=== PATIENT | female | born 1960 | race Hispanic/Latino ===

== ENCOUNTER 2019-01-11 11:30 | Emergency (ER) | payer OTHER ==
[2019-01-11] MEDS ORDERED: KEPPRA 1,000 MG/NS 0.75% 100ML 1,000 MG/100 ML BAG IV ONE (11:50)
[2019-01-11] MEDS ORDERED: NACL 0.9% 1000 ML 1,000 ML IV ONE (11:50)
--- NOTE | 2019-01-11 11:54 | Emergency Department Report ---
ED Seizure HPI - General Stated Complaint: AMS/POSS SEIZURES Time Seen by Provider: 01/11/19 11:50 - History of Present Illness Initial Comments: Patient is a 58-year-old female with history of multiple sclerosis. Patient brought to the emergency room for evaluation of a possible new onset seizure. Patient sister stated that patient was shaking hard and contracted then eyes rolled back for approximately one minutes and then patient went to sleep after that. By time EMS arrived patient is awake alert and oriented 3. Patient continued to be alert and oriented 3 in the ER. Patient stated that she does not remember anything from what happened except that she found herself in an ambulance coming to the ER. Patient does not have any history of seizure before. Patient denied any fever, neck pain, chest pain, shortness of breaths. MD Complaint: seizure - Related Data Previous Rx's Medication Instructions Recorded Last Taken Type Ciprofloxacin HCl [Ciprofloxacin 500 mg PO Q12H #14 tab 01/11/19 Unknown Rx TAB] levETIRAcetam [Keppra TAB] 500 mg PO BID #60 tablet 01/11/19 Unknown Rx Allergies Allergy/AdvReac Type Severity Reaction Status Date / Time Penicillins Allergy Mild Rash Verified 01/11/19 12:20 ED Review of Systems ROS: Stated complaint: AMS/POSS SEIZURES Other details as noted in HPI Comment: All other systems reviewed and negative Constitutional: denies: chills, fever Respiratory: denies: cough, orthopnea, shortness of breath, SOB with exertion, SOB at rest, wheezing Cardiovascular: denies: chest pain, palpitations Gastrointestinal: denies: abdominal pain, nausea, vomiting, diarrhea, constipation, hematemesis, melena, hematochezia Musculoskeletal: denies: back pain Neurological: denies: headache ED Past Medical Hx - Medications Home Medications: Home Medications Medication Instructions Recorded Confirmed Last Taken Type Ciprofloxacin HCl [Ciprofloxacin 500 mg PO Q12H #14 tab 01/11/19 Unknown Rx TAB] levETIRAcetam [Keppra TAB] 500 mg PO BID #60 tablet 01/11/19 Unknown Rx ED Physical Exam - General Limitations: Physical Limitation General appearance: alert, in no apparent distress - Head Head exam: Present: atraumatic, normocephalic, normal inspection - Eye Eye exam: Present: normal appearance, PERRL - ENT ENT exam: Present: normal exam, normal orophraynx, mucous membranes moist - Neck Neck exam: Present: normal inspection, full ROM. Absent: tenderness, meningismus, lymphadenopathy, thyromegaly - Respiratory Respiratory exam: Present: normal lung sounds bilaterally. Absent: respiratory distress, wheezes, rales, rhonchi, stridor, chest wall tenderness, accessory muscle use, decreased breath sounds, prolonged expiratory - Cardiovascular Cardiovascular Exam: Present: regular rate, normal rhythm, normal heart sounds - GI/Abdominal GI/Abdominal exam: Present: soft, normal bowel sounds. Absent: distended, tenderness, guarding, rebound, rigid, organomegaly, mass, bruit, pulsatile mass, hernia - Extremities Exam Extremities exam: Present: normal inspection, full ROM, normal capillary refill. Absent: tenderness, pedal edema, calf tenderness - Back Exam Back exam: Present: normal inspection, full ROM. Absent: tenderness, CVA tend erness (R), CVA tenderness (L), muscle spasm, paraspinal tenderness, vertebral tenderness - Neurological Exam Neurological exam: Present: alert, oriented X3, CN II-XII intact - Psychiatric Psychiatric exam: Present: normal mood. Absent: depressed - Skin Skin exam: Present: warm, intact, normal color ED Course Vital Signs 01/11/19 01/11/19 01/11/19 12:05 12:15 13:00 Temperature 99 F Pulse Rate 76 70 Respiratory 18 17 18 Rate Blood Pressure 134/101 Blood Pressure 132/70 [Left] O2 Sat by Pulse 99 100 99 Oximetry 01/11/19 14:51 Temperature Pulse Rate 81 Respiratory 18 Rate Blood Pressure Blood Pressure 130/61 [Left] O2 Sat by Pulse 99 Oximetry ED Medical Decision Making - Lab Data Result diagrams: 01/11/19 11:57 01/11/19 11:57 - Radiology Data Radiology results: report reviewed Referring Physician: CHIRAG DUNLAP Patient Name: GARCÍA SIFUENTES Date of : 1960 Sex: Female Report Date: 2019-01-11 Report Status: Finalized Findings [facility] [address] [place] [address] Cat Scan Report Signed Patient: GARCÍA SIFUENTES MR#: [id number] : 1960 Acct:[id number] Age/Sex: 58 / F ADM Date: 01/11/19 Loc: ED Attending Dr: Ordering Physician: CHIRAG DUNLAP Date of Service: 01/11/19 Procedure(s): CT head/brain wo con Accession Number(s): [id number] cc: CHIRAG DUNLAP PROCEDURE: CT HEAD/BRAIN WO CON TECHNIQUE: CT images of the brain were obtained without the use of IV contrast. HISTORY: Seizure COMPARISONS: None available FINDINGS: There is minimal patchy white matter low attenuation, likely related to chronic microvascular ischemic changes. There is no CT evidence of intracranial mass, hemorrhage, acute territorial in farction, or hydrocephalus. Intracranial arteries are symmetric in density. Ca lvarium is intact. There is opacification of the right sphenoid sinus. Mastoid air cells are aerate d. IMPRESSION: No CT evidence of acute intracranial abnormality Opacification of the right sphenoid sinus. This document is electronically signed by Dinora Wang MD., January 11 2019 02:31:38 PM ET Transcribed By: [facility] Dictated By: DINORA WANG M.D. Electronically Authenticated By: DINORA WANG M.D. Signed Date/Time: 01/11/19 1433 DD/ 1343 TD/TT: 01/11/19 1343 - Medical Decision Making Patient is a 58-year-old female with history of multiple sclerosis. Patient brought to the emergency room for evaluation of a possible new onset seizure. Patient sister stated that patient was shaking hard and contracted then eyes rolled back for approximately one minutes and then patient went to sleep after that. By time EMS arrived patient is awake alert and oriented 3. Patient continued to be alert and oriented 3 in the ER. Patient stated that she does not remember anything from what happened except that she found herself in an ambulance coming to the ER. Patient does not have any history of seizure before. Patient denied any fever, neck pain, chest pain, shortness of breaths. Patient received Keppra 1 g IV. No seizure observed during ER stay. Patient received a prescription for Keppra 500 mg twice a day. I advised patient to follow-up with our neurologist in the next 2-3 days and to return to the ER if symptoms are not improved. Critical care attestation.: If time is entered above; I have spent that time in minutes in the direct care of this critically ill patient, excluding procedure time. ED Disposition Clinical Impression: New onset seizure Disposition: DC-01 TO HOME OR SELFCARE Is pt being admited?: No Condition: Stable Instructions: New-Onset Seizure in Adults (ED) Prescriptions: Ciprofloxacin HCl [Ciprofloxacin TAB] 500 mg PO Q12H #14 tab levETIRAcetam [Keppra TAB] 500 mg PO BID #60 tablet Referrals: PRIMARY CARE, [Primary Care Provider] - 3-5 Days
[2019-01-11 12:19] LABS: Basophils % (Auto) 0.6 % (0.0-1.8); Eosinophils # (Auto) 0.2 K/mm3 (0.0-0.4); Eosinophils % (Auto) 3.5 % (0.0-4.3); Hematocrit 37.1 % (30.3-42.9); Hemoglobin 12.7 gm/dl (10.1-14.3); Lymphocytes # (Auto) 2.2 K/mm3 (1.2-5.4); Lymphocytes % (Auto) 39.4 % (13.4-35.0); Mean Corpuscular HGB Conc 34 % (30-34); Mean Corpuscular Volume 90 fl (79-97); Monocytes # (Auto) 0.4 K/mm3 (0.0-0.8); Monocytes % (Auto) 7.2 % (0.0-7.3); Platelet Count 302 K/mm3 (140-440); Red Blood Count 4.13 M/mm3 (3.65-5.03); Red Cell Distribution Width 15.2 % (13.2-15.2)
[2019-01-11 12:36] LABS: Alanine Aminotransferase 20 units/L (7-56); Albumin 4.4 g/dL (3.9-5); BUN/Creatinine Ratio 15; Blood Urea Nitrogen 9 mg/dL (7-17); Calcium 9.8 mg/dL (8.4-10.2); Hemolysis Index 19
[2019-01-11 12:37] LABS: Bilirubin,Direct < 0.2 mg/dL (0-0.2)
[2019-01-11] MEDS ORDERED: KEPPRA 1,000 MG in NACL 0.9% 100 ML IV ONE (13:00)
[2019-01-11 13:52] LABS: Bacteria,Urine 4+ /HPF (Negative); Bilirubin,Urine NEG (Negative); Blood,Urine SM (Negative); Color,Urine Yellow (Yellow); Mucus,Urine FEW /HPF; Protein,Urine <15 mg/dL mg/dL (Negative); Urobilinogen,Urine < 2.0 mg/dL (<2.0)
[2019-01-11 13:53] LABS: WBC,Urine > 182.0 /HPF (0.0-6.0)
[2019-01-11 14:03] LABS: Amphetamine Screen,Urine PRESUMPTIVE NEGATIVE; Benzodiazepines Screen,Urine PRESUMPTIVE NEGATIVE; Cannabinoid Screen,Urine PRESUMPTIVE NEGATIVE; Cocaine Screen,Urine PRESUMPTIVE NEGATIVE; Methadone Screen,Urine PRESUMPTIVE NEGATIVE; Opiate Screen,Urine PRESUMPTIVE NEGATIVE
--- NOTE | 2019-01-11 14:33 | Cat Scan Report ---
PROCEDURE: CT HEAD/BRAIN WO CON TECHNIQUE: CT images of the brain were obtained without the use of IV contrast. HISTORY: Seizure COMPARISONS: None available FINDINGS: There is minimal patchy white matter low attenuation, likely related to chronic microvascular ischemi c changes. There is no CT evidence of intracranial mass, hemorrhage, acute territorial infarction, or hydrocephalus. Intracranial arteries are symmetric in density. Calvarium is intact. There is opacifi cation of the right sphenoid sinus. Mastoid air cells are aerated. IMPRESSION: No CT evidence of acute intracranial abnormality Opacification of the right sphenoid sinus. This document is electronically signed by Dinora Wang MD., January 11 2019 02:31:38 PM ET
[2019-01-11 17:13] VITALS: BP 139/64
== END 2019-01-11 17:19 | disposition home or self-care (01) ==
LOC: ED 11:30
DX: R56.9 Unspecified convulsions (principal); Z86.69 Personal history of other diseases of the nervous system and sense organs; Z88.0 Allergy status to penicillin
CPT/HCPCS: 36415; 70450; 80048; 80076; 80307; 81001; 85025; 93005; 93010; 96365; 99285; G0480; J1953; J7030; 80320

== ENCOUNTER 2022-03-10 00:53 | Inpatient (IN) | payer MEDICARE ==
[2022-03-10] MEDS ORDERED: CEFEPIME/NS 1 GM/100 ML 1 GM/100 ML BAG IV ONE (01:00)
[2022-03-10] MEDS ORDERED: SODIUM CHLORIDE 0.9% 1000 ML 1,000 ML IV ONE (01:00)
[2022-03-10] MEDS ORDERED: IPRATROPIUM 0.02% NEBU 2.5 ML IH ONE (01:00)
[2022-03-10] MEDS ORDERED: ALBUTEROL 2.5 MG/3 ML NEBU IH ONE (01:00)
[2022-03-10] MEDS ORDERED: levETIRAcetam 1000 MG/NS 0.75% 1,000 MG/100 ML BAG IV ONE (01:02)
[2022-03-10 01:28] LABS: ABG Base Excess -7.8 mmol/L (-2.0-3.0); ABG HCO3 16.7 mmol/L (20.0-26.0); ABG Methemoglobin 0.3 % (0.0-1.5); ABG Oxygen Saturation 92.3 % (95.0-99.0); ABG PCO2 30.8 mm Hg; ABG PH 7.352 pH Units (7.350-7.450); ABG PO2 59.3 mm Hg (80.0-90.0)
--- NOTE | 2022-03-10 01:34 | XRay Report ---
CHEST 1 VIEW 03/10/2022 12:22 AM INDICATION / CLINICAL INFORMATION: Dyspnea. COMPARISON: None available. FINDINGS: SUPPORT DEVICES: None. HEART / MEDIASTINUM: No significant abnormality. LUNGS / PLEURA: Patchy airspace opacities in the bilateral lungs. No pneumothorax. ADDITIONAL FINDINGS: No significant additional findings. IMPRESSION: 1. Findings concerning for multifocal pneumonia Signer Name: Charlie Venegas DO Signed: 03/10/2022 1:30 AM Workstation Name: [id number]
[2022-03-10 01:39] LABS: Basophils % (Auto) 0.3 % (0.0-1.8); Eosinophils % (Auto) 0.2 % (0.0-4.3); Hematocrit 35.1 % (30.3-42.9); Hemoglobin 11.5 gm/dl (10.1-14.3); Lymphocytes # (Auto) 1.1 K/mm3 (1.2-5.4); Lymphocytes % (Auto) 12.4 % (13.4-35.0); Mean Corpuscular HGB Conc 33 % (30-34); Mean Corpuscular Volume 85 fl (79-97); Monocytes # (Auto) 0.1 K/mm3 (0.0-0.8); Monocytes % (Auto) 1.2 % (0.0-7.3); Platelet Count 258 K/mm3 (140-440); Red Blood Count 4.11 M/mm3 (3.65-5.03); Red Cell Distribution Width 15.4 % (13.2-15.2)
[2022-03-10 01:48] LABS: INR 1.03 (0.87-1.13)
[2022-03-10 01:59] LABS: Alanine Aminotransferase 5 units/L (7-56); Albumin 3.6 g/dL (3.9-5); Blood Urea Nitrogen 11 mg/dL (7-17); Calcium 8.2 mg/dL (8.4-10.2); Hemolysis Index 5
[2022-03-10 02:00] LABS: Creatine Kinase MB 4.6 ng/mL (0.0-4.0)
[2022-03-10 02:31] LABS: BUN/Creatinine Ratio 37
[2022-03-10] MEDS ORDERED: AZITHROMYCIN/NS 500 MG/250 ML 500 MG/250 ML BAG IV ONE (02:42)
[2022-03-10] MEDS ORDERED: SODIUM CHLORIDE 0.9% 1000 ML IV SOLN IV ONE (02:42)
--- NOTE | 2022-03-10 02:46 | Emergency Department Report ---
ED General Adult HPI - General Chief complaint: Altered Mental Status Stated complaint: AMS Time Seen by Provider: 03/10/22 00:59 Source: EMS Mode of arrival: Stretcher Limitations: Physical Limitation - History of Present Illness Initial comments: Brought in on C-pap. When EMS arrived O2 sat on RA 50% and BP 86/50. Saline currently infusing. Non verbal and grunting. -: Gradual, days(s) Location: chest Worsens with: none Associated Symptoms: confusion, cough - Related Data Previous Rx's Medication Instructions Recorded Last Taken Type Ciprofloxacin HCl [Ciprofloxacin 500 mg PO Q12H #14 tab 01/11/19 Unknown Rx TAB] levETIRAcetam [Keppra TAB] 500 mg PO BID #60 tablet 01/11/19 Unknown Rx Allergies Allergy/AdvReac Type Severity Reaction Status Date / Time Penicillins Allergy Mild Rash Verified 01/11/19 12:20 ED Review of Systems ROS: Stated complaint: AMS Other details as noted in HPI Comment: Unobtainable due to pts medical conditions Constitutional: denies: chills, fever Eyes: denies: eye pain, eye discharge, vision change ENT: denies: ear pain, throat pain Respiratory: denies: cough, shortness of breath, wheezing Cardiovascular: denies: chest pain, palpitations Endocrine: no symptoms reported Gastrointestinal: denies: abdominal pain, nausea, diarrhea Genitourinary: denies: urgency, dysuria, discharge Musculoskeletal: denies: back pain, joint swelling, arthralgia Skin: denies: rash, lesions Neurological: denies: headache, weakness, paresthesias Psychiatric: denies: anxiety, depression Hematological/Lymphatic: denies: easy bleeding, easy bruising ED Past Medical Hx - Past Medical History Previous Medical History?: Yes Hx Hypertension: No Hx CVA: No Hx Heart Attack/AMI: No Hx Congestive Heart Failure: No Hx Diabetes: No Hx Deep Vein Thrombosis: No Hx Pulmonary Embolism: No Hx GERD: No Hx Liver Disease: No Hx Renal Disease: No Hx Sickle Cell Disease: No Hx Arthritis: No Hx Headaches / Migraines: No Hx Seizures: No Hx Kidney Stones: No Hx Psychiatric Treatment: No Hx Asthma: No Hx COPD: No Hx Tuberculosis: No Hx Dementia: No Hx HIV: No Additional medical history: MS - Surgical History Past Surgical History?: No Hx Coronary Stent: No Hx Open Heart Surgery: No Hx Pacemaker: No Hx Internal Defibrillator: No Hx Cholecystectomy: No Hx Appendectomy: No Hx Breast Surgery: No - Social History Smoking Status: Unknown if ever smoked - Medications Home Medications: Home Medications Medication Instructions Recorded Confirmed Last Taken Type Ciprofloxacin HCl [Ciprofloxacin 500 mg PO Q12H #14 tab 01/11/19 Unknown Rx TAB] levETIRAcetam [Keppra TAB] 500 mg PO BID #60 tablet 01/11/19 Unknown Rx ED Physical Exam - General Limitations: Physical Limitation General appearance: lethargic, cachectic - Head Head exam: Present: atraumatic, normocephalic - Eye Eye exam: Present: normal appearance - ENT ENT exam: Present: mucous membranes moist - Neck Neck exam: Present: normal inspection - Respiratory Respiratory exam: Present: respiratory distress, rales, rhonchi, decreased breath sounds - Cardiovascular Cardiovascular Exam: Present: regular rate, normal rhythm. Absent: systolic mur mur, diastolic murmur, rubs, gallop - GI/Abdominal GI/Abdominal exam: Present: soft, normal bowel sounds - Extremities Exam Extremities exam: Present: normal inspection - Back Exam Back exam: Present: normal inspection - Expanded Neurological Exam Expanded Best Eye Response (Radames): (3) open to voice Best Motor Response (Sheldon): (6) obeys commands Best Verbal Response (Radames): (4) confused conversation Sheldon Total: 13 - Skin Skin exam: Present: warm, dry, intact, normal color. Absent: rash ED Course Vital Signs 03/10/22 03/10/22 00:54 01:15 Temperature 98 F Pulse Rate 94 H 88 Respiratory 29 H 35 H Rate Blood Pressure 99/58 99/58 O2 Sat by Pulse 100 91 Oximetry ED Medical Decision Making - Lab Data Result diagrams: 03/10/22 01:25 03/10/22 01:25 - EKG Data -: EKG Interpreted by [place] EKG shows normal: sinus rhythm, intervals (prolon qt ) - EKG Data Interpretation: no acute changes - Radiology Data Radiology results: report reviewed, image reviewed - Medical Decision Making work up showed : - Respiratory failure on bipap - sepsis : fluids cultures and abx - hyponatremia : - Pneumonia : cultured and abx - possible seizure : keppra Critical Care Time: Yes Critical care time in (mins) excluding proc time.: 45 Critical care attestation.: If time is entered above; I have spent that time in minutes in the direct care of this critically ill patient, excluding procedure time. Critical Care Time: 45 ED Disposition Clinical Impression: Sepsis, Respiratory failure, Hypoxia, Hyponatremia, CHF (congestive heart failure), Pneumonia, Elevated troponin Disposition: 09 ADMITTED INPATIENT Is pt being admited?: Yes Does the pt Need Aspirin: No Condition: Critical Instructions: Bacterial Pneumonia (ED)
[2022-03-10] MEDS ORDERED: MORPHINE 2 MG/1 ML INJ IV PRN (02:56)
[2022-03-10] MEDS ORDERED: MAGNESIUM HYDROXIDE (MOM) ORAL LIQD UDC PO PRN (02:56)
[2022-03-10] MEDS ORDERED: ONDANSETRON 4 MG/2 ML INJ IV PRN (02:56)
[2022-03-10] MEDS ORDERED: ACETAMINOPHEN 650 MG RECT SUPP PR PRN (02:56)
[2022-03-10] MEDS ORDERED: MORPHINE 4 MG/1 ML INJ IV PRN (02:56)
[2022-03-10] MEDS ORDERED: SODIUM CHLORIDE 0.9% 1000 ML 1,000 ML IV SCH (03:00)
[2022-03-10 03:33] LABS: C-Reactive Protein < 0.30 mg/dL (0.00-1.30); Chol/HDL Ratio 4.11 %
--- NOTE | 2022-03-10 03:40 | History and Physical Report ---
History of Present Illness Date of examination: 03/10/22 Date of admission: 03/10/2022 Chief complaint: Shortness of breath History of present illness: 61-year-old -[place] female with known history of multiple sclerosis and seizure disorder presents to the emergency room today via EMS for evaluation of shortness of breath and difficulty breathing. Upon arrival of EMS patient was said to be having oxygen saturation in the 50s and was also hypotensive with blood pressure of 86/50 mmHg. IV fluid was started in route to the hospital. She was subsequently placed on CPAP. Upon arrival in the emergency room patient was placed on BiPAP. Initial information was obtained from the ER staff was family not available. Information later gathered from family indicates that patient did not receive the COVID immunization. There has been no history of fever or chills, no history of recent travel. No history of recent sick contacts. Work-up in the emergency room today, chest x-ray was concerning for multifocal pneumonia. Labs reveals sodium of 119, potassium 3.1 CO2 of 16 lactic acid of 3.7, troponin of 0.164. Patient has been started on IV fluid and empiric IV antibiotics. Past History Past Medical History: other (Multiple skin wounds he) Past Surgical History: No surgical history Social history: no significant social history (IVDA) Family history: no significant family history (IDT) Medications and Allergies Allergies Allergy/AdvReac Type Severity Reaction Status Date / Time Penicillins Allergy Mild Rash Verified 01/11/19 12:20 Home Medications Medication Instructions Recorded Confirmed Last Taken Type Ciprofloxacin HCl [Ciprofloxacin 500 mg PO Q12H #14 tab 01/11/19 Unknown Rx TAB] levETIRAcetam [Keppra TAB] 500 mg PO BID #60 tablet 01/11/19 Unknown Rx Active Meds: Active Medications Acetaminophen (Acetaminophen 650 Mg Rect Supp) 650 mg MD Q6H PRN PRN Reason: Pain MILD(1-3)/Fever >100.5/ARREAGA Heparin Sodium (Porcine) (Heparin 5,000 Unit/1 Ml Vial) 5,000 unit SUB-Q Q8HR SHAHBAZ Azithromycin (Zithromax/Ns) 500 mg in 250 mls @ 250 mls/hr IV ONCE ONE; Protocol Stop: 03/10/22 03:41 Sodium Chloride (Nacl 0.9% 1000 Ml) 1,000 mls @ 125 mls/hr IV DIRECT SHAHBAZ Ceftriaxone Sodium (Rocephin/Ns 2 Gm/100 Ml) 2 gm in 100 mls @ 200 mls/hr IV Q24HR SHAHBAZ; Protocol Azithromycin (Zithromax/Ns) 500 mg in 250 mls @ 250 mls/hr IV Q24HR SHAHBAZ; Protocol Magnesium Hydroxide (Magnesium Hydroxide (Mom) Oral Liqd Udc) 30 ml PO Q4H PRN PRN Reason: Constipation Morphine Sulfate (Morphine 2 Mg/1 Ml Inj) 2 mg IV Q4H PRN PRN Reason: Pain, Moderate (4-6) Morphine Sulfate (Morphine 4 Mg/1 Ml Inj) 4 mg IV Q4H PRN PRN Reason: Pain , Severe (7-10) Ondansetron HCl (Ondansetron 4 Mg/2 Ml Inj) 4 mg IV Q8H PRN PRN Reason: Nausea And Vomiting Sodium Chloride (Sodium Chloride 0.9% 10 Ml Flush Syringe) 10 ml IV BID SHAHBAZ Sodium Chloride (Sodium Chloride 0.9% 10 Ml Flush Syringe) 10 ml IV PRN PRN PRN Reason: LINE FLUSH Review of Systems ROS unobtainable: due to mental status Exam - Constitutional Vitals: Temp Pulse Resp BP Pulse Ox 98 F 88 35 H 99/58 93 03/10/22 00:54 03/10/22 01:15 03/10/22 01:15 03/10/22 01:15 03/10/22 03:04 General appearance: Present: mild distress, well-nourished - EENT Eyes: Present: PERRL, EOM intact. Absent: scleral icterus ENT: hearing intact, clear oral mucosa, dentition normal - Neck Neck: Present: supple, normal ROM - Respiratory Respiratory effort: normal Respiratory: bilateral: diminished - Cardiovascular Rhythm: regular Heart Sounds: Present: S1 & S2. Absent: gallop, systolic murmur, diastolic murmur, rub, click - Extremities Extremities: no ischemia, pulses intact, pulses symmetrical, No edema, normal temperature, normal color, Full ROM Peripheral Pulses: within normal limits - Integumentary Integumentary: Present: clear, warm, dry, normal turgor. Absent: rash - Musculoskeletal Musculoskeletal: generalized weakness - Psychiatric Psychiatric: cooperative - Neurologic Neurologic: other (Unresponsive) HEART Score - HEART Score Troponin: Troponin T 0.164 ng/mL (0.00-0.029) H* 03/10/22 01:25 Results - Labs CBC & Chem 7: 03/10/22 01:25 03/10/22 01:25 Labs: Abnormal lab results 03/10/22 03/10/22 03/10/22 Range/Units 01:19 01: 01:25 RDW 15.4 H (13.2-15.2) % Lymph % (Auto) 12.4 L (13.4-35.0) % Lymph # (Auto) 1.1 L (1.2-5.4) K/mm3 Seg Neutrophils % 85.9 H (40.0-70.0) % ABG pO2 59.3 L (80.0-90.0) mm Hg ABG HCO3 16.7 L (20.0-26.0) mmol/L ABG O2 Saturation 92.3 L (95.0-99.0) % ABG Base Excess -7.8 L (-2.0-3.0) mmol/L ABG Hemoglobin 11.4 L (12.0-16.0) gm/dl Oxyhemoglobin 90.8 L (95.0-99.0) % Sodium 119 L* (137-145) mmol/L Potassium 3.1 L (3.6-5.0) mmol/L Chloride 88.1 L (98-107) mmol/L Carbon Dioxide 16 L (22-30) mmol/L Creatinine 0.3 L (0.6-1.2) mg/dL Glucose 146 H (65-100) mg/dL Lactic Acid (0.7-2.0) mmol/L Calcium 8.2 L (8.4-10.2) mg/dL Magnesium 1.30 L (1.7-2.3) mg/dL ALT 5 L (7-56) units/L CK-MB (CK-2) (0.0-4.0) ng/mL Troponin T (0.00-0.029) ng/mL NT-Pro-B Natriuret Pep (0-900) pg/mL Total Protein 5.4 L (6.3-8.2) g/dL Albumin 3.6 L (3.9-5) g/dL Cholesterol (50-199) mg/dL LDL Cholesterol Direct (50-130) mg/dL HDL Cholesterol (40-59) mg/dL 03/10/22 03/10/22 03/10/22 Range/Units 01:25 01:25 01:25 RDW (13.2-15.2) % Lymph % (Auto) (13.4-35.0) % Lymph # (Auto) (1.2-5.4) K/mm3 Seg Neutrophils % (40.0-70.0) % ABG pO2 (80.0-90.0) mm Hg ABG HCO3 (20.0-26.0) mmol/L ABG O2 Saturation (95.0-99.0) % ABG Base Excess (-2.0-3.0) mmol/L ABG Hemoglobin (12.0-16.0) gm/dl Oxyhemoglobin (95.0-99.0) % Sodium (137-145) mmol/L Potassium (3.6-5.0) mmol/L Chloride (98-107) mmol/L Carbon Dioxide (22-30) mmol/L Creatinine (0.6-1.2) mg/dL Glucose (65-100) mg/dL Lactic Acid 3.60 H* (0.7-2.0) mmol/L Calcium (8.4-10.2) mg/dL Magnesium (1.7-2.3) mg/dL ALT (7-56) units/L CK-MB (CK-2) 4.6 H (0.0-4.0) ng/mL Troponin T 0.164 H* (0.00-0.029) ng/mL NT-Pro-B Natriuret Pep 33159 H (0-900) pg/mL Total Protein (6.3-8.2) g/dL Albumin (3.9-5) g/dL Cholesterol 259 H (50-199) mg/dL LDL Cholesterol Direct 187 H (50-130) mg/dL HDL Cholesterol 63 H (40-59) mg/dL Assessment and Plan Assessment: 1.Pneumonia 2.Sepsis 3.Lactic Acidosis 4.Hyponatremia 5.Elevated Troponin 6. Metabolic acidosis 7. Hyperlipidemia Plan: 1. Patient admitted into the intensive care unit. Started on empiric IV antibiotics. 2. Patient also placed on IV fluid normal saline. Will monitor chemistry. 3. Consult to nephrology requested. Nephrology has Recommended IV normal saline 4. We will continue to monitor labs. We will schedule for COVID test. 5. Consult placed to infectious disease for further evaluation and recommendations. 6. We will place on seizure precautions. DVT Prophylaxis: SQ Heparin Code Status: Full Code.
[2022-03-10] MEDS ORDERED: SODIUM BICARB 8.4% 50 MEQ/50 ML SYRINGE IV ONE (05:15)
[2022-03-10] MEDS ORDERED: HEPARIN 5,000 UNIT/1 ML VIAL SUB-Q SCH (06:00)
--- NOTE | 2022-03-10 07:32 | Consultation ---
History of Present Illness - Reason for Consult Consult date: 03/10/22 hyponatremia - History of Present Illness The patient is a 61 AAF with known history of multiple sclerosis, Seizure disorder, Paraplegia, bedbound status and debility who presented to [facility] ED 03/10/22 via EMS for evaluation of shortness of breath and difficulty breathing. Patient unable to provide any history at the time of eval. Information gathered from family members at the bedside and prior noted. Upon EMS arrival patient was said to be having oxygen saturation in the 50s and was also hypotensive with blood pressure of 86/50 mmHg. IV fluid was started enroute to the hospital. She was subsequently placed on CPAP. Upon arrival in the emergency room patient was placed on BiPAP. There has been no history of fever, chills, history of recent travel and history of recent sick contacts. Work-up in the emergency; chest x-ray was concerning for multifocal pneumonia. Labs reveals Sodium 119, Potassium 3.1, bicarb 16, Lactic acid 3.7 and Troponin of 0.164. Patient started on IV fluids and empiric IV antibiotics. Nephrology consulted for further evaluation and treatment of Hyponatremia. Past History Past Medical History: other (Multiple skin wounds he) Past Surgical History: No surgical history Social history: no significant social history (IVDA) Family history: no significant family history (IDT) Medications and Allergies Allergies Allergy/AdvReac Type Severity Reaction Status Date / Time Penicillins Allergy Mild Rash Verified 01/11/19 12:20 Home Medications Medication Instructions Recorded Confirmed Last Taken Type Ciprofloxacin HCl [Ciprofloxacin 500 mg PO Q12H #14 tab 01/11/19 Unknown Rx TAB] levETIRAcetam [Keppra TAB] 500 mg PO BID #60 tablet 01/11/19 Unknown Rx Active Meds: Active Medications Acetaminophen (Acetaminophen 650 Mg Rect Supp) 650 mg [place] Q6H PRN PRN Reason: Pain MILD(1-3)/Fever >100.5/ARREAGA Heparin Sodium (Porcine) (Heparin 5,000 Unit/1 Ml Vial) 5,000 unit SUB-Q Q8HR [facility] Last Admin: 03/10/22 06:27 Dose: 5,000 unit Sodium Chloride (Nacl 0.9% 1000 Ml) 1,000 mls @ 125 mls/hr IV DIRECT [facility] Ceftriaxone Sodium (Rocephin/Ns 2 Gm/100 Ml) 2 gm in 100 mls @ 200 mls/hr IV Q24HR [facility]; Protocol Azithromycin (Zithromax/Ns) 500 mg in 250 mls @ 250 mls/hr IV Q24HR [facility]; Protocol Magnesium Hydroxide (Magnesium Hydroxide (Mom) Oral Liqd Udc) 30 ml PO Q4H PRN PRN Reason: Constipation Morphine Sulfate (Morphine 2 Mg/1 Ml Inj) 2 mg IV Q4H PRN PRN Reason: Pain, Moderate (4-6) Morphine Sulfate (Morphine 4 Mg/1 Ml Inj) 4 mg IV Q4H PRN PRN Reason: Pain , Severe (7-10) Ondansetron HCl (Ondansetron 4 Mg/2 Ml Inj) 4 mg IV Q8H PRN PRN Reason: Nausea And Vomiting Sodium Chloride (Sodium Chloride 0.9% 10 Ml Flush Syringe) 10 ml IV BID [facility] Sodium Chloride (Sodium Chloride 0.9% 10 Ml Flush Syringe) 10 ml IV PRN PRN PRN Reason: LINE FLUSH Exam - Vital Signs Vital signs: Vital Signs Temp Pulse Resp BP Pulse Ox 98 F 94 H 29 H 99/58 100 03/10/22 00:54 03/10/22 00:54 03/10/22 00:54 03/10/22 00:54 03/10/22 00:54 Results - Lab Results 03/11/22 05:00 03/11/22 05:00 Most recent lab results ABG pH 7.352 pH Units (7.350-7.450) 03/10/22 01:19 ABG pCO2 30.8 mm Hg 03/10/22 01:19 ABG pO2 59.3 mm Hg (80.0-90.0) L 03/10/22 01:19 ABG HCO3 16.7 mmol/L (20.0-26.0) L 03/10/22 01:19 ABG O2 Saturation 92.3 % (95.0-99.0) L 03/10/22 01:19 Calcium 8.2 mg/dL (8.4-10.2) L 03/10/22 01:25 Magnesium 1.30 mg/dL (1.7-2.3) L 03/10/22 01:25 Assessment and Plan 1. Hyponatremia: Hyponatremia 2/2 SIADH vs volume depletion. Urine and Serum Osm. Continue IV fluids. Monitor for gradual increase in Sodium level. 2. FEN: Anion-gap metabolic acdosis, 2/2 lactic acidosis, Sod bicarb drip, monitor. Replete lytes as needed. Monitor lytes and volume status. 3. Acute Hypoxemic Respiratory Failure / Multifocal Pneumonia / CAP: SPO2 was in the 50s on RA, placed on CPAP, Bipap in the ED. Chest x-ray was concerning for multifocal pneumonia. Patient intubated on 03/10 due to tachypnea and worsening MS. 4. Hypotension / NSTEMI: Presented with hypotension now on low dose pressors-Levophed. Cardiology consulted. IVF. Titrate pressor to maintain MAP above 65. 5. Sepsis: Likley 2/2 Multifocal Pneumonia/CAP. Covid negative. Abx. Monitor. 6. Acute Metabolic Encephalopathy: H/o Seizure Disorder. Now intubated and sedated, on fentanyl gtt. Keppra. Seizure precautions. 7. Elevated D-Dimer: On Therapeutic Lovenox. Per primary. 8. MS with paraplegia: Bedbound status. Supportive care. Subjective: Patient was seen and examined at the bedside. Examination: General appearance: well-developed, appears stated age, no distress, intubated, on vent HEENT: ATNC, pupils equal, no icterus Neck: trachea midline Respiratory: Clear to auscultation Cardiology: regular, S1S2, no murmur Gastrointestinal: soft, normoactive bowel sounds, not tender Integumentary: no obvious rash Neurologic: stuporous Ext: no edema noted
[2022-03-10 08:12] LABS: C-Reactive Protein < 0.03 mg/dL (0.00-1.30)
[2022-03-10] MEDS: AZITHROMYCIN/NS 500 MG/250 ML 500 MG/250 ML BAG IV SCH (09:42)
[2022-03-10] MEDS: ENOXAPARIN 80 MG/0.8 ML INJ SUB-Q SCH ×2 (09:42→22:30)
[2022-03-10] MEDS: POTASSIUM CHLORIDE 10 MEQ 10 MEQ/100 ML BAG IV SCH ×4 (09:42→12:40)
[2022-03-10] MEDS: cefTRIAXone/NS 2 GM/100 ML 2 GM/100 ML BAG IV SCH (09:42)
--- NOTE | 2022-03-10 10:22 | Consultation ---
History of Present Illness Consult date: 03/10/22 History of present illness: 61-year-old -[place] female with a history of multiple sclerosis. Multiple ulcers presenting with shortness of breath. Diagnosed with multifocal bilateral pneumonia with hypoxemia. Past History Past Medical History: other (Multiple skin wounds , multiple sclerosis) Past Surgical History: No surgical history Social history: no significant social history (IVDA) Family history: no significant family history (IDT) Medications and Allergies Allergies Allergy/AdvReac Type Severity Reaction Status Date / Time Penicillins Allergy Mild Rash Verified 01/11/19 12:20 Home Medications Medication Instructions Recorded Confirmed Last Taken Type Ciprofloxacin HCl [Ciprofloxacin 500 mg PO Q12H #14 tab 01/11/19 Unknown Rx TAB] levETIRAcetam [Keppra TAB] 500 mg PO BID #60 tablet 01/11/19 Unknown Rx Active Meds: Active Medications Acetaminophen (Acetaminophen 650 Mg Rect Supp) 650 mg [place] Q6H PRN PRN Reason: Pain MILD(1-3)/Fever >100.5/ARREAGA Enoxaparin Sodium (Enoxaparin 80 Mg/0.8 Ml Inj) 80 mg SUB-Q Q12HR [facility]; Protocol Last Admin: 03/10/22 09:42 Dose: 80 mg Sodium Chloride (Nacl 0.9% 1000 Ml) 1,000 mls @ 125 mls/hr IV DIRECT [facility] Last Admin: 03/10/22 09:41 Dose: 125 mls/hr Ceftriaxone Sodium (Rocephin/Ns 2 Gm/100 Ml) 2 gm in 100 mls @ 200 mls/hr IV Q24HR [facility]; Protocol Last Admin: 03/10/22 09:42 Dose: 200 mls/hr Azithromycin (Zithromax/Ns) 500 mg in 250 mls @ 250 mls/hr IV Q24HR [facility]; Protocol Last Admin: 03/10/22 09:42 Dose: 250 mls/hr Potassium Chloride (Kcl 10meq/100ml) 10 meq in 100 mls @ 100 mls/hr IV Q1H [facility] Stop: 03/10/22 12:59 Last Admin: 03/10/22 09:42 Dose: 100 mls/hr Magnesium Sulfate (Magnesium Sulfate 4gm/100ml) 4 gm in 100 mls @ 25 mls/hr IV ONCE ONE Stop: 03/10/22 17:59 Magnesium Hydroxide (Magnesium Hydroxide (Mom) Oral Liqd Udc) 30 ml PO Q4H PRN PRN Reason: Constipation Morphine Sulfate (Morphine 2 Mg/1 Ml Inj) 2 mg IV Q4H PRN PRN Reason: Pain, Moderate (4-6) Morphine Sulfate (Morphine 4 Mg/1 Ml Inj) 4 mg IV Q4H PRN PRN Reason: Pain , Severe (7-10) Ondansetron HCl (Ondansetron 4 Mg/2 Ml Inj) 4 mg IV Q8H PRN PRN Reason: Nausea And Vomiting Sodium Chloride (Sodium Chloride 0.9% 10 Ml Flush Syringe) 10 ml IV BID [facility] Last Admin: 03/10/22 09:42 Dose: 10 ml Sodium Chloride (Sodium Chloride 0.9% 10 Ml Flush Syringe) 10 ml IV PRN PRN PRN Reason: LINE FLUSH Review of Systems ROS unobtainable: due to mental status Physical Examination Vital Signs Temp Pulse Resp BP Pulse Ox 98 F 94 H 29 H 99/58 100 03/10/22 00:54 03/10/22 00:54 03/10/22 00:54 03/10/22 00:54 03/10/22 00:54 General appearance: no acute distress, other (thin) HEENT: Positive: PERRL Neck: Positive: neck supple, trachea midline. Negative: JVD/HJR Cardiac: Positive: Regular Rate, S1/S2. Negative: S3, S4 Lungs: Positive: Rhonchi Neuro: Positive: Other (See neurology note) Extremities: Absent: edema Results 03/12/22 04:20 03/12/22 04:20 Cardiac Enzymes 03/10/22 03/10/22 03/10/22 Range/Units 01:25 01:25 05:45 AST 16 (5-40) units/L Lactate Dehydrogenase 210 H (91-180) units/L CK-MB (CK-2) 4.6 H (0.0-4.0) ng/mL Coagulation 03/10/22 Range/Units 01:25 PT 14.9 (12.2-14.9) Sec. INR 1.03 (0.87-1.13) Lipids 03/10/22 Range/Units 01:25 Triglycerides 47 (2-149) mg/dL Cholesterol 259 H (50-199) mg/dL HDL Cholesterol 63 H (40-59) mg/dL Cholesterol/HDL Ratio 4.11 % CBC 03/10/22 Range/Units 01:25 WBC 8.9 (4.5-11.0) K/mm3 RBC 4.11 (3.65-5.03) M/mm3 Hgb 11.5 (10.1-14.3) gm/dl Hct 35.1 (30.3-42.9) % Plt Count 258 (140-440) K/mm3 Lymph # (Auto) 1.1 L (1.2-5.4) K/mm3 [place] # (Auto) 0.1 (0.0-0.8) K/mm3 Eos # (Auto) 0.0 (0.0-0.4) K/mm3 Baso # (Auto) 0.0 (0.0-0.1) K/mm3 Comprehensive Metabolic Panel 03/10/22 03/10/22 Range/Units 01:25 05:45 Sodium 119 L* (137-145) mmol/L Potassium 3.1 L (3.6-5.0) mmol/L Chloride 88.1 L (98-107) mmol/L Carbon Dioxide 16 L (22-30) mmol/L BUN 11 (7-17) mg/dL Creatinine 0.3 L (0.6-1.2) mg/dL Glucose 146 H 94 (65-100) mg/dL Calcium 8.2 L (8.4-10.2) mg/dL AST 16 (5-40) units/L ALT 5 L (7-56) units/L Alkaline Phosphatase 61 (35-129) units/L Total Protein 5.4 L (6.3-8.2) g/dL Albumin 3.6 L (3.9-5) g/dL EKG interpretations - Telemetry EKG Rhythm: Sinus Rhythm Assessment and Plan 1. Bilateral multifocal pneumonia 2. Hypoxemic respiratory failure 3. Multiple sclerosis. 4. Multiple wounds Plan. Pulmonary consult for management of bilateral pneumonia and respiratory failure echocardiogram will be done to assess global and regional systolic function.
[2022-03-10] MEDS ORDERED: ETOMIDATE 20 MG/10 ML INJ IV ONE (10:40)
[2022-03-10] MEDS ORDERED: ROCURONIUM 50 MG/5 ML INJ IV SCH (10:40)
[2022-03-10] MEDS ORDERED: NORepinephrine/NS 8 MG-250 ML 8 MG/250 ML INFUS..BTL IV ONE (10:44)
[2022-03-10] MEDS: NORepinephrine/NS 8 MG-250 ML 8 MG/250 ML INFUS..BTL IV SCH (10:45)
[2022-03-10] MEDS: fentaNYL DRIP Premix 2,000 MCG/100 ML BAG IV SCH ×2 (10:45→20:00)
[2022-03-10] MEDS ORDERED: fentaNYL DRIP Premix 2,000 MCG/100 ML BAG IV ONE (10:54)
[2022-03-10] MEDS ORDERED: fentaNYL 100 MCG/2 ML INJ IV PRN (10:58)
--- NOTE | 2022-03-10 10:59 | Procedure Note ---
Date of procedure: 03/10/22 Pre-op diagnosis: Acute encephalopathy; acute hypoxic resp failure Post-op diagnosis: same Procedure: Endotracheal intubation, glidescope RSI Etomidate 30mg IV, Rocuronium, 50mg IV Size 7.5 cm ETT placed, 23cm at the lip Good color change, equal breath sounds bilaterally Anesthesia: other (RSI- Etomidate adn Rocuronium) Surgeon: ANGELICA LUNA Estimated blood loss: none Pathology: none Condition: critical Disposition: ICU
--- NOTE | 2022-03-10 11:02 | Consultation ---
History of Present Illness Consult date: 03/10/22 Requesting physician: UMU LU Reason for consult: hypoxemia History of present illness: 61-year-old -[place] African female with known history of multiple sclerosis and seizure disorder presents to the emergency room today via EMS for evaluation of shortness of breath and difficulty breathing. Upon arrival of EMS patient was said to be having oxygen saturation in the 50s and was also hypotensive with blood pressure of 86/50 mmHg. IV fluid was started in route to the hospital. She was subsequently placed on CPAP. Upon arrival in the emergency room patient was placed on BiPAP. Initial information was obtained from the ER staff was family not available. Information later gathered from family indicates that patient did not receive the COVID immunization. There has been no history of fever or chills, no history of recent travel. No history of recent sick contacts. Work-up in the emergency room today, chest x-ray was concerning for multifocal pneumonia. Labs reveals sodium of 119, potassium 3.1 CO2 of 16 lactic acid of 3.7, troponin of 0.164. Patient has been started on IV fluid and empiric IV antibiotics. A critical care consult was placed. On arrival to ICU, she was hypotensive with worsening SpO2 and mental status. Discussed the deterioration in clinical status with her daughter over the phone and a decision was made to orally intubate the patient, place a central line and initiate vasopressor support. Past History Past Medical History: other (Multiple skin wounds , multiple sclerosis) Past Surgical History: No surgical history Social history: no significant social history (IVDA) Family history: no significant family history (IDT) Medications and Allergies Allergies Allergy/AdvReac Type Severity Reaction Status Date / Time Penicillins Allergy Mild Rash Verified 01/11/19 12:20 Home Medications Medication Instructions Recorded Confirmed Last Taken Type Ciprofloxacin HCl [Ciprofloxacin 500 mg PO Q12H #14 tab 01/11/19 Unknown Rx TAB] levETIRAcetam [Keppra TAB] 500 mg PO BID #60 tablet 01/11/19 Unknown Rx Active Meds: Active Medications Acetaminophen (Acetaminophen 650 Mg Rect Supp) 650 mg CO Q6H PRN PRN Reason: Pain MILD(1-3)/Fever >100.5/ARREAGA Enoxaparin Sodium (Enoxaparin 80 Mg/0.8 Ml Inj) 80 mg SUB-Q Q12HR [facility]; Protocol Last Admin: 03/10/22 09:42 Dose: 80 mg Fentanyl (Fentanyl 100 Mcg/2 Ml Inj) 50 mcg IV Q10MIN PRN PRN Reason: ANALGESIA Sodium Chloride (Nacl 0.9% 1000 Ml) 1,000 mls @ 125 mls/hr IV DIRECT [facility] Last Admin: 03/10/22 09:41 Dose: 125 mls/hr Ceftriaxone Sodium (Rocephin/Ns 2 Gm/100 Ml) 2 gm in 100 mls @ 200 mls/hr IV Q24HR [facility]; Protocol Last Admin: 03/10/22 09:42 Dose: 200 mls/hr Azithromycin (Zithromax/Ns) 500 mg in 250 mls @ 250 mls/hr IV Q24HR [facility]; Protocol Last Admin: 03/10/22 09:42 Dose: 250 mls/hr Potassium Chloride (Kcl 10meq/100ml) 10 meq in 100 mls @ 100 mls/hr IV Q1H [facility] Stop: 03/10/22 12:59 Last Admin: 03/10/22 09:42 Dose: 100 mls/hr Magnesium Sulfate (Magnesium Sulfate 4gm/100ml) 4 gm in 100 mls @ 25 mls/hr IV ONCE ONE Stop: 03/10/22 17:59 Fentanyl Citrate (Fentanyl Drip Premix) 2,000 mcg in 100 mls @ 4.16 mls/hr IV TITR [facility]; Protocol NORepinephrine/NS 8 MG-250 ML (Norepinephrine/Ns 8 Mg-250 Ml (Double Conc)) 8 mg in 250 mls @ 3.75 mls/hr IV TITRATE [facility]; Protocol Magnesium Hydroxide (Magnesium Hydroxide (Mom) Oral Liqd Udc) 30 ml PO Q4H PRN PRN Reason: Constipation Morphine Sulfate (Morphine 2 Mg/1 Ml Inj) 2 mg IV Q4H PRN PRN Reason: Pain, Moderate (4-6) Morphine Sulfate (Morphine 4 Mg/1 Ml Inj) 4 mg IV Q4H PRN PRN Reason: Pain , Severe (7-10) Ondansetron HCl (Ondansetron 4 Mg/2 Ml Inj) 4 mg IV Q8H PRN PRN Reason: Nausea And Vomiting Sodium Chloride (Sodium Chloride 0.9% 10 Ml Flush Syringe) 10 ml IV BID [facility] Last Admin: 03/10/22 09:42 Dose: 10 ml Sodium Chloride (Sodium Chloride 0.9% 10 Ml Flush Syringe) 10 ml IV PRN PRN PRN Reason: LINE FLUSH Review of Systems ROS unobtainable: due to endotracheal tube, due to mental status Physical Examination Vital signs: Vital Signs Temp Pulse Resp BP Pulse Ox 98 F 94 H 29 H 99/58 100 03/10/22 00:54 03/10/22 00:54 03/10/22 00:54 03/10/22 00:54 03/10/22 00:54 Vitals reviewed General appearance: Present: cachectic, other (Intubated and Sedated) - EENT Eyes: Present: PERRL. - Respiratory Respiratory effort: normal Respiratory: bilateral: rhonchi - Cardiovascular Rhythm: regular Heart Sounds: Present: S1 & S2 - Extremities Extremities: no ischemia, pulses intact, pulses symmetrical, abnormal (Bilateral feet drop) Peripheral Pulses: within normal limits - Abdominal General gastrointestinal: soft, non-distended, normal bowel sounds - Integumentary Integumentary: Present: warm, dry - Psychiatric Psychiatric: other (Intubated and Sedated) - Neurologic Neurologic: other (Intubated and Sedated) Results - Laboratory Findings CBC and BMP: 03/11/22 05:00 03/11/22 05:00 ABG ABG pH 7.352 pH Units (7.350-7.450) 03/10/22 01:19 ABG pCO2 30.8 mm Hg 03/10/22 01:19 ABG pO2 59.3 mm Hg (80.0-90.0) L 03/10/22 01:19 ABG O2 Saturation 92.3 % (95.0-99.0) L 03/10/22 01:19 PT/INR, D-dimer PT 14.9 Sec. (12.2-14.9) 03/10/22 01:25 INR 1.03 (0.87-1.13) 03/10/22 01:25 D-Dimer 787.78 ng/mlDDU (0-234) H 03/10/22 05:45 Abnormal lab findings: Abnormal Labs 03/10/22 03/10/22 03/10/22 01:19 01:25 01:25 RDW 15.4 H Lymph % (Auto) 12.4 L Lymph # (Auto) 1.1 L Seg Neutrophils % 85.9 H D-Dimer ABG pO2 59.3 L ABG HCO3 16.7 L ABG O2 Saturation 92.3 L ABG Base Excess -7.8 L ABG Hemoglobin 11.4 L Oxyhemoglobin 90.8 L Sodium 119 L* Potassium 3.1 L Chloride 88.1 L Carbon Dioxide 16 L Creatinine 0.3 L Glucose 146 H Lactic Acid Calcium 8.2 L Magnesium 1.30 L Ferritin ALT 5 L Lactate Dehydrogenase CK-MB (CK-2) Troponin T NT-Pro-B Natriuret Pep Total Protein 5.4 L Albumin 3.6 L Cholesterol LDL Cholesterol Direct HDL Cholesterol 03/10/22 03/10/22 03/10/22 01:25 01:25 01:25 RDW Lymph % (Auto) Lymph # (Auto) Seg Neutrophils % D-Dimer ABG pO2 ABG HCO3 ABG O2 Saturation ABG Base Excess ABG Hemoglobin Oxyhemoglobin Sodium Potassium Chloride Carbon Dioxide Creatinine Glucose Lactic Acid 3.60 H* Calcium Magnesium Ferritin ALT Lactate Dehydrogenase CK-MB (CK-2) 4.6 H Troponin T 0.164 H* NT-Pro-B Natriuret Pep 20727 H Total Protein Albumin Cholesterol 259 H LDL Cholesterol Direct 187 H HDL Cholesterol 63 H 03/10/22 03/10/22 03/10/22 02:43 05:45 05:45 RDW Lymph % (Auto) Lymph # (Auto) Seg Neutrophils % D-Dimer 787.78 H ABG pO2 ABG HCO3 ABG O2 Saturation ABG Base Excess ABG Hemoglobin Oxyhemoglobin Sodium Potassium Chloride Carbon Dioxide Creatinine Glucose Lactic Acid 3.70 H* 3.10 H* Calcium Magnesium Ferritin ALT Lactate Dehydrogenase CK-MB (CK-2) Troponin T NT-Pro-B Natriuret Pep Total Protein Albumin Cholesterol LDL Cholesterol Direct HDL Cholesterol 03/10/22 03/10/22 05:45 05:45 RDW Lymph % (Auto) Lymph # (Auto) Seg Neutrophils % D-Dimer ABG pO2 ABG HCO3 ABG O2 Saturation ABG Base Excess ABG Hemoglobin Oxyhemoglobin Sodium Potassium Chloride Carbon Dioxide Creatinine Glucose Lactic Acid Calcium Magnesium Ferritin 219.2 H ALT Lactate Dehydrogenase 210 H CK-MB (CK-2) Troponin T NT-Pro-B Natriuret Pep Total Protein Albumin Cholesterol LDL Cholesterol Direct HDL Cholesterol - Diagnostic Findings Chest x-ray: image reviewed (Bilateral alveolar infiltrates) Assessment and Plan This is a 61-year-old female with known past medical history of Multiple Sclerosis and seizure disorder admitted for sepsis, Hyponatremia, and acute hypoxic respiratory failure requiring ventilatory support Acute Hypoxemic Respiratory Failure, on MVS Multifocal Pneumonia/CAP- possible aspiration Severe Hyponatremia Hypotension/Sepsis/Lactic Acidosis-Septic shock NSTEMI/Elevated Troponin- probable type 2 ischemia Elevated BNP Hypokalemia R/o COVID Acute Metabolic Encephalopathy H/o Seizure Disorder Elevated D-Dimer Moderate Protein Calorie Malnutrition -Titrate vasopressor support to keep MAP>65 -Serial BMPs, do not correct sodium by more than 8-10 in vickie next 24 hours -Antibiotics for CAP- Ceftriaxone and Azithromycin -Trend temperature curve and WCC -CXR, ABG in am - continue to titrate supplemental oxygen to keep SpO2 90-92% - VAP bundle addressed, aspiration precautions HOB >40 - continue lung protective strategies - continue bronchodilators with pulmonary hygiene per RT - continue accuchecks with glycemic control per SSI (While critically ill target blood glucose of 140-180 mg/dL; avoid hypoglycemia) - sedation prn for target RASS 0 to -1, on Fentanyl infusion - avoid nephrotoxins, renally dose all medications - continue to avoid benzodiazepines, reduce the possibility of delirium - prn analgesia per CPOT score - Maintenance of sleep-wake cycle, avoid delirium - Enteral nutritional support - place NGT, confirm the position and initiate enteric nutritional support - VTE prophylaxis- anticoagulation with therapeutic Enoxaparin. -Get lower extremity dopplers r/o DVT -Stress ulcer prophylaxis- Famotidine -Chronic home medications as clinically indicated -Get surface echocardiography to evaluate LVEF and RVSP. On imaging her cardiac size is normal, yet she has bilateral alveoalr infilatraes and an elevated BNP which could be secondary to heart failure - PT/OT/ROM exercises - mobility, off loading and frequent turning per facility protocol to prevent pressure ulcers - Monitor hemodynamics closely - continue other care per attending / other consultants Advance Care Planning - Disease education data, care plan, diagnoses, and prognosis were thoroughly discussed with patient's daughter Lali Mata over the phone. All questions and concerns were addressed at this time. Patient's family acknowledged understanding and agreement with current care plan. Patient is a FULL code. The high probability of a clinically significant, sudden or life threatening deterioration of the [respiratory, cardiovascular, neurology,renal ] system(s) required my full and direct attention, intervention and personal management. The aggregate critical care time was [76 ] minutes. This time is in addition to time spent performing reported procedures but includes the following: [x] Data Review and interpretation [x] Patient assessment and monitoring of vital signs [x] Documentation [x] Medication orders and management
[2022-03-10] MEDS ORDERED: MINERAL OIL/PETROLATUM, WHITE OPHTH OINT 3.5 GM OU PRN (11:03)
[2022-03-10] MEDS ORDERED: LIP THERAPY VASELINE TP PRN (11:03)
--- NOTE | 2022-03-10 11:27 | Progress Note ---
<KITTY MICHELLE - Last Filed: 03/10/22 18:01> Assessment and Plan Assessment and plan: This is a 61-year-old female with known past medical history of Multiple Sclerosis and seizure disorder admitted for sepsis, Hyponatremia, and acute hypoxic respiratory failure requiring ventilatory support Hospital Course to Date: 03/10: S/p intubation this am due to tachypnea and worsen mental status. Current sedated and stable on the vent. Patient is now on low dose Levophed gtt due to hypotension. Presented with a Na level of 119, on continuous NS at 125ml, repeat BMP pending. Continue IVF hydration and serial Na Q6hrs. Nephrology is also following. Continue empiric IV Abx for CAP, COVID PCR pending, ID consult pending. D-Dimer also elevated, BLE doppler ordered, therapeutic Lovenox initiated. D/W [facility] patient is too unstable for transport at this time, possible CTA chest in the am or once patient is more stable. Cardiology was also consulted for elevated troponin X2, EKG noted with no significant ST changes, 2D echo pending. Resume home AEDs, continue seizure precautions. Monitor and repla ce electrolytes as needed Assessment and Plan #Acute Hypoxemic Respiratory Failure #Multifocal Pneumonia/CAP - Brought in from home by EMS due to SOB and difficulty breathing - SPO2 was in the 50s on RA, placed on CPAP. Then Bipap in the ED - Chest x-ray was concerning for multifocal pneumonia. - Patient intubated on 03/10 due to tachypnea and worsen mental - Vent setting: PRVC-100%,6, 24,400 - ABG per protocol - CCM consulted, appreciate recommendations - On Empiric IV Abx - VAP bundle addressed - Aspiration precaution HOB above 30 - Daily SBT and SAT trials as tolerated - Daily ABG and CXR - Continue SPO2 monitoring for SPO2 goal above 92% - D/W [facility] patient is too unstable for transport at this time, possible CTA chest in the am or once patient is more stable #Hypotension #NSTEMI/Elevated Troponin #Elevated BNP - Presented with hypotension now on low dose pressors-Levophed - Positive troponin X2, EKG noted with no significant ST changed - BNP [id number] - 2D Echo pending - Cardiology consulted, appreciated recommendations - Continue IVF hydration for now - Continue blood pressure monitor per protocol - Titrate pressor to maintain MAP above 65 - On Lovenox BID #Severe Hyponatremia #Hypokalemia - Presented with a Na level of 119, K. 3.1 - Probably due to dehydration - Nephrology consulted, appreciate recommendations - On cont. NS and K and mg repleted - Stat BMP pending - Continue continuous IVF hydration - Serial Na level Q6hrs - Strict intake and output - Avoid nephrotoxic medications - Monitor and replace electrolytes as needed #Sepsis #Multifocal Pneumonia/CAP #Lactic Acidosis #R/o COVID - Brought in from home by EMS due to SOB and difficulty breathing, Hypotensive, with elevated lactic acid, WBCs wnr - Chest x-ray was concerning for multifocal pneumonia - COVID PCR pending - UA/urine and blood cultures pending - CRP unremarkable, procal pending - Empiric IV Abx initiated- Azithro and Rocephin - ID consulted - Continue to trend lactic acid and CBC - F/U on cultures #Acute Metabolic Encephalopathy #H/o Seizure Disorder - probably due to hyponatremia vs infectious process - Now intubated and sedated, on fentanyl gtt - Possible CT head/brain once more stable for transport - Continue NS hydration and IV abx - Titrate sedation for RASS goal 0 to -1 - Resume home Keppra - Daily SAT and SBT per [facility] - Avoid benzodiazepine to reduce the possibility of delirium - PRN Analgesia for CPOT greater than 3 - Maintenance of sleep-wake cycle - Seizure precaution #Elevated D-Dimer - COVID PCR pending - BLE Doppler ordered - on Therapeutic Lovenox for now - D/W [facility] patient is too unstable for transport at this time, possible CTA chest in the am or once patient is more stable #Moderate Protein Calorie Malnutrition - DHT inserted - Initiated enteral nutrition - Nutrition consulted #GI/DVT Prophylaxis - PPI- Pepcid - Lovenox SubQ BID - SCDs to bilateral lower extremities while in bed #Advance Care Planning - Disease education data, care plan, diagnoses, and prognosis were thoroughly discussed with patient's son Homar Bailey via phone #[phone], daughter- Lali Mata, and patient's cousin at the bedside, were also included in the discussion. All questions and concerns were addressed at this time. Patient's family acknowledged understanding and agreement with current care plan. Patient is a FULL code. The high probability of a clinically significant, sudden or life threatening deterioration of the [multiple] system(s) required my full and direct attention, intervention and personal management. The aggregate critical care time was [90] minutes. This time is in addition to time spent performing reported procedures but includes the following: [x] Data Review and interpretation [x] Patient assessment and monitoring of vital signs [x] Documentation [x] Medication orders and management Disposition Plan: ICU Total Time Spent with Patient (Minutes): 90 History Interval history: Patient seen and examined at the bedside. S/p Intubation due to tachypnea, and worsen mental status. Patient now intubated and sedated. On Levophed gtt due to hypotension. Hospitalist Physical - Constitutional Vitals: Temp Pulse Resp BP Pulse Ox 99 F 69 35 H 150/110 94 03/10/22 03:45 03/10/22 04:52 03/10/22 11:02 03/10/22 04:52 03/10/22 04:36 General appearance: Present: cachectic, other (Intubated and Sedated) - EENT Eyes: Present: PERRL - Respiratory Respiratory effort: normal Respiratory: bilateral: rhonchi - Cardiovascular Rhythm: regular Heart Sounds: Present: S1 & S2 - Extremities Extremities: no ischemia, pulses intact, pulses symmetrical, abnormal (Bilateral feet drop) Peripheral Pulses: within normal limits - Abdominal General gastrointestinal: soft, non-distended, normal bowel sounds - Integumentary Integumentary: Present: warm, dry - Psychiatric Psychiatric: other (Intubated and Sedated) - Neurologic Neurologic: other (Intubated and Sedated) - Allied Health Allied health notes reviewed: nursing HEART Score - HEART Score Troponin: Troponin T 0.164 ng/mL (0.00-0.029) H* 03/10/22 01:25 Results - Labs CBC & Chem 7: 03/10/22 01:25 03/10/22 12:24 Labs: Laboratory Last Values WBC 8.9 K/mm3 (4.5-11.0) 03/10/22 01:25 RBC 4.11 M/mm3 (3.65-5.03) 03/10/22 01:25 Hgb 11.5 gm/dl (10.1-14.3) 03/10/22 01:25 Hct 35.1 % (30.3-42.9) 03/10/22 01:25 MCV 85 fl (79-97) 03/10/22 01:25 MCH 28 pg (28-32) 03/10/22 01:25 MCHC 33 % (30-34) 03/10/22 01:25 RDW 15.4 % (13.2-15.2) H 03/10/22 01:25 Plt Count 258 K/mm3 (140-440) 03/10/22 01:25 Lymph % (Auto) 12.4 % (13.4-35.0) L 03/10/22 01:25 [place] % (Auto) 1.2 % (0.0-7.3) 03/10/22 01:25 Eos % (Auto) 0.2 % (0.0-4.3) 03/10/22 01:25 Baso % (Auto) 0.3 % (0.0-1.8) 03/10/22 01:25 Lymph # (Auto) 1.1 K/mm3 (1.2-5.4) L 03/10/22 01:25 [place] # (Auto) 0.1 K/mm3 (0.0-0.8) 03/10/22 01:25 Eos # (Auto) 0.0 K/mm3 (0.0-0.4) 03/10/22 01:25 Baso # (Auto) 0.0 K/mm3 (0.0-0.1) 03/10/22 01:25 Seg Neutrophils % 85.9 % (40.0-70.0) H 03/10/22 01:25 Seg Neutrophils # 7.6 K/mm3 (1.8-7.7) 03/10/22 01:25 PT 14.9 Sec. (12.2-14.9) 03/10/22 01:25 INR 1.03 (0.87-1.13) 03/10/22 01:25 D-Dimer 787.78 ng/mlDDU (0-234) H 03/10/22 05:45 ABG pH 7.352 pH Units (7.350-7.450) 03/10/22 01:19 ABG pCO2 30.8 mm Hg 03/10/22 01:19 ABG pO2 59.3 mm Hg (80.0-90.0) L 03/10/22 01:19 ABG HCO3 16.7 mmol/L (20.0-26.0) L 03/10/22 01:19 ABG O2 Saturation 92.3 % (95.0-99.0) L 03/10/22 01:19 ABG O2 Content 14.5 (0.0-44) 03/10/22 01:19 ABG Base Excess -7.8 mmol/L (-2.0-3.0) L 03/10/22 01:19 ABG Hemoglobin 11.4 gm/dl (12.0-16.0) L 03/10/22 01:19 ABG Carboxyhemoglobin 1.4 % (0.0-5.0) 03/10/22 01:19 ABG Methemoglobin 0.3 % (0.0-1.5) 03/10/22 01:19 Oxyhemoglobin 90.8 % (95.0-99.0) L 03/10/22 01:19 FiO2 100 % 03/10/22 01:19 Sodium 119 mmol/L (137-145) L* 03/10/22 01:25 Potassium 3.1 mmol/L (3.6-5.0) L 03/10/22 01:25 Chloride 88.1 mmol/L (98-107) L 03/10/22 01:25 Carbon Dioxide 16 mmol/L (22-30) L 03/10/22 01:25 Anion Gap 18 mmol/L 03/10/22 01:25 BUN 11 mg/dL (7-17) 03/10/22 01:25 Creatinine 0.3 mg/dL (0.6-1.2) L 03/10/22 01:25 Estimated GFR > 60 ml/min 03/10/22 01:25 BUN/Creatinine Ratio 37 % 03/10/22 01:25 Glucose 94 mg/dL (65-100) 03/10/22 05:45 Lactic Acid 3.10 mmol/L (0.7-2.0) H* 03/10/22 05:45 Calcium 8.2 mg/dL (8.4-10.2) L 03/10/22 01:25 Magnesium 1.30 mg/dL (1.7-2.3) L 03/10/22 01:25 Ferritin 219.2 ng/mL (10.0-200.0) H 03/10/22 05:45 Total Bilirubin 0.50 mg/dL (0.1-1.2) 03/10/22 01:25 AST 16 units/L (5-40) 03/10/22 01:25 ALT 5 units/L (7-56) L 03/10/22 01:25 Alkaline Phosphatase 61 units/L (35-129) 03/10/22 01:25 Lactate Dehydrogenase 210 units/L (91-180) H 03/10/22 05:45 Total Creatine Kinase 128 units/L (30-135) 03/10/22 01:25 Total Creatine Kinase 129 units/L (30-135) 03/10/22 01:25 CK-MB (CK-2) 4.6 ng/mL (0.0-4.0) H 03/10/22 01:25 CK-MB (CK-2) Rel Index 3.5 (0-4) 03/10/22 01:25 Troponin T 0.164 ng/mL (0.00-0.029) H* 03/10/22 01:25 C-Reactive Protein < 0.03 mg/dL (0.00-1.30) 03/10/22 05:45 NT-Pro-B Natriuret Pep 37521 pg/mL (0-900) H 03/10/22 01:25 Total Protein 5.4 g/dL (6.3-8.2) L 03/10/22 01:25 Albumin 3.6 g/dL (3.9-5) L 03/10/22 01:25 Albumin/Globulin Ratio 2.0 % 03/10/22 01:25 Triglycerides 47 mg/dL (2-149) 03/10/22 01:25 Cholesterol 259 mg/dL (50-199) H 03/10/22 01:25 LDL Cholesterol Direct 187 mg/dL (50-130) H 03/10/22 01:25 HDL Cholesterol 63 mg/dL (40-59) H 03/10/22 01:25 Cholesterol/HDL Ratio 4.11 % 03/10/22 01:25 Lipase 15 units/L (13-60) 03/10/22 01:25 SARS-CoV-2 (PCR) Negative (Negative) 03/10/22 09:50 Microbiology: Microbiology 03/10/22 01:25 Peripheral/Venous Blood Culture - Preliminary Culture in Progress 03/10/22 01:59 Peripheral/Venous Blood Culture - Preliminary Culture in Progress Active Medications - Current Medications Current Medications: Generic Name Dose Route Start Last Admin Trade Name Freq PRN Reason Stop Dose Admin Acetaminophen 650 mg 03/10/22 02:56 Acetaminophen 650 Mg Rect Supp OH Q6H PRN Pain MILD(1-3)/Fever >100.5/ARREAGA Enoxaparin Sodium 80 mg 03/10/22 10:00 03/10/22 09:42 Enoxaparin 80 Mg/0.8 Ml Inj SUB-Q 80 mg Q12HR SHAHBAZ Administration Protocol Famotidine 20 mg 03/10/22 22:00 Famotidine 20 Mg/2 Ml Inj IV BID SHAHBAZ Fentanyl 50 mcg 03/10/22 10:58 Fentanyl 100 Mcg/2 Ml Inj IV Q10MIN PRN ANALGESIA Hydrophilic Ointment 1 applic 03/10/22 11:03 Lip Therapy Vaseline TP Q2HR PRN Dry Lips Sodium Chloride 1,000 mls @ 125 mls/hr 03/10/22 03:00 03/10/22 09:41 Nacl 0.9% 1000 Ml IV 125 mls/hr DIRECT SHAHBAZ Administration Ceftriaxone Sodium 2 gm in 100 mls @ 200 mls/hr 03/10/22 10:00 03/10/22 09:42 Rocephin/Ns 2 Gm/100 Ml IV 200 mls/hr Q24HR SHAHBAZ Administration Protocol Azithromycin 500 mg in 250 mls @ 250 mls/hr 03/10/22 10:00 03/10/22 09:42 Zithromax/Ns IV 250 mls/hr Q24HR SHAHBAZ Administration Protocol Potassium Chloride 10 meq in 100 mls @ 100 mls/hr 03/10/22 09:00 03/10/22 09:42 Kcl 10meq/100ml IV 03/10/22 12:59 100 mls/hr Q1H SHAHBAZ Administration Magnesium Sulfate 4 gm in 100 mls @ 25 mls/hr 03/10/22 14:00 Magnesium Sulfate 4gm/100ml IV 03/10/22 17:59 ONCE ONE Fentanyl Citrate 2,000 mcg in 100 mls @ 4.16 mls/hr 03/10/22 11:00 Fentanyl Drip Premix IV TITR SHAHBAZ Protocol 1 MCG/KG/HR NORepinephrine/NS 8 MG-250 ML 8 mg in 250 mls @ 3.75 mls/hr 03/10/22 11:00 Norepinephrine/Ns 8 Mg-250 Ml (Double Conc) IV TITRATE SHAHBAZ Protocol 2 MCG/MIN Magnesium Hydroxide 30 ml 03/10/22 02:56 Magnesium Hydroxide (Mom) Oral Liqd Udc PO Q4H PRN Constipation Morphine Sulfate 2 mg 03/10/22 02:56 Morphine 2 Mg/1 Ml Inj IV Q4H PRN Pain, Moderate (4-6) Morphine Sulfate 4 mg 03/10/22 02:56 Morphine 4 Mg/1 Ml Inj IV Q4H PRN Pain , Severe (7-10) Multi-Ingred Cream/Lotion/Oil/Oint 1 applic 03/10/22 11:03 Mineral Oil/Petrolatum, White Ophth Oint 3.5 Gm OU Q4HR PRN Dry Eye(s) Ondansetron HCl 4 mg 03/10/22 02:56 Ondansetron 4 Mg/2 Ml Inj IV Q8H PRN Nausea And Vomiting Senna/Docusate Sodium 1 tab 03/10/22 22:00 Sennosides/Docusate Sodium 8.6/50 Mg Tab FEEDTUBE BID SHAHBAZ Sodium Chloride 10 ml 03/10/22 10:00 03/10/22 09:42 Sodium Chloride 0.9% 10 Ml Flush Syringe IV 10 ml BID SHAHBAZ Administration Sodium Chloride 10 ml 03/10/22 02:56 Sodium Chloride 0.9% 10 Ml Flush Syringe IV PRN PRN LINE FLUSH <JESUS ARECHIGA - Last Filed: 03/10/22 20:06> Assessment and Plan Assessment and plan: I saw and evaluated the patient. I agree with the findings and the plan of care as documented in the Nurse Practitioner's~note, with the following corrections and additions. Hospitalist Physical - Constitutional Vitals: Temp Pulse Resp BP Pulse Ox 99 F 75 24 89/61 96 03/10/22 03:45 03/10/22 17:50 03/10/22 17:50 03/10/22 17:50 03/10/22 17:50 HEART Score - HEART Score Troponin: Troponin T 0.032 ng/mL (0.00-0.029) H D 03/10/22 12:24 Results - Labs CBC & Chem 7: 03/10/22 01:25 03/10/22 18:00 Labs: Laboratory Last Values WBC 8.9 K/mm3 (4.5-11.0) 03/10/22 01:25 RBC 4.11 M/mm3 (3.65-5.03) 03/10/22 01:25 Hgb 11.5 gm/dl (10.1-14.3) 03/10/22 01:25 Hct 35.1 % (30.3-42.9) 03/10/22 01:25 MCV 85 fl (79-97) 03/10/22 01:25 MCH 28 pg (28-32) 03/10/22 01:25 MCHC 33 % (30-34) 03/10/22 01:25 RDW 15.4 % (13.2-15.2) H 03/10/22 01:25 Plt Count 258 K/mm3 (140-440) 03/10/22 01:25 Lymph % (Auto) 12.4 % (13.4-35.0) L 03/10/22 01:25 [place] % (Auto) 1.2 % (0.0-7.3) 03/10/22 01:25 Eos % (Auto) 0.2 % (0.0-4.3) 03/10/22 01:25 Baso % (Auto) 0.3 % (0.0-1.8) 03/10/22 01:25 Lymph # (Auto) 1.1 K/mm3 (1.2-5.4) L 03/10/22 01:25 [place] # (Auto) 0.1 K/mm3 (0.0-0.8) 03/10/22 01:25 Eos # (Auto) 0.0 K/mm3 (0.0-0.4) 03/10/22 01:25 Baso # (Auto) 0.0 K/mm3 (0.0-0.1) 03/10/22 01:25 Seg Neutrophils % 85.9 % (40.0-70.0) H 03/10/22 01:25 Seg Neutrophils # 7.6 K/mm3 (1.8-7.7) 03/10/22 01:25 PT 14.9 Sec. (12.2-14.9) 03/10/22 01:25 INR 1.03 (0.87-1.13) 03/10/22 01:25 D-Dimer 787.78 ng/mlDDU (0-234) H 03/10/22 05:45 ABG pH 7.315 pH Units (7.350-7.450) L 03/10/22 12:45 ABG pCO2 31.3 mm Hg 03/10/22 12:45 ABG pO2 70.1 mm Hg (80.0-90.0) L 03/10/22 12:45 ABG HCO3 15.6 mmol/L (20.0-26.0) L 03/10/22 12:45 ABG O2 Saturation 93.8 % (95.0-99.0) L 03/10/22 12:45 ABG O2 Content 14.4 (0.0-44) 03/10/22 12:45 ABG Base Excess -9.5 mmol/L (-2.0-3.0) L 03/10/22 12:45 ABG Hemoglobin 11.0 gm/dl (12.0-16.0) L 03/10/22 12:45 ABG Carboxyhemoglobin 1.1 % (0.0-5.0) 03/10/22 12:45 ABG Methemoglobin 0.4 % (0.0-1.5) 03/10/22 12:45 Oxyhemoglobin 92.4 % (95.0-99.0) L 03/10/22 12:45 FiO2 100 % 03/10/22 12:45 Sodium 129 mmol/L (137-145) L 03/10/22 18:00 Potassium 4.3 mmol/L (3.6-5.0) D 03/10/22 18:00 Chloride 101.6 mmol/L (98-107) 03/10/22 18:00 Carbon Dioxide 17 mmol/L (22-30) L 03/10/22 18:00 Anion Gap 15 mmol/L 03/10/22 18:00 BUN 8 mg/dL (7-17) 03/10/22 18:00 Creatinine 0.2 mg/dL (0.6-1.2) L 03/10/22 18:00 Estimated GFR > 60 ml/min 03/10/22 18:00 BUN/Creatinine Ratio 40 % 03/10/22 18:00 Glucose 90 mg/dL (65-100) 03/10/22 18:00 Osmolality 285 Mosm/kg 03/10/22 12:24 Lactic Acid 1.90 mmol/L (0.7-2.0) 03/10/22 18:20 Uric Acid 1.6 mg/dL (3.5-7.6) L 03/10/22 13:15 Calcium 7.0 mg/dL (8.4-10.2) L 03/10/22 18:00 Magnesium 1.30 mg/dL (1.7-2.3) L 03/10/22 01:25 Ferritin 219.2 ng/mL (10.0-200.0) H 03/10/22 05:45 Total Bilirubin 0.50 mg/dL (0.1-1.2) 03/10/22 01:25 AST 16 units/L (5-40) 03/10/22 01:25 ALT 5 units/L (7-56) L 03/10/22 01:25 Alkaline Phosphatase 61 units/L (35-129) 03/10/22 01:25 Lactate Dehydrogenase 210 units/L (91-180) H 03/10/22 05:45 Total Creatine Kinase 901 units/L (30-135) H 03/10/22 12:24 CK-MB (CK-2) 15.3 ng/mL (0.0-4.0) H 03/10/22 12:24 CK-MB (CK-2) Rel Index 1.6 (0-4) 03/10/22 12:24 Troponin T 0.032 ng/mL (0.00-0.029) H D 03/10/22 12:24 C-Reactive Protein < 0.03 mg/dL (0.00-1.30) 03/10/22 05:45 NT-Pro-B Natriuret Pep 06311 pg/mL (0-900) H 03/10/22 01:25 Total Protein 5.4 g/dL (6.3-8.2) L 03/10/22 01:25 Albumin 3.6 g/dL (3.9-5) L 03/10/22 01:25 Albumin/Globulin Ratio 2.0 % 03/10/22 01:25 Triglycerides 47 mg/dL (2-149) 03/10/22 01:25 Cholesterol 259 mg/dL (50-199) H 03/10/22 01:25 LDL Cholesterol Direct 187 mg/dL (50-130) H 03/10/22 01:25 HDL Cholesterol 63 mg/dL (40-59) H 03/10/22 01:25 Cholesterol/HDL Ratio 4.11 % 03/10/22 01:25 Lipase 15 units/L (13-60) 03/10/22 01:25 Urine Color Yellow (Yellow) 03/10/22 18:20 Urine Turbidity Clear (Clear) 03/10/22 18:20 Urine pH 6.0 (5.0-7.0) 03/10/22 18:20 Ur Specific [place] 1.010 (1.003-1.030) 03/10/22 18:20 Urine Protein <15 mg/dl mg/dL (Negative) 03/10/22 18:20 Urine Glucose (UA) Neg mg/dL (Negative) 03/10/22 18:20 Urine Ketones Tr mg/dL (Negative) 03/10/22 18:20 Urine Blood Sm (Negative) 03/10/22 18:20 Urine Nitrite Neg (Negative) 03/10/22 18:20 Urine Bilirubin Neg (Negative) 03/10/22 18:20 Urine Urobilinogen < 2.0 mg/dL (<2.0) 03/10/22 18:20 Ur Leukocyte Esterase Lg (Negative) 03/10/22 18:20 Urine WBC (Auto) 105.0 /HPF (0.0-6.0) H 03/10/22 18:20 Urine RBC (Auto) 2.0 /HPF (0.0-6.0) 03/10/22 18:20 U Epithel Cells (Auto) < 1.0 /HPF (0-13.0) 03/10/22 18:20 Urine Bacteria (Auto) 1+ /HPF (Negative) 03/10/22 18:20 Urine Osmolality 368 Mosm/kg 03/10/22 18:20 Urine Sodium 64 mmol/L 03/10/22 18:20 Urine Opiates Screen Presumptive positive 03/10/22 18:20 Urine Methadone Screen Presumptive negative 03/10/22 18:20 Ur Barbiturates Screen Presumptive negative 03/10/22 18:20 Ur Phencyclidine Scrn Presumptive negative 03/10/22 18:20 Ur Amphetamines Screen Presumptive negative 03/10/22 18:20 U Benzodiazepines Scrn Presumptive negative 03/10/22 18:20 Urine Cocaine Screen Presumptive negative 03/10/22 18:20 U Marijuana (THC) Screen Presumptive negative 03/10/22 18:20 Drugs of Abuse Note Disclamer 03/10/22 18:20 SARS-CoV-2 (PCR) Negative (Negative) 03/10/22 09:50 Microbiology: Microbiology 03/10/22 01:25 Peripheral/Venous Blood Culture - Preliminary Culture in Progress 03/10/22 01:59 Peripheral/Venous Blood Culture - Preliminary Culture in Progress Active Medications - Current Medications Current Medications: Generic Name Dose Route Start Last Admin Trade Name Freq PRN Reason Stop Dose Admin Acetaminophen 650 mg 03/10/22 02:56 Acetaminophen 650 Mg Rect Supp OH Q6H PRN Pain MILD(1-3)/Fever >100.5/ARREAGA Enoxaparin Sodium 80 mg 03/10/22 10:00 03/10/22 09:42 Enoxaparin 80 Mg/0.8 Ml Inj SUB-Q 80 mg Q12HR SHAHBAZ Administration Protocol Famotidine 20 mg 03/10/22 22:00 Famotidine 20 Mg/2 Ml Inj IV BID SHAHBAZ Fentanyl 50 mcg 03/10/22 10:58 Fentanyl 100 Mcg/2 Ml Inj IV Q10MIN PRN ANALGESIA Hydrophilic Ointment 1 applic 03/10/22 11:03 Lip Therapy Vaseline TP Q2HR PRN Dry Lips Ceftriaxone Sodium 2 gm in 100 mls @ 200 mls/hr 03/10/22 10:00 03/10/22 09:42 Rocephin/Ns 2 Gm/100 Ml IV 200 mls/hr Q24HR SHAHBAZ Administration Protocol Azithromycin 500 mg in 250 mls @ 250 mls/hr 03/10/22 10:00 03/10/22 09:42 Zithromax/Ns IV 250 mls/hr Q24HR SHAHBAZ Administration Protocol Fentanyl Citrate 2,000 mcg in 100 mls @ 4.16 mls/hr 03/10/22 11:00 03/10/22 17:10 Fentanyl Drip Premix IV 3 mcg/kg/hr TITR SHAHBAZ 12.48 mls/hr Titration Protocol 1 MCG/KG/HR NORepinephrine/NS 8 MG-250 ML 8 mg in 250 mls @ 3.75 mls/hr 03/10/22 11:00 03/10/22 17:10 Norepinephrine/Ns 8 Mg-250 Ml (Double Conc) IV 6 mcg/min TITRATE SHAHBAZ 11.25 mls/hr Titration Protocol 2 MCG/MIN Sodium Bicarbonate 75 meq/ 1,075 mls @ 75 mls/hr 03/10/22 20:00 Sterile Water IV DIRECT SHAHBAZ Levetiracetam 500 mg 03/10/22 22:00 Levetiracetam 500 Mg/5 Ml Oral Liqd PO BID SHAHBAZ Magnesium Hydroxide 30 ml 03/10/22 02:56 Magnesium Hydroxide (Mom) Oral Liqd Udc PO Q4H PRN Constipation Morphine Sulfate 2 mg 03/10/22 02:56 Morphine 2 Mg/1 Ml Inj IV Q4H PRN Pain, Moderate (4-6) Morphine Sulfate 4 mg 03/10/22 02:56 Morphine 4 Mg/1 Ml Inj IV Q4H PRN Pain , Severe (7-10) Multi-Ingred Cream/Lotion/Oil/Oint 1 applic 03/10/22 11:03 Mineral Oil/Petrolatum, White Ophth Oint 3.5 Gm OU Q4HR PRN Dry Eye(s) Ondansetron HCl 4 mg 03/10/22 02:56 Ondansetron 4 Mg/2 Ml Inj IV Q8H PRN Nausea And Vomiting Rocuronium [place] 50 mg 03/10/22 10:40 03/10/22 10:40 Rocuronium 50 Mg/5 Ml Inj IV 03/10/22 23:00 50 mg ONCE SHAHBAZ Administration Senna/Docusate Sodium 1 tab 03/10/22 22:00 Sennosides/Docusate Sodium 8.6/50 Mg Tab FEEDTUBE BID SHAHBAZ Sodium Chloride 10 ml 03/10/22 10:00 03/10/22 09:42 Sodium Chloride 0.9% 10 Ml Flush Syringe IV 10 ml BID SHAHBAZ Administration Sodium Chloride 10 ml 03/10/22 02:56 Sodium Chloride 0.9% 10 Ml Flush Syringe IV PRN PRN LINE FLUSH Nutrition/Malnutrition Assess - Dietary Evaluation Nutrition/Malnutrition Findings: Nutrition Notes Start: 03/10/22 12:22 Freq: Status: Active Protocol: Document 03/10/22 12:22 RS (Rec: 03/10/22 12:45 RS [id number]) Nutrition Notes Need for Assessment generated from: MD Order Initial or Follow up Assessment Current Diagnosis Sepsis,Heart Failure, Respiratory Failure, Hyperlipidemia Other Pertinent Diagnosis Pneu, Lactic Acidosis, hyponatremia,MS Current Diet NPO Labs/Tests Na:119 K+:3.1 Cl:88.1 CO2:16 Cr:0.3 GLU:146 M.3 NT-Pro-B natriuret Pep: [id number] Pertinent Medications NaCl 0.9% at 125mL/hr KCl at 100mL/hr Fentanyl: 4.16mL/hr Norepinephrine: 3.75mL/hr Height 5 ft 6 in Weight 83.2 kg [place] Body Weight (kg) 59.09 BMI 29.6 Weight change and time frame KATHERINE wt hx Weight Status Overweight Subjective/Other Information MD consult for nutritional intake evaluation and TF. RD unable to assess wt/diet hx from pt d/t SOB and unable to provide information. Electrolytes abnormal along with several other labs. RD noted multiple skin wounds on pt. Pt currently NPO and not on vent. Percent of energy/protein needs met: 0%/0% Burn Absent Trauma Absent GI Symptoms None Current % PO Negligible Minimum of two criteria No physical signs of malnutrition #1 Nutrition Diagnosis Inadequate oral intake Etiology pneu & CHF As Evidenced by Signs and Symptoms pt currently NPO Is patient on ventilator? No Is Patient Ambulatory and/or Out of Bed No REE-([facility]-confined to bed) 1713.168 Calculation Used for Recommendations [facility] Additional Notes Pro: 83-100g/day (1.0-1.2g/kg BW/day not on vent)// 100-166g /day (1.2-2g/kg BW/day on vent ) Fluid needs: 1500-1900mL/day or per MD Nutrition Intervention Change Diet Order: Start TF Nutrition Support: Vital AF 1.2 at 60mL/hr Kcal 1,728 Protein (gm) 108 Fluid (mL) 1,168 Goal #1 Pt will meet at least 75% of kcal/PRO needs via TF Anticipated Discharge Needs: KATHERINE at this time Follow-Up By: 03/12/22 Additional Comments F/U for TF inititation/ tolerance
--- NOTE | 2022-03-10 12:06 | XRay Report ---
CHEST 1 VIEW INDICATION / CLINICAL INFORMATION: ETT placement/OG tube STUDY TIME: 1121 COMPARISON: 03/10/2022 0113 FINDINGS: SUPPORT DEVICES: Feeding tube is now been placed into the area of the duodenum. Endotracheal tube is now seen which extends mildly into the right mainstem bronchus. Withdrawal by approximately 2 cm is s uggested. HEART / MEDIASTINUM: No significant abnormality. LUNGS / PLEURA: Prominent bilateral pulmonary infiltrates/edema are again seen with moderate worsenin g noted. No pneumothorax. ADDITIONAL FINDINGS: No significant additional findings. IMPORTANT FINDING: Time of Communication (DESIGNER/WRITER/CDT): 1100 CDT Licensed Practitioner Receiving Report: CCU nurse Gisselle Signer Name: Sridhar Samuel MD Signed: 03/10/2022 12:01 PM Workstation Name: [id number]
[2022-03-10 13:09] LABS: Creatine Kinase MB 15.3 ng/mL (0.0-4.0)
[2022-03-10 13:13] LABS: BUN/Creatinine Ratio TNR; Blood Urea Nitrogen TNR mg/dL (7-17); Calcium TNR mg/dL (8.4-10.2); Hemolysis Index TNR; Uric Acid TNR mg/dL (3.5-7.6)
[2022-03-10 13:18] LABS: Blood Urea Nitrogen 9 mg/dL (7-17); Calcium 6.9 mg/dL (8.4-10.2); Hemolysis Index 87
[2022-03-10 13:21] LABS: BUN/Creatinine Ratio 45
[2022-03-10 13:33] LABS: ABG Base Excess -9.5 mmol/L (-2.0-3.0); ABG HCO3 15.6 mmol/L (20.0-26.0); ABG Methemoglobin 0.4 % (0.0-1.5); ABG Oxygen Saturation 93.8 % (95.0-99.0); ABG PCO2 31.3 mm Hg; ABG PH 7.315 pH Units (7.350-7.450); ABG PO2 70.1 mm Hg (80.0-90.0)
[2022-03-10] MEDS ORDERED: MAGNESIUM SULFATE 4 GM/100 ML BAG IV ONE (14:00)
--- NOTE | 2022-03-10 14:09 | Procedure Note ---
Date of procedure: 03/10/22 Pre-op diagnosis: Septic Shock Post-op diagnosis: same Procedure: Right Internal Jugular Central Line Placement Patient was evaluated and required Central line placement due to pressor requirement Inform consent obtained from patient's son Homar Bailey via phone #[phone] and daughter-Lali Mata at the bedside who signed for procedure. A time-out was completed verifying correct patient, procedure, site, and positioning. Hand hygiene were performed immediately prior to the procedure and sterile technique was used throughout the procedure. The patient's right neck was prepped with chlorhexidine scrub then draped in a sterile fashion. 1% Lidocaine was used to anesthetize the surrounding skin area. Ultrasound was utilized to localize the right internal jugular vein without difficulty. Then the right internal jugular vein was accessed using ultrasound guidance and a triple lumen catheter was introduced using the Seldinger technique. The catheter threaded smoothly over the guidewire, advanced easily into the vein, and brisk blood return was observed from each lumen. Each lumen were flushed and clamped, then the catheter was sutured in place, a Biopatch was placed at the insertion site, and covered with a sterile dressing. Patient tolerated the procedure well, no signs of any adverse reaction noted. CXR shows tip appearing to be in the mid right atrial area. Withdrawal by approximately 3 cm may be optimal. No evidence of pneumothorax. CVC was pulled back by 3cm, re-sutured, a Biopatch was placed at the insertion site, and covered with a sterile dressing. Patient tolerated the procedure well, no signs of any adverse reaction noted CVC is okay to use. Total Time Spent with Patient (Minutes): 60 minutes Anesthesia: local Surgeon: KITTY MICHELLE Estimated blood loss: minimal Condition: critical Disposition: ICU
[2022-03-10] MEDS ORDERED: POTASSIUM CHLORIDE 20 MEQ PACKET FEEDTUBE ONE (15:00)
--- NOTE | 2022-03-10 15:30 | XRay Report ---
CHEST 1 VIEW INDICATION / CLINICAL INFORMATION: CVC Placement STUDY TIME: 1414 COMPARISON: 1121 FINDINGS: SUPPORT DEVICES: Endotracheal tube now has been withdrawn with tip approximately 1 cm above the rosario a. Feeding tube is again seen in the duodenal area. A new right jugular central line has been inserte d with tip appearing to be in the mid right atrial area. Withdrawal by approximately 3 cm may be opti mal. HEART / MEDIASTINUM: Stable LUNGS / PLEURA: Prominent bilateral pulmonary infiltrates are again seen but are moderately improved. No pneumothorax. ADDITIONAL FINDINGS: No significant additional findings. Signer Name: Sridhar Samuel MD Signed: 03/10/2022 3:25 PM Workstation Name: [id number]
[2022-03-10] MEDS ORDERED: SODIUM BICARBONATE 150 MEQ in WATER FOR INJECTION (PF) 1,000 ML IV SCH (16:00)
--- NOTE | 2022-03-10 17:00 | XRay Report ---
Abdomen single view INDICATION: Abdominal pain IMPRESSION: The weighted enteric feeding tube terminates within the distal stomach near the proximal duodenum. Signer Name: Héctor Rivera MD Signed: 03/10/2022 4:56 PM Workstation Name: [id number]
[2022-03-10 19:00] LABS: Amphetamine Screen,Urine PRESUMPTIVE NEGATIVE; Benzodiazepines Screen,Urine PRESUMPTIVE NEGATIVE; Cannabinoid Screen,Urine PRESUMPTIVE NEGATIVE; Cocaine Screen,Urine PRESUMPTIVE NEGATIVE; Methadone Screen,Urine PRESUMPTIVE NEGATIVE; Opiate Screen,Urine PRESUMPTIVE POSITIVE
[2022-03-10 19:03] LABS: Blood Urea Nitrogen 8 mg/dL (7-17); Hemolysis Index 4
[2022-03-10 19:05] LABS: Osmolality,Urine 368 Mosm/kg
[2022-03-10 19:06] LABS: BUN/Creatinine Ratio 40
[2022-03-10 19:06] LABS: Bilirubin,Urine NEG (Negative); Blood,Urine SM (Negative); Color,Urine Yellow (Yellow); Protein,Urine <15 mg/dL mg/dL (Negative); Urobilinogen,Urine < 2.0 mg/dL (<2.0)
[2022-03-10 19:13] LABS: Bacteria,Urine 1+ /HPF (Negative)
[2022-03-10 21:26] LABS: ABG Base Excess -6.4 mmol/L (-2.0-3.0); ABG HCO3 17.2 mmol/L (20.0-26.0); ABG Methemoglobin 0.3 % (0.0-1.5); ABG Oxygen Saturation 98.5 % (95.0-99.0); ABG PCO2 28.3 mm Hg; ABG PH 7.401 pH Units (7.350-7.450); ABG PO2 116.3 mm Hg (80.0-90.0)
[2022-03-10] MEDS: levETIRAcetam 500 MG/5 ML ORAL LIQD PO SCH (22:30)
[2022-03-10] MEDS: FAMOTIDINE 20 MG/2 ML INJ IV SCH (22:30)
[2022-03-10] MEDS: SENNOSIDES/DOCUSATE SODIUM 8.6/50 MG TAB FEEDTUBE SCH (22:30)
[2022-03-11] MEDS ORDERED: DEXTROSE 50% IN WATER (25GM) 50 ML SYRINGE IV ONE (01:00)
[2022-03-11] MEDS: fentaNYL DRIP Premix 2,000 MCG/100 ML BAG IV SCH ×2 (03:40→15:53)
--- NOTE | 2022-03-11 04:23 | XRay Report ---
CHEST 1 VIEW 03/11/2022 3:12 AM INDICATION / CLINICAL INFORMATION: follow up respiratory failure. COMPARISON: 03/10/2022 FINDINGS: SUPPORT DEVICES: Unchanged. HEART / MEDIASTINUM: Stable. LUNGS / PLEURA: Improved aeration with persistent bilateral airspace opacities No pneumothorax. ADDITIONAL FINDINGS: No significant additional findings. IMPRESSION: 1. Improved aeration with persistent bilateral airspace opacities Signer Name: Charlie Venegas DO Signed: 03/11/2022 4:18 AM Workstation Name: [id number]
[2022-03-11 05:20] LABS: Basophils % (Auto) 0.2 % (0.0-1.8); Eosinophils % (Auto) 0.1 % (0.0-4.3); Hemoglobin 9.6 gm/dl (10.1-14.3); Lymphocytes # (Auto) 1.2 K/mm3 (1.2-5.4); Lymphocytes % (Auto) 8.9 % (13.4-35.0); Mean Corpuscular HGB Conc 33 % (30-34); Mean Corpuscular Volume 85 fl (79-97); Monocytes # (Auto) 0.6 K/mm3 (0.0-0.8); Monocytes % (Auto) 4.2 % (0.0-7.3); Platelet Count 236 K/mm3 (140-440); Red Blood Count 3.44 M/mm3 (3.65-5.03)
[2022-03-11 05:43] LABS: BUN/Creatinine Ratio 30; Blood Urea Nitrogen 6 mg/dL (7-17); Calcium 7.5 mg/dL (8.4-10.2); Hemolysis Index 4
[2022-03-11 06:19] LABS: ABG Base Excess -2.9 mmol/L (-2.0-3.0); ABG HCO3 19.8 mmol/L (20.0-26.0); ABG Methemoglobin 0.5 % (0.0-1.5); ABG PCO2 27.8 mm Hg; ABG PH 7.472 pH Units (7.350-7.450)
[2022-03-11] MEDS: SODIUM BICARBONATE 75 MEQ in WATER FOR INJECTION (PF) 1,000 ML IV SCH ×2 (08:15→23:45)
--- NOTE | 2022-03-11 09:59 | Progress Note ---
Assessment and Plan 1. Bilateral multifocal pneumonia 2. Hypoxemic respiratory failure intubated on mechanical ventilator 3. Equivocal elevation of troponin levels rule out to demand ischemia 4. Septic shock 5. Multiple sclerosis. 6. Multiple wounds Plan. Echocardiogram to assess present global and regional systolic function. Continue IV antibiotics wean off pressor agent as tolerated. Subjective Date of service: 03/11/22 Interval history: Patient opens her eyes she is intubated at this time since last visit has been started on IV pressor agents for septic shock Objective Vital Signs Temp Pulse Pulse Resp BP Pulse Ox 03/11/22 07:26 80 99/64 98 03/11/22 06:30 74 24 93/55 97 03/11/22 06:15 76 24 101/67 97 03/11/22 06:00 93 H 24 101/67 99 03/11/22 05:45 98 H 24 89/56 99 03/11/22 05:30 76 24 89/56 97 03/11/22 05:15 75 24 93/63 99 03/11/22 05:04 76 87/54 98 03/11/22 05:00 74 24 87/54 98 03/11/22 04:45 74 24 85/57 98 03/11/22 04:30 74 24 88/56 98 03/11/22 04:15 76 24 87/50 97 03/11/22 04:00 98 F 81 81 24 94/60 96 03/11/22 03:45 81 24 89/59 97 03/11/22 03:30 75 24 96/64 97 03/11/22 03:15 72 24 91/64 100 03/11/22 03:00 71 24 84/55 100 03/11/22 02:45 72 24 85/56 100 03/11/22 02:30 72 24 89/55 99 03/11/22 02:15 72 24 80/53 99 03/11/22 02:00 72 24 83/57 99 03/11/22 01:45 71 24 87/58 98 03/11/22 01:30 71 24 82/54 98 03/11/22 01:15 70 25 H 85/54 99 03/11/22 01:00 69 23 82/51 98 03/11/22 00:45 69 24 85/53 100 03/11/22 00:30 70 24 75/48 98 03/11/22 00:21 73 75/48 99 03/11/22 00:15 69 24 85/56 100 03/11/22 00:00 97.4 F L 69 69 24 86/57 100 03/10/22 23:45 69 24 84/57 100 03/10/22 23:30 70 24 89/50 99 03/10/22 23:15 71 24 89/49 99 03/10/22 23:00 72 24 94/65 98 03/10/22 22:45 70 24 96/67 99 03/10/22 22:30 71 24 97/67 100 03/10/22 22:15 70 24 97/66 99 03/10/22 22:00 71 24 95/65 98 03/10/22 21:45 71 24 93/67 99 03/10/22 21:30 70 24 97/66 99 03/10/22 21:15 70 24 103/70 100 03/10/22 21:01 70 24 101/71 100 03/10/22 20:45 68 24 98/66 100 03/10/22 20:30 69 24 93/65 99 03/10/22 20:15 68 24 92/63 100 03/10/22 20:00 97.6 F 68 68 24 94/65 99 03/10/22 19:45 68 24 94/63 99 03/10/22 19:30 68 24 90/63 99 03/10/22 19:15 69 24 92/62 99 03/10/22 19:00 69 24 91/59 98 03/10/22 18:45 70 24 88/61 97 03/10/22 18:30 71 24 90/60 97 03/10/22 18:15 72 24 92/66 96 03/10/22 18:00 74 24 92/60 96 03/10/22 17:50 75 24 89/61 96 03/10/22 17:40 76 24 92/61 96 03/10/22 17:30 81 24 88/57 88 03/10/22 17:20 84 18 86/64 92 03/10/22 17:10 74 24 81/59 92 03/10/22 17:00 76 24 73/51 97 03/10/22 16:50 73 24 78/53 95 03/10/22 16:40 72 24 94/64 100 03/10/22 16:30 77 24 90/61 100 03/10/22 16:20 78 25 H 81/60 100 03/10/22 16:14 72 22 93 03/10/22 16:10 71 24 100/70 100 03/10/22 16:05 70 03/10/22 16:00 68 15 89/56 100 03/10/22 15:51 73 90/61 100 03/10/22 15:50 69 18 90/61 99 03/10/22 15:40 67 24 101/70 100 03/10/22 15:30 66 24 98/70 100 03/10/22 15:20 69 24 100/70 100 03/10/22 15:10 70 24 106/72 100 03/10/22 15:00 71 24 97/71 100 03/10/22 14:50 70 24 99/69 100 03/10/22 14:40 71 24 107/71 100 03/10/22 14:30 69 24 103/70 100 03/10/22 14:20 68 23 107/76 100 03/10/22 14:10 70 24 108/70 100 03/10/22 14:00 71 24 94/68 97 03/10/22 13:50 79 16 99/75 96 03/10/22 13:40 71 21 94/65 94 03/10/22 13:30 72 24 96/68 96 03/10/22 13:20 70 24 96/64 96 03/10/22 13:10 67 24 91/65 96 03/10/22 13:01 69 24 155/129 97 03/10/22 12:51 68 24 99/66 97 03/10/22 12:40 68 24 113/80 96 03/10/22 12:31 70 24 95/66 99 03/10/22 12:21 66 24 126/89 98 03/10/22 12:14 68 24 92 03/10/22 12:11 65 24 126/89 99 03/10/22 12:05 68 03/10/22 12:00 68 24 121/82 100 03/10/22 11:50 73 24 130/91 100 03/10/22 11:40 73 24 134/92 99 03/10/22 11:30 74 24 136/87 100 03/10/22 11:20 73 24 123/86 100 03/10/22 11:10 73 24 125/89 100 03/10/22 11:02 35 H 03/10/22 11:00 75 24 109/80 99 03/10/22 10:51 88 24 216/190 84 03/10/22 10:50 74 136/87 100 03/10/22 10:41 79 31 H 99 03/10/22 10:31 74 30 H 79/44 98 03/10/22 10:21 74 29 H 60/40 99 03/10/22 10:11 75 26 H 64/42 99 03/10/22 10:01 70 28 H 59/36 - Physical Examination General: Cachectic, Other (intubated on mechanical ventilator) HEENT: Positive: PERRL Neck: Positive: neck supple, trachea midline. Negative: JVD/HJR Cardiac: Positive: Regular Rate, S1/S2, PMI, Laterally Displaced Lungs: Positive: clear to auscultation, No Wheeze, Rales, Rhonchi Neuro: Positive: Other (See neurology note) Skin: Positive: Other (multiple wounds) Extremities: Absent: edema - Labs and Meds Cardiac Enzymes 03/10/22 Range/Units 12:24 CK-MB (CK-2) 15.3 H (0.0-4.0) ng/mL CBC 03/11/22 Range/Units 05:00 WBC 13.7 H (4.5-11.0) K/mm3 RBC 3.44 L (3.65-5.03) M/mm3 Hgb 9.6 L (10.1-14.3) gm/dl Hct 29.0 L D (30.3-42.9) % Plt Count 236 (140-440) K/mm3 Lymph # (Auto) 1.2 (1.2-5.4) K/mm3 [place] # (Auto) 0.6 (0.0-0.8) K/mm3 Eos # (Auto) 0.0 (0.0-0.4) K/mm3 Baso # (Auto) 0.0 (0.0-0.1) K/mm3 Comprehensive Metabolic Panel 03/10/22 03/10/22 03/10/22 Range/Units 12:24 12:24 12:24 Sodium TNR 124 L 128 L Potassium TNR 3.3 L Chloride TNR 99.0 Carbon Dioxide TNR 11 L BUN TNR 9 Creatinine TNR 0.2 L Glucose TNR 73 Calcium TNR 6.9 L D 03/10/22 03/11/22 Range/Units 18:00 05:00 Sodium 129 L 132 L Potassium 4.3 D 3.7 Chloride 101.6 100.4 Carbon Dioxide 17 L 20 L BUN 8 6 L Creatinine 0.2 L 0.2 L Glucose 90 81 Calcium 7.0 L 7.5 L
--- NOTE | 2022-03-11 10:00 | Progress Note ---
Assessment and Plan 1. Hyponatremia: Hyponatremia 2/2 SIADH vs volume depletion. Continue appropriate IV fluids. Sodium level is improving appropriately. 2. FEN: Anion-gap metabolic acdosis, 2/2 lactic acidosis, Sod bicarb drip, monitor. Replete lytes as needed. Monitor lytes and volume status. 3. Acute Hypoxemic Respiratory Failure / Multifocal Pneumonia / CAP: SPO2 was in the 50s on RA, placed on CPAP, Bipap in the ED. Chest X-ray was concerning for multifocal pneumonia. Patient intubated on 03/10 due to tachypnea and worsening MS. 4. Hypotension / NSTEMI: Presented with hypotension. Levophed, wean as tolerated. Followed Cards. IVF. 5. Sepsis: Likley 2/2 Multifocal Pneumonia/CAP. Covid negative. Abx. Monitor. 6. Acute Metabolic Encephalopathy: H/o Seizure Disorder. Now intubated on vent. Keppra. Seizure precautions. 7. Elevated D-Dimer: On Therapeutic Lovenox. Per primary. 8. MS with paraplegia: Bedbound status. Supportive care. Subjective: Patient was seen and examined at the bedside. Family member at the bedside. Examination: General appearance: well-developed, appears stated age, no distress, intubated, on vent HEENT: ATNC, pupils equal, no icterus Neck: trachea midline Respiratory: Clear to auscultation Cardiology: regular, S1S2, no murmur Gastrointestinal: soft, normoactive bowel sounds, not tender Integumentary: no obvious rash Neurologic: able to follow command, able to move UEs Ext: no edema noted Subjective Date of service: 03/11/22 Objective - Vital Signs Vital signs: Vital Signs - 12hr 03/10/22 03/10/22 03/10/22 22:15 22:30 22:45 Temperature Pulse Rate 70 71 70 Pulse Rate [ From Monitor] Respiratory 24 24 24 Rate Blood Pressure 97/66 97/67 96/67 O2 Sat by Pulse 99 100 99 Oximetry 03/10/22 03/10/22 03/10/22 23:00 23:15 23:30 Temperature Pulse Rate 72 71 70 Pulse Rate [ From Monitor] Respiratory 24 24 24 Rate Blood Pressure 94/65 89/49 89/50 O2 Sat by Pulse 98 99 99 Oximetry 03/10/22 03/11/22 03/11/22 23:45 00:00 00:15 Temperature 97.4 F L Pulse Rate 69 69 69 Pulse Rate [ 69 From Monitor] Respiratory 24 24 24 Rate Blood Pressure 84/57 86/57 85/56 O2 Sat by Pulse 100 100 100 Oximetry 03/11/22 03/11/22 03/11/22 00:21 00:30 00:45 Temperature Pulse Rate 73 70 69 Pulse Rate [ From Monitor] Respiratory 24 24 Rate Blood Pressure 75/48 75/48 85/53 O2 Sat by Pulse 99 98 100 Oximetry 03/11/22 03/11/22 03/11/22 01:00 01:15 01:30 Temperature Pulse Rate 69 70 71 Pulse Rate [ From Monitor] Respiratory 23 25 H 24 Rate Blood Pressure 82/51 85/54 82/54 O2 Sat by Pulse 98 99 98 Oximetry 03/11/22 03/11/22 03/11/22 01:45 02:00 02:15 Temperature Pulse Rate 71 72 72 Pulse Rate [ From Monitor] Respiratory 24 24 24 Rate Blood Pressure 87/58 83/57 80/53 O2 Sat by Pulse 98 99 99 Oximetry 03/11/22 03/11/22 03/11/22 02:30 02:45 03:00 Temperature Pulse Rate 72 72 71 Pulse Rate [ From Monitor] Respiratory 24 24 24 Rate Blood Pressure 89/55 85/56 84/55 O2 Sat by Pulse 99 100 100 Oximetry 03/11/22 03/11/22 03/11/22 03:15 03:30 03:45 Temperature Pulse Rate 72 75 81 Pulse Rate [ From Monitor] Respiratory 24 24 24 Rate Blood Pressure 91/64 96/64 89/59 O2 Sat by Pulse 100 97 97 Oximetry 03/11/22 03/11/22 03/11/22 04:00 04:15 04:30 Temperature 98 F Pulse Rate 81 76 74 Pulse Rate [ 81 From Monitor] Respiratory 24 24 24 Rate Blood Pressure 94/60 87/50 88/56 O2 Sat by Pulse 96 97 98 Oximetry 03/11/22 03/11/22 03/11/22 04:45 05:00 05:04 Temperature Pulse Rate 74 74 76 Pulse Rate [ From Monitor] Respiratory 24 24 Rate Blood Pressure 85/57 87/54 87/54 O2 Sat by Pulse 98 98 98 Oximetry 03/11/22 03/11/22 03/11/22 05:15 05:30 05:45 Temperature Pulse Rate 75 76 98 H Pulse Rate [ From Monitor] Respiratory 24 24 24 Rate Blood Pressure 93/63 89/56 89/56 O2 Sat by Pulse 99 97 99 Oximetry 03/11/22 03/11/22 03/11/22 06:00 06:15 06:30 Temperature Pulse Rate 93 H 76 74 Pulse Rate [ From Monitor] Respiratory 24 24 24 Rate Blood Pressure 101/67 101/67 93/55 O2 Sat by Pulse 99 97 97 Oximetry 03/11/22 07:26 Temperature Pulse Rate 80 Pulse Rate [ From Monitor] Respiratory Rate Blood Pressure 99/64 O2 Sat by Pulse 98 Oximetry - Lab 03/11/22 05:00 03/11/22 05:00 Most recent lab results ABG pH 7.472 pH Units (7.350-7.450) H 03/11/22 Unknown ABG pCO2 27.8 mm Hg 03/11/22 Unknown ABG pO2 83.0 mm Hg (80.0-90.0) 03/11/22 Unknown ABG HCO3 19.8 mmol/L (20.0-26.0) L 03/11/22 Unknown ABG O2 Saturation 97.0 % (95.0-99.0) 03/11/22 Unknown Calcium 7.5 mg/dL (8.4-10.2) L 03/11/22 05:00 Magnesium 1.30 mg/dL (1.7-2.3) L 03/10/22 01:25 Urine Sodium 64 mmol/L 03/10/22 18:20 Medications & Allergies - Medications Allergies/Adverse Reactions: Allergies Penicillins Allergy (Mild, Verified 01/11/19 12:20) Rash . Home Medications: Home Medications Medication Instructions Recorded Confirmed Last Taken Type Ciprofloxacin HCl [Ciprofloxacin 500 mg PO Q12H #14 tab 01/11/19 Unknown Rx TAB] levETIRAcetam [Keppra TAB] 500 mg PO BID #60 tablet 01/11/19 Unknown Rx Active Medications: Generic Name Dose Route Start Last Admin Trade Name Freq PRN Reason Stop Dose Admin Acetaminophen 650 mg 03/10/22 02:56 Acetaminophen 650 Mg Rect Supp MS Q6H PRN Pain MILD(1-3)/Fever >100.5/ARREAGA Enoxaparin Sodium 80 mg 03/10/22 10:00 06/25/22 22:30 Enoxaparin 80 Mg/0.8 Ml Inj SUB-Q 80 mg Q12HR [facility] Administration Protocol Famotidine 20 mg 03/10/22 22:00 03/10/22 22:30 Famotidine 20 Mg/2 Ml Inj IV 20 mg BID SHAHBAZ Administration Fentanyl 50 mcg 03/10/22 10:58 Fentanyl 100 Mcg/2 Ml Inj IV Q10MIN PRN ANALGESIA Hydrophilic Ointment 1 applic 03/10/22 11:03 Lip Therapy Vaseline TP Q2HR PRN Dry Lips Ceftriaxone Sodium 2 gm in 100 mls @ 200 mls/hr 03/10/22 10:00 03/10/22 09:42 Rocephin/Ns 2 Gm/100 Ml IV 200 mls/hr Q24HR [facility] Administration Protocol Azithromycin 500 mg in 250 mls @ 250 mls/hr 03/10/22 10:00 03/10/22 09:42 Zithromax/Ns IV 250 mls/hr Q24HR [facility] Administration Protocol Fentanyl Citrate 2,000 mcg in 100 mls @ 4.16 mls/hr 03/10/22 11:00 03/11/22 03:40 Fentanyl Drip Premix IV 3 mcg/kg/hr TITR SHAHBAZ 12.48 mls/hr Administration Protocol 1 MCG/KG/HR NORepinephrine/NS 8 MG-250 ML 8 mg in 250 mls @ 3.75 mls/hr 03/10/22 11:00 03/11/22 01:40 Norepinephrine/Ns 8 Mg-250 Ml (Double Conc) IV 6 mcg/min TITRATE SHAHBAZ 11.25 mls/hr Titration Protocol 2 MCG/MIN Sodium Bicarbonate 75 meq/ 1,075 mls @ 75 mls/hr 03/10/22 20:00 Sterile Water IV DIRECT SHAHBAZ Levetiracetam 500 mg 03/10/22 22:00 03/10/22 22:30 Levetiracetam 500 Mg/5 Ml Oral Liqd PO 500 mg BID SHAHBAZ Administration Magnesium Hydroxide 30 ml 03/10/22 02:56 Magnesium Hydroxide (Mom) Oral Liqd Udc PO Q4H PRN Constipation Multi-Ingred Cream/Lotion/Oil/Oint 1 applic 03/10/22 11:03 Mineral Oil/Petrolatum, White Ophth Oint 3.5 Gm OU Q4HR PRN Dry Eye(s) Ondansetron HCl 4 mg 06/25/22 02:56 Ondansetron 4 Mg/2 Ml Inj IV Q8H PRN Nausea And Vomiting Senna/Docusate Sodium 1 tab 03/10/22 22:00 03/10/22 22:30 Sennosides/Docusate Sodium 8.6/50 Mg Tab FEEDTUBE 1 tab BID SHAHBAZ Administration Sodium Chloride 10 ml 03/10/22 10:00 03/10/22 22:30 Sodium Chloride 0.9% 10 Ml Flush Syringe IV 10 ml BID SHAHBAZ Administration Sodium Chloride 10 ml 03/10/22 02:56 Sodium Chloride 0.9% 10 Ml Flush Syringe IV PRN PRN LINE FLUSH
--- NOTE | 2022-03-11 10:14 | Progress Note ---
<KITTY MICHELLE - Last Filed: 03/11/22 17:03> Assessment and Plan Assessment and plan: This is a 61-year-old female with known past medical history of Multiple Sclerosis and seizure disorder admitted for sepsis, Hyponatremia, and acute hypoxic respiratory failure requiring ventilatory support Hospital Course to Date: 03/10: S/p intubation this am due to tachypnea and worsen mental status. Current sedated and stable on the vent. Patient is now on low dose Levophed gtt due to hypotension. Presented with a Na level of 119, on continuous NS at 125ml, repeat BMP pending. Continue IVF hydration and serial Na Q6hrs. Nephrology is also following. Continue empiric IV Abx for CAP, COVID PCR pending, ID consult pending. D-Dimer also elevated, BLE doppler ordered, therapeutic Lovenox initiated. D/W CCM patient is too unstable for transport at this time, possible CTA chest in the am or once patient is more stable. Cardiology was also consulted for elevated troponin X2, EKG noted with no significant ST changes, 2D echo pending. Resume home AEDs, continue seizure precautions. Monitor and repla ce electrolytes as needed 03/11: Intubated and low dose fentanyl gtt. Open eyes spontaneously but does not track, not following commands. NA level 132 this am, Nabcarb gtt initiated per Nephro. CT head/brain w/o con ordered to r/o intracranial abnormality. Wean off sedation to better assess mental status. Remains on Levophed gtt, afebrile, but with leukocytosis this am. This am CXR and ABG noted, with significant improvement. D/w CCM, PE less likely will hold off on CTA chest for now. Lovenox switched to Qday. Continue empiric IV Abx, ID consult pending. Assessment and Plan #Acute Hypoxemic Respiratory Failure #Multifocal Pneumonia/CAP - Brought in from home by EMS due to SOB and difficulty breathing - SPO2 was in the 50s on RA, placed on CPAP. Then Bipap in the ED - Chest x-ray was concerning for multifocal pneumonia. - Patient intubated on 03/10 due to tachypnea and worsen mental - Vent setting: PRVC-45%,8, 20,400 - This am ABG noted - CCM consulted, appreciate recommendations - Continue empiric IV Abx - VAP bundle addressed - Aspiration precaution HOB above 30 - Daily SBT and SAT trials as tolerated - Daily ABG and CXR - Continue SPO2 monitoring for SPO2 goal above 92% #Hypotension 2/2 #Septic Shock #NSTEMI/Elevated Troponin #Elevated BNP - Presented with hypotension now on low dose pressors-Levophed - Positive troponin X2, EKG noted with no significant ST changed - BNP 45400 - remains on Levophed gtt this am - 2D Echo pending - Cardiology consulted, appreciated recommendations - Continue blood pressure monitor per protocol - Titrate pressor to maintain MAP above 65 - VTE phroph- Lovenox SubQ #Severe Hyponatremia #Hypokalemia-resolved - Presented with a Na level of 119 - Probably due to dehydration - Nephrology consulted, appreciate recommendations - Na level 132 this am, now on NABcarb gtt per Nephro - Continue to trend BMP - Strict intake and output - Avoid nephrotoxic medications - Monitor and replace electrolytes as needed #Septic Shock #Multifocal Pneumonia/CAP #Leukocytosis #Lactic Acidosis-resolved #R/o COVID - Brought in from home by EMS due to SOB and difficulty breathing, Hypotensive, with elevated lactic acid, WBCs wnr - Chest x-ray was concerning for multifocal pneumonia - COVID PCR negative - UA with elevated Wbcs - urine and blood cultures pending - CRP unremarkable, procal pending - Patient is afebrile, with leukocytosis this am. Lactic less than 2 - Continue empiric IV Abx initiated- Azithro and Rocephin - ID consulted - Continue to CBC - F/U on cultures #Acute Metabolic Encephalopathy #H/o Seizure Disorder - probably due to hyponatremia vs infectious process - Now intubated and sedated, on fentanyl gtt - Open eyes spontaneously, does not track, not following commands - NA level 132 this am, on NaBcarb per Nephro - Wean off sedation to better assess mental status - CT head/Brain ordered - Resumed home Keppra - Avoid benzodiazepine to reduce the possibility of delirium - PRN Analgesia for CPOT greater than 3 - Maintenance of sleep-wake cycle - Seizure precaution #Elevated D-Dimer - COVID PCR negative - BLE Doppler ordered - on Lovenox SubQ #Moderate Protein Calorie Malnutrition - DHT inserted - Initiated enteral nutrition - Nutrition consulted #GI/DVT Prophylaxis - PPI- Pepcid - Lovenox SubQ - SCDs to bilateral lower extremities while in bed #Advance Care Planning - Disease education data, care plan, diagnoses, and prognosis discussed with patient's son Homar Bailey #[phone] at the bedside, were also included in the discussion. All questions and concerns were addressed at this time. Patient's son acknowledged understanding and agreement with current care plan. Patient is a FULL code. The high probability of a clinically significant, sudden or life threatening deterioration of the [multiple] system(s) required my full and direct attention, intervention and personal management. The aggregate critical care time was [60] minutes. This time is in addition to time spent performing reported procedures but includes the following: [x] Data Review and interpretation [x] Patient assessment and monitoring of vital signs [x] Documentation [x] Medication orders and management Disposition Plan: ICU Total Time Spent with Patient (Minutes): 60 History Interval history: Patient seen and examined at the bedside. Intubated and sedated. Open eyes spontaneously but does not tract, does not follow any commands. Remains on Levophed gtt for hypertension, now on sodium Bcarb gtt per Nephro. HARINI overnight Hospitalist Physical - Constitutional Vitals: Temp Pulse Resp BP Pulse Ox 98 F 80 24 99/64 98 03/11/22 04:00 03/11/22 07:26 03/11/22 06:30 03/11/22 07:26 03/11/22 07:26 General appearance: Present: no acute distress, cachectic, other (Intubated and Sedated) - EENT Eyes: Present: PERRL - Respiratory Respiratory effort: normal Respiratory: bilateral: rhonchi - Cardiovascular Rhythm: regular Heart Sounds: Present: S1 & S2 - Extremities Extremities: no ischemia, pulses intact, pulses symmetrical, abnormal (Bilateral feet droop) Peripheral Pulses: within normal limits - Abdominal General gastrointestinal: soft, non-distended, normal bowel sounds - Integumentary Integumentary: Present: clear, warm, dry - Psychiatric Psychiatric: other (Intubated and on sedation) - Neurologic Neurologic: other (Intubated and on low dose sedation. Open eyes spontaneously, does not track, does not follow commands) - Allied Health Allied health notes reviewed: nursing, case management HEART Score - HEART Score Troponin: Troponin T 0.032 ng/mL (0.00-0.029) H D 03/10/22 12:24 Results - Labs CBC & Chem 7: 03/11/22 05:00 03/11/22 05:00 Labs: Laboratory Last Values WBC 13.7 K/mm3 (4.5-11.0) H 03/11/22 05:00 RBC 3.44 M/mm3 (3.65-5.03) L 03/11/22 05:00 Hgb 9.6 gm/dl (10.1-14.3) L 03/11/22 05:00 Hct 29.0 % (30.3-42.9) L D 03/11/22 05:00 MCV 85 fl (79-97) 03/11/22 05:00 MCH 28 pg (28-32) 03/11/22 05:00 MCHC 33 % (30-34) 03/11/22 05:00 RDW 15.0 % (13.2-15.2) 03/11/22 05:00 Plt Count 236 K/mm3 (140-440) 03/11/22 05:00 Lymph % (Auto) 8.9 % (13.4-35.0) L 03/11/22 05:00 [place] % (Auto) 4.2 % (0.0-7.3) 03/11/22 05:00 Eos % (Auto) 0.1 % (0.0-4.3) 03/11/22 05:00 Baso % (Auto) 0.2 % (0.0-1.8) 03/11/22 05:00 Lymph # (Auto) 1.2 K/mm3 (1.2-5.4) 03/11/22 05:00 [place] # (Auto) 0.6 K/mm3 (0.0-0.8) 03/11/22 05:00 Eos # (Auto) 0.0 K/mm3 (0.0-0.4) 03/11/22 05:00 Baso # (Auto) 0.0 K/mm3 (0.0-0.1) 03/11/22 05:00 Seg Neutrophils % 86.6 % (40.0-70.0) H 03/11/22 05:00 Seg Neutrophils # 11.8 K/mm3 (1.8-7.7) H 03/11/22 05:00 PT 14.9 Sec. (12.2-14.9) 03/10/22 01:25 INR 1.03 (0.87-1.13) 03/10/22 01:25 D-Dimer 787.78 ng/mlDDU (0-234) H 03/10/22 05:45 ABG pH 7.472 pH Units (7.350-7.450) H 03/11/22 Unknown ABG pCO2 27.8 mm Hg 03/11/22 Unknown ABG pO2 83.0 mm Hg (80.0-90.0) 03/11/22 Unknown ABG HCO3 19.8 mmol/L (20.0-26.0) L 03/11/22 Unknown ABG O2 Saturation 97.0 % (95.0-99.0) 03/11/22 Unknown ABG O2 Content 13.7 (0.0-44) 03/11/22 Unknown ABG Base Excess -2.9 mmol/L (-2.0-3.0) L 03/11/22 Unknown ABG Hemoglobin 10.1 gm/dl (12.0-16.0) L 03/11/22 Unknown ABG Carboxyhemoglobin 0.8 % (0.0-5.0) 03/11/22 Unknown ABG Methemoglobin 0.5 % (0.0-1.5) 03/11/22 Unknown Oxyhemoglobin 95.7 % (95.0-99.0) 03/11/22 Unknown FiO2 45 % 03/11/22 Unknown Sodium 132 mmol/L (137-145) L 03/11/22 05:00 Potassium 3.7 mmol/L (3.6-5.0) 03/11/22 05:00 Chloride 100.4 mmol/L (98-107) 03/11/22 05:00 Carbon Dioxide 20 mmol/L (22-30) L 03/11/22 05:00 Anion Gap 15 mmol/L 03/11/22 05:00 BUN 6 mg/dL (7-17) L 03/11/22 05:00 Creatinine 0.2 mg/dL (0.6-1.2) L 03/11/22 05:00 Estimated GFR > 60 ml/min 03/11/22 05:00 BUN/Creatinine Ratio 30 % 03/11/22 05:00 Glucose 81 mg/dL (65-100) 03/11/22 05:00 Osmolality 285 Mosm/kg 03/10/22 12:24 Lactic Acid 1.70 mmol/L (0.7-2.0) 03/11/22 05:00 Uric Acid 1.6 mg/dL (3.5-7.6) L 03/10/22 13:15 Calcium 7.5 mg/dL (8.4-10.2) L 03/11/22 05:00 Magnesium 1.30 mg/dL (1.7-2.3) L 03/10/22 01:25 Ferritin 219.2 ng/mL (10.0-200.0) H 03/10/22 05:45 Total Bilirubin 0.50 mg/dL (0.1-1.2) 03/10/22 01:25 AST 16 units/L (5-40) 03/10/22 01:25 ALT 5 units/L (7-56) L 03/10/22 01:25 Alkaline Phosphatase 61 units/L (35-129) 03/10/22 01:25 Lactate Dehydrogenase 210 units/L (91-180) H 03/10/22 05:45 Total Creatine Kinase 901 units/L (30-135) H 03/10/22 12:24 CK-MB (CK-2) 15.3 ng/mL (0.0-4.0) H 03/10/22 12:24 CK-MB (CK-2) Rel Index 1.6 (0-4) 03/10/22 12:24 Troponin T 0.032 ng/mL (0.00-0.029) H D 03/10/22 12:24 C-Reactive Protein < 0.03 mg/dL (0.00-1.30) 03/10/22 05:45 NT-Pro-B Natriuret Pep 18794 pg/mL (0-900) H 03/10/22 01:25 Total Protein 5.4 g/dL (6.3-8.2) L 03/10/22 01:25 Albumin 3.6 g/dL (3.9-5) L 03/10/22 01:25 Albumin/Globulin Ratio 2.0 % 03/10/22 01:25 Triglycerides 47 mg/dL (2-149) 03/10/22 01:25 Cholesterol 259 mg/dL (50-199) H 03/10/22 01:25 LDL Cholesterol Direct 187 mg/dL (50-130) H 03/10/22 01:25 HDL Cholesterol 63 mg/dL (40-59) H 03/10/22 01:25 Cholesterol/HDL Ratio 4.11 % 03/10/22 01:25 Lipase 15 units/L (13-60) 03/10/22 01:25 Urine Color Yellow (Yellow) 03/10/22 18:20 Urine Turbidity Clear (Clear) 03/10/22 18:20 Urine pH 6.0 (5.0-7.0) 03/10/22 18:20 Ur Specific [place] 1.010 (1.003-1.030) 03/10/22 18:20 Urine Protein <15 mg/dl mg/dL (Negative) 03/10/22 18:20 Urine Glucose (UA) Neg mg/dL (Negative) 03/10/22 18:20 Urine Ketones Tr mg/dL (Negative) 03/10/22 18:20 Urine Blood Sm (Negative) 03/10/22 18:20 Urine Nitrite Neg (Negative) 03/10/22 18:20 Urine Bilirubin Neg (Negative) 03/10/22 18:20 Urine Urobilinogen < 2.0 mg/dL (<2.0) 03/10/22 18:20 Ur Leukocyte Esterase Lg (Negative) 03/10/22 18:20 Urine WBC (Auto) 105.0 /HPF (0.0-6.0) H 03/10/22 18:20 Urine RBC (Auto) 2.0 /HPF (0.0-6.0) 03/10/22 18:20 U Epithel Cells (Auto) < 1.0 /HPF (0-13.0) 03/10/22 18:20 Urine Bacteria (Auto) 1+ /HPF (Negative) 03/10/22 18:20 Urine Osmolality 368 Mosm/kg 03/10/22 18:20 Urine Sodium 64 mmol/L 03/10/22 18:20 Urine Opiates Screen Presumptive positive 03/10/22 18:20 Urine Methadone Screen Presumptive negative 03/10/22 18:20 Ur Barbiturates Screen Presumptive negative 03/10/22 18:20 Ur Phencyclidine Scrn Presumptive negative 03/10/22 18:20 Ur Amphetamines Screen Presumptive negative 03/10/22 18:20 U Benzodiazepines Scrn Presumptive negative 03/10/22 18:20 Urine Cocaine Screen Presumptive negative 03/10/22 18:20 U Marijuana (THC) Screen Presumptive negative 03/10/22 18:20 Drugs of Abuse Note Disclamer 03/10/22 18:20 SARS-CoV-2 (PCR) Negative (Negative) 03/10/22 09:50 Microbiology: Microbiology 03/10/22 01:25 Peripheral/Venous Blood Culture - Preliminary NO GROWTH AFTER 24 HOURS 03/10/22 01:59 Peripheral/Venous Blood Culture - Preliminary NO GROWTH AFTER 24 HOURS [place]/IV: Voiding Method External Female Catheter Active Medications - Current Medications Current Medications: Generic Name Dose Route Start Last Admin Trade Name Freq PRN Reason Stop Dose Admin Acetaminophen 650 mg 03/10/22 02:56 Acetaminophen 650 Mg Rect Supp CA Q6H PRN Pain MILD(1-3)/Fever >100.5/ARREAGA Enoxaparin Sodium 80 mg 03/10/22 10:00 03/10/22 22:30 Enoxaparin 80 Mg/0.8 Ml Inj SUB-Q 80 mg Q12HR [facility] Administration Protocol Famotidine 20 mg 03/10/22 22:00 03/10/22 22:30 Famotidine 20 Mg/2 Ml Inj IV 20 mg BID SHAHBAZ Administration Fentanyl 50 mcg 03/10/22 10:58 Fentanyl 100 Mcg/2 Ml Inj IV Q10MIN PRN ANALGESIA Hydrophilic Ointment 1 applic 03/10/22 11:03 Lip Therapy Vaseline TP Q2HR PRN Dry Lips Ceftriaxone Sodium 2 gm in 100 mls @ 200 mls/hr 03/10/22 10:00 03/10/22 09:42 Rocephin/Ns 2 Gm/100 Ml IV 200 mls/hr Q24HR SHAHBAZ Administration Protocol Azithromycin 500 mg in 250 mls @ 250 mls/hr 03/10/22 10:00 03/10/22 09:42 Zithromax/Ns IV 250 mls/hr Q24HR [facility] Administration Protocol Fentanyl Citrate 2,000 mcg in 100 mls @ 4.16 mls/hr 03/10/22 11:00 03/11/22 03:40 Fentanyl Drip Premix IV 3 mcg/kg/hr TITR SHAHBAZ 12.48 mls/hr Administration Protocol 1 MCG/KG/HR NORepinephrine/NS 8 MG-250 ML 8 mg in 250 mls @ 3.75 mls/hr 03/10/22 11:00 03/11/22 01:40 Norepinephrine/Ns 8 Mg-250 Ml (Double Conc) IV 6 mcg/min TITRATE SHAHBAZ 11.25 mls/hr Titration Protocol 2 MCG/MIN Sodium Bicarbonate 75 meq/ 1,075 mls @ 75 mls/hr 03/10/22 20:00 Sterile Water IV DIRECT SHAHBAZ Levetiracetam 500 mg 03/10/22 22:00 03/10/22 22:30 Levetiracetam 500 Mg/5 Ml Oral Liqd PO 500 mg BID SHAHBAZ Administration Magnesium Hydroxide 30 ml 03/10/22 02:56 Magnesium Hydroxide (Mom) Oral Liqd Udc PO Q4H PRN Constipation Multi-Ingred Cream/Lotion/Oil/Oint 1 applic 03/10/22 11:03 Mineral Oil/Petrolatum, White Ophth Oint 3.5 Gm OU Q4HR PRN Dry Eye(s) Ondansetron HCl 4 mg 03/10/22 02:56 Ondansetron 4 Mg/2 Ml Inj IV Q8H PRN Nausea And Vomiting Senna/Docusate Sodium 1 tab 03/10/22 22:00 03/10/22 22:30 Sennosides/Docusate Sodium 8.6/50 Mg Tab FEEDTUBE 1 tab BID SHAHBAZ Administration Sodium Chloride 10 ml 03/10/22 10:00 03/10/22 22:30 Sodium Chloride 0.9% 10 Ml Flush Syringe IV 10 ml BID SHAHBAZ Administration Sodium Chloride 10 ml 03/10/22 02:56 Sodium Chloride 0.9% 10 Ml Flush Syringe IV PRN PRN LINE FLUSH Nutrition/Malnutrition Assess - Dietary Evaluation Nutrition/Malnutrition Findings: Nutrition Notes Start: 03/10/22 12:22 Freq: Status: Active Protocol: Document 03/10/22 12:22 RS (Rec: 03/10/22 12:45 RS [id number]) Nutrition Notes Need for Assessment generated from: MD Order Initial or Follow up Assessment Current Diagnosis Sepsis,Heart Failure, Respiratory Failure, Hyperlipidemia Other Pertinent Diagnosis Pneu, Lactic Acidosis, hyponatremia,MS Current Diet NPO Labs/Tests Na:119 K+:3.1 Cl:88.1 CO2:16 Cr:0.3 GLU:146 M.3 NT-Pro-B natriuret Pep: [id number] Pertinent Medications NaCl 0.9% at 125mL/hr KCl at 100mL/hr Fentanyl: 4.16mL/hr Norepinephrine: 3.75mL/hr Height 5 ft 6 in Weight 83.2 kg [place] Body Weight (kg) 59.09 BMI 29.6 Weight change and time frame KATHERINE wt hx Weight Status Overweight Subjective/Other Information MD consult for nutritional intake evaluation and TF. RD unable to assess wt/diet hx from pt d/t SOB and unable to provide information. Electrolytes abnormal along with several other labs. RD noted multiple skin wounds on pt. Pt currently NPO and not on vent. Percent of energy/protein needs met: 0%/0% Burn Absent Trauma Absent GI Symptoms None Current % PO Negligible Minimum of two criteria No physical signs of malnutrition #1 Nutrition Diagnosis Inadequate oral intake Etiology pneu & CHF As Evidenced by Signs and Symptoms pt currently NPO Is patient on ventilator? No Is Patient Ambulatory and/or Out of Bed No REE-([facility]-confined to bed) 1713.168 Calculation Used for Recommendations [facility] Additional Notes Pro: 83-100g/day (1.0-1.2g/kg BW/day not on vent)// 100-166g /day (1.2-2g/kg BW/day on vent ) Fluid needs: 1500-1900mL/day or per MD Nutrition Intervention Change Diet Order: Start TF Nutrition Support: Vital AF 1.2 at 60mL/hr Kcal 1,728 Protein (gm) 108 Fluid (mL) 1,168 Goal #1 Pt will meet at least 75% of kcal/PRO needs via TF Anticipated Discharge Needs: KATHERINE at this time Follow-Up By: 03/12/22 Additional Comments F/U for TF inititation/ tolerance <JESUS ARECHIGA - Last Filed: 03/12/22 07:24> Assessment and Plan Assessment and plan: I saw and evaluated the patient. I agree with the findings and the plan of care as documented in the Nurse Practitioner's~note, with the following corrections and additions. Hospitalist Physical - Constitutional Vitals: Temp Pulse Resp BP Pulse Ox 98 F 95 H 16 96/70 97 03/11/22 04:00 03/12/22 07:00 03/12/22 07:00 03/12/22 07:00 03/12/22 07:00 HEART Score - HEART Score Troponin: Troponin T 0.032 ng/mL (0.00-0.029) H D 03/10/22 12:24 Results - Labs CBC & Chem 7: 03/12/22 04:20 03/12/22 04:20 Labs: Laboratory Last Values WBC 13.6 K/mm3 (4.5-11.0) H 03/12/22 04:20 RBC 3.11 M/mm3 (3.65-5.03) L 03/12/22 04:20 Hgb 8.7 gm/dl (10.1-14.3) L 03/12/22 04:20 Hct 26.1 % (30.3-42.9) L 03/12/22 04:20 MCV 84 fl (79-97) 03/12/22 04:20 MCH 28 pg (28-32) 03/12/22 04:20 MCHC 33 % (30-34) 03/12/22 04:20 RDW 15.2 % (13.2-15.2) 03/12/22 04:20 Plt Count 204 K/mm3 (140-440) 03/12/22 04:20 Lymph % (Auto) 8.9 % (13.4-35.0) L 03/11/22 05:00 [place] % (Auto) 4.2 % (0.0-7.3) 03/11/22 05:00 Eos % (Auto) 0.1 % (0.0-4.3) 03/11/22 05:00 Baso % (Auto) 0.2 % (0.0-1.8) 03/11/22 05:00 Lymph # (Auto) 1.2 K/mm3 (1.2-5.4) 03/11/22 05:00 [place] # (Auto) 0.6 K/mm3 (0.0-0.8) 03/11/22 05:00 Eos # (Auto) 0.0 K/mm3 (0.0-0.4) 03/11/22 05:00 Baso # (Auto) 0.0 K/mm3 (0.0-0.1) 03/11/22 05:00 Seg Neutrophils % 86.6 % (40.0-70.0) H 03/11/22 05:00 Seg Neutrophils # 11.8 K/mm3 (1.8-7.7) H 03/11/22 05:00 PT 14.9 Sec. (12.2-14.9) 03/10/22 01:25 INR 1.03 (0.87-1.13) 03/10/22 01:25 D-Dimer 787.78 ng/mlDDU (0-234) H 03/10/22 05:45 ABG pH 7.482 pH Units (7.350-7.450) H 03/12/22 04:10 ABG pCO2 32.1 mm Hg 03/12/22 04:10 ABG pO2 65.5 mm Hg (80.0-90.0) L 03/12/22 04:10 ABG HCO3 23.4 mmol/L (20.0-26.0) 03/12/22 04:10 ABG O2 Saturation 97.1 % (95.0-99.0) 03/12/22 04:10 ABG O2 Content 11.3 (0.0-44) 03/12/22 04:10 ABG Base Excess 0.2 mmol/L (-2.0-3.0) 03/12/22 04:10 ABG Hemoglobin 8.4 gm/dl (12.0-16.0) L 03/12/22 04:10 ABG Carboxyhemoglobin 1.3 % (0.0-5.0) 03/12/22 04:10 ABG Methemoglobin 0.4 % (0.0-1.5) 03/12/22 04:10 Oxyhemoglobin 95.5 % (95.0-99.0) 03/12/22 04:10 FiO2 35 % 03/12/22 04:10 Sodium 128 mmol/L (137-145) L 03/12/22 04:20 Potassium 3.2 mmol/L (3.6-5.0) L 03/12/22 04:20 Chloride 93.9 mmol/L (98-107) L 03/12/22 04:20 Carbon Dioxide 23 mmol/L (22-30) 03/12/22 04:20 Anion Gap 14 mmol/L 03/12/22 04:20 BUN 4 mg/dL (7-17) L 03/12/22 04:20 Creatinine 0.2 mg/dL (0.6-1.2) L 03/12/22 04:20 Estimated GFR > 60 ml/min 03/12/22 04:20 BUN/Creatinine Ratio 20 % 03/12/22 04:20 Glucose 103 mg/dL (65-100) H 03/12/22 04:20 Osmolality 285 Mosm/kg 03/10/22 12:24 Lactic Acid 1.70 mmol/L (0.7-2.0) 03/11/22 05:00 Uric Acid 1.6 mg/dL (3.5-7.6) L 03/10/22 13:15 Calcium 7.4 mg/dL (8.4-10.2) L 03/12/22 04:20 Phosphorus 1.10 mg/dL (2.5-4.5) L 03/12/22 04:20 Magnesium 2.40 mg/dL (1.7-2.3) H 03/12/22 04:20 Ferritin 219.2 ng/mL (10.0-200.0) H 03/10/22 05:45 Total Bilirubin 0.50 mg/dL (0.1-1.2) 03/10/22 01:25 AST 16 units/L (5-40) 03/10/22 01:25 ALT 5 units/L (7-56) L 03/10/22 01:25 Alkaline Phosphatase 61 units/L (35-129) 03/10/22 01:25 Lactate Dehydrogenase 210 units/L (91-180) H 03/10/22 05:45 Total Creatine Kinase 901 units/L (30-135) H 03/10/22 12:24 CK-MB (CK-2) 15.3 ng/mL (0.0-4.0) H 03/10/22 12:24 CK-MB (CK-2) Rel Index 1.6 (0-4) 03/10/22 12:24 Troponin T 0.032 ng/mL (0.00-0.029) H D 03/10/22 12:24 C-Reactive Protein < 0.03 mg/dL (0.00-1.30) 03/10/22 05:45 NT-Pro-B Natriuret Pep 90305 pg/mL (0-900) H 03/10/22 01:25 Total Protein 5.4 g/dL (6.3-8.2) L 03/10/22 01:25 Albumin 3.6 g/dL (3.9-5) L 03/10/22 01:25 Albumin/Globulin Ratio 2.0 % 03/10/22 01:25 Triglycerides 47 mg/dL (2-149) 03/10/22 01:25 Cholesterol 259 mg/dL (50-199) H 03/10/22 01:25 LDL Cholesterol Direct 187 mg/dL (50-130) H 03/10/22 01:25 HDL Cholesterol 63 mg/dL (40-59) H 03/10/22 01:25 Cholesterol/HDL Ratio 4.11 % 03/10/22 01:25 Lipase 15 units/L (13-60) 03/10/22 01:25 Procalcitonin 3.92 ng/mL (<0.15) 03/10/22 05:45 Urine Color Yellow (Yellow) 03/10/22 18:20 Urine Turbidity Clear (Clear) 03/10/22 18:20 Urine pH 6.0 (5.0-7.0) 03/10/22 18:20 Ur Specific [place] 1.010 (1.003-1.030) 03/10/22 18:20 Urine Protein <15 mg/dl mg/dL (Negative) 03/10/22 18:20 Urine Glucose (UA) Neg mg/dL (Negative) 03/10/22 18:20 Urine Ketones Tr mg/dL (Negative) 03/10/22 18:20 Urine Blood Sm (Negative) 03/10/22 18:20 Urine Nitrite Neg (Negative) 03/10/22 18:20 Urine Bilirubin Neg (Negative) 03/10/22 18:20 Urine Urobilinogen < 2.0 mg/dL (<2.0) 03/10/22 18:20 Ur Leukocyte Esterase Lg (Negative) 03/10/22 18:20 Urine WBC (Auto) 105.0 /HPF (0.0-6.0) H 03/10/22 18:20 Urine RBC (Auto) 2.0 /HPF (0.0-6.0) 03/10/22 18:20 U Epithel Cells (Auto) < 1.0 /HPF (0-13.0) 03/10/22 18:20 Urine Bacteria (Auto) 1+ /HPF (Negative) 03/10/22 18:20 Urine Osmolality 368 Mosm/kg 03/10/22 18:20 Urine Sodium 64 mmol/L 03/10/22 18:20 Urine Opiates Screen Presumptive positive 03/10/22 18:20 Urine Methadone Screen Presumptive negative 03/10/22 18:20 Ur Barbiturates Screen Presumptive negative 03/10/22 18:20 Ur Phencyclidine Scrn Presumptive negative 03/10/22 18:20 Ur Amphetamines Screen Presumptive negative 03/10/22 18:20 U Benzodiazepines Scrn Presumptive negative 03/10/22 18:20 Urine Cocaine Screen Presumptive negative 03/10/22 18:20 U Marijuana (THC) Screen Presumptive negative 03/10/22 18:20 Drugs of Abuse Note Disclamer 03/10/22 18:20 SARS-CoV-2 (PCR) Negative (Negative) 03/10/22 09:50 Microbiology: Microbiology 03/10/22 01:25 Peripheral/Venous Blood Culture - Preliminary NO GROWTH AFTER 48 HOURS 03/10/22 01:59 Peripheral/Venous Blood Culture - Preliminary NO GROWTH AFTER 48 HOURS 03/10/22 12:45 Tracheal Aspirate Sputum Culture - Preliminary [place]/IV: Voiding Method External Female Catheter Active Medications - Current Medications Current Medications: Generic Name Dose Route Start Last Admin Trade Name Freq PRN Reason Stop Dose Admin Acetaminophen 650 mg 03/10/22 02:56 Acetaminophen 650 Mg Rect Supp CA Q6H PRN Pain MILD(1-3)/Fever >100.5/ARREAGA Enoxaparin Sodium 40 mg 03/12/22 10:00 Enoxaparin 40 Mg/0.4 Ml Inj SUB-Q QDAY@1000 [facility] Protocol Famotidine 20 mg 03/10/22 22:00 03/11/22 21:41 Famotidine 20 Mg/2 Ml Inj IV 20 mg BID SHAHBAZ Administration Fentanyl 50 mcg 03/10/22 10:58 Fentanyl 100 Mcg/2 Ml Inj IV Q10MIN PRN ANALGESIA Hydrophilic Ointment 1 applic 03/10/22 11:03 Lip Therapy Vaseline TP Q2HR PRN Dry Lips Ceftriaxone Sodium 2 gm in 100 mls @ 200 mls/hr 03/10/22 10:00 03/11/22 10:53 Rocephin/Ns 2 Gm/100 Ml IV 200 mls/hr Q24HR SHAHBAZ Administration Protocol Azithromycin 500 mg in 250 mls @ 250 mls/hr 03/10/22 10:00 03/11/22 10:53 Zithromax/Ns IV 250 mls/hr Q24HR SHAHBAZ Administration Protocol Fentanyl Citrate 2,000 mcg in 100 mls @ 4.16 mls/hr 03/10/22 11:00 03/12/22 05:54 Fentanyl Drip Premix IV 4 mcg/kg/hr TITR SHAHBAZ 16.64 mls/hr Administration Protocol 1 MCG/KG/HR NORepinephrine/NS 8 MG-250 ML 8 mg in 250 mls @ 3.75 mls/hr 03/10/22 11:00 03/12/22 04:35 Norepinephrine/Ns 8 Mg-250 Ml (Double Conc) IV 2 mcg/min TITRATE SHAHBAZ 3.75 mls/hr Titration Protocol 2 MCG/MIN Sodium Bicarbonate 75 meq/ 1,075 mls @ 75 mls/hr 03/10/22 20:00 03/11/22 23:45 Sterile Water IV 75 mls/hr DIRECT SHAHBAZ Administration Levetiracetam 500 mg 03/10/22 22:00 03/11/22 21:41 Levetiracetam 500 Mg/5 Ml Oral Liqd PO 500 mg BID SHAHBAZ Administration Magnesium Hydroxide 30 ml 03/10/22 02:56 Magnesium Hydroxide (Mom) Oral Liqd Udc PO Q4H PRN Constipation Multi-Ingred Cream/Lotion/Oil/Oint 1 applic 03/10/22 11:03 Mineral Oil/Petrolatum, White Ophth Oint 3.5 Gm OU Q4HR PRN Dry Eye(s) Ondansetron HCl 4 mg 03/10/22 02:56 Ondansetron 4 Mg/2 Ml Inj IV Q8H PRN Nausea And Vomiting Senna/Docusate Sodium 1 tab 03/10/22 22:00 03/11/22 21:41 Sennosides/Docusate Sodium 8.6/50 Mg Tab FEEDTUBE 1 tab BID SHAHBAZ Administration Sodium Chloride 10 ml 03/10/22 10:00 03/11/22 21:41 Sodium Chloride 0.9% 10 Ml Flush Syringe IV 10 ml BID SHAHBAZ Administration Sodium Chloride 10 ml 03/10/22 02:56 Sodium Chloride 0.9% 10 Ml Flush Syringe IV PRN PRN LINE FLUSH Nutrition/Malnutrition Assess - Dietary Evaluation Nutrition/Malnutrition Findings: Nutrition Notes Start: 03/10/22 12:22 Freq: Status: Active Protocol: Document 03/10/22 12:22 RS (Rec: 03/10/22 12:45 RS [id number]) Nutrition Notes Need for Assessment generated from: MD Order Initial or Follow up Assessment Current Diagnosis Sepsis,Heart Failure, Respiratory Failure, Hyperlipidemia Other Pertinent Diagnosis Pneu, Lactic Acidosis, hyponatremia,MS Current Diet NPO Labs/Tests Na:119 K+:3.1 Cl:88.1 CO2:16 Cr:0.3 GLU:146 M.3 NT-Pro-B natriuret Pep: [id number] Pertinent Medications NaCl 0.9% at 125mL/hr KCl at 100mL/hr Fentanyl: 4.16mL/hr Norepinephrine: 3.75mL/hr Height 5 ft 6 in Weight 83.2 kg [place] Body Weight (kg) 59.09 BMI 29.6 Weight change and time frame KATHERINE wt hx Weight Status Overweight Subjective/Other Information MD consult for nutritional intake evaluation and TF. RD unable to assess wt/diet hx from pt d/t SOB and unable to provide information. Electrolytes abnormal along with several other labs. RD noted multiple skin wounds on pt. Pt currently NPO and not on vent. Percent of energy/protein needs met: 0%/0% Burn Absent Trauma Absent GI Symptoms None Current % PO Negligible Minimum of two criteria No physical signs of malnutrition #1 Nutrition Diagnosis Inadequate oral intake Etiology pneu & CHF As Evidenced by Signs and Symptoms pt currently NPO Is patient on ventilator? No Is Patient Ambulatory and/or Out of Bed No REE-([place] Jeor-confined to bed) 1713.168 Calculation Used for Recommendations [place] Je[place] Additional Notes Pro: 83-100g/day (1.0-1.2g/kg BW/day not on vent)// 100-166g /day (1.2-2g/kg BW/day on vent ) Fluid needs: 1500-1900mL/day or per MD Nutrition Intervention Change Diet Order: Start TF Nutrition Support: Vital AF 1.2 at 60mL/hr Kcal 1,728 Protein (gm) 108 Fluid (mL) 1,168 Goal #1 Pt will meet at least 75% of kcal/PRO needs via TF Anticipated Discharge Needs: KATHERINE at this time Follow-Up By: 03/12/22 Additional Comments F/U for TF inititation/ tolerance
[2022-03-11] MEDS: SENNOSIDES/DOCUSATE SODIUM 8.6/50 MG TAB FEEDTUBE SCH ×2 (10:53→21:41)
[2022-03-11] MEDS: FAMOTIDINE 20 MG/2 ML INJ IV SCH ×2 (10:53→21:41)
[2022-03-11] MEDS: levETIRAcetam 500 MG/5 ML ORAL LIQD PO SCH ×2 (10:53→21:41)
[2022-03-11] MEDS: AZITHROMYCIN/NS 500 MG/250 ML 500 MG/250 ML BAG IV SCH (10:53)
[2022-03-11] MEDS: cefTRIAXone/NS 2 GM/100 ML 2 GM/100 ML BAG IV SCH (10:53)
[2022-03-11] MEDS: ENOXAPARIN 80 MG/0.8 ML INJ SUB-Q SCH (10:54)
[2022-03-11] MEDS: NORepinephrine/NS 8 MG-250 ML 8 MG/250 ML INFUS..BTL IV SCH (11:05)
--- NOTE | 2022-03-11 14:14 | Progress Note ---
Assessment and Plan This is a 61-year-old female with known past medical history of Multiple Sclerosis and seizure disorder admitted for sepsis, Hyponatremia, and acute hypoxic respiratory failure requiring ventilatory support Acute Hypoxemic Respiratory Failure, on MVS Multifocal Pneumonia/CAP- possible aspiration Severe Hyponatremia- resolved Hypotension/Sepsis/Lactic Acidosis-Septic shock NSTEMI/Elevated Troponin- probable type 2 ischemia Elevated BNP Hypokalemia R/o COVID Acute Metabolic Encephalopathy H/o Seizure Disorder Elevated D-Dimer Moderate Protein Calorie Malnutrition -Titrate vasopressor support to keep MAP>65 -Continue Antibiotics for CAP- Ceftriaxone and Azithromycin, complete course. Follow up tracheal aspirate -Continue to trend temperature curve and WCC -CXR, ABG in am - continue to titrate supplemental oxygen to keep SpO2 90-92% -Daily assessment for readiness to wean, SAT and SBT - VAP bundle addressed, aspiration precautions HOB >40 - continue lung protective strategies - continue bronchodilators with pulmonary hygiene per RT - continue accuchecks with glycemic control per SSI (While critically ill target blood glucose of 140-180 mg/dL; avoid hypoglycemia) - sedation prn for target RASS 0 to -1, on Fentanyl infusion - avoid nephrotoxins, renally dose all medications - continue to avoid benzodiazepines, reduce the possibility of delirium - prn analgesia per CPOT score - Maintenance of sleep-wake cycle, avoid delirium - Continue with enteric nutritional support - VTE prophylaxis- anticoagulation with therapeutic Enoxaparin. -Get lower extremity dopplers r/o DVT -Stress ulcer prophylaxis- Famotidine -Chronic home medications as clinically indicated -Get surface echocardiography to evaluate LVEF and RVSP. - mobility, off loading and frequent turning per facility protocol to prevent pressure ulcers -Wound consult - Monitor hemodynamics closely - continue other care per attending / other consultants Patient is a FULL code. The high probability of a clinically significant, sudden or life threatening deterioration of the [respiratory, cardiovascular, neurology,renal ] system(s) required my full and direct attention, intervention and personal management. The aggregate critical care time was [36 ] minutes. This time is in addition to time spent performing reported procedures but includes the following: [x] Data Review and interpretation [x] Patient assessment and monitoring of vital signs [x] Documentation [x] Medication orders and management Subjective Date of service: 03/11/22 Interval history: follow up fro: Acute hypoxemic resp failure on MVS; Acute encephalopathy; Septic shock; Bilateral pneumonia-aspiration/CAP Severe hyponatremia Seen and examined. Vitals, labs, medications, chart reviewed. Discussed with nursing and respiratory care staff. No fevers, remains on low dose norepinephrine, on fentanyl infusion and orally intubated. Vent: ACVC-20/400/+8/35% Objective Vital Signs - 12hr 03/11/22 03/11/22 03/11/22 02:15 02:30 02:45 Temperature Pulse Rate 72 72 72 Pulse Rate [ From Monitor] Respiratory 24 24 24 Rate Blood Pressure 80/53 89/55 85/56 O2 Sat by Pulse 99 99 100 Oximetry 03/11/22 03/11/22 03/11/22 03:00 03:15 03:30 Temperature Pulse Rate 71 72 75 Pulse Rate [ From Monitor] Respiratory 24 24 24 Rate Blood Pressure 84/55 91/64 96/64 O2 Sat by Pulse 100 100 97 Oximetry 03/11/22 03/11/22 03/11/22 03:45 04:00 04:15 Temperature 98 F Pulse Rate 81 81 76 Pulse Rate [ 81 From Monitor] Respiratory 24 24 24 Rate Blood Pressure 89/59 94/60 87/50 O2 Sat by Pulse 97 96 97 Oximetry 03/11/22 03/11/22 03/11/22 04:30 04:45 05:00 Temperature Pulse Rate 74 74 74 Pulse Rate [ From Monitor] Respiratory 24 24 24 Rate Blood Pressure 88/56 85/57 87/54 O2 Sat by Pulse 98 98 98 Oximetry 03/11/22 03/11/22 03/11/22 05:04 05:15 05:30 Temperature Pulse Rate 76 75 76 Pulse Rate [ From Monitor] Respiratory 24 24 Rate Blood Pressure 87/54 93/63 89/56 O2 Sat by Pulse 98 99 97 Oximetry 03/11/22 03/11/22 03/11/22 05:45 06:00 06:15 Temperature Pulse Rate 98 H 93 H 76 Pulse Rate [ From Monitor] Respiratory 24 24 24 Rate Blood Pressure 89/56 101/67 101/67 O2 Sat by Pulse 99 99 97 Oximetry 03/11/22 03/11/22 03/11/22 06:30 06:45 07:00 Temperature Pulse Rate 74 72 73 Pulse Rate [ From Monitor] Respiratory 24 20 20 Rate Blood Pressure 93/55 94/61 96/63 O2 Sat by Pulse 97 97 98 Oximetry 03/11/22 03/11/22 03/11/22 07:15 07:26 07:30 Temperature Pulse Rate 73 80 81 Pulse Rate [ From Monitor] Respiratory 20 20 Rate Blood Pressure 91/59 99/64 99/64 O2 Sat by Pulse 97 98 98 Oximetry 03/11/22 03/11/22 03/11/22 07:45 08:00 08:15 Temperature Pulse Rate 81 81 88 Pulse Rate [ From Monitor] Respiratory 20 20 20 Rate Blood Pressure 107/68 104/67 97/58 O2 Sat by Pulse 98 97 97 Oximetry 03/11/22 03/11/22 03/11/22 08:30 08:45 09:00 Temperature Pulse Rate 86 94 H 86 Pulse Rate [ From Monitor] Respiratory 20 20 20 Rate Blood Pressure 98/67 102/71 113/74 O2 Sat by Pulse 98 98 98 Oximetry 03/11/22 03/11/22 03/11/22 09:15 09:30 09:45 Temperature Pulse Rate 83 76 100 H Pulse Rate [ From Monitor] Respiratory 20 20 20 Rate Blood Pressure 111/65 95/59 113/74 O2 Sat by Pulse 97 97 99 Oximetry 03/11/22 03/11/22 03/11/22 10:00 10:16 10:30 Temperature Pulse Rate 74 92 H 91 H Pulse Rate [ From Monitor] Respiratory 20 20 20 Rate Blood Pressure 116/72 121/76 O2 Sat by Pulse 98 99 98 Oximetry 03/11/22 03/11/22 03/11/22 10:45 11:00 11:15 Temperature Pulse Rate 89 86 87 Pulse Rate [ From Monitor] Respiratory 20 20 20 Rate Blood Pressure 125/71 115/70 104/72 O2 Sat by Pulse 99 99 98 Oximetry 03/11/22 03/11/22 03/11/22 11:30 11:45 11:48 Temperature Pulse Rate 92 H 79 85 Pulse Rate [ From Monitor] Respiratory 20 20 Rate Blood Pressure 108/73 95/61 95/61 O2 Sat by Pulse 100 98 99 Oximetry 03/11/22 03/11/22 03/11/22 12:00 12:16 12:30 Temperature Pulse Rate 93 H 94 H Pulse Rate [ From Monitor] Respiratory 21 20 15 Rate Blood Pressure 121/77 87/69 O2 Sat by Pulse 98 98 94 Oximetry Vitals reviewed General appearance: Present: cachectic, other (Intubated and Sedated) - EENT Eyes: Present: PERRL. ETT in place, 23cm at the lip; NGT in nares - Respiratory Respiratory effort: normal Respiratory: bilateral: rhonchi - Cardiovascular Rhythm: regular Heart Sounds: Present: S1 & S2 - Extremities Extremities: no ischemia, pulses intact, pulses symmetrical, abnormal (Bilateral feet drop) Peripheral Pulses: within normal limits - Abdominal General gastrointestinal: soft, non-distended, normal bowel sounds - Integumentary Integumentary: Present: warm, dry - Psychiatric Psychiatric: other (Intubated ) - Neurologic Neurologic: other , awake, alert, tracking voice and trying to mouth words Constitutional: no acute distress, alert CBC and BMP: 03/11/22 05:00 03/11/22 05:00 ABG, PT/INR, D-dimer: ABG ABG pH 7.472 pH Units (7.350-7.450) H 03/11/22 Unknown ABG pCO2 27.8 mm Hg 03/11/22 Unknown ABG pO2 83.0 mm Hg (80.0-90.0) 03/11/22 Unknown ABG O2 Saturation 97.0 % (95.0-99.0) 03/11/22 Unknown PT/INR, D-dimer PT 14.9 Sec. (12.2-14.9) 03/10/22 01:25 INR 1.03 (0.87-1.13) 03/10/22 01:25 D-Dimer 787.78 ng/mlDDU (0-234) H 03/10/22 05:45 Abnormal lab findings: Abnormal Labs 03/10/22 03/10/22 03/10/22 01:19 01:25 01:25 WBC RBC Hgb Hct RDW 15.4 H Lymph % (Auto) 12.4 L Lymph # (Auto) 1.1 L Seg Neutrophils % 85.9 H Seg Neutrophils # D-Dimer ABG pH ABG pO2 59.3 L ABG HCO3 16.7 L ABG O2 Saturation 92.3 L ABG Base Excess -7.8 L ABG Hemoglobin 11.4 L Oxyhemoglobin 90.8 L Sodium 119 L* Potassium 3.1 L Chloride 88.1 L Carbon Dioxide 16 L BUN Creatinine 0.3 L Glucose 146 H Lactic Acid Uric Acid Calcium 8.2 L Magnesium 1.30 L Ferritin ALT 5 L Lactate Dehydrogenase Total Creatine Kinase CK-MB (CK-2) Troponin T NT-Pro-B Natriuret Pep Total Protein 5.4 L Albumin 3.6 L Cholesterol LDL Cholesterol Direct HDL Cholesterol Urine WBC (Auto) 03/10/22 03/10/22 03/10/22 01:25 01:25 01:25 WBC RBC Hgb Hct RDW Lymph % (Auto) Lymph # (Auto) Seg Neutrophils % Seg Neutrophils # D-Dimer ABG pH ABG pO2 ABG HCO3 ABG O2 Saturation ABG Base Excess ABG Hemoglobin Oxyhemoglobin Sodium Potassium Chloride Carbon Dioxide BUN Creatinine Glucose Lactic Acid 3.60 H* Uric Acid Calcium Magnesium Ferritin ALT Lactate Dehydrogenase Total Creatine Kinase CK-MB (CK-2) 4.6 H Troponin T 0.164 H* NT-Pro-B Natriuret Pep 91309 H Total Protein Albumin Cholesterol 259 H LDL Cholesterol Direct 187 H HDL Cholesterol 63 H Urine WBC (Auto) 03/10/22 03/10/22 03/10/22 02:43 05:45 05:45 WBC RBC Hgb Hct RDW Lymph % (Auto) Lymph # (Auto) Seg Neutrophils % Seg Neutrophils # D-Dimer 787.78 H ABG pH ABG pO2 ABG HCO3 ABG O2 Saturation ABG Base Excess ABG Hemoglobin Oxyhemoglobin Sodium Potassium Chloride Carbon Dioxide BUN Creatinine Glucose Lactic Acid 3.70 H* 3.10 H* Uric Acid Calcium Magnesium Ferritin ALT Lactate Dehydrogenase Total Creatine Kinase CK-MB (CK-2) Troponin T NT-Pro-B Natriuret Pep Total Protein Albumin Cholesterol LDL Cholesterol Direct HDL Cholesterol Urine WBC (Auto) 03/10/22 03/10/22 03/10/22 05:45 05:45 12:24 WBC RBC Hgb Hct RDW Lymph % (Auto) Lymph # (Auto) Seg Neutrophils % Seg Neutrophils # D-Dimer ABG pH ABG pO2 ABG HCO3 ABG O2 Saturation ABG Base Excess ABG Hemoglobin Oxyhemoglobin Sodium 124 L Potassium 3.3 L Chloride Carbon Dioxide 11 L BUN Creatinine 0.2 L Glucose Lactic Acid Uric Acid Calcium 6.9 L D Magnesium Ferritin 219.2 H ALT Lactate Dehydrogenase 210 H Total Creatine Kinase CK-MB (CK-2) Troponin T NT-Pro-B Natriuret Pep Total Protein Albumin Cholesterol LDL Cholesterol Direct HDL Cholesterol Urine WBC (Auto) 03/10/22 03/10/22 03/10/22 12:24 12:24 12:24 WBC RBC Hgb Hct RDW Lymph % (Auto) Lymph # (Auto) Seg Neutrophils % Seg Neutrophils # D-Dimer ABG pH ABG pO2 ABG HCO3 ABG O2 Saturation ABG Base Excess ABG Hemoglobin Oxyhemoglobin Sodium 128 L Potassium Chloride Carbon Dioxide BUN Creatinine Glucose Lactic Acid 2.70 H* Uric Acid Calcium Magnesium Ferritin ALT Lactate Dehydrogenase Total Creatine Kinase 901 H CK-MB (CK-2) 15.3 H Troponin T 0.032 H D NT-Pro-B Natriuret Pep Total Protein Albumin Cholesterol LDL Cholesterol Direct HDL Cholesterol Urine WBC (Auto) 03/10/22 03/10/22 03/10/22 12:45 13:15 18:00 WBC RBC Hgb Hct RDW Lymph % (Auto) Lymph # (Auto) Seg Neutrophils % Seg Neutrophils # D-Dimer ABG pH 7.315 L ABG pO2 70.1 L ABG HCO3 15.6 L ABG O2 Saturation 93.8 L ABG Base Excess -9.5 L ABG Hemoglobin 11.0 L Oxyhemoglobin 92.4 L Sodium 129 L Potassium Chloride Carbon Dioxide 17 L BUN Creatinine 0.2 L Glucose Lactic Acid Uric Acid 1.6 L Calcium 7.0 L Magnesium Ferritin ALT Lactate Dehydrogenase Total Creatine Kinase CK-MB (CK-2) Troponin T NT-Pro-B Natriuret Pep Total Protein Albumin Cholesterol LDL Cholesterol Direct HDL Cholesterol Urine WBC (Auto) 03/10/22 03/10/22 03/11/22 18:20 21:05 05:00 WBC 13.7 H RBC 3.44 L Hgb 9.6 L Hct 29.0 L D RDW Lymph % (Auto) 8.9 L Lymph # (Auto) Seg Neutrophils % 86.6 H Seg Neutrophils # 11.8 H D-Dimer ABG pH ABG pO2 116.3 H ABG HCO3 17.2 L ABG O2 Saturation ABG Base Excess -6.4 L ABG Hemoglobin 11.0 L Oxyhemoglobin Sodium Potassium Chloride Carbon Dioxide BUN Creatinine Glucose Lactic Acid Uric Acid Calcium Magnesium Ferritin ALT Lactate Dehydrogenase Total Creatine Kinase CK-MB (CK-2) Troponin T NT-Pro-B Natriuret Pep Total Protein Albumin Cholesterol LDL Cholesterol Direct HDL Cholesterol Urine WBC (Auto) 105.0 H 03/11/22 03/11/22 05:00 Unknown WBC RBC Hgb Hct RDW Lymph % (Auto) Lymph # (Auto) Seg Neutrophils % Seg Neutrophils # D-Dimer ABG pH 7.472 H ABG pO2 ABG HCO3 19.8 L ABG O2 Saturation ABG Base Excess -2.9 L ABG Hemoglobin 10.1 L Oxyhemoglobin Sodium 132 L Potassium Chloride Carbon Dioxide 20 L BUN 6 L Creatinine 0.2 L Glucose Lactic Acid Uric Acid Calcium 7.5 L Magnesium Ferritin ALT Lactate Dehydrogenase Total Creatine Kinase CK-MB (CK-2) Troponin T NT-Pro-B Natriuret Pep Total Protein Albumin Cholesterol LDL Cholesterol Direct HDL Cholesterol Urine WBC (Auto) Chest x-ray: image reviewed (ETT in posiition, RIJ CVL, persistent bilateral alveolar infiltrates) Allied health notes reviewed: RT
--- NOTE | 2022-03-11 17:01 | Cat Scan Report ---
CT head/brain wo con INDICATION / CLINICAL INFORMATION: 61 years Female; Acute Encephalopathy. TECHNIQUE: Routine CT head without contrast. All CT scans at this location are performed using CT dos e reduction for ALARA by means of automated exposure control. COMPARISON: None. FINDINGS: BRAIN / INTRACRANIAL CONTENTS: The motion degrades image quality in this intubated patient. However, there is a decrease attenuation involving the periventricular white matter as well as the right centr um semiovale which are nonspecific though most compatible with microvascular angiopathy. This mild ce rebral atrophy. The ventricular system is correspondingly appropriate in size and configuration. Ther e is no clear CT evidence of acute intracranial hemorrhage or significant mass effect. ORBITS: No significant abnormality of visualized orbits. SINUSES / MASTOIDS: There is prominent opacification the right sphenoid sinus at. Mild mucosal thicke nicko is seen on the left. CRANIOCERVICAL JUNCTION: No significant abnormality. ADDITIONAL FINDINGS: None. IMPRESSION: 1. 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 Signer Name: Colby Mclean MD Signed: 03/11/2022 4:57 PM Workstation Name: [id number]
--- NOTE | 2022-03-12 02:49 | XRay Report ---
CHEST 1 VIEW 03/12/2022 1:38 AM INDICATION / CLINICAL INFORMATION: follow up respiratory failure. COMPARISON: 03/11/2022 FINDINGS: SUPPORT DEVICES: Unchanged. HEART / MEDIASTINUM: Stable. LUNGS / PLEURA: Redemonstrated and increased patchy airspace opacities in the bilateral lungs. No pne umothorax. ADDITIONAL FINDINGS: No significant additional findings. IMPRESSION: 1. Interval worsening. Signer Name: Charlie Venegas DO Signed: 03/12/2022 2:44 AM Workstation Name: [id number]
[2022-03-12 04:48] LABS: ABG Base Excess 0.2 mmol/L (-2.0-3.0); ABG HCO3 23.4 mmol/L (20.0-26.0); ABG Methemoglobin 0.4 % (0.0-1.5); ABG Oxygen Saturation 97.1 % (95.0-99.0); ABG PCO2 32.1 mm Hg; ABG PH 7.482 pH Units (7.350-7.450); ABG PO2 65.5 mm Hg (80.0-90.0)
[2022-03-12 04:53] LABS: Hematocrit 26.1 % (30.3-42.9); Hemoglobin 8.7 gm/dl (10.1-14.3); Mean Corpuscular HGB Conc 33 % (30-34); Mean Corpuscular Volume 84 fl (79-97); Platelet Count 204 K/mm3 (140-440); Red Blood Count 3.11 M/mm3 (3.65-5.03); Red Cell Distribution Width 15.2 % (13.2-15.2)
[2022-03-12 05:16] LABS: Blood Urea Nitrogen 4 mg/dL (7-17); Calcium 7.4 mg/dL (8.4-10.2); Hemolysis Index 3
[2022-03-12 05:28] LABS: BUN/Creatinine Ratio 20
[2022-03-12] MEDS: fentaNYL DRIP Premix 2,000 MCG/100 ML BAG IV SCH ×5 (05:54→22:19)
[2022-03-12] MEDS ORDERED: SODIUM PHOSPHATE 45 MMOL in SODIUM CHLORIDE 0.9% 500 ML 500 ML IV SCH (08:15)
[2022-03-12] MEDS: cefTRIAXone/NS 2 GM/100 ML 2 GM/100 ML BAG IV SCH (10:04)
[2022-03-12] MEDS: AZITHROMYCIN/NS 500 MG/250 ML 500 MG/250 ML BAG IV SCH (10:04)
[2022-03-12] MEDS: ENOXAPARIN 40 MG/0.4 ML INJ SUB-Q SCH (10:04)
[2022-03-12] MEDS: POLYETHYLENE GLYCOL 3350 17 GM POWDER FEEDTUBE SCH (10:04)
[2022-03-12] MEDS: POTASSIUM CHLORIDE 20 MEQ PACKET FEEDTUBE SCH ×2 (10:04→14:40)
[2022-03-12] MEDS: levETIRAcetam 500 MG/5 ML ORAL LIQD FEEDTUBE SCH ×2 (10:05→21:01)
[2022-03-12] MEDS: FAMOTIDINE 20 MG TAB FEEDTUBE SCH ×2 (10:05→21:02)
[2022-03-12] MEDS: SENNOSIDES/DOCUSATE SODIUM 8.6/50 MG TAB FEEDTUBE SCH ×2 (10:05→21:02)
--- NOTE | 2022-03-12 10:35 | Electrocardiograph Report ---
[facility] Test Date: 2022-03-10 Test Time: 01:08:15 Pat Name: GARCÍA SIFUENTES Department: Room: A254 1 Gender: F [employer] Coordinator: RIMMA : [id number] Requested By: DARIO SANTOS Order Number: [id number] Reading MD: Lauren Burdick Measurements Intervals [place] Rate: 84 P: 49 NV: 183 QRS: 22 QRSD: 103 T: 62 QT: 482 QTc: 571 Interpretive Statements Sinus rhythm Nonspecific T wave abnormality Prolonged QT interval No previous ECG available for comparison Electronically Signed On 03-12-2022 10:34:47 EDT by Lauren Burdick
--- NOTE | 2022-03-12 10:41 | Progress Note ---
Assessment and Plan Electrolyte Imbalance - Replenish Na, Phos & K. Resolved Acidosis, f/u labs Hypotension - Optimize pressors for better BP Pneumonia/Resp Failure - Vent Mx per Pulm Multiple Sclerosis - F/u Mx Subjective Date of service: 03/12/22 Interval history: On Vent, sedated Objective - Vital Signs Vital signs: Vital Signs - 12hr 03/11/22 03/11/22 03/11/22 22:45 23:00 23:15 Temperature Pulse Rate 98 H 98 H 98 H Pulse Rate [ From Monitor] Respiratory 20 20 20 Rate Blood Pressure 104/75 121/76 103/70 O2 Sat by Pulse 94 94 96 Oximetry 03/11/22 03/11/22 03/12/22 23:30 23:45 00:00 Temperature Pulse Rate 94 H 91 H 96 H Pulse Rate [ 96 H From Monitor] Respiratory 20 20 20 Rate Blood Pressure 95/64 92/64 99/70 O2 Sat by Pulse 96 98 98 Oximetry 03/12/22 03/12/22 03/12/22 00:04 00:15 00:30 Temperature Pulse Rate 88 96 H 93 H Pulse Rate [ From Monitor] Respiratory 20 20 20 Rate Blood Pressure 99/70 110/69 103/66 O2 Sat by Pulse 97 95 97 Oximetry 03/12/22 03/12/22 03/12/22 00:45 00:53 01:00 Temperature Pulse Rate 90 95 H 95 H Pulse Rate [ From Monitor] Respiratory 20 20 Rate Blood Pressure 91/65 97/68 O2 Sat by Pulse 98 98 96 Oximetry 03/12/22 03/12/22 03/12/22 01:15 01:30 01:45 Temperature Pulse Rate 90 84 87 Pulse Rate [ From Monitor] Respiratory 20 20 20 Rate Blood Pressure 95/68 92/62 100/61 O2 Sat by Pulse 97 97 96 Oximetry 03/12/22 03/12/22 03/12/22 02:00 02:16 02:30 Temperature Pulse Rate 93 H 97 H 85 Pulse Rate [ From Monitor] Respiratory 20 21 20 Rate Blood Pressure 96/64 114/81 100/68 O2 Sat by Pulse 99 97 97 Oximetry 03/12/22 03/12/22 03/12/22 02:45 03:00 03:15 Temperature Pulse Rate 86 96 H 90 Pulse Rate [ From Monitor] Respiratory 20 20 20 Rate Blood Pressure 100/71 110/70 98/66 O2 Sat by Pulse 98 97 95 Oximetry 03/12/22 03/12/22 03/12/22 03:30 03:45 04:00 Temperature Pulse Rate 89 97 H 103 H Pulse Rate [ 103 H From Monitor] Respiratory 20 20 20 Rate Blood Pressure 96/63 98/68 108/73 O2 Sat by Pulse 97 98 95 Oximetry 03/12/22 03/12/22 03/12/22 04:15 04:30 04:45 Temperature Pulse Rate 87 108 H 101 H Pulse Rate [ From Monitor] Respiratory 20 20 20 Rate Blood Pressure 104/74 106/62 94/64 O2 Sat by Pulse 95 91 95 Oximetry 03/12/22 03/12/22 03/12/22 05:00 05:15 05:30 Temperature Pulse Rate 94 H 97 H 90 Pulse Rate [ From Monitor] Respiratory 20 20 20 Rate Blood Pressure 92/63 92/63 104/74 O2 Sat by Pulse 96 97 96 Oximetry 03/12/22 03/12/22 03/12/22 05:45 06:00 06:15 Temperature Pulse Rate 84 92 H 85 Pulse Rate [ From Monitor] Respiratory 16 16 16 Rate Blood Pressure 94/55 98/64 96/67 O2 Sat by Pulse 97 98 96 Oximetry 03/12/22 03/12/22 03/12/22 06:30 06:46 07:00 Temperature Pulse Rate 85 90 95 H Pulse Rate [ From Monitor] Respiratory 16 16 16 Rate Blood Pressure 85/63 99/69 96/70 O2 Sat by Pulse 98 98 97 Oximetry 03/12/22 08:00 Temperature 100.5 F H Pulse Rate 85 Pulse Rate [ From Monitor] Respiratory Rate Blood Pressure 94/66 O2 Sat by Pulse 97 Oximetry - General Appearance General appearance: sedated on ventilator Neck: no JVD Respiratory: Present: Other (Air entry per vent) Cardiology: regular, S1S2 Gastrointestinal: other (Soft) Neurologic: other (Sedated) - Lab 03/12/22 04:20 03/12/22 04:20 Most recent lab results ABG pH 7.482 pH Units (7.350-7.450) H 03/12/22 04:10 ABG pCO2 32.1 mm Hg 03/12/22 04:10 ABG pO2 65.5 mm Hg (80.0-90.0) L 03/12/22 04:10 ABG HCO3 23.4 mmol/L (20.0-26.0) 03/12/22 04:10 ABG O2 Saturation 97.1 % (95.0-99.0) 03/12/22 04:10 Calcium 7.4 mg/dL (8.4-10.2) L 03/12/22 04:20 Phosphorus 1.10 mg/dL (2.5-4.5) L 03/12/22 04:20 Magnesium 2.40 mg/dL (1.7-2.3) H 03/12/22 04:20 Urine Sodium 64 mmol/L 03/10/22 18:20 Medications & Allergies - Medications Allergies/Adverse Reactions: Allergies Penicillins Allergy (Mild, Verified 01/11/19 12:20) Rash . Home Medications: Home Medications Medication Instructions Recorded Confirmed Last Taken Type Ciprofloxacin HCl [Ciprofloxacin 500 mg PO Q12H #14 tab 01/11/19 Unknown Rx TAB] levETIRAcetam [Keppra TAB] 500 mg PO BID #60 tablet 01/11/19 Unknown Rx Active Medications: Generic Name Dose Route Start Last Admin Trade Name Freq PRN Reason Stop Dose Admin Acetaminophen 650 mg 03/10/22 02:56 Acetaminophen 650 Mg Rect Supp KS Q6H PRN Pain MILD(1-3)/Fever >100.5/ARREAGA Enoxaparin Sodium 40 mg 03/12/22 10:00 03/12/22 10:04 Enoxaparin 40 Mg/0.4 Ml Inj SUB-Q 40 mg QDAY@1000 SHAHBAZ Administration Protocol Famotidine 20 mg 03/12/22 10:00 03/12/22 10:05 Famotidine 20 Mg Tab FEEDTUBE 20 mg BID SHAHBAZ Administration Fentanyl 50 mcg 03/10/22 10:58 Fentanyl 100 Mcg/2 Ml Inj IV Q10MIN PRN ANALGESIA Hydrophilic Ointment 1 applic 03/10/22 11:03 Lip Therapy Vaseline TP Q2HR PRN Dry Lips Ceftriaxone Sodium 2 gm in 100 mls @ 200 mls/hr 03/10/22 10:00 03/12/22 10:04 Rocephin/Ns 2 Gm/100 Ml IV 200 mls/hr Q24HR SHAHBAZ Administration Protocol Azithromycin 500 mg in 250 mls @ 250 mls/hr 03/10/22 10:00 03/12/22 10:04 Zithromax/Ns IV 250 mls/hr Q24HR SHAHBAZ Administration Protocol Fentanyl Citrate 2,000 mcg in 100 mls @ 4.16 mls/hr 03/10/22 11:00 03/12/22 05:54 Fentanyl Drip Premix IV 4 mcg/kg/hr TITR SHAHBAZ 16.64 mls/hr Administration Protocol 1 MCG/KG/HR NORepinephrine/NS 8 MG-250 ML 8 mg in 250 mls @ 3.75 mls/hr 03/10/22 11:00 03/12/22 04:35 Norepinephrine/Ns 8 Mg-250 Ml (Double Conc) IV 2 mcg/min TITRATE SHAHBAZ 3.75 mls/hr Titration Protocol 2 MCG/MIN Sodium Phosphate 45 mmol/ 515 mls @ 84 mls/hr 03/12/22 08:15 03/12/22 08:35 Sodium Chloride IV 03/12/22 12:15 84 mls/hr ONCE@0815 SHAHBAZ Administration Levetiracetam 500 mg 03/12/22 10:00 03/12/22 10:05 Levetiracetam 500 Mg/5 Ml Oral Liqd FEEDTUBE 500 mg BID SHAHBAZ Administration Magnesium Hydroxide 30 ml 03/10/22 02:56 Magnesium Hydroxide (Mom) Oral Liqd Udc PO Q4H PRN Constipation Multi-Ingred Cream/Lotion/Oil/Oint 1 applic 03/10/22 11:03 Mineral Oil/Petrolatum, White Ophth Oint 3.5 Gm OU Q4HR PRN Dry Eye(s) Ondansetron HCl 4 mg 03/10/22 02:56 Ondansetron 4 Mg/2 Ml Inj IV Q8H PRN Nausea And Vomiting Polyethylene Glycol 17 gm 03/12/22 10:00 03/12/22 10:04 Polyethylene Glycol 3350 17 Gm Powder FEEDTUBE 17 gm QDAY SHAHBAZ Administration Potassium Chloride 40 meq 03/12/22 10:00 03/12/22 10:04 Potassium Chloride 20 Meq Packet FEEDTUBE 03/12/22 14:01 40 meq Q4HR SHAHBAZ Administration Senna/Docusate Sodium 1 tab 03/10/22 22:00 03/12/22 10:05 Sennosides/Docusate Sodium 8.6/50 Mg Tab FEEDTUBE 1 tab BID SHAHBAZ Administration Sodium Chloride 10 ml 03/10/22 10:00 03/12/22 10:05 Sodium Chloride 0.9% 10 Ml Flush Syringe IV 10 ml BID SHAHBAZ Administration Sodium Chloride 10 ml 03/10/22 02:56 Sodium Chloride 0.9% 10 Ml Flush Syringe IV PRN PRN LINE FLUSH
--- NOTE | 2022-03-12 12:16 | Progress Note ---
<ERWINRaineJOSEPHDileep - Last Filed: 03/12/22 15:01> Assessment and Plan Assessment and plan: This is a 61-year-old female with MS and seizure disorder admitted with sepsis, hyponatremia, hypokalemia, elevated troponins and acute hypoxic respiratory failure Neuro: Acute metabolic encephalopathy, h/o Multiple Sclerosis, Seizure disorder -Neurology consulted, appreciate recommendations -Sedated with Fentanyl gtt -RASS goal 0 to -1 -Keppra -Reorientation as needed -Maintain sleep-wake cycle -Seizure precautions -As needed analgesia -CT head shows vascular angioplasty without clear evidence of acute intracranial hemorrhage -Neurology consulted, appreciate recommendations -UDS (+) for opiates Cardiac: Hypotension, Elevated troponin -Cardiology consulted, appreciate recommendations -BNP 14711 -Blood pressure monitoring per protocol -Vasopressor support with Levophed gtt -MAP goal greater than 65 -Echocardiogram LVEF 50%, no pulmanory HTN Respiratory: Acute hypoxic respiratory failure -CCM consulted, appreciate recommendations -Intubated on 03/10 with 7.5 OETT at 23 cm at the lips in the ED -A.m. vent settings: AC TV 400, Rate 16, PEEP 6, FiO2 @ 35% -See RT notes for titration -A.m. ABG and CXR noted -VAP bundle -SPO2 monitoring GI: Moderate Protein Calorie Malnutrition, Transaminitis -24 hours +1804 mL -PPI -NTR consulted for tube feedings -BR: Miralax, Senokot S -Trend LFTs : Severe hyponatremia, Hypokalemia, Hypophosphatemia -Nephrology consulted, appreciate recommendations -Record intake and output -s/p Sodium Bicarb gtt -Renally dose medications -Avoid nephrotoxic medications -Replete Na, K, Phos -Trend BMP, Mag, Phos ID: Septic Shock, CAP, lactic acidosis (resolved) -Covid 19 PCR (-) -Infectious disease consulted, appreciate recommendation -Antibiotic therapy with azithromycin and rocephin -f/u blood culture -Monitor WBC and temperature curve Endo: NAD -Avoid hypoglycemia -SSI -Accu-Cheks q. 6hr Heme: Leukocytosis -Trend CBC -Transfuse hemoglobin less than 7 -SCDs to BLE while in bed The high probability of a clinically significant, sudden or life threatening deterioration of the [multiple] system(s) required my full and direct attention, intervention and personal management. The aggregate critical care time was [60] minutes. This time is in addition to time spent performing reported procedures but includes the following: [x] Data Review and interpretation [x] Patient assessment and monitoring of vital signs [x] Documentation [x] Medication orders and management Disposition Plan: icu Total Time Spent with Patient (Minutes): 60 History Interval history: This is a 61-year-old female with multiple sclerosis and seizure disorder who presented to emergency department on 03/10 via EMS for evaluation of shortness of breath and difficulty breathing. Upon arrival of EMS patient's SPO2 was in the 50s and she was hypotensive to 80s over 50s and was started on IV fluids in route and placed on CPAP. Upon arrival to the emergency department patient was placed on BiPAP and work-up in the emergency department included a CXR which showed multifocal pneumonia, lab work revealed hyponatremia, hypokalemia, lactic acidosis, metabolic acidosis and elevated troponins. Patient was started on empiric antibiotics and admitted to the hospital service with Sepsis, acute hypoxic respiratory failure, electrolyte imbalances and elevated troponins with consults to cardiology, pulmonology and nephrology. Hospital Course to Date: 03/10: S/p intubation this am due to tachypnea and worsen mental status. Current sedated and stable on the vent. Patient is now on low dose Levophed gtt due to hypotension. Presented with a Na level of 119, on continuous NS at 125ml, repeat BMP pending. Continue IVF hydration and serial Na Q6hrs. Nephrology is also following. Continue empiric IV Abx for CAP, COVID PCR pending, ID consult pending. D-Dimer also elevated, BLE doppler ordered, therapeutic Lovenox initiated. D/W CCM patient is too unstable for transport at this time, possible CTA chest in the am or once patient is more stable. Cardiology was also consult ed for elevated troponin X2, EKG noted with no significant ST changes, 2D echo pending. Resume home AEDs, continue seizure precautions. Monitor and replace electrolytes as needed 03/11: Intubated and low dose fentanyl gtt. Open eyes spontaneously but does not track, not following commands. NA level 132 this am, Nabcarb gtt initiated per Nephro. CT head/brain w/o con ordered to r/o intracranial abnormality. Wean off sedation to better assess mental status. Remains on Levophed gtt, afebrile, but with leukocytosis this am. This am CXR and ABG noted, with significant improvement. D/w CCM, PE less likely will hold off on CTA chest for now. Lovenox switched to Qday. Continue empiric IV Abx, ID consult pending. 03/12: Discontinue bicarb gtt, replete phos and potassium, added miralax. Remain on levo and fent gtt Hospitalist Physical - Constitutional Vitals: Temp Pulse Resp BP Pulse Ox 100.5 F H 94 H 16 77/50 92 03/12/22 08:00 03/12/22 11:15 03/12/22 11:15 03/12/22 11:15 03/12/22 11:15 General appearance: Present: no acute distress, other (sedated, intubated) - EENT Eyes: Present: PERRL, EOM intact - Neck Neck: Absent: masses or JVD, cervical LAD - Respiratory Respiratory effort: normal Respiratory: bilateral: wheezing, other (coarse) - Cardiovascular Rhythm: regular Heart Sounds: Present: S1 & S2. Absent: systolic murmur, diastolic murmur - Extremities Extremities: no ischemia, pulses intact, pulses symmetrical, No edema, normal temperature, normal color Peripheral Pulses: within normal limits - Abdominal General gastrointestinal: soft, non-tender, non-distended, normal bowel sounds - Integumentary Integumentary: Present: warm, dry - Neurologic Neurologic: moves all extremities, other (intact cough/gag, PERRL, intermittantly follows commands) - Allied Health Allied health notes reviewed: nursing, RT, social work HEART Score - HEART Score Troponin: Troponin T 0.032 ng/mL (0.00-0.029) H D 03/10/22 12:24 Results - Labs CBC & Chem 7: 03/12/22 04:20 03/12/22 04:20 Labs: Laboratory Last Values WBC 13.6 K/mm3 (4.5-11.0) H 03/12/22 04:20 RBC 3.11 M/mm3 (3.65-5.03) L 03/12/22 04:20 Hgb 8.7 gm/dl (10.1-14.3) L 03/12/22 04:20 Hct 26.1 % (30.3-42.9) L 03/12/22 04:20 MCV 84 fl (79-97) 03/12/22 04:20 MCH 28 pg (28-32) 03/12/22 04:20 MCHC 33 % (30-34) 03/12/22 04:20 RDW 15.2 % (13.2-15.2) 03/12/22 04:20 Plt Count 204 K/mm3 (140-440) 03/12/22 04:20 Lymph % (Auto) 8.9 % (13.4-35.0) L 03/11/22 05:00 [place] % (Auto) 4.2 % (0.0-7.3) 03/11/22 05:00 Eos % (Auto) 0.1 % (0.0-4.3) 03/11/22 05:00 Baso % (Auto) 0.2 % (0.0-1.8) 03/11/22 05:00 Lymph # (Auto) 1.2 K/mm3 (1.2-5.4) 03/11/22 05:00 [place] # (Auto) 0.6 K/mm3 (0.0-0.8) 03/11/22 05:00 Eos # (Auto) 0.0 K/mm3 (0.0-0.4) 03/11/22 05:00 Baso # (Auto) 0.0 K/mm3 (0.0-0.1) 03/11/22 05:00 Seg Neutrophils % 86.6 % (40.0-70.0) H 03/11/22 05:00 Seg Neutrophils # 11.8 K/mm3 (1.8-7.7) H 03/11/22 05:00 PT 14.9 Sec. (12.2-14.9) 03/10/22 01:25 INR 1.03 (0.87-1.13) 03/10/22 01:25 D-Dimer 787.78 ng/mlDDU (0-234) H 03/10/22 05:45 ABG pH 7.482 pH Units (7.350-7.450) H 03/12/22 04:10 ABG pCO2 32.1 mm Hg 03/12/22 04:10 ABG pO2 65.5 mm Hg (80.0-90.0) L 03/12/22 04:10 ABG HCO3 23.4 mmol/L (20.0-26.0) 03/12/22 04:10 ABG O2 Saturation 97.1 % (95.0-99.0) 03/12/22 04:10 ABG O2 Content 11.3 (0.0-44) 03/12/22 04:10 ABG Base Excess 0.2 mmol/L (-2.0-3.0) 03/12/22 04:10 ABG Hemoglobin 8.4 gm/dl (12.0-16.0) L 03/12/22 04:10 ABG Carboxyhemoglobin 1.3 % (0.0-5.0) 03/12/22 04:10 ABG Methemoglobin 0.4 % (0.0-1.5) 03/12/22 04:10 Oxyhemoglobin 95.5 % (95.0-99.0) 03/12/22 04:10 FiO2 35 % 03/12/22 04:10 Sodium 128 mmol/L (137-145) L 03/12/22 04:20 Potassium 3.2 mmol/L (3.6-5.0) L 03/12/22 04:20 Chloride 93.9 mmol/L (98-107) L 03/12/22 04:20 Carbon Dioxide 23 mmol/L (22-30) 03/12/22 04:20 Anion Gap 14 mmol/L 03/12/22 04:20 BUN 4 mg/dL (7-17) L 03/12/22 04:20 Creatinine 0.2 mg/dL (0.6-1.2) L 03/12/22 04:20 Estimated GFR > 60 ml/min 03/12/22 04:20 BUN/Creatinine Ratio 20 % 03/12/22 04:20 Glucose 103 mg/dL (65-100) H 03/12/22 04:20 Osmolality 285 Mosm/kg 03/10/22 12:24 Lactic Acid 1.70 mmol/L (0.7-2.0) 03/11/22 05:00 Uric Acid 1.6 mg/dL (3.5-7.6) L 03/10/22 13:15 Calcium 7.4 mg/dL (8.4-10.2) L 03/12/22 04:20 Phosphorus 1.10 mg/dL (2.5-4.5) L 03/12/22 04:20 Magnesium 2.40 mg/dL (1.7-2.3) H 03/12/22 04:20 Ferritin 219.2 ng/mL (10.0-200.0) H 03/10/22 05:45 Total Bilirubin 0.50 mg/dL (0.1-1.2) 03/10/22 01:25 AST 16 units/L (5-40) 03/10/22 01:25 ALT 5 units/L (7-56) L 03/10/22 01:25 Alkaline Phosphatase 61 units/L (35-129) 03/10/22 01:25 Lactate Dehydrogenase 210 units/L (91-180) H 03/10/22 05:45 Total Creatine Kinase 901 units/L (30-135) H 03/10/22 12:24 CK-MB (CK-2) 15.3 ng/mL (0.0-4.0) H 03/10/22 12:24 CK-MB (CK-2) Rel Index 1.6 (0-4) 03/10/22 12:24 Troponin T 0.032 ng/mL (0.00-0.029) H D 03/10/22 12:24 C-Reactive Protein < 0.03 mg/dL (0.00-1.30) 03/10/22 05:45 NT-Pro-B Natriuret Pep 46106 pg/mL (0-900) H 03/10/22 01:25 Total Protein 5.4 g/dL (6.3-8.2) L 03/10/22 01:25 Albumin 3.6 g/dL (3.9-5) L 03/10/22 01:25 Albumin/Globulin Ratio 2.0 % 03/10/22 01:25 Triglycerides 47 mg/dL (2-149) 03/10/22 01:25 Cholesterol 259 mg/dL (50-199) H 03/10/22 01:25 LDL Cholesterol Direct 187 mg/dL (50-130) H 03/10/22 01:25 HDL Cholesterol 63 mg/dL (40-59) H 03/10/22 01:25 Cholesterol/HDL Ratio 4.11 % 03/10/22 01:25 Lipase 15 units/L (13-60) 03/10/22 01:25 Procalcitonin 3.92 ng/mL (<0.15) 03/10/22 05:45 Urine Color Yellow (Yellow) 03/10/22 18:20 Urine Turbidity Clear (Clear) 03/10/22 18:20 Urine pH 6.0 (5.0-7.0) 03/10/22 18:20 Ur Specific [place] 1.010 (1.003-1.030) 03/10/22 18:20 Urine Protein <15 mg/dl mg/dL (Negative) 03/10/22 18:20 Urine Glucose (UA) Neg mg/dL (Negative) 03/10/22 18:20 Urine Ketones Tr mg/dL (Negative) 03/10/22 18:20 Urine Blood Sm (Negative) 03/10/22 18:20 Urine Nitrite Neg (Negative) 03/10/22 18:20 Urine Bilirubin Neg (Negative) 03/10/22 18:20 Urine Urobilinogen < 2.0 mg/dL (<2.0) 03/10/22 18:20 Ur Leukocyte Esterase Lg (Negative) 03/10/22 18:20 Urine WBC (Auto) 105.0 /HPF (0.0-6.0) H 03/10/22 18:20 Urine RBC (Auto) 2.0 /HPF (0.0-6.0) 03/10/22 18:20 U Epithel Cells (Auto) < 1.0 /HPF (0-13.0) 03/10/22 18:20 Urine Bacteria (Auto) 1+ /HPF (Negative) 03/10/22 18:20 Urine Osmolality 368 Mosm/kg 03/10/22 18:20 Urine Sodium 64 mmol/L 03/10/22 18:20 Urine Opiates Screen Presumptive positive 03/10/22 18:20 Urine Methadone Screen Presumptive negative 03/10/22 18:20 Ur Barbiturates Screen Presumptive negative 03/10/22 18:20 Ur Phencyclidine Scrn Presumptive negative 03/10/22 18:20 Ur Amphetamines Screen Presumptive negative 03/10/22 18:20 U Benzodiazepines Scrn Presumptive negative 03/10/22 18:20 Urine Cocaine Screen Presumptive negative 03/10/22 18:20 U Marijuana (THC) Screen Presumptive negative 03/10/22 18:20 Drugs of Abuse Note Disclamer 03/10/22 18:20 SARS-CoV-2 (PCR) Negative (Negative) 03/10/22 09:50 Microbiology: Microbiology 03/10/22 01:25 Peripheral/Venous Blood Culture - Preliminary NO GROWTH AFTER 48 HOURS 03/10/22 01:59 Peripheral/Venous Blood Culture - Preliminary NO GROWTH AFTER 48 HOURS 03/10/22 12:45 Tracheal Aspirate Sputum Culture - Preliminary [place]/IV: Voiding Method External Female Catheter Active Medications - Current Medications Current Medications: Generic Name Dose Route Start Last Admin Trade Name Freq PRN Reason Stop Dose Admin Acetaminophen 650 mg 03/10/22 02:56 Acetaminophen 650 Mg Rect Supp RI Q6H PRN Pain MILD(1-3)/Fever >100.5/ARREAGA Enoxaparin Sodium 40 mg 03/12/22 10:00 03/12/22 10:04 Enoxaparin 40 Mg/0.4 Ml Inj SUB-Q 40 mg QDAY@1000 SHAHBAZ Administration Protocol Famotidine 20 mg 03/12/22 10:00 03/12/22 10:05 Famotidine 20 Mg Tab FEEDTUBE 20 mg BID SHAHBAZ Administration Fentanyl 50 mcg 03/10/22 10:58 Fentanyl 100 Mcg/2 Ml Inj IV Q10MIN PRN ANALGESIA Hydrophilic Ointment 1 applic 03/10/22 11:03 Lip Therapy Vaseline TP Q2HR PRN Dry Lips Ceftriaxone Sodium 2 gm in 100 mls @ 200 mls/hr 03/10/22 10:00 03/12/22 10:04 Rocephin/Ns 2 Gm/100 Ml IV 200 mls/hr Q24HR SHAHBAZ Administration Protocol Azithromycin 500 mg in 250 mls @ 250 mls/hr 03/10/22 10:00 03/12/22 10:04 Zithromax/Ns IV 250 mls/hr Q24HR SHAHBAZ Administration Protocol Fentanyl Citrate 2,000 mcg in 100 mls @ 4.16 mls/hr 03/10/22 11:00 03/12/22 11:25 Fentanyl Drip Premix IV 4 mcg/kg/hr TITR SHAHBAZ 16.64 mls/hr Administration Protocol 1 MCG/KG/HR NORepinephrine/NS 8 MG-250 ML 8 mg in 250 mls @ 3.75 mls/hr 03/10/22 11:00 03/12/22 11:15 Norepinephrine/Ns 8 Mg-250 Ml (Double Conc) IV 4 mcg/min TITRATE SHAHBAZ 7.5 mls/hr Titration Protocol 2 MCG/MIN Sodium Phosphate 45 mmol/ 515 mls @ 84 mls/hr 03/12/22 08:15 03/12/22 08:35 Sodium Chloride IV 03/12/22 12:15 84 mls/hr ONCE@0815 SHAHBAZ Administration Levetiracetam 500 mg 03/12/22 10:00 03/12/22 10:05 Levetiracetam 500 Mg/5 Ml Oral Liqd FEEDTUBE 500 mg BID SHAHBAZ Administration Magnesium Hydroxide 30 ml 03/10/22 02:56 Magnesium Hydroxide (Mom) Oral Liqd Udc PO Q4H PRN Constipation Multi-Ingred Cream/Lotion/Oil/Oint 1 applic 03/10/22 11:03 Mineral Oil/Petrolatum, White Ophth Oint 3.5 Gm OU Q4HR PRN Dry Eye(s) Ondansetron HCl 4 mg 03/10/22 02:56 Ondansetron 4 Mg/2 Ml Inj IV Q8H PRN Nausea And Vomiting Polyethylene Glycol 17 gm 03/12/22 10:00 03/12/22 10:04 Polyethylene Glycol 3350 17 Gm Powder FEEDTUBE 17 gm QDAY SHAHBAZ Administration Potassium Chloride 40 meq 03/12/22 10:00 03/12/22 10:04 Potassium Chloride 20 Meq Packet FEEDTUBE 03/12/22 14:01 40 meq Q4HR SHAHBAZ Administration Senna/Docusate Sodium 1 tab 03/10/22 22:00 03/12/22 10:05 Sennosides/Docusate Sodium 8.6/50 Mg Tab FEEDTUBE 1 tab BID SHAHBAZ Administration Sodium Chloride 10 ml 03/10/22 10:00 03/12/22 10:05 Sodium Chloride 0.9% 10 Ml Flush Syringe IV 10 ml BID SHAHBAZ Administration Sodium Chloride 10 ml 03/10/22 02:56 Sodium Chloride 0.9% 10 Ml Flush Syringe IV PRN PRN LINE FLUSH Nutrition/Malnutrition Assess - Dietary Evaluation Nutrition/Malnutrition Findings: Nutrition Notes Start: 03/10/22 12:22 Freq: Status: Active Protocol: Document 03/10/22 12:22 RS (Rec: 03/10/22 12:45 RS [id number]) Nutrition Notes Need for Assessment generated from: MD Order Initial or Follow up Assessment Current Diagnosis Sepsis,Heart Failure, Respiratory Failure, Hyperlipidemia Other Pertinent Diagnosis Pneu, Lactic Acidosis, hyponatremia,MS Current Diet NPO Labs/Tests Na:119 K+:3.1 Cl:88.1 CO2:16 Cr:0.3 GLU:146 M.3 NT-Pro-B natriuret Pep: 31109 Pertinent Medications NaCl 0.9% at 125mL/hr KCl at 100mL/hr Fentanyl: 4.16mL/hr Norepinephrine: 3.75mL/hr Height 5 ft 6 in Weight 83.2 kg Vi[place] Body Weight (kg) 59.09 BMI 29.6 Weight change and time frame KATHERINE wt hx Weight Status Overweight Subjective/Other Information MD consult for nutritional intake evaluation and TF. RD unable to assess wt/diet hx from pt d/t SOB and unable to provide information. Electrolytes abnormal along with several other labs. RD noted multiple skin wounds on pt. Pt currently NPO and not on vent. Percent of energy/protein needs met: 0%/0% Burn Absent Trauma Absent GI Symptoms None Current % PO Negligible Minimum of two criteria No physical signs of malnutrition #1 Nutrition Diagnosis Inadequate oral intake Etiology pneu & CHF As Evidenced by Signs and Symptoms pt currently NPO Is patient on ventilator? No Is Patient Ambulatory and/or Out of Bed No REE-([facility]-confined to bed) 1713.168 Calculation Used for Recommendations [facility] Additional Notes Pro: 83-100g/day (1.0-1.2g/kg BW/day not on vent)// 100-166g /day (1.2-2g/kg BW/day on vent ) Fluid needs: 1500-1900mL/day or per MD Nutrition Intervention Change Diet Order: Start TF Nutrition Support: Vital AF 1.2 at 60mL/hr Kcal 1,728 Protein (gm) 108 Fluid (mL) 1,168 Goal #1 Pt will meet at least 75% of kcal/PRO needs via TF Anticipated Discharge Needs: KATHERINE at this time Follow-Up By: 03/12/22 Additional Comments F/U for TF inititation/ tolerance <JESUS ARECHIGA - Last Filed: 03/20/22 07:14> Assessment and Plan Assessment and plan: I saw and evaluated the patient. I agree with the findings and the plan of care as documented in the Nurse Practitioner's~note, with the following corrections and additions. Hospitalist Physical - Constitutional Vitals: Temp Pulse Resp BP Pulse Ox 98.0 F 100 H 27 H 107/69 99 03/20/22 07:10 03/20/22 07:00 03/20/22 07:00 03/20/22 07:00 03/20/22 07:00 HEART Score - HEART Score Troponin: Troponin T 0.032 ng/mL (0.00-0.029) H D 03/10/22 12:24 Results - Labs CBC & Chem 7: 03/20/22 05:20 03/20/22 05:20 Labs: Laboratory Last Values WBC 29.5 K/mm3 (4.5-11.0) H 03/20/22 05:20 RBC 2.76 M/mm3 (3.65-5.03) L 03/20/22 05:20 Hgb 7.6 gm/dl (10.1-14.3) L 03/20/22 05:20 Hct 23.7 % (30.3-42.9) L 03/20/22 05:20 MCV 86 fl (79-97) 03/20/22 05:20 MCH 27 pg (28-32) L 03/20/22 05:20 MCHC 32 % (30-34) 03/20/22 05:20 RDW 16.6 % (13.2-15.2) H 03/20/22 05:20 Plt Count 415 K/mm3 (140-440) 03/20/22 05:20 Lymph % (Auto) 8.9 % (13.4-35.0) L 03/11/22 05:00 [place] % (Auto) 4.2 % (0.0-7.3) 03/11/22 05:00 Eos % (Auto) 0.1 % (0.0-4.3) 03/11/22 05:00 Baso % (Auto) 0.2 % (0.0-1.8) 03/11/22 05:00 Lymph # (Auto) 1.2 K/mm3 (1.2-5.4) 03/11/22 05:00 [place] # (Auto) 0.6 K/mm3 (0.0-0.8) 03/11/22 05:00 Eos # (Auto) 0.0 K/mm3 (0.0-0.4) 03/11/22 05:00 Baso # (Auto) 0.0 K/mm3 (0.0-0.1) 03/11/22 05:00 Add Manual Diff Complete 03/18/22 05:20 Total Counted 200 03/18/22 05:20 Seg Neutrophils % 86.6 % (40.0-70.0) H 03/11/22 05:00 Seg Neuts % (Manual) 89.0 % (40.0-70.0) H 03/18/22 05:20 Band Neutrophils % 0 % 03/18/22 05:20 Lymphocytes % (Manual) 7.5 % (13.4-35.0) L 03/18/22 05:20 Reactive Lymphs % (Man) 0 % 03/18/22 05:20 Monocytes % (Manual) 3.0 % (0.0-7.3) 03/18/22 05:20 Eosinophils % (Manual) 0.5 % (0.0-4.3) 03/18/22 05:20 Basophils % (Manual) 0 % (0.0-1.8) 03/18/22 05:20 Metamyelocytes % 0 % 03/18/22 05:20 Myelocytes % 0 % 03/18/22 05:20 Promyelocytes % 0 % 03/18/22 05:20 Blast Cells % 0 % 03/18/22 05:20 Nucleated RBC % Not Reportable 03/18/22 05:20 Seg Neutrophils # 11.8 K/mm3 (1.8-7.7) H 03/11/22 05:00 Seg Neutrophils # Man 21.3 K/mm3 (1.8-7.7) H 03/18/22 05:20 Band Neutrophils # 0.0 K/mm3 03/18/22 05:20 Lymphocytes # (Manual) 1.8 K/mm3 (1.2-5.4) 03/18/22 05:20 Abs React Lymphs (Man) 0.0 K/mm3 03/18/22 05:20 Monocytes # (Manual) 0.7 K/mm3 (0.0-0.8) 03/18/22 05:20 Eosinophils # (Manual) 0.1 K/mm3 (0.0-0.4) 03/18/22 05:20 Basophils # (Manual) 0.0 K/mm3 (0.0-0.1) 03/18/22 05:20 Metamyelocytes # 0.0 K/mm3 03/18/22 05:20 Myelocytes # 0.0 K/mm3 03/18/22 05:20 Promyelocytes # 0.0 K/mm3 03/18/22 05:20 Blast Cells # 0.0 K/mm3 03/18/22 05:20 WBC Morphology Not Reportable 03/18/22 05:20 Hypersegmented Neuts Not Reportable 03/18/22 05:20 Hyposegmented Neuts Not Reportable 03/18/22 05:20 Hypogranular Neuts Not Reportable 03/18/22 05:20 Smudge Cells Not Reportable 03/18/22 05:20 Toxic Granulation Not Reportable 03/18/22 05:20 Toxic Vacuolation Not Reportable 03/18/22 05:20 Dohle Bodies Not Reportable 03/18/22 05:20 Pelger-Huet Anomaly Not Reportable 03/18/22 05:20 Luis Rods Not Reportable 03/18/22 05:20 Platelet Estimate Consistent w auto 03/18/22 05:20 Clumped Platelets Not Reportable 03/18/22 05:20 Plt Clumps, EDTA Not Reportable 03/18/22 05:20 Large Platelets Not Reportable 03/18/22 05:20 Giant Platelets Not Reportable 03/18/22 05:20 Platelet Satelliting Not Reportable 03/18/22 05:20 Plt Morphology Comment Not Reportable 03/18/22 05:20 RBC Morphology Not Reportable 03/18/22 05:20 Dimorphic RBCs Not Reportable 03/18/22 05:20 Polychromasia Not Reportable 03/18/22 05:20 Hypochromasia 1+ 03/18/22 05:20 Poikilocytosis Not Reportable 03/18/22 05:20 Anisocytosis 1+ 03/18/22 05:20 Microcytosis Not Reportable 03/18/22 05:20 Macrocytosis Not Reportable 03/18/22 05:20 Spherocytes Not Reportable 03/18/22 05:20 Pappenheimer Bodies Not Reportable 03/18/22 05:20 Sickle Cells Not Reportable 03/18/22 05:20 Target Cells Few 03/18/22 05:20 Tear Drop Cells Not Reportable 03/18/22 05:20 Ovalocytes Not Reportable 03/18/22 05:20 Helmet Cells Not Reportable 03/18/22 05:20 [place] Bodies Not Reportable 03/18/22 05:20 [place] Rings Not Reportable 03/18/22 05:20 Rudy Cells Not Reportable 03/18/22 05:20 Bite Cells Not Reportable 03/18/22 05:20 Crenated Cell Not Reportable 03/18/22 05:20 Elliptocytes Not Reportable 03/18/22 05:20 Acanthocytes (Spur) Not Reportable 03/18/22 05:20 Rouleaux Not Reportable 03/18/22 05:20 Hemoglobin C Crystals Not Reportable 03/18/22 05:20 Schistocytes Not Reportable 03/18/22 05:20 Malaria parasites Not Reportable 03/18/22 05:20 Tani Bodies Not Reportable 03/18/22 05:20 Hem Pathologist Commnt No 03/18/22 05:20 PT 14.9 Sec. (12.2-14.9) 03/10/22 01:25 INR 1.03 (0.87-1.13) 03/10/22 01:25 D-Dimer 787.78 ng/mlDDU (0-234) H 03/10/22 05:45 ABG pH 7.337 pH Units (7.350-7.450) L 03/19/22 14:40 ABG pCO2 40.0 mm Hg 03/19/22 14:40 ABG pO2 41.2 mm Hg (80.0-90.0) L 03/19/22 14:40 ABG HCO3 20.9 mmol/L (20.0-26.0) 03/19/22 14:40 ABG O2 Saturation 74.8 % (95.0-99.0) L 03/19/22 14:40 ABG O2 Content 8.2 (0.0-44) 03/19/22 14:40 ABG Base Excess -4.5 mmol/L (-2.0-3.0) L 03/19/22 14:40 ABG Hemoglobin 7.9 gm/dl (12.0-16.0) L 03/19/22 14:40 ABG Carboxyhemoglobin 2.0 % (0.0-5.0) 03/19/22 14:40 ABG Methemoglobin 0.5 % (0.0-1.5) 03/19/22 14:40 Oxyhemoglobin 72.9 % (95.0-99.0) L 03/19/22 14:40 FiO2 65 % 03/19/22 14:40 Sodium 141 mmol/L (137-145) D 03/20/22 05:20 Potassium 4.6 mmol/L (3.6-5.0) 03/20/22 05:20 Chloride 102.1 mmol/L (98-107) 03/20/22 05:20 Carbon Dioxide 24 mmol/L (22-30) 03/20/22 05:20 Anion Gap 20 mmol/L 03/20/22 05:20 BUN 96 mg/dL (7-17) H 03/20/22 05:20 Creatinine 1.0 mg/dL (0.6-1.2) 03/20/22 05:20 Estimated GFR 57 ml/min 03/20/22 05:20 BUN/Creatinine Ratio 96 % 03/20/22 05:20 Glucose 141 mg/dL (65-100) H 03/20/22 05:20 POC Glucose 121 mg/dL (70-105) H 03/20/22 06:09 Osmolality 285 Mosm/kg 03/10/22 12:24 Lactic Acid 0.90 mmol/L (0.7-2.0) 03/18/22 05:20 Uric Acid 1.6 mg/dL (3.5-7.6) L 03/10/22 13:15 Calcium 8.6 mg/dL (8.4-10.2) 03/20/22 05:20 Phosphorus 3.70 mg/dL (2.5-4.5) 03/18/22 05:20 Magnesium 2.00 mg/dL (1.7-2.3) 03/18/22 05:20 Ferritin 219.2 ng/mL (10.0-200.0) H 03/10/22 05:45 Total Bilirubin 0.30 mg/dL (0.1-1.2) 03/18/22 05:20 AST 39 units/L (5-40) 03/18/22 05:20 ALT 14 units/L (7-56) 03/18/22 05:20 Alkaline Phosphatase 119 units/L (35-129) 03/18/22 05:20 Lactate Dehydrogenase 210 units/L (91-180) H 03/10/22 05:45 Total Creatine Kinase 901 units/L (30-135) H 03/10/22 12:24 CK-MB (CK-2) 15.3 ng/mL (0.0-4.0) H 03/10/22 12:24 CK-MB (CK-2) Rel Index 1.6 (0-4) 03/10/22 12:24 Troponin T 0.032 ng/mL (0.00-0.029) H D 03/10/22 12:24 C-Reactive Protein < 0.03 mg/dL (0.00-1.30) 03/10/22 05:45 NT-Pro-B Natriuret Pep 63549 pg/mL (0-900) H 03/10/22 01:25 Total Protein 5.4 g/dL (6.3-8.2) L 03/18/22 05:20 Albumin 2.0 g/dL (3.9-5) L 03/18/22 05:20 Albumin/Globulin Ratio 0.6 % 03/18/22 05:20 Prealbumin 0.044 g/L (0.200-0.400) L 03/12/22 18:40 Triglycerides 47 mg/dL (2-149) 03/10/22 01:25 Cholesterol 259 mg/dL (50-199) H 03/10/22 01:25 LDL Cholesterol Direct 187 mg/dL (50-130) H 03/10/22 01:25 HDL Cholesterol 63 mg/dL (40-59) H 03/10/22 01:25 Cholesterol/HDL Ratio 4.11 % 03/10/22 01:25 Lipase 15 units/L (13-60) 03/10/22 01:25 Vitamin B1 28 nmol/L (8-30) 03/13/22 08:00 Vitamin B12 1021 pg/mL (211-911) H 03/12/22 18:40 Folate 2.15 ng/mL (7.3-26.0) L 03/12/22 18:40 Procalcitonin 3.92 ng/mL (<0.15) 03/10/22 05:45 TSH 1.290 mlU/mL (0.270-4.200) 03/12/22 18:40 Urine Color Yellow (Yellow) 03/10/22 18:20 Urine Turbidity Clear (Clear) 03/10/22 18:20 Urine pH 6.0 (5.0-7.0) 03/10/22 18:20 Ur Specific [place] 1.010 (1.003-1.030) 03/10/22 18:20 Urine Protein <15 mg/dl mg/dL (Negative) 03/10/22 18:20 Urine Glucose (UA) Neg mg/dL (Negative) 03/10/22 18:20 Urine Ketones Tr mg/dL (Negative) 03/10/22 18:20 Urine Blood Sm (Negative) 03/10/22 18:20 Urine Nitrite Neg (Negative) 03/10/22 18:20 Urine Bilirubin Neg (Negative) 03/10/22 18:20 Urine Urobilinogen < 2.0 mg/dL (<2.0) 03/10/22 18:20 Ur Leukocyte Esterase Lg (Negative) 03/10/22 18:20 Urine WBC (Auto) 105.0 /HPF (0.0-6.0) H 03/10/22 18:20 Urine RBC (Auto) 2.0 /HPF (0.0-6.0) 03/10/22 18:20 U Epithel Cells (Auto) < 1.0 /HPF (0-13.0) 03/10/22 18:20 Urine Bacteria (Auto) 1+ /HPF (Negative) 03/10/22 18:20 Urine Osmolality 368 Mosm/kg 03/10/22 18:20 Urine Creatinine 34.4 mg/dL (0.1-20.0) H 03/19/22 14:40 Urine Sodium 18 mmol/L 03/19/22 14:40 Urine Opiates Screen Presumptive positive 03/10/22 18:20 Urine Methadone Screen Presumptive negative 03/10/22 18:20 Ur Barbiturates Screen Presumptive negative 03/10/22 18:20 Ur Phencyclidine Scrn Presumptive negative 03/10/22 18:20 Ur Amphetamines Screen Presumptive negative 03/10/22 18:20 U Benzodiazepines Scrn Presumptive negative 03/10/22 18:20 Urine Cocaine Screen Presumptive negative 03/10/22 18:20 U Marijuana (THC) Screen Presumptive negative 03/10/22 18:20 Drugs of Abuse Note Disclamer 03/10/22 18:20 Copper 118 mcg/dL (70-175) 03/12/22 18:40 Syphilis IgG/IgM Ab Nonreactive (NonReactive) 03/12/22 18:40 SARS-CoV-2 (PCR) Negative (Negative) 03/10/22 09:50 Blood Type O POSITIVE 03/15/22 09:42 Antibody Screen Negative 03/15/22 09:42 Crossmatch See Detail 03/15/22 09:42 Microbiology: Microbiology 03/18/22 17:40 Tracheal Aspirate Sputum Culture - Preliminary 03/18/22 15:12 Peripheral/Venous Blood Culture - Preliminary NO GROWTH AFTER 24 HOURS 03/18/22 15:12 Peripheral/Venous Blood Culture - Preliminary NO GROWTH AFTER 24 HOURS [place]/IV: Voiding Method Indwelling Catheter Active Medications - Current Medications Current Medications: Generic Name Dose Route Start Last Admin Trade Name Freq PRN Reason Stop Dose Admin Acetaminophen 650 mg 03/13/22 05:50 03/19/22 18:38 Acetaminophen 325 Mg/10.15 Ml Oral Liqd Unit Dose FEEDTUBE 650 mg Q6H PRN Administration Non Cardiac Pain or Temp>100.5 Bisacodyl 10 mg 03/15/22 10:00 Bisacodyl 5 Mg Tab PO QDAY PRN Constipation Enoxaparin Sodium 40 mg 03/12/22 10:00 03/19/22 09:54 Enoxaparin 40 Mg/0.4 Ml Inj SUB-Q 40 mg QDAY@1000 SHAHBAZ Administration Protocol Famotidine 20 mg 03/12/22 10:00 03/19/22 21:26 Famotidine 20 Mg Tab FEEDTUBE 20 mg BID SHAHBAZ Administration Fentanyl 50 mcg 03/10/22 10:58 03/14/22 20:48 Fentanyl 100 Mcg/2 Ml Inj IV 50 mcg Q10MIN PRN Administration ANALGESIA Hydrophilic Ointment 1 applic 03/10/22 11:03 Lip Therapy Vaseline TP Q2HR PRN Dry Lips Fentanyl Citrate 2,000 mcg in 100 mls @ 4.16 mls/hr 03/10/22 11:00 03/20/22 07:08 Fentanyl Drip Premix IV 3 mcg/kg/hr TITR SHAHBAZ 12.48 mls/hr Titration Protocol 1 MCG/KG/HR NORepinephrine/NS 8 MG-250 ML 8 mg in 250 mls @ 3.75 mls/hr 03/10/22 11:00 03/19/22 10:00 Norepinephrine/Ns 8 Mg-250 Ml (Double Conc) IV 3 mcg/min TITRATE SHAHBAZ 5.625 mls/hr Titration Protocol 2 MCG/MIN Meropenem/Sodium Chloride 1 gram in 100 mls @ 100 mls/hr 03/14/22 22:00 03/19/22 21:28 Merrem/Ns 1 Gram/100 Ml IV 100 mls/hr Q8H SHAHBAZ Administration Protocol Sodium Bicarbonate 150 meq/ 1,150 mls @ 75 mls/hr 03/19/22 16:00 03/19/22 17:30 Dextrose IV 03/21/22 07:19 75 mls/hr DIRECT SHAHBAZ Administration Levetiracetam 500 mg 03/12/22 10:00 03/19/22 21:26 Levetiracetam 500 Mg/5 Ml Oral Liqd FEEDTUBE 500 mg BID SHAHBAZ Administration Magnesium Hydroxide 30 ml 03/10/22 02:56 Magnesium Hydroxide (Mom) Oral Liqd Udc PO Q4H PRN Constipation Multi-Ingred Cream/Lotion/Oil/Oint 1 applic 03/10/22 11:03 Mineral Oil/Petrolatum, White Ophth Oint 3.5 Gm OU Q4HR PRN Dry Eye(s) Ondansetron HCl 4 mg 03/10/22 02:56 Ondansetron 4 Mg/2 Ml Inj IV Q8H PRN Nausea And Vomiting Polyethylene Glycol 17 gm 03/12/22 10:00 03/19/22 09:55 Polyethylene Glycol 3350 17 Gm Powder FEEDTUBE Not Given QDAY SHAHBAZ Scopolamine 1 each 03/21/22 10:00 Scopolamine Transdermal Patch 72 Hr TD Q3D SHAHBAZ Senna/Docusate Sodium 2 tab 03/14/22 10:00 03/19/22 21:27 Sennosides/Docusate Sodium 8.6/50 Mg Tab FEEDTUBE Not Given Q12H SHAHBAZ Sodium Chloride 10 ml 03/10/22 10:00 03/19/22 21:27 Sodium Chloride 0.9% 10 Ml Flush Syringe IV Not Given BID SHAHBAZ Sodium Chloride 10 ml 03/10/22 02:56 Sodium Chloride 0.9% 10 Ml Flush Syringe IV PRN PRN LINE FLUSH Nutrition/Malnutrition Assess - Dietary Evaluation Nutrition/Malnutrition Findings: Nutrition Notes Start: 03/10/22 12:22 Freq: Status: Active Protocol: Document 03/14/22 12:08 JOSH (Rec: 03/14/22 12:31 JOSH [email or web address]) Nutrition Notes Initial or Follow up Brief Note Current Diagnosis Sepsis,Hypertension, Respiratory Failure, Malnutrition Other Pertinent Diagnosis MS, CAP, Seizure, Metabolic Encephalopathy, Hyponatremia, Hypokalemia, ... Current Diet TF-Vital AF 1.2 En @ 60 ml/hr (since D 03/10). Height 5 ft 6 in Weight 83.2 kg Viola Body Weight (kg) 59.09 BMI 29.6 Weight change and time frame No body weight change reported in 4 days. Weight Status Overweight Subjective/Other Information RD consult for routine F/U on TF tolerance/continuation. TF continues as prescribed, and well tolerated, according to RN notes. Pt remains on Mechanical Ventilation, O2 saturation @ 97%, according to Physical Assessment History notes. Pt presents an unspecified area of concern for skin risk with redness and flakiness, according to Physical Assessment History notes. Percent of energy/protein needs met: Prescribed TF-Vital AF 1.2 En @ 60 ml/hr provides for energy/protein needs (1,728 Kcal/108 g) during LOS, 100% Kcal; 100% AA. #1 Nutrition Diagnosis Inadequate oral intake Diagnosis Progress(for reassessment Continues documentation) Is patient on ventilator? Yes Is Patient Ambulatory and/or Out of Bed No REE-(Kendrick-St. Jeor-confined to bed) 1713.168 Calculation Used for Recommendations Kendrick-St or Additional Notes Protein: 1-1.2 g/Kg ABW; 100- 166 g/day. Fluids: 1 ml/Kcal, or as per MD. Nutrition Intervention Nutrition Support: Continue TF-Vital AF 1.2 En @ 60 ml/hr. Flush: 100 ml water Q 4 hr, or as per MD. Kcal 1,728 Protein (gm) 108 Carbohydrates (gm) 159 Fat (gm) 78 Fluid (mL) 1,168 Fiber (gm) 7 % RDI: 100% Kcal; 100% AA. Goal #1 Provide at least 75% of energy /protein needs through Enteral Feeding during LOS. Follow-Up By: 03/21/22 Additional Comments Continue monitoring TF tolerance, Ventilation Status, Pressor support, and BM.
--- NOTE | 2022-03-12 12:35 | Progress Note ---
Assessment and Plan Acute Hypoxemic Respiratory Failure on MVS Multifocal Pneumonia/CAP Severe Hyponatremia Septic shock Lactic Acidosis NSTEMI/Elevated Troponin Elevated BNP Hypokalemia R/o COVID Acute Metabolic Encephalopathy H/o Seizure Disorder Elevated D-Dimer Moderate Protein Calorie Malnutrition - reduced set rate to 12/min - received NaPhos supplementation - lasix 20 mg IV X 1 re: +ve fluid balance - titrate vasopressor support to keep MAP>65 - continue Ceftriaxone and Azithromycin (empiric 5 days) - Daily SAT and SBT assessment as tolerated - continue to wean supplemental oxygen for target O2 sat's > 90% acutely - VAP bundle addressed - continue lung protective strategies - continue bronchodilators with pulmonary hygiene per RT - wean per pulmonary driven protocols otherwise - continue accuchecks with glycemic control per SSI (While critically ill target blood glucose of 140-180 mg/dL; avoid hypoglycemia) - sedation prn for target RASS 0 to -1 - avoid nephrotoxins, renally dose all medications - continue to avoid benzodiazepine's, reduce the possibility of delirium - complete AB's per ID rec's - prn analgesia per CPOT score - Maintenance of sleep-wake cycle, avoid delirium - continue enteral nutritional support at goal rate as tolerated - G.I. & VTE prophylaxis - PT/OT/ROM exercises - continue mobility protocols for pressure ulcer prophylaxis - Monitor hemodynamics closely - continue other care per attending / other consultants - discharge planning ongoing concurrently COVID SPECIFIC INTERVENTIONS - COVID-19 PCR negative .... Re-evaluate in am & prn CONDITION: CRITICAL PROGNOSIS: GUARDED CODE STATUS: FULL CODE The high probability of a clinically significant, sudden or life-threatening deterioration of the [respiratory, cardiovascular & neurologic] system(s) required my full and direct attention, intervention and personal management. The aggregate critical care time was [34] minutes without overlap. Time includes spent on; [x] Data Review and interpretation [x] Patient assessment and monitoring of vital signs [x] Documentation [x] Medication orders and management Subjective Date of service: 03/12/22 Principal diagnosis: AHRF; Multifocal Pneumonia; Septic shock; NSTEMI; AMS; Seizures Interval history: Patient is seen today for: Acute Hypoxemic Respiratory Failure; Multifocal Pneumonia/CAP; Hyponatremia; Septic shock; NSTEMI; AMS; Seizure Disorder; Moderate Protein Calorie Malnutrition Seen and examined at bedside; 24hour events reviewed; nursing and respiratory care staff consulted; no adverse overnight events reported to me; resting peacefully in bed; remains on Levophed @ 6 stanton's/min; CXR with worsening pulmonary infiltrates in a pulmonary edema pattern; no emesis or overt aspiration Objective Vital Signs - 12hr 03/12/22 03/12/22 03/12/22 00:45 00:53 01:00 Temperature Pulse Rate 90 95 H 95 H Pulse Rate [ From Monitor] Respiratory 20 20 Rate Blood Pressure 91/65 97/68 O2 Sat by Pulse 98 98 96 Oximetry 03/12/22 03/12/22 03/12/22 01:15 01:30 01:45 Temperature Pulse Rate 90 84 87 Pulse Rate [ From Monitor] Respiratory 20 20 20 Rate Blood Pressure 95/68 92/62 100/61 O2 Sat by Pulse 97 97 96 Oximetry 03/12/22 03/12/22 03/12/22 02:00 02:16 02:30 Temperature Pulse Rate 93 H 97 H 85 Pulse Rate [ From Monitor] Respiratory 20 21 20 Rate Blood Pressure 96/64 114/81 100/68 O2 Sat by Pulse 99 97 97 Oximetry 03/12/22 03/12/22 03/12/22 02:45 03:00 03:15 Temperature Pulse Rate 86 96 H 90 Pulse Rate [ From Monitor] Respiratory 20 20 20 Rate Blood Pressure 100/71 110/70 98/66 O2 Sat by Pulse 98 97 95 Oximetry 03/12/22 03/12/22 03/12/22 03:30 03:45 04:00 Temperature Pulse Rate 89 97 H 103 H Pulse Rate [ 103 H From Monitor] Respiratory 20 20 20 Rate Blood Pressure 96/63 98/68 108/73 O2 Sat by Pulse 97 98 95 Oximetry 03/12/22 03/12/22 03/12/22 04:15 04:30 04:45 Temperature Pulse Rate 87 108 H 101 H Pulse Rate [ From Monitor] Respiratory 20 20 20 Rate Blood Pressure 104/74 106/62 94/64 O2 Sat by Pulse 95 91 95 Oximetry 03/12/22 03/12/22 03/12/22 05:00 05:15 05:30 Temperature Pulse Rate 94 H 97 H 90 Pulse Rate [ From Monitor] Respiratory 20 20 20 Rate Blood Pressure 92/63 92/63 104/74 O2 Sat by Pulse 96 97 96 Oximetry 03/12/22 03/12/22 03/12/22 05:45 06:00 06:15 Temperature Pulse Rate 84 92 H 85 Pulse Rate [ From Monitor] Respiratory 16 16 16 Rate Blood Pressure 94/55 98/64 96/67 O2 Sat by Pulse 97 98 96 Oximetry 03/12/22 03/12/22 03/12/22 06:30 06:46 07:00 Temperature Pulse Rate 85 90 95 H Pulse Rate [ From Monitor] Respiratory 16 16 16 Rate Blood Pressure 85/63 99/69 96/70 O2 Sat by Pulse 98 98 97 Oximetry 03/12/22 03/12/22 03/12/22 07:15 07:30 07:45 Temperature Pulse Rate 85 93 H 93 H Pulse Rate [ From Monitor] Respiratory 16 16 16 Rate Blood Pressure 89/58 99/68 92/61 O2 Sat by Pulse 99 99 98 Oximetry 03/12/22 03/12/22 03/12/22 08:00 08:15 08:30 Temperature 100.5 F H Pulse Rate 95 H 86 91 H Pulse Rate [ 95 H From Monitor] Respiratory 16 16 16 Rate Blood Pressure 94/66 96/56 98/66 O2 Sat by Pulse 96 96 96 Oximetry 03/12/22 03/12/22 03/12/22 08:45 09:00 09:15 Temperature Pulse Rate 84 93 H 86 Pulse Rate [ From Monitor] Respiratory 16 17 16 Rate Blood Pressure 89/62 95/65 85/62 O2 Sat by Pulse 94 95 97 Oximetry 03/12/22 03/12/22 03/12/22 09:30 09:45 10:00 Temperature Pulse Rate 84 97 H 103 H Pulse Rate [ From Monitor] Respiratory 16 16 17 Rate Blood Pressure 89/63 103/77 107/73 O2 Sat by Pulse 96 94 92 Oximetry 03/12/22 03/12/22 03/12/22 10:15 10:30 10:45 Temperature Pulse Rate 97 H 81 86 Pulse Rate [ From Monitor] Respiratory 16 16 16 Rate Blood Pressure 97/62 83/56 83/58 O2 Sat by Pulse 91 89 90 Oximetry 03/12/22 03/12/22 03/12/22 11:00 11:15 11:30 Temperature Pulse Rate 88 94 H 105 H Pulse Rate [ From Monitor] Respiratory 16 16 16 Rate Blood Pressure 87/55 77/50 79/55 O2 Sat by Pulse 91 92 94 Oximetry 03/12/22 03/12/2203/12/22 11:45 12:00 12:15 Temperature Pulse Rate 112 H 105 H 100 H Pulse Rate [ 105 H From Monitor] Respiratory 16 16 25 H Rate Blood Pressure 80/57 85/61 87/49 O2 Sat by Pulse 93 95 93 Oximetry Constitutional: no acute distress, alert Eyes: non-icteric ENT: oropharynx moist, other (ETT 24 cm BLANCA) Effort: mildly labored Ascultation: Bilateral: rales Percussion: Bilateral: not dull Cardiovascular: regular rate and rhythm Gastrointestinal: normoactive bowel sounds, soft, non-tender, non-distended Integumentary: normal Extremities: no cyanosis, no edema, pulses normal, no ischemia or petechiae Neurologic: pupils equal and round, unable to assess, other (weak) Psychiatric: other (unable to assess re: AMS) CBC and BMP: 03/12/22 04:20 03/12/22 04:20 ABG, PT/INR, D-dimer: ABG ABG pH 7.482 pH Units (7.350-7.450) H 03/12/22 04:10 ABG pCO2 32.1 mm Hg 03/12/22 04:10 ABG pO2 65.5 mm Hg (80.0-90.0) L 03/12/22 04:10 ABG O2 Saturation 97.1 % (95.0-99.0) 03/12/22 04:10 PT/INR, D-dimer PT 14.9 Sec. (12.2-14.9) 03/10/22 01:25 INR 1.03 (0.87-1.13) 03/10/22 01:25 D-Dimer 787.78 ng/mlDDU (0-234) H 03/10/22 05:45 Abnormal lab findings: Abnormal Labs 03/10/22 03/10/22 03/10/22 01:19 01:25 01:25 WBC RBC Hgb Hct RDW 15.4 H Lymph % (Auto) 12.4 L Lymph # (Auto) 1.1 L Seg Neutrophils % 85.9 H Seg Neutrophils # D-Dimer ABG pH ABG pO2 59.3 L ABG HCO3 16.7 L ABG O2 Saturation 92.3 L ABG Base Excess -7.8 L ABG Hemoglobin 11.4 L Oxyhemoglobin 90.8 L Sodium 119 L* Potassium 3.1 L Chloride 88.1 L Carbon Dioxide 16 L BUN Creatinine 0.3 L Glucose 146 H POC Glucose Lactic Acid Uric Acid Calcium 8.2 L Phosphorus Magnesium 1.30 L Ferritin ALT 5 L Lactate Dehydrogenase Total Creatine Kinase CK-MB (CK-2) Troponin T NT-Pro-B Natriuret Pep Total Protein 5.4 L Albumin 3.6 L Cholesterol LDL Cholesterol Direct HDL Cholesterol Urine WBC (Auto) 03/10/22 03/10/22 03/10/22 01:25 01:25 01:25 WBC RBC Hgb Hct RDW Lymph % (Auto) Lymph # (Auto) Seg Neutrophils % Seg Neutrophils # D-Dimer ABG pH ABG pO2 ABG HCO3 ABG O2 Saturation ABG Base Excess ABG Hemoglobin Oxyhemoglobin Sodium Potassium Chloride Carbon Dioxide BUN Creatinine Glucose POC Glucose Lactic Acid 3.60 H* Uric Acid Calcium Phosphorus Magnesium Ferritin ALT Lactate Dehydrogenase Total Creatine Kinase CK-MB (CK-2) 4.6 H Troponin T 0.164 H* NT-Pro-B Natriuret Pep 63834 H Total Protein Albumin Cholesterol 259 H LDL Cholesterol Direct 187 H HDL Cholesterol 63 H Urine WBC (Auto) 03/10/22 03/10/22 03/10/22 02:43 05:45 05:45 WBC RBC Hgb Hct RDW Lymph % (Auto) Lymph # (Auto) Seg Neutrophils % Seg Neutrophils # D-Dimer 787.78 H ABG pH ABG pO2 ABG HCO3 ABG O2 Saturation ABG Base Excess ABG Hemoglobin Oxyhemoglobin Sodium Potassium Chloride Carbon Dioxide BUN Creatinine Glucose POC Glucose Lactic Acid 3.70 H* 3.10 H* Uric Acid Calcium Phosphorus Magnesium Ferritin ALT Lactate Dehydrogenase Total Creatine Kinase CK-MB (CK-2) Troponin T NT-Pro-B Natriuret Pep Total Protein Albumin Cholesterol LDL Cholesterol Direct HDL Cholesterol Urine WBC (Auto) 03/10/22 03/10/22 03/10/22 05:45 05:45 12:24 WBC RBC Hgb Hct RDW Lymph % (Auto) Lymph # (Auto) Seg Neutrophils % Seg Neutrophils # D-Dimer ABG pH ABG pO2 ABG HCO3 ABG O2 Saturation ABG Base Excess ABG Hemoglobin Oxyhemoglobin Sodium 124 L Potassium 3.3 L Chloride Carbon Dioxide 11 L BUN Creatinine 0.2 L Glucose POC Glucose Lactic Acid Uric Acid Calcium 6.9 L D Phosphorus Magnesium Ferritin 219.2 H ALT Lactate Dehydrogenase 210 H Total Creatine Kinase CK-MB (CK-2) Troponin T NT-Pro-B Natriuret Pep Total Protein Albumin Cholesterol LDL Cholesterol Direct HDL Cholesterol Urine WBC (Auto) 03/10/22 03/10/22 03/10/22 12:24 12:24 12:24 WBC RBC Hgb Hct RDW Lymph % (Auto) Lymph # (Auto) Seg Neutrophils % Seg Neutrophils # D-Dimer ABG pH ABG pO2 ABG HCO3 ABG O2 Saturation ABG Base Excess ABG Hemoglobin Oxyhemoglobin Sodium 128 L Potassium Chloride Carbon Dioxide BUN Creatinine Glucose POC Glucose Lactic Acid 2.70 H* Uric Acid Calcium Phosphorus Magnesium Ferritin ALT Lactate Dehydrogenase Total Creatine Kinase 901 H CK-MB (CK-2) 15.3 H Troponin T 0.032 H D NT-Pro-B Natriuret Pep Total Protein Albumin Cholesterol LDL Cholesterol Direct HDL Cholesterol Urine WBC (Auto) 03/10/22 03/10/22 03/10/22 12:45 13:15 18:00 WBC RBC Hgb Hct RDW Lymph % (Auto) Lymph # (Auto) Seg Neutrophils % Seg Neutrophils # D-Dimer ABG pH 7.315 L ABG pO2 70.1 L ABG HCO3 15.6 L ABG O2 Saturation 93.8 L ABG Base Excess -9.5 L ABG Hemoglobin 11.0 L Oxyhemoglobin 92.4 L Sodium 129 L Potassium Chloride Carbon Dioxide 17 L BUN Creatinine 0.2 L Glucose POC Glucose Lactic Acid Uric Acid 1.6 L Calcium 7.0 L Phosphorus Magnesium Ferritin ALT Lactate Dehydrogenase Total Creatine Kinase CK-MB (CK-2) Troponin T NT-Pro-B Natriuret Pep Total Protein Albumin Cholesterol LDL Cholesterol Direct HDL Cholesterol Urine WBC (Auto) 03/10/22 03/10/22 03/11/22 18:20 21:05 05:00 WBC 13.7 H RBC 3.44 L Hgb 9.6 L Hct 29.0 L D RDW Lymph % (Auto) 8.9 L Lymph # (Auto) Seg Neutrophils % 86.6 H Seg Neutrophils # 11.8 H D-Dimer ABG pH ABG pO2 116.3 H ABG HCO3 17.2 L ABG O2 Saturation ABG Base Excess -6.4 L ABG Hemoglobin 11.0 L Oxyhemoglobin Sodium Potassium Chloride Carbon Dioxide BUN Creatinine Glucose POC Glucose Lactic Acid Uric Acid Calcium Phosphorus Magnesium Ferritin ALT Lactate Dehydrogenase Total Creatine Kinase CK-MB (CK-2) Troponin T NT-Pro-B Natriuret Pep Total Protein Albumin Cholesterol LDL Cholesterol Direct HDL Cholesterol Urine WBC (Auto) 105.0 H 03/11/22 03/11/22 03/12/22 05:00 Unknown 04:10 WBC RBC Hgb Hct RDW Lymph % (Auto) Lymph # (Auto) Seg Neutrophils % Seg Neutrophils # D-Dimer ABG pH 7.472 H 7.482 H ABG pO2 65.5 L ABG HCO3 19.8 L ABG O2 Saturation ABG Base Excess -2.9 L ABG Hemoglobin 10.1 L 8.4 L Oxyhemoglobin Sodium 132 L Potassium Chloride Carbon Dioxide 20 L BUN 6 L Creatinine 0.2 L Glucose POC Glucose Lactic Acid Uric Acid Calcium 7.5 L Phosphorus Magnesium Ferritin ALT Lactate Dehydrogenase Total Creatine Kinase CK-MB (CK-2) Troponin T NT-Pro-B Natriuret Pep Total Protein Albumin Cholesterol LDL Cholesterol Direct HDL Cholesterol Urine WBC (Auto) 03/12/22 03/12/22 03/12/22 04:20 04:20 12:25 WBC 13.6 H RBC 3.11 L Hgb 8.7 L Hct 26.1 L RDW Lymph % (Auto) Lymph # (Auto) Seg Neutrophils % Seg Neutrophils # D-Dimer ABG pH ABG pO2 ABG HCO3 ABG O2 Saturation ABG Base Excess ABG Hemoglobin Oxyhemoglobin Sodium 128 L Potassium 3.2 L Chloride 93.9 L Carbon Dioxide BUN 4 L Creatinine 0.2 L Glucose 103 H POC Glucose 116 H Lactic Acid Uric Acid Calcium 7.4 L Phosphorus 1.10 L Magnesium 2.40 H Ferritin ALT Lactate Dehydrogenase Total Creatine Kinase CK-MB (CK-2) Troponin T NT-Pro-B Natriuret Pep Total Protein Albumin Cholesterol LDL Cholesterol Direct HDL Cholesterol Urine WBC (Auto) Chest x-ray: image reviewed (increased bilateral infiltrates) Allied health notes reviewed: RT
--- NOTE | 2022-03-12 12:35 | Progress Note ---
Assessment and Plan - Patient Problems (1) Respiratory failure Current Visit: Yes Status: Acute Plan to address problem: Patient has a history of multiple sclerosis, no reported cardiac history, presented to the hospital with respiratory insufficiency and currently on the vent in the ICU. Chest x-ray showed confluent consolidations in both lung fraire consistent with a severe bilateral pneumonia. A COVID-19 test was positive. Cardiac consultation was requested for the finding of a nonspecific, isolated rise in troponin levels. EKG show sinus rhythm with no acute ischemic changes. Echocardiogram done on this presentation shows left ventricular systolic ejection fraction at the lower limits of normal 50%. No acute cardiovascular issues at this time, will continue supportive management of cardiac status, defer treatment of respiratory failure and bilateral pneumonia to internal medicine and pulmonary. Subjective Date of service: 03/12/22 Principal diagnosis: Shortness of breath, bilateral pneumonia Interval history: Patient is sedated, on the vent. Patient has a history of multiple sclerosis, no reported cardiac history, presented to the hospital with respiratory insufficiency and currently on the vent in the ICU. Chest x-ray showed confluent consolidations in both lung fraire consistent with a severe bilateral pneumonia. A COVID-19 test was positive. Cardiac consultation was requested for the finding of a nonspecific, isolated rise in troponin levels. EKG show sinus rhythm with no acute ischemic changes. Echocardiogram done on this presentation shows left ventricular systolic ejection fraction at the lower limits of normal 50%. Objective Vital Signs Temp Pulse Pulse Resp BP Pulse Ox 03/12/22 12:15 100 H 25 H 87/49 93 03/12/22 12:00 105 H 105 H 16 85/61 95 03/12/22 11:45 112 H 16 80/57 93 03/12/22 11:30 105 H 16 79/55 94 03/12/22 11:15 94 H 16 77/50 92 03/12/22 11:00 88 16 87/55 91 03/12/22 10:45 86 16 83/58 90 03/12/22 10:30 81 16 83/56 89 03/12/22 10:15 97 H 16 97/62 91 03/12/22 10:00 103 H 17 107/73 92 03/12/22 09:45 97 H 16 103/77 94 03/12/22 09:30 84 16 89/63 96 03/12/22 09:15 86 16 85/62 97 03/12/22 09:00 93 H 17 95/65 95 03/12/22 08:45 84 16 89/62 94 03/12/22 08:30 91 H 16 98/66 96 03/12/22 08:15 86 16 96/56 96 03/12/22 08:00 100.5 F H 95 H 95 H 16 94/66 96 03/12/22 07:45 93 H 16 92/61 98 03/12/22 07:30 93 H 16 99/68 99 03/12/22 07:15 85 16 89/58 99 03/12/22 07:00 95 H 16 96/70 97 03/12/22 06:46 90 16 99/69 98 03/12/22 06:30 85 16 85/63 98 03/12/22 06:15 85 16 96/67 96 03/12/22 06:00 92 H 16 98/64 98 03/12/22 05:45 84 16 94/55 97 03/12/22 05:30 90 20 104/74 96 03/12/22 05:15 97 H 20 92/63 97 03/12/22 05:00 94 H 20 92/63 96 03/12/22 04:45 101 H 20 94/64 95 03/12/22 04:30 108 H 20 106/62 91 03/12/22 04:15 87 20 104/74 95 03/12/22 04:00 103 H 103 H 20 108/73 95 03/12/22 03:45 97 H 20 98/68 98 03/12/22 03:30 89 20 96/63 97 03/12/22 03:15 90 20 98/66 95 03/12/22 03:00 96 H 20 110/70 97 03/12/22 02:45 86 20 100/71 98 03/12/22 02:30 85 20 100/68 97 03/12/22 02:16 97 H 21 114/81 97 03/12/22 02:00 93 H 20 96/64 99 03/12/22 01:45 87 20 100/61 96 03/12/22 01:30 84 20 92/62 97 03/12/22 01:15 90 20 95/68 97 03/12/22 01:00 95 H 20 97/68 96 03/12/22 00:53 95 H 98 03/12/22 00:45 90 20 91/65 98 03/12/22 00:30 93 H 20 103/66 97 03/12/22 00:15 96 H 20 110/69 95 03/12/22 00:04 88 20 99/70 97 03/12/22 00:00 96 H 96 H 20 99/70 98 03/11/22 23:45 91 H 20 92/64 98 03/11/22 23:30 94 H 20 95/64 96 03/11/22 23:15 98 H 20 103/70 96 03/11/22 23:00 98 H 20 121/76 94 03/11/22 22:45 98 H 20 104/75 94 03/11/22 22:30 101 H 20 106/71 93 03/11/22 22:15 97 H 20 106/70 93 03/11/22 22:00 84 20 103/57 93 03/11/22 21:45 100 H 20 110/74 97 03/11/22 21:30 98 H 20 114/72 99 03/11/22 21:15 95 H 20 103/65 98 03/11/22 21:00 99 H 20 115/74 98 03/11/22 20:45 98 H 20 106/75 98 03/11/22 20:30 97 H 20 112/73 99 03/11/22 20:15 96 H 20 112/70 98 03/11/22 20:00 96 H 96 H 20 115/74 98 03/11/22 19:45 98 H 20 97/69 99 03/11/22 19:30 100 H 20 115/80 98 03/11/22 19:15 98 H 20 99/70 98 03/11/22 19:00 105 H 20 110/71 97 03/11/22 18:45 105 H 20 133/83 97 03/11/22 18:30 104 H 21 126/80 98 03/11/22 18:15 100 H 20 117/70 98 03/11/22 18:00 98 H 20 111/72 97 03/11/22 17:45 98 H 20 109/76 96 03/11/22 17:30 101 H 20 108/73 98 03/11/22 17:15 103 H 21 111/73 95 03/11/22 17:00 89 17 100/54 96 03/11/22 16:45 96 H 20 98/63 96 06/26/22 16:30 103 H 21 122/76 100 03/11/22 16:15 81 20 103/59 98 03/11/22 16:00 95 H 95 H 20 96/60 96 03/11/22 15:53 98 H 20 121/79 96 03/11/22 15:19 94 H 121/79 98 03/11/22 15:16 94 H 20 121/79 97 03/11/22 15:00 94 H 20 107/53 95 03/11/22 14:45 97 H 21 118/82 95 03/11/22 14:30 88 20 105/69 95 03/11/22 14:15 97 H 20 116/75 95 03/11/22 14:00 99 H 20 127/81 94 03/11/22 13:45 103 H 20 115/69 93 03/11/22 13:30 93 H 8 L 106/63 96 03/11/22 13:15 93 H 10 L 102/60 89 03/11/22 13:00 96 H 13 104/66 92 03/11/22 12:45 95 H 14 104/70 91 - Physical Examination General: Other (intubated on mechanical ventilator) HEENT: Positive: PERRL Neck: Positive: neck supple, trachea midline. Negative: JVD/HJR Cardiac: Positive: Reg Rate and Rhythm Lungs: Positive: Decreased Breath Sounds Neuro: Positive: Other (Intubated, sedated on the vent) Abdomen: Positive: Soft Skin: Positive: Clear, Other (multiple wounds) Extremities: Absent: edema - Labs and Meds CBC 03/12/22 Range/Units 04:20 WBC 13.6 H (4.5-11.0) K/mm3 RBC 3.11 L (3.65-5.03) M/mm3 Hgb 8.7 L (10.1-14.3) gm/dl Hct 26.1 L (30.3-42.9) % Plt Count 204 (140-440) K/mm3 Comprehensive Metabolic Panel 03/12/22 Range/Units 04:20 Sodium 128 L (137-145) mmol/L Potassium 3.2 L (3.6-5.0) mmol/L Chloride 93.9 L (98-107) mmol/L Carbon Dioxide 23 (22-30) mmol/L BUN 4 L (7-17) mg/dL Creatinine 0.2 L (0.6-1.2) mg/dL Glucose 103 H (65-100) mg/dL Calcium 7.4 L (8.4-10.2) mg/dL - Allied health notes Allied health notes reviewed: RT
--- NOTE | 2022-03-12 14:04 | Vascular Lab Report ---
DUPLEX DOPPLER LOWER EXTREMITY VEINS, BILATERAL INDICATION: R/o DVT. TECHNIQUE: Duplex doppler imaging was performed through the veins of both lower extremities using ve nous compression and other maneuvers. COMPARISON: No relevant prior imaging study available. FINDINGS: Right Common femoral vein: Negative. Right Superficial femoral vein: Negative. Right Popliteal vein: Negative. Right Calf veins: Negative. Left Common femoral vein: Negative. Left Superficial femoral vein: Negative. Left Popliteal vein: Negative. Left Calf veins: Negative. Additional findings: None. IMPRESSION: No sonographic evidence for DVT in either lower extremity. Signer Name: Haile Figueroa Jr, MD Signed: 03/12/2022 2:00 PM Workstation Name: [id number]
[2022-03-12] MEDS ORDERED: FUROSEMIDE 20 MG/2 ML INJ IV SCH (15:00)
[2022-03-12] MEDS: NORepinephrine/NS 8 MG-250 ML 8 MG/250 ML INFUS..BTL IV SCH (16:40)
--- NOTE | 2022-03-12 16:43 | Consultation ---
History of Present Illness Consult date: 03/12/22 Reason for Consult: AMS Chief complaint: AMS History of present illness: 61 yo female with MS, seizure d/o, skin wounds, who presents with noted acute encephalopathy with acute respiratory failure with bilateral pneumonia. Per RN, patient attempts to follow command(s). No clinical seizure activity noted per RN. At baseline, she is wheelchair bound. No further clinical history can be obtained. Past History Past Medical History: seizures, other (Multiple skin wounds , multiple sclerosis) Past Surgical History: No surgical history Social history: no significant social history (IVDA) Family history: no significant family history (IDT) Medications and Allergies Allergies Allergy/AdvReac Type Severity Reaction Status Date / Time Penicillins Allergy Mild Rash Verified 01/11/19 12:20 Home Medications Medication Instructions Recorded Confirmed Last Taken Type Ciprofloxacin HCl [Ciprofloxacin 500 mg PO Q12H #14 tab 01/11/19 Unknown Rx TAB] levETIRAcetam [Keppra TAB] 500 mg PO BID #60 tablet 01/11/19 Unknown Rx Active Meds: Active Medications Acetaminophen (Acetaminophen 650 Mg Rect Supp) 650 mg HI Q6H PRN PRN Reason: Pain MILD(1-3)/Fever >100.5/ARREAGA Enoxaparin Sodium (Enoxaparin 40 Mg/0.4 Ml Inj) 40 mg SUB-Q QDAY@1000 SHAHBAZ; Protocol Last Admin: 03/12/22 10:04 Dose: 40 mg Famotidine (Famotidine 20 Mg Tab) 20 mg FEEDTUBE BID SHAHBAZ Last Admin: 03/12/22 10:05 Dose: 20 mg Fentanyl (Fentanyl 100 Mcg/2 Ml Inj) 50 mcg IV Q10MIN PRN PRN Reason: ANALGESIA Furosemide (Furosemide 20 Mg/2 Ml Inj) 20 mg IV ONCE@1500 SHAHBAZ Stop: 03/12/22 19:00 Last Admin: 03/12/22 16:00 Dose: 20 mg Hydrophilic Ointment (Lip Therapy Vaseline) 1 applic TP Q2HR PRN PRN Reason: Dry Lips Ceftriaxone Sodium (Rocephin/Ns 2 Gm/100 Ml) 2 gm in 100 mls @ 200 mls/hr IV Q24HR SHAHBAZ; Protocol Last Admin: 03/12/22 10:04 Dose: 200 mls/hr Azithromycin (Zithromax/Ns) 500 mg in 250 mls @ 250 mls/hr IV Q24HR SHAHBAZ; Protocol Last Admin: 03/12/22 10:04 Dose: 250 mls/hr Fentanyl Citrate (Fentanyl Drip Premix) 2,000 mcg in 100 mls @ 4.16 mls/hr IV TITR SHAHBAZ; Protocol Last Admin: 03/12/22 16:40 Dose: 4 mcg/kg/hr, 16.64 mls/hr NORepinephrine/NS 8 MG-250 ML (Norepinephrine/Ns 8 Mg-250 Ml (Double Conc)) 8 mg in 250 mls @ 3.75 mls/hr IV TITRATE SHAHBAZ; Protocol Last Admin: 03/12/22 16:40 Dose: 6 mcg/min, 11.25 mls/hr Levetiracetam (Levetiracetam 500 Mg/5 Ml Oral Liqd) 500 mg FEEDTUBE BID [facility] Last Admin: 03/12/22 10:05 Dose: 500 mg Magnesium Hydroxide (Magnesium Hydroxide (Mom) Oral Liqd Udc) 30 ml PO Q4H PRN PRN Reason: Constipation Multi-Ingred Cream/Lotion/Oil/Oint (Mineral Oil/Petrolatum, White Ophth Oint 3.5 Gm) 1 applic OU Q4HR PRN PRN Reason: Dry Eye(s) Ondansetron HCl (Ondansetron 4 Mg/2 Ml Inj) 4 mg IV Q8H PRN PRN Reason: Nausea And Vomiting Polyethylene Glycol (Polyethylene Glycol 3350 17 Gm Powder) 17 gm FEEDTUBE QDAY [facility] Last Admin: 03/12/22 10:04 Dose: 17 gm Senna/Docusate Sodium (Sennosides/Docusate Sodium 8.6/50 Mg Tab) 1 tab FEEDTUBE BID [facility] Last Admin: 03/12/22 10:05 Dose: 1 tab Sodium Chloride (Sodium Chloride 0.9% 10 Ml Flush Syringe) 10 ml IV BID [facility] Last Admin: 03/12/22 10:05 Dose: 10 ml Sodium Chloride (Sodium Chloride 0.9% 10 Ml Flush Syringe) 10 ml IV PRN PRN PRN Reason: LINE FLUSH Review of Systems ROS unobtainable: due to endotracheal tube Physical Examination - Vital Signs Vital Signs: Vital Signs Temp Pulse Resp BP Pulse Ox 98 F 94 H 29 H 99/58 100 03/10/22 00:54 03/10/22 00:54 03/10/22 00:54 03/10/22 00:54 03/10/22 00:54 - Physical Exam Narrative exam: Gen: nad, intubated; Head: normocephalic; Eyes: no gaze deviation; no ptosis appreciated; ENT: +ETT; CVS: warm and well-perfused; Pulm: no respiratory distress; GI: appears non-distended; Ext: no cyanosis appreciated at distal extremities; Skin: no acute rash appreciated at distal extremities; Heme: no pathologic ecchymosis appreciated at distal extremities; Neuro: stuporous, intubated, CN 2 - slight visual tracking, CN 3, 4, 6 - no gaze deviation, CN 5/7 - opens/closes eyes to command, CN 9/10 - swallowing not appreciated, CN 11/12 - pt cannot cooperate secondary to LOC; Motor/Sensory - at least 1/5 at distal RUE; 2-/5 at distal LUE and 0/5 at BLEs exts to tactile stimuli w/ possible squeeze to command on the left; Cerebellar/Gait - pt cannot cooperate secondary to LOC; Results - Laboratory Findings CBC and BMP: 03/12/22 04:20 03/12/22 04:20 Abnormal Lab Findings: Abnormal Labs 03/10/22 03/10/22 03/10/22 01:19 01:25 01:25 WBC RBC Hgb Hct RDW 15.4 H Lymph % (Auto) 12.4 L Lymph # (Auto) 1.1 L Seg Neutrophils % 85.9 H Seg Neutrophils # D-Dimer ABG pH ABG pO2 59.3 L ABG HCO3 16.7 L ABG O2 Saturation 92.3 L ABG Base Excess -7.8 L ABG Hemoglobin 11.4 L Oxyhemoglobin 90.8 L Sodium 119 L* Potassium 3.1 L Chloride 88.1 L Carbon Dioxide 16 L BUN Creatinine 0.3 L Glucose 146 H POC Glucose Lactic Acid Uric Acid Calcium 8.2 L Phosphorus Magnesium 1.30 L Ferritin ALT 5 L Lactate Dehydrogenase Total Creatine Kinase CK-MB (CK-2) Troponin T NT-Pro-B Natriuret Pep Total Protein 5.4 L Albumin 3.6 L Cholesterol LDL Cholesterol Direct HDL Cholesterol Urine WBC (Auto) 03/10/22 03/10/22 03/10/22 01:25 01:25 01:25 WBC RBC Hgb Hct RDW Lymph % (Auto) Lymph # (Auto) Seg Neutrophils % Seg Neutrophils # D-Dimer ABG pH ABG pO2 ABG HCO3 ABG O2 Saturation ABG Base Excess ABG Hemoglobin Oxyhemoglobin Sodium Potassium Chloride Carbon Dioxide BUN Creatinine Glucose POC Glucose Lactic Acid 3.60 H* Uric Acid Calcium Phosphorus Magnesium Ferritin ALT Lactate Dehydrogenase Total Creatine Kinase CK-MB (CK-2) 4.6 H Troponin T 0.164 H* NT-Pro-B Natriuret Pep 92305 H Total Protein Albumin Cholesterol 259 H LDL Cholesterol Direct 187 H HDL Cholesterol 63 H Urine WBC (Auto) 03/10/22 03/10/22 03/10/22 02:43 05:45 05:45 WBC RBC Hgb Hct RDW Lymph % (Auto) Lymph # (Auto) Seg Neutrophils % Seg Neutrophils # D-Dimer 787.78 H ABG pH ABG pO2 ABG HCO3 ABG O2 Saturation ABG Base Excess ABG Hemoglobin Oxyhemoglobin Sodium Potassium Chloride Carbon Dioxide BUN Creatinine Glucose POC Glucose Lactic Acid 3.70 H* 3.10 H* Uric Acid Calcium Phosphorus Magnesium Ferritin ALT Lactate Dehydrogenase Total Creatine Kinase CK-MB (CK-2) Troponin T NT-Pro-B Natriuret Pep Total Protein Albumin Cholesterol LDL Cholesterol Direct HDL Cholesterol Urine WBC (Auto) 03/10/22 03/10/22 03/10/22 05:45 05:45 12:24 WBC RBC Hgb Hct RDW Lymph % (Auto) Lymph # (Auto) Seg Neutrophils % Seg Neutrophils # D-Dimer ABG pH ABG pO2 ABG HCO3 ABG O2 Saturation ABG Base Excess ABG Hemoglobin Oxyhemoglobin Sodium 124 L Potassium 3.3 L Chloride Carbon Dioxide 11 L BUN Creatinine 0.2 L Glucose POC Glucose Lactic Acid Uric Acid Calcium 6.9 L D Phosphorus Magnesium Ferritin 219.2 H ALT Lactate Dehydrogenase 210 H Total Creatine Kinase CK-MB (CK-2) Troponin T NT-Pro-B Natriuret Pep Total Protein Albumin Cholesterol LDL Cholesterol Direct HDL Cholesterol Urine WBC (Auto) 03/10/22 03/10/22 03/10/22 12:24 12:24 12:24 WBC RBC Hgb Hct RDW Lymph % (Auto) Lymph # (Auto) Seg Neutrophils % Seg Neutrophils # D-Dimer ABG pH ABG pO2 ABG HCO3 ABG O2 Saturation ABG Base Excess ABG Hemoglobin Oxyhemoglobin Sodium 128 L Potassium Chloride Carbon Dioxide BUN Creatinine Glucose POC Glucose Lactic Acid 2.70 H* Uric Acid Calcium Phosphorus Magnesium Ferritin ALT Lactate Dehydrogenase Total Creatine Kinase 901 H CK-MB (CK-2) 15.3 H Troponin T 0.032 H D NT-Pro-B Natriuret Pep Total Protein Albumin Cholesterol LDL Cholesterol Direct HDL Cholesterol Urine WBC (Auto) 03/10/22 03/10/22 03/10/22 12:45 13:15 18:00 WBC RBC Hgb Hct RDW Lymph % (Auto) Lymph # (Auto) Seg Neutrophils % Seg Neutrophils # D-Dimer ABG pH 7.315 L ABG pO2 70.1 L ABG HCO3 15.6 L ABG O2 Saturation 93.8 L ABG Base Excess -9.5 L ABG Hemoglobin 11.0 L Oxyhemoglobin 92.4 L Sodium 129 L Potassium Chloride Carbon Dioxide 17 L BUN Creatinine 0.2 L Glucose POC Glucose Lactic Acid Uric Acid 1.6 L Calcium 7.0 L Phosphorus Magnesium Ferritin ALT Lactate Dehydrogenase Total Creatine Kinase CK-MB (CK-2) Troponin T NT-Pro-B Natriuret Pep Total Protein Albumin Cholesterol LDL Cholesterol Direct HDL Cholesterol Urine WBC (Auto) 03/10/22 03/10/22 03/11/22 18:20 21:05 05:00 WBC 13.7 H RBC 3.44 L Hgb 9.6 L Hct 29.0 L D RDW Lymph % (Auto) 8.9 L Lymph # (Auto) Seg Neutrophils % 86.6 H Seg Neutrophils # 11.8 H D-Dimer ABG pH ABG pO2 116.3 H ABG HCO3 17.2 L ABG O2 Saturation ABG Base Excess -6.4 L ABG Hemoglobin 11.0 L Oxyhemoglobin Sodium Potassium Chloride Carbon Dioxide BUN Creatinine Glucose POC Glucose Lactic Acid Uric Acid Calcium Phosphorus Magnesium Ferritin ALT Lactate Dehydrogenase Total Creatine Kinase CK-MB (CK-2) Troponin T NT-Pro-B Natriuret Pep Total Protein Albumin Cholesterol LDL Cholesterol Direct HDL Cholesterol Urine WBC (Auto) 105.0 H 03/11/22 03/11/22 03/12/22 05:00 Unknown 04:10 WBC RBC Hgb Hct RDW Lymph % (Auto) Lymph # (Auto) Seg Neutrophils % Seg Neutrophils # D-Dimer ABG pH 7.472 H 7.482 H ABG pO2 65.5 L ABG HCO3 19.8 L ABG O2 Saturation ABG Base Excess -2.9 L ABG Hemoglobin 10.1 L 8.4 L Oxyhemoglobin Sodium 132 L Potassium Chloride Carbon Dioxide 20 L BUN 6 L Creatinine 0.2 L Glucose POC Glucose Lactic Acid Uric Acid Calcium 7.5 L Phosphorus Magnesium Ferritin ALT Lactate Dehydrogenase Total Creatine Kinase CK-MB (CK-2) Troponin T NT-Pro-B Natriuret Pep Total Protein Albumin Cholesterol LDL Cholesterol Direct HDL Cholesterol Urine WBC (Auto) 03/12/22 03/12/22 03/12/22 04:20 04:20 12:25 WBC 13.6 H RBC 3.11 L Hgb 8.7 L Hct 26.1 L RDW Lymph % (Auto) Lymph # (Auto) Seg Neutrophils % Seg Neutrophils # D-Dimer ABG pH ABG pO2 ABG HCO3 ABG O2 Saturation ABG Base Excess ABG Hemoglobin Oxyhemoglobin Sodium 128 L Potassium 3.2 L Chloride 93.9 L Carbon Dioxide BUN 4 L Creatinine 0.2 L Glucose 103 H POC Glucose 116 H Lactic Acid Uric Acid Calcium 7.4 L Phosphorus 1.10 L Magnesium 2.40 H Ferritin ALT Lactate Dehydrogenase Total Creatine Kinase CK-MB (CK-2) Troponin T NT-Pro-B Natriuret Pep Total Protein Albumin Cholesterol LDL Cholesterol Direct HDL Cholesterol Urine WBC (Auto) Assessment and Plan 61 yo female with MS, seizure d/o, skin wounds, who presents with noted acute encephalopathy with acute respiratory failure with bilateral pneumonia. 1. Acute Metabolic Encephalopathy - in the setting of underlying infection and metabolic derangements. 2. Seizure d/o - continue home regimen of keppra; awaiting eeg results. 3. Multiple Sclerosis (recrudescence) - in the setting of underlying infection vs. MS flare; awaiting MR Brain w/ wo contrast when clinically stable, if no contraindications(s). 4. Acute Ischemic Stroke - ecotrin 81 mg po qday if no contraindication; further workup based on MR findings. 5. Generalized Weakness - wheelchair bound at baseline (?deconditioning vs. baseline); confirm with MRI C-spine w/ wo contrast when clinically stable (if no contraindication(s)); confirm b12, tsh, prealbumin, copper levels. 6. If MRI Brain / C-Spine w/ wo contrast and/or EEG are unremarkable, no further workup indicated at present. Mikey Bailey MD Neurology [id number]
--- NOTE | 2022-03-12 19:03 | Consultation ---
History of Present Illness - Reason for Consult Consult date: 03/12/22 - History of Present Illness 61-year-old female past medical history of multiple sclerosis, seizure presented to the hospital for shortness of breath. She is found to be hypoxic on admission. She is not vaccinated against COVID. She was found to be severely hyponatremic on admission. She is now intubated. Febrile to 100.5 count of 13.6. Normal renal function. Currently on ceftriaxone and azithromycin. Elevated procalcitonin. COVID-negative. Blood and sputum cultures negative. Imaging personally reviewed: Chest x-ray: Bilateral patchy airspace opacities. Past History Past Medical History: seizures, other (Multiple skin wounds , multiple sclerosis) Past Surgical History: No surgical history Social history: no significant social history (IVDA) Family history: no significant family history (IDT) Medications and Allergies Allergies Allergy/AdvReac Type Severity Reaction Status Date / Time Penicillins Allergy Mild Rash Verified 01/11/19 12:20 Home Medications Medication Instructions Recorded Confirmed Last Taken Type Ciprofloxacin HCl [Ciprofloxacin 500 mg PO Q12H #14 tab 01/11/19 Unknown Rx TAB] levETIRAcetam [Keppra TAB] 500 mg PO BID #60 tablet 01/11/19 Unknown Rx Active Meds: Active Medications Acetaminophen (Acetaminophen 650 Mg Rect Supp) 650 mg FL Q6H PRN PRN Reason: Pain MILD(1-3)/Fever >100.5/ARREAGA Enoxaparin Sodium (Enoxaparin 40 Mg/0.4 Ml Inj) 40 mg SUB-Q QDAY@1000 SHAHBAZ; Protocol Last Admin: 03/12/22 10:04 Dose: 40 mg Famotidine (Famotidine 20 Mg Tab) 20 mg FEEDTUBE BID [facility] Last Admin: 03/12/22 10:05 Dose: 20 mg Fentanyl (Fentanyl 100 Mcg/2 Ml Inj) 50 mcg IV Q10MIN PRN PRN Reason: ANALGESIA Furosemide (Furosemide 20 Mg/2 Ml Inj) 20 mg IV ONCE@1500 SHAH[facility]Z Stop: 03/12/22 19:00 Last Admin: 03/12/22 16:00 Dose: 20 mg Hydrophilic Ointment (Lip Therapy Vaseline) 1 applic TP Q2HR PRN PRN Reason: Dry Lips Ceftriaxone Sodium (Rocephin/Ns 2 Gm/100 Ml) 2 gm in 100 mls @ 200 mls/hr IV Q24HR [facility]; Protocol Last Admin: 03/12/22 10:04 Dose: 200 mls/hr Azithromycin (Zithromax/Ns) 500 mg in 250 mls @ 250 mls/hr IV Q24HR [facility]; Pr otocol Last Admin: 03/12/22 10:04 Dose: 250 mls/hr Fentanyl Citrate (Fentanyl Drip Premix) 2,000 mcg in 100 mls @ 4.16 mls/hr IV TITR SHAH[facility]Z; Protocol Last Admin: 03/12/22 16:40 Dose: 4 mcg/kg/hr, 16.64 mls/hr NORepinephrine/NS 8 MG-250 ML (Norepinephrine/Ns 8 Mg-250 Ml (Double Conc)) 8 mg in 250 mls @ 3.75 mls/hr IV TITRATE [facility]Z; Protocol Last Admin: 03/12/22 16:40 Dose: 6 mcg/min, 11.25 mls/hr Levetiracetam (Levetiracetam 500 Mg/5 Ml Oral Liqd) 500 mg FEEDTUBE BID [facility] Last Admin: 03/12/22 10:05 Dose: 500 mg Magnesium Hydroxide (Magnesium Hydroxide (Mom) Oral Liqd Udc) 30 ml PO Q4H PRN PRN Reason: Constipation Multi-Ingred Cream/Lotion/Oil/Oint (Mineral Oil/Petrolatum, White Ophth Oint 3.5 Gm) 1 applic OU Q4HR PRN PRN Reason: Dry Eye(s) Ondansetron HCl (Ondansetron 4 Mg/2 Ml Inj) 4 mg IV Q8H PRN PRN Reason: Nausea And Vomiting Polyethylene Glycol (Polyethylene Glycol 3350 17 Gm Powder) 17 gm FEEDTUBE QDAY [facility] Last Admin: 03/12/22 10:04 Dose: 17 gm Senna/Docusate Sodium (Sennosides/Docusate Sodium 8.6/50 Mg Tab) 1 tab FEEDTUBE BID [facility] Last Admin: 03/12/22 10:05 Dose: 1 tab Sodium Chloride (Sodium Chloride 0.9% 10 Ml Flush Syringe) 10 ml IV BID [facility] Last Admin: 03/12/22 10:05 Dose: 10 ml Sodium Chloride (Sodium Chloride 0.9% 10 Ml Flush Syringe) 10 ml IV PRN PRN PRN Reason: LINE FLUSH Review of Systems ROS unobtainable: due to endotracheal tube Physical Examination - Physical Exam Narrative exam: Physical Exam: Constitutional: intubated, sedated Head, Ears, Nose: Normocephalic, atraumatic. External ears, nose normal Eyes: Conjunctivae/corneas clear. No icterus. No ptosis. Neck: Supple, no meningeal signs Oral: ETT Cardiovascular: S1, S2 normal. Respiratory: Good air entry, clear to auscultation bilaterally GI: Soft, non-tender; bowel sounds normal. No peritoneal signs. Musculoskeletal: No pedal edema, no cyanosis. Skin: No rash or abscess Hem/Lymphatic: No palpable cervical or supraclavicular nodes. No lymphangitis Psych: Unable to assess Neurological: Unable to asses. - Constitutional Vitals: Vital Signs Temp Pulse Resp BP Pulse Ox 99 F 110 H 12 102/70 95 03/12/22 12:00 03/12/22 17:30 03/12/22 17:30 03/12/22 17:30 03/12/22 17:30 Temperature -Last 24 Hours Temperature 99 F Temperature 100.5 F Results - Labs CBC & Chem 7: 03/12/22 04:20 03/12/22 04:20 Labs: Abnormal lab results 03/12/22 03/12/22 03/12/22 Range/Units 04:10 04:20 04:20 WBC 13.6 H (4.5-11.0) K/mm3 RBC 3.11 L (3.65-5.03) M/mm3 Hgb 8.7 L (10.1-14.3) gm/dl Hct 26.1 L (30.3-42.9) % ABG pH 7.482 H (7.350-7.450) pH Units ABG pO2 65.5 L (80.0-90.0) mm Hg ABG Hemoglobin 8.4 L (12.0-16.0) gm/dl Sodium 128 L (137-145) mmol/L Potassium 3.2 L (3.6-5.0) mmol/L Chloride 93.9 L (98-107) mmol/L BUN 4 L (7-17) mg/dL Creatinine 0.2 L (0.6-1.2) mg/dL Glucose 103 H (65-100) mg/dL POC Glucose (70-105) mg/dL Calcium 7.4 L (8.4-10.2) mg/dL Phosphorus 1.10 L (2.5-4.5) mg/dL Magnesium 2.40 H (1.7-2.3) mg/dL 03/12/22 Range/Units 12:25 WBC (4.5-11.0) K/mm3 RBC (3.65-5.03) M/mm3 Hgb (10.1-14.3) gm/dl Hct (30.3-42.9) % ABG pH (7.350-7.450) pH Units ABG pO2 (80.0-90.0) mm Hg ABG Hemoglobin (12.0-16.0) gm/dl Sodium (137-145) mmol/L Potassium (3.6-5.0) mmol/L Chloride (98-107) mmol/L BUN (7-17) mg/dL Creatinine (0.6-1.2) mg/dL Glucose (65-100) mg/dL POC Glucose 116 H (70-105) mg/dL Calcium (8.4-10.2) mg/dL Phosphorus (2.5-4.5) mg/dL Magnesium (1.7-2.3) mg/dL Assessment and Plan Cultures: Blood culture no growth so far Sputum culture no growth so far A/P: 61-year-old female past medical history of multiple sclerosis, seizures now with: #Acute sepsis: With fevers, leukocytosis. Secondary to bilateral pneumonia #Acute hypoxic respiratory failure on vent #Bilateral pneumonia #Multiple sclerosis Recs: -Stop ceftriaxone, azithromycin -Started cefepime 2 g every 8 hours given ongoing fevers despite antibiotics -Follow fever curve and white count Thank you for the consult, we will continue to follow. Lizy Ashraf MD [facility] ([facility] O: [phone] F: [phone]
[2022-03-12] MEDS: CEFEPIME/NS 2 GM/100 ML 2 GM/100 ML BAG IV SCH (21:02)
--- NOTE | 2022-03-13 02:18 | XRay Report ---
CHEST 1 VIEW 03/13/2022 12:55 AM INDICATION / CLINICAL INFORMATION: follow up respiratory failure. COMPARISON: 03/12/2022 FINDINGS: SUPPORT DEVICES: Unchanged. HEART / MEDIASTINUM: Stable. LUNGS / PLEURA: Redemonstrated not significant changed patchy airspace opacities. No pneumothorax. ADDITIONAL FINDINGS: No significant additional findings. IMPRESSION: 1. No significant change. Signer Name: Charlie Venegas DO Signed: 03/13/2022 2:13 AM Workstation Name: [id number]
[2022-03-13] MEDS: CEFEPIME/NS 2 GM/100 ML 2 GM/100 ML BAG IV SCH ×3 (04:50→20:09)
[2022-03-13 05:24] LABS: Blood Urea Nitrogen 10 mg/dL (7-17); Calcium 7.3 mg/dL (8.4-10.2); Hemolysis Index 4
[2022-03-13 05:34] LABS: BUN/Creatinine Ratio 25
[2022-03-13] MEDS: fentaNYL DRIP Premix 2,000 MCG/100 ML BAG IV SCH ×2 (06:06→18:12)
[2022-03-13] MEDS: ACETAMINOPHEN 325 MG/10.15 ML ORAL LIQD UNIT DOSE FEEDTUBE PRN (06:10)
[2022-03-13 08:21] LABS: Hematocrit 23.9 % (30.3-42.9); Mean Corpuscular HGB Conc 33 % (30-34); Mean Corpuscular Volume 85 fl (79-97); Platelet Count 194 K/mm3 (140-440); Red Blood Count 2.82 M/mm3 (3.65-5.03); Red Cell Distribution Width 15.5 % (13.2-15.2)
[2022-03-13 10:01] LABS: ABG HCO3 22.9 mmol/L (20.0-26.0); ABG Methemoglobin 0.4 % (0.0-1.5); ABG Oxygen Saturation 97.5 % (95.0-99.0); ABG PCO2 39.1 mm Hg; ABG PH 7.386 pH Units (7.350-7.450); ABG PO2 98.6 mm Hg (80.0-90.0)
[2022-03-13] MEDS: levETIRAcetam 500 MG/5 ML ORAL LIQD FEEDTUBE SCH ×2 (10:54→21:14)
[2022-03-13] MEDS: POLYETHYLENE GLYCOL 3350 17 GM POWDER FEEDTUBE SCH (10:54)
[2022-03-13] MEDS: SENNOSIDES/DOCUSATE SODIUM 8.6/50 MG TAB FEEDTUBE SCH ×2 (10:54→21:14)
[2022-03-13] MEDS: FAMOTIDINE 20 MG TAB FEEDTUBE SCH ×2 (10:54→21:14)
[2022-03-13] MEDS: ENOXAPARIN 40 MG/0.4 ML INJ SUB-Q SCH (10:54)
--- NOTE | 2022-03-13 11:12 | Progress Note ---
Assessment and Plan Electrolyte Imbalance - F/u resolving HypoNa. Resolved Acidosis, f/u labs Hypotension - Optimize pressors as tolerated Pneumonia/Resp Failure - Vent Mx per Pulm Multiple Sclerosis - F/u Mx per Neuro Subjective Date of service: 03/13/22 Principal diagnosis: AHRF; Multifocal Pneumonia; Septic shock; NSTEMI; AMS; Seizures Interval history: On Vent, sedated, no change Objective - Vital Signs Vital signs: Vital Signs - 12hr 03/12/22 03/12/22 03/12/22 23:15 23:30 23:45 Temperature Pulse Rate 99 H 98 H 99 H Pulse Rate [ From Monitor] Respiratory 11 L 11 L 12 Rate Blood Pressure 100/66 101/68 99/70 O2 Sat by Pulse 95 95 93 Oximetry 03/13/22 03/13/22 03/13/22 00:00 00:15 00:30 Temperature 99.6 F Pulse Rate 99 H 95 H 97 H Pulse Rate [ 99 H From Monitor] Respiratory 18 12 12 Rate Blood Pressure 97/68 92/64 99/68 O2 Sat by Pulse 90 97 96 Oximetry 03/13/22 03/13/22 03/13/22 00:45 01:00 01:15 Temperature Pulse Rate 95 H 98 H 103 H Pulse Rate [ From Monitor] Respiratory 12 12 17 Rate Blood Pressure 94/68 100/71 109/78 O2 Sat by Pulse 93 96 89 Oximetry 03/13/22 03/13/22 03/13/22 01:30 01:45 02:00 Temperature Pulse Rate 102 H 109 H 116 H Pulse Rate [ From Monitor] Respiratory 11 L 21 15 Rate Blood Pressure 94/70 109/80 112/75 O2 Sat by Pulse 91 92 89 Oximetry 03/13/22 03/13/22 03/13/22 02:15 02:30 02:45 Temperature Pulse Rate 110 H 101 H 102 H Pulse Rate [ From Monitor] Respiratory 15 12 12 Rate Blood Pressure 102/72 104/72 103/73 O2 Sat by Pulse 91 93 93 Oximetry 03/13/22 03/13/22 03/13/22 03:00 03:15 03:30 Temperature Pulse Rate 103 H 105 H 102 H Pulse Rate [ From Monitor] Respiratory 14 12 12 Rate Blood Pressure 109/79 111/77 109/79 O2 Sat by Pulse 94 92 95 Oximetry 03/13/22 03/13/22 03/13/22 03:45 04:00 04:15 Temperature 101.3 F H Pulse Rate 103 H 102 H 99 H Pulse Rate [ 101 H From Monitor] Respiratory 16 12 16 Rate Blood Pressure 120/87 105/73 102/73 O2 Sat by Pulse 94 96 95 Oximetry 03/13/22 03/13/22 03/13/22 04:30 04:46 05:00 Temperature Pulse Rate 108 H 103 H 108 H Pulse Rate [ From Monitor] Respiratory 18 15 16 Rate Blood Pressure 126/83 137/80 117/73 O2 Sat by Pulse 96 95 94 Oximetry 03/13/22 03/13/22 03/13/22 05:15 05:30 05:45 Temperature Pulse Rate 106 H 101 H 104 H Pulse Rate [ From Monitor] Respiratory 21 16 16 Rate Blood Pressure 126/87 126/87 105/72 O2 Sat by Pulse 91 93 94 Oximetry 03/13/22 03/13/22 03/13/22 06:00 06:16 06:30 Temperature Pulse Rate 98 H 101 H 98 H Pulse Rate [ From Monitor] Respiratory 16 21 16 Rate Blood Pressure 96/58 116/82 107/76 O2 Sat by Pulse 93 96 94 Oximetry 03/13/22 03/13/22 03/13/22 06:46 07:00 07:15 Temperature Pulse Rate 100 H 100 H 97 H Pulse Rate [ From Monitor] Respiratory 20 14 17 Rate Blood Pressure 114/76 112/74 109/70 O2 Sat by Pulse 98 98 99 Oximetry 03/13/22 03/13/22 03/13/22 07:17 07:29 07:30 Temperature 98.3 F Pulse Rate 95 H 94 H Pulse Rate [ From Monitor] Respiratory 16 Rate Blood Pressure 96/66 96/66 O2 Sat by Pulse 100 100 Oximetry 03/13/22 03/13/22 03/13/22 07:46 08:00 08:15 Temperature Pulse Rate 95 H 94 H 94 H Pulse Rate [ From Monitor] Respiratory 17 15 15 Rate Blood Pressure 108/64 109/74 102/70 O2 Sat by Pulse 98 98 98 Oximetry 03/13/22 03/13/22 03/13/22 08:30 08:45 09:00 Temperature Pulse Rate 92 H 91 H 93 H Pulse Rate [ From Monitor] Respiratory 21 13 18 Rate Blood Pressure 104/71 100/71 108/73 O2 Sat by Pulse 98 99 97 Oximetry 03/13/22 03/13/22 03/13/22 09:15 09:30 09:45 Temperature Pulse Rate 94 H 92 H 93 H Pulse Rate [ From Monitor] Respiratory 15 15 14 Rate Blood Pressure 112/72 99/72 109/71 O2 Sat by Pulse 97 95 97 Oximetry 03/13/22 03/13/22 03/13/22 10:00 10:15 10:30 Temperature Pulse Rate 94 H 93 H 92 H Pulse Rate [ From Monitor] Respiratory 15 22 14 Rate Blood Pressure 98/71 104/67 100/64 O2 Sat by Pulse 98 94 97 Oximetry 03/13/22 10:45 Temperature Pulse Rate 92 H Pulse Rate [ From Monitor] Respiratory 15 Rate Blood Pressure 99/69 O2 Sat by Pulse 94 Oximetry - General Appearance General appearance: sedated on ventilator Neck: no JVD Respiratory: Present: Other (Air entry per Vent) Cardiology: regular, S1S2 Gastrointestinal: other (Soft) Integumentary: warm and dry Neurologic: other (Sedated) - Lab 03/13/22 08:00 03/13/22 04:10 Most recent lab results ABG pH 7.386 pH Units (7.350-7.450) 03/13/22 09:50 ABG pCO2 39.1 mm Hg 03/13/22 09:50 ABG pO2 98.6 mm Hg (80.0-90.0) H 03/13/22 09:50 ABG HCO3 22.9 mmol/L (20.0-26.0) 03/13/22 09:50 ABG O2 Saturation 97.5 % (95.0-99.0) 03/13/22 09:50 Calcium 7.3 mg/dL (8.4-10.2) L 03/13/22 04:10 Phosphorus 3.10 mg/dL (2.5-4.5) D 03/13/22 04:10 Magnesium 2.30 mg/dL (1.7-2.3) 03/13/22 04:10 Urine Sodium 64 mmol/L 03/10/22 18:20 Medications & Allergies - Medications Allergies/Adverse Reactions: Allergies Penicillins Allergy (Mild, Verified 01/11/19 12:20) Rash . Home Medications: Home Medications Medication Instructions Recorded Confirmed Last Taken Type Ciprofloxacin HCl [Ciprofloxacin 500 mg PO Q12H #14 tab 01/11/19 Unknown Rx TAB] levETIRAcetam [Keppra TAB] 500 mg PO BID #60 tablet 01/11/19 Unknown Rx Active Medications: Generic Name Dose Route Start Last Admin Trade Name Freq PRN Reason Stop Dose Admin Acetaminophen 650 mg 03/13/22 05:50 03/13/22 06:10 Acetaminophen 325 Mg/10.15 Ml Oral Liqd Unit Dose FEEDTUBE 650 mg Q6H PRN Administration Non Cardiac Pain or Temp>100.5 Enoxaparin Sodium 40 mg 03/12/22 10:00 03/13/22 10:54 Enoxaparin 40 Mg/0.4 Ml Inj SUB-Q 40 mg QDAY@1000 SHAHBAZ Administration Protocol Famotidine 20 mg 03/12/22 10:00 03/13/22 10:54 Famotidine 20 Mg Tab FEEDTUBE 20 mg BID [facility] Administration Fentanyl 50 mcg 03/10/22 10:58 Fentanyl 100 Mcg/2 Ml Inj IV Q10MIN PRN ANALGESIA Hydrophilic Ointment 1 applic 03/10/22 11:03 Lip Therapy Vaseline TP Q2HR PRN Dry Lips Fentanyl Citrate 2,000 mcg in 100 mls @ 4.16 mls/hr 03/10/22 11:00 03/13/22 06:06 Fentanyl Drip Premix IV 2 mcg/kg/hr TITR SHAHBAZ 8.32 mls/hr Titration Protocol 1 MCG/KG/HR NORepinephrine/NS 8 MG-250 ML 8 mg in 250 mls @ 3.75 mls/hr 03/10/22 11:00 03/13/22 06:00 Norepinephrine/Ns 8 Mg-250 Ml (Double Conc) IV 4 mcg/min TITRATE SHAHBAZ 7.5 mls/hr Titration Protocol 2 MCG/MIN Cefepime HCl 2 gm in 100 mls @ 200 mls/hr 03/12/22 20:00 03/13/22 04:50 Cefepime/Ns 2 Gm/100 Ml IV 200 mls/hr Q8H [facility] Administration Protocol Levetiracetam 500 mg 03/12/22 10:00 03/13/22 10:54 Levetiracetam 500 Mg/5 Ml Oral Liqd FEEDTUBE 500 mg BID [facility] Administration Magnesium Hydroxide 30 ml 03/10/22 02:56 Magnesium Hydroxide (Mom) Oral Liqd Udc PO Q4H PRN Constipation Multi-Ingred Cream/Lotion/Oil/Oint 1 applic 03/10/22 11:03 Mineral Oil/Petrolatum, White Ophth Oint 3.5 Gm OU Q4HR PRN Dry Eye(s) Ondansetron HCl 4 mg 03/10/22 02:56 Ondansetron 4 Mg/2 Ml Inj IV Q8H PRN Nausea And Vomiting Polyethylene Glycol 17 gm 03/12/22 10:00 03/13/22 10:54 Polyethylene Glycol 3350 17 Gm Powder FEEDTUBE 17 gm QDAY [facility] Administration Senna/Docusate Sodium 1 tab 03/10/22 22:00 03/13/22 10:54 Sennosides/Docusate Sodium 8.6/50 Mg Tab FEEDTUBE 1 tab BID [facility] Administration Sodium Chloride 10 ml 03/10/22 10:00 03/13/22 10:54 Sodium Chloride 0.9% 10 Ml Flush Syringe IV 10 ml BID [facility] Administration Sodium Chloride 10 ml 03/10/22 02:56 Sodium Chloride 0.9% 10 Ml Flush Syringe IV PRN PRN LINE FLUSH
--- NOTE | 2022-03-13 11:56 | Progress Note ---
Assessment and Plan - Patient Problems (1) Respiratory failure Current Visit: Yes Status: Acute Plan to address problem: Patient has a history of multiple sclerosis, no reported cardiac history, presented to the hospital with respiratory insufficiency and currently on the vent in the ICU. Chest x-ray showed confluent consolidations in both lung fraire consistent with a severe bilateral pneumonia. A COVID-19 test was positive. Cardiac consultation was requested for the finding of a nonspecific, isolated rise in troponin levels. EKG show sinus rhythm with no acute ischemic changes. Echocardiogram done on this presentation shows left ventricular systolic ejection fraction at the lower limits of normal 50%. No acute cardiovascular issues at this time, will continue supportive management of cardiac status, defer treatment of respiratory failure and bilateral pneumonia to internal medicine and pulmonary. Subjective Date of service: 03/13/22 Principal diagnosis: AHRF; Multifocal Pneumonia; Septic shock; NSTEMI; AMS; Seizures Interval history: Patient is sedated, on the vent. Patient has a history of multiple sclerosis, no reported cardiac history, presented to the hospital with respiratory insufficiency and currently on the vent in the ICU. Chest x-ray showed confluent consolidations in both lung fraire consistent with a severe bilateral pneumonia. A COVID-19 test was positive. Cardiac consultation was requested for the finding of a nonspecific, isolated rise in troponin levels. EKG show sinus rhythm with no acute ischemic changes. Echocardiogram done on this presentation shows left ventricular systolic ejection fraction at the lower limits of normal 50%. Objective Vital Signs Temp Pulse Pulse Resp BP Pulse Ox 03/13/22 11:45 94 H 14 109/72 97 03/13/22 11:30 94 H 14 99/65 96 03/13/22 11:15 94 H 20 104/70 92 03/13/22 11:00 92 H 14 96/64 97 03/13/22 10:45 92 H 15 99/69 94 03/13/22 10:30 92 H 14 100/64 97 03/13/22 10:15 93 H 22 104/67 94 03/13/22 10:00 94 H 15 98/71 98 03/13/22 09:45 93 H 14 109/71 97 03/13/22 09:30 92 H 15 99/72 95 03/13/22 09:15 94 H 15 112/72 97 03/13/22 09:00 93 H 18 108/73 97 03/13/22 08:45 91 H 13 100/71 99 03/13/22 08:30 92 H 21 104/71 98 03/13/22 08:15 94 H 15 102/70 98 03/13/22 08:00 94 H 15 109/74 98 03/13/22 07:46 95 H 17 108/64 98 03/13/22 07:30 94 H 16 96/66 100 03/13/22 07:29 95 H 96/66 100 03/13/22 07:17 98.3 F 03/13/22 07:15 97 H 17 109/70 99 03/13/22 07:00 100 H 14 112/74 98 03/13/22 06:46 100 H 20 114/76 98 03/13/22 06:30 98 H 16 107/76 94 03/13/22 06:16 101 H 21 116/82 96 03/13/22 06:00 98 H 16 96/58 93 03/13/22 05:45 104 H 16 105/72 94 03/13/22 05:30 101 H 16 126/87 93 03/13/22 05:15 106 H 21 126/87 91 03/13/22 05:00 108 H 16 117/73 94 03/13/22 04:46 103 H 15 137/80 95 03/13/22 04:30 108 H 18 126/83 96 03/13/22 04:15 99 H 16 102/73 95 03/13/22 04:00 101.3 F H 102 H 101 H 12 105/73 96 03/13/22 03:45 103 H 16 120/87 94 03/13/22 03:30 102 H 12 109/79 95 03/13/22 03:15 105 H 12 111/77 92 03/13/22 03:00 103 H 14 109/79 94 03/13/22 02:45 102 H 12 103/73 93 03/13/22 02:30 101 H 12 104/72 93 03/13/22 02:15 110 H 15 102/72 91 03/13/22 02:00 116 H 15 112/75 89 03/13/22 01:45 109 H 21 109/80 92 03/13/22 01:30 102 H 11 L 94/70 91 03/13/22 01:15 103 H 17 109/78 89 03/13/22 01:00 98 H 12 100/71 96 06/28/22 00:45 95 H 12 94/68 93 03/13/22 00:30 97 H 12 99/68 96 03/13/22 00:15 95 H 12 92/64 97 03/13/22 00:00 99.6 F 99 H 99 H 18 97/68 90 03/12/22 23:45 99 H 12 99/70 93 03/12/22 23:30 98 H 11 L 101/68 95 03/12/22 23:15 99 H 11 L 100/66 95 03/12/22 23:00 95 H 12 96/70 96 03/12/22 22:45 97 H 12 97/68 97 03/12/22 22:30 97 H 12 100/70 95 03/12/22 22:15 98 H 11 L 92/63 97 03/12/22 22:00 93 H 12 95/65 94 03/12/22 21:45 92 H 11 L 84/58 91 03/12/22 21:34 96 H 13 89/63 100 03/12/22 21:30 94 H 12 89/63 75 L 03/12/22 21:15 99 H 13 94/62 93 03/12/22 21:00 98 H 12 99/65 95 03/12/22 20:45 98 H 12 93/62 95 03/12/22 20:30 94 H 12 86/57 94 03/12/22 20:15 94 H 12 88/59 94 03/12/22 20:00 99.8 F H 106 H 92 H 12 101/63 92 03/12/22 19:45 97 H 11 L 92/60 90 03/12/22 19:30 99 H 12 106/67 95 03/12/22 19:15 95 H 12 97/60 95 03/12/22 19:00 96 H 11 L 89/60 94 03/12/22 18:45 101 H 11 L 97/63 92 03/12/22 18:30 96 H 12 106/55 94 03/12/22 18:15 103 H 11 L 100/61 91 03/12/22 18:00 110 H 17 98/64 96 03/12/22 17:45 111 H 12 98/64 90 03/12/22 17:30 110 H 12 102/70 95 03/12/22 17:15 107 H 12 98/71 93 03/12/22 17:00 107 H 12 101/70 94 03/12/22 16:45 98 H 12 104/68 91 03/12/22 16:30 103 H 11 L 89/65 94 03/12/22 16:25 92 H 89/65 92 03/12/22 16:15 106 H 11 L 110/72 94 03/12/22 16:00 96 H 96 H 12 103/70 93 03/12/22 15:45 107 H 11 L 103/68 89 03/12/22 15:30 95 H 12 95/68 93 03/12/22 15:15 94 H 12 98/65 93 03/12/22 15:00 96 H 12 96/64 91 03/12/22 14:45 100 H 12 110/73 88 03/12/22 14:30 99 H 11 L 98/70 92 03/12/22 14:15 94 H 12 103/68 96 03/12/22 14:00 93 H 12 99/65 95 03/12/22 13:45 95 H 16 95/68 98 03/12/22 13:30 92 H 16 90/66 99 03/12/22 13:15 91 H 16 91/63 97 03/12/22 13:00 92 H 16 89/66 96 03/12/22 12:45 93 H 16 86/59 96 03/12/22 12:30 92 H 16 87/57 96 03/12/22 12:15 100 H 25 H 87/49 93 03/12/22 12:00 99 F 105 H 105 H 16 85/61 95 - Physical Examination General: Other (intubated on mechanical ventilator) HEENT: Positive: PERRL Neck: Positive: neck supple, trachea midline. Negative: JVD/HJR Cardiac: Positive: Reg Rate and Rhythm Lungs: Positive: Decreased Breath Sounds Neuro: Positive: Other (Intubated, sedated on the vent) Abdomen: Positive: Soft Skin: Positive: Clear, Other (multiple wounds) Extremities: Absent: edema - Labs and Meds CBC 03/13/22 Range/Units 08:00 WBC 15.0 H (4.5-11.0) K/mm3 RBC 2.82 L (3.65-5.03) M/mm3 Hgb 8.0 L (10.1-14.3) gm/dl Hct 23.9 L (30.3-42.9) % Plt Count 194 (140-440) K/mm3 Comprehensive Metabolic Panel 03/13/22 Range/Units 04:10 Sodium 130 L (137-145) mmol/L Potassium 3.9 D (3.6-5.0) mmol/L Chloride 96.1 L (98-107) mmol/L Carbon Dioxide 24 (22-30) mmol/L BUN 10 (7-17) mg/dL Creatinine 0.4 L D (0.6-1.2) mg/dL Glucose 148 H (65-100) mg/dL Calcium 7.3 L (8.4-10.2) mg/dL - Allied health notes Allied health notes reviewed: RT
--- NOTE | 2022-03-13 12:45 | Progress Note ---
Assessment and Plan This is a 61-year-old female with known past medical history of Multiple Sclerosis and seizure disorder admitted for sepsis, Hyponatremia, and acute hypoxic respiratory failure requiring ventilatory support Acute Hypoxemic Respiratory Failure, on MVS Multifocal Pneumonia/CAP- possible aspiration Severe Hyponatremia- resolved Hypotension/Sepsis/Lactic Acidosis-Septic shock NSTEMI/Elevated Troponin- probable type 2 ischemia Elevated BNP Hypokalemia R/o COVID Acute Metabolic Encephalopathy H/o Seizure Disorder Elevated D-Dimer Moderate Protein Calorie Malnutrition Increase PEEP to 10 at the bedside, while monitoring airway pressures ARDS net protocol continue to titrate supplemental oxygen to keep SpO2 90-92% Daily assessment for readiness to wean, SAT and SBT VAP bundle addressed, aspiration precautions HOB >40 continue lung protective strategies continue bronchodilators with pulmonary hygiene per RT Follow up MRI and EEG results -Continue to titrate vasopressor support to keep MAP>65 -Continue Antibiotics per ID -Continue to trend temperature curve and WCC -CXR, ABG in am - continue accuchecks with glycemic control per SSI (While critically ill target blood glucose of 140-180 mg/dL; avoid hypoglycemia) - sedation prn for target RASS 0 to -1, on Fentanyl infusion - avoid nephrotoxins, renally dose all medications - continue to avoid benzodiazepines, reduce the possibility of delirium - prn analgesia per CPOT score - Maintenance of sleep-wake cycle, avoid delirium - Continue with enteric nutritional support - VTE prophylaxis- anticoagulation with therapeutic Enoxaparin. -Stress ulcer prophylaxis- Famotidine -Chronic home medications as clinically indicated -Get surface echocardiography to evaluate LVEF and RVSP. - mobility, off loading and frequent turning per facility protocol to prevent pressure ulcers -Wound consult - Monitor hemodynamics closely - continue other care per attending / other consultants Patient is a FULL code. The high probability of a clinically significant, sudden or life threatening deterioration of the [respiratory, cardiovascular, neurology,renal ] system(s) required my full and direct attention, intervention and personal management. The aggregate critical care time was [35 ] minutes. This time is in addition to time spent performing reported procedures but includes the following: [x] Data Review and interpretation [x] Patient assessment and monitoring of vital signs [x] Documentation [x] Medication orders and management Subjective Date of service: 03/13/22 Principal diagnosis: AHRF; Multifocal Pneumonia; Septic shock; NSTEMI; AMS; Seizures Interval history: follow up fro: Acute hypoxemic resp failure on MVS; Acute encephalopathy; Septic shock; Bilateral pneumonia-aspiration/CAP Severe hyponatremia Seen and examined. Vitals, labs, medications, chart reviewed. Discussed with nursing and respiratory care staff. No fevers, remains on low dose norepinephrine, on fentanyl infusion and orally intubated. Vent: ACVC-20/400/+8/35% Episodes of desaturations, CXR bilateral alveolar infiltrates, appear worse MRI brain/C-spine completed, EEG completed. Hyponatremia improving patient remains on Levophed. Objective Vital Signs - 12hr 03/13/22 03/13/22 03/13/22 01:00 01:15 01:30 Temperature Pulse Rate 98 H 103 H 102 H Pulse Rate [ From Monitor] Respiratory 12 17 11 L Rate Blood Pressure 100/71 109/78 94/70 O2 Sat by Pulse 96 89 91 Oximetry 03/13/22 03/13/22 03/13/22 01:45 02:00 02:15 Temperature Pulse Rate 109 H 116 H 110 H Pulse Rate [ From Monitor] Respiratory 21 15 15 Rate Blood Pressure 109/80 112/75 102/72 O2 Sat by Pulse 92 89 91 Oximetry 03/13/22 03/13/22 03/13/22 02:30 02:45 03:00 Temperature Pulse Rate 101 H 102 H 103 H Pulse Rate [ From Monitor] Respiratory 12 12 14 Rate Blood Pressure 104/72 103/73 109/79 O2 Sat by Pulse 93 93 94 Oximetry 03/13/22 03/13/22 03/13/22 03:15 03:30 03:45 Temperature Pulse Rate 105 H 102 H 103 H Pulse Rate [ From Monitor] Respiratory 12 12 16 Rate Blood Pressure 111/77 109/79 120/87 O2 Sat by Pulse 92 95 94 Oximetry 03/13/22 03/13/22 03/13/22 04:00 04:15 04:30 Temperature 101.3 F H Pulse Rate 102 H 99 H 108 H Pulse Rate [ 101 H From Monitor] Respiratory 12 16 18 Rate Blood Pressure 105/73 102/73 126/83 O2 Sat by Pulse 96 95 96 Oximetry 03/13/22 03/13/22 03/13/22 04:46 05:00 05:15 Temperature Pulse Rate 103 H 108 H 106 H Pulse Rate [ From Monitor] Respiratory 15 16 21 Rate Blood Pressure 137/80 117/73 126/87 O2 Sat by Pulse 95 94 91 Oximetry 03/13/22 03/13/22 03/13/22 05:30 05:45 06:00 Temperature Pulse Rate 101 H 104 H 98 H Pulse Rate [ From Monitor] Respiratory 16 16 16 Rate Blood Pressure 126/87 105/72 96/58 O2 Sat by Pulse 93 94 93 Oximetry 03/13/22 03/13/22 03/13/22 06:16 06:30 06:46 Temperature Pulse Rate 101 H 98 H 100 H Pulse Rate [ From Monitor] Respiratory 21 16 20 Rate Blood Pressure 116/82 107/76 114/76 O2 Sat by Pulse 96 94 98 Oximetry 03/13/22 03/13/22 03/13/22 07:00 07:15 07:17 Temperature 98.3 F Pulse Rate 100 H 97 H Pulse Rate [ From Monitor] Respiratory 14 17 Rate Blood Pressure 112/74 109/70 O2 Sat by Pulse 98 99 Oximetry 03/13/22 03/13/22 03/13/22 07:29 07:30 07:46 Temperature Pulse Rate 95 H 94 H 95 H Pulse Rate [ From Monitor] Respiratory 16 17 Rate Blood Pressure 96/66 96/66 108/64 O2 Sat by Pulse 100 100 98 Oximetry 03/13/22 03/13/22 03/13/22 08:00 08:15 08:30 Temperature Pulse Rate 94 H 94 H 92 H Pulse Rate [ 94 H From Monitor] Respiratory 15 15 21 Rate Blood Pressure 109/74 102/70 104/71 O2 Sat by Pulse 98 98 98 Oximetry 03/13/22 03/13/22 03/13/22 08:45 09:00 09:15 Temperature Pulse Rate 91 H 93 H 94 H Pulse Rate [ From Monitor] Respiratory 13 18 15 Rate Blood Pressure 100/71 108/73 112/72 O2 Sat by Pulse 99 97 97 Oximetry 03/13/22 03/13/22 03/13/22 09:30 09:45 10:00 Temperature Pulse Rate 92 H 93 H 94 H Pulse Rate [ From Monitor] Respiratory 15 14 15 Rate Blood Pressure 99/72 109/71 98/71 O2 Sat by Pulse 95 97 98 Oximetry 03/13/22 03/13/22 03/13/22 10:15 10:30 10:45 Temperature Pulse Rate 93 H 92 H 92 H Pulse Rate [ From Monitor] Respiratory 22 14 15 Rate Blood Pressure 104/67 100/64 99/69 O2 Sat by Pulse 94 97 94 Oximetry 03/13/22 03/13/22 03/13/22 11:00 11:15 11:30 Temperature Pulse Rate 92 H 94 H 94 H Pulse Rate [ From Monitor] Respiratory 14 20 14 Rate Blood Pressure 96/64 104/70 99/65 O2 Sat by Pulse 97 92 96 Oximetry 03/13/22 03/13/22 03/13/22 11:45 12:00 12:01 Temperature 99.2 F Pulse Rate 94 H 93 H Pulse Rate [ 93 H From Monitor] Respiratory 14 17 Rate Blood Pressure 109/72 101/67 O2 Sat by Pulse 97 94 Oximetry 03/13/22 03/13/22 12:15 12:30 Temperature Pulse Rate 95 H 97 H Pulse Rate [ From Monitor] Respiratory 15 19 Rate Blood Pressure 105/71 96/71 O2 Sat by Pulse 94 93 Oximetry Constitutional: no acute distress, alert Eyes: non-icteric ENT: oropharynx moist, other (ETT 24 cm BLANCA) Effort: mildly labored Ascultation: Bilateral: rales Percussion: Bilateral: not dull Cardiovascular: regular rate and rhythm Gastrointestinal: normoactive bowel sounds, soft, non-tender, non-distended Integumentary: normal Extremities: no cyanosis, no edema, pulses normal, no ischemia or petechiae Neurologic: pupils equal and round, unable to assess, other (weak) Psychiatric: other (unable to assess re: AMS) CBC and BMP: 03/18/22 05:20 03/18/22 05:20 ABG, PT/INR, D-dimer: ABG ABG pH 7.386 pH Units (7.350-7.450) 03/13/22 09:50 ABG pCO2 39.1 mm Hg 03/13/22 09:50 ABG pO2 98.6 mm Hg (80.0-90.0) H 03/13/22 09:50 ABG O2 Saturation 97.5 % (95.0-99.0) 03/13/22 09:50 PT/INR, D-dimer PT 14.9 Sec. (12.2-14.9) 03/10/22 01:25 INR 1.03 (0.87-1.13) 03/10/22 01:25 D-Dimer 787.78 ng/mlDDU (0-234) H 03/10/22 05:45 Abnormal lab findings: Abnormal Labs 03/10/22 03/10/22 03/10/22 01:19 01:25 01:25 WBC RBC Hgb Hct RDW 15.4 H Lymph % (Auto) 12.4 L Lymph # (Auto) 1.1 L Seg Neutrophils % 85.9 H Seg Neutrophils # D-Dimer ABG pH ABG pO2 59.3 L ABG HCO3 16.7 L ABG O2 Saturation 92.3 L ABG Base Excess -7.8 L ABG Hemoglobin 11.4 L Oxyhemoglobin 90.8 L Sodium 119 L* Potassium 3.1 L Chloride 88.1 L Carbon Dioxide 16 L BUN Creatinine 0.3 L Glucose 146 H POC Glucose Lactic Acid Uric Acid Calcium 8.2 L Phosphorus Magnesium 1.30 L Ferritin ALT 5 L Lactate Dehydrogenase Total Creatine Kinase CK-MB (CK-2) Troponin T NT-Pro-B Natriuret Pep Total Protein 5.4 L Albumin 3.6 L Prealbumin Cholesterol LDL Cholesterol Direct HDL Cholesterol Vitamin B12 Folate Urine WBC (Auto) 03/10/22 03/10/22 03/10/22 01:25 01:25 01:25 WBC RBC Hgb Hct RDW Lymph % (Auto) Lymph # (Auto) Seg Neutrophils % Seg Neutrophils # D-Dimer ABG pH ABG pO2 ABG HCO3 ABG O2 Saturation ABG Base Excess ABG Hemoglobin Oxyhemoglobin Sodium Potassium Chloride Carbon Dioxide BUN Creatinine Glucose POC Glucose Lactic Acid 3.60 H* Uric Acid Calcium Phosphorus Magnesium Ferritin ALT Lactate Dehydrogenase Total Creatine Kinase CK-MB (CK-2) 4.6 H Troponin T 0.164 H* NT-Pro-B Natriuret Pep 47313 H Total Protein Albumin Prealbumin Cholesterol 259 H LDL Cholesterol Direct 187 H HDL Cholesterol 63 H Vitamin B12 Folate Urine WBC (Auto) 03/10/22 03/10/22 03/10/22 02:43 05:45 05:45 WBC RBC Hgb Hct RDW Lymph % (Auto) Lymph # (Auto) Seg Neutrophils % Seg Neutrophils # D-Dimer 787.78 H ABG pH ABG pO2 ABG HCO3 ABG O2 Saturation ABG Base Excess ABG Hemoglobin Oxyhemoglobin Sodium Potassium Chloride Carbon Dioxide BUN Creatinine Glucose POC Glucose Lactic Acid 3.70 H* 3.10 H* Uric Acid Calcium Phosphorus Magnesium Ferritin ALT Lactate Dehydrogenase Total Creatine Kinase CK-MB (CK-2) Troponin T NT-Pro-B Natriuret Pep Total Protein Albumin Prealbumin Cholesterol LDL Cholesterol Direct HDL Cholesterol Vitamin B12 Folate Urine WBC (Auto) 03/10/22 03/10/22 03/10/22 05:45 05:45 12:24 WBC RBC Hgb Hct RDW Lymph % (Auto) Lymph # (Auto) Seg Neutrophils % Seg Neutrophils # D-Dimer ABG pH ABG pO2 ABG HCO3 ABG O2 Saturation ABG Base Excess ABG Hemoglobin Oxyhemoglobin Sodium 124 L Potassium 3.3 L Chloride Carbon Dioxide 11 L BUN Creatinine 0.2 L Glucose POC Glucose Lactic Acid Uric Acid Calcium 6.9 L D Phosphorus Magnesium Ferritin 219.2 H ALT Lactate Dehydrogenase 210 H Total Creatine Kinase CK-MB (CK-2) Troponin T NT-Pro-B Natriuret Pep Total Protein Albumin Prealbumin Cholesterol LDL Cholesterol Direct HDL Cholesterol Vitamin B12 Folate Urine WBC (Auto) 03/10/22 03/10/22 03/10/22 12:24 12:24 12:24 WBC RBC Hgb Hct RDW Lymph % (Auto) Lymph # (Auto) Seg Neutrophils % Seg Neutrophils # D-Dimer ABG pH ABG pO2 ABG HCO3 ABG O2 Saturation ABG Base Excess ABG Hemoglobin Oxyhemoglobin Sodium 128 L Potassium Chloride Carbon Dioxide BUN Creatinine Glucose POC Glucose Lactic Acid 2.70 H* Uric Acid Calcium Phosphorus Magnesium Ferritin ALT Lactate Dehydrogenase Total Creatine Kinase 901 H CK-MB (CK-2) 15.3 H Troponin T 0.032 H D NT-Pro-B Natriuret Pep Total Protein Albumin Prealbumin Cholesterol LDL Cholesterol Direct HDL Cholesterol Vitamin B12 Folate Urine WBC (Auto) 03/10/22 03/10/22 03/10/22 12:45 13:15 18:00 WBC RBC Hgb Hct RDW Lymph % (Auto) Lymph # (Auto) Seg Neutrophils % Seg Neutrophils # D-Dimer ABG pH 7.315 L ABG pO2 70.1 L ABG HCO3 15.6 L ABG O2 Saturation 93.8 L ABG Base Excess -9.5 L ABG Hemoglobin 11.0 L Oxyhemoglobin 92.4 L Sodium 129 L Potassium Chloride Carbon Dioxide 17 L BUN Creatinine 0.2 L Glucose POC Glucose Lactic Acid Uric Acid 1.6 L Calcium 7.0 L Phosphorus Magnesium Ferritin ALT Lactate Dehydrogenase Total Creatine Kinase CK-MB (CK-2) Troponin T NT-Pro-B Natriuret Pep Total Protein Albumin Prealbumin Cholesterol LDL Cholesterol Direct HDL Cholesterol Vitamin B12 Folate Urine WBC (Auto) 03/10/22 03/10/22 03/11/22 18:20 21:05 05:00 WBC 13.7 H RBC 3.44 L Hgb 9.6 L Hct 29.0 L D RDW Lymph % (Auto) 8.9 L Lymph # (Auto) Seg Neutrophils % 86.6 H Seg Neutrophils # 11.8 H D-Dimer ABG pH ABG pO2 116.3 H ABG HCO3 17.2 L ABG O2 Saturation ABG Base Excess -6.4 L ABG Hemoglobin 11.0 L Oxyhemoglobin Sodium Potassium Chloride Carbon Dioxide BUN Creatinine Glucose POC Glucose Lactic Acid Uric Acid Calcium Phosphorus Magnesium Ferritin ALT Lactate Dehydrogenase Total Creatine Kinase CK-MB (CK-2) Troponin T NT-Pro-B Natriuret Pep Total Protein Albumin Prealbumin Cholesterol LDL Cholesterol Direct HDL Cholesterol Vitamin B12 Folate Urine WBC (Auto) 105.0 H 03/11/22 03/11/22 03/12/22 05:00 Unknown 04:10 WBC RBC Hgb Hct RDW Lymph % (Auto) Lymph # (Auto) Seg Neutrophils % Seg Neutrophils # D-Dimer ABG pH 7.472 H 7.482 H ABG pO2 65.5 L ABG HCO3 19.8 L ABG O2 Saturation ABG Base Excess -2.9 L ABG Hemoglobin 10.1 L 8.4 L Oxyhemoglobin Sodium 132 L Potassium Chloride Carbon Dioxide 20 L BUN 6 L Creatinine 0.2 L Glucose POC Glucose Lactic Acid Uric Acid Calcium 7.5 L Phosphorus Magnesium Ferritin ALT Lactate Dehydrogenase Total Creatine Kinase CK-MB (CK-2) Troponin T NT-Pro-B Natriuret Pep Total Protein Albumin Prealbumin Cholesterol LDL Cholesterol Direct HDL Cholesterol Vitamin B12 Folate Urine WBC (Auto) 03/12/22 03/12/22 03/12/22 04:20 04:20 12:25 WBC 13.6 H RBC 3.11 L Hgb 8.7 L Hct 26.1 L RDW Lymph % (Auto) Lymph # (Auto) Seg Neutrophils % Seg Neutrophils # D-Dimer ABG pH ABG pO2 ABG HCO3 ABG O2 Saturation ABG Base Excess ABG Hemoglobin Oxyhemoglobin Sodium 128 L Potassium 3.2 L Chloride 93.9 L Carbon Dioxide BUN 4 L Creatinine 0.2 L Glucose 103 H POC Glucose 116 H Lactic Acid Uric Acid Calcium 7.4 L Phosphorus 1.10 L Magnesium 2.40 H Ferritin ALT Lactate Dehydrogenase Total Creatine Kinase CK-MB (CK-2) Troponin T NT-Pro-B Natriuret Pep Total Protein Albumin Prealbumin Cholesterol LDL Cholesterol Direct HDL Cholesterol Vitamin B12 Folate Urine WBC (Auto) 03/12/22 03/12/22 03/12/22 18:40 18:40 18:40 WBC RBC Hgb Hct RDW Lymph % (Auto) Lymph # (Auto) Seg Neutrophils % Seg Neutrophils # D-Dimer ABG pH ABG pO2 ABG HCO3 ABG O2 Saturation ABG Base Excess ABG Hemoglobin Oxyhemoglobin Sodium Potassium Chloride Carbon Dioxide BUN Creatinine Glucose POC Glucose Lactic Acid Uric Acid Calcium Phosphorus Magnesium Ferritin ALT Lactate Dehydrogenase Total Creatine Kinase CK-MB (CK-2) Troponin T NT-Pro-B Natriuret Pep Total Protein Albumin Prealbumin 0.044 L Cholesterol LDL Cholesterol Direct HDL Cholesterol Vitamin B12 1021 H Folate 2.15 L Urine WBC (Auto) 03/13/22 03/13/22 03/13/22 04:10 08:00 09:50 WBC 15.0 H RBC 2.82 L Hgb 8.0 L Hct 23.9 L RDW 15.5 H Lymph % (Auto) Lymph # (Auto) Seg Neutrophils % Seg Neutrophils # D-Dimer ABG pH ABG pO2 98.6 H ABG HCO3 ABG O2 Saturation ABG Base Excess ABG Hemoglobin 8.3 L Oxyhemoglobin Sodium 130 L Potassium Chloride 96.1 L Carbon Dioxide BUN Creatinine 0.4 L D Glucose 148 H POC Glucose Lactic Acid Uric Acid Calcium 7.3 L Phosphorus Magnesium Ferritin ALT Lactate Dehydrogenase Total Creatine Kinase CK-MB (CK-2) Troponin T NT-Pro-B Natriuret Pep Total Protein Albumin Prealbumin Cholesterol LDL Cholesterol Direct HDL Cholesterol Vitamin B12 Folate Urine WBC (Auto) Chest x-ray: image reviewed Allied health notes reviewed: RT
--- NOTE | 2022-03-13 15:03 | Progress Note ---
<FLAKITOJOSPEH EstefaniaDileep - Last Filed: 03/13/22 14:58> Assessment and Plan Assessment and plan: This is a 61-year-old female with MS and seizure disorder admitted with sepsis, hyponatremia, hypokalemia, elevated troponins and acute hypoxic respiratory failure Neuro: Acute metabolic encephalopathy, h/o Multiple Sclerosis, Seizure disorder -Neurology consulted, appreciate recommendations -Sedated with Fentanyl gtt -RASS goal 0 to -1 -Keppra -Reorientation as needed -Maintain sleep-wake cycle -Seizure precautions -As needed analgesia -CT head shows vascular angioplasty without clear evidence of acute intracranial hemorrhage -Neurology consulted, appreciate recommendations -MRI brain with and without contrast and MRI C-spine with and without contrast pending -EEG completed -UDS (+) for opiates -Prealbumin 0.044, vitamin B 12 1021, folate 2.15, syphilis nonreactive Cardiac: Hypotension, Elevated troponin -Cardiology consulted, appreciate recommendations -BNP 04443 -Blood pressure monitoring per protocol -Vasopressor support with Levophed gtt -MAP goal greater than 65 -Echocardiogram LVEF 50%, no pulmonary HTN Respiratory: Acute hypoxic respiratory failure -CCM consulted, appreciate recommendations -Intubated on 03/10 with 7.5 OETT at 23 cm at the lips in the ED -A.m. vent settings: AC TV 400, Rate 16, PEEP 6, FiO2 @ 35% -See RT notes for titration -A.m. ABG and CXR noted -VAP bundle -SPO2 monitoring GI: Moderate Protein Calorie Malnutrition, Transaminitis -24 hours +1145 mL -PPI -NTR consulted for tube feedings -BR: Miralax, Senokot S -Trend LFTs : Severe hyponatremia (improving) -Nephrology consulted, appreciate recommendations -Record intake and output -s/p Sodium Bicarb gtt -Renally dose medications -Avoid nephrotoxic medications -Trend BMP ID: Septic Shock, CAP, lactic acidosis (resolved) -Covid 19 PCR (-) -Infectious disease consulted, appreciate recommendation -Antibiotic therapy with cefepime -f/u blood culture -Monitor WBC and temperature curve Endo: NAD -Avoid hypoglycemia -SSI -Accu-Cheks q. 6hr Heme: Leukocytosis -Trend CBC -Transfuse hemoglobin less than 7 -SCDs to BLE while in bed The high probability of a clinically significant, sudden or life threatening deterioration of the [multiple] system(s) required my full and direct attention, intervention and personal management. The aggregate critical care time was [60] minutes. This time is in addition to time spent performing reported procedures but includes the following: [x] Data Review and interpretation [x] Patient assessment and monitoring of vital signs [x] Documentation [x] Medication orders and management Disposition Plan: icu Total Time Spent with Patient (Minutes): 60 History Interval history: This is a 61-year-old female with multiple sclerosis and seizure disorder who presented to emergency department on 03/10 via EMS for evaluation of shortness of breath and difficulty breathing. Upon arrival of EMS patient's SPO2 was in the 50s and she was hypotensive to 80s over 50s and was started on IV fluids in route and placed on CPAP. Upon arrival to the emergency department patient was placed on BiPAP and work-up in the emergency department included a CXR which showed multifocal pneumonia, lab work revealed hyponatremia, hypokalemia, lactic acidosis, metabolic acidosis and elevated troponins. Patient was started on empiric antibiotics and admitted to the hospital service with Sepsis, acute h ypoxic respiratory failure, electrolyte imbalances and elevated troponins with consults to cardiology, pulmonology and nephrology. Hospital Course to Date: 03/10: S/p intubation this am due to tachypnea and worsen mental status. Current sedated and stable on the vent. Patient is now on low dose Levophed gtt due to hypotension. Presented with a Na level of 119, on continuous NS at 125ml, repeat BMP pending. Continue IVF hydration and serial Na Q6hrs. Nephrology is also f ollowing. Continue empiric IV Abx for CAP, COVID PCR pending, ID consult pending. D-Dimer also elevated, BLE doppler ordered, therapeutic Lovenox initiated. D/W CCM patient is too unstable for transport at this time, possible CTA chest in the am or once patient is more stable. Cardiology was also co nsulted for elevated troponin X2, EKG noted with no significant ST changes, 2D echo pending. Resume home AEDs, continue seizure precautions. Monitor and replace electrolytes as needed 03/11: Intubated and low dose fentanyl gtt. Open eyes spontaneously but does not track, not following commands. NA level 132 this am, Nabcarb gtt initiated per Nephro. CT head/brain w/o con ordered to r/o intracranial abnormality. Wean off sedation to better assess mental status. Remains on Levophed gtt, afebrile, but with leukocytosis this am. This am CXR and ABG noted, with significant improvement. D/w CCM, PE less likely will hold off on CTA chest for now. Lovenox switched to Qday. Continue empiric IV Abx, ID consult pending. 03/12: Discontinue bicarb gtt, replete phos and potassium, added miralax. Remain on levo and fent gtt 03/11: MRI brain/C-spine completed, EEG completed. Hyponatremia improved, pat ient remains on Levophed. Had a temperature of 101.3 remains on cefepime. Will defer to ID for ID. Will reculture on next temperature spike. Hospitalist Physical - Constitutional Vitals: Temp Pulse Resp BP Pulse Ox 99.2 F 102 H 17 100/65 93 03/13/22 12:01 03/13/22 14:15 03/13/22 14:15 03/13/22 14:15 03/13/22 14:15 General appearance: Present: no acute distress, other (sedated, intubated) - EENT Eyes: Present: PERRL, EOM intact ENT: dentition normal - Neck Neck: Present: normal ROM - Respiratory Respiratory effort: normal Respiratory: bilateral: diminished - Cardiovascular Rhythm: regular Heart Sounds: Present: S1 & S2. Absent: systolic murmur, diastolic murmur - Extremities Extremities: no ischemia, pulses intact, pulses symmetrical, normal temperature, normal color Peripheral Pulses: within normal limits - Abdominal General gastrointestinal: soft, non-tender, non-distended, normal bowel sounds - Integumentary Integumentary: Present: warm, dry - Neurologic Neurologic: moves all extremities, other (Follows commands intermittently, intact cough/gag, positive track) - Allied Health Allied health notes reviewed: nursing, RT, social work HEART Score - HEART Score Troponin: Troponin T 0.032 ng/mL (0.00-0.029) H D 03/10/22 12:24 Results - Labs CBC & Chem 7: 03/13/22 08:00 03/13/22 04:10 Labs: Laboratory Last Values WBC 15.0 K/mm3 (4.5-11.0) H 03/13/22 08:00 RBC 2.82 M/mm3 (3.65-5.03) L 03/13/22 08:00 Hgb 8.0 gm/dl (10.1-14.3) L 03/13/22 08:00 Hct 23.9 % (30.3-42.9) L 03/13/22 08:00 MCV 85 fl (79-97) 03/13/22 08:00 MCH 28 pg (28-32) 03/13/22 08:00 MCHC 33 % (30-34) 03/13/22 08:00 RDW 15.5 % (13.2-15.2) H 03/13/22 08:00 Plt Count 194 K/mm3 (140-440) 03/13/22 08:00 Lymph % (Auto) 8.9 % (13.4-35.0) L 03/11/22 05:00 [place] % (Auto) 4.2 % (0.0-7.3) 03/11/22 05:00 Eos % (Auto) 0.1 % (0.0-4.3) 03/11/22 05:00 Baso % (Auto) 0.2 % (0.0-1.8) 03/11/22 05:00 Lymph # (Auto) 1.2 K/mm3 (1.2-5.4) 03/11/22 05:00 [place] # (Auto) 0.6 K/mm3 (0.0-0.8) 03/11/22 05:00 Eos # (Auto) 0.0 K/mm3 (0.0-0.4) 03/11/22 05:00 Baso # (Auto) 0.0 K/mm3 (0.0-0.1) 03/11/22 05:00 Seg Neutrophils % 86.6 % (40.0-70.0) H 03/11/22 05:00 Seg Neutrophils # 11.8 K/mm3 (1.8-7.7) H 03/11/22 05:00 PT 14.9 Sec. (12.2-14.9) 03/10/22 01:25 INR 1.03 (0.87-1.13) 03/10/22 01:25 D-Dimer 787.78 ng/mlDDU (0-234) H 03/10/22 05:45 ABG pH 7.386 pH Units (7.350-7.450) 03/13/22 09:50 ABG pCO2 39.1 mm Hg 03/13/22 09:50 ABG pO2 98.6 mm Hg (80.0-90.0) H 03/13/22 09:50 ABG HCO3 22.9 mmol/L (20.0-26.0) 03/13/22 09:50 ABG O2 Saturation 97.5 % (95.0-99.0) 03/13/22 09:50 ABG O2 Content 11.4 (0.0-44) 03/13/22 09:50 ABG Base Excess -2.0 mmol/L (-2.0-3.0) 03/13/22 09:50 ABG Hemoglobin 8.3 gm/dl (12.0-16.0) L 03/13/22 09:50 ABG Carboxyhemoglobin 1.3 % (0.0-5.0) 03/13/22 09:50 ABG Methemoglobin 0.4 % (0.0-1.5) 03/13/22 09:50 Oxyhemoglobin 95.8 % (95.0-99.0) 03/13/22 09:50 FiO2 40 % 03/13/22 09:50 Sodium 130 mmol/L (137-145) L 03/13/22 04:10 Potassium 3.9 mmol/L (3.6-5.0) D 03/13/22 04:10 Chloride 96.1 mmol/L (98-107) L 03/13/22 04:10 Carbon Dioxide 24 mmol/L (22-30) 03/13/22 04:10 Anion Gap 14 mmol/L 03/13/22 04:10 BUN 10 mg/dL (7-17) 03/13/22 04:10 Creatinine 0.4 mg/dL (0.6-1.2) L D 03/13/22 04:10 Estimated GFR > 60 ml/min 03/13/22 04:10 BUN/Creatinine Ratio 25 % 03/13/22 04:10 Glucose 148 mg/dL (65-100) H 03/13/22 04:10 POC Glucose 116 mg/dL (70-105) H 03/12/22 12:25 Osmolality 285 Mosm/kg 03/10/22 12:24 Lactic Acid 1.70 mmol/L (0.7-2.0) 03/11/22 05:00 Uric Acid 1.6 mg/dL (3.5-7.6) L 03/10/22 13:15 Calcium 7.3 mg/dL (8.4-10.2) L 03/13/22 04:10 Phosphorus 3.10 mg/dL (2.5-4.5) D 03/13/22 04:10 Magnesium 2.30 mg/dL (1.7-2.3) 03/13/22 04:10 Ferritin 219.2 ng/mL (10.0-200.0) H 03/10/22 05:45 Total Bilirubin 0.50 mg/dL (0.1-1.2) 03/10/22 01:25 AST 16 units/L (5-40) 03/10/22 01:25 ALT 5 units/L (7-56) L 03/10/22 01:25 Alkaline Phosphatase 61 units/L (35-129) 03/10/22 01:25 Lactate Dehydrogenase 210 units/L (91-180) H 03/10/22 05:45 Total Creatine Kinase 901 units/L (30-135) H 03/10/22 12:24 CK-MB (CK-2) 15.3 ng/mL (0.0-4.0) H 03/10/22 12:24 CK-MB (CK-2) Rel Index 1.6 (0-4) 03/10/22 12:24 Troponin T 0.032 ng/mL (0.00-0.029) H D 03/10/22 12:24 C-Reactive Protein < 0.03 mg/dL (0.00-1.30) 03/10/22 05:45 NT-Pro-B Natriuret Pep 26084 pg/mL (0-900) H 03/10/22 01:25 Total Protein 5.4 g/dL (6.3-8.2) L 03/10/22 01:25 Albumin 3.6 g/dL (3.9-5) L 03/10/22 01:25 Albumin/Globulin Ratio 2.0 % 03/10/22 01:25 Prealbumin 0.044 g/L (0.200-0.400) L 03/12/22 18:40 Triglycerides 47 mg/dL (2-149) 03/10/22 01:25 Cholesterol 259 mg/dL (50-199) H 03/10/22 01:25 LDL Cholesterol Direct 187 mg/dL (50-130) H 03/10/22 01:25 HDL Cholesterol 63 mg/dL (40-59) H 03/10/22 01:25 Cholesterol/HDL Ratio 4.11 % 03/10/22 01:25 Lipase 15 units/L (13-60) 03/10/22 01:25 Vitamin B12 1021 pg/mL (211-911) H 03/12/22 18:40 Folate 2.15 ng/mL (7.3-26.0) L 03/12/22 18:40 Procalcitonin 3.92 ng/mL (<0.15) 03/10/22 05:45 TSH 1.290 mlU/mL (0.270-4.200) 03/12/22 18:40 Urine Color Yellow (Yellow) 03/10/22 18:20 Urine Turbidity Clear (Clear) 03/10/22 18:20 Urine pH 6.0 (5.0-7.0) 03/10/22 18:20 Ur Specific [place] 1.010 (1.003-1.030) 03/10/22 18:20 Urine Protein <15 mg/dl mg/dL (Negative) 03/10/22 18:20 Urine Glucose (UA) Neg mg/dL (Negative) 03/10/22 18:20 Urine Ketones Tr mg/dL (Negative) 03/10/22 18:20 Urine Blood Sm (Negative) 03/10/22 18:20 Urine Nitrite Neg (Negative) 03/10/22 18:20 Urine Bilirubin Neg (Negative) 03/10/22 18:20 Urine Urobilinogen < 2.0 mg/dL (<2.0) 03/10/22 18:20 Ur Leukocyte Esterase Lg (Negative) 03/10/22 18:20 Urine WBC (Auto) 105.0 /HPF (0.0-6.0) H 03/10/22 18:20 Urine RBC (Auto) 2.0 /HPF (0.0-6.0) 03/10/22 18:20 U Epithel Cells (Auto) < 1.0 /HPF (0-13.0) 03/10/22 18:20 Urine Bacteria (Auto) 1+ /HPF (Negative) 03/10/22 18:20 Urine Osmolality 368 Mosm/kg 03/10/22 18:20 Urine Sodium 64 mmol/L 03/10/22 18:20 Urine Opiates Screen Presumptive positive 03/10/22 18:20 Urine Methadone Screen Presumptive negative 03/10/22 18:20 Ur Barbiturates Screen Presumptive negative 03/10/22 18:20 Ur Phencyclidine Scrn Presumptive negative 03/10/22 18:20 Ur Amphetamines Screen Presumptive negative 03/10/22 18:20 U Benzodiazepines Scrn Presumptive negative 03/10/22 18:20 Urine Cocaine Screen Presumptive negative 03/10/22 18:20 U Marijuana (THC) Screen Presumptive negative 03/10/22 18:20 Drugs of Abuse Note Disclamer 03/10/22 18:20 Syphilis IgG/IgM Ab Nonreactive (NonReactive) 03/12/22 18:40 SARS-CoV-2 (PCR) Negative (Negative) 03/10/22 09:50 Microbiology: Microbiology 03/10/22 01:25 Peripheral/Venous Blood Culture - Preliminary NO GROWTH AFTER 72 HOURS 03/10/22 01:59 Peripheral/Venous Blood Culture - Preliminary NO GROWTH AFTER 72 HOURS [place]/IV: Voiding Method External Female Catheter Active Medications - Current Medications Current Medications: Generic Name Dose Route Start Last Admin Trade Name Freq PRN Reason Stop Dose Admin Acetaminophen 650 mg 03/13/22 05:50 03/13/22 06:10 Acetaminophen 325 Mg/10.15 Ml Oral Liqd Unit Dose FEEDTUBE 650 mg Q6H PRN Administration Non Cardiac Pain or Temp>100.5 Enoxaparin Sodium 40 mg 03/12/22 10:00 03/13/22 10:54 Enoxaparin 40 Mg/0.4 Ml Inj SUB-Q 40 mg QDAY@1000 SHAHBAZ Administration Protocol Famotidine 20 mg 03/12/22 10:00 03/13/22 10:54 Famotidine 20 Mg Tab FEEDTUBE 20 mg BID SHAHBAZ Administration Fentanyl 50 mcg 03/10/22 10:58 Fentanyl 100 Mcg/2 Ml Inj IV Q10MIN PRN ANALGESIA Hydrophilic Ointment 1 applic 03/10/22 11:03 Lip Therapy Vaseline TP Q2HR PRN Dry Lips Fentanyl Citrate 2,000 mcg in 100 mls @ 4.16 mls/hr 03/10/22 11:00 03/13/22 06:06 Fentanyl Drip Premix IV 2 mcg/kg/hr TITR SHAHBAZ 8.32 mls/hr Titration Protocol 1 MCG/KG/HR NORepinephrine/NS 8 MG-250 ML 8 mg in 250 mls @ 3.75 mls/hr 03/10/22 11:00 03/13/22 06:00 Norepinephrine/Ns 8 Mg-250 Ml (Double Conc) IV 4 mcg/min TITRATE SHAHBAZ 7.5 mls/hr Titration Protocol 2 MCG/MIN Cefepime HCl 2 gm in 100 mls @ 200 mls/hr 03/12/22 20:00 03/13/22 13:00 Cefepime/Ns 2 Gm/100 Ml IV 200 mls/hr Q8H SHAHBAZ Administration Protocol Levetiracetam 500 mg 03/12/22 10:00 03/13/22 10:54 Levetiracetam 500 Mg/5 Ml Oral Liqd FEEDTUBE 500 mg BID SHAHBAZ Administration Magnesium Hydroxide 30 ml 03/10/22 02:56 Magnesium Hydroxide (Mom) Oral Liqd Udc PO Q4H PRN Constipation Multi-Ingred Cream/Lotion/Oil/Oint 1 applic 03/10/22 11:03 Mineral Oil/Petrolatum, White Ophth Oint 3.5 Gm OU Q4HR PRN Dry Eye(s) Ondansetron HCl 4 mg 03/10/22 02:56 Ondansetron 4 Mg/2 Ml Inj IV Q8H PRN Nausea And Vomiting Polyethylene Glycol 17 gm 03/12/22 10:00 03/13/22 10:54 Polyethylene Glycol 3350 17 Gm Powder FEEDTUBE 17 gm QDAY SHAHBAZ Administration Senna/Docusate Sodium 1 tab 03/10/22 22:00 03/13/22 10:54 Sennosides/Docusate Sodium 8.6/50 Mg Tab FEEDTUBE 1 tab BID SHAHBAZ Administration Sodium Chloride 10 ml 03/10/22 10:00 03/13/22 10:54 Sodium Chloride 0.9% 10 Ml Flush Syringe IV 10 ml BID SHAHBAZ Administration Sodium Chloride 10 ml 03/10/22 02:56 Sodium Chloride 0.9% 10 Ml Flush Syringe IV PRN PRN LINE FLUSH Nutrition/Malnutrition Assess - Dietary Evaluation Nutrition/Malnutrition Findings: Nutrition Notes Start: 03/10/22 12:22 Freq: Status: Active Protocol: Document 03/12/22 14:57 KAMILA (Rec: 03/12/22 15:06 KAMILA [id number]) Nutrition Notes Initial or Follow up Reassessment Current Diagnosis Sepsis,Respiratory Failure Other Pertinent Diagnosis Pneu, Hypotension, Acute metabolic encephalopathy Current Diet TF - Vital AF 1.2 at 60ml/hr Labs/Tests Na 128 K 3.2 Ca 7.4 (adjusted 7.72) Phos 1.1 Mg 2.4 Pertinent Medications Levophed gtt, Miralax, Senokot , 40mEq KCl, 45mmol KPhos x 1 dose Height 5 ft 6 in Weight 83.2 kg [place] Body Weight (kg) 59.09 BMI 29.6 Weight Status Overweight Subjective/Other Information Pt intubated on 03/10. Observed Vital AF 1.2 infusing at 40ml/hr. Pt tolerating TF . Percent of energy/protein needs met: 67% energy 72% pro Burn Absent Trauma Absent #1 Nutrition Diagnosis Inadequate oral intake As Evidenced by Signs and Symptoms pt remains on vent support and NPO Diagnosis Progress(for reassessment Continues documentation) Is patient on ventilator? Yes Is Patient Ambulatory and/or Out of Bed No REE-([facility]-confined to bed) 1713.168 Calculation Used for Recommendations [facility] Additional Notes Pro needs 1.2-2g/k-166g/ day Fluid needs 1ml/kcal Nutrition Intervention Nutrition Support: Continue Vital AF 1.2 to goal rate of 60ml/hr with 100ml water flush q4h. Kcal 1,728 Protein (gm) 108 Carbohydrates (gm) 159 Fat (gm) 78 Fluid (mL) 1,168 Fiber (gm) 7 Goal #1 TF tolerance Goal #2 TF to meet at least 75% energy and pro needs Follow-Up By: 03/14/22 Additional Comments F/U: TF goal rate/tolerance, vent status, BM, pressor support <IRWIN MENENDEZ - Last Filed: 03/22/22 12:24> Assessment and Plan Assessment and plan: I saw and evaluated the patient. Discussed with the nurse practitioner and agree with their findings and plan as documented in this note. Hospitalist Physical - Constitutional Vitals: Temp Pulse Resp BP Pulse Ox 99.3 F 88 28 H 93/62 100 03/22/22 06:57 03/22/22 11:00 03/22/22 11:00 03/22/22 11:00 03/22/22 11:00 HEART Score - HEART Score Troponin: Troponin T 0.032 ng/mL (0.00-0.029) H D 03/10/22 12:24 Results - Labs CBC & Chem 7: 03/22/22 04:10 03/22/22 04:10 Labs: Laboratory Last Values WBC 32.9 K/mm3 (4.5-11.0) H 03/22/22 04:10 RBC 2.60 M/mm3 (3.65-5.03) L 03/22/22 04:10 Hgb 7.4 gm/dl (10.1-14.3) L 03/22/22 04:10 Hct 22.3 % (30.3-42.9) L 03/22/22 04:10 MCV 86 fl (79-97) 03/22/22 04:10 MCH 29 pg (28-32) 03/22/22 04:10 MCHC 33 % (30-34) 03/22/22 04:10 RDW 16.8 % (13.2-15.2) H 03/22/22 04:10 Plt Count 517 K/mm3 (140-440) H 03/22/22 04:10 Lymph % (Auto) 8.9 % (13.4-35.0) L 03/11/22 05:00 [place] % (Auto) 4.2 % (0.0-7.3) 03/11/22 05:00 Eos % (Auto) 0.1 % (0.0-4.3) 03/11/22 05:00 Baso % (Auto) 0.2 % (0.0-1.8) 03/11/22 05:00 Lymph # (Auto) 1.2 K/mm3 (1.2-5.4) 03/11/22 05:00 [place] # (Auto) 0.6 K/mm3 (0.0-0.8) 03/11/22 05:00 Eos # (Auto) 0.0 K/mm3 (0.0-0.4) 03/11/22 05:00 Baso # (Auto) 0.0 K/mm3 (0.0-0.1) 03/11/22 05:00 Add Manual Diff Complete 03/21/22 04:40 Total Counted 100 03/21/22 04:40 Seg Neutrophils % 86.6 % (40.0-70.0) H 03/11/22 05:00 Seg Neuts % (Manual) 71.0 % (40.0-70.0) H 03/21/22 04:40 Band Neutrophils % 12.0 % 03/21/22 04:40 Lymphocytes % (Manual) 2.0 % (13.4-35.0) L 03/21/22 04:40 Reactive Lymphs % (Man) 0 % 03/21/22 04:40 Monocytes % (Manual) 7.0 % (0.0-7.3) 03/21/22 04:40 Eosinophils % (Manual) 3.0 % (0.0-4.3) 03/21/22 04:40 Basophils % (Manual) 0 % (0.0-1.8) 03/21/22 04:40 Metamyelocytes % 3.0 % 03/21/22 04:40 Myelocytes % 0 % 03/21/22 04:40 Promyelocytes % 2.0 % 03/21/22 04:40 Blast Cells % 0 % 03/21/22 04:40 Nucleated RBC % 1.0 % (0.0-0.9) H 03/21/22 04:40 Seg Neutrophils # 11.8 K/mm3 (1.8-7.7) H 03/11/22 05:00 Seg Neutrophils # Man 18.2 K/mm3 (1.8-7.7) H 03/21/22 04:40 Band Neutrophils # 3.1 K/mm3 03/21/22 04:40 Lymphocytes # (Manual) 0.5 K/mm3 (1.2-5.4) L 03/21/22 04:40 Abs React Lymphs (Man) 0.0 K/mm3 03/21/22 04:40 Monocytes # (Manual) 1.8 K/mm3 (0.0-0.8) H 03/21/22 04:40 Eosinophils # (Manual) 0.8 K/mm3 (0.0-0.4) H 03/21/22 04:40 Basophils # (Manual) 0.0 K/mm3 (0.0-0.1) 03/21/22 04:40 Metamyelocytes # 0.8 K/mm3 03/21/22 04:40 Myelocytes # 0.0 K/mm3 03/21/22 04:40 Promyelocytes # 0.5 K/mm3 03/21/22 04:40 Blast Cells # 0.0 K/mm3 03/21/22 04:40 WBC Morphology Not Reportable 03/21/22 04:40 Hypersegmented Neuts Not Reportable 03/21/22 04:40 Hyposegmented Neuts Not Reportable 03/21/22 04:40 Hypogranular Neuts Not Reportable 03/21/22 04:40 Smudge Cells Not Reportable 03/21/22 04:40 Toxic Granulation Not Reportable 03/21/22 04:40 Toxic Vacuolation Not Reportable 03/21/22 04:40 Dohle Bodies Not Reportable 03/21/22 04:40 Pelger-Huet Anomaly Not Reportable 03/21/22 04:40 Luis Rods Not Reportable 03/21/22 04:40 Platelet Estimate Consistent w auto 03/21/22 04:40 Clumped Platelets Not Reportable 03/21/22 04:40 Plt Clumps, EDTA Not Reportable 03/21/22 04:40 Large Platelets Few 03/21/22 04:40 Giant Platelets Not Reportable 03/21/22 04:40 Platelet Satelliting Not Reportable 03/21/22 04:40 Plt Morphology Comment Not Reportable 03/21/22 04:40 RBC Morphology Not Reportable 03/21/22 04:40 Dimorphic RBCs Not Reportable 03/21/22 04:40 Polychromasia Not Reportable 03/21/22 04:40 Hypochromasia 3+ 03/21/22 04:40 Poikilocytosis Not Reportable 03/21/22 04:40 Anisocytosis 1+ 03/21/22 04:40 Microcytosis 1+ 03/21/22 04:40 Macrocytosis Not Reportable 03/21/22 04:40 Spherocytes Not Reportable 03/21/22 04:40 Pappenheimer Bodies Not Reportable 03/21/22 04:40 Sickle Cells Not Reportable 03/21/22 04:40 Target Cells Rare 03/21/22 04:40 Tear Drop Cells Few 03/21/22 04:40 Ovalocytes 1+ 03/21/22 04:40 Helmet Cells Not Reportable 03/21/22 04:40 [place] Bodies Not Reportable 03/21/22 04:40 [place] Rings Not Reportable 03/21/22 04:40 Rudy Cells Not Reportable 03/21/22 04:40 Bite Cells Not Reportable 03/21/22 04:40 Crenated Cell Not Reportable 03/21/22 04:40 Elliptocytes Few 03/21/22 04:40 Acanthocytes (Spur) Not Reportable 03/21/22 04:40 Rouleaux Not Reportable 03/21/22 04:40 Hemoglobin C Crystals Not Reportable 03/21/22 04:40 Schistocytes Few 03/21/22 04:40 Malaria parasites Not Reportable 03/21/22 04:40 Tani Bodies Not Reportable 03/21/22 04:40 Hem Pathologist Commnt No 03/21/22 04:40 PT 17.2 Sec. (12.2-14.9) H 03/22/22 09:30 INR 1.25 (0.87-1.13) H 03/22/22 09:30 APTT 33.4 Sec. (24.2-36.6) 03/22/22 09:30 D-Dimer 787.78 ng/mlDDU (0-234) H 03/10/22 05:45 ABG pH 7.355 pH Units (7.350-7.450) 03/22/22 09:00 ABG pCO2 36.5 mm Hg 03/22/22 09:00 ABG pO2 82.0 mm Hg (80.0-90.0) 03/22/22 09:00 ABG HCO3 19.9 mmol/L (20.0-26.0) L 03/22/22 09:00 ABG O2 Saturation 96.8 % (95.0-99.0) 03/22/22 09:00 ABG O2 Content 20.1 (0.0-44) 03/22/22 09:00 ABG Base Excess -4.9 mmol/L (-2.0-3.0) L 03/22/22 09:00 ABG Hemoglobin 7.5 gm/dl (12.0-16.0) L 03/22/22 09:00 ABG Carboxyhemoglobin 1.7 % (0.0-5.0) 03/22/22 09:00 ABG Methemoglobin TNR 03/22/22 09:00 Oxyhemoglobin 95.2 % (95.0-99.0) 03/22/22 09:00 FiO2 80 % 03/22/22 09:00 Sodium 137 mmol/L (137-145) 03/22/22 04:10 Potassium 5.4 mmol/L (3.6-5.0) H 03/22/22 04:10 Chloride 97.2 mmol/L (98-107) L 03/22/22 04:10 Carbon Dioxide 21 mmol/L (22-30) L 03/22/22 04:10 Anion Gap 24 mmol/L 03/22/22 04:10 BUN 116 mg/dL (7-17) H 03/22/22 04:10 Creatinine 1.6 mg/dL (0.6-1.2) H 03/22/22 04:10 Estimated GFR 33 ml/min 03/22/22 04:10 BUN/Creatinine Ratio 73 % 03/22/22 04:10 Glucose 142 mg/dL (65-100) H 03/22/22 04:10 POC Glucose 95 mg/dL (70-105) 03/21/22 11:58 Osmolality 285 Mosm/kg 03/10/22 12:24 Lactic Acid 0.90 mmol/L (0.7-2.0) 03/18/22 05:20 Uric Acid 1.6 mg/dL (3.5-7.6) L 03/10/22 13:15 Calcium 8.5 mg/dL (8.4-10.2) 03/22/22 04:10 Phosphorus 3.70 mg/dL (2.5-4.5) 03/18/22 05:20 Magnesium 2.00 mg/dL (1.7-2.3) 03/18/22 05:20 Ferritin 219.2 ng/mL (10.0-200.0) H 03/10/22 05:45 Total Bilirubin 0.30 mg/dL (0.1-1.2) 03/18/22 05:20 AST 39 units/L (5-40) 03/18/22 05:20 ALT 14 units/L (7-56) 03/18/22 05:20 Alkaline Phosphatase 119 units/L (35-129) 03/18/22 05:20 Lactate Dehydrogenase 210 units/L (91-180) H 03/10/22 05:45 Total Creatine Kinase 901 units/L (30-135) H 03/10/22 12:24 CK-MB (CK-2) 15.3 ng/mL (0.0-4.0) H 03/10/22 12:24 CK-MB (CK-2) Rel Index 1.6 (0-4) 03/10/22 12:24 Troponin T 0.032 ng/mL (0.00-0.029) H D 03/10/22 12:24 C-Reactive Protein < 0.03 mg/dL (0.00-1.30) 03/10/22 05:45 NT-Pro-B Natriuret Pep 61219 pg/mL (0-900) H 03/10/22 01:25 Total Protein 5.4 g/dL (6.3-8.2) L 03/18/22 05:20 Albumin 2.0 g/dL (3.9-5) L 03/18/22 05:20 Albumin/Globulin Ratio 0.6 % 03/18/22 05:20 Prealbumin 0.044 g/L (0.200-0.400) L 03/12/22 18:40 Triglycerides 47 mg/dL (2-149) 03/10/22 01:25 Cholesterol 259 mg/dL (50-199) H 03/10/22 01:25 LDL Cholesterol Direct 187 mg/dL (50-130) H 03/10/22 01:25 HDL Cholesterol 63 mg/dL (40-59) H 03/10/22 01:25 Cholesterol/HDL Ratio 4.11 % 03/10/22 01:25 Lipase 15 units/L (13-60) 03/10/22 01:25 Vitamin B1 28 nmol/L (8-30) 03/13/22 08:00 Vitamin B12 1021 pg/mL (211-911) H 03/12/22 18:40 Folate 2.15 ng/mL (7.3-26.0) L 03/12/22 18:40 Procalcitonin 3.92 ng/mL (<0.15) 03/10/22 05:45 TSH 1.290 mlU/mL (0.270-4.200) 03/12/22 18:40 Urine Color Yellow (Yellow) 03/10/22 18:20 Urine Turbidity Clear (Clear) 03/10/22 18:20 Urine pH 6.0 (5.0-7.0) 03/10/22 18:20 Ur Specific [place] 1.010 (1.003-1.030) 03/10/22 18:20 Urine Protein <15 mg/dl mg/dL (Negative) 03/10/22 18:20 Urine Glucose (UA) Neg mg/dL (Negative) 03/10/22 18:20 Urine Ketones Tr mg/dL (Negative) 03/10/22 18:20 Urine Blood Sm (Negative) 03/10/22 18:20 Urine Nitrite Neg (Negative) 03/10/22 18:20 Urine Bilirubin Neg (Negative) 03/10/22 18:20 Urine Urobilinogen < 2.0 mg/dL (<2.0) 03/10/22 18:20 Ur Leukocyte Esterase Lg (Negative) 03/10/22 18:20 Urine WBC (Auto) 105.0 /HPF (0.0-6.0) H 03/10/22 18:20 Urine RBC (Auto) 2.0 /HPF (0.0-6.0) 03/10/22 18:20 U Epithel Cells (Auto) < 1.0 /HPF (0-13.0) 03/10/22 18:20 Urine Bacteria (Auto) 1+ /HPF (Negative) 03/10/22 18:20 Urine Osmolality 368 Mosm/kg 03/10/22 18:20 Urine Creatinine 34.4 mg/dL (0.1-20.0) H 03/19/22 14:40 Urine Sodium 18 mmol/L 03/19/22 14:40 Urine Opiates Screen Presumptive positive 03/10/22 18:20 Urine Methadone Screen Presumptive negative 03/10/22 18:20 Ur Barbiturates Screen Presumptive negative 03/10/22 18:20 Ur Phencyclidine Scrn Presumptive negative 03/10/22 18:20 Ur Amphetamines Screen Presumptive negative 03/10/22 18:20 U Benzodiazepines Scrn Presumptive negative 03/10/22 18:20 Urine Cocaine Screen Presumptive negative 03/10/22 18:20 U Marijuana (THC) Screen Presumptive negative 03/10/22 18:20 Drugs of Abuse Note Disclamer 03/10/22 18:20 Copper 118 mcg/dL (70-175) 03/12/22 18:40 Syphilis IgG/IgM Ab Nonreactive (NonReactive) 03/12/22 18:40 SARS-CoV-2 (PCR) Negative (Negative) 03/10/22 09:50 Blood Type O POSITIVE 03/15/22 09:42 Antibody Screen Negative 03/15/22 09:42 Crossmatch See Detail 03/15/22 09:42 Microbiology: Microbiology 03/18/22 Unknown Urine,Catheterized - Indwelling Catheter Urine Culture - Final NO GROWTH AFTER 48 HOURS 03/18/22 15:12 Peripheral/Venous Blood Culture - Preliminary NO GROWTH AFTER 72 HOURS 03/18/22 15:12 Peripheral/Venous Blood Culture - Preliminary NO GROWTH AFTER 72 HOURS [place]/IV: Voiding Method Indwelling Catheter Active Medications - Current Medications Current Medications: Generic Name Dose Route Start Last Admin Trade Name Freq PRN Reason Stop Dose Admin Acetaminophen 650 mg 03/13/22 05:50 03/19/22 18:38 Acetaminophen 325 Mg/10.15 Ml Oral Liqd Unit Dose FEEDTUBE 650 mg Q6H PRN Administration Non Cardiac Pain or Temp>100.5 Bisacodyl 10 mg 03/15/22 10:00 Bisacodyl 5 Mg Tab PO QDAY PRN Constipation Famotidine 10 mg 03/22/22 10:00 03/22/22 09:15 Famotidine 10 Mg Tab FEEDTUBE 10 mg BID SHAHBAZ Administration Fentanyl 50 mcg 03/10/22 10:58 03/14/22 20:48 Fentanyl 100 Mcg/2 Ml Inj IV 50 mcg Q10MIN PRN Administration ANALGESIA Hydrophilic Ointment 1 applic 03/10/22 11:03 Lip Therapy Vaseline TP Q2HR PRN Dry Lips Fentanyl Citrate 2,000 mcg in 100 mls @ 4.16 mls/hr 03/10/22 11:00 03/22/22 09:18 Fentanyl Drip Premix IV 4 mcg/kg/hr TITR SHAHBAZ 16.64 mls/hr Administration Protocol 1 MCG/KG/HR NORepinephrine/NS 8 MG-250 ML 8 mg in 250 mls @ 3.75 mls/hr 03/10/22 11:00 03/21/22 21:35 Norepinephrine/Ns 8 Mg-250 Ml (Double Conc) IV 10 mcg/min TITRATE SHAHBAZ 18.75 mls/hr Administration Protocol 2 MCG/MIN Vasopressin 20 unit/ Sodium 101 mls @ 9.09 mls/hr 03/21/22 15:00 03/22/22 00:03 Chloride IV 0.03 units/min TITR SHAHBAZ 9.09 mls/hr Administration Protocol 0.03 UNITS/MIN Levofloxacin/Dextrose 750 mg in 150 mls @ 100 mls/hr 03/23/22 12:00 Levaquin 750mg/150ml IV 03/27/22 13:29 Q48H SHAHBAZ Protocol Heparin Sodium/Sodium Chloride 25,000 unit in 500 mls @ 24 mls/hr 03/22/22 09:00 03/22/22 09:16 Heparin/ 0.45% Nacl-25,000 Unit/500 Ml IV 1,200 units/hr TITR SHAHBAZ 24 mls/hr Administration Protocol 1,200 UNITS/HR Metronidazole 500 mg in 100 mls @ 100 mls/hr 03/22/22 09:00 03/22/22 09:16 Flagyl 500 Mg/100 Ml IV 100 mls/hr Q8H SHAHBAZ Administration Protocol Levetiracetam 500 mg 03/12/22 10:00 03/22/22 09:15 Levetiracetam 500 Mg/5 Ml Oral Liqd FEEDTUBE 500 mg BID SHAHBAZ Administration Magnesium Hydroxide 30 ml 03/10/22 02:56 Magnesium Hydroxide (Mom) Oral Liqd Udc PO Q4H PRN Constipation Midodrine 15 mg 03/21/22 16:00 03/22/22 11:47 Midodrine 5 Mg Tab PO 15 mg TID@0800,1200,1600 [facility] Administration Multi-Ingred Cream/Lotion/Oil/Oint 1 applic 03/10/22 11:03 Mineral Oil/Petrolatum, White Ophth Oint 3.5 Gm OU Q4HR PRN Dry Eye(s) Ondansetron HCl 4 mg 03/10/22 02:56 Ondansetron 4 Mg/2 Ml Inj IV Q8H PRN Nausea And Vomiting Scopolamine 1 each 03/21/22 10:00 03/21/22 10:28 Scopolamine Transdermal Patch 72 Hr TD 1 each Q3D SHAHBAZ Administration Sodium Chloride 10 ml 03/10/22 10:00 03/22/22 11:15 Sodium Chloride 0.9% 10 Ml Flush Syringe IV 10 ml BID SHAHBAZ Administration Sodium Chloride 10 ml 03/10/22 02:56 Sodium Chloride 0.9% 10 Ml Flush Syringe IV PRN PRN LINE FLUSH Vancomycin HCl 500 mg 03/22/22 12:00 03/22/22 11:47 Vancomycin 250 Mg/10 Ml Oral Liqd PO 500 mg Q6HR SHAHBAZ Administration Protocol Nutrition/Malnutrition Assess - Dietary Evaluation Nutrition/Malnutrition Findings: Nutrition Notes Start: 03/10/22 12:22 Freq: Status: Active Protocol: Document 03/21/22 15:08 JOSH (Rec: 03/21/22 15:18 JOSH [id number]) Nutrition Notes Initial or Follow up Reassessment Current Diagnosis Hypertension,Respiratory Failure,Malnutrition Other Pertinent Diagnosis MS, CAP, Seizure, Metabolic Encephalopathy, Septic Shock, NSTEMI, UTI ... Current Diet TF-Vital AF 1.2 En @ 60 ml/hr (since D 03/10). Labs/Tests 03/21: Na 135, K 5.7, Cl 97.4, CO2 21, BUN 104, Crea 1.3, Glu 118. Pertinent Medications 03/21: Vasopressin 20U, others nutritionally unremarkable. Height 5 ft 6 in Weight 83.2 kg [place] Body Weight (kg) 59.09 BMI 29.6 Weight change and time frame No body weight change reported in 11 days. Weight Status Overweight Subjective/Other Information RD consult for routine F/U on TF tolerance/continuation. TF continues as prescribed, and well tolerated, according to RN notes. Pt remains on Mechanical Ventilation, O2 saturation @ 96%, according to Physical Assessment History notes. Pt presents bilateral-LE pitting edema 3+, according to Physical Assessment History notes. Pt presents an unspecified area of concern for skin risk at the time, according to Physical Assessment History notes. Percent of energy/protein needs met: Prescribed TF-Vital AF 1.2 En @ 60 ml/hr provides for energy/protein needs (1,728 Kcal/108 g) during LOS, 100% Kcal; 100% AA. Burn Absent Trauma Absent GI Symptoms None Food Allergy No Skin Integrity/Comment Unspecified area of concern. 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 Yes Is Patient Ambulatory and/or Out of Bed No REE-([facility]-confined to bed) 1713.168 Calculation Used for Recommendations [facility] Additional Notes Protein: 1-1.2 g/Kg ABW; 100- 166 g/day. Fluids: 1 ml/Kcal, or as per MD. Nutrition Intervention Nutrition Support: Continue TF-Vital AF 1.2 En @ 60 ml/hr. Flush: 100 ml water Q 4 hr, or as per MD. Kcal 1,728 Protein (gm) 108 Carbohydrates (gm) 159 Fat (gm) 78 Fluid (mL) 1,168 Fiber (gm) 7 % RDI: 100% Kcal; 100% AA. Goal #1 Provide at least 75% of energy /protein needs through Enteral Feeding during LOS. Follow-Up By: 03/28/22 Additional Comments Continue monitoring TF tolerance, Ventilation Status, Pressor support, and BM.
--- NOTE | 2022-03-13 18:51 | Progress Note ---
Assessment and Plan Cultures: Blood culture no growth so far Sputum culture no growth so far A/P: 61-year-old female past medical history of multiple sclerosis, seizures now with: #Acute sepsis: With fevers, leukocytosis. Secondary to bilateral pneumonia #Acute hypoxic respiratory failure on vent #Bilateral pneumonia #Multiple sclerosis Recs: -Continue cefepime 2 g every 8 hours given ongoing fevers despite antibiotics -Follow fever curve and white count Thank you for the consult, we will continue to follow. Lizy Ashraf MD [facility] ([facility] O: [phone] F: [phone] Subjective Date of service: 03/13/22 Principal diagnosis: AHRF; Multifocal Pneumonia; Septic shock; NSTEMI; AMS; Seizures Interval history: Febrile this morning to 1-1.3 with a white count of 15. Cultures are remain negative so far. She remains on the vent. Imaging personally reviewed: Chest x-ray: No significant change, patchy airspace opacities. Objective - Exam Narrative Exam: Physical Exam: Constitutional: intubated, sedated Head, Ears, Nose: Normocephalic, atraumatic. External ears, nose normal Eyes: Conjunctivae/corneas clear. No icterus. No ptosis. Neck: Supple, no meningeal signs Oral: ETT Cardiovascular: S1, S2 normal. Respiratory: Good air entry, clear to auscultation bilaterally GI: Soft, non-tender; bowel sounds normal. No peritoneal signs. Musculoskeletal: No pedal edema, no cyanosis. Skin: No rash or abscess Hem/Lymphatic: No palpable cervical or supraclavicular nodes. No lymphangitis Psych: Unable to assess Neurological: Unable to asses. - Constitutional Vitals: Vital Signs Temp Pulse Resp BP Pulse Ox 98.2 F 102 H 19 102/70 79 L 03/13/22 16:00 03/13/22 18:15 03/13/22 18:15 03/13/22 18:15 03/13/22 18:00 Temperature -Last 24 Hours Temperature 98.2 F Temperature 99.2 F Temperature 98.3 F Temperature 101.3 F Temperature 99.6 F Temperature 99.8 F - Labs CBC & Chem 7: 03/13/22 08:00 03/13/22 04:10 Labs: Abnormal lab results 03/12/22 03/12/22 03/12/22 Range/Units 18:40 18:40 18:40 WBC (4.5-11.0) K/mm3 RBC (3.65-5.03) M/mm3 Hgb (10.1-14.3) gm/dl Hct (30.3-42.9) % RDW (13.2-15.2) % ABG pO2 (80.0-90.0) mm Hg ABG Hemoglobin (12.0-16.0) gm/dl Sodium (137-145) mmol/L Chloride (98-107) mmol/L Creatinine (0.6-1.2) mg/dL Glucose (65-100) mg/dL Calcium (8.4-10.2) mg/dL Prealbumin 0.044 L (0.200-0.400) g/L Vitamin B12 1021 H (211-911) pg/mL Folate 2.15 L (7.3-26.0) ng/mL 03/13/22 03/13/22 03/13/22 Range/Units 04:10 08:00 09:50 WBC 15.0 H (4.5-11.0) K/mm3 RBC 2.82 L (3.65-5.03) M/mm3 Hgb 8.0 L (10.1-14.3) gm/dl Hct 23.9 L (30.3-42.9) % RDW 15.5 H (13.2-15.2) % ABG pO2 98.6 H (80.0-90.0) mm Hg ABG Hemoglobin 8.3 L (12.0-16.0) gm/dl Sodium 130 L (137-145) mmol/L Chloride 96.1 L (98-107) mmol/L Creatinine 0.4 L D (0.6-1.2) mg/dL Glucose 148 H (65-100) mg/dL Calcium 7.3 L (8.4-10.2) mg/dL Prealbumin (0.200-0.400) g/L Vitamin B12 (211-911) pg/mL Folate (7.3-26.0) ng/mL
[2022-03-13] MEDS: NORepinephrine/NS 8 MG-250 ML 8 MG/250 ML INFUS..BTL IV SCH (20:08)
[2022-03-13 20:38] LABS: ABG Base Excess -2.9 mmol/L (-2.0-3.0); ABG Methemoglobin 0.3 % (0.0-1.5); ABG Oxygen Saturation 97.1 % (95.0-99.0); ABG PCO2 38.6 mm Hg; ABG PH 7.374 pH Units (7.350-7.450); ABG PO2 86.8 mm Hg (80.0-90.0)
--- NOTE | 2022-03-13 21:19 | XRay Report ---
CHEST 1 VIEW 03/13/2022 8:12 PM INDICATION / CLINICAL INFORMATION: Hypoxia, respiratory failure. COMPARISON: One view of the chest from earlier today. FINDINGS: SUPPORT DEVICES: Unchanged. HEART / MEDIASTINUM: Stable. LUNGS / PLEURA: Bilateral airspace opacities have worsened. The right hemidiaphragm is elevated. No s ignificant pleural effusion. No pneumothorax. ADDITIONAL FINDINGS: No significant additional findings. IMPRESSION: Interval worsening of bilateral airspace opacities, which could represent pneumonia or evolving edema /ARDS. Signer Name: Tyrese Oneal MD Signed: 03/13/2022 9:15 PM Workstation Name: [id number]
[2022-03-13] MEDS ORDERED: FUROSEMIDE 20 MG/2 ML INJ IV ONE (22:27)
[2022-03-14] MEDS: CEFEPIME/NS 2 GM/100 ML 2 GM/100 ML BAG IV SCH ×3 (03:38→20:23)
[2022-03-14] MEDS: fentaNYL DRIP Premix 2,000 MCG/100 ML BAG IV SCH ×3 (05:04→22:45)
[2022-03-14 05:14] LABS: Hematocrit 23.6 % (30.3-42.9); Hemoglobin 7.8 gm/dl (10.1-14.3); Mean Corpuscular HGB Conc 33 % (30-34); Mean Corpuscular Volume 85 fl (79-97); Platelet Count 193 K/mm3 (140-440); Red Blood Count 2.79 M/mm3 (3.65-5.03); Red Cell Distribution Width 15.6 % (13.2-15.2)
[2022-03-14 05:29] LABS: Blood Urea Nitrogen 24 mg/dL (7-17); Hemolysis Index 6
[2022-03-14 05:34] LABS: BUN/Creatinine Ratio 48
--- NOTE | 2022-03-14 06:12 | XRay Report ---
CHEST 1 VIEW 03/14/2022 5:01 AM INDICATION / CLINICAL INFORMATION: follow up respiratory failure. COMPARISON: 03/13/2022 FINDINGS: SUPPORT DEVICES: Unchanged. HEART / MEDIASTINUM: Stable. LUNGS / PLEURA: Redemonstrated not significant changed patchy airspace opacities throughout the bilat eral lungs. No pneumothorax. ADDITIONAL FINDINGS: No significant additional findings. IMPRESSION: 1. No significant change. Signer Name: Charlie Venegas DO Signed: 03/14/2022 6:08 AM Workstation Name: [id number]
[2022-03-14] MEDS ORDERED: FUROSEMIDE 40 MG/4 ML INJ IV SCH (08:00)
--- NOTE | 2022-03-14 09:06 | Progress Note ---
Assessment and Plan Electrolyte Imbalance - Hold diuretics & f/u labs Hypotension - Optimize pressors as tolerated. Hold Diuretics until BP improves Pneumonia/Resp Failure - Vent Mx per Pulm Multiple Sclerosis - F/u Mx per Neuro Subjective Date of service: 03/14/22 Principal diagnosis: AHRF; Multifocal Pneumonia; Septic shock; NSTEMI; AMS; Seizures Interval history: On Vent, sedated, no change Objective - Vital Signs Vital signs: Vital Signs - 12hr 03/13/22 03/13/22 03/13/22 21:15 21:30 21:45 Temperature Pulse Rate 119 H 108 H 98 H Pulse Rate [ From Monitor] Respiratory 25 H 20 19 Rate Blood Pressure 107/65 98/65 86/64 O2 Sat by Pulse 97 100 100 Oximetry 03/13/22 03/13/22 03/13/22 22:00 22:07 22:15 Temperature Pulse Rate 96 H 97 H Pulse Rate [ From Monitor] Respiratory 18 17 Rate Blood Pressure 84/54 93/64 O2 Sat by Pulse 99 98 100 Oximetry 03/13/22 03/13/22 03/13/22 22:30 22:45 23:00 Temperature Pulse Rate 97 H 99 H 98 H Pulse Rate [ From Monitor] Respiratory 22 21 21 Rate Blood Pressure 99/64 103/68 103/69 O2 Sat by Pulse 100 100 100 Oximetry 03/13/22 03/13/22 03/13/22 23:15 23:30 23:45 Temperature Pulse Rate 99 H 99 H 99 H Pulse Rate [ From Monitor] Respiratory 18 17 18 Rate Blood Pressure 100/64 99/67 99/65 O2 Sat by Pulse 100 100 100 Oximetry 03/13/22 03/14/22 03/14/22 23:46 00:00 00:15 Temperature 97.9 F Pulse Rate 98 H 98 H Pulse Rate [ 99 H From Monitor] Respiratory 7 L 18 Rate Blood Pressure 97/64 96/67 O2 Sat by Pulse 98 99 Oximetry 03/14/22 03/14/22 03/14/22 00:30 00:45 01:00 Temperature Pulse Rate 99 H 98 H 99 H Pulse Rate [ From Monitor] Respiratory 19 20 23 Rate Blood Pressure 95/63 97/64 99/61 O2 Sat by Pulse 99 98 97 Oximetry 03/14/22 03/14/22 03/14/22 01:15 01:30 01:45 Temperature Pulse Rate 99 H 98 H Pulse Rate [ From Monitor] Respiratory 21 19 Rate Blood Pressure 91/62 92/59 92/59 O2 Sat by Pulse 97 98 95 Oximetry 03/14/22 03/14/22 03/14/22 02:00 02:15 02:30 Temperature Pulse Rate 100 H 98 H Pulse Rate [ From Monitor] Respiratory 18 25 H Rate Blood Pressure 92/63 102/66 95/64 O2 Sat by Pulse 93 91 92 Oximetry 03/14/22 03/14/22 03/14/22 02:45 03:00 03:15 Temperature Pulse Rate 100 H 100 H 99 H Pulse Rate [ From Monitor] Respiratory 20 20 26 H Rate Blood Pressure 94/68 89/63 96/71 O2 Sat by Pulse 92 93 93 Oximetry 03/14/22 03/14/22 03/14/22 03:30 03:45 03:50 Temperature 97.5 F L Pulse Rate 101 H 100 H Pulse Rate [ From Monitor] Respiratory 24 24 Rate Blood Pressure 101/70 99/70 O2 Sat by Pulse 98 93 Oximetry 03/14/22 03/14/22 03/14/22 04:00 04:15 04:31 Temperature Pulse Rate 100 H 101 H 102 H Pulse Rate [ 101 H From Monitor] Respiratory 20 20 23 Rate Blood Pressure 99/67 95/64 96/71 O2 Sat by Pulse 93 93 96 Oximetry 03/14/22 03/14/22 03/14/22 04:45 05:00 05:15 Temperature Pulse Rate 100 H 100 H 100 H Pulse Rate [ From Monitor] Respiratory 22 21 22 Rate Blood Pressure 105/72 98/69 96/64 O2 Sat by Pulse 94 96 94 Oximetry 03/14/22 03/14/22 03/14/22 05:30 05:45 06:00 Temperature Pulse Rate 102 H 99 H 98 H Pulse Rate [ From Monitor] Respiratory 25 H 20 18 Rate Blood Pressure 94/61 89/65 94/61 O2 Sat by Pulse 96 97 98 Oximetry 03/14/22 03/14/22 03/14/22 06:15 07:15 08:00 Temperature 100.6 F H Pulse Rate 98 H 100 H Pulse Rate [ From Monitor] Respiratory 18 Rate Blood Pressure 90/62 113/73 O2 Sat by Pulse 98 97 Oximetry - General Appearance General appearance: sedated on ventilator Neck: no JVD Respiratory: Present: Other (Air entry per vent) Cardiology: regular, S1S2 Gastrointestinal: other (Soft) Integumentary: warm and dry Neurologic: other (Sedated) - Lab 03/14/22 04:54 03/14/22 04:54 Most recent lab results ABG pH 7.374 pH Units (7.350-7.450) 03/13/22 20:15 ABG pCO2 38.6 mm Hg 03/13/22 20:15 ABG pO2 86.8 mm Hg (80.0-90.0) 03/13/22 20:15 ABG HCO3 22.0 mmol/L (20.0-26.0) 03/13/22 20:15 ABG O2 Saturation 97.1 % (95.0-99.0) 03/13/22 20:15 Calcium 7.0 mg/dL (8.4-10.2) L 03/14/22 04:54 Phosphorus 3.10 mg/dL (2.5-4.5) D 03/13/22 04:10 Magnesium 2.30 mg/dL (1.7-2.3) 03/13/22 04:10 Urine Sodium 64 mmol/L 03/10/22 18:20 Medications & Allergies - Medications Allergies/Adverse Reactions: Allergies Penicillins Allergy (Mild, Verified 01/11/19 12:20) Rash . Home Medications: Home Medications Medication Instructions Recorded Confirmed Last Taken Type Ciprofloxacin HCl [Ciprofloxacin 500 mg PO Q12H #14 tab 01/11/19 Unknown Rx TAB] levETIRAcetam [Keppra TAB] 500 mg PO BID #60 tablet 01/11/19 Unknown Rx Active Medications: Generic Name Dose Route Start Last Admin Trade Name Freq PRN Reason Stop Dose Admin Acetaminophen 650 mg 03/13/22 05:50 03/13/22 06:10 Acetaminophen 325 Mg/10.15 Ml Oral Liqd Unit Dose FEEDTUBE 650 mg Q6H PRN Administration Non Cardiac Pain or Temp>100.5 Enoxaparin Sodium 40 mg 03/12/22 10:00 03/13/22 10:54 Enoxaparin 40 Mg/0.4 Ml Inj SUB-Q 40 mg QDAY@1000 SHAHBAZ Administration Protocol Famotidine 20 mg 03/12/22 10:00 03/13/22 21:14 Famotidine 20 Mg Tab FEEDTUBE 20 mg BID SHAHBAZ Administration Fentanyl 50 mcg 03/10/22 10:58 Fentanyl 100 Mcg/2 Ml Inj IV Q10MIN PRN ANALGESIA Furosemide 40 mg 03/14/22 08:00 Furosemide 40 Mg/4 Ml Inj IV 0600,1800 SHAHBAZ Hydrophilic Ointment 1 applic 03/10/22 11:03 Lip Therapy Vaseline TP Q2HR PRN Dry Lips Fentanyl Citrate 2,000 mcg in 100 mls @ 4.16 mls/hr 03/10/22 11:00 03/14/22 05:04 Fentanyl Drip Premix IV 2 mcg/kg/hr TITR SHAHABZ 8.32 mls/hr Administration Protocol 1 MCG/KG/HR NORepinephrine/NS 8 MG-250 ML 8 mg in 250 mls @ 3.75 mls/hr 03/10/22 11:00 03/14/22 05:05 Norepinephrine/Ns 8 Mg-250 Ml (Double Conc) IV 6 mcg/min TITRATE SHAHBAZ 11.25 mls/hr Titration Protocol 2 MCG/MIN Cefepime HCl 2 gm in 100 mls @ 200 mls/hr 03/12/22 20:00 03/14/22 03:38 Cefepime/Ns 2 Gm/100 Ml IV 200 mls/hr Q8H SHAHBAZ Administration Protocol Potassium Chloride 10 meq in 100 mls @ 100 mls/hr 03/14/22 09:00 Kcl 10meq/100ml IV 03/14/22 12:59 Q1H SHAHBAZ Levetiracetam 500 mg 03/12/22 10:00 03/13/22 21:14 Levetiracetam 500 Mg/5 Ml Oral Liqd FEEDTUBE 500 mg BID SHAHBAZ Administration Magnesium Hydroxide 30 ml 03/10/22 02:56 Magnesium Hydroxide (Mom) Oral Liqd Udc PO Q4H PRN Constipation Multi-Ingred Cream/Lotion/Oil/Oint 1 applic 03/10/22 11:03 Mineral Oil/Petrolatum, White Ophth Oint 3.5 Gm OU Q4HR PRN Dry Eye(s) Ondansetron HCl 4 mg 03/10/22 02:56 Ondansetron 4 Mg/2 Ml Inj IV Q8H PRN Nausea And Vomiting Polyethylene Glycol 17 gm 03/12/22 10:00 03/13/22 10:54 Polyethylene Glycol 3350 17 Gm Powder FEEDTUBE 17 gm QDAY SHAHBAZ Administration Senna/Docusate Sodium 2 tab 03/14/22 10:00 Sennosides/Docusate Sodium 8.6/50 Mg Tab FEEDTUBE Q12H SHAHBAZ Sodium Chloride 10 ml 03/10/22 10:00 03/14/22 00:29 Sodium Chloride 0.9% 10 Ml Flush Syringe IV Not Given BID SHAHBAZ Sodium Chloride 10 ml 03/10/22 02:56 Sodium Chloride 0.9% 10 Ml Flush Syringe IV PRN PRN LINE FLUSH
[2022-03-14] MEDS: levETIRAcetam 500 MG/5 ML ORAL LIQD FEEDTUBE SCH ×2 (09:29→21:04)
[2022-03-14] MEDS: POLYETHYLENE GLYCOL 3350 17 GM POWDER FEEDTUBE SCH (09:29)
[2022-03-14] MEDS: ENOXAPARIN 40 MG/0.4 ML INJ SUB-Q SCH (09:30)
[2022-03-14] MEDS: SENNOSIDES/DOCUSATE SODIUM 8.6/50 MG TAB FEEDTUBE SCH ×2 (09:30→21:05)
[2022-03-14] MEDS: FAMOTIDINE 20 MG TAB FEEDTUBE SCH ×2 (09:30→21:04)
[2022-03-14] MEDS: POTASSIUM CHLORIDE 10 MEQ 10 MEQ/100 ML BAG IV SCH ×4 (09:31→12:54)
--- NOTE | 2022-03-14 10:43 | Progress Note ---
Assessment and Plan This is a 61-year-old female with known past medical history of Multiple Sclerosis and seizure disorder admitted for sepsis, Hyponatremia, and acute hypoxic respiratory failure requiring ventilatory support Acute Hypoxemic Respiratory Failure, on MVS Multifocal Pneumonia/CAP- possible aspiration Severe Hyponatremia- resolved Hypotension/Sepsis/Lactic Acidosis-Septic shock NSTEMI/Elevated Troponin- probable type 2 ischemia Elevated BNP Hypokalemia R/o COVID Acute Metabolic Encephalopathy H/o Seizure Disorder Elevated D-Dimer Moderate Protein Calorie Malnutrition Increase fentnayl infusion and titrate to patient-ventilator synchrony Increase PEEP to 12 at the bedside, while monitoring airway pressures ARDS net protocol continue to titrate supplemental oxygen to keep SpO2 90-92% Daily assessment for readiness to wean, SAT and SBT VAP bundle addressed, aspiration precautions HOB >40 continue lung protective strategies continue bronchodilators with pulmonary hygiene per RT Follow up MRI and EEG results -Continue to titrate vasopressor support to keep MAP>65 -Continue Antibiotics per ID -Continue to trend temperature curve and WCC -CXR, ABG in am - continue accuchecks with glycemic control per SSI (While critically ill target blood glucose of 140-180 mg/dL; avoid hypoglycemia) - avoid nephrotoxins, renally dose all medications - continue to avoid benzodiazepines, reduce the possibility of delirium - prn analgesia per CPOT score - Maintenance of sleep-wake cycle, avoid delirium - Continue with enteric nutritional support - VTE prophylaxis- anticoagulation with therapeutic Enoxaparin. -Stress ulcer prophylaxis- Famotidine -Chronic home medications as clinically indicated -Get surface echocardiography to evaluate LVEF and RVSP. - mobility, off loading and frequent turning per facility protocol to prevent pressure ulcers -Wound consult - Monitor hemodynamics closely - continue other care per attending / other consultants Patient is a FULL code. The high probability of a clinically significant, sudden or life threatening deterioration of the [respiratory, cardiovascular, neurology,renal ] system(s) required my full and direct attention, intervention and personal management. The aggregate critical care time was [35 ] minutes. This time is in addition to time spent performing reported procedures but includes the following: [x] Data Review and interpretation [x] Patient assessment and monitoring of vital signs [x] Documentation [x] Medication orders and management Subjective Date of service: 03/14/22 Principal diagnosis: AHRF; Multifocal Pneumonia; Septic shock; NSTEMI; AMS; Seiz ures Interval history: follow up fro: Acute hypoxemic resp failure on MVS; Acute encephalopathy; Septic shock; Bilateral pneumonia-aspiration/CAP Severe hyponatremia Seen and examined. Vitals, labs, medications, chart reviewed. Discussed with nursing and respiratory care staff. No fevers, remains on low dose norepinephrine, on fentanyl infusion and orally intubated. Vent: ACVC-20/400/+10/ 80% On going episodes of desaturations overnight with increased FIO2, Worsening hypotension with increase in Levophed rate. remains on Fentanyl-low dose Objective Vital Signs - 12hr 03/13/22 03/13/22 03/13/22 22:45 23:00 23:15 Temperature Pulse Rate 99 H 98 H 99 H Pulse Rate [ From Monitor] Respiratory 21 21 18 Rate Blood Pressure 103/68 103/69 100/64 O2 Sat by Pulse 100 100 100 Oximetry 03/13/22 03/13/22 03/13/22 23:30 23:45 23:46 Temperature 97.9 F Pulse Rate 99 H 99 H Pulse Rate [ From Monitor] Respiratory 17 18 Rate Blood Pressure 99/67 99/65 O2 Sat by Pulse 100 100 Oximetry 03/14/22 03/14/22 03/14/22 00:00 00:15 00:30 Temperature Pulse Rate 98 H 98 H 99 H Pulse Rate [ 99 H From Monitor] Respiratory 7 L 18 19 Rate Blood Pressure 97/64 96/67 95/63 O2 Sat by Pulse 98 99 99 Oximetry 03/14/22 03/14/22 03/14/22 00:45 01:00 01:15 Temperature Pulse Rate 98 H 99 H 99 H Pulse Rate [ From Monitor] Respiratory 20 23 21 Rate Blood Pressure 97/64 99/61 91/62 O2 Sat by Pulse 98 97 97 Oximetry 03/14/22 03/14/22 03/14/22 01:30 01:45 02:00 Temperature Pulse Rate 98 H Pulse Rate [ From Monitor] Respiratory 19 Rate Blood Pressure 92/59 92/59 92/63 O2 Sat by Pulse 98 95 93 Oximetry 03/14/22 03/14/22 03/14/22 02:15 02:30 02:45 Temperature Pulse Rate 100 H 98 H 100 H Pulse Rate [ From Monitor] Respiratory 18 25 H 20 Rate Blood Pressure 102/66 95/64 94/68 O2 Sat by Pulse 91 92 92 Oximetry 03/14/22 03/14/22 03/14/22 03:00 03:15 03:30 Temperature Pulse Rate 100 H 99 H 101 H Pulse Rate [ From Monitor] Respiratory 20 26 H 24 Rate Blood Pressure 89/63 96/71 101/70 O2 Sat by Pulse 93 93 98 Oximetry 03/14/22 03/14/22 03/14/22 03:45 03:50 04:00 Temperature 97.5 F L Pulse Rate 100 H 100 H Pulse Rate [ 101 H From Monitor] Respiratory 24 20 Rate Blood Pressure 99/70 99/67 O2 Sat by Pulse 93 93 Oximetry 03/14/22 03/14/22 03/14/22 04:15 04:31 04:45 Temperature Pulse Rate 101 H 102 H 100 H Pulse Rate [ From Monitor] Respiratory 20 23 22 Rate Blood Pressure 95/64 96/71 105/72 O2 Sat by Pulse 93 96 94 Oximetry 03/14/22 03/14/22 03/14/22 05:00 05:15 05:30 Temperature Pulse Rate 100 H 100 H 102 H Pulse Rate [ From Monitor] Respiratory 21 22 25 H Rate Blood Pressure 98/69 96/64 94/61 O2 Sat by Pulse 96 94 96 Oximetry 03/14/22 03/14/22 03/14/22 05:45 06:00 06:15 Temperature Pulse Rate 99 H 98 H 98 H Pulse Rate [ From Monitor] Respiratory 20 18 18 Rate Blood Pressure 89/65 94/61 90/62 O2 Sat by Pulse 97 98 98 Oximetry 03/14/22 03/14/22 07:15 08:00 Temperature 100.6 F H Pulse Rate 100 H Pulse Rate [ From Monitor] Respiratory Rate Blood Pressure 113/73 O2 Sat by Pulse 97 Oximetry Constitutional: asleep, other (mild resp distress, with some ventilator dys- synchrony) Eyes: non-icteric ENT: oropharynx moist, other (ETT 24 cm BLANCA) Effort: mildly labored Ascultation: Bilateral: rales Percussion: Bilateral: not dull Cardiovascular: regular rate and rhythm Gastrointestinal: normoactive bowel sounds, soft, non-tender, non-distended Integumentary: normal Extremities: no cyanosis, no edema, pulses normal, no ischemia or petechiae Neurologic: pupils equal and round, unable to assess, other (weak) Psychiatric: other (unable to assess re: AMS) CBC and BMP: 03/18/22 05:20 03/18/22 05:20 ABG, PT/INR, D-dimer: ABG ABG pH 7.374 pH Units (7.350-7.450) 03/13/22 20:15 ABG pCO2 38.6 mm Hg 03/13/22 20:15 ABG pO2 86.8 mm Hg (80.0-90.0) 03/13/22 20:15 ABG O2 Saturation 97.1 % (95.0-99.0) 03/13/22 20:15 PT/INR, D-dimer PT 14.9 Sec. (12.2-14.9) 03/10/22 01:25 INR 1.03 (0.87-1.13) 03/10/22 01:25 D-Dimer 787.78 ng/mlDDU (0-234) H 03/10/22 05:45 Abnormal lab findings: Abnormal Labs 03/10/22 03/10/22 03/10/22 01:19 01:25 01:25 WBC RBC Hgb Hct RDW 15.4 H Lymph % (Auto) 12.4 L Lymph # (Auto) 1.1 L Seg Neutrophils % 85.9 H Seg Neutrophils # D-Dimer ABG pH ABG pO2 59.3 L ABG HCO3 16.7 L ABG O2 Saturation 92.3 L ABG Base Excess -7.8 L ABG Hemoglobin 11.4 L Oxyhemoglobin 90.8 L Sodium 119 L* Potassium 3.1 L Chloride 88.1 L Carbon Dioxide 16 L BUN Creatinine 0.3 L Glucose 146 H POC Glucose Lactic Acid Uric Acid Calcium 8.2 L Phosphorus Magnesium 1.30 L Ferritin ALT 5 L Lactate Dehydrogenase Total Creatine Kinase CK-MB (CK-2) Troponin T NT-Pro-B Natriuret Pep Total Protein 5.4 L Albumin 3.6 L Prealbumin Cholesterol LDL Cholesterol Direct HDL Cholesterol Vitamin B12 Folate Urine WBC (Auto) 03/10/22 03/10/22 03/10/22 01:25 01:25 01:25 WBC RBC Hgb Hct RDW Lymph % (Auto) Lymph # (Auto) Seg Neutrophils % Seg Neutrophils # D-Dimer ABG pH ABG pO2 ABG HCO3 ABG O2 Saturation ABG Base Excess ABG Hemoglobin Oxyhemoglobin Sodium Potassium Chloride Carbon Dioxide BUN Creatinine Glucose POC Glucose Lactic Acid 3.60 H* Uric Acid Calcium Phosphorus Magnesium Ferritin ALT Lactate Dehydrogenase Total Creatine Kinase CK-MB (CK-2) 4.6 H Troponin T 0.164 H* NT-Pro-B Natriuret Pep 76317 H Total Protein Albumin Prealbumin Cholesterol 259 H LDL Cholesterol Direct 187 H HDL Cholesterol 63 H Vitamin B12 Folate Urine WBC (Auto) 03/10/22 03/10/22 03/10/22 02:43 05:45 05:45 WBC RBC Hgb Hct RDW Lymph % (Auto) Lymph # (Auto) Seg Neutrophils % Seg Neutrophils # D-Dimer 787.78 H ABG pH ABG pO2 ABG HCO3 ABG O2 Saturation ABG Base Excess ABG Hemoglobin Oxyhemoglobin Sodium Potassium Chloride Carbon Dioxide BUN Creatinine Glucose POC Glucose Lactic Acid 3.70 H* 3.10 H* Uric Acid Calcium Phosphorus Magnesium Ferritin ALT Lactate Dehydrogenase Total Creatine Kinase CK-MB (CK-2) Troponin T NT-Pro-B Natriuret Pep Total Protein Albumin Prealbumin Cholesterol LDL Cholesterol Direct HDL Cholesterol Vitamin B12 Folate Urine WBC (Auto) 03/10/22 03/10/22 03/10/22 05:45 05:45 12:24 WBC RBC Hgb Hct RDW Lymph % (Auto) Lymph # (Auto) Seg Neutrophils % Seg Neutrophils # D-Dimer ABG pH ABG pO2 ABG HCO3 ABG O2 Saturation ABG Base Excess ABG Hemoglobin Oxyhemoglobin Sodium 124 L Potassium 3.3 L Chloride Carbon Dioxide 11 L BUN Creatinine 0.2 L Glucose POC Glucose Lactic Acid Uric Acid Calcium 6.9 L D Phosphorus Magnesium Ferritin 219.2 H ALT Lactate Dehydrogenase 210 H Total Creatine Kinase CK-MB (CK-2) Troponin T NT-Pro-B Natriuret Pep Total Protein Albumin Prealbumin Cholesterol LDL Cholesterol Direct HDL Cholesterol Vitamin B12 Folate Urine WBC (Auto) 03/10/22 03/10/22 03/10/22 12:24 12:24 12:24 WBC RBC Hgb Hct RDW Lymph % (Auto) Lymph # (Auto) Seg Neutrophils % Seg Neutrophils # D-Dimer ABG pH ABG pO2 ABG HCO3 ABG O2 Saturation ABG Base Excess ABG Hemoglobin Oxyhemoglobin Sodium 128 L Potassium Chloride Carbon Dioxide BUN Creatinine Glucose POC Glucose Lactic Acid 2.70 H* Uric Acid Calcium Phosphorus Magnesium Ferritin ALT Lactate Dehydrogenase Total Creatine Kinase 901 H CK-MB (CK-2) 15.3 H Troponin T 0.032 H D NT-Pro-B Natriuret Pep Total Protein Albumin Prealbumin Cholesterol LDL Cholesterol Direct HDL Cholesterol Vitamin B12 Folate Urine WBC (Auto) 03/10/22 03/10/22 03/10/22 12:45 13:15 18:00 WBC RBC Hgb Hct RDW Lymph % (Auto) Lymph # (Auto) Seg Neutrophils % Seg Neutrophils # D-Dimer ABG pH 7.315 L ABG pO2 70.1 L ABG HCO3 15.6 L ABG O2 Saturation 93.8 L ABG Base Excess -9.5 L ABG Hemoglobin 11.0 L Oxyhemoglobin 92.4 L Sodium 129 L Potassium Chloride Carbon Dioxide 17 L BUN Creatinine 0.2 L Glucose POC Glucose Lactic Acid Uric Acid 1.6 L Calcium 7.0 L Phosphorus Magnesium Ferritin ALT Lactate Dehydrogenase Total Creatine Kinase CK-MB (CK-2) Troponin T NT-Pro-B Natriuret Pep Total Protein Albumin Prealbumin Cholesterol LDL Cholesterol Direct HDL Cholesterol Vitamin B12 Folate Urine WBC (Auto) 03/10/22 03/10/22 03/11/22 18:20 21:05 05:00 WBC 13.7 H RBC 3.44 L Hgb 9.6 L Hct 29.0 L D RDW Lymph % (Auto) 8.9 L Lymph # (Auto) Seg Neutrophils % 86.6 H Seg Neutrophils # 11.8 H D-Dimer ABG pH ABG pO2 116.3 H ABG HCO3 17.2 L ABG O2 Saturation ABG Base Excess -6.4 L ABG Hemoglobin 11.0 L Oxyhemoglobin Sodium Potassium Chloride Carbon Dioxide BUN Creatinine Glucose POC Glucose Lactic Acid Uric Acid Calcium Phosphorus Magnesium Ferritin ALT Lactate Dehydrogenase Total Creatine Kinase CK-MB (CK-2) Troponin T NT-Pro-B Natriuret Pep Total Protein Albumin Prealbumin Cholesterol LDL Cholesterol Direct HDL Cholesterol Vitamin B12 Folate Urine WBC (Auto) 105.0 H 03/11/22 03/11/22 03/12/22 05:00 Unknown 04:10 WBC RBC Hgb Hct RDW Lymph % (Auto) Lymph # (Auto) Seg Neutrophils % Seg Neutrophils # D-Dimer ABG pH 7.472 H 7.482 H ABG pO2 65.5 L ABG HCO3 19.8 L ABG O2 Saturation ABG Base Excess -2.9 L ABG Hemoglobin 10.1 L 8.4 L Oxyhemoglobin Sodium 132 L Potassium Chloride Carbon Dioxide 20 L BUN 6 L Creatinine 0.2 L Glucose POC Glucose Lactic Acid Uric Acid Calcium 7.5 L Phosphorus Magnesium Ferritin ALT Lactate Dehydrogenase Total Creatine Kinase CK-MB (CK-2) Troponin T NT-Pro-B Natriuret Pep Total Protein Albumin Prealbumin Cholesterol LDL Cholesterol Direct HDL Cholesterol Vitamin B12 Folate Urine WBC (Auto) 03/12/22 03/12/22 03/12/22 04:20 04:20 12:25 WBC 13.6 H RBC 3.11 L Hgb 8.7 L Hct 26.1 L RDW Lymph % (Auto) Lymph # (Auto) Seg Neutrophils % Seg Neutrophils # D-Dimer ABG pH ABG pO2 ABG HCO3 ABG O2 Saturation ABG Base Excess ABG Hemoglobin Oxyhemoglobin Sodium 128 L Potassium 3.2 L Chloride 93.9 L Carbon Dioxide BUN 4 L Creatinine 0.2 L Glucose 103 H POC Glucose 116 H Lactic Acid Uric Acid Calcium 7.4 L Phosphorus 1.10 L Magnesium 2.40 H Ferritin ALT Lactate Dehydrogenase Total Creatine Kinase CK-MB (CK-2) Troponin T NT-Pro-B Natriuret Pep Total Protein Albumin Prealbumin Cholesterol LDL Cholesterol Direct HDL Cholesterol Vitamin B12 Folate Urine WBC (Auto) 03/12/22 03/12/22 03/12/22 18:40 18:40 18:40 WBC RBC Hgb Hct RDW Lymph % (Auto) Lymph # (Auto) Seg Neutrophils % Seg Neutrophils # D-Dimer ABG pH ABG pO2 ABG HCO3 ABG O2 Saturation ABG Base Excess ABG Hemoglobin Oxyhemoglobin Sodium Potassium Chloride Carbon Dioxide BUN Creatinine Glucose POC Glucose Lactic Acid Uric Acid Calcium Phosphorus Magnesium Ferritin ALT Lactate Dehydrogenase Total Creatine Kinase CK-MB (CK-2) Troponin T NT-Pro-B Natriuret Pep Total Protein Albumin Prealbumin 0.044 L Cholesterol LDL Cholesterol Direct HDL Cholesterol Vitamin B12 1021 H Folate 2.15 L Urine WBC (Auto) 03/13/22 03/13/22 03/13/22 04:10 08:00 09:50 WBC 15.0 H RBC 2.82 L Hgb 8.0 L Hct 23.9 L RDW 15.5 H Lymph % (Auto) Lymph # (Auto) Seg Neutrophils % Seg Neutrophils # D-Dimer ABG pH ABG pO2 98.6 H ABG HCO3 ABG O2 Saturation ABG Base Excess ABG Hemoglobin 8.3 L Oxyhemoglobin Sodium 130 L Potassium Chloride 96.1 L Carbon Dioxide BUN Creatinine 0.4 L D Glucose 148 H POC Glucose Lactic Acid Uric Acid Calcium 7.3 L Phosphorus Magnesium Ferritin ALT Lactate Dehydrogenase Total Creatine Kinase CK-MB (CK-2) Troponin T NT-Pro-B Natriuret Pep Total Protein Albumin Prealbumin Cholesterol LDL Cholesterol Direct HDL Cholesterol Vitamin B12 Folate Urine WBC (Auto) 03/13/22 03/13/22 03/14/22 20:15 22:59 04:54 WBC 17.0 H RBC 2.79 L Hgb 7.8 L Hct 23.6 L RDW 15.6 H Lymph % (Auto) Lymph # (Auto) Seg Neutrophils % Seg Neutrophils # D-Dimer ABG pH ABG pO2 ABG HCO3 ABG O2 Saturation ABG Base Excess -2.9 L ABG Hemoglobin 8.0 L Oxyhemoglobin Sodium Potassium Chloride Carbon Dioxide BUN Creatinine Glucose POC Glucose 127 H Lactic Acid Uric Acid Calcium Phosphorus Magnesium Ferritin ALT Lactate Dehydrogenase Total Creatine Kinase CK-MB (CK-2) Troponin T NT-Pro-B Natriuret Pep Total Protein Albumin Prealbumin Cholesterol LDL Cholesterol Direct HDL Cholesterol Vitamin B12 Folate Urine WBC (Auto) 03/14/22 04:54 WBC RBC Hgb Hct RDW Lymph % (Auto) Lymph # (Auto) Seg Neutrophils % Seg Neutrophils # D-Dimer ABG pH ABG pO2 ABG HCO3 ABG O2 Saturation ABG Base Excess ABG Hemoglobin Oxyhemoglobin Sodium 129 L Potassium 3.5 L Chloride 97.1 L Carbon Dioxide BUN 24 H Creatinine 0.5 L Glucose 125 H POC Glucose Lactic Acid Uric Acid Calcium 7.0 L Phosphorus Magnesium Ferritin ALT Lactate Dehydrogenase Total Creatine Kinase CK-MB (CK-2) Troponin T NT-Pro-B Natriuret Pep Total Protein Albumin Prealbumin Cholesterol LDL Cholesterol Direct HDL Cholesterol Vitamin B12 Folate Urine WBC (Auto) Chest x-ray: image reviewed Allied health notes reviewed: RT
--- NOTE | 2022-03-14 11:16 | Progress Note ---
<FLAKITOJOSEPH MacDileep - Last Filed: 03/14/22 12:47> Assessment and Plan Assessment and plan: This is a 61-year-old female with MS and seizure disorder admitted with sepsis, hyponatremia, hypokalemia, elevated troponins and acute hypoxic respiratory failure Neuro: Acute metabolic encephalopathy, h/o Multiple Sclerosis, Seizure disorder -Neurology consulted, appreciate recommendations -Sedated with Fentanyl gtt -RASS goal 0 to -1 -Keppra -Reorientation as needed -Maintain sleep-wake cycle -Seizure precautions -As needed analgesia -CT head shows vascular angioplasty without clear evidence of acute intracranial hemorrhage -Neurology consulted, appreciate recommendations -MRI brain with and without contrast and MRI C-spine with and without contrast pending -EEG completed, awaiting read -UDS (+) for opiates -Prealbumin 0.044, vitamin B 12 1021, folate 2.15, syphilis nonreactive Cardiac: Hypotension, Elevated troponin -Cardiology consulted, appreciate recommendations -BNP 75124 -Blood pressure monitoring per protocol -Vasopressor support with Levophed gtt -MAP goal greater than 65 -Echocardiogram LVEF 50%, no pulmonary HTN Respiratory: ARDS, Acute hypoxic respiratory failure -CCM consulted, appreciate recommendations -Intubated on 03/10 with 7.5 OETT at 23 cm at the lips in the ED -A.m. vent settings: AC TV 400, Rate 16, PEEP 6, FiO2 @ 100% -See RT notes for titration -s/p lasix x 2 03/14 -A.m. ABG and CXR noted -VAP bundle -SPO2 monitoring GI: Moderate Protein Calorie Malnutrition, Transaminitis -24 hours + 2120 mL -PPI -NTR consulted for tube feedings -BR: Miralax, Senokot S -Trend LFTs : Severe hyponatremia, hypokalemia -Nephrology consulted, appreciate recommendations -Record intake and output -s/p Sodium Bicarb gtt -Renally dose medications -Avoid nephrotoxic medications -Replete Potassium -Trend BMP ID: Septic Shock, CAP, lactic acidosis (resolved) -Covid 19 PCR (-) -Infectious disease consulted, appreciate recommendation -Antibiotic therapy with cefepime -f/u blood culture -Monitor WBC and temperature curve Endo: NAD -Avoid hypoglycemia -SSI -Accu-Cheks q. 6hr Heme: Leukocytosis -Trend CBC -Transfuse hemoglobin less than 7 -SCDs to BLE while in bed The high probability of a clinically significant, sudden or life threatening deterioration of the [multiple] system(s) required my full and direct attention, intervention and personal management. The aggregate critical care time was [60] minutes. This time is in addition to time spent performing reported procedures but includes the following: [x] Data Review and interpretation [x] Patient assessment and monitoring of vital signs [x] Documentation [x] Medication orders and management History Interval history: This is a 61-year-old female with multiple sclerosis and seizure disorder who presented to emergency department on 03/10 via EMS for evaluation of shortness of breath and difficulty breathing. Upon arrival of EMS patient's SPO2 was in the 50s and she was hypotensive to 80s over 50s and was started on IV fluids in route and placed on CPAP. Upon arrival to the emergency department patient was placed on BiPAP and work-up in the emergency department included a CXR which showed multifocal pneumonia, lab work revealed hyponatremia, hypokalemia, lactic acidosis, metabolic acidosis and elevated troponins. Patient was started on empiric antibiotics and admitted to the hospital service with Sepsis, acute hypoxic respiratory failure, electrolyte imbalances and elevated troponins with consults to cardiology, pulmonology and nephrology. Hospital Course to Date: 03/10: S/p intubation this am due to tachypnea and worsen mental status. Current sedated and stable on the vent. Patient is now on low dose Levophed gtt due to hypotension. Presented with a Na level of 119, on continuous NS at 125ml, repeat BMP pending. Continue IVF hydration and serial Na Q6hrs. Nephrology is also following. Continue empiric IV Abx for CAP, COVID PCR pending, ID consult pending. D-Dimer also elevated, BLE doppler ordered, therapeutic Lovenox initiat ed. D/W CCM patient is too unstable for transport at this time, possible CTA chest in the am or once patient is more stable. Cardiology was also consulted for elevated troponin X2, EKG noted with no significant ST changes, 2D echo pending. Resume home AEDs, continue seizure precautions. Monitor and replace electrolytes as needed 03/11: Intubated and low dose fentanyl gtt. Open eyes spontaneously but does not track, not following commands. NA level 132 this am, Nabcarb gtt initiated per Nephro. CT head/brain w/o con ordered to r/o intracranial abnormality. Wean off sedation to better assess mental status. Remains on Levophed gtt, afebrile, but with leukocytosis this am. This am CXR and ABG noted, with significant improvement. D/w CCM, PE less likely will hold off on CTA chest for now. Lovenox switched to Qday. Continue empiric IV Abx, ID consult pending. 03/12: Discontinue bicarb gtt, replete phos and potassium, added miralax. Remain on levo and fent gtt 03/13: MRI brain/C-spine completed, EEG completed. Hyponatremia improved, patient remains on Levophed. Had a temperature of 101.3 remains on cefepime. Will defer to ID for abx. Will reculture on next temperature spike. 03/14: Overnight patient had hypoxia issues and FiO2 was increased to 100%, received lasix with repeat dose in AM. Hypotension and increase in levophed. Replete K. Hospitalist Physical - Constitutional Vitals: Temp Pulse Resp BP Pulse Ox 100.6 F H 100 H 18 113/73 97 03/14/22 07:15 03/14/22 08:00 03/14/22 06:15 03/14/22 08:00 03/14/22 08:00 General appearance: Present: no acute distress, other (sedated, intubated) - EENT Eyes: Present: PERRL, EOM intact ENT: dentition normal - Neck Neck: Present: supple, normal ROM - Respiratory Respiratory effort: normal Respiratory: bilateral: rhonchi - Cardiovascular Rhythm: regular Heart Sounds: Present: S1 & S2. Absent: systolic murmur, diastolic murmur - Extremities Extremities: no ischemia, pulses intact, pulses symmetrical, No edema, normal temperature, normal color, Full ROM Peripheral Pulses: within normal limits - Abdominal General gastrointestinal: soft, non-tender, non-distended, normal bowel sounds - Integumentary Integumentary: Present: warm, dry - Psychiatric Psychiatric: other - Neurologic Neurologic: other (He was equal round reactive, intact cough/gag, intermittently follows commands with upper extremities) - Allied Health Allied health notes reviewed: nursing, RT, social work HEART Score - HEART Score Troponin: Troponin T 0.032 ng/mL (0.00-0.029) H D 03/10/22 12:24 Results - Labs CBC & Chem 7: 03/14/22 04:54 03/14/22 04:54 Labs: Laboratory Last Values WBC 17.0 K/mm3 (4.5-11.0) H 03/14/22 04:54 RBC 2.79 M/mm3 (3.65-5.03) L 03/14/22 04:54 Hgb 7.8 gm/dl (10.1-14.3) L 03/14/22 04:54 Hct 23.6 % (30.3-42.9) L 03/14/22 04:54 MCV 85 fl (79-97) 03/14/22 04:54 MCH 28 pg (28-32) 03/14/22 04:54 MCHC 33 % (30-34) 03/14/22 04:54 RDW 15.6 % (13.2-15.2) H 03/14/22 04:54 Plt Count 193 K/mm3 (140-440) 03/14/22 04:54 Lymph % (Auto) 8.9 % (13.4-35.0) L 03/11/22 05:00 [place] % (Auto) 4.2 % (0.0-7.3) 03/11/22 05:00 Eos % (Auto) 0.1 % (0.0-4.3) 03/11/22 05:00 Baso % (Auto) 0.2 % (0.0-1.8) 03/11/22 05:00 Lymph # (Auto) 1.2 K/mm3 (1.2-5.4) 03/11/22 05:00 [place] # (Auto) 0.6 K/mm3 (0.0-0.8) 03/11/22 05:00 Eos # (Auto) 0.0 K/mm3 (0.0-0.4) 03/11/22 05:00 Baso # (Auto) 0.0 K/mm3 (0.0-0.1) 03/11/22 05:00 Seg Neutrophils % 86.6 % (40.0-70.0) H 03/11/22 05:00 Seg Neutrophils # 11.8 K/mm3 (1.8-7.7) H 03/11/22 05:00 PT 14.9 Sec. (12.2-14.9) 03/10/22 01:25 INR 1.03 (0.87-1.13) 03/10/22 01:25 D-Dimer 787.78 ng/mlDDU (0-234) H 03/10/22 05:45 ABG pH 7.374 pH Units (7.350-7.450) 03/13/22 20:15 ABG pCO2 38.6 mm Hg 03/13/22 20:15 ABG pO2 86.8 mm Hg (80.0-90.0) 03/13/22 20:15 ABG HCO3 22.0 mmol/L (20.0-26.0) 03/13/22 20:15 ABG O2 Saturation 97.1 % (95.0-99.0) 03/13/22 20:15 ABG O2 Content 10.9 (0.0-44) 03/13/22 20:15 ABG Base Excess -2.9 mmol/L (-2.0-3.0) L 03/13/22 20:15 ABG Hemoglobin 8.0 gm/dl (12.0-16.0) L 03/13/22 20:15 ABG Carboxyhemoglobin 1.7 % (0.0-5.0) 03/13/22 20:15 ABG Methemoglobin 0.3 % (0.0-1.5) 03/13/22 20:15 Oxyhemoglobin 95.0 % (95.0-99.0) 03/13/22 20:15 FiO2 100 % 03/13/22 20:15 Sodium 129 mmol/L (137-145) L 03/14/22 04:54 Potassium 3.5 mmol/L (3.6-5.0) L 03/14/22 04:54 Chloride 97.1 mmol/L (98-107) L 03/14/22 04:54 Carbon Dioxide 22 mmol/L (22-30) 03/14/22 04:54 Anion Gap 13 mmol/L 03/14/22 04:54 BUN 24 mg/dL (7-17) H 03/14/22 04:54 Creatinine 0.5 mg/dL (0.6-1.2) L 03/14/22 04:54 Estimated GFR > 60 ml/min 03/14/22 04:54 BUN/Creatinine Ratio 48 % 03/14/22 04:54 Glucose 125 mg/dL (65-100) H 03/14/22 04:54 POC Glucose 127 mg/dL (70-105) H 03/13/22 22:59 Osmolality 285 Mosm/kg 03/10/22 12:24 Lactic Acid 1.70 mmol/L (0.7-2.0) 03/11/22 05:00 Uric Acid 1.6 mg/dL (3.5-7.6) L 03/10/22 13:15 Calcium 7.0 mg/dL (8.4-10.2) L 03/14/22 04:54 Phosphorus 3.10 mg/dL (2.5-4.5) D 03/13/22 04:10 Magnesium 2.30 mg/dL (1.7-2.3) 03/13/22 04:10 Ferritin 219.2 ng/mL (10.0-200.0) H 03/10/22 05:45 Total Bilirubin 0.50 mg/dL (0.1-1.2) 03/10/22 01:25 AST 16 units/L (5-40) 03/10/22 01:25 ALT 5 units/L (7-56) L 03/10/22 01:25 Alkaline Phosphatase 61 units/L (35-129) 03/10/22 01:25 Lactate Dehydrogenase 210 units/L (91-180) H 03/10/22 05:45 Total Creatine Kinase 901 units/L (30-135) H 03/10/22 12:24 CK-MB (CK-2) 15.3 ng/mL (0.0-4.0) H 03/10/22 12:24 CK-MB (CK-2) Rel Index 1.6 (0-4) 03/10/22 12:24 Troponin T 0.032 ng/mL (0.00-0.029) H D 03/10/22 12:24 C-Reactive Protein < 0.03 mg/dL (0.00-1.30) 03/10/22 05:45 NT-Pro-B Natriuret Pep 87457 pg/mL (0-900) H 03/10/22 01:25 Total Protein 5.4 g/dL (6.3-8.2) L 03/10/22 01:25 Albumin 3.6 g/dL (3.9-5) L 03/10/22 01:25 Albumin/Globulin Ratio 2.0 % 03/10/22 01:25 Prealbumin 0.044 g/L (0.200-0.400) L 03/12/22 18:40 Triglycerides 47 mg/dL (2-149) 03/10/22 01:25 Cholesterol 259 mg/dL (50-199) H 03/10/22 01:25 LDL Cholesterol Direct 187 mg/dL (50-130) H 03/10/22 01:25 HDL Cholesterol 63 mg/dL (40-59) H 03/10/22 01:25 Cholesterol/HDL Ratio 4.11 % 03/10/22 01:25 Lipase 15 units/L (13-60) 03/10/22 01:25 Vitamin B12 1021 pg/mL (211-911) H 03/12/22 18:40 Folate 2.15 ng/mL (7.3-26.0) L 03/12/22 18:40 Procalcitonin 3.92 ng/mL (<0.15) 03/10/22 05:45 TSH 1.290 mlU/mL (0.270-4.200) 03/12/22 18:40 Urine Color Yellow (Yellow) 03/10/22 18:20 Urine Turbidity Clear (Clear) 03/10/22 18:20 Urine pH 6.0 (5.0-7.0) 03/10/22 18:20 Ur Specific Sinclair 1.010 (1.003-1.030) 03/10/22 18:20 Urine Protein <15 mg/dl mg/dL (Negative) 03/10/22 18:20 Urine Glucose (UA) Neg mg/dL (Negative) 03/10/22 18:20 Urine Ketones Tr mg/dL (Negative) 03/10/22 18:20 Urine Blood Sm (Negative) 03/10/22 18:20 Urine Nitrite Neg (Negative) 03/10/22 18:20 Urine Bilirubin Neg (Negative) 03/10/22 18:20 Urine Urobilinogen < 2.0 mg/dL (<2.0) 03/10/22 18:20 Ur Leukocyte Esterase Lg (Negative) 03/10/22 18:20 Urine WBC (Auto) 105.0 /HPF (0.0-6.0) H 03/10/22 18:20 Urine RBC (Auto) 2.0 /HPF (0.0-6.0) 03/10/22 18:20 U Epithel Cells (Auto) < 1.0 /HPF (0-13.0) 03/10/22 18:20 Urine Bacteria (Auto) 1+ /HPF (Negative) 03/10/22 18:20 Urine Osmolality 368 Mosm/kg 03/10/22 18:20 Urine Sodium 64 mmol/L 03/10/22 18:20 Urine Opiates Screen Presumptive positive 03/10/22 18:20 Urine Methadone Screen Presumptive negative 03/10/22 18:20 Ur Barbiturates Screen Presumptive negative 03/10/22 18:20 Ur Phencyclidine Scrn Presumptive negative 03/10/22 18:20 Ur Amphetamines Screen Presumptive negative 03/10/22 18:20 U Benzodiazepines Scrn Presumptive negative 03/10/22 18:20 Urine Cocaine Screen Presumptive negative 03/10/22 18:20 U Marijuana (THC) Screen Presumptive negative 03/10/22 18:20 Drugs of Abuse Note Disclamer 03/10/22 18:20 Syphilis IgG/IgM Ab Nonreactive (NonReactive) 03/12/22 18:40 SARS-CoV-2 (PCR) Negative (Negative) 03/10/22 09:50 Microbiology: Microbiology 03/10/22 01:25 Peripheral/Venous Blood Culture - Preliminary NO GROWTH AFTER 4 DAYS 03/10/22 01:59 Peripheral/Venous Blood Culture - Preliminary NO GROWTH AFTER 4 DAYS [place]/IV: Voiding Method External Female Catheter Active Medications - Current Medications Current Medications: Generic Name Dose Route Start Last Admin Trade Name Freq PRN Reason Stop Dose Admin Acetaminophen 650 mg 03/13/22 05:50 03/13/22 06:10 Acetaminophen 325 Mg/10.15 Ml Oral Liqd Unit Dose FEEDTUBE 650 mg Q6H PRN Administration Non Cardiac Pain or Temp>100.5 Enoxaparin Sodium 40 mg 03/12/22 10:00 03/14/22 09:30 Enoxaparin 40 Mg/0.4 Ml Inj SUB-Q 40 mg QDAY@1000 SHAHBAZ Administration Protocol Famotidine 20 mg 03/12/22 10:00 03/14/22 09:30 Famotidine 20 Mg Tab FEEDTUBE 20 mg BID SHAHBAZ Administration Fentanyl 50 mcg 03/10/22 10:58 Fentanyl 100 Mcg/2 Ml Inj IV Q10MIN PRN ANALGESIA Hydrophilic Ointment 1 applic 03/10/22 11:03 Lip Therapy Vaseline TP Q2HR PRN Dry Lips Fentanyl Citrate 2,000 mcg in 100 mls @ 4.16 mls/hr 03/10/22 11:00 03/14/22 05:04 Fentanyl Drip Premix IV 2 mcg/kg/hr TITR SHAHBAZ 8.32 mls/hr Administration Protocol 1 MCG/KG/HR NORepinephrine/NS 8 MG-250 ML 8 mg in 250 mls @ 3.75 mls/hr 03/10/22 11:00 03/14/22 05:05 Norepinephrine/Ns 8 Mg-250 Ml (Double Conc) IV 6 mcg/min TITRATE SHAHBAZ 11.25 mls/hr Titration Protocol 2 MCG/MIN Cefepime HCl 2 gm in 100 mls @ 200 mls/hr 03/12/22 20:00 03/14/22 03:38 Cefepime/Ns 2 Gm/100 Ml IV 200 mls/hr Q8H SHAHBAZ Administration Protocol Potassium Chloride 10 meq in 100 mls @ 100 mls/hr 03/14/22 09:00 03/14/22 10:30 Kcl 10meq/100ml IV 03/14/22 12:59 100 mls/hr Q1H SHAHBAZ Administration Levetiracetam 500 mg 03/12/22 10:00 03/14/22 09:29 Levetiracetam 500 Mg/5 Ml Oral Liqd FEEDTUBE 500 mg BID SHAHBAZ Administration Magnesium Hydroxide 30 ml 03/10/22 02:56 Magnesium Hydroxide (Mom) Oral Liqd Udc PO Q4H PRN Constipation Multi-Ingred Cream/Lotion/Oil/Oint 1 applic 03/10/22 11:03 Mineral Oil/Petrolatum, White Ophth Oint 3.5 Gm OU Q4HR PRN Dry Eye(s) Ondansetron HCl 4 mg 03/10/22 02:56 Ondansetron 4 Mg/2 Ml Inj IV Q8H PRN Nausea And Vomiting Polyethylene Glycol 17 gm 03/12/22 10:00 03/14/22 09:29 Polyethylene Glycol 3350 17 Gm Powder FEEDTUBE 17 gm QDAY SHAHBAZ Administration Senna/Docusate Sodium 2 tab 03/14/22 10:00 03/14/22 09:30 Sennosides/Docusate Sodium 8.6/50 Mg Tab FEEDTUBE 2 tab Q12H SHAHBAZ Administration Sodium Chloride 10 ml 03/10/22 10:00 03/14/22 09:39 Sodium Chloride 0.9% 10 Ml Flush Syringe IV 10 ml BID SHAHBAZ Administration Sodium Chloride 10 ml 03/10/22 02:56 Sodium Chloride 0.9% 10 Ml Flush Syringe IV PRN PRN LINE FLUSH Nutrition/Malnutrition Assess - Dietary Evaluation Nutrition/Malnutrition Findings: Nutrition Notes Start: 03/10/22 12:22 Freq: Status: Active Protocol: Document 03/12/22 14:57 KAMILA (Rec: 03/12/22 15:06 KAMILA [id number]) Nutrition Notes Initial or Follow up Reassessment Current Diagnosis Sepsis,Respiratory Failure Other Pertinent Diagnosis Pneu, Hypotension, Acute metabolic encephalopathy Current Diet TF - Vital AF 1.2 at 60ml/hr Labs/Tests Na 128 K 3.2 Ca 7.4 (adjusted 7.72) Phos 1.1 Mg 2.4 Pertinent Medications Levophed gtt, Miralax, Senokot , 40mEq KCl, 45mmol KPhos x 1 dose Height 5 ft 6 in Weight 83.2 kg [place] Body Weight (kg) 59.09 BMI 29.6 Weight Status Overweight Subjective/Other Information Pt intubated on 03/10. Observed Vital AF 1.2 infusing at 40ml/hr. Pt tolerating TF . Percent of energy/protein needs met: 67% energy 72% pro Burn Absent Trauma Absent #1 Nutrition Diagnosis Inadequate oral intake As Evidenced by Signs and Symptoms pt remains on vent support and NPO Diagnosis Progress(for reassessment Continues documentation) Is patient on ventilator? Yes Is Patient Ambulatory and/or Out of Bed No REE-([facility]-confined to bed) 1713.168 Calculation Used for Recommendations [facility] Additional Notes Pro needs 1.2-2g/k-166g/ day Fluid needs 1ml/kcal Nutrition Intervention Nutrition Support: Continue Vital AF 1.2 to goal rate of 60ml/hr with 100ml water flush q4h. Kcal 1,728 Protein (gm) 108 Carbohydrates (gm) 159 Fat (gm) 78 Fluid (mL) 1,168 Fiber (gm) 7 Goal #1 TF tolerance Goal #2 TF to meet at least 75% energy and pro needs Follow-Up By: 03/14/22 Additional Comments F/U: TF goal rate/tolerance, vent status, BM, pressor support <IRWIN MENENDEZ - Last Filed: 03/22/22 12:21> History Interval history: I saw and evaluated the patient. Discussed with the nurse practitioner and agree with their findings and plan as documented in this note. Hospitalist Physical - Constitutional Vitals: Temp Pulse Resp BP Pulse Ox 99.3 F 88 28 H 93/62 100 03/22/22 06:57 03/22/22 11:00 03/22/22 11:00 03/22/22 11:00 03/22/22 11:00 HEART Score - HEART Score Troponin: Troponin T 0.032 ng/mL (0.00-0.029) H D 03/10/22 12:24 Results - Labs CBC & Chem 7: 03/22/22 04:10 03/22/22 04:10 Labs: Laboratory Last Values WBC 32.9 K/mm3 (4.5-11.0) H 03/22/22 04:10 RBC 2.60 M/mm3 (3.65-5.03) L 03/22/22 04:10 Hgb 7.4 gm/dl (10.1-14.3) L 03/22/22 04:10 Hct 22.3 % (30.3-42.9) L 03/22/22 04:10 MCV 86 fl (79-97) 03/22/22 04:10 MCH 29 pg (28-32) 03/22/22 04:10 MCHC 33 % (30-34) 03/22/22 04:10 RDW 16.8 % (13.2-15.2) H 03/22/22 04:10 Plt Count 517 K/mm3 (140-440) H 03/22/22 04:10 Lymph % (Auto) 8.9 % (13.4-35.0) L 03/11/22 05:00 [place] % (Auto) 4.2 % (0.0-7.3) 03/11/22 05:00 Eos % (Auto) 0.1 % (0.0-4.3) 03/11/22 05:00 Baso % (Auto) 0.2 % (0.0-1.8) 03/11/22 05:00 Lymph # (Auto) 1.2 K/mm3 (1.2-5.4) 03/11/22 05:00 [place] # (Auto) 0.6 K/mm3 (0.0-0.8) 03/11/22 05:00 Eos # (Auto) 0.0 K/mm3 (0.0-0.4) 03/11/22 05:00 Baso # (Auto) 0.0 K/mm3 (0.0-0.1) 03/11/22 05:00 Add Manual Diff Complete 03/21/22 04:40 Total Counted 100 03/21/22 04:40 Seg Neutrophils % 86.6 % (40.0-70.0) H 03/11/22 05:00 Seg Neuts % (Manual) 71.0 % (40.0-70.0) H 03/21/22 04:40 Band Neutrophils % 12.0 % 03/21/22 04:40 Lymphocytes % (Manual) 2.0 % (13.4-35.0) L 03/21/22 04:40 Reactive Lymphs % (Man) 0 % 03/21/22 04:40 Monocytes % (Manual) 7.0 % (0.0-7.3) 03/21/22 04:40 Eosinophils % (Manual) 3.0 % (0.0-4.3) 03/21/22 04:40 Basophils % (Manual) 0 % (0.0-1.8) 03/21/22 04:40 Metamyelocytes % 3.0 % 03/21/22 04:40 Myelocytes % 0 % 03/21/22 04:40 Promyelocytes % 2.0 % 03/21/22 04:40 Blast Cells % 0 % 03/21/22 04:40 Nucleated RBC % 1.0 % (0.0-0.9) H 03/21/22 04:40 Seg Neutrophils # 11.8 K/mm3 (1.8-7.7) H 03/11/22 05:00 Seg Neutrophils # Man 18.2 K/mm3 (1.8-7.7) H 03/21/22 04:40 Band Neutrophils # 3.1 K/mm3 03/21/22 04:40 Lymphocytes # (Manual) 0.5 K/mm3 (1.2-5.4) L 03/21/22 04:40 Abs React Lymphs (Man) 0.0 K/mm3 03/21/22 04:40 Monocytes # (Manual) 1.8 K/mm3 (0.0-0.8) H 03/21/22 04:40 Eosinophils # (Manual) 0.8 K/mm3 (0.0-0.4) H 03/21/22 04:40 Basophils # (Manual) 0.0 K/mm3 (0.0-0.1) 03/21/22 04:40 Metamyelocytes # 0.8 K/mm3 03/21/22 04:40 Myelocytes # 0.0 K/mm3 03/21/22 04:40 Promyelocytes # 0.5 K/mm3 03/21/22 04:40 Blast Cells # 0.0 K/mm3 03/21/22 04:40 WBC Morphology Not Reportable 03/21/22 04:40 Hypersegmented Neuts Not Reportable 03/21/22 04:40 Hyposegmented Neuts Not Reportable 03/21/22 04:40 Hypogranular Neuts Not Reportable 03/21/22 04:40 Smudge Cells Not Reportable 03/21/22 04:40 Toxic Granulation Not Reportable 03/21/22 04:40 Toxic Vacuolation Not Reportable 03/21/22 04:40 Dohle Bodies Not Reportable 03/21/22 04:40 Pelger-Huet Anomaly Not Reportable 03/21/22 04:40 Luis Rods Not Reportable 03/21/22 04:40 Platelet Estimate Consistent w auto 03/21/22 04:40 Clumped Platelets Not Reportable 03/21/22 04:40 Plt Clumps, EDTA Not Reportable 03/21/22 04:40 Large Platelets Few 03/21/22 04:40 Giant Platelets Not Reportable 03/21/22 04:40 Platelet Satelliting Not Reportable 03/21/22 04:40 Plt Morphology Comment Not Reportable 03/21/22 04:40 RBC Morphology Not Reportable 03/21/22 04:40 Dimorphic RBCs Not Reportable 03/21/22 04:40 Polychromasia Not Reportable 03/21/22 04:40 Hypochromasia 3+ 03/21/22 04:40 Poikilocytosis Not Reportable 03/21/22 04:40 Anisocytosis 1+ 03/21/22 04:40 Microcytosis 1+ 03/21/22 04:40 Macrocytosis Not Reportable 03/21/22 04:40 Spherocytes Not Reportable 03/21/22 04:40 Pappenheimer Bodies Not Reportable 03/21/22 04:40 Sickle Cells Not Reportable 03/21/22 04:40 Target Cells Rare 03/21/22 04:40 Tear Drop Cells Few 03/21/22 04:40 Ovalocytes 1+ 03/21/22 04:40 Helmet Cells Not Reportable 03/21/22 04:40 [place] Bodies Not Reportable 03/21/22 04:40 Louisa Rings Not Reportable 03/21/22 04:40 V[place] Cells Not Reportable 03/21/22 04:40 Bite Cells Not Reportable 03/21/22 04:40 Crenated Cell Not Reportable 03/21/22 04:40 Elliptocytes Few 03/21/22 04:40 Acanthocytes (Spur) Not Reportable 03/21/22 04:40 Rouleaux Not Reportable 03/21/22 04:40 Hemoglobin C Crystals Not Reportable 03/21/22 04:40 Schistocytes Few 03/21/22 04:40 Malaria parasites Not Reportable 03/21/22 04:40 Tani Bodies Not Reportable 03/21/22 04:40 Hem Pathologist Commnt No 03/21/22 04:40 PT 17.2 Sec. (12.2-14.9) H 03/22/22 09:30 INR 1.25 (0.87-1.13) H 03/22/22 09:30 APTT 33.4 Sec. (24.2-36.6) 03/22/22 09:30 D-Dimer 787.78 ng/mlDDU (0-234) H 03/10/22 05:45 ABG pH 7.355 pH Units (7.350-7.450) 03/22/22 09:00 ABG pCO2 36.5 mm Hg 03/22/22 09:00 ABG pO2 82.0 mm Hg (80.0-90.0) 03/22/22 09:00 ABG HCO3 19.9 mmol/L (20.0-26.0) L 03/22/22 09:00 ABG O2 Saturation 96.8 % (95.0-99.0) 03/22/22 09:00 ABG O2 Content 20.1 (0.0-44) 03/22/22 09:00 ABG Base Excess -4.9 mmol/L (-2.0-3.0) L 03/22/22 09:00 ABG Hemoglobin 7.5 gm/dl (12.0-16.0) L 03/22/22 09:00 ABG Carboxyhemoglobin 1.7 % (0.0-5.0) 03/22/22 09:00 ABG Methemoglobin TNR 03/22/22 09:00 Oxyhemoglobin 95.2 % (95.0-99.0) 03/22/22 09:00 FiO2 80 % 03/22/22 09:00 Sodium 137 mmol/L (137-145) 03/22/22 04:10 Potassium 5.4 mmol/L (3.6-5.0) H 03/22/22 04:10 Chloride 97.2 mmol/L (98-107) L 03/22/22 04:10 Carbon Dioxide 21 mmol/L (22-30) L 03/22/22 04:10 Anion Gap 24 mmol/L 03/22/22 04:10 BUN 116 mg/dL (7-17) H 03/22/22 04:10 Creatinine 1.6 mg/dL (0.6-1.2) H 03/22/22 04:10 Estimated GFR 33 ml/min 03/22/22 04:10 BUN/Creatinine Ratio 73 % 03/22/22 04:10 Glucose 142 mg/dL (65-100) H 03/22/22 04:10 POC Glucose 95 mg/dL (70-105) 03/21/22 11:58 Osmolality 285 Mosm/kg 03/10/22 12:24 Lactic Acid 0.90 mmol/L (0.7-2.0) 03/18/22 05:20 Uric Acid 1.6 mg/dL (3.5-7.6) L 03/10/22 13:15 Calcium 8.5 mg/dL (8.4-10.2) 03/22/22 04:10 Phosphorus 3.70 mg/dL (2.5-4.5) 03/18/22 05:20 Magnesium 2.00 mg/dL (1.7-2.3) 03/18/22 05:20 Ferritin 219.2 ng/mL (10.0-200.0) H 03/10/22 05:45 Total Bilirubin 0.30 mg/dL (0.1-1.2) 03/18/22 05:20 AST 39 units/L (5-40) 03/18/22 05:20 ALT 14 units/L (7-56) 03/18/22 05:20 Alkaline Phosphatase 119 units/L (35-129) 03/18/22 05:20 Lactate Dehydrogenase 210 units/L (91-180) H 03/10/22 05:45 Total Creatine Kinase 901 units/L (30-135) H 03/10/22 12:24 CK-MB (CK-2) 15.3 ng/mL (0.0-4.0) H 03/10/22 12:24 CK-MB (CK-2) Rel Index 1.6 (0-4) 03/10/22 12:24 Troponin T 0.032 ng/mL (0.00-0.029) H D 03/10/22 12:24 C-Reactive Protein < 0.03 mg/dL (0.00-1.30) 03/10/22 05:45 NT-Pro-B Natriuret Pep 24975 pg/mL (0-900) H 03/10/22 01:25 Total Protein 5.4 g/dL (6.3-8.2) L 03/18/22 05:20 Albumin 2.0 g/dL (3.9-5) L 03/18/22 05:20 Albumin/Globulin Ratio 0.6 % 03/18/22 05:20 Prealbumin 0.044 g/L (0.200-0.400) L 03/12/22 18:40 Triglycerides 47 mg/dL (2-149) 03/10/22 01:25 Cholesterol 259 mg/dL (50-199) H 03/10/22 01:25 LDL Cholesterol Direct 187 mg/dL (50-130) H 03/10/22 01:25 HDL Cholesterol 63 mg/dL (40-59) H 03/10/22 01:25 Cholesterol/HDL Ratio 4.11 % 03/10/22 01:25 Lipase 15 units/L (13-60) 03/10/22 01:25 Vitamin B1 28 nmol/L (8-30) 03/13/22 08:00 Vitamin B12 1021 pg/mL (211-911) H 03/12/22 18:40 Folate 2.15 ng/mL (7.3-26.0) L 03/12/22 18:40 Procalcitonin 3.92 ng/mL (<0.15) 03/10/22 05:45 TSH 1.290 mlU/mL (0.270-4.200) 03/12/22 18:40 Urine Color Yellow (Yellow) 03/10/22 18:20 Urine Turbidity Clear (Clear) 03/10/22 18:20 Urine pH 6.0 (5.0-7.0) 03/10/22 18:20 Ur Specific Sinclair 1.010 (1.003-1.030) 03/10/22 18:20 Urine Protein <15 mg/dl mg/dL (Negative) 03/10/22 18:20 Urine Glucose (UA) Neg mg/dL (Negative) 03/10/22 18:20 Urine Ketones Tr mg/dL (Negative) 03/10/22 18:20 Urine Blood Sm (Negative) 03/10/22 18:20 Urine Nitrite Neg (Negative) 03/10/22 18:20 Urine Bilirubin Neg (Negative) 03/10/22 18:20 Urine Urobilinogen < 2.0 mg/dL (<2.0) 03/10/22 18:20 Ur Leukocyte Esterase Lg (Negative) 03/10/22 18:20 Urine WBC (Auto) 105.0 /HPF (0.0-6.0) H 03/10/22 18:20 Urine RBC (Auto) 2.0 /HPF (0.0-6.0) 03/10/22 18:20 U Epithel Cells (Auto) < 1.0 /HPF (0-13.0) 03/10/22 18:20 Urine Bacteria (Auto) 1+ /HPF (Negative) 03/10/22 18:20 Urine Osmolality 368 Mosm/kg 03/10/22 18:20 Urine Creatinine 34.4 mg/dL (0.1-20.0) H 03/19/22 14:40 Urine Sodium 18 mmol/L 03/19/22 14:40 Urine Opiates Screen Presumptive positive 03/10/22 18:20 Urine Methadone Screen Presumptive negative 03/10/22 18:20 Ur Barbiturates Screen Presumptive negative 03/10/22 18:20 Ur Phencyclidine Scrn Presumptive negative 03/10/22 18:20 Ur Amphetamines Screen Presumptive negative 03/10/22 18:20 U Benzodiazepines Scrn Presumptive negative 03/10/22 18:20 Urine Cocaine Screen Presumptive negative 03/10/22 18:20 U Marijuana (THC) Screen Presumptive negative 03/10/22 18:20 Drugs of Abuse Note Disclamer 03/10/22 18:20 Copper 118 mcg/dL (70-175) 03/12/22 18:40 Syphilis IgG/IgM Ab Nonreactive (NonReactive) 03/12/22 18:40 SARS-CoV-2 (PCR) Negative (Negative) 03/10/22 09:50 Blood Type O POSITIVE 03/15/22 09:42 Antibody Screen Negative 03/15/22 09:42 Crossmatch See Detail 03/15/22 09:42 Microbiology: Microbiology 03/18/22 Unknown Urine,Catheterized - Indwelling Catheter Urine Culture - Final NO GROWTH AFTER 48 HOURS 03/18/22 15:12 Peripheral/Venous Blood Culture - Preliminary NO GROWTH AFTER 72 HOURS 03/18/22 15:12 Peripheral/Venous Blood Culture - Preliminary NO GROWTH AFTER 72 HOURS [place]/IV: Voiding Method Indwelling Catheter Active Medications - Current Medications Current Medications: Generic Name Dose Route Start Last Admin Trade Name Freq PRN Reason Stop Dose Admin Acetaminophen 650 mg 03/13/22 05:50 03/19/22 18:38 Acetaminophen 325 Mg/10.15 Ml Oral Liqd Unit Dose FEEDTUBE 650 mg Q6H PRN Administration Non Cardiac Pain or Temp>100.5 Bisacodyl 10 mg 03/15/22 10:00 Bisacodyl 5 Mg Tab PO QDAY PRN Constipation Famotidine 10 mg 03/22/22 10:00 03/22/22 09:15 Famotidine 10 Mg Tab FEEDTUBE 10 mg BID SHAHBAZ Administration Fentanyl 50 mcg 03/10/22 10:58 03/14/22 20:48 Fentanyl 100 Mcg/2 Ml Inj IV 50 mcg Q10MIN PRN Administration ANALGESIA Hydrophilic Ointment 1 applic 03/10/22 11:03 Lip Therapy Vaseline TP Q2HR PRN Dry Lips Fentanyl Citrate 2,000 mcg in 100 mls @ 4.16 mls/hr 03/10/22 11:00 03/22/22 09:18 Fentanyl Drip Premix IV 4 mcg/kg/hr TITR SHAHBAZ 16.64 mls/hr Administration Protocol 1 MCG/KG/HR NORepinephrine/NS 8 MG-250 ML 8 mg in 250 mls @ 3.75 mls/hr 03/10/22 11:00 03/21/22 21:35 Norepinephrine/Ns 8 Mg-250 Ml (Double Conc) IV 10 mcg/min TITRATE SHAHBAZ 18.75 mls/hr Administration Protocol 2 MCG/MIN Vasopressin 20 unit/ Sodium 101 mls @ 9.09 mls/hr 03/21/22 15:00 03/22/22 00:03 Chloride IV 0.03 units/min TITR SHAHBAZ 9.09 mls/hr Administration Protocol 0.03 UNITS/MIN Levofloxacin/Dextrose 750 mg in 150 mls @ 100 mls/hr 03/23/22 12:00 Levaquin 750mg/150ml IV 03/27/22 13:29 Q48H SHAHBAZ Protocol Heparin Sodium/Sodium Chloride 25,000 unit in 500 mls @ 24 mls/hr 03/22/22 09:00 03/22/22 09:16 Heparin/ 0.45% Nacl-25,000 Unit/500 Ml IV 1,200 units/hr TITR SHAHBAZ 24 mls/hr Administration Protocol 1,200 UNITS/HR Metronidazole 500 mg in 100 mls @ 100 mls/hr 03/22/22 09:00 03/22/22 09:16 Flagyl 500 Mg/100 Ml IV 100 mls/hr Q8H SHAHBAZ Administration Protocol Levetiracetam 500 mg 03/12/22 10:00 03/22/22 09:15 Levetiracetam 500 Mg/5 Ml Oral Liqd FEEDTUBE 500 mg BID SHAHBAZ Administration Magnesium Hydroxide 30 ml 03/10/22 02:56 Magnesium Hydroxide (Mom) Oral Liqd Udc PO Q4H PRN Constipation Midodrine 15 mg 03/21/22 16:00 03/22/22 11:47 Midodrine 5 Mg Tab PO 15 mg TID@0800,1200,1600 SHAHBAZ Administration Multi-Ingred Cream/Lotion/Oil/Oint 1 applic 03/10/22 11:03 Mineral Oil/Petrolatum, White Ophth Oint 3.5 Gm OU Q4HR PRN Dry Eye(s) Ondansetron HCl 4 mg 03/10/22 02:56 Ondansetron 4 Mg/2 Ml Inj IV Q8H PRN Nausea And Vomiting Scopolamine 1 each 03/21/22 10:00 03/21/22 10:28 Scopolamine Transdermal Patch 72 Hr TD 1 each Q3D SHAHBAZ Administration Sodium Chloride 10 ml 03/10/22 10:00 03/22/22 11:15 Sodium Chloride 0.9% 10 Ml Flush Syringe IV 10 ml BID SHAHBAZ Administration Sodium Chloride 10 ml 03/10/22 02:56 Sodium Chloride 0.9% 10 Ml Flush Syringe IV PRN PRN LINE FLUSH Vancomycin HCl 500 mg 03/22/22 12:00 03/22/22 11:47 Vancomycin 250 Mg/10 Ml Oral Liqd PO 500 mg Q6HR SHAHBAZ Administration Protocol Nutrition/Malnutrition Assess - Dietary Evaluation Nutrition/Malnutrition Findings: Nutrition Notes Start: 03/10/22 12:22 Freq: Status: Active Protocol: Document 03/21/22 15:08 JOSH (Rec: 03/21/22 15:18 JOSH [id number]) Nutrition Notes Initial or Follow up Reassessment Current Diagnosis Hypertension,Respiratory Failure,Malnutrition Other Pertinent Diagnosis MS, CAP, Seizure, Metabolic Encephalopathy, Septic Shock, NSTEMI, UTI ... Current Diet TF-Vital AF 1.2 En @ 60 ml/hr (since D 03/10). Labs/Tests 03/21: Na 135, K 5.7, Cl 97.4, CO2 21, BUN 104, Crea 1.3, Glu 118. Pertinent Medications 03/21: Vasopressin 20U, others nutritionally unremarkable. Height 5 ft 6 in Weight 83.2 kg [place] Body Weight (kg) 59.09 BMI 29.6 Weight change and time frame No body weight change reported in 11 days. Weight Status Overweight Subjective/Other Information RD consult for routine F/U on TF tolerance/continuation. TF continues as prescribed, and well tolerated, according to RN notes. Pt remains on Mechanical Ventilation, O2 saturation @ 96%, according to Physical Assessment History notes. Pt presents bilateral-LE pitting edema 3+, according to Physical Assessment History notes. Pt presents an unspecified area of concern for skin risk at the time, according to Physical Assessment History notes. Percent of energy/protein needs met: Prescribed TF-Vital AF 1.2 En @ 60 ml/hr provides for energy/protein needs (1,728 Kcal/108 g) during LOS, 100% Kcal; 100% AA. Burn Absent Trauma Absent GI Symptoms None Food Allergy No Skin Integrity/Comment Unspecified area of concern. Current % PO Other Minimum of two criteria No Fluid Accumulation Moderate to Severe (severe) Reduced Pathology Supervisor Strength N/A (non-severe) Protein-Calorie Malnutrition N\A #1 Nutrition Diagnosis Inadequate oral intake Diagnosis Progress(for reassessment Continues documentation) Is patient on ventilator? Yes Is Patient Ambulatory and/or Out of Bed No REE-([place]-confined to bed) 1713.168 Calculation Used for Recommendations [facility] Additional Notes Protein: 1-1.2 g/Kg ABW; 100- 166 g/day. Fluids: 1 ml/Kcal, or as per MD. Nutrition Intervention Nutrition Support: Continue TF-Vital AF 1.2 En @ 60 ml/hr. Flush: 100 ml water Q 4 hr, or as per MD. Kcal 1,728 Protein (gm) 108 Carbohydrates (gm) 159 Fat (gm) 78 Fluid (mL) 1,168 Fiber (gm) 7 % RDI: 100% Kcal; 100% AA. Goal #1 Provide at least 75% of energy /protein needs through Enteral Feeding during LOS. Follow-Up By: 03/28/22 Additional Comments Continue monitoring TF tolerance, Ventilation Status, Pressor support, and BM.
--- NOTE | 2022-03-14 14:07 | Progress Note ---
Assessment and Plan - Patient Problems (1) Respiratory failure Current Visit: Yes Status: Acute Plan to address problem: Patient has a history of multiple sclerosis, no reported cardiac history, presented to the hospital with respiratory insufficiency and currently on the vent in the ICU. Chest x-ray showed confluent consolidations in both lung fraire consistent with a severe bilateral pneumonia. A COVID-19 test was positive. Cardiac consultation was requested for the finding of a nonspecific, isolated rise in troponin levels. EKG show sinus rhythm with no acute ischemic changes. Echocardiogram done on this presentation shows left ventricular systolic ejection fraction at the lower limits of normal 50%. No acute cardiovascular issues at this time, will continue supportive management of cardiac status, defer treatment of respiratory failure and bilateral pneumonia to internal medicine and pulmonary. Subjective Date of service: 03/14/22 Principal diagnosis: AHRF; Multifocal Pneumonia; Septic shock; NSTEMI; AMS; Seizures Interval history: Patient is sedated, on the vent. On hoe runner she has a sinus rhythm at 99. Blood pressure is 95 systolic. Objective Vital Signs Temp Pulse Pulse Resp BP Pulse Ox 03/14/22 14:00 102 H 24 94/64 99 03/14/22 13:45 100 H 23 94/62 95 03/14/22 13:30 103 H 22 97/63 96 03/14/22 13:15 103 H 24 102/62 98 03/14/22 13:00 102 H 21 92/64 94 03/14/22 12:45 102 H 20 147/89 96 03/14/22 12:31 102 H 24 147/89 96 03/14/22 12:20 102 H 78/54 96 03/14/22 12:15 105 H 23 78/54 74 L 03/14/22 12:01 100 H 27 H 101/58 85 03/14/22 12:00 99.6 F 102 H 03/14/22 11:45 114 H 26 H 95/69 98 03/14/22 11:30 101 H 19 95/68 97 03/14/22 11:15 102 H 22 91/66 97 03/14/22 11:00 113 H 25 H 95/69 97 03/14/22 10:45 104 H 25 H 99/67 97 03/14/22 10:30 101 H 22 89/63 96 03/14/22 10:15 101 H 25 H 97/59 92 03/14/22 10:00 103 H 27 H 103/69 91 03/14/22 09:45 103 H 28 H 104/72 92 03/14/22 09:30 106 H 20 102/69 98 03/14/22 09:15 105 H 23 100/59 94 03/14/22 09:00 99 H 21 90/65 94 03/14/22 08:45 100 H 23 94/66 96 03/14/22 08:30 102 H 22 90/60 93 03/14/22 08:15 99 H 19 96/51 96 03/14/22 08:00 100 H 100 H 26 H 103/73 98 03/14/22 07:45 99 H 22 99/66 97 03/14/22 07:30 96 H 19 89/59 96 03/14/22 07:15 100.6 F H 97 H 20 88/63 97 03/14/22 07:00 99 H 21 92/67 96 03/14/22 06:45 98 H 20 90/67 97 03/14/22 06:30 100 H 21 88/62 95 03/14/22 06:15 98 H 18 90/62 98 03/14/22 06:00 98 H 18 94/61 98 03/14/22 05:45 99 H 20 89/65 97 03/14/22 05:30 102 H 25 H 94/61 96 03/14/22 05:15 100 H 22 96/64 94 03/14/22 05:00 100 H 21 98/69 96 03/14/22 04:45 100 H 22 105/72 94 03/14/22 04:31 102 H 23 96/71 96 03/14/22 04:15 101 H 20 95/64 93 03/14/22 04:00 100 H 101 H 20 99/67 93 03/14/22 03:50 97.5 F L 03/14/22 03:45 100 H 24 99/70 93 03/14/22 03:30 101 H 24 101/70 98 03/14/22 03:15 99 H 26 H 96/71 93 03/14/22 03:00 100 H 20 89/63 93 03/14/22 02:45 100 H 20 94/68 92 03/14/22 02:30 98 H 25 H 95/64 92 03/14/22 02:15 100 H 18 102/66 91 03/14/22 02:00 92/63 93 03/14/22 01:45 92/59 95 03/14/22 01:30 98 H 19 92/59 98 03/14/22 01:15 99 H 21 91/62 97 03/14/22 01:00 99 H 23 99/61 97 03/14/22 00:45 98 H 20 97/64 98 03/14/22 00:30 99 H 19 95/63 99 03/14/22 00:15 98 H 18 96/67 99 03/14/22 00:00 98 H 99 H 7 L 97/64 98 03/13/22 23:46 97.9 F 03/13/22 23:45 99 H 18 99/65 100 03/13/22 23:30 99 H 17 99/67 100 03/13/22 23:15 99 H 18 100/64 100 03/13/22 23:00 98 H 21 103/69 100 03/13/22 22:45 99 H 21 103/68 100 03/13/22 22:30 97 H 22 99/64 100 03/13/22 22:15 97 H 17 93/64 100 03/13/22 22:07 98 03/13/22 22:00 96 H 18 84/54 99 03/13/22 21:45 98 H 19 86/64 100 03/13/22 21:30 108 H 20 98/65 100 03/13/22 21:15 119 H 25 H 107/65 97 03/13/22 21:00 120 H 22 102/73 99 03/13/22 20:45 112 H 19 101/64 98 03/13/22 20:30 119 H 17 107/59 97 03/13/22 20:15 121 H 16 110/66 98 03/13/22 20:00 99.2 F 113 H 98 H 18 93/62 97 03/13/22 19:55 87 03/13/22 19:45 108 H 19 99/66 100 03/13/22 19:40 85 03/13/22 19:31 103 H 20 91/58 96 03/13/22 19:30 102 H 8 L 91/58 80 L 03/13/22 19:15 102 H 21 91/63 84 03/13/22 19:00 102 H 21 91/63 83 L 03/13/22 18:45 102 H 19 92/67 03/13/22 18:30 102 H 18 92/68 03/13/22 18:15 102 H 22 102/70 03/13/22 18:00 98 H 22 85/56 79 L 03/13/22 17:45 102 H 18 85/63 89 03/13/22 17:30 97 H 14 85/59 89 03/13/22 17:15 98 H 17 89/64 91 03/13/22 17:00 96 H 15 89/61 91 03/13/22 16:45 97 H 17 89/60 90 03/13/22 16:44 96 H 89/60 88 03/13/22 16:30 97 H 20 89/64 90 03/13/22 16:15 97 H 19 89/63 90 03/13/22 16:00 98.2 F 97 H 97 H 16 90/64 92 03/13/22 15:45 97 H 22 94/67 90 03/13/22 15:30 105 H 20 93/65 87 03/13/22 15:15 98 H 19 93/65 88 03/13/22 15:00 100 H 21 104/70 88 03/13/22 14:45 109 H 32 H 93/71 88 03/13/22 14:30 100 H 17 102/68 93 03/13/22 14:15 102 H 17 100/65 93 - Physical Examination General: Other (intubated on mechanical ventilator) HEENT: Positive: PERRL Neck: Positive: neck supple, trachea midline. Negative: JVD/HJR Cardiac: Positive: Reg Rate and Rhythm Lungs: Positive: Decreased Breath Sounds Neuro: Positive: Other (Intubated, sedated on the vent) Abdomen: Positive: Soft Skin: Positive: Clear, Other (multiple wounds) Extremities: Absent: edema - Labs and Meds CBC 03/14/22 Range/Units 04:54 WBC 17.0 H (4.5-11.0) K/mm3 RBC 2.79 L (3.65-5.03) M/mm3 Hgb 7.8 L (10.1-14.3) gm/dl Hct 23.6 L (30.3-42.9) % Plt Count 193 (140-440) K/mm3 Comprehensive Metabolic Panel 03/14/22 Range/Units 04:54 Sodium 129 L (137-145) mmol/L Potassium 3.5 L (3.6-5.0) mmol/L Chloride 97.1 L (98-107) mmol/L Carbon Dioxide 22 (22-30) mmol/L BUN 24 H (7-17) mg/dL Creatinine 0.5 L (0.6-1.2) mg/dL Glucose 125 H (65-100) mg/dL Calcium 7.0 L (8.4-10.2) mg/dL - Allied health notes Allied health notes reviewed: RT
[2022-03-14 16:42] LABS: Blood Urea Nitrogen 31 mg/dL (7-17); Hemolysis Index 20
[2022-03-14 16:43] LABS: BUN/Creatinine Ratio 52
[2022-03-14] MEDS: NORepinephrine/NS 8 MG-250 ML 8 MG/250 ML INFUS..BTL IV SCH (17:25)
--- NOTE | 2022-03-14 21:46 | Progress Note ---
Assessment and Plan Cultures: Blood culture no growth so far Sputum culture no growth so far A/P: 61-year-old female past medical history of multiple sclerosis, seizures now with: #Acute sepsis: With fevers, leukocytosis. Secondary to bilateral pneumonia #Acute hypoxic respiratory failure on vent #Bilateral pneumonia #Multiple sclerosis Recs: -Escalated to meropenem considering ongoing leukocytosis and fevers -Follow fever curve and white count Thank you for the consult, we will continue to follow. Lizy Ashraf MD [facility] O: [phone] F: [phone] Subjective Date of service: 03/14/22 Principal diagnosis: AHRF; Multifocal Pneumonia; Septic shock; NSTEMI; AMS; Seizures Interval history: Febrile to 100.6 with a white count of 17 cultures remain negative. Imaging personally reviewed: Chest x-ray: No significant change. Objective - Exam Narrative Exam: Physical Exam: Constitutional: intubated, sedated Head, Ears, Nose: Normocephalic, atraumatic. External ears, nose normal Eyes: Conjunctivae/corneas clear. No icterus. No ptosis. Neck: Supple, no meningeal signs Oral: ETT Cardiovascular: S1, S2 normal. Respiratory: Good air entry, clear to auscultation bilaterally GI: Soft, non-tender; bowel sounds normal. No peritoneal signs. Musculoskeletal: No pedal edema, no cyanosis. Skin: No rash or abscess Hem/Lymphatic: No palpable cervical or supraclavicular nodes. No lymphangitis Psych: Unable to assess Neurological: Unable to asses. - Constitutional Vitals: Vital Signs Temp Pulse Resp BP Pulse Ox 99.5 F 104 H 20 96/76 95 03/14/22 20:00 03/14/22 21:00 03/14/22 21:00 03/14/22 21:00 03/14/22 21:00 Temperature -Last 24 Hours Temperature 99.5 F Temperature 100.6 F Temperature 99.6 F Temperature 100.6 F Temperature 97.5 F Temperature 97.9 F - Labs CBC & Chem 7: 03/14/22 04:54 03/14/22 16:15 Labs: Abnormal lab results 03/13/22 03/14/22 03/14/22 Range/Units 22:59 04:54 04:54 WBC 17.0 H (4.5-11.0) K/mm3 RBC 2.79 L (3.65-5.03) M/mm3 Hgb 7.8 L (10.1-14.3) gm/dl Hct 23.6 L (30.3-42.9) % RDW 15.6 H (13.2-15.2) % Sodium 129 L (137-145) mmol/L Potassium 3.5 L (3.6-5.0) mmol/L Chloride 97.1 L (98-107) mmol/L BUN 24 H (7-17) mg/dL Creatinine 0.5 L (0.6-1.2) mg/dL Glucose 125 H (65-100) mg/dL POC Glucose 127 H (70-105) mg/dL Calcium 7.0 L (8.4-10.2) mg/dL 03/14/22 Range/Units 16:15 WBC (4.5-11.0) K/mm3 RBC (3.65-5.03) M/mm3 Hgb (10.1-14.3) gm/dl Hct (30.3-42.9) % RDW (13.2-15.2) % Sodium 128 L (137-145) mmol/L Potassium (3.6-5.0) mmol/L Chloride 97.0 L (98-107) mmol/L BUN 31 H (7-17) mg/dL Creatinine (0.6-1.2) mg/dL Glucose 114 H (65-100) mg/dL POC Glucose (70-105) mg/dL Calcium 7.0 L (8.4-10.2) mg/dL
[2022-03-14] MEDS: MEROPENEM/NS 1 GRAM/100 ML 1 GRAM/100 ML BAG IV SCH (22:45)
--- NOTE | 2022-03-15 03:34 | XRay Report ---
CHEST 1 VIEW 03/15/2022 2:26 AM INDICATION / CLINICAL INFORMATION: follow up respiratory failure. COMPARISON: 03/14/2022 FINDINGS: SUPPORT DEVICES: Unchanged. HEART / MEDIASTINUM: Stable. LUNGS / PLEURA: Redemonstrated and slightly improved patchy airspace opacities throughout the bilater al lungs. No pneumothorax. ADDITIONAL FINDINGS: No significant additional findings. IMPRESSION: 1. Interval improvement. Signer Name: Charlie Venegas DO Signed: 03/15/2022 3:29 AM Workstation Name: [id number]
[2022-03-15 04:46] LABS: Hematocrit 21.5 % (30.3-42.9); Hemoglobin 7.1 gm/dl (10.1-14.3); Mean Corpuscular HGB Conc 33 % (30-34); Mean Corpuscular Volume 84 fl (79-97); Platelet Count 203 K/mm3 (140-440); Red Blood Count 2.55 M/mm3 (3.65-5.03); Red Cell Distribution Width 15.8 % (13.2-15.2)
[2022-03-15 05:13] LABS: Alanine Aminotransferase 10 units/L (7-56); Albumin 2.1 g/dL (3.9-5); Blood Urea Nitrogen 33 mg/dL (7-17); Calcium 7.4 mg/dL (8.4-10.2); Hemolysis Index 46
[2022-03-15 05:20] LABS: BUN/Creatinine Ratio 55
[2022-03-15 05:26] LABS: Basophils % (Manual) 0 % (0.0-1.8); Total Cells Counted 100
[2022-03-15 05:27] LABS: Hypochromasia 1+; Ovalocytes Few; Platelet Estimate Consistent w Auto; Target Cells Rare
[2022-03-15 06:12] LABS: ABG Base Excess -3.1 mmol/L (-2.0-3.0); ABG HCO3 21.7 mmol/L (20.0-26.0); ABG Methemoglobin 0.5 % (0.0-1.5); ABG Oxygen Saturation 98.2 % (95.0-99.0); ABG PCO2 37.6 mm Hg; ABG PH 7.38 pH Units (7.350-7.450)
[2022-03-15] MEDS: fentaNYL DRIP Premix 2,000 MCG/100 ML BAG IV SCH ×3 (07:16→22:23)
[2022-03-15] MEDS: MEROPENEM/NS 1 GRAM/100 ML 1 GRAM/100 ML BAG IV SCH ×3 (07:18→21:40)
[2022-03-15] MEDS ORDERED: FUROSEMIDE 40 MG/4 ML INJ IV SCH (09:00)
[2022-03-15] MEDS ORDERED: SODIUM PHOSPHATE 45 MMOL in SODIUM CHLORIDE 0.9% 500 ML 500 ML IV ONE (09:00)
[2022-03-15] MEDS: POLYETHYLENE GLYCOL 3350 17 GM POWDER FEEDTUBE SCH (09:25)
[2022-03-15] MEDS: FAMOTIDINE 20 MG TAB FEEDTUBE SCH ×2 (09:25→21:39)
[2022-03-15] MEDS: ENOXAPARIN 40 MG/0.4 ML INJ SUB-Q SCH (09:25)
[2022-03-15] MEDS: levETIRAcetam 500 MG/5 ML ORAL LIQD FEEDTUBE SCH ×2 (09:25→21:40)
[2022-03-15] MEDS: SENNOSIDES/DOCUSATE SODIUM 8.6/50 MG TAB FEEDTUBE SCH ×2 (10:11→21:40)
--- NOTE | 2022-03-15 10:31 | Progress Note ---
<JOSEPH FRAGA - Last Filed: 03/15/22 13:30> Assessment and Plan Assessment and plan: This is a 61-year-old female with MS and seizure disorder admitted with sepsis, hyponatremia, hypokalemia, elevated troponins and acute hypoxic respiratory failure Neuro: Acute metabolic encephalopathy, h/o Multiple Sclerosis, Seizure disorder -Neurology consulted, appreciate recommendations -Sedated with Fentanyl gtt -RASS goal 0 to -1 -Keppra -Reorientation as needed -Maintain sleep-wake cycle -Seizure precautions -As needed analgesia -CT head shows vascular angioplasty without clear evidence of acute intracranial hemorrhage -MRI brain with and without contrast and MRI C-spine with and without contrast pending -EEG considered abnormal and is compatible with diffuse encephalopathy of perhaps significant brain sedation or neuro active medication or daily combination of both. Absence of epileptiform abnormality but would not rule out possibility of epilepsy -UDS (+) for opiates -Prealbumin 0.044, vitamin B 12 1021, folate 2.15, syphilis nonreactive Cardiac: Hypotension, Elevated troponin -Cardiology consulted, appreciate recommendations -BNP 62580 -Blood pressure monitoring per protocol -Vasopressor support with Levophed gtt -MAP goal greater than 65 -Echocardiogram LVEF 50%, no pulmonary HTN Respiratory: ARDS, Acute hypoxic respiratory failure -CCM consulted, appreciate recommendations -Intubated on 03/10 with 7.5 OETT at 23 cm at the lips in the ED -A.m. vent settings: AC TV 400, Rate 14, PEEP 10, FiO2 @ 100% -See RT notes for titration -s/p lasix x 2 03/14, lasix today -A.m. ABG and CXR noted -VAP bundle -SPO2 monitoring GI: Moderate Protein Calorie Malnutrition, Transaminitis -24 hours + 1832 mL -PPI -NTR consulted for tube feedings -BR: Miralax, Senokot S -Trend LFTs : Severe hyponatremia, hypophosphatemia -Nephrology consulted, appreciate recommendations -Record intake and output -s/p Sodium Bicarb gtt -Renally dose medications -Avoid nephrotoxic medications -Replete phosphate -Trend BMP ID: Septic Shock, CAP, lactic acidosis (resolved) -Covid 19 PCR (-) -Infectious disease consulted, appreciate recommendation -Antibiotic therapy escalated to merropenum -f/u blood culture -Monitor WBC and temperature curve Endo: NAD -Avoid hypoglycemia -SSI -Accu-Cheks q. 6hr Heme: Leukocytosis -Trend CBC -Transfuse hemoglobin less than 7 -SCDs to BLE while in bed The high probability of a clinically significant, sudden or life threatening deterioration of the [multiple] system(s) required my full and direct attention, intervention and personal management. The aggregate critical care time was [60] minutes. This time is in addition to time spent performing reported procedures but includes the following: [x] Data Review and interpretation [x] Patient assessment and monitoring of vital signs [x] Documentation [x] Medication orders and management Disposition Plan: icu Total Time Spent with Patient (Minutes): 60 History Interval history: This is a 61-year-old female with multiple sclerosis and seizure disorder who presented to emergency department on 03/10 via EMS for evaluation of shortness of breath and difficulty breathing. Upon arrival of EMS patient's SPO2 was in the 50s and she was hypotensive to 80s over 50s and was started on IV fluids in route and placed on CPAP. Upon arrival to the emergency department patient was placed on BiPAP and work-up in the emergency department included a CXR which showed multifocal pneumonia, lab work revealed hyponatremia, hypokalemia, lactic acidosis, metabolic acidosis and elevated troponins. Patient was started on empiric antibiotics and admitted to the hospital service with Sepsis, acute hypoxic respiratory failure, electrolyte imbalances and elevated troponins with consults to cardiology, pulmonology and nephrology. Hospital Course to Date: 03/10: S/p intubation this am due to tachypnea and worsen mental status. Current sedated and stable on the vent. Patient is now on low dose Levophed gtt due to hypotension. Presented with a Na level of 119, on continuous NS at 125ml, repeat BMP pending. Continue IVF hydration and serial Na Q6hrs. Nephrology is also following. Continue empiric IV Abx for CAP, COVID PCR pending, ID consult pending. D-Dimer also elevated, BLE doppler ordered, therapeutic Lovenox initiated. D/W [facility] patient is too unstable for transport at this time, possible CTA chest in the am or once patient is more stable. Cardiology was also consulted for elevated troponin X2, EKG noted with no significant ST changes, 2D echo pending. Resume home AEDs, continue seizure precautions. Monitor and replace electrolytes as needed 03/11: Intubated and low dose fentanyl gtt. Open eyes spontaneously but does not track, not following commands. NA level 132 this am, Nabcarb gtt initiated per Nephro. CT head/brain w/o con ordered to r/o intracranial abnormality. Wean off sedation to better assess mental status. Remains on Levophed gtt, afebrile, but with leukocytosis this am. This am CXR and ABG noted, with significant improvement. D/w CCM, PE less likely will hold off on CTA chest for now. Lovenox switched to Qday. Continue empiric IV Abx, ID consult pending. 03/12: Discontinue bicarb gtt, replete phos and potassium, added miralax. Remain on levo and fent gtt 03/13: MRI brain/C-spine completed, EEG completed. Hyponatremia improved, patient remains on Levophed. Had a temperature of 101.3 remains on cefepime. Will defer to ID for abx. Will reculture on next temperature spike. 03/14: Overnight patient had hypoxia issues and FiO2 was increased to 100%, received lasix with repeat dose in AM. Hypotension and increase in levophed. Replete K. 03/15: hypoxia overnight and currently on 100%. RN attempted to lay flat and patient desatted to 88%. Will attempt again later today. Given lasix again. Hopeful to be able to have MRI today. Type and screen today for downtrending h/h, Wean FiO2 as tolerated, repelted phos with sodium phos. Hospitalist Physical - Constitutional Vitals: Temp Pulse Resp BP Pulse Ox 100.6 F H 108 H 25 H 105/67 97 03/15/22 08:01 03/15/22 10:15 03/15/22 10:15 03/15/22 10:15 03/15/22 10:15 General appearance: Present: no acute distress, other (sedated, intubated) - EENT Eyes: Present: PERRL, EOM intact ENT: poor dentition - Neck Neck: Present: normal ROM - Respiratory Respiratory effort: normal Respiratory: bilateral: diminished, rhonchi - Cardiovascular Rhythm: regular Heart Sounds: Present: S1 & S2. Absent: systolic murmur, diastolic murmur - Extremities Extremities: no ischemia, pulses intact, pulses symmetrical, No edema, normal temperature, normal color Peripheral Pulses: within normal limits - Abdominal General gastrointestinal: soft, non-tender, non-distended, normal bowel sounds - Integumentary Integumentary: Present: warm, dry - Psychiatric Psychiatric: other - Neurologic Neurologic: other (moves BUE, intermittently follows commands, intact cough/gag) - Allied Health Allied health notes reviewed: nursing, RT, social work HEART Score - HEART Score Troponin: Troponin T 0.032 ng/mL (0.00-0.029) H D 03/10/22 12:24 Results - Labs CBC & Chem 7: 03/15/22 04:10 03/15/22 04:10 Labs: Laboratory Last Values WBC 12.9 K/mm3 (4.5-11.0) H 03/15/22 04:10 RBC 2.55 M/mm3 (3.65-5.03) L 03/15/22 04:10 Hgb 7.1 gm/dl (10.1-14.3) L 03/15/22 04:10 Hct 21.5 % (30.3-42.9) L 03/15/22 04:10 MCV 84 fl (79-97) 03/15/22 04:10 MCH 28 pg (28-32) 03/15/22 04:10 MCHC 33 % (30-34) 03/15/22 04:10 RDW 15.8 % (13.2-15.2) H 03/15/22 04:10 Plt Count 203 K/mm3 (140-440) 03/15/22 04:10 Lymph % (Auto) 8.9 % (13.4-35.0) L 03/11/22 05:00 [place] % (Auto) 4.2 % (0.0-7.3) 03/11/22 05:00 Eos % (Auto) 0.1 % (0.0-4.3) 03/11/22 05:00 Baso % (Auto) 0.2 % (0.0-1.8) 03/11/22 05:00 Lymph # (Auto) 1.2 K/mm3 (1.2-5.4) 03/11/22 05:00 [place] # (Auto) 0.6 K/mm3 (0.0-0.8) 03/11/22 05:00 Eos # (Auto) 0.0 K/mm3 (0.0-0.4) 03/11/22 05:00 Baso # (Auto) 0.0 K/mm3 (0.0-0.1) 03/11/22 05:00 Add Manual Diff Complete 03/15/22 04:10 Total Counted 100 03/15/22 04:10 Seg Neutrophils % 86.6 % (40.0-70.0) H 03/11/22 05:00 Seg Neuts % (Manual) 88.0 % (40.0-70.0) H 03/15/22 04:10 Band Neutrophils % 0 % 03/15/22 04:10 Lymphocytes % (Manual) 5.0 % (13.4-35.0) L 03/15/22 04:10 Reactive Lymphs % (Man) 0 % 03/15/22 04:10 Monocytes % (Manual) 3.0 % (0.0-7.3) 03/15/22 04:10 Eosinophils % (Manual) 4.0 % (0.0-4.3) 03/15/22 04:10 Basophils % (Manual) 0 % (0.0-1.8) 03/15/22 04:10 Metamyelocytes % 0 % 03/15/22 04:10 Myelocytes % 0 % 03/15/22 04:10 Promyelocytes % 0 % 03/15/22 04:10 Blast Cells % 0 % 03/15/22 04:10 Nucleated RBC % Not Reportable 03/15/22 04:10 Seg Neutrophils # 11.8 K/mm3 (1.8-7.7) H 03/11/22 05:00 Seg Neutrophils # Man 11.4 K/mm3 (1.8-7.7) H 03/15/22 04:10 Band Neutrophils # 0.0 K/mm3 03/15/22 04:10 Lymphocytes # (Manual) 0.6 K/mm3 (1.2-5.4) L 03/15/22 04:10 Abs React Lymphs (Man) 0.0 K/mm3 03/15/22 04:10 Monocytes # (Manual) 0.4 K/mm3 (0.0-0.8) 03/15/22 04:10 Eosinophils # (Manual) 0.5 K/mm3 (0.0-0.4) H 03/15/22 04:10 Basophils # (Manual) 0.0 K/mm3 (0.0-0.1) 03/15/22 04:10 Metamyelocytes # 0.0 K/mm3 03/15/22 04:10 Myelocytes # 0.0 K/mm3 03/15/22 04:10 Promyelocytes # 0.0 K/mm3 03/15/22 04:10 Blast Cells # 0.0 K/mm3 03/15/22 04:10 WBC Morphology Not Reportable 03/15/22 04:10 Hypersegmented Neuts Not Reportable 03/15/22 04:10 Hyposegmented Neuts Not Reportable 03/15/22 04:10 Hypogranular Neuts Not Reportable 03/15/22 04:10 Smudge Cells Not Reportable 03/15/22 04:10 Toxic Granulation Not Reportable 03/15/22 04:10 Toxic Vacuolation Not Reportable 03/15/22 04:10 Dohle Bodies Not Reportable 03/15/22 04:10 Pelger-Huet Anomaly Not Reportable 03/15/22 04:10 Luis Rods Not Reportable 03/15/22 04:10 Platelet Estimate Consistent w auto 03/15/22 04:10 Clumped Platelets Not Reportable 03/15/22 04:10 Plt Clumps, EDTA Not Reportable 03/15/22 04:10 Large Platelets Not Reportable 03/15/22 04:10 Giant Platelets Not Reportable 03/15/22 04:10 Platelet Satelliting Not Reportable 03/15/22 04:10 Plt Morphology Comment Not Reportable 03/15/22 04:10 RBC Morphology Not Reportable 03/15/22 04:10 Dimorphic RBCs Not Reportable 03/15/22 04:10 Polychromasia Not Reportable 03/15/22 04:10 Hypochromasia 1+ 03/15/22 04:10 Poikilocytosis Not Reportable 03/15/22 04:10 Anisocytosis Not Reportable 03/15/22 04:10 Microcytosis Not Reportable 03/15/22 04:10 Macrocytosis Not Reportable 03/15/22 04:10 Spherocytes Not Reportable 03/15/22 04:10 Pappenheimer Bodies Not Reportable 03/15/22 04:10 Sickle Cells Not Reportable 03/15/22 04:10 Target Cells Rare 03/15/22 04:10 Tear Drop Cells Not Reportable 03/15/22 04:10 Ovalocytes Few 03/15/22 04:10 Helmet Cells Not Reportable 03/15/22 04:10 [place] Bodies Not Reportable 03/15/22 04:10 [place] Rings Not Reportable 03/15/22 04:10 Rudy Cells Not Reportable 03/15/22 04:10 Bite Cells Not Reportable 03/15/22 04:10 Crenated Cell Not Reportable 03/15/22 04:10 Elliptocytes Not Reportable 03/15/22 04:10 Acanthocytes (Spur) Few 03/15/22 04:10 Rouleaux Not Reportable 03/15/22 04:10 Hemoglobin C Crystals Not Reportable 03/15/22 04:10 Schistocytes Not Reportable 03/15/22 04:10 Malaria parasites Not Reportable 03/15/22 04:10 Tani Bodies Not Reportable 03/15/22 04:10 Hem Pathologist Commnt No 03/15/22 04:10 PT 14.9 Sec. (12.2-14.9) 03/10/22 01:25 INR 1.03 (0.87-1.13) 03/10/22 01:25 D-Dimer 787.78 ng/mlDDU (0-234) H 03/10/22 05:45 ABG pH 7.380 pH Units (7.350-7.450) 03/15/22 05:55 ABG pCO2 37.6 mm Hg 03/15/22 05:55 ABG pO2 119.0 mm Hg (80.0-90.0) H 03/15/22 05:55 ABG HCO3 21.7 mmol/L (20.0-26.0) 03/15/22 05:55 ABG O2 Saturation 98.2 % (95.0-99.0) 03/15/22 05:55 ABG O2 Content 11.4 (0.0-44) 03/15/22 05:55 ABG Base Excess -3.1 mmol/L (-2.0-3.0) L 03/15/22 05:55 ABG Hemoglobin 8.2 gm/dl (12.0-16.0) L 03/15/22 05:55 ABG Carboxyhemoglobin 1.2 % (0.0-5.0) 03/15/22 05:55 ABG Methemoglobin 0.5 % (0.0-1.5) 03/15/22 05:55 Oxyhemoglobin 96.6 % (95.0-99.0) 03/15/22 05:55 FiO2 100 % 03/15/22 05:55 Sodium 127 mmol/L (137-145) L 03/15/22 04:10 Potassium 4.8 mmol/L (3.6-5.0) 03/15/22 04:10 Chloride 96.3 mmol/L (98-107) L 03/15/22 04:10 Carbon Dioxide 21 mmol/L (22-30) L 03/15/22 04:10 Anion Gap 15 mmol/L 03/15/22 04:10 BUN 33 mg/dL (7-17) H 03/15/22 04:10 Creatinine 0.6 mg/dL (0.6-1.2) 03/15/22 04:10 Estimated GFR > 60 ml/min 03/15/22 04:10 BUN/Creatinine Ratio 55 % 03/15/22 04:10 Glucose 126 mg/dL (65-100) H 03/15/22 04:10 POC Glucose 116 mg/dL (70-105) H 03/15/22 05:02 Osmolality 285 Mosm/kg 03/10/22 12:24 Lactic Acid 1.70 mmol/L (0.7-2.0) 03/11/22 05:00 Uric Acid 1.6 mg/dL (3.5-7.6) L 03/10/22 13:15 Calcium 7.4 mg/dL (8.4-10.2) L 03/15/22 04:10 Phosphorus 1.20 mg/dL (2.5-4.5) L 03/15/22 04:10 Magnesium 1.90 mg/dL (1.7-2.3) 03/15/22 04:10 Ferritin 219.2 ng/mL (10.0-200.0) H 03/10/22 05:45 Total Bilirubin 0.30 mg/dL (0.1-1.2) 03/15/22 04:10 AST 28 units/L (5-40) 03/15/22 04:10 ALT 10 units/L (7-56) 03/15/22 04:10 Alkaline Phosphatase 71 units/L (35-129) 03/15/22 04:10 Lactate Dehydrogenase 210 units/L (91-180) H 03/10/22 05:45 Total Creatine Kinase 901 units/L (30-135) H 03/10/22 12:24 CK-MB (CK-2) 15.3 ng/mL (0.0-4.0) H 03/10/22 12:24 CK-MB (CK-2) Rel Index 1.6 (0-4) 03/10/22 12:24 Troponin T 0.032 ng/mL (0.00-0.029) H D 03/10/22 12:24 C-Reactive Protein < 0.03 mg/dL (0.00-1.30) 03/10/22 05:45 NT-Pro-B Natriuret Pep 17231 pg/mL (0-900) H 03/10/22 01:25 Total Protein 5.3 g/dL (6.3-8.2) L 03/15/22 04:10 Albumin 2.1 g/dL (3.9-5) L 03/15/22 04:10 Albumin/Globulin Ratio 0.7 % 03/15/22 04:10 Prealbumin 0.044 g/L (0.200-0.400) L 03/12/22 18:40 Triglycerides 47 mg/dL (2-149) 03/10/22 01:25 Cholesterol 259 mg/dL (50-199) H 03/10/22 01:25 LDL Cholesterol Direct 187 mg/dL (50-130) H 03/10/22 01:25 HDL Cholesterol 63 mg/dL (40-59) H 03/10/22 01:25 Cholesterol/HDL Ratio 4.11 % 03/10/22 01:25 Lipase 15 units/L (13-60) 03/10/22 01:25 Vitamin B12 1021 pg/mL (211-911) H 03/12/22 18:40 Folate 2.15 ng/mL (7.3-26.0) L 03/12/22 18:40 Procalcitonin 3.92 ng/mL (<0.15) 03/10/22 05:45 TSH 1.290 mlU/mL (0.270-4.200) 03/12/22 18:40 Urine Color Yellow (Yellow) 03/10/22 18:20 Urine Turbidity Clear (Clear) 03/10/22 18:20 Urine pH 6.0 (5.0-7.0) 03/10/22 18:20 Ur Specific [place] 1.010 (1.003-1.030) 03/10/22 18:20 Urine Protein <15 mg/dl mg/dL (Negative) 03/10/22 18:20 Urine Glucose (UA) Neg mg/dL (Negative) 03/10/22 18:20 Urine Ketones Tr mg/dL (Negative) 03/10/22 18:20 Urine Blood Sm (Negative) 03/10/22 18:20 Urine Nitrite Neg (Negative) 03/10/22 18:20 Urine Bilirubin Neg (Negative) 03/10/22 18:20 Urine Urobilinogen < 2.0 mg/dL (<2.0) 03/10/22 18:20 Ur Leukocyte Esterase Lg (Negative) 03/10/22 18:20 Urine WBC (Auto) 105.0 /HPF (0.0-6.0) H 03/10/22 18:20 Urine RBC (Auto) 2.0 /HPF (0.0-6.0) 03/10/22 18:20 U Epithel Cells (Auto) < 1.0 /HPF (0-13.0) 03/10/22 18:20 Urine Bacteria (Auto) 1+ /HPF (Negative) 03/10/22 18:20 Urine Osmolality 368 Mosm/kg 03/10/22 18:20 Urine Sodium 64 mmol/L 03/10/22 18:20 Urine Opiates Screen Presumptive positive 03/10/22 18:20 Urine Methadone Screen Presumptive negative 03/10/22 18:20 Ur Barbiturates Screen Presumptive negative 03/10/22 18:20 Ur Phencyclidine Scrn Presumptive negative 03/10/22 18:20 Ur Amphetamines Screen Presumptive negative 03/10/22 18:20 U Benzodiazepines Scrn Presumptive negative 03/10/22 18:20 Urine Cocaine Screen Presumptive negative 03/10/22 18:20 U Marijuana (THC) Screen Presumptive negative 03/10/22 18:20 Drugs of Abuse Note Disclamer 03/10/22 18:20 Copper 118 mcg/dL (70-175) 03/12/22 18:40 Syphilis IgG/IgM Ab Nonreactive (NonReactive) 03/12/22 18:40 SARS-CoV-2 (PCR) Negative (Negative) 03/10/22 09:50 Microbiology: Microbiology 03/10/22 01:25 Peripheral/Venous Blood Culture - Final NO GROWTH AFTER 5 DAYS 03/10/22 01:59 Peripheral/Venous Blood Culture - Final NO GROWTH AFTER 5 DAYS 03/10/22 12:45 Tracheal Aspirate Sputum Culture - Final [place]/IV: Voiding Method Indwelling Catheter Active Medications - Current Medications Current Medications: Generic Name Dose Route Start Last Admin Trade Name Freq PRN Reason Stop Dose Admin Acetaminophen 650 mg 03/13/22 05:50 03/13/22 06:10 Acetaminophen 325 Mg/10.15 Ml Oral Liqd Unit Dose FEEDTUBE 650 mg Q6H PRN Administration Non Cardiac Pain or Temp>100.5 Bisacodyl 10 mg 03/15/22 10:00 Bisacodyl 5 Mg Tab PO QDAY PRN Constipation Enoxaparin Sodium 40 mg 03/12/22 10:00 03/15/22 09:25 Enoxaparin 40 Mg/0.4 Ml Inj SUB-Q 40 mg QDAY@1000 SHAHBAZ Administration Protocol Famotidine 20 mg 03/12/22 10:00 03/15/22 09:25 Famotidine 20 Mg Tab FEEDTUBE 20 mg BID SHAHBAZ Administration Fentanyl 50 mcg 03/10/22 10:58 03/14/22 20:48 Fentanyl 100 Mcg/2 Ml Inj IV 50 mcg Q10MIN PRN Administration ANALGESIA Furosemide 40 mg 03/15/22 09:00 03/15/22 09:25 Furosemide 40 Mg/4 Ml Inj IV 03/15/22 18:01 40 mg 0600,1800 SHAHBAZ Administration Hydrophilic Ointment 1 applic 03/10/22 11:03 Lip Therapy Vaseline TP Q2HR PRN Dry Lips Fentanyl Citrate 2,000 mcg in 100 mls @ 4.16 mls/hr 03/10/22 11:00 03/15/22 07:16 Fentanyl Drip Premix IV 3 mcg/kg/hr TITR SHAHBAZ 12.48 mls/hr Administration Protocol 1 MCG/KG/HR NORepinephrine/NS 8 MG-250 ML 8 mg in 250 mls @ 3.75 mls/hr 03/10/22 11:00 03/14/22 23:00 Norepinephrine/Ns 8 Mg-250 Ml (Double Conc) IV 4 mcg/min TITRATE SHAHBAZ 7.5 mls/hr Titration Protocol 2 MCG/MIN Meropenem/Sodium Chloride 1 gram in 100 mls @ 100 mls/hr 03/14/22 22:00 03/15/22 07:18 Merrem/Ns 1 Gram/100 Ml IV 100 mls/hr Q8H SHAHBAZ Administration Protocol Sodium Phosphate 45 mmol/ 515 mls @ 84 mls/hr 03/15/22 09:00 03/15/22 10:10 Sodium Chloride IV 03/15/22 15:07 84 mls/hr ONCE ONE Administration Levetiracetam 500 mg 03/12/22 10:00 03/15/22 09:25 Levetiracetam 500 Mg/5 Ml Oral Liqd FEEDTUBE 500 mg BID SHAHBAZ Administration Magnesium Hydroxide 30 ml 03/10/22 02:56 Magnesium Hydroxide (Mom) Oral Liqd Udc PO Q4H PRN Constipation Multi-Ingred Cream/Lotion/Oil/Oint 1 applic 03/10/22 11:03 Mineral Oil/Petrolatum, White Ophth Oint 3.5 Gm OU Q4HR PRN Dry Eye(s) Ondansetron HCl 4 mg 03/10/22 02:56 Ondansetron 4 Mg/2 Ml Inj IV Q8H PRN Nausea And Vomiting Polyethylene Glycol 17 gm 03/12/22 10:00 03/15/22 09:25 Polyethylene Glycol 3350 17 Gm Powder FEEDTUBE 17 gm QDAY SHAHBAZ Administration Senna/Docusate Sodium 2 tab 03/14/22 10:00 03/15/22 10:11 Sennosides/Docusate Sodium 8.6/50 Mg Tab FEEDTUBE 2 tab Q12H SHAHBAZ Administration Sodium Chloride 10 ml 03/10/22 10:00 03/15/22 09:26 Sodium Chloride 0.9% 10 Ml Flush Syringe IV 10 ml BID SHAHBAZ Administration Sodium Chloride 10 ml 03/10/22 02:56 Sodium Chloride 0.9% 10 Ml Flush Syringe IV PRN PRN LINE FLUSH Nutrition/Malnutrition Assess - Dietary Evaluation Nutrition/Malnutrition Findings: Nutrition Notes Start: 03/10/22 12:22 Freq: Status: Active Protocol: Document 03/14/22 12:08 JOSH (Rec: 03/14/22 12:31 JOSH [id number]) Nutrition Notes Initial or Follow up Brief Note Current Diagnosis Sepsis,Hypertension, Respiratory Failure, Malnutrition Other Pertinent Diagnosis MS, CAP, Seizure, Metabolic Encephalopathy, Hyponatremia, Hypokalemia, ... Current Diet TF-Vital AF 1.2 En @ 60 ml/hr (since D 03/10). Height 5 ft 6 in Weight 83.2 kg [place] Body Weight (kg) 59.09 BMI 29.6 Weight change and time frame No body weight change reported in 4 days. Weight Status Overweight Subjective/Other Information RD consult for routine F/U on TF tolerance/continuation. TF continues as prescribed, and well tolerated, according to RN notes. Pt remains on Mechanical Ventilation, O2 saturation @ 97%, according to Physical Assessment History notes. Pt presents an unspecified area of concern for skin risk with redness and flakiness, according to Physical Assessment History notes. Percent of energy/protein needs met: Prescribed TF-Vital AF 1.2 En @ 60 ml/hr provides for energy/protein needs (1,728 Kcal/108 g) during LOS, 100% Kcal; 100% AA. #1 Nutrition Diagnosis Inadequate oral intake Diagnosis Progress(for reassessment Continues documentation) Is patient on ventilator? Yes Is Patient Ambulatory and/or Out of Bed No REE-([facility]-confined to bed) 1713.168 Calculation Used for Recommendations [facility] Additional Notes Protein: 1-1.2 g/Kg ABW; 100- 166 g/day. Fluids: 1 ml/Kcal, or as per MD. Nutrition Intervention Nutrition Support: Continue TF-Vital AF 1.2 En @ 60 ml/hr. Flush: 100 ml water Q 4 hr, or as per MD. Kcal 1,728 Protein (gm) 108 Carbohydrates (gm) 159 Fat (gm) 78 Fluid (mL) 1,168 Fiber (gm) 7 % RDI: 100% Kcal; 100% AA. Goal #1 Provide at least 75% of energy /protein needs through Enteral Feeding during LOS. Follow-Up By: 03/21/22 Additional Comments Continue monitoring TF tolerance, Ventilation Status, Pressor support, and BM. <MENENDEZ,IRWIN D. - Last Filed: 03/22/22 12:17> Assessment and Plan Assessment and plan: I saw and evaluated the patient. Discussed with the nurse practitioner and agree with their findings and plan as documented in this note. Hospitalist Physical - Constitutional Vitals: Temp Pulse Resp BP Pulse Ox 99.3 F 88 28 H 93/62 100 03/22/22 06:57 03/22/22 11:00 03/22/22 11:00 03/22/22 11:00 03/22/22 11:00 HEART Score - HEART Score Troponin: Troponin T 0.032 ng/mL (0.00-0.029) H D 03/10/22 12:24 Results - Labs CBC & Chem 7: 03/22/22 04:10 03/22/22 04:10 Labs: Laboratory Last Values WBC 32.9 K/mm3 (4.5-11.0) H 03/22/22 04:10 RBC 2.60 M/mm3 (3.65-5.03) L 03/22/22 04:10 Hgb 7.4 gm/dl (10.1-14.3) L 03/22/22 04:10 Hct 22.3 % (30.3-42.9) L 03/22/22 04:10 MCV 86 fl (79-97) 03/22/22 04:10 MCH 29 pg (28-32) 03/22/22 04:10 MCHC 33 % (30-34) 03/22/22 04:10 RDW 16.8 % (13.2-15.2) H 03/22/22 04:10 Plt Count 517 K/mm3 (140-440) H 03/22/22 04:10 Lymph % (Auto) 8.9 % (13.4-35.0) L 03/11/22 05:00 [place] % (Auto) 4.2 % (0.0-7.3) 03/11/22 05:00 Eos % (Auto) 0.1 % (0.0-4.3) 03/11/22 05:00 Baso % (Auto) 0.2 % (0.0-1.8) 03/11/22 05:00 Lymph # (Auto) 1.2 K/mm3 (1.2-5.4) 03/11/22 05:00 [place] # (Auto) 0.6 K/mm3 (0.0-0.8) 03/11/22 05:00 Eos # (Auto) 0.0 K/mm3 (0.0-0.4) 03/11/22 05:00 Baso # (Auto) 0.0 K/mm3 (0.0-0.1) 03/11/22 05:00 Add Manual Diff Complete 03/21/22 04:40 Total Counted 100 03/21/22 04:40 Seg Neutrophils % 86.6 % (40.0-70.0) H 03/11/22 05:00 Seg Neuts % (Manual) 71.0 % (40.0-70.0) H 03/21/22 04:40 Band Neutrophils % 12.0 % 03/21/22 04:40 Lymphocytes % (Manual) 2.0 % (13.4-35.0) L 03/21/22 04:40 Reactive Lymphs % (Man) 0 % 03/21/22 04:40 Monocytes % (Manual) 7.0 % (0.0-7.3) 03/21/22 04:40 Eosinophils % (Manual) 3.0 % (0.0-4.3) 03/21/22 04:40 Basophils % (Manual) 0 % (0.0-1.8) 03/21/22 04:40 Metamyelocytes % 3.0 % 03/21/22 04:40 Myelocytes % 0 % 03/21/22 04:40 Promyelocytes % 2.0 % 03/21/22 04:40 Blast Cells % 0 % 03/21/22 04:40 Nucleated RBC % 1.0 % (0.0-0.9) H 03/21/22 04:40 Seg Neutrophils # 11.8 K/mm3 (1.8-7.7) H 03/11/22 05:00 Seg Neutrophils # Man 18.2 K/mm3 (1.8-7.7) H 03/21/22 04:40 Band Neutrophils # 3.1 K/mm3 03/21/22 04:40 Lymphocytes # (Manual) 0.5 K/mm3 (1.2-5.4) L 03/21/22 04:40 Abs React Lymphs (Man) 0.0 K/mm3 03/21/22 04:40 Monocytes # (Manual) 1.8 K/mm3 (0.0-0.8) H 03/21/22 04:40 Eosinophils # (Manual) 0.8 K/mm3 (0.0-0.4) H 03/21/22 04:40 Basophils # (Manual) 0.0 K/mm3 (0.0-0.1) 03/21/22 04:40 Metamyelocytes # 0.8 K/mm3 03/21/22 04:40 Myelocytes # 0.0 K/mm3 03/21/22 04:40 Promyelocytes # 0.5 K/mm3 03/21/22 04:40 Blast Cells # 0.0 K/mm3 03/21/22 04:40 WBC Morphology Not Reportable 03/21/22 04:40 Hypersegmented Neuts Not Reportable 03/21/22 04:40 Hyposegmented Neuts Not Reportable 03/21/22 04:40 Hypogranular Neuts Not Reportable 03/21/22 04:40 Smudge Cells Not Reportable 03/21/22 04:40 Toxic Granulation Not Reportable 03/21/22 04:40 Toxic Vacuolation Not Reportable 03/21/22 04:40 Dohle Bodies Not Reportable 03/21/22 04:40 Pelger-Huet Anomaly Not Reportable 03/21/22 04:40 Luis Rods Not Reportable 03/21/22 04:40 Platelet Estimate Consistent w auto 03/21/22 04:40 Clumped Platelets Not Reportable 03/21/22 04:40 Plt Clumps, EDTA Not Reportable 03/21/22 04:40 Large Platelets Few 03/21/22 04:40 Giant Platelets Not Reportable 03/21/22 04:40 Platelet Satelliting Not Reportable 03/21/22 04:40 Plt Morphology Comment Not Reportable 03/21/22 04:40 RBC Morphology Not Reportable 03/21/22 04:40 Dimorphic RBCs Not Reportable 03/21/22 04:40 Polychromasia Not Reportable 03/21/22 04:40 Hypochromasia 3+ 03/21/22 04:40 Poikilocytosis Not Reportable 03/21/22 04:40 Anisocytosis 1+ 03/21/22 04:40 Microcytosis 1+ 03/21/22 04:40 Macrocytosis Not Reportable 03/21/22 04:40 Spherocytes Not Reportable 03/21/22 04:40 Pappenheimer Bodies Not Reportable 03/21/22 04:40 Sickle Cells Not Reportable 03/21/22 04:40 Target Cells Rare 03/21/22 04:40 Tear Drop Cells Few 03/21/22 04:40 Ovalocytes 1+ 03/21/22 04:40 Helmet Cells Not Reportable 03/21/22 04:40 [place] Bodies Not Reportable 03/21/22 04:40 [place] Rings Not Reportable 03/21/22 04:40 [place] Cells Not Reportable 03/21/22 04:40 Bite Cells Not Reportable 03/21/22 04:40 Crenated Cell Not Reportable 03/21/22 04:40 Elliptocytes Few 03/21/22 04:40 Acanthocytes (Spur) Not Reportable 03/21/22 04:40 Rouleaux Not Reportable 03/21/22 04:40 Hemoglobin C Crystals Not Reportable 03/21/22 04:40 Schistocytes Few 03/21/22 04:40 Malaria parasites Not Reportable 03/21/22 04:40 [place] Bodies Not Reportable 03/21/22 04:40 Hem Pathologist Commnt No 03/21/22 04:40 PT 17.2 Sec. (12.2-14.9) H 03/22/22 09:30 INR 1.25 (0.87-1.13) H 03/22/22 09:30 APTT 33.4 Sec. (24.2-36.6) 03/22/22 09:30 D-Dimer 787.78 ng/mlDDU (0-234) H 03/10/22 05:45 ABG pH 7.355 pH Units (7.350-7.450) 03/22/22 09:00 ABG pCO2 36.5 mm Hg 03/22/22 09:00 ABG pO2 82.0 mm Hg (80.0-90.0) 03/22/22 09:00 ABG HCO3 19.9 mmol/L (20.0-26.0) L 03/22/22 09:00 ABG O2 Saturation 96.8 % (95.0-99.0) 03/22/22 09:00 ABG O2 Content 20.1 (0.0-44) 03/22/22 09:00 ABG Base Excess -4.9 mmol/L (-2.0-3.0) L 03/22/22 09:00 ABG Hemoglobin 7.5 gm/dl (12.0-16.0) L 03/22/22 09:00 ABG Carboxyhemoglobin 1.7 % (0.0-5.0) 03/22/22 09:00 ABG Methemoglobin TNR 03/22/22 09:00 Oxyhemoglobin 95.2 % (95.0-99.0) 03/22/22 09:00 FiO2 80 % 03/22/22 09:00 Sodium 137 mmol/L (137-145) 03/22/22 04:10 Potassium 5.4 mmol/L (3.6-5.0) H 03/22/22 04:10 Chloride 97.2 mmol/L (98-107) L 03/22/22 04:10 Carbon Dioxide 21 mmol/L (22-30) L 03/22/22 04:10 Anion Gap 24 mmol/L 03/22/22 04:10 BUN 116 mg/dL (7-17) H 03/22/22 04:10 Creatinine 1.6 mg/dL (0.6-1.2) H 03/22/22 04:10 Estimated GFR 33 ml/min 03/22/22 04:10 BUN/Creatinine Ratio 73 % 03/22/22 04:10 Glucose 142 mg/dL (65-100) H 03/22/22 04:10 POC Glucose 95 mg/dL (70-105) 03/21/22 11:58 Osmolality 285 Mosm/kg 03/10/22 12:24 Lactic Acid 0.90 mmol/L (0.7-2.0) 03/18/22 05:20 Uric Acid 1.6 mg/dL (3.5-7.6) L 03/10/22 13:15 Calcium 8.5 mg/dL (8.4-10.2) 03/22/22 04:10 Phosphorus 3.70 mg/dL (2.5-4.5) 03/18/22 05:20 Magnesium 2.00 mg/dL (1.7-2.3) 03/18/22 05:20 Ferritin 219.2 ng/mL (10.0-200.0) H 03/10/22 05:45 Total Bilirubin 0.30 mg/dL (0.1-1.2) 03/18/22 05:20 AST 39 units/L (5-40) 03/18/22 05:20 ALT 14 units/L (7-56) 03/18/22 05:20 Alkaline Phosphatase 119 units/L (35-129) 03/18/22 05:20 Lactate Dehydrogenase 210 units/L (91-180) H 03/10/22 05:45 Total Creatine Kinase 901 units/L (30-135) H 03/10/22 12:24 CK-MB (CK-2) 15.3 ng/mL (0.0-4.0) H 03/10/22 12:24 CK-MB (CK-2) Rel Index 1.6 (0-4) 03/10/22 12:24 Troponin T 0.032 ng/mL (0.00-0.029) H D 03/10/22 12:24 C-Reactive Protein < 0.03 mg/dL (0.00-1.30) 03/10/22 05:45 NT-Pro-B Natriuret Pep 74564 pg/mL (0-900) H 03/10/22 01:25 Total Protein 5.4 g/dL (6.3-8.2) L 03/18/22 05:20 Albumin 2.0 g/dL (3.9-5) L 03/18/22 05:20 Albumin/Globulin Ratio 0.6 % 03/18/22 05:20 Prealbumin 0.044 g/L (0.200-0.400) L 03/12/22 18:40 Triglycerides 47 mg/dL (2-149) 03/10/22 01:25 Cholesterol 259 mg/dL (50-199) H 03/10/22 01:25 LDL Cholesterol Direct 187 mg/dL (50-130) H 03/10/22 01:25 HDL Cholesterol 63 mg/dL (40-59) H 03/10/22 01:25 Cholesterol/HDL Ratio 4.11 % 03/10/22 01:25 Lipase 15 units/L (13-60) 03/10/22 01:25 Vitamin B1 28 nmol/L (8-30) 03/13/22 08:00 Vitamin B12 1021 pg/mL (211-911) H 03/12/22 18:40 Folate 2.15 ng/mL (7.3-26.0) L 03/12/22 18:40 Procalcitonin 3.92 ng/mL (<0.15) 03/10/22 05:45 TSH 1.290 mlU/mL (0.270-4.200) 03/12/22 18:40 Urine Color Yellow (Yellow) 03/10/22 18:20 Urine Turbidity Clear (Clear) 03/10/22 18:20 Urine pH 6.0 (5.0-7.0) 03/10/22 18:20 Ur Specific [place] 1.010 (1.003-1.030) 03/10/22 18:20 Urine Protein <15 mg/dl mg/dL (Negative) 03/10/22 18:20 Urine Glucose (UA) Neg mg/dL (Negative) 03/10/22 18:20 Urine Ketones Tr mg/dL (Negative) 03/10/22 18:20 Urine Blood Sm (Negative) 03/10/22 18:20 Urine Nitrite Neg (Negative) 03/10/22 18:20 Urine Bilirubin Neg (Negative) 03/10/22 18:20 Urine Urobilinogen < 2.0 mg/dL (<2.0) 03/10/22 18:20 Ur Leukocyte Esterase Lg (Negative) 03/10/22 18:20 Urine WBC (Auto) 105.0 /HPF (0.0-6.0) H 03/10/22 18:20 Urine RBC (Auto) 2.0 /HPF (0.0-6.0) 03/10/22 18:20 U Epithel Cells (Auto) < 1.0 /HPF (0-13.0) 03/10/22 18:20 Urine Bacteria (Auto) 1+ /HPF (Negative) 03/10/22 18:20 Urine Osmolality 368 Mosm/kg 03/10/22 18:20 Urine Creatinine 34.4 mg/dL (0.1-20.0) H 03/19/22 14:40 Urine Sodium 18 mmol/L 03/19/22 14:40 Urine Opiates Screen Presumptive positive 03/10/22 18:20 Urine Methadone Screen Presumptive negative 03/10/22 18:20 Ur Barbiturates Screen Presumptive negative 03/10/22 18:20 Ur Phencyclidine Scrn Presumptive negative 03/10/22 18:20 Ur Amphetamines Screen Presumptive negative 03/10/22 18:20 U Benzodiazepines Scrn Presumptive negative 03/10/22 18:20 Urine Cocaine Screen Presumptive negative 03/10/22 18:20 U Marijuana (THC) Screen Presumptive negative 03/10/22 18:20 Drugs of Abuse Note Disclamer 03/10/22 18:20 Copper 118 mcg/dL (70-175) 03/12/22 18:40 Syphilis IgG/IgM Ab Nonreactive (NonReactive) 03/12/22 18:40 SARS-CoV-2 (PCR) Negative (Negative) 03/10/22 09:50 Blood Type O POSITIVE 03/15/22 09:42 Antibody Screen Negative 03/15/22 09:42 Crossmatch See Detail 03/15/22 09:42 Microbiology: Microbiology 03/18/22 Unknown Urine,Catheterized - Indwelling Catheter Urine Culture - Final NO GROWTH AFTER 48 HOURS 03/18/22 15:12 Peripheral/Venous Blood Culture - Preliminary NO GROWTH AFTER 72 HOURS 03/18/22 15:12 Peripheral/Venous Blood Culture - Preliminary NO GROWTH AFTER 72 HOURS [place]/IV: Voiding Method Indwelling Catheter Active Medications - Current Medications Current Medications: Generic Name Dose Route Start Last Admin Trade Name Freq PRN Reason Stop Dose Admin Acetaminophen 650 mg 03/13/22 05:50 03/19/22 18:38 Acetaminophen 325 Mg/10.15 Ml Oral Liqd Unit Dose FEEDTUBE 650 mg Q6H PRN Administration Non Cardiac Pain or Temp>100.5 Bisacodyl 10 mg 03/15/22 10:00 Bisacodyl 5 Mg Tab PO QDAY PRN Constipation Famotidine 10 mg 03/22/22 10:00 03/22/22 09:15 Famotidine 10 Mg Tab FEEDTUBE 10 mg BID SHAHBAZ Administration Fentanyl 50 mcg 03/10/22 10:58 03/14/22 20:48 Fentanyl 100 Mcg/2 Ml Inj IV 50 mcg Q10MIN PRN Administration ANALGESIA Hydrophilic Ointment 1 applic 03/10/22 11:03 Lip Therapy Vaseline TP Q2HR PRN Dry Lips Fentanyl Citrate 2,000 mcg in 100 mls @ 4.16 mls/hr 03/10/22 11:00 07/07/22 09:18 Fentanyl Drip Premix IV 4 mcg/kg/hr TITR SHAHBAZ 16.64 mls/hr Administration Protocol 1 MCG/KG/HR NORepinephrine/NS 8 MG-250 ML 8 mg in 250 mls @ 3.75 mls/hr 03/10/22 11:00 03/21/22 21:35 Norepinephrine/Ns 8 Mg-250 Ml (Double Conc) IV 10 mcg/min TITRATE SHAHBAZ 18.75 mls/hr Administration Protocol 2 MCG/MIN Vasopressin 20 unit/ Sodium 101 mls @ 9.09 mls/hr 03/21/22 15:00 03/22/22 00:03 Chloride IV 0.03 units/min TITR SHAHBAZ 9.09 mls/hr Administration Protocol 0.03 UNITS/MIN Levofloxacin/Dextrose 750 mg in 150 mls @ 100 mls/hr 03/23/22 12:00 Levaquin 750mg/150ml IV 03/27/22 13:29 Q48H SHAHBAZ Protocol Heparin Sodium/Sodium Chloride 25,000 unit in 500 mls @ 24 mls/hr 03/22/22 09:00 03/22/22 09:16 Heparin/ 0.45% Nacl-25,000 Unit/500 Ml IV 1,200 units/hr TITR SHAHBAZ 24 mls/hr Administration Protocol 1,200 UNITS/HR Metronidazole 500 mg in 100 mls @ 100 mls/hr 03/22/22 09:00 03/22/22 09:16 Flagyl 500 Mg/100 Ml IV 100 mls/hr Q8H SHAHBAZ Administration Protocol Levetiracetam 500 mg 03/12/22 10:00 03/22/22 09:15 Levetiracetam 500 Mg/5 Ml Oral Liqd FEEDTUBE 500 mg BID SHAHBAZ Administration Magnesium Hydroxide 30 ml 03/10/22 02:56 Magnesium Hydroxide (Mom) Oral Liqd Udc PO Q4H PRN Constipation Midodrine 15 mg 03/21/22 16:00 03/22/22 11:47 Midodrine 5 Mg Tab PO 15 mg TID@0800,1200,1600 SHAHBAZ Administration Multi-Ingred Cream/Lotion/Oil/Oint 1 applic 03/10/22 11:03 Mineral Oil/Petrolatum, White Ophth Oint 3.5 Gm OU Q4HR PRN Dry Eye(s) Ondansetron HCl 4 mg 03/10/22 02:56 Ondansetron 4 Mg/2 Ml Inj IV Q8H PRN Nausea And Vomiting Scopolamine 1 each 03/21/22 10:00 03/21/22 10:28 Scopolamine Transdermal Patch 72 Hr TD 1 each Q3D SHAHBAZ Administration Sodium Chloride 10 ml 03/10/22 10:00 03/22/22 11:15 Sodium Chloride 0.9% 10 Ml Flush Syringe IV 10 ml BID SHAHBAZ Administration Sodium Chloride 10 ml 03/10/22 02:56 Sodium Chloride 0.9% 10 Ml Flush Syringe IV PRN PRN LINE FLUSH Vancomycin HCl 500 mg 03/22/22 12:00 03/22/22 11:47 Vancomycin 250 Mg/10 Ml Oral Liqd PO 500 mg Q6HR SHAHBAZ Administration Protocol Nutrition/Malnutrition Assess - Dietary Evaluation Nutrition/Malnutrition Findings: Nutrition Notes Start: 03/10/22 12:22 Freq: Status: Active Protocol: Document 03/21/22 15:08 JOSH (Rec: 03/21/22 15:18 JOSH [id number]) Nutrition Notes Initial or Follow up Reassessment Current Diagnosis Hypertension,Respiratory Failure,Malnutrition Other Pertinent Diagnosis MS, CAP, Seizure, Metabolic Encephalopathy, Septic Shock, NSTEMI, UTI ... Current Diet TF-Vital AF 1.2 En @ 60 ml/hr (since D 03/10). Labs/Tests 03/21: Na 135, K 5.7, Cl 97.4, CO2 21, BUN 104, Crea 1.3, Glu 118. Pertinent Medications 03/21: Vasopressin 20U, others nutritionally unremarkable. Height 5 ft 6 in Weight 83.2 kg [place] Body Weight (kg) 59.09 BMI 29.6 Weight change and time frame No body weight change reported in 11 days. Weight Status Overweight Subjective/Other Information RD consult for routine F/U on TF tolerance/continuation. TF continues as prescribed, and well tolerated, according to RN notes. Pt remains on Mechanical Ventilation, O2 saturation @ 96%, according to Physical Assessment History notes. Pt presents bilateral-LE pitting edema 3+, according to Physical Assessment History notes. Pt presents an unspecified area of concern for skin risk at the time, according to Physical Assessment History notes. Percent of energy/protein needs met: Prescribed TF-Vital AF 1.2 En @ 60 ml/hr provides for energy/protein needs (1,728 Kcal/108 g) during LOS, 100% Kcal; 100% AA. Burn Absent Trauma Absent GI Symptoms None Food Allergy No Skin Integrity/Comment Unspecified area of concern. 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 Yes Is Patient Ambulatory and/or Out of Bed No REE-([facility]-confined to bed) 1713.168 Calculation Used for Recommendations [facility] Additional Notes Protein: 1-1.2 g/Kg ABW; 100- 166 g/day. Fluids: 1 ml/Kcal, or as per MD. Nutrition Intervention Nutrition Support: Continue TF-Vital AF 1.2 En @ 60 ml/hr. Flush: 100 ml water Q 4 hr, or as per MD. Kcal 1,728 Protein (gm) 108 Carbohydrates (gm) 159 Fat (gm) 78 Fluid (mL) 1,168 Fiber (gm) 7 % RDI: 100% Kcal; 100% AA. Goal #1 Provide at least 75% of energy /protein needs through Enteral Feeding during LOS. Follow-Up By: 03/28/22 Additional Comments Continue monitoring TF tolerance, Ventilation Status, Pressor support, and BM.
--- NOTE | 2022-03-15 11:29 | Progress Note ---
Assessment and Plan Electrolyte Imbalance - Hold all IVF. Pharm to max concentrate all IV meds in NS. May consider ADH antagonist if HypoNa persists Hypotension - Optimize vasopressors as tolerated. Still suggest to hold Diuretics until BP improves Anemia - Consider PRBC transfusion Pneumonia/Resp Failure - Vent Mx per Pulm Multiple Sclerosis - F/u Mx per Neuro Subjective Date of service: 03/15/22 Principal diagnosis: AHRF; Multifocal Pneumonia; Septic shock; NSTEMI; AMS; Seizures Objective - Vital Signs Vital signs: Vital Signs - 12hr 03/14/22 03/14/22 03/15/22 23:30 23:45 00:00 Temperature 99.2 F Pulse Rate 100 H 101 H 101 H Respiratory 25 H 25 H 23 Rate Blood Pressure 86/59 88/57 90/59 O2 Sat by Pulse 96 95 97 Oximetry 03/15/22 03/15/22 03/15/22 00:15 00:16 00:30 Temperature Pulse Rate 101 H 101 H 101 H Respiratory 22 23 Rate Blood Pressure 92/55 92/55 84/58 O2 Sat by Pulse 99 99 100 Oximetry 03/15/22 03/15/22 03/15/22 00:45 01:00 01:15 Temperature Pulse Rate 102 H 105 H 103 H Respiratory 25 H 29 H 28 H Rate Blood Pressure 94/61 94/61 85/58 O2 Sat by Pulse 100 86 94 Oximetry 03/15/22 03/15/22 03/15/22 01:30 01:46 02:00 Temperature Pulse Rate 103 H 103 H 103 H Respiratory 27 H 26 H 24 Rate Blood Pressure 88/56 86/54 86/55 O2 Sat by Pulse 93 97 98 Oximetry 03/15/22 03/15/22 03/15/22 02:15 02:30 02:45 Temperature Pulse Rate 102 H 103 H 103 H Respiratory 24 24 26 H Rate Blood Pressure 82/52 81/53 82/56 O2 Sat by Pulse 96 97 95 Oximetry 03/15/22 03/15/22 03/15/22 03:00 03:16 03:30 Temperature Pulse Rate 108 H 103 H 104 H Respiratory 21 26 H 27 H Rate Blood Pressure 80/55 93/58 80/56 O2 Sat by Pulse 100 96 94 Oximetry 03/15/22 03/15/22 03/15/22 03:32 03:45 03:55 Temperature 99.2 F Pulse Rate 103 H 104 H Respiratory 25 H Rate Blood Pressure 83/58 83/56 O2 Sat by Pulse 97 98 Oximetry 03/15/22 03/15/22 03/15/22 04:00 04:15 04:30 Temperature Pulse Rate 103 H 104 H 104 H Respiratory 23 23 22 Rate Blood Pressure 83/58 81/57 84/56 O2 Sat by Pulse 96 97 99 Oximetry 03/15/22 03/15/22 03/15/22 04:45 05:00 05:15 Temperature Pulse Rate 104 H 106 H 109 H Respiratory 21 25 H 26 H Rate Blood Pressure 83/56 81/54 96/64 O2 Sat by Pulse 100 89 94 Oximetry 03/15/22 03/15/22 03/15/22 05:30 05:45 06:00 Temperature Pulse Rate 108 H 105 H 106 H Respiratory 23 24 22 Rate Blood Pressure 92/60 88/59 90/57 O2 Sat by Pulse 100 100 100 Oximetry 03/15/22 03/15/22 03/15/22 06:15 06:30 06:45 Temperature Pulse Rate 108 H 106 H 105 H Respiratory 23 23 24 Rate Blood Pressure 80/56 81/55 82/54 O2 Sat by Pulse 100 99 99 Oximetry 03/15/22 03/15/22 03/15/22 07:00 07:15 07:25 Temperature Pulse Rate 104 H 112 H 113 H Respiratory 24 31 H Rate Blood Pressure 85/56 99/67 99/67 O2 Sat by Pulse 99 93 87 Oximetry 03/15/22 03/15/22 03/15/22 07:30 07:45 08:00 Temperature Pulse Rate 113 H 108 H 108 H Respiratory 28 H 28 H 25 H Rate Blood Pressure 88/52 85/53 86/50 O2 Sat by Pulse 89 93 98 Oximetry 03/15/22 03/15/22 03/15/22 08:01 08:15 08:30 Temperature 100.6 F H Pulse Rate 108 H 109 H Respiratory 27 H 27 H Rate Blood Pressure 88/56 84/53 O2 Sat by Pulse 97 97 Oximetry 03/15/22 03/15/22 03/15/22 08:45 09:00 09:15 Temperature Pulse Rate 109 H 107 H 107 H Respiratory 28 H 24 23 Rate Blood Pressure 81/50 78/48 86/56 O2 Sat by Pulse 95 96 97 Oximetry 06/3003/15/22 03/15/22 09:30 09:45 10:00 Temperature Pulse Rate 108 H 108 H 108 H Respiratory 28 H 27 H 26 H Rate Blood Pressure 95/64 97/66 96/67 O2 Sat by Pulse 96 98 97 Oximetry 03/15/22 10:15 Temperature Pulse Rate 108 H Respiratory 25 H Rate Blood Pressure 105/67 O2 Sat by Pulse 97 Oximetry - General Appearance General appearance: sedated on ventilator Neck: supple Respiratory: Present: Other (Good air entry, basal rales) Cardiology: regular, S1S2 Gastrointestinal: other (Soft) Neurologic: other (Sedated & poorly responsive) - Lab 03/15/22 04:10 03/15/22 04:10 Most recent lab results ABG pH 7.380 pH Units (7.350-7.450) 03/15/22 05:55 ABG pCO2 37.6 mm Hg 03/15/22 05:55 ABG pO2 119.0 mm Hg (80.0-90.0) H 03/15/22 05:55 ABG HCO3 21.7 mmol/L (20.0-26.0) 03/15/22 05:55 ABG O2 Saturation 98.2 % (95.0-99.0) 03/15/22 05:55 Calcium 7.4 mg/dL (8.4-10.2) L 03/15/22 04:10 Phosphorus 1.20 mg/dL (2.5-4.5) L 03/15/22 04:10 Magnesium 1.90 mg/dL (1.7-2.3) 03/15/22 04:10 Urine Sodium 64 mmol/L 03/10/22 18:20 Medications & Allergies - Medications Allergies/Adverse Reactions: Allergies Penicillins Allergy (Mild, Verified 01/11/19 12:20) Rash . Home Medications: Home Medications Medication Instructions Recorded Confirmed Last Taken Type Ciprofloxacin HCl [Ciprofloxacin 500 mg PO Q12H #14 tab 01/11/19 Unknown Rx TAB] levETIRAcetam [Keppra TAB] 500 mg PO BID #60 tablet 01/11/19 Unknown Rx Active Medications: Generic Name Dose Route Start Last Admin Trade Name Freq PRN Reason Stop Dose Admin Acetaminophen 650 mg 03/13/22 05:50 03/13/22 06:10 Acetaminophen 325 Mg/10.15 Ml Oral Liqd Unit Dose FEEDTUBE 650 mg Q6H PRN Administration Non Cardiac Pain or Temp>100.5 Bisacodyl 10 mg 03/15/22 10:00 Bisacodyl 5 Mg Tab PO QDAY PRN Constipation Enoxaparin Sodium 40 mg 03/12/22 10:00 03/15/22 09:25 Enoxaparin 40 Mg/0.4 Ml Inj SUB-Q 40 mg QDAY@1000 SHAHBAZ Administration Protocol Famotidine 20 mg 03/12/22 10:00 03/15/22 09:25 Famotidine 20 Mg Tab FEEDTUBE 20 mg BID SHAHBAZ Administration Fentanyl 50 mcg 03/10/22 10:58 03/14/22 20:48 Fentanyl 100 Mcg/2 Ml Inj IV 50 mcg Q10MIN PRN Administration ANALGESIA Furosemide 40 mg 03/15/22 09:00 03/15/22 09:25 Furosemide 40 Mg/4 Ml Inj IV 03/15/22 18:01 40 mg 0600,1800 SHAHBAZ Administration Hydrophilic Ointment 1 applic 03/10/22 11:03 Lip Therapy Vaseline TP Q2HR PRN Dry Lips Fentanyl Citrate 2,000 mcg in 100 mls @ 4.16 mls/hr 03/10/22 11:00 03/15/22 07:16 Fentanyl Drip Premix IV 3 mcg/kg/hr TITR SHAHBAZ 12.48 mls/hr Administration Protocol 1 MCG/KG/HR NORepinephrine/NS 8 MG-250 ML 8 mg in 250 mls @ 3.75 mls/hr 03/10/22 11:00 03/14/22 23:00 Norepinephrine/Ns 8 Mg-250 Ml (Double Conc) IV 4 mcg/min TITRATE SHAHBAZ 7.5 mls/hr Titration Protocol 2 MCG/MIN Meropenem/Sodium Chloride 1 gram in 100 mls @ 100 mls/hr 03/14/22 22:00 03/15/22 07:18 Merrem/Ns 1 Gram/100 Ml IV 100 mls/hr Q8H SHAHBAZ Administration Protocol Sodium Phosphate 45 mmol/ 515 mls @ 84 mls/hr 03/15/22 09:00 03/15/22 10:10 Sodium Chloride IV 03/15/22 15:07 84 mls/hr ONCE ONE Administration Levetiracetam 500 mg 03/12/22 10:00 03/15/22 09:25 Levetiracetam 500 Mg/5 Ml Oral Liqd FEEDTUBE 500 mg BID SHAHBAZ Administration Magnesium Hydroxide 30 ml 03/10/22 02:56 Magnesium Hydroxide (Mom) Oral Liqd Udc PO Q4H PRN Constipation Multi-Ingred Cream/Lotion/Oil/Oint 1 applic 03/10/22 11:03 Mineral Oil/Petrolatum, White Ophth Oint 3.5 Gm OU Q4HR PRN Dry Eye(s) Ondansetron HCl 4 mg 03/10/22 02:56 Ondansetron 4 Mg/2 Ml Inj IV Q8H PRN Nausea And Vomiting Polyethylene Glycol 17 gm 03/12/22 10:00 03/15/22 09:25 Polyethylene Glycol 3350 17 Gm Powder FEEDTUBE 17 gm QDAY SHAHBAZ Administration Senna/Docusate Sodium 2 tab 03/14/22 10:00 03/15/22 10:11 Sennosides/Docusate Sodium 8.6/50 Mg Tab FEEDTUBE 2 tab Q12H SHAHBAZ Administration Sodium Chloride 10 ml 03/10/22 10:00 03/15/22 09:26 Sodium Chloride 0.9% 10 Ml Flush Syringe IV 10 ml BID SHAHBAZ Administration Sodium Chloride 10 ml 03/10/22 02:56 Sodium Chloride 0.9% 10 Ml Flush Syringe IV PRN PRN LINE FLUSH
--- NOTE | 2022-03-15 12:47 | Progress Note ---
Assessment and Plan - Patient Problems (1) Respiratory failure Current Visit: Yes Status: Acute Plan to address problem: Patient has a history of multiple sclerosis, no reported cardiac history, presented to the hospital with respiratory insufficiency and currently on the vent in the ICU. Chest x-ray showed confluent consolidations in both lung fraire consistent with a severe bilateral pneumonia. A COVID-19 test was positive. Cardiac consultation was requested for the finding of a nonspecific, isolated rise in troponin levels. EKG show sinus rhythm with no acute ischemic changes. Echocardiogram done on this presentation shows left ventricular systolic ejection fraction at the lower limits of normal 50%. No acute cardiovascular issues at this time, will continue supportive management of cardiac status, defer treatment of respiratory failure and bilateral pneumonia to internal medicine and pulmonary. Subjective Date of service: 03/15/22 Principal diagnosis: AHRF; Multifocal Pneumonia; Septic shock; NSTEMI; AMS; Seizures Interval history: No new cardiac events reported. Patient is sedated, on the vent in the ICU. Objective Vital Signs Temp Pulse Pulse Resp BP Pulse Ox 03/15/22 12:15 106 H 27 H 90/61 92 03/15/22 12:00 107 H 26 H 87/60 92 03/15/22 11:45 107 H 27 H 87/62 93 03/15/22 11:41 100.9 F H 03/15/22 11:34 105 H 101/67 988 H 03/15/22 11:30 107 H 24 101/67 100 03/15/22 11:15 106 H 21 96/63 99 03/15/22 11:00 106 H 22 90/60 99 03/15/22 10:45 108 H 24 93/64 98 03/15/22 10:30 107 H 22 98/67 99 03/15/22 10:15 108 H 25 H 105/67 97 03/15/22 10:00 108 H 26 H 96/67 97 03/15/22 09:45 108 H 27 H 97/66 98 03/15/22 09:30 108 H 28 H 95/64 96 03/15/22 09:15 107 H 23 86/56 97 03/15/22 09:00 107 H 24 78/48 96 03/15/22 08:45 109 H 28 H 81/50 95 03/15/22 08:30 109 H 27 H 84/53 97 03/15/22 08:15 108 H 27 H 88/56 97 03/15/22 08:01 100.6 F H 03/15/22 08:00 108 H 25 H 86/50 98 03/15/22 07:45 108 H 28 H 85/53 93 03/15/22 07:30 113 H 28 H 88/52 89 03/15/22 07:25 113 H 99/67 87 03/15/22 07:15 112 H 31 H 99/67 93 03/15/22 07:00 104 H 24 85/56 99 03/15/22 06:45 105 H 24 82/54 99 03/15/22 06:30 106 H 23 81/55 99 03/15/22 06:15 108 H 23 80/56 100 03/15/22 06:00 106 H 22 90/57 100 03/15/22 05:45 105 H 24 88/59 100 03/15/22 05:30 108 H 23 92/60 100 03/15/22 05:15 109 H 26 H 96/64 94 03/15/22 05:00 106 H 25 H 81/54 89 03/15/22 04:45 104 H 21 83/56 100 03/15/22 04:30 104 H 22 84/56 99 03/15/22 04:15 104 H 23 81/57 97 03/15/22 04:00 103 H 23 83/58 96 03/15/22 03:55 104 H 83/56 98 03/15/22 03:45 103 H 25 H 83/58 97 03/15/22 03:32 99.2 F 03/15/22 03:30 104 H 27 H 80/56 94 03/15/22 03:16 103 H 26 H 93/58 96 03/15/22 03:00 108 H 21 80/55 100 03/15/22 02:45 103 H 26 H 82/56 95 03/15/22 02:30 103 H 24 81/53 97 03/15/22 02:15 102 H 24 82/52 96 03/15/22 02:00 103 H 24 86/55 98 03/15/22 01:46 103 H 26 H 86/54 97 03/15/22 01:30 103 H 27 H 88/56 93 03/15/22 01:15 103 H 28 H 85/58 94 03/15/22 01:00 105 H 29 H 94/61 86 03/15/22 00:45 102 H 25 H 94/61 100 03/15/22 00:30 101 H 23 84/58 100 03/15/22 00:16 101 H 92/55 99 03/15/22 00:15 101 H 22 92/55 99 03/15/22 00:00 99.2 F 101 H 23 90/59 97 03/14/22 23:45 101 H 25 H 88/57 95 03/14/22 23:30 100 H 25 H 86/59 96 03/14/22 23:15 101 H 24 88/58 97 03/14/22 23:00 102 H 102 H 23 88/62 99 03/14/22 22:45 100 H 21 96/65 99 03/14/22 22:30 101 H 25 H 95/69 100 03/14/22 22:15 101 H 20 95/67 100 03/14/22 22:00 101 H 25 H 98/68 100 03/14/22 21:45 99 H 24 95/63 100 03/14/22 21:30 101 H 21 94/63 100 03/14/22 21:15 102 H 24 94/63 98 03/14/22 21:00 104 H 20 96/76 95 03/14/22 20:45 103 H 24 93/67 95 03/14/22 20:30 102 H 27 H 102/67 96 03/14/22 20:25 98 03/14/22 20:22 99 H 98/68 100 03/14/22 20:15 99 H 21 98/68 100 03/14/22 20:00 99.5 F 99 H 17 96/65 100 03/14/22 19:45 98 H 19 95/67 100 03/14/22 19:30 99 H 21 95/67 100 03/14/22 19:24 99 H 100 03/14/22 19:15 99 H 20 91/67 100 03/14/22 19:00 100 H 22 94/64 100 03/14/22 18:45 99 H 20 86/59 100 03/14/22 18:30 100 H 22 92/66 100 03/14/22 18:15 99 H 18 92/66 99 03/14/22 18:00 100 H 21 94/65 100 03/14/22 17:45 98 H 20 95/69 100 03/14/22 17:30 96 H 21 82/56 100 03/14/22 17:15 96 H 20 80/57 100 03/14/22 17:00 96 H 20 89/58 100 03/14/22 16:52 100.6 F H 03/14/22 16:45 101 H 24 93/62 100 03/14/22 16:30 104 H 21 96/65 100 03/14/22 16:15 102 H 23 93/62 100 03/14/22 16:00 101 H 100 H 19 96/66 100 03/14/22 15:45 101 H 15 92/65 100 03/14/22 15:30 103 H 23 92/65 100 03/14/22 15:15 105 H 19 95/59 86 03/14/22 15:00 102 H 24 95/59 94 03/14/22 14:45 102 H 23 93/59 98 03/14/22 14:30 102 H 19 95/60 99 03/14/22 14:15 101 H 16 92/67 97 03/14/22 14:00 102 H 24 94/64 99 03/14/22 13:45 100 H 23 94/62 95 03/14/22 13:30 103 H 22 97/63 96 03/14/22 13:15 103 H 24 102/62 98 03/14/22 13:00 102 H 21 92/64 94 - Physical Examination General: Other (intubated on mechanical ventilator) HEENT: Positive: PERRL Neck: Positive: neck supple, trachea midline. Negative: JVD/HJR Cardiac: Positive: Reg Rate and Rhythm Lungs: Positive: Decreased Breath Sounds Neuro: Positive: Other (Intubated, sedated on the vent) Abdomen: Positive: Soft Skin: Positive: Clear, Other (multiple wounds) Extremities: Absent: edema - Labs and Meds Cardiac Enzymes 03/15/22 Range/Units 04:10 AST 28 (5-40) units/L CBC 03/15/22 Range/Units 04:10 WBC 12.9 H (4.5-11.0) K/mm3 RBC 2.55 L (3.65-5.03) M/mm3 Hgb 7.1 L (10.1-14.3) gm/dl Hct 21.5 L (30.3-42.9) % Plt Count 203 (140-440) K/mm3 Comprehensive Metabolic Panel 03/14/22 03/15/22 Range/Units 16:15 04:10 Sodium 128 L 127 L (137-145) mmol/L Potassium 5.0 D 4.8 (3.6-5.0) mmol/L Chloride 97.0 L 96.3 L (98-107) mmol/L Carbon Dioxide 22 21 L (22-30) mmol/L BUN 31 H 33 H (7-17) mg/dL Creatinine 0.6 0.6 (0.6-1.2) mg/dL Glucose 114 H 126 H (65-100) mg/dL Calcium 7.0 L 7.4 L (8.4-10.2) mg/dL AST 28 (5-40) units/L ALT 10 (7-56) units/L Alkaline Phosphatase 71 (35-129) units/L Total Protein 5.3 L (6.3-8.2) g/dL Albumin 2.1 L (3.9-5) g/dL - Allied health notes Allied health notes reviewed: RT
--- NOTE | 2022-03-15 13:28 | Progress Note ---
Assessment and Plan Acute Hypoxemic Respiratory Failure on MVS Multifocal Pneumonia/CAP Severe Hyponatremia Septic shock Lactic Acidosis NSTEMI/Elevated Troponin Elevated BNP Hypokalemia R/o COVID Acute Metabolic Encephalopathy H/o Seizure Disorder Elevated D-Dimer Moderate Protein Calorie Malnutrition - increased peep to 12 and FiO2 to 100% as desaturating - repeat ABG at 9 pm - continue gentle diuresis prn targeting even to slightly negative fluid balance acutely (will discuss Albumin and lasix with roentgenology teacher re: 3rd spacing and also for BP support) - follow electrolytes & creatinine levels - optimize nutritional status - receiving NaPhos supplementation - started on Cefepime; de-escalate per ID recommendations - continue care as below otherwise; - titrate vasopressor support to keep MAP>65 - Daily SAT and SBT assessment as tolerated - continue to wean supplemental oxygen for target O2 sat's > 90% acutely - VAP bundle addressed - continue lung protective strategies - continue bronchodilators with pulmonary hygiene per RT - wean per pulmonary driven protocols otherwise - continue accuchecks with glycemic control per SSI (While critically ill target blood glucose of 140-180 mg/dL; avoid hypoglycemia) - sedation prn for target RASS 0 to -1 - avoid nephrotoxins, renally dose all medications - continue to avoid benzodiazepine's, reduce the possibility of delirium - complete AB's per ID rec's - prn analgesia per CPOT score - Maintenance of sleep-wake cycle, avoid delirium - continue enteral nutritional support at goal rate as tolerated - G.I. & VTE prophylaxis - PT/OT/ROM exercises - continue mobility protocols for pressure ulcer prophylaxis - Monitor hemodynamics closely - continue other care per attending / other consultants - discharge planning ongoing concurrently COVID SPECIFIC INTERVENTIONS - COVID-19 PCR negative .... Re-evaluate in am & prn CONDITION: CRITICAL PROGNOSIS: GUARDED CODE STATUS: FULL CODE The high probability of a clinically significant, sudden or life-threatening deterioration of the [respiratory, cardiovascular & neurologic] system(s) required my full and direct attention, intervention and personal management. The aggregate critical care time was [35] minutes without overlap. Time includes spent on; [x] Data Review and interpretation [x] Patient assessment and monitoring of vital signs [x] Documentation [x] Medication orders and management Subjective Date of service: 03/15/22 Principal diagnosis: AHRF; Multifocal Pneumonia; Septic shock; NSTEMI; AMS; Seizures Interval history: Patient is seen today for: Acute Hypoxemic Respiratory Failure; Multifocal Pneumonia/CAP; Hyponatremia; Septic shock; NSTEMI; AMS; Seizure Disorder; Moderate Protein Calorie Malnutrition Seen and examined at bedside; 24hour events reviewed; nursing and respiratory care staff consulted; no adverse overnight events reported to me; resting peacefully in bed; remains on Levophed @ 6 mics/min; FiO2 up to 90% with peep at 10 cm H2O; anasarca is persistent and good response to diuretic's but still positive fluid balance; CXR pattern, consistent with florid pulmonary edema but likely ARDS element Objective Vital Signs - 12hr 03/15/22 03/15/22 03/15/22 01:30 01:46 02:00 Temperature Pulse Rate 103 H 103 H 103 H Respiratory 27 H 26 H 24 Rate Blood Pressure 88/56 86/54 86/55 O2 Sat by Pulse 93 97 98 Oximetry 03/15/22 03/15/22 03/15/22 02:15 02:30 02:45 Temperature Pulse Rate 102 H 103 H 103 H Respiratory 24 24 26 H Rate Blood Pressure 82/52 81/53 82/56 O2 Sat by Pulse 96 97 95 Oximetry 03/15/22 03/15/22 03/15/22 03:00 03:16 03:30 Temperature Pulse Rate 108 H 103 H 104 H Respiratory 21 26 H 27 H Rate Blood Pressure 80/55 93/58 80/56 O2 Sat by Pulse 100 96 94 Oximetry 03/15/22 03/15/22 03/15/22 03:32 03:45 03:55 Temperature 99.2 F Pulse Rate 103 H 104 H Respiratory 25 H Rate Blood Pressure 83/58 83/56 O2 Sat by Pulse 97 98 Oximetry 03/15/22 03/15/22 03/15/22 04:00 04:15 04:30 Temperature Pulse Rate 103 H 104 H 104 H Respiratory 23 23 22 Rate Blood Pressure 83/58 81/57 84/56 O2 Sat by Pulse 96 97 99 Oximetry 03/15/22 03/15/22 03/15/22 04:45 05:00 05:15 Temperature Pulse Rate 104 H 106 H 109 H Respiratory 21 25 H 26 H Rate Blood Pressure 83/56 81/54 96/64 O2 Sat by Pulse 100 89 94 Oximetry 03/15/22 03/15/22 03/15/22 05:30 05:45 06:00 Temperature Pulse Rate 108 H 105 H 106 H Respiratory 23 24 22 Rate Blood Pressure 92/60 88/59 90/57 O2 Sat by Pulse 100 100 100 Oximetry 03/15/22 03/15/22 03/15/22 06:15 06:30 06:45 Temperature Pulse Rate 108 H 106 H 105 H Respiratory 23 23 24 Rate Blood Pressure 80/56 81/55 82/54 O2 Sat by Pulse 100 99 99 Oximetry 03/15/22 03/15/22 03/15/22 07:00 07:15 07:25 Temperature Pulse Rate 104 H 112 H 113 H Respiratory 24 31 H Rate Blood Pressure 85/56 99/67 99/67 O2 Sat by Pulse 99 93 87 Oximetry 03/15/22 03/15/22 03/15/22 07:30 07:45 08:00 Temperature Pulse Rate 113 H 108 H 108 H Respiratory 28 H 28 H 25 H Rate Blood Pressure 88/52 85/53 86/50 O2 Sat by Pulse 89 93 98 Oximetry 03/15/22 03/15/22 03/15/22 08:01 08:15 08:30 Temperature 100.6 F H Pulse Rate 108 H 109 H Respiratory 27 H 27 H Rate Blood Pressure 88/56 84/53 O2 Sat by Pulse 97 97 Oximetry 03/15/22 03/15/22 03/15/22 08:45 09:00 09:15 Temperature Pulse Rate 109 H 107 H 107 H Respiratory 28 H 24 23 Rate Blood Pressure 81/50 78/48 86/56 O2 Sat by Pulse 95 96 97 Oximetry 03/15/22 03/15/22 03/15/22 09:30 09:45 10:00 Temperature Pulse Rate 108 H 108 H 108 H Respiratory 28 H 27 H 26 H Rate Blood Pressure 95/64 97/66 96/67 O2 Sat by Pulse 96 98 97 Oximetry 03/15/22 03/15/22 03/15/22 10:15 10:30 10:45 Temperature Pulse Rate 108 H 107 H 108 H Respiratory 25 H 22 24 Rate Blood Pressure 105/67 98/67 93/64 O2 Sat by Pulse 97 99 98 Oximetry 03/15/22 03/15/22 03/15/22 11:00 11:15 11:30 Temperature Pulse Rate 106 H 106 H 107 H Respiratory 22 21 24 Rate Blood Pressure 90/60 96/63 101/67 O2 Sat by Pulse 99 99 100 Oximetry 03/15/22 03/15/22 03/15/22 11:34 11:41 11:45 Temperature 100.9 F H Pulse Rate 105 H 107 H Respiratory 27 H Rate Blood Pressure 101/67 87/62 O2 Sat by Pulse 988 H 93 Oximetry 03/15/22 03/15/22 12:00 12:15 Temperature Pulse Rate 107 H 106 H Respiratory 26 H 27 H Rate Blood Pressure 87/60 90/61 O2 Sat by Pulse 92 92 Oximetry Constitutional: no acute distress, alert Eyes: non-icteric ENT: oropharynx moist, other (ETT 24 cm BLANCA) Effort: mildly labored Ascultation: Bilateral: rales Percussion: Bilateral: not dull Cardiovascular: regular rate and rhythm Gastrointestinal: normoactive bowel sounds, soft, non-tender, non-distended Integumentary: normal Extremities: no cyanosis, no edema, pulses normal, no ischemia or petechiae Neurologic: pupils equal and round, unable to assess, other (weak) Psychiatric: other (unable to assess re: AMS) CBC and BMP: 03/16/22 04:50 03/16/22 04:50 ABG, PT/INR, D-dimer: ABG ABG pH 7.380 pH Units (7.350-7.450) 03/15/22 05:55 ABG pCO2 37.6 mm Hg 03/15/22 05:55 ABG pO2 119.0 mm Hg (80.0-90.0) H 03/15/22 05:55 ABG O2 Saturation 98.2 % (95.0-99.0) 03/15/22 05:55 PT/INR, D-dimer PT 14.9 Sec. (12.2-14.9) 03/10/22 01:25 INR 1.03 (0.87-1.13) 03/10/22 01:25 D-Dimer 787.78 ng/mlDDU (0-234) H 03/10/22 05:45 Abnormal lab findings: Abnormal Labs 03/10/22 03/10/22 03/10/22 01:19 01:25 01:25 WBC RBC Hgb Hct RDW 15.4 H Lymph % (Auto) 12.4 L Lymph # (Auto) 1.1 L Seg Neutrophils % 85.9 H Seg Neuts % (Manual) Lymphocytes % (Manual) Seg Neutrophils # Seg Neutrophils # Man Lymphocytes # (Manual) Eosinophils # (Manual) D-Dimer ABG pH ABG pO2 59.3 L ABG HCO3 16.7 L ABG O2 Saturation 92.3 L ABG Base Excess -7.8 L ABG Hemoglobin 11.4 L Oxyhemoglobin 90.8 L Sodium 119 L* Potassium 3.1 L Chloride 88.1 L Carbon Dioxide 16 L BUN Creatinine 0.3 L Glucose 146 H POC Glucose Lactic Acid Uric Acid Calcium 8.2 L Phosphorus Magnesium 1.30 L Ferritin ALT 5 L Lactate Dehydrogenase Total Creatine Kinase CK-MB (CK-2) Troponin T NT-Pro-B Natriuret Pep Total Protein 5.4 L Albumin 3.6 L Prealbumin Cholesterol LDL Cholesterol Direct HDL Cholesterol Vitamin B12 Folate Urine WBC (Auto) 03/10/22 03/10/22 03/10/22 01:25 01:25 01:25 WBC RBC Hgb Hct RDW Lymph % (Auto) Lymph # (Auto) Seg Neutrophils % Seg Neuts % (Manual) Lymphocytes % (Manual) Seg Neutrophils # Seg Neutrophils # Man Lymphocytes # (Manual) Eosinophils # (Manual) D-Dimer ABG pH ABG pO2 ABG HCO3 ABG O2 Saturation ABG Base Excess ABG Hemoglobin Oxyhemoglobin Sodium Potassium Chloride Carbon Dioxide BUN Creatinine Glucose POC Glucose Lactic Acid 3.60 H* Uric Acid Calcium Phosphorus Magnesium Ferritin ALT Lactate Dehydrogenase Total Creatine Kinase CK-MB (CK-2) 4.6 H Troponin T 0.164 H* NT-Pro-B Natriuret Pep 01400 H Total Protein Albumin Prealbumin Cholesterol 259 H LDL Cholesterol Direct 187 H HDL Cholesterol 63 H Vitamin B12 Folate Urine WBC (Auto) 03/10/22 03/10/22 03/10/22 02:43 05:45 05:45 WBC RBC Hgb Hct RDW Lymph % (Auto) Lymph # (Auto) Seg Neutrophils % Seg Neuts % (Manual) Lymphocytes % (Manual) Seg Neutrophils # Seg Neutrophils # Man Lymphocytes # (Manual) Eosinophils # (Manual) D-Dimer 787.78 H ABG pH ABG pO2 ABG HCO3 ABG O2 Saturation ABG Base Excess ABG Hemoglobin Oxyhemoglobin Sodium Potassium Chloride Carbon Dioxide BUN Creatinine Glucose POC Glucose Lactic Acid 3.70 H* 3.10 H* Uric Acid Calcium Phosphorus Magnesium Ferritin ALT Lactate Dehydrogenase Total Creatine Kinase CK-MB (CK-2) Troponin T NT-Pro-B Natriuret Pep Total Protein Albumin Prealbumin Cholesterol LDL Cholesterol Direct HDL Cholesterol Vitamin B12 Folate Urine WBC (Auto) 03/10/22 03/10/22 03/10/22 05:45 05:45 12:24 WBC RBC Hgb Hct RDW Lymph % (Auto) Lymph # (Auto) Seg Neutrophils % Seg Neuts % (Manual) Lymphocytes % (Manual) Seg Neutrophils # Seg Neutrophils # Man Lymphocytes # (Manual) Eosinophils # (Manual) D-Dimer ABG pH ABG pO2 ABG HCO3 ABG O2 Saturation ABG Base Excess ABG Hemoglobin Oxyhemoglobin Sodium 124 L Potassium 3.3 L Chloride Carbon Dioxide 11 L BUN Creatinine 0.2 L Glucose POC Glucose Lactic Acid Uric Acid Calcium 6.9 L D Phosphorus Magnesium Ferritin 219.2 H ALT Lactate Dehydrogenase 210 H Total Creatine Kinase CK-MB (CK-2) Troponin T NT-Pro-B Natriuret Pep Total Protein Albumin Prealbumin Cholesterol LDL Cholesterol Direct HDL Cholesterol Vitamin B12 Folate Urine WBC (Auto) 03/10/22 03/10/22 03/10/22 12:24 12:24 12:24 WBC RBC Hgb Hct RDW Lymph % (Auto) Lymph # (Auto) Seg Neutrophils % Seg Neuts % (Manual) Lymphocytes % (Manual) Seg Neutrophils # Seg Neutrophils # Man Lymphocytes # (Manual) Eosinophils # (Manual) D-Dimer ABG pH ABG pO2 ABG HCO3 ABG O2 Saturation ABG Base Excess ABG Hemoglobin Oxyhemoglobin Sodium 128 L Potassium Chloride Carbon Dioxide BUN Creatinine Glucose POC Glucose Lactic Acid 2.70 H* Uric Acid Calcium Phosphorus Magnesium Ferritin ALT Lactate Dehydrogenase Total Creatine Kinase 901 H CK-MB (CK-2) 15.3 H Troponin T 0.032 H D NT-Pro-B Natriuret Pep Total Protein Albumin Prealbumin Cholesterol LDL Cholesterol Direct HDL Cholesterol Vitamin B12 Folate Urine WBC (Auto) 03/10/22 03/10/22 03/10/22 12:45 13:15 18:00 WBC RBC Hgb Hct RDW Lymph % (Auto) Lymph # (Auto) Seg Neutrophils % Seg Neuts % (Manual) Lymphocytes % (Manual) Seg Neutrophils # Seg Neutrophils # Man Lymphocytes # (Manual) Eosinophils # (Manual) D-Dimer ABG pH 7.315 L ABG pO2 70.1 L ABG HCO3 15.6 L ABG O2 Saturation 93.8 L ABG Base Excess -9.5 L ABG Hemoglobin 11.0 L Oxyhemoglobin 92.4 L Sodium 129 L Potassium Chloride Carbon Dioxide 17 L BUN Creatinine 0.2 L Glucose POC Glucose Lactic Acid Uric Acid 1.6 L Calcium 7.0 L Phosphorus Magnesium Ferritin ALT Lactate Dehydrogenase Total Creatine Kinase CK-MB (CK-2) Troponin T NT-Pro-B Natriuret Pep Total Protein Albumin Prealbumin Cholesterol LDL Cholesterol Direct HDL Cholesterol Vitamin B12 Folate Urine WBC (Auto) 03/10/22 03/10/22 03/11/22 18:20 21:05 05:00 WBC 13.7 H RBC 3.44 L Hgb 9.6 L Hct 29.0 L D RDW Lymph % (Auto) 8.9 L Lymph # (Auto) Seg Neutrophils % 86.6 H Seg Neuts % (Manual) Lymphocytes % (Manual) Seg Neutrophils # 11.8 H Seg Neutrophils # Man Lymphocytes # (Manual) Eosinophils # (Manual) D-Dimer ABG pH ABG pO2 116.3 H ABG HCO3 17.2 L ABG O2 Saturation ABG Base Excess -6.4 L ABG Hemoglobin 11.0 L Oxyhemoglobin Sodium Potassium Chloride Carbon Dioxide BUN Creatinine Glucose POC Glucose Lactic Acid Uric Acid Calcium Phosphorus Magnesium Ferritin ALT Lactate Dehydrogenase Total Creatine Kinase CK-MB (CK-2) Troponin T NT-Pro-B Natriuret Pep Total Protein Albumin Prealbumin Cholesterol LDL Cholesterol Direct HDL Cholesterol Vitamin B12 Folate Urine WBC (Auto) 105.0 H 03/11/22 03/11/22 03/12/22 05:00 Unknown 04:10 WBC RBC Hgb Hct RDW Lymph % (Auto) Lymph # (Auto) Seg Neutrophils % Seg Neuts % (Manual) Lymphocytes % (Manual) Seg Neutrophils # Seg Neutrophils # Man Lymphocytes # (Manual) Eosinophils # (Manual) D-Dimer ABG pH 7.472 H 7.482 H ABG pO2 65.5 L ABG HCO3 19.8 L ABG O2 Saturation ABG Base Excess -2.9 L ABG Hemoglobin 10.1 L 8.4 L Oxyhemoglobin Sodium 132 L Potassium Chloride Carbon Dioxide 20 L BUN 6 L Creatinine 0.2 L Glucose POC Glucose Lactic Acid Uric Acid Calcium 7.5 L Phosphorus Magnesium Ferritin ALT Lactate Dehydrogenase Total Creatine Kinase CK-MB (CK-2) Troponin T NT-Pro-B Natriuret Pep Total Protein Albumin Prealbumin Cholesterol LDL Cholesterol Direct HDL Cholesterol Vitamin B12 Folate Urine WBC (Auto) 03/12/22 03/12/22 03/12/22 04:20 04:20 12:25 WBC 13.6 H RBC 3.11 L Hgb 8.7 L Hct 26.1 L RDW Lymph % (Auto) Lymph # (Auto) Seg Neutrophils % Seg Neuts % (Manual) Lymphocytes % (Manual) Seg Neutrophils # Seg Neutrophils # Man Lymphocytes # (Manual) Eosinophils # (Manual) D-Dimer ABG pH ABG pO2 ABG HCO3 ABG O2 Saturation ABG Base Excess ABG Hemoglobin Oxyhemoglobin Sodium 128 L Potassium 3.2 L Chloride 93.9 L Carbon Dioxide BUN 4 L Creatinine 0.2 L Glucose 103 H POC Glucose 116 H Lactic Acid Uric Acid Calcium 7.4 L Phosphorus 1.10 L Magnesium 2.40 H Ferritin ALT Lactate Dehydrogenase Total Creatine Kinase CK-MB (CK-2) Troponin T NT-Pro-B Natriuret Pep Total Protein Albumin Prealbumin Cholesterol LDL Cholesterol Direct HDL Cholesterol Vitamin B12 Folate Urine WBC (Auto) 03/12/22 03/12/22 03/12/22 18:40 18:40 18:40 WBC RBC Hgb Hct RDW Lymph % (Auto) Lymph # (Auto) Seg Neutrophils % Seg Neuts % (Manual) Lymphocytes % (Manual) Seg Neutrophils # Seg Neutrophils # Man Lymphocytes # (Manual) Eosinophils # (Manual) D-Dimer ABG pH ABG pO2 ABG HCO3 ABG O2 Saturation ABG Base Excess ABG Hemoglobin Oxyhemoglobin Sodium Potassium Chloride Carbon Dioxide BUN Creatinine Glucose POC Glucose Lactic Acid Uric Acid Calcium Phosphorus Magnesium Ferritin ALT Lactate Dehydrogenase Total Creatine Kinase CK-MB (CK-2) Troponin T NT-Pro-B Natriuret Pep Total Protein Albumin Prealbumin 0.044 L Cholesterol LDL Cholesterol Direct HDL Cholesterol Vitamin B12 1021 H Folate 2.15 L Urine WBC (Auto) 03/13/22 03/13/22 03/13/22 04:10 08:00 09:50 WBC 15.0 H RBC 2.82 L Hgb 8.0 L Hct 23.9 L RDW 15.5 H Lymph % (Auto) Lymph # (Auto) Seg Neutrophils % Seg Neuts % (Manual) Lymphocytes % (Manual) Seg Neutrophils # Seg Neutrophils # Man Lymphocytes # (Manual) Eosinophils # (Manual) D-Dimer ABG pH ABG pO2 98.6 H ABG HCO3 ABG O2 Saturation ABG Base Excess ABG Hemoglobin 8.3 L Oxyhemoglobin Sodium 130 L Potassium Chloride 96.1 L Carbon Dioxide BUN Creatinine 0.4 L D Glucose 148 H POC Glucose Lactic Acid Uric Acid Calcium 7.3 L Phosphorus Magnesium Ferritin ALT Lactate Dehydrogenase Total Creatine Kinase CK-MB (CK-2) Troponin T NT-Pro-B Natriuret Pep Total Protein Albumin Prealbumin Cholesterol LDL Cholesterol Direct HDL Cholesterol Vitamin B12 Folate Urine WBC (Auto) 03/13/22 03/13/22 03/14/22 20:15 22:59 04:54 WBC 17.0 H RBC 2.79 L Hgb 7.8 L Hct 23.6 L RDW 15.6 H Lymph % (Auto) Lymph # (Auto) Seg Neutrophils % Seg Neuts % (Manual) Lymphocytes % (Manual) Seg Neutrophils # Seg Neutrophils # Man Lymphocytes # (Manual) Eosinophils # (Manual) D-Dimer ABG pH ABG pO2 ABG HCO3 ABG O2 Saturation ABG Base Excess -2.9 L ABG Hemoglobin 8.0 L Oxyhemoglobin Sodium Potassium Chloride Carbon Dioxide BUN Creatinine Glucose POC Glucose 127 H Lactic Acid Uric Acid Calcium Phosphorus Magnesium Ferritin ALT Lactate Dehydrogenase Total Creatine Kinase CK-MB (CK-2) Troponin T NT-Pro-B Natriuret Pep Total Protein Albumin Prealbumin Cholesterol LDL Cholesterol Direct HDL Cholesterol Vitamin B12 Folate Urine WBC (Auto) 03/14/22 03/14/22 03/14/22 04:54 16:15 22:59 WBC RBC Hgb Hct RDW Lymph % (Auto) Lymph # (Auto) Seg Neutrophils % Seg Neuts % (Manual) Lymphocytes % (Manual) Seg Neutrophils # Seg Neutrophils # Man Lymphocytes # (Manual) Eosinophils # (Manual) D-Dimer ABG pH ABG pO2 ABG HCO3 ABG O2 Saturation ABG Base Excess ABG Hemoglobin Oxyhemoglobin Sodium 129 L 128 L Potassium 3.5 L Chloride 97.1 L 97.0 L Carbon Dioxide BUN 24 H 31 H Creatinine 0.5 L Glucose 125 H 114 H POC Glucose 134 H Lactic Acid Uric Acid Calcium 7.0 L 7.0 L Phosphorus Magnesium Ferritin ALT Lactate Dehydrogenase Total Creatine Kinase CK-MB (CK-2) Troponin T NT-Pro-B Natriuret Pep Total Protein Albumin Prealbumin Cholesterol LDL Cholesterol Direct HDL Cholesterol Vitamin B12 Folate Urine WBC (Auto) 03/15/22 03/15/22 03/15/22 04:10 04:10 05:02 WBC 12.9 H RBC 2.55 L Hgb 7.1 L Hct 21.5 L RDW 15.8 H Lymph % (Auto) Lymph # (Auto) Seg Neutrophils % Seg Neuts % (Manual) 88.0 H Lymphocytes % (Manual) 5.0 L Seg Neutrophils # Seg Neutrophils # Man 11.4 H Lymphocytes # (Manual) 0.6 L Eosinophils # (Manual) 0.5 H D-Dimer ABG pH ABG pO2 ABG HCO3 ABG O2 Saturation ABG Base Excess ABG Hemoglobin Oxyhemoglobin Sodium 127 L Potassium Chloride 96.3 L Carbon Dioxide 21 L BUN 33 H Creatinine Glucose 126 H POC Glucose 116 H Lactic Acid Uric Acid Calcium 7.4 L Phosphorus 1.20 L Magnesium Ferritin ALT Lactate Dehydrogenase Total Creatine Kinase CK-MB (CK-2) Troponin T NT-Pro-B Natriuret Pep Total Protein 5.3 L Albumin 2.1 L Prealbumin Cholesterol LDL Cholesterol Direct HDL Cholesterol Vitamin B12 Folate Urine WBC (Auto) 03/15/22 03/15/22 05:55 11:34 WBC RBC Hgb Hct RDW Lymph % (Auto) Lymph # (Auto) Seg Neutrophils % Seg Neuts % (Manual) Lymphocytes % (Manual) Seg Neutrophils # Seg Neutrophils # Man Lymphocytes # (Manual) Eosinophils # (Manual) D-Dimer ABG pH ABG pO2 119.0 H ABG HCO3 ABG O2 Saturation ABG Base Excess -3.1 L ABG Hemoglobin 8.2 L Oxyhemoglobin Sodium Potassium Chloride Carbon Dioxide BUN Creatinine Glucose POC Glucose 125 H Lactic Acid Uric Acid Calcium Phosphorus Magnesium Ferritin ALT Lactate Dehydrogenase Total Creatine Kinase CK-MB (CK-2) Troponin T NT-Pro-B Natriuret Pep Total Protein Albumin Prealbumin Cholesterol LDL Cholesterol Direct HDL Cholesterol Vitamin B12 Folate Urine WBC (Auto) Allied health notes reviewed: RT
[2022-03-15] MEDS: ACETAMINOPHEN 325 MG/10.15 ML ORAL LIQD UNIT DOSE FEEDTUBE PRN (13:37)
[2022-03-15] MEDS: NORepinephrine/NS 8 MG-250 ML 8 MG/250 ML INFUS..BTL IV SCH (15:00)
--- NOTE | 2022-03-15 17:03 | Vascular Lab Report ---
DUPLEX DOPPLER UPPER EXTREMITY VENOUS, BILATERAL INDICATION / CLINICAL INFORMATION: r/o dvt, swelling. TECHNIQUE: Duplex doppler imaging was performed through the veins of the right and left upper extremi ty using venous compression and other maneuvers. COMPARISON: None available. FINDINGS: RIGHT INTERNAL JUGULAR VEIN: Negative. RIGHT SUBCLAVIAN VEIN: Negative. RIGHT AXILLARY VEIN: Negative. RIGHT BRACHIAL VEIN: Negative. RIGHT FOREARM VEINS: Negative. RIGHT BASILIC VEIN (SUPERFICIAL): Negative. LEFT INTERNAL JUGULAR VEIN: Negative. LEFT SUBCLAVIAN VEIN: Negative. LEFT AXILLARY VEIN: Negative. LEFT BRACHIAL VEIN: Negative. LEFT FOREARM VEINS: Negative. LEFT BASILIC VEIN (SUPERFICIAL): Negative. ADDITIONAL FINDINGS: None. IMPRESSION: 1. No sonographic evidence for DVT in the right or left upper extremity. Signer Name: John Matute MD Signed: 03/15/2022 4:59 PM Workstation Name: [id number]
--- NOTE | 2022-03-15 18:42 | Progress Note ---
Assessment and Plan Cultures: Blood culture no growth so far Sputum culture no growth so far A/P: 61-year-old female past medical history of multiple sclerosis, seizures now with: #Acute sepsis: With fevers, leukocytosis. Secondary to bilateral pneumonia #Acute hypoxic respiratory failure on vent #Bilateral pneumonia #Multiple sclerosis Recs: -Escalated to meropenem considering ongoing leukocytosis and fevers -Follow fever curve and white count Thank you for the consult, we will continue to follow. Lizy Ashraf MD [facility] ([facility]) O: [phone] F: [phone] Subjective Date of service: 03/15/22 Principal diagnosis: AHRF; Multifocal Pneumonia; Septic shock; NSTEMI; AMS; Seizures Interval history: Persistent fevers, white count improving. CXR improving. Objective - Exam Narrative Exam: Physical Exam: Constitutional: intubated, sedated Head, Ears, Nose: Normocephalic, atraumatic. External ears, nose normal Eyes: Conjunctivae/corneas clear. No icterus. No ptosis. Neck: Supple, no meningeal signs Oral: ETT Cardiovascular: S1, S2 normal. Respiratory: Good air entry, clear to auscultation bilaterally GI: Soft, non-tender; bowel sounds normal. No peritoneal signs. Musculoskeletal: No pedal edema, no cyanosis. Skin: No rash or abscess Hem/Lymphatic: No palpable cervical or supraclavicular nodes. No lymphangitis Psych: Unable to assess Neurological: Unable to asses. - Constitutional Vitals: Vital Signs Temp Pulse Resp BP Pulse Ox 100.2 F H 102 H 21 90/66 100 03/15/22 16:29 03/15/22 18:15 03/15/22 18:15 03/15/22 18:15 03/15/22 18:15 Temperature -Last 24 Hours Temperature 100.2 F Temperature 100.9 F Temperature 100.6 F Temperature 99.2 F Temperature 99.2 F Temperature 99.2 F Temperature 99.5 F - Labs CBC & Chem 7: 03/15/22 04:10 03/15/22 04:10 Labs: Abnormal lab results 03/14/22 03/15/22 03/15/22 Range/Units 22:59 04:10 04:10 WBC 12.9 H (4.5-11.0) K/mm3 RBC 2.55 L (3.65-5.03) M/mm3 Hgb 7.1 L (10.1-14.3) gm/dl Hct 21.5 L (30.3-42.9) % RDW 15.8 H (13.2-15.2) % Seg Neuts % (Manual) 88.0 H (40.0-70.0) % Lymphocytes % (Manual) 5.0 L (13.4-35.0) % Seg Neutrophils # Man 11.4 H (1.8-7.7) K/mm3 Lymphocytes # (Manual) 0.6 L (1.2-5.4) K/mm3 Eosinophils # (Manual) 0.5 H (0.0-0.4) K/mm3 ABG pO2 (80.0-90.0) mm Hg ABG Base Excess (-2.0-3.0) mmol/L ABG Hemoglobin (12.0-16.0) gm/dl Sodium 127 L (137-145) mmol/L Chloride 96.3 L (98-107) mmol/L Carbon Dioxide 21 L (22-30) mmol/L BUN 33 H (7-17) mg/dL Glucose 126 H (65-100) mg/dL POC Glucose 134 H (70-105) mg/dL Calcium 7.4 L (8.4-10.2) mg/dL Phosphorus 1.20 L (2.5-4.5) mg/dL Total Protein 5.3 L (6.3-8.2) g/dL Albumin 2.1 L (3.9-5) g/dL 03/15/22 03/15/22 03/15/22 Range/Units 05:02 05:55 11:34 WBC (4.5-11.0) K/mm3 RBC (3.65-5.03) M/mm3 Hgb (10.1-14.3) gm/dl Hct (30.3-42.9) % RDW (13.2-15.2) % Seg Neuts % (Manual) (40.0-70.0) % Lymphocytes % (Manual) (13.4-35.0) % Seg Neutrophils # Man (1.8-7.7) K/mm3 Lymphocytes # (Manual) (1.2-5.4) K/mm3 Eosinophils # (Manual) (0.0-0.4) K/mm3 ABG pO2 119.0 H (80.0-90.0) mm Hg ABG Base Excess -3.1 L (-2.0-3.0) mmol/L ABG Hemoglobin 8.2 L (12.0-16.0) gm/dl Sodium (137-145) mmol/L Chloride (98-107) mmol/L Carbon Dioxide (22-30) mmol/L BUN (7-17) mg/dL Glucose (65-100) mg/dL POC Glucose 116 H 125 H (70-105) mg/dL Calcium (8.4-10.2) mg/dL Phosphorus (2.5-4.5) mg/dL Total Protein (6.3-8.2) g/dL Albumin (3.9-5) g/dL
[2022-03-15 21:08] LABS: ABG Base Excess -4.1 mmol/L (-2.0-3.0); ABG HCO3 21.6 mmol/L (20.0-26.0); ABG Methemoglobin 0.4 % (0.0-1.5); ABG Oxygen Saturation 98.2 % (95.0-99.0); ABG PCO2 42.9 mm Hg; ABG PH 7.32 pH Units (7.350-7.450); ABG PO2 122.8 mm Hg (80.0-90.0)
[2022-03-16] MEDS: MEROPENEM/NS 1 GRAM/100 ML 1 GRAM/100 ML BAG IV SCH ×3 (05:00→22:40)
[2022-03-16 05:25] LABS: Hematocrit 21.5 % (30.3-42.9); Hemoglobin 7.1 gm/dl (10.1-14.3); Mean Corpuscular HGB Conc 33 % (30-34); Mean Corpuscular Volume 85 fl (79-97); Platelet Count 262 K/mm3 (140-440); Red Blood Count 2.53 M/mm3 (3.65-5.03)
[2022-03-16 05:47] LABS: Blood Urea Nitrogen 44 mg/dL (7-17); Calcium 7.6 mg/dL (8.4-10.2); Hemolysis Index 16
[2022-03-16 05:49] LABS: BUN/Creatinine Ratio 63
[2022-03-16] MEDS: fentaNYL DRIP Premix 2,000 MCG/100 ML BAG IV SCH ×3 (06:16→21:00)
--- NOTE | 2022-03-16 08:20 | Progress Note ---
Assessment and Plan Assessment and plan: Interval history: This is a 61-year-old female with multiple sclerosis and seizure disorder who presented to emergency department on 03/10 via EMS for evaluation of shortness of breath and difficulty breathing. Upon arrival of EMS patient's SPO2 was in the 50s and she was hypotensive to 80s over 50s and was started on IV fluids in route and placed on CPAP. Upon arrival to the emergency department patient was placed on BiPAP and work-up in the emergency department included a CXR which showed multifocal pneumonia, lab work revealed hyponatremia, hypokalemia, lactic acidosis, metabolic acidosis and elevated troponins. Patient was started on empiric antibiotics and admitted to the hospital service with Sepsis, acute hypoxic respiratory failure, electrolyte imbalances and elevated troponins with consults to cardiology, pulmonology and nephrology. Hospital Course to Date: 03/10: S/p intubation this am due to tachypnea and worsen mental status. Current sedated and stable on the vent. Patient is now on low dose Levophed gtt due to hypotension. Presented with a Na level of 119, on continuous NS at 125ml, repeat BMP pending. Continue IVF hydration and serial Na Q6hrs. Nephrology is also following. Continue empiric IV Abx for CAP, COVID PCR pending, ID consult pending. D-Dimer also elevated, BLE doppler ordered, therapeutic Lovenox initiat ed. D/W CCM patient is too unstable for transport at this time, possible CTA chest in the am or once patient is more stable. Cardiology was also consulted for elevated troponin X2, EKG noted with no significant ST changes, 2D echo pending. Resume home AEDs, continue seizure precautions. Monitor and replace electrolytes as needed 03/11: Intubated and low dose fentanyl gtt. Open eyes spontaneously but does not track, not following commands. NA level 132 this am, Nabcarb gtt initiated per Nephro. CT head/brain w/o con ordered to r/o intracranial abnormality. Wean off sedation to better assess mental status. Remains on Levophed gtt, afebrile, but with leukocytosis this am. This am CXR and ABG noted, with significant improvement. D/w CCM, PE less likely will hold off on CTA chest for now. Lovenox switched to Qday. Continue empiric IV Abx, ID consult pending. 03/12: Discontinue bicarb gtt, replete phos and potassium, added miralax. Remain on levo and fent gtt 03/13: MRI brain/C-spine completed, EEG completed. Hyponatremia improved, patient remains on Levophed. Had a temperature of 101.3 remains on cefepime. Will defer to ID for abx. Will reculture on next temperature spike. 03/14: Overnight patient had hypoxia issues and FiO2 was increased to 100%, received lasix with repeat dose in AM. Hypotension and increase in levophed. Replete K. 03/15: hypoxia overnight and currently on 100%. RN attempted to lay flat and patient desatted to 88%. Will attempt again later today. Given lasix again. Hopeful to be able to have MRI today. Type and screen today for downtrending h/h, Wean FiO2 as tolerated, repelted phos with sodium phos. 03/16: hypoxic, fio2: 80%, desats on positional movements. Remains on levophed gtt, attempting to wean off. Remains too unstable for MRI brain. May benefit from steroids if altered mentation believed to be from MS flare. Assessment and Plan Neuro: Acute metabolic encephalopathy, h/o Multiple Sclerosis, Seizure disorder -Neurology consulted, appreciate recommendations -Sedated with Fentanyl gtt -RASS goal 0 to -1 -Keppra -Reorientation as needed -Maintain sleep-wake cycle -Seizure precautions -As needed analgesia -CT head shows vascular angioplasty without clear evidence of acute intracranial hemorrhage -MRI brain with and without contrast and MRI C-spine with and without contrast pending -EEG considered abnormal and is compatible with diffuse encephalopathy of perhaps significant brain sedation or neuro active medication or daily combination of both. Absence of epileptiform abnormality but would not rule out possibility of epilepsy -UDS (+) for opiates -Prealbumin 0.044, vitamin B 12 1021, folate 2.15, syphilis nonreactive Cardiac: Hypotension, Elevated troponin -Cardiology consulted, appreciate recommendations -BNP 60025 -Blood pressure monitoring per protocol -Vasopressor support with Levophed gtt -MAP goal greater than 65 -Echocardiogram LVEF 50%, no pulmonary HTN Respiratory: ARDS, Acute hypoxic respiratory failure -[facility] consulted, appreciate recommendations -Intubated on 03/10 with 7.5 OETT at 23 cm at the lips in the ED -A.m. vent settings: AC TV 400, Rate 14, PEEP 10, FiO2 @ 100% -See RT notes for titration -s/p lasix x 2 03/14, lasix today -A.m. ABG and CXR noted -VAP bundle -SPO2 monitoring GI: Moderate Protein Calorie Malnutrition, Transaminitis -24 hours + 1832 mL -PPI -NTR consulted for tube feedings -BR: Miralax, Senokot S -Trend LFTs : Severe hyponatremia, hypophosphatemia -Nephrology consulted, appreciate recommendations -Record intake and output -s/p Sodium Bicarb gtt -Renally dose medications -Avoid nephrotoxic medications -Replete phosphate -Trend BMP ID: Septic Shock, CAP, lactic acidosis (resolved) -Covid 19 PCR (-) -Infectious disease consulted, appreciate recommendation -Antibiotic therapy escalated to merropenum -f/u blood culture -Monitor WBC and temperature curve Endo: NAD -Avoid hypoglycemia -SSI -Accu-Cheks q. 6hr Heme: Leukocytosis -Trend CBC -Transfuse hemoglobin less than 7 -SCDs to BLE while in bed The high probability of a clinically significant, sudden or life threatening deterioration of the [multiple] system(s) required my full and direct attention, intervention and personal management. The aggregate critical care time was [60] minutes. This time is in addition to time spent performing reported procedures but includes the following: [x] Data Review and interpretation [x] Patient assessment and monitoring of vital signs [x] Documentation [x] Medication orders and management Disposition Plan: icu Total Time Spent with Patient (Minutes): 60 History Interval history: Intubated and sedated. Hospitalist Physical - Physical exam Narrative exam: General appearance: Present: no acute distress, other (sedated, intubated) - EENT Eyes: Present: PERRL, EOM intact ENT: poor dentition - Neck Neck: Present: normal ROM - Respiratory Respiratory effort: normal Respiratory: bilateral: diminished, rhonchi - Cardiovascular Rhythm: regular Heart Sounds: Present: S1 & S2. Absent: systolic murmur, diastolic murmur - Extremities Extremities: no ischemia, pulses intact, pulses symmetrical, No edema, normal temperature, normal color Peripheral Pulses: within normal limits - Abdominal General gastrointestinal: soft, non-tender, non-distended, normal bowel sounds - Integumentary Integumentary: Present: warm, dry - Psychiatric Psychiatric: other - Neurologic Neurologic: other (moves BUE, intermittently follows commands, intact cough/gag) - Allied Health Allied health notes reviewed: nursing, RT, social work - Constitutional Vitals: Temp Pulse Resp BP Pulse Ox 100.6 F H 106 H 24 96/61 100 03/16/22 03:56 03/16/22 06:21 03/16/22 06:15 03/16/22 06:15 03/16/22 06:15 General appearance: Present: no acute distress, other (sedated, intubated) HEART Score - HEART Score Troponin: Troponin T 0.032 ng/mL (0.00-0.029) H D 03/10/22 12:24 Results - Labs CBC & Chem 7: 03/16/22 04:50 03/16/22 04:50 Labs: Laboratory Last Values WBC 16.9 K/mm3 (4.5-11.0) H 03/16/22 04:50 RBC 2.53 M/mm3 (3.65-5.03) L 03/16/22 04:50 Hgb 7.1 gm/dl (10.1-14.3) L 03/16/22 04:50 Hct 21.5 % (30.3-42.9) L 03/16/22 04:50 MCV 85 fl (79-97) 03/16/22 04:50 MCH 28 pg (28-32) 03/16/22 04:50 MCHC 33 % (30-34) 03/16/22 04:50 RDW 16.0 % (13.2-15.2) H 03/16/22 04:50 Plt Count 262 K/mm3 (140-440) 03/16/22 04:50 Lymph % (Auto) 8.9 % (13.4-35.0) L 03/11/22 05:00 Gem % (Auto) 4.2 % (0.0-7.3) 03/11/22 05:00 Eos % (Auto) 0.1 % (0.0-4.3) 03/11/22 05:00 Baso % (Auto) 0.2 % (0.0-1.8) 03/11/22 05:00 Lymph # (Auto) 1.2 K/mm3 (1.2-5.4) 03/11/22 05:00 Gem # (Auto) 0.6 K/mm3 (0.0-0.8) 03/11/22 05:00 Eos # (Auto) 0.0 K/mm3 (0.0-0.4) 03/11/22 05:00 Baso # (Auto) 0.0 K/mm3 (0.0-0.1) 03/11/22 05:00 Add Manual Diff Complete 03/15/22 04:10 Total Counted 100 03/15/22 04:10 Seg Neutrophils % 86.6 % (40.0-70.0) H 03/11/22 05:00 Seg Neuts % (Manual) 88.0 % (40.0-70.0) H 03/15/22 04:10 Band Neutrophils % 0 % 03/15/22 04:10 Lymphocytes % (Manual) 5.0 % (13.4-35.0) L 03/15/22 04:10 Reactive Lymphs % (Man) 0 % 03/15/22 04:10 Monocytes % (Manual) 3.0 % (0.0-7.3) 03/15/22 04:10 Eosinophils % (Manual) 4.0 % (0.0-4.3) 03/15/22 04:10 Basophils % (Manual) 0 % (0.0-1.8) 03/15/22 04:10 Metamyelocytes % 0 % 03/15/22 04:10 Myelocytes % 0 % 03/15/22 04:10 Promyelocytes % 0 % 03/15/22 04:10 Blast Cells % 0 % 03/15/22 04:10 Nucleated RBC % Not Reportable 03/15/22 04:10 Seg Neutrophils # 11.8 K/mm3 (1.8-7.7) H 03/11/22 05:00 Seg Neutrophils # Man 11.4 K/mm3 (1.8-7.7) H 03/15/22 04:10 Band Neutrophils # 0.0 K/mm3 03/15/22 04:10 Lymphocytes # (Manual) 0.6 K/mm3 (1.2-5.4) L 03/15/22 04:10 Abs React Lymphs (Man) 0.0 K/mm3 03/15/22 04:10 Monocytes # (Manual) 0.4 K/mm3 (0.0-0.8) 03/15/22 04:10 Eosinophils # (Manual) 0.5 K/mm3 (0.0-0.4) H 03/15/22 04:10 Basophils # (Manual) 0.0 K/mm3 (0.0-0.1) 03/15/22 04:10 Metamyelocytes # 0.0 K/mm3 03/15/22 04:10 Myelocytes # 0.0 K/mm3 03/15/22 04:10 Promyelocytes # 0.0 K/mm3 03/15/22 04:10 Blast Cells # 0.0 K/mm3 03/15/22 04:10 WBC Morphology Not Reportable 03/15/22 04:10 Hypersegmented Neuts Not Reportable 03/15/22 04:10 Hyposegmented Neuts Not Reportable 03/15/22 04:10 Hypogranular Neuts Not Reportable 03/15/22 04:10 Smudge Cells Not Reportable 03/15/22 04:10 Toxic Granulation Not Reportable 03/15/22 04:10 Toxic Vacuolation Not Reportable 03/15/22 04:10 Dohle Bodies Not Reportable 03/15/22 04:10 Pelger-Huet Anomaly Not Reportable 03/15/22 04:10 Luis Rods Not Reportable 03/15/22 04:10 Platelet Estimate Consistent w auto 03/15/22 04:10 Clumped Platelets Not Reportable 03/15/22 04:10 Plt Clumps, EDTA Not Reportable 03/15/22 04:10 Large Platelets Not Reportable 03/15/22 04:10 Giant Platelets Not Reportable 03/15/22 04:10 Platelet Satelliting Not Reportable 03/15/22 04:10 Plt Morphology Comment Not Reportable 03/15/22 04:10 RBC Morphology Not Reportable 03/15/22 04:10 Dimorphic RBCs Not Reportable 03/15/22 04:10 Polychromasia Not Reportable 03/15/22 04:10 Hypochromasia 1+ 03/15/22 04:10 Poikilocytosis Not Reportable 03/15/22 04:10 Anisocytosis Not Reportable 03/15/22 04:10 Microcytosis Not Reportable 03/15/22 04:10 Macrocytosis Not Reportable 03/15/22 04:10 Spherocytes Not Reportable 03/15/22 04:10 Pappenheimer Bodies Not Reportable 03/15/22 04:10 Sickle Cells Not Reportable 03/15/22 04:10 Target Cells Rare 03/15/22 04:10 Tear Drop Cells Not Reportable 03/15/22 04:10 Ovalocytes Few 03/15/22 04:10 Helmet Cells Not Reportable 03/15/22 04:10 Nevarez-Lithium Bodies Not Reportable 03/15/22 04:10 [place] Rings Not Reportable 03/15/22 04:10 Rudy Cells Not Reportable 03/15/22 04:10 Bite Cells Not Reportable 03/15/22 04:10 Crenated Cell Not Reportable 03/15/22 04:10 Elliptocytes Not Reportable 03/15/22 04:10 Acanthocytes (Spur) Few 03/15/22 04:10 Rouleaux Not Reportable 03/15/22 04:10 Hemoglobin C Crystals Not Reportable 03/15/22 04:10 Schistocytes Not Reportable 03/15/22 04:10 Malaria parasites Not Reportable 03/15/22 04:10 Tani Bodies Not Reportable 03/15/22 04:10 Hem Pathologist Commnt No 03/15/22 04:10 PT 14.9 Sec. (12.2-14.9) 03/10/22 01:25 INR 1.03 (0.87-1.13) 03/10/22 01:25 D-Dimer 787.78 ng/mlDDU (0-234) H 03/10/22 05:45 ABG pH 7.320 pH Units (7.350-7.450) L 03/15/22 20:55 ABG pCO2 42.9 mm Hg 03/15/22 20:55 ABG pO2 122.8 mm Hg (80.0-90.0) H 03/15/22 20:55 ABG HCO3 21.6 mmol/L (20.0-26.0) 03/15/22 20:55 ABG O2 Saturation 98.2 % (95.0-99.0) 03/15/22 20:55 ABG O2 Content 9.8 (0.0-44) 03/15/22 20:55 ABG Base Excess -4.1 mmol/L (-2.0-3.0) L 03/15/22 20:55 ABG Hemoglobin 7.0 gm/dl (12.0-16.0) L 03/15/22 20:55 ABG Carboxyhemoglobin 1.5 % (0.0-5.0) 03/15/22 20:55 ABG Methemoglobin 0.4 % (0.0-1.5) 03/15/22 20:55 Oxyhemoglobin 96.3 % (95.0-99.0) 03/15/22 20:55 FiO2 100 % 03/15/22 20:55 Sodium 132 mmol/L (137-145) L 03/16/22 04:50 Potassium 4.7 mmol/L (3.6-5.0) 03/16/22 04:50 Chloride 99.6 mmol/L (98-107) 03/16/22 04:50 Carbon Dioxide 20 mmol/L (22-30) L 03/16/22 04:50 Anion Gap 17 mmol/L 03/16/22 04:50 BUN 44 mg/dL (7-17) H 03/16/22 04:50 Creatinine 0.7 mg/dL (0.6-1.2) 03/16/22 04:50 Estimated GFR > 60 ml/min 03/16/22 04:50 BUN/Creatinine Ratio 63 % 03/16/22 04:50 Glucose 123 mg/dL (65-100) H 03/16/22 04:50 POC Glucose 113 mg/dL (70-105) H 03/16/22 05:42 Osmolality 285 Mosm/kg 03/10/22 12:24 Lactic Acid 1.70 mmol/L (0.7-2.0) 03/11/22 05:00 Uric Acid 1.6 mg/dL (3.5-7.6) L 03/10/22 13:15 Calcium 7.6 mg/dL (8.4-10.2) L 03/16/22 04:50 Phosphorus 3.80 mg/dL (2.5-4.5) D 03/16/22 04:50 Magnesium 1.90 mg/dL (1.7-2.3) 03/16/22 04:50 Ferritin 219.2 ng/mL (10.0-200.0) H 03/10/22 05:45 Total Bilirubin 0.30 mg/dL (0.1-1.2) 03/15/22 04:10 AST 28 units/L (5-40) 03/15/22 04:10 ALT 10 units/L (7-56) 03/15/22 04:10 Alkaline Phosphatase 71 units/L (35-129) 03/15/22 04:10 Lactate Dehydrogenase 210 units/L (91-180) H 03/10/22 05:45 Total Creatine Kinase 901 units/L (30-135) H 03/10/22 12:24 CK-MB (CK-2) 15.3 ng/mL (0.0-4.0) H 03/10/22 12:24 CK-MB (CK-2) Rel Index 1.6 (0-4) 03/10/22 12:24 Troponin T 0.032 ng/mL (0.00-0.029) H D 03/10/22 12:24 C-Reactive Protein < 0.03 mg/dL (0.00-1.30) 03/10/22 05:45 NT-Pro-B Natriuret Pep 55416 pg/mL (0-900) H 03/10/22 01:25 Total Protein 5.3 g/dL (6.3-8.2) L 03/15/22 04:10 Albumin 2.1 g/dL (3.9-5) L 03/15/22 04:10 Albumin/Globulin Ratio 0.7 % 03/15/22 04:10 Prealbumin 0.044 g/L (0.200-0.400) L 03/12/22 18:40 Triglycerides 47 mg/dL (2-149) 03/10/22 01:25 Cholesterol 259 mg/dL (50-199) H 03/10/22 01:25 LDL Cholesterol Direct 187 mg/dL (50-130) H 03/10/22 01:25 HDL Cholesterol 63 mg/dL (40-59) H 03/10/22 01:25 Cholesterol/HDL Ratio 4.11 % 03/10/22 01:25 Lipase 15 units/L (13-60) 03/10/22 01:25 Vitamin B12 1021 pg/mL (211-911) H 03/12/22 18:40 Folate 2.15 ng/mL (7.3-26.0) L 03/12/22 18:40 Procalcitonin 3.92 ng/mL (<0.15) 03/10/22 05:45 TSH 1.290 mlU/mL (0.270-4.200) 03/12/22 18:40 Urine Color Yellow (Yellow) 03/10/22 18:20 Urine Turbidity Clear (Clear) 03/10/22 18:20 Urine pH 6.0 (5.0-7.0) 03/10/22 18:20 Ur Specific [place] 1.010 (1.003-1.030) 03/10/22 18:20 Urine Protein <15 mg/dl mg/dL (Negative) 03/10/22 18:20 Urine Glucose (UA) Neg mg/dL (Negative) 03/10/22 18:20 Urine Ketones Tr mg/dL (Negative) 03/10/22 18:20 Urine Blood Sm (Negative) 03/10/22 18:20 Urine Nitrite Neg (Negative) 03/10/22 18:20 Urine Bilirubin Neg (Negative) 03/10/22 18:20 Urine Urobilinogen < 2.0 mg/dL (<2.0) 03/10/22 18:20 Ur Leukocyte Esterase Lg (Negative) 03/10/22 18:20 Urine WBC (Auto) 105.0 /HPF (0.0-6.0) H 03/10/22 18:20 Urine RBC (Auto) 2.0 /HPF (0.0-6.0) 03/10/22 18:20 U Epithel Cells (Auto) < 1.0 /HPF (0-13.0) 03/10/22 18:20 Urine Bacteria (Auto) 1+ /HPF (Negative) 03/10/22 18:20 Urine Osmolality 368 Mosm/kg 03/10/22 18:20 Urine Sodium 64 mmol/L 03/10/22 18:20 Urine Opiates Screen Presumptive positive 03/10/22 18:20 Urine Methadone Screen Presumptive negative 03/10/22 18:20 Ur Barbiturates Screen Presumptive negative 03/10/22 18:20 Ur Phencyclidine Scrn Presumptive negative 03/10/22 18:20 Ur Amphetamines Screen Presumptive negative 03/10/22 18:20 U Benzodiazepines Scrn Presumptive negative 03/10/22 18:20 Urine Cocaine Screen Presumptive negative 03/10/22 18:20 U Marijuana (THC) Screen Presumptive negative 03/10/22 18:20 Drugs of Abuse Note Disclamer 03/10/22 18:20 Copper 118 mcg/dL (70-175) 03/12/22 18:40 Syphilis IgG/IgM Ab Nonreactive (NonReactive) 03/12/22 18:40 SARS-CoV-2 (PCR) Negative (Negative) 03/10/22 09:50 Blood Type O POSITIVE 03/15/22 09:42 Antibody Screen Negative 03/15/22 09:42 Microbiology: Microbiology 03/10/22 01:25 Peripheral/Venous Blood Culture - Final NO GROWTH AFTER 5 DAYS 03/10/22 01:59 Peripheral/Venous Blood Culture - Final NO GROWTH AFTER 5 DAYS [place]/IV: Voiding Method Indwelling Catheter Active Medications - Current Medications Current Medications: Generic Name Dose Route Start Last Admin Trade Name Freq PRN Reason Stop Dose Admin Acetaminophen 650 mg 03/13/22 05:50 03/15/22 13:37 Acetaminophen 325 Mg/10.15 Ml Oral Liqd Unit Dose FEEDTUBE 650 mg Q6H PRN Administration Non Cardiac Pain or Temp>100.5 Bisacodyl 10 mg 03/15/22 10:00 Bisacodyl 5 Mg Tab PO QDAY PRN Constipation Enoxaparin Sodium 40 mg 03/12/22 10:00 03/15/22 09:25 Enoxaparin 40 Mg/0.4 Ml Inj SUB-Q 40 mg QDAY@1000 SHAHBAZ Administration Protocol Famotidine 20 mg 03/12/22 10:00 03/15/22 21:39 Famotidine 20 Mg Tab FEEDTUBE 20 mg BID SHAHBAZ Administration Fentanyl 50 mcg 03/10/22 10:58 03/14/22 20:48 Fentanyl 100 Mcg/2 Ml Inj IV 50 mcg Q10MIN PRN Administration ANALGESIA Hydrophilic Ointment 1 applic 03/10/22 11:03 Lip Therapy Vaseline TP Q2HR PRN Dry Lips Fentanyl Citrate 2,000 mcg in 100 mls @ 4.16 mls/hr 03/10/22 11:00 03/16/22 06:16 Fentanyl Drip Premix IV 3 mcg/kg/hr TITR SHAHBAZ 12.48 mls/hr Administration Protocol 1 MCG/KG/HR NORepinephrine/NS 8 MG-250 ML 8 mg in 250 mls @ 3.75 mls/hr 03/10/22 11:00 03/15/22 19:00 Norepinephrine/Ns 8 Mg-250 Ml (Double Conc) IV 6 mcg/min TITRATE SHAHBAZ 11.25 mls/hr Titration Protocol 2 MCG/MIN Meropenem/Sodium Chloride 1 gram in 100 mls @ 100 mls/hr 03/14/22 22:00 03/16/22 05:00 Merrem/Ns 1 Gram/100 Ml IV 100 mls/hr Q8H SHAHBAZ Administration Protocol Levetiracetam 500 mg 03/12/22 10:00 03/15/22 21:40 Levetiracetam 500 Mg/5 Ml Oral Liqd FEEDTUBE 500 mg BID SHAHBAZ Administration Magnesium Hydroxide 30 ml 03/10/22 02:56 Magnesium Hydroxide (Mom) Oral Liqd Udc PO Q4H PRN Constipation Multi-Ingred Cream/Lotion/Oil/Oint 1 applic 03/10/22 11:03 Mineral Oil/Petrolatum, White Ophth Oint 3.5 Gm OU Q4HR PRN Dry Eye(s) Ondansetron HCl 4 mg 03/10/22 02:56 Ondansetron 4 Mg/2 Ml Inj IV Q8H PRN Nausea And Vomiting Polyethylene Glycol 17 gm 03/12/22 10:00 03/15/22 09:25 Polyethylene Glycol 3350 17 Gm Powder FEEDTUBE 17 gm QDAY SHAHBAZ Administration Senna/Docusate Sodium 2 tab 03/14/22 10:00 03/15/22 21:40 Sennosides/Docusate Sodium 8.6/50 Mg Tab FEEDTUBE 2 tab Q12H SHAHBAZ Administration Sodium Chloride 10 ml 03/10/22 10:00 03/15/22 21:40 Sodium Chloride 0.9% 10 Ml Flush Syringe IV 10 ml BID SHAHBAZ Administration Sodium Chloride 10 ml 03/10/22 02:56 Sodium Chloride 0.9% 10 Ml Flush Syringe IV PRN PRN LINE FLUSH Nutrition/Malnutrition Assess - Dietary Evaluation Nutrition/Malnutrition Findings: Nutrition Notes Start: 03/10/22 12:22 Freq: Status: Active Protocol: Document 03/14/22 12:08 JOSH (Rec: 03/14/22 12:31 JOSH [id number]) Nutrition Notes Initial or Follow up Brief Note Current Diagnosis Sepsis,Hypertension, Respiratory Failure, Malnutrition Other Pertinent Diagnosis MS, CAP, Seizure, Metabolic Encephalopathy, Hyponatremia, Hypokalemia, ... Current Diet TF-Vital AF 1.2 En @ 60 ml/hr (since D 03/10). Height 5 ft 6 in Weight 83.2 kg [place] Body Weight (kg) 59.09 BMI 29.6 Weight change and time frame No body weight change reported in 4 days. Weight Status Overweight Subjective/Other Information RD consult for routine F/U on TF tolerance/continuation. TF continues as prescribed, and well tolerated, according to RN notes. Pt remains on Mechanical Ventilation, O2 saturation @ 97%, according to Physical Assessment History notes. Pt presents an unspecified area of concern for skin risk with redness and flakiness, according to Physical Assessment History notes. Percent of energy/protein needs met: Prescribed TF-Vital AF 1.2 En @ 60 ml/hr provides for energy/protein needs (1,728 Kcal/108 g) during LOS, 100% Kcal; 100% AA. #1 Nutrition Diagnosis Inadequate oral intake Diagnosis Progress(for reassessment Continues documentation) Is patient on ventilator? Yes Is Patient Ambulatory and/or Out of Bed No REE-([place] [facility]-confined to bed) 1713.168 Calculation Used for Recommendations [place] Additional Notes Protein: 1-1.2 g/Kg ABW; 100- 166 g/day. Fluids: 1 ml/Kcal, or as per MD. Nutrition Intervention Nutrition Support: Continue TF-Vital AF 1.2 En @ 60 ml/hr. Flush: 100 ml water Q 4 hr, or as per MD. Kcal 1,728 Protein (gm) 108 Carbohydrates (gm) 159 Fat (gm) 78 Fluid (mL) 1,168 Fiber (gm) 7 % RDI: 100% Kcal; 100% AA. Goal #1 Provide at least 75% of energy /protein needs through Enteral Feeding during LOS. Follow-Up By: 03/21/22 Additional Comments Continue monitoring TF tolerance, Ventilation Status, Pressor support, and BM.
[2022-03-16] MEDS: levETIRAcetam 500 MG/5 ML ORAL LIQD FEEDTUBE SCH ×2 (09:29→22:41)
[2022-03-16] MEDS: ENOXAPARIN 40 MG/0.4 ML INJ SUB-Q SCH (09:29)
[2022-03-16] MEDS: FAMOTIDINE 20 MG TAB FEEDTUBE SCH ×2 (09:30→22:41)
[2022-03-16] MEDS: SENNOSIDES/DOCUSATE SODIUM 8.6/50 MG TAB FEEDTUBE SCH ×2 (09:31→22:41)
--- NOTE | 2022-03-16 11:08 | Progress Note ---
Assessment and Plan Acute Hypoxemic Respiratory Failure on MVS Multifocal Pneumonia/CAP Severe Hyponatremia Septic shock Lactic Acidosis NSTEMI/Elevated Troponin Elevated BNP Hypokalemia R/o COVID Acute Metabolic Encephalopathy H/o Seizure Disorder Elevated D-Dimer Moderate Protein Calorie Malnutrition - reduced FiO2 to 80% - keep peep at 12 (PIP's 24 cm H2O) - ARDS net ventilatory strategies - repeat ABG in am - get CVP's & trend - get lactidc acid level and address - holding diuretics re: Azotemia (continue to follow electrolytes & creatinine levels) - continue Meropenem; de-escalate per ID recommendations - continue care as below otherwise; - titrate vasopressor support to keep MAP>65 - Daily SAT and SBT assessment as tolerated - continue to wean supplemental oxygen for target O2 sat's > 90% acutely - VAP bundle addressed - continue lung protective strategies - continue bronchodilators with pulmonary hygiene per RT - wean per pulmonary driven protocols otherwise - continue accuchecks with glycemic control per SSI (While critically ill target blood glucose of 140-180 mg/dL; avoid hypoglycemia) - sedation prn for target RASS 0 to -1 - avoid nephrotoxins, renally dose all medications - continue to avoid benzodiazepine's, reduce the possibility of delirium - complete AB's per ID rec's - prn analgesia per CPOT score - Maintenance of sleep-wake cycle, avoid delirium - continue enteral nutritional support at goal rate as tolerated - G.I. & VTE prophylaxis - PT/OT/ROM exercises - continue mobility protocols for pressure ulcer prophylaxis - Monitor hemodynamics closely - continue other care per attending / other consultants - discharge planning ongoing concurrently COVID SPECIFIC INTERVENTIONS - COVID-19 PCR negative .... Re-evaluate in am & prn CONDITION: CRITICAL PROGNOSIS: GUARDED CODE STATUS: FULL CODE The high probability of a clinically significant, sudden or life-threatening deterioration of the [respiratory, cardiovascular & neurologic] system(s) required my full and direct attention, intervention and personal management. The aggregate critical care time was [32] minutes without overlap. Time includes spent on; [x] Data Review and interpretation [x] Patient assessment and monitoring of vital signs [x] Documentation [x] Medication orders and management Subjective Date of service: 03/16/22 Principal diagnosis: AHRF; Multifocal Pneumonia; Septic shock; NSTEMI; AMS; Seizures Interval history: Patient is seen today for: Acute Hypoxemic Respiratory Failure; Multifocal Pneumonia/CAP; Hyponatremia; Septic shock; NSTEMI; AMS; Seizure Disorder; Mo derate Protein Calorie Malnutrition Seen and examined at bedside; 24hour events reviewed; nursing and respiratory care staff consulted; no adverse overnight events reported to me; resting peacefully in bed; ultimately increased peep to 14 yesterday; remains on Levophed @ 6 mics/min; AMS is persistent; AB's escalated to Meropenem re: leucocytosis and fevers; cultures NGTD Objective Vital Signs - 12hr 03/15/22 03/15/22 03/15/22 23:15 23:30 23:35 Temperature Pulse Rate 105 H 106 H 105 H Respiratory 23 25 H 4 L Rate Respiratory Rate [no pain] Blood Pressure 86/58 87/61 100/55 O2 Sat by Pulse 98 98 98 Oximetry 03/15/22 03/15/22 03/16/22 23:45 23:53 00:00 Temperature Pulse Rate 105 H 101 H 106 H Respiratory 25 H 22 26 H Rate Respiratory Rate [no pain] Blood Pressure 89/61 89/61 87/60 O2 Sat by Pulse 98 93 96 Oximetry 03/16/22 03/16/22 03/16/22 00:05 00:06 00:15 Temperature Pulse Rate 106 H 106 H 104 H Respiratory 24 25 H 25 H Rate Respiratory Rate [no pain] Blood Pressure 87/60 84/54 O2 Sat by Pulse 100 96 94 Oximetry 03/16/22 03/16/22 03/16/22 00:30 00:45 00:58 Temperature 100.8 F H Pulse Rate 105 H 106 H Respiratory 25 H 26 H Rate Respiratory Rate [no pain] Blood Pressure 92/60 88/57 O2 Sat by Pulse 94 93 Oximetry 03/16/22 03/16/22 03/16/22 01:00 01:15 01:30 Temperature Pulse Rate 106 H 105 H 105 H Respiratory 27 H 27 H 27 H Rate Respiratory Rate [no pain] Blood Pressure 96/61 88/60 88/65 O2 Sat by Pulse 91 93 89 Oximetry 03/16/22 03/16/22 03/16/22 01:35 01:45 02:00 Temperature Pulse Rate 105 H 107 H 108 H Respiratory 24 26 H 26 H Rate Respiratory Rate [no pain] Blood Pressure 92/64 92/65 O2 Sat by Pulse 100 99 96 Oximetry 03/16/22 03/16/22 03/16/22 02:15 02:21 02:30 Temperature Pulse Rate 108 H 108 H 108 H Respiratory 22 24 23 Rate Respiratory Rate [no pain] Blood Pressure 93/60 91/59 O2 Sat by Pulse 98 100 100 Oximetry 03/16/22 03/16/22 03/16/22 02:45 03:00 03:15 Temperature Pulse Rate 108 H 108 H 106 H Respiratory 21 23 19 Rate Respiratory Rate [no pain] Blood Pressure 89/59 97/66 101/63 O2 Sat by Pulse 100 99 100 Oximetry 03/16/22 03/16/22 03/16/22 03:30 03:45 03:56 Temperature 100.6 F H Pulse Rate 106 H 105 H Respiratory 20 21 Rate Respiratory Rate [no pain] Blood Pressure 91/65 93/64 O2 Sat by Pulse 100 100 Oximetry 03/16/22 03/16/22 03/16/22 04:00 04:15 04:30 Temperature Pulse Rate 105 H 105 H 105 H Respiratory 22 24 23 Rate Respiratory Rate [no pain] Blood Pressure 102/66 99/57 86/57 O2 Sat by Pulse 100 99 99 Oximetry 03/16/22 03/16/22 03/16/22 04:45 05:00 05:15 Temperature Pulse Rate 102 H 104 H 106 H Respiratory 22 21 23 Rate Respiratory Rate [no pain] Blood Pressure 81/52 84/60 94/61 O2 Sat by Pulse 97 98 98 Oximetry 03/16/22 03/16/22 03/16/22 05:30 05:45 06:00 Temperature Pulse Rate 106 H 106 H 106 H Respiratory 22 23 22 Rate Respiratory Rate [no pain] Blood Pressure 91/54 86/56 86/56 O2 Sat by Pulse 96 99 100 Oximetry 03/16/22 03/16/22 03/16/22 06:15 06:21 06:30 Temperature Pulse Rate 106 H 106 H 105 H Respiratory 24 21 Rate Respiratory Rate [no pain] Blood Pressure 96/61 96/59 O2 Sat by Pulse 100 100 Oximetry 03/16/22 03/16/22 03/16/22 06:45 07:00 07:15 Temperature Pulse Rate 105 H 105 H 104 H Respiratory 21 23 26 H Rate Respiratory Rate [no pain] Blood Pressure 94/59 89/58 83/59 O2 Sat by Pulse 99 93 87 Oximetry 03/16/22 03/16/22 03/16/22 07:30 07:45 08:00 Temperature Pulse Rate 107 H 108 H 107 H Respiratory 26 H 24 23 Rate Respiratory Rate [no pain] Blood Pressure 90/60 89/62 99/61 O2 Sat by Pulse 86 96 96 Oximetry 03/16/22 03/16/22 03/16/22 08:15 08:30 08:45 Temperature Pulse Rate 108 H 105 H 108 H Respiratory 23 22 22 Rate Respiratory Rate [no pain] Blood Pressure 92/65 88/57 88/59 O2 Sat by Pulse 98 99 98 Oximetry 03/16/22 03/16/22 03/16/22 09:00 09:15 09:30 Temperature Pulse Rate 109 H 108 H 108 H Respiratory 22 21 22 Rate Respiratory Rate [no pain] Blood Pressure 98/61 90/61 98/65 O2 Sat by Pulse 99 98 98 Oximetry 03/16/22 03/16/22 03/16/22 09:46 10:00 10:15 Temperature Pulse Rate 106 H 107 H 109 H Respiratory 29 H 26 H 25 H Rate Respiratory 24 Rate [no pain] Blood Pressure 105/66 102/57 107/65 O2 Sat by Pulse 90 89 96 Oximetry 03/16/22 03/16/22 03/16/22 10:30 10:45 11:00 Temperature Pulse Rate 109 H 109 H 108 H Respiratory 23 24 23 Rate Respiratory Rate [no pain] Blood Pressure 95/64 91/61 91/61 O2 Sat by Pulse 97 96 97 Oximetry Constitutional: alert, appears uncomfortable, other (middle aged female with increased respiratory effort at rest) Eyes: non-icteric ENT: oropharynx moist, other (ETT 24 cm BLANCA) Effort: mildly labored Ascultation: Bilateral: rales Percussion: Bilateral: not dull Cardiovascular: regular rate and rhythm Gastrointestinal: normoactive bowel sounds, soft, non-tender, non-distended Integumentary: normal Extremities: no cyanosis, no edema, pulses normal, no ischemia or petechiae Neurologic: pupils equal and round, unable to assess, other (weak) Psychiatric: other (unable to assess re: AMS) CBC and BMP: 03/16/22 04:50 03/16/22 04:50 ABG, PT/INR, D-dimer: ABG ABG pH 7.320 pH Units (7.350-7.450) L 03/15/22 20:55 ABG pCO2 42.9 mm Hg 03/15/22 20:55 ABG pO2 122.8 mm Hg (80.0-90.0) H 03/15/22 20:55 ABG O2 Saturation 98.2 % (95.0-99.0) 03/15/22 20:55 PT/INR, D-dimer PT 14.9 Sec. (12.2-14.9) 03/10/22 01:25 INR 1.03 (0.87-1.13) 03/10/22 01:25 D-Dimer 787.78 ng/mlDDU (0-234) H 03/10/22 05:45 Abnormal lab findings: Abnormal Labs 03/10/22 03/10/22 03/10/22 01:19 01:25 01:25 WBC RBC Hgb Hct RDW 15.4 H Lymph % (Auto) 12.4 L Lymph # (Auto) 1.1 L Seg Neutrophils % 85.9 H Seg Neuts % (Manual) Lymphocytes % (Manual) Seg Neutrophils # Seg Neutrophils # Man Lymphocytes # (Manual) Eosinophils # (Manual) D-Dimer ABG pH ABG pO2 59.3 L ABG HCO3 16.7 L ABG O2 Saturation 92.3 L ABG Base Excess -7.8 L ABG Hemoglobin 11.4 L Oxyhemoglobin 90.8 L Sodium 119 L* Potassium 3.1 L Chloride 88.1 L Carbon Dioxide 16 L BUN Creatinine 0.3 L Glucose 146 H POC Glucose Lactic Acid Uric Acid Calcium 8.2 L Phosphorus Magnesium 1.30 L Ferritin ALT 5 L Lactate Dehydrogenase Total Creatine Kinase CK-MB (CK-2) Troponin T NT-Pro-B Natriuret Pep Total Protein 5.4 L Albumin 3.6 L Prealbumin Cholesterol LDL Cholesterol Direct HDL Cholesterol Vitamin B12 Folate Urine WBC (Auto) 03/10/22 03/10/22 03/10/22 01:25 01:25 01:25 WBC RBC Hgb Hct RDW Lymph % (Auto) Lymph # (Auto) Seg Neutrophils % Seg Neuts % (Manual) Lymphocytes % (Manual) Seg Neutrophils # Seg Neutrophils # Man Lymphocytes # (Manual) Eosinophils # (Manual) D-Dimer ABG pH ABG pO2 ABG HCO3 ABG O2 Saturation ABG Base Excess ABG Hemoglobin Oxyhemoglobin Sodium Potassium Chloride Carbon Dioxide BUN Creatinine Glucose POC Glucose Lactic Acid 3.60 H* Uric Acid Calcium Phosphorus Magnesium Ferritin ALT Lactate Dehydrogenase Total Creatine Kinase CK-MB (CK-2) 4.6 H Troponin T 0.164 H* NT-Pro-B Natriuret Pep 25756 H Total Protein Albumin Prealbumin Cholesterol 259 H LDL Cholesterol Direct 187 H HDL Cholesterol 63 H Vitamin B12 Folate Urine WBC (Auto) 03/10/22 03/10/22 03/10/22 02:43 05:45 05:45 WBC RBC Hgb Hct RDW Lymph % (Auto) Lymph # (Auto) Seg Neutrophils % Seg Neuts % (Manual) Lymphocytes % (Manual) Seg Neutrophils # Seg Neutrophils # Man Lymphocytes # (Manual) Eosinophils # (Manual) D-Dimer 787.78 H ABG pH ABG pO2 ABG HCO3 ABG O2 Saturation ABG Base Excess ABG Hemoglobin Oxyhemoglobin Sodium Potassium Chloride Carbon Dioxide BUN Creatinine Glucose POC Glucose Lactic Acid 3.70 H* 3.10 H* Uric Acid Calcium Phosphorus Magnesium Ferritin ALT Lactate Dehydrogenase Total Creatine Kinase CK-MB (CK-2) Troponin T NT-Pro-B Natriuret Pep Total Protein Albumin Prealbumin Cholesterol LDL Cholesterol Direct HDL Cholesterol Vitamin B12 Folate Urine WBC (Auto) 03/10/22 03/10/22 03/10/22 05:45 05:45 12:24 WBC RBC Hgb Hct RDW Lymph % (Auto) Lymph # (Auto) Seg Neutrophils % Seg Neuts % (Manual) Lymphocytes % (Manual) Seg Neutrophils # Seg Neutrophils # Man Lymphocytes # (Manual) Eosinophils # (Manual) D-Dimer ABG pH ABG pO2 ABG HCO3 ABG O2 Saturation ABG Base Excess ABG Hemoglobin Oxyhemoglobin Sodium 124 L Potassium 3.3 L Chloride Carbon Dioxide 11 L BUN Creatinine 0.2 L Glucose POC Glucose Lactic Acid Uric Acid Calcium 6.9 L D Phosphorus Magnesium Ferritin 219.2 H ALT Lactate Dehydrogenase 210 H Total Creatine Kinase CK-MB (CK-2) Troponin T NT-Pro-B Natriuret Pep Total Protein Albumin Prealbumin Cholesterol LDL Cholesterol Direct HDL Cholesterol Vitamin B12 Folate Urine WBC (Auto) 03/10/22 03/10/22 03/10/22 12:24 12:24 12:24 WBC RBC Hgb Hct RDW Lymph % (Auto) Lymph # (Auto) Seg Neutrophils % Seg Neuts % (Manual) Lymphocytes % (Manual) Seg Neutrophils # Seg Neutrophils # Man Lymphocytes # (Manual) Eosinophils # (Manual) D-Dimer ABG pH ABG pO2 ABG HCO3 ABG O2 Saturation ABG Base Excess ABG Hemoglobin Oxyhemoglobin Sodium 128 L Potassium Chloride Carbon Dioxide BUN Creatinine Glucose POC Glucose Lactic Acid 2.70 H* Uric Acid Calcium Phosphorus Magnesium Ferritin ALT Lactate Dehydrogenase Total Creatine Kinase 901 H CK-MB (CK-2) 15.3 H Troponin T 0.032 H D NT-Pro-B Natriuret Pep Total Protein Albumin Prealbumin Cholesterol LDL Cholesterol Direct HDL Cholesterol Vitamin B12 Folate Urine WBC (Auto) 03/10/22 03/10/22 03/10/22 12:45 13:15 18:00 WBC RBC Hgb Hct RDW Lymph % (Auto) Lymph # (Auto) Seg Neutrophils % Seg Neuts % (Manual) Lymphocytes % (Manual) Seg Neutrophils # Seg Neutrophils # Man Lymphocytes # (Manual) Eosinophils # (Manual) D-Dimer ABG pH 7.315 L ABG pO2 70.1 L ABG HCO3 15.6 L ABG O2 Saturation 93.8 L ABG Base Excess -9.5 L ABG Hemoglobin 11.0 L Oxyhemoglobin 92.4 L Sodium 129 L Potassium Chloride Carbon Dioxide 17 L BUN Creatinine 0.2 L Glucose POC Glucose Lactic Acid Uric Acid 1.6 L Calcium 7.0 L Phosphorus Magnesium Ferritin ALT Lactate Dehydrogenase Total Creatine Kinase CK-MB (CK-2) Troponin T NT-Pro-B Natriuret Pep Total Protein Albumin Prealbumin Cholesterol LDL Cholesterol Direct HDL Cholesterol Vitamin B12 Folate Urine WBC (Auto) 03/10/22 03/10/22 03/11/22 18:20 21:05 05:00 WBC 13.7 H RBC 3.44 L Hgb 9.6 L Hct 29.0 L D RDW Lymph % (Auto) 8.9 L Lymph # (Auto) Seg Neutrophils % 86.6 H Seg Neuts % (Manual) Lymphocytes % (Manual) Seg Neutrophils # 11.8 H Seg Neutrophils # Man Lymphocytes # (Manual) Eosinophils # (Manual) D-Dimer ABG pH ABG pO2 116.3 H ABG HCO3 17.2 L ABG O2 Saturation ABG Base Excess -6.4 L ABG Hemoglobin 11.0 L Oxyhemoglobin Sodium Potassium Chloride Carbon Dioxide BUN Creatinine Glucose POC Glucose Lactic Acid Uric Acid Calcium Phosphorus Magnesium Ferritin ALT Lactate Dehydrogenase Total Creatine Kinase CK-MB (CK-2) Troponin T NT-Pro-B Natriuret Pep Total Protein Albumin Prealbumin Cholesterol LDL Cholesterol Direct HDL Cholesterol Vitamin B12 Folate Urine WBC (Auto) 105.0 H 03/11/22 03/11/22 03/12/22 05:00 Unknown 04:10 WBC RBC Hgb Hct RDW Lymph % (Auto) Lymph # (Auto) Seg Neutrophils % Seg Neuts % (Manual) Lymphocytes % (Manual) Seg Neutrophils # Seg Neutrophils # Man Lymphocytes # (Manual) Eosinophils # (Manual) D-Dimer ABG pH 7.472 H 7.482 H ABG pO2 65.5 L ABG HCO3 19.8 L ABG O2 Saturation ABG Base Excess -2.9 L ABG Hemoglobin 10.1 L 8.4 L Oxyhemoglobin Sodium 132 L Potassium Chloride Carbon Dioxide 20 L BUN 6 L Creatinine 0.2 L Glucose POC Glucose Lactic Acid Uric Acid Calcium 7.5 L Phosphorus Magnesium Ferritin ALT Lactate Dehydrogenase Total Creatine Kinase CK-MB (CK-2) Troponin T NT-Pro-B Natriuret Pep Total Protein Albumin Prealbumin Cholesterol LDL Cholesterol Direct HDL Cholesterol Vitamin B12 Folate Urine WBC (Auto) 03/12/22 03/12/22 03/12/22 04:20 04:20 12:25 WBC 13.6 H RBC 3.11 L Hgb 8.7 L Hct 26.1 L RDW Lymph % (Auto) Lymph # (Auto) Seg Neutrophils % Seg Neuts % (Manual) Lymphocytes % (Manual) Seg Neutrophils # Seg Neutrophils # Man Lymphocytes # (Manual) Eosinophils # (Manual) D-Dimer ABG pH ABG pO2 ABG HCO3 ABG O2 Saturation ABG Base Excess ABG Hemoglobin Oxyhemoglobin Sodium 128 L Potassium 3.2 L Chloride 93.9 L Carbon Dioxide BUN 4 L Creatinine 0.2 L Glucose 103 H POC Glucose 116 H Lactic Acid Uric Acid Calcium 7.4 L Phosphorus 1.10 L Magnesium 2.40 H Ferritin ALT Lactate Dehydrogenase Total Creatine Kinase CK-MB (CK-2) Troponin T NT-Pro-B Natriuret Pep Total Protein Albumin Prealbumin Cholesterol LDL Cholesterol Direct HDL Cholesterol Vitamin B12 Folate Urine WBC (Auto) 03/12/22 03/12/22 03/12/22 18:40 18:40 18:40 WBC RBC Hgb Hct RDW Lymph % (Auto) Lymph # (Auto) Seg Neutrophils % Seg Neuts % (Manual) Lymphocytes % (Manual) Seg Neutrophils # Seg Neutrophils # Man Lymphocytes # (Manual) Eosinophils # (Manual) D-Dimer ABG pH ABG pO2 ABG HCO3 ABG O2 Saturation ABG Base Excess ABG Hemoglobin Oxyhemoglobin Sodium Potassium Chloride Carbon Dioxide BUN Creatinine Glucose POC Glucose Lactic Acid Uric Acid Calcium Phosphorus Magnesium Ferritin ALT Lactate Dehydrogenase Total Creatine Kinase CK-MB (CK-2) Troponin T NT-Pro-B Natriuret Pep Total Protein Albumin Prealbumin 0.044 L Cholesterol LDL Cholesterol Direct HDL Cholesterol Vitamin B12 1021 H Folate 2.15 L Urine WBC (Auto) 03/13/22 03/13/22 03/13/22 04:10 08:00 09:50 WBC 15.0 H RBC 2.82 L Hgb 8.0 L Hct 23.9 L RDW 15.5 H Lymph % (Auto) Lymph # (Auto) Seg Neutrophils % Seg Neuts % (Manual) Lymphocytes % (Manual) Seg Neutrophils # Seg Neutrophils # Man Lymphocytes # (Manual) Eosinophils # (Manual) D-Dimer ABG pH ABG pO2 98.6 H ABG HCO3 ABG O2 Saturation ABG Base Excess ABG Hemoglobin 8.3 L Oxyhemoglobin Sodium 130 L Potassium Chloride 96.1 L Carbon Dioxide BUN Creatinine 0.4 L D Glucose 148 H POC Glucose Lactic Acid Uric Acid Calcium 7.3 L Phosphorus Magnesium Ferritin ALT Lactate Dehydrogenase Total Creatine Kinase CK-MB (CK-2) Troponin T NT-Pro-B Natriuret Pep Total Protein Albumin Prealbumin Cholesterol LDL Cholesterol Direct HDL Cholesterol Vitamin B12 Folate Urine WBC (Auto) 03/13/22 03/13/22 03/14/22 20:15 22:59 04:54 WBC 17.0 H RBC 2.79 L Hgb 7.8 L Hct 23.6 L RDW 15.6 H Lymph % (Auto) Lymph # (Auto) Seg Neutrophils % Seg Neuts % (Manual) Lymphocytes % (Manual) Seg Neutrophils # Seg Neutrophils # Man Lymphocytes # (Manual) Eosinophils # (Manual) D-Dimer ABG pH ABG pO2 ABG HCO3 ABG O2 Saturation ABG Base Excess -2.9 L ABG Hemoglobin 8.0 L Oxyhemoglobin Sodium Potassium Chloride Carbon Dioxide BUN Creatinine Glucose POC Glucose 127 H Lactic Acid Uric Acid Calcium Phosphorus Magnesium Ferritin ALT Lactate Dehydrogenase Total Creatine Kinase CK-MB (CK-2) Troponin T NT-Pro-B Natriuret Pep Total Protein Albumin Prealbumin Cholesterol LDL Cholesterol Direct HDL Cholesterol Vitamin B12 Folate Urine WBC (Auto) 03/14/22 03/14/22 03/14/22 04:54 16:15 22:59 WBC RBC Hgb Hct RDW Lymph % (Auto) Lymph # (Auto) Seg Neutrophils % Seg Neuts % (Manual) Lymphocytes % (Manual) Seg Neutrophils # Seg Neutrophils # Man Lymphocytes # (Manual) Eosinophils # (Manual) D-Dimer ABG pH ABG pO2 ABG HCO3 ABG O2 Saturation ABG Base Excess ABG Hemoglobin Oxyhemoglobin Sodium 129 L 128 L Potassium 3.5 L Chloride 97.1 L 97.0 L Carbon Dioxide BUN 24 H 31 H Creatinine 0.5 L Glucose 125 H 114 H POC Glucose 134 H Lactic Acid Uric Acid Calcium 7.0 L 7.0 L Phosphorus Magnesium Ferritin ALT Lactate Dehydrogenase Total Creatine Kinase CK-MB (CK-2) Troponin T NT-Pro-B Natriuret Pep Total Protein Albumin Prealbumin Cholesterol LDL Cholesterol Direct HDL Cholesterol Vitamin B12 Folate Urine WBC (Auto) 03/15/22 03/15/22 03/15/22 04:10 04:10 05:02 WBC 12.9 H RBC 2.55 L Hgb 7.1 L Hct 21.5 L RDW 15.8 H Lymph % (Auto) Lymph # (Auto) Seg Neutrophils % Seg Neuts % (Manual) 88.0 H Lymphocytes % (Manual) 5.0 L Seg Neutrophils # Seg Neutrophils # Man 11.4 H Lymphocytes # (Manual) 0.6 L Eosinophils # (Manual) 0.5 H D-Dimer ABG pH ABG pO2 ABG HCO3 ABG O2 Saturation ABG Base Excess ABG Hemoglobin Oxyhemoglobin Sodium 127 L Potassium Chloride 96.3 L Carbon Dioxide 21 L BUN 33 H Creatinine Glucose 126 H POC Glucose 116 H Lactic Acid Uric Acid Calcium 7.4 L Phosphorus 1.20 L Magnesium Ferritin ALT Lactate Dehydrogenase Total Creatine Kinase CK-MB (CK-2) Troponin T NT-Pro-B Natriuret Pep Total Protein 5.3 L Albumin 2.1 L Prealbumin Cholesterol LDL Cholesterol Direct HDL Cholesterol Vitamin B12 Folate Urine WBC (Auto) 03/15/22 03/15/22 03/15/22 05:55 11:34 20:55 WBC RBC Hgb Hct RDW Lymph % (Auto) Lymph # (Auto) Seg Neutrophils % Seg Neuts % (Manual) Lymphocytes % (Manual) Seg Neutrophils # Seg Neutrophils # Man Lymphocytes # (Manual) Eosinophils # (Manual) D-Dimer ABG pH 7.320 L ABG pO2 119.0 H 122.8 H ABG HCO3 ABG O2 Saturation ABG Base Excess -3.1 L -4.1 L ABG Hemoglobin 8.2 L 7.0 L Oxyhemoglobin Sodium Potassium Chloride Carbon Dioxide BUN Creatinine Glucose POC Glucose 125 H Lactic Acid Uric Acid Calcium Phosphorus Magnesium Ferritin ALT Lactate Dehydrogenase Total Creatine Kinase CK-MB (CK-2) Troponin T NT-Pro-B Natriuret Pep Total Protein Albumin Prealbumin Cholesterol LDL Cholesterol Direct HDL Cholesterol Vitamin B12 Folate Urine WBC (Auto) 03/16/22 03/16/22 03/16/22 04:50 04:50 05:42 WBC 16.9 H RBC 2.53 L Hgb 7.1 L Hct 21.5 L RDW 16.0 H Lymph % (Auto) Lymph # (Auto) Seg Neutrophils % Seg Neuts % (Manual) Lymphocytes % (Manual) Seg Neutrophils # Seg Neutrophils # Man Lymphocytes # (Manual) Eosinophils # (Manual) D-Dimer ABG pH ABG pO2 ABG HCO3 ABG O2 Saturation ABG Base Excess ABG Hemoglobin Oxyhemoglobin Sodium 132 L Potassium Chloride Carbon Dioxide 20 L BUN 44 H Creatinine Glucose 123 H POC Glucose 113 H Lactic Acid Uric Acid Calcium 7.6 L Phosphorus Magnesium Ferritin ALT Lactate Dehydrogenase Total Creatine Kinase CK-MB (CK-2) Troponin T NT-Pro-B Natriuret Pep Total Protein Albumin Prealbumin Cholesterol LDL Cholesterol Direct HDL Cholesterol Vitamin B12 Folate Urine WBC (Auto) Chest x-ray: image reviewed (persistent bilateral infiltrates with short term stability) Allied health notes reviewed: nursing
--- NOTE | 2022-03-16 11:31 | Progress Note ---
Assessment and Plan Cultures: Blood culture no growth so far Sputum culture no growth so far A/P: 61-year-old female past medical history of multiple sclerosis, seizures now with: #Acute sepsis: With fevers, leukocytosis. Secondary to bilateral pneumonia #Acute hypoxic respiratory failure on vent #Bilateral pneumonia #Multiple sclerosis Recs: -Escalated to meropenem considering ongoing leukocytosis and fevers -Follow fever curve and white count Thank you for the consult, we will continue to follow. Lizy Ashraf MD [facility] O: [phone] F: [phone] Subjective Date of service: 03/16/22 Principal diagnosis: AHRF; Multifocal Pneumonia; Septic shock; NSTEMI; AMS; Seizures Interval history: Remains febrile, white count increased today after improving yesterday. Objective - Exam Narrative Exam: Physical Exam: Constitutional: intubated, sedated Head, Ears, Nose: Normocephalic, atraumatic. External ears, nose normal Eyes: Conjunctivae/corneas clear. No icterus. No ptosis. Neck: Supple, no meningeal signs Oral: ETT Cardiovascular: S1, S2 normal. Respiratory: Good air entry, clear to auscultation bilaterally GI: Soft, non-tender; bowel sounds normal. No peritoneal signs. Musculoskeletal: No pedal edema, no cyanosis. Skin: No rash or abscess Hem/Lymphatic: No palpable cervical or supraclavicular nodes. Psych: Unable to assess Neurological: Unable to asses. - Constitutional Vitals: Vital Signs Temp Pulse Resp BP Pulse Ox 100.6 F H 108 H 23 91/61 97 03/16/22 03:56 03/16/22 11:00 03/16/22 11:00 03/16/22 11:00 03/16/22 11:00 Temperature -Last 24 Hours Temperature 100.6 F Temperature 100.8 F Temperature 99.8 F Temperature 100.2 F Temperature 100.9 F - Labs CBC & Chem 7: 03/16/22 04:50 03/16/22 04:50 Labs: Abnormal lab results 03/15/22 03/15/22 03/16/22 Range/Units 11:34 20:55 04:50 WBC (4.5-11.0) K/mm3 RBC (3.65-5.03) M/mm3 Hgb (10.1-14.3) gm/dl Hct (30.3-42.9) % RDW (13.2-15.2) % ABG pH 7.320 L (7.350-7.450) pH Units ABG pO2 122.8 H (80.0-90.0) mm Hg ABG Base Excess -4.1 L (-2.0-3.0) mmol/L ABG Hemoglobin 7.0 L (12.0-16.0) gm/dl Sodium 132 L (137-145) mmol/L Carbon Dioxide 20 L (22-30) mmol/L BUN 44 H (7-17) mg/dL Glucose 123 H (65-100) mg/dL POC Glucose 125 H (70-105) mg/dL Calcium 7.6 L (8.4-10.2) mg/dL 03/16/22 03/16/22 Range/Units 04:50 05:42 WBC 16.9 H (4.5-11.0) K/mm3 RBC 2.53 L (3.65-5.03) M/mm3 Hgb 7.1 L (10.1-14.3) gm/dl Hct 21.5 L (30.3-42.9) % RDW 16.0 H (13.2-15.2) % ABG pH (7.350-7.450) pH Units ABG pO2 (80.0-90.0) mm Hg ABG Base Excess (-2.0-3.0) mmol/L ABG Hemoglobin (12.0-16.0) gm/dl Sodium (137-145) mmol/L Carbon Dioxide (22-30) mmol/L BUN (7-17) mg/dL Glucose (65-100) mg/dL POC Glucose 113 H (70-105) mg/dL Calcium (8.4-10.2) mg/dL
--- NOTE | 2022-03-16 11:56 | Progress Note ---
Assessment and Plan Electrolyte Imbalance - F/u resolving HypoNa. Still hold all IVF Hypotension - Titrate vasopressor as tolerated for better SBP Anemia - Consider PRBC transfusion Pneumonia/Resp Failure - Vent Mx per Pulm Multiple Sclerosis - F/u Mx per Neuro Subjective Date of service: 03/16/22 Principal diagnosis: AHRF; Multifocal Pneumonia; Septic shock; NSTEMI; AMS; Seizures Interval history: On Vent, sedated, no change Objective - Vital Signs Vital signs: Vital Signs - 12hr 03/15/22 03/16/22 03/16/22 23:53 00:00 00:05 Temperature Pulse Rate 101 H 106 H 106 H Respiratory 22 26 H 24 Rate Respiratory Rate [no pain] Blood Pressure 89/61 87/60 O2 Sat by Pulse 93 96 100 Oximetry 03/16/22 03/16/22 03/16/22 00:06 00:15 00:30 Temperature Pulse Rate 106 H 104 H 105 H Respiratory 25 H 25 H 25 H Rate Respiratory Rate [no pain] Blood Pressure 87/60 84/54 92/60 O2 Sat by Pulse 96 94 94 Oximetry 03/16/22 03/16/22 03/16/22 00:45 00:58 01:00 Temperature 100.8 F H Pulse Rate 106 H 106 H Respiratory 26 H 27 H Rate Respiratory Rate [no pain] Blood Pressure 88/57 96/61 O2 Sat by Pulse 93 91 Oximetry 03/16/22 03/16/22 03/16/22 01:15 01:30 01:35 Temperature Pulse Rate 105 H 105 H 105 H Respiratory 27 H 27 H 24 Rate Respiratory Rate [no pain] Blood Pressure 88/60 88/65 O2 Sat by Pulse 93 89 100 Oximetry 03/16/22 03/16/22 03/16/22 01:45 02:00 02:15 Temperature Pulse Rate 107 H 108 H 108 H Respiratory 26 H 26 H 22 Rate Respiratory Rate [no pain] Blood Pressure 92/64 92/65 93/60 O2 Sat by Pulse 99 96 98 Oximetry 03/16/22 03/16/22 03/16/22 02:21 02:30 02:45 Temperature Pulse Rate 108 H 108 H 108 H Respiratory 24 23 21 Rate Respiratory Rate [no pain] Blood Pressure 91/59 89/59 O2 Sat by Pulse 100 100 100 Oximetry 03/16/22 03/16/22 03/16/22 03:00 03:15 03:30 Temperature Pulse Rate 108 H 106 H 106 H Respiratory 23 19 20 Rate Respiratory Rate [no pain] Blood Pressure 97/66 101/63 91/65 O2 Sat by Pulse 99 100 100 Oximetry 03/16/22 03/16/22 03/16/22 03:45 03:56 04:00 Temperature 100.6 F H Pulse Rate 105 H 105 H Respiratory 21 22 Rate Respiratory Rate [no pain] Blood Pressure 93/64 102/66 O2 Sat by Pulse 100 100 Oximetry 03/16/22 03/16/22 03/16/22 04:15 04:30 04:45 Temperature Pulse Rate 105 H 105 H 102 H Respiratory 24 23 22 Rate Respiratory Rate [no pain] Blood Pressure 99/57 86/57 81/52 O2 Sat by Pulse 99 99 97 Oximetry 03/16/22 03/16/22 03/16/22 05:00 05:15 05:30 Temperature Pulse Rate 104 H 106 H 106 H Respiratory 21 23 22 Rate Respiratory Rate [no pain] Blood Pressure 84/60 94/61 91/54 O2 Sat by Pulse 98 98 96 Oximetry 03/16/22 03/16/22 03/16/22 05:45 06:00 06:15 Temperature Pulse Rate 106 H 106 H 106 H Respiratory 23 22 24 Rate Respiratory Rate [no pain] Blood Pressure 86/56 86/56 96/61 O2 Sat by Pulse 99 100 100 Oximetry 03/16/22 03/16/22 03/16/22 06:21 06:30 06:45 Temperature Pulse Rate 106 H 105 H 105 H Respiratory 21 21 Rate Respiratory Rate [no pain] Blood Pressure 96/59 94/59 O2 Sat by Pulse 100 99 Oximetry 03/16/22 03/16/22 03/16/22 07:00 07:15 07:30 Temperature Pulse Rate 105 H 104 H 107 H Respiratory 23 26 H 26 H Rate Respiratory Rate [no pain] Blood Pressure 89/58 83/59 90/60 O2 Sat by Pulse 93 87 86 Oximetry 03/16/22 03/16/22 03/16/22 07:45 08:00 08:15 Temperature Pulse Rate 108 H 107 H 108 H Respiratory 24 23 23 Rate Respiratory Rate [no pain] Blood Pressure 89/62 99/61 92/65 O2 Sat by Pulse 96 96 98 Oximetry 03/16/22 03/16/22 03/16/22 08:30 08:45 09:00 Temperature Pulse Rate 105 H 108 H 109 H Respiratory 22 22 22 Rate Respiratory Rate [no pain] Blood Pressure 88/57 88/59 98/61 O2 Sat by Pulse 99 98 99 Oximetry 03/16/22 03/16/22 03/16/22 09:15 09:30 09:46 Temperature Pulse Rate 108 H 108 H 106 H Respiratory 21 22 29 H Rate Respiratory Rate [no pain] Blood Pressure 90/61 98/65 105/66 O2 Sat by Pulse 98 98 90 Oximetry 03/16/22 03/16/22 03/16/22 10:00 10:15 10:30 Temperature Pulse Rate 107 H 109 H 109 H Respiratory 26 H 25 H 23 Rate Respiratory 24 Rate [no pain] Blood Pressure 102/57 107/65 95/64 O2 Sat by Pulse 89 96 97 Oximetry 03/16/22 03/16/22 10:45 11:00 Temperature Pulse Rate 109 H 108 H Respiratory 24 23 Rate Respiratory Rate [no pain] Blood Pressure 91/61 91/61 O2 Sat by Pulse 96 97 Oximetry - General Appearance General appearance: sedated on ventilator EENT: PERRL Neck: supple Respiratory: Present: Other (Air entry per vent) Cardiology: regular, S1S2 Gastrointestinal: other (Soft) Neurologic: other (+Arousal) - Lab 03/16/22 04:50 03/16/22 04:50 Most recent lab results ABG pH 7.320 pH Units (7.350-7.450) L 03/15/22 20:55 ABG pCO2 42.9 mm Hg 03/15/22 20:55 ABG pO2 122.8 mm Hg (80.0-90.0) H 03/15/22 20:55 ABG HCO3 21.6 mmol/L (20.0-26.0) 03/15/22 20:55 ABG O2 Saturation 98.2 % (95.0-99.0) 03/15/22 20:55 Calcium 7.6 mg/dL (8.4-10.2) L 03/16/22 04:50 Phosphorus 3.80 mg/dL (2.5-4.5) D 03/16/22 04:50 Magnesium 1.90 mg/dL (1.7-2.3) 03/16/22 04:50 Urine Sodium 64 mmol/L 03/10/22 18:20 Medications & Allergies - Medications Allergies/Adverse Reactions: Allergies Penicillins Allergy (Mild, Verified 01/11/19 12:20) Rash . Home Medications: Home Medications Medication Instructions Recorded Confirmed Last Taken Type Ciprofloxacin HCl [Ciprofloxacin 500 mg PO Q12H #14 tab 01/11/19 Unknown Rx TAB] levETIRAcetam [Keppra TAB] 500 mg PO BID #60 tablet 01/11/19 Unknown Rx Active Medications: Generic Name Dose Route Start Last Admin Trade Name Freq PRN Reason Stop Dose Admin Acetaminophen 650 mg 03/13/22 05:50 03/15/22 13:37 Acetaminophen 325 Mg/10.15 Ml Oral Liqd Unit Dose FEEDTUBE 650 mg Q6H PRN Administration Non Cardiac Pain or Temp>100.5 Bisacodyl 10 mg 03/15/22 10:00 Bisacodyl 5 Mg Tab PO QDAY PRN Constipation Enoxaparin Sodium 40 mg 03/12/22 10:00 03/16/22 09:29 Enoxaparin 40 Mg/0.4 Ml Inj SUB-Q 40 mg QDAY@1000 SHAHBAZ Administration Protocol Famotidine 20 mg 03/12/22 10:00 03/16/22 09:30 Famotidine 20 Mg Tab FEEDTUBE 20 mg BID SHAHBAZ Administration Fentanyl 50 mcg 03/10/22 10:58 03/14/22 20:48 Fentanyl 100 Mcg/2 Ml Inj IV 50 mcg Q10MIN PRN Administration ANALGESIA Hydrophilic Ointment 1 applic 03/10/22 11:03 Lip Therapy Vaseline TP Q2HR PRN Dry Lips Fentanyl Citrate 2,000 mcg in 100 mls @ 4.16 mls/hr 03/10/22 11:00 03/16/22 06:16 Fentanyl Drip Premix IV 3 mcg/kg/hr TITR SHAHBAZ 12.48 mls/hr Administration Protocol 1 MCG/KG/HR NORepinephrine/NS 8 MG-250 ML 8 mg in 250 mls @ 3.75 mls/hr 03/10/22 11:00 03/15/22 19:00 Norepinephrine/Ns 8 Mg-250 Ml (Double Conc) IV 6 mcg/min TITRATE SHAHBAZ 11.25 mls/hr Titration Protocol 2 MCG/MIN Meropenem/Sodium Chloride 1 gram in 100 mls @ 100 mls/hr 03/14/22 22:00 03/16/22 05:00 Merrem/Ns 1 Gram/100 Ml IV 100 mls/hr Q8H SHAHBAZ Administration Protocol Levetiracetam 500 mg 03/12/22 10:00 03/16/22 09:29 Levetiracetam 500 Mg/5 Ml Oral Liqd FEEDTUBE 500 mg BID SHAHBAZ Administration Magnesium Hydroxide 30 ml 03/10/22 02:56 Magnesium Hydroxide (Mom) Oral Liqd Udc PO Q4H PRN Constipation Multi-Ingred Cream/Lotion/Oil/Oint 1 applic 03/10/22 11:03 Mineral Oil/Petrolatum, White Ophth Oint 3.5 Gm OU Q4HR PRN Dry Eye(s) Ondansetron HCl 4 mg 03/10/22 02:56 Ondansetron 4 Mg/2 Ml Inj IV Q8H PRN Nausea And Vomiting Polyethylene Glycol 17 gm 03/12/22 10:00 03/15/22 09:25 Polyethylene Glycol 3350 17 Gm Powder FEEDTUBE 17 gm QDAY SHAHBAZ Administration Senna/Docusate Sodium 2 tab 03/14/22 10:00 03/16/22 09:31 Sennosides/Docusate Sodium 8.6/50 Mg Tab FEEDTUBE 2 tab Q12H SHAHBAZ Administration Sodium Chloride 10 ml 03/10/22 10:00 03/16/22 09:31 Sodium Chloride 0.9% 10 Ml Flush Syringe IV 10 ml BID SHAHBAZ Administration Sodium Chloride 10 ml 03/10/22 02:56 Sodium Chloride 0.9% 10 Ml Flush Syringe IV PRN PRN LINE FLUSH
[2022-03-16] MEDS: POLYETHYLENE GLYCOL 3350 17 GM POWDER FEEDTUBE SCH (12:23)
--- NOTE | 2022-03-16 14:01 | Progress Note ---
Assessment and Plan - Patient Problems (1) Respiratory failure Current Visit: Yes Status: Acute Plan to address problem: Patient has a history of multiple sclerosis, no reported cardiac history, presented to the hospital with respiratory insufficiency and currently on the vent in the ICU. Chest x-ray showed confluent consolidations in both lung fraire consistent with a severe bilateral pneumonia. A COVID-19 test was positive. Cardiac consultation was requested for the finding of a nonspecific, isolated rise in troponin levels. EKG show sinus rhythm with no acute ischemic changes. Echocardiogram done on this presentation shows left ventricular systolic ejection fraction at the lower limits of normal 50%. No acute cardiovascular issues at this time, will continue supportive management of cardiac status, defer treatment of respiratory failure and bilateral pneumonia to internal medicine and pulmonary. Subjective Date of service: 03/16/22 Principal diagnosis: AHRF; Multifocal Pneumonia; Septic shock; NSTEMI; AMS; Seizures Interval history: Patient is on the vent, sedated, no new cardiac events reported. Heart rate is 106, sinus. Objective Vital Signs Temp Pulse Resp Resp BP Pulse Ox 03/16/22 13:15 111 H 24 97/64 93 03/16/22 13:00 110 H 24 101/64 92 03/16/22 12:45 109 H 24 99/67 95 03/16/22 12:30 110 H 22 89/64 98 03/16/22 12:15 110 H 23 97/62 96 03/16/22 12:00 110 H 21 95/61 96 03/16/22 11:45 109 H 24 97/60 92 03/16/22 11:30 109 H 23 91/64 96 03/16/22 11:15 109 H 23 93/65 99 03/16/22 11:00 108 H 23 91/61 97 03/16/22 10:45 109 H 24 91/61 96 03/16/22 10:30 109 H 23 95/64 97 03/16/22 10:15 109 H 25 H 107/65 96 03/16/22 10:00 107 H 26 H 24 102/57 89 03/16/22 09:46 106 H 29 H 105/66 90 03/16/22 09:30 108 H 22 98/65 98 03/16/22 09:15 108 H 21 90/61 98 03/16/22 09:00 109 H 22 98/61 99 03/16/22 08:45 108 H 22 88/59 98 03/16/22 08:30 105 H 22 88/57 99 03/16/22 08:15 108 H 23 92/65 98 03/16/22 08:00 107 H 23 99/61 96 03/16/22 07:45 108 H 24 89/62 96 03/16/22 07:30 107 H 26 H 90/60 86 03/16/22 07:15 104 H 26 H 83/59 87 03/16/22 07:00 105 H 23 89/58 93 03/16/22 06:45 105 H 21 94/59 99 03/16/22 06:30 105 H 21 96/59 100 03/16/22 06:21 106 H 03/16/22 06:15 106 H 24 96/61 100 03/16/22 06:00 106 H 22 86/56 100 03/16/22 05:45 106 H 23 86/56 99 03/16/22 05:30 106 H 22 91/54 96 03/16/22 05:15 106 H 23 94/61 98 03/16/22 05:00 104 H 21 84/60 98 03/16/22 04:45 102 H 22 81/52 97 03/16/22 04:30 105 H 23 86/57 99 03/16/22 04:15 105 H 24 99/57 99 03/16/22 04:00 105 H 22 102/66 100 03/16/22 03:56 100.6 F H 03/16/22 03:45 105 H 21 93/64 100 03/16/22 03:30 106 H 20 91/65 100 03/16/22 03:15 106 H 19 101/63 100 03/16/22 03:00 108 H 23 97/66 99 03/16/22 02:45 108 H 21 89/59 100 03/16/22 02:30 108 H 23 91/59 100 03/16/22 02:21 108 H 24 100 03/16/22 02:15 108 H 22 93/60 98 03/16/22 02:00 108 H 26 H 92/65 96 03/16/22 01:45 107 H 26 H 92/64 99 03/16/22 01:35 105 H 24 100 03/16/22 01:30 105 H 27 H 88/65 89 03/16/22 01:15 105 H 27 H 88/60 93 03/16/22 01:00 106 H 27 H 96/61 91 03/16/22 00:58 100.8 F H 03/16/22 00:45 106 H 26 H 88/57 93 03/16/22 00:30 105 H 25 H 92/60 94 03/16/22 00:15 104 H 25 H 84/54 94 03/16/22 00:06 106 H 25 H 87/60 96 03/16/22 00:05 106 H 24 100 03/16/22 00:00 106 H 26 H 87/60 96 03/15/22 23:53 101 H 22 89/61 93 03/15/22 23:45 105 H 25 H 89/61 98 03/15/22 23:35 105 H 4 L 100/55 98 03/15/22 23:30 106 H 25 H 87/61 98 03/15/22 23:15 105 H 23 86/58 98 03/15/22 23:00 106 H 26 H 86/62 96 03/15/22 22:45 105 H 24 90/56 98 03/15/22 22:30 105 H 24 24 100/55 98 03/15/22 22:15 105 H 23 91/58 94 03/15/22 22:00 101 H 29 H 82/58 90 03/15/22 21:46 103 H 26 H 100/61 91 03/15/22 21:30 102 H 24 88/60 86 03/15/22 21:24 102 H 27 H 100 03/15/22 21:15 101 H 23 92/63 89 03/15/22 21:00 101 H 23 88/60 92 03/15/22 20:45 100 H 19 103/62 100 03/15/22 20:30 100 H 19 95/68 100 03/15/22 20:15 101 H 20 86/65 100 03/15/22 20:14 102 H 100 03/15/22 20:00 104 H 20 91/67 100 03/15/22 19:45 101 H 20 94/66 100 03/15/22 19:41 99.8 F H 03/15/22 19:30 102 H 4 L 91/61 100 03/15/22 19:15 101 H 20 96/61 100 06/30/22 19:00 101 H 24 91/57 96 03/15/22 18:45 104 H 23 99/66 100 03/15/22 18:30 102 H 19 96/68 100 03/15/22 18:15 102 H 21 90/66 100 03/15/22 18:00 103 H 21 95/64 100 03/15/22 17:45 105 H 22 92/62 100 03/15/22 17:30 105 H 22 101/65 100 03/15/22 17:15 106 H 24 95/65 98 03/15/22 17:00 107 H 25 H 87/63 99 03/15/22 16:46 108 H 29 H 90/66 85 03/15/22 16:30 107 H 26 H 83/58 95 03/15/22 16:29 100.2 F H 03/15/22 16:15 107 H 25 H 87/56 97 03/15/22 16:00 108 H 25 H 82/57 96 03/15/22 15:45 110 H 26 H 86/62 96 03/15/22 15:30 110 H 24 86/57 90 03/15/22 15:15 103 H 26 H 80/49 97 03/15/22 15:00 103 H 23 76/47 98 03/15/22 14:45 106 H 25 H 93/59 92 03/15/22 14:30 108 H 27 H 94/61 89 03/15/22 14:15 109 H 29 H 96/59 87 - Physical Examination General: Other (intubated on mechanical ventilator) HEENT: Positive: PERRL Neck: Positive: neck supple, trachea midline. Negative: JVD/HJR Cardiac: Positive: Regular Rhythm Lungs: Positive: Decreased Breath Sounds Neuro: Positive: Other (Intubated, sedated on the vent) Abdomen: Positive: Soft Skin: Positive: Clear, Other (multiple wounds) Extremities: Absent: edema - Labs and Meds CBC 03/16/22 Range/Units 04:50 WBC 16.9 H (4.5-11.0) K/mm3 RBC 2.53 L (3.65-5.03) M/mm3 Hgb 7.1 L (10.1-14.3) gm/dl Hct 21.5 L (30.3-42.9) % Plt Count 262 (140-440) K/mm3 Comprehensive Metabolic Panel 03/16/22 Range/Units 04:50 Sodium 132 L (137-145) mmol/L Potassium 4.7 (3.6-5.0) mmol/L Chloride 99.6 (98-107) mmol/L Carbon Dioxide 20 L (22-30) mmol/L BUN 44 H (7-17) mg/dL Creatinine 0.7 (0.6-1.2) mg/dL Glucose 123 H (65-100) mg/dL Calcium 7.6 L (8.4-10.2) mg/dL - Allied health notes Allied health notes reviewed: nursing
--- NOTE | 2022-03-16 15:06 | XRay Report ---
CHEST - 1 VIEW 0435 hours INDICATION: follow up respiratory failure COMPARISON: Yesterday FINDINGS: Support devices: Stable support device positioning. Heart: Stable borderline heart size. Lungs/pleura: Stable diffuse bilateral lung opacities or congestive changes. No large pleural effusi on or pneumothorax. Additional findings: None. IMPRESSION: Unchanged exam. Signer Name: Haile Figueroa Jr, MD Signed: 03/16/2022 3:01 PM Workstation Name: [id number]
--- NOTE | 2022-03-17 02:35 | XRay Report ---
XR chest 1V ap INDICATION / CLINICAL INFORMATION: follow up respiratory failure. COMPARISON: Radiograph from yesterday. FINDINGS: SUPPORT DEVICES: Unchanged. HEART /PULMONARY VASCULATURE: Unchanged. LUNGS / PLEURA: Stable diffuse bilateral lung opacities and/or congestive changes. No pneumothorax. IMPRESSION: 1. No significant interval change. Signer Name: Chaitanya Skaggs MD Signed: 03/17/2022 2:31 AM Workstation Name: [id number]
[2022-03-17] MEDS: fentaNYL DRIP Premix 2,000 MCG/100 ML BAG IV SCH ×3 (03:18→17:51)
[2022-03-17 04:19] LABS: Hematocrit 20.6 % (30.3-42.9); Hemoglobin 6.6 gm/dl (10.1-14.3); Mean Corpuscular HGB Conc 32 % (30-34); Mean Corpuscular Volume 84 fl (79-97); Platelet Count 270 K/mm3 (140-440); Red Blood Count 2.44 M/mm3 (3.65-5.03); Red Cell Distribution Width 16.4 % (13.2-15.2)
[2022-03-17 04:56] LABS: Blood Urea Nitrogen 55 mg/dL (7-17); Calcium 8.1 mg/dL (8.4-10.2); Hemolysis Index 12
[2022-03-17 04:57] LABS: BUN/Creatinine Ratio 79
[2022-03-17 05:21] LABS: Anisocytosis 1+; Band Neutrophils # (Manual) 0.6 K/mm3; Basophils % (Manual) 0 % (0.0-1.8); Hypochromasia 1+; Myelocytes # (Manual) 0.6 K/mm3; Promyelocytes # (Manual) 0.2 K/mm3; Total Cells Counted 100
[2022-03-17 05:22] LABS: Platelet Estimate Consistent w Auto
[2022-03-17] MEDS: NORepinephrine/NS 8 MG-250 ML 8 MG/250 ML INFUS..BTL IV SCH (05:42)
[2022-03-17] MEDS: MEROPENEM/NS 1 GRAM/100 ML 1 GRAM/100 ML BAG IV SCH ×3 (05:45→22:15)
[2022-03-17 06:12] LABS: ABG PCO2 44.3 mm Hg; ABG PH 7.334 pH Units (7.350-7.450)
[2022-03-17 06:13] LABS: ABG Base Excess -2.7 mmol/L (-2.0-3.0); ABG Methemoglobin 0.3 % (0.0-1.5); ABG PO2 132.4 mm Hg (80.0-90.0)
[2022-03-17] MEDS ORDERED: SODIUM CHLORIDE 0.9% 500 ML 500 ML IV NR (07:33)
--- NOTE | 2022-03-17 08:03 | Progress Note ---
Assessment and Plan Assessment and plan: Interval history: This is a 61-year-old female with multiple sclerosis and seizure disorder who presented to emergency department on 03/10 via EMS for evaluation of shortness of breath and difficulty breathing. Upon arrival of EMS patient's SPO2 was in the 50s and she was hypotensive to 80s over 50s and was started on IV fluids in route and placed on CPAP. Upon arrival to the emergency department patient was placed on BiPAP and work-up in the emergency department included a CXR which showed multifocal pneumonia, lab work revealed hyponatremia, hypokalemia, lactic acidosis, metabolic acidosis and elevated troponins. Patient was started on empiric antibiotics and admitted to the hospital service with Sepsis, acute hypoxic respiratory failure, electrolyte imbalances and elevated troponins with consults to cardiology, pulmonology and nephrology. Hospital Course to Date: 03/10: S/p intubation this am due to tachypnea and worsen mental status. Current sedated and stable on the vent. Patient is now on low dose Levophed gtt due to hypotension. Presented with a Na level of 119, on continuous NS at 125ml, repeat BMP pending. Continue IVF hydration and serial Na Q6hrs. Nephrology is also following. Continue empiric IV Abx for CAP, COVID PCR pending, ID consult pending. D-Dimer also elevated, BLE doppler ordered, therapeutic Lovenox initiat ed. D/W CCM patient is too unstable for transport at this time, possible CTA chest in the am or once patient is more stable. Cardiology was also consulted for elevated troponin X2, EKG noted with no significant ST changes, 2D echo pending. Resume home AEDs, continue seizure precautions. Monitor and replace electrolytes as needed 03/11: Intubated and low dose fentanyl gtt. Open eyes spontaneously but does not track, not following commands. NA level 132 this am, Nabcarb gtt initiated per Nephro. CT head/brain w/o con ordered to r/o intracranial abnormality. Wean off sedation to better assess mental status. Remains on Levophed gtt, afebrile, but with leukocytosis this am. This am CXR and ABG noted, with significant improvement. D/w CCM, PE less likely will hold off on CTA chest for now. Lovenox switched to Qday. Continue empiric IV Abx, ID consult pending. 03/12: Discontinue bicarb gtt, replete phos and potassium, added miralax. Remain on levo and fent gtt 03/13: MRI brain/C-spine completed, EEG completed. Hyponatremia improved, patient remains on Levophed. Had a temperature of 101.3 remains on cefepime. Will defer to ID for abx. Will reculture on next temperature spike. 03/14: Overnight patient had hypoxia issues and FiO2 was increased to 100%, received lasix with repeat dose in AM. Hypotension and increase in levophed. Replete K. 03/15: hypoxia overnight and currently on 100%. RN attempted to lay flat and patient desatted to 88%. Will attempt again later today. Given lasix again. Hopeful to be able to have MRI today. Type and screen today for downtrending h/h, Wean FiO2 as tolerated, repelted phos with sodium phos. 03/16: hypoxic, fio2: 80%, desats on positional movements. Remains on levophed gtt, attempting to wean off. Remains too unstable for MRI brain. May benefit from steroids if altered mentation believed to be from MS flare. 03/17: Hypoxic overnight. FIO2 increased to 95%. Continue icu level supportive care with vent, levophed Gtt, merrem. Hgb 6.6 this AM, ordered 1 unit prbc. Assessment and Plan Neuro: Acute metabolic encephalopathy, h/o Multiple Sclerosis, Seizure disorder -Neurology consulted, appreciate recommendations -Sedated with Fentanyl gtt -RASS goal 0 to -1 -Keppra -Reorientation as needed -Maintain sleep-wake cycle -Seizure precautions -As needed analgesia -CT head shows vascular angioplasty without clear evidence of acute intracranial hemorrhage -MRI brain with and without contrast and MRI C-spine with and without contrast pending -EEG considered abnormal and is compatible with diffuse encephalopathy of perhaps significant brain sedation or neuro active medication or daily combination of both. Absence of epileptiform abnormality but would not rule out possibility of epilepsy -UDS (+) for opiates -Prealbumin 0.044, vitamin B 12 1021, folate 2.15, syphilis nonreactive Cardiac: Hypotension, Elevated troponin -Cardiology consulted, appreciate recommendations -BNP [id number] -Blood pressure monitoring per protocol -Vasopressor support with Levophed gtt -MAP goal greater than 65 -Echocardiogram LVEF 50%, no pulmonary HTN Respiratory: ARDS, Acute hypoxic respiratory failure -[facility] consulted, appreciate recommendations -Intubated on 03/10 with 7.5 OETT at 23 cm at the lips in the ED -A.m. vent settings: AC TV 400, Rate 14, PEEP 10, FiO2 @ 100% -See RT notes for titration -s/p lasix x 2 03/14, lasix today -A.m. ABG and CXR noted -VAP bundle -SPO2 monitoring GI: Moderate Protein Calorie Malnutrition, Transaminitis -24 hours + 1832 mL -PPI -NTR consulted for tube feedings -BR: Miralax, Senokot S -Trend LFTs : Severe hyponatremia, hypophosphatemia -Nephrology consulted, appreciate recommendations -Record intake and output -s/p Sodium Bicarb gtt -Renally dose medications -Avoid nephrotoxic medications -Replete phosphate -Trend BMP ID: Septic Shock, CAP, lactic acidosis (resolved) -Covid 19 PCR (-) -Infectious disease consulted, appreciate recommendation -Antibiotic therapy escalated to merropenum -f/u blood culture -Monitor WBC and temperature curve Endo: NAD -Avoid hypoglycemia -SSI -Accu-Cheks q. 6hr Heme: Leukocytosis -Trend CBC -Transfuse hemoglobin less than 7 -SCDs to BLE while in bed The high probability of a clinically significant, sudden or life threatening deterioration of the [multiple] system(s) required my full and direct attention, intervention and personal management. The aggregate critical care time was [60] minutes. This time is in addition to time spent performing reported procedures but includes the following: [x] Data Review and interpretation [x] Patient assessment and monitoring of vital signs [x] Documentation [x] Medication orders and management Disposition Plan: icu Total Time Spent with Patient (Minutes): 60 History Interval history: Intubated and sedated. Hospitalist Physical - Physical exam Narrative exam: General appearance: Present: no acute distress, other (sedated, intubated) - EENT Eyes: Present: PERRL, EOM intact ENT: poor dentition - Neck Neck: Present: normal ROM - Respiratory Respiratory effort: normal Respiratory: bilateral: diminished, rhonchi - Cardiovascular Rhythm: regular Heart Sounds: Present: S1 & S2. Absent: systolic murmur, diastolic murmur - Extremities Extremities: no ischemia, pulses intact, pulses symmetrical, No edema, normal temperature, normal color Peripheral Pulses: within normal limits - Abdominal General gastrointestinal: soft, non-tender, non-distended, normal bowel sounds - Integumentary Integumentary: Present: warm, dry - Psychiatric Psychiatric: other - Neurologic Neurologic: other (moves BUE, intermittently follows commands, intact cough/gag) - Allied Health Allied health notes reviewed: nursing, RT, social work - Constitutional Vitals: Temp Pulse Resp BP Pulse Ox 98.2 F 107 H 23 90/63 100 03/17/22 03:32 03/17/22 07:27 03/17/22 06:30 03/17/22 07:27 03/17/22 07:27 General appearance: Present: no acute distress, other (sedated, intubated) HEART Score - HEART Score Troponin: Troponin T 0.032 ng/mL (0.00-0.029) H D 03/10/22 12:24 Results - Labs CBC & Chem 7: 03/17/22 04:00 03/17/22 04:00 Labs: Laboratory Last Values WBC 19.1 K/mm3 (4.5-11.0) H 03/17/22 04:00 RBC 2.44 M/mm3 (3.65-5.03) L 03/17/22 04:00 Hgb 6.6 gm/dl (10.1-14.3) L 03/17/22 04:00 Hct 20.6 % (30.3-42.9) L 03/17/22 04:00 MCV 84 fl (79-97) 03/17/22 04:00 MCH 27 pg (28-32) L 03/17/22 04:00 MCHC 32 % (30-34) 03/17/22 04:00 RDW 16.4 % (13.2-15.2) H 03/17/22 04:00 Plt Count 270 K/mm3 (140-440) 03/17/22 04:00 Lymph % (Auto) 8.9 % (13.4-35.0) L 03/11/22 05:00 [place] % (Auto) 4.2 % (0.0-7.3) 03/11/22 05:00 Eos % (Auto) 0.1 % (0.0-4.3) 03/11/22 05:00 Baso % (Auto) 0.2 % (0.0-1.8) 03/11/22 05:00 Lymph # (Auto) 1.2 K/mm3 (1.2-5.4) 03/11/22 05:00 [place] # (Auto) 0.6 K/mm3 (0.0-0.8) 03/11/22 05:00 Eos # (Auto) 0.0 K/mm3 (0.0-0.4) 03/11/22 05:00 Baso # (Auto) 0.0 K/mm3 (0.0-0.1) 03/11/22 05:00 Add Manual Diff Complete 03/17/22 04:00 Total Counted 100 03/17/22 04:00 Seg Neutrophils % 86.6 % (40.0-70.0) H 03/11/22 05:00 Seg Neuts % (Manual) 78.0 % (40.0-70.0) H 03/17/22 04:00 Band Neutrophils % 3.0 % 03/17/22 04:00 Lymphocytes % (Manual) 2.0 % (13.4-35.0) L 03/17/22 04:00 Reactive Lymphs % (Man) 0 % 03/17/22 04:00 Monocytes % (Manual) 7.0 % (0.0-7.3) 03/17/22 04:00 Eosinophils % (Manual) 3.0 % (0.0-4.3) 03/17/22 04:00 Basophils % (Manual) 0 % (0.0-1.8) 03/17/22 04:00 Metamyelocytes % 3.0 % 03/17/22 04:00 Myelocytes % 3.0 % 03/17/22 04:00 Promyelocytes % 1.0 % 03/17/22 04:00 Blast Cells % 0 % 03/17/22 04:00 Nucleated RBC % Not Reportable 03/17/22 04:00 Seg Neutrophils # 11.8 K/mm3 (1.8-7.7) H 03/11/22 05:00 Seg Neutrophils # Man 14.9 K/mm3 (1.8-7.7) H 03/17/22 04:00 Band Neutrophils # 0.6 K/mm3 03/17/22 04:00 Lymphocytes # (Manual) 0.4 K/mm3 (1.2-5.4) L 03/17/22 04:00 Abs React Lymphs (Man) 0.0 K/mm3 03/17/22 04:00 Monocytes # (Manual) 1.3 K/mm3 (0.0-0.8) H 03/17/22 04:00 Eosinophils # (Manual) 0.6 K/mm3 (0.0-0.4) H 03/17/22 04:00 Basophils # (Manual) 0.0 K/mm3 (0.0-0.1) 03/17/22 04:00 Metamyelocytes # 0.6 K/mm3 03/17/22 04:00 Myelocytes # 0.6 K/mm3 03/17/22 04:00 Promyelocytes # 0.2 K/mm3 03/17/22 04:00 Blast Cells # 0.0 K/mm3 03/17/22 04:00 WBC Morphology Not Reportable 03/17/22 04:00 Hypersegmented Neuts Not Reportable 03/17/22 04:00 Hyposegmented Neuts Not Reportable 03/17/22 04:00 Hypogranular Neuts Not Reportable 03/17/22 04:00 Smudge Cells Not Reportable 03/17/22 04:00 Toxic Granulation Not Reportable 03/17/22 04:00 Toxic Vacuolation Not Reportable 03/17/22 04:00 Dohle Bodies Not Reportable 03/17/22 04:00 Pelger-Huet Anomaly Not Reportable 03/17/22 04:00 Luis Rods Not Reportable 03/17/22 04:00 Platelet Estimate Consistent w auto 03/17/22 04:00 Clumped Platelets Not Reportable 03/17/22 04:00 Plt Clumps, EDTA Not Reportable 03/17/22 04:00 Large Platelets Not Reportable 03/17/22 04:00 Giant Platelets Not Reportable 03/17/22 04:00 Platelet Satelliting Not Reportable 03/17/22 04:00 Plt Morphology Comment Not Reportable 03/17/22 04:00 RBC Morphology Not Reportable 03/17/22 04:00 Dimorphic RBCs Not Reportable 03/17/22 04:00 Polychromasia Not Reportable 03/17/22 04:00 Hypochromasia 1+ 03/17/22 04:00 Poikilocytosis Not Reportable 03/17/22 04:00 Anisocytosis 1+ 03/17/22 04:00 Microcytosis 1+ 03/17/22 04:00 Macrocytosis Not Reportable 03/17/22 04:00 Spherocytes Not Reportable 03/17/22 04:00 Pappenheimer Bodies Not Reportable 03/17/22 04:00 Sickle Cells Not Reportable 03/17/22 04:00 Target Cells Not Reportable 03/17/22 04:00 Tear Drop Cells Not Reportable 03/17/22 04:00 Ovalocytes Not Reportable 03/17/22 04:00 Helmet Cells Not Reportable 03/17/22 04:00 [place] Bodies Not Reportable 03/17/22 04:00 [place] Rings Not Reportable 03/17/22 04:00 [place] Cells Not Reportable 03/17/22 04:00 Bite Cells Not Reportable 03/17/22 04:00 Crenated Cell Not Reportable 03/17/22 04:00 Elliptocytes Not Reportable 03/17/22 04:00 Acanthocytes (Spur) Not Reportable 03/17/22 04:00 Rouleaux Not Reportable 03/17/22 04:00 Hemoglobin C Crystals Not Reportable 03/17/22 04:00 Schistocytes Not Reportable 03/17/22 04:00 Malaria parasites Not Reportable 03/17/22 04:00 Tani Bodies Not Reportable 03/17/22 04:00 Hem Pathologist Commnt No 03/17/22 04:00 PT 14.9 Sec. (12.2-14.9) 03/10/22 01:25 INR 1.03 (0.87-1.13) 03/10/22 01:25 D-Dimer 787.78 ng/mlDDU (0-234) H 03/10/22 05:45 ABG pH 7.334 pH Units (7.350-7.450) L 03/17/22 05:00 ABG pCO2 44.3 mm Hg 03/17/22 05:00 ABG pO2 132.4 mm Hg (80.0-90.0) H 03/17/22 05:00 ABG HCO3 23.0 mmol/L (20.0-26.0) 03/17/22 05:00 ABG O2 Saturation 99.0 % (95.0-99.0) 03/17/22 05:00 ABG O2 Content 9.8 (0.0-44) 03/15/22 20:55 ABG Base Excess -2.7 mmol/L (-2.0-3.0) L 03/17/22 05:00 ABG Hemoglobin 9.1 gm/dl (12.0-16.0) L 03/17/22 05:00 ABG Carboxyhemoglobin 1.3 % (0.0-5.0) 03/17/22 05:00 ABG Methemoglobin 0.3 % (0.0-1.5) 03/17/22 05:00 Oxyhemoglobin 97.4 % (95.0-99.0) 03/17/22 05:00 FiO2 100 % 03/17/22 05:00 Sodium 134 mmol/L (137-145) L 03/17/22 04:00 Potassium 4.8 mmol/L (3.6-5.0) 03/17/22 04:00 Chloride 100.7 mmol/L (98-107) 03/17/22 04:00 Carbon Dioxide 24 mmol/L (22-30) 03/17/22 04:00 Anion Gap 14 mmol/L 03/17/22 04:00 BUN 55 mg/dL (7-17) H 03/17/22 04:00 Creatinine 0.7 mg/dL (0.6-1.2) 03/17/22 04:00 Estimated GFR > 60 ml/min 03/17/22 04:00 BUN/Creatinine Ratio 79 % 03/17/22 04:00 Glucose 125 mg/dL (65-100) H 03/17/22 04:00 POC Glucose 115 mg/dL (70-105) H 03/17/22 05:40 Osmolality 285 Mosm/kg 03/10/22 12:24 Lactic Acid 1.70 mmol/L (0.7-2.0) 03/11/22 05:00 Uric Acid 1.6 mg/dL (3.5-7.6) L 03/10/22 13:15 Calcium 8.1 mg/dL (8.4-10.2) L 03/17/22 04:00 Phosphorus 3.80 mg/dL (2.5-4.5) D 03/16/22 04:50 Magnesium 1.90 mg/dL (1.7-2.3) 03/16/22 04:50 Ferritin 219.2 ng/mL (10.0-200.0) H 03/10/22 05:45 Total Bilirubin 0.30 mg/dL (0.1-1.2) 03/15/22 04:10 AST 28 units/L (5-40) 03/15/22 04:10 ALT 10 units/L (7-56) 03/15/22 04:10 Alkaline Phosphatase 71 units/L (35-129) 03/15/22 04:10 Lactate Dehydrogenase 210 units/L (91-180) H 03/10/22 05:45 Total Creatine Kinase 901 units/L (30-135) H 03/10/22 12:24 CK-MB (CK-2) 15.3 ng/mL (0.0-4.0) H 03/10/22 12:24 CK-MB (CK-2) Rel Index 1.6 (0-4) 03/10/22 12:24 Troponin T 0.032 ng/mL (0.00-0.029) H D 03/10/22 12:24 C-Reactive Protein < 0.03 mg/dL (0.00-1.30) 03/10/22 05:45 NT-Pro-B Natriuret Pep 47813 pg/mL (0-900) H 03/10/22 01:25 Total Protein 5.3 g/dL (6.3-8.2) L 03/15/22 04:10 Albumin 2.1 g/dL (3.9-5) L 03/15/22 04:10 Albumin/Globulin Ratio 0.7 % 03/15/22 04:10 Prealbumin 0.044 g/L (0.200-0.400) L 03/12/22 18:40 Triglycerides 47 mg/dL (2-149) 03/10/22 01:25 Cholesterol 259 mg/dL (50-199) H 03/10/22 01:25 LDL Cholesterol Direct 187 mg/dL (50-130) H 03/10/22 01:25 HDL Cholesterol 63 mg/dL (40-59) H 03/10/22 01:25 Cholesterol/HDL Ratio 4.11 % 03/10/22 01:25 Lipase 15 units/L (13-60) 03/10/22 01:25 Vitamin B12 1021 pg/mL (211-911) H 03/12/22 18:40 Folate 2.15 ng/mL (7.3-26.0) L 03/12/22 18:40 Procalcitonin 3.92 ng/mL (<0.15) 03/10/22 05:45 TSH 1.290 mlU/mL (0.270-4.200) 03/12/22 18:40 Urine Color Yellow (Yellow) 03/10/22 18:20 Urine Turbidity Clear (Clear) 03/10/22 18:20 Urine pH 6.0 (5.0-7.0) 03/10/22 18:20 Ur Specific [place] 1.010 (1.003-1.030) 03/10/22 18:20 Urine Protein <15 mg/dl mg/dL (Negative) 03/10/22 18:20 Urine Glucose (UA) Neg mg/dL (Negative) 03/10/22 18:20 Urine Ketones Tr mg/dL (Negative) 03/10/22 18:20 Urine Blood Sm (Negative) 03/10/22 18:20 Urine Nitrite Neg (Negative) 03/10/22 18:20 Urine Bilirubin Neg (Negative) 03/10/22 18:20 Urine Urobilinogen < 2.0 mg/dL (<2.0) 03/10/22 18:20 Ur Leukocyte Esterase Lg (Negative) 03/10/22 18:20 Urine WBC (Auto) 105.0 /HPF (0.0-6.0) H 03/10/22 18:20 Urine RBC (Auto) 2.0 /HPF (0.0-6.0) 03/10/22 18:20 U Epithel Cells (Auto) < 1.0 /HPF (0-13.0) 03/10/22 18:20 Urine Bacteria (Auto) 1+ /HPF (Negative) 03/10/22 18:20 Urine Osmolality 368 Mosm/kg 03/10/22 18:20 Urine Sodium 64 mmol/L 03/10/22 18:20 Urine Opiates Screen Presumptive positive 03/10/22 18:20 Urine Methadone Screen Presumptive negative 03/10/22 18:20 Ur Barbiturates Screen Presumptive negative 03/10/22 18:20 Ur Phencyclidine Scrn Presumptive negative 03/10/22 18:20 Ur Amphetamines Screen Presumptive negative 03/10/22 18:20 U Benzodiazepines Scrn Presumptive negative 03/10/22 18:20 Urine Cocaine Screen Presumptive negative 03/10/22 18:20 U Marijuana (THC) Screen Presumptive negative 03/10/22 18:20 Drugs of Abuse Note Disclamer 03/10/22 18:20 Copper 118 mcg/dL (70-175) 03/12/22 18:40 Syphilis IgG/IgM Ab Nonreactive (NonReactive) 03/12/22 18:40 SARS-CoV-2 (PCR) Negative (Negative) 03/10/22 09:50 Blood Type O POSITIVE 03/15/22 09:42 Antibody Screen Negative 03/15/22 09:42 Crossmatch See Detail 03/15/22 09:42 Microbiology: Microbiology 03/14/22 Unknown Urine,Catheterized - Straight Catheter Urine Culture - Preliminary NO GROWTH AFTER 24 HOURS [place]/IV: Voiding Method Indwelling Catheter Active Medications - Current Medications Current Medications: Generic Name Dose Route Start Last Admin Trade Name Freq PRN Reason Stop Dose Admin Acetaminophen 650 mg 03/13/22 05:50 03/15/22 13:37 Acetaminophen 325 Mg/10.15 Ml Oral Liqd Unit Dose FEEDTUBE 650 mg Q6H PRN Administration Non Cardiac Pain or Temp>100.5 Bisacodyl 10 mg 03/15/22 10:00 Bisacodyl 5 Mg Tab PO QDAY PRN Constipation Enoxaparin Sodium 40 mg 03/12/22 10:00 03/16/22 09:29 Enoxaparin 40 Mg/0.4 Ml Inj SUB-Q 40 mg QDAY@1000 SHAHBAZ Administration Protocol Famotidine 20 mg 03/12/22 10:00 03/16/22 22:41 Famotidine 20 Mg Tab FEEDTUBE 20 mg BID SHAHBAZ Administration Fentanyl 50 mcg 03/10/22 10:58 03/14/22 20:48 Fentanyl 100 Mcg/2 Ml Inj IV 50 mcg Q10MIN PRN Administration ANALGESIA Hydrophilic Ointment 1 applic 03/10/22 11:03 Lip Therapy Vaseline TP Q2HR PRN Dry Lips Fentanyl Citrate 2,000 mcg in 100 mls @ 4.16 mls/hr 03/10/22 11:00 03/17/22 03:18 Fentanyl Drip Premix IV 3 mcg/kg/hr TITR SHAHBAZ 12.48 mls/hr Administration Protocol 1 MCG/KG/HR NORepinephrine/NS 8 MG-250 ML 8 mg in 250 mls @ 3.75 mls/hr 03/10/22 11:00 03/17/22 05:42 Norepinephrine/Ns 8 Mg-250 Ml (Double Conc) IV 6 mcg/min TITRATE SHAHBAZ 11.25 mls/hr Administration Protocol 2 MCG/MIN Meropenem/Sodium Chloride 1 gram in 100 mls @ 100 mls/hr 03/14/22 22:00 03/17/22 05:45 Merrem/Ns 1 Gram/100 Ml IV 100 mls/hr Q8H SHAHBAZ Administration Protocol Sodium Chloride 500 mls @ 0 mls/hr 03/17/22 07:33 Nacl 0.9% 500 Ml IV 03/17/22 23:59 ONCE NR As Directed Levetiracetam 500 mg 03/12/22 10:00 03/16/22 22:41 Levetiracetam 500 Mg/5 Ml Oral Liqd FEEDTUBE 500 mg BID SHAHBAZ Administration Magnesium Hydroxide 30 ml 03/10/22 02:56 Magnesium Hydroxide (Mom) Oral Liqd Udc PO Q4H PRN Constipation Multi-Ingred Cream/Lotion/Oil/Oint 1 applic 03/10/22 11:03 Mineral Oil/Petrolatum, White Ophth Oint 3.5 Gm OU Q4HR PRN Dry Eye(s) Ondansetron HCl 4 mg 03/10/22 02:56 Ondansetron 4 Mg/2 Ml Inj IV Q8H PRN Nausea And Vomiting Polyethylene Glycol 17 gm 03/12/22 10:00 03/16/22 12:23 Polyethylene Glycol 3350 17 Gm Powder FEEDTUBE 17 gm QDAY SHAHBAZ Administration Senna/Docusate Sodium 2 tab 03/14/22 10:00 03/16/22 22:41 Sennosides/Docusate Sodium 8.6/50 Mg Tab FEEDTUBE 2 tab Q12H SHAHBAZ Administration Sodium Chloride 10 ml 03/10/22 10:00 03/16/22 22:41 Sodium Chloride 0.9% 10 Ml Flush Syringe IV 10 ml BID SHAHBAZ Administration Sodium Chloride 10 ml 03/10/22 02:56 Sodium Chloride 0.9% 10 Ml Flush Syringe IV PRN PRN LINE FLUSH Nutrition/Malnutrition Assess - Dietary Evaluation Nutrition/Malnutrition Findings: Nutrition Notes Start: 03/10/22 12:22 Freq: Status: Active Protocol: Document 03/14/22 12:08 JOSH (Rec: 03/14/22 12:31 JOSH [id number]) Nutrition Notes Initial or Follow up Brief Note Current Diagnosis Sepsis,Hypertension, Respiratory Failure, Malnutrition Other Pertinent Diagnosis MS, CAP, Seizure, Metabolic Encephalopathy, Hyponatremia, Hypokalemia, ... Current Diet TF-Vital AF 1.2 En @ 60 ml/hr (since D 03/10). Height 5 ft 6 in Weight 83.2 kg [place] Body Weight (kg) 59.09 BMI 29.6 Weight change and time frame No body weight change reported in 4 days. Weight Status Overweight Subjective/Other Information RD consult for routine F/U on TF tolerance/continuation. TF continues as prescribed, and well tolerated, according to RN notes. Pt remains on Mechanical Ventilation, O2 saturation @ 97%, according to Physical Assessment History notes. Pt presents an unspecified area of concern for skin risk with redness and flakiness, according to Physical Assessment History notes. Percent of energy/protein needs met: Prescribed TF-Vital AF 1.2 En @ 60 ml/hr provides for energy/protein needs (1,728 Kcal/108 g) during LOS, 100% Kcal; 100% AA. #1 Nutrition Diagnosis Inadequate oral intake Diagnosis Progress(for reassessment Continues documentation) Is patient on ventilator? Yes Is Patient Ambulatory and/or Out of Bed No REE-([facility]-confined to bed) 1713.168 Calculation Used for Recommendations [facility] Additional Notes Protein: 1-1.2 g/Kg ABW; 100- 166 g/day. Fluids: 1 ml/Kcal, or as per MD. Nutrition Intervention Nutrition Support: Continue TF-Vital AF 1.2 Ne @ 60 ml/hr. Flush: 100 ml water Q 4 hr, or as per MD. Kcal 1,728 Protein (gm) 108 Carbohydrates (gm) 159 Fat (gm) 78 Fluid (mL) 1,168 Fiber (gm) 7 % RDI: 100% Kcal; 100% AA. Goal #1 Provide at least 75% of energy /protein needs through Enteral Feeding during LOS. Follow-Up By: 03/21/22 Additional Comments Continue monitoring TF tolerance, Ventilation Status, Pressor support, and BM.
[2022-03-17] MEDS: ENOXAPARIN 40 MG/0.4 ML INJ SUB-Q SCH (09:59)
[2022-03-17] MEDS: FAMOTIDINE 20 MG TAB FEEDTUBE SCH ×2 (10:00→22:15)
[2022-03-17] MEDS: levETIRAcetam 500 MG/5 ML ORAL LIQD FEEDTUBE SCH ×2 (10:00→22:15)
--- NOTE | 2022-03-17 10:02 | Progress Note ---
Assessment and Plan - Patient Problems (1) Respiratory failure Current Visit: Yes Status: Acute Plan to address problem: Patient has a history of multiple sclerosis, no reported cardiac history, presented to the hospital with respiratory insufficiency and currently on the vent in the ICU. Chest x-ray showed confluent consolidations in both lung fraire consistent with a severe bilateral pneumonia. A COVID-19 test was positive. Cardiac consultation was requested for the finding of a nonspecific, isolated rise in troponin levels. EKG show sinus rhythm with no acute ischemic changes. Echocardiogram done on this presentation shows left ventricular systolic ejection fraction at the lower limits of normal 50%. No acute cardiovascular issues at this time, will continue supportive management of cardiac status, defer treatment of respiratory failure and bilateral pneumonia to internal medicine and pulmonary. Subjective Date of service: 03/17/22 Principal diagnosis: AHRF; Multifocal Pneumonia; Septic shock; NSTEMI; AMS; Seizures Interval history: Patient is sedated, on the vent. On air sampling and monitoring, there is a stable sinus rhythm. No new cardiac events reported. Objective Vital Signs Temp Pulse Pulse Resp BP Pulse Ox 03/17/22 09:50 105 H 20 100/66 100 03/17/22 09:40 99.5 F 105 H 20 101/69 100 03/17/22 09:30 105 H 20 99/67 100 03/17/22 09:20 106 H 21 99/66 100 03/17/22 09:10 106 H 21 101/69 100 03/17/22 09:00 105 H 20 101/69 100 03/17/22 08:55 99.5 F 105 H 21 99/65 100 03/17/22 08:50 105 H 22 99/65 98 03/17/22 08:37 99.5 F 106 H 21 99/69 100 03/17/22 08:30 106 H 20 99/69 100 03/17/22 08:15 102 H 21 101/61 100 03/17/22 08:00 107 H 20 97/66 100 03/17/22 07:45 107 H 21 99/61 100 03/17/22 07:30 107 H 22 109/61 100 03/17/22 07:27 107 H 90/63 100 03/17/22 07:15 108 H 20 90/63 100 03/17/22 07:00 107 H 21 85/61 100 03/17/22 06:45 107 H 22 94/60 100 07/02/22 06:30 107 H 23 96/64 99 03/17/22 06:15 109 H 23 101/65 97 03/17/22 06:00 105 H 32 H 102/60 85 03/17/22 05:45 107 H 22 102/69 100 03/17/22 05:30 104 H 22 94/67 100 03/17/22 05:15 109 H 20 101/69 100 03/17/22 05:00 108 H 19 99/69 100 03/17/22 04:45 109 H 23 94/70 100 03/17/22 04:30 107 H 25 H 105/67 89 03/17/22 04:22 108 H 108/68 98 03/17/22 04:15 108 H 22 108/68 100 03/17/22 04:00 107 H 109 H 22 104/71 99 03/17/22 03:45 93 H 23 104/65 100 03/17/22 03:32 98.2 F 03/17/22 03:30 107 H 23 111/71 99 03/17/22 03:15 107 H 23 105/67 99 03/17/22 03:00 107 H 23 111/68 99 03/17/22 02:45 108 H 25 H 111/66 99 03/17/22 02:30 108 H 25 H 111/66 100 03/17/22 02:15 107 H 22 115/64 99 03/17/22 02:00 109 H 23 99/72 99 03/17/22 01:45 108 H 27 H 99/72 96 03/17/22 01:30 107 H 27 H 103/69 96 03/17/22 01:25 97 03/17/22 01:15 107 H 25 H 105/70 96 03/17/22 01:00 107 H 25 H 112/73 98 02 00:45 101 H 28 H 103/68 73 L 02 00:30 106 H 24 101/65 97 03/17/22 00:17 104 H 102/66 95 03/17/22 00:15 106 H 22 111/63 96 03/17/22 00:00 105 H 105 H 21 102/66 98 03/16/22 23:58 105 H 22 98/66 99 03/16/22 23:45 105 H 21 98/66 97 07/22 23:41 98.4 F 03/16/22 23:30 105 H 22 103/64 97 03/16/22 23:15 105 H 21 97/63 98 03/16/22 23:00 105 H 19 87/63 98 03/16/22 22:45 104 H 18 85/64 99 03/16/22 22:30 105 H 20 92/64 100 03/16/22 22:15 105 H 20 101/65 100 03/16/22 22:00 105 H 18 93/62 100 03/16/22 21:45 105 H 20 91/60 99 03/16/22 21:30 105 H 17 98/61 100 03/16/22 21:15 105 H 19 105/63 100 03/16/22 21:00 105 H 18 95/62 100 03/16/22 20:45 105 H 18 101/65 100 03/16/22 20:30 106 H 19 96/63 100 03/16/22 20:15 106 H 18 99/64 100 03/16/22 20:00 101.5 F H 105 H 17 97/63 100 03/16/22 19:45 106 H 23 90/63 97 03/16/22 19:30 107 H 21 95/61 100 03/16/22 19:15 107 H 21 95/62 99 03/16/22 19:00 107 H 22 100/63 98 03/16/22 18:45 101 H 17 94/65 98 03/16/22 18:30 107 H 20 92/60 99 03/16/22 18:15 107 H 20 107/63 100 03/16/22 18:00 108 H 21 98/64 99 03/16/22 17:45 107 H 21 92/62 99 03/16/22 17:30 109 H 23 100/67 99 03/16/22 17:15 109 H 19 96/65 100 03/16/22 17:00 109 H 21 86/62 100 03/16/22 16:45 109 H 22 81/66 99 03/16/22 16:30 110 H 22 90/67 99 03/16/22 16:20 109 H 90/67 97 03/16/22 16:15 110 H 22 93/63 97 03/16/22 16:00 109 H 24 92/64 100 03/16/22 15:45 110 H 22 93/68 97 03/16/22 15:30 109 H 23 101/67 95 03/16/22 15:15 109 H 24 95/62 96 03/16/22 15:00 111 H 24 100/64 96 03/16/22 14:45 112 H 23 96/68 97 03/16/22 14:30 112 H 24 101/63 99 03/16/22 14:15 113 H 26 H 94/66 98 03/16/22 14:00 111 H 25 H 108/62 97 03/16/22 13:45 108 H 28 H 99/66 91 03/16/22 13:30 111 H 26 H 96/64 89 03/16/22 13:15 111 H 24 97/64 93 03/16/22 13:00 110 H 24 101/64 92 03/16/22 12:45 109 H 24 99/67 95 03/16/22 12:30 110 H 22 89/64 98 03/16/22 12:15 110 H 23 97/62 96 03/16/22 12:00 110 H 21 95/61 96 03/16/22 11:45 109 H 24 97/60 92 03/16/22 11:30 109 H 23 91/64 96 03/16/22 11:15 109 H 23 93/65 99 03/16/22 11:00 108 H 23 91/61 97 03/16/22 10:45 109 H 24 91/61 96 03/16/22 10:30 109 H 23 95/64 97 03/16/22 10:15 109 H 25 H 107/65 96 - Physical Examination General: Other (intubated on mechanical ventilator) HEENT: Positive: PERRL Neck: Positive: neck supple, trachea midline. Negative: JVD/HJR Cardiac: Positive: Reg Rate and Rhythm Lungs: Positive: Decreased Breath Sounds Neuro: Positive: Other (Intubated, sedated on the vent) Abdomen: Positive: Soft Skin: Positive: Clear, Other (multiple wounds) Extremities: Absent: edema - Labs and Meds CBC 03/17/22 Range/Units 04:00 WBC 19.1 H (4.5-11.0) K/mm3 RBC 2.44 L (3.65-5.03) M/mm3 Hgb 6.6 L (10.1-14.3) gm/dl Hct 20.6 L (30.3-42.9) % Plt Count 270 (140-440) K/mm3 Comprehensive Metabolic Panel 03/17/22 Range/Units 04:00 Sodium 134 L (137-145) mmol/L Potassium 4.8 (3.6-5.0) mmol/L Chloride 100.7 (98-107) mmol/L Carbon Dioxide 24 (22-30) mmol/L BUN 55 H (7-17) mg/dL Creatinine 0.7 (0.6-1.2) mg/dL Glucose 125 H (65-100) mg/dL Calcium 8.1 L (8.4-10.2) mg/dL - Allied health notes Allied health notes reviewed: nursing
[2022-03-17] MEDS: SENNOSIDES/DOCUSATE SODIUM 8.6/50 MG TAB FEEDTUBE SCH ×2 (10:34→22:15)
[2022-03-17] MEDS: POLYETHYLENE GLYCOL 3350 17 GM POWDER FEEDTUBE SCH (10:34)
--- NOTE | 2022-03-17 12:58 | Progress Note ---
Assessment and Plan Acute Hypoxemic Respiratory Failure on MVS Multifocal Pneumonia/CAP Severe Hyponatremia Septic shock Lactic Acidosis NSTEMI/Elevated Troponin Elevated BNP Hypokalemia R/o COVID Acute Metabolic Encephalopathy H/o Seizure Disorder Elevated D-Dimer Moderate Protein Calorie Malnutrition - 1 unit PRBC's given - FiO2 reduced to 80% - repeat ABG in am - keep peep at 14 (PIP's 25 cm H2O) - ARDS net ventilatory strategies - get CVP's & trend - get lactic acid level and address - holding diuretics re: Azotemia (continue to follow electrolytes & creatinine levels) - continue Meropenem; de-escalate per ID recommendations - continue care as below otherwise; - titrate vasopressor support to keep MAP>65 - Daily SAT and SBT assessment as tolerated - continue to wean supplemental oxygen for target O2 sat's > 90% acutely - VAP bundle addressed - continue lung protective strategies - continue bronchodilators with pulmonary hygiene per RT - wean per pulmonary driven protocols otherwise - continue accuchecks with glycemic control per SSI (While critically ill target blood glucose of 140-180 mg/dL; avoid hypoglycemia) - sedation prn for target RASS 0 to -1 - avoid nephrotoxins, renally dose all medications - continue to avoid benzodiazepine's, reduce the possibility of delirium - complete AB's per ID rec's - prn analgesia per CPOT score - Maintenance of sleep-wake cycle, avoid delirium - continue enteral nutritional support at goal rate as tolerated - G.I. & VTE prophylaxis - PT/OT/ROM exercises - continue mobility protocols for pressure ulcer prophylaxis - Monitor hemodynamics closely - continue other care per attending / other consultants - discharge planning ongoing concurrently COVID SPECIFIC INTERVENTIONS - COVID-19 PCR negative .... Re-evaluate in am & prn CONDITION: CRITICAL PROGNOSIS: GUARDED CODE STATUS: FULL CODE The high probability of a clinically significant, sudden or life-threatening deterioration of the [respiratory, cardiovascular & neurologic] system(s) required my full and direct attention, intervention and personal management. The aggregate critical care time was [33] minutes without overlap. Time includes spent on; [x] Data Review and interpretation [x] Patient assessment and monitoring of vital signs [x] Documentation [x] Medication orders and management Subjective Date of service: 03/17/22 Principal diagnosis: AHRF; Multifocal Pneumonia; Septic shock; NSTEMI; AMS; Seizures Interval history: Patient is seen today for: Acute Hypoxemic Respiratory Failure; Multifocal Pneumonia/CAP; Hyponatremia; Septic shock; NSTEMI; AMS; Seizure Disorder; Moderate Protein Calorie Malnutrition Seen and examined at bedside; 24hour events reviewed; nursing and respiratory care staff consulted; no adverse overnight events reported to me; resting peacefully in bed; FiO2 back up to 90%; serum Hb 6.6 today; no gross bleeding; sedated; remains on Levophed but down to 4 mics/min Objective Vital Signs - 12hr 03/17/22 03/17/22 03/17/22 01:00 01:15 01:25 Temperature Pulse Rate 107 H 107 H Pulse Rate [ Right Radial] Respiratory 25 H 25 H Rate Respiratory Rate [no pain] Blood Pressure 112/73 105/70 O2 Sat by Pulse 98 96 97 Oximetry 03/17/22 03/17/22 03/17/22 01:30 01:45 02:00 Temperature Pulse Rate 107 H 108 H 109 H Pulse Rate [ Right Radial] Respiratory 27 H 27 H 23 Rate Respiratory Rate [no pain] Blood Pressure 103/69 99/72 99/72 O2 Sat by Pulse 96 96 99 Oximetry 03/17/22 03/17/22 03/17/22 02:15 02:30 02:45 Temperature Pulse Rate 107 H 108 H 108 H Pulse Rate [ Right Radial] Respiratory 22 25 H 25 H Rate Respiratory Rate [no pain] Blood Pressure 115/64 111/66 111/66 O2 Sat by Pulse 99 100 99 Oximetry 03/17/22 03/17/22 03/17/22 03:00 03:15 03:30 Temperature Pulse Rate 107 H 107 H 107 H Pulse Rate [ Right Radial] Respiratory 23 23 23 Rate Respiratory Rate [no pain] Blood Pressure 111/68 105/67 111/71 O2 Sat by Pulse 99 99 99 Oximetry 03/17/22 03/17/22 03/17/22 03:32 03:45 04:00 Temperature 98.2 F Pulse Rate 93 H 107 H Pulse Rate [ 109 H Right Radial] Respiratory 23 22 Rate Respiratory Rate [no pain] Blood Pressure 104/65 104/71 O2 Sat by Pulse 100 99 Oximetry 03/17/22 03/17/22 03/17/22 04:15 04:22 04:30 Temperature Pulse Rate 108 H 108 H 107 H Pulse Rate [ Right Radial] Respiratory 22 25 H Rate Respiratory Rate [no pain] Blood Pressure 108/68 108/68 105/67 O2 Sat by Pulse 100 98 89 Oximetry 03/17/22 03/17/22 03/17/22 04:45 05:00 05:15 Temperature Pulse Rate 109 H 108 H 109 H Pulse Rate [ Right Radial] Respiratory 23 19 20 Rate Respiratory Rate [no pain] Blood Pressure 94/70 99/69 101/69 O2 Sat by Pulse 100 100 100 Oximetry 03/17/22 03/17/22 03/17/22 05:30 05:45 06:00 Temperature Pulse Rate 104 H 107 H 105 H Pulse Rate [ Right Radial] Respiratory 22 22 32 H Rate Respiratory Rate [no pain] Blood Pressure 94/67 102/69 102/60 O2 Sat by Pulse 100 100 85 Oximetry 03/17/22 03/17/22 03/17/22 06:15 06:30 06:45 Temperature Pulse Rate 109 H 107 H 107 H Pulse Rate [ Right Radial] Respiratory 23 23 22 Rate Respiratory Rate [no pain] Blood Pressure 101/65 96/64 94/60 O2 Sat by Pulse 97 99 100 Oximetry 03/17/22 03/17/22 03/17/22 07:00 07:15 07:27 Temperature Pulse Rate 107 H 108 H 107 H Pulse Rate [ Right Radial] Respiratory 21 20 Rate Respiratory Rate [no pain] Blood Pressure 85/61 90/63 90/63 O2 Sat by Pulse 100 100 100 Oximetry 03/17/22 03/17/22 03/17/22 07:30 07:45 08:00 Temperature Pulse Rate 107 H 107 H 110 H Pulse Rate [ 110 H Right Radial] Respiratory 22 21 21 Rate Respiratory Rate [no pain] Blood Pressure 109/61 99/61 97/66 O2 Sat by Pulse 100 100 100 Oximetry 03/17/22 03/17/22 03/17/22 08:15 08:30 08:37 Temperature 99.5 F Pulse Rate 102 H 106 H 106 H Pulse Rate [ Right Radial] Respiratory 21 20 21 Rate Respiratory Rate [no pain] Blood Pressure 101/61 99/69 99/69 O2 Sat by Pulse 100 100 100 Oximetry 03/17/22 03/17/22 03/17/22 08:50 08:55 09:00 Temperature 99.5 F Pulse Rate 105 H 105 H 105 H Pulse Rate [ Right Radial] Respiratory 22 21 20 Rate Respiratory Rate [no pain] Blood Pressure 99/65 99/65 101/69 O2 Sat by Pulse 98 100 100 Oximetry 03/17/22 03/17/22 03/17/22 09:10 09:20 09:30 Temperature Pulse Rate 106 H 106 H 105 H Pulse Rate [ Right Radial] Respiratory 21 21 20 Rate Respiratory Rate [no pain] Blood Pressure 101/69 99/66 99/67 O2 Sat by Pulse 100 100 100 Oximetry 03/17/22 03/17/22 03/17/22 09:40 09:50 10:00 Temperature 99.5 F Pulse Rate 105 H 105 H 105 H Pulse Rate [ Right Radial] Respiratory 20 20 19 Rate Respiratory 21 Rate [no pain] Blood Pressure 101/69 100/66 92/62 O2 Sat by Pulse 100 100 100 Oximetry 03/17/22 03/17/22 03/17/22 10:10 10:20 10:25 Temperature 98.7 F Pulse Rate 104 H 105 H Pulse Rate [ Right Radial] Respiratory 20 19 Rate Respiratory Rate [no pain] Blood Pressure 99/67 105/65 O2 Sat by Pulse 98 100 Oximetry 03/17/22 03/17/22 03/17/22 10:30 10:40 10:50 Temperature Pulse Rate 104 H 105 H 106 H Pulse Rate [ Right Radial] Respiratory 19 18 20 Rate Respiratory Rate [no pain] Blood Pressure 105/65 103/64 O2 Sat by Pulse 97 100 100 Oximetry 03/17/22 03/17/22 03/17/22 11:00 11:10 11:21 Temperature 98.7 F Pulse Rate 105 H 105 H Pulse Rate [ Right Radial] Respiratory 22 19 Rate Respiratory Rate [no pain] Blood Pressure 107/69 107/69 O2 Sat by Pulse 97 100 Oximetry 03/17/22 03/17/22 03/17/22 11:30 11:45 12:00 Temperature Pulse Rate 106 H 104 H 106 H Pulse Rate [ 110 H Right Radial] Respiratory 19 18 19 Rate Respiratory Rate [no pain] Blood Pressure 100/67 100/68 106/65 O2 Sat by Pulse 100 100 100 Oximetry 03/17/22 03/17/22 03/17/22 12:15 12:23 12:30 Temperature Pulse Rate 103 H 104 H 104 H Pulse Rate [ Right Radial] Respiratory 21 19 Rate Respiratory Rate [no pain] Blood Pressure 102/69 102/69 98/61 O2 Sat by Pulse 99 100 99 Oximetry Constitutional: no acute distress, other (middle aged female with mildly increased respiratory effort at rest on MVS) Eyes: non-icteric ENT: oropharynx moist, other (ETT 24 cm BLANCA) Effort: mildly labored Ascultation: Bilateral: rales Percussion: Bilateral: not dull Cardiovascular: regular rate and rhythm Gastrointestinal: normoactive bowel sounds, soft, non-tender, non-distended Integumentary: normal Extremities: no cyanosis, no edema, pulses normal, no ischemia or petechiae Neurologic: pupils equal and round, unable to assess, other (weak) Psychiatric: other (unable to assess re: AMS) CBC and BMP: 03/17/22 04:00 03/17/22 04:00 ABG, PT/INR, D-dimer: ABG ABG pH 7.334 pH Units (7.350-7.450) L 03/17/22 05:00 ABG pCO2 44.3 mm Hg 03/17/22 05:00 ABG pO2 132.4 mm Hg (80.0-90.0) H 03/17/22 05:00 ABG O2 Saturation 99.0 % (95.0-99.0) 03/17/22 05:00 PT/INR, D-dimer PT 14.9 Sec. (12.2-14.9) 03/10/22 01:25 INR 1.03 (0.87-1.13) 03/10/22 01:25 D-Dimer 787.78 ng/mlDDU (0-234) H 03/10/22 05:45 Abnormal lab findings: Abnormal Labs 03/10/22 03/10/22 03/10/22 01:19 01:25 01:25 WBC RBC Hgb Hct MCH RDW 15.4 H Lymph % (Auto) 12.4 L Lymph # (Auto) 1.1 L Seg Neutrophils % 85.9 H Seg Neuts % (Manual) Lymphocytes % (Manual) Seg Neutrophils # Seg Neutrophils # Man Lymphocytes # (Manual) Monocytes # (Manual) Eosinophils # (Manual) D-Dimer ABG pH ABG pO2 59.3 L ABG HCO3 16.7 L ABG O2 Saturation 92.3 L ABG Base Excess -7.8 L ABG Hemoglobin 11.4 L Oxyhemoglobin 90.8 L Sodium 119 L* Potassium 3.1 L Chloride 88.1 L Carbon Dioxide 16 L BUN Creatinine 0.3 L Glucose 146 H POC Glucose Lactic Acid Uric Acid Calcium 8.2 L Phosphorus Magnesium 1.30 L Ferritin ALT 5 L Lactate Dehydrogenase Total Creatine Kinase CK-MB (CK-2) Troponin T NT-Pro-B Natriuret Pep Total Protein 5.4 L Albumin 3.6 L Prealbumin Cholesterol LDL Cholesterol Direct HDL Cholesterol Vitamin B12 Folate Urine WBC (Auto) Crossmatch 03/10/22 03/10/22 03/10/22 01:25 01:25 01:25 WBC RBC Hgb Hct MCH RDW Lymph % (Auto) Lymph # (Auto) Seg Neutrophils % Seg Neuts % (Manual) Lymphocytes % (Manual) Seg Neutrophils # Seg Neutrophils # Man Lymphocytes # (Manual) Monocytes # (Manual) Eosinophils # (Manual) D-Dimer ABG pH ABG pO2 ABG HCO3 ABG O2 Saturation ABG Base Excess ABG Hemoglobin Oxyhemoglobin Sodium Potassium Chloride Carbon Dioxide BUN Creatinine Glucose POC Glucose Lactic Acid 3.60 H* Uric Acid Calcium Phosphorus Magnesium Ferritin ALT Lactate Dehydrogenase Total Creatine Kinase CK-MB (CK-2) 4.6 H Troponin T 0.164 H* NT-Pro-B Natriuret Pep 25146 H Total Protein Albumin Prealbumin Cholesterol 259 H LDL Cholesterol Direct 187 H HDL Cholesterol 63 H Vitamin B12 Folate Urine WBC (Auto) Crossmatch 03/10/22 03/10/22 03/10/22 02:43 05:45 05:45 WBC RBC Hgb Hct MCH RDW Lymph % (Auto) Lymph # (Auto) Seg Neutrophils % Seg Neuts % (Manual) Lymphocytes % (Manual) Seg Neutrophils # Seg Neutrophils # Man Lymphocytes # (Manual) Monocytes # (Manual) Eosinophils # (Manual) D-Dimer 787.78 H ABG pH ABG pO2 ABG HCO3 ABG O2 Saturation ABG Base Excess ABG Hemoglobin Oxyhemoglobin Sodium Potassium Chloride Carbon Dioxide BUN Creatinine Glucose POC Glucose Lactic Acid 3.70 H* 3.10 H* Uric Acid Calcium Phosphorus Magnesium Ferritin ALT Lactate Dehydrogenase Total Creatine Kinase CK-MB (CK-2) Troponin T NT-Pro-B Natriuret Pep Total Protein Albumin Prealbumin Cholesterol LDL Cholesterol Direct HDL Cholesterol Vitamin B12 Folate Urine WBC (Auto) Crossmatch 03/10/22 03/10/22 03/10/22 05:45 05:45 12:24 WBC RBC Hgb Hct MCH RDW Lymph % (Auto) Lymph # (Auto) Seg Neutrophils % Seg Neuts % (Manual) Lymphocytes % (Manual) Seg Neutrophils # Seg Neutrophils # Man Lymphocytes # (Manual) Monocytes # (Manual) Eosinophils # (Manual) D-Dimer ABG pH ABG pO2 ABG HCO3 ABG O2 Saturation ABG Base Excess ABG Hemoglobin Oxyhemoglobin Sodium 124 L Potassium 3.3 L Chloride Carbon Dioxide 11 L BUN Creatinine 0.2 L Glucose POC Glucose Lactic Acid Uric Acid Calcium 6.9 L D Phosphorus Magnesium Ferritin 219.2 H ALT Lactate Dehydrogenase 210 H Total Creatine Kinase CK-MB (CK-2) Troponin T NT-Pro-B Natriuret Pep Total Protein Albumin Prealbumin Cholesterol LDL Cholesterol Direct HDL Cholesterol Vitamin B12 Folate Urine WBC (Auto) Crossmatch 03/10/22 03/10/22 03/10/22 12:24 12:24 12:24 WBC RBC Hgb Hct MCH RDW Lymph % (Auto) Lymph # (Auto) Seg Neutrophils % Seg Neuts % (Manual) Lymphocytes % (Manual) Seg Neutrophils # Seg Neutrophils # Man Lymphocytes # (Manual) Monocytes # (Manual) Eosinophils # (Manual) D-Dimer ABG pH ABG pO2 ABG HCO3 ABG O2 Saturation ABG Base Excess ABG Hemoglobin Oxyhemoglobin Sodium 128 L Potassium Chloride Carbon Dioxide BUN Creatinine Glucose POC Glucose Lactic Acid 2.70 H* Uric Acid Calcium Phosphorus Magnesium Ferritin ALT Lactate Dehydrogenase Total Creatine Kinase 901 H CK-MB (CK-2) 15.3 H Troponin T 0.032 H D NT-Pro-B Natriuret Pep Total Protein Albumin Prealbumin Cholesterol LDL Cholesterol Direct HDL Cholesterol Vitamin B12 Folate Urine WBC (Auto) Crossmatch 03/10/22 03/10/22 03/10/22 12:45 13:15 18:00 WBC RBC Hgb Hct MCH RDW Lymph % (Auto) Lymph # (Auto) Seg Neutrophils % Seg Neuts % (Manual) Lymphocytes % (Manual) Seg Neutrophils # Seg Neutrophils # Man Lymphocytes # (Manual) Monocytes # (Manual) Eosinophils # (Manual) D-Dimer ABG pH 7.315 L ABG pO2 70.1 L ABG HCO3 15.6 L ABG O2 Saturation 93.8 L ABG Base Excess -9.5 L ABG Hemoglobin 11.0 L Oxyhemoglobin 92.4 L Sodium 129 L Potassium Chloride Carbon Dioxide 17 L BUN Creatinine 0.2 L Glucose POC Glucose Lactic Acid Uric Acid 1.6 L Calcium 7.0 L Phosphorus Magnesium Ferritin ALT Lactate Dehydrogenase Total Creatine Kinase CK-MB (CK-2) Troponin T NT-Pro-B Natriuret Pep Total Protein Albumin Prealbumin Cholesterol LDL Cholesterol Direct HDL Cholesterol Vitamin B12 Folate Urine WBC (Auto) Crossmatch 03/10/22 03/10/22 03/11/22 18:20 21:05 05:00 WBC 13.7 H RBC 3.44 L Hgb 9.6 L Hct 29.0 L D MCH RDW Lymph % (Auto) 8.9 L Lymph # (Auto) Seg Neutrophils % 86.6 H Seg Neuts % (Manual) Lymphocytes % (Manual) Seg Neutrophils # 11.8 H Seg Neutrophils # Man Lymphocytes # (Manual) Monocytes # (Manual) Eosinophils # (Manual) D-Dimer ABG pH ABG pO2 116.3 H ABG HCO3 17.2 L ABG O2 Saturation ABG Base Excess -6.4 L ABG Hemoglobin 11.0 L Oxyhemoglobin Sodium Potassium Chloride Carbon Dioxide BUN Creatinine Glucose POC Glucose Lactic Acid Uric Acid Calcium Phosphorus Magnesium Ferritin ALT Lactate Dehydrogenase Total Creatine Kinase CK-MB (CK-2) Troponin T NT-Pro-B Natriuret Pep Total Protein Albumin Prealbumin Cholesterol LDL Cholesterol Direct HDL Cholesterol Vitamin B12 Folate Urine WBC (Auto) 105.0 H Crossmatch 03/11/22 03/11/22 03/12/22 05:00 Unknown 04:10 WBC RBC Hgb Hct MCH RDW Lymph % (Auto) Lymph # (Auto) Seg Neutrophils % Seg Neuts % (Manual) Lymphocytes % (Manual) Seg Neutrophils # Seg Neutrophils # Man Lymphocytes # (Manual) Monocytes # (Manual) Eosinophils # (Manual) D-Dimer ABG pH 7.472 H 7.482 H ABG pO2 65.5 L ABG HCO3 19.8 L ABG O2 Saturation ABG Base Excess -2.9 L ABG Hemoglobin 10.1 L 8.4 L Oxyhemoglobin Sodium 132 L Potassium Chloride Carbon Dioxide 20 L BUN 6 L Creatinine 0.2 L Glucose POC Glucose Lactic Acid Uric Acid Calcium 7.5 L Phosphorus Magnesium Ferritin ALT Lactate Dehydrogenase Total Creatine Kinase CK-MB (CK-2) Troponin T NT-Pro-B Natriuret Pep Total Protein Albumin Prealbumin Cholesterol LDL Cholesterol Direct HDL Cholesterol Vitamin B12 Folate Urine WBC (Auto) Crossmatch 03/12/22 03/12/22 03/12/22 04:20 04:20 12:25 WBC 13.6 H RBC 3.11 L Hgb 8.7 L Hct 26.1 L MCH RDW Lymph % (Auto) Lymph # (Auto) Seg Neutrophils % Seg Neuts % (Manual) Lymphocytes % (Manual) Seg Neutrophils # Seg Neutrophils # Man Lymphocytes # (Manual) Monocytes # (Manual) Eosinophils # (Manual) D-Dimer ABG pH ABG pO2 ABG HCO3 ABG O2 Saturation ABG Base Excess ABG Hemoglobin Oxyhemoglobin Sodium 128 L Potassium 3.2 L Chloride 93.9 L Carbon Dioxide BUN 4 L Creatinine 0.2 L Glucose 103 H POC Glucose 116 H Lactic Acid Uric Acid Calcium 7.4 L Phosphorus 1.10 L Magnesium 2.40 H Ferritin ALT Lactate Dehydrogenase Total Creatine Kinase CK-MB (CK-2) Troponin T NT-Pro-B Natriuret Pep Total Protein Albumin Prealbumin Cholesterol LDL Cholesterol Direct HDL Cholesterol Vitamin B12 Folate Urine WBC (Auto) Crossmatch 03/12/22 03/12/22 03/12/22 18:40 18:40 18:40 WBC RBC Hgb Hct MCH RDW Lymph % (Auto) Lymph # (Auto) Seg Neutrophils % Seg Neuts % (Manual) Lymphocytes % (Manual) Seg Neutrophils # Seg Neutrophils # Man Lymphocytes # (Manual) Monocytes # (Manual) Eosinophils # (Manual) D-Dimer ABG pH ABG pO2 ABG HCO3 ABG O2 Saturation ABG Base Excess ABG Hemoglobin Oxyhemoglobin Sodium Potassium Chloride Carbon Dioxide BUN Creatinine Glucose POC Glucose Lactic Acid Uric Acid Calcium Phosphorus Magnesium Ferritin ALT Lactate Dehydrogenase Total Creatine Kinase CK-MB (CK-2) Troponin T NT-Pro-B Natriuret Pep Total Protein Albumin Prealbumin 0.044 L Cholesterol LDL Cholesterol Direct HDL Cholesterol Vitamin B12 1021 H Folate 2.15 L Urine WBC (Auto) Crossmatch 03/13/22 03/13/22 03/13/22 04:10 08:00 09:50 WBC 15.0 H RBC 2.82 L Hgb 8.0 L Hct 23.9 L MCH RDW 15.5 H Lymph % (Auto) Lymph # (Auto) Seg Neutrophils % Seg Neuts % (Manual) Lymphocytes % (Manual) Seg Neutrophils # Seg Neutrophils # Man Lymphocytes # (Manual) Monocytes # (Manual) Eosinophils # (Manual) D-Dimer ABG pH ABG pO2 98.6 H ABG HCO3 ABG O2 Saturation ABG Base Excess ABG Hemoglobin 8.3 L Oxyhemoglobin Sodium 130 L Potassium Chloride 96.1 L Carbon Dioxide BUN Creatinine 0.4 L D Glucose 148 H POC Glucose Lactic Acid Uric Acid Calcium 7.3 L Phosphorus Magnesium Ferritin ALT Lactate Dehydrogenase Total Creatine Kinase CK-MB (CK-2) Troponin T NT-Pro-B Natriuret Pep Total Protein Albumin Prealbumin Cholesterol LDL Cholesterol Direct HDL Cholesterol Vitamin B12 Folate Urine WBC (Auto) Crossmatch 03/13/22 03/13/22 03/14/22 20:15 22:59 04:54 WBC 17.0 H RBC 2.79 L Hgb 7.8 L Hct 23.6 L MCH RDW 15.6 H Lymph % (Auto) Lymph # (Auto) Seg Neutrophils % Seg Neuts % (Manual) Lymphocytes % (Manual) Seg Neutrophils # Seg Neutrophils # Man Lymphocytes # (Manual) Monocytes # (Manual) Eosinophils # (Manual) D-Dimer ABG pH ABG pO2 ABG HCO3 ABG O2 Saturation ABG Base Excess -2.9 L ABG Hemoglobin 8.0 L Oxyhemoglobin Sodium Potassium Chloride Carbon Dioxide BUN Creatinine Glucose POC Glucose 127 H Lactic Acid Uric Acid Calcium Phosphorus Magnesium Ferritin ALT Lactate Dehydrogenase Total Creatine Kinase CK-MB (CK-2) Troponin T NT-Pro-B Natriuret Pep Total Protein Albumin Prealbumin Cholesterol LDL Cholesterol Direct HDL Cholesterol Vitamin B12 Folate Urine WBC (Auto) Crossmatch 03/14/22 03/14/22 03/14/22 04:54 16:15 22:59 WBC RBC Hgb Hct MCH RDW Lymph % (Auto) Lymph # (Auto) Seg Neutrophils % Seg Neuts % (Manual) Lymphocytes % (Manual) Seg Neutrophils # Seg Neutrophils # Man Lymphocytes # (Manual) Monocytes # (Manual) Eosinophils # (Manual) D-Dimer ABG pH ABG pO2 ABG HCO3 ABG O2 Saturation ABG Base Excess ABG Hemoglobin Oxyhemoglobin Sodium 129 L 128 L Potassium 3.5 L Chloride 97.1 L 97.0 L Carbon Dioxide BUN 24 H 31 H Creatinine 0.5 L Glucose 125 H 114 H POC Glucose 134 H Lactic Acid Uric Acid Calcium 7.0 L 7.0 L Phosphorus Magnesium Ferritin ALT Lactate Dehydrogenase Total Creatine Kinase CK-MB (CK-2) Troponin T NT-Pro-B Natriuret Pep Total Protein Albumin Prealbumin Cholesterol LDL Cholesterol Direct HDL Cholesterol Vitamin B12 Folate Urine WBC (Auto) Crossmatch 03/15/22 03/15/22 03/15/22 04:10 04:10 05:02 WBC 12.9 H RBC 2.55 L Hgb 7.1 L Hct 21.5 L MCH RDW 15.8 H Lymph % (Auto) Lymph # (Auto) Seg Neutrophils % Seg Neuts % (Manual) 88.0 H Lymphocytes % (Manual) 5.0 L Seg Neutrophils # Seg Neutrophils # Man 11.4 H Lymphocytes # (Manual) 0.6 L Monocytes # (Manual) Eosinophils # (Manual) 0.5 H D-Dimer ABG pH ABG pO2 ABG HCO3 ABG O2 Saturation ABG Base Excess ABG Hemoglobin Oxyhemoglobin Sodium 127 L Potassium Chloride 96.3 L Carbon Dioxide 21 L BUN 33 H Creatinine Glucose 126 H POC Glucose 116 H Lactic Acid Uric Acid Calcium 7.4 L Phosphorus 1.20 L Magnesium Ferritin ALT Lactate Dehydrogenase Total Creatine Kinase CK-MB (CK-2) Troponin T NT-Pro-B Natriuret Pep Total Protein 5.3 L Albumin 2.1 L Prealbumin Cholesterol LDL Cholesterol Direct HDL Cholesterol Vitamin B12 Folate Urine WBC (Auto) Crossmatch 03/15/22 03/15/22 03/15/22 05:55 09:42 11:34 WBC RBC Hgb Hct MCH RDW Lymph % (Auto) Lymph # (Auto) Seg Neutrophils % Seg Neuts % (Manual) Lymphocytes % (Manual) Seg Neutrophils # Seg Neutrophils # Man Lymphocytes # (Manual) Monocytes # (Manual) Eosinophils # (Manual) D-Dimer ABG pH ABG pO2 119.0 H ABG HCO3 ABG O2 Saturation ABG Base Excess -3.1 L ABG Hemoglobin 8.2 L Oxyhemoglobin Sodium Potassium Chloride Carbon Dioxide BUN Creatinine Glucose POC Glucose 125 H Lactic Acid Uric Acid Calcium Phosphorus Magnesium Ferritin ALT Lactate Dehydrogenase Total Creatine Kinase CK-MB (CK-2) Troponin T NT-Pro-B Natriuret Pep Total Protein Albumin Prealbumin Cholesterol LDL Cholesterol Direct HDL Cholesterol Vitamin B12 Folate Urine WBC (Auto) Crossmatch See Detail 03/15/22 03/16/22 03/16/22 20:55 04:50 04:50 WBC 16.9 H RBC 2.53 L Hgb 7.1 L Hct 21.5 L MCH RDW 16.0 H Lymph % (Auto) Lymph # (Auto) Seg Neutrophils % Seg Neuts % (Manual) Lymphocytes % (Manual) Seg Neutrophils # Seg Neutrophils # Man Lymphocytes # (Manual) Monocytes # (Manual) Eosinophils # (Manual) D-Dimer ABG pH 7.320 L ABG pO2 122.8 H ABG HCO3 ABG O2 Saturation ABG Base Excess -4.1 L ABG Hemoglobin 7.0 L Oxyhemoglobin Sodium 132 L Potassium Chloride Carbon Dioxide 20 L BUN 44 H Creatinine Glucose 123 H POC Glucose Lactic Acid Uric Acid Calcium 7.6 L Phosphorus Magnesium Ferritin ALT Lactate Dehydrogenase Total Creatine Kinase CK-MB (CK-2) Troponin T NT-Pro-B Natriuret Pep Total Protein Albumin Prealbumin Cholesterol LDL Cholesterol Direct HDL Cholesterol Vitamin B12 Folate Urine WBC (Auto) Crossmatch 03/16/22 03/16/22 03/16/22 05:42 11:32 23:05 WBC RBC Hgb Hct MCH RDW Lymph % (Auto) Lymph # (Auto) Seg Neutrophils % Seg Neuts % (Manual) Lymphocytes % (Manual) Seg Neutrophils # Seg Neutrophils # Man Lymphocytes # (Manual) Monocytes # (Manual) Eosinophils # (Manual) D-Dimer ABG pH ABG pO2 ABG HCO3 ABG O2 Saturation ABG Base Excess ABG Hemoglobin Oxyhemoglobin Sodium Potassium Chloride Carbon Dioxide BUN Creatinine Glucose POC Glucose 113 H 118 H 114 H Lactic Acid Uric Acid Calcium Phosphorus Magnesium Ferritin ALT Lactate Dehydrogenase Total Creatine Kinase CK-MB (CK-2) Troponin T NT-Pro-B Natriuret Pep Total Protein Albumin Prealbumin Cholesterol LDL Cholesterol Direct HDL Cholesterol Vitamin B12 Folate Urine WBC (Auto) Crossmatch 03/17/22 03/17/22 03/17/22 04:00 04:00 05:00 WBC 19.1 H RBC 2.44 L Hgb 6.6 L Hct 20.6 L MCH 27 L RDW 16.4 H Lymph % (Auto) Lymph # (Auto) Seg Neutrophils % Seg Neuts % (Manual) 78.0 H Lymphocytes % (Manual) 2.0 L Seg Neutrophils # Seg Neutrophils # Man 14.9 H Lymphocytes # (Manual) 0.4 L Monocytes # (Manual) 1.3 H Eosinophils # (Manual) 0.6 H D-Dimer ABG pH 7.334 L ABG pO2 132.4 H ABG HCO3 ABG O2 Saturation ABG Base Excess -2.7 L ABG Hemoglobin 9.1 L Oxyhemoglobin Sodium 134 L Potassium Chloride Carbon Dioxide BUN 55 H Creatinine Glucose 125 H POC Glucose Lactic Acid Uric Acid Calcium 8.1 L Phosphorus Magnesium Ferritin ALT Lactate Dehydrogenase Total Creatine Kinase CK-MB (CK-2) Troponin T NT-Pro-B Natriuret Pep Total Protein Albumin Prealbumin Cholesterol LDL Cholesterol Direct HDL Cholesterol Vitamin B12 Folate Urine WBC (Auto) Crossmatch 03/17/22 05:40 WBC RBC Hgb Hct MCH RDW Lymph % (Auto) Lymph # (Auto) Seg Neutrophils % Seg Neuts % (Manual) Lymphocytes % (Manual) Seg Neutrophils # Seg Neutrophils # Man Lymphocytes # (Manual) Monocytes # (Manual) Eosinophils # (Manual) D-Dimer ABG pH ABG pO2 ABG HCO3 ABG O2 Saturation ABG Base Excess ABG Hemoglobin Oxyhemoglobin Sodium Potassium Chloride Carbon Dioxide BUN Creatinine Glucose POC Glucose 115 H Lactic Acid Uric Acid Calcium Phosphorus Magnesium Ferritin ALT Lactate Dehydrogenase Total Creatine Kinase CK-MB (CK-2) Troponin T NT-Pro-B Natriuret Pep Total Protein Albumin Prealbumin Cholesterol LDL Cholesterol Direct HDL Cholesterol Vitamin B12 Folate Urine WBC (Auto) Crossmatch Chest x-ray: image reviewed (persistent infiltrates) Allied health notes reviewed: nursing
--- NOTE | 2022-03-17 13:11 | Progress Note ---
Assessment and Plan Prerenal Azotemia - Hold further Diuretics as pt getting prerenal Electrolyte Imbalance - F/u resolving HypoNa. Still hold all IVF Hypotension - Titrate vasopressor as tolerated for better SBP Anemia - Transfuse PRBC, f/u H/H Pneumonia/Resp Failure - Vent Mx per Pulm Multiple Sclerosis - F/u Mx per Neuro Subjective Date of service: 03/17/22 Principal diagnosis: AHRF; Multifocal Pneumonia; Septic shock; NSTEMI; AMS; Seizures Interval history: No change Objective - Vital Signs Vital signs: Vital Signs - 12hr 03/17/22 03/17/22 03/17/22 01:15 01:25 01:30 Temperature Pulse Rate 107 H 107 H Pulse Rate [ Right Radial] Respiratory 25 H 27 H Rate Respiratory Rate [no pain] Blood Pressure 105/70 103/69 O2 Sat by Pulse 96 97 96 Oximetry 03/17/22 03/17/22 03/17/22 01:45 02:00 02:15 Temperature Pulse Rate 108 H 109 H 107 H Pulse Rate [ Right Radial] Respiratory 27 H 23 22 Rate Respiratory Rate [no pain] Blood Pressure 99/72 99/72 115/64 O2 Sat by Pulse 96 99 99 Oximetry 03/17/22 03/17/22 03/17/22 02:30 02:45 03:00 Temperature Pulse Rate 108 H 108 H 107 H Pulse Rate [ Right Radial] Respiratory 25 H 25 H 23 Rate Respiratory Rate [no pain] Blood Pressure 111/66 111/66 111/68 O2 Sat by Pulse 100 99 99 Oximetry 03/17/22 03/17/22 03/17/22 03:15 03:30 03:32 Temperature 98.2 F Pulse Rate 107 H 107 H Pulse Rate [ Right Radial] Respiratory 23 23 Rate Respiratory Rate [no pain] Blood Pressure 105/67 111/71 O2 Sat by Pulse 99 99 Oximetry 03/17/22 03/17/22 03/17/22 03:45 04:00 04:15 Temperature Pulse Rate 93 H 107 H 108 H Pulse Rate [ 109 H Right Radial] Respiratory 23 22 22 Rate Respiratory Rate [no pain] Blood Pressure 104/65 104/71 108/68 O2 Sat by Pulse 100 99 100 Oximetry 03/17/22 03/17/22 03/17/22 04:22 04:30 04:45 Temperature Pulse Rate 108 H 107 H 109 H Pulse Rate [ Right Radial] Respiratory 25 H 23 Rate Respiratory Rate [no pain] Blood Pressure 108/68 105/67 94/70 O2 Sat by Pulse 98 89 100 Oximetry 03/17/22 03/17/22 03/17/22 05:00 05:15 05:30 Temperature Pulse Rate 108 H 109 H 104 H Pulse Rate [ Right Radial] Respiratory 19 20 22 Rate Respiratory Rate [no pain] Blood Pressure 99/69 101/69 94/67 O2 Sat by Pulse 100 100 100 Oximetry 03/17/22 03/17/22 03/17/22 05:45 06:00 06:15 Temperature Pulse Rate 107 H 105 H 109 H Pulse Rate [ Right Radial] Respiratory 22 32 H 23 Rate Respiratory Rate [no pain] Blood Pressure 102/69 102/60 101/65 O2 Sat by Pulse 100 85 97 Oximetry 03/17/22 03/17/22 03/17/22 06:30 06:45 07:00 Temperature Pulse Rate 107 H 107 H 107 H Pulse Rate [ Right Radial] Respiratory 23 22 21 Rate Respiratory Rate [no pain] Blood Pressure 96/64 94/60 85/61 O2 Sat by Pulse 99 100 100 Oximetry 03/17/22 03/17/22 03/17/22 07:15 07:27 07:30 Temperature Pulse Rate 108 H 107 H 107 H Pulse Rate [ Right Radial] Respiratory 20 22 Rate Respiratory Rate [no pain] Blood Pressure 90/63 90/63 109/61 O2 Sat by Pulse 100 100 100 Oximetry 03/17/22 03/17/22 03/17/22 07:45 08:00 08:15 Temperature Pulse Rate 107 H 110 H 102 H Pulse Rate [ 110 H Right Radial] Respiratory 21 21 21 Rate Respiratory Rate [no pain] Blood Pressure 99/61 97/66 101/61 O2 Sat by Pulse 100 100 100 Oximetry 03/17/22 03/17/22 03/17/22 08:30 08:37 08:50 Temperature 99.5 F Pulse Rate 106 H 106 H 105 H Pulse Rate [ Right Radial] Respiratory 20 21 22 Rate Respiratory Rate [no pain] Blood Pressure 99/69 99/69 99/65 O2 Sat by Pulse 100 100 98 Oximetry 03/17/22 03/17/22 03/17/22 08:55 09:00 09:10 Temperature 99.5 F Pulse Rate 105 H 105 H 106 H Pulse Rate [ Right Radial] Respiratory 21 20 21 Rate Respiratory Rate [no pain] Blood Pressure 99/65 101/69 101/69 O2 Sat by Pulse 100 100 100 Oximetry 03/17/22 03/17/22 03/17/22 09:20 09:30 09:40 Temperature 99.5 F Pulse Rate 106 H 105 H 105 H Pulse Rate [ Right Radial] Respiratory 21 20 20 Rate Respiratory Rate [no pain] Blood Pressure 99/66 99/67 101/69 O2 Sat by Pulse 100 100 100 Oximetry 03/17/22 03/17/22 03/17/22 09:50 10:00 10:10 Temperature Pulse Rate 105 H 105 H 104 H Pulse Rate [ Right Radial] Respiratory 20 19 20 Rate Respiratory 21 Rate [no pain] Blood Pressure 100/66 92/62 99/67 O2 Sat by Pulse 100 100 98 Oximetry 03/17/22 03/17/22 03/17/22 10:20 10:25 10:30 Temperature 98.7 F Pulse Rate 105 H 104 H Pulse Rate [ Right Radial] Respiratory 19 19 Rate Respiratory Rate [no pain] Blood Pressure 105/65 105/65 O2 Sat by Pulse 100 97 Oximetry 03/17/22 03/17/22 03/17/22 10:40 10:50 11:00 Temperature Pulse Rate 105 H 106 H 105 H Pulse Rate [ Right Radial] Respiratory 18 20 22 Rate Respiratory Rate [no pain] Blood Pressure 103/64 107/69 O2 Sat by Pulse 100 100 97 Oximetry 03/17/22 03/17/22 03/17/22 11:10 11:21 11:30 Temperature 98.7 F Pulse Rate 105 H 106 H Pulse Rate [ Right Radial] Respiratory 19 19 Rate Respiratory Rate [no pain] Blood Pressure 107/69 100/67 O2 Sat by Pulse 100 100 Oximetry 03/17/22 03/17/22 03/17/22 11:45 12:00 12:15 Temperature Pulse Rate 104 H 106 H 103 H Pulse Rate [ 110 H Right Radial] Respiratory 18 19 21 Rate Respiratory Rate [no pain] Blood Pressure 100/68 106/65 102/69 O2 Sat by Pulse 100 100 99 Oximetry 03/17/22 03/17/22 03/17/22 12:23 12:30 12:45 Temperature Pulse Rate 104 H 104 H 102 H Pulse Rate [ Right Radial] Respiratory 19 20 Rate Respiratory Rate [no pain] Blood Pressure 102/69 98/61 93/63 O2 Sat by Pulse 100 99 99 Oximetry 03/17/22 13:00 Temperature Pulse Rate 102 H Pulse Rate [ Right Radial] Respiratory 20 Rate Respiratory Rate [no pain] Blood Pressure 105/65 O2 Sat by Pulse 98 Oximetry - General Appearance General appearance: sedated on ventilator, intubated, other EENT: PERRL Neck: supple Respiratory: Present: Other (Air entry pervent) Cardiology: regular, S1S2 Gastrointestinal: other (Soft) Neurologic: other (+Arousal) - Lab 03/17/22 04:00 03/17/22 04:00 Most recent lab results ABG pH 7.334 pH Units (7.350-7.450) L 03/17/22 05:00 ABG pCO2 44.3 mm Hg 03/17/22 05:00 ABG pO2 132.4 mm Hg (80.0-90.0) H 03/17/22 05:00 ABG HCO3 23.0 mmol/L (20.0-26.0) 03/17/22 05:00 ABG O2 Saturation 99.0 % (95.0-99.0) 03/17/22 05:00 Calcium 8.1 mg/dL (8.4-10.2) L 03/17/22 04:00 Phosphorus 3.80 mg/dL (2.5-4.5) D 03/16/22 04:50 Magnesium 1.90 mg/dL (1.7-2.3) 03/16/22 04:50 Urine Sodium 64 mmol/L 03/10/22 18:20 Medications & Allergies - Medications Allergies/Adverse Reactions: Allergies Penicillins Allergy (Mild, Verified 01/11/19 12:20) Rash . Home Medications: Home Medications Medication Instructions Recorded Confirmed Last Taken Type Ciprofloxacin HCl [Ciprofloxacin 500 mg PO Q12H #14 tab 01/11/19 Unknown Rx TAB] levETIRAcetam [Keppra TAB] 500 mg PO BID #60 tablet 01/11/19 Unknown Rx Active Medications: Generic Name Dose Route Start Last Admin Trade Name Freq PRN Reason Stop Dose Admin Acetaminophen 650 mg 03/13/22 05:50 03/15/22 13:37 Acetaminophen 325 Mg/10.15 Ml Oral Liqd Unit Dose FEEDTUBE 650 mg Q6H PRN Administration Non Cardiac Pain or Temp>100.5 Bisacodyl 10 mg 03/15/22 10:00 Bisacodyl 5 Mg Tab PO QDAY PRN Constipation Enoxaparin Sodium 40 mg 03/12/22 10:00 03/17/22 09:59 Enoxaparin 40 Mg/0.4 Ml Inj SUB-Q 40 mg QDAY@1000 SHAHBAZ Administration Protocol Famotidine 20 mg 03/12/22 10:00 03/17/22 10:00 Famotidine 20 Mg Tab FEEDTUBE 20 mg BID SHAHBAZ Administration Fentanyl 50 mcg 03/10/22 10:58 03/14/22 20:48 Fentanyl 100 Mcg/2 Ml Inj IV 50 mcg Q10MIN PRN Administration ANALGESIA Hydrophilic Ointment 1 applic 03/10/22 11:03 Lip Therapy Vaseline TP Q2HR PRN Dry Lips Fentanyl Citrate 2,000 mcg in 100 mls @ 4.16 mls/hr 03/10/22 11:00 03/17/22 10:33 Fentanyl Drip Premix IV 3 mcg/kg/hr TITR SHAHBAZ 12.48 mls/hr Titration Protocol 1 MCG/KG/HR NORepinephrine/NS 8 MG-250 ML 8 mg in 250 mls @ 3.75 mls/hr 03/10/22 11:00 03/17/22 12:24 Norepinephrine/Ns 8 Mg-250 Ml (Double Conc) IV 4 mcg/min TITRATE SHAHBAZ 7.5 mls/hr Titration Protocol 2 MCG/MIN Meropenem/Sodium Chloride 1 gram in 100 mls @ 100 mls/hr 03/14/22 22:00 03/17/22 05:45 Merrem/Ns 1 Gram/100 Ml IV 100 mls/hr Q8H SHAHBAZ Administration Protocol Sodium Chloride 500 mls @ 0 mls/hr 03/17/22 07:33 Nacl 0.9% 500 Ml IV 03/17/22 23:59 ONCE NR As Directed Levetiracetam 500 mg 03/12/22 10:00 03/17/22 10:00 Levetiracetam 500 Mg/5 Ml Oral Liqd FEEDTUBE 500 mg BID SHAHBAZ Administration Magnesium Hydroxide 30 ml 03/10/22 02:56 Magnesium Hydroxide (Mom) Oral Liqd Udc PO Q4H PRN Constipation Multi-Ingred Cream/Lotion/Oil/Oint 1 applic 03/10/22 11:03 Mineral Oil/Petrolatum, White Ophth Oint 3.5 Gm OU Q4HR PRN Dry Eye(s) Ondansetron HCl 4 mg 03/10/22 02:56 Ondansetron 4 Mg/2 Ml Inj IV Q8H PRN Nausea And Vomiting Polyethylene Glycol 17 gm 03/12/22 10:00 03/17/22 10:34 Polyethylene Glycol 3350 17 Gm Powder FEEDTUBE 17 gm QDAY SHAHBAZ Administration Senna/Docusate Sodium 2 tab 03/14/22 10:00 03/17/22 10:34 Sennosides/Docusate Sodium 8.6/50 Mg Tab FEEDTUBE 2 tab Q12H SHAHBAZ Administration Sodium Chloride 10 ml 03/10/22 10:00 03/17/22 10:00 Sodium Chloride 0.9% 10 Ml Flush Syringe IV 10 ml BID SHAHBAZ Administration Sodium Chloride 10 ml 03/10/22 02:56 Sodium Chloride 0.9% 10 Ml Flush Syringe IV PRN PRN LINE FLUSH
[2022-03-17 15:44] LABS: Hematocrit 24.9 % (30.3-42.9); Hemoglobin 8.2 gm/dl (10.1-14.3)
[2022-03-18] MEDS: fentaNYL DRIP Premix 2,000 MCG/100 ML BAG IV SCH ×4 (01:31→21:37)
[2022-03-18 05:24] LABS: ABG Base Excess -4.3 mmol/L (-2.0-3.0); ABG Methemoglobin 0.4 % (0.0-1.5); ABG Oxygen Saturation 94.9 % (95.0-99.0); ABG PCO2 45.5 mm Hg; ABG PH 7.302 pH Units (7.350-7.450)
[2022-03-18 06:01] LABS: Hematocrit 25.1 % (30.3-42.9); Hemoglobin 8.1 gm/dl (10.1-14.3); Mean Corpuscular HGB Conc 32 % (30-34); Mean Corpuscular Volume 87 fl (79-97); Red Blood Count 2.88 M/mm3 (3.65-5.03)
[2022-03-18 06:19] LABS: Alanine Aminotransferase 14 units/L (7-56); Blood Urea Nitrogen 66 mg/dL (7-17); Calcium 8.2 mg/dL (8.4-10.2); Hemolysis Index 9
[2022-03-18 06:20] LABS: BUN/Creatinine Ratio 94
[2022-03-18 06:32] LABS: Platelet Count 336 K/mm3 (140-440)
[2022-03-18] MEDS: MEROPENEM/NS 1 GRAM/100 ML 1 GRAM/100 ML BAG IV SCH ×3 (06:53→21:37)
[2022-03-18 07:15] LABS: Anisocytosis 1+; Basophils % (Manual) 0 % (0.0-1.8); Eosinophils % (Manual) 0.5 % (0.0-4.3); Total Cells Counted 200
[2022-03-18 07:16] LABS: Hypochromasia 1+; Platelet Estimate Consistent w Auto; Target Cells Few
[2022-03-18] MEDS: POLYETHYLENE GLYCOL 3350 17 GM POWDER FEEDTUBE SCH (09:25)
[2022-03-18] MEDS: FAMOTIDINE 20 MG TAB FEEDTUBE SCH ×2 (09:25→21:37)
[2022-03-18] MEDS: ENOXAPARIN 40 MG/0.4 ML INJ SUB-Q SCH (09:25)
[2022-03-18] MEDS: levETIRAcetam 500 MG/5 ML ORAL LIQD FEEDTUBE SCH ×2 (09:25→21:37)
[2022-03-18] MEDS: NORepinephrine/NS 8 MG-250 ML 8 MG/250 ML INFUS..BTL IV SCH (09:26)
[2022-03-18] MEDS: SENNOSIDES/DOCUSATE SODIUM 8.6/50 MG TAB FEEDTUBE SCH ×2 (11:00→21:37)
--- NOTE | 2022-03-18 11:50 | Progress Note ---
Assessment and Plan Prerenal Azotemia - Hold further Diuretics if possible until BP improves, f/u BUN/Cr Electrolyte Imbalance - F/u resolving HypoNa Hypotension - Titrate vasopressor as tolerated for better SBP Anemia - F/u H/H Pneumonia/Resp Failure - Vent Mx per Pulm Multiple Sclerosis - F/u Mx per Neuro Subjective Date of service: 03/18/22 Principal diagnosis: AHRF; Multifocal Pneumonia; Septic shock; NSTEMI; AMS; Seizures Interval history: No change Objective - Vital Signs Vital signs: Vital Signs - 12hr 03/18/22 03/18/22 03/18/22 00:00 00:15 00:30 Pulse Rate 99 H 96 H 98 H Pulse Rate [ 98 H Right Radial] Respiratory 20 21 22 Rate Blood Pressure 96/61 94/59 94/62 O2 Sat by Pulse 99 96 99 Oximetry 03/18/22 03/18/22 03/18/22 00:45 01:00 01:15 Pulse Rate 98 H 99 H 99 H Pulse Rate [ Right Radial] Respiratory 22 22 22 Rate Blood Pressure 98/59 101/61 96/62 O2 Sat by Pulse 98 99 99 Oximetry 03/18/22 03/18/22 03/18/22 01:30 01:45 02:00 Pulse Rate 99 H 98 H 99 H Pulse Rate [ Right Radial] Respiratory 21 22 22 Rate Blood Pressure 91/58 99/61 95/62 O2 Sat by Pulse 99 100 100 Oximetry 03/18/22 03/18/22 03/18/22 02:15 02:30 02:45 Pulse Rate 107 H 100 H 99 H Pulse Rate [ Right Radial] Respiratory 23 20 22 Rate Blood Pressure 104/67 99/62 100/61 O2 Sat by Pulse 97 99 99 Oximetry 03/18/22 03/18/22 03/18/22 03:00 03:15 03:30 Pulse Rate 99 H 98 H 99 H Pulse Rate [ Right Radial] Respiratory 21 21 21 Rate Blood Pressure 99/64 91/62 95/61 O2 Sat by Pulse 99 99 99 Oximetry 03/18/22 03/18/22 03/18/22 03:45 04:00 04:15 Pulse Rate 99 H 99 H 100 H Pulse Rate [ 94 H Right Radial] Respiratory 21 21 22 Rate Blood Pressure 89/65 93/60 100/64 O2 Sat by Pulse 99 99 99 Oximetry 0703/18/22 03/18/22 04:30 04:45 04:46 Pulse Rate 98 H 98 H 98 H Pulse Rate [ Right Radial] Respiratory 21 23 Rate Blood Pressure 96/62 97/64 97/64 O2 Sat by Pulse 100 97 98 Oximetry 03/18/22 03/18/22 03/18/22 05:00 05:15 05:30 Pulse Rate 98 H 94 H 94 H Pulse Rate [ Right Radial] Respiratory 21 23 23 Rate Blood Pressure 96/66 93/61 97/64 O2 Sat by Pulse 98 98 98 Oximetry 03/18/22 03/18/22 03/18/22 05:45 06:00 06:15 Pulse Rate 98 H 99 H 100 H Pulse Rate [ Right Radial] Respiratory 24 22 24 Rate Blood Pressure 94/60 97/63 96/62 O2 Sat by Pulse 96 98 97 Oximetry 03/18/22 03/18/22 03/18/22 06:30 06:45 07:00 Pulse Rate 100 H 98 H 98 H Pulse Rate [ Right Radial] Respiratory 22 20 22 Rate Blood Pressure 104/62 96/62 95/61 O2 Sat by Pulse 99 99 99 Oximetry 03/18/22 03/18/22 03/18/22 07:15 07:30 07:45 Pulse Rate 99 H 98 H 98 H Pulse Rate [ Right Radial] Respiratory 22 22 22 Rate Blood Pressure 98/64 99/63 106/61 O2 Sat by Pulse 99 98 98 Oximetry 03/18/22 03/18/22 03/18/22 08:00 08:15 08:30 Pulse Rate 99 H 98 H 99 H Pulse Rate [ 99 H Right Radial] Respiratory 21 20 21 Rate Blood Pressure 95/61 96/63 95/61 O2 Sat by Pulse 97 98 98 Oximetry 03/18/22 03/18/22 03/18/22 08:45 09:00 09:15 Pulse Rate 99 H 92 H 93 H Pulse Rate [ Right Radial] Respiratory 22 23 21 Rate Blood Pressure 95/66 94/59 89/57 O2 Sat by Pulse 97 95 98 Oximetry 03/18/22 03/18/22 03/18/22 09:30 09:45 11:40 Pulse Rate 94 H 100 H 101 H Pulse Rate [ Right Radial] Respiratory 22 23 Rate Blood Pressure 94/61 96/65 95/63 O2 Sat by Pulse 98 98 97 Oximetry - General Appearance General appearance: sedated on ventilator, intubated Neck: no JVD Respiratory: Present: Other (Air entry per vent) Cardiology: regular, S1S2 Gastrointestinal: other (Soft) Neurologic: other (Poorly responsive) - Lab 03/18/22 05:20 03/18/22 05:20 Most recent lab results ABG pH 7.302 pH Units (7.350-7.450) L 03/18/22 05:04 ABG pCO2 45.5 mm Hg 03/18/22 05:04 ABG pO2 71.0 mm Hg (80.0-90.0) L 03/18/22 05:04 ABG HCO3 22.0 mmol/L (20.0-26.0) 03/18/22 05:04 ABG O2 Saturation 94.9 % (95.0-99.0) L 03/18/22 05:04 Calcium 8.2 mg/dL (8.4-10.2) L 03/18/22 05:20 Phosphorus 3.70 mg/dL (2.5-4.5) 03/18/22 05:20 Magnesium 2.00 mg/dL (1.7-2.3) 03/18/22 05:20 Urine Sodium 64 mmol/L 03/10/22 18:20 Medications & Allergies - Medications Allergies/Adverse Reactions: Allergies Penicillins Allergy (Mild, Verified 01/11/19 12:20) Rash . Home Medications: Home Medications Medication Instructions Recorded Confirmed Last Taken Type Ciprofloxacin HCl [Ciprofloxacin 500 mg PO Q12H #14 tab 01/11/19 Unknown Rx TAB] levETIRAcetam [Keppra TAB] 500 mg PO BID #60 tablet 01/11/19 Unknown Rx Active Medications: Generic Name Dose Route Start Last Admin Trade Name Freq PRN Reason Stop Dose Admin Acetaminophen 650 mg 03/13/22 05:50 03/15/22 13:37 Acetaminophen 325 Mg/10.15 Ml Oral Liqd Unit Dose FEEDTUBE 650 mg Q6H PRN Administration Non Cardiac Pain or Temp>100.5 Bisacodyl 10 mg 03/15/22 10:00 Bisacodyl 5 Mg Tab PO QDAY PRN Constipation Enoxaparin Sodium 40 mg 03/12/22 10:00 03/18/22 09:25 Enoxaparin 40 Mg/0.4 Ml Inj SUB-Q 40 mg QDAY@1000 SHAHBAZ Administration Protocol Famotidine 20 mg 03/12/22 10:00 03/18/22 09:25 Famotidine 20 Mg Tab FEEDTUBE 20 mg BID SHAHBAZ Administration Fentanyl 50 mcg 03/10/22 10:58 03/14/22 20:48 Fentanyl 100 Mcg/2 Ml Inj IV 50 mcg Q10MIN PRN Administration ANALGESIA Hydrophilic Ointment 1 applic 03/10/22 11:03 Lip Therapy Vaseline TP Q2HR PRN Dry Lips Fentanyl Citrate 2,000 mcg in 100 mls @ 4.16 mls/hr 03/10/22 11:00 03/18/22 07:06 Fentanyl Drip Premix IV 3 mcg/kg/hr TITR SHAHBAZ 12.48 mls/hr Administration Protocol 1 MCG/KG/HR NORepinephrine/NS 8 MG-250 ML 8 mg in 250 mls @ 3.75 mls/hr 03/10/22 11:00 03/18/22 09:26 Norepinephrine/Ns 8 Mg-250 Ml (Double Conc) IV 4 mcg/min TITRATE SHAHBAZ 7.5 mls/hr Administration Protocol 2 MCG/MIN Meropenem/Sodium Chloride 1 gram in 100 mls @ 100 mls/hr 03/14/22 22:00 03/18/22 06:53 Merrem/Ns 1 Gram/100 Ml IV 100 mls/hr Q8H SHAHBAZ Administration Protocol Levetiracetam 500 mg 03/12/22 10:00 03/18/22 09:25 Levetiracetam 500 Mg/5 Ml Oral Liqd FEEDTUBE 500 mg BID SHAHBAZ Administration Magnesium Hydroxide 30 ml 03/10/22 02:56 Magnesium Hydroxide (Mom) Oral Liqd Udc PO Q4H PRN Constipation Multi-Ingred Cream/Lotion/Oil/Oint 1 applic 03/10/22 11:03 Mineral Oil/Petrolatum, White Ophth Oint 3.5 Gm OU Q4HR PRN Dry Eye(s) Ondansetron HCl 4 mg 03/10/22 02:56 Ondansetron 4 Mg/2 Ml Inj IV Q8H PRN Nausea And Vomiting Polyethylene Glycol 17 gm 03/12/22 10:00 03/18/22 09:25 Polyethylene Glycol 3350 17 Gm Powder FEEDTUBE 17 gm QDAY SHAHBAZ Administration Senna/Docusate Sodium 2 tab 03/14/22 10:00 03/17/22 22:15 Sennosides/Docusate Sodium 8.6/50 Mg Tab FEEDTUBE 2 tab Q12H SHAHBAZ Administration Sodium Chloride 10 ml 03/10/22 10:00 03/18/22 09:25 Sodium Chloride 0.9% 10 Ml Flush Syringe IV 10 ml BID SHAHBAZ Administration Sodium Chloride 10 ml 03/10/22 02:56 Sodium Chloride 0.9% 10 Ml Flush Syringe IV PRN PRN LINE FLUSH
--- NOTE | 2022-03-18 12:59 | Progress Note ---
Assessment and Plan - Patient Problems (1) Respiratory failure Current Visit: Yes Status: Acute Plan to address problem: Patient has a history of multiple sclerosis, no reported cardiac history, presented to the hospital with respiratory insufficiency and currently on the vent in the ICU. Chest x-ray showed confluent consolidations in both lung fraire consistent with a severe bilateral pneumonia. A COVID-19 test was positive. Cardiac consultation was requested for the finding of a nonspecific, isolated rise in troponin levels. EKG show sinus rhythm with no acute ischemic changes. Echocardiogram done on this presentation shows left ventricular systolic ejection fraction at the lower limits of normal 50%. No acute cardiovascular issues at this time, will continue supportive management of cardiac status, defer treatment of respiratory failure and bilateral pneumonia to internal medicine and pulmonary. Subjective Date of service: 03/18/22 Principal diagnosis: AHRF; Multifocal Pneumonia; Septic shock; NSTEMI; AMS; Seizures Interval history: Patient is on the vent, sedated, no new cardiac events reported. Objective Vital Signs Temp Pulse Pulse Resp Resp BP Pulse Ox 03/18/22 11:40 101 H 95/63 97 03/18/22 09:45 100 H 23 96/65 98 03/18/22 09:30 94 H 22 94/61 98 03/18/22 09:15 93 H 21 89/57 98 03/18/22 09:00 92 H 23 94/59 95 03/18/22 08:45 99 H 22 95/66 97 03/18/22 08:30 99 H 21 95/61 98 03/18/22 08:15 98 H 20 96/63 98 03/18/22 08:00 99 H 99 H 21 95/61 97 03/18/22 07:45 98 H 22 106/61 98 03/18/22 07:30 98 H 22 99/63 98 03/18/22 07:15 99 H 22 98/64 99 03/18/22 07:00 98 H 22 95/61 99 03/18/22 06:45 98 H 20 96/62 99 03/18/22 06:30 100 H 22 104/62 99 03/18/22 06:15 100 H 24 96/62 97 03/18/22 06:00 99 H 22 97/63 98 03/18/22 05:45 98 H 24 94/60 96 03/18/22 05:30 94 H 23 97/64 98 03/18/22 05:15 94 H 23 93/61 98 03/18/22 05:00 98 H 21 96/66 98 03/18/22 04:46 98 H 97/64 98 03/18/22 04:45 98 H 23 97/64 97 03/18/22 04:30 98 H 21 96/62 100 03/18/22 04:15 100 H 22 100/64 99 03/18/22 04:00 99 H 94 H 21 93/60 99 03/18/22 03:45 99 H 21 89/65 99 03/18/22 03:30 99 H 21 95/61 99 03/18/22 03:15 98 H 21 91/62 99 03/18/22 03:00 99 H 21 99/64 99 03/18/22 02:45 99 H 22 100/61 99 03/18/22 02:30 100 H 20 99/62 99 03/18/22 02:15 107 H 23 104/67 97 03/18/22 02:00 99 H 22 95/62 100 03/18/22 01:45 98 H 22 99/61 100 03/18/22 01:30 99 H 21 91/58 99 03/18/22 01:15 99 H 22 96/62 99 03/18/22 01:00 99 H 22 101/61 99 03/18/22 00:45 98 H 22 98/59 98 03/18/22 00:30 98 H 22 94/62 99 03/18/22 00:15 96 H 21 94/59 96 03/18/22 00:00 99 H 98 H 20 96/61 99 03/17/22 23:45 99 H 21 97/62 99 03/17/22 23:30 99 H 21 86/62 99 03/17/22 23:21 99 H 90/61 97 03/17/22 23:15 98 H 22 90/61 99 03/17/22 23:00 95 H 21 94/62 99 03/17/22 22:45 95 H 22 92/64 98 03/17/22 22:30 108 H 23 95/66 97 03/17/22 22:15 95 H 21 94/62 98 03/17/22 22:00 100 H 22 21 94/60 99 03/17/22 21:46 99 H 22 91/62 98 03/17/22 21:45 99 H 22 91/62 99 03/17/22 21:30 97 H 22 93/60 97 03/17/22 21:15 100 H 20 95/62 99 03/17/22 21:00 95 H 22 99/60 99 03/17/22 20:45 99 H 22 91/60 98 03/17/22 20:30 100 H 23 95/62 99 03/17/22 20:15 99 H 21 99/60 99 03/17/22 20:00 100.9 F H 93 H 93 H 22 95/64 97 02 19:45 90 22 91/62 95 03/17/22 19:33 107 H 112/59 97 03/17/22 19:30 107 H 22 112/59 97 03/17/22 19:15 106 H 22 94/62 98 03/17/22 19:00 105 H 22 105/61 97 03/17/22 18:45 105 H 22 95/61 98 03/17/22 18:30 106 H 21 98/62 98 03/17/22 18:15 106 H 21 90/61 98 03/17/22 18:00 106 H 21 98/63 99 03/17/22 17:45 106 H 20 96/61 99 03/17/22 17:30 106 H 21 103/62 99 03/17/22 17:15 105 H 22 93/62 99 03/17/22 17:00 106 H 21 96/63 99 03/17/22 16:45 106 H 23 94/64 97 03/17/22 16:30 106 H 21 93/63 98 03/17/22 16:15 105 H 24 100/63 97 03/17/22 16:00 104 H 110 H 25 H 104/64 97 03/17/22 15:45 103 H 23 100/64 95 02 15:40 104 H 104/64 97 03/17/22 15:30 104 H 21 104/64 98 03/17/22 15:15 104 H 22 109/65 97 03/17/22 15:00 103 H 19 99/65 98 03/17/22 14:45 103 H 21 91/62 96 03/17/22 14:30 103 H 22 96/64 97 03/17/22 14:15 100 H 22 108/65 94 03/17/22 14:00 100 H 21 102/63 94 03/17/22 13:45 102 H 20 95/62 98 03/17/22 13:30 103 H 20 93/59 98 03/17/22 13:15 102 H 20 95/63 98 03/17/22 13:00 102 H 20 105/65 98 - Physical Examination General: Other (intubated on mechanical ventilator) HEENT: Positive: PERRL Neck: Positive: neck supple, trachea midline. Negative: JVD/HJR Cardiac: Positive: Reg Rate and Rhythm Lungs: Positive: Decreased Breath Sounds Neuro: Positive: Other (Intubated, sedated on the vent) Abdomen: Positive: Soft Skin: Positive: Clear, Other (multiple wounds) Extremities: Absent: edema - Labs and Meds Cardiac Enzymes 03/18/22 Range/Units 05:20 AST 39 (5-40) units/L CBC 03/17/22 03/18/22 Range/Units 15:30 05:20 WBC 23.9 H (4.5-11.0) K/mm3 RBC 2.88 L (3.65-5.03) M/mm3 Hgb 8.2 L 8.1 L (10.1-14.3) gm/dl Hct 24.9 L 25.1 L (30.3-42.9) % Plt Count 336 (140-440) K/mm3 Comprehensive Metabolic Panel 03/18/22 Range/Units 05:20 Sodium 135 L (137-145) mmol/L Potassium 5.0 (3.6-5.0) mmol/L Chloride 101.6 (98-107) mmol/L Carbon Dioxide 23 (22-30) mmol/L BUN 66 H (7-17) mg/dL Creatinine 0.7 (0.6-1.2) mg/dL Glucose 122 H (65-100) mg/dL Calcium 8.2 L (8.4-10.2) mg/dL AST 39 (5-40) units/L ALT 14 (7-56) units/L Alkaline Phosphatase 119 (35-129) units/L Total Protein 5.4 L (6.3-8.2) g/dL Albumin 2.0 L (3.9-5) g/dL - Allied health notes Allied health notes reviewed: nursing
--- NOTE | 2022-03-18 14:45 | Progress Note ---
Assessment and Plan Assessment and plan: Interval history: This is a 61-year-old female with multiple sclerosis and seizure disorder who presented to emergency department on 03/10 via EMS for evaluation of shortness of breath and difficulty breathing. Upon arrival of EMS patient's SPO2 was in the 50s and she was hypotensive to 80s over 50s and was started on IV fluids in route and placed on CPAP. Upon arrival to the emergency department patient was placed on BiPAP and work-up in the emergency department included a CXR which showed multifocal pneumonia, lab work revealed hyponatremia, hypokalemia, lactic acidosis, metabolic acidosis and elevated troponins. Patient was started on empiric antibiotics and admitted to the hospital service with Sepsis, acute hypoxic respiratory failure, electrolyte imbalances and elevated troponins with consults to cardiology, pulmonology and nephrology. Hospital Course to Date: 03/10: S/p intubation this am due to tachypnea and worsen mental status. Current sedated and stable on the vent. Patient is now on low dose Levophed gtt due to hypotension. Presented with a Na level of 119, on continuous NS at 125ml, repeat BMP pending. Continue IVF hydration and serial Na Q6hrs. Nephrology is also following. Continue empiric IV Abx for CAP, COVID PCR pending, ID consult pending. D-Dimer also elevated, BLE doppler ordered, therapeutic Lovenox initiat ed. D/W CCM patient is too unstable for transport at this time, possible CTA chest in the am or once patient is more stable. Cardiology was also consulted for elevated troponin X2, EKG noted with no significant ST changes, 2D echo pending. Resume home AEDs, continue seizure precautions. Monitor and replace electrolytes as needed 03/11: Intubated and low dose fentanyl gtt. Open eyes spontaneously but does not track, not following commands. NA level 132 this am, Nabcarb gtt initiated per Nephro. CT head/brain w/o con ordered to r/o intracranial abnormality. Wean off sedation to better assess mental status. Remains on Levophed gtt, afebrile, but with leukocytosis this am. This am CXR and ABG noted, with significant improvement. D/w CCM, PE less likely will hold off on CTA chest for now. Lovenox switched to Qday. Continue empiric IV Abx, ID consult pending. 03/12: Discontinue bicarb gtt, replete phos and potassium, added miralax. Remain on levo and fent gtt 03/13: MRI brain/C-spine completed, EEG completed. Hyponatremia improved, patient remains on Levophed. Had a temperature of 101.3 remains on cefepime. Will defer to ID for abx. Will reculture on next temperature spike. 03/14: Overnight patient had hypoxia issues and FiO2 was increased to 100%, received lasix with repeat dose in AM. Hypotension and increase in levophed. Replete K. 03/15: hypoxia overnight and currently on 100%. RN attempted to lay flat and patient desatted to 88%. Will attempt again later today. Given lasix again. Hopeful to be able to have MRI today. Type and screen today for downtrending h/h, Wean FiO2 as tolerated, repelted phos with sodium phos. 03/16: hypoxic, fio2: 80%, desats on positional movements. Remains on levophed gtt, attempting to wean off. Remains too unstable for MRI brain. May benefit from steroids if altered mentation believed to be from MS flare. 03/17: Hypoxic overnight. FIO2 increased to 95%. Continue icu level supportive care with vent, levophed Gtt, merrem. Hgb 6.6 this AM, ordered 1 unit prbc. 03/18: WBC uptrending, persisting fevers. will re-culture with urine cx, sputum cx and bcx. Overall poor prognosis. Will attempt GOK discussion with family. Assessment and Plan Neuro: Acute metabolic encephalopathy, h/o Multiple Sclerosis, Seizure disorder -Neurology consulted, appreciate recommendations -Sedated with Fentanyl gtt -RASS goal 0 to -1 -Keppra -Reorientation as needed -Maintain sleep-wake cycle -Seizure precautions -As needed analgesia -CT head shows vascular angioplasty without clear evidence of acute intracranial hemorrhage -MRI brain with and without contrast and MRI C-spine with and without contrast pending -EEG considered abnormal and is compatible with diffuse encephalopathy of perhaps significant brain sedation or neuro active medication or daily combination of both. Absence of epileptiform abnormality but would not rule out possibility of epilepsy -UDS (+) for opiates -Prealbumin 0.044, vitamin B 12 1021, folate 2.15, syphilis nonreactive Cardiac: Hypotension, Elevated troponin -Cardiology consulted, appreciate recommendations -BNP 47073 -Blood pressure monitoring per protocol -Vasopressor support with Levophed gtt -MAP goal greater than 65 -Echocardiogram LVEF 50%, no pulmonary HTN Respiratory: ARDS, Acute hypoxic respiratory failure -CCM consulted, appreciate recommendations -Intubated on 03/10 with 7.5 OETT at 23 cm at the lips in the ED -A.m. vent settings: AC TV 400, Rate 14, PEEP 10, FiO2 @ 100% -See RT notes for titration -s/p lasix x 2 03/14, lasix today -A.m. ABG and CXR noted -VAP bundle -SPO2 monitoring GI: Moderate Protein Calorie Malnutrition, Transaminitis -24 hours + 1832 mL -PPI -NTR consulted for tube feedings -BR: Miralax, Senokot S -Trend LFTs : Severe hyponatremia, hypophosphatemia -Nephrology consulted, appreciate recommendations -Record intake and output -s/p Sodium Bicarb gtt -Renally dose medications -Avoid nephrotoxic medications -Replete phosphate -Trend BMP ID: Septic Shock, CAP, lactic acidosis (resolved) -Covid 19 PCR (-) -Infectious disease consulted, appreciate recommendation -Antibiotic therapy escalated to merropenum -f/u blood culture -Monitor WBC and temperature curve Endo: NAD -Avoid hypoglycemia -SSI -Accu-Cheks q. 6hr Heme: Leukocytosis -Trend CBC -Transfuse hemoglobin less than 7 -SCDs to BLE while in bed The high probability of a clinically significant, sudden or life threatening deterioration of the [multiple] system(s) required my full and direct attention, intervention and personal management. The aggregate critical care time was [60] minutes. This time is in addition to time spent performing reported procedures but includes the following: [x] Data Review and interpretation [x] Patient assessment and monitoring of vital signs [x] Documentation [x] Medication orders and management Disposition Plan: icu Total Time Spent with Patient (Minutes): 60 History Interval history: Intubated and sedated. Hospitalist Physical - Physical exam Narrative exam: General appearance: Present: no acute distress, other (sedated, intubated) - EENT Eyes: Present: PERRL, EOM intact ENT: poor dentition - Neck Neck: Present: normal ROM - Respiratory Respiratory effort: normal Respiratory: bilateral: diminished, rhonchi - Cardiovascular Rhythm: regular Heart Sounds: Present: S1 & S2. Absent: systolic murmur, diastolic murmur - Extremities Extremities: no ischemia, pulses intact, pulses symmetrical, No edema, normal temperature, normal color Peripheral Pulses: within normal limits - Abdominal General gastrointestinal: soft, non-tender, non-distended, normal bowel sounds - Integumentary Integumentary: Present: warm, dry - Psychiatric Psychiatric: other - Neurologic Neurologic: other (moves BUE, intermittently follows commands, intact cough/gag) - Allied Health Allied health notes reviewed: nursing, RT, social work - Constitutional Vitals: Temp Pulse Resp BP Pulse Ox 100.9 F H 102 H 24 98/60 96 03/17/22 20:00 03/18/22 13:15 03/18/22 13:15 03/18/22 13:15 03/18/22 13:15 General appearance: Present: no acute distress, other (sedated, intubated) HEART Score - HEART Score Troponin: Troponin T 0.032 ng/mL (0.00-0.029) H D 03/10/22 12:24 Results - Labs CBC & Chem 7: 03/18/22 05:20 03/18/22 05:20 Labs: Laboratory Last Values WBC 23.9 K/mm3 (4.5-11.0) H 03/18/22 05:20 RBC 2.88 M/mm3 (3.65-5.03) L 03/18/22 05:20 Hgb 8.1 gm/dl (10.1-14.3) L 03/18/22 05:20 Hct 25.1 % (30.3-42.9) L 03/18/22 05:20 MCV 87 fl (79-97) 03/18/22 05:20 MCH 28 pg (28-32) 03/18/22 05:20 MCHC 32 % (30-34) 03/18/22 05:20 RDW 16.0 % (13.2-15.2) H 03/18/22 05:20 Plt Count 336 K/mm3 (140-440) 03/18/22 05:20 Lymph % (Auto) 8.9 % (13.4-35.0) L 03/11/22 05:00 [place] % (Auto) 4.2 % (0.0-7.3) 03/11/22 05:00 Eos % (Auto) 0.1 % (0.0-4.3) 03/11/22 05:00 Baso % (Auto) 0.2 % (0.0-1.8) 03/11/22 05:00 Lymph # (Auto) 1.2 K/mm3 (1.2-5.4) 03/11/22 05:00 [place] # (Auto) 0.6 K/mm3 (0.0-0.8) 03/11/22 05:00 Eos # (Auto) 0.0 K/mm3 (0.0-0.4) 03/11/22 05:00 Baso # (Auto) 0.0 K/mm3 (0.0-0.1) 03/11/22 05:00 Add Manual Diff Complete 03/18/22 05:20 Total Counted 200 03/18/22 05:20 Seg Neutrophils % 86.6 % (40.0-70.0) H 03/11/22 05:00 Seg Neuts % (Manual) 89.0 % (40.0-70.0) H 03/18/22 05:20 Band Neutrophils % 0 % 03/18/22 05:20 Lymphocytes % (Manual) 7.5 % (13.4-35.0) L 03/18/22 05:20 Reactive Lymphs % (Man) 0 % 03/18/22 05:20 Monocytes % (Manual) 3.0 % (0.0-7.3) 03/18/22 05:20 Eosinophils % (Manual) 0.5 % (0.0-4.3) 03/18/22 05:20 Basophils % (Manual) 0 % (0.0-1.8) 03/18/22 05:20 Metamyelocytes % 0 % 03/18/22 05:20 Myelocytes % 0 % 03/18/22 05:20 Promyelocytes % 0 % 03/18/22 05:20 Blast Cells % 0 % 03/18/22 05:20 Nucleated RBC % Not Reportable 03/18/22 05:20 Seg Neutrophils # 11.8 K/mm3 (1.8-7.7) H 03/11/22 05:00 Seg Neutrophils # Man 21.3 K/mm3 (1.8-7.7) H 03/18/22 05:20 Band Neutrophils # 0.0 K/mm3 03/18/22 05:20 Lymphocytes # (Manual) 1.8 K/mm3 (1.2-5.4) 03/18/22 05:20 Abs React Lymphs (Man) 0.0 K/mm3 03/18/22 05:20 Monocytes # (Manual) 0.7 K/mm3 (0.0-0.8) 03/18/22 05:20 Eosinophils # (Manual) 0.1 K/mm3 (0.0-0.4) 03/18/22 05:20 Basophils # (Manual) 0.0 K/mm3 (0.0-0.1) 03/18/22 05:20 Metamyelocytes # 0.0 K/mm3 03/18/22 05:20 Myelocytes # 0.0 K/mm3 03/18/22 05:20 Promyelocytes # 0.0 K/mm3 03/18/22 05:20 Blast Cells # 0.0 K/mm3 03/18/22 05:20 WBC Morphology Not Reportable 03/18/22 05:20 Hypersegmented Neuts Not Reportable 03/18/22 05:20 Hyposegmented Neuts Not Reportable 03/18/22 05:20 Hypogranular Neuts Not Reportable 03/18/22 05:20 Smudge Cells Not Reportable 03/18/22 05:20 Toxic Granulation Not Reportable 03/18/22 05:20 Toxic Vacuolation Not Reportable 03/18/22 05:20 Dohle Bodies Not Reportable 03/18/22 05:20 Pelger-Huet Anomaly Not Reportable 03/18/22 05:20 Luis Rods Not Reportable 03/18/22 05:20 Platelet Estimate Consistent w auto 03/18/22 05:20 Clumped Platelets Not Reportable 03/18/22 05:20 Plt Clumps, EDTA Not Reportable 03/18/22 05:20 Large Platelets Not Reportable 03/18/22 05:20 Giant Platelets Not Reportable 03/18/22 05:20 Platelet Satelliting Not Reportable 03/18/22 05:20 Plt Morphology Comment Not Reportable 03/18/22 05:20 RBC Morphology Not Reportable 03/18/22 05:20 Dimorphic RBCs Not Reportable 03/18/22 05:20 Polychromasia Not Reportable 03/18/22 05:20 Hypochromasia 1+ 03/18/22 05:20 Poikilocytosis Not Reportable 03/18/22 05:20 Anisocytosis 1+ 03/18/22 05:20 Microcytosis Not Reportable 03/18/22 05:20 Macrocytosis Not Reportable 03/18/22 05:20 Spherocytes Not Reportable 03/18/22 05:20 Pappenheimer Bodies Not Reportable 03/18/22 05:20 Sickle Cells Not Reportable 03/18/22 05:20 Target Cells Few 03/18/22 05:20 Tear Drop Cells Not Reportable 03/18/22 05:20 Ovalocytes Not Reportable 03/18/22 05:20 Helmet Cells Not Reportable 03/18/22 05:20 [place] Bodies Not Reportable 03/18/22 05:20 [place] Rings Not Reportable 03/18/22 05:20 [place] Cells Not Reportable 03/18/22 05:20 Bite Cells Not Reportable 03/18/22 05:20 Crenated Cell Not Reportable 03/18/22 05:20 Elliptocytes Not Reportable 03/18/22 05:20 Acanthocytes (Spur) Not Reportable 03/18/22 05:20 Rouleaux Not Reportable 03/18/22 05:20 Hemoglobin C Crystals Not Reportable 03/18/22 05:20 Schistocytes Not Reportable 03/18/22 05:20 Malaria parasites Not Reportable 03/18/22 05:20 Tani Bodies Not Reportable 03/18/22 05:20 Hem Pathologist Commnt No 03/18/22 05:20 PT 14.9 Sec. (12.2-14.9) 03/10/22 01:25 INR 1.03 (0.87-1.13) 03/10/22 01:25 D-Dimer 787.78 ng/mlDDU (0-234) H 03/10/22 05:45 ABG pH 7.302 pH Units (7.350-7.450) L 03/18/22 05:04 ABG pCO2 45.5 mm Hg 03/18/22 05:04 ABG pO2 71.0 mm Hg (80.0-90.0) L 03/18/22 05:04 ABG HCO3 22.0 mmol/L (20.0-26.0) 03/18/22 05:04 ABG O2 Saturation 94.9 % (95.0-99.0) L 03/18/22 05:04 ABG O2 Content 12.6 (0.0-44) 03/18/22 05:04 ABG Base Excess -4.3 mmol/L (-2.0-3.0) L 03/18/22 05:04 ABG Hemoglobin 9.6 gm/dl (12.0-16.0) L 03/18/22 05:04 ABG Carboxyhemoglobin 1.7 % (0.0-5.0) 03/18/22 05:04 ABG Methemoglobin 0.4 % (0.0-1.5) 03/18/22 05:04 Oxyhemoglobin 92.9 % (95.0-99.0) L 03/18/22 05:04 FiO2 80 % 03/18/22 05:04 Sodium 135 mmol/L (137-145) L 03/18/22 05:20 Potassium 5.0 mmol/L (3.6-5.0) 03/18/22 05:20 Chloride 101.6 mmol/L (98-107) 03/18/22 05:20 Carbon Dioxide 23 mmol/L (22-30) 03/18/22 05:20 Anion Gap 15 mmol/L 03/18/22 05:20 BUN 66 mg/dL (7-17) H 03/18/22 05:20 Creatinine 0.7 mg/dL (0.6-1.2) 03/18/22 05:20 Estimated GFR > 60 ml/min 03/18/22 05:20 BUN/Creatinine Ratio 94 % 03/18/22 05:20 Glucose 122 mg/dL (65-100) H 03/18/22 05:20 POC Glucose 119 mg/dL (70-105) H 03/18/22 12:04 Osmolality 285 Mosm/kg 03/10/22 12:24 Lactic Acid 0.90 mmol/L (0.7-2.0) 03/18/22 05:20 Uric Acid 1.6 mg/dL (3.5-7.6) L 03/10/22 13:15 Calcium 8.2 mg/dL (8.4-10.2) L 03/18/22 05:20 Phosphorus 3.70 mg/dL (2.5-4.5) 03/18/22 05:20 Magnesium 2.00 mg/dL (1.7-2.3) 03/18/22 05:20 Ferritin 219.2 ng/mL (10.0-200.0) H 03/10/22 05:45 Total Bilirubin 0.30 mg/dL (0.1-1.2) 03/18/22 05:20 AST 39 units/L (5-40) 03/18/22 05:20 ALT 14 units/L (7-56) 03/18/22 05:20 Alkaline Phosphatase 119 units/L (35-129) 03/18/22 05:20 Lactate Dehydrogenase 210 units/L (91-180) H 03/10/22 05:45 Total Creatine Kinase 901 units/L (30-135) H 03/10/22 12:24 CK-MB (CK-2) 15.3 ng/mL (0.0-4.0) H 03/10/22 12:24 CK-MB (CK-2) Rel Index 1.6 (0-4) 03/10/22 12:24 Troponin T 0.032 ng/mL (0.00-0.029) H D 03/10/22 12:24 C-Reactive Protein < 0.03 mg/dL (0.00-1.30) 03/10/22 05:45 NT-Pro-B Natriuret Pep 05577 pg/mL (0-900) H 03/10/22 01:25 Total Protein 5.4 g/dL (6.3-8.2) L 03/18/22 05:20 Albumin 2.0 g/dL (3.9-5) L 03/18/22 05:20 Albumin/Globulin Ratio 0.6 % 03/18/22 05:20 Prealbumin 0.044 g/L (0.200-0.400) L 03/12/22 18:40 Triglycerides 47 mg/dL (2-149) 03/10/22 01:25 Cholesterol 259 mg/dL (50-199) H 03/10/22 01:25 LDL Cholesterol Direct 187 mg/dL (50-130) H 03/10/22 01:25 HDL Cholesterol 63 mg/dL (40-59) H 03/10/22 01:25 Cholesterol/HDL Ratio 4.11 % 03/10/22 01:25 Lipase 15 units/L (13-60) 03/10/22 01:25 Vitamin B12 1021 pg/mL (211-911) H 03/12/22 18:40 Folate 2.15 ng/mL (7.3-26.0) L 03/12/22 18:40 Procalcitonin 3.92 ng/mL (<0.15) 03/10/22 05:45 TSH 1.290 mlU/mL (0.270-4.200) 03/12/22 18:40 Urine Color Yellow (Yellow) 03/10/22 18:20 Urine Turbidity Clear (Clear) 03/10/22 18:20 Urine pH 6.0 (5.0-7.0) 03/10/22 18:20 Ur Specific [place] 1.010 (1.003-1.030) 03/10/22 18:20 Urine Protein <15 mg/dl mg/dL (Negative) 03/10/22 18:20 Urine Glucose (UA) Neg mg/dL (Negative) 03/10/22 18:20 Urine Ketones Tr mg/dL (Negative) 03/10/22 18:20 Urine Blood Sm (Negative) 03/10/22 18:20 Urine Nitrite Neg (Negative) 03/10/22 18:20 Urine Bilirubin Neg (Negative) 03/10/22 18:20 Urine Urobilinogen < 2.0 mg/dL (<2.0) 03/10/22 18:20 Ur Leukocyte Esterase Lg (Negative) 03/10/22 18:20 Urine WBC (Auto) 105.0 /HPF (0.0-6.0) H 03/10/22 18:20 Urine RBC (Auto) 2.0 /HPF (0.0-6.0) 03/10/22 18:20 U Epithel Cells (Auto) < 1.0 /HPF (0-13.0) 03/10/22 18:20 Urine Bacteria (Auto) 1+ /HPF (Negative) 03/10/22 18:20 Urine Osmolality 368 Mosm/kg 03/10/22 18:20 Urine Sodium 64 mmol/L 03/10/22 18:20 Urine Opiates Screen Presumptive positive 03/10/22 18:20 Urine Methadone Screen Presumptive negative 03/10/22 18:20 Ur Barbiturates Screen Presumptive negative 03/10/22 18:20 Ur Phencyclidine Scrn Presumptive negative 03/10/22 18:20 Ur Amphetamines Screen Presumptive negative 03/10/22 18:20 U Benzodiazepines Scrn Presumptive negative 03/10/22 18:20 Urine Cocaine Screen Presumptive negative 03/10/22 18:20 U Marijuana (THC) Screen Presumptive negative 03/10/22 18:20 Drugs of Abuse Note Disclamer 03/10/22 18:20 Copper 118 mcg/dL (70-175) 03/12/22 18:40 Syphilis IgG/IgM Ab Nonreactive (NonReactive) 03/12/22 18:40 SARS-CoV-2 (PCR) Negative (Negative) 03/10/22 09:50 Blood Type O POSITIVE 03/15/22 09:42 Antibody Screen Negative 03/15/22 09:42 Crossmatch See Detail 03/15/22 09:42 Microbiology: Microbiology 03/14/22 Unknown Urine,Catheterized - Straight Catheter Urine Culture - Final NO GROWTH AFTER 48 HOURS [place]/IV: Voiding Method Indwelling Catheter Active Medications - Current Medications Current Medications: Generic Name Dose Route Start Last Admin Trade Name Freq PRN Reason Stop Dose Admin Acetaminophen 650 mg 03/13/22 05:50 03/15/22 13:37 Acetaminophen 325 Mg/10.15 Ml Oral Liqd Unit Dose FEEDTUBE 650 mg Q6H PRN Administration Non Cardiac Pain or Temp>100.5 Bisacodyl 10 mg 03/15/22 10:00 Bisacodyl 5 Mg Tab PO QDAY PRN Constipation Enoxaparin Sodium 40 mg 03/12/22 10:00 03/18/22 09:25 Enoxaparin 40 Mg/0.4 Ml Inj SUB-Q 40 mg QDAY@1000 SHAHBAZ Administration Protocol Famotidine 20 mg 03/12/22 10:00 03/18/22 09:25 Famotidine 20 Mg Tab FEEDTUBE 20 mg BID SHAHBAZ Administration Fentanyl 50 mcg 03/10/22 10:58 03/14/22 20:48 Fentanyl 100 Mcg/2 Ml Inj IV 50 mcg Q10MIN PRN Administration ANALGESIA Hydrophilic Ointment 1 applic 03/10/22 11:03 Lip Therapy Vaseline TP Q2HR PRN Dry Lips Fentanyl Citrate 2,000 mcg in 100 mls @ 4.16 mls/hr 03/10/22 11:00 03/18/22 14:32 Fentanyl Drip Premix IV 3 mcg/kg/hr TITR SHAHBAZ 12.48 mls/hr Administration Protocol 1 MCG/KG/HR NORepinephrine/NS 8 MG-250 ML 8 mg in 250 mls @ 3.75 mls/hr 03/10/22 11:00 03/18/22 09:26 Norepinephrine/Ns 8 Mg-250 Ml (Double Conc) IV 4 mcg/min TITRATE SHAHBAZ 7.5 mls/hr Administration Protocol 2 MCG/MIN Meropenem/Sodium Chloride 1 gram in 100 mls @ 100 mls/hr 03/14/22 22:00 03/18/22 14:26 Merrem/Ns 1 Gram/100 Ml IV 100 mls/hr Q8H SHAHBAZ Administration Protocol Levetiracetam 500 mg 03/12/22 10:00 03/18/22 09:25 Levetiracetam 500 Mg/5 Ml Oral Liqd FEEDTUBE 500 mg BID SHAHBAZ Administration Magnesium Hydroxide 30 ml 03/10/22 02:56 Magnesium Hydroxide (Mom) Oral Liqd Udc PO Q4H PRN Constipation Multi-Ingred Cream/Lotion/Oil/Oint 1 applic 03/10/22 11:03 Mineral Oil/Petrolatum, White Ophth Oint 3.5 Gm OU Q4HR PRN Dry Eye(s) Ondansetron HCl 4 mg 03/10/22 02:56 Ondansetron 4 Mg/2 Ml Inj IV Q8H PRN Nausea And Vomiting Polyethylene Glycol 17 gm 03/12/22 10:00 03/18/22 09:25 Polyethylene Glycol 3350 17 Gm Powder FEEDTUBE 17 gm QDAY SHAHBAZ Administration Senna/Docusate Sodium 2 tab 03/14/22 10:00 03/17/22 22:15 Sennosides/Docusate Sodium 8.6/50 Mg Tab FEEDTUBE 2 tab Q12H SHAHBAZ Administration Sodium Chloride 10 ml 03/10/22 10:00 03/18/22 09:25 Sodium Chloride 0.9% 10 Ml Flush Syringe IV 10 ml BID SHAHBAZ Administration Sodium Chloride 10 ml 03/10/22 02:56 Sodium Chloride 0.9% 10 Ml Flush Syringe IV PRN PRN LINE FLUSH Nutrition/Malnutrition Assess - Dietary Evaluation Nutrition/Malnutrition Findings: Nutrition Notes Start: 03/10/22 12:22 Freq: Status: Active Protocol: Document 03/14/22 12:08 JOSH (Rec: 03/14/22 12:31 JOSH [id number]) Nutrition Notes Initial or Follow up Brief Note Current Diagnosis Sepsis,Hypertension, Respiratory Failure, Malnutrition Other Pertinent Diagnosis MS, CAP, Seizure, Metabolic Encephalopathy, Hyponatremia, Hypokalemia, ... Current Diet TF-Vital AF 1.2 En @ 60 ml/hr (since D 03/10). Height 5 ft 6 in Weight 83.2 kg [place] Body Weight (kg) 59.09 BMI 29.6 Weight change and time frame No body weight change reported in 4 days. Weight Status Overweight Subjective/Other Information RD consult for routine F/U on TF tolerance/continuation. TF continues as prescribed, and well tolerated, according to RN notes. Pt remains on Mechanical Ventilation, O2 saturation @ 97%, according to Physical Assessment History notes. Pt presents an unspecified area of concern for skin risk with redness and flakiness, according to Physical Assessment History notes. Percent of energy/protein needs met: Prescribed TF-Vital AF 1.2 En @ 60 ml/hr provides for energy/protein needs (1,728 Kcal/108 g) during LOS, 100% Kcal; 100% AA. #1 Nutrition Diagnosis Inadequate oral intake Diagnosis Progress(for reassessment Continues documentation) Is patient on ventilator? Yes Is Patient Ambulatory and/or Out of Bed No REE-([facility]-confined to bed) 1713.168 Calculation Used for Recommendations [facility] Additional Notes Protein: 1-1.2 g/Kg ABW; 100- 166 g/day. Fluids: 1 ml/Kcal, or as per MD. Nutrition Intervention Nutrition Support: Continue TF-Vital AF 1.2 En @ 60 ml/hr. Flush: 100 ml water Q 4 hr, or as per MD. Kcal 1,728 Protein (gm) 108 Carbohydrates (gm) 159 Fat (gm) 78 Fluid (mL) 1,168 Fiber (gm) 7 % RDI: 100% Kcal; 100% AA. Goal #1 Provide at least 75% of energy /protein needs through Enteral Feeding during LOS. Follow-Up By: 03/21/22 Additional Comments Continue monitoring TF tolerance, Ventilation Status, Pressor support, and BM.
--- NOTE | 2022-03-18 15:06 | Progress Note ---
Assessment and Plan Acute Hypoxemic Respiratory Failure on MVS Multifocal Pneumonia/CAP Severe Hyponatremia Septic shock Lactic Acidosis NSTEMI/Elevated Troponin Elevated BNP Hypokalemia R/o COVID Acute Metabolic Encephalopathy H/o Seizure Disorder Elevated D-Dimer Moderate Protein Calorie Malnutrition - begin scopolamine patch - follow serum potassium closely - appropriate rise in H&H post transfusion - wean vasopressor support to keep MAP>65 - repeat ABG in am - keep peep at 14 (PIP's 27 cm H2O) - ARDS net ventilatory strategies - lactic acid level WNL - continue Meropenem; de-escalate per ID recommendations - continue care as below otherwise; - Daily SAT and SBT assessment as tolerated - continue to wean supplemental oxygen for target O2 sat's > 90% acutely - VAP bundle addressed - continue lung protective strategies - continue bronchodilators with pulmonary hygiene per RT - wean per pulmonary driven protocols otherwise - continue accuchecks with glycemic control per SSI (While critically ill target blood glucose of 140-180 mg/dL; avoid hypoglycemia) - sedation prn for target RASS 0 to -1 - avoid nephrotoxins, renally dose all medications - continue to avoid benzodiazepine's, reduce the possibility of delirium - complete AB's per ID rec's - prn analgesia per CPOT score - Maintenance of sleep-wake cycle, avoid delirium - continue enteral nutritional support at goal rate as tolerated - G.I. & VTE prophylaxis - PT/OT/ROM exercises - continue mobility protocols for pressure ulcer prophylaxis - Monitor hemodynamics closely - continue other care per attending / other consultants - discharge planning ongoing concurrently COVID SPECIFIC INTERVENTIONS - COVID-19 PCR negative .... Re-evaluate in am & prn CONDITION: CRITICAL PROGNOSIS: GUARDED CODE STATUS: FULL CODE The high probability of a clinically significant, sudden or life-threatening deterioration of the [respiratory, cardiovascular & neurologic] system(s) required my full and direct attention, intervention and personal management. The aggregate critical care time was [35] minutes without overlap. Time includes spent on; [x] Data Review and interpretation [x] Patient assessment and monitoring of vital signs [x] Documentation [x] Medication orders and management Subjective Date of service: 03/18/22 Principal diagnosis: AHRF; Multifocal Pneumonia; Septic shock; NSTEMI; AMS; Seizures Interval history: Patient is seen today for: Acute Hypoxemic Respiratory Failure; Multifocal Pneumonia/CAP; Hyponatremia; Septic shock; NSTEMI; AMS; Seizure Disorder; Moderate Protein Calorie Malnutrition Seen and examined at bedside; 24hour events reviewed; nursing and respiratory care staff consulted; no adverse overnight events reported to me; resting peacefully in bed; remains on MVS; oropharyngeal secretions copious; FiO2 down to 65%; AMS is persistent Objective Vital Signs - 12hr 03/18/22 03/18/22 03/18/22 03:15 03:30 03:45 Pulse Rate 98 H 99 H 99 H Pulse Rate [ Right Radial] Respiratory 21 21 21 Rate Respiratory Rate [no pain] Blood Pressure 91/62 95/61 89/65 O2 Sat by Pulse 99 99 99 Oximetry 03/18/22 03/18/22 03/18/22 04:00 04:15 04:30 Pulse Rate 99 H 100 H 98 H Pulse Rate [ 94 H Right Radial] Respiratory 21 22 21 Rate Respiratory Rate [no pain] Blood Pressure 93/60 100/64 96/62 O2 Sat by Pulse 99 99 100 Oximetry 03/18/22 03/18/22 03/18/22 04:45 04:46 05:00 Pulse Rate 98 H 98 H 98 H Pulse Rate [ Right Radial] Respiratory 23 21 Rate Respiratory Rate [no pain] Blood Pressure 97/64 97/64 96/66 O2 Sat by Pulse 97 98 98 Oximetry 03/18/22 03/18/22 03/18/22 05:15 05:30 05:45 Pulse Rate 94 H 94 H 98 H Pulse Rate [ Right Radial] Respiratory 23 23 24 Rate Respiratory Rate [no pain] Blood Pressure 93/61 97/64 94/60 O2 Sat by Pulse 98 98 96 Oximetry 03/18/22 03/18/22 03/18/22 06:00 06:15 06:30 Pulse Rate 99 H 100 H 100 H Pulse Rate [ Right Radial] Respiratory 22 24 22 Rate Respiratory Rate [no pain] Blood Pressure 97/63 96/62 104/62 O2 Sat by Pulse 98 97 99 Oximetry 03/18/22 03/18/22 03/18/22 06:45 07:00 07:15 Pulse Rate 98 H 98 H 99 H Pulse Rate [ Right Radial] Respiratory 20 22 22 Rate Respiratory Rate [no pain] Blood Pressure 96/62 95/61 98/64 O2 Sat by Pulse 99 99 99 Oximetry 03/18/22 03/18/22 03/18/22 07:30 07:45 08:00 Pulse Rate 98 H 98 H 99 H Pulse Rate [ 99 H Right Radial] Respiratory 22 22 21 Rate Respiratory Rate [no pain] Blood Pressure 99/63 106/61 95/61 O2 Sat by Pulse 98 98 97 Oximetry 03/18/22 03/18/22 03/18/22 08:15 08:30 08:45 Pulse Rate 98 H 99 H 99 H Pulse Rate [ Right Radial] Respiratory 20 21 22 Rate Respiratory Rate [no pain] Blood Pressure 96/63 95/61 95/66 O2 Sat by Pulse 98 98 97 Oximetry 03/18/22 03/18/22 03/18/22 09:00 09:15 09:30 Pulse Rate 92 H 93 H 94 H Pulse Rate [ Right Radial] Respiratory 23 21 22 Rate Respiratory Rate [no pain] Blood Pressure 94/59 89/57 94/61 O2 Sat by Pulse 95 98 98 Oximetry 03/18/22 03/18/22 03/18/22 09:45 10:00 10:15 Pulse Rate 100 H 100 H 93 H Pulse Rate [ Right Radial] Respiratory 23 22 23 Rate Respiratory 21 Rate [no pain] Blood Pressure 96/65 102/62 94/62 O2 Sat by Pulse 98 99 92 Oximetry 03/18/22 03/18/22 03/18/22 10:30 10:45 11:00 Pulse Rate 102 H 100 H 100 H Pulse Rate [ Right Radial] Respiratory 22 22 22 Rate Respiratory Rate [no pain] Blood Pressure 96/64 95/61 95/64 O2 Sat by Pulse 97 98 99 Oximetry 03/18/22 03/18/22 03/18/22 11:15 11:30 11:40 Pulse Rate 100 H 99 H 101 H Pulse Rate [ Right Radial] Respiratory 24 22 Rate Respiratory Rate [no pain] Blood Pressure 99/64 95/63 95/63 O2 Sat by Pulse 99 99 97 Oximetry 03/18/22 03/18/22 03/18/22 11:45 12:00 12:15 Pulse Rate 101 H 102 H 96 H Pulse Rate [ Right Radial] Respiratory 23 22 25 H Rate Respiratory Rate [no pain] Blood Pressure 98/61 92/61 100/59 O2 Sat by Pulse 97 96 95 Oximetry 03/18/22 03/18/22 03/18/22 12:30 12:45 13:00 Pulse Rate 97 H 98 H 102 H Pulse Rate [ Right Radial] Respiratory 23 24 24 Rate Respiratory Rate [no pain] Blood Pressure 90/59 95/59 95/63 O2 Sat by Pulse 92 94 96 Oximetry 03/18/22 13:15 Pulse Rate 102 H Pulse Rate [ Right Radial] Respiratory 24 Rate Respiratory Rate [no pain] Blood Pressure 98/60 O2 Sat by Pulse 96 Oximetry Constitutional: no acute distress, alert, other (middle aged female with anasarca and on MVS) Eyes: non-icteric ENT: oropharynx moist, other (ETT 24 cm BLANCA) Neck: supple, no lymphadenopathy, no JVD Effort: mildly labored Ascultation: Bilateral: rales Percussion: Bilateral: not dull Cardiovascular: regular rate and rhythm Gastrointestinal: normoactive bowel sounds, soft, non-tender, non-distended Integumentary: normal Extremities: no cyanosis, no edema, pulses normal, no ischemia or petechiae Neurologic: pupils equal and round, unable to assess, other (weak) Psychiatric: other (unable to assess re: AMS) CBC and BMP: 03/19/22 08:59 03/19/22 08:59 ABG, PT/INR, D-dimer: ABG ABG pH 7.302 pH Units (7.350-7.450) L 03/18/22 05:04 ABG pCO2 45.5 mm Hg 03/18/22 05:04 ABG pO2 71.0 mm Hg (80.0-90.0) L 03/18/22 05:04 ABG O2 Saturation 94.9 % (95.0-99.0) L 03/18/22 05:04 PT/INR, D-dimer PT 14.9 Sec. (12.2-14.9) 03/10/22 01:25 INR 1.03 (0.87-1.13) 03/10/22 01:25 D-Dimer 787.78 ng/mlDDU (0-234) H 03/10/22 05:45 Abnormal lab findings: Abnormal Labs 03/10/22 03/10/22 03/10/22 01:19 01:25 01:25 WBC RBC Hgb Hct MCH RDW 15.4 H Lymph % (Auto) 12.4 L Lymph # (Auto) 1.1 L Seg Neutrophils % 85.9 H Seg Neuts % (Manual) Lymphocytes % (Manual) Seg Neutrophils # Seg Neutrophils # Man Lymphocytes # (Manual) Monocytes # (Manual) Eosinophils # (Manual) D-Dimer ABG pH ABG pO2 59.3 L ABG HCO3 16.7 L ABG O2 Saturation 92.3 L ABG Base Excess -7.8 L ABG Hemoglobin 11.4 L Oxyhemoglobin 90.8 L Sodium 119 L* Potassium 3.1 L Chloride 88.1 L Carbon Dioxide 16 L BUN Creatinine 0.3 L Glucose 146 H POC Glucose Lactic Acid Uric Acid Calcium 8.2 L Phosphorus Magnesium 1.30 L Ferritin ALT 5 L Lactate Dehydrogenase Total Creatine Kinase CK-MB (CK-2) Troponin T NT-Pro-B Natriuret Pep Total Protein 5.4 L Albumin 3.6 L Prealbumin Cholesterol LDL Cholesterol Direct HDL Cholesterol Vitamin B12 Folate Urine WBC (Auto) Crossmatch 03/10/22 03/10/22 03/10/22 01:25 01:25 01:25 WBC RBC Hgb Hct MCH RDW Lymph % (Auto) Lymph # (Auto) Seg Neutrophils % Seg Neuts % (Manual) Lymphocytes % (Manual) Seg Neutrophils # Seg Neutrophils # Man Lymphocytes # (Manual) Monocytes # (Manual) Eosinophils # (Manual) D-Dimer ABG pH ABG pO2 ABG HCO3 ABG O2 Saturation ABG Base Excess ABG Hemoglobin Oxyhemoglobin Sodium Potassium Chloride Carbon Dioxide BUN Creatinine Glucose POC Glucose Lactic Acid 3.60 H* Uric Acid Calcium Phosphorus Magnesium Ferritin ALT Lactate Dehydrogenase Total Creatine Kinase CK-MB (CK-2) 4.6 H Troponin T 0.164 H* NT-Pro-B Natriuret Pep 61968 H Total Protein Albumin Prealbumin Cholesterol 259 H LDL Cholesterol Direct 187 H HDL Cholesterol 63 H Vitamin B12 Folate Urine WBC (Auto) Crossmatch 03/10/22 03/10/22 03/10/22 02:43 05:45 05:45 WBC RBC Hgb Hct MCH RDW Lymph % (Auto) Lymph # (Auto) Seg Neutrophils % Seg Neuts % (Manual) Lymphocytes % (Manual) Seg Neutrophils # Seg Neutrophils # Man Lymphocytes # (Manual) Monocytes # (Manual) Eosinophils # (Manual) D-Dimer 787.78 H ABG pH ABG pO2 ABG HCO3 ABG O2 Saturation ABG Base Excess ABG Hemoglobin Oxyhemoglobin Sodium Potassium Chloride Carbon Dioxide BUN Creatinine Glucose POC Glucose Lactic Acid 3.70 H* 3.10 H* Uric Acid Calcium Phosphorus Magnesium Ferritin ALT Lactate Dehydrogenase Total Creatine Kinase CK-MB (CK-2) Troponin T NT-Pro-B Natriuret Pep Total Protein Albumin Prealbumin Cholesterol LDL Cholesterol Direct HDL Cholesterol Vitamin B12 Folate Urine WBC (Auto) Crossmatch 03/10/22 03/10/22 03/10/22 05:45 05:45 12:24 WBC RBC Hgb Hct MCH RDW Lymph % (Auto) Lymph # (Auto) Seg Neutrophils % Seg Neuts % (Manual) Lymphocytes % (Manual) Seg Neutrophils # Seg Neutrophils # Man Lymphocytes # (Manual) Monocytes # (Manual) Eosinophils # (Manual) D-Dimer ABG pH ABG pO2 ABG HCO3 ABG O2 Saturation ABG Base Excess ABG Hemoglobin Oxyhemoglobin Sodium 124 L Potassium 3.3 L Chloride Carbon Dioxide 11 L BUN Creatinine 0.2 L Glucose POC Glucose Lactic Acid Uric Acid Calcium 6.9 L D Phosphorus Magnesium Ferritin 219.2 H ALT Lactate Dehydrogenase 210 H Total Creatine Kinase CK-MB (CK-2) Troponin T NT-Pro-B Natriuret Pep Total Protein Albumin Prealbumin Cholesterol LDL Cholesterol Direct HDL Cholesterol Vitamin B12 Folate Urine WBC (Auto) Crossmatch 03/10/22 03/10/22 03/10/22 12:24 12:24 12:24 WBC RBC Hgb Hct MCH RDW Lymph % (Auto) Lymph # (Auto) Seg Neutrophils % Seg Neuts % (Manual) Lymphocytes % (Manual) Seg Neutrophils # Seg Neutrophils # Man Lymphocytes # (Manual) Monocytes # (Manual) Eosinophils # (Manual) D-Dimer ABG pH ABG pO2 ABG HCO3 ABG O2 Saturation ABG Base Excess ABG Hemoglobin Oxyhemoglobin Sodium 128 L Potassium Chloride Carbon Dioxide BUN Creatinine Glucose POC Glucose Lactic Acid 2.70 H* Uric Acid Calcium Phosphorus Magnesium Ferritin ALT Lactate Dehydrogenase Total Creatine Kinase 901 H CK-MB (CK-2) 15.3 H Troponin T 0.032 H D NT-Pro-B Natriuret Pep Total Protein Albumin Prealbumin Cholesterol LDL Cholesterol Direct HDL Cholesterol Vitamin B12 Folate Urine WBC (Auto) Crossmatch 03/10/22 03/10/22 03/10/22 12:45 13:15 18:00 WBC RBC Hgb Hct MCH RDW Lymph % (Auto) Lymph # (Auto) Seg Neutrophils % Seg Neuts % (Manual) Lymphocytes % (Manual) Seg Neutrophils # Seg Neutrophils # Man Lymphocytes # (Manual) Monocytes # (Manual) Eosinophils # (Manual) D-Dimer ABG pH 7.315 L ABG pO2 70.1 L ABG HCO3 15.6 L ABG O2 Saturation 93.8 L ABG Base Excess -9.5 L ABG Hemoglobin 11.0 L Oxyhemoglobin 92.4 L Sodium 129 L Potassium Chloride Carbon Dioxide 17 L BUN Creatinine 0.2 L Glucose POC Glucose Lactic Acid Uric Acid 1.6 L Calcium 7.0 L Phosphorus Magnesium Ferritin ALT Lactate Dehydrogenase Total Creatine Kinase CK-MB (CK-2) Troponin T NT-Pro-B Natriuret Pep Total Protein Albumin Prealbumin Cholesterol LDL Cholesterol Direct HDL Cholesterol Vitamin B12 Folate Urine WBC (Auto) Crossmatch 03/10/22 03/10/22 03/11/22 18:20 21:05 05:00 WBC 13.7 H RBC 3.44 L Hgb 9.6 L Hct 29.0 L D MCH RDW Lymph % (Auto) 8.9 L Lymph # (Auto) Seg Neutrophils % 86.6 H Seg Neuts % (Manual) Lymphocytes % (Manual) Seg Neutrophils # 11.8 H Seg Neutrophils # Man Lymphocytes # (Manual) Monocytes # (Manual) Eosinophils # (Manual) D-Dimer ABG pH ABG pO2 116.3 H ABG HCO3 17.2 L ABG O2 Saturation ABG Base Excess -6.4 L ABG Hemoglobin 11.0 L Oxyhemoglobin Sodium Potassium Chloride Carbon Dioxide BUN Creatinine Glucose POC Glucose Lactic Acid Uric Acid Calcium Phosphorus Magnesium Ferritin ALT Lactate Dehydrogenase Total Creatine Kinase CK-MB (CK-2) Troponin T NT-Pro-B Natriuret Pep Total Protein Albumin Prealbumin Cholesterol LDL Cholesterol Direct HDL Cholesterol Vitamin B12 Folate Urine WBC (Auto) 105.0 H Crossmatch 03/11/22 03/11/22 03/12/22 05:00 Unknown 04:10 WBC RBC Hgb Hct MCH RDW Lymph % (Auto) Lymph # (Auto) Seg Neutrophils % Seg Neuts % (Manual) Lymphocytes % (Manual) Seg Neutrophils # Seg Neutrophils # Man Lymphocytes # (Manual) Monocytes # (Manual) Eosinophils # (Manual) D-Dimer ABG pH 7.472 H 7.482 H ABG pO2 65.5 L ABG HCO3 19.8 L ABG O2 Saturation ABG Base Excess -2.9 L ABG Hemoglobin 10.1 L 8.4 L Oxyhemoglobin Sodium 132 L Potassium Chloride Carbon Dioxide 20 L BUN 6 L Creatinine 0.2 L Glucose POC Glucose Lactic Acid Uric Acid Calcium 7.5 L Phosphorus Magnesium Ferritin ALT Lactate Dehydrogenase Total Creatine Kinase CK-MB (CK-2) Troponin T NT-Pro-B Natriuret Pep Total Protein Albumin Prealbumin Cholesterol LDL Cholesterol Direct HDL Cholesterol Vitamin B12 Folate Urine WBC (Auto) Crossmatch 03/12/22 03/12/22 03/12/22 04:20 04:20 12:25 WBC 13.6 H RBC 3.11 L Hgb 8.7 L Hct 26.1 L MCH RDW Lymph % (Auto) Lymph # (Auto) Seg Neutrophils % Seg Neuts % (Manual) Lymphocytes % (Manual) Seg Neutrophils # Seg Neutrophils # Man Lymphocytes # (Manual) Monocytes # (Manual) Eosinophils # (Manual) D-Dimer ABG pH ABG pO2 ABG HCO3 ABG O2 Saturation ABG Base Excess ABG Hemoglobin Oxyhemoglobin Sodium 128 L Potassium 3.2 L Chloride 93.9 L Carbon Dioxide BUN 4 L Creatinine 0.2 L Glucose 103 H POC Glucose 116 H Lactic Acid Uric Acid Calcium 7.4 L Phosphorus 1.10 L Magnesium 2.40 H Ferritin ALT Lactate Dehydrogenase Total Creatine Kinase CK-MB (CK-2) Troponin T NT-Pro-B Natriuret Pep Total Protein Albumin Prealbumin Cholesterol LDL Cholesterol Direct HDL Cholesterol Vitamin B12 Folate Urine WBC (Auto) Crossmatch 03/12/22 03/12/22 03/12/22 18:40 18:40 18:40 WBC RBC Hgb Hct MCH RDW Lymph % (Auto) Lymph # (Auto) Seg Neutrophils % Seg Neuts % (Manual) Lymphocytes % (Manual) Seg Neutrophils # Seg Neutrophils # Man Lymphocytes # (Manual) Monocytes # (Manual) Eosinophils # (Manual) D-Dimer ABG pH ABG pO2 ABG HCO3 ABG O2 Saturation ABG Base Excess ABG Hemoglobin Oxyhemoglobin Sodium Potassium Chloride Carbon Dioxide BUN Creatinine Glucose POC Glucose Lactic Acid Uric Acid Calcium Phosphorus Magnesium Ferritin ALT Lactate Dehydrogenase Total Creatine Kinase CK-MB (CK-2) Troponin T NT-Pro-B Natriuret Pep Total Protein Albumin Prealbumin 0.044 L Cholesterol LDL Cholesterol Direct HDL Cholesterol Vitamin B12 1021 H Folate 2.15 L Urine WBC (Auto) Crossmatch 03/13/22 03/13/22 03/13/22 04:10 08:00 09:50 WBC 15.0 H RBC 2.82 L Hgb 8.0 L Hct 23.9 L MCH RDW 15.5 H Lymph % (Auto) Lymph # (Auto) Seg Neutrophils % Seg Neuts % (Manual) Lymphocytes % (Manual) Seg Neutrophils # Seg Neutrophils # Man Lymphocytes # (Manual) Monocytes # (Manual) Eosinophils # (Manual) D-Dimer ABG pH ABG pO2 98.6 H ABG HCO3 ABG O2 Saturation ABG Base Excess ABG Hemoglobin 8.3 L Oxyhemoglobin Sodium 130 L Potassium Chloride 96.1 L Carbon Dioxide BUN Creatinine 0.4 L D Glucose 148 H POC Glucose Lactic Acid Uric Acid Calcium 7.3 L Phosphorus Magnesium Ferritin ALT Lactate Dehydrogenase Total Creatine Kinase CK-MB (CK-2) Troponin T NT-Pro-B Natriuret Pep Total Protein Albumin Prealbumin Cholesterol LDL Cholesterol Direct HDL Cholesterol Vitamin B12 Folate Urine WBC (Auto) Crossmatch 03/13/22 03/13/22 03/14/22 20:15 22:59 04:54 WBC 17.0 H RBC 2.79 L Hgb 7.8 L Hct 23.6 L MCH RDW 15.6 H Lymph % (Auto) Lymph # (Auto) Seg Neutrophils % Seg Neuts % (Manual) Lymphocytes % (Manual) Seg Neutrophils # Seg Neutrophils # Man Lymphocytes # (Manual) Monocytes # (Manual) Eosinophils # (Manual) D-Dimer ABG pH ABG pO2 ABG HCO3 ABG O2 Saturation ABG Base Excess -2.9 L ABG Hemoglobin 8.0 L Oxyhemoglobin Sodium Potassium Chloride Carbon Dioxide BUN Creatinine Glucose POC Glucose 127 H Lactic Acid Uric Acid Calcium Phosphorus Magnesium Ferritin ALT Lactate Dehydrogenase Total Creatine Kinase CK-MB (CK-2) Troponin T NT-Pro-B Natriuret Pep Total Protein Albumin Prealbumin Cholesterol LDL Cholesterol Direct HDL Cholesterol Vitamin B12 Folate Urine WBC (Auto) Crossmatch 03/14/22 03/14/22 03/14/22 04:54 16:15 22:59 WBC RBC Hgb Hct MCH RDW Lymph % (Auto) Lymph # (Auto) Seg Neutrophils % Seg Neuts % (Manual) Lymphocytes % (Manual) Seg Neutrophils # Seg Neutrophils # Man Lymphocytes # (Manual) Monocytes # (Manual) Eosinophils # (Manual) D-Dimer ABG pH ABG pO2 ABG HCO3 ABG O2 Saturation ABG Base Excess ABG Hemoglobin Oxyhemoglobin Sodium 129 L 128 L Potassium 3.5 L Chloride 97.1 L 97.0 L Carbon Dioxide BUN 24 H 31 H Creatinine 0.5 L Glucose 125 H 114 H POC Glucose 134 H Lactic Acid Uric Acid Calcium 7.0 L 7.0 L Phosphorus Magnesium Ferritin ALT Lactate Dehydrogenase Total Creatine Kinase CK-MB (CK-2) Troponin T NT-Pro-B Natriuret Pep Total Protein Albumin Prealbumin Cholesterol LDL Cholesterol Direct HDL Cholesterol Vitamin B12 Folate Urine WBC (Auto) Crossmatch 03/15/22 03/15/22 03/15/22 04:10 04:10 05:02 WBC 12.9 H RBC 2.55 L Hgb 7.1 L Hct 21.5 L MCH RDW 15.8 H Lymph % (Auto) Lymph # (Auto) Seg Neutrophils % Seg Neuts % (Manual) 88.0 H Lymphocytes % (Manual) 5.0 L Seg Neutrophils # Seg Neutrophils # Man 11.4 H Lymphocytes # (Manual) 0.6 L Monocytes # (Manual) Eosinophils # (Manual) 0.5 H D-Dimer ABG pH ABG pO2 ABG HCO3 ABG O2 Saturation ABG Base Excess ABG Hemoglobin Oxyhemoglobin Sodium 127 L Potassium Chloride 96.3 L Carbon Dioxide 21 L BUN 33 H Creatinine Glucose 126 H POC Glucose 116 H Lactic Acid Uric Acid Calcium 7.4 L Phosphorus 1.20 L Magnesium Ferritin ALT Lactate Dehydrogenase Total Creatine Kinase CK-MB (CK-2) Troponin T NT-Pro-B Natriuret Pep Total Protein 5.3 L Albumin 2.1 L Prealbumin Cholesterol LDL Cholesterol Direct HDL Cholesterol Vitamin B12 Folate Urine WBC (Auto) Crossmatch 03/15/22 03/15/22 03/15/22 05:55 09:42 11:34 WBC RBC Hgb Hct MCH RDW Lymph % (Auto) Lymph # (Auto) Seg Neutrophils % Seg Neuts % (Manual) Lymphocytes % (Manual) Seg Neutrophils # Seg Neutrophils # Man Lymphocytes # (Manual) Monocytes # (Manual) Eosinophils # (Manual) D-Dimer ABG pH ABG pO2 119.0 H ABG HCO3 ABG O2 Saturation ABG Base Excess -3.1 L ABG Hemoglobin 8.2 L Oxyhemoglobin Sodium Potassium Chloride Carbon Dioxide BUN Creatinine Glucose POC Glucose 125 H Lactic Acid Uric Acid Calcium Phosphorus Magnesium Ferritin ALT Lactate Dehydrogenase Total Creatine Kinase CK-MB (CK-2) Troponin T NT-Pro-B Natriuret Pep Total Protein Albumin Prealbumin Cholesterol LDL Cholesterol Direct HDL Cholesterol Vitamin B12 Folate Urine WBC (Auto) Crossmatch See Detail 03/15/22 03/16/22 03/16/22 20:55 04:50 04:50 WBC 16.9 H RBC 2.53 L Hgb 7.1 L Hct 21.5 L MCH RDW 16.0 H Lymph % (Auto) Lymph # (Auto) Seg Neutrophils % Seg Neuts % (Manual) Lymphocytes % (Manual) Seg Neutrophils # Seg Neutrophils # Man Lymphocytes # (Manual) Monocytes # (Manual) Eosinophils # (Manual) D-Dimer ABG pH 7.320 L ABG pO2 122.8 H ABG HCO3 ABG O2 Saturation ABG Base Excess -4.1 L ABG Hemoglobin 7.0 L Oxyhemoglobin Sodium 132 L Potassium Chloride Carbon Dioxide 20 L BUN 44 H Creatinine Glucose 123 H POC Glucose Lactic Acid Uric Acid Calcium 7.6 L Phosphorus Magnesium Ferritin ALT Lactate Dehydrogenase Total Creatine Kinase CK-MB (CK-2) Troponin T NT-Pro-B Natriuret Pep Total Protein Albumin Prealbumin Cholesterol LDL Cholesterol Direct HDL Cholesterol Vitamin B12 Folate Urine WBC (Auto) Crossmatch 03/16/22 03/16/22 03/16/22 05:42 11:32 23:05 WBC RBC Hgb Hct MCH RDW Lymph % (Auto) Lymph # (Auto) Seg Neutrophils % Seg Neuts % (Manual) Lymphocytes % (Manual) Seg Neutrophils # Seg Neutrophils # Man Lymphocytes # (Manual) Monocytes # (Manual) Eosinophils # (Manual) D-Dimer ABG pH ABG pO2 ABG HCO3 ABG O2 Saturation ABG Base Excess ABG Hemoglobin Oxyhemoglobin Sodium Potassium Chloride Carbon Dioxide BUN Creatinine Glucose POC Glucose 113 H 118 H 114 H Lactic Acid Uric Acid Calcium Phosphorus Magnesium Ferritin ALT Lactate Dehydrogenase Total Creatine Kinase CK-MB (CK-2) Troponin T NT-Pro-B Natriuret Pep Total Protein Albumin Prealbumin Cholesterol LDL Cholesterol Direct HDL Cholesterol Vitamin B12 Folate Urine WBC (Auto) Crossmatch 03/17/22 03/17/22 03/17/22 04:00 04:00 05:00 WBC 19.1 H RBC 2.44 L Hgb 6.6 L Hct 20.6 L MCH 27 L RDW 16.4 H Lymph % (Auto) Lymph # (Auto) Seg Neutrophils % Seg Neuts % (Manual) 78.0 H Lymphocytes % (Manual) 2.0 L Seg Neutrophils # Seg Neutrophils # Man 14.9 H Lymphocytes # (Manual) 0.4 L Monocytes # (Manual) 1.3 H Eosinophils # (Manual) 0.6 H D-Dimer ABG pH 7.334 L ABG pO2 132.4 H ABG HCO3 ABG O2 Saturation ABG Base Excess -2.7 L ABG Hemoglobin 9.1 L Oxyhemoglobin Sodium 134 L Potassium Chloride Carbon Dioxide BUN 55 H Creatinine Glucose 125 H POC Glucose Lactic Acid Uric Acid Calcium 8.1 L Phosphorus Magnesium Ferritin ALT Lactate Dehydrogenase Total Creatine Kinase CK-MB (CK-2) Troponin T NT-Pro-B Natriuret Pep Total Protein Albumin Prealbumin Cholesterol LDL Cholesterol Direct HDL Cholesterol Vitamin B12 Folate Urine WBC (Auto) Crossmatch 03/17/22 03/17/22 03/17/22 05:40 15:30 17:48 WBC RBC Hgb 8.2 L Hct 24.9 L MCH RDW Lymph % (Auto) Lymph # (Auto) Seg Neutrophils % Seg Neuts % (Manual) Lymphocytes % (Manual) Seg Neutrophils # Seg Neutrophils # Man Lymphocytes # (Manual) Monocytes # (Manual) Eosinophils # (Manual) D-Dimer ABG pH ABG pO2 ABG HCO3 ABG O2 Saturation ABG Base Excess ABG Hemoglobin Oxyhemoglobin Sodium Potassium Chloride Carbon Dioxide BUN Creatinine Glucose POC Glucose 115 H 117 H Lactic Acid Uric Acid Calcium Phosphorus Magnesium Ferritin ALT Lactate Dehydrogenase Total Creatine Kinase CK-MB (CK-2) Troponin T NT-Pro-B Natriuret Pep Total Protein Albumin Prealbumin Cholesterol LDL Cholesterol Direct HDL Cholesterol Vitamin B12 Folate Urine WBC (Auto) Crossmatch 03/17/22 03/18/22 03/18/22 23:54 05:04 05:20 WBC RBC Hgb Hct MCH RDW Lymph % (Auto) Lymph # (Auto) Seg Neutrophils % Seg Neuts % (Manual) Lymphocytes % (Manual) Seg Neutrophils # Seg Neutrophils # Man Lymphocytes # (Manual) Monocytes # (Manual) Eosinophils # (Manual) D-Dimer ABG pH 7.302 L ABG pO2 71.0 L ABG HCO3 ABG O2 Saturation 94.9 L ABG Base Excess -4.3 L ABG Hemoglobin 9.6 L Oxyhemoglobin 92.9 L Sodium 135 L Potassium Chloride Carbon Dioxide BUN 66 H Creatinine Glucose 122 H POC Glucose 114 H Lactic Acid Uric Acid Calcium 8.2 L Phosphorus Magnesium Ferritin ALT Lactate Dehydrogenase Total Creatine Kinase CK-MB (CK-2) Troponin T NT-Pro-B Natriuret Pep Total Protein 5.4 L Albumin 2.0 L Prealbumin Cholesterol LDL Cholesterol Direct HDL Cholesterol Vitamin B12 Folate Urine WBC (Auto) Crossmatch 03/18/22 03/18/22 03/18/22 05:20 06:44 12:04 WBC 23.9 H RBC 2.88 L Hgb 8.1 L Hct 25.1 L MCH RDW 16.0 H Lymph % (Auto) Lymph # (Auto) Seg Neutrophils % Seg Neuts % (Manual) 89.0 H Lymphocytes % (Manual) 7.5 L Seg Neutrophils # Seg Neutrophils # Man 21.3 H Lymphocytes # (Manual) Monocytes # (Manual) Eosinophils # (Manual) D-Dimer ABG pH ABG pO2 ABG HCO3 ABG O2 Saturation ABG Base Excess ABG Hemoglobin Oxyhemoglobin Sodium Potassium Chloride Carbon Dioxide BUN Creatinine Glucose POC Glucose 107 H 119 H Lactic Acid Uric Acid Calcium Phosphorus Magnesium Ferritin ALT Lactate Dehydrogenase Total Creatine Kinase CK-MB (CK-2) Troponin T NT-Pro-B Natriuret Pep Total Protein Albumin Prealbumin Cholesterol LDL Cholesterol Direct HDL Cholesterol Vitamin B12 Folate Urine WBC (Auto) Crossmatch Allied health notes reviewed: RT
[2022-03-18] MEDS: ACETAMINOPHEN 325 MG/10.15 ML ORAL LIQD UNIT DOSE FEEDTUBE PRN (16:36)
[2022-03-19 05:52] LABS: ABG Base Excess -4.5 mmol/L (-2.0-3.0); ABG HCO3 20.8 mmol/L (20.0-26.0); ABG Methemoglobin 0.2 % (0.0-1.5); ABG Oxygen Saturation 97.2 % (95.0-99.0); ABG PCO2 39.3 mm Hg; ABG PH 7.341 pH Units (7.350-7.450); ABG PO2 78.1 mm Hg (80.0-90.0)
[2022-03-19] MEDS: MEROPENEM/NS 1 GRAM/100 ML 1 GRAM/100 ML BAG IV SCH ×3 (06:55→21:28)
[2022-03-19 09:43] LABS: BUN/Creatinine Ratio 93; Blood Urea Nitrogen 84 mg/dL (7-17); Calcium 8.4 mg/dL (8.4-10.2); Hemolysis Index 2
[2022-03-19] MEDS: fentaNYL DRIP Premix 2,000 MCG/100 ML BAG IV SCH ×2 (09:52→19:44)
[2022-03-19] MEDS: ENOXAPARIN 40 MG/0.4 ML INJ SUB-Q SCH (09:54)
[2022-03-19] MEDS: FAMOTIDINE 20 MG TAB FEEDTUBE SCH ×2 (09:54→21:26)
[2022-03-19] MEDS: levETIRAcetam 500 MG/5 ML ORAL LIQD FEEDTUBE SCH ×2 (09:54→21:26)
[2022-03-19] MEDS: SENNOSIDES/DOCUSATE SODIUM 8.6/50 MG TAB FEEDTUBE SCH ×2 (09:55→21:27)
[2022-03-19] MEDS: POLYETHYLENE GLYCOL 3350 17 GM POWDER FEEDTUBE SCH (09:55)
[2022-03-19 09:59] LABS: Hematocrit 24.2 % (30.3-42.9); Hemoglobin 7.7 gm/dl (10.1-14.3); Mean Corpuscular HGB Conc 32 % (30-34); Mean Corpuscular Volume 87 fl (79-97); Red Blood Count 2.78 M/mm3 (3.65-5.03); Red Cell Distribution Width 16.4 % (13.2-15.2)
[2022-03-19 10:17] LABS: Platelet Count 393 K/mm3 (140-440)
--- NOTE | 2022-03-19 10:25 | Progress Note ---
Assessment and Plan - Patient Problems (1) Respiratory failure Current Visit: Yes Status: Acute Plan to address problem: Patient has a history of multiple sclerosis, no reported cardiac history, presented to the hospital with respiratory insufficiency and currently on the vent in the ICU. Chest x-ray showed confluent consolidations in both lung fraire consistent with a severe bilateral pneumonia. A COVID-19 test was positive. Cardiac consultation was requested for the finding of a nonspecific, isolated rise in troponin levels. EKG show sinus rhythm with no acute ischemic changes. Echocardiogram done on this presentation shows left ventricular systolic ejection fraction at the lower limits of normal 50%. No acute cardiovascular issues at this time, will continue supportive management of cardiac status, defer treatment of respiratory failure and bilateral pneumonia to internal medicine and pulmonary. Subjective Date of service: 03/19/22 Principal diagnosis: AHRF; Multifocal Pneumonia; Septic shock; NSTEMI; AMS; Seizures Interval history: Patient is on the vent, sedated, no new cardiac events reported. Objective Vital Signs Temp Pulse Pulse Resp BP Pulse Ox 03/19/22 10:15 99 H 30 H 98/63 96 03/19/22 10:00 104 H 29 H 106/71 95 03/19/22 09:45 105 H 30 H 107/74 98 03/19/22 09:30 98 H 26 H 105/70 96 03/19/22 09:15 106 H 29 H 104/72 97 03/19/22 09:00 96 H 29 H 108/72 97 03/19/22 08:45 103 H 27 H 101/69 94 03/19/22 08:44 97 H 101/69 97 03/19/22 08:30 98 H 28 H 105/70 98 03/19/22 08:15 98 H 28 H 113/72 99 03/19/22 08:00 97.4 F L 98 H 28 H 107/71 97 03/19/22 07:45 98 H 28 H 101/70 97 03/19/22 07:30 103 H 27 H 109/75 96 03/19/22 07:24 102 H 03/19/22 07:18 100 H 25 H 94 03/19/22 07:15 104 H 27 H 105/70 95 03/19/22 07:00 103 H 27 H 105/70 91 03/19/22 06:46 93 H 29 H 96/66 88 03/19/22 06:30 88 17 92/65 98 03/19/22 06:15 101 H 27 H 96/69 99 03/19/22 06:00 101 H 27 H 103/65 98 03/19/22 05:45 92 H 27 H 104/69 96 03/19/22 05:30 101 H 24 105/71 98 03/19/22 05:15 102 H 28 H 95/71 98 03/19/22 05:00 93 H 28 H 105/70 97 03/19/22 04:45 91 H 26 H 112/71 97 03/19/22 04:30 93 H 25 H 106/71 96 03/19/22 04:15 91 H 24 111/75 100 03/19/22 04:09 93 H 109/72 99 03/19/22 04:00 101 H 93 H 26 H 109/72 98 03/19/22 03:45 99.0 F 100 H 25 H 103/71 97 03/19/22 03:30 90 26 H 101/66 96 03/19/22 03:15 92 H 26 H 114/69 97 03/19/22 03:00 90 26 H 104/71 96 03/19/22 02:45 91 H 26 H 94/70 97 03/19/22 02:30 91 H 26 H 103/64 94 03/19/22 02:15 93 H 26 H 104/68 98 03/19/22 02:00 93 H 27 H 102/67 97 03/19/22 01:45 91 H 28 H 101/68 97 03/19/22 01:30 93 H 26 H 105/70 98 03/19/22 01:15 92 H 29 H 101/66 97 03/19/22 01:00 92 H 26 H 107/69 96 03/19/22 00:45 93 H 26 H 100/68 96 03/19/22 00:30 95 H 26 H 105/68 95 03/19/22 00:15 94 H 26 H 97/70 95 03/19/22 00:00 98.2 F 89 90 34 H 94/70 88 03/18/22 23:45 95 H 28 H 90/66 96 03/18/22 23:30 95 H 29 H 94/68 97 03/18/22 23:15 95 H 28 H 84/63 96 07/03/22 23:10 92 H 96/61 94 03/18/22 23:00 95 H 25 H 86/62 95 03/18/22 22:48 94 H 27 H 97/59 94 03/18/22 22:45 95 H 28 H 96/61 94 03/18/22 22:30 95 H 26 H 97/64 94 03/18/22 22:15 94 H 26 H 111/65 91 03/18/22 22:00 88 33 H 101/72 80 L 03/18/22 21:45 97 H 27 H 96/66 96 03/18/22 21:30 91 H 25 H 97/59 95 03/18/22 21:15 92 H 26 H 93/60 93 03/18/22 21:00 99 H 26 H 98/62 97 03/18/22 20:45 97 H 24 88/60 96 03/18/22 20:31 94 H 97/61 97 03/18/22 20:30 93 H 26 H 97/61 97 03/18/22 20:15 94 H 24 90/59 97 03/18/22 20:00 94 H 95 H 25 H 100/60 98 03/18/22 19:45 96 H 26 H 96/60 97 03/18/22 19:39 99.5 F 03/18/22 19:30 96 H 24 86/56 97 03/18/22 19:15 94 H 25 H 109/58 97 03/18/22 19:00 101 H 25 H 97/57 97 03/18/22 18:45 101 H 25 H 95/57 96 03/18/22 18:30 97 H 28 H 92/57 94 03/18/22 18:15 97 H 27 H 88/56 93 03/18/22 18:00 96 H 29 H 82/58 90 03/18/22 17:45 91 H 27 H 83/56 91 03/18/22 17:30 101 H 31 H 93/60 91 03/18/22 17:15 102 H 27 H 96/63 96 03/18/22 17:00 102 H 25 H 89/62 97 03/18/22 16:45 102 H 28 H 94/63 98 03/18/22 16:31 100.7 F H 03/18/22 16:30 103 H 25 H 96/63 97 03/18/22 16:15 102 H 25 H 92/61 97 03/18/22 16:00 96 H 102 H 26 H 103/62 97 03/18/22 15:45 98 H 24 94/62 96 03/18/22 15:30 102 H 24 94/62 97 03/18/22 15:15 98 H 27 H 90/60 94 03/18/22 15:00 102 H 24 92/63 96 03/18/22 14:45 101 H 24 97/59 95 03/18/22 14:30 95 H 23 95/63 96 03/18/22 14:15 98 H 23 91/60 97 03/18/22 14:00 96 H 23 95/60 96 03/18/22 13:45 102 H 24 97/60 97 03/18/22 13:30 103 H 25 H 93/60 96 03/18/22 13:15 102 H 24 98/60 96 03/18/22 13:00 102 H 24 95/63 96 03/18/22 12:45 98 H 24 95/59 94 03/18/22 12:30 97 H 23 90/59 92 03/18/22 12:15 96 H 25 H 100/59 95 03/18/22 12:00 102 H 99 H 21 92/61 99 03/18/22 11:45 101 H 23 98/61 97 03/18/22 11:40 101 H 95/63 97 03/18/22 11:30 99 H 22 95/63 99 03/18/22 11:15 100 H 24 99/64 99 03/18/22 11:00 100 H 22 95/64 99 03/18/22 10:45 100 H 22 95/61 98 03/18/22 10:30 102 H 22 96/64 97 - Physical Examination General: Other (intubated on mechanical ventilator) HEENT: Positive: PERRL Neck: Positive: neck supple, trachea midline. Negative: JVD/HJR Cardiac: Positive: Reg Rate and Rhythm Lungs: Positive: Decreased Breath Sounds Neuro: Positive: Other (Intubated, sedated on the vent) Abdomen: Positive: Soft Skin: Positive: Clear, Other (multiple wounds) Extremities: Absent: edema - Labs and Meds CBC 03/19/22 Range/Units 08:59 WBC 30.4 H (4.5-11.0) K/mm3 RBC 2.78 L (3.65-5.03) M/mm3 Hgb 7.7 L (10.1-14.3) gm/dl Hct 24.2 L (30.3-42.9) % Plt Count 393 (140-440) K/mm3 Comprehensive Metabolic Panel 03/19/22 Range/Units 08:59 Sodium 132 L (137-145) mmol/L Potassium 5.5 H (3.6-5.0) mmol/L Chloride 98.7 (98-107) mmol/L Carbon Dioxide 19 L (22-30) mmol/L BUN 84 H (7-17) mg/dL Creatinine 0.9 (0.6-1.2) mg/dL Glucose 124 H (65-100) mg/dL Calcium 8.4 (8.4-10.2) mg/dL - Allied health notes Allied health notes reviewed: RT
[2022-03-19] MEDS ORDERED: SODIUM POLYSTYRENE 15 GM/60 ML ORAL LIQD PO NR (11:10)
--- NOTE | 2022-03-19 13:02 | Progress Note ---
Assessment and Plan 1. 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 Sodium level is better / fluctuates. 2. FEN: Anion-gap metabolic acdosis, 2/2 lactic acidosis, restarted on Sod bicarb drip, monitor. Replete lytes as needed. Monitor lytes and volume status. 3. Acute Hypoxemic Respiratory Failure / Multifocal Pneumonia / CAP: Chest X-ray was concerning for multifocal pneumonia. Patient intubated on 03/10 due to tachypnea and worsening MS. 4. Hypotension / NSTEMI: Presented with hypotension. Levophed, wean as tolerated. Followed Cards. IVF. 5. Sepsis: Likley 2/2 Multifocal Pneumonia/CAP. Covid negative. Abx. Monitor. 6. Acute Metabolic Encephalopathy: H/o Seizure Disorder. Now intubated on vent. Keppra. Seizure precautions. 7. Elevated D-Dimer: Per primary. 8. MS with paraplegia: Bedbound status. Supportive care. Subjective: Patient was seen and examined at the bedside. Examination: General appearance: well-developed, appears stated age, no distress, intubated, on vent HEENT: ATNC, pupils equal, no icterus Neck: trachea midline Respiratory: decreased breath sounds bilaterally Cardiology: regular, S1S2, no murmur Gastrointestinal: soft, normoactive bowel sounds, not tender Integumentary: no obvious rash Neurologic: not respponding Ext: 1 to 2+ LE and dependent edema noted : medina catheter Subjective Date of service: 03/19/22 Principal diagnosis: AHRF; Multifocal Pneumonia; Septic shock; NSTEMI; AMS; Seizures Objective - Vital Signs Vital signs: Vital Signs - 12hr 03/19/22 03/19/22 03/19/22 01:15 01:30 01:45 Temperature Pulse Rate 92 H 93 H 91 H Pulse Rate [ Right Radial] Respiratory 29 H 26 H 28 H Rate Respiratory Rate [no pain] Blood Pressure 101/66 105/70 101/68 O2 Sat by Pulse 97 98 97 Oximetry 03/19/22 03/19/22 03/19/22 02:00 02:15 02:30 Temperature Pulse Rate 93 H 93 H 91 H Pulse Rate [ Right Radial] Respiratory 27 H 26 H 26 H Rate Respiratory Rate [no pain] Blood Pressure 102/67 104/68 103/64 O2 Sat by Pulse 97 98 94 Oximetry 03/19/22 03/19/22 03/19/22 02:45 03:00 03:15 Temperature Pulse Rate 91 H 90 92 H Pulse Rate [ Right Radial] Respiratory 26 H 26 H 26 H Rate Respiratory Rate [no pain] Blood Pressure 94/70 104/71 114/69 O2 Sat by Pulse 97 96 97 Oximetry 03/19/22 03/19/22 03/19/22 03:30 03:45 04:00 Temperature 99.0 F Pulse Rate 90 100 H 101 H Pulse Rate [ 93 H Right Radial] Respiratory 26 H 25 H 26 H Rate Respiratory Rate [no pain] Blood Pressure 101/66 103/71 109/72 O2 Sat by Pulse 96 97 98 Oximetry 03/19/22 03/19/22 03/19/22 04:09 04:15 04:30 Temperature Pulse Rate 93 H 91 H 93 H Pulse Rate [ Right Radial] Respiratory 24 25 H Rate Respiratory Rate [no pain] Blood Pressure 109/72 111/75 106/71 O2 Sat by Pulse 99 100 96 Oximetry 03/19/22 03/19/22 03/19/22 04:45 05:00 05:15 Temperature Pulse Rate 91 H 93 H 102 H Pulse Rate [ Right Radial] Respiratory 26 H 28 H 28 H Rate Respiratory Rate [no pain] Blood Pressure 112/71 105/70 95/71 O2 Sat by Pulse 97 97 98 Oximetry 03/19/22 03/19/22 03/19/22 05:30 05:45 06:00 Temperature Pulse Rate 101 H 92 H 101 H Pulse Rate [ Right Radial] Respiratory 24 27 H 27 H Rate Respiratory Rate [no pain] Blood Pressure 105/71 104/69 103/65 O2 Sat by Pulse 98 96 98 Oximetry 03/19/22 03/19/22 03/19/22 06:15 06:30 06:46 Temperature Pulse Rate 101 H 88 93 H Pulse Rate [ Right Radial] Respiratory 27 H 17 29 H Rate Respiratory Rate [no pain] Blood Pressure 96/69 92/65 96/66 O2 Sat by Pulse 99 98 88 Oximetry 03/19/22 03/19/22 03/19/22 07:00 07:15 07:18 Temperature Pulse Rate 103 H 104 H Pulse Rate [ 100 H Right Radial] Respiratory 27 H 27 H 25 H Rate Respiratory Rate [no pain] Blood Pressure 105/70 105/70 O2 Sat by Pulse 91 95 94 Oximetry 03/19/22 03/19/22 03/19/22 07:24 07:30 07:45 Temperature Pulse Rate 102 H 103 H 98 H Pulse Rate [ Right Radial] Respiratory 27 H 28 H Rate Respiratory Rate [no pain] Blood Pressure 109/75 101/70 O2 Sat by Pulse 96 97 Oximetry 03/19/22 03/19/22 03/19/22 08:00 08:15 08:30 Temperature 97.4 F L Pulse Rate 98 H 98 H 98 H Pulse Rate [ Right Radial] Respiratory 28 H 28 H 28 H Rate Respiratory Rate [no pain] Blood Pressure 107/71 113/72 105/70 O2 Sat by Pulse 97 99 98 Oximetry 03/19/22 03/19/22 03/19/22 08:44 08:45 09:00 Temperature Pulse Rate 97 H 103 H 96 H Pulse Rate [ Right Radial] Respiratory 27 H 29 H Rate Respiratory Rate [no pain] Blood Pressure 101/69 101/69 108/72 O2 Sat by Pulse 97 94 97 Oximetry 03/19/22 03/19/22 03/19/22 09:15 09:30 09:45 Temperature Pulse Rate 106 H 98 H 105 H Pulse Rate [ Right Radial] Respiratory 29 H 26 H 30 H Rate Respiratory Rate [no pain] Blood Pressure 104/72 105/70 107/74 O2 Sat by Pulse 97 96 98 Oximetry 03/19/22 03/19/22 03/19/22 10:00 10:15 10:30 Temperature Pulse Rate 104 H 99 H 99 H Pulse Rate [ Right Radial] Respiratory 29 H 30 H 29 H Rate Respiratory 21 Rate [no pain] Blood Pressure 106/71 98/63 99/67 O2 Sat by Pulse 95 96 97 Oximetry 03/19/22 03/19/22 03/19/22 10:45 11:00 12:38 Temperature Pulse Rate 100 H 98 H 98 H Pulse Rate [ Right Radial] Respiratory 28 H 29 H Rate Respiratory Rate [no pain] Blood Pressure 102/70 102/69 102/69 O2 Sat by Pulse 98 98 97 Oximetry - Lab 03/19/22 08:59 03/19/22 08:59 Most recent lab results ABG pH 7.341 pH Units (7.350-7.450) L 03/19/22 05:15 ABG pCO2 39.3 mm Hg 03/19/22 05:15 ABG pO2 78.1 mm Hg (80.0-90.0) L 03/19/22 05:15 ABG HCO3 20.8 mmol/L (20.0-26.0) 03/19/22 05:15 ABG O2 Saturation 97.2 % (95.0-99.0) 03/19/22 05:15 Calcium 8.4 mg/dL (8.4-10.2) 03/19/22 08:59 Phosphorus 3.70 mg/dL (2.5-4.5) 03/18/22 05:20 Magnesium 2.00 mg/dL (1.7-2.3) 03/18/22 05:20 Urine Sodium 64 mmol/L 03/10/22 18:20 Medications & Allergies - Medications Allergies/Adverse Reactions: Allergies Penicillins Allergy (Mild, Verified 01/11/19 12:20) Rash . Home Medications: Home Medications Medication Instructions Recorded Confirmed Last Taken Type Ciprofloxacin HCl [Ciprofloxacin 500 mg PO Q12H #14 tab 01/11/19 Unknown Rx TAB] levETIRAcetam [Keppra TAB] 500 mg PO BID #60 tablet 01/11/19 Unknown Rx Active Medications: Generic Name Dose Route Start Last Admin Trade Name Freq PRN Reason Stop Dose Admin Acetaminophen 650 mg 03/13/22 05:50 03/18/22 16:36 Acetaminophen 325 Mg/10.15 Ml Oral Liqd Unit Dose FEEDTUBE 650 mg Q6H PRN Administration Non Cardiac Pain or Temp>100.5 Bisacodyl 10 mg 03/15/22 10:00 Bisacodyl 5 Mg Tab PO QDAY PRN Constipation Enoxaparin Sodium 40 mg 03/12/22 10:00 03/19/22 09:54 Enoxaparin 40 Mg/0.4 Ml Inj SUB-Q 40 mg QDAY@1000 SHAHBAZ Administration Protocol Famotidine 20 mg 03/12/22 10:00 03/19/22 09:54 Famotidine 20 Mg Tab FEEDTUBE 20 mg BID SHAHBAZ Administration Fentanyl 50 mcg 03/10/22 10:58 03/14/22 20:48 Fentanyl 100 Mcg/2 Ml Inj IV 50 mcg Q10MIN PRN Administration ANALGESIA Hydrophilic Ointment 1 applic 03/10/22 11:03 Lip Therapy Vaseline TP Q2HR PRN Dry Lips Fentanyl Citrate 2,000 mcg in 100 mls @ 4.16 mls/hr 03/10/22 11:00 03/19/22 09:52 Fentanyl Drip Premix IV 2 mcg/kg/hr TITR SHAHBAZ 8.32 mls/hr Administration Protocol 1 MCG/KG/HR NORepinephrine/NS 8 MG-250 ML 8 mg in 250 mls @ 3.75 mls/hr 03/10/22 11:00 03/19/22 10:00 Norepinephrine/Ns 8 Mg-250 Ml (Double Conc) IV 3 mcg/min TITRATE SHAHBAZ 5.625 mls/hr Titration Protocol 2 MCG/MIN Meropenem/Sodium Chloride 1 gram in 100 mls @ 100 mls/hr 03/14/22 22:00 03/19/22 06:55 Merrem/Ns 1 Gram/100 Ml IV 100 mls/hr Q8H SHAHBAZ Administration Protocol Levetiracetam 500 mg 03/12/22 10:00 03/19/22 09:54 Levetiracetam 500 Mg/5 Ml Oral Liqd FEEDTUBE 500 mg BID SHAHBAZ Administration Magnesium Hydroxide 30 ml 03/10/22 02:56 Magnesium Hydroxide (Mom) Oral Liqd Udc PO Q4H PRN Constipation Multi-Ingred Cream/Lotion/Oil/Oint 1 applic 03/10/22 11:03 Mineral Oil/Petrolatum, White Ophth Oint 3.5 Gm OU Q4HR PRN Dry Eye(s) Ondansetron HCl 4 mg 03/10/22 02:56 Ondansetron 4 Mg/2 Ml Inj IV Q8H PRN Nausea And Vomiting Polyethylene Glycol 17 gm 03/12/22 10:00 03/19/22 09:55 Polyethylene Glycol 3350 17 Gm Powder FEEDTUBE Not Given QDAY SHAHBAZ Scopolamine 1 each 03/21/22 10:00 Scopolamine Transdermal Patch 72 Hr TD Q3D SHAHBAZ Senna/Docusate Sodium 2 tab 03/14/22 10:00 03/19/22 09:55 Sennosides/Docusate Sodium 8.6/50 Mg Tab FEEDTUBE Not Given Q12H SHAHBAZ Sodium Chloride 10 ml 03/10/22 10:00 03/19/22 09:54 Sodium Chloride 0.9% 10 Ml Flush Syringe IV 10 ml BID SHAHBAZ Administration Sodium Chloride 10 ml 03/10/22 02:56 Sodium Chloride 0.9% 10 Ml Flush Syringe IV PRN PRN LINE FLUSH Sodium Polystyrene Sulfonate 30 gm 03/19/22 11:10 Sodium Polystyrene 15 Gm/60 Ml Oral Liqd PO 03/19/22 13:00 ONCE NR
[2022-03-19] MEDS ORDERED: SODIUM POLYSTYRENE 15 GM/60 ML ORAL LIQD PO ONE (14:00)
--- NOTE | 2022-03-19 14:07 | Progress Note ---
Assessment and Plan Acute Hypoxemic Respiratory Failure on MVS Multifocal Pneumonia/CAP Severe Hyponatremia Septic shock Lactic Acidosis NSTEMI/Elevated Troponin Elevated BNP Hypokalemia R/o COVID Acute Metabolic Encephalopathy H/o Seizure Disorder Elevated D-Dimer Moderate Protein Calorie Malnutrition - increased FiO2 to 65% - keep peep at 14 (PIP's 30 cm H2O) - get venous ABG fron RIJ in lieu of SvO2 - gentle hydration re: azotemia (D5W + 3 amps NaHCO3/L @ 75/hr X 2 liters) - get Urine lytes for FENA - continue scopolamine patch - Kayexalate ordered for hyperkalemia - wean vasopressor support to keep MAP>65 - continue care as below otherwise; - ARDS net ventilatory strategies - continue Meropenem; de-escalate per ID recommendations - Daily SAT and SBT assessment as tolerated - continue to wean supplemental oxygen for target O2 sat's > 90% acutely - VAP bundle addressed - continue lung protective strategies - continue bronchodilators with pulmonary hygiene per RT - wean per pulmonary driven protocols otherwise - continue accuchecks with glycemic control per SSI (While critically ill target blood glucose of 140-180 mg/dL; avoid hypoglycemia) - sedation prn for target RASS 0 to -1 - avoid nephrotoxins, renally dose all medications - continue to avoid benzodiazepine's, reduce the possibility of delirium - complete AB's per ID rec's - prn analgesia per CPOT score - Maintenance of sleep-wake cycle, avoid delirium - continue enteral nutritional support at goal rate as tolerated - G.I. & VTE prophylaxis - PT/OT/ROM exercises - continue mobility protocols for pressure ulcer prophylaxis - Monitor hemodynamics closely - continue other care per attending / other consultants - discharge planning ongoing concurrently COVID SPECIFIC INTERVENTIONS - COVID-19 PCR negative .... Re-evaluate in am & prn CONDITION: CRITICAL PROGNOSIS: GUARDED CODE STATUS: FULL CODE The high probability of a clinically significant, sudden or life-threatening deterioration of the [respiratory, cardiovascular & neurologic] system(s) required my full and direct attention, intervention and personal management. The aggregate critical care time was [36] minutes without overlap. Time includes spent on; [x] Data Review and interpretation [x] Patient assessment and monitoring of vital signs [x] Documentation [x] Medication orders and management Subjective Date of service: 03/19/22 Principal diagnosis: AHRF; Multifocal Pneumonia; Septic shock; NSTEMI; AMS; Seizures Interval history: Patient is seen today for: Acute Hypoxemic Respiratory Failure; Multifocal Pneumonia/CAP; Hyponatremia; Septic shock; NSTEMI; AMS; Seizure Disorder; Moderate Protein Calorie Malnutrition Seen and examined at bedside; 24hour events reviewed; nursing and respiratory care staff consulted; no adverse overnight events reported to me; resting peacefully in bed; remains on MVS; still with ARDS; hyperkalemia today; no emesis or overt aspiration; tolerating tube feeds; making some urine; no gross bleeding Objective Vital Signs - 12hr 03/19/22 03/19/22 03/19/22 02:15 02:30 02:45 Temperature Pulse Rate 93 H 91 H 91 H Pulse Rate [ Right Radial] Respiratory 26 H 26 H 26 H Rate Respiratory Rate [no pain] Blood Pressure 104/68 103/64 94/70 O2 Sat by Pulse 98 94 97 Oximetry 03/19/22 03/19/22 03/19/22 03:00 03:15 03:30 Temperature Pulse Rate 90 92 H 90 Pulse Rate [ Right Radial] Respiratory 26 H 26 H 26 H Rate Respiratory Rate [no pain] Blood Pressure 104/71 114/69 101/66 O2 Sat by Pulse 96 97 96 Oximetry 03/19/22 03/19/22 03/19/22 03:45 04:00 04:09 Temperature 99.0 F Pulse Rate 100 H 101 H 93 H Pulse Rate [ 93 H Right Radial] Respiratory 25 H 26 H Rate Respiratory Rate [no pain] Blood Pressure 103/71 109/72 109/72 O2 Sat by Pulse 97 98 99 Oximetry 03/19/22 03/19/22 03/19/22 04:15 04:30 04:45 Temperature Pulse Rate 91 H 93 H 91 H Pulse Rate [ Right Radial] Respiratory 24 25 H 26 H Rate Respiratory Rate [no pain] Blood Pressure 111/75 106/71 112/71 O2 Sat by Pulse 100 96 97 Oximetry 03/19/22 03/19/22 03/19/22 05:00 05:15 05:30 Temperature Pulse Rate 93 H 102 H 101 H Pulse Rate [ Right Radial] Respiratory 28 H 28 H 24 Rate Respiratory Rate [no pain] Blood Pressure 105/70 95/71 105/71 O2 Sat by Pulse 97 98 98 Oximetry 03/19/22 03/19/22 03/19/22 05:45 06:00 06:15 Temperature Pulse Rate 92 H 101 H 101 H Pulse Rate [ Right Radial] Respiratory 27 H 27 H 27 H Rate Respiratory Rate [no pain] Blood Pressure 104/69 103/65 96/69 O2 Sat by Pulse 96 98 99 Oximetry 03/19/22 03/19/22 03/19/22 06:30 06:46 07:00 Temperature Pulse Rate 88 93 H 103 H Pulse Rate [ Right Radial] Respiratory 17 29 H 27 H Rate Respiratory Rate [no pain] Blood Pressure 92/65 96/66 105/70 O2 Sat by Pulse 98 88 91 Oximetry 03/19/22 03/19/22 03/19/22 07:15 07:18 07:24 Temperature Pulse Rate 104 H 102 H Pulse Rate [ 100 H Right Radial] Respiratory 27 H 25 H Rate Respiratory Rate [no pain] Blood Pressure 105/70 O2 Sat by Pulse 95 94 Oximetry 03/19/22 03/19/22 03/19/22 07:30 07:45 08:00 Temperature 97.4 F L Pulse Rate 103 H 98 H 98 H Pulse Rate [ Right Radial] Respiratory 27 H 28 H 28 H Rate Respiratory Rate [no pain] Blood Pressure 109/75 101/70 107/71 O2 Sat by Pulse 96 97 97 Oximetry 03/19/22 03/19/22 03/19/22 08:15 08:30 08:44 Temperature Pulse Rate 98 H 98 H 97 H Pulse Rate [ Right Radial] Respiratory 28 H 28 H Rate Respiratory Rate [no pain] Blood Pressure 113/72 105/70 101/69 O2 Sat by Pulse 99 98 97 Oximetry 03/19/22 03/19/22 03/19/22 08:45 09:00 09:15 Temperature Pulse Rate 103 H 96 H 106 H Pulse Rate [ Right Radial] Respiratory 27 H 29 H 29 H Rate Respiratory Rate [no pain] Blood Pressure 101/69 108/72 104/72 O2 Sat by Pulse 94 97 97 Oximetry 03/19/22 03/19/22 03/19/22 09:30 09:45 10:00 Temperature Pulse Rate 98 H 105 H 104 H Pulse Rate [ Right Radial] Respiratory 26 H 30 H 29 H Rate Respiratory 21 Rate [no pain] Blood Pressure 105/70 107/74 106/71 O2 Sat by Pulse 96 98 95 Oximetry 03/19/22 03/19/2222 10:15 10:30 10:45 Temperature Pulse Rate 99 H 99 H 100 H Pulse Rate [ Right Radial] Respiratory 30 H 29 H 28 H Rate Respiratory Rate [no pain] Blood Pressure 98/63 99/67 102/70 O2 Sat by Pulse 96 97 98 Oximetry 03/19/22 03/19/22 03/19/22 11:00 11:15 11:30 Temperature Pulse Rate 98 H 99 H 98 H Pulse Rate [ Right Radial] Respiratory 29 H 29 H 29 H Rate Respiratory Rate [no pain] Blood Pressure 102/69 99/72 98/68 O2 Sat by Pulse 98 98 97 Oximetry 03/19/22 03/19/22 03/19/22 11:45 12:00 12:15 Temperature Pulse Rate 96 H 94 H 94 H Pulse Rate [ Right Radial] Respiratory 31 H 26 H 28 H Rate Respiratory Rate [no pain] Blood Pressure 102/66 90/57 97/58 O2 Sat by Pulse 98 95 96 Oximetry 03/19/22 03/19/22 03/19/22 12:30 12:38 12:45 Temperature Pulse Rate 88 98 H 101 H Pulse Rate [ Right Radial] Respiratory 28 H 24 Rate Respiratory Rate [no pain] Blood Pressure 92/57 102/69 89/63 O2 Sat by Pulse 95 97 92 Oximetry 03/19/22 03/19/22 03/19/22 13:00 13:15 13:30 Temperature Pulse Rate 92 H 100 H 100 H Pulse Rate [ Right Radial] Respiratory 25 H 28 H 30 H Rate Respiratory Rate [no pain] Blood Pressure 95/60 94/61 104/64 O2 Sat by Pulse 92 93 90 Oximetry Constitutional: no acute distress, alert, other (middle aged female with anasarca and mild dyssynchrony on MVS) Eyes: non-icteric ENT: oropharynx moist, other (ETT 24 cm BLANCA) Neck: supple, no lymphadenopathy, no JVD Effort: mildly labored Ascultation: Bilateral: rales Percussion: Bilateral: not dull Cardiovascular: regular rate and rhythm Gastrointestinal: normoactive bowel sounds, soft, non-tender, non-distended Integumentary: normal Extremities: no cyanosis, pulses normal, no ischemia or petechiae, edema (2+ and anasarca ) Neurologic: pupils equal and round, unable to assess, other (weak) Psychiatric: other (unable to assess re: AMS) CBC and BMP: 03/19/22 08:59 03/19/22 08:59 ABG, PT/INR, D-dimer: ABG ABG pH 7.341 pH Units (7.350-7.450) L 03/19/22 05:15 ABG pCO2 39.3 mm Hg 03/19/22 05:15 ABG pO2 78.1 mm Hg (80.0-90.0) L 03/19/22 05:15 ABG O2 Saturation 97.2 % (95.0-99.0) 03/19/22 05:15 PT/INR, D-dimer PT 14.9 Sec. (12.2-14.9) 03/10/22 01:25 INR 1.03 (0.87-1.13) 03/10/22 01:25 D-Dimer 787.78 ng/mlDDU (0-234) H 03/10/22 05:45 Abnormal lab findings: Abnormal Labs 03/10/22 03/10/22 03/10/22 01:19 01:25 01:25 WBC RBC Hgb Hct MCH RDW 15.4 H Lymph % (Auto) 12.4 L Lymph # (Auto) 1.1 L Seg Neutrophils % 85.9 H Seg Neuts % (Manual) Lymphocytes % (Manual) Seg Neutrophils # Seg Neutrophils # Man Lymphocytes # (Manual) Monocytes # (Manual) Eosinophils # (Manual) D-Dimer ABG pH ABG pO2 59.3 L ABG HCO3 16.7 L ABG O2 Saturation 92.3 L ABG Base Excess -7.8 L ABG Hemoglobin 11.4 L Oxyhemoglobin 90.8 L Sodium 119 L* Potassium 3.1 L Chloride 88.1 L Carbon Dioxide 16 L BUN Creatinine 0.3 L Glucose 146 H POC Glucose Lactic Acid Uric Acid Calcium 8.2 L Phosphorus Magnesium 1.30 L Ferritin ALT 5 L Lactate Dehydrogenase Total Creatine Kinase CK-MB (CK-2) Troponin T NT-Pro-B Natriuret Pep Total Protein 5.4 L Albumin 3.6 L Prealbumin Cholesterol LDL Cholesterol Direct HDL Cholesterol Vitamin B12 Folate Urine WBC (Auto) Crossmatch 03/10/22 03/10/22 03/10/22 01:25 01:25 01:25 WBC RBC Hgb Hct MCH RDW Lymph % (Auto) Lymph # (Auto) Seg Neutrophils % Seg Neuts % (Manual) Lymphocytes % (Manual) Seg Neutrophils # Seg Neutrophils # Man Lymphocytes # (Manual) Monocytes # (Manual) Eosinophils # (Manual) D-Dimer ABG pH ABG pO2 ABG HCO3 ABG O2 Saturation ABG Base Excess ABG Hemoglobin Oxyhemoglobin Sodium Potassium Chloride Carbon Dioxide BUN Creatinine Glucose POC Glucose Lactic Acid 3.60 H* Uric Acid Calcium Phosphorus Magnesium Ferritin ALT Lactate Dehydrogenase Total Creatine Kinase CK-MB (CK-2) 4.6 H Troponin T 0.164 H* NT-Pro-B Natriuret Pep 61937 H Total Protein Albumin Prealbumin Cholesterol 259 H LDL Cholesterol Direct 187 H HDL Cholesterol 63 H Vitamin B12 Folate Urine WBC (Auto) Crossmatch 03/10/22 03/10/22 03/10/22 02:43 05:45 05:45 WBC RBC Hgb Hct MCH RDW Lymph % (Auto) Lymph # (Auto) Seg Neutrophils % Seg Neuts % (Manual) Lymphocytes % (Manual) Seg Neutrophils # Seg Neutrophils # Man Lymphocytes # (Manual) Monocytes # (Manual) Eosinophils # (Manual) D-Dimer 787.78 H ABG pH ABG pO2 ABG HCO3 ABG O2 Saturation ABG Base Excess ABG Hemoglobin Oxyhemoglobin Sodium Potassium Chloride Carbon Dioxide BUN Creatinine Glucose POC Glucose Lactic Acid 3.70 H* 3.10 H* Uric Acid Calcium Phosphorus Magnesium Ferritin ALT Lactate Dehydrogenase Total Creatine Kinase CK-MB (CK-2) Troponin T NT-Pro-B Natriuret Pep Total Protein Albumin Prealbumin Cholesterol LDL Cholesterol Direct HDL Cholesterol Vitamin B12 Folate Urine WBC (Auto) Crossmatch 03/10/22 03/10/22 03/10/22 05:45 05:45 12:24 WBC RBC Hgb Hct MCH RDW Lymph % (Auto) Lymph # (Auto) Seg Neutrophils % Seg Neuts % (Manual) Lymphocytes % (Manual) Seg Neutrophils # Seg Neutrophils # Man Lymphocytes # (Manual) Monocytes # (Manual) Eosinophils # (Manual) D-Dimer ABG pH ABG pO2 ABG HCO3 ABG O2 Saturation ABG Base Excess ABG Hemoglobin Oxyhemoglobin Sodium 124 L Potassium 3.3 L Chloride Carbon Dioxide 11 L BUN Creatinine 0.2 L Glucose POC Glucose Lactic Acid Uric Acid Calcium 6.9 L D Phosphorus Magnesium Ferritin 219.2 H ALT Lactate Dehydrogenase 210 H Total Creatine Kinase CK-MB (CK-2) Troponin T NT-Pro-B Natriuret Pep Total Protein Albumin Prealbumin Cholesterol LDL Cholesterol Direct HDL Cholesterol Vitamin B12 Folate Urine WBC (Auto) Crossmatch 03/10/22 03/10/22 03/10/22 12:24 12:24 12:24 WBC RBC Hgb Hct MCH RDW Lymph % (Auto) Lymph # (Auto) Seg Neutrophils % Seg Neuts % (Manual) Lymphocytes % (Manual) Seg Neutrophils # Seg Neutrophils # Man Lymphocytes # (Manual) Monocytes # (Manual) Eosinophils # (Manual) D-Dimer ABG pH ABG pO2 ABG HCO3 ABG O2 Saturation ABG Base Excess ABG Hemoglobin Oxyhemoglobin Sodium 128 L Potassium Chloride Carbon Dioxide BUN Creatinine Glucose POC Glucose Lactic Acid 2.70 H* Uric Acid Calcium Phosphorus Magnesium Ferritin ALT Lactate Dehydrogenase Total Creatine Kinase 901 H CK-MB (CK-2) 15.3 H Troponin T 0.032 H D NT-Pro-B Natriuret Pep Total Protein Albumin Prealbumin Cholesterol LDL Cholesterol Direct HDL Cholesterol Vitamin B12 Folate Urine WBC (Auto) Crossmatch 03/10/22 03/10/22 03/10/22 12:45 13:15 18:00 WBC RBC Hgb Hct MCH RDW Lymph % (Auto) Lymph # (Auto) Seg Neutrophils % Seg Neuts % (Manual) Lymphocytes % (Manual) Seg Neutrophils # Seg Neutrophils # Man Lymphocytes # (Manual) Monocytes # (Manual) Eosinophils # (Manual) D-Dimer ABG pH 7.315 L ABG pO2 70.1 L ABG HCO3 15.6 L ABG O2 Saturation 93.8 L ABG Base Excess -9.5 L ABG Hemoglobin 11.0 L Oxyhemoglobin 92.4 L Sodium 129 L Potassium Chloride Carbon Dioxide 17 L BUN Creatinine 0.2 L Glucose POC Glucose Lactic Acid Uric Acid 1.6 L Calcium 7.0 L Phosphorus Magnesium Ferritin ALT Lactate Dehydrogenase Total Creatine Kinase CK-MB (CK-2) Troponin T NT-Pro-B Natriuret Pep Total Protein Albumin Prealbumin Cholesterol LDL Cholesterol Direct HDL Cholesterol Vitamin B12 Folate Urine WBC (Auto) Crossmatch 03/10/22 03/10/22 03/11/22 18:20 21:05 05:00 WBC 13.7 H RBC 3.44 L Hgb 9.6 L Hct 29.0 L D MCH RDW Lymph % (Auto) 8.9 L Lymph # (Auto) Seg Neutrophils % 86.6 H Seg Neuts % (Manual) Lymphocytes % (Manual) Seg Neutrophils # 11.8 H Seg Neutrophils # Man Lymphocytes # (Manual) Monocytes # (Manual) Eosinophils # (Manual) D-Dimer ABG pH ABG pO2 116.3 H ABG HCO3 17.2 L ABG O2 Saturation ABG Base Excess -6.4 L ABG Hemoglobin 11.0 L Oxyhemoglobin Sodium Potassium Chloride Carbon Dioxide BUN Creatinine Glucose POC Glucose Lactic Acid Uric Acid Calcium Phosphorus Magnesium Ferritin ALT Lactate Dehydrogenase Total Creatine Kinase CK-MB (CK-2) Troponin T NT-Pro-B Natriuret Pep Total Protein Albumin Prealbumin Cholesterol LDL Cholesterol Direct HDL Cholesterol Vitamin B12 Folate Urine WBC (Auto) 105.0 H Crossmatch 03/11/22 03/11/22 03/12/22 05:00 Unknown 04:10 WBC RBC Hgb Hct MCH RDW Lymph % (Auto) Lymph # (Auto) Seg Neutrophils % Seg Neuts % (Manual) Lymphocytes % (Manual) Seg Neutrophils # Seg Neutrophils # Man Lymphocytes # (Manual) Monocytes # (Manual) Eosinophils # (Manual) D-Dimer ABG pH 7.472 H 7.482 H ABG pO2 65.5 L ABG HCO3 19.8 L ABG O2 Saturation ABG Base Excess -2.9 L ABG Hemoglobin 10.1 L 8.4 L Oxyhemoglobin Sodium 132 L Potassium Chloride Carbon Dioxide 20 L BUN 6 L Creatinine 0.2 L Glucose POC Glucose Lactic Acid Uric Acid Calcium 7.5 L Phosphorus Magnesium Ferritin ALT Lactate Dehydrogenase Total Creatine Kinase CK-MB (CK-2) Troponin T NT-Pro-B Natriuret Pep Total Protein Albumin Prealbumin Cholesterol LDL Cholesterol Direct HDL Cholesterol Vitamin B12 Folate Urine WBC (Auto) Crossmatch 03/12/22 03/12/22 03/12/22 04:20 04:20 12:25 WBC 13.6 H RBC 3.11 L Hgb 8.7 L Hct 26.1 L MCH RDW Lymph % (Auto) Lymph # (Auto) Seg Neutrophils % Seg Neuts % (Manual) Lymphocytes % (Manual) Seg Neutrophils # Seg Neutrophils # Man Lymphocytes # (Manual) Monocytes # (Manual) Eosinophils # (Manual) D-Dimer ABG pH ABG pO2 ABG HCO3 ABG O2 Saturation ABG Base Excess ABG Hemoglobin Oxyhemoglobin Sodium 128 L Potassium 3.2 L Chloride 93.9 L Carbon Dioxide BUN 4 L Creatinine 0.2 L Glucose 103 H POC Glucose 116 H Lactic Acid Uric Acid Calcium 7.4 L Phosphorus 1.10 L Magnesium 2.40 H Ferritin ALT Lactate Dehydrogenase Total Creatine Kinase CK-MB (CK-2) Troponin T NT-Pro-B Natriuret Pep Total Protein Albumin Prealbumin Cholesterol LDL Cholesterol Direct HDL Cholesterol Vitamin B12 Folate Urine WBC (Auto) Crossmatch 03/12/22 03/12/22 03/12/22 18:40 18:40 18:40 WBC RBC Hgb Hct MCH RDW Lymph % (Auto) Lymph # (Auto) Seg Neutrophils % Seg Neuts % (Manual) Lymphocytes % (Manual) Seg Neutrophils # Seg Neutrophils # Man Lymphocytes # (Manual) Monocytes # (Manual) Eosinophils # (Manual) D-Dimer ABG pH ABG pO2 ABG HCO3 ABG O2 Saturation ABG Base Excess ABG Hemoglobin Oxyhemoglobin Sodium Potassium Chloride Carbon Dioxide BUN Creatinine Glucose POC Glucose Lactic Acid Uric Acid Calcium Phosphorus Magnesium Ferritin ALT Lactate Dehydrogenase Total Creatine Kinase CK-MB (CK-2) Troponin T NT-Pro-B Natriuret Pep Total Protein Albumin Prealbumin 0.044 L Cholesterol LDL Cholesterol Direct HDL Cholesterol Vitamin B12 1021 H Folate 2.15 L Urine WBC (Auto) Crossmatch 03/13/22 03/13/22 03/13/22 04:10 08:00 09:50 WBC 15.0 H RBC 2.82 L Hgb 8.0 L Hct 23.9 L MCH RDW 15.5 H Lymph % (Auto) Lymph # (Auto) Seg Neutrophils % Seg Neuts % (Manual) Lymphocytes % (Manual) Seg Neutrophils # Seg Neutrophils # Man Lymphocytes # (Manual) Monocytes # (Manual) Eosinophils # (Manual) D-Dimer ABG pH ABG pO2 98.6 H ABG HCO3 ABG O2 Saturation ABG Base Excess ABG Hemoglobin 8.3 L Oxyhemoglobin Sodium 130 L Potassium Chloride 96.1 L Carbon Dioxide BUN Creatinine 0.4 L D Glucose 148 H POC Glucose Lactic Acid Uric Acid Calcium 7.3 L Phosphorus Magnesium Ferritin ALT Lactate Dehydrogenase Total Creatine Kinase CK-MB (CK-2) Troponin T NT-Pro-B Natriuret Pep Total Protein Albumin Prealbumin Cholesterol LDL Cholesterol Direct HDL Cholesterol Vitamin B12 Folate Urine WBC (Auto) Crossmatch 0603/13/22 03/14/22 20:15 22:59 04:54 WBC 17.0 H RBC 2.79 L Hgb 7.8 L Hct 23.6 L MCH RDW 15.6 H Lymph % (Auto) Lymph # (Auto) Seg Neutrophils % Seg Neuts % (Manual) Lymphocytes % (Manual) Seg Neutrophils # Seg Neutrophils # Man Lymphocytes # (Manual) Monocytes # (Manual) Eosinophils # (Manual) D-Dimer ABG pH ABG pO2 ABG HCO3 ABG O2 Saturation ABG Base Excess -2.9 L ABG Hemoglobin 8.0 L Oxyhemoglobin Sodium Potassium Chloride Carbon Dioxide BUN Creatinine Glucose POC Glucose 127 H Lactic Acid Uric Acid Calcium Phosphorus Magnesium Ferritin ALT Lactate Dehydrogenase Total Creatine Kinase CK-MB (CK-2) Troponin T NT-Pro-B Natriuret Pep Total Protein Albumin Prealbumin Cholesterol LDL Cholesterol Direct HDL Cholesterol Vitamin B12 Folate Urine WBC (Auto) Crossmatch 03/14/22 03/14/22 03/14/22 04:54 16:15 22:59 WBC RBC Hgb Hct MCH RDW Lymph % (Auto) Lymph # (Auto) Seg Neutrophils % Seg Neuts % (Manual) Lymphocytes % (Manual) Seg Neutrophils # Seg Neutrophils # Man Lymphocytes # (Manual) Monocytes # (Manual) Eosinophils # (Manual) D-Dimer ABG pH ABG pO2 ABG HCO3 ABG O2 Saturation ABG Base Excess ABG Hemoglobin Oxyhemoglobin Sodium 129 L 128 L Potassium 3.5 L Chloride 97.1 L 97.0 L Carbon Dioxide BUN 24 H 31 H Creatinine 0.5 L Glucose 125 H 114 H POC Glucose 134 H Lactic Acid Uric Acid Calcium 7.0 L 7.0 L Phosphorus Magnesium Ferritin ALT Lactate Dehydrogenase Total Creatine Kinase CK-MB (CK-2) Troponin T NT-Pro-B Natriuret Pep Total Protein Albumin Prealbumin Cholesterol LDL Cholesterol Direct HDL Cholesterol Vitamin B12 Folate Urine WBC (Auto) Crossmatch 03/15/22 03/15/22 03/15/22 04:10 04:10 05:02 WBC 12.9 H RBC 2.55 L Hgb 7.1 L Hct 21.5 L MCH RDW 15.8 H Lymph % (Auto) Lymph # (Auto) Seg Neutrophils % Seg Neuts % (Manual) 88.0 H Lymphocytes % (Manual) 5.0 L Seg Neutrophils # Seg Neutrophils # Man 11.4 H Lymphocytes # (Manual) 0.6 L Monocytes # (Manual) Eosinophils # (Manual) 0.5 H D-Dimer ABG pH ABG pO2 ABG HCO3 ABG O2 Saturation ABG Base Excess ABG Hemoglobin Oxyhemoglobin Sodium 127 L Potassium Chloride 96.3 L Carbon Dioxide 21 L BUN 33 H Creatinine Glucose 126 H POC Glucose 116 H Lactic Acid Uric Acid Calcium 7.4 L Phosphorus 1.20 L Magnesium Ferritin ALT Lactate Dehydrogenase Total Creatine Kinase CK-MB (CK-2) Troponin T NT-Pro-B Natriuret Pep Total Protein 5.3 L Albumin 2.1 L Prealbumin Cholesterol LDL Cholesterol Direct HDL Cholesterol Vitamin B12 Folate Urine WBC (Auto) Crossmatch 03/15/22 03/15/22 03/15/22 05:55 09:42 11:34 WBC RBC Hgb Hct MCH RDW Lymph % (Auto) Lymph # (Auto) Seg Neutrophils % Seg Neuts % (Manual) Lymphocytes % (Manual) Seg Neutrophils # Seg Neutrophils # Man Lymphocytes # (Manual) Monocytes # (Manual) Eosinophils # (Manual) D-Dimer ABG pH ABG pO2 119.0 H ABG HCO3 ABG O2 Saturation ABG Base Excess -3.1 L ABG Hemoglobin 8.2 L Oxyhemoglobin Sodium Potassium Chloride Carbon Dioxide BUN Creatinine Glucose POC Glucose 125 H Lactic Acid Uric Acid Calcium Phosphorus Magnesium Ferritin ALT Lactate Dehydrogenase Total Creatine Kinase CK-MB (CK-2) Troponin T NT-Pro-B Natriuret Pep Total Protein Albumin Prealbumin Cholesterol LDL Cholesterol Direct HDL Cholesterol Vitamin B12 Folate Urine WBC (Auto) Crossmatch See Detail 03/15/22 03/16/22 03/16/22 20:55 04:50 04:50 WBC 16.9 H RBC 2.53 L Hgb 7.1 L Hct 21.5 L MCH RDW 16.0 H Lymph % (Auto) Lymph # (Auto) Seg Neutrophils % Seg Neuts % (Manual) Lymphocytes % (Manual) Seg Neutrophils # Seg Neutrophils # Man Lymphocytes # (Manual) Monocytes # (Manual) Eosinophils # (Manual) D-Dimer ABG pH 7.320 L ABG pO2 122.8 H ABG HCO3 ABG O2 Saturation ABG Base Excess -4.1 L ABG Hemoglobin 7.0 L Oxyhemoglobin Sodium 132 L Potassium Chloride Carbon Dioxide 20 L BUN 44 H Creatinine Glucose 123 H POC Glucose Lactic Acid Uric Acid Calcium 7.6 L Phosphorus Magnesium Ferritin ALT Lactate Dehydrogenase Total Creatine Kinase CK-MB (CK-2) Troponin T NT-Pro-B Natriuret Pep Total Protein Albumin Prealbumin Cholesterol LDL Cholesterol Direct HDL Cholesterol Vitamin B12 Folate Urine WBC (Auto) Crossmatch 03/16/22 03/16/22 03/16/22 05:42 11:32 23:05 WBC RBC Hgb Hct MCH RDW Lymph % (Auto) Lymph # (Auto) Seg Neutrophils % Seg Neuts % (Manual) Lymphocytes % (Manual) Seg Neutrophils # Seg Neutrophils # Man Lymphocytes # (Manual) Monocytes # (Manual) Eosinophils # (Manual) D-Dimer ABG pH ABG pO2 ABG HCO3 ABG O2 Saturation ABG Base Excess ABG Hemoglobin Oxyhemoglobin Sodium Potassium Chloride Carbon Dioxide BUN Creatinine Glucose POC Glucose 113 H 118 H 114 H Lactic Acid Uric Acid Calcium Phosphorus Magnesium Ferritin ALT Lactate Dehydrogenase Total Creatine Kinase CK-MB (CK-2) Troponin T NT-Pro-B Natriuret Pep Total Protein Albumin Prealbumin Cholesterol LDL Cholesterol Direct HDL Cholesterol Vitamin B12 Folate Urine WBC (Auto) Crossmatch 03/17/22 03/17/22 03/17/22 04:00 04:00 05:00 WBC 19.1 H RBC 2.44 L Hgb 6.6 L Hct 20.6 L MCH 27 L RDW 16.4 H Lymph % (Auto) Lymph # (Auto) Seg Neutrophils % Seg Neuts % (Manual) 78.0 H Lymphocytes % (Manual) 2.0 L Seg Neutrophils # Seg Neutrophils # Man 14.9 H Lymphocytes # (Manual) 0.4 L Monocytes # (Manual) 1.3 H Eosinophils # (Manual) 0.6 H D-Dimer ABG pH 7.334 L ABG pO2 132.4 H ABG HCO3 ABG O2 Saturation ABG Base Excess -2.7 L ABG Hemoglobin 9.1 L Oxyhemoglobin Sodium 134 L Potassium Chloride Carbon Dioxide BUN 55 H Creatinine Glucose 125 H POC Glucose Lactic Acid Uric Acid Calcium 8.1 L Phosphorus Magnesium Ferritin ALT Lactate Dehydrogenase Total Creatine Kinase CK-MB (CK-2) Troponin T NT-Pro-B Natriuret Pep Total Protein Albumin Prealbumin Cholesterol LDL Cholesterol Direct HDL Cholesterol Vitamin B12 Folate Urine WBC (Auto) Crossmatch 03/17/22 03/17/22 03/17/22 05:40 15:30 17:48 WBC RBC Hgb 8.2 L Hct 24.9 L MCH RDW Lymph % (Auto) Lymph # (Auto) Seg Neutrophils % Seg Neuts % (Manual) Lymphocytes % (Manual) Seg Neutrophils # Seg Neutrophils # Man Lymphocytes # (Manual) Monocytes # (Manual) Eosinophils # (Manual) D-Dimer ABG pH ABG pO2 ABG HCO3 ABG O2 Saturation ABG Base Excess ABG Hemoglobin Oxyhemoglobin Sodium Potassium Chloride Carbon Dioxide BUN Creatinine Glucose POC Glucose 115 H 117 H Lactic Acid Uric Acid Calcium Phosphorus Magnesium Ferritin ALT Lactate Dehydrogenase Total Creatine Kinase CK-MB (CK-2) Troponin T NT-Pro-B Natriuret Pep Total Protein Albumin Prealbumin Cholesterol LDL Cholesterol Direct HDL Cholesterol Vitamin B12 Folate Urine WBC (Auto) Crossmatch 03/17/22 03/18/22 03/18/22 23:54 05:04 05:20 WBC RBC Hgb Hct MCH RDW Lymph % (Auto) Lymph # (Auto) Seg Neutrophils % Seg Neuts % (Manual) Lymphocytes % (Manual) Seg Neutrophils # Seg Neutrophils # Man Lymphocytes # (Manual) Monocytes # (Manual) Eosinophils # (Manual) D-Dimer ABG pH 7.302 L ABG pO2 71.0 L ABG HCO3 ABG O2 Saturation 94.9 L ABG Base Excess -4.3 L ABG Hemoglobin 9.6 L Oxyhemoglobin 92.9 L Sodium 135 L Potassium Chloride Carbon Dioxide BUN 66 H Creatinine Glucose 122 H POC Glucose 114 H Lactic Acid Uric Acid Calcium 8.2 L Phosphorus Magnesium Ferritin ALT Lactate Dehydrogenase Total Creatine Kinase CK-MB (CK-2) Troponin T NT-Pro-B Natriuret Pep Total Protein 5.4 L Albumin 2.0 L Prealbumin Cholesterol LDL Cholesterol Direct HDL Cholesterol Vitamin B12 Folate Urine WBC (Auto) Crossmatch 03/18/22 03/18/22 03/18/22 05:20 06:44 12:04 WBC 23.9 H RBC 2.88 L Hgb 8.1 L Hct 25.1 L MCH RDW 16.0 H Lymph % (Auto) Lymph # (Auto) Seg Neutrophils % Seg Neuts % (Manual) 89.0 H Lymphocytes % (Manual) 7.5 L Seg Neutrophils # Seg Neutrophils # Man 21.3 H Lymphocytes # (Manual) Monocytes # (Manual) Eosinophils # (Manual) D-Dimer ABG pH ABG pO2 ABG HCO3 ABG O2 Saturation ABG Base Excess ABG Hemoglobin Oxyhemoglobin Sodium Potassium Chloride Carbon Dioxide BUN Creatinine Glucose POC Glucose 107 H 119 H Lactic Acid Uric Acid Calcium Phosphorus Magnesium Ferritin ALT Lactate Dehydrogenase Total Creatine Kinase CK-MB (CK-2) Troponin T NT-Pro-B Natriuret Pep Total Protein Albumin Prealbumin Cholesterol LDL Cholesterol Direct HDL Cholesterol Vitamin B12 Folate Urine WBC (Auto) Crossmatch 03/19/22 03/19/22 03/19/22 05:15 08:59 08:59 WBC 30.4 H RBC 2.78 L Hgb 7.7 L Hct 24.2 L MCH RDW 16.4 H Lymph % (Auto) Lymph # (Auto) Seg Neutrophils % Seg Neuts % (Manual) Lymphocytes % (Manual) Seg Neutrophils # Seg Neutrophils # Man Lymphocytes # (Manual) Monocytes # (Manual) Eosinophils # (Manual) D-Dimer ABG pH 7.341 L ABG pO2 78.1 L ABG HCO3 ABG O2 Saturation ABG Base Excess -4.5 L ABG Hemoglobin 9.5 L Oxyhemoglobin Sodium 132 L Potassium 5.5 H Chloride Carbon Dioxide 19 L BUN 84 H Creatinine Glucose 124 H POC Glucose Lactic Acid Uric Acid Calcium Phosphorus Magnesium Ferritin ALT Lactate Dehydrogenase Total Creatine Kinase CK-MB (CK-2) Troponin T NT-Pro-B Natriuret Pep Total Protein Albumin Prealbumin Cholesterol LDL Cholesterol Direct HDL Cholesterol Vitamin B12 Folate Urine WBC (Auto) Crossmatch Chest x-ray: pending Allied health notes reviewed: nursing
[2022-03-19 14:58] LABS: ABG Base Excess -4.5 mmol/L (-2.0-3.0); ABG HCO3 20.9 mmol/L (20.0-26.0); ABG Methemoglobin 0.5 % (0.0-1.5); ABG Oxygen Saturation 74.8 % (95.0-99.0); ABG PH 7.337 pH Units (7.350-7.450); ABG PO2 41.2 mm Hg (80.0-90.0)
[2022-03-19] MEDS ORDERED: SODIUM CHLORIDE 0.9% 1000 ML 1,000 ML ONE (14:59)
--- NOTE | 2022-03-19 15:23 | Progress Note ---
<KITTY MICHELLE - Last Filed: 03/19/22 19:35> Assessment and Plan Assessment and plan: This is a 61-year-old female with known past medical history of Multiple Sclerosis and seizure disorder admitted for sepsis, Hyponatremia, and acute hypoxic respiratory failure requiring ventilatory support Hospital Course to Date: 03/10: S/p intubation this am due to tachypnea and worsen mental status. Current sedated and stable on the vent. Patient is now on low dose Levophed gtt due to hypotension. Presented with a Na level of 119, on continuous NS at 125ml, repeat BMP pending. Continue IVF hydration and serial Na Q6hrs. Nephrology is also following. Continue empiric IV Abx for CAP, COVID PCR pending, ID consult pending. D-Dimer also elevated, BLE doppler ordered, therapeutic Lovenox initiated. D/W CCM patient is too unstable for transport at this time, possible CTA chest in the am or once patient is more stable. Cardiology was also consulted for elevated troponin X2, EKG noted with no significant ST changes, 2D echo pending. Resume home AEDs, continue seizure precautions. Monitor and repla ce electrolytes as needed 03/11: Intubated and low dose fentanyl gtt. Open eyes spontaneously but does not track, not following commands. NA level 132 this am, Nabcarb gtt initiated per Nephro. CT head/brain w/o con ordered to r/o intracranial abnormality. Wean off sedation to better assess mental status. Remains on Levophed gtt, afebrile, but with leukocytosis this am. This am CXR and ABG noted, with significant improvement. D/w CCM, PE less likely will hold off on CTA chest for now. Lovenox switched to Qday. Continue empiric IV Abx, ID consult pending. 03/12: Discontinue bicarb gtt, replete phos and potassium, added miralax. Remain on levo and fent gtt 03/13: MRI brain/C-spine completed, EEG completed. Hyponatremia improved, patient remains on Levophed. Had a temperature of 101.3 remains on cefepime. Will defer to ID for abx. Will reculture on next temperature spike. 03/14: Overnight patient had hypoxia issues and FiO2 was increased to 100%, received lasix with repeat dose in AM. Hypotension and increase in levophed. Replete K. 03/15: hypoxia overnight and currently on 100%. RN attempted to lay flat and patient desatted to 88%. Will attempt again later today. Given lasix again. Hopeful to be able to have MRI today. Type and screen today for downtrending h/h, Wean FiO2 as tolerated, repelted phos with sodium phos. 03/16: hypoxic, fio2: 80%, desats on positional movements. Remains on levophed gtt, attempting to wean off. Remains too unstable for MRI brain. May benefit f rom steroids if altered mentation believed to be from MS flare. 03/17: Hypoxic overnight. FIO2 increased to 95%. Continue icu level supportive care with vent, levophed Gtt, merrem. Hgb 6.6 this AM, ordered 1 unit prbc. 03/18: WBC uptrending, persisting fevers. will re-culture with urine cx, sputum cx and bcx. Overall poor prognosis. Will attempt GOK discussion with family. 03/19: With persistent episodes of hypoxia overnight and this am. On 65% Fio2 and peep of 14 this am. Fevers improved, but leukocytosis worsen this am. Repeat cultures pending, continue current IV Abx per ID. Patient remains on Levophed gtt. X1 dose of kayexalate this am for hyperkalemia, worsening azotemia also noted, Nephrology is also following. Overall poor prognosis, possible GOC discussion with patient's son sometimes this week. Assessment and Plan #ARDS #Acute Hypoxemic Respiratory Failure #Multifocal Pneumonia/CAP - Brought in from home by EMS due to SOB and difficulty breathing - SPO2 was in the 50s on RA, placed on CPAP. Then Bipap in the ED - Chest x-ray was concerning for multifocal pneumonia. - Patient intubated on 03/10 due to tachypnea and worsen mental - Now in ARDS, frequent desaturations and hypoxia overnight and this am - Vent setting: PRVC-65%,14,14, 400 - This am ABG noted - CCM consulted, appreciate recommendations - Continue empiric IV Abx - VAP bundle addressed - Aspiration precaution HOB above 30 - Daily SBT and SAT trials as tolerated - Daily ABG and CXR - Continue SPO2 monitoring for SPO2 goal above 92% #Hypotension 2/2 #Septic Shock #NSTEMI/Elevated Troponin #Elevated BNP - Presented with hypotension now on low dose pressors-Levophed - Positive troponin X2, EKG noted with no significant ST changed - BNP [id number] on admit - remains on Levophed gtt this am - 2D Echo LVEF 50%, no pulmonary HTN. See report for details - With generalized pitting edema, s/p IV lasix X3days - Cardiology consulted, appreciated recommendations - Continue blood pressure monitor per protocol - Titrate pressor to maintain MAP above 65 - VTE phroph- Lovenox SubQ #Azotemia #Severe Hyponatremia- improved #Hypokalemia-resolved - Presented with a Na level of 119 - Probably due to dehydration - S/p IVF hydrationa dn Bicarb gtt - S/p X3 dose of IV lasix - Now with worsening azotemia - Nephrology consulted, appreciate recommendations - Strict intake and output - Avoid nephrotoxic medications - Monitor and replace electrolytes as needed #Septic Shock #Multifocal Pneumonia/CAP #Leukocytosis #Lactic Acidosis-resolved - Brought in from home by EMS due to SOB and difficulty breathing, Hypotensive, with elevated lactic acid, WBCs wnr - Chest x-ray was concerning for multifocal pneumonia - COVID PCR negative - UA with elevated Wbcs - urine and blood cultures with NGTD - CRP unremarkable, procal noted - Sudheer temp yesterday and was recultures. Cultures pending - ID consulted, appreciate recommendations - IV Abx was escalated to meropenem per ID - F/U on cultures - Continue to CBC #Acute Metabolic Encephalopathy #H/o Multiple Sclerosis and Seizure Disorder - Intubated and sedated, on fentanyl gtt - CT head shows vascular angioplasty without clear evidence of acute intracranial hemorrhage - MRI brain with and without contrast and MRI C-spine with and without contrast pending - EEG considered abnormal and is compatible with diffuse encephalopathy of perhaps significant brain sedation or neuro active medication or daily combination of both. Absence of epileptiform abnormality but would not rule out possibility of epilepsy - UDS (+) for opiates - Resumed home Keppra - Neurology consulted, appreciate recommendations - Avoid benzodiazepine to reduce the possibility of delirium - Titrate sedation for RASS goal 0 to -1 - PRN Analgesia for CPOT greater than 3 - Maintenance of sleep-wake cycle - Seizure precaution #Elevated D-Dimer - COVID PCR negative - BLE [place] negative DVT - on Lovenox SubQ #Moderate Protein Calorie Malnutrition - DHT inserted - Initiated enteral nutrition - Nutrition consulted #GI/DVT Prophylaxis - PPI- Pepcid - Lovenox SubQ - SCDs to bilateral lower extremities while in bed #Advance Care Planning - Disease education data, care plan, diagnoses, and prognosis discussed with patient's son Homar Bailey #[phone]. All questions and concerns were addressed at this time. Patient's son acknowledged understanding and agreement with current care plan. Patient is a FULL code. The high probability of a clinically significant, sudden or life threatening deterioration of the [multiple] system(s) required my full and direct attention, intervention and personal management. The aggregate critical care time was [60] minutes. This time is in addition to time spent performing reported procedures but includes the following: [x] Data Review and interpretation [x] Patient assessment and monitoring of vital signs [x] Documentation [x] Medication orders and management Disposition Plan: ICU Total Time Spent with Patient (Minutes): 60 History Interval history: Patient seen and examined at the bedside. Intubated and sedated. Remains on Levophed gtt for hypertension. Periods of hypoxia overnight and this am, Fio2 increased to 65% and Peep of 14 Hospitalist Physical - Constitutional Vitals: Temp Pulse Resp BP Pulse Ox 97.4 F L 100 H 30 H 104/64 90 03/19/22 08:00 03/19/22 13:30 03/19/22 13:30 03/19/22 13:30 03/19/22 13:30 General appearance: Present: no acute distress, other (sedated, intubated) - EENT Eyes: Present: PERRL - Respiratory Respiratory effort: other (Tachpnea) Respiratory: bilateral: rhonchi - Cardiovascular Rhythm: regular Heart Sounds: Present: S1 & S2 - Extremities Extremities: no ischemia, pulses intact, pulses symmetrical Extremity abnormal: edema - Peripheral Assessment Generalized Edema Type: Pitting Edema Degree: 2+ Capillary Refill: < 3 seconds Skin Temperature: Warm Peripheral Pulses: within normal limits - Abdominal General gastrointestinal: soft, non-distended, normal bowel sounds - Integumentary Integumentary: Present: warm, dry - Psychiatric Psychiatric: other (Intubated and sedated) - Neurologic Neurologic: other (Intubated and sedated) - Allied Health Allied health notes reviewed: nursing, case management HEART Score - HEART Score Troponin: Troponin T 0.032 ng/mL (0.00-0.029) H D 03/10/22 12:24 Results - Labs CBC & Chem 7: 03/19/22 08:59 03/19/22 08:59 Labs: Laboratory Last Values WBC 30.4 K/mm3 (4.5-11.0) H 03/19/22 08:59 RBC 2.78 M/mm3 (3.65-5.03) L 03/19/22 08:59 Hgb 7.7 gm/dl (10.1-14.3) L 03/19/22 08:59 Hct 24.2 % (30.3-42.9) L 03/19/22 08:59 MCV 87 fl (79-97) 03/19/22 08:59 MCH 28 pg (28-32) 03/19/22 08:59 MCHC 32 % (30-34) 03/19/22 08:59 RDW 16.4 % (13.2-15.2) H 03/19/22 08:59 Plt Count 393 K/mm3 (140-440) 03/19/22 08:59 Lymph % (Auto) 8.9 % (13.4-35.0) L 03/11/22 05:00 [place] % (Auto) 4.2 % (0.0-7.3) 03/11/22 05:00 Eos % (Auto) 0.1 % (0.0-4.3) 03/11/22 05:00 Baso % (Auto) 0.2 % (0.0-1.8) 03/11/22 05:00 Lymph # (Auto) 1.2 K/mm3 (1.2-5.4) 03/11/22 05:00 [place] # (Auto) 0.6 K/mm3 (0.0-0.8) 03/11/22 05:00 Eos # (Auto) 0.0 K/mm3 (0.0-0.4) 03/11/22 05:00 Baso # (Auto) 0.0 K/mm3 (0.0-0.1) 03/11/22 05:00 Add Manual Diff Complete 03/18/22 05:20 Total Counted 200 03/18/22 05:20 Seg Neutrophils % 86.6 % (40.0-70.0) H 03/11/22 05:00 Seg Neuts % (Manual) 89.0 % (40.0-70.0) H 03/18/22 05:20 Band Neutrophils % 0 % 03/18/22 05:20 Lymphocytes % (Manual) 7.5 % (13.4-35.0) L 03/18/22 05:20 Reactive Lymphs % (Man) 0 % 03/18/22 05:20 Monocytes % (Manual) 3.0 % (0.0-7.3) 03/18/22 05:20 Eosinophils % (Manual) 0.5 % (0.0-4.3) 03/18/22 05:20 Basophils % (Manual) 0 % (0.0-1.8) 03/18/22 05:20 Metamyelocytes % 0 % 03/18/22 05:20 Myelocytes % 0 % 03/18/22 05:20 Promyelocytes % 0 % 03/18/22 05:20 Blast Cells % 0 % 03/18/22 05:20 Nucleated RBC % Not Reportable 03/18/22 05:20 Seg Neutrophils # 11.8 K/mm3 (1.8-7.7) H 03/11/22 05:00 Seg Neutrophils # Man 21.3 K/mm3 (1.8-7.7) H 03/18/22 05:20 Band Neutrophils # 0.0 K/mm3 03/18/22 05:20 Lymphocytes # (Manual) 1.8 K/mm3 (1.2-5.4) 03/18/22 05:20 Abs React Lymphs (Man) 0.0 K/mm3 03/18/22 05:20 Monocytes # (Manual) 0.7 K/mm3 (0.0-0.8) 03/18/22 05:20 Eosinophils # (Manual) 0.1 K/mm3 (0.0-0.4) 03/18/22 05:20 Basophils # (Manual) 0.0 K/mm3 (0.0-0.1) 03/18/22 05:20 Metamyelocytes # 0.0 K/mm3 03/18/22 05:20 Myelocytes # 0.0 K/mm3 03/18/22 05:20 Promyelocytes # 0.0 K/mm3 03/18/22 05:20 Blast Cells # 0.0 K/mm3 03/18/22 05:20 WBC Morphology Not Reportable 03/18/22 05:20 Hypersegmented Neuts Not Reportable 03/18/22 05:20 Hyposegmented Neuts Not Reportable 03/18/22 05:20 Hypogranular Neuts Not Reportable 03/18/22 05:20 Smudge Cells Not Reportable 03/18/22 05:20 Toxic Granulation Not Reportable 03/18/22 05:20 Toxic Vacuolation Not Reportable 03/18/22 05:20 Dohle Bodies Not Reportable 03/18/22 05:20 Pelger-Huet Anomaly Not Reportable 03/18/22 05:20 Luis Rods Not Reportable 03/18/22 05:20 Platelet Estimate Consistent w auto 03/18/22 05:20 Clumped Platelets Not Reportable 03/18/22 05:20 Plt Clumps, EDTA Not Reportable 03/18/22 05:20 Large Platelets Not Reportable 03/18/22 05:20 Giant Platelets Not Reportable 03/18/22 05:20 Platelet Satelliting Not Reportable 03/18/22 05:20 Plt Morphology Comment Not Reportable 03/18/22 05:20 RBC Morphology Not Reportable 03/18/22 05:20 Dimorphic RBCs Not Reportable 03/18/22 05:20 Polychromasia Not Reportable 03/18/22 05:20 Hypochromasia 1+ 03/18/22 05:20 Poikilocytosis Not Reportable 03/18/22 05:20 Anisocytosis 1+ 03/18/22 05:20 Microcytosis Not Reportable 03/18/22 05:20 Macrocytosis Not Reportable 03/18/22 05:20 Spherocytes Not Reportable 03/18/22 05:20 Pappenheimer Bodies Not Reportable 03/18/22 05:20 Sickle Cells Not Reportable 03/18/22 05:20 Target Cells Few 03/18/22 05:20 Tear Drop Cells Not Reportable 03/18/22 05:20 Ovalocytes Not Reportable 03/18/22 05:20 Helmet Cells Not Reportable 03/18/22 05:20 [place] Bodies Not Reportable 03/18/22 05:20 [place] Rings Not Reportable 03/18/22 05:20 Rudy Cells Not Reportable 03/18/22 05:20 Bite Cells Not Reportable 03/18/22 05:20 Crenated Cell Not Reportable 03/18/22 05:20 Elliptocytes Not Reportable 03/18/22 05:20 Acanthocytes (Spur) Not Reportable 03/18/22 05:20 Rouleaux Not Reportable 03/18/22 05:20 Hemoglobin C Crystals Not Reportable 03/18/22 05:20 Schistocytes Not Reportable 03/18/22 05:20 Malaria parasites Not Reportable 03/18/22 05:20 Tani Bodies Not Reportable 03/18/22 05:20 Hem Pathologist Commnt No 03/18/22 05:20 PT 14.9 Sec. (12.2-14.9) 03/10/22 01:25 INR 1.03 (0.87-1.13) 03/10/22 01:25 D-Dimer 787.78 ng/mlDDU (0-234) H 03/10/22 05:45 ABG pH 7.337 pH Units (7.350-7.450) L 03/19/22 14:40 ABG pCO2 40.0 mm Hg 03/19/22 14:40 ABG pO2 41.2 mm Hg (80.0-90.0) L 03/19/22 14:40 ABG HCO3 20.9 mmol/L (20.0-26.0) 03/19/22 14:40 ABG O2 Saturation 74.8 % (95.0-99.0) L 03/19/22 14:40 ABG O2 Content 8.2 (0.0-44) 03/19/22 14:40 ABG Base Excess -4.5 mmol/L (-2.0-3.0) L 03/19/22 14:40 ABG Hemoglobin 7.9 gm/dl (12.0-16.0) L 03/19/22 14:40 ABG Carboxyhemoglobin 2.0 % (0.0-5.0) 03/19/22 14:40 ABG Methemoglobin 0.5 % (0.0-1.5) 03/19/22 14:40 Oxyhemoglobin 72.9 % (95.0-99.0) L 03/19/22 14:40 FiO2 65 % 03/19/22 14:40 Sodium 132 mmol/L (137-145) L 03/19/22 08:59 Potassium 5.5 mmol/L (3.6-5.0) H 03/19/22 08:59 Chloride 98.7 mmol/L (98-107) 03/19/22 08:59 Carbon Dioxide 19 mmol/L (22-30) L 03/19/22 08:59 Anion Gap 20 mmol/L 03/19/22 08:59 BUN 84 mg/dL (7-17) H 03/19/22 08:59 Creatinine 0.9 mg/dL (0.6-1.2) 03/19/22 08:59 Estimated GFR > 60 ml/min 03/19/22 08:59 BUN/Creatinine Ratio 93 % 03/19/22 08:59 Glucose 124 mg/dL (65-100) H 03/19/22 08:59 POC Glucose 104 mg/dL (70-105) 03/19/22 14:00 Osmolality 285 Mosm/kg 03/10/22 12:24 Lactic Acid 0.90 mmol/L (0.7-2.0) 03/18/22 05:20 Uric Acid 1.6 mg/dL (3.5-7.6) L 03/10/22 13:15 Calcium 8.4 mg/dL (8.4-10.2) 03/19/22 08:59 Phosphorus 3.70 mg/dL (2.5-4.5) 03/18/22 05:20 Magnesium 2.00 mg/dL (1.7-2.3) 03/18/22 05:20 Ferritin 219.2 ng/mL (10.0-200.0) H 03/10/22 05:45 Total Bilirubin 0.30 mg/dL (0.1-1.2) 03/18/22 05:20 AST 39 units/L (5-40) 03/18/22 05:20 ALT 14 units/L (7-56) 03/18/22 05:20 Alkaline Phosphatase 119 units/L (35-129) 03/18/22 05:20 Lactate Dehydrogenase 210 units/L (91-180) H 03/10/22 05:45 Total Creatine Kinase 901 units/L (30-135) H 03/10/22 12:24 CK-MB (CK-2) 15.3 ng/mL (0.0-4.0) H 03/10/22 12:24 CK-MB (CK-2) Rel Index 1.6 (0-4) 03/10/22 12:24 Troponin T 0.032 ng/mL (0.00-0.029) H D 03/10/22 12:24 C-Reactive Protein < 0.03 mg/dL (0.00-1.30) 03/10/22 05:45 NT-Pro-B Natriuret Pep 16760 pg/mL (0-900) H 03/10/22 01:25 Total Protein 5.4 g/dL (6.3-8.2) L 03/18/22 05:20 Albumin 2.0 g/dL (3.9-5) L 03/18/22 05:20 Albumin/Globulin Ratio 0.6 % 03/18/22 05:20 Prealbumin 0.044 g/L (0.200-0.400) L 03/12/22 18:40 Triglycerides 47 mg/dL (2-149) 03/10/22 01:25 Cholesterol 259 mg/dL (50-199) H 03/10/22 01:25 LDL Cholesterol Direct 187 mg/dL (50-130) H 03/10/22 01:25 HDL Cholesterol 63 mg/dL (40-59) H 03/10/22 01:25 Cholesterol/HDL Ratio 4.11 % 03/10/22 01:25 Lipase 15 units/L (13-60) 03/10/22 01:25 Vitamin B1 28 nmol/L (8-30) 03/13/22 08:00 Vitamin B12 1021 pg/mL (211-911) H 03/12/22 18:40 Folate 2.15 ng/mL (7.3-26.0) L 03/12/22 18:40 Procalcitonin 3.92 ng/mL (<0.15) 03/10/22 05:45 TSH 1.290 mlU/mL (0.270-4.200) 03/12/22 18:40 Urine Color Yellow (Yellow) 03/10/22 18:20 Urine Turbidity Clear (Clear) 03/10/22 18:20 Urine pH 6.0 (5.0-7.0) 03/10/22 18:20 Ur Specific [place] 1.010 (1.003-1.030) 03/10/22 18:20 Urine Protein <15 mg/dl mg/dL (Negative) 03/10/22 18:20 Urine Glucose (UA) Neg mg/dL (Negative) 03/10/22 18:20 Urine Ketones Tr mg/dL (Negative) 03/10/22 18:20 Urine Blood Sm (Negative) 03/10/22 18:20 Urine Nitrite Neg (Negative) 03/10/22 18:20 Urine Bilirubin Neg (Negative) 03/10/22 18:20 Urine Urobilinogen < 2.0 mg/dL (<2.0) 03/10/22 18:20 Ur Leukocyte Esterase Lg (Negative) 03/10/22 18:20 Urine WBC (Auto) 105.0 /HPF (0.0-6.0) H 03/10/22 18:20 Urine RBC (Auto) 2.0 /HPF (0.0-6.0) 03/10/22 18:20 U Epithel Cells (Auto) < 1.0 /HPF (0-13.0) 03/10/22 18:20 Urine Bacteria (Auto) 1+ /HPF (Negative) 03/10/22 18:20 Urine Osmolality 368 Mosm/kg 03/10/22 18:20 Urine Sodium 64 mmol/L 03/10/22 18:20 Urine Opiates Screen Presumptive positive 03/10/22 18:20 Urine Methadone Screen Presumptive negative 03/10/22 18:20 Ur Barbiturates Screen Presumptive negative 03/10/22 18:20 Ur Phencyclidine Scrn Presumptive negative 03/10/22 18:20 Ur Amphetamines Screen Presumptive negative 03/10/22 18:20 U Benzodiazepines Scrn Presumptive negative 03/10/22 18:20 Urine Cocaine Screen Presumptive negative 03/10/22 18:20 U Marijuana (THC) Screen Presumptive negative 03/10/22 18:20 Drugs of Abuse Note Disclamer 03/10/22 18:20 Copper 118 mcg/dL (70-175) 03/12/22 18:40 Syphilis IgG/IgM Ab Nonreactive (NonReactive) 03/12/22 18:40 SARS-CoV-2 (PCR) Negative (Negative) 03/10/22 09:50 Blood Type O POSITIVE 06/30/22 09:42 Antibody Screen Negative 03/15/22 09:42 Crossmatch See Detail 03/15/22 09:42 Microbiology: Microbiology 03/18/22 15:12 Peripheral/Venous Blood Culture - Preliminary Culture in Progress 03/18/22 15:12 Peripheral/Venous Blood Culture - Preliminary Culture in Progress [place]/IV: Voiding Method Indwelling Catheter Active Medications - Current Medications Current Medications: Generic Name Dose Route Start Last Admin Trade Name Freq PRN Reason Stop Dose Admin Acetaminophen 650 mg 03/13/22 05:50 03/18/22 16:36 Acetaminophen 325 Mg/10.15 Ml Oral Liqd Unit Dose FEEDTUBE 650 mg Q6H PRN Administration Non Cardiac Pain or Temp>100.5 Bisacodyl 10 mg 03/15/22 10:00 Bisacodyl 5 Mg Tab PO QDAY PRN Constipation Enoxaparin Sodium 40 mg 03/12/22 10:00 03/19/22 09:54 Enoxaparin 40 Mg/0.4 Ml Inj SUB-Q 40 mg QDAY@1000 SHAHBAZ Administration Protocol Famotidine 20 mg 03/12/22 10:00 03/19/22 09:54 Famotidine 20 Mg Tab FEEDTUBE 20 mg BID SHAHBAZ Administration Fentanyl 50 mcg 03/10/22 10:58 03/14/22 20:48 Fentanyl 100 Mcg/2 Ml Inj IV 50 mcg Q10MIN PRN Administration ANALGESIA Hydrophilic Ointment 1 applic 03/10/22 11:03 Lip Therapy Vaseline TP Q2HR PRN Dry Lips Fentanyl Citrate 2,000 mcg in 100 mls @ 4.16 mls/hr 03/10/22 11:00 03/19/22 09:52 Fentanyl Drip Premix IV 2 mcg/kg/hr TITR SHAHBAZ 8.32 mls/hr Administration Protocol 1 MCG/KG/HR NORepinephrine/NS 8 MG-250 ML 8 mg in 250 mls @ 3.75 mls/hr 03/10/22 11:00 03/19/22 10:00 Norepinephrine/Ns 8 Mg-250 Ml (Double Conc) IV 3 mcg/min TITRATE SHAHBAZ 5.625 mls/hr Titration Protocol 2 MCG/MIN Meropenem/Sodium Chloride 1 gram in 100 mls @ 100 mls/hr 03/14/22 22:00 03/19/22 14:06 Merrem/Ns 1 Gram/100 Ml IV 100 mls/hr Q8H SHAHBAZ Administration Protocol Levetiracetam 500 mg 03/12/22 10:00 03/19/22 09:54 Levetiracetam 500 Mg/5 Ml Oral Liqd FEEDTUBE 500 mg BID SHAHBAZ Administration Magnesium Hydroxide 30 ml 03/10/22 02:56 Magnesium Hydroxide (Mom) Oral Liqd Udc PO Q4H PRN Constipation Multi-Ingred Cream/Lotion/Oil/Oint 1 applic 03/10/22 11:03 Mineral Oil/Petrolatum, White Ophth Oint 3.5 Gm OU Q4HR PRN Dry Eye(s) Ondansetron HCl 4 mg 03/10/22 02:56 Ondansetron 4 Mg/2 Ml Inj IV Q8H PRN Nausea And Vomiting Polyethylene Glycol 17 gm 03/12/22 10:00 03/19/22 09:55 Polyethylene Glycol 3350 17 Gm Powder FEEDTUBE Not Given QDAY SHAHBAZ Scopolamine 1 each 03/21/22 10:00 Scopolamine Transdermal Patch 72 Hr TD Q3D SHAHBAZ Senna/Docusate Sodium 2 tab 03/14/22 10:00 03/19/22 09:55 Sennosides/Docusate Sodium 8.6/50 Mg Tab FEEDTUBE Not Given Q12H SHAHBAZ Sodium Chloride 10 ml 03/10/22 10:00 03/19/22 09:54 Sodium Chloride 0.9% 10 Ml Flush Syringe IV 10 ml BID SHAHBAZ Administration Sodium Chloride 10 ml 03/10/22 02:56 Sodium Chloride 0.9% 10 Ml Flush Syringe IV PRN PRN LINE FLUSH Nutrition/Malnutrition Assess - Dietary Evaluation Nutrition/Malnutrition Findings: Nutrition Notes Start: 03/10/22 12:22 Freq: Status: Active Protocol: Document 03/14/22 12:08 JOSH (Rec: 03/14/22 12:31 JOSH [id number]) Nutrition Notes Initial or Follow up Brief Note Current Diagnosis Sepsis,Hypertension, Respiratory Failure, Malnutrition Other Pertinent Diagnosis MS, CAP, Seizure, Metabolic Encephalopathy, Hyponatremia, Hypokalemia, ... Current Diet TF-Vital AF 1.2 En @ 60 ml/hr (since D 03/10). Height 5 ft 6 in Weight 83.2 kg [place] Body Weight (kg) 59.09 BMI 29.6 Weight change and time frame No body weight change reported in 4 days. Weight Status Overweight Subjective/Other Information RD consult for routine F/U on TF tolerance/continuation. TF continues as prescribed, and well tolerated, according to RN notes. Pt remains on Mechanical Ventilation, O2 saturation @ 97%, according to Physical Assessment History notes. Pt presents an unspecified area of concern for skin risk with redness and flakiness, according to Physical Assessment History notes. Percent of energy/protein needs met: Prescribed TF-Vital AF 1.2 En @ 60 ml/hr provides for energy/protein needs (1,728 Kcal/108 g) during LOS, 100% Kcal; 100% AA. #1 Nutrition Diagnosis Inadequate oral intake Diagnosis Progress(for reassessment Continues documentation) Is patient on ventilator? Yes Is Patient Ambulatory and/or Out of Bed No REE-(Marin-St. Jeor-confined to bed) 1713.168 Calculation Used for Recommendations [facility] Additional Notes Protein: 1-1.2 g/Kg ABW; 100- 166 g/day. Fluids: 1 ml/Kcal, or as per MD. Nutrition Intervention Nutrition Support: Continue TF-Vital AF 1.2 En @ 60 ml/hr. Flush: 100 ml water Q 4 hr, or as per MD. Kcal 1,728 Protein (gm) 108 Carbohydrates (gm) 159 Fat (gm) 78 Fluid (mL) 1,168 Fiber (gm) 7 % RDI: 100% Kcal; 100% AA. Goal #1 Provide at least 75% of energy /protein needs through Enteral Feeding during LOS. Follow-Up By: 03/21/22 Additional Comments Continue monitoring TF tolerance, Ventilation Status, Pressor support, and BM. <IRWIN MENENDEZ - Last Filed: 03/22/22 12:14> Assessment and Plan Assessment and plan: I saw and evaluated the patient. Discussed with the nurse practitioner and agree with their findings and plan as documented in this note. Hospitalist Physical - Constitutional Vitals: Temp Pulse Resp BP Pulse Ox 99.3 F 88 28 H 93/62 100 03/22/22 06:57 03/22/22 11:00 03/22/22 11:00 03/22/22 11:00 03/22/22 11:00 HEART Score - HEART Score Troponin: Troponin T 0.032 ng/mL (0.00-0.029) H D 03/10/22 12:24 Results - Labs CBC & Chem 7: 03/22/22 04:10 03/22/22 04:10 Labs: Laboratory Last Values WBC 32.9 K/mm3 (4.5-11.0) H 03/22/22 04:10 RBC 2.60 M/mm3 (3.65-5.03) L 03/22/22 04:10 Hgb 7.4 gm/dl (10.1-14.3) L 03/22/22 04:10 Hct 22.3 % (30.3-42.9) L 03/22/22 04:10 MCV 86 fl (79-97) 03/22/22 04:10 MCH 29 pg (28-32) 03/22/22 04:10 MCHC 33 % (30-34) 03/22/22 04:10 RDW 16.8 % (13.2-15.2) H 03/22/22 04:10 Plt Count 517 K/mm3 (140-440) H 03/22/22 04:10 Lymph % (Auto) 8.9 % (13.4-35.0) L 03/11/22 05:00 [place] % (Auto) 4.2 % (0.0-7.3) 03/11/22 05:00 Eos % (Auto) 0.1 % (0.0-4.3) 03/11/22 05:00 Baso % (Auto) 0.2 % (0.0-1.8) 03/11/22 05:00 Lymph # (Auto) 1.2 K/mm3 (1.2-5.4) 03/11/22 05:00 [place] # (Auto) 0.6 K/mm3 (0.0-0.8) 03/11/22 05:00 Eos # (Auto) 0.0 K/mm3 (0.0-0.4) 03/11/22 05:00 Baso # (Auto) 0.0 K/mm3 (0.0-0.1) 03/11/22 05:00 Add Manual Diff Complete 03/21/22 04:40 Total Counted 100 03/21/22 04:40 Seg Neutrophils % 86.6 % (40.0-70.0) H 03/11/22 05:00 Seg Neuts % (Manual) 71.0 % (40.0-70.0) H 03/21/22 04:40 Band Neutrophils % 12.0 % 03/21/22 04:40 Lymphocytes % (Manual) 2.0 % (13.4-35.0) L 03/21/22 04:40 Reactive Lymphs % (Man) 0 % 03/21/22 04:40 Monocytes % (Manual) 7.0 % (0.0-7.3) 03/21/22 04:40 Eosinophils % (Manual) 3.0 % (0.0-4.3) 03/21/22 04:40 Basophils % (Manual) 0 % (0.0-1.8) 03/21/22 04:40 Metamyelocytes % 3.0 % 03/21/22 04:40 Myelocytes % 0 % 03/21/22 04:40 Promyelocytes % 2.0 % 03/21/22 04:40 Blast Cells % 0 % 03/21/22 04:40 Nucleated RBC % 1.0 % (0.0-0.9) H 03/21/22 04:40 Seg Neutrophils # 11.8 K/mm3 (1.8-7.7) H 03/11/22 05:00 Seg Neutrophils # Man 18.2 K/mm3 (1.8-7.7) H 03/21/22 04:40 Band Neutrophils # 3.1 K/mm3 03/21/22 04:40 Lymphocytes # (Manual) 0.5 K/mm3 (1.2-5.4) L 03/21/22 04:40 Abs React Lymphs (Man) 0.0 K/mm3 03/21/22 04:40 Monocytes # (Manual) 1.8 K/mm3 (0.0-0.8) H 03/21/22 04:40 Eosinophils # (Manual) 0.8 K/mm3 (0.0-0.4) H 03/21/22 04:40 Basophils # (Manual) 0.0 K/mm3 (0.0-0.1) 03/21/22 04:40 Metamyelocytes # 0.8 K/mm3 03/21/22 04:40 Myelocytes # 0.0 K/mm3 03/21/22 04:40 Promyelocytes # 0.5 K/mm3 03/21/22 04:40 Blast Cells # 0.0 K/mm3 03/21/22 04:40 WBC Morphology Not Reportable 03/21/22 04:40 Hypersegmented Neuts Not Reportable 03/21/22 04:40 Hyposegmented Neuts Not Reportable 03/21/22 04:40 Hypogranular Neuts Not Reportable 03/21/22 04:40 Smudge Cells Not Reportable 03/21/22 04:40 Toxic Granulation Not Reportable 03/21/22 04:40 Toxic Vacuolation Not Reportable 03/21/22 04:40 Dohle Bodies Not Reportable 03/21/22 04:40 Pelger-Huet Anomaly Not Reportable 03/21/22 04:40 Luis Rods Not Reportable 03/21/22 04:40 Platelet Estimate Consistent w auto 03/21/22 04:40 Clumped Platelets Not Reportable 03/21/22 04:40 Plt Clumps, EDTA Not Reportable 03/21/22 04:40 Large Platelets Few 03/21/22 04:40 Giant Platelets Not Reportable 03/21/22 04:40 Platelet Satelliting Not Reportable 03/21/22 04:40 Plt Morphology Comment Not Reportable 03/21/22 04:40 RBC Morphology Not Reportable 03/21/22 04:40 Dimorphic RBCs Not Reportable 03/21/22 04:40 Polychromasia Not Reportable 03/21/22 04:40 Hypochromasia 3+ 03/21/22 04:40 Poikilocytosis Not Reportable 03/21/22 04:40 Anisocytosis 1+ 03/21/22 04:40 Microcytosis 1+ 03/21/22 04:40 Macrocytosis Not Reportable 03/21/22 04:40 Spherocytes Not Reportable 03/21/22 04:40 Pappenheimer Bodies Not Reportable 03/21/22 04:40 Sickle Cells Not Reportable 03/21/22 04:40 Target Cells Rare 03/21/22 04:40 Tear Drop Cells Few 03/21/22 04:40 Ovalocytes 1+ 03/21/22 04:40 Helmet Cells Not Reportable 03/21/22 04:40 [place] Bodies Not Reportable 03/21/22 04:40 [place] Rings Not Reportable 03/21/22 04:40 [place] Cells Not Reportable 03/21/22 04:40 Bite Cells Not Reportable 03/21/22 04:40 Crenated Cell Not Reportable 03/21/22 04:40 Elliptocytes Few 03/21/22 04:40 Acanthocytes (Spur) Not Reportable 03/21/22 04:40 Rouleaux Not Reportable 03/21/22 04:40 Hemoglobin C Crystals Not Reportable 03/21/22 04:40 Schistocytes Few 03/21/22 04:40 Malaria parasites Not Reportable 03/21/22 04:40 Tani Bodies Not Reportable 03/21/22 04:40 Hem Pathologist Commnt No 03/21/22 04:40 PT 17.2 Sec. (12.2-14.9) H 03/22/22 09:30 INR 1.25 (0.87-1.13) H 03/22/22 09:30 APTT 33.4 Sec. (24.2-36.6) 03/22/22 09:30 D-Dimer 787.78 ng/mlDDU (0-234) H 03/10/22 05:45 ABG pH 7.355 pH Units (7.350-7.450) 03/22/22 09:00 ABG pCO2 36.5 mm Hg 03/22/22 09:00 ABG pO2 82.0 mm Hg (80.0-90.0) 03/22/22 09:00 ABG HCO3 19.9 mmol/L (20.0-26.0) L 03/22/22 09:00 ABG O2 Saturation 92.8 % (95.0-99.0) L 03/21/22 21:00 ABG O2 Content 20.1 (0.0-44) 03/22/22 09:00 ABG Base Excess -4.9 mmol/L (-2.0-3.0) L 03/22/22 09:00 ABG Hemoglobin 7.6 gm/dl (12.0-16.0) L 03/21/22 21:00 ABG Carboxyhemoglobin 1.9 % (0.0-5.0) 03/21/22 21:00 ABG Methemoglobin 0.4 % (0.0-1.5) 03/21/22 21:00 Oxyhemoglobin 90.7 % (95.0-99.0) L 03/21/22 21:00 FiO2 80 % 03/22/22 09:00 Sodium 137 mmol/L (137-145) 03/22/22 04:10 Potassium 5.4 mmol/L (3.6-5.0) H 03/22/22 04:10 Chloride 97.2 mmol/L (98-107) L 03/22/22 04:10 Carbon Dioxide 21 mmol/L (22-30) L 03/22/22 04:10 Anion Gap 24 mmol/L 03/22/22 04:10 BUN 116 mg/dL (7-17) H 03/22/22 04:10 Creatinine 1.6 mg/dL (0.6-1.2) H 03/22/22 04:10 Estimated GFR 33 ml/min 03/22/22 04:10 BUN/Creatinine Ratio 73 % 03/22/22 04:10 Glucose 142 mg/dL (65-100) H 03/22/22 04:10 POC Glucose 95 mg/dL (70-105) 03/21/22 11:58 Osmolality 285 Mosm/kg 03/10/22 12:24 Lactic Acid 0.90 mmol/L (0.7-2.0) 03/18/22 05:20 Uric Acid 1.6 mg/dL (3.5-7.6) L 03/10/22 13:15 Calcium 8.5 mg/dL (8.4-10.2) 03/22/22 04:10 Phosphorus 3.70 mg/dL (2.5-4.5) 03/18/22 05:20 Magnesium 2.00 mg/dL (1.7-2.3) 03/18/22 05:20 Ferritin 219.2 ng/mL (10.0-200.0) H 03/10/22 05:45 Total Bilirubin 0.30 mg/dL (0.1-1.2) 03/18/22 05:20 AST 39 units/L (5-40) 03/18/22 05:20 ALT 14 units/L (7-56) 03/18/22 05:20 Alkaline Phosphatase 119 units/L (35-129) 03/18/22 05:20 Lactate Dehydrogenase 210 units/L (91-180) H 03/10/22 05:45 Total Creatine Kinase 901 units/L (30-135) H 03/10/22 12:24 CK-MB (CK-2) 15.3 ng/mL (0.0-4.0) H 03/10/22 12:24 CK-MB (CK-2) Rel Index 1.6 (0-4) 03/10/22 12:24 Troponin T 0.032 ng/mL (0.00-0.029) H D 03/10/22 12:24 C-Reactive Protein < 0.03 mg/dL (0.00-1.30) 03/10/22 05:45 NT-Pro-B Natriuret Pep 34350 pg/mL (0-900) H 03/10/22 01:25 Total Protein 5.4 g/dL (6.3-8.2) L 03/18/22 05:20 Albumin 2.0 g/dL (3.9-5) L 03/18/22 05:20 Albumin/Globulin Ratio 0.6 % 03/18/22 05:20 Prealbumin 0.044 g/L (0.200-0.400) L 03/12/22 18:40 Triglycerides 47 mg/dL (2-149) 03/10/22 01:25 Cholesterol 259 mg/dL (50-199) H 03/10/22 01:25 LDL Cholesterol Direct 187 mg/dL (50-130) H 03/10/22 01:25 HDL Cholesterol 63 mg/dL (40-59) H 03/10/22 01:25 Cholesterol/HDL Ratio 4.11 % 03/10/22 01:25 Lipase 15 units/L (13-60) 03/10/22 01:25 Vitamin B1 28 nmol/L (8-30) 03/13/22 08:00 Vitamin B12 1021 pg/mL (211-911) H 03/12/22 18:40 Folate 2.15 ng/mL (7.3-26.0) L 03/12/22 18:40 Procalcitonin 3.92 ng/mL (<0.15) 03/10/22 05:45 TSH 1.290 mlU/mL (0.270-4.200) 03/12/22 18:40 Urine Color Yellow (Yellow) 03/10/22 18:20 Urine Turbidity Clear (Clear) 03/10/22 18:20 Urine pH 6.0 (5.0-7.0) 03/10/22 18:20 Ur Specific [place] 1.010 (1.003-1.030) 03/10/22 18:20 Urine Protein <15 mg/dl mg/dL (Negative) 03/10/22 18:20 Urine Glucose (UA) Neg mg/dL (Negative) 03/10/22 18:20 Urine Ketones Tr mg/dL (Negative) 03/10/22 18:20 Urine Blood Sm (Negative) 03/10/22 18:20 Urine Nitrite Neg (Negative) 03/10/22 18:20 Urine Bilirubin Neg (Negative) 03/10/22 18:20 Urine Urobilinogen < 2.0 mg/dL (<2.0) 03/10/22 18:20 Ur Leukocyte Esterase Lg (Negative) 03/10/22 18:20 Urine WBC (Auto) 105.0 /HPF (0.0-6.0) H 03/10/22 18:20 Urine RBC (Auto) 2.0 /HPF (0.0-6.0) 03/10/22 18:20 U Epithel Cells (Auto) < 1.0 /HPF (0-13.0) 03/10/22 18:20 Urine Bacteria (Auto) 1+ /HPF (Negative) 03/10/22 18:20 Urine Osmolality 368 Mosm/kg 03/10/22 18:20 Urine Creatinine 34.4 mg/dL (0.1-20.0) H 03/19/22 14:40 Urine Sodium 18 mmol/L 03/19/22 14:40 Urine Opiates Screen Presumptive positive 03/10/22 18:20 Urine Methadone Screen Presumptive negative 03/10/22 18:20 Ur Barbiturates Screen Presumptive negative 03/10/22 18:20 Ur Phencyclidine Scrn Presumptive negative 03/10/22 18:20 Ur Amphetamines Screen Presumptive negative 03/10/22 18:20 U Benzodiazepines Scrn Presumptive negative 03/10/22 18:20 Urine Cocaine Screen Presumptive negative 03/10/22 18:20 U Marijuana (THC) Screen Presumptive negative 03/10/22 18:20 Drugs of Abuse Note Disclamer 03/10/22 18:20 Copper 118 mcg/dL (70-175) 03/12/22 18:40 Syphilis IgG/IgM Ab Nonreactive (NonReactive) 03/12/22 18:40 SARS-CoV-2 (PCR) Negative (Negative) 03/10/22 09:50 Blood Type O POSITIVE 03/15/22 09:42 Antibody Screen Negative 03/15/22 09:42 Crossmatch See Detail 03/15/22 09:42 Microbiology: Microbiology 03/18/22 Unknown Urine,Catheterized - Indwelling Catheter Urine Culture - Final NO GROWTH AFTER 48 HOURS 03/18/22 15:12 Peripheral/Venous Blood Culture - Preliminary NO GROWTH AFTER 72 HOURS 03/18/22 15:12 Peripheral/Venous Blood Culture - Preliminary NO GROWTH AFTER 72 HOURS [place]/IV: Voiding Method Indwelling Catheter Active Medications - Current Medications Current Medications: Generic Name Dose Route Start Last Admin Trade Name Freq PRN Reason Stop Dose Admin Acetaminophen 650 mg 03/13/22 05:50 03/19/22 18:38 Acetaminophen 325 Mg/10.15 Ml Oral Liqd Unit Dose FEEDTUBE 650 mg Q6H PRN Administration Non Cardiac Pain or Temp>100.5 Bisacodyl 10 mg 03/15/22 10:00 Bisacodyl 5 Mg Tab PO QDAY PRN Constipation Famotidine 10 mg 03/22/22 10:00 03/22/22 09:15 Famotidine 10 Mg Tab FEEDTUBE 10 mg BID SHAHBAZ Administration Fentanyl 50 mcg 03/10/22 10:58 03/14/22 20:48 Fentanyl 100 Mcg/2 Ml Inj IV 50 mcg Q10MIN PRN Administration ANALGESIA Hydrophilic Ointment 1 applic 03/10/22 11:03 Lip Therapy Vaseline TP Q2HR PRN Dry Lips Fentanyl Citrate 2,000 mcg in 100 mls @ 4.16 mls/hr 03/10/22 11:00 03/22/22 09:18 Fentanyl Drip Premix IV 4 mcg/kg/hr TITR SHAHBAZ 16.64 mls/hr Administration Protocol 1 MCG/KG/HR NORepinephrine/NS 8 MG-250 ML 8 mg in 250 mls @ 3.75 mls/hr 03/10/22 11:00 03/21/22 21:35 Norepinephrine/Ns 8 Mg-250 Ml (Double Conc) IV 10 mcg/min TITRATE SHAHBAZ 18.75 mls/hr Administration Protocol 2 MCG/MIN Vasopressin 20 unit/ Sodium 101 mls @ 9.09 mls/hr 03/21/22 15:00 03/22/22 00:03 Chloride IV 0.03 units/min TITR SHAHBAZ 9.09 mls/hr Administration Protocol 0.03 UNITS/MIN Levofloxacin/Dextrose 750 mg in 150 mls @ 100 mls/hr 03/23/22 12:00 Levaquin 750mg/150ml IV 03/27/22 13:29 Q48H SHAHBAZ Protocol Heparin Sodium/Sodium Chloride 25,000 unit in 500 mls @ 24 mls/hr 03/22/22 09:00 03/22/22 09:16 Heparin/ 0.45% Nacl-25,000 Unit/500 Ml IV 1,200 units/hr TITR SHAHBAZ 24 mls/hr Administration Protocol 1,200 UNITS/HR Metronidazole 500 mg in 100 mls @ 100 mls/hr 03/22/22 09:00 03/22/22 09:16 Flagyl 500 Mg/100 Ml IV 100 mls/hr Q8H SHAHBAZ Administration Protocol Levetiracetam 500 mg 03/12/22 10:00 03/22/22 09:15 Levetiracetam 500 Mg/5 Ml Oral Liqd FEEDTUBE 500 mg BID SHAHBAZ Administration Magnesium Hydroxide 30 ml 03/10/22 02:56 Magnesium Hydroxide (Mom) Oral Liqd Udc PO Q4H PRN Constipation Midodrine 15 mg 03/21/22 16:00 03/22/22 11:47 Midodrine 5 Mg Tab PO 15 mg TID@0800,1200,1600 SHAHBAZ Administration Multi-Ingred Cream/Lotion/Oil/Oint 1 applic 03/10/22 11:03 Mineral Oil/Petrolatum, White Ophth Oint 3.5 Gm OU Q4HR PRN Dry Eye(s) Ondansetron HCl 4 mg 03/10/22 02:56 Ondansetron 4 Mg/2 Ml Inj IV Q8H PRN Nausea And Vomiting Scopolamine 1 each 03/21/22 10:00 03/21/22 10:28 Scopolamine Transdermal Patch 72 Hr TD 1 each Q3D SHAHBAZ Administration Sodium Chloride 10 ml 03/10/22 10:00 03/22/22 11:15 Sodium Chloride 0.9% 10 Ml Flush Syringe IV 10 ml BID SHAHBAZ Administration Sodium Chloride 10 ml 03/10/22 02:56 Sodium Chloride 0.9% 10 Ml Flush Syringe IV PRN PRN LINE FLUSH Sodium Polystyrene Sulfonate 30 gm 03/22/22 08:00 03/22/22 07:53 Sodium Polystyrene 15 Gm/60 Ml Oral Liqd PO 03/22/22 12:00 30 gm ONCE@0800 SHAHBAZ Administration Vancomycin HCl 500 mg 03/22/22 12:00 03/22/22 11:47 Vancomycin 250 Mg/10 Ml Oral Liqd PO 500 mg Q6HR SHAHBAZ Administration Protocol Nutrition/Malnutrition Assess - Dietary Evaluation Nutrition/Malnutrition Findings: Nutrition Notes Start: 03/10/22 12:22 Freq: Status: Active Protocol: Document 03/21/22 15:08 JOSH (Rec: 03/21/22 15:18 JOSH [id number]) Nutrition Notes Initial or Follow up Reassessment Current Diagnosis Hypertension,Respiratory Failure,Malnutrition Other Pertinent Diagnosis MS, CAP, Seizure, Metabolic Encephalopathy, Septic Shock, NSTEMI, UTI ... Current Diet TF-Vital AF 1.2 En @ 60 ml/hr (since D 03/10). Labs/Tests 03/21: Na 135, K 5.7, Cl 97.4, CO2 21, BUN 104, Crea 1.3, Glu 118. Pertinent Medications 03/21: Vasopressin 20U, others nutritionally unremarkable. Height 5 ft 6 in Weight 83.2 kg [place] Body Weight (kg) 59.09 BMI 29.6 Weight change and time frame No body weight change reported in 11 days. Weight Status Overweight Subjective/Other Information RD consult for routine F/U on TF tolerance/continuation. TF continues as prescribed, and well tolerated, according to RN notes. Pt remains on Mechanical Ventilation, O2 saturation @ 96%, according to Physical Assessment History notes. Pt presents bilateral-LE pitting edema 3+, according to Physical Assessment History notes. Pt presents an unspecified area of concern for skin risk at the time, according to Physical Assessment History notes. Percent of energy/protein needs met: Prescribed TF-Vital AF 1.2 En @ 60 ml/hr provides for energy/protein needs (1,728 Kcal/108 g) during LOS, 100% Kcal; 100% AA. Burn Absent Trauma Absent GI Symptoms None Food Allergy No Skin Integrity/Comment Unspecified area of concern. 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 Yes Is Patient Ambulatory and/or Out of Bed No REE-([facility]-confined to bed) 1713.168 Calculation Used for Recommendations [facility] Additional Notes Protein: 1-1.2 g/Kg ABW; 100- 166 g/day. Fluids: 1 ml/Kcal, or as per MD. Nutrition Intervention Nutrition Support: Continue TF-Vital AF 1.2 En @ 60 ml/hr. Flush: 100 ml water Q 4 hr, or as per MD. Kcal 1,728 Protein (gm) 108 Carbohydrates (gm) 159 Fat (gm) 78 Fluid (mL) 1,168 Fiber (gm) 7 % RDI: 100% Kcal; 100% AA. Goal #1 Provide at least 75% of energy /protein needs through Enteral Feeding during LOS. Follow-Up By: 03/28/22 Additional Comments Continue monitoring TF tolerance, Ventilation Status, Pressor support, and BM.
[2022-03-19] MEDS ORDERED: SODIUM BICARBONATE 150 MEQ in DEXTROSE 5% IN WATER 1,000 ML IV SCH (16:00)
[2022-03-19 16:43] LABS: Creatinine,Urine 34.4 mg/dL (0.1-20.0)
[2022-03-19] MEDS: ACETAMINOPHEN 325 MG/10.15 ML ORAL LIQD UNIT DOSE FEEDTUBE PRN (18:38)
--- NOTE | 2022-03-20 04:12 | XRay Report ---
XR chest 1V ap INDICATION / CLINICAL INFORMATION: Respiratory Failure. COMPARISON: 03/17/2022 FINDINGS: SUPPORT DEVICES: Unchanged. HEART /PULMONARY VASCULATURE: Unchanged. LUNGS / PLEURA: Slight improvement in pulmonary opacities throughout the right lung. Left mid and low er lung opacities appear similar. No pneumothorax.. IMPRESSION: Slight improvement in airspace disease in the right lung. Otherwise stable. Signer Name: Chaitanya Skaggs MD Signed: 03/20/2022 4:07 AM Workstation Name: [id number]
[2022-03-20] MEDS: MEROPENEM/NS 1 GRAM/100 ML 1 GRAM/100 ML BAG IV SCH ×3 (06:00→22:00)
[2022-03-20 06:12] LABS: Hematocrit 23.7 % (30.3-42.9); Hemoglobin 7.6 gm/dl (10.1-14.3); Mean Corpuscular HGB Conc 32 % (30-34); Mean Corpuscular Volume 86 fl (79-97); Platelet Count 415 K/mm3 (140-440); Red Blood Count 2.76 M/mm3 (3.65-5.03); Red Cell Distribution Width 16.6 % (13.2-15.2)
[2022-03-20 06:20] LABS: Calcium 8.6 mg/dL (8.4-10.2)
[2022-03-20] MEDS: fentaNYL DRIP Premix 2,000 MCG/100 ML BAG IV SCH ×3 (06:33→19:57)
[2022-03-20] MEDS: ENOXAPARIN 40 MG/0.4 ML INJ SUB-Q SCH (09:32)
[2022-03-20] MEDS: levETIRAcetam 500 MG/5 ML ORAL LIQD FEEDTUBE SCH ×2 (09:32→22:00)
[2022-03-20] MEDS: SENNOSIDES/DOCUSATE SODIUM 8.6/50 MG TAB FEEDTUBE SCH (09:33)
[2022-03-20] MEDS: FAMOTIDINE 20 MG TAB FEEDTUBE SCH ×2 (09:34→22:00)
[2022-03-20] MEDS: POLYETHYLENE GLYCOL 3350 17 GM POWDER FEEDTUBE SCH (09:34)
[2022-03-20 10:15] LABS: ABG Base Excess -1.4 mmol/L (-2.0-3.0); ABG HCO3 25.6 mmol/L (20.0-26.0); ABG Methemoglobin 0.5 % (0.0-1.5); ABG Oxygen Saturation 92.6 % (95.0-99.0); ABG PH 7.278 pH Units (7.350-7.450)
--- NOTE | 2022-03-20 11:10 | Progress Note ---
Assessment and Plan Cultures: 03/10/2022 blood culture: No growth 03/10/2022 sputum culture: Usual respiratory shital 03/14/2022 urine culture: No growth 03/18/2022 blood culture: No growth 03/18/2022 tracheal aspirate culture: In process COVID-19 PCR: Negative A/P: 61-year-old female past medical history of multiple sclerosis, seizures now with: #Septic shock, likely secondary to bilateral pneumonia #Acute hypoxic respiratory failure: On vent #Bilateral pneumonia: Cultures without any particular pathogen isolated. #Multiple sclerosis #Possible UTI: UA did show pyuria on admission, culture without any significant growth Recs: -Continue IV meropenem, complete 7 days -Added levofloxacin 750 mg daily for 5 days, d/w pharmacy -guarded prognosis Gabrielle Vásquez MD, FACP, [facility] O: [phone] F: [phone] C: [phone] Subjective Date of service: 03/20/22 Principal diagnosis: AHRF; Multifocal Pneumonia; Septic shock; NSTEMI; AMS; Seizures Interval history: No fever for the last 2 days. Remains intubated, on the vent. CXR with some improvement in airspace disease. Objective - Exam Narrative Exam: Physical Exam: Constitutional: sedated, intubated, on the vent Head, Ears, Nose: Normocephalic, atraumatic. External ears, nose normal Eyes: Conjunctivae/corneas clear. No icterus. No ptosis. Neck: intubated Oral: intubated Cardiovascular: S1, S2 + Respiratory: AE fair bilaterally and equal GI: Soft, bowel sounds + Musculoskeletal: No pedal edema, no cyanosis. Skin: No rash or abscess Hem/Lymphatic: No palpable cervical or supraclavicular nodes. No lymphangitis Psych: no agitation Neurological: sedated, intubated, on the vent, exam limited - Constitutional Vitals: Vital Signs Temp Pulse Resp BP Pulse Ox 98.0 F 95 H 18 92/58 97 03/20/22 07:10 03/20/22 10:00 03/20/22 10:00 03/20/22 10:00 03/20/22 10:00 Temperature -Last 24 Hours Temperature 98.0 F - Labs CBC & Chem 7: 03/20/22 05:20 03/20/22 05:20 Labs: Abnormal lab results 03/19/22 03/19/22 03/19/22 Range/Units 14:40 14:40 18:37 WBC (4.5-11.0) K/mm3 RBC (3.65-5.03) M/mm3 Hgb (10.1-14.3) gm/dl Hct (30.3-42.9) % MCH (28-32) pg RDW (13.2-15.2) % ABG pH 7.337 L (7.350-7.450) pH Units ABG pO2 41.2 L (80.0-90.0) mm Hg ABG O2 Saturation 74.8 L (95.0-99.0) % ABG Base Excess -4.5 L (-2.0-3.0) mmol/L ABG Hemoglobin 7.9 L (12.0-16.0) gm/dl Oxyhemoglobin 72.9 L (95.0-99.0) % BUN (7-17) mg/dL Glucose (65-100) mg/dL POC Glucose 120 H (70-105) mg/dL Urine Creatinine 34.4 H (0.1-20.0) mg/dL 03/19/22 03/20/22 03/20/22 Range/Units 23:15 05:20 05:20 WBC 29.5 H (4.5-11.0) K/mm3 RBC 2.76 L (3.65-5.03) M/mm3 Hgb 7.6 L (10.1-14.3) gm/dl Hct 23.7 L (30.3-42.9) % MCH 27 L (28-32) pg RDW 16.6 H (13.2-15.2) % ABG pH (7.350-7.450) pH Units ABG pO2 (80.0-90.0) mm Hg ABG O2 Saturation (95.0-99.0) % ABG Base Excess (-2.0-3.0) mmol/L ABG Hemoglobin (12.0-16.0) gm/dl Oxyhemoglobin (95.0-99.0) % BUN 96 H (7-17) mg/dL Glucose 141 H (65-100) mg/dL POC Glucose 125 H (70-105) mg/dL Urine Creatinine (0.1-20.0) mg/dL 03/20/22 03/20/22 Range/Units 06:09 10:05 WBC (4.5-11.0) K/mm3 RBC (3.65-5.03) M/mm3 Hgb (10.1-14.3) gm/dl Hct (30.3-42.9) % MCH (28-32) pg RDW (13.2-15.2) % ABG pH 7.278 L (7.350-7.450) pH Units ABG pO2 71.0 L (80.0-90.0) mm Hg ABG O2 Saturation 92.6 L (95.0-99.0) % ABG Base Excess (-2.0-3.0) mmol/L ABG Hemoglobin 8.2 L (12.0-16.0) gm/dl Oxyhemoglobin 90.5 L (95.0-99.0) % BUN (7-17) mg/dL Glucose (65-100) mg/dL POC Glucose 121 H (70-105) mg/dL Urine Creatinine (0.1-20.0) mg/dL - Imaging and cardiology Chest x-ray: report reviewed, image reviewed (CXR with some improvement in airspace disease.)
--- NOTE | 2022-03-20 12:49 | Progress Note ---
<KITTY MICHELLE - Last Filed: 03/20/22 20:52> Assessment and Plan Assessment and plan: This is a 61-year-old female with known past medical history of Multiple Sclerosis and seizure disorder admitted for sepsis, Hyponatremia, and acute hypoxic respiratory failure requiring ventilatory support Hospital Course to Date: 03/10: S/p intubation this am due to tachypnea and worsen mental status. Current sedated and stable on the vent. Patient is now on low dose Levophed gtt due to hypotension. Presented with a Na level of 119, on continuous NS at 125ml, repeat BMP pending. Continue IVF hydration and serial Na Q6hrs. Nephrology is also following. Continue empiric IV Abx for CAP, COVID PCR pending, ID consult pending. D-Dimer also elevated, BLE doppler ordered, therapeutic Lovenox initiated. D/W CCM patient is too unstable for transport at this time, possible CTA chest in the am or once patient is more stable. Cardiology was also consulted for elevated troponin X2, EKG noted with no significant ST changes, 2D echo pending. Resume home AEDs, continue seizure precautions. Monitor and repla ce electrolytes as needed 03/11: Intubated and low dose fentanyl gtt. Open eyes spontaneously but does not track, not following commands. NA level 132 this am, Nabcarb gtt initiated per Nephro. CT head/brain w/o con ordered to r/o intracranial abnormality. Wean off sedation to better assess mental status. Remains on Levophed gtt, afebrile, but with leukocytosis this am. This am CXR and ABG noted, with significant improvement. D/w CCM, PE less likely will hold off on CTA chest for now. Lovenox switched to Qday. Continue empiric IV Abx, ID consult pending. 03/12: Discontinue bicarb gtt, replete phos and potassium, added miralax. Remain on levo and fent gtt 03/13: MRI brain/C-spine completed, EEG completed. Hyponatremia improved, patient remains on Levophed. Had a temperature of 101.3 remains on cefepime. Will defer to ID for abx. Will reculture on next temperature spike. 03/14: Overnight patient had hypoxia issues and FiO2 was increased to 100%, received lasix with repeat dose in AM. Hypotension and increase in levophed. Replete K. 03/15: hypoxia overnight and currently on 100%. RN attempted to lay flat and patient desatted to 88%. Will attempt again later today. Given lasix again. Hopeful to be able to have MRI today. Type and screen today for downtrending h/h, Wean FiO2 as tolerated, repelted phos with sodium phos. 03/16: hypoxic, fio2: 80%, desats on positional movements. Remains on levophed gtt, attempting to wean off. Remains too unstable for MRI brain. May benefit f rom steroids if altered mentation believed to be from MS flare. 03/17: Hypoxic overnight. FIO2 increased to 95%. Continue icu level supportive care with vent, levophed Gtt, merrem. Hgb 6.6 this AM, ordered 1 unit prbc. 03/18: WBC uptrending, persisting fevers. will re-culture with urine cx, sputum cx and bcx. Overall poor prognosis. Will attempt GOK discussion with family. 03/19: With persistent episodes of hypoxia overnight and this am. On 65% Fio2 and peep of 14 this am. Fevers improved, but leukocytosis worsen this am. Repeat cultures pending, continue current IV Abx per ID. Patient remains on Levophed gtt. X1 dose of kayexalate this am for hyperkalemia, worsening azotemia also noted, Nephrology is also following. Overall poor prognosis, possible GOC discussion with patient's son sometimes this week. 03/20: Up to 80% Fio2 and peep of 14 this am, still with periods of hypoxia with mild stimuli/movement. Severe generalized edema today with worsening CXR. Azotemia worsen s/p bcarb gtt. D/w Nephro, X1 dose of IV lasix and 25% Albumin given and Midodrine TID added. Overal poor prognosis. Possible GOC discussion with patient's son sometimes this week. Assessment and Plan #ARDS #Acute Hypoxemic Respiratory Failure #Multifocal Pneumonia/CAP - Brought in from home by EMS due to SOB and difficulty breathing - SPO2 was in the 50s on RA, placed on CPAP. Then Bipap in the ED - Chest x-ray was concerning for multifocal pneumonia. - Patient intubated on 03/10 due to tachypnea and worsen mental - Now in ARDS, frequent desaturations and hypoxia overnight and this am - Vent setting: PRVC-80%,14,14, 400 - This am ABG noted - X1 dose of Iv lasix with 25% Albumin administered - CCM consulted, appreciate recommendations - Continue empiric IV Abx - VAP bundle addressed - Aspiration precaution HOB above 30 - Daily SBT and SAT trials as tolerated - Daily ABG and CXR - Continue SPO2 monitoring for SPO2 goal above 92% #Hypotension 2/2 #Septic Shock #NSTEMI/Elevated Troponin #Elevated BNP - Presented with hypotension now on low dose pressors-Levophed - Positive troponin X2, EKG noted with no significant ST changed - BNP 34945 on admit - remains on Levophed gtt this am - Midodrine added TID - 2D Echo LVEF 50%, no pulmonary HTN. See report for details - With generalized pitting edema, s/p IV lasix X3days - X1 dose of IV lasix with 25% Albumin given - Cardiology consulted, appreciated recommendations - Continue blood pressure monitor per protocol - Titrate pressor to maintain MAP above 65 - VTE phroph- Lovenox SubQ #Azotemia #Severe Hyponatremia- improved #Hypokalemia-resolved - Presented with a Na level of 119 - Probably due to dehydration - S/p IVF hydrationa and Bicarb gtt - S/p X3 dose of IV lasix, additional Lasix today - Now with worsening azotemia, unchanged post bcarb - Nephrology consulted, appreciate recommendations - Strict intake and output - Avoid nephrotoxic medications - Monitor and replace electrolytes as needed #Septic Shock #Multifocal Pneumonia/CAP #Leukocytosis #Lactic Acidosis-resolved - Brought in from home by EMS due to SOB and difficulty breathing, Hypotensive, with elevated lactic acid, WBCs wnr - Chest x-ray was concerning for multifocal pneumonia - COVID PCR negative - UA with elevated Wbcs - urine and blood cultures with NGTD - CRP unremarkable, procal noted - Sudheer temp yesterday and was recultures. Cultures pending - ID consulted, appreciate recommendations - IV Abx was escalated to meropenem an levaquin per ID - F/U on cultures - Continue to CBC #Acute Metabolic Encephalopathy #H/o Multiple Sclerosis and Seizure Disorder - Intubated and sedated, on fentanyl gtt - CT head shows vascular angioplasty without clear evidence of acute intracranial hemorrhage - MRI brain with and without contrast and MRI C-spine with and without contrast pending, patient is too unstable for transportation - EEG considered abnormal and is compatible with diffuse encephalopathy of perhaps significant brain sedation or neuro active medication or daily combination of both. Absence of epileptiform abnormality but would not rule out possibility of epilepsy - UDS (+) for opiates - Resumed home Jae - Neurology consulted, appreciate recommendations - Avoid benzodiazepine to reduce the possibility of delirium - Titrate sedation for RASS goal 0 to -1 - PRN Analgesia for CPOT greater than 3 - Maintenance of sleep-wake cycle - Seizure precaution #Elevated D-Dimer - COVID PCR negative - BLE [place] negative DVT - on Lovenox SubQ #Moderate Protein Calorie Malnutrition - DHT inserted - Initiated enteral nutrition - Nutrition consulted #GI/DVT Prophylaxis - PPI- Pepcid - Lovenox SubQ - SCDs to bilateral lower extremities while in bed #Advance Care Planning - Disease education data, care plan, diagnoses, and prognosis discussed with patient's son Homar Bailey #[phone]. All questions and concerns were addressed at this time. Patient's son acknowledged understanding and agreement with current care plan. Patient is a FULL code. The high probability of a clinically significant, sudden or life threatening deterioration of the [multiple] system(s) required my full and direct attention, intervention and personal management. The aggregate critical care time was [60] minutes. This time is in addition to time spent performing reported procedures but includes the following: [x] Data Review and interpretation [x] Patient assessment and monitoring of vital signs [x] Documentation [x] Medication orders and management Disposition Plan: ICU Total Time Spent with Patient (Minutes): 60 History Interval history: Patient seen and examined at the bedside. Intubated and sedated. Remains on Levophed gtt. Still with periods of hypoxia with mild stimuli. Patient is c urrently on 80% Fio2 and 14 peep. Hospitalist Physical - Constitutional Vitals: Temp Pulse Resp BP Pulse Ox 98.6 F 95 H 19 85/55 96 03/20/22 12:09 03/20/22 12:08 03/20/22 12:00 03/20/22 12:00 03/20/22 11:00 General appearance: Present: no acute distress, other (sedated, intubated) - EENT Eyes: Present: PERRL - Respiratory Respiratory effort: accessory muscle use Respiratory: bilateral: rhonchi, wheezing - Cardiovascular Rhythm: regular Heart Sounds: Present: S1 & S2 - Extremities Extremities: no ischemia, pulses intact, pulses symmetrical Extremity abnormal: edema - Peripheral Assessment Generalized Edema Type: Pitting Edema Degree: 3+ Capillary Refill: < 3 seconds Skin Temperature: Warm Peripheral Pulses: within normal limits - Abdominal General gastrointestinal: soft, non-distended, normal bowel sounds - Integumentary Integumentary: Present: warm, dry - Psychiatric Psychiatric: other (Intubated and sedated) - Neurologic Neurologic: other (Intubated and sedated) - Allied Health Allied health notes reviewed: nursing, case management HEART Score - HEART Score Troponin: Troponin T 0.032 ng/mL (0.00-0.029) H D 03/10/22 12:24 Results - Labs CBC & Chem 7: 03/20/22 05:20 03/20/22 05:20 Labs: Laboratory Last Values WBC 29.5 K/mm3 (4.5-11.0) H 03/20/22 05:20 RBC 2.76 M/mm3 (3.65-5.03) L 03/20/22 05:20 Hgb 7.6 gm/dl (10.1-14.3) L 03/20/22 05:20 Hct 23.7 % (30.3-42.9) L 03/20/22 05:20 MCV 86 fl (79-97) 03/20/22 05:20 MCH 27 pg (28-32) L 03/20/22 05:20 MCHC 32 % (30-34) 03/20/22 05:20 RDW 16.6 % (13.2-15.2) H 03/20/22 05:20 Plt Count 415 K/mm3 (140-440) 03/20/22 05:20 Lymph % (Auto) 8.9 % (13.4-35.0) L 03/11/22 05:00 [place] % (Auto) 4.2 % (0.0-7.3) 03/11/22 05:00 Eos % (Auto) 0.1 % (0.0-4.3) 03/11/22 05:00 Baso % (Auto) 0.2 % (0.0-1.8) 03/11/22 05:00 Lymph # (Auto) 1.2 K/mm3 (1.2-5.4) 03/11/22 05:00 [place] # (Auto) 0.6 K/mm3 (0.0-0.8) 03/11/22 05:00 Eos # (Auto) 0.0 K/mm3 (0.0-0.4) 03/11/22 05:00 Baso # (Auto) 0.0 K/mm3 (0.0-0.1) 03/11/22 05:00 Add Manual Diff Complete 03/18/22 05:20 Total Counted 200 03/18/22 05:20 Seg Neutrophils % 86.6 % (40.0-70.0) H 03/11/22 05:00 Seg Neuts % (Manual) 89.0 % (40.0-70.0) H 03/18/22 05:20 Band Neutrophils % 0 % 03/18/22 05:20 Lymphocytes % (Manual) 7.5 % (13.4-35.0) L 03/18/22 05:20 Reactive Lymphs % (Man) 0 % 03/18/22 05:20 Monocytes % (Manual) 3.0 % (0.0-7.3) 03/18/22 05:20 Eosinophils % (Manual) 0.5 % (0.0-4.3) 03/18/22 05:20 Basophils % (Manual) 0 % (0.0-1.8) 03/18/22 05:20 Metamyelocytes % 0 % 03/18/22 05:20 Myelocytes % 0 % 03/18/22 05:20 Promyelocytes % 0 % 03/18/22 05:20 Blast Cells % 0 % 03/18/22 05:20 Nucleated RBC % Not Reportable 03/18/22 05:20 Seg Neutrophils # 11.8 K/mm3 (1.8-7.7) H 03/11/22 05:00 Seg Neutrophils # Man 21.3 K/mm3 (1.8-7.7) H 03/18/22 05:20 Band Neutrophils # 0.0 K/mm3 03/18/22 05:20 Lymphocytes # (Manual) 1.8 K/mm3 (1.2-5.4) 03/18/22 05:20 Abs React Lymphs (Man) 0.0 K/mm3 03/18/22 05:20 Monocytes # (Manual) 0.7 K/mm3 (0.0-0.8) 03/18/22 05:20 Eosinophils # (Manual) 0.1 K/mm3 (0.0-0.4) 03/18/22 05:20 Basophils # (Manual) 0.0 K/mm3 (0.0-0.1) 03/18/22 05:20 Metamyelocytes # 0.0 K/mm3 03/18/22 05:20 Myelocytes # 0.0 K/mm3 03/18/22 05:20 Promyelocytes # 0.0 K/mm3 03/18/22 05:20 Blast Cells # 0.0 K/mm3 03/18/22 05:20 WBC Morphology Not Reportable 03/18/22 05:20 Hypersegmented Neuts Not Reportable 03/18/22 05:20 Hyposegmented Neuts Not Reportable 03/18/22 05:20 Hypogranular Neuts Not Reportable 03/18/22 05:20 Smudge Cells Not Reportable 03/18/22 05:20 Toxic Granulation Not Reportable 03/18/22 05:20 Toxic Vacuolation Not Reportable 03/18/22 05:20 Dohle Bodies Not Reportable 03/18/22 05:20 Pelger-Huet Anomaly Not Reportable 03/18/22 05:20 Luis Rods Not Reportable 03/18/22 05:20 Platelet Estimate Consistent w auto 03/18/22 05:20 Clumped Platelets Not Reportable 03/18/22 05:20 Plt Clumps, EDTA Not Reportable 03/18/22 05:20 Large Platelets Not Reportable 03/18/22 05:20 Giant Platelets Not Reportable 03/18/22 05:20 Platelet Satelliting Not Reportable 03/18/22 05:20 Plt Morphology Comment Not Reportable 03/18/22 05:20 RBC Morphology Not Reportable 03/18/22 05:20 Dimorphic RBCs Not Reportable 03/18/22 05:20 Polychromasia Not Reportable 03/18/22 05:20 Hypochromasia 1+ 03/18/22 05:20 Poikilocytosis Not Reportable 03/18/22 05:20 Anisocytosis 1+ 03/18/22 05:20 Microcytosis Not Reportable 03/18/22 05:20 Macrocytosis Not Reportable 03/18/22 05:20 Spherocytes Not Reportable 03/18/22 05:20 Pappenheimer Bodies Not Reportable 03/18/22 05:20 Sickle Cells Not Reportable 03/18/22 05:20 Target Cells Few 03/18/22 05:20 Tear Drop Cells Not Reportable 03/18/22 05:20 Ovalocytes Not Reportable 03/18/22 05:20 Helmet Cells Not Reportable 03/18/22 05:20 [place] Bodies Not Reportable 03/18/22 05:20 [place] Rings Not Reportable 03/18/22 05:20 [place] Cells Not Reportable 03/18/22 05:20 Bite Cells Not Reportable 03/18/22 05:20 Crenated Cell Not Reportable 03/18/22 05:20 Elliptocytes Not Reportable 03/18/22 05:20 Acanthocytes (Spur) Not Reportable 03/18/22 05:20 Rouleaux Not Reportable 03/18/22 05:20 Hemoglobin C Crystals Not Reportable 03/18/22 05:20 Schistocytes Not Reportable 03/18/22 05:20 Malaria parasites Not Reportable 03/18/22 05:20 Tani Bodies Not Reportable 03/18/22 05:20 Hem Pathologist Commnt No 03/18/22 05:20 PT 14.9 Sec. (12.2-14.9) 03/10/22 01:25 INR 1.03 (0.87-1.13) 03/10/22 01:25 D-Dimer 787.78 ng/mlDDU (0-234) H 03/10/22 05:45 ABG pH 7.278 pH Units (7.350-7.450) L 03/20/22 10:05 ABG pCO2 56.0 mm Hg 03/20/22 10:05 ABG pO2 71.0 mm Hg (80.0-90.0) L 03/20/22 10:05 ABG HCO3 25.6 mmol/L (20.0-26.0) 03/20/22 10:05 ABG O2 Saturation 92.6 % (95.0-99.0) L 03/20/22 10:05 ABG O2 Content 10.6 (0.0-44) 03/20/22 10:05 ABG Base Excess -1.4 mmol/L (-2.0-3.0) 03/20/22 10:05 ABG Hemoglobin 8.2 gm/dl (12.0-16.0) L 03/20/22 10:05 ABG Carboxyhemoglobin 1.9 % (0.0-5.0) 03/20/22 10:05 ABG Methemoglobin 0.5 % (0.0-1.5) 03/20/22 10:05 Oxyhemoglobin 90.5 % (95.0-99.0) L 03/20/22 10:05 FiO2 80 % 03/20/22 10:05 Sodium 141 mmol/L (137-145) D 03/20/22 05:20 Potassium 4.6 mmol/L (3.6-5.0) 03/20/22 05:20 Chloride 102.1 mmol/L (98-107) 03/20/22 05:20 Carbon Dioxide 24 mmol/L (22-30) 03/20/22 05:20 Anion Gap 20 mmol/L 03/20/22 05:20 BUN 96 mg/dL (7-17) H 03/20/22 05:20 Creatinine 1.0 mg/dL (0.6-1.2) 03/20/22 05:20 Estimated GFR 57 ml/min 03/20/22 05:20 BUN/Creatinine Ratio 96 % 03/20/22 05:20 Glucose 141 mg/dL (65-100) H 03/20/22 05:20 POC Glucose 121 mg/dL (70-105) H 03/20/22 06:09 Osmolality 285 Mosm/kg 03/10/22 12:24 Lactic Acid 0.90 mmol/L (0.7-2.0) 03/18/22 05:20 Uric Acid 1.6 mg/dL (3.5-7.6) L 03/10/22 13:15 Calcium 8.6 mg/dL (8.4-10.2) 03/20/22 05:20 Phosphorus 3.70 mg/dL (2.5-4.5) 03/18/22 05:20 Magnesium 2.00 mg/dL (1.7-2.3) 03/18/22 05:20 Ferritin 219.2 ng/mL (10.0-200.0) H 03/10/22 05:45 Total Bilirubin 0.30 mg/dL (0.1-1.2) 03/18/22 05:20 AST 39 units/L (5-40) 03/18/22 05:20 ALT 14 units/L (7-56) 03/18/22 05:20 Alkaline Phosphatase 119 units/L (35-129) 03/18/22 05:20 Lactate Dehydrogenase 210 units/L (91-180) H 03/10/22 05:45 Total Creatine Kinase 901 units/L (30-135) H 03/10/22 12:24 CK-MB (CK-2) 15.3 ng/mL (0.0-4.0) H 03/10/22 12:24 CK-MB (CK-2) Rel Index 1.6 (0-4) 03/10/22 12:24 Troponin T 0.032 ng/mL (0.00-0.029) H D 03/10/22 12:24 C-Reactive Protein < 0.03 mg/dL (0.00-1.30) 03/10/22 05:45 NT-Pro-B Natriuret Pep 74495 pg/mL (0-900) H 03/10/22 01:25 Total Protein 5.4 g/dL (6.3-8.2) L 03/18/22 05:20 Albumin 2.0 g/dL (3.9-5) L 03/18/22 05:20 Albumin/Globulin Ratio 0.6 % 03/18/22 05:20 Prealbumin 0.044 g/L (0.200-0.400) L 03/12/22 18:40 Triglycerides 47 mg/dL (2-149) 03/10/22 01:25 Cholesterol 259 mg/dL (50-199) H 03/10/22 01:25 LDL Cholesterol Direct 187 mg/dL (50-130) H 03/10/22 01:25 HDL Cholesterol 63 mg/dL (40-59) H 03/10/22 01:25 Cholesterol/HDL Ratio 4.11 % 03/10/22 01:25 Lipase 15 units/L (13-60) 03/10/22 01:25 Vitamin B1 28 nmol/L (8-30) 03/13/22 08:00 Vitamin B12 1021 pg/mL (211-911) H 03/12/22 18:40 Folate 2.15 ng/mL (7.3-26.0) L 03/12/22 18:40 Procalcitonin 3.92 ng/mL (<0.15) 03/10/22 05:45 TSH 1.290 mlU/mL (0.270-4.200) 03/12/22 18:40 Urine Color Yellow (Yellow) 03/10/22 18:20 Urine Turbidity Clear (Clear) 03/10/22 18:20 Urine pH 6.0 (5.0-7.0) 03/10/22 18:20 Ur Specific [place] 1.010 (1.003-1.030) 03/10/22 18:20 Urine Protein <15 mg/dl mg/dL (Negative) 03/10/22 18:20 Urine Glucose (UA) Neg mg/dL (Negative) 03/10/22 18:20 Urine Ketones Tr mg/dL (Negative) 03/10/22 18:20 Urine Blood Sm (Negative) 03/10/22 18:20 Urine Nitrite Neg (Negative) 03/10/22 18:20 Urine Bilirubin Neg (Negative) 03/10/22 18:20 Urine Urobilinogen < 2.0 mg/dL (<2.0) 03/10/22 18:20 Ur Leukocyte Esterase Lg (Negative) 03/10/22 18:20 Urine WBC (Auto) 105.0 /HPF (0.0-6.0) H 03/10/22 18:20 Urine RBC (Auto) 2.0 /HPF (0.0-6.0) 03/10/22 18:20 U Epithel Cells (Auto) < 1.0 /HPF (0-13.0) 03/10/22 18:20 Urine Bacteria (Auto) 1+ /HPF (Negative) 03/10/22 18:20 Urine Osmolality 368 Mosm/kg 03/10/22 18:20 Urine Creatinine 34.4 mg/dL (0.1-20.0) H 03/19/22 14:40 Urine Sodium 18 mmol/L 03/19/22 14:40 Urine Opiates Screen Presumptive positive 03/10/22 18:20 Urine Methadone Screen Presumptive negative 03/10/22 18:20 Ur Barbiturates Screen Presumptive negative 03/10/22 18:20 Ur Phencyclidine Scrn Presumptive negative 03/10/22 18:20 Ur Amphetamines Screen Presumptive negative 03/10/22 18:20 U Benzodiazepines Scrn Presumptive negative 03/10/22 18:20 Urine Cocaine Screen Presumptive negative 03/10/22 18:20 U Marijuana (THC) Screen Presumptive negative 03/10/22 18:20 Drugs of Abuse Note Disclamer 03/10/22 18:20 Copper 118 mcg/dL (70-175) 03/12/22 18:40 Syphilis IgG/IgM Ab Nonreactive (NonReactive) 03/12/22 18:40 SARS-CoV-2 (PCR) Negative (Negative) 03/10/22 09:50 Blood Type O POSITIVE 03/15/22 09:42 Antibody Screen Negative 03/15/22 09:42 Crossmatch See Detail 03/15/22 09:42 Microbiology: Microbiology 03/18/22 17:40 Tracheal Aspirate Sputum Culture - Preliminary 03/18/22 15:12 Peripheral/Venous Blood Culture - Preliminary NO GROWTH AFTER 24 HOURS 03/18/22 15:12 Peripheral/Venous Blood Culture - Preliminary NO GROWTH AFTER 24 HOURS [place]/IV: Voiding Method Indwelling Catheter Active Medications - Current Medications Current Medications: Generic Name Dose Route Start Last Admin Trade Name Freq PRN Reason Stop Dose Admin Acetaminophen 650 mg 03/13/22 05:50 03/19/22 18:38 Acetaminophen 325 Mg/10.15 Ml Oral Liqd Unit Dose FEEDTUBE 650 mg Q6H PRN Administration Non Cardiac Pain or Temp>100.5 Bisacodyl 10 mg 03/15/22 10:00 Bisacodyl 5 Mg Tab PO QDAY PRN Constipation Enoxaparin Sodium 40 mg 03/12/22 10:00 03/20/22 09:32 Enoxaparin 40 Mg/0.4 Ml Inj SUB-Q 40 mg QDAY@1000 SHAHBAZ Administration Protocol Famotidine 20 mg 03/12/22 10:00 03/20/22 09:34 Famotidine 20 Mg Tab FEEDTUBE 20 mg BID SHAHBAZ Administration Fentanyl 50 mcg 03/10/22 10:58 03/14/22 20:48 Fentanyl 100 Mcg/2 Ml Inj IV 50 mcg Q10MIN PRN Administration ANALGESIA Hydrophilic Ointment 1 applic 03/10/22 11:03 Lip Therapy Vaseline TP Q2HR PRN Dry Lips Fentanyl Citrate 2,000 mcg in 100 mls @ 4.16 mls/hr 03/10/22 11:00 03/20/22 07:08 Fentanyl Drip Premix IV 3 mcg/kg/hr TITR SHAHBAZ 12.48 mls/hr Titration Protocol 1 MCG/KG/HR NORepinephrine/NS 8 MG-250 ML 8 mg in 250 mls @ 3.75 mls/hr 03/10/22 11:00 03/19/22 10:00 Norepinephrine/Ns 8 Mg-250 Ml (Double Conc) IV 3 mcg/min TITRATE SHAHBAZ 5.625 mls/hr Titration Protocol 2 MCG/MIN Meropenem/Sodium Chloride 1 gram in 100 mls @ 100 mls/hr 03/14/22 22:00 03/20/22 06:00 Merrem/Ns 1 Gram/100 Ml IV 100 mls/hr Q8H SHAHBAZ Administration Protocol Sodium Bicarbonate 150 meq/ 1,150 mls @ 75 mls/hr 03/19/22 16:00 03/19/22 17:30 Dextrose IV 03/21/22 07:19 75 mls/hr DIRECT SHAHBAZ Administration Levofloxacin/Dextrose 750 mg in 150 mls @ 100 mls/hr 03/20/22 12:00 03/20/22 11:31 Levaquin 750mg/150ml IV 03/25/22 11:59 100 mls/hr Q24H SHAHBAZ Administration Protocol Levetiracetam 500 mg 03/12/22 10:00 03/20/22 09:32 Levetiracetam 500 Mg/5 Ml Oral Liqd FEEDTUBE 500 mg BID SHAHBAZ Administration Magnesium Hydroxide 30 ml 03/10/22 02:56 Magnesium Hydroxide (Mom) Oral Liqd Udc PO Q4H PRN Constipation Multi-Ingred Cream/Lotion/Oil/Oint 1 applic 03/10/22 11:03 Mineral Oil/Petrolatum, White Ophth Oint 3.5 Gm OU Q4HR PRN Dry Eye(s) Ondansetron HCl 4 mg 03/10/22 02:56 Ondansetron 4 Mg/2 Ml Inj IV Q8H PRN Nausea And Vomiting Polyethylene Glycol 17 gm 03/12/22 10:00 03/20/22 09:34 Polyethylene Glycol 3350 17 Gm Powder FEEDTUBE Not Given QDAY SHAHBAZ Scopolamine 1 each 03/21/22 10:00 Scopolamine Transdermal Patch 72 Hr TD Q3D SHAHBAZ Senna/Docusate Sodium 2 tab 03/14/22 10:00 03/20/22 09:33 Sennosides/Docusate Sodium 8.6/50 Mg Tab FEEDTUBE Not Given Q12H SHAHBAZ Sodium Chloride 10 ml 03/10/22 10:00 03/20/22 09:34 Sodium Chloride 0.9% 10 Ml Flush Syringe IV 10 ml BID SHAHBAZ Administration Sodium Chloride 10 ml 03/10/22 02:56 Sodium Chloride 0.9% 10 Ml Flush Syringe IV PRN PRN LINE FLUSH Nutrition/Malnutrition Assess - Dietary Evaluation Nutrition/Malnutrition Findings: Nutrition Notes Start: 03/10/22 12:22 Freq: Status: Active Protocol: Document 03/14/22 12:08 JOSH (Rec: 03/14/22 12:31 JOSH [email or web address]) Nutrition Notes Initial or Follow up Brief Note Current Diagnosis Sepsis,Hypertension, Respiratory Failure, Malnutrition Other Pertinent Diagnosis MS, CAP, Seizure, Metabolic Encephalopathy, Hyponatremia, Hypokalemia, ... Current Diet TF-Vital AF 1.2 En @ 60 ml/hr (since D 03/10). Height 5 ft 6 in Weight 83.2 kg [place] Body Weight (kg) 59.09 BMI 29.6 Weight change and time frame No body weight change reported in 4 days. Weight Status Overweight Subjective/Other Information RD consult for routine F/U on TF tolerance/continuation. TF continues as prescribed, and well tolerated, according to RN notes. Pt remains on Mechanical Ventilation, O2 saturation @ 97%, according to Physical Assessment History notes. Pt presents an unspecified area of concern for skin risk with redness and flakiness, according to Physical Assessment History notes. Percent of energy/protein needs met: Prescribed TF-Vital AF 1.2 En @ 60 ml/hr provides for energy/protein needs (1,728 Kcal/108 g) during LOS, 100% Kcal; 100% AA. #1 Nutrition Diagnosis Inadequate oral intake Diagnosis Progress(for reassessment Continues documentation) Is patient on ventilator? Yes Is Patient Ambulatory and/or Out of Bed No REE-([place]-St. Jeor-confined to bed) 1713.168 Calculation Used for Recommendations [place] Jeor Additional Notes Protein: 1-1.2 g/Kg ABW; 100- 166 g/day. Fluids: 1 ml/Kcal, or as per MD. Nutrition Intervention Nutrition Support: Continue TF-Vital AF 1.2 En @ 60 ml/hr. Flush: 100 ml water Q 4 hr, or as per MD. Kcal 1,728 Protein (gm) 108 Carbohydrates (gm) 159 Fat (gm) 78 Fluid (mL) 1,168 Fiber (gm) 7 % RDI: 100% Kcal; 100% AA. Goal #1 Provide at least 75% of energy /protein needs through Enteral Feeding during LOS. Follow-Up By: 03/21/22 Additional Comments Continue monitoring TF tolerance, Ventilation Status, Pressor support, and BM. <JESUS ARECHIGA - Last Filed: 03/21/22 07:13> Assessment and Plan Assessment and plan: I saw and evaluated the patient. I agree with the findings and the plan of care as documented in the Nurse Practitioner's~note, with the following corrections and additions. Hospitalist Physical - Constitutional Vitals: Temp Pulse Resp BP Pulse Ox 98.7 F 87 16 103/55 83 L 03/21/22 04:00 03/21/22 06:15 03/21/22 06:15 03/21/22 06:15 03/21/22 06:15 HEART Score - HEART Score Troponin: Troponin T 0.032 ng/mL (0.00-0.029) H D 03/10/22 12:24 Results - Labs CBC & Chem 7: 03/21/22 04:40 03/21/22 04:00 Labs: Laboratory Last Values WBC 25.6 K/mm3 (4.5-11.0) H 03/21/22 04:40 RBC 2.61 M/mm3 (3.65-5.03) L 03/21/22 04:40 Hgb 7.3 gm/dl (10.1-14.3) L 03/21/22 04:40 Hct 22.8 % (30.3-42.9) L 03/21/22 04:40 MCV 87 fl (79-97) 03/21/22 04:40 MCH 28 pg (28-32) 03/21/22 04:40 MCHC 32 % (30-34) 03/21/22 04:40 RDW 16.8 % (13.2-15.2) H 03/21/22 04:40 Plt Count 462 K/mm3 (140-440) H 03/21/22 04:40 Lymph % (Auto) 8.9 % (13.4-35.0) L 03/11/22 05:00 [place] % (Auto) 4.2 % (0.0-7.3) 03/11/22 05:00 Eos % (Auto) 0.1 % (0.0-4.3) 03/11/22 05:00 Baso % (Auto) 0.2 % (0.0-1.8) 03/11/22 05:00 Lymph # (Auto) 1.2 K/mm3 (1.2-5.4) 03/11/22 05:00 [place] # (Auto) 0.6 K/mm3 (0.0-0.8) 03/11/22 05:00 Eos # (Auto) 0.0 K/mm3 (0.0-0.4) 03/11/22 05:00 Baso # (Auto) 0.0 K/mm3 (0.0-0.1) 03/11/22 05:00 Add Manual Diff Complete 03/21/22 04:40 Total Counted 100 03/21/22 04:40 Seg Neutrophils % 86.6 % (40.0-70.0) H 03/11/22 05:00 Seg Neuts % (Manual) 71.0 % (40.0-70.0) H 03/21/22 04:40 Band Neutrophils % 12.0 % 03/21/22 04:40 Lymphocytes % (Manual) 2.0 % (13.4-35.0) L 03/21/22 04:40 Reactive Lymphs % (Man) 0 % 03/21/22 04:40 Monocytes % (Manual) 7.0 % (0.0-7.3) 03/21/22 04:40 Eosinophils % (Manual) 3.0 % (0.0-4.3) 03/21/22 04:40 Basophils % (Manual) 0 % (0.0-1.8) 03/21/22 04:40 Metamyelocytes % 3.0 % 03/21/22 04:40 Myelocytes % 0 % 03/21/22 04:40 Promyelocytes % 2.0 % 03/21/22 04:40 Blast Cells % 0 % 03/21/22 04:40 Nucleated RBC % 1.0 % (0.0-0.9) H 03/21/22 04:40 Seg Neutrophils # 11.8 K/mm3 (1.8-7.7) H 03/11/22 05:00 Seg Neutrophils # Man 18.2 K/mm3 (1.8-7.7) H 03/21/22 04:40 Band Neutrophils # 3.1 K/mm3 03/21/22 04:40 Lymphocytes # (Manual) 0.5 K/mm3 (1.2-5.4) L 03/21/22 04:40 Abs React Lymphs (Man) 0.0 K/mm3 03/21/22 04:40 Monocytes # (Manual) 1.8 K/mm3 (0.0-0.8) H 03/21/22 04:40 Eosinophils # (Manual) 0.8 K/mm3 (0.0-0.4) H 03/21/22 04:40 Basophils # (Manual) 0.0 K/mm3 (0.0-0.1) 03/21/22 04:40 Metamyelocytes # 0.8 K/mm3 03/21/22 04:40 Myelocytes # 0.0 K/mm3 03/21/22 04:40 Promyelocytes # 0.5 K/mm3 03/21/22 04:40 Blast Cells # 0.0 K/mm3 03/21/22 04:40 WBC Morphology Not Reportable 03/21/22 04:40 Hypersegmented Neuts Not Reportable 03/21/22 04:40 Hyposegmented Neuts Not Reportable 03/21/22 04:40 Hypogranular Neuts Not Reportable 03/21/22 04:40 Smudge Cells Not Reportable 03/21/22 04:40 Toxic Granulation Not Reportable 03/21/22 04:40 Toxic Vacuolation Not Reportable 03/21/22 04:40 Dohle Bodies Not Reportable 03/21/22 04:40 Pelger-Huet Anomaly Not Reportable 03/21/22 04:40 Luis Rods Not Reportable 03/21/22 04:40 Platelet Estimate Consistent w auto 03/21/22 04:40 Clumped Platelets Not Reportable 03/21/22 04:40 Plt Clumps, EDTA Not Reportable 03/21/22 04:40 Large Platelets Few 03/21/22 04:40 Giant Platelets Not Reportable 03/21/22 04:40 Platelet Satelliting Not Reportable 03/21/22 04:40 Plt Morphology Comment Not Reportable 03/21/22 04:40 RBC Morphology Not Reportable 03/21/22 04:40 Dimorphic RBCs Not Reportable 03/21/22 04:40 Polychromasia Not Reportable 03/21/22 04:40 Hypochromasia 3+ 03/21/22 04:40 Poikilocytosis Not Reportable 03/21/22 04:40 Anisocytosis 1+ 03/21/22 04:40 Microcytosis 1+ 03/21/22 04:40 Macrocytosis Not Reportable 03/21/22 04:40 Spherocytes Not Reportable 03/21/22 04:40 Pappenheimer Bodies Not Reportable 03/21/22 04:40 Sickle Cells Not Reportable 03/21/22 04:40 Target Cells Rare 03/21/22 04:40 Tear Drop Cells Few 03/21/22 04:40 Ovalocytes 1+ 03/21/22 04:40 Helmet Cells Not Reportable 03/21/22 04:40 [place] Bodies Not Reportable 03/21/22 04:40 [place] Rings Not Reportable 03/21/22 04:40 Rudy Cells Not Reportable 03/21/22 04:40 Bite Cells Not Reportable 03/21/22 04:40 Crenated Cell Not Reportable 03/21/22 04:40 Elliptocytes Few 03/21/22 04:40 Acanthocytes (Spur) Not Reportable 03/21/22 04:40 Rouleaux Not Reportable 03/21/22 04:40 Hemoglobin C Crystals Not Reportable 03/21/22 04:40 Schistocytes Few 03/21/22 04:40 Malaria parasites Not Reportable 03/21/22 04:40 Tani Bodies Not Reportable 03/21/22 04:40 Hem Pathologist Commnt No 03/21/22 04:40 PT 14.9 Sec. (12.2-14.9) 03/10/22 01:25 INR 1.03 (0.87-1.13) 03/10/22 01:25 D-Dimer 787.78 ng/mlDDU (0-234) H 03/10/22 05:45 ABG pH 7.278 pH Units (7.350-7.450) L 03/20/22 10:05 ABG pCO2 56.0 mm Hg 03/20/22 10:05 ABG pO2 71.0 mm Hg (80.0-90.0) L 03/20/22 10:05 ABG HCO3 25.6 mmol/L (20.0-26.0) 03/20/22 10:05 ABG O2 Saturation 92.6 % (95.0-99.0) L 03/20/22 10:05 ABG O2 Content 10.6 (0.0-44) 03/20/22 10:05 ABG Base Excess -1.4 mmol/L (-2.0-3.0) 03/20/22 10:05 ABG Hemoglobin 8.2 gm/dl (12.0-16.0) L 03/20/22 10:05 ABG Carboxyhemoglobin 1.9 % (0.0-5.0) 03/20/22 10:05 ABG Methemoglobin 0.5 % (0.0-1.5) 03/20/22 10:05 Oxyhemoglobin 90.5 % (95.0-99.0) L 03/20/22 10:05 FiO2 80 % 03/20/22 10:05 Sodium 135 mmol/L (137-145) L 03/21/22 04:00 Potassium 5.7 mmol/L (3.6-5.0) H D 03/21/22 04:00 Chloride 97.4 mmol/L (98-107) L 03/21/22 04:00 Carbon Dioxide 21 mmol/L (22-30) L 03/21/22 04:00 Anion Gap 22 mmol/L 03/21/22 04:00 BUN 104 mg/dL (7-17) H 03/21/22 04:00 Creatinine 1.3 mg/dL (0.6-1.2) H 03/21/22 04:00 Estimated GFR 42 ml/min 03/21/22 04:00 BUN/Creatinine Ratio 80 % 03/21/22 04:00 Glucose 118 mg/dL (65-100) H 03/21/22 04:00 POC Glucose 104 mg/dL (70-105) 03/21/22 05:09 Osmolality 285 Mosm/kg 03/10/22 12:24 Lactic Acid 0.90 mmol/L (0.7-2.0) 03/18/22 05:20 Uric Acid 1.6 mg/dL (3.5-7.6) L 03/10/22 13:15 Calcium 8.5 mg/dL (8.4-10.2) 03/21/22 04:00 Phosphorus 3.70 mg/dL (2.5-4.5) 03/18/22 05:20 Magnesium 2.00 mg/dL (1.7-2.3) 03/18/22 05:20 Ferritin 219.2 ng/mL (10.0-200.0) H 03/10/22 05:45 Total Bilirubin 0.30 mg/dL (0.1-1.2) 03/18/22 05:20 AST 39 units/L (5-40) 03/18/22 05:20 ALT 14 units/L (7-56) 03/18/22 05:20 Alkaline Phosphatase 119 units/L (35-129) 03/18/22 05:20 Lactate Dehydrogenase 210 units/L (91-180) H 03/10/22 05:45 Total Creatine Kinase 901 units/L (30-135) H 03/10/22 12:24 CK-MB (CK-2) 15.3 ng/mL (0.0-4.0) H 03/10/22 12:24 CK-MB (CK-2) Rel Index 1.6 (0-4) 03/10/22 12:24 Troponin T 0.032 ng/mL (0.00-0.029) H D 03/10/22 12:24 C-Reactive Protein < 0.03 mg/dL (0.00-1.30) 03/10/22 05:45 NT-Pro-B Natriuret Pep 08280 pg/mL (0-900) H 03/10/22 01:25 Total Protein 5.4 g/dL (6.3-8.2) L 03/18/22 05:20 Albumin 2.0 g/dL (3.9-5) L 03/18/22 05:20 Albumin/Globulin Ratio 0.6 % 03/18/22 05:20 Prealbumin 0.044 g/L (0.200-0.400) L 03/12/22 18:40 Triglycerides 47 mg/dL (2-149) 03/10/22 01:25 Cholesterol 259 mg/dL (50-199) H 03/10/22 01:25 LDL Cholesterol Direct 187 mg/dL (50-130) H 03/10/22 01:25 HDL Cholesterol 63 mg/dL (40-59) H 03/10/22 01:25 Cholesterol/HDL Ratio 4.11 % 03/10/22 01:25 Lipase 15 units/L (13-60) 03/10/22 01:25 Vitamin B1 28 nmol/L (8-30) 03/13/22 08:00 Vitamin B12 1021 pg/mL (211-911) H 03/12/22 18:40 Folate 2.15 ng/mL (7.3-26.0) L 03/12/22 18:40 Procalcitonin 3.92 ng/mL (<0.15) 03/10/22 05:45 TSH 1.290 mlU/mL (0.270-4.200) 03/12/22 18:40 Urine Color Yellow (Yellow) 03/10/22 18:20 Urine Turbidity Clear (Clear) 03/10/22 18:20 Urine pH 6.0 (5.0-7.0) 03/10/22 18:20 Ur Specific [place] 1.010 (1.003-1.030) 03/10/22 18:20 Urine Protein <15 mg/dl mg/dL (Negative) 03/10/22 18:20 Urine Glucose (UA) Neg mg/dL (Negative) 03/10/22 18:20 Urine Ketones Tr mg/dL (Negative) 03/10/22 18:20 Urine Blood Sm (Negative) 03/10/22 18:20 Urine Nitrite Neg (Negative) 03/10/22 18:20 Urine Bilirubin Neg (Negative) 03/10/22 18:20 Urine Urobilinogen < 2.0 mg/dL (<2.0) 03/10/22 18:20 Ur Leukocyte Esterase Lg (Negative) 03/10/22 18:20 Urine WBC (Auto) 105.0 /HPF (0.0-6.0) H 03/10/22 18:20 Urine RBC (Auto) 2.0 /HPF (0.0-6.0) 03/10/22 18:20 U Epithel Cells (Auto) < 1.0 /HPF (0-13.0) 03/10/22 18:20 Urine Bacteria (Auto) 1+ /HPF (Negative) 03/10/22 18:20 Urine Osmolality 368 Mosm/kg 03/10/22 18:20 Urine Creatinine 34.4 mg/dL (0.1-20.0) H 03/19/22 14:40 Urine Sodium 18 mmol/L 03/19/22 14:40 Urine Opiates Screen Presumptive positive 03/10/22 18:20 Urine Methadone Screen Presumptive negative 03/10/22 18:20 Ur Barbiturates Screen Presumptive negative 03/10/22 18:20 Ur Phencyclidine Scrn Presumptive negative 03/10/22 18:20 Ur Amphetamines Screen Presumptive negative 03/10/22 18:20 U Benzodiazepines Scrn Presumptive negative 03/10/22 18:20 Urine Cocaine Screen Presumptive negative 03/10/22 18:20 U Marijuana (THC) Screen Presumptive negative 03/10/22 18:20 Drugs of Abuse Note Disclamer 03/10/22 18:20 Copper 118 mcg/dL (70-175) 03/12/22 18:40 Syphilis IgG/IgM Ab Nonreactive (NonReactive) 03/12/22 18:40 SARS-CoV-2 (PCR) Negative (Negative) 03/10/22 09:50 Blood Type O POSITIVE 03/15/22 09:42 Antibody Screen Negative 03/15/22 09:42 Crossmatch See Detail 03/15/22 09:42 Microbiology: Microbiology 03/18/22 15:12 Peripheral/Venous Blood Culture - Preliminary NO GROWTH AFTER 48 HOURS 03/18/22 15:12 Peripheral/Venous Blood Culture - Preliminary NO GROWTH AFTER 48 HOURS [place]/IV: Voiding Method Indwelling Catheter Active Medications - Current Medications Current Medications: Generic Name Dose Route Start Last Admin Trade Name Freq PRN Reason Stop Dose Admin Acetaminophen 650 mg 03/13/22 05:50 03/19/22 18:38 Acetaminophen 325 Mg/10.15 Ml Oral Liqd Unit Dose FEEDTUBE 650 mg Q6H PRN Administration Non Cardiac Pain or Temp>100.5 Bisacodyl 10 mg 03/15/22 10:00 Bisacodyl 5 Mg Tab PO QDAY PRN Constipation Enoxaparin Sodium 40 mg 03/12/22 10:00 03/20/22 09:32 Enoxaparin 40 Mg/0.4 Ml Inj SUB-Q 40 mg QDAY@1000 SHAHBAZ Administration Protocol Famotidine 20 mg 03/12/22 10:00 03/20/22 22:00 Famotidine 20 Mg Tab FEEDTUBE 20 mg BID SHAHBAZ Administration Fentanyl 50 mcg 03/10/22 10:58 03/14/22 20:48 Fentanyl 100 Mcg/2 Ml Inj IV 50 mcg Q10MIN PRN Administration ANALGESIA Hydrophilic Ointment 1 applic 03/10/22 11:03 Lip Therapy Vaseline TP Q2HR PRN Dry Lips Fentanyl Citrate 2,000 mcg in 100 mls @ 4.16 mls/hr 03/10/22 11:00 03/21/22 05:52 Fentanyl Drip Premix IV 4 mcg/kg/hr TITR SHAHBAZ 16.64 mls/hr Administration Protocol 1 MCG/KG/HR NORepinephrine/NS 8 MG-250 ML 8 mg in 250 mls @ 3.75 mls/hr 03/10/22 11:00 18:45 Norepinephrine/Ns 8 Mg-250 Ml (Double Conc) IV 4 mcg/min TITRATE SHAHBAZ 7.5 mls/hr Administration Protocol 2 MCG/MIN Meropenem/Sodium Chloride 1 gram in 100 mls @ 100 mls/hr 03/14/22 22:00 03/21/22 05:53 Merrem/Ns 1 Gram/100 Ml IV 100 mls/hr Q8H SHAHBAZ Administration Protocol Levofloxacin/Dextrose 750 mg in 150 mls @ 100 mls/hr 03/20/22 12:00 03/20/22 13:03 Levaquin 750mg/150ml IV 03/25/22 11:59 Infused Q24H SHAHBAZ Infusion Protocol Levetiracetam 500 mg 03/12/22 10:00 03/20/22 22:00 Levetiracetam 500 Mg/5 Ml Oral Liqd FEEDTUBE 500 mg BID SHAHBAZ Administration Magnesium Hydroxide 30 ml 03/10/22 02:56 Magnesium Hydroxide (Mom) Oral Liqd Udc PO Q4H PRN Constipation Midodrine 10 mg 03/20/22 16:00 03/20/22 15:47 Midodrine 10 Mg Tab PO 10 mg TID@0800,1200,1600 SHAHBAZ Administration Multi-Ingred Cream/Lotion/Oil/Oint 1 applic 03/10/22 11:03 Mineral Oil/Petrolatum, White Ophth Oint 3.5 Gm OU Q4HR PRN Dry Eye(s) Ondansetron HCl 4 mg 03/10/22 02:56 Ondansetron 4 Mg/2 Ml Inj IV Q8H PRN Nausea And Vomiting Polyethylene Glycol 17 gm 03/12/22 10:00 03/20/22 09:34 Polyethylene Glycol 3350 17 Gm Powder FEEDTUBE Not Given QDAY SHAHBAZ Scopolamine 1 each 03/21/22 10:00 Scopolamine Transdermal Patch 72 Hr TD Q3D SHAHBAZ Senna/Docusate Sodium 2 tab 03/14/22 10:00 03/21/22 02:27 Sennosides/Docusate Sodium 8.6/50 Mg Tab FEEDTUBE Not Given Q12H SHAHBAZ Sodium Chloride 10 ml 03/10/22 10:00 03/21/22 02:24 Sodium Chloride 0.9% 10 Ml Flush Syringe IV Not Given BID SHAHBAZ Sodium Chloride 10 ml 03/10/22 02:56 Sodium Chloride 0.9% 10 Ml Flush Syringe IV PRN PRN LINE FLUSH Nutrition/Malnutrition Assess - Dietary Evaluation Nutrition/Malnutrition Findings: Nutrition Notes Start: 03/10/22 12:22 Freq: Status: Active Protocol: Document 03/14/22 12:08 JOSH (Rec: 03/14/22 12:31 JOSH [id number]) Nutrition Notes Initial or Follow up Brief Note Current Diagnosis Sepsis,Hypertension, Respiratory Failure, Malnutrition Other Pertinent Diagnosis MS, CAP, Seizure, Metabolic Encephalopathy, Hyponatremia, Hypokalemia, ... Current Diet TF-Vital AF 1.2 En @ 60 ml/hr (since D 03/10). Height 5 ft 6 in Weight 83.2 kg [place] Body Weight (kg) 59.09 BMI 29.6 Weight change and time frame No body weight change reported in 4 days. Weight Status Overweight Subjective/Other Information RD consult for routine F/U on TF tolerance/continuation. TF continues as prescribed, and well tolerated, according to RN notes. Pt remains on Mechanical Ventilation, O2 saturation @ 97%, according to Physical Assessment History notes. Pt presents an unspecified area of concern for skin risk with redness and flakiness, according to Physical Assessment History notes. Percent of energy/protein needs met: Prescribed TF-Vital AF 1.2 En @ 60 ml/hr provides for energy/protein needs (1,728 Kcal/108 g) during LOS, 100% Kcal; 100% AA. #1 Nutrition Diagnosis Inadequate oral intake Diagnosis Progress(for reassessment Continues documentation) Is patient on ventilator? Yes Is Patient Ambulatory and/or Out of Bed No REE-([facility]-confined to bed) 1713.168 Calculation Used for Recommendations [facility] Additional Notes Protein: 1-1.2 g/Kg ABW; 100- 166 g/day. Fluids: 1 ml/Kcal, or as per MD. Nutrition Intervention Nutrition Support: Continue TF-Vital AF 1.2 En @ 60 ml/hr. Flush: 100 ml water Q 4 hr, or as per MD. Kcal 1,728 Protein (gm) 108 Carbohydrates (gm) 159 Fat (gm) 78 Fluid (mL) 1,168 Fiber (gm) 7 % RDI: 100% Kcal; 100% AA. Goal #1 Provide at least 75% of energy /protein needs through Enteral Feeding during LOS. Follow-Up By: 03/21/22 Additional Comments Continue monitoring TF tolerance, Ventilation Status, Pressor support, and BM.
--- NOTE | 2022-03-20 13:26 | Progress Note ---
Assessment and Plan This is a 61-year-old female with known past medical history of Multiple Sclerosis and seizure disorder admitted for sepsis, Hyponatremia, and acute hypoxic respiratory failure requiring ventilatory support Acute Hypoxemic Respiratory Failure, on MVS ARDS Septic shock -2 pressor with MODS Multifocal Pneumonia/CAP- possible aspiration TANIYA C.diff PCR positive Leukemoid reaction with thromocytosis NSTEMI/Elevated Troponin- probable type 2 ischemia Elevated BNP Acute Metabolic Encephalopathy H/o Seizure Disorder Elevated D-Dimer Moderate Protein Calorie Malnutrition Up to 80% Fio2 and peep of 14 this am, still with periods of hypoxia with mild stimuli/movement. Severe generalized edema today with worsening CXR. Azotemia worsen s/p bcarb gtt. D/w Nephro, X1 dose of IV lasix and 25% Albumin given and Midodrine TID added. Overall poor prognosis. Worsening leukocytosis, remains critically ill Wean vasopressor support to keep MAP>65 -continue to titrate supplemental oxygen to keep SpO2 90-92% -VAP bundle addressed, aspiration precautions HOB >40 -continue lung protective strategies; ARDS net protocol -Bicarbonate for pH <7.2 per ARDS net protocol -continue bronchodilators with pulmonary hygiene per RT -Continue Antibiotics per ID- on Vancomyin (po ), Metronidazole IV -Continue to trend temperature curve and WCC -CXR, ABG as clinically indicated - continue accuchecks with glycemic control per SSI (While critically ill target blood glucose of 140-180 mg/dL; avoid hypoglycemia) - avoid nephrotoxins, renally dose all medications - continue to avoid benzodiazepines, reduce the possibility of delirium - Maintenance of sleep-wake cycle, avoid delirium -Continue with enteric nutritional support - VTE prophylaxis- anticoagulation with therapeutic low intensity heparin -Stress ulcer prophylaxis- Famotidine - mobility, off loading and frequent turning per facility protocol to prevent pressure ulcers - Monitor hemodynamics closely - continue other care per attending / other consultants CONDITION: CRITICAL PROGNOSIS: GRAVE CODE STATUS: FULL The high probability of a clinically significant, sudden or life threatening deterioration of the [respiratory, cardiovascular, neurology,renal ] system(s) required my full and direct attention, intervention and personal management. The aggregate critical care time was [35 ] minutes. This time is in addition to time spent performing reported procedures but includes the following: [x] Data Review and interpretation [x] Patient assessment and monitoring of vital signs [x] Documentation [x] Medication orders and management Subjective Date of service: 03/20/22 Principal diagnosis: AHRF; Multifocal Pneumonia; Septic shock; NSTEMI; AMS; Seizures Interval history: follow up fro: Acute hypoxemic resp failure on MVS; Acute encephalopathy; Septic shock; Bilateral pneumonia-aspiration/CAP Severe hyponatremia Seen and examined. Vitals, labs, medications, chart reviewed. Discussed with nursing and respiratory care staff. No fevers, remains on low dose norepinephrine, on fentanyl infusion and orally intubated. Vent: ACVC-20/400/+10/ 80% On going episodes of desaturations overnight with increased FIO2, Worsening hypotension with increase in Levophed rate. remains on Fentanyl-low dose Objective Vital Signs - 12hr 03/20/22 03/20/22 03/20/22 01:30 01:45 02:00 Temperature Pulse Rate 102 H 101 H 99 H Pulse Rate [ From Monitor] Pulse Rate [ Right Radial] Respiratory 29 H 30 H 29 H Rate Blood Pressure 96/56 105/60 101/65 O2 Sat by Pulse 98 99 98 Oximetry 03/20/22 03/20/22 03/20/22 02:15 02:30 02:45 Temperature Pulse Rate 100 H 99 H 100 H Pulse Rate [ From Monitor] Pulse Rate [ Right Radial] Respiratory 28 H 29 H 30 H Rate Blood Pressure 97/71 104/66 102/70 O2 Sat by Pulse 99 99 99 Oximetry 03/20/22 03/20/22 03/20/22 03:00 03:15 03:30 Temperature Pulse Rate 99 H 95 H 99 H Pulse Rate [ From Monitor] Pulse Rate [ Right Radial] Respiratory 29 H 21 22 Rate Blood Pressure 102/65 103/67 107/78 O2 Sat by Pulse 99 96 100 Oximetry 03/20/22 03/20/22 03/20/22 03:45 04:00 04:15 Temperature Pulse Rate 96 H 101 H 98 H Pulse Rate [ From Monitor] Pulse Rate [ 101 H Right Radial] Respiratory 31 H 27 H 29 H Rate Blood Pressure 115/68 106/65 101/71 O2 Sat by Pulse 93 97 95 Oximetry 03/20/22 03/20/22 03/20/22 04:30 04:45 04:57 Temperature Pulse Rate 99 H 99 H 97 H Pulse Rate [ From Monitor] Pulse Rate [ Right Radial] Respiratory 29 H 29 H Rate Blood Pressure 104/63 95/68 95/68 O2 Sat by Pulse 96 96 97 Oximetry 07/05/22 07/05/22 07/05/22 05:00 05:15 05:30 Temperature Pulse Rate 97 H 96 H 97 H Pulse Rate [ From Monitor] Pulse Rate [ Right Radial] Respiratory 29 H 24 27 H Rate Blood Pressure 100/69 103/69 103/70 O2 Sat by Pulse 96 94 96 Oximetry 03/20/22 03/20/22 03/20/22 05:45 06:00 06:15 Temperature Pulse Rate 99 H 98 H 99 H Pulse Rate [ From Monitor] Pulse Rate [ Right Radial] Respiratory 28 H 30 H 29 H Rate Blood Pressure 101/73 102/66 102/69 O2 Sat by Pulse 98 96 97 Oximetry 03/20/22 03/20/22 03/20/22 06:30 06:45 07:00 Temperature Pulse Rate 95 H 99 H 100 H Pulse Rate [ From Monitor] Pulse Rate [ Right Radial] Respiratory 27 H 20 27 H Rate Blood Pressure 104/59 103/67 107/69 O2 Sat by Pulse 94 100 99 Oximetry 03/20/22 03/20/22 03/20/22 07:10 07:15 07:27 Temperature 98.0 F Pulse Rate 95 H 95 H Pulse Rate [ From Monitor] Pulse Rate [ Right Radial] Respiratory 31 H Rate Blood Pressure 98/63 99/61 O2 Sat by Pulse 83 L 97 Oximetry 03/20/22 03/20/22 03/20/22 07:30 07:45 08:00 Temperature Pulse Rate 92 H 98 H 99 H Pulse Rate [ From Monitor] Pulse Rate [ Right Radial] Respiratory 23 20 21 Rate Blood Pressure 106/61 105/65 106/66 O2 Sat by Pulse 88 97 Oximetry 03/20/22 03/20/22 03/20/22 08:15 08:30 08:45 Temperature Pulse Rate 98 H 98 H 93 H Pulse Rate [ From Monitor] Pulse Rate [ Right Radial] Respiratory 19 18 19 Rate Blood Pressure 98/64 102/63 104/61 O2 Sat by Pulse 97 96 Oximetry 03/20/22 03/20/22 03/20/22 08:50 09:00 09:15 Temperature Pulse Rate 96 H 96 H Pulse Rate [ 96 H From Monitor] Pulse Rate [ Right Radial] Respiratory 21 23 23 Rate Blood Pressure 92/62 100/61 O2 Sat by Pulse 97 95 96 Oximetry 0703/20/22 03/20/22 09:30 09:45 10:00 Temperature Pulse Rate 95 H 95 H 95 H Pulse Rate [ From Monitor] Pulse Rate [ Right Radial] Respiratory 19 20 18 Rate Blood Pressure 100/65 97/58 92/58 O2 Sat by Pulse 97 96 97 Oximetry 03/20/22 03/20/22 03/20/22 10:15 10:30 10:45 Temperature Pulse Rate 95 H 95 H 94 H Pulse Rate [ From Monitor] Pulse Rate [ Right Radial] Respiratory 19 22 19 Rate Blood Pressure 89/58 88/60 96/58 O2 Sat by Pulse 96 99 Oximetry 03/20/22 03/20/22 03/20/22 11:00 11:15 11:30 Temperature Pulse Rate 94 H 94 H 94 H Pulse Rate [ From Monitor] Pulse Rate [ Right Radial] Respiratory 21 21 19 Rate Blood Pressure 89/58 91/60 90/56 O2 Sat by Pulse 96 Oximetry 03/20/22 03/20/22 03/20/22 11:45 12:00 12:08 Temperature Pulse Rate 94 H 95 H 95 H Pulse Rate [ From Monitor] Pulse Rate [ Right Radial] Respiratory 21 19 Rate Blood Pressure 83/59 93/60 O2 Sat by Pulse 96 Oximetry 03/20/22 12:09 Temperature 98.6 F Pulse Rate Pulse Rate [ From Monitor] Pulse Rate [ Right Radial] Respiratory Rate Blood Pressure O2 Sat by Pulse Oximetry Constitutional: no acute distress, alert, other (middle aged female with anasarca and mild dyssynchrony on MVS) Eyes: non-icteric ENT: oropharynx moist, other (ETT 24 cm BLANCA) Neck: supple, no lymphadenopathy, no JVD Effort: mildly labored Ascultation: Bilateral: rales Percussion: Bilateral: not dull Cardiovascular: regular rate and rhythm Gastrointestinal: normoactive bowel sounds, soft, non-tender, non-distended Integumentary: normal Extremities: no cyanosis, pulses normal, no ischemia or petechiae, edema (2+ and anasarca ) Neurologic: pupils equal and round, unable to assess, other (weak) Psychiatric: other (unable to assess re: AMS) CBC and BMP: 03/28/22 04:17 03/28/22 04:17 ABG, PT/INR, D-dimer: ABG ABG pH 7.278 pH Units (7.350-7.450) L 03/20/22 10:05 ABG pCO2 56.0 mm Hg 03/20/22 10:05 ABG pO2 71.0 mm Hg (80.0-90.0) L 03/20/22 10:05 ABG O2 Saturation 92.6 % (95.0-99.0) L 03/20/22 10:05 PT/INR, D-dimer PT 14.9 Sec. (12.2-14.9) 03/10/22 01:25 INR 1.03 (0.87-1.13) 03/10/22 01:25 D-Dimer 787.78 ng/mlDDU (0-234) H 03/10/22 05:45 Abnormal lab findings: Abnormal Labs 03/10/22 03/10/22 03/10/22 01:19 01:25 01:25 WBC RBC Hgb Hct MCH RDW 15.4 H Lymph % (Auto) 12.4 L Lymph # (Auto) 1.1 L Seg Neutrophils % 85.9 H Seg Neuts % (Manual) Lymphocytes % (Manual) Seg Neutrophils # Seg Neutrophils # Man Lymphocytes # (Manual) Monocytes # (Manual) Eosinophils # (Manual) D-Dimer ABG pH ABG pO2 59.3 L ABG HCO3 16.7 L ABG O2 Saturation 92.3 L ABG Base Excess -7.8 L ABG Hemoglobin 11.4 L Oxyhemoglobin 90.8 L Sodium 119 L* Potassium 3.1 L Chloride 88.1 L Carbon Dioxide 16 L BUN Creatinine 0.3 L Glucose 146 H POC Glucose Lactic Acid Uric Acid Calcium 8.2 L Phosphorus Magnesium 1.30 L Ferritin ALT 5 L Lactate Dehydrogenase Total Creatine Kinase CK-MB (CK-2) Troponin T NT-Pro-B Natriuret Pep Total Protein 5.4 L Albumin 3.6 L Prealbumin Cholesterol LDL Cholesterol Direct HDL Cholesterol Vitamin B12 Folate Urine WBC (Auto) Urine Creatinine Crossmatch 03/10/22 03/10/22 03/10/22 01:25 01:25 01:25 WBC RBC Hgb Hct MCH RDW Lymph % (Auto) Lymph # (Auto) Seg Neutrophils % Seg Neuts % (Manual) Lymphocytes % (Manual) Seg Neutrophils # Seg Neutrophils # Man Lymphocytes # (Manual) Monocytes # (Manual) Eosinophils # (Manual) D-Dimer ABG pH ABG pO2 ABG HCO3 ABG O2 Saturation ABG Base Excess ABG Hemoglobin Oxyhemoglobin Sodium Potassium Chloride Carbon Dioxide BUN Creatinine Glucose POC Glucose Lactic Acid 3.60 H* Uric Acid Calcium Phosphorus Magnesium Ferritin ALT Lactate Dehydrogenase Total Creatine Kinase CK-MB (CK-2) 4.6 H Troponin T 0.164 H* NT-Pro-B Natriuret Pep 62436 H Total Protein Albumin Prealbumin Cholesterol 259 H LDL Cholesterol Direct 187 H HDL Cholesterol 63 H Vitamin B12 Folate Urine WBC (Auto) Urine Creatinine Crossmatch 03/10/22 03/10/22 03/10/22 02:43 05:45 05:45 WBC RBC Hgb Hct MCH RDW Lymph % (Auto) Lymph # (Auto) Seg Neutrophils % Seg Neuts % (Manual) Lymphocytes % (Manual) Seg Neutrophils # Seg Neutrophils # Man Lymphocytes # (Manual) Monocytes # (Manual) Eosinophils # (Manual) D-Dimer 787.78 H ABG pH ABG pO2 ABG HCO3 ABG O2 Saturation ABG Base Excess ABG Hemoglobin Oxyhemoglobin Sodium Potassium Chloride Carbon Dioxide BUN Creatinine Glucose POC Glucose Lactic Acid 3.70 H* 3.10 H* Uric Acid Calcium Phosphorus Magnesium Ferritin ALT Lactate Dehydrogenase Total Creatine Kinase CK-MB (CK-2) Troponin T NT-Pro-B Natriuret Pep Total Protein Albumin Prealbumin Cholesterol LDL Cholesterol Direct HDL Cholesterol Vitamin B12 Folate Urine WBC (Auto) Urine Creatinine Crossmatch 03/10/22 03/10/22 03/10/22 05:45 05:45 12:24 WBC RBC Hgb Hct MCH RDW Lymph % (Auto) Lymph # (Auto) Seg Neutrophils % Seg Neuts % (Manual) Lymphocytes % (Manual) Seg Neutrophils # Seg Neutrophils # Man Lymphocytes # (Manual) Monocytes # (Manual) Eosinophils # (Manual) D-Dimer ABG pH ABG pO2 ABG HCO3 ABG O2 Saturation ABG Base Excess ABG Hemoglobin Oxyhemoglobin Sodium 124 L Potassium 3.3 L Chloride Carbon Dioxide 11 L BUN Creatinine 0.2 L Glucose POC Glucose Lactic Acid Uric Acid Calcium 6.9 L D Phosphorus Magnesium Ferritin 219.2 H ALT Lactate Dehydrogenase 210 H Total Creatine Kinase CK-MB (CK-2) Troponin T NT-Pro-B Natriuret Pep Total Protein Albumin Prealbumin Cholesterol LDL Cholesterol Direct HDL Cholesterol Vitamin B12 Folate Urine WBC (Auto) Urine Creatinine Crossmatch 03/10/22 03/10/22 03/10/22 12:24 12:24 12:24 WBC RBC Hgb Hct MCH RDW Lymph % (Auto) Lymph # (Auto) Seg Neutrophils % Seg Neuts % (Manual) Lymphocytes % (Manual) Seg Neutrophils # Seg Neutrophils # Man Lymphocytes # (Manual) Monocytes # (Manual) Eosinophils # (Manual) D-Dimer ABG pH ABG pO2 ABG HCO3 ABG O2 Saturation ABG Base Excess ABG Hemoglobin Oxyhemoglobin Sodium 128 L Potassium Chloride Carbon Dioxide BUN Creatinine Glucose POC Glucose Lactic Acid 2.70 H* Uric Acid Calcium Phosphorus Magnesium Ferritin ALT Lactate Dehydrogenase Total Creatine Kinase 901 H CK-MB (CK-2) 15.3 H Troponin T 0.032 H D NT-Pro-B Natriuret Pep Total Protein Albumin Prealbumin Cholesterol LDL Cholesterol Direct HDL Cholesterol Vitamin B12 Folate Urine WBC (Auto) Urine Creatinine Crossmatch 03/10/22 03/10/22 03/10/22 12:45 13:15 18:00 WBC RBC Hgb Hct MCH RDW Lymph % (Auto) Lymph # (Auto) Seg Neutrophils % Seg Neuts % (Manual) Lymphocytes % (Manual) Seg Neutrophils # Seg Neutrophils # Man Lymphocytes # (Manual) Monocytes # (Manual) Eosinophils # (Manual) D-Dimer ABG pH 7.315 L ABG pO2 70.1 L ABG HCO3 15.6 L ABG O2 Saturation 93.8 L ABG Base Excess -9.5 L ABG Hemoglobin 11.0 L Oxyhemoglobin 92.4 L Sodium 129 L Potassium Chloride Carbon Dioxide 17 L BUN Creatinine 0.2 L Glucose POC Glucose Lactic Acid Uric Acid 1.6 L Calcium 7.0 L Phosphorus Magnesium Ferritin ALT Lactate Dehydrogenase Total Creatine Kinase CK-MB (CK-2) Troponin T NT-Pro-B Natriuret Pep Total Protein Albumin Prealbumin Cholesterol LDL Cholesterol Direct HDL Cholesterol Vitamin B12 Folate Urine WBC (Auto) Urine Creatinine Crossmatch 03/10/22 03/10/22 03/11/22 18:20 21:05 05:00 WBC 13.7 H RBC 3.44 L Hgb 9.6 L Hct 29.0 L D MCH RDW Lymph % (Auto) 8.9 L Lymph # (Auto) Seg Neutrophils % 86.6 H Seg Neuts % (Manual) Lymphocytes % (Manual) Seg Neutrophils # 11.8 H Seg Neutrophils # Man Lymphocytes # (Manual) Monocytes # (Manual) Eosinophils # (Manual) D-Dimer ABG pH ABG pO2 116.3 H ABG HCO3 17.2 L ABG O2 Saturation ABG Base Excess -6.4 L ABG Hemoglobin 11.0 L Oxyhemoglobin Sodium Potassium Chloride Carbon Dioxide BUN Creatinine Glucose POC Glucose Lactic Acid Uric Acid Calcium Phosphorus Magnesium Ferritin ALT Lactate Dehydrogenase Total Creatine Kinase CK-MB (CK-2) Troponin T NT-Pro-B Natriuret Pep Total Protein Albumin Prealbumin Cholesterol LDL Cholesterol Direct HDL Cholesterol Vitamin B12 Folate Urine WBC (Auto) 105.0 H Urine Creatinine Crossmatch 03/11/22 03/11/22 03/12/22 05:00 Unknown 04:10 WBC RBC Hgb Hct MCH RDW Lymph % (Auto) Lymph # (Auto) Seg Neutrophils % Seg Neuts % (Manual) Lymphocytes % (Manual) Seg Neutrophils # Seg Neutrophils # Man Lymphocytes # (Manual) Monocytes # (Manual) Eosinophils # (Manual) D-Dimer ABG pH 7.472 H 7.482 H ABG pO2 65.5 L ABG HCO3 19.8 L ABG O2 Saturation ABG Base Excess -2.9 L ABG Hemoglobin 10.1 L 8.4 L Oxyhemoglobin Sodium 132 L Potassium Chloride Carbon Dioxide 20 L BUN 6 L Creatinine 0.2 L Glucose POC Glucose Lactic Acid Uric Acid Calcium 7.5 L Phosphorus Magnesium Ferritin ALT Lactate Dehydrogenase Total Creatine Kinase CK-MB (CK-2) Troponin T NT-Pro-B Natriuret Pep Total Protein Albumin Prealbumin Cholesterol LDL Cholesterol Direct HDL Cholesterol Vitamin B12 Folate Urine WBC (Auto) Urine Creatinine Crossmatch 03/12/22 03/12/22 03/12/22 04:20 04:20 12:25 WBC 13.6 H RBC 3.11 L Hgb 8.7 L Hct 26.1 L MCH RDW Lymph % (Auto) Lymph # (Auto) Seg Neutrophils % Seg Neuts % (Manual) Lymphocytes % (Manual) Seg Neutrophils # Seg Neutrophils # Man Lymphocytes # (Manual) Monocytes # (Manual) Eosinophils # (Manual) D-Dimer ABG pH ABG pO2 ABG HCO3 ABG O2 Saturation ABG Base Excess ABG Hemoglobin Oxyhemoglobin Sodium 128 L Potassium 3.2 L Chloride 93.9 L Carbon Dioxide BUN 4 L Creatinine 0.2 L Glucose 103 H POC Glucose 116 H Lactic Acid Uric Acid Calcium 7.4 L Phosphorus 1.10 L Magnesium 2.40 H Ferritin ALT Lactate Dehydrogenase Total Creatine Kinase CK-MB (CK-2) Troponin T NT-Pro-B Natriuret Pep Total Protein Albumin Prealbumin Cholesterol LDL Cholesterol Direct HDL Cholesterol Vitamin B12 Folate Urine WBC (Auto) Urine Creatinine Crossmatch 03/12/22 03/12/22 03/12/22 18:40 18:40 18:40 WBC RBC Hgb Hct MCH RDW Lymph % (Auto) Lymph # (Auto) Seg Neutrophils % Seg Neuts % (Manual) Lymphocytes % (Manual) Seg Neutrophils # Seg Neutrophils # Man Lymphocytes # (Manual) Monocytes # (Manual) Eosinophils # (Manual) D-Dimer ABG pH ABG pO2 ABG HCO3 ABG O2 Saturation ABG Base Excess ABG Hemoglobin Oxyhemoglobin Sodium Potassium Chloride Carbon Dioxide BUN Creatinine Glucose POC Glucose Lactic Acid Uric Acid Calcium Phosphorus Magnesium Ferritin ALT Lactate Dehydrogenase Total Creatine Kinase CK-MB (CK-2) Troponin T NT-Pro-B Natriuret Pep Total Protein Albumin Prealbumin 0.044 L Cholesterol LDL Cholesterol Direct HDL Cholesterol Vitamin B12 1021 H Folate 2.15 L Urine WBC (Auto) Urine Creatinine Crossmatch 03/13/22 03/13/22 03/13/22 04:10 08:00 09:50 WBC 15.0 H RBC 2.82 L Hgb 8.0 L Hct 23.9 L MCH RDW 15.5 H Lymph % (Auto) Lymph # (Auto) Seg Neutrophils % Seg Neuts % (Manual) Lymphocytes % (Manual) Seg Neutrophils # Seg Neutrophils # Man Lymphocytes # (Manual) Monocytes # (Manual) Eosinophils # (Manual) D-Dimer ABG pH ABG pO2 98.6 H ABG HCO3 ABG O2 Saturation ABG Base Excess ABG Hemoglobin 8.3 L Oxyhemoglobin Sodium 130 L Potassium Chloride 96.1 L Carbon Dioxide BUN Creatinine 0.4 L D Glucose 148 H POC Glucose Lactic Acid Uric Acid Calcium 7.3 L Phosphorus Magnesium Ferritin ALT Lactate Dehydrogenase Total Creatine Kinase CK-MB (CK-2) Troponin T NT-Pro-B Natriuret Pep Total Protein Albumin Prealbumin Cholesterol LDL Cholesterol Direct HDL Cholesterol Vitamin B12 Folate Urine WBC (Auto) Urine Creatinine Crossmatch 03/13/22 03/13/22 03/14/22 20:15 22:59 04:54 WBC 17.0 H RBC 2.79 L Hgb 7.8 L Hct 23.6 L MCH RDW 15.6 H Lymph % (Auto) Lymph # (Auto) Seg Neutrophils % Seg Neuts % (Manual) Lymphocytes % (Manual) Seg Neutrophils # Seg Neutrophils # Man Lymphocytes # (Manual) Monocytes # (Manual) Eosinophils # (Manual) D-Dimer ABG pH ABG pO2 ABG HCO3 ABG O2 Saturation ABG Base Excess -2.9 L ABG Hemoglobin 8.0 L Oxyhemoglobin Sodium Potassium Chloride Carbon Dioxide BUN Creatinine Glucose POC Glucose 127 H Lactic Acid Uric Acid Calcium Phosphorus Magnesium Ferritin ALT Lactate Dehydrogenase Total Creatine Kinase CK-MB (CK-2) Troponin T NT-Pro-B Natriuret Pep Total Protein Albumin Prealbumin Cholesterol LDL Cholesterol Direct HDL Cholesterol Vitamin B12 Folate Urine WBC (Auto) Urine Creatinine Crossmatch 03/14/22 03/14/22 03/14/22 04:54 16:15 22:59 WBC RBC Hgb Hct MCH RDW Lymph % (Auto) Lymph # (Auto) Seg Neutrophils % Seg Neuts % (Manual) Lymphocytes % (Manual) Seg Neutrophils # Seg Neutrophils # Man Lymphocytes # (Manual) Monocytes # (Manual) Eosinophils # (Manual) D-Dimer ABG pH ABG pO2 ABG HCO3 ABG O2 Saturation ABG Base Excess ABG Hemoglobin Oxyhemoglobin Sodium 129 L 128 L Potassium 3.5 L Chloride 97.1 L 97.0 L Carbon Dioxide BUN 24 H 31 H Creatinine 0.5 L Glucose 125 H 114 H POC Glucose 134 H Lactic Acid Uric Acid Calcium 7.0 L 7.0 L Phosphorus Magnesium Ferritin ALT Lactate Dehydrogenase Total Creatine Kinase CK-MB (CK-2) Troponin T NT-Pro-B Natriuret Pep Total Protein Albumin Prealbumin Cholesterol LDL Cholesterol Direct HDL Cholesterol Vitamin B12 Folate Urine WBC (Auto) Urine Creatinine Crossmatch 03/15/22 03/15/22 03/15/22 04:10 04:10 05:02 WBC 12.9 H RBC 2.55 L Hgb 7.1 L Hct 21.5 L MCH RDW 15.8 H Lymph % (Auto) Lymph # (Auto) Seg Neutrophils % Seg Neuts % (Manual) 88.0 H Lymphocytes % (Manual) 5.0 L Seg Neutrophils # Seg Neutrophils # Man 11.4 H Lymphocytes # (Manual) 0.6 L Monocytes # (Manual) Eosinophils # (Manual) 0.5 H D-Dimer ABG pH ABG pO2 ABG HCO3 ABG O2 Saturation ABG Base Excess ABG Hemoglobin Oxyhemoglobin Sodium 127 L Potassium Chloride 96.3 L Carbon Dioxide 21 L BUN 33 H Creatinine Glucose 126 H POC Glucose 116 H Lactic Acid Uric Acid Calcium 7.4 L Phosphorus 1.20 L Magnesium Ferritin ALT Lactate Dehydrogenase Total Creatine Kinase CK-MB (CK-2) Troponin T NT-Pro-B Natriuret Pep Total Protein 5.3 L Albumin 2.1 L Prealbumin Cholesterol LDL Cholesterol Direct HDL Cholesterol Vitamin B12 Folate Urine WBC (Auto) Urine Creatinine Crossmatch 03/15/22 03/15/22 03/15/22 05:55 09:42 11:34 WBC RBC Hgb Hct MCH RDW Lymph % (Auto) Lymph # (Auto) Seg Neutrophils % Seg Neuts % (Manual) Lymphocytes % (Manual) Seg Neutrophils # Seg Neutrophils # Man Lymphocytes # (Manual) Monocytes # (Manual) Eosinophils # (Manual) D-Dimer ABG pH ABG pO2 119.0 H ABG HCO3 ABG O2 Saturation ABG Base Excess -3.1 L ABG Hemoglobin 8.2 L Oxyhemoglobin Sodium Potassium Chloride Carbon Dioxide BUN Creatinine Glucose POC Glucose 125 H Lactic Acid Uric Acid Calcium Phosphorus Magnesium Ferritin ALT Lactate Dehydrogenase Total Creatine Kinase CK-MB (CK-2) Troponin T NT-Pro-B Natriuret Pep Total Protein Albumin Prealbumin Cholesterol LDL Cholesterol Direct HDL Cholesterol Vitamin B12 Folate Urine WBC (Auto) Urine Creatinine Crossmatch See Detail 03/15/22 03/16/22 03/16/22 20:55 04:50 04:50 WBC 16.9 H RBC 2.53 L Hgb 7.1 L Hct 21.5 L MCH RDW 16.0 H Lymph % (Auto) Lymph # (Auto) Seg Neutrophils % Seg Neuts % (Manual) Lymphocytes % (Manual) Seg Neutrophils # Seg Neutrophils # Man Lymphocytes # (Manual) Monocytes # (Manual) Eosinophils # (Manual) D-Dimer ABG pH 7.320 L ABG pO2 122.8 H ABG HCO3 ABG O2 Saturation ABG Base Excess -4.1 L ABG Hemoglobin 7.0 L Oxyhemoglobin Sodium 132 L Potassium Chloride Carbon Dioxide 20 L BUN 44 H Creatinine Glucose 123 H POC Glucose Lactic Acid Uric Acid Calcium 7.6 L Phosphorus Magnesium Ferritin ALT Lactate Dehydrogenase Total Creatine Kinase CK-MB (CK-2) Troponin T NT-Pro-B Natriuret Pep Total Protein Albumin Prealbumin Cholesterol LDL Cholesterol Direct HDL Cholesterol Vitamin B12 Folate Urine WBC (Auto) Urine Creatinine Crossmatch 03/16/22 03/16/22 03/16/22 05:42 11:32 23:05 WBC RBC Hgb Hct MCH RDW Lymph % (Auto) Lymph # (Auto) Seg Neutrophils % Seg Neuts % (Manual) Lymphocytes % (Manual) Seg Neutrophils # Seg Neutrophils # Man Lymphocytes # (Manual) Monocytes # (Manual) Eosinophils # (Manual) D-Dimer ABG pH ABG pO2 ABG HCO3 ABG O2 Saturation ABG Base Excess ABG Hemoglobin Oxyhemoglobin Sodium Potassium Chloride Carbon Dioxide BUN Creatinine Glucose POC Glucose 113 H 118 H 114 H Lactic Acid Uric Acid Calcium Phosphorus Magnesium Ferritin ALT Lactate Dehydrogenase Total Creatine Kinase CK-MB (CK-2) Troponin T NT-Pro-B Natriuret Pep Total Protein Albumin Prealbumin Cholesterol LDL Cholesterol Direct HDL Cholesterol Vitamin B12 Folate Urine WBC (Auto) Urine Creatinine Crossmatch 03/17/22 03/17/22 03/17/22 04:00 04:00 05:00 WBC 19.1 H RBC 2.44 L Hgb 6.6 L Hct 20.6 L MCH 27 L RDW 16.4 H Lymph % (Auto) Lymph # (Auto) Seg Neutrophils % Seg Neuts % (Manual) 78.0 H Lymphocytes % (Manual) 2.0 L Seg Neutrophils # Seg Neutrophils # Man 14.9 H Lymphocytes # (Manual) 0.4 L Monocytes # (Manual) 1.3 H Eosinophils # (Manual) 0.6 H D-Dimer ABG pH 7.334 L ABG pO2 132.4 H ABG HCO3 ABG O2 Saturation ABG Base Excess -2.7 L ABG Hemoglobin 9.1 L Oxyhemoglobin Sodium 134 L Potassium Chloride Carbon Dioxide BUN 55 H Creatinine Glucose 125 H POC Glucose Lactic Acid Uric Acid Calcium 8.1 L Phosphorus Magnesium Ferritin ALT Lactate Dehydrogenase Total Creatine Kinase CK-MB (CK-2) Troponin T NT-Pro-B Natriuret Pep Total Protein Albumin Prealbumin Cholesterol LDL Cholesterol Direct HDL Cholesterol Vitamin B12 Folate Urine WBC (Auto) Urine Creatinine Crossmatch 03/17/22 03/17/22 03/17/22 05:40 15:30 17:48 WBC RBC Hgb 8.2 L Hct 24.9 L MCH RDW Lymph % (Auto) Lymph # (Auto) Seg Neutrophils % Seg Neuts % (Manual) Lymphocytes % (Manual) Seg Neutrophils # Seg Neutrophils # Man Lymphocytes # (Manual) Monocytes # (Manual) Eosinophils # (Manual) D-Dimer ABG pH ABG pO2 ABG HCO3 ABG O2 Saturation ABG Base Excess ABG Hemoglobin Oxyhemoglobin Sodium Potassium Chloride Carbon Dioxide BUN Creatinine Glucose POC Glucose 115 H 117 H Lactic Acid Uric Acid Calcium Phosphorus Magnesium Ferritin ALT Lactate Dehydrogenase Total Creatine Kinase CK-MB (CK-2) Troponin T NT-Pro-B Natriuret Pep Total Protein Albumin Prealbumin Cholesterol LDL Cholesterol Direct HDL Cholesterol Vitamin B12 Folate Urine WBC (Auto) Urine Creatinine Crossmatch 03/17/22 03/18/22 03/18/22 23:54 05:04 05:20 WBC RBC Hgb Hct MCH RDW Lymph % (Auto) Lymph # (Auto) Seg Neutrophils % Seg Neuts % (Manual) Lymphocytes % (Manual) Seg Neutrophils # Seg Neutrophils # Man Lymphocytes # (Manual) Monocytes # (Manual) Eosinophils # (Manual) D-Dimer ABG pH 7.302 L ABG pO2 71.0 L ABG HCO3 ABG O2 Saturation 94.9 L ABG Base Excess -4.3 L ABG Hemoglobin 9.6 L Oxyhemoglobin 92.9 L Sodium 135 L Potassium Chloride Carbon Dioxide BUN 66 H Creatinine Glucose 122 H POC Glucose 114 H Lactic Acid Uric Acid Calcium 8.2 L Phosphorus Magnesium Ferritin ALT Lactate Dehydrogenase Total Creatine Kinase CK-MB (CK-2) Troponin T NT-Pro-B Natriuret Pep Total Protein 5.4 L Albumin 2.0 L Prealbumin Cholesterol LDL Cholesterol Direct HDL Cholesterol Vitamin B12 Folate Urine WBC (Auto) Urine Creatinine Crossmatch 03/18/22 03/18/22 03/18/22 05:20 06:44 12:04 WBC 23.9 H RBC 2.88 L Hgb 8.1 L Hct 25.1 L MCH RDW 16.0 H Lymph % (Auto) Lymph # (Auto) Seg Neutrophils % Seg Neuts % (Manual) 89.0 H Lymphocytes % (Manual) 7.5 L Seg Neutrophils # Seg Neutrophils # Man 21.3 H Lymphocytes # (Manual) Monocytes # (Manual) Eosinophils # (Manual) D-Dimer ABG pH ABG pO2 ABG HCO3 ABG O2 Saturation ABG Base Excess ABG Hemoglobin Oxyhemoglobin Sodium Potassium Chloride Carbon Dioxide BUN Creatinine Glucose POC Glucose 107 H 119 H Lactic Acid Uric Acid Calcium Phosphorus Magnesium Ferritin ALT Lactate Dehydrogenase Total Creatine Kinase CK-MB (CK-2) Troponin T NT-Pro-B Natriuret Pep Total Protein Albumin Prealbumin Cholesterol LDL Cholesterol Direct HDL Cholesterol Vitamin B12 Folate Urine WBC (Auto) Urine Creatinine Crossmatch 03/19/22 03/19/22 03/19/22 05:15 08:59 08:59 WBC 30.4 H RBC 2.78 L Hgb 7.7 L Hct 24.2 L MCH RDW 16.4 H Lymph % (Auto) Lymph # (Auto) Seg Neutrophils % Seg Neuts % (Manual) Lymphocytes % (Manual) Seg Neutrophils # Seg Neutrophils # Man Lymphocytes # (Manual) Monocytes # (Manual) Eosinophils # (Manual) D-Dimer ABG pH 7.341 L ABG pO2 78.1 L ABG HCO3 ABG O2 Saturation ABG Base Excess -4.5 L ABG Hemoglobin 9.5 L Oxyhemoglobin Sodium 132 L Potassium 5.5 H Chloride Carbon Dioxide 19 L BUN 84 H Creatinine Glucose 124 H POC Glucose Lactic Acid Uric Acid Calcium Phosphorus Magnesium Ferritin ALT Lactate Dehydrogenase Total Creatine Kinase CK-MB (CK-2) Troponin T NT-Pro-B Natriuret Pep Total Protein Albumin Prealbumin Cholesterol LDL Cholesterol Direct HDL Cholesterol Vitamin B12 Folate Urine WBC (Auto) Urine Creatinine Crossmatch 03/19/22 03/19/22 03/19/22 14:40 14:40 18:37 WBC RBC Hgb Hct MCH RDW Lymph % (Auto) Lymph # (Auto) Seg Neutrophils % Seg Neuts % (Manual) Lymphocytes % (Manual) Seg Neutrophils # Seg Neutrophils # Man Lymphocytes # (Manual) Monocytes # (Manual) Eosinophils # (Manual) D-Dimer ABG pH 7.337 L ABG pO2 41.2 L ABG HCO3 ABG O2 Saturation 74.8 L ABG Base Excess -4.5 L ABG Hemoglobin 7.9 L Oxyhemoglobin 72.9 L Sodium Potassium Chloride Carbon Dioxide BUN Creatinine Glucose POC Glucose 120 H Lactic Acid Uric Acid Calcium Phosphorus Magnesium Ferritin ALT Lactate Dehydrogenase Total Creatine Kinase CK-MB (CK-2) Troponin T NT-Pro-B Natriuret Pep Total Protein Albumin Prealbumin Cholesterol LDL Cholesterol Direct HDL Cholesterol Vitamin B12 Folate Urine WBC (Auto) Urine Creatinine 34.4 H Crossmatch 03/19/22 03/20/22 03/20/22 23:15 05:20 05:20 WBC 29.5 H RBC 2.76 L Hgb 7.6 L Hct 23.7 L MCH 27 L RDW 16.6 H Lymph % (Auto) Lymph # (Auto) Seg Neutrophils % Seg Neuts % (Manual) Lymphocytes % (Manual) Seg Neutrophils # Seg Neutrophils # Man Lymphocytes # (Manual) Monocytes # (Manual) Eosinophils # (Manual) D-Dimer ABG pH ABG pO2 ABG HCO3 ABG O2 Saturation ABG Base Excess ABG Hemoglobin Oxyhemoglobin Sodium Potassium Chloride Carbon Dioxide BUN 96 H Creatinine Glucose 141 H POC Glucose 125 H Lactic Acid Uric Acid Calcium Phosphorus Magnesium Ferritin ALT Lactate Dehydrogenase Total Creatine Kinase CK-MB (CK-2) Troponin T NT-Pro-B Natriuret Pep Total Protein Albumin Prealbumin Cholesterol LDL Cholesterol Direct HDL Cholesterol Vitamin B12 Folate Urine WBC (Auto) Urine Creatinine Crossmatch 03/20/22 03/20/22 06:09 10:05 WBC RBC Hgb Hct MCH RDW Lymph % (Auto) Lymph # (Auto) Seg Neutrophils % Seg Neuts % (Manual) Lymphocytes % (Manual) Seg Neutrophils # Seg Neutrophils # Man Lymphocytes # (Manual) Monocytes # (Manual) Eosinophils # (Manual) D-Dimer ABG pH 7.278 L ABG pO2 71.0 L ABG HCO3 ABG O2 Saturation 92.6 L ABG Base Excess ABG Hemoglobin 8.2 L Oxyhemoglobin 90.5 L Sodium Potassium Chloride Carbon Dioxide BUN Creatinine Glucose POC Glucose 121 H Lactic Acid Uric Acid Calcium Phosphorus Magnesium Ferritin ALT Lactate Dehydrogenase Total Creatine Kinase CK-MB (CK-2) Troponin T NT-Pro-B Natriuret Pep Total Protein Albumin Prealbumin Cholesterol LDL Cholesterol Direct HDL Cholesterol Vitamin B12 Folate Urine WBC (Auto) Urine Creatinine Crossmatch Allied health notes reviewed: nursing
--- NOTE | 2022-03-20 13:58 | Progress Note ---
Assessment and Plan - Patient Problems (1) Respiratory failure Current Visit: Yes Status: Acute Plan to address problem: Patient has a history of multiple sclerosis, no reported cardiac history, presented to the hospital with respiratory insufficiency and currently on the vent in the ICU. Chest x-ray showed confluent consolidations in both lung fraire consistent with a severe bilateral pneumonia. A COVID-19 test was positive. Cardiac consultation was requested for the finding of a nonspecific, isolated rise in troponin levels. EKG show sinus rhythm with no acute ischemic changes. Echocardiogram done on this presentation shows left ventricular systolic ejection fraction at the lower limits of normal 50%. No acute cardiovascular issues at this time, will continue supportive management of cardiac status, defer treatment of respiratory failure and bilateral pneumonia to internal medicine and pulmonary. Subjective Date of service: 03/20/22 Principal diagnosis: AHRF; Multifocal Pneumonia; Septic shock; NSTEMI; AMS; Seizures Interval history: Patient is on the vent, sedated, no new cardiac events reported. Objective Vital Signs Temp Pulse Pulse Pulse Resp BP Pulse Ox 03/20/22 12:09 98.6 F 03/20/22 12:08 95 H 03/20/22 12:00 95 H 19 93/60 96 03/20/22 11:45 94 H 21 83/59 03/20/22 11:30 94 H 19 90/56 03/20/22 11:15 94 H 21 91/60 03/20/22 11:00 94 H 21 89/58 96 03/20/22 10:45 94 H 19 96/58 99 03/20/22 10:30 95 H 22 88/60 03/20/22 10:15 95 H 19 89/58 96 03/20/22 10:00 95 H 18 92/58 97 03/20/22 09:45 95 H 20 97/58 96 03/20/22 09:30 95 H 19 100/65 97 03/20/22 09:15 96 H 23 100/61 96 03/20/22 09:00 96 H 23 92/62 95 03/20/22 08:50 96 H 21 97 03/20/22 08:45 93 H 19 104/61 96 03/20/22 08:30 98 H 18 102/63 03/20/22 08:15 98 H 19 98/64 97 03/20/22 08:00 99 H 21 106/66 03/20/22 07:45 98 H 20 105/65 97 03/20/22 07:30 92 H 23 106/61 88 03/20/22 07:27 95 H 99/61 97 03/20/22 07:15 95 H 31 H 98/63 83 L 03/20/22 07:10 98.0 F 03/20/22 07:00 100 H 27 H 107/69 99 03/20/22 06:45 99 H 20 103/67 100 03/20/22 06:30 95 H 27 H 104/59 94 03/20/22 06:15 99 H 29 H 102/69 97 03/20/22 06:00 98 H 30 H 102/66 96 03/20/22 05:45 99 H 28 H 101/73 98 03/20/22 05:30 97 H 27 H 103/70 96 03/20/22 05:15 96 H 24 103/69 94 03/20/22 05:00 97 H 29 H 100/69 96 03/20/22 04:57 97 H 95/68 97 03/20/22 04:45 99 H 29 H 95/68 96 03/20/22 04:30 99 H 29 H 104/63 96 03/20/22 04:15 98 H 29 H 101/71 95 03/20/22 04:00 101 H 101 H 27 H 106/65 97 03/20/22 03:45 96 H 31 H 115/68 93 03/20/22 03:30 99 H 22 107/78 100 03/20/22 03:15 95 H 21 103/67 96 03/20/22 03:00 99 H 29 H 102/65 99 03/20/22 02:45 100 H 30 H 102/70 99 03/20/22 02:30 99 H 29 H 104/66 99 03/20/22 02:15 100 H 28 H 97/71 99 03/20/22 02:00 99 H 29 H 101/65 98 03/20/22 01:45 101 H 30 H 105/60 99 03/20/22 01:30 102 H 29 H 96/56 98 03/20/22 01:15 102 H 28 H 104/69 98 03/20/22 01:00 101 H 16 104/71 100 03/20/22 00:45 98 H 32 H 97/71 98 03/20/22 00:30 96 H 27 H 93/66 91 03/20/22 00:15 99 H 28 H 91/60 96 03/20/22 00:09 99 H 96/62 95 03/20/22 00:00 101 H 100 H 29 H 96/62 97 03/19/22 23:45 101 H 30 H 98/62 97 03/19/22 23:30 99 H 30 H 89/62 96 03/19/22 23:15 101 H 30 H 100/61 97 03/19/22 23:00 98 H 28 H 91/62 94 03/19/22 22:45 102 H 29 H 88/60 96 03/19/22 22:30 101 H 30 H 96/67 97 03/19/22 22:15 102 H 32 H 96/59 98 03/19/22 22:00 103 H 30 H 90/60 97 03/19/22 21:45 103 H 31 H 89/58 96 03/19/22 21:30 103 H 30 H 95/56 95 03/19/22 21:17 103 H 27 H 95/56 95 03/19/22 21:15 103 H 28 H 95/56 95 03/19/22 21:00 97 H 19 89/59 94 03/19/22 20:45 97 H 31 H 89/59 94 03/19/22 20:30 98 H 30 H 86/58 95 03/19/22 20:15 102 H 33 H 93/51 95 03/19/22 20:00 100 H 102 H 32 H 82/57 96 03/19/22 19:45 101 H 34 H 88/60 96 03/19/22 19:30 99 H 30 H 90/60 95 03/19/22 19:15 96 H 26 H 92/56 96 03/19/22 19:10 99 H 94/62 96 03/19/22 19:00 98 H 31 H 94/62 96 03/19/22 18:45 100 H 28 H 101/66 96 03/19/22 18:30 96 H 22 103/70 99 03/19/22 18:15 99 H 30 H 107/63 97 03/19/22 18:00 95 H 28 H 97/64 96 03/19/22 17:45 98 H 31 H 101/67 96 03/19/22 17:30 95 H 29 H 92/62 95 03/19/22 17:15 92 H 29 H 96/59 96 03/19/22 17:00 98 H 22 104/68 87 03/19/22 16:45 94 H 32 H 102/63 96 03/19/22 16:30 94 H 29 H 94/60 95 03/19/22 16:15 96 H 31 H 94/64 95 03/19/22 16:00 95 H 98 H 27 H 94/62 91 03/19/22 15:45 101 H 32 H 99/66 96 03/19/22 15:30 94 H 31 H 94/62 95 03/19/22 15:15 104 H 28 H 94/61 97 03/19/22 15:10 100 H 104/64 90 03/19/22 15:00 103 H 29 H 97/64 97 03/19/22 14:45 96 H 28 H 97/61 94 03/19/22 14:30 95 H 28 H 95/59 96 03/19/22 14:15 104 H 28 H 94/64 96 03/19/22 14:00 102 H 30 H 83/62 91 - Physical Examination General: Other (intubated on mechanical ventilator) HEENT: Positive: PERRL Neck: Positive: neck supple, trachea midline. Negative: JVD/HJR Cardiac: Positive: Reg Rate and Rhythm Lungs: Positive: Decreased Breath Sounds Neuro: Positive: Other (Intubated, sedated on the vent) Abdomen: Positive: Soft Skin: Positive: Clear, Other (multiple wounds) Extremities: Absent: edema - Labs and Meds CBC 03/20/22 Range/Units 05:20 WBC 29.5 H (4.5-11.0) K/mm3 RBC 2.76 L (3.65-5.03) M/mm3 Hgb 7.6 L (10.1-14.3) gm/dl Hct 23.7 L (30.3-42.9) % Plt Count 415 (140-440) K/mm3 Comprehensive Metabolic Panel 03/20/22 Range/Units 05:20 Sodium 141 D (137-145) mmol/L Potassium 4.6 (3.6-5.0) mmol/L Chloride 102.1 (98-107) mmol/L Carbon Dioxide 24 (22-30) mmol/L BUN 96 H (7-17) mg/dL Creatinine 1.0 (0.6-1.2) mg/dL Glucose 141 H (65-100) mg/dL Calcium 8.6 (8.4-10.2) mg/dL - Allied health notes Allied health notes reviewed: RT
--- NOTE | 2022-03-20 14:06 | Progress Note ---
Assessment and Plan 1. 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 Associated volume overload. Sodium level is better / fluctuates. 2. FEN: Volume overload, diuretics as BP allows. Anion-gap metabolic acdosis, 2/2 lactic acidosis, Sod bicarb drip, monitor. Replete lytes as needed. Monitor lytes and volume status. 3. Acute Hypoxemic Respiratory Failure / Multifocal Pneumonia / CAP: Chest X-ray was concerning for multifocal pneumonia. Patient intubated on 03/10 due to tachypnea and worsening MS. 4. Hypotension / NSTEMI: Presented with hypotension. Levophed, wean as tolerated. Midodrine. Followed Cards. 5. Sepsis: Likley 2/2 Multifocal Pneumonia/CAP. Covid negative. Abx. Monitor. 6. Acute Metabolic Encephalopathy: H/o Seizure Disorder. Now intubated on vent. Keppra. Seizure precautions. 7. Elevated D-Dimer: Per primary. 8. MS with paraplegia: Bedbound status. Supportive care. D/w ICU team. Subjective: Patient was seen and examined at the bedside. Examination: General appearance: well-developed, appears stated age, no distress, intubated, on vent HEENT: ATNC, pupils equal, no icterus Neck: trachea midline Respiratory: decreased breath sounds bilaterally Cardiology: regular, S1S2, no murmur Gastrointestinal: soft, normoactive bowel sounds, not tender Integumentary: no obvious rash Neurologic: not responding Ext: 2+ LE, dependent edema and anasarca noted : medina catheter Subjective Date of service: 03/20/22 Principal diagnosis: AHRF; Multifocal Pneumonia; Septic shock; NSTEMI; AMS; Seizures Objective - Vital Signs Vital signs: Vital Signs - 12hr 03/20/22 03/20/22 03/20/22 02:15 02:30 02:45 Temperature Pulse Rate 100 H 99 H 100 H Pulse Rate [ From Monitor] Pulse Rate [ Right Radial] Respiratory 28 H 29 H 30 H Rate Blood Pressure 97/71 104/66 102/70 O2 Sat by Pulse 99 99 99 Oximetry 03/20/22 03/20/22 03/20/22 03:00 03:15 03:30 Temperature Pulse Rate 99 H 95 H 99 H Pulse Rate [ From Monitor] Pulse Rate [ Right Radial] Respiratory 29 H 21 22 Rate Blood Pressure 102/65 103/67 107/78 O2 Sat by Pulse 99 96 100 Oximetry 03/20/22 03/20/22 03/20/22 03:45 04:00 04:15 Temperature Pulse Rate 96 H 101 H 98 H Pulse Rate [ From Monitor] Pulse Rate [ 101 H Right Radial] Respiratory 31 H 27 H 29 H Rate Blood Pressure 115/68 106/65 101/71 O2 Sat by Pulse 93 97 95 Oximetry 03/20/22 03/20/22 03/20/22 04:30 04:45 04:57 Temperature Pulse Rate 99 H 99 H 97 H Pulse Rate [ From Monitor] Pulse Rate [ Right Radial] Respiratory 29 H 29 H Rate Blood Pressure 104/63 95/68 95/68 O2 Sat by Pulse 96 96 97 Oximetry 03/20/22 03/20/22 03/20/22 05:00 05:15 05:30 Temperature Pulse Rate 97 H 96 H 97 H Pulse Rate [ From Monitor] Pulse Rate [ Right Radial] Respiratory 29 H 24 27 H Rate Blood Pressure 100/69 103/69 103/70 O2 Sat by Pulse 96 94 96 Oximetry 03/20/22 03/20/22 03/20/22 05:45 06:00 06:15 Temperature Pulse Rate 99 H 98 H 99 H Pulse Rate [ From Monitor] Pulse Rate [ Right Radial] Respiratory 28 H 30 H 29 H Rate Blood Pressure 101/73 102/66 102/69 O2 Sat by Pulse 98 96 97 Oximetry 03/20/22 03/20/22 03/20/22 06:30 06:45 07:00 Temperature Pulse Rate 95 H 99 H 100 H Pulse Rate [ From Monitor] Pulse Rate [ Right Radial] Respiratory 27 H 20 27 H Rate Blood Pressure 104/59 103/67 107/69 O2 Sat by Pulse 94 100 99 Oximetry 03/20/22 03/20/22 03/20/22 07:10 07:15 07:27 Temperature 98.0 F Pulse Rate 95 H 95 H Pulse Rate [ From Monitor] Pulse Rate [ Right Radial] Respiratory 31 H Rate Blood Pressure 98/63 99/61 O2 Sat by Pulse 83 L 97 Oximetry 03/20/22 03/20/22 03/20/22 07:30 07:45 08:00 Temperature Pulse Rate 92 H 98 H 99 H Pulse Rate [ From Monitor] Pulse Rate [ Right Radial] Respiratory 23 20 21 Rate Blood Pressure 106/61 105/65 106/66 O2 Sat by Pulse 88 97 Oximetry 03/20/22 03/20/22 03/20/22 08:15 08:30 08:45 Temperature Pulse Rate 98 H 98 H 93 H Pulse Rate [ From Monitor] Pulse Rate [ Right Radial] Respiratory 19 18 19 Rate Blood Pressure 98/64 102/63 104/61 O2 Sat by Pulse 97 96 Oximetry 03/20/22 03/20/22 03/20/22 08:50 09:00 09:15 Temperature Pulse Rate 96 H 96 H Pulse Rate [ 96 H From Monitor] Pulse Rate [ Right Radial] Respiratory 21 23 23 Rate Blood Pressure 92/62 100/61 O2 Sat by Pulse 97 95 96 Oximetry 03/20/22 03/20/22 03/20/22 09:30 09:45 10:00 Temperature Pulse Rate 95 H 95 H 95 H Pulse Rate [ From Monitor] Pulse Rate [ Right Radial] Respiratory 19 20 18 Rate Blood Pressure 100/65 97/58 92/58 O2 Sat by Pulse 97 96 97 Oximetry 03/20/22 03/20/22 03/20/22 10:15 10:30 10:45 Temperature Pulse Rate 95 H 95 H 94 H Pulse Rate [ From Monitor] Pulse Rate [ Right Radial] Respiratory 19 22 19 Rate Blood Pressure 89/58 88/60 96/58 O2 Sat by Pulse 96 99 Oximetry 03/20/22 03/20/22 03/20/22 11:00 11:15 11:30 Temperature Pulse Rate 94 H 94 H 94 H Pulse Rate [ From Monitor] Pulse Rate [ Right Radial] Respiratory 21 21 19 Rate Blood Pressure 89/58 91/60 90/56 O2 Sat by Pulse 96 Oximetry 03/20/22 03/20/22 03/20/22 11:45 12:00 12:08 Temperature Pulse Rate 94 H 95 H 95 H Pulse Rate [ From Monitor] Pulse Rate [ Right Radial] Respiratory 21 19 Rate Blood Pressure 83/59 93/60 O2 Sat by Pulse 96 Oximetry 03/20/22 12:09 Temperature 98.6 F Pulse Rate Pulse Rate [ From Monitor] Pulse Rate [ Right Radial] Respiratory Rate Blood Pressure O2 Sat by Pulse Oximetry - Lab 03/20/22 05:20 03/20/22 05:20 Most recent lab results ABG pH 7.278 pH Units (7.350-7.450) L 03/20/22 10:05 ABG pCO2 56.0 mm Hg 03/20/22 10:05 ABG pO2 71.0 mm Hg (80.0-90.0) L 03/20/22 10:05 ABG HCO3 25.6 mmol/L (20.0-26.0) 03/20/22 10:05 ABG O2 Saturation 92.6 % (95.0-99.0) L 03/20/22 10:05 Calcium 8.6 mg/dL (8.4-10.2) 03/20/22 05:20 Phosphorus 3.70 mg/dL (2.5-4.5) 03/18/22 05:20 Magnesium 2.00 mg/dL (1.7-2.3) 03/18/22 05:20 Urine Creatinine 34.4 mg/dL (0.1-20.0) H 03/19/22 14:40 Urine Sodium 18 mmol/L 03/19/22 14:40 Medications & Allergies - Medications Allergies/Adverse Reactions: Allergies Penicillins Allergy (Mild, Verified 01/11/19 12:20) Rash . Home Medications: Home Medications Medication Instructions Recorded Confirmed Last Taken Type Ciprofloxacin HCl [Ciprofloxacin 500 mg PO Q12H #14 tab 01/11/19 Unknown Rx TAB] levETIRAcetam [Keppra TAB] 500 mg PO BID #60 tablet 01/11/19 Unknown Rx Active Medications: Generic Name Dose Route Start Last Admin Trade Name Freq PRN Reason Stop Dose Admin Acetaminophen 650 mg 03/13/22 05:50 03/19/22 18:38 Acetaminophen 325 Mg/10.15 Ml Oral Liqd Unit Dose FEEDTUBE 650 mg Q6H PRN Administration Non Cardiac Pain or Temp>100.5 Bisacodyl 10 mg 03/15/22 10:00 Bisacodyl 5 Mg Tab PO QDAY PRN Constipation Enoxaparin Sodium 40 mg 03/12/22 10:00 03/20/22 09:32 Enoxaparin 40 Mg/0.4 Ml Inj SUB-Q 40 mg QDAY@1000 SHAHBAZ Administration Protocol Famotidine 20 mg 03/12/22 10:00 03/20/22 09:34 Famotidine 20 Mg Tab FEEDTUBE 20 mg BID SHAHBAZ Administration Fentanyl 50 mcg 03/10/22 10:58 03/14/22 20:48 Fentanyl 100 Mcg/2 Ml Inj IV 50 mcg Q10MIN PRN Administration ANALGESIA Hydrophilic Ointment 1 applic 03/10/22 11:03 Lip Therapy Vaseline TP Q2HR PRN Dry Lips Fentanyl Citrate 2,000 mcg in 100 mls @ 4.16 mls/hr 03/10/22 11:00 03/20/22 07:08 Fentanyl Drip Premix IV 3 mcg/kg/hr TITR SHAHBAZ 12.48 mls/hr Titration Protocol 1 MCG/KG/HR NORepinephrine/NS 8 MG-250 ML 8 mg in 250 mls @ 3.75 mls/hr 03/10/22 11:00 03/20/22 13:03 Norepinephrine/Ns 8 Mg-250 Ml (Double Conc) IV 4 mcg/min TITRATE SHAHBAZ 7.5 mls/hr Titration Protocol 2 MCG/MIN Meropenem/Sodium Chloride 1 gram in 100 mls @ 100 mls/hr 03/14/22 22:00 03/20/22 13:17 Merrem/Ns 1 Gram/100 Ml IV 100 mls/hr Q8H SHAHBAZ Administration Protocol Sodium Bicarbonate 150 meq/ 1,150 mls @ 75 mls/hr 03/19/22 16:00 03/19/22 17:30 Dextrose IV 03/21/22 07:19 75 mls/hr DIRECT SHAHBAZ Administration Levofloxacin/Dextrose 750 mg in 150 mls @ 100 mls/hr 03/20/22 12:00 03/20/22 13:03 Levaquin 750mg/150ml IV 03/25/22 11:59 Infused Q24H SHAHBAZ Infusion Protocol Levetiracetam 500 mg 03/12/22 10:00 03/20/22 09:32 Levetiracetam 500 Mg/5 Ml Oral Liqd FEEDTUBE 500 mg BID SHAHBAZ Administration Magnesium Hydroxide 30 ml 03/10/22 02:56 Magnesium Hydroxide (Mom) Oral Liqd Udc PO Q4H PRN Constipation Multi-Ingred Cream/Lotion/Oil/Oint 1 applic 03/10/22 11:03 Mineral Oil/Petrolatum, White Ophth Oint 3.5 Gm OU Q4HR PRN Dry Eye(s) Ondansetron HCl 4 mg 03/10/22 02:56 Ondansetron 4 Mg/2 Ml Inj IV Q8H PRN Nausea And Vomiting Polyethylene Glycol 17 gm 03/12/22 10:00 03/20/22 09:34 Polyethylene Glycol 3350 17 Gm Powder FEEDTUBE Not Given QDAY SHAHBAZ Scopolamine 1 each 03/21/22 10:00 Scopolamine Transdermal Patch 72 Hr TD Q3D SHAHBAZ Senna/Docusate Sodium 2 tab 03/14/22 10:00 03/20/22 09:33 Sennosides/Docusate Sodium 8.6/50 Mg Tab FEEDTUBE Not Given Q12H SHAHBAZ Sodium Chloride 10 ml 03/10/22 10:00 03/20/22 09:34 Sodium Chloride 0.9% 10 Ml Flush Syringe IV 10 ml BID SHAHBAZ Administration Sodium Chloride 10 ml 03/10/22 02:56 Sodium Chloride 0.9% 10 Ml Flush Syringe IV PRN PRN LINE FLUSH
[2022-03-20] MEDS ORDERED: ALBUMIN HUMAN 25% (25 GM/100 ML) INJ IV SCH (14:45)
[2022-03-20] MEDS ORDERED: FUROSEMIDE 40 MG/4 ML INJ IV SCH (15:15)
[2022-03-20] MEDS: MIDODRINE 10 MG TAB PO SCH (15:47)
[2022-03-20] MEDS: NORepinephrine/NS 8 MG-250 ML 8 MG/250 ML INFUS..BTL IV SCH (18:45)
[2022-03-21] MEDS: SENNOSIDES/DOCUSATE SODIUM 8.6/50 MG TAB FEEDTUBE SCH ×3 (02:27→21:23)
[2022-03-21 04:54] LABS: Hematocrit 22.8 % (30.3-42.9); Hemoglobin 7.3 gm/dl (10.1-14.3); Mean Corpuscular HGB Conc 32 % (30-34); Mean Corpuscular Volume 87 fl (79-97); Platelet Count 462 K/mm3 (140-440); Red Blood Count 2.61 M/mm3 (3.65-5.03); Red Cell Distribution Width 16.8 % (13.2-15.2)
[2022-03-21 05:15] LABS: Calcium 8.5 mg/dL (8.4-10.2)
[2022-03-21] MEDS: fentaNYL DRIP Premix 2,000 MCG/100 ML BAG IV SCH ×4 (05:52→22:11)
[2022-03-21] MEDS: MEROPENEM/NS 1 GRAM/100 ML 1 GRAM/100 ML BAG IV SCH ×2 (05:53→14:11)
[2022-03-21 07:00] LABS: Anisocytosis 1+; Band Neutrophils # (Manual) 3.1 K/mm3; Basophils % (Manual) 0 % (0.0-1.8); Promyelocytes # (Manual) 0.5 K/mm3; Total Cells Counted 100
[2022-03-21 07:01] LABS: Hypochromasia 3+; Large Platelets Few; Ovalocytes 1+; Platelet Estimate Consistent w Auto; Schistocytes Few; Target Cells Rare; Tear Drop Cells Few
[2022-03-21] MEDS: MIDODRINE 10 MG TAB PO SCH ×2 (07:40→12:04)
[2022-03-21] MEDS ORDERED: SODIUM POLYSTYRENE 15 GM/60 ML ORAL LIQD PO SCH (09:00)
[2022-03-21] MEDS: POLYETHYLENE GLYCOL 3350 17 GM POWDER FEEDTUBE SCH (10:19)
[2022-03-21] MEDS: FAMOTIDINE 20 MG TAB FEEDTUBE SCH ×2 (10:28→21:21)
[2022-03-21] MEDS: ENOXAPARIN 40 MG/0.4 ML INJ SUB-Q SCH (10:28)
[2022-03-21] MEDS: SCOPOLAMINE TRANSDERMAL PATCH 72 HR TD SCH (10:28)
[2022-03-21] MEDS: levETIRAcetam 500 MG/5 ML ORAL LIQD FEEDTUBE SCH ×2 (10:28→21:22)
--- NOTE | 2022-03-21 11:23 | Progress Note ---
Assessment and Plan 1. Acute kidney injury: Vasomotor TANIYA in the setting of shock. ATN. Patient has medina catheter. Monitor renal function. Creatinine level is increasing. UOP is low. Avoid nephrotoxic agents. Meds dosage based on GFR. No acute indication for GAS TESTER. 2. 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 Associated volume overload. Sodium level is better / fluctuates. 3. FEN: Hyeprkalemia, Kayaxalate, monitor. Volume overload, diuretics as BP allows. Anion-gap metabolic acdosis, 2/2 lactic acidosis, Sod bicarb drip, monitor. Replete lytes as needed. Monitor lytes and volume status. 4. Acute Hypoxemic Respiratory Failure / Multifocal Pneumonia / CAP: Chest X-ray was concerning for multifocal pneumonia. Eleavted D-dimer. Patient intubated on 03/10 due to tachypnea and worsening MS. 5. Hypotension / NSTEMI: Presented with hypotension. Levophed, wean as tolerated. Midodrine. Followed Cards. 6. Sepsis: Likley 2/2 Multifocal Pneumonia/CAP. Covid negative. Abx. Monitor. 7. Acute Metabolic Encephalopathy: H/o Seizure Disorder. Now intubated on vent. Keppra. Seizure precautions. 8. MS with paraplegia: Bedbound status. Supportive care. Prognosis sis slim. D/w ICU team. Subjective: Patient was seen and examined at the bedside. Examination: General appearance: well-developed, appears stated age, no distress, intubated, on vent HEENT: ATNC, pupils equal, no icterus Neck: trachea midline Respiratory: decreased breath sounds bilaterally Cardiology: regular, S1S2, no murmur Gastrointestinal: soft, normoactive bowel sounds, not tender Integumentary: no obvious rash Neurologic: not responding Ext: 2+ LE, dependent edema and anasarca noted : medina catheter Subjective Date of service: 03/21/22 Principal diagnosis: AHRF; Multifocal Pneumonia; Septic shock; NSTEMI; AMS; Seizures Objective - Vital Signs Vital signs: Vital Signs - 12hr 03/20/22 03/20/22 03/20/22 23:30 23:33 23:45 Temperature Pulse Rate 106 H 104 H 104 H Pulse Rate [ From Monitor] Respiratory 23 22 Rate Blood Pressure 96/63 96/63 92/63 O2 Sat by Pulse 97 94 95 Oximetry 07/06/22 07/06/22 07/06/22 00:00 00:10 00:15 Temperature 99.4 F Pulse Rate 98 H 99 H Pulse Rate [ 105 H From Monitor] Respiratory 19 22 Rate Blood Pressure 85/52 95/59 O2 Sat by Pulse 95 96 Oximetry 03/21/22 03/21/22 03/21/22 00:30 00:46 01:00 Temperature Pulse Rate 98 H 100 H 97 H Pulse Rate [ From Monitor] Respiratory 32 H 23 22 Rate Blood Pressure 91/50 90/65 100/53 O2 Sat by Pulse 94 97 98 Oximetry 03/21/22 03/21/22 03/21/22 01:16 01:30 01:45 Temperature Pulse Rate 104 H 101 H 97 H Pulse Rate [ From Monitor] Respiratory 24 23 25 H Rate Blood Pressure 95/53 96/63 105/64 O2 Sat by Pulse 89 Oximetry 03/21/22 03/21/22 03/21/22 02:00 02:16 02:30 Temperature Pulse Rate 99 H 96 H 99 H Pulse Rate [ From Monitor] Respiratory 25 H 25 H 24 Rate Blood Pressure 105/64 96/63 94/65 O2 Sat by Pulse Oximetry 03/21/22 03/21/22 03/21/22 02:46 03:00 03:04 Temperature Pulse Rate 97 H 94 H 93 H Pulse Rate [ From Monitor] Respiratory 24 25 H 25 H Rate Blood Pressure 89/59 91/59 91/59 O2 Sat by Pulse 98 93 Oximetry 03/21/22 03/21/22 03/21/22 03:16 03:30 03:32 Temperature Pulse Rate 93 H 95 H 94 H Pulse Rate [ From Monitor] Respiratory 24 24 Rate Blood Pressure 95/57 96/67 96/67 O2 Sat by Pulse 85 96 Oximetry 03/21/22 03/21/22 03/21/22 03:46 04:00 04:16 Temperature 98.7 F Pulse Rate 94 H 92 H 95 H Pulse Rate [ 90 From Monitor] Respiratory 24 24 23 Rate Blood Pressure 90/60 90/55 96/57 O2 Sat by Pulse 93 96 90 Oximetry 03/21/22 03/21/22 03/21/22 04:31 04:45 05:01 Temperature Pulse Rate 107 H 93 H 93 H Pulse Rate [ From Monitor] Respiratory 23 25 H 25 H Rate Blood Pressure 104/50 97/59 90/60 O2 Sat by Pulse 95 86 Oximetry 03/21/22 03/21/22 03/21/22 05:15 05:31 05:45 Temperature Pulse Rate 94 H 93 H Pulse Rate [ From Monitor] Respiratory 26 H 26 H Rate Blood Pressure 99/66 112/41 O2 Sat by Pulse 97 94 Oximetry 03/21/22 03/21/22 03/21/22 06:00 06:15 06:30 Temperature Pulse Rate 94 H 87 91 H Pulse Rate [ From Monitor] Respiratory 31 H 16 21 Rate Blood Pressure 97/68 103/55 95/56 O2 Sat by Pulse 83 L Oximetry 03/21/22 03/21/22 03/21/22 06:45 07:01 07:15 Temperature Pulse Rate 88 92 H 92 H Pulse Rate [ From Monitor] Respiratory 22 24 25 H Rate Blood Pressure 92/52 89/56 90/59 O2 Sat by Pulse 88 Oximetry 03/21/22 03/21/22 03/21/22 07:31 07:43 07:45 Temperature 99.3 F Pulse Rate 93 H 90 Pulse Rate [ From Monitor] Respiratory 25 H 25 H Rate Blood Pressure 91/59 98/65 O2 Sat by Pulse Oximetry 03/21/22 03/21/22 03/21/22 07:48 07:52 08:00 Temperature Pulse Rate 92 H 88 94 H Pulse Rate [ From Monitor] Respiratory 24 Rate Blood Pressure 90/59 102/59 O2 Sat by Pulse 97 93 Oximetry 03/21/22 08:02 Temperature Pulse Rate Pulse Rate [ 90 From Monitor] Respiratory 24 Rate Blood Pressure O2 Sat by Pulse 96 Oximetry - Lab 03/21/22 04:40 03/21/22 04:00 Most recent lab results ABG pH 7.278 pH Units (7.350-7.450) L 03/20/22 10:05 ABG pCO2 56.0 mm Hg 03/20/22 10:05 ABG pO2 71.0 mm Hg (80.0-90.0) L 03/20/22 10:05 ABG HCO3 25.6 mmol/L (20.0-26.0) 03/20/22 10:05 ABG O2 Saturation 92.6 % (95.0-99.0) L 03/20/22 10:05 Calcium 8.5 mg/dL (8.4-10.2) 03/21/22 04:00 Phosphorus 3.70 mg/dL (2.5-4.5) 03/18/22 05:20 Magnesium 2.00 mg/dL (1.7-2.3) 03/18/22 05:20 Urine Creatinine 34.4 mg/dL (0.1-20.0) H 03/19/22 14:40 Urine Sodium 18 mmol/L 03/19/22 14:40 Medications & Allergies - Medications Allergies/Adverse Reactions: Allergies Penicillins Allergy (Mild, Verified 01/11/19 12:20) Rash . Home Medications: Home Medications Medication Instructions Recorded Confirmed Last Taken Type Ciprofloxacin HCl [Ciprofloxacin 500 mg PO Q12H #14 tab 01/11/19 Unknown Rx TAB] levETIRAcetam [Keppra TAB] 500 mg PO BID #60 tablet 01/11/19 Unknown Rx Active Medications: Generic Name Dose Route Start Last Admin Trade Name Freq PRN Reason Stop Dose Admin Acetaminophen 650 mg 03/13/22 05:50 03/19/22 18:38 Acetaminophen 325 Mg/10.15 Ml Oral Liqd Unit Dose FEEDTUBE 650 mg Q6H PRN Administration Non Cardiac Pain or Temp>100.5 Bisacodyl 10 mg 03/15/22 10:00 Bisacodyl 5 Mg Tab PO QDAY PRN Constipation Enoxaparin Sodium 40 mg 03/12/22 10:00 03/21/22 10:28 Enoxaparin 40 Mg/0.4 Ml Inj SUB-Q 40 mg QDAY@1000 SHAHBAZ Administration Protocol Famotidine 20 mg 03/12/22 10:00 03/21/22 10:28 Famotidine 20 Mg Tab FEEDTUBE 20 mg BID SHAHBAZ Administration Fentanyl 50 mcg 03/10/22 10:58 03/14/22 20:48 Fentanyl 100 Mcg/2 Ml Inj IV 50 mcg Q10MIN PRN Administration ANALGESIA Hydrophilic Ointment 1 applic 03/10/22 11:03 Lip Therapy Vaseline TP Q2HR PRN Dry Lips Fentanyl Citrate 2,000 mcg in 100 mls @ 4.16 mls/hr 03/10/22 11:00 03/21/22 05:52 Fentanyl Drip Premix IV 4 mcg/kg/hr TITR SHAHBAZ 16.64 mls/hr Administration Protocol 1 MCG/KG/HR NORepinephrine/NS 8 MG-250 ML 8 mg in 250 mls @ 3.75 mls/hr 03/10/22 11:00 03/20/22 18:45 Norepinephrine/Ns 8 Mg-250 Ml (Double Conc) IV 4 mcg/min TITRATE SHAHBAZ 7.5 mls/hr Administration Protocol 2 MCG/MIN Meropenem/Sodium Chloride 1 gram in 100 mls @ 100 mls/hr 03/14/22 22:00 03/21/22 05:53 Merrem/Ns 1 Gram/100 Ml IV 03/21/22 14:59 100 mls/hr Q8H SHAHBAZ Administration Protocol Levofloxacin/Dextrose 750 mg in 150 mls @ 100 mls/hr 03/20/22 12:00 03/20/22 13:03 Levaquin 750mg/150ml IV 03/24/22 13:29 Infused Q24H SHAHBAZ Infusion Protocol Levetiracetam 500 mg 03/12/22 10:00 03/21/22 10:28 Levetiracetam 500 Mg/5 Ml Oral Liqd FEEDTUBE 500 mg BID SHAHBAZ Administration Magnesium Hydroxide 30 ml 03/10/22 02:56 Magnesium Hydroxide (Mom) Oral Liqd Udc PO Q4H PRN Constipation Midodrine 10 mg 03/20/22 16:00 03/21/22 07:40 Midodrine 10 Mg Tab PO 10 mg TID@0800,1200,1600 SHAHBAZ Administration Multi-Ingred Cream/Lotion/Oil/Oint 1 applic 03/10/22 11:03 Mineral Oil/Petrolatum, White Ophth Oint 3.5 Gm OU Q4HR PRN Dry Eye(s) Ondansetron HCl 4 mg 03/10/22 02:56 Ondansetron 4 Mg/2 Ml Inj IV Q8H PRN Nausea And Vomiting Polyethylene Glycol 17 gm 03/12/22 10:00 03/21/22 10:19 Polyethylene Glycol 3350 17 Gm Powder FEEDTUBE Not Given QDAY SHAHBAZ Scopolamine 1 each 03/21/22 10:00 03/21/22 10:28 Scopolamine Transdermal Patch 72 Hr TD 1 each Q3D SHAHBAZ Administration Senna/Docusate Sodium 2 tab 03/14/22 10:00 03/21/22 10:19 Sennosides/Docusate Sodium 8.6/50 Mg Tab FEEDTUBE Not Given Q12H SHAHBAZ Sodium Chloride 10 ml 03/10/22 10:00 03/21/22 10:20 Sodium Chloride 0.9% 10 Ml Flush Syringe IV 10 ml BID SHAHBAZ Administration Sodium Chloride 10 ml 03/10/22 02:56 Sodium Chloride 0.9% 10 Ml Flush Syringe IV PRN PRN LINE FLUSH Sodium Polystyrene Sulfonate 30 gm 03/21/22 09:00 03/21/22 10:19 Sodium Polystyrene 15 Gm/60 Ml Oral Liqd PO 03/21/22 13:00 30 gm ONCE@0900 SHAHBAZ Administration
--- NOTE | 2022-03-21 12:52 | Progress Note ---
<KITTY MICHELLE - Last Filed: 03/21/22 19:32> Assessment and Plan Assessment and plan: This is a 61-year-old female with known past medical history of Multiple Sclerosis and seizure disorder admitted for sepsis, Hyponatremia, and acute hypoxic respiratory failure requiring ventilatory support Hospital Course to Date: 03/10: S/p intubation this am due to tachypnea and worsen mental status. Current sedated and stable on the vent. Patient is now on low dose Levophed gtt due to hypotension. Presented with a Na level of 119, on continuous NS at 125ml, repeat BMP pending. Continue IVF hydration and serial Na Q6hrs. Nephrology is also following. Continue empiric IV Abx for CAP, COVID PCR pending, ID consult pending. D-Dimer also elevated, BLE doppler ordered, therapeutic Lovenox initiated. D/W CCM patient is too unstable for transport at this time, possible CTA chest in the am or once patient is more stable. Cardiology was also consulted for elevated troponin X2, EKG noted with no significant ST changes, 2D echo pending. Resume home AEDs, continue seizure precautions. Monitor and repla ce electrolytes as needed 03/11: Intubated and low dose fentanyl gtt. Open eyes spontaneously but does not track, not following commands. NA level 132 this am, Nabcarb gtt initiated per Nephro. CT head/brain w/o con ordered to r/o intracranial abnormality. Wean off sedation to better assess mental status. Remains on Levophed gtt, afebrile, but with leukocytosis this am. This am CXR and ABG noted, with significant improvement. D/w CCM, PE less likely will hold off on CTA chest for now. Lovenox switched to Qday. Continue empiric IV Abx, ID consult pending. 03/12: Discontinue bicarb gtt, replete phos and potassium, added miralax. Remain on levo and fent gtt 03/13: MRI brain/C-spine completed, EEG completed. Hyponatremia improved, patient remains on Levophed. Had a temperature of 101.3 remains on cefepime. Will defer to ID for abx. Will reculture on next temperature spike. 03/14: Overnight patient had hypoxia issues and FiO2 was increased to 100%, received lasix with repeat dose in AM. Hypotension and increase in levophed. Replete K. 03/15: hypoxia overnight and currently on 100%. RN attempted to lay flat and patient desatted to 88%. Will attempt again later today. Given lasix again. Hopeful to be able to have MRI today. Type and screen today for downtrending h/h, Wean FiO2 as tolerated, repelted phos with sodium phos. 03/16: hypoxic, fio2: 80%, desats on positional movements. Remains on levophed gtt, attempting to wean off. Remains too unstable for MRI brain. May benefit f rom steroids if altered mentation believed to be from MS flare. 03/17: Hypoxic overnight. FIO2 increased to 95%. Continue icu level supportive care with vent, levophed Gtt, merrem. Hgb 6.6 this AM, ordered 1 unit prbc. 03/18: WBC uptrending, persisting fevers. will re-culture with urine cx, sputum cx and bcx. Overall poor prognosis. Will attempt GOK discussion with family. 03/19: With persistent episodes of hypoxia overnight and this am. On 65% Fio2 and peep of 14 this am. Fevers improved, but leukocytosis worsen this am. Repeat cultures pending, continue current IV Abx per ID. Patient remains on Levophed gtt. X1 dose of kayexalate this am for hyperkalemia, worsening azotemia also noted, Nephrology is also following. Overall poor prognosis, possible GOC discussion with patient's son sometimes this week. 03/20: Up to 80% Fio2 and peep of 14 this am, still with periods of hypoxia with mild stimuli/movement. Severe generalized edema today with worsening CXR. Azotemia worsen s/p bcarb gtt. D/w Nephro, X1 dose of IV lasix and 25% Albumin given and Midodrine TID added. Overal poor prognosis. Possible GOC discussion with patient's son sometimes this week. 03/21: Mentation unchanged, remains on high vent settings. Patient did not respond to IV lasix yesterday, only 415ml UOP in the last 24hrs. Renal function worsen this am with hyperkalemia, X1 dose of kayexalate ordered. Nephrology is also following. Continue to monitor renal function and electrolytes. Possible phone conference today with son by the attending. Very poor prognosis. Assessment and Plan #ARDS #Acute Hypoxemic Respiratory Failure #Multifocal Pneumonia/CAP - Brought in from home by EMS due to SOB and difficulty breathing - SPO2 was in the 50s on RA, placed on CPAP. Then Bipap in the ED - Chest x-ray was concerning for multifocal pneumonia. - Patient intubated on 03/10 due to tachypnea and worsen mental - Now in ARDS, frequent desaturations and hypoxia overnight and this am - Vent setting: PRVC-80%,14,14, 400 - This am ABG noted - X1 dose of Iv lasix with 25% Albumin administered - CCM consulted, appreciate recommendations - Continue empiric IV Abx - VAP bundle addressed - Aspiration precaution HOB above 30 - Daily SBT and SAT trials as tolerated - Daily ABG and CXR - Continue SPO2 monitoring for SPO2 goal above 92% #Hypotension 2/2 #Septic Shock #NSTEMI/Elevated Troponin #Elevated BNP - Presented with hypotension now on low dose pressors-Levophed - Positive troponin X2, EKG noted with no significant ST changed - BNP 11371 on admit - remains on Levophed gtt this am - Midodrine added TID - 2D Echo LVEF 50%, no pulmonary HTN. See report for details - With generalized pitting edema, s/p IV lasix X3days - X1 dose of IV lasix with 25% Albumin given - Cardiology consulted, appreciated recommendations - Continue blood pressure monitor per protocol - Titrate pressor to maintain MAP above 65 - VTE phroph- Lovenox SubQ #Acute Kidney Injury(TANIYA) most likely ATN #Azotemia #Severe Hyponatremia- improved #Hypokalemia-resolved - Presented with a Na level of 119, Probably due to dehydration - Renal function continue to worsen, most likely due to hypoperfusion/hypotension - S/p IVF hydrationa and Bicarb gtt - S/p X3 dose of IV lasix, additional Lasix given yesterday- Unresponsive - Now oliguric, only 415cc out in last 24hrs - Nephrology consulted, appreciate recommendations - Strict intake and output - Avoid nephrotoxic medications - Monitor and replace electrolytes as needed #Septic Shock #Multifocal Pneumonia/CAP #Leukocytosis #Lactic Acidosis-resolved - Brought in from home by EMS due to SOB and difficulty breathing, Hypotensive, with elevated lactic acid, WBCs wnr - Chest x-ray was concerning for multifocal pneumonia - COVID PCR negative - UA with elevated Wbcs - urine and blood cultures with NGTD - CRP unremarkable, procal noted - Sudheer temp yesterday and was recultures. Cultures pending - ID consulted, appreciate recommendations - IV Abx was escalated to meropenem an levaquin per ID - F/U on cultures - Continue to CBC #Acute Metabolic Encephalopathy #H/o Multiple Sclerosis and Seizure Disorder - Intubated and sedated, on fentanyl gtt - CT head shows vascular angioplasty without clear evidence of acute intracranial hemorrhage - MRI brain with and without contrast and MRI C-spine with and without contrast pending, patient is too unstable for transportation - EEG considered abnormal and is compatible with diffuse encephalopathy of perh aps significant brain sedation or neuro active medication or daily combination of both. Absence of epileptiform abnormality but would not rule out possibility of epilepsy - UDS (+) for opiates - Resumed home Keppra - Neurology consulted, appreciate recommendations - Avoid benzodiazepine to reduce the possibility of delirium - Titrate sedation for RASS goal 0 to -1 - PRN Analgesia for CPOT greater than 3 - Maintenance of sleep-wake cycle - Seizure precaution #Elevated D-Dimer - COVID PCR negative - BLE [place] negative DVT - on Lovenox SubQ #Moderate Protein Calorie Malnutrition - DHT inserted - Initiated enteral nutrition - Nutrition consulted #GI/DVT Prophylaxis - PPI- Pepcid - Lovenox SubQ - SCDs to bilateral lower extremities while in bed #Advance Care Planning - Disease education data, care plan, diagnoses, and prognosis discussed with patient's son Homar Bailey #[phone]. All questions and concerns were addressed at this time. Patient's son acknowledged understanding and agreement with current care plan. Patient is a FULL code. The high probability of a clinically significant, sudden or life threatening deterioration of the [multiple] system(s) required my full and direct attention, intervention and personal management. The aggregate critical care time was [60] minutes. This time is in addition to time spent performing reported procedures but includes the following: [x] Data Review and interpretation [x] Patient assessment and monitoring of vital signs [x] Documentation [x] Medication orders and management Disposition Plan: ICU Total Time Spent with Patient (Minutes): 60 History Interval history: Patient seen and examined at the bedside. Intubated and sedated. Remains on Levophed gtt. On 80% Fio2 and 14 peep. Low urine output overnight and this am Hospitalist Physical - Constitutional Vitals: Temp Pulse Resp BP Pulse Ox 99.3 F 90 24 102/59 96 03/21/22 07:43 03/21/22 08:02 03/21/22 08:02 03/21/22 08:00 03/21/22 08:02 General appearance: Present: no acute distress, other (sedated, intubated) - EENT Eyes: Present: PERRL - Respiratory Respiratory effort: normal Respiratory: bilateral: rales, rhonchi, wheezing - Cardiovascular Rhythm: regular Heart Sounds: Present: S1 & S2 - Extremities Extremities: no ischemia, pulses intact, pulses symmetrical Extremity abnormal: edema - Peripheral Assessment Generalized Edema Type: Pitting Edema Degree: 3+ Capillary Refill: < 3 seconds Skin Temperature: Warm Peripheral Pulses: within normal limits - Abdominal General gastrointestinal: soft, non-distended, normal bowel sounds - Integumentary Integumentary: Present: warm, dry - Psychiatric Psychiatric: other (sedated, intubated) - Neurologic Neurologic: other (sedated, intubated) - Allied Health Allied health notes reviewed: nursing, case management HEART Score - HEART Score Troponin: Troponin T 0.032 ng/mL (0.00-0.029) H D 03/10/22 12:24 Results - Labs CBC & Chem 7: 03/21/22 04:40 03/21/22 04:00 Labs: Laboratory Last Values WBC 25.6 K/mm3 (4.5-11.0) H 03/21/22 04:40 RBC 2.61 M/mm3 (3.65-5.03) L 03/21/22 04:40 Hgb 7.3 gm/dl (10.1-14.3) L 03/21/22 04:40 Hct 22.8 % (30.3-42.9) L 03/21/22 04:40 MCV 87 fl (79-97) 03/21/22 04:40 MCH 28 pg (28-32) 03/21/22 04:40 MCHC 32 % (30-34) 03/21/22 04:40 RDW 16.8 % (13.2-15.2) H 03/21/22 04:40 Plt Count 462 K/mm3 (140-440) H 03/21/22 04:40 Lymph % (Auto) 8.9 % (13.4-35.0) L 03/11/22 05:00 Lamb % (Auto) 4.2 % (0.0-7.3) 03/11/22 05:00 Eos % (Auto) 0.1 % (0.0-4.3) 03/11/22 05:00 Baso % (Auto) 0.2 % (0.0-1.8) 03/11/22 05:00 Lymph # (Auto) 1.2 K/mm3 (1.2-5.4) 03/11/22 05:00 Lamb # (Auto) 0.6 K/mm3 (0.0-0.8) 03/11/22 05:00 Eos # (Auto) 0.0 K/mm3 (0.0-0.4) 03/11/22 05:00 Baso # (Auto) 0.0 K/mm3 (0.0-0.1) 03/11/22 05:00 Add Manual Diff Complete 03/21/22 04:40 Total Counted 100 03/21/22 04:40 Seg Neutrophils % 86.6 % (40.0-70.0) H 03/11/22 05:00 Seg Neuts % (Manual) 71.0 % (40.0-70.0) H 03/21/22 04:40 Band Neutrophils % 12.0 % 03/21/22 04:40 Lymphocytes % (Manual) 2.0 % (13.4-35.0) L 03/21/22 04:40 Reactive Lymphs % (Man) 0 % 03/21/22 04:40 Monocytes % (Manual) 7.0 % (0.0-7.3) 03/21/22 04:40 Eosinophils % (Manual) 3.0 % (0.0-4.3) 03/21/22 04:40 Basophils % (Manual) 0 % (0.0-1.8) 03/21/22 04:40 Metamyelocytes % 3.0 % 03/21/22 04:40 Myelocytes % 0 % 03/21/22 04:40 Promyelocytes % 2.0 % 03/21/22 04:40 Blast Cells % 0 % 03/21/22 04:40 Nucleated RBC % 1.0 % (0.0-0.9) H 03/21/22 04:40 Seg Neutrophils # 11.8 K/mm3 (1.8-7.7) H 03/11/22 05:00 Seg Neutrophils # Man 18.2 K/mm3 (1.8-7.7) H 03/21/22 04:40 Band Neutrophils # 3.1 K/mm3 03/21/22 04:40 Lymphocytes # (Manual) 0.5 K/mm3 (1.2-5.4) L 03/21/22 04:40 Abs React Lymphs (Man) 0.0 K/mm3 03/21/22 04:40 Monocytes # (Manual) 1.8 K/mm3 (0.0-0.8) H 03/21/22 04:40 Eosinophils # (Manual) 0.8 K/mm3 (0.0-0.4) H 03/21/22 04:40 Basophils # (Manual) 0.0 K/mm3 (0.0-0.1) 03/21/22 04:40 Metamyelocytes # 0.8 K/mm3 03/21/22 04:40 Myelocytes # 0.0 K/mm3 03/21/22 04:40 Promyelocytes # 0.5 K/mm3 03/21/22 04:40 Blast Cells # 0.0 K/mm3 03/21/22 04:40 WBC Morphology Not Reportable 03/21/22 04:40 Hypersegmented Neuts Not Reportable 03/21/22 04:40 Hyposegmented Neuts Not Reportable 03/21/22 04:40 Hypogranular Neuts Not Reportable 03/21/22 04:40 Smudge Cells Not Reportable 03/21/22 04:40 Toxic Granulation Not Reportable 03/21/22 04:40 Toxic Vacuolation Not Reportable 03/21/22 04:40 Dohle Bodies Not Reportable 03/21/22 04:40 Pelger-Huet Anomaly Not Reportable 03/21/22 04:40 Luis Rods Not Reportable 03/21/22 04:40 Platelet Estimate Consistent w auto 03/21/22 04:40 Clumped Platelets Not Reportable 03/21/22 04:40 Plt Clumps, EDTA Not Reportable 03/21/22 04:40 Large Platelets Few 03/21/22 04:40 Giant Platelets Not Reportable 03/21/22 04:40 Platelet Satelliting Not Reportable 03/21/22 04:40 Plt Morphology Comment Not Reportable 03/21/22 04:40 RBC Morphology Not Reportable 03/21/22 04:40 Dimorphic RBCs Not Reportable 03/21/22 04:40 Polychromasia Not Reportable 03/21/22 04:40 Hypochromasia 3+ 03/21/22 04:40 Poikilocytosis Not Reportable 03/21/22 04:40 Anisocytosis 1+ 03/21/22 04:40 Microcytosis 1+ 03/21/22 04:40 Macrocytosis Not Reportable 03/21/22 04:40 Spherocytes Not Reportable 03/21/22 04:40 Pappenheimer Bodies Not Reportable 03/21/22 04:40 Sickle Cells Not Reportable 03/21/22 04:40 Target Cells Rare 03/21/22 04:40 Tear Drop Cells Few 03/21/22 04:40 Ovalocytes 1+ 03/21/22 04:40 Helmet Cells Not Reportable 03/21/22 04:40 [place] Bodies Not Reportable 03/21/22 04:40 [place] Rings Not Reportable 03/21/22 04:40 [place] Cells Not Reportable 03/21/22 04:40 Bite Cells Not Reportable 03/21/22 04:40 Crenated Cell Not Reportable 03/21/22 04:40 Elliptocytes Few 03/21/22 04:40 Acanthocytes (Spur) Not Reportable 03/21/22 04:40 Rouleaux Not Reportable 03/21/22 04:40 Hemoglobin C Crystals Not Reportable 03/21/22 04:40 Schistocytes Few 03/21/22 04:40 Malaria parasites Not Reportable 03/21/22 04:40 Tani Bodies Not Reportable 03/21/22 04:40 Hem Pathologist Commnt No 03/21/22 04:40 PT 14.9 Sec. (12.2-14.9) 03/10/22 01:25 INR 1.03 (0.87-1.13) 03/10/22 01:25 D-Dimer 787.78 ng/mlDDU (0-234) H 03/10/22 05:45 ABG pH 7.278 pH Units (7.350-7.450) L 03/20/22 10:05 ABG pCO2 56.0 mm Hg 03/20/22 10:05 ABG pO2 71.0 mm Hg (80.0-90.0) L 03/20/22 10:05 ABG HCO3 25.6 mmol/L (20.0-26.0) 03/20/22 10:05 ABG O2 Saturation 92.6 % (95.0-99.0) L 03/20/22 10:05 ABG O2 Content 10.6 (0.0-44) 03/20/22 10:05 ABG Base Excess -1.4 mmol/L (-2.0-3.0) 03/20/22 10:05 ABG Hemoglobin 8.2 gm/dl (12.0-16.0) L 03/20/22 10:05 ABG Carboxyhemoglobin 1.9 % (0.0-5.0) 03/20/22 10:05 ABG Methemoglobin 0.5 % (0.0-1.5) 03/20/22 10:05 Oxyhemoglobin 90.5 % (95.0-99.0) L 03/20/22 10:05 FiO2 80 % 03/20/22 10:05 Sodium 135 mmol/L (137-145) L 03/21/22 04:00 Potassium 5.7 mmol/L (3.6-5.0) H D 03/21/22 04:00 Chloride 97.4 mmol/L (98-107) L 03/21/22 04:00 Carbon Dioxide 21 mmol/L (22-30) L 03/21/22 04:00 Anion Gap 22 mmol/L 03/21/22 04:00 BUN 104 mg/dL (7-17) H 03/21/22 04:00 Creatinine 1.3 mg/dL (0.6-1.2) H 03/21/22 04:00 Estimated GFR 42 ml/min 03/21/22 04:00 BUN/Creatinine Ratio 80 % 03/21/22 04:00 Glucose 118 mg/dL (65-100) H 03/21/22 04:00 POC Glucose 95 mg/dL (70-105) 03/21/22 11:58 Osmolality 285 Mosm/kg 03/10/22 12:24 Lactic Acid 0.90 mmol/L (0.7-2.0) 03/18/22 05:20 Uric Acid 1.6 mg/dL (3.5-7.6) L 03/10/22 13:15 Calcium 8.5 mg/dL (8.4-10.2) 03/21/22 04:00 Phosphorus 3.70 mg/dL (2.5-4.5) 03/18/22 05:20 Magnesium 2.00 mg/dL (1.7-2.3) 03/18/22 05:20 Ferritin 219.2 ng/mL (10.0-200.0) H 03/10/22 05:45 Total Bilirubin 0.30 mg/dL (0.1-1.2) 03/18/22 05:20 AST 39 units/L (5-40) 03/18/22 05:20 ALT 14 units/L (7-56) 03/18/22 05:20 Alkaline Phosphatase 119 units/L (35-129) 03/18/22 05:20 Lactate Dehydrogenase 210 units/L (91-180) H 03/10/22 05:45 Total Creatine Kinase 901 units/L (30-135) H 03/10/22 12:24 CK-MB (CK-2) 15.3 ng/mL (0.0-4.0) H 03/10/22 12:24 CK-MB (CK-2) Rel Index 1.6 (0-4) 03/10/22 12:24 Troponin T 0.032 ng/mL (0.00-0.029) H D 03/10/22 12:24 C-Reactive Protein < 0.03 mg/dL (0.00-1.30) 03/10/22 05:45 NT-Pro-B Natriuret Pep 86186 pg/mL (0-900) H 03/10/22 01:25 Total Protein 5.4 g/dL (6.3-8.2) L 03/18/22 05:20 Albumin 2.0 g/dL (3.9-5) L 03/18/22 05:20 Albumin/Globulin Ratio 0.6 % 03/18/22 05:20 Prealbumin 0.044 g/L (0.200-0.400) L 03/12/22 18:40 Triglycerides 47 mg/dL (2-149) 03/10/22 01:25 Cholesterol 259 mg/dL (50-199) H 03/10/22 01:25 LDL Cholesterol Direct 187 mg/dL (50-130) H 03/10/22 01:25 HDL Cholesterol 63 mg/dL (40-59) H 03/10/22 01:25 Cholesterol/HDL Ratio 4.11 % 03/10/22 01:25 Lipase 15 units/L (13-60) 03/10/22 01:25 Vitamin B1 28 nmol/L (8-30) 03/13/22 08:00 Vitamin B12 1021 pg/mL (211-911) H 03/12/22 18:40 Folate 2.15 ng/mL (7.3-26.0) L 03/12/22 18:40 Procalcitonin 3.92 ng/mL (<0.15) 03/10/22 05:45 TSH 1.290 mlU/mL (0.270-4.200) 03/12/22 18:40 Urine Color Yellow (Yellow) 03/10/22 18:20 Urine Turbidity Clear (Clear) 03/10/22 18:20 Urine pH 6.0 (5.0-7.0) 03/10/22 18:20 Ur Specific [place] 1.010 (1.003-1.030) 03/10/22 18:20 Urine Protein <15 mg/dl mg/dL (Negative) 03/10/22 18:20 Urine Glucose (UA) Neg mg/dL (Negative) 03/10/22 18:20 Urine Ketones Tr mg/dL (Negative) 03/10/22 18:20 Urine Blood Sm (Negative) 03/10/22 18:20 Urine Nitrite Neg (Negative) 03/10/22 18:20 Urine Bilirubin Neg (Negative) 03/10/22 18:20 Urine Urobilinogen < 2.0 mg/dL (<2.0) 03/10/22 18:20 Ur Leukocyte Esterase Lg (Negative) 03/10/22 18:20 Urine WBC (Auto) 105.0 /HPF (0.0-6.0) H 03/10/22 18:20 Urine RBC (Auto) 2.0 /HPF (0.0-6.0) 03/10/22 18:20 U Epithel Cells (Auto) < 1.0 /HPF (0-13.0) 03/10/22 18:20 Urine Bacteria (Auto) 1+ /HPF (Negative) 03/10/22 18:20 Urine Osmolality 368 Mosm/kg 03/10/22 18:20 Urine Creatinine 34.4 mg/dL (0.1-20.0) H 03/19/22 14:40 Urine Sodium 18 mmol/L 03/19/22 14:40 Urine Opiates Screen Presumptive positive 03/10/22 18:20 Urine Methadone Screen Presumptive negative 03/10/22 18:20 Ur Barbiturates Screen Presumptive negative 03/10/22 18:20 Ur Phencyclidine Scrn Presumptive negative 03/10/22 18:20 Ur Amphetamines Screen Presumptive negative 03/10/22 18:20 U Benzodiazepines Scrn Presumptive negative 03/10/22 18:20 Urine Cocaine Screen Presumptive negative 03/10/22 18:20 U Marijuana (THC) Screen Presumptive negative 03/10/22 18:20 Drugs of Abuse Note Disclamer 03/10/22 18:20 Copper 118 mcg/dL (70-175) 03/12/22 18:40 Syphilis IgG/IgM Ab Nonreactive (NonReactive) 03/12/22 18:40 SARS-CoV-2 (PCR) Negative (Negative) 03/10/22 09:50 Blood Type O POSITIVE 03/15/22 09:42 Antibody Screen Negative 03/15/22 09:42 Crossmatch See Detail 03/15/22 09:42 Microbiology: Microbiology 03/18/22 15:12 Peripheral/Venous Blood Culture - Preliminary NO GROWTH AFTER 48 HOURS 03/18/22 15:12 Peripheral/Venous Blood Culture - Preliminary NO GROWTH AFTER 48 HOURS [place]/IV: Voiding Method Indwelling Catheter Active Medications - Current Medications Current Medications: Generic Name Dose Route Start Last Admin Trade Name Freq PRN Reason Stop Dose Admin Acetaminophen 650 mg 03/13/22 05:50 03/19/22 18:38 Acetaminophen 325 Mg/10.15 Ml Oral Liqd Unit Dose FEEDTUBE 650 mg Q6H PRN Administration Non Cardiac Pain or Temp>100.5 Bisacodyl 10 mg 03/15/22 10:00 Bisacodyl 5 Mg Tab PO QDAY PRN Constipation Enoxaparin Sodium 40 mg 03/12/22 10:00 03/21/22 10:28 Enoxaparin 40 Mg/0.4 Ml Inj SUB-Q 40 mg QDAY@1000 SHAHBAZ Administration Protocol Famotidine 20 mg 03/12/22 10:00 03/21/22 10:28 Famotidine 20 Mg Tab FEEDTUBE 20 mg BID SHAHBAZ Administration Fentanyl 50 mcg 03/10/22 10:58 03/14/22 20:48 Fentanyl 100 Mcg/2 Ml Inj IV 50 mcg Q10MIN PRN Administration ANALGESIA Hydrophilic Ointment 1 applic 03/10/22 11:03 Lip Therapy Vaseline TP Q2HR PRN Dry Lips Fentanyl Citrate 2,000 mcg in 100 mls @ 4.16 mls/hr 03/10/22 11:00 03/21/22 11:30 Fentanyl Drip Premix IV 4 mcg/kg/hr TITR SHAHBAZ 16.64 mls/hr Administration Protocol 1 MCG/KG/HR NORepinephrine/NS 8 MG-250 ML 8 mg in 250 mls @ 3.75 mls/hr 03/10/22 11:00 03/20/22 18:45 Norepinephrine/Ns 8 Mg-250 Ml (Double Conc) IV 4 mcg/min TITRATE SHAHBAZ 7.5 mls/hr Administration Protocol 2 MCG/MIN Meropenem/Sodium Chloride 1 gram in 100 mls @ 100 mls/hr 03/14/22 22:00 03/21/22 05:53 Merrem/Ns 1 Gram/100 Ml IV 03/21/22 14:59 100 mls/hr Q8H SHAHBAZ Administration Protocol Levofloxacin/Dextrose 750 mg in 150 mls @ 100 mls/hr 03/20/22 12:00 03/21/22 12:09 Levaquin 750mg/150ml IV 03/24/22 13:29 100 mls/hr Q24H SHAHBAZ Administration Protocol Levetiracetam 500 mg 03/12/22 10:00 03/21/22 10:28 Levetiracetam 500 Mg/5 Ml Oral Liqd FEEDTUBE 500 mg BID SHAHBAZ Administration Magnesium Hydroxide 30 ml 03/10/22 02:56 Magnesium Hydroxide (Mom) Oral Liqd Udc PO Q4H PRN Constipation Midodrine 10 mg 03/20/22 16:00 03/21/22 12:04 Midodrine 10 Mg Tab PO 10 mg TID@0800,1200,1600 [facility] Administration Multi-Ingred Cream/Lotion/Oil/Oint 1 applic 03/10/22 11:03 Mineral Oil/Petrolatum, White Ophth Oint 3.5 Gm OU Q4HR PRN Dry Eye(s) Ondansetron HCl 4 mg 03/10/22 02:56 Ondansetron 4 Mg/2 Ml Inj IV Q8H PRN Nausea And Vomiting Polyethylene Glycol 17 gm 03/12/22 10:00 03/21/22 10:19 Polyethylene Glycol 3350 17 Gm Powder FEEDTUBE Not Given QDAY SHAHBAZ Scopolamine 1 each 03/21/22 10:00 03/21/22 10:28 Scopolamine Transdermal Patch 72 Hr TD 1 each Q3D SHAHBAZ Administration Senna/Docusate Sodium 2 tab 03/14/22 10:00 03/21/22 10:19 Sennosides/Docusate Sodium 8.6/50 Mg Tab FEEDTUBE Not Given Q12H SHAHBAZ Sodium Chloride 10 ml 03/10/22 10:00 03/21/22 10:20 Sodium Chloride 0.9% 10 Ml Flush Syringe IV 10 ml BID SHAHBAZ Administration Sodium Chloride 10 ml 03/10/22 02:56 Sodium Chloride 0.9% 10 Ml Flush Syringe IV PRN PRN LINE FLUSH Sodium Polystyrene Sulfonate 30 gm 03/21/22 09:00 03/21/22 10:19 Sodium Polystyrene 15 Gm/60 Ml Oral Liqd PO 03/21/22 13:00 30 gm ONCE@0900 SHAHBAZ Administration Nutrition/Malnutrition Assess - Dietary Evaluation Nutrition/Malnutrition Findings: Nutrition Notes Start: 03/10/22 12:22 Freq: Status: Active Protocol: Document 03/14/22 12:08 JOSH (Rec: 03/14/22 12:31 JOSH [id number]) Nutrition Notes Initial or Follow up Brief Note Current Diagnosis Sepsis,Hypertension, Respiratory Failure, Malnutrition Other Pertinent Diagnosis MS, CAP, Seizure, Metabolic Encephalopathy, Hyponatremia, Hypokalemia, ... Current Diet TF-Vital AF 1.2 En @ 60 ml/hr (since D 03/10). Height 5 ft 6 in Weight 83.2 kg [place] Body Weight (kg) 59.09 BMI 29.6 Weight change and time frame No body weight change reported in 4 days. Weight Status Overweight Subjective/Other Information RD consult for routine F/U on TF tolerance/continuation. TF continues as prescribed, and well tolerated, according to RN notes. Pt remains on Mechanical Ventilation, O2 saturation @ 97%, according to Physical Assessment History notes. Pt presents an unspecified area of concern for skin risk with redness and flakiness, according to Physical Assessment History notes. Percent of energy/protein needs met: Prescribed TF-Vital AF 1.2 En @ 60 ml/hr provides for energy/protein needs (1,728 Kcal/108 g) during LOS, 100% Kcal; 100% AA. #1 Nutrition Diagnosis Inadequate oral intake Diagnosis Progress(for reassessment Continues documentation) Is patient on ventilator? Yes Is Patient Ambulatory and/or Out of Bed No REE-([facility]-confined to bed) 1713.168 Calculation Used for Recommendations [facility] Additional Notes Protein: 1-1.2 g/Kg ABW; 100- 166 g/day. Fluids: 1 ml/Kcal, or as per MD. Nutrition Intervention Nutrition Support: Continue TF-Vital AF 1.2 En @ 60 ml/hr. Flush: 100 ml water Q 4 hr, or as per MD. Kcal 1,728 Protein (gm) 108 Carbohydrates (gm) 159 Fat (gm) 78 Fluid (mL) 1,168 Fiber (gm) 7 % RDI: 100% Kcal; 100% AA. Goal #1 Provide at least 75% of energy /protein needs through Enteral Feeding during LOS. Follow-Up By: 03/21/22 Additional Comments Continue monitoring TF tolerance, Ventilation Status, Pressor support, and BM. <JESUS ARECHIGA - Last Filed: 03/22/22 07:20> Assessment and Plan Assessment and plan: I saw and evaluated the patient. I agree with the findings and the plan of care as documented in the Nurse Practitioner's~note, with the following corrections and additions. Hospitalist Physical - Constitutional Vitals: Temp Pulse Resp BP Pulse Ox 99.3 F 88 28 H 97/65 100 03/22/22 06:57 03/22/22 06:31 03/22/22 06:31 03/22/22 06:31 03/22/22 06:31 HEART Score - HEART Score Troponin: Troponin T 0.032 ng/mL (0.00-0.029) H D 03/10/22 12:24 Results - Labs CBC & Chem 7: 03/22/22 04:10 03/22/22 04:10 Labs: Laboratory Last Values WBC 32.9 K/mm3 (4.5-11.0) H 03/22/22 04:10 RBC 2.60 M/mm3 (3.65-5.03) L 03/22/22 04:10 Hgb 7.4 gm/dl (10.1-14.3) L 03/22/22 04:10 Hct 22.3 % (30.3-42.9) L 03/22/22 04:10 MCV 86 fl (79-97) 03/22/22 04:10 MCH 29 pg (28-32) 03/22/22 04:10 MCHC 33 % (30-34) 03/22/22 04:10 RDW 16.8 % (13.2-15.2) H 03/22/22 04:10 Plt Count 517 K/mm3 (140-440) H 03/22/22 04:10 Lymph % (Auto) 8.9 % (13.4-35.0) L 03/11/22 05:00 Lamb % (Auto) 4.2 % (0.0-7.3) 03/11/22 05:00 Eos % (Auto) 0.1 % (0.0-4.3) 03/11/22 05:00 Baso % (Auto) 0.2 % (0.0-1.8) 03/11/22 05:00 Lymph # (Auto) 1.2 K/mm3 (1.2-5.4) 03/11/22 05:00 Lamb # (Auto) 0.6 K/mm3 (0.0-0.8) 03/11/22 05:00 Eos # (Auto) 0.0 K/mm3 (0.0-0.4) 03/11/22 05:00 Baso # (Auto) 0.0 K/mm3 (0.0-0.1) 03/11/22 05:00 Add Manual Diff Complete 03/21/22 04:40 Total Counted 100 03/21/22 04:40 Seg Neutrophils % 86.6 % (40.0-70.0) H 03/11/22 05:00 Seg Neuts % (Manual) 71.0 % (40.0-70.0) H 03/21/22 04:40 Band Neutrophils % 12.0 % 03/21/22 04:40 Lymphocytes % (Manual) 2.0 % (13.4-35.0) L 03/21/22 04:40 Reactive Lymphs % (Man) 0 % 03/21/22 04:40 Monocytes % (Manual) 7.0 % (0.0-7.3) 03/21/22 04:40 Eosinophils % (Manual) 3.0 % (0.0-4.3) 03/21/22 04:40 Basophils % (Manual) 0 % (0.0-1.8) 03/21/22 04:40 Metamyelocytes % 3.0 % 03/21/22 04:40 Myelocytes % 0 % 03/21/22 04:40 Promyelocytes % 2.0 % 03/21/22 04:40 Blast Cells % 0 % 03/21/22 04:40 Nucleated RBC % 1.0 % (0.0-0.9) H 03/21/22 04:40 Seg Neutrophils # 11.8 K/mm3 (1.8-7.7) H 03/11/22 05:00 Seg Neutrophils # Man 18.2 K/mm3 (1.8-7.7) H 03/21/22 04:40 Band Neutrophils # 3.1 K/mm3 03/21/22 04:40 Lymphocytes # (Manual) 0.5 K/mm3 (1.2-5.4) L 03/21/22 04:40 Abs React Lymphs (Man) 0.0 K/mm3 03/21/22 04:40 Monocytes # (Manual) 1.8 K/mm3 (0.0-0.8) H 03/21/22 04:40 Eosinophils # (Manual) 0.8 K/mm3 (0.0-0.4) H 03/21/22 04:40 Basophils # (Manual) 0.0 K/mm3 (0.0-0.1) 03/21/22 04:40 Metamyelocytes # 0.8 K/mm3 03/21/22 04:40 Myelocytes # 0.0 K/mm3 03/21/22 04:40 Promyelocytes # 0.5 K/mm3 03/21/22 04:40 Blast Cells # 0.0 K/mm3 03/21/22 04:40 WBC Morphology Not Reportable 03/21/22 04:40 Hypersegmented Neuts Not Reportable 03/21/22 04:40 Hyposegmented Neuts Not Reportable 03/21/22 04:40 Hypogranular Neuts Not Reportable 03/21/22 04:40 Smudge Cells Not Reportable 03/21/22 04:40 Toxic Granulation Not Reportable 03/21/22 04:40 Toxic Vacuolation Not Reportable 03/21/22 04:40 Dohle Bodies Not Reportable 03/21/22 04:40 Pelger-Huet Anomaly Not Reportable 03/21/22 04:40 Luis Rods Not Reportable 03/21/22 04:40 Platelet Estimate Consistent w auto 03/21/22 04:40 Clumped Platelets Not Reportable 03/21/22 04:40 Plt Clumps, EDTA Not Reportable 03/21/22 04:40 Large Platelets Few 03/21/22 04:40 Giant Platelets Not Reportable 03/21/22 04:40 Platelet Satelliting Not Reportable 03/21/22 04:40 Plt Morphology Comment Not Reportable 03/21/22 04:40 RBC Morphology Not Reportable 03/21/22 04:40 Dimorphic RBCs Not Reportable 03/21/22 04:40 Polychromasia Not Reportable 03/21/22 04:40 Hypochromasia 3+ 03/21/22 04:40 Poikilocytosis Not Reportable 03/21/22 04:40 Anisocytosis 1+ 03/21/22 04:40 Microcytosis 1+ 03/21/22 04:40 Macrocytosis Not Reportable 03/21/22 04:40 Spherocytes Not Reportable 03/21/22 04:40 Pappenheimer Bodies Not Reportable 03/21/22 04:40 Sickle Cells Not Reportable 03/21/22 04:40 Target Cells Rare 03/21/22 04:40 Tear Drop Cells Few 03/21/22 04:40 Ovalocytes 1+ 03/21/22 04:40 Helmet Cells Not Reportable 03/21/22 04:40 [place] Bodies Not Reportable 03/21/22 04:40 [place] Rings Not Reportable 03/21/22 04:40 Rudy Cells Not Reportable 03/21/22 04:40 Bite Cells Not Reportable 03/21/22 04:40 Crenated Cell Not Reportable 03/21/22 04:40 Elliptocytes Few 03/21/22 04:40 Acanthocytes (Spur) Not Reportable 03/21/22 04:40 Rouleaux Not Reportable 03/21/22 04:40 Hemoglobin C Crystals Not Reportable 03/21/22 04:40 Schistocytes Few 03/21/22 04:40 Malaria parasites Not Reportable 03/21/22 04:40 Tani Bodies Not Reportable 03/21/22 04:40 Hem Pathologist Commnt No 03/21/22 04:40 PT 14.9 Sec. (12.2-14.9) 03/10/22 01:25 INR 1.03 (0.87-1.13) 03/10/22 01:25 D-Dimer 787.78 ng/mlDDU (0-234) H 03/10/22 05:45 ABG pH 7.284 pH Units (7.350-7.450) L 03/21/22 21:00 ABG pCO2 49.1 mm Hg 03/21/22 21:00 ABG pO2 68.6 mm Hg (80.0-90.0) L 03/21/22 21:00 ABG HCO3 22.8 mmol/L (20.0-26.0) 03/21/22 21:00 ABG O2 Saturation 92.8 % (95.0-99.0) L 03/21/22 21:00 ABG O2 Content 9.7 (0.0-44) 03/21/22 21:00 ABG Base Excess -3.7 mmol/L (-2.0-3.0) L 03/21/22 21:00 ABG Hemoglobin 7.6 gm/dl (12.0-16.0) L 03/21/22 21:00 ABG Carboxyhemoglobin 1.9 % (0.0-5.0) 03/21/22 21:00 ABG Methemoglobin 0.4 % (0.0-1.5) 03/21/22 21:00 Oxyhemoglobin 90.7 % (95.0-99.0) L 03/21/22 21:00 FiO2 80 % 03/21/22 21:00 Sodium 137 mmol/L (137-145) 03/22/22 04:10 Potassium 5.4 mmol/L (3.6-5.0) H 03/22/22 04:10 Chloride 97.2 mmol/L (98-107) L 03/22/22 04:10 Carbon Dioxide 21 mmol/L (22-30) L 03/22/22 04:10 Anion Gap 24 mmol/L 03/22/22 04:10 BUN 116 mg/dL (7-17) H 03/22/22 04:10 Creatinine 1.6 mg/dL (0.6-1.2) H 03/22/22 04:10 Estimated GFR 33 ml/min 03/22/22 04:10 BUN/Creatinine Ratio 73 % 03/22/22 04:10 Glucose 142 mg/dL (65-100) H 03/22/22 04:10 POC Glucose 95 mg/dL (70-105) 03/21/22 11:58 Osmolality 285 Mosm/kg 03/10/22 12:24 Lactic Acid 0.90 mmol/L (0.7-2.0) 03/18/22 05:20 Uric Acid 1.6 mg/dL (3.5-7.6) L 03/10/22 13:15 Calcium 8.5 mg/dL (8.4-10.2) 03/22/22 04:10 Phosphorus 3.70 mg/dL (2.5-4.5) 03/18/22 05:20 Magnesium 2.00 mg/dL (1.7-2.3) 03/18/22 05:20 Ferritin 219.2 ng/mL (10.0-200.0) H 03/10/22 05:45 Total Bilirubin 0.30 mg/dL (0.1-1.2) 03/18/22 05:20 AST 39 units/L (5-40) 03/18/22 05:20 ALT 14 units/L (7-56) 03/18/22 05:20 Alkaline Phosphatase 119 units/L (35-129) 03/18/22 05:20 Lactate Dehydrogenase 210 units/L (91-180) H 03/10/22 05:45 Total Creatine Kinase 901 units/L (30-135) H 03/10/22 12:24 CK-MB (CK-2) 15.3 ng/mL (0.0-4.0) H 03/10/22 12:24 CK-MB (CK-2) Rel Index 1.6 (0-4) 03/10/22 12:24 Troponin T 0.032 ng/mL (0.00-0.029) H D 03/10/22 12:24 C-Reactive Protein < 0.03 mg/dL (0.00-1.30) 03/10/22 05:45 NT-Pro-B Natriuret Pep 82895 pg/mL (0-900) H 03/10/22 01:25 Total Protein 5.4 g/dL (6.3-8.2) L 03/18/22 05:20 Albumin 2.0 g/dL (3.9-5) L 03/18/22 05:20 Albumin/Globulin Ratio 0.6 % 03/18/22 05:20 Prealbumin 0.044 g/L (0.200-0.400) L 03/12/22 18:40 Triglycerides 47 mg/dL (2-149) 03/10/22 01:25 Cholesterol 259 mg/dL (50-199) H 03/10/22 01:25 LDL Cholesterol Direct 187 mg/dL (50-130) H 03/10/22 01:25 HDL Cholesterol 63 mg/dL (40-59) H 03/10/22 01:25 Cholesterol/HDL Ratio 4.11 % 03/10/22 01:25 Lipase 15 units/L (13-60) 03/10/22 01:25 Vitamin B1 28 nmol/L (8-30) 03/13/22 08:00 Vitamin B12 1021 pg/mL (211-911) H 03/12/22 18:40 Folate 2.15 ng/mL (7.3-26.0) L 03/12/22 18:40 Procalcitonin 3.92 ng/mL (<0.15) 03/10/22 05:45 TSH 1.290 mlU/mL (0.270-4.200) 03/12/22 18:40 Urine Color Yellow (Yellow) 03/10/22 18:20 Urine Turbidity Clear (Clear) 03/10/22 18:20 Urine pH 6.0 (5.0-7.0) 03/10/22 18:20 Ur Specific [place] 1.010 (1.003-1.030) 03/10/22 18:20 Urine Protein <15 mg/dl mg/dL (Negative) 03/10/22 18:20 Urine Glucose (UA) Neg mg/dL (Negative) 03/10/22 18:20 Urine Ketones Tr mg/dL (Negative) 03/10/22 18:20 Urine Blood Sm (Negative) 03/10/22 18:20 Urine Nitrite Neg (Negative) 03/10/22 18:20 Urine Bilirubin Neg (Negative) 03/10/22 18:20 Urine Urobilinogen < 2.0 mg/dL (<2.0) 03/10/22 18:20 Ur Leukocyte Esterase Lg (Negative) 03/10/22 18:20 Urine WBC (Auto) 105.0 /HPF (0.0-6.0) H 03/10/22 18:20 Urine RBC (Auto) 2.0 /HPF (0.0-6.0) 03/10/22 18:20 U Epithel Cells (Auto) < 1.0 /HPF (0-13.0) 03/10/22 18:20 Urine Bacteria (Auto) 1+ /HPF (Negative) 03/10/22 18:20 Urine Osmolality 368 Mosm/kg 03/10/22 18:20 Urine Creatinine 34.4 mg/dL (0.1-20.0) H 03/19/22 14:40 Urine Sodium 18 mmol/L 03/19/22 14:40 Urine Opiates Screen Presumptive positive 03/10/22 18:20 Urine Methadone Screen Presumptive negative 03/10/22 18:20 Ur Barbiturates Screen Presumptive negative 03/10/22 18:20 Ur Phencyclidine Scrn Presumptive negative 03/10/22 18:20 Ur Amphetamines Screen Presumptive negative 03/10/22 18:20 U Benzodiazepines Scrn Presumptive negative 03/10/22 18:20 Urine Cocaine Screen Presumptive negative 03/10/22 18:20 U Marijuana (THC) Screen Presumptive negative 03/10/22 18:20 Drugs of Abuse Note Disclamer 03/10/22 18:20 Copper 118 mcg/dL (70-175) 03/12/22 18:40 Syphilis IgG/IgM Ab Nonreactive (NonReactive) 03/12/22 18:40 SARS-CoV-2 (PCR) Negative (Negative) 03/10/22 09:50 Blood Type O POSITIVE 03/15/22 09:42 Antibody Screen Negative 03/15/22 09:42 Crossmatch See Detail 03/15/22 09:42 Microbiology: Microbiology 03/18/22 Unknown Urine,Catheterized - Indwelling Catheter Urine Culture - Final NO GROWTH AFTER 48 HOURS 03/18/22 15:12 Peripheral/Venous Blood Culture - Preliminary NO GROWTH AFTER 72 HOURS 03/18/22 15:12 Peripheral/Venous Blood Culture - Preliminary NO GROWTH AFTER 72 HOURS [place]/IV: Voiding Method Indwelling Catheter Active Medications - Current Medications Current Medications: Generic Name Dose Route Start Last Admin Trade Name Freq PRN Reason Stop Dose Admin Acetaminophen 650 mg 03/13/22 05:50 03/19/22 18:38 Acetaminophen 325 Mg/10.15 Ml Oral Liqd Unit Dose FEEDTUBE 650 mg Q6H PRN Administration Non Cardiac Pain or Temp>100.5 Bisacodyl 10 mg 03/15/22 10:00 Bisacodyl 5 Mg Tab PO QDAY PRN Constipation Enoxaparin Sodium 40 mg 03/12/22 10:00 03/21/22 10:28 Enoxaparin 40 Mg/0.4 Ml Inj SUB-Q 40 mg QDAY@1000 SHAHBAZ Administration Protocol Famotidine 20 mg 03/12/22 10:00 03/21/22 21:21 Famotidine 20 Mg Tab FEEDTUBE 20 mg BID SHAHBAZ Administration Fentanyl 50 mcg 03/10/22 10:58 03/14/22 20:48 Fentanyl 100 Mcg/2 Ml Inj IV 50 mcg Q10MIN PRN Administration ANALGESIA Hydrophilic Ointment 1 applic 03/10/22 11:03 Lip Therapy Vaseline TP Q2HR PRN Dry Lips Fentanyl Citrate 2,000 mcg in 100 mls @ 4.16 mls/hr 03/10/22 11:00 03/22/22 04:02 Fentanyl Drip Premix IV 4 mcg/kg/hr TITR SHAHBAZ 16.64 mls/hr Administration Protocol 1 MCG/KG/HR NORepinephrine/NS 8 MG-250 ML 8 mg in 250 mls @ 3.75 mls/hr 03/10/22 11:00 03/21/22 21:35 Norepinephrine/Ns 8 Mg-250 Ml (Double Conc) IV 10 mcg/min TITRATE SHAHBAZ 18.75 mls/hr Administration Protocol 2 MCG/MIN Levofloxacin/Dextrose 750 mg in 150 mls @ 100 mls/hr 03/20/22 12:00 03/21/22 13:40 Levaquin 750mg/150ml IV 03/24/22 13:29 Infused Q24H SHAHBAZ Infusion Protocol Vasopressin 20 unit/ Sodium 101 mls @ 9.09 mls/hr 03/21/22 15:00 03/22/22 00:03 Chloride IV 0.03 units/min TITR SHAHBAZ 9.09 mls/hr Administration Protocol 0.03 UNITS/MIN Levetiracetam 500 mg 03/12/22 10:00 03/21/22 21:22 Levetiracetam 500 Mg/5 Ml Oral Liqd FEEDTUBE 500 mg BID SHAHBAZ Administration Magnesium Hydroxide 30 ml 03/10/22 02:56 Magnesium Hydroxide (Mom) Oral Liqd Udc PO Q4H PRN Constipation Midodrine 15 mg 03/21/22 16:00 03/21/22 16:47 Midodrine 5 Mg Tab PO 15 mg TID@0800,1200,1600 SHAHBAZ Administration Multi-Ingred Cream/Lotion/Oil/Oint 1 applic 03/10/22 11:03 Mineral Oil/Petrolatum, White Ophth Oint 3.5 Gm OU Q4HR PRN Dry Eye(s) Ondansetron HCl 4 mg 03/10/22 02:56 Ondansetron 4 Mg/2 Ml Inj IV Q8H PRN Nausea And Vomiting Polyethylene Glycol 17 gm 03/12/22 10:00 03/21/22 10:19 Polyethylene Glycol 3350 17 Gm Powder FEEDTUBE Not Given QDAY SHAHBAZ Scopolamine 1 each 03/21/22 10:00 03/21/22 10:28 Scopolamine Transdermal Patch 72 Hr TD 1 each Q3D SHAHBAZ Administration Senna/Docusate Sodium 2 tab 03/14/22 10:00 03/21/22 21:23 Sennosides/Docusate Sodium 8.6/50 Mg Tab FEEDTUBE Not Given Q12H SHAHBAZ Sodium Chloride 10 ml 03/10/22 10:00 03/21/22 21:22 Sodium Chloride 0.9% 10 Ml Flush Syringe IV 10 ml BID SHAHBAZ Administration Sodium Chloride 10 ml 03/10/22 02:56 Sodium Chloride 0.9% 10 Ml Flush Syringe IV PRN PRN LINE FLUSH Nutrition/Malnutrition Assess - Dietary Evaluation Nutrition/Malnutrition Findings: Nutrition Notes Start: 03/10/22 12:22 Freq: Status: Active Protocol: Document 03/21/22 15:08 JOSH (Rec: 03/21/22 15:18 JOSH [id number]) Nutrition Notes Initial or Follow up Reassessment Current Diagnosis Hypertension,Respiratory Failure,Malnutrition Other Pertinent Diagnosis MS, CAP, Seizure, Metabolic Encephalopathy, Septic Shock, NSTEMI, UTI ... Current Diet TF-Vital AF 1.2 En @ 60 ml/hr (since D 03/10). Labs/Tests 03/21: Na 135, K 5.7, Cl 97.4, CO2 21, BUN 104, Crea 1.3, Glu 118. Pertinent Medications 03/21: Vasopressin 20U, others nutritionally unremarkable. Height 5 ft 6 in Weight 83.2 kg [place] Body Weight (kg) 59.09 BMI 29.6 Weight change and time frame No body weight change reported in 11 days. Weight Status Overweight Subjective/Other Information RD consult for routine F/U on TF tolerance/continuation. TF continues as prescribed, and well tolerated, according to RN notes. Pt remains on Mechanical Ventilation, O2 saturation @ 96%, according to Physical Assessment History notes. Pt presents bilateral-LE pitting edema 3+, according to Physical Assessment History notes. Pt presents an unspecified area of concern for skin risk at the time, according to Physical Assessment History notes. Percent of energy/protein needs met: Prescribed TF-Vital AF 1.2 En @ 60 ml/hr provides for energy/protein needs (1,728 Kcal/108 g) during LOS, 100% Kcal; 100% AA. Burn Absent Trauma Absent GI Symptoms None Food Allergy No Skin Integrity/Comment Unspecified area of concern. Current % PO Other Minimum of two criteria No Fluid Accumulation Moderate to Severe (severe) Reduced Pole Cutter Strength N/A (non-severe) Protein-Calorie Malnutrition N\A #1 Nutrition Diagnosis Inadequate oral intake Diagnosis Progress(for reassessment Continues documentation) Is patient on ventilator? Yes Is Patient Ambulatory and/or Out of Bed No REE-([facility]-confined to bed) 1713.168 Calculation Used for Recommendations [facility] Additional Notes Protein: 1-1.2 g/Kg ABW; 100- 166 g/day. Fluids: 1 ml/Kcal, or as per MD. Nutrition Intervention Nutrition Support: Continue TF-Vital AF 1.2 En @ 60 ml/hr. Flush: 100 ml water Q 4 hr, or as per MD. Kcal 1,728 Protein (gm) 108 Carbohydrates (gm) 159 Fat (gm) 78 Fluid (mL) 1,168 Fiber (gm) 7 % RDI: 100% Kcal; 100% AA. Goal #1 Provide at least 75% of energy /protein needs through Enteral Feeding during LOS. Follow-Up By: 03/28/22 Additional Comments Continue monitoring TF tolerance, Ventilation Status, Pressor support, and BM.
--- NOTE | 2022-03-21 13:33 | Progress Note ---
Assessment and Plan - Patient Problems (1) Respiratory failure Current Visit: Yes Status: Acute Plan to address problem: Patient has a history of multiple sclerosis, no reported cardiac history, presented to the hospital with respiratory insufficiency and currently on the vent in the ICU. Chest x-ray showed confluent consolidations in both lung fraire consistent with a severe bilateral pneumonia. A COVID-19 test was positive. Cardiac consultation was requested for the finding of a nonspecific, isolated rise in troponin levels. EKG show sinus rhythm with no acute ischemic changes. Echocardiogram done on this presentation shows left ventricular systolic ejection fraction at the lower limits of normal 50%. No acute cardiovascular issues at this time, will continue supportive management of cardiac status, defer treatment of respiratory failure and bilateral pneumonia to internal medicine and pulmonary. Subjective Date of service: 03/21/22 Principal diagnosis: AHRF; Multifocal Pneumonia; Septic shock; NSTEMI; AMS; Seizures Interval history: Patient is on the vent, sedated, no new cardiac events reported. Objective Vital Signs Temp Pulse Pulse Resp BP Pulse Ox 03/21/22 12:00 93 H 94/56 96 03/21/22 08:02 90 24 96 03/21/22 08:00 94 H 24 102/59 93 03/21/22 07:52 88 03/21/22 07:48 92 H 90/59 97 03/21/22 07:45 90 25 H 98/65 03/21/22 07:43 99.3 F 03/21/22 07:31 93 H 25 H 91/59 03/21/22 07:15 92 H 25 H 90/59 03/21/22 07:01 92 H 24 89/56 03/21/22 06:45 88 22 92/52 88 03/21/22 06:30 91 H 21 95/56 03/21/22 06:15 87 16 103/55 83 L 03/21/22 06:00 94 H 31 H 97/68 03/21/22 05:45 93 H 26 H 112/41 94 03/21/22 05:31 97 03/21/22 05:15 94 H 26 H 99/66 03/21/22 05:01 93 H 25 H 90/60 86 03/21/22 04:45 93 H 25 H 97/59 03/21/22 04:31 107 H 23 104/50 95 03/21/22 04:16 95 H 23 96/57 90 03/21/22 04:00 98.7 F 92 H 90 24 90/55 96 03/21/22 03:46 94 H 24 90/60 93 03/21/22 03:32 94 H 96/67 96 03/21/22 03:30 95 H 24 96/67 03/21/22 03:16 93 H 24 95/57 85 03/21/22 03:04 93 H 25 H 91/59 93 03/21/22 03:00 94 H 25 H 91/59 03/21/22 02:46 97 H 24 89/59 98 03/21/22 02:30 99 H 24 94/65 03/21/22 02:16 96 H 25 H 96/63 03/21/22 02:00 99 H 25 H 105/64 03/21/22 01:45 97 H 25 H 105/64 03/21/22 01:30 101 H 23 96/63 03/21/22 01:16 104 H 24 95/53 89 03/21/22 01:00 97 H 22 100/53 98 03/21/22 00:46 100 H 23 90/65 97 03/21/22 00:30 98 H 32 H 91/50 94 03/21/22 00:15 99 H 22 95/59 96 03/21/22 00:10 99.4 F 03/21/22 00:00 98 H 105 H 19 85/52 95 03/20/22 23:45 104 H 22 92/63 95 03/20/22 23:33 104 H 96/63 94 03/20/22 23:30 106 H 23 96/63 97 03/20/22 23:15 105 H 22 87/58 96 03/20/22 23:00 103 H 23 88/61 96 03/20/22 22:45 103 H 23 95/63 96 03/20/22 22:30 105 H 22 95/65 97 03/20/22 22:15 103 H 21 94/67 96 03/20/22 22:00 103 H 24 97/64 93 03/20/22 21:45 96 H 24 89/59 93 03/20/22 21:30 96 H 23 91/62 95 03/20/22 21:15 105 H 23 92/65 95 03/20/22 21:00 104 H 22 94/60 03/20/22 20:45 104 H 23 86/62 03/20/22 20:30 105 H 23 86/65 96 03/20/22 20:15 101 H 23 83/59 94 03/20/22 20:00 99.2 F 95 H 97 H 23 82/58 94 03/20/22 19:45 101 H 18 82/61 93 03/20/22 19:33 102 H 81/60 94 03/20/22 19:30 101 H 23 81/60 94 03/20/22 19:15 95 H 24 87/59 95 03/20/22 19:00 102 H 24 84/63 94 03/20/22 18:45 102 H 24 87/61 93 03/20/22 18:30 101 H 25 H 90/62 94 03/20/22 18:15 100 H 24 93/61 92 03/20/22 18:00 101 H 24 94/66 91 03/20/22 17:45 102 H 24 95/63 03/20/22 17:30 100 H 24 110/67 90 03/20/22 17:15 103 H 23 97/68 03/20/22 17:00 96 H 21 98/62 87 03/20/22 16:45 101 H 20 105/64 97 03/20/22 16:30 101 H 23 97/63 03/20/22 16:15 100 H 21 94/64 03/20/22 16:03 97.9 F 03/20/22 16:00 102 H 101 H 23 95/58 97 03/20/22 15:45 102 H 23 94/59 03/20/22 15:30 100 H 25 H 89/60 90 03/20/22 15:15 97 H 26 H 95/58 03/20/22 15:00 99 H 27 H 91/59 84 03/20/22 14:45 99 H 27 H 99/60 85 03/20/22 14:30 95 H 23 98/60 03/20/22 14:16 89 24 88/53 98 03/20/22 14:00 98 H 24 83/62 03/20/22 13:45 98 H 24 92/61 94 - Physical Examination General: Other (intubated on mechanical ventilator) HEENT: Positive: PERRL Neck: Positive: neck supple, trachea midline. Negative: JVD/HJR Cardiac: Positive: Reg Rate and Rhythm Lungs: Positive: Decreased Breath Sounds Neuro: Positive: Other (Intubated, sedated on the vent) Abdomen: Positive: Soft Skin: Positive: Clear, Other (multiple wounds) Extremities: Absent: edema - Labs and Meds CBC 03/21/22 Range/Units 04:40 WBC 25.6 H (4.5-11.0) K/mm3 RBC 2.61 L (3.65-5.03) M/mm3 Hgb 7.3 L (10.1-14.3) gm/dl Hct 22.8 L (30.3-42.9) % Plt Count 462 H (140-440) K/mm3 Comprehensive Metabolic Panel 03/21/22 Range/Units 04:00 Sodium 135 L (137-145) mmol/L Potassium 5.7 H D (3.6-5.0) mmol/L Chloride 97.4 L (98-107) mmol/L Carbon Dioxide 21 L (22-30) mmol/L BUN 104 H (7-17) mg/dL Creatinine 1.3 H (0.6-1.2) mg/dL Glucose 118 H (65-100) mg/dL Calcium 8.5 (8.4-10.2) mg/dL - Allied health notes Allied health notes reviewed: RT
--- NOTE | 2022-03-21 13:34 | Progress Note ---
Assessment and Plan Cultures: 03/10/2022 blood culture: No growth 03/10/2022 sputum culture: Usual respiratory shital 03/14/2022 urine culture: No growth 03/18/2022 blood culture: No growth 03/18/2022 tracheal aspirate culture: no growth so far COVID-19 PCR: Negative A/P: 61-year-old female past medical history of multiple sclerosis, seizures now with: #Septic shock, likely secondary to bilateral pneumonia #Acute hypoxic respiratory failure: On vent #Bilateral pneumonia: Cultures without any particular pathogen isolated. #Multiple sclerosis #Possible UTI: UA did show pyuria on admission, culture without any significant growth Recs: -Continue IV meropenem, complete 7 days -continue levofloxacin 750 mg daily for 5 days, D2 -guarded prognosis, agree with plans for goals of care discussion Gabrielle Vásquez MD, FACP, [facility] O: [phone] F: [phone] C: [phone] Subjective Date of service: 03/21/22 Principal diagnosis: AHRF; Multifocal Pneumonia; Septic shock; NSTEMI; AMS; Seizures Interval history: Afebrile. Remains intubated, on the vent. Remains on pressors. Objective - Exam Narrative Exam: Physical Exam: Constitutional: sedated, intubated, on the vent Head, Ears, Nose: Normocephalic, atraumatic. External ears, nose normal Eyes: Conjunctivae/corneas clear. No icterus. No ptosis. Neck: intubated Oral: intubated Cardiovascular: S1, S2 + Respiratory: AE fair bilaterally and equal GI: Soft, bowel sounds + Musculoskeletal: No pedal edema, no cyanosis. Skin: No rash or abscess Hem/Lymphatic: No palpable cervical or supraclavicular nodes. No lymphangitis Psych: no agitation Neurological: sedated, intubated, on the vent, exam limited - Constitutional Vitals: Vital Signs Temp Pulse Resp BP Pulse Ox 99.3 F 93 H 24 94/56 96 03/21/22 07:43 03/21/22 12:00 03/21/22 08:02 03/21/22 12:00 03/21/22 12:00 Temperature -Last 24 Hours Temperature 99.3 F Temperature 98.7 F Temperature 99.4 F Temperature 99.2 F Temperature 97.9 F - Labs CBC & Chem 7: 03/21/22 04:40 03/21/22 04:00 Labs: Abnormal lab results 03/21/22 03/21/22 Range/Units 04:00 04:40 WBC 25.6 H (4.5-11.0) K/mm3 RBC 2.61 L (3.65-5.03) M/mm3 Hgb 7.3 L (10.1-14.3) gm/dl Hct 22.8 L (30.3-42.9) % RDW 16.8 H (13.2-15.2) % Plt Count 462 H (140-440) K/mm3 Seg Neuts % (Manual) 71.0 H (40.0-70.0) % Lymphocytes % (Manual) 2.0 L (13.4-35.0) % Nucleated RBC % 1.0 H (0.0-0.9) % Seg Neutrophils # Man 18.2 H (1.8-7.7) K/mm3 Lymphocytes # (Manual) 0.5 L (1.2-5.4) K/mm3 Monocytes # (Manual) 1.8 H (0.0-0.8) K/mm3 Eosinophils # (Manual) 0.8 H (0.0-0.4) K/mm3 Sodium 135 L (137-145) mmol/L Potassium 5.7 H D (3.6-5.0) mmol/L Chloride 97.4 L (98-107) mmol/L Carbon Dioxide 21 L (22-30) mmol/L BUN 104 H (7-17) mg/dL Creatinine 1.3 H (0.6-1.2) mg/dL Glucose 118 H (65-100) mg/dL
--- NOTE | 2022-03-21 14:54 | XRay Report ---
CHEST - 1 VIEW INDICATION: Hypoxia COMPARISON: Yesterday FINDINGS: SUPPORT DEVICES: Stable support device positioning. Dobbhoff tube projects below the [id number]. HEART: Stable cardiomediastinal silhouette. LUNGS/PLEURA: Persistent moderate diffuse interstitial disease. No appreciable effusion. ADDITIONAL FINDINGS: None. IMPRESSION: Essentially unchanged exam. Signer Name: Bo Balderas MD Signed: 03/21/2022 2:49 PM Workstation Name: [id number]
[2022-03-21] MEDS: VASOPRESSIN 20 UNIT in SODIUM CHLORIDE 0.9% 100 ML IV SCH (15:16)
[2022-03-21 16:25] LABS: ABG Base Excess -5.7 mmol/L (-2.0-3.0); ABG HCO3 23.8 mmol/L (20.0-26.0); ABG PCO2 64.3 mm Hg; ABG PO2 76.6 mm Hg (80.0-90.0)
[2022-03-21] MEDS: MIDODRINE 5 MG TAB PO SCH (16:47)
--- NOTE | 2022-03-21 16:53 | Progress Note ---
Assessment and Plan This is a 61-year-old female with known past medical history of Multiple Sclerosis and seizure disorder admitted for sepsis, Hyponatremia, and acute hypoxic respiratory failure requiring ventilatory support Acute Hypoxemic Respiratory Failure, on MVS ARDS Septic shock -2 pressor with MODS Multifocal Pneumonia/CAP- possible aspiration TANIYA C.diff PCR positive Leukemoid reaction with thromocytosis NSTEMI/Elevated Troponin- probable type 2 ischemia Elevated BNP Acute Metabolic Encephalopathy H/o Seizure Disorder Elevated D-Dimer Moderate Protein Calorie Malnutrition Patient did not respond to IV lasix yesterday, only 415ml UOP in the last 24hrs. Renal function worsen this am with hyperkalemia, X1 dose of kayexalate ordered. Worsening leukocytosis -continue to titrate supplemental oxygen to keep SpO2 90-92% -VAP bundle addressed, aspiration precautions HOB >40 -continue lung protective strategies; ARDS net protocol -Bicarbonate for pH <7.2 per ARDS net protocol -continue bronchodilators with pulmonary hygiene per RT -Continue Antibiotics per ID- on Vancomyin (po ), Metronidazole IV -Continue to trend temperature curve and WCC -CXR, ABG as clinically indicated - continue accuchecks with glycemic control per SSI (While critically ill target blood glucose of 140-180 mg/dL; avoid hypoglycemia) - avoid nephrotoxins, renally dose all medications - continue to avoid benzodiazepines, reduce the possibility of delirium - Maintenance of sleep-wake cycle, avoid delirium -Continue with enteric nutritional support - VTE prophylaxis- anticoagulation with therapeutic low intensity heparin -Stress ulcer prophylaxis- Famotidine - mobility, off loading and frequent turning per facility protocol to prevent pressure ulcers - Monitor hemodynamics closely - continue other care per attending / other consultants CONDITION: CRITICAL PROGNOSIS: GRAVE CODE STATUS: FULL The high probability of a clinically significant, sudden or life threatening deterioration of the [respiratory, cardiovascular, neurology,renal ] system(s) required my full and direct attention, intervention and personal management. The aggregate critical care time was [35 ] minutes. This time is in addition to time spent performing reported procedures but includes the following: [x] Data Review and interpretation [x] Patient assessment and monitoring of vital signs [x] Documentation [x] Medication orders and management Subjective Date of service: 03/21/22 Principal diagnosis: AHRF; Multifocal Pneumonia; Septic shock; NSTEMI; AMS; Se izures Interval history: follow up fro: Acute hypoxemic resp failure on MVS; Acute encephalopathy; Septic shock; Bilateral pneumonia-aspiration/CAP Severe hyponatremia Seen and examined. Vitals, labs, medications, chart reviewed. Discussed with nursing and respiratory care staff. No fevers, remains on Norepinephrine, on Vasopressin and bicarbonate infusion Vent: ACVC-20/400/+14/100% On going episodes of desaturations overnight, remains on Fentanyl-low dose, minimally responsive Objective Vital Signs - 12hr 03/21/22 03/21/22 03/21/22 05:01 05:15 05:31 Temperature Pulse Rate 93 H 94 H Pulse Rate [ From Monitor] Respiratory 25 H 26 H Rate Blood Pressure 90/60 99/66 O2 Sat by Pulse 86 97 Oximetry 03/21/22 03/21/22 03/21/22 05:45 06:00 06:15 Temperature Pulse Rate 93 H 94 H 87 Pulse Rate [ From Monitor] Respiratory 26 H 31 H 16 Rate Blood Pressure 112/41 97/68 103/55 O2 Sat by Pulse 94 83 L Oximetry 03/21/22 03/21/22 03/21/22 06:30 06:45 07:01 Temperature Pulse Rate 91 H 88 92 H Pulse Rate [ From Monitor] Respiratory 24 Rate Blood Pressure 95/56 92/52 89/56 O2 Sat by Pulse 88 Oximetry 03/21/22 03/21/22 03/21/22 07:15 07:31 07:43 Temperature 99.3 F Pulse Rate 92 H 93 H Pulse Rate [ From Monitor] Respiratory 25 H 25 H Rate Blood Pressure 90/59 91/59 O2 Sat by Pulse Oximetry 03/21/22 03/21/22 03/21/22 07:45 07:48 07:52 Temperature Pulse Rate 90 92 H 88 Pulse Rate [ From Monitor] Respiratory 25 H Rate Blood Pressure 98/65 90/59 O2 Sat by Pulse 97 Oximetry 03/21/22 03/21/22 03/21/22 08:00 08:02 08:15 Temperature Pulse Rate 94 H 90 Pulse Rate [ 90 From Monitor] Respiratory 22 Rate Blood Pressure 102/59 102/63 O2 Sat by Pulse 93 96 Oximetry 03/21/22 03/21/22 03/21/22 08:31 08:45 09:00 Temperature Pulse Rate 95 H 93 H 90 Pulse Rate [ From Monitor] Respiratory 22 Rate Blood Pressure 102/54 101/63 102/63 O2 Sat by Pulse 94 Oximetry 03/21/22 03/21/22 03/21/22 09:15 09:30 09:45 Temperature Pulse Rate 90 88 87 Pulse Rate [ From Monitor] Respiratory 22 17 16 Rate Blood Pressure 102/57 96/59 95/62 O2 Sat by Pulse 97 Oximetry 03/21/22 03/21/22 03/21/22 10:01 10:15 10:31 Temperature Pulse Rate 85 86 85 Pulse Rate [ From Monitor] Respiratory 17 18 18 Rate Blood Pressure 99/61 96/60 98/59 O2 Sat by Pulse Oximetry 03/21/22 03/21/22 03/21/22 10:45 11:00 11:15 Temperature 98.5 F Pulse Rate 88 91 H 87 Pulse Rate [ From Monitor] Respiratory 15 23 21 Rate Blood Pressure 105/62 103/62 96/63 O2 Sat by Pulse 100 Oximetry 03/21/22 03/21/22 03/21/22 11:30 11:45 12:00 Temperature Pulse Rate 94 H 85 88 Pulse Rate [ From Monitor] Respiratory 19 21 23 Rate Blood Pressure 97/63 95/57 95/57 O2 Sat by Pulse 93 96 Oximetry 03/21/22 03/21/22 03/21/22 12:15 12:31 12:45 Temperature Pulse Rate 87 99 H 94 H Pulse Rate [ From Monitor] Respiratory 21 23 23 Rate Blood Pressure 99/53 99/62 95/61 O2 Sat by Pulse 96 Oximetry 03/21/22 03/21/22 03/21/22 13:00 13:15 13:30 Temperature Pulse Rate 86 90 89 Pulse Rate [ From Monitor] Respiratory 18 22 26 H Rate Blood Pressure 89/51 98/56 103/51 O2 Sat by Pulse 93 Oximetry 03/21/22 03/21/22 03/21/22 13:45 14:00 14:15 Temperature Pulse Rate 83 91 H Pulse Rate [ From Monitor] Respiratory 26 H 24 Rate Blood Pressure 85/47 86/53 O2 Sat by Pulse 82 L Oximetry 03/21/22 03/21/22 03/21/22 14:31 14:45 15:00 Temperature Pulse Rate 97 H 113 H 98 H Pulse Rate [ From Monitor] Respiratory 23 15 15 Rate Blood Pressure 95/58 107/64 95/61 O2 Sat by Pulse 92 100 98 Oximetry 03/21/22 03/21/2222 15:15 15:30 15:45 Temperature Pulse Rate 98 H 109 H 114 H Pulse Rate [ From Monitor] Respiratory 15 15 14 Rate Blood Pressure 96/52 90/62 100/68 O2 Sat by Pulse 98 96 97 Oximetry 03/21/22 03/21/22 03/21/22 16:00 16:01 16:15 Temperature Pulse Rate 97 H 111 H 96 H Pulse Rate [ From Monitor] Respiratory 14 14 Rate Blood Pressure 100/71 100/69 O2 Sat by Pulse Oximetry 03/21/22 16:27 Temperature 98.4 F Pulse Rate Pulse Rate [ From Monitor] Respiratory Rate Blood Pressure O2 Sat by Pulse Oximetry Constitutional: no acute distress, other (middle aged female with anasarca and mild dyssynchrony on MVS) Eyes: non-icteric ENT: oropharynx moist, other (ETT 24 cm BLANCA) Neck: supple, no lymphadenopathy, no JVD Effort: mildly labored Ascultation: Bilateral: rales Percussion: Bilateral: not dull Cardiovascular: regular rate and rhythm, other (S1,S2) Gastrointestinal: normoactive bowel sounds, soft, non-tender, non-distended Integumentary: normal Extremities: no cyanosis, pulses normal, no ischemia or petechiae, edema (2+ and anasarca ) Neurologic: pupils equal and round, unable to assess, other (weak) Psychiatric: other (unable to assess re: AMS) CBC and BMP: 03/28/22 04:17 03/28/22 04:17 ABG, PT/INR, D-dimer: ABG ABG pCO2 64.3 mm Hg 03/21/22 15:30 ABG pO2 76.6 mm Hg (80.0-90.0) L 03/21/22 15:30 PT/INR, D-dimer PT 14.9 Sec. (12.2-14.9) 03/10/22 01:25 INR 1.03 (0.87-1.13) 03/10/22 01:25 D-Dimer 787.78 ng/mlDDU (0-234) H 03/10/22 05:45 Abnormal lab findings: Abnormal Labs 03/10/22 03/10/22 03/10/22 01:19 01:25 01:25 WBC RBC Hgb Hct MCH RDW 15.4 H Plt Count Lymph % (Auto) 12.4 L Lymph # (Auto) 1.1 L Seg Neutrophils % 85.9 H Seg Neuts % (Manual) Lymphocytes % (Manual) Nucleated RBC % Seg Neutrophils # Seg Neutrophils # Man Lymphocytes # (Manual) Monocytes # (Manual) Eosinophils # (Manual) D-Dimer ABG pH ABG pO2 59.3 L ABG HCO3 16.7 L ABG O2 Saturation 92.3 L ABG Base Excess -7.8 L ABG Hemoglobin 11.4 L Oxyhemoglobin 90.8 L Sodium 119 L* Potassium 3.1 L Chloride 88.1 L Carbon Dioxide 16 L BUN Creatinine 0.3 L Glucose 146 H POC Glucose Lactic Acid Uric Acid Calcium 8.2 L Phosphorus Magnesium 1.30 L Ferritin ALT 5 L Lactate Dehydrogenase Total Creatine Kinase CK-MB (CK-2) Troponin T NT-Pro-B Natriuret Pep Total Protein 5.4 L Albumin 3.6 L Prealbumin Cholesterol LDL Cholesterol Direct HDL Cholesterol Vitamin B12 Folate Urine WBC (Auto) Urine Creatinine Crossmatch 03/10/22 03/10/22 03/10/22 01:25 01:25 01:25 WBC RBC Hgb Hct MCH RDW Plt Count Lymph % (Auto) Lymph # (Auto) Seg Neutrophils % Seg Neuts % (Manual) Lymphocytes % (Manual) Nucleated RBC % Seg Neutrophils # Seg Neutrophils # Man Lymphocytes # (Manual) Monocytes # (Manual) Eosinophils # (Manual) D-Dimer ABG pH ABG pO2 ABG HCO3 ABG O2 Saturation ABG Base Excess ABG Hemoglobin Oxyhemoglobin Sodium Potassium Chloride Carbon Dioxide BUN Creatinine Glucose POC Glucose Lactic Acid 3.60 H* Uric Acid Calcium Phosphorus Magnesium Ferritin ALT Lactate Dehydrogenase Total Creatine Kinase CK-MB (CK-2) 4.6 H Troponin T 0.164 H* NT-Pro-B Natriuret Pep 26988 H Total Protein Albumin Prealbumin Cholesterol 259 H LDL Cholesterol Direct 187 H HDL Cholesterol 63 H Vitamin B12 Folate Urine WBC (Auto) Urine Creatinine Crossmatch 03/10/22 03/10/22 03/10/22 02:43 05:45 05:45 WBC RBC Hgb Hct MCH RDW Plt Count Lymph % (Auto) Lymph # (Auto) Seg Neutrophils % Seg Neuts % (Manual) Lymphocytes % (Manual) Nucleated RBC % Seg Neutrophils # Seg Neutrophils # Man Lymphocytes # (Manual) Monocytes # (Manual) Eosinophils # (Manual) D-Dimer 787.78 H ABG pH ABG pO2 ABG HCO3 ABG O2 Saturation ABG Base Excess ABG Hemoglobin Oxyhemoglobin Sodium Potassium Chloride Carbon Dioxide BUN Creatinine Glucose POC Glucose Lactic Acid 3.70 H* 3.10 H* Uric Acid Calcium Phosphorus Magnesium Ferritin ALT Lactate Dehydrogenase Total Creatine Kinase CK-MB (CK-2) Troponin T NT-Pro-B Natriuret Pep Total Protein Albumin Prealbumin Cholesterol LDL Cholesterol Direct HDL Cholesterol Vitamin B12 Folate Urine WBC (Auto) Urine Creatinine Crossmatch 03/10/22 03/10/22 03/10/22 05:45 05:45 12:24 WBC RBC Hgb Hct MCH RDW Plt Count Lymph % (Auto) Lymph # (Auto) Seg Neutrophils % Seg Neuts % (Manual) Lymphocytes % (Manual) Nucleated RBC % Seg Neutrophils # Seg Neutrophils # Man Lymphocytes # (Manual) Monocytes # (Manual) Eosinophils # (Manual) D-Dimer ABG pH ABG pO2 ABG HCO3 ABG O2 Saturation ABG Base Excess ABG Hemoglobin Oxyhemoglobin Sodium 124 L Potassium 3.3 L Chloride Carbon Dioxide 11 L BUN Creatinine 0.2 L Glucose POC Glucose Lactic Acid Uric Acid Calcium 6.9 L D Phosphorus Magnesium Ferritin 219.2 H ALT Lactate Dehydrogenase 210 H Total Creatine Kinase CK-MB (CK-2) Troponin T NT-Pro-B Natriuret Pep Total Protein Albumin Prealbumin Cholesterol LDL Cholesterol Direct HDL Cholesterol Vitamin B12 Folate Urine WBC (Auto) Urine Creatinine Crossmatch 03/10/22 03/10/22 03/10/22 12:24 12:24 12:24 WBC RBC Hgb Hct MCH RDW Plt Count Lymph % (Auto) Lymph # (Auto) Seg Neutrophils % Seg Neuts % (Manual) Lymphocytes % (Manual) Nucleated RBC % Seg Neutrophils # Seg Neutrophils # Man Lymphocytes # (Manual) Monocytes # (Manual) Eosinophils # (Manual) D-Dimer ABG pH ABG pO2 ABG HCO3 ABG O2 Saturation ABG Base Excess ABG Hemoglobin Oxyhemoglobin Sodium 128 L Potassium Chloride Carbon Dioxide BUN Creatinine Glucose POC Glucose Lactic Acid 2.70 H* Uric Acid Calcium Phosphorus Magnesium Ferritin ALT Lactate Dehydrogenase Total Creatine Kinase 901 H CK-MB (CK-2) 15.3 H Troponin T 0.032 H D NT-Pro-B Natriuret Pep Total Protein Albumin Prealbumin Cholesterol LDL Cholesterol Direct HDL Cholesterol Vitamin B12 Folate Urine WBC (Auto) Urine Creatinine Crossmatch 03/10/22 03/10/22 03/10/22 12:45 13:15 18:00 WBC RBC Hgb Hct MCH RDW Plt Count Lymph % (Auto) Lymph # (Auto) Seg Neutrophils % Seg Neuts % (Manual) Lymphocytes % (Manual) Nucleated RBC % Seg Neutrophils # Seg Neutrophils # Man Lymphocytes # (Manual) Monocytes # (Manual) Eosinophils # (Manual) D-Dimer ABG pH 7.315 L ABG pO2 70.1 L ABG HCO3 15.6 L ABG O2 Saturation 93.8 L ABG Base Excess -9.5 L ABG Hemoglobin 11.0 L Oxyhemoglobin 92.4 L Sodium 129 L Potassium Chloride Carbon Dioxide 17 L BUN Creatinine 0.2 L Glucose POC Glucose Lactic Acid Uric Acid 1.6 L Calcium 7.0 L Phosphorus Magnesium Ferritin ALT Lactate Dehydrogenase Total Creatine Kinase CK-MB (CK-2) Troponin T NT-Pro-B Natriuret Pep Total Protein Albumin Prealbumin Cholesterol LDL Cholesterol Direct HDL Cholesterol Vitamin B12 Folate Urine WBC (Auto) Urine Creatinine Crossmatch 03/10/22 03/10/22 03/11/22 18:20 21:05 05:00 WBC 13.7 H RBC 3.44 L Hgb 9.6 L Hct 29.0 L D MCH RDW Plt Count Lymph % (Auto) 8.9 L Lymph # (Auto) Seg Neutrophils % 86.6 H Seg Neuts % (Manual) Lymphocytes % (Manual) Nucleated RBC % Seg Neutrophils # 11.8 H Seg Neutrophils # Man Lymphocytes # (Manual) Monocytes # (Manual) Eosinophils # (Manual) D-Dimer ABG pH ABG pO2 116.3 H ABG HCO3 17.2 L ABG O2 Saturation ABG Base Excess -6.4 L ABG Hemoglobin 11.0 L Oxyhemoglobin Sodium Potassium Chloride Carbon Dioxide BUN Creatinine Glucose POC Glucose Lactic Acid Uric Acid Calcium Phosphorus Magnesium Ferritin ALT Lactate Dehydrogenase Total Creatine Kinase CK-MB (CK-2) Troponin T NT-Pro-B Natriuret Pep Total Protein Albumin Prealbumin Cholesterol LDL Cholesterol Direct HDL Cholesterol Vitamin B12 Folate Urine WBC (Auto) 105.0 H Urine Creatinine Crossmatch 03/11/22 03/11/22 03/12/22 05:00 Unknown 04:10 WBC RBC Hgb Hct MCH RDW Plt Count Lymph % (Auto) Lymph # (Auto) Seg Neutrophils % Seg Neuts % (Manual) Lymphocytes % (Manual) Nucleated RBC % Seg Neutrophils # Seg Neutrophils # Man Lymphocytes # (Manual) Monocytes # (Manual) Eosinophils # (Manual) D-Dimer ABG pH 7.472 H 7.482 H ABG pO2 65.5 L ABG HCO3 19.8 L ABG O2 Saturation ABG Base Excess -2.9 L ABG Hemoglobin 10.1 L 8.4 L Oxyhemoglobin Sodium 132 L Potassium Chloride Carbon Dioxide 20 L BUN 6 L Creatinine 0.2 L Glucose POC Glucose Lactic Acid Uric Acid Calcium 7.5 L Phosphorus Magnesium Ferritin ALT Lactate Dehydrogenase Total Creatine Kinase CK-MB (CK-2) Troponin T NT-Pro-B Natriuret Pep Total Protein Albumin Prealbumin Cholesterol LDL Cholesterol Direct HDL Cholesterol Vitamin B12 Folate Urine WBC (Auto) Urine Creatinine Crossmatch 03/12/22 03/12/22 03/12/22 04:20 04:20 12:25 WBC 13.6 H RBC 3.11 L Hgb 8.7 L Hct 26.1 L MCH RDW Plt Count Lymph % (Auto) Lymph # (Auto) Seg Neutrophils % Seg Neuts % (Manual) Lymphocytes % (Manual) Nucleated RBC % Seg Neutrophils # Seg Neutrophils # Man Lymphocytes # (Manual) Monocytes # (Manual) Eosinophils # (Manual) D-Dimer ABG pH ABG pO2 ABG HCO3 ABG O2 Saturation ABG Base Excess ABG Hemoglobin Oxyhemoglobin Sodium 128 L Potassium 3.2 L Chloride 93.9 L Carbon Dioxide BUN 4 L Creatinine 0.2 L Glucose 103 H POC Glucose 116 H Lactic Acid Uric Acid Calcium 7.4 L Phosphorus 1.10 L Magnesium 2.40 H Ferritin ALT Lactate Dehydrogenase Total Creatine Kinase CK-MB (CK-2) Troponin T NT-Pro-B Natriuret Pep Total Protein Albumin Prealbumin Cholesterol LDL Cholesterol Direct HDL Cholesterol Vitamin B12 Folate Urine WBC (Auto) Urine Creatinine Crossmatch 03/12/22 03/12/22 03/12/22 18:40 18:40 18:40 WBC RBC Hgb Hct MCH RDW Plt Count Lymph % (Auto) Lymph # (Auto) Seg Neutrophils % Seg Neuts % (Manual) Lymphocytes % (Manual) Nucleated RBC % Seg Neutrophils # Seg Neutrophils # Man Lymphocytes # (Manual) Monocytes # (Manual) Eosinophils # (Manual) D-Dimer ABG pH ABG pO2 ABG HCO3 ABG O2 Saturation ABG Base Excess ABG Hemoglobin Oxyhemoglobin Sodium Potassium Chloride Carbon Dioxide BUN Creatinine Glucose POC Glucose Lactic Acid Uric Acid Calcium Phosphorus Magnesium Ferritin ALT Lactate Dehydrogenase Total Creatine Kinase CK-MB (CK-2) Troponin T NT-Pro-B Natriuret Pep Total Protein Albumin Prealbumin 0.044 L Cholesterol LDL Cholesterol Direct HDL Cholesterol Vitamin B12 1021 H Folate 2.15 L Urine WBC (Auto) Urine Creatinine Crossmatch 03/13/22 03/13/22 03/13/22 04:10 08:00 09:50 WBC 15.0 H RBC 2.82 L Hgb 8.0 L Hct 23.9 L MCH RDW 15.5 H Plt Count Lymph % (Auto) Lymph # (Auto) Seg Neutrophils % Seg Neuts % (Manual) Lymphocytes % (Manual) Nucleated RBC % Seg Neutrophils # Seg Neutrophils # Man Lymphocytes # (Manual) Monocytes # (Manual) Eosinophils # (Manual) D-Dimer ABG pH ABG pO2 98.6 H ABG HCO3 ABG O2 Saturation ABG Base Excess ABG Hemoglobin 8.3 L Oxyhemoglobin Sodium 130 L Potassium Chloride 96.1 L Carbon Dioxide BUN Creatinine 0.4 L D Glucose 148 H POC Glucose Lactic Acid Uric Acid Calcium 7.3 L Phosphorus Magnesium Ferritin ALT Lactate Dehydrogenase Total Creatine Kinase CK-MB (CK-2) Troponin T NT-Pro-B Natriuret Pep Total Protein Albumin Prealbumin Cholesterol LDL Cholesterol Direct HDL Cholesterol Vitamin B12 Folate Urine WBC (Auto) Urine Creatinine Crossmatch 03/13/22 03/13/22 03/14/22 20:15 22:59 04:54 WBC 17.0 H RBC 2.79 L Hgb 7.8 L Hct 23.6 L MCH RDW 15.6 H Plt Count Lymph % (Auto) Lymph # (Auto) Seg Neutrophils % Seg Neuts % (Manual) Lymphocytes % (Manual) Nucleated RBC % Seg Neutrophils # Seg Neutrophils # Man Lymphocytes # (Manual) Monocytes # (Manual) Eosinophils # (Manual) D-Dimer ABG pH ABG pO2 ABG HCO3 ABG O2 Saturation ABG Base Excess -2.9 L ABG Hemoglobin 8.0 L Oxyhemoglobin Sodium Potassium Chloride Carbon Dioxide BUN Creatinine Glucose POC Glucose 127 H Lactic Acid Uric Acid Calcium Phosphorus Magnesium Ferritin ALT Lactate Dehydrogenase Total Creatine Kinase CK-MB (CK-2) Troponin T NT-Pro-B Natriuret Pep Total Protein Albumin Prealbumin Cholesterol LDL Cholesterol Direct HDL Cholesterol Vitamin B12 Folate Urine WBC (Auto) Urine Creatinine Crossmatch 03/14/22 03/14/22 03/14/22 04:54 16:15 22:59 WBC RBC Hgb Hct MCH RDW Plt Count Lymph % (Auto) Lymph # (Auto) Seg Neutrophils % Seg Neuts % (Manual) Lymphocytes % (Manual) Nucleated RBC % Seg Neutrophils # Seg Neutrophils # Man Lymphocytes # (Manual) Monocytes # (Manual) Eosinophils # (Manual) D-Dimer ABG pH ABG pO2 ABG HCO3 ABG O2 Saturation ABG Base Excess ABG Hemoglobin Oxyhemoglobin Sodium 129 L 128 L Potassium 3.5 L Chloride 97.1 L 97.0 L Carbon Dioxide BUN 24 H 31 H Creatinine 0.5 L Glucose 125 H 114 H POC Glucose 134 H Lactic Acid Uric Acid Calcium 7.0 L 7.0 L Phosphorus Magnesium Ferritin ALT Lactate Dehydrogenase Total Creatine Kinase CK-MB (CK-2) Troponin T NT-Pro-B Natriuret Pep Total Protein Albumin Prealbumin Cholesterol LDL Cholesterol Direct HDL Cholesterol Vitamin B12 Folate Urine WBC (Auto) Urine Creatinine Crossmatch 03/15/22 03/15/22 03/15/22 04:10 04:10 05:02 WBC 12.9 H RBC 2.55 L Hgb 7.1 L Hct 21.5 L MCH RDW 15.8 H Plt Count Lymph % (Auto) Lymph # (Auto) Seg Neutrophils % Seg Neuts % (Manual) 88.0 H Lymphocytes % (Manual) 5.0 L Nucleated RBC % Seg Neutrophils # Seg Neutrophils # Man 11.4 H Lymphocytes # (Manual) 0.6 L Monocytes # (Manual) Eosinophils # (Manual) 0.5 H D-Dimer ABG pH ABG pO2 ABG HCO3 ABG O2 Saturation ABG Base Excess ABG Hemoglobin Oxyhemoglobin Sodium 127 L Potassium Chloride 96.3 L Carbon Dioxide 21 L BUN 33 H Creatinine Glucose 126 H POC Glucose 116 H Lactic Acid Uric Acid Calcium 7.4 L Phosphorus 1.20 L Magnesium Ferritin ALT Lactate Dehydrogenase Total Creatine Kinase CK-MB (CK-2) Troponin T NT-Pro-B Natriuret Pep Total Protein 5.3 L Albumin 2.1 L Prealbumin Cholesterol LDL Cholesterol Direct HDL Cholesterol Vitamin B12 Folate Urine WBC (Auto) Urine Creatinine Crossmatch 03/15/22 03/15/22 03/15/22 05:55 09:42 11:34 WBC RBC Hgb Hct MCH RDW Plt Count Lymph % (Auto) Lymph # (Auto) Seg Neutrophils % Seg Neuts % (Manual) Lymphocytes % (Manual) Nucleated RBC % Seg Neutrophils # Seg Neutrophils # Man Lymphocytes # (Manual) Monocytes # (Manual) Eosinophils # (Manual) D-Dimer ABG pH ABG pO2 119.0 H ABG HCO3 ABG O2 Saturation ABG Base Excess -3.1 L ABG Hemoglobin 8.2 L Oxyhemoglobin Sodium Potassium Chloride Carbon Dioxide BUN Creatinine Glucose POC Glucose 125 H Lactic Acid Uric Acid Calcium Phosphorus Magnesium Ferritin ALT Lactate Dehydrogenase Total Creatine Kinase CK-MB (CK-2) Troponin T NT-Pro-B Natriuret Pep Total Protein Albumin Prealbumin Cholesterol LDL Cholesterol Direct HDL Cholesterol Vitamin B12 Folate Urine WBC (Auto) Urine Creatinine Crossmatch See Detail 03/15/22 03/16/22 03/16/22 20:55 04:50 04:50 WBC 16.9 H RBC 2.53 L Hgb 7.1 L Hct 21.5 L MCH RDW 16.0 H Plt Count Lymph % (Auto) Lymph # (Auto) Seg Neutrophils % Seg Neuts % (Manual) Lymphocytes % (Manual) Nucleated RBC % Seg Neutrophils # Seg Neutrophils # Man Lymphocytes # (Manual) Monocytes # (Manual) Eosinophils # (Manual) D-Dimer ABG pH 7.320 L ABG pO2 122.8 H ABG HCO3 ABG O2 Saturation ABG Base Excess -4.1 L ABG Hemoglobin 7.0 L Oxyhemoglobin Sodium 132 L Potassium Chloride Carbon Dioxide 20 L BUN 44 H Creatinine Glucose 123 H POC Glucose Lactic Acid Uric Acid Calcium 7.6 L Phosphorus Magnesium Ferritin ALT Lactate Dehydrogenase Total Creatine Kinase CK-MB (CK-2) Troponin T NT-Pro-B Natriuret Pep Total Protein Albumin Prealbumin Cholesterol LDL Cholesterol Direct HDL Cholesterol Vitamin B12 Folate Urine WBC (Auto) Urine Creatinine Crossmatch 03/16/22 03/16/22 03/16/22 05:42 11:32 23:05 WBC RBC Hgb Hct MCH RDW Plt Count Lymph % (Auto) Lymph # (Auto) Seg Neutrophils % Seg Neuts % (Manual) Lymphocytes % (Manual) Nucleated RBC % Seg Neutrophils # Seg Neutrophils # Man Lymphocytes # (Manual) Monocytes # (Manual) Eosinophils # (Manual) D-Dimer ABG pH ABG pO2 ABG HCO3 ABG O2 Saturation ABG Base Excess ABG Hemoglobin Oxyhemoglobin Sodium Potassium Chloride Carbon Dioxide BUN Creatinine Glucose POC Glucose 113 H 118 H 114 H Lactic Acid Uric Acid Calcium Phosphorus Magnesium Ferritin ALT Lactate Dehydrogenase Total Creatine Kinase CK-MB (CK-2) Troponin T NT-Pro-B Natriuret Pep Total Protein Albumin Prealbumin Cholesterol LDL Cholesterol Direct HDL Cholesterol Vitamin B12 Folate Urine WBC (Auto) Urine Creatinine Crossmatch 03/17/22 03/17/22 03/17/22 04:00 04:00 05:00 WBC 19.1 H RBC 2.44 L Hgb 6.6 L Hct 20.6 L MCH 27 L RDW 16.4 H Plt Count Lymph % (Auto) Lymph # (Auto) Seg Neutrophils % Seg Neuts % (Manual) 78.0 H Lymphocytes % (Manual) 2.0 L Nucleated RBC % Seg Neutrophils # Seg Neutrophils # Man 14.9 H Lymphocytes # (Manual) 0.4 L Monocytes # (Manual) 1.3 H Eosinophils # (Manual) 0.6 H D-Dimer ABG pH 7.334 L ABG pO2 132.4 H ABG HCO3 ABG O2 Saturation ABG Base Excess -2.7 L ABG Hemoglobin 9.1 L Oxyhemoglobin Sodium 134 L Potassium Chloride Carbon Dioxide BUN 55 H Creatinine Glucose 125 H POC Glucose Lactic Acid Uric Acid Calcium 8.1 L Phosphorus Magnesium Ferritin ALT Lactate Dehydrogenase Total Creatine Kinase CK-MB (CK-2) Troponin T NT-Pro-B Natriuret Pep Total Protein Albumin Prealbumin Cholesterol LDL Cholesterol Direct HDL Cholesterol Vitamin B12 Folate Urine WBC (Auto) Urine Creatinine Crossmatch 03/17/22 03/17/22 03/17/22 05:40 15:30 17:48 WBC RBC Hgb 8.2 L Hct 24.9 L MCH RDW Plt Count Lymph % (Auto) Lymph # (Auto) Seg Neutrophils % Seg Neuts % (Manual) Lymphocytes % (Manual) Nucleated RBC % Seg Neutrophils # Seg Neutrophils # Man Lymphocytes # (Manual) Monocytes # (Manual) Eosinophils # (Manual) D-Dimer ABG pH ABG pO2 ABG HCO3 ABG O2 Saturation ABG Base Excess ABG Hemoglobin Oxyhemoglobin Sodium Potassium Chloride Carbon Dioxide BUN Creatinine Glucose POC Glucose 115 H 117 H Lactic Acid Uric Acid Calcium Phosphorus Magnesium Ferritin ALT Lactate Dehydrogenase Total Creatine Kinase CK-MB (CK-2) Troponin T NT-Pro-B Natriuret Pep Total Protein Albumin Prealbumin Cholesterol LDL Cholesterol Direct HDL Cholesterol Vitamin B12 Folate Urine WBC (Auto) Urine Creatinine Crossmatch 03/17/22 03/18/22 03/18/22 23:54 05:04 05:20 WBC RBC Hgb Hct MCH RDW Plt Count Lymph % (Auto) Lymph # (Auto) Seg Neutrophils % Seg Neuts % (Manual) Lymphocytes % (Manual) Nucleated RBC % Seg Neutrophils # Seg Neutrophils # Man Lymphocytes # (Manual) Monocytes # (Manual) Eosinophils # (Manual) D-Dimer ABG pH 7.302 L ABG pO2 71.0 L ABG HCO3 ABG O2 Saturation 94.9 L ABG Base Excess -4.3 L ABG Hemoglobin 9.6 L Oxyhemoglobin 92.9 L Sodium 135 L Potassium Chloride Carbon Dioxide BUN 66 H Creatinine Glucose 122 H POC Glucose 114 H Lactic Acid Uric Acid Calcium 8.2 L Phosphorus Magnesium Ferritin ALT Lactate Dehydrogenase Total Creatine Kinase CK-MB (CK-2) Troponin T NT-Pro-B Natriuret Pep Total Protein 5.4 L Albumin 2.0 L Prealbumin Cholesterol LDL Cholesterol Direct HDL Cholesterol Vitamin B12 Folate Urine WBC (Auto) Urine Creatinine Crossmatch 03/18/22 03/18/22 03/18/22 05:20 06:44 12:04 WBC 23.9 H RBC 2.88 L Hgb 8.1 L Hct 25.1 L MCH RDW 16.0 H Plt Count Lymph % (Auto) Lymph # (Auto) Seg Neutrophils % Seg Neuts % (Manual) 89.0 H Lymphocytes % (Manual) 7.5 L Nucleated RBC % Seg Neutrophils # Seg Neutrophils # Man 21.3 H Lymphocytes # (Manual) Monocytes # (Manual) Eosinophils # (Manual) D-Dimer ABG pH ABG pO2 ABG HCO3 ABG O2 Saturation ABG Base Excess ABG Hemoglobin Oxyhemoglobin Sodium Potassium Chloride Carbon Dioxide BUN Creatinine Glucose POC Glucose 107 H 119 H Lactic Acid Uric Acid Calcium Phosphorus Magnesium Ferritin ALT Lactate Dehydrogenase Total Creatine Kinase CK-MB (CK-2) Troponin T NT-Pro-B Natriuret Pep Total Protein Albumin Prealbumin Cholesterol LDL Cholesterol Direct HDL Cholesterol Vitamin B12 Folate Urine WBC (Auto) Urine Creatinine Crossmatch 03/19/22 03/19/22 03/19/22 05:15 08:59 08:59 WBC 30.4 H RBC 2.78 L Hgb 7.7 L Hct 24.2 L MCH RDW 16.4 H Plt Count Lymph % (Auto) Lymph # (Auto) Seg Neutrophils % Seg Neuts % (Manual) Lymphocytes % (Manual) Nucleated RBC % Seg Neutrophils # Seg Neutrophils # Man Lymphocytes # (Manual) Monocytes # (Manual) Eosinophils # (Manual) D-Dimer ABG pH 7.341 L ABG pO2 78.1 L ABG HCO3 ABG O2 Saturation ABG Base Excess -4.5 L ABG Hemoglobin 9.5 L Oxyhemoglobin Sodium 132 L Potassium 5.5 H Chloride Carbon Dioxide 19 L BUN 84 H Creatinine Glucose 124 H POC Glucose Lactic Acid Uric Acid Calcium Phosphorus Magnesium Ferritin ALT Lactate Dehydrogenase Total Creatine Kinase CK-MB (CK-2) Troponin T NT-Pro-B Natriuret Pep Total Protein Albumin Prealbumin Cholesterol LDL Cholesterol Direct HDL Cholesterol Vitamin B12 Folate Urine WBC (Auto) Urine Creatinine Crossmatch 03/19/22 03/19/22 03/19/22 14:40 14:40 18:37 WBC RBC Hgb Hct MCH RDW Plt Count Lymph % (Auto) Lymph # (Auto) Seg Neutrophils % Seg Neuts % (Manual) Lymphocytes % (Manual) Nucleated RBC % Seg Neutrophils # Seg Neutrophils # Man Lymphocytes # (Manual) Monocytes # (Manual) Eosinophils # (Manual) D-Dimer ABG pH 7.337 L ABG pO2 41.2 L ABG HCO3 ABG O2 Saturation 74.8 L ABG Base Excess -4.5 L ABG Hemoglobin 7.9 L Oxyhemoglobin 72.9 L Sodium Potassium Chloride Carbon Dioxide BUN Creatinine Glucose POC Glucose 120 H Lactic Acid Uric Acid Calcium Phosphorus Magnesium Ferritin ALT Lactate Dehydrogenase Total Creatine Kinase CK-MB (CK-2) Troponin T NT-Pro-B Natriuret Pep Total Protein Albumin Prealbumin Cholesterol LDL Cholesterol Direct HDL Cholesterol Vitamin B12 Folate Urine WBC (Auto) Urine Creatinine 34.4 H Crossmatch 03/19/22 03/20/22 03/20/22 23:15 05:20 05:20 WBC 29.5 H RBC 2.76 L Hgb 7.6 L Hct 23.7 L MCH 27 L RDW 16.6 H Plt Count Lymph % (Auto) Lymph # (Auto) Seg Neutrophils % Seg Neuts % (Manual) Lymphocytes % (Manual) Nucleated RBC % Seg Neutrophils # Seg Neutrophils # Man Lymphocytes # (Manual) Monocytes # (Manual) Eosinophils # (Manual) D-Dimer ABG pH ABG pO2 ABG HCO3 ABG O2 Saturation ABG Base Excess ABG Hemoglobin Oxyhemoglobin Sodium Potassium Chloride Carbon Dioxide BUN 96 H Creatinine Glucose 141 H POC Glucose 125 H Lactic Acid Uric Acid Calcium Phosphorus Magnesium Ferritin ALT Lactate Dehydrogenase Total Creatine Kinase CK-MB (CK-2) Troponin T NT-Pro-B Natriuret Pep Total Protein Albumin Prealbumin Cholesterol LDL Cholesterol Direct HDL Cholesterol Vitamin B12 Folate Urine WBC (Auto) Urine Creatinine Crossmatch 03/20/22 03/20/22 03/21/22 06:09 10:05 04:00 WBC RBC Hgb Hct MCH RDW Plt Count Lymph % (Auto) Lymph # (Auto) Seg Neutrophils % Seg Neuts % (Manual) Lymphocytes % (Manual) Nucleated RBC % Seg Neutrophils # Seg Neutrophils # Man Lymphocytes # (Manual) Monocytes # (Manual) Eosinophils # (Manual) D-Dimer ABG pH 7.278 L ABG pO2 71.0 L ABG HCO3 ABG O2 Saturation 92.6 L ABG Base Excess ABG Hemoglobin 8.2 L Oxyhemoglobin 90.5 L Sodium 135 L Potassium 5.7 H D Chloride 97.4 L Carbon Dioxide 21 L BUN 104 H Creatinine 1.3 H Glucose 118 H POC Glucose 121 H Lactic Acid Uric Acid Calcium Phosphorus Magnesium Ferritin ALT Lactate Dehydrogenase Total Creatine Kinase CK-MB (CK-2) Troponin T NT-Pro-B Natriuret Pep Total Protein Albumin Prealbumin Cholesterol LDL Cholesterol Direct HDL Cholesterol Vitamin B12 Folate Urine WBC (Auto) Urine Creatinine Crossmatch 03/21/22 03/21/22 04:40 15:30 WBC 25.6 H RBC 2.61 L Hgb 7.3 L Hct 22.8 L MCH RDW 16.8 H Plt Count 462 H Lymph % (Auto) Lymph # (Auto) Seg Neutrophils % Seg Neuts % (Manual) 71.0 H Lymphocytes % (Manual) 2.0 L Nucleated RBC % 1.0 H Seg Neutrophils # Seg Neutrophils # Man 18.2 H Lymphocytes # (Manual) 0.5 L Monocytes # (Manual) 1.8 H Eosinophils # (Manual) 0.8 H D-Dimer ABG pH ABG pO2 76.6 L ABG HCO3 ABG O2 Saturation ABG Base Excess -5.7 L ABG Hemoglobin Oxyhemoglobin Sodium Potassium Chloride Carbon Dioxide BUN Creatinine Glucose POC Glucose Lactic Acid Uric Acid Calcium Phosphorus Magnesium Ferritin ALT Lactate Dehydrogenase Total Creatine Kinase CK-MB (CK-2) Troponin T NT-Pro-B Natriuret Pep Total Protein Albumin Prealbumin Cholesterol LDL Cholesterol Direct HDL Cholesterol Vitamin B12 Folate Urine WBC (Auto) Urine Creatinine Crossmatch Chest x-ray: image reviewed Allied health notes reviewed: RT
[2022-03-21 17:24] LABS: ABG Methemoglobin 0.4 % (0.0-1.5); ABG Oxygen Saturation 96.4 % (95.0-99.0)
[2022-03-21 17:31] LABS: ABG PH 7.197 pH Units (7.350-7.450)
[2022-03-21 21:26] LABS: ABG Base Excess -3.7 mmol/L (-2.0-3.0); ABG HCO3 22.8 mmol/L (20.0-26.0); ABG Methemoglobin 0.4 % (0.0-1.5); ABG Oxygen Saturation 92.8 % (95.0-99.0); ABG PCO2 49.1 mm Hg; ABG PH 7.284 pH Units (7.350-7.450); ABG PO2 68.6 mm Hg (80.0-90.0)
[2022-03-21] MEDS: NORepinephrine/NS 8 MG-250 ML 8 MG/250 ML INFUS..BTL IV SCH (21:35)
[2022-03-22] MEDS: VASOPRESSIN 20 UNIT in SODIUM CHLORIDE 0.9% 100 ML IV SCH ×2 (00:03→12:35)
[2022-03-22] MEDS: fentaNYL DRIP Premix 2,000 MCG/100 ML BAG IV SCH ×4 (04:02→20:16)
[2022-03-22 04:22] LABS: Hematocrit 22.3 % (30.3-42.9); Hemoglobin 7.4 gm/dl (10.1-14.3); Mean Corpuscular HGB Conc 33 % (30-34); Mean Corpuscular Volume 86 fl (79-97); Platelet Count 517 K/mm3 (140-440); Red Cell Distribution Width 16.8 % (13.2-15.2)
[2022-03-22 04:45] LABS: Calcium 8.5 mg/dL (8.4-10.2)
[2022-03-22] MEDS: MIDODRINE 5 MG TAB PO SCH ×3 (07:52→16:43)
[2022-03-22] MEDS ORDERED: SODIUM POLYSTYRENE 15 GM/60 ML ORAL LIQD PO SCH (08:00)
--- NOTE | 2022-03-22 09:01 | Progress Note ---
Assessment and Plan This is a 61-year-old female with known past medical history of Multiple Sclerosis and seizure disorder admitted for sepsis, Hyponatremia, and acute hypoxic respiratory failure requiring ventilatory support Acute Hypoxemic Respiratory Failure, on MVS ARDS Septic shock -2 pressor with MODS Multifocal Pneumonia/CAP- possible aspiration TANIYA C.diff PCR positive Leukemoid reaction with thromocytosis NSTEMI/Elevated Troponin- probable type 2 ischemia Elevated BNP Acute Metabolic Encephalopathy H/o Seizure Disorder Elevated D-Dimer Moderate Protein Calorie Malnutrition will need HD, but deemed unsafe Worsening leukocytosis Updated the son and DIL -continue to titrate supplemental oxygen to keep SpO2 90-92% -VAP bundle addressed, aspiration precautions HOB >40 -continue lung protective strategies; ARDS net protocol -Bicarbonate for pH <7.2 per ARDS net protocol -continue bronchodilators with pulmonary hygiene per RT -Continue Antibiotics per ID- on Vancomyin (po ), Metronidazole IV -Continue to trend temperature curve and WCC -CXR, ABG as clinically indicated - continue accuchecks with glycemic control per SSI (While critically ill target blood glucose of 140-180 mg/dL; avoid hypoglycemia) - avoid nephrotoxins, renally dose all medications - continue to avoid benzodiazepines, reduce the possibility of delirium - Maintenance of sleep-wake cycle, avoid delirium -Continue with enteric nutritional support - VTE prophylaxis- anticoagulation with therapeutic low intensity heparin -Stress ulcer prophylaxis- Famotidine - mobility, off loading and frequent turning per facility protocol to prevent pressure ulcers - Monitor hemodynamics closely - continue other care per attending / other consultants CONDITION: CRITICAL PROGNOSIS: GRAVE CODE STATUS: FULL The high probability of a clinically significant, sudden or life threatening deterioration of the [respiratory, cardiovascular, neurology,renal ] system(s) required my full and direct attention, intervention and personal management. The aggregate critical care time was [35 ] minutes. This time is in addition to time spent performing reported procedures but includes the following: [x] Data Review and interpretation [x] Patient assessment and monitoring of vital signs [x] Documentation [x] Medication orders and management Subjective Date of service: 03/22/22 Principal diagnosis: AHRF; Multifocal Pneumonia; Septic shock; NSTEMI; AMS; Seizures Interval history: follow up fro: Acute hypoxemic resp failure on MVS; Acute encephalopathy; Septic shock; Bilateral pneumonia-aspiration/CAP Severe hyponatremia Seen and examined. Vitals, labs, medications, chart reviewed. Discussed with nursing and respiratory care staff. No fevers, remains on Norepinephrine, on Vasopressin and bicarbonate infusion Vent: ACVC-28/400/+14/100% On going episodes of desaturations overnight, worsening metabolic acidosis- minute ventilation adjusted to improve acid-base remains on Fentanyl-low dose, minimally responsive Objective Vital Signs - 12hr 03/21/22 03/21/22 03/21/22 21:15 21:31 21:45 Temperature Pulse Rate 90 89 97 H Pulse Rate [ From Monitor] Respiratory 24 24 24 Rate Blood Pressure 83/55 75/45 87/57 O2 Sat by Pulse 98 Oximetry 03/21/22 03/21/22 03/21/22 21:50 22:01 22:15 Temperature Pulse Rate 94 H 95 H Pulse Rate [ From Monitor] Respiratory 28 H 28 H Rate Blood Pressure 88/60 88/57 O2 Sat by Pulse 91 93 Oximetry 03/21/22 03/21/22 03/21/22 22:30 22:45 23:01 Temperature Pulse Rate 94 H 92 H 93 H Pulse Rate [ From Monitor] Respiratory 28 H 28 H 28 H Rate Blood Pressure 88/58 89/58 87/59 O2 Sat by Pulse 97 Oximetry 03/21/22 03/21/22 03/21/22 23:15 23:26 23:31 Temperature Pulse Rate 94 H 93 H 93 H Pulse Rate [ From Monitor] Respiratory 29 H 28 H Rate Blood Pressure 87/59 91/58 97/52 O2 Sat by Pulse 96 96 94 Oximetry 03/21/22 03/22/22 03/22/22 23:45 00:00 00:15 Temperature 98.1 F Pulse Rate 94 H 92 H 93 H Pulse Rate [ 93 H From Monitor] Respiratory 28 H 28 H 28 H Rate Blood Pressure 97/52 95/61 95/61 O2 Sat by Pulse 97 91 97 Oximetry 03/22/22 03/22/22 03/22/22 00:31 00:45 01:00 Temperature Pulse Rate 93 H 93 H 92 H Pulse Rate [ From Monitor] Respiratory 28 H 28 H 28 H Rate Blood Pressure 90/59 90/59 88/60 O2 Sat by Pulse 96 94 Oximetry 03/22/22 03/22/22 03/22/22 01:15 01:30 01:45 Temperature Pulse Rate 93 H 90 92 H Pulse Rate [ From Monitor] Respiratory 28 H 28 H 28 H Rate Blood Pressure 96/58 90/59 90/58 O2 Sat by Pulse 96 96 Oximetry 03/22/22 03/22/22 03/22/22 02:00 02:15 02:30 Temperature Pulse Rate 92 H 92 H 92 H Pulse Rate [ From Monitor] Respiratory 27 H 28 H 28 H Rate Blood Pressure 98/60 93/62 97/65 O2 Sat by Pulse 96 Oximetry 03/22/22 03/22/22 03/22/22 02:45 03:01 03:15 Temperature Pulse Rate 91 H 89 88 Pulse Rate [ From Monitor] Respiratory 28 H 28 H 28 H Rate Blood Pressure 92/63 99/67 96/62 O2 Sat by Pulse 96 Oximetry 03/22/22 03/22/22 03/22/22 03:31 03:45 04:00 Temperature 99.1 F Pulse Rate 91 H 90 89 Pulse Rate [ 89 From Monitor] Respiratory 28 H 28 H 28 H Rate Blood Pressure 92/65 92/65 87/58 O2 Sat by Pulse 95 97 96 Oximetry 03/22/22 03/22/22 03/22/22 04:08 04:15 04:30 Temperature Pulse Rate 89 90 91 H Pulse Rate [ From Monitor] Respiratory 28 H 28 H Rate Blood Pressure 99/67 92/65 97/65 O2 Sat by Pulse 96 96 Oximetry 03/22/22 03/22/22 03/22/22 04:45 05:00 05:15 Temperature Pulse Rate 91 H 91 H 89 Pulse Rate [ From Monitor] Respiratory 28 H 28 H 29 H Rate Blood Pressure 105/65 95/64 93/62 O2 Sat by Pulse 98 Oximetry 03/22/22 03/22/22 03/22/22 05:30 05:45 06:01 Temperature Pulse Rate 90 89 96 H Pulse Rate [ From Monitor] Respiratory 28 H 28 H 28 H Rate Blood Pressure 101/65 95/60 99/69 O2 Sat by Pulse 96 99 96 Oximetry 03/22/22 03/22/22 03/22/22 06:15 06:31 06:45 Temperature Pulse Rate 88 88 87 Pulse Rate [ From Monitor] Respiratory 28 H 28 H 28 H Rate Blood Pressure 96/65 97/65 99/63 O2 Sat by Pulse 94 100 97 Oximetry 03/22/22 03/22/22 03/22/22 06:57 07:00 07:15 Temperature 99.3 F Pulse Rate 90 89 Pulse Rate [ From Monitor] Respiratory 28 H 28 H Rate Blood Pressure 100/64 97/63 O2 Sat by Pulse 96 Oximetry 03/22/22 03/22/22 03/22/22 07:30 07:45 08:00 Temperature Pulse Rate 88 89 86 Pulse Rate [ From Monitor] Respiratory 29 H 28 H 28 H Rate Blood Pressure 97/62 96/66 93/61 O2 Sat by Pulse 96 Oximetry 03/22/22 03/22/22 03/22/22 08:08 08:10 08:11 Temperature Pulse Rate 88 88 Pulse Rate [ 88 From Monitor] Respiratory 28 H Rate Blood Pressure 93/61 O2 Sat by Pulse 98 96 Oximetry Constitutional: no acute distress, alert, other (middle aged female with anasarca and mild dyssynchrony on MVS) Eyes: non-icteric ENT: oropharynx moist, other (ETT 24 cm BLANCA) Neck: supple, no lymphadenopathy, no JVD Effort: mildly labored Ascultation: Bilateral: rales Percussion: Bilateral: not dull Cardiovascular: regular rate and rhythm Gastrointestinal: normoactive bowel sounds, soft, non-tender, non-distended Integumentary: normal Extremities: no cyanosis, pulses normal, no ischemia or petechiae, edema (2+ and anasarca ) Neurologic: pupils equal and round, unable to assess, other (weak) Psychiatric: other (unable to assess re: AMS) CBC and BMP: 03/28/22 04:17 03/28/22 04:17 ABG, PT/INR, D-dimer: ABG ABG pH 7.284 pH Units (7.350-7.450) L 03/21/22 21:00 ABG pCO2 49.1 mm Hg 03/21/22 21:00 ABG pO2 68.6 mm Hg (80.0-90.0) L 03/21/22 21:00 ABG O2 Saturation 92.8 % (95.0-99.0) L 03/21/22 21:00 PT/INR, D-dimer PT 14.9 Sec. (12.2-14.9) 03/10/22 01:25 INR 1.03 (0.87-1.13) 03/10/22 01:25 D-Dimer 787.78 ng/mlDDU (0-234) H 03/10/22 05:45 Abnormal lab findings: Abnormal Labs 03/10/22 03/10/22 03/10/22 01:19 01:25 01:25 WBC RBC Hgb Hct MCH RDW 15.4 H Plt Count Lymph % (Auto) 12.4 L Lymph # (Auto) 1.1 L Seg Neutrophils % 85.9 H Seg Neuts % (Manual) Lymphocytes % (Manual) Nucleated RBC % Seg Neutrophils # Seg Neutrophils # Man Lymphocytes # (Manual) Monocytes # (Manual) Eosinophils # (Manual) D-Dimer ABG pH ABG pO2 59.3 L ABG HCO3 16.7 L ABG O2 Saturation 92.3 L ABG Base Excess -7.8 L ABG Hemoglobin 11.4 L Oxyhemoglobin 90.8 L Sodium 119 L* Potassium 3.1 L Chloride 88.1 L Carbon Dioxide 16 L BUN Creatinine 0.3 L Glucose 146 H POC Glucose Lactic Acid Uric Acid Calcium 8.2 L Phosphorus Magnesium 1.30 L Ferritin ALT 5 L Lactate Dehydrogenase Total Creatine Kinase CK-MB (CK-2) Troponin T NT-Pro-B Natriuret Pep Total Protein 5.4 L Albumin 3.6 L Prealbumin Cholesterol LDL Cholesterol Direct HDL Cholesterol Vitamin B12 Folate Urine WBC (Auto) Urine Creatinine Crossmatch 03/10/22 03/10/22 03/10/22 01:25 01:25 01:25 WBC RBC Hgb Hct MCH RDW Plt Count Lymph % (Auto) Lymph # (Auto) Seg Neutrophils % Seg Neuts % (Manual) Lymphocytes % (Manual) Nucleated RBC % Seg Neutrophils # Seg Neutrophils # Man Lymphocytes # (Manual) Monocytes # (Manual) Eosinophils # (Manual) D-Dimer ABG pH ABG pO2 ABG HCO3 ABG O2 Saturation ABG Base Excess ABG Hemoglobin Oxyhemoglobin Sodium Potassium Chloride Carbon Dioxide BUN Creatinine Glucose POC Glucose Lactic Acid 3.60 H* Uric Acid Calcium Phosphorus Magnesium Ferritin ALT Lactate Dehydrogenase Total Creatine Kinase CK-MB (CK-2) 4.6 H Troponin T 0.164 H* NT-Pro-B Natriuret Pep 96729 H Total Protein Albumin Prealbumin Cholesterol 259 H LDL Cholesterol Direct 187 H HDL Cholesterol 63 H Vitamin B12 Folate Urine WBC (Auto) Urine Creatinine Crossmatch 03/10/22 03/10/22 03/10/22 02:43 05:45 05:45 WBC RBC Hgb Hct MCH RDW Plt Count Lymph % (Auto) Lymph # (Auto) Seg Neutrophils % Seg Neuts % (Manual) Lymphocytes % (Manual) Nucleated RBC % Seg Neutrophils # Seg Neutrophils # Man Lymphocytes # (Manual) Monocytes # (Manual) Eosinophils # (Manual) D-Dimer 787.78 H ABG pH ABG pO2 ABG HCO3 ABG O2 Saturation ABG Base Excess ABG Hemoglobin Oxyhemoglobin Sodium Potassium Chloride Carbon Dioxide BUN Creatinine Glucose POC Glucose Lactic Acid 3.70 H* 3.10 H* Uric Acid Calcium Phosphorus Magnesium Ferritin ALT Lactate Dehydrogenase Total Creatine Kinase CK-MB (CK-2) Troponin T NT-Pro-B Natriuret Pep Total Protein Albumin Prealbumin Cholesterol LDL Cholesterol Direct HDL Cholesterol Vitamin B12 Folate Urine WBC (Auto) Urine Creatinine Crossmatch 03/10/22 03/10/22 03/10/22 05:45 05:45 12:24 WBC RBC Hgb Hct MCH RDW Plt Count Lymph % (Auto) Lymph # (Auto) Seg Neutrophils % Seg Neuts % (Manual) Lymphocytes % (Manual) Nucleated RBC % Seg Neutrophils # Seg Neutrophils # Man Lymphocytes # (Manual) Monocytes # (Manual) Eosinophils # (Manual) D-Dimer ABG pH ABG pO2 ABG HCO3 ABG O2 Saturation ABG Base Excess ABG Hemoglobin Oxyhemoglobin Sodium 124 L Potassium 3.3 L Chloride Carbon Dioxide 11 L BUN Creatinine 0.2 L Glucose POC Glucose Lactic Acid Uric Acid Calcium 6.9 L D Phosphorus Magnesium Ferritin 219.2 H ALT Lactate Dehydrogenase 210 H Total Creatine Kinase CK-MB (CK-2) Troponin T NT-Pro-B Natriuret Pep Total Protein Albumin Prealbumin Cholesterol LDL Cholesterol Direct HDL Cholesterol Vitamin B12 Folate Urine WBC (Auto) Urine Creatinine Crossmatch 03/10/22 03/10/22 03/10/22 12:24 12:24 12:24 WBC RBC Hgb Hct MCH RDW Plt Count Lymph % (Auto) Lymph # (Auto) Seg Neutrophils % Seg Neuts % (Manual) Lymphocytes % (Manual) Nucleated RBC % Seg Neutrophils # Seg Neutrophils # Man Lymphocytes # (Manual) Monocytes # (Manual) Eosinophils # (Manual) D-Dimer ABG pH ABG pO2 ABG HCO3 ABG O2 Saturation ABG Base Excess ABG Hemoglobin Oxyhemoglobin Sodium 128 L Potassium Chloride Carbon Dioxide BUN Creatinine Glucose POC Glucose Lactic Acid 2.70 H* Uric Acid Calcium Phosphorus Magnesium Ferritin ALT Lactate Dehydrogenase Total Creatine Kinase 901 H CK-MB (CK-2) 15.3 H Troponin T 0.032 H D NT-Pro-B Natriuret Pep Total Protein Albumin Prealbumin Cholesterol LDL Cholesterol Direct HDL Cholesterol Vitamin B12 Folate Urine WBC (Auto) Urine Creatinine Crossmatch 03/10/22 03/10/22 03/10/22 12:45 13:15 18:00 WBC RBC Hgb Hct MCH RDW Plt Count Lymph % (Auto) Lymph # (Auto) Seg Neutrophils % Seg Neuts % (Manual) Lymphocytes % (Manual) Nucleated RBC % Seg Neutrophils # Seg Neutrophils # Man Lymphocytes # (Manual) Monocytes # (Manual) Eosinophils # (Manual) D-Dimer ABG pH 7.315 L ABG pO2 70.1 L ABG HCO3 15.6 L ABG O2 Saturation 93.8 L ABG Base Excess -9.5 L ABG Hemoglobin 11.0 L Oxyhemoglobin 92.4 L Sodium 129 L Potassium Chloride Carbon Dioxide 17 L BUN Creatinine 0.2 L Glucose POC Glucose Lactic Acid Uric Acid 1.6 L Calcium 7.0 L Phosphorus Magnesium Ferritin ALT Lactate Dehydrogenase Total Creatine Kinase CK-MB (CK-2) Troponin T NT-Pro-B Natriuret Pep Total Protein Albumin Prealbumin Cholesterol LDL Cholesterol Direct HDL Cholesterol Vitamin B12 Folate Urine WBC (Auto) Urine Creatinine Crossmatch 03/10/22 03/10/22 03/11/22 18:20 21:05 05:00 WBC 13.7 H RBC 3.44 L Hgb 9.6 L Hct 29.0 L D MCH RDW Plt Count Lymph % (Auto) 8.9 L Lymph # (Auto) Seg Neutrophils % 86.6 H Seg Neuts % (Manual) Lymphocytes % (Manual) Nucleated RBC % Seg Neutrophils # 11.8 H Seg Neutrophils # Man Lymphocytes # (Manual) Monocytes # (Manual) Eosinophils # (Manual) D-Dimer ABG pH ABG pO2 116.3 H ABG HCO3 17.2 L ABG O2 Saturation ABG Base Excess -6.4 L ABG Hemoglobin 11.0 L Oxyhemoglobin Sodium Potassium Chloride Carbon Dioxide BUN Creatinine Glucose POC Glucose Lactic Acid Uric Acid Calcium Phosphorus Magnesium Ferritin ALT Lactate Dehydrogenase Total Creatine Kinase CK-MB (CK-2) Troponin T NT-Pro-B Natriuret Pep Total Protein Albumin Prealbumin Cholesterol LDL Cholesterol Direct HDL Cholesterol Vitamin B12 Folate Urine WBC (Auto) 105.0 H Urine Creatinine Crossmatch 03/11/22 03/11/22 03/12/22 05:00 Unknown 04:10 WBC RBC Hgb Hct MCH RDW Plt Count Lymph % (Auto) Lymph # (Auto) Seg Neutrophils % Seg Neuts % (Manual) Lymphocytes % (Manual) Nucleated RBC % Seg Neutrophils # Seg Neutrophils # Man Lymphocytes # (Manual) Monocytes # (Manual) Eosinophils # (Manual) D-Dimer ABG pH 7.472 H 7.482 H ABG pO2 65.5 L ABG HCO3 19.8 L ABG O2 Saturation ABG Base Excess -2.9 L ABG Hemoglobin 10.1 L 8.4 L Oxyhemoglobin Sodium 132 L Potassium Chloride Carbon Dioxide 20 L BUN 6 L Creatinine 0.2 L Glucose POC Glucose Lactic Acid Uric Acid Calcium 7.5 L Phosphorus Magnesium Ferritin ALT Lactate Dehydrogenase Total Creatine Kinase CK-MB (CK-2) Troponin T NT-Pro-B Natriuret Pep Total Protein Albumin Prealbumin Cholesterol LDL Cholesterol Direct HDL Cholesterol Vitamin B12 Folate Urine WBC (Auto) Urine Creatinine Crossmatch 03/12/22 03/12/22 03/12/22 04:20 04:20 12:25 WBC 13.6 H RBC 3.11 L Hgb 8.7 L Hct 26.1 L MCH RDW Plt Count Lymph % (Auto) Lymph # (Auto) Seg Neutrophils % Seg Neuts % (Manual) Lymphocytes % (Manual) Nucleated RBC % Seg Neutrophils # Seg Neutrophils # Man Lymphocytes # (Manual) Monocytes # (Manual) Eosinophils # (Manual) D-Dimer ABG pH ABG pO2 ABG HCO3 ABG O2 Saturation ABG Base Excess ABG Hemoglobin Oxyhemoglobin Sodium 128 L Potassium 3.2 L Chloride 93.9 L Carbon Dioxide BUN 4 L Creatinine 0.2 L Glucose 103 H POC Glucose 116 H Lactic Acid Uric Acid Calcium 7.4 L Phosphorus 1.10 L Magnesium 2.40 H Ferritin ALT Lactate Dehydrogenase Total Creatine Kinase CK-MB (CK-2) Troponin T NT-Pro-B Natriuret Pep Total Protein Albumin Prealbumin Cholesterol LDL Cholesterol Direct HDL Cholesterol Vitamin B12 Folate Urine WBC (Auto) Urine Creatinine Crossmatch 03/12/22 03/12/22 03/12/22 18:40 18:40 18:40 WBC RBC Hgb Hct MCH RDW Plt Count Lymph % (Auto) Lymph # (Auto) Seg Neutrophils % Seg Neuts % (Manual) Lymphocytes % (Manual) Nucleated RBC % Seg Neutrophils # Seg Neutrophils # Man Lymphocytes # (Manual) Monocytes # (Manual) Eosinophils # (Manual) D-Dimer ABG pH ABG pO2 ABG HCO3 ABG O2 Saturation ABG Base Excess ABG Hemoglobin Oxyhemoglobin Sodium Potassium Chloride Carbon Dioxide BUN Creatinine Glucose POC Glucose Lactic Acid Uric Acid Calcium Phosphorus Magnesium Ferritin ALT Lactate Dehydrogenase Total Creatine Kinase CK-MB (CK-2) Troponin T NT-Pro-B Natriuret Pep Total Protein Albumin Prealbumin 0.044 L Cholesterol LDL Cholesterol Direct HDL Cholesterol Vitamin B12 1021 H Folate 2.15 L Urine WBC (Auto) Urine Creatinine Crossmatch 03/13/22 03/13/22 03/13/22 04:10 08:00 09:50 WBC 15.0 H RBC 2.82 L Hgb 8.0 L Hct 23.9 L MCH RDW 15.5 H Plt Count Lymph % (Auto) Lymph # (Auto) Seg Neutrophils % Seg Neuts % (Manual) Lymphocytes % (Manual) Nucleated RBC % Seg Neutrophils # Seg Neutrophils # Man Lymphocytes # (Manual) Monocytes # (Manual) Eosinophils # (Manual) D-Dimer ABG pH ABG pO2 98.6 H ABG HCO3 ABG O2 Saturation ABG Base Excess ABG Hemoglobin 8.3 L Oxyhemoglobin Sodium 130 L Potassium Chloride 96.1 L Carbon Dioxide BUN Creatinine 0.4 L D Glucose 148 H POC Glucose Lactic Acid Uric Acid Calcium 7.3 L Phosphorus Magnesium Ferritin ALT Lactate Dehydrogenase Total Creatine Kinase CK-MB (CK-2) Troponin T NT-Pro-B Natriuret Pep Total Protein Albumin Prealbumin Cholesterol LDL Cholesterol Direct HDL Cholesterol Vitamin B12 Folate Urine WBC (Auto) Urine Creatinine Crossmatch 03/13/22 03/13/22 03/14/22 20:15 22:59 04:54 WBC 17.0 H RBC 2.79 L Hgb 7.8 L Hct 23.6 L MCH RDW 15.6 H Plt Count Lymph % (Auto) Lymph # (Auto) Seg Neutrophils % Seg Neuts % (Manual) Lymphocytes % (Manual) Nucleated RBC % Seg Neutrophils # Seg Neutrophils # Man Lymphocytes # (Manual) Monocytes # (Manual) Eosinophils # (Manual) D-Dimer ABG pH ABG pO2 ABG HCO3 ABG O2 Saturation ABG Base Excess -2.9 L ABG Hemoglobin 8.0 L Oxyhemoglobin Sodium Potassium Chloride Carbon Dioxide BUN Creatinine Glucose POC Glucose 127 H Lactic Acid Uric Acid Calcium Phosphorus Magnesium Ferritin ALT Lactate Dehydrogenase Total Creatine Kinase CK-MB (CK-2) Troponin T NT-Pro-B Natriuret Pep Total Protein Albumin Prealbumin Cholesterol LDL Cholesterol Direct HDL Cholesterol Vitamin B12 Folate Urine WBC (Auto) Urine Creatinine Crossmatch 03/14/22 03/14/22 03/14/22 04:54 16:15 22:59 WBC RBC Hgb Hct MCH RDW Plt Count Lymph % (Auto) Lymph # (Auto) Seg Neutrophils % Seg Neuts % (Manual) Lymphocytes % (Manual) Nucleated RBC % Seg Neutrophils # Seg Neutrophils # Man Lymphocytes # (Manual) Monocytes # (Manual) Eosinophils # (Manual) D-Dimer ABG pH ABG pO2 ABG HCO3 ABG O2 Saturation ABG Base Excess ABG Hemoglobin Oxyhemoglobin Sodium 129 L 128 L Potassium 3.5 L Chloride 97.1 L 97.0 L Carbon Dioxide BUN 24 H 31 H Creatinine 0.5 L Glucose 125 H 114 H POC Glucose 134 H Lactic Acid Uric Acid Calcium 7.0 L 7.0 L Phosphorus Magnesium Ferritin ALT Lactate Dehydrogenase Total Creatine Kinase CK-MB (CK-2) Troponin T NT-Pro-B Natriuret Pep Total Protein Albumin Prealbumin Cholesterol LDL Cholesterol Direct HDL Cholesterol Vitamin B12 Folate Urine WBC (Auto) Urine Creatinine Crossmatch 03/15/22 03/15/22 03/15/22 04:10 04:10 05:02 WBC 12.9 H RBC 2.55 L Hgb 7.1 L Hct 21.5 L MCH RDW 15.8 H Plt Count Lymph % (Auto) Lymph # (Auto) Seg Neutrophils % Seg Neuts % (Manual) 88.0 H Lymphocytes % (Manual) 5.0 L Nucleated RBC % Seg Neutrophils # Seg Neutrophils # Man 11.4 H Lymphocytes # (Manual) 0.6 L Monocytes # (Manual) Eosinophils # (Manual) 0.5 H D-Dimer ABG pH ABG pO2 ABG HCO3 ABG O2 Saturation ABG Base Excess ABG Hemoglobin Oxyhemoglobin Sodium 127 L Potassium Chloride 96.3 L Carbon Dioxide 21 L BUN 33 H Creatinine Glucose 126 H POC Glucose 116 H Lactic Acid Uric Acid Calcium 7.4 L Phosphorus 1.20 L Magnesium Ferritin ALT Lactate Dehydrogenase Total Creatine Kinase CK-MB (CK-2) Troponin T NT-Pro-B Natriuret Pep Total Protein 5.3 L Albumin 2.1 L Prealbumin Cholesterol LDL Cholesterol Direct HDL Cholesterol Vitamin B12 Folate Urine WBC (Auto) Urine Creatinine Crossmatch 03/15/22 03/15/22 03/15/22 05:55 09:42 11:34 WBC RBC Hgb Hct MCH RDW Plt Count Lymph % (Auto) Lymph # (Auto) Seg Neutrophils % Seg Neuts % (Manual) Lymphocytes % (Manual) Nucleated RBC % Seg Neutrophils # Seg Neutrophils # Man Lymphocytes # (Manual) Monocytes # (Manual) Eosinophils # (Manual) D-Dimer ABG pH ABG pO2 119.0 H ABG HCO3 ABG O2 Saturation ABG Base Excess -3.1 L ABG Hemoglobin 8.2 L Oxyhemoglobin Sodium Potassium Chloride Carbon Dioxide BUN Creatinine Glucose POC Glucose 125 H Lactic Acid Uric Acid Calcium Phosphorus Magnesium Ferritin ALT Lactate Dehydrogenase Total Creatine Kinase CK-MB (CK-2) Troponin T NT-Pro-B Natriuret Pep Total Protein Albumin Prealbumin Cholesterol LDL Cholesterol Direct HDL Cholesterol Vitamin B12 Folate Urine WBC (Auto) Urine Creatinine Crossmatch See Detail 03/15/22 03/16/22 03/16/22 20:55 04:50 04:50 WBC 16.9 H RBC 2.53 L Hgb 7.1 L Hct 21.5 L MCH RDW 16.0 H Plt Count Lymph % (Auto) Lymph # (Auto) Seg Neutrophils % Seg Neuts % (Manual) Lymphocytes % (Manual) Nucleated RBC % Seg Neutrophils # Seg Neutrophils # Man Lymphocytes # (Manual) Monocytes # (Manual) Eosinophils # (Manual) D-Dimer ABG pH 7.320 L ABG pO2 122.8 H ABG HCO3 ABG O2 Saturation ABG Base Excess -4.1 L ABG Hemoglobin 7.0 L Oxyhemoglobin Sodium 132 L Potassium Chloride Carbon Dioxide 20 L BUN 44 H Creatinine Glucose 123 H POC Glucose Lactic Acid Uric Acid Calcium 7.6 L Phosphorus Magnesium Ferritin ALT Lactate Dehydrogenase Total Creatine Kinase CK-MB (CK-2) Troponin T NT-Pro-B Natriuret Pep Total Protein Albumin Prealbumin Cholesterol LDL Cholesterol Direct HDL Cholesterol Vitamin B12 Folate Urine WBC (Auto) Urine Creatinine Crossmatch 03/16/22 03/16/22 03/16/22 05:42 11:32 23:05 WBC RBC Hgb Hct MCH RDW Plt Count Lymph % (Auto) Lymph # (Auto) Seg Neutrophils % Seg Neuts % (Manual) Lymphocytes % (Manual) Nucleated RBC % Seg Neutrophils # Seg Neutrophils # Man Lymphocytes # (Manual) Monocytes # (Manual) Eosinophils # (Manual) D-Dimer ABG pH ABG pO2 ABG HCO3 ABG O2 Saturation ABG Base Excess ABG Hemoglobin Oxyhemoglobin Sodium Potassium Chloride Carbon Dioxide BUN Creatinine Glucose POC Glucose 113 H 118 H 114 H Lactic Acid Uric Acid Calcium Phosphorus Magnesium Ferritin ALT Lactate Dehydrogenase Total Creatine Kinase CK-MB (CK-2) Troponin T NT-Pro-B Natriuret Pep Total Protein Albumin Prealbumin Cholesterol LDL Cholesterol Direct HDL Cholesterol Vitamin B12 Folate Urine WBC (Auto) Urine Creatinine Crossmatch 03/17/22 03/17/22 03/17/22 04:00 04:00 05:00 WBC 19.1 H RBC 2.44 L Hgb 6.6 L Hct 20.6 L MCH 27 L RDW 16.4 H Plt Count Lymph % (Auto) Lymph # (Auto) Seg Neutrophils % Seg Neuts % (Manual) 78.0 H Lymphocytes % (Manual) 2.0 L Nucleated RBC % Seg Neutrophils # Seg Neutrophils # Man 14.9 H Lymphocytes # (Manual) 0.4 L Monocytes # (Manual) 1.3 H Eosinophils # (Manual) 0.6 H D-Dimer ABG pH 7.334 L ABG pO2 132.4 H ABG HCO3 ABG O2 Saturation ABG Base Excess -2.7 L ABG Hemoglobin 9.1 L Oxyhemoglobin Sodium 134 L Potassium Chloride Carbon Dioxide BUN 55 H Creatinine Glucose 125 H POC Glucose Lactic Acid Uric Acid Calcium 8.1 L Phosphorus Magnesium Ferritin ALT Lactate Dehydrogenase Total Creatine Kinase CK-MB (CK-2) Troponin T NT-Pro-B Natriuret Pep Total Protein Albumin Prealbumin Cholesterol LDL Cholesterol Direct HDL Cholesterol Vitamin B12 Folate Urine WBC (Auto) Urine Creatinine Crossmatch 03/17/22 03/17/22 03/17/22 05:40 15:30 17:48 WBC RBC Hgb 8.2 L Hct 24.9 L MCH RDW Plt Count Lymph % (Auto) Lymph # (Auto) Seg Neutrophils % Seg Neuts % (Manual) Lymphocytes % (Manual) Nucleated RBC % Seg Neutrophils # Seg Neutrophils # Man Lymphocytes # (Manual) Monocytes # (Manual) Eosinophils # (Manual) D-Dimer ABG pH ABG pO2 ABG HCO3 ABG O2 Saturation ABG Base Excess ABG Hemoglobin Oxyhemoglobin Sodium Potassium Chloride Carbon Dioxide BUN Creatinine Glucose POC Glucose 115 H 117 H Lactic Acid Uric Acid Calcium Phosphorus Magnesium Ferritin ALT Lactate Dehydrogenase Total Creatine Kinase CK-MB (CK-2) Troponin T NT-Pro-B Natriuret Pep Total Protein Albumin Prealbumin Cholesterol LDL Cholesterol Direct HDL Cholesterol Vitamin B12 Folate Urine WBC (Auto) Urine Creatinine Crossmatch 03/17/22 03/18/22 03/18/22 23:54 05:04 05:20 WBC RBC Hgb Hct MCH RDW Plt Count Lymph % (Auto) Lymph # (Auto) Seg Neutrophils % Seg Neuts % (Manual) Lymphocytes % (Manual) Nucleated RBC % Seg Neutrophils # Seg Neutrophils # Man Lymphocytes # (Manual) Monocytes # (Manual) Eosinophils # (Manual) D-Dimer ABG pH 7.302 L ABG pO2 71.0 L ABG HCO3 ABG O2 Saturation 94.9 L ABG Base Excess -4.3 L ABG Hemoglobin 9.6 L Oxyhemoglobin 92.9 L Sodium 135 L Potassium Chloride Carbon Dioxide BUN 66 H Creatinine Glucose 122 H POC Glucose 114 H Lactic Acid Uric Acid Calcium 8.2 L Phosphorus Magnesium Ferritin ALT Lactate Dehydrogenase Total Creatine Kinase CK-MB (CK-2) Troponin T NT-Pro-B Natriuret Pep Total Protein 5.4 L Albumin 2.0 L Prealbumin Cholesterol LDL Cholesterol Direct HDL Cholesterol Vitamin B12 Folate Urine WBC (Auto) Urine Creatinine Crossmatch 03/18/22 03/18/22 03/18/22 05:20 06:44 12:04 WBC 23.9 H RBC 2.88 L Hgb 8.1 L Hct 25.1 L MCH RDW 16.0 H Plt Count Lymph % (Auto) Lymph # (Auto) Seg Neutrophils % Seg Neuts % (Manual) 89.0 H Lymphocytes % (Manual) 7.5 L Nucleated RBC % Seg Neutrophils # Seg Neutrophils # Man 21.3 H Lymphocytes # (Manual) Monocytes # (Manual) Eosinophils # (Manual) D-Dimer ABG pH ABG pO2 ABG HCO3 ABG O2 Saturation ABG Base Excess ABG Hemoglobin Oxyhemoglobin Sodium Potassium Chloride Carbon Dioxide BUN Creatinine Glucose POC Glucose 107 H 119 H Lactic Acid Uric Acid Calcium Phosphorus Magnesium Ferritin ALT Lactate Dehydrogenase Total Creatine Kinase CK-MB (CK-2) Troponin T NT-Pro-B Natriuret Pep Total Protein Albumin Prealbumin Cholesterol LDL Cholesterol Direct HDL Cholesterol Vitamin B12 Folate Urine WBC (Auto) Urine Creatinine Crossmatch 03/19/22 03/19/22 03/19/22 05:15 08:59 08:59 WBC 30.4 H RBC 2.78 L Hgb 7.7 L Hct 24.2 L MCH RDW 16.4 H Plt Count Lymph % (Auto) Lymph # (Auto) Seg Neutrophils % Seg Neuts % (Manual) Lymphocytes % (Manual) Nucleated RBC % Seg Neutrophils # Seg Neutrophils # Man Lymphocytes # (Manual) Monocytes # (Manual) Eosinophils # (Manual) D-Dimer ABG pH 7.341 L ABG pO2 78.1 L ABG HCO3 ABG O2 Saturation ABG Base Excess -4.5 L ABG Hemoglobin 9.5 L Oxyhemoglobin Sodium 132 L Potassium 5.5 H Chloride Carbon Dioxide 19 L BUN 84 H Creatinine Glucose 124 H POC Glucose Lactic Acid Uric Acid Calcium Phosphorus Magnesium Ferritin ALT Lactate Dehydrogenase Total Creatine Kinase CK-MB (CK-2) Troponin T NT-Pro-B Natriuret Pep Total Protein Albumin Prealbumin Cholesterol LDL Cholesterol Direct HDL Cholesterol Vitamin B12 Folate Urine WBC (Auto) Urine Creatinine Crossmatch 03/19/22 03/19/22 03/19/22 14:40 14:40 18:37 WBC RBC Hgb Hct MCH RDW Plt Count Lymph % (Auto) Lymph # (Auto) Seg Neutrophils % Seg Neuts % (Manual) Lymphocytes % (Manual) Nucleated RBC % Seg Neutrophils # Seg Neutrophils # Man Lymphocytes # (Manual) Monocytes # (Manual) Eosinophils # (Manual) D-Dimer ABG pH 7.337 L ABG pO2 41.2 L ABG HCO3 ABG O2 Saturation 74.8 L ABG Base Excess -4.5 L ABG Hemoglobin 7.9 L Oxyhemoglobin 72.9 L Sodium Potassium Chloride Carbon Dioxide BUN Creatinine Glucose POC Glucose 120 H Lactic Acid Uric Acid Calcium Phosphorus Magnesium Ferritin ALT Lactate Dehydrogenase Total Creatine Kinase CK-MB (CK-2) Troponin T NT-Pro-B Natriuret Pep Total Protein Albumin Prealbumin Cholesterol LDL Cholesterol Direct HDL Cholesterol Vitamin B12 Folate Urine WBC (Auto) Urine Creatinine 34.4 H Crossmatch 03/19/22 03/20/22 03/20/22 23:15 05:20 05:20 WBC 29.5 H RBC 2.76 L Hgb 7.6 L Hct 23.7 L MCH 27 L RDW 16.6 H Plt Count Lymph % (Auto) Lymph # (Auto) Seg Neutrophils % Seg Neuts % (Manual) Lymphocytes % (Manual) Nucleated RBC % Seg Neutrophils # Seg Neutrophils # Man Lymphocytes # (Manual) Monocytes # (Manual) Eosinophils # (Manual) D-Dimer ABG pH ABG pO2 ABG HCO3 ABG O2 Saturation ABG Base Excess ABG Hemoglobin Oxyhemoglobin Sodium Potassium Chloride Carbon Dioxide BUN 96 H Creatinine Glucose 141 H POC Glucose 125 H Lactic Acid Uric Acid Calcium Phosphorus Magnesium Ferritin ALT Lactate Dehydrogenase Total Creatine Kinase CK-MB (CK-2) Troponin T NT-Pro-B Natriuret Pep Total Protein Albumin Prealbumin Cholesterol LDL Cholesterol Direct HDL Cholesterol Vitamin B12 Folate Urine WBC (Auto) Urine Creatinine Crossmatch 03/20/22 03/20/22 03/21/22 06:09 10:05 04:00 WBC RBC Hgb Hct MCH RDW Plt Count Lymph % (Auto) Lymph # (Auto) Seg Neutrophils % Seg Neuts % (Manual) Lymphocytes % (Manual) Nucleated RBC % Seg Neutrophils # Seg Neutrophils # Man Lymphocytes # (Manual) Monocytes # (Manual) Eosinophils # (Manual) D-Dimer ABG pH 7.278 L ABG pO2 71.0 L ABG HCO3 ABG O2 Saturation 92.6 L ABG Base Excess ABG Hemoglobin 8.2 L Oxyhemoglobin 90.5 L Sodium 135 L Potassium 5.7 H D Chloride 97.4 L Carbon Dioxide 21 L BUN 104 H Creatinine 1.3 H Glucose 118 H POC Glucose 121 H Lactic Acid Uric Acid Calcium Phosphorus Magnesium Ferritin ALT Lactate Dehydrogenase Total Creatine Kinase CK-MB (CK-2) Troponin T NT-Pro-B Natriuret Pep Total Protein Albumin Prealbumin Cholesterol LDL Cholesterol Direct HDL Cholesterol Vitamin B12 Folate Urine WBC (Auto) Urine Creatinine Crossmatch 03/21/22 03/21/22 03/21/22 04:40 15:30 21:00 WBC 25.6 H RBC 2.61 L Hgb 7.3 L Hct 22.8 L MCH RDW 16.8 H Plt Count 462 H Lymph % (Auto) Lymph # (Auto) Seg Neutrophils % Seg Neuts % (Manual) 71.0 H Lymphocytes % (Manual) 2.0 L Nucleated RBC % 1.0 H Seg Neutrophils # Seg Neutrophils # Man 18.2 H Lymphocytes # (Manual) 0.5 L Monocytes # (Manual) 1.8 H Eosinophils # (Manual) 0.8 H D-Dimer ABG pH 7.197 L* 7.284 L ABG pO2 76.6 L 68.6 L ABG HCO3 ABG O2 Saturation 92.8 L ABG Base Excess -5.7 L -3.7 L ABG Hemoglobin 10.0 L 7.6 L Oxyhemoglobin 94.3 L 90.7 L Sodium Potassium Chloride Carbon Dioxide BUN Creatinine Glucose POC Glucose Lactic Acid Uric Acid Calcium Phosphorus Magnesium Ferritin ALT Lactate Dehydrogenase Total Creatine Kinase CK-MB (CK-2) Troponin T NT-Pro-B Natriuret Pep Total Protein Albumin Prealbumin Cholesterol LDL Cholesterol Direct HDL Cholesterol Vitamin B12 Folate Urine WBC (Auto) Urine Creatinine Crossmatch 03/22/22 03/22/22 04:10 04:10 WBC 32.9 H RBC 2.60 L Hgb 7.4 L Hct 22.3 L MCH RDW 16.8 H Plt Count 517 H Lymph % (Auto) Lymph # (Auto) Seg Neutrophils % Seg Neuts % (Manual) Lymphocytes % (Manual) Nucleated RBC % Seg Neutrophils # Seg Neutrophils # Man Lymphocytes # (Manual) Monocytes # (Manual) Eosinophils # (Manual) D-Dimer ABG pH ABG pO2 ABG HCO3 ABG O2 Saturation ABG Base Excess ABG Hemoglobin Oxyhemoglobin Sodium Potassium 5.4 H Chloride 97.2 L Carbon Dioxide 21 L BUN 116 H Creatinine 1.6 H Glucose 142 H POC Glucose Lactic Acid Uric Acid Calcium Phosphorus Magnesium Ferritin ALT Lactate Dehydrogenase Total Creatine Kinase CK-MB (CK-2) Troponin T NT-Pro-B Natriuret Pep Total Protein Albumin Prealbumin Cholesterol LDL Cholesterol Direct HDL Cholesterol Vitamin B12 Folate Urine WBC (Auto) Urine Creatinine Crossmatch Allied health notes reviewed: RT
[2022-03-22] MEDS: levETIRAcetam 500 MG/5 ML ORAL LIQD FEEDTUBE SCH ×2 (09:15→22:09)
[2022-03-22] MEDS: FAMOTIDINE 10 MG TAB FEEDTUBE SCH ×2 (09:15→22:09)
[2022-03-22] MEDS: HEPARIN/ 0.45% NACL DRIP 25,000 UNIT/500 ML BAG IV SCH (09:16)
[2022-03-22] MEDS: metroNIDAZOLE/NS 500 MG/100 ML 500 MG/100 ML BAG IV SCH ×2 (09:16→16:43)
--- NOTE | 2022-03-22 09:52 | Progress Note ---
Assessment and Plan 1. Acute kidney injury: Vasomotor TANIYA in the setting of shock. ATN. Patient has medina catheter. Monitor renal function. Creatinine level is increasing. UOP is low. Avoid nephrotoxic agents. Meds dosage based on GFR. 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 Currently patient is not a candidate for HD due to multipressor shock. 2. 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 Associated volume overload. Sodium level is better / fluctuates. 3. FEN: Hyeprkalemia, Kayaxalate, monitor. Volume overload, diuretics as BP allows. Anion-gap metabolic acdosis, 2/2 lactic acidosis & TANIYA, monitor. Replete lytes as needed. Monitor lytes and volume status. 4. Acute Hypoxemic Respiratory Failure / Multifocal Pneumonia / CAP: Chest X-ray was concerning for multifocal pneumonia. Eleavted D-dimer. Patient intubated on 03/10 due to tachypnea and worsening MS. 5. Hypotension / NSTEMI: Presented with hypotension. on Levophed, Vasopressin and Midodrine. Wean as tolerated. Followed Cards. 6. Sepsis: Likley 2/2 Multifocal Pneumonia/CAP. Covid negative. Abx. Monitor. 7. Acute Metabolic Encephalopathy: H/o Seizure Disorder. Now intubated on vent. Keppra. Seizure precautions. 8. MS with paraplegia: Bedbound status. Supportive care. Prognosis sis slim. D/w ICU team. Subjective: Patient was seen and examined at the bedside. Examination: General appearance: well-developed, appears stated age, no distress, intubated, on vent HEENT: ATNC, pupils equal, no icterus Neck: trachea midline Respiratory: decreased breath sounds bilaterally Cardiology: regular, S1S2, no murmur Gastrointestinal: soft, normoactive bowel sounds, not tender Integumentary: no obvious rash Neurologic: not responding Ext: 2+ LE, dependent edema and anasarca noted : medina catheter Subjective Date of service: 03/22/22 Principal diagnosis: AHRF; Multifocal Pneumonia; Septic shock; NSTEMI; AMS; Seizures Objective - Vital Signs Vital signs: Vital Signs - 12hr 03/21/22 03/21/22 03/21/22 22:01 22:15 22:30 Temperature Pulse Rate 94 H 95 H 94 H Pulse Rate [ From Monitor] Respiratory 28 H 28 H 28 H Rate Blood Pressure 88/60 88/57 88/58 O2 Sat by Pulse 93 Oximetry 03/21/22 03/21/22 03/21/22 22:45 23:01 23:15 Temperature Pulse Rate 92 H 93 H 94 H Pulse Rate [ From Monitor] Respiratory 28 H 28 H 29 H Rate Blood Pressure 89/58 87/59 87/59 O2 Sat by Pulse 97 96 Oximetry 03/21/22 03/21/22 03/21/22 23:26 23:31 23:45 Temperature Pulse Rate 93 H 93 H 94 H Pulse Rate [ From Monitor] Respiratory 28 H 28 H Rate Blood Pressure 91/58 97/52 97/52 O2 Sat by Pulse 96 94 97 Oximetry 03/22/22 03/22/22 03/22/22 00:00 00:15 00:31 Temperature 98.1 F Pulse Rate 92 H 93 H 93 H Pulse Rate [ 93 H From Monitor] Respiratory 28 H 28 H 28 H Rate Blood Pressure 95/61 95/61 90/59 O2 Sat by Pulse 91 97 Oximetry 03/22/22 03/22/22 03/22/22 00:45 01:00 01:15 Temperature Pulse Rate 93 H 92 H 93 H Pulse Rate [ From Monitor] Respiratory 28 H 28 H 28 H Rate Blood Pressure 90/59 88/60 96/58 O2 Sat by Pulse 96 94 96 Oximetry 03/22/22 03/22/22 03/22/22 01:30 01:45 02:00 Temperature Pulse Rate 90 92 H 92 H Pulse Rate [ From Monitor] Respiratory 28 H 28 H 27 H Rate Blood Pressure 90/59 90/58 98/60 O2 Sat by Pulse 96 Oximetry 03/22/22 03/22/22 03/22/22 02:15 02:30 02:45 Temperature Pulse Rate 92 H 92 H 91 H Pulse Rate [ From Monitor] Respiratory 28 H 28 H 28 H Rate Blood Pressure 93/62 97/65 92/63 O2 Sat by Pulse 96 Oximetry 03/22/22 03/22/22 03/22/22 03:01 03:15 03:31 Temperature Pulse Rate 89 88 91 H Pulse Rate [ From Monitor] Respiratory 28 H 28 H 28 H Rate Blood Pressure 99/67 96/62 92/65 O2 Sat by Pulse 96 95 Oximetry 03/22/22 03/22/22 03/22/22 03:45 04:00 04:08 Temperature 99.1 F Pulse Rate 90 89 89 Pulse Rate [ 89 From Monitor] Respiratory 28 H 28 H Rate Blood Pressure 92/65 87/58 99/67 O2 Sat by Pulse 97 96 96 Oximetry 03/22/22 03/22/22 03/22/22 04:15 04:30 04:45 Temperature Pulse Rate 90 91 H 91 H Pulse Rate [ From Monitor] Respiratory 28 H 28 H 28 H Rate Blood Pressure 92/65 97/65 105/65 O2 Sat by Pulse 96 98 Oximetry 03/22/22 03/22/22 03/22/22 05:00 05:15 05:30 Temperature Pulse Rate 91 H 89 90 Pulse Rate [ From Monitor] Respiratory 28 H 29 H 28 H Rate Blood Pressure 95/64 93/62 101/65 O2 Sat by Pulse 96 Oximetry 03/22/22 03/22/22 03/22/22 05:45 06:01 06:15 Temperature Pulse Rate 89 96 H 88 Pulse Rate [ From Monitor] Respiratory 28 H 28 H 28 H Rate Blood Pressure 95/60 99/69 96/65 O2 Sat by Pulse 99 96 94 Oximetry 03/22/22 03/22/22 03/22/22 06:31 06:45 06:57 Temperature 99.3 F Pulse Rate 88 87 Pulse Rate [ From Monitor] Respiratory 28 H 28 H Rate Blood Pressure 97/65 99/63 O2 Sat by Pulse 100 97 Oximetry 03/22/22 03/22/22 03/22/22 07:00 07:15 07:30 Temperature Pulse Rate 90 89 88 Pulse Rate [ From Monitor] Respiratory 28 H 28 H 29 H Rate Blood Pressure 100/64 97/63 97/62 O2 Sat by Pulse 96 Oximetry 03/22/22 03/22/22 03/22/22 07:45 08:00 08:08 Temperature Pulse Rate 89 86 88 Pulse Rate [ From Monitor] Respiratory 28 H 28 H Rate Blood Pressure 96/66 93/61 93/61 O2 Sat by Pulse 96 98 Oximetry 03/22/22 03/22/22 03/22/22 08:10 08:11 08:15 Temperature Pulse Rate 88 95 H Pulse Rate [ 88 From Monitor] Respiratory 28 H 28 H Rate Blood Pressure 101/71 O2 Sat by Pulse 96 Oximetry 07/07/22 07/07/22 07/07/22 08:30 08:45 09:00 Temperature Pulse Rate 89 88 88 Pulse Rate [ From Monitor] Respiratory 27 H 28 H 28 H Rate Blood Pressure 109/69 100/65 95/69 O2 Sat by Pulse 92 Oximetry 03/22/22 03/22/22 03/22/22 09:15 09:30 09:45 Temperature Pulse Rate 91 H 87 90 Pulse Rate [ From Monitor] Respiratory 28 H 28 H 28 H Rate Blood Pressure 95/69 89/59 90/63 O2 Sat by Pulse 96 93 94 Oximetry - Lab 03/22/22 04:10 03/22/22 04:10 Most recent lab results ABG pH 7.284 pH Units (7.350-7.450) L 03/21/22 21:00 ABG pCO2 49.1 mm Hg 03/21/22 21:00 ABG pO2 68.6 mm Hg (80.0-90.0) L 03/21/22 21:00 ABG HCO3 22.8 mmol/L (20.0-26.0) 03/21/22 21:00 ABG O2 Saturation 92.8 % (95.0-99.0) L 03/21/22 21:00 Calcium 8.5 mg/dL (8.4-10.2) 03/22/22 04:10 Phosphorus 3.70 mg/dL (2.5-4.5) 03/18/22 05:20 Magnesium 2.00 mg/dL (1.7-2.3) 03/18/22 05:20 Urine Creatinine 34.4 mg/dL (0.1-20.0) H 03/19/22 14:40 Urine Sodium 18 mmol/L 03/19/22 14:40 Medications & Allergies - Medications Allergies/Adverse Reactions: Allergies Penicillins Allergy (Mild, Verified 01/11/19 12:20) Rash . Home Medications: Home Medications Medication Instructions Recorded Confirmed Last Taken Type Ciprofloxacin HCl [Ciprofloxacin 500 mg PO Q12H #14 tab 01/11/19 Unknown Rx TAB] levETIRAcetam [Keppra TAB] 500 mg PO BID #60 tablet 01/11/19 Unknown Rx Active Medications: Generic Name Dose Route Start Last Admin Trade Name Freq PRN Reason Stop Dose Admin Acetaminophen 650 mg 03/13/22 05:50 03/19/22 18:38 Acetaminophen 325 Mg/10.15 Ml Oral Liqd Unit Dose FEEDTUBE 650 mg Q6H PRN Administration Non Cardiac Pain or Temp>100.5 Bisacodyl 10 mg 03/15/22 10:00 Bisacodyl 5 Mg Tab PO QDAY PRN Constipation Famotidine 10 mg 03/22/22 10:00 03/22/22 09:15 Famotidine 10 Mg Tab FEEDTUBE 10 mg BID SHAHBAZ Administration Fentanyl 50 mcg 03/10/22 10:58 03/14/22 20:48 Fentanyl 100 Mcg/2 Ml Inj IV 50 mcg Q10MIN PRN Administration ANALGESIA Hydrophilic Ointment 1 applic 03/10/22 11:03 Lip Therapy Vaseline TP Q2HR PRN Dry Lips Fentanyl Citrate 2,000 mcg in 100 mls @ 4.16 mls/hr 03/10/22 11:00 03/22/22 09:18 Fentanyl Drip Premix IV 4 mcg/kg/hr TITR SHAHBAZ 16.64 mls/hr Administration Protocol 1 MCG/KG/HR NORepinephrine/NS 8 MG-250 ML 8 mg in 250 mls @ 3.75 mls/hr 03/10/22 11:00 03/21/22 21:35 Norepinephrine/Ns 8 Mg-250 Ml (Double Conc) IV 10 mcg/min TITRATE SHAHBAZ 18.75 mls/hr Administration Protocol 2 MCG/MIN Vasopressin 20 unit/ Sodium 101 mls @ 9.09 mls/hr 03/21/22 15:00 03/22/22 00:03 Chloride IV 0.03 units/min TITR SHAHBAZ 9.09 mls/hr Administration Protocol 0.03 UNITS/MIN Levofloxacin/Dextrose 750 mg in 150 mls @ 100 mls/hr 03/23/22 12:00 Levaquin 750mg/150ml IV 03/27/22 13:29 Q48H SHAHBAZ Protocol Heparin Sodium/Sodium Chloride 25,000 unit in 500 mls @ 24 mls/hr 03/22/22 09:00 03/22/22 09:16 Heparin/ 0.45% Nacl-25,000 Unit/500 Ml IV 1,200 units/hr TITR SHAHBAZ 24 mls/hr Administration Protocol 1,200 UNITS/HR Metronidazole 500 mg in 100 mls @ 100 mls/hr 03/22/22 09:00 03/22/22 09:16 Flagyl 500 Mg/100 Ml IV 100 mls/hr Q8H SHAHBAZ Administration Protocol Levetiracetam 500 mg 03/12/22 10:00 03/22/22 09:15 Levetiracetam 500 Mg/5 Ml Oral Liqd FEEDTUBE 500 mg BID SHAHBAZ Administration Magnesium Hydroxide 30 ml 03/10/22 02:56 Magnesium Hydroxide (Mom) Oral Liqd Udc PO Q4H PRN Constipation Midodrine 15 mg 03/21/22 16:00 03/22/22 07:52 Midodrine 5 Mg Tab PO 15 mg TID@0800,1200,1600 SHAHBAZ Administration Multi-Ingred Cream/Lotion/Oil/Oint 1 applic 03/10/22 11:03 Mineral Oil/Petrolatum, White Ophth Oint 3.5 Gm OU Q4HR PRN Dry Eye(s) Ondansetron HCl 4 mg 03/10/22 02:56 Ondansetron 4 Mg/2 Ml Inj IV Q8H PRN Nausea And Vomiting Scopolamine 1 each 03/21/22 10:00 03/21/22 10:28 Scopolamine Transdermal Patch 72 Hr TD 1 each Q3D SHAHBAZ Administration Sodium Chloride 10 ml 03/10/22 10:00 03/21/22 21:22 Sodium Chloride 0.9% 10 Ml Flush Syringe IV 10 ml BID SHAHBAZ Administration Sodium Chloride 10 ml 03/10/22 02:56 Sodium Chloride 0.9% 10 Ml Flush Syringe IV PRN PRN LINE FLUSH Sodium Polystyrene Sulfonate 30 gm 03/22/22 08:00 03/22/22 07:53 Sodium Polystyrene 15 Gm/60 Ml Oral Liqd PO 03/22/22 12:00 30 gm ONCE@0800 SHAHBAZ Administration Vancomycin HCl 500 mg 03/22/22 12:00 Vancomycin 250 Mg/10 Ml Oral Liqd PO Q6HR SHAHBAZ Protocol
--- NOTE | 2022-03-22 10:31 | Progress Note ---
<KITTY MICHELLE - Last Filed: 03/22/22 17:07> Assessment and Plan Assessment and plan: This is a 61-year-old female with known past medical history of Multiple Sclerosis and seizure disorder admitted for sepsis, Hyponatremia, and acute hypoxic respiratory failure requiring ventilatory support Hospital Course to Date: 03/10: S/p intubation this am due to tachypnea and worsen mental status. Current sedated and stable on the vent. Patient is now on low dose Levophed gtt due to hypotension. Presented with a Na level of 119, on continuous NS at 125ml, repeat BMP pending. Continue IVF hydration and serial Na Q6hrs. Nephrology is also following. Continue empiric IV Abx for CAP, COVID PCR pending, ID consult pending. D-Dimer also elevated, BLE doppler ordered, therapeutic Lovenox initiated. D/W CCM patient is too unstable for transport at this time, possible CTA chest in the am or once patient is more stable. Cardiology was also consulted for elevated troponin X2, EKG noted with no significant ST changes, 2D echo pending. Resume home AEDs, continue seizure precautions. Monitor and repla ce electrolytes as needed 03/11: Intubated and low dose fentanyl gtt. Open eyes spontaneously but does not track, not following commands. NA level 132 this am, Nabcarb gtt initiated per Nephro. CT head/brain w/o con ordered to r/o intracranial abnormality. Wean off sedation to better assess mental status. Remains on Levophed gtt, afebrile, but with leukocytosis this am. This am CXR and ABG noted, with significant improvement. D/w CCM, PE less likely will hold off on CTA chest for now. Lovenox switched to Qday. Continue empiric IV Abx, ID consult pending. 03/12: Discontinue bicarb gtt, replete phos and potassium, added miralax. Remain on levo and fent gtt 03/13: MRI brain/C-spine completed, EEG completed. Hyponatremia improved, patient remains on Levophed. Had a temperature of 101.3 remains on cefepime. Will defer to ID for abx. Will reculture on next temperature spike. 03/14: Overnight patient had hypoxia issues and FiO2 was increased to 100%, received lasix with repeat dose in AM. Hypotension and increase in levophed. Replete K. 03/15: hypoxia overnight and currently on 100%. RN attempted to lay flat and patient desatted to 88%. Will attempt again later today. Given lasix again. Hopeful to be able to have MRI today. Type and screen today for downtrending h/h, Wean FiO2 as tolerated, repelted phos with sodium phos. 03/16: hypoxic, fio2: 80%, desats on positional movements. Remains on levophed gtt, attempting to wean off. Remains too unstable for MRI brain. May benefit f rom steroids if altered mentation believed to be from MS flare. 03/17: Hypoxic overnight. FIO2 increased to 95%. Continue icu level supportive care with vent, levophed Gtt, merrem. Hgb 6.6 this AM, ordered 1 unit prbc. 03/18: WBC uptrending, persisting fevers. will re-culture with urine cx, sputum cx and bcx. Overall poor prognosis. Will attempt GOK discussion with family. 03/19: With persistent episodes of hypoxia overnight and this am. On 65% Fio2 and peep of 14 this am. Fevers improved, but leukocytosis worsen this am. Repeat cultures pending, continue current IV Abx per ID. Patient remains on Levophed gtt. X1 dose of kayexalate this am for hyperkalemia, worsening azotemia also noted, Nephrology is also following. Overall poor prognosis, possible GOC discussion with patient's son sometimes this week. 03/20: Up to 80% Fio2 and peep of 14 this am, still with periods of hypoxia with mild stimuli/movement. Severe generalized edema today with worsening CXR. Azotemia worsen s/p bcarb gtt. D/w Nephro, X1 dose of IV lasix and 25% Albumin given and Midodrine TID added. Overal poor prognosis. Possible GOC discussion with patient's son sometimes this week. 03/21: Mentation unchanged, remains on high vent settings. Patient did not respond to IV lasix yesterday, only 415ml UOP in the last 24hrs. Renal function worsen this am with hyperkalemia, X1 dose of kayexalate ordered. Nephrology is also following. Continue to monitor renal function and electrolytes. Possible phone conference today with son by the attending. Very poor prognosis. 03/22: Remains on high vent setting, respiratory acidosis noted from recent ABG. Vent settings adjusted by CCM. Repeat ABG pending. With worsening renal function this am, additional Kayexalate given. Sudheer in WBCs this am despite IV Abx, now on 2 pressors, recent cultures with no growth to date. Flagyl and PO Vanco initiated empirically, C.Diff PCR pending. ID is also following. Heparin gtt also initiated per CCM, c/f for possible pulmonary shunting. Thorough discussion with patient's son and the attending yesterday in regards to patient's condition , overall poor prognosis, and goal of care. Patient's son wants all aggressive treatment and measures including trach and PEG at this time. Patient remains a FULL code status. Assessment and Plan #Acute Hypoxemic Respiratory Failure #ARDS #Multifocal Pneumonia/CAP #C/f Pulmonary Shunting - Brought in from home by EMS due to SOB and difficulty breathing - SPO2 was in the 50s on RA, placed on CPAP. Then Bipap in the ED - Chest x-ray was concerning for multifocal pneumonia. - Patient intubated on 03/10 due to tachypnea and worsen mental - Now in ARDS, frequent desaturations and hypoxia overnight and this am - Vent setting: PRVC-80%,14,14, 400 - This am ABG noted - X1 dose of Iv lasix with 25% Albumin administered - CCM consulted, appreciate recommendations - C/f pulmo shunting, Heparin gtt initiated - Continue empiric IV Abx - VAP bundle addressed - Aspiration precaution HOB above 30 - Daily SBT and SAT trials as tolerated - Daily ABG and CXR - Continue SPO2 monitoring for SPO2 goal above 92% #Hypotension 2/2 #Septic Shock #NSTEMI/Elevated Troponin #Elevated BNP - Presented with hypotension now on low dose pressors-Levophed - Positive troponin X2, EKG noted with no significant ST changed - BNP 26017 on admit - Now on 2 pressors, Levo and Vaso - Midodrine added TID - 2D Echo LVEF 50%, no pulmonary HTN. See report for details - With generalized pitting edema, s/p IV lasix X3days - X1 dose of IV lasix with 25% Albumin given - Cardiology consulted, appreciated recommendations - Continue blood pressure monitor per protocol - Titrate pressor to maintain MAP above 65 - VTE phroph-Heparin gtt per protocol #Acute Kidney Injury(TANIYA) most likely ATN #Azotemia #Severe Hyponatremia- improved #Hypokalemia-resolved - Presented with a Na level of 119, Probably due to dehydration - Renal function continue to worsen, most likely due to hypoperfusion/hypotension - S/p IVF hydrationa and Bicarb gtt - S/p X3 dose of IV lasix, additional Lasix given yesterday- Unresponsive - Now oliguric - Nephrology consulted, appreciate recommendations - Patient is too unstable for iHD at this time due to high pressor requirements - Strict intake and output - Avoid nephrotoxic medications - Monitor and replace electrolytes as needed #Septic Shock #Multifocal Pneumonia/CAP #Leukocytosis #Diarrhea #Lactic Acidosis-resolved - Brought in from home by EMS due to SOB and difficulty breathing, Hypotensive, with elevated lactic acid, WBCs wnr - Chest x-ray was concerning for multifocal pneumonia - COVID PCR negative - UA with elevated Wbcs - urine and blood cultures with NGTD - CRP unremarkable, procal noted - Repeat Cultures with NGTD - ID consulted, appreciate recommendations - Worsening leukocytosis this am, now on 2 pressors - With frequent loose stools, however, patient did received X2 days of kayexalate for hyperkalemia - Completed Meropenem course, remains on Levaquin per ID - PO Vanco and flagyl initiated, C.Diff PCR pending - F/U on cultures - Continue to CBC #Acute Metabolic Encephalopathy #H/o Multiple Sclerosis and Seizure Disorder - Intubated and sedated, on fentanyl gtt - CT head shows vascular angioplasty without clear evidence of acute intracranial hemorrhage - MRI brain with and without contrast and MRI C-spine with and without contrast pending, patient is too unstable for transportation - EEG considered abnormal and is compatible with diffuse encephalopathy of perhaps significant brain sedation or neuro active medication or daily combination of both. Absence of epileptiform abnormality but would not rule out possibility of epilepsy - UDS (+) for opiates - Resumed home Keppra - Neurology consulted, appreciate recommendations - Avoid benzodiazepine to reduce the possibility of delirium - Titrate sedation for RASS goal 0 to -1 - PRN Analgesia for CPOT greater than 3 - Maintenance of sleep-wake cycle - Seizure precaution #Elevated D-Dimer - COVID PCR negative - BLE Doppler negative DVT - on heparin gtt #Moderate Protein Calorie Malnutrition - DHT inserted - Initiated enteral nutrition - Nutrition consulted #GI/DVT Prophylaxis - PPI- Pepcid - Lovenox SubQ - SCDs to bilateral lower extremities while in bed #Advance Care Planning - Disease education data, care plan, diagnoses, and prognosis discussed with patient's son Homar Bailey #[phone]. All questions and concerns were addressed at this time. Patient's son acknowledged understanding and agreement with current care plan. Patient is a FULL code. - 03/21- Thorough discussion with patient's son and the attending yesterday in regards to patient's condition, overall poor prognosis, and goal of care. Patient's son wants all aggressive treatment and measures including trach and PEG at this time. Patient remains a FULL code status. The high probability of a clinically significant, sudden or life threatening deterioration of the [multiple] system(s) required my full and direct attention, intervention and personal management. The aggregate critical care time was [60] minutes. This time is in addition to time spent performing reported procedures but includes the following: [x] Data Review and interpretation [x] Patient assessment and monitoring of vital signs [x] Documentation [x] Medication orders and management Disposition Plan: ICU Total Time Spent with Patient (Minutes): 60 History Interval history: Patient seen and examined at the bedside. Intubated and sedated. Remain on high vent setting, now on 2 pressors. Low urine output overnight and this am. Now on heparin gtt per [facility]. Patient is also with significant diarrhea, although she received kayexalate for 2 days due to hyperkalemia. C.diff PCR pending. Otherwise HARINI overnight. Hospitalist Physical - Constitutional Vitals: Temp Pulse Resp BP Pulse Ox 99.3 F 90 28 H 90/63 94 03/22/22 06:57 03/22/22 09:45 03/22/22 09:45 03/22/22 09:45 03/22/22 09:45 General appearance: Present: no acute distress, other (Intubated and Sedated) - EENT Eyes: Present: PERRL - Respiratory Respiratory effort: normal Respiratory: bilateral: rhonchi, wheezing - Cardiovascular Rhythm: regular Heart Sounds: Present: S1 & S2 - Extremities Extremities: no ischemia, pulses intact, pulses symmetrical Extremity abnormal: edema - Peripheral Assessment Generalized Edema Type: Pitting Edema Degree: 4+ Capillary Refill: < 3 seconds Skin Temperature: Warm Peripheral Pulses: within normal limits - Abdominal General gastrointestinal: soft, non-distended, normal bowel sounds - Integumentary Integumentary: Present: warm, dry - Psychiatric Psychiatric: other (Intubated and Sedated) - Neurologic Neurologic: other (Intubated and Sedated) - Allied Health Allied health notes reviewed: nursing, case management HEART Score - HEART Score Troponin: Troponin T 0.032 ng/mL (0.00-0.029) H D 03/10/22 12:24 Results - Labs CBC & Chem 7: 03/22/22 04:10 03/22/22 04:10 Labs: Laboratory Last Values WBC 32.9 K/mm3 (4.5-11.0) H 03/22/22 04:10 RBC 2.60 M/mm3 (3.65-5.03) L 03/22/22 04:10 Hgb 7.4 gm/dl (10.1-14.3) L 03/22/22 04:10 Hct 22.3 % (30.3-42.9) L 03/22/22 04:10 MCV 86 fl (79-97) 03/22/22 04:10 MCH 29 pg (28-32) 03/22/22 04:10 MCHC 33 % (30-34) 03/22/22 04:10 RDW 16.8 % (13.2-15.2) H 03/22/22 04:10 Plt Count 517 K/mm3 (140-440) H 03/22/22 04:10 Lymph % (Auto) 8.9 % (13.4-35.0) L 03/11/22 05:00 [place] % (Auto) 4.2 % (0.0-7.3) 03/11/22 05:00 Eos % (Auto) 0.1 % (0.0-4.3) 03/11/22 05:00 Baso % (Auto) 0.2 % (0.0-1.8) 03/11/22 05:00 Lymph # (Auto) 1.2 K/mm3 (1.2-5.4) 03/11/22 05:00 [place] # (Auto) 0.6 K/mm3 (0.0-0.8) 03/11/22 05:00 Eos # (Auto) 0.0 K/mm3 (0.0-0.4) 03/11/22 05:00 Baso # (Auto) 0.0 K/mm3 (0.0-0.1) 03/11/22 05:00 Add Manual Diff Complete 03/21/22 04:40 Total Counted 100 03/21/22 04:40 Seg Neutrophils % 86.6 % (40.0-70.0) H 03/11/22 05:00 Seg Neuts % (Manual) 71.0 % (40.0-70.0) H 03/21/22 04:40 Band Neutrophils % 12.0 % 03/21/22 04:40 Lymphocytes % (Manual) 2.0 % (13.4-35.0) L 03/21/22 04:40 Reactive Lymphs % (Man) 0 % 03/21/22 04:40 Monocytes % (Manual) 7.0 % (0.0-7.3) 03/21/22 04:40 Eosinophils % (Manual) 3.0 % (0.0-4.3) 03/21/22 04:40 Basophils % (Manual) 0 % (0.0-1.8) 03/21/22 04:40 Metamyelocytes % 3.0 % 03/21/22 04:40 Myelocytes % 0 % 03/21/22 04:40 Promyelocytes % 2.0 % 03/21/22 04:40 Blast Cells % 0 % 03/21/22 04:40 Nucleated RBC % 1.0 % (0.0-0.9) H 03/21/22 04:40 Seg Neutrophils # 11.8 K/mm3 (1.8-7.7) H 03/11/22 05:00 Seg Neutrophils # Man 18.2 K/mm3 (1.8-7.7) H 03/21/22 04:40 Band Neutrophils # 3.1 K/mm3 03/21/22 04:40 Lymphocytes # (Manual) 0.5 K/mm3 (1.2-5.4) L 03/21/22 04:40 Abs React Lymphs (Man) 0.0 K/mm3 03/21/22 04:40 Monocytes # (Manual) 1.8 K/mm3 (0.0-0.8) H 03/21/22 04:40 Eosinophils # (Manual) 0.8 K/mm3 (0.0-0.4) H 03/21/22 04:40 Basophils # (Manual) 0.0 K/mm3 (0.0-0.1) 03/21/22 04:40 Metamyelocytes # 0.8 K/mm3 03/21/22 04:40 Myelocytes # 0.0 K/mm3 03/21/22 04:40 Promyelocytes # 0.5 K/mm3 03/21/22 04:40 Blast Cells # 0.0 K/mm3 03/21/22 04:40 WBC Morphology Not Reportable 03/21/22 04:40 Hypersegmented Neuts Not Reportable 03/21/22 04:40 Hyposegmented Neuts Not Reportable 03/21/22 04:40 Hypogranular Neuts Not Reportable 03/21/22 04:40 Smudge Cells Not Reportable 03/21/22 04:40 Toxic Granulation Not Reportable 03/21/22 04:40 Toxic Vacuolation Not Reportable 03/21/22 04:40 Dohle Bodies Not Reportable 03/21/22 04:40 Pelger-Huet Anomaly Not Reportable 03/21/22 04:40 Luis Rods Not Reportable 03/21/22 04:40 Platelet Estimate Consistent w auto 03/21/22 04:40 Clumped Platelets Not Reportable 03/21/22 04:40 Plt Clumps, EDTA Not Reportable 03/21/22 04:40 Large Platelets Few 03/21/22 04:40 Giant Platelets Not Reportable 03/21/22 04:40 Platelet Satelliting Not Reportable 03/21/22 04:40 Plt Morphology Comment Not Reportable 03/21/22 04:40 RBC Morphology Not Reportable 03/21/22 04:40 Dimorphic RBCs Not Reportable 03/21/22 04:40 Polychromasia Not Reportable 03/21/22 04:40 Hypochromasia 3+ 03/21/22 04:40 Poikilocytosis Not Reportable 03/21/22 04:40 Anisocytosis 1+ 03/21/22 04:40 Microcytosis 1+ 03/21/22 04:40 Macrocytosis Not Reportable 03/21/22 04:40 Spherocytes Not Reportable 03/21/22 04:40 Pappenheimer Bodies Not Reportable 03/21/22 04:40 Sickle Cells Not Reportable 03/21/22 04:40 Target Cells Rare 03/21/22 04:40 Tear Drop Cells Few 03/21/22 04:40 Ovalocytes 1+ 03/21/22 04:40 Helmet Cells Not Reportable 03/21/22 04:40 [place] Bodies Not Reportable 03/21/22 04:40 [place] Rings Not Reportable 03/21/22 04:40 [place] Cells Not Reportable 03/21/22 04:40 Bite Cells Not Reportable 03/21/22 04:40 Crenated Cell Not Reportable 03/21/22 04:40 Elliptocytes Few 03/21/22 04:40 Acanthocytes (Spur) Not Reportable 03/21/22 04:40 Rouleaux Not Reportable 03/21/22 04:40 Hemoglobin C Crystals Not Reportable 03/21/22 04:40 Schistocytes Few 03/21/22 04:40 Malaria parasites Not Reportable 03/21/22 04:40 Tani Bodies Not Reportable 03/21/22 04:40 Hem Pathologist Commnt No 03/21/22 04:40 PT 14.9 Sec. (12.2-14.9) 03/10/22 01:25 INR 1.03 (0.87-1.13) 03/10/22 01:25 D-Dimer 787.78 ng/mlDDU (0-234) H 03/10/22 05:45 ABG pH 7.284 pH Units (7.350-7.450) L 03/21/22 21:00 ABG pCO2 49.1 mm Hg 03/21/22 21:00 ABG pO2 68.6 mm Hg (80.0-90.0) L 03/21/22 21:00 ABG HCO3 22.8 mmol/L (20.0-26.0) 03/21/22 21:00 ABG O2 Saturation 92.8 % (95.0-99.0) L 03/21/22 21:00 ABG O2 Content 9.7 (0.0-44) 03/21/22 21:00 ABG Base Excess -3.7 mmol/L (-2.0-3.0) L 03/21/22 21:00 ABG Hemoglobin 7.6 gm/dl (12.0-16.0) L 03/21/22 21:00 ABG Carboxyhemoglobin 1.9 % (0.0-5.0) 03/21/22 21:00 ABG Methemoglobin 0.4 % (0.0-1.5) 03/21/22 21:00 Oxyhemoglobin 90.7 % (95.0-99.0) L 03/21/22 21:00 FiO2 80 % 03/21/22 21:00 Sodium 137 mmol/L (137-145) 03/22/22 04:10 Potassium 5.4 mmol/L (3.6-5.0) H 03/22/22 04:10 Chloride 97.2 mmol/L (98-107) L 03/22/22 04:10 Carbon Dioxide 21 mmol/L (22-30) L 03/22/22 04:10 Anion Gap 24 mmol/L 03/22/22 04:10 BUN 116 mg/dL (7-17) H 03/22/22 04:10 Creatinine 1.6 mg/dL (0.6-1.2) H 03/22/22 04:10 Estimated GFR 33 ml/min 03/22/22 04:10 BUN/Creatinine Ratio 73 % 03/22/22 04:10 Glucose 142 mg/dL (65-100) H 03/22/22 04:10 POC Glucose 95 mg/dL (70-105) 03/21/22 11:58 Osmolality 285 Mosm/kg 03/10/22 12:24 Lactic Acid 0.90 mmol/L (0.7-2.0) 03/18/22 05:20 Uric Acid 1.6 mg/dL (3.5-7.6) L 03/10/22 13:15 Calcium 8.5 mg/dL (8.4-10.2) 03/22/22 04:10 Phosphorus 3.70 mg/dL (2.5-4.5) 03/18/22 05:20 Magnesium 2.00 mg/dL (1.7-2.3) 03/18/22 05:20 Ferritin 219.2 ng/mL (10.0-200.0) H 03/10/22 05:45 Total Bilirubin 0.30 mg/dL (0.1-1.2) 03/18/22 05:20 AST 39 units/L (5-40) 03/18/22 05:20 ALT 14 units/L (7-56) 03/18/22 05:20 Alkaline Phosphatase 119 units/L (35-129) 03/18/22 05:20 Lactate Dehydrogenase 210 units/L (91-180) H 03/10/22 05:45 Total Creatine Kinase 901 units/L (30-135) H 03/10/22 12:24 CK-MB (CK-2) 15.3 ng/mL (0.0-4.0) H 03/10/22 12:24 CK-MB (CK-2) Rel Index 1.6 (0-4) 03/10/22 12:24 Troponin T 0.032 ng/mL (0.00-0.029) H D 03/10/22 12:24 C-Reactive Protein < 0.03 mg/dL (0.00-1.30) 03/10/22 05:45 NT-Pro-B Natriuret Pep 58919 pg/mL (0-900) H 03/10/22 01:25 Total Protein 5.4 g/dL (6.3-8.2) L 03/18/22 05:20 Albumin 2.0 g/dL (3.9-5) L 03/18/22 05:20 Albumin/Globulin Ratio 0.6 % 03/18/22 05:20 Prealbumin 0.044 g/L (0.200-0.400) L 03/12/22 18:40 Triglycerides 47 mg/dL (2-149) 03/10/22 01:25 Cholesterol 259 mg/dL (50-199) H 03/10/22 01:25 LDL Cholesterol Direct 187 mg/dL (50-130) H 03/10/22 01:25 HDL Cholesterol 63 mg/dL (40-59) H 03/10/22 01:25 Cholesterol/HDL Ratio 4.11 % 03/10/22 01:25 Lipase 15 units/L (13-60) 03/10/22 01:25 Vitamin B1 28 nmol/L (8-30) 03/13/22 08:00 Vitamin B12 1021 pg/mL (211-911) H 03/12/22 18:40 Folate 2.15 ng/mL (7.3-26.0) L 03/12/22 18:40 Procalcitonin 3.92 ng/mL (<0.15) 03/10/22 05:45 TSH 1.290 mlU/mL (0.270-4.200) 03/12/22 18:40 Urine Color Yellow (Yellow) 03/10/22 18:20 Urine Turbidity Clear (Clear) 03/10/22 18:20 Urine pH 6.0 (5.0-7.0) 03/10/22 18:20 Ur Specific [place] 1.010 (1.003-1.030) 03/10/22 18:20 Urine Protein <15 mg/dl mg/dL (Negative) 03/10/22 18:20 Urine Glucose (UA) Neg mg/dL (Negative) 03/10/22 18:20 Urine Ketones Tr mg/dL (Negative) 03/10/22 18:20 Urine Blood Sm (Negative) 03/10/22 18:20 Urine Nitrite Neg (Negative) 03/10/22 18:20 Urine Bilirubin Neg (Negative) 03/10/22 18:20 Urine Urobilinogen < 2.0 mg/dL (<2.0) 03/10/22 18:20 Ur Leukocyte Esterase Lg (Negative) 03/10/22 18:20 Urine WBC (Auto) 105.0 /HPF (0.0-6.0) H 03/10/22 18:20 Urine RBC (Auto) 2.0 /HPF (0.0-6.0) 03/10/22 18:20 U Epithel Cells (Auto) < 1.0 /HPF (0-13.0) 03/10/22 18:20 Urine Bacteria (Auto) 1+ /HPF (Negative) 03/10/22 18:20 Urine Osmolality 368 Mosm/kg 03/10/22 18:20 Urine Creatinine 34.4 mg/dL (0.1-20.0) H 03/19/22 14:40 Urine Sodium 18 mmol/L 03/19/22 14:40 Urine Opiates Screen Presumptive positive 03/10/22 18:20 Urine Methadone Screen Presumptive negative 03/10/22 18:20 Ur Barbiturates Screen Presumptive negative 03/10/22 18:20 Ur Phencyclidine Scrn Presumptive negative 03/10/22 18:20 Ur Amphetamines Screen Presumptive negative 03/10/22 18:20 U Benzodiazepines Scrn Presumptive negative 03/10/22 18:20 Urine Cocaine Screen Presumptive negative 03/10/22 18:20 U Marijuana (THC) Screen Presumptive negative 03/10/22 18:20 Drugs of Abuse Note Disclamer 03/10/22 18:20 Copper 118 mcg/dL (70-175) 03/12/22 18:40 Syphilis IgG/IgM Ab Nonreactive (NonReactive) 03/12/22 18:40 SARS-CoV-2 (PCR) Negative (Negative) 03/10/22 09:50 Blood Type O POSITIVE 03/15/22 09:42 Antibody Screen Negative 03/15/22 09:42 Crossmatch See Detail 03/15/22 09:42 Microbiology: Microbiology 03/18/22 Unknown Urine,Catheterized - Indwelling Catheter Urine Culture - Final NO GROWTH AFTER 48 HOURS 03/18/22 15:12 Peripheral/Venous Blood Culture - Preliminary NO GROWTH AFTER 72 HOURS 03/18/22 15:12 Peripheral/Venous Blood Culture - Preliminary NO GROWTH AFTER 72 HOURS [place]/IV: Voiding Method Indwelling Catheter Active Medications - Current Medications Current Medications: Generic Name Dose Route Start Last Admin Trade Name Freq PRN Reason Stop Dose Admin Acetaminophen 650 mg 03/13/22 05:50 03/19/22 18:38 Acetaminophen 325 Mg/10.15 Ml Oral Liqd Unit Dose FEEDTUBE 650 mg Q6H PRN Administration Non Cardiac Pain or Temp>100.5 Bisacodyl 10 mg 03/15/22 10:00 Bisacodyl 5 Mg Tab PO QDAY PRN Constipation Famotidine 10 mg 03/22/22 10:00 03/22/22 09:15 Famotidine 10 Mg Tab FEEDTUBE 10 mg BID SHAHBAZ Administration Fentanyl 50 mcg 03/10/22 10:58 03/14/22 20:48 Fentanyl 100 Mcg/2 Ml Inj IV 50 mcg Q10MIN PRN Administration ANALGESIA Hydrophilic Ointment 1 applic 03/10/22 11:03 Lip Therapy Vaseline TP Q2HR PRN Dry Lips Fentanyl Citrate 2,000 mcg in 100 mls @ 4.16 mls/hr 03/10/22 11:00 03/22/22 09:18 Fentanyl Drip Premix IV 4 mcg/kg/hr TITR SHAHBAZ 16.64 mls/hr Administration Protocol 1 MCG/KG/HR NORepinephrine/NS 8 MG-250 ML 8 mg in 250 mls @ 3.75 mls/hr 03/10/22 11:00 03/21/22 21:35 Norepinephrine/Ns 8 Mg-250 Ml (Double Conc) IV 10 mcg/min TITRATE SHAHBAZ 18.75 mls/hr Administration Protocol 2 MCG/MIN Vasopressin 20 unit/ Sodium 101 mls @ 9.09 mls/hr 03/21/22 15:00 03/22/22 00:03 Chloride IV 0.03 units/min TITR SHAHBAZ 9.09 mls/hr Administration Protocol 0.03 UNITS/MIN Levofloxacin/Dextrose 750 mg in 150 mls @ 100 mls/hr 03/23/22 12:00 Levaquin 750mg/150ml IV 03/27/22 13:29 Q48H SHAHBAZ Protocol Heparin Sodium/Sodium Chloride 25,000 unit in 500 mls @ 24 mls/hr 03/22/22 09:00 03/22/22 09:16 Heparin/ 0.45% Nacl-25,000 Unit/500 Ml IV 1,200 units/hr TITR SHAHBAZ 24 mls/hr Administration Protocol 1,200 UNITS/HR Metronidazole 500 mg in 100 mls @ 100 mls/hr 03/22/22 09:00 03/22/22 09:16 Flagyl 500 Mg/100 Ml IV 100 mls/hr Q8H SHAHBAZ Administration Protocol Levetiracetam 500 mg 03/12/22 10:00 03/22/22 09:15 Levetiracetam 500 Mg/5 Ml Oral Liqd FEEDTUBE 500 mg BID SHAHBAZ Administration Magnesium Hydroxide 30 ml 03/10/22 02:56 Magnesium Hydroxide (Mom) Oral Liqd Udc PO Q4H PRN Constipation Midodrine 15 mg 03/21/22 16:00 03/22/22 07:52 Midodrine 5 Mg Tab PO 15 mg TID@0800,1200,1600 SHAHBAZ Administration Multi-Ingred Cream/Lotion/Oil/Oint 1 applic 03/10/22 11:03 Mineral Oil/Petrolatum, White Ophth Oint 3.5 Gm OU Q4HR PRN Dry Eye(s) Ondansetron HCl 4 mg 03/10/22 02:56 Ondansetron 4 Mg/2 Ml Inj IV Q8H PRN Nausea And Vomiting Scopolamine 1 each 03/21/22 10:00 03/21/22 10:28 Scopolamine Transdermal Patch 72 Hr TD 1 each Q3D SHAHBAZ Administration Sodium Chloride 10 ml 03/10/22 10:00 03/21/22 21:22 Sodium Chloride 0.9% 10 Ml Flush Syringe IV 10 ml BID SHAHBAZ Administration Sodium Chloride 10 ml 03/10/22 02:56 Sodium Chloride 0.9% 10 Ml Flush Syringe IV PRN PRN LINE FLUSH Sodium Polystyrene Sulfonate 30 gm 03/22/22 08:00 03/22/22 07:53 Sodium Polystyrene 15 Gm/60 Ml Oral Liqd PO 03/22/22 12:00 30 gm ONCE@0800 SHAHBAZ Administration Vancomycin HCl 500 mg 03/22/22 12:00 Vancomycin 250 Mg/10 Ml Oral Liqd PO Q6HR SHAHBAZ Protocol Nutrition/Malnutrition Assess - Dietary Evaluation Nutrition/Malnutrition Findings: Nutrition Notes Start: 03/10/22 12:22 Freq: Status: Active Protocol: Document 03/21/22 15:08 JOSH (Rec: 03/21/22 15:18 JOSH [id number]) Nutrition Notes Initial or Follow up Reassessment Current Diagnosis Hypertension,Respiratory Failure,Malnutrition Other Pertinent Diagnosis MS, CAP, Seizure, Metabolic Encephalopathy, Septic Shock, NSTEMI, UTI ... Current Diet TF-Vital AF 1.2 En @ 60 ml/hr (since D 03/10). Labs/Tests 03/21: Na 135, K 5.7, Cl 97.4, CO2 21, BUN 104, Crea 1.3, Glu 118. Pertinent Medications 03/21: Vasopressin 20U, others nutritionally unremarkable. Height 5 ft 6 in Weight 83.2 kg [place] Body Weight (kg) 59.09 BMI 29.6 Weight change and time frame No body weight change reported in 11 days. Weight Status Overweight Subjective/Other Information RD consult for routine F/U on TF tolerance/continuation. TF continues as prescribed, and well tolerated, according to RN notes. Pt remains on Mechanical Ventilation, O2 saturation @ 96%, according to Physical Assessment History notes. Pt presents bilateral-LE pitting edema 3+, according to Physical Assessment History notes. Pt presents an unspecified area of concern for skin risk at the time, according to Physical Assessment History notes. Percent of energy/protein needs met: Prescribed TF-Vital AF 1.2 En @ 60 ml/hr provides for energy/protein needs (1,728 Kcal/108 g) during LOS, 100% Kcal; 100% AA. Burn Absent Trauma Absent GI Symptoms None Food Allergy No Skin Integrity/Comment Unspecified area of concern. Current % PO Other Minimum of two criteria No Fluid Accumulation Moderate to Severe (severe) Reduced Senior Receptionist Strength N/A (non-severe) Protein-Calorie Malnutrition N\A #1 Nutrition Diagnosis Inadequate oral intake Diagnosis Progress(for reassessment Continues documentation) Is patient on ventilator? Yes Is Patient Ambulatory and/or Out of Bed No REE-([facility]-confined to bed) 1713.168 Calculation Used for Recommendations [facility] Additional Notes Protein: 1-1.2 g/Kg ABW; 100- 166 g/day. Fluids: 1 ml/Kcal, or as per MD. Nutrition Intervention Nutrition Support: Continue TF-Vital AF 1.2 En @ 60 ml/hr. Flush: 100 ml water Q 4 hr, or as per MD. Kcal 1,728 Protein (gm) 108 Carbohydrates (gm) 159 Fat (gm) 78 Fluid (mL) 1,168 Fiber (gm) 7 % RDI: 100% Kcal; 100% AA. Goal #1 Provide at least 75% of energy /protein needs through Enteral Feeding during LOS. Follow-Up By: 03/28/22 Additional Comments Continue monitoring TF tolerance, Ventilation Status, Pressor support, and BM. <JESUS ARECHIGA - Last Filed: 03/23/22 07:08> Assessment and Plan Assessment and plan: I saw and evaluated the patient. I agree with the findings and the plan of care as documented in the Nurse Practitioner's~note, with the following corrections and additions. Hospitalist Physical - Constitutional Vitals: Temp Pulse Resp BP Pulse Ox 99.4 F 85 26 H 94/59 94 03/23/22 04:00 03/23/22 06:15 03/23/22 06:15 03/23/22 06:15 03/23/22 05:45 HEART Score - HEART Score Troponin: Troponin T 0.032 ng/mL (0.00-0.029) H D 03/10/22 12:24 Results - Labs CBC & Chem 7: 03/23/22 04:20 03/23/22 04:20 Labs: Laboratory Last Values WBC 37.3 K/mm3 (4.5-11.0) H 03/23/22 04:20 RBC 2.57 M/mm3 (3.65-5.03) L 03/23/22 04:20 Hgb 7.2 gm/dl (10.1-14.3) L 03/23/22 04:20 Hct 22.3 % (30.3-42.9) L 03/23/22 04:20 MCV 87 fl (79-97) 03/23/22 04:20 MCH 28 pg (28-32) 03/23/22 04:20 MCHC 32 % (30-34) 03/23/22 04:20 RDW 16.6 % (13.2-15.2) H 03/23/22 04:20 Plt Count 580 K/mm3 (140-440) H 03/23/22 04:20 Lymph % (Auto) 8.9 % (13.4-35.0) L 03/11/22 05:00 [place] % (Auto) 4.2 % (0.0-7.3) 03/11/22 05:00 Eos % (Auto) 0.1 % (0.0-4.3) 03/11/22 05:00 Baso % (Auto) 0.2 % (0.0-1.8) 03/11/22 05:00 Lymph # (Auto) 1.2 K/mm3 (1.2-5.4) 03/11/22 05:00 [place] # (Auto) 0.6 K/mm3 (0.0-0.8) 03/11/22 05:00 Eos # (Auto) 0.0 K/mm3 (0.0-0.4) 03/11/22 05:00 Baso # (Auto) 0.0 K/mm3 (0.0-0.1) 03/11/22 05:00 Add Manual Diff Complete 03/21/22 04:40 Total Counted 100 03/21/22 04:40 Seg Neutrophils % 86.6 % (40.0-70.0) H 03/11/22 05:00 Seg Neuts % (Manual) 71.0 % (40.0-70.0) H 03/21/22 04:40 Band Neutrophils % 12.0 % 03/21/22 04:40 Lymphocytes % (Manual) 2.0 % (13.4-35.0) L 03/21/22 04:40 Reactive Lymphs % (Man) 0 % 03/21/22 04:40 Monocytes % (Manual) 7.0 % (0.0-7.3) 03/21/22 04:40 Eosinophils % (Manual) 3.0 % (0.0-4.3) 03/21/22 04:40 Basophils % (Manual) 0 % (0.0-1.8) 03/21/22 04:40 Metamyelocytes % 3.0 % 03/21/22 04:40 Myelocytes % 0 % 03/21/22 04:40 Promyelocytes % 2.0 % 03/21/22 04:40 Blast Cells % 0 % 03/21/22 04:40 Nucleated RBC % 1.0 % (0.0-0.9) H 03/21/22 04:40 Seg Neutrophils # 11.8 K/mm3 (1.8-7.7) H 03/11/22 05:00 Seg Neutrophils # Man 18.2 K/mm3 (1.8-7.7) H 03/21/22 04:40 Band Neutrophils # 3.1 K/mm3 03/21/22 04:40 Lymphocytes # (Manual) 0.5 K/mm3 (1.2-5.4) L 03/21/22 04:40 Abs React Lymphs (Man) 0.0 K/mm3 03/21/22 04:40 Monocytes # (Manual) 1.8 K/mm3 (0.0-0.8) H 03/21/22 04:40 Eosinophils # (Manual) 0.8 K/mm3 (0.0-0.4) H 03/21/22 04:40 Basophils # (Manual) 0.0 K/mm3 (0.0-0.1) 03/21/22 04:40 Metamyelocytes # 0.8 K/mm3 03/21/22 04:40 Myelocytes # 0.0 K/mm3 03/21/22 04:40 Promyelocytes # 0.5 K/mm3 03/21/22 04:40 Blast Cells # 0.0 K/mm3 03/21/22 04:40 WBC Morphology Not Reportable 03/21/22 04:40 Hypersegmented Neuts Not Reportable 03/21/22 04:40 Hyposegmented Neuts Not Reportable 03/21/22 04:40 Hypogranular Neuts Not Reportable 03/21/22 04:40 Smudge Cells Not Reportable 03/21/22 04:40 Toxic Granulation Not Reportable 03/21/22 04:40 Toxic Vacuolation Not Reportable 03/21/22 04:40 Dohle Bodies Not Reportable 03/21/22 04:40 Pelger-Huet Anomaly Not Reportable 03/21/22 04:40 Luis Rods Not Reportable 03/21/22 04:40 Platelet Estimate Consistent w auto 03/21/22 04:40 Clumped Platelets Not Reportable 03/21/22 04:40 Plt Clumps, EDTA Not Reportable 03/21/22 04:40 Large Platelets Few 03/21/22 04:40 Giant Platelets Not Reportable 03/21/22 04:40 Platelet Satelliting Not Reportable 03/21/22 04:40 Plt Morphology Comment Not Reportable 03/21/22 04:40 RBC Morphology Not Reportable 03/21/22 04:40 Dimorphic RBCs Not Reportable 03/21/22 04:40 Polychromasia Not Reportable 03/21/22 04:40 Hypochromasia 3+ 03/21/22 04:40 Poikilocytosis Not Reportable 03/21/22 04:40 Anisocytosis 1+ 03/21/22 04:40 Microcytosis 1+ 03/21/22 04:40 Macrocytosis Not Reportable 03/21/22 04:40 Spherocytes Not Reportable 03/21/22 04:40 Pappenheimer Bodies Not Reportable 03/21/22 04:40 Sickle Cells Not Reportable 03/21/22 04:40 Target Cells Rare 03/21/22 04:40 Tear Drop Cells Few 03/21/22 04:40 Ovalocytes 1+ 03/21/22 04:40 Helmet Cells Not Reportable 03/21/22 04:40 [place] Bodies Not Reportable 03/21/22 04:40 [place] Rings Not Reportable 03/21/22 04:40 [place] Cells Not Reportable 03/21/22 04:40 Bite Cells Not Reportable 03/21/22 04:40 Crenated Cell Not Reportable 03/21/22 04:40 Elliptocytes Few 03/21/22 04:40 Acanthocytes (Spur) Not Reportable 03/21/22 04:40 Rouleaux Not Reportable 03/21/22 04:40 Hemoglobin C Crystals Not Reportable 03/21/22 04:40 Schistocytes Few 03/21/22 04:40 Malaria parasites Not Reportable 03/21/22 04:40 Tani Bodies Not Reportable 03/21/22 04:40 Hem Pathologist Commnt No 03/21/22 04:40 PT 17.2 Sec. (12.2-14.9) H 03/22/22 09:30 INR 1.25 (0.87-1.13) H 03/22/22 09:30 APTT 33.4 Sec. (24.2-36.6) 03/22/22 09:30 D-Dimer 787.78 ng/mlDDU (0-234) H 03/10/22 05:45 Heparin Anti-Xa Level 0.44 U.I./ml (0.3-0.7) 03/22/22 22:00 ABG pH 7.333 pH Units (7.350-7.450) L 03/23/22 04:25 ABG pCO2 39.4 mm Hg 03/23/22 04:25 ABG pO2 70.9 mm Hg (80.0-90.0) L 03/23/22 04:25 ABG HCO3 20.5 mmol/L (20.0-26.0) 03/23/22 04:25 ABG O2 Saturation 93.3 % (95.0-99.0) L 03/23/22 04:25 ABG O2 Content 9.1 (0.0-44) 03/23/22 04:25 ABG Base Excess -5.0 mmol/L (-2.0-3.0) L 03/23/22 04:25 ABG Hemoglobin 7.0 gm/dl (12.0-16.0) L 03/23/22 04:25 ABG Carboxyhemoglobin 1.8 % (0.0-5.0) 03/23/22 04:25 ABG Methemoglobin 0.4 % (0.0-1.5) 03/23/22 04:25 Oxyhemoglobin 91.2 % (95.0-99.0) L 03/23/22 04:25 FiO2 80 % 03/23/22 04:25 Sodium 139 mmol/L (137-145) 03/23/22 04:20 Potassium 5.0 mmol/L (3.6-5.0) 03/23/22 04:20 Chloride 98.4 mmol/L (98-107) 03/23/22 04:20 Carbon Dioxide 19 mmol/L (22-30) L 03/23/22 04:20 Anion Gap 27 mmol/L 03/23/22 04:20 BUN 125 mg/dL (7-17) H 03/23/22 04:20 Creatinine 1.9 mg/dL (0.6-1.2) H 03/23/22 04:20 Estimated GFR 27 ml/min 03/23/22 04:20 BUN/Creatinine Ratio 66 % 03/23/22 04:20 Glucose 133 mg/dL (65-100) H 03/23/22 04:20 POC Glucose 121 mg/dL (70-105) H 03/23/22 05:40 Osmolality 285 Mosm/kg 03/10/22 12:24 Lactic Acid 0.90 mmol/L (0.7-2.0) 03/18/22 05:20 Uric Acid 1.6 mg/dL (3.5-7.6) L 03/10/22 13:15 Calcium 8.2 mg/dL (8.4-10.2) L 03/23/22 04:20 Phosphorus 3.70 mg/dL (2.5-4.5) 03/18/22 05:20 Magnesium 2.00 mg/dL (1.7-2.3) 03/18/22 05:20 Ferritin 219.2 ng/mL (10.0-200.0) H 03/10/22 05:45 Total Bilirubin 0.30 mg/dL (0.1-1.2) 03/18/22 05:20 AST 39 units/L (5-40) 03/18/22 05:20 ALT 14 units/L (7-56) 03/18/22 05:20 Alkaline Phosphatase 119 units/L (35-129) 03/18/22 05:20 Lactate Dehydrogenase 210 units/L (91-180) H 03/10/22 05:45 Total Creatine Kinase 901 units/L (30-135) H 03/10/22 12:24 CK-MB (CK-2) 15.3 ng/mL (0.0-4.0) H 03/10/22 12:24 CK-MB (CK-2) Rel Index 1.6 (0-4) 03/10/22 12:24 Troponin T 0.032 ng/mL (0.00-0.029) H D 03/10/22 12:24 C-Reactive Protein < 0.03 mg/dL (0.00-1.30) 03/10/22 05:45 NT-Pro-B Natriuret Pep 91049 pg/mL (0-900) H 03/10/22 01:25 Total Protein 5.4 g/dL (6.3-8.2) L 03/18/22 05:20 Albumin 2.0 g/dL (3.9-5) L 03/18/22 05:20 Albumin/Globulin Ratio 0.6 % 03/18/22 05:20 Prealbumin 0.044 g/L (0.200-0.400) L 03/12/22 18:40 Triglycerides 47 mg/dL (2-149) 03/10/22 01:25 Cholesterol 259 mg/dL (50-199) H 03/10/22 01:25 LDL Cholesterol Direct 187 mg/dL (50-130) H 03/10/22 01:25 HDL Cholesterol 63 mg/dL (40-59) H 03/10/22 01:25 Cholesterol/HDL Ratio 4.11 % 03/10/22 01:25 Lipase 15 units/L (13-60) 03/10/22 01:25 Vitamin B1 28 nmol/L (8-30) 03/13/22 08:00 Vitamin B12 1021 pg/mL (211-911) H 03/12/22 18:40 Folate 2.15 ng/mL (7.3-26.0) L 03/12/22 18:40 Procalcitonin 3.92 ng/mL (<0.15) 03/10/22 05:45 TSH 1.290 mlU/mL (0.270-4.200) 03/12/22 18:40 Urine Color Yellow (Yellow) 03/10/22 18:20 Urine Turbidity Clear (Clear) 03/10/22 18:20 Urine pH 6.0 (5.0-7.0) 03/10/22 18:20 Ur Specific [place] 1.010 (1.003-1.030) 03/10/22 18:20 Urine Protein <15 mg/dl mg/dL (Negative) 03/10/22 18:20 Urine Glucose (UA) Neg mg/dL (Negative) 03/10/22 18:20 Urine Ketones Tr mg/dL (Negative) 03/10/22 18:20 Urine Blood Sm (Negative) 03/10/22 18:20 Urine Nitrite Neg (Negative) 03/10/22 18:20 Urine Bilirubin Neg (Negative) 03/10/22 18:20 Urine Urobilinogen < 2.0 mg/dL (<2.0) 03/10/22 18:20 Ur Leukocyte Esterase Lg (Negative) 03/10/22 18:20 Urine WBC (Auto) 105.0 /HPF (0.0-6.0) H 03/10/22 18:20 Urine RBC (Auto) 2.0 /HPF (0.0-6.0) 03/10/22 18:20 U Epithel Cells (Auto) < 1.0 /HPF (0-13.0) 03/10/22 18:20 Urine Bacteria (Auto) 1+ /HPF (Negative) 03/10/22 18:20 Urine Osmolality 368 Mosm/kg 03/10/22 18:20 Urine Creatinine 34.4 mg/dL (0.1-20.0) H 03/19/22 14:40 Urine Sodium 18 mmol/L 03/19/22 14:40 Urine Opiates Screen Presumptive positive 03/10/22 18:20 Urine Methadone Screen Presumptive negative 03/10/22 18:20 Ur Barbiturates Screen Presumptive negative 03/10/22 18:20 Ur Phencyclidine Scrn Presumptive negative 03/10/22 18:20 Ur Amphetamines Screen Presumptive negative 03/10/22 18:20 U Benzodiazepines Scrn Presumptive negative 03/10/22 18:20 Urine Cocaine Screen Presumptive negative 03/10/22 18:20 U Marijuana (THC) Screen Presumptive negative 03/10/22 18:20 Drugs of Abuse Note Disclamer 03/10/22 18:20 Copper 118 mcg/dL (70-175) 03/12/22 18:40 Syphilis IgG/IgM Ab Nonreactive (NonReactive) 03/12/22 18:40 SARS-CoV-2 (PCR) Negative (Negative) 03/10/22 09:50 Blood Type O POSITIVE 03/15/22 09:42 Antibody Screen Negative 03/15/22 09:42 Crossmatch See Detail 03/15/22 09:42 Microbiology: Microbiology 03/18/22 15:12 Peripheral/Venous Blood Culture - Preliminary NO GROWTH AFTER 4 DAYS 03/18/22 15:12 Peripheral/Venous Blood Culture - Preliminary NO GROWTH AFTER 4 DAYS 03/18/22 17:40 Tracheal Aspirate Sputum Culture - Final [place]/IV: Voiding Method Indwelling Catheter Active Medications - Current Medications Current Medications: Generic Name Dose Route Start Last Admin Trade Name Freq PRN Reason Stop Dose Admin Acetaminophen 650 mg 03/13/22 05:50 03/19/22 18:38 Acetaminophen 325 Mg/10.15 Ml Oral Liqd Unit Dose FEEDTUBE 650 mg Q6H PRN Administration Non Cardiac Pain or Temp>100.5 Bisacodyl 10 mg 03/15/22 10:00 Bisacodyl 5 Mg Tab PO QDAY PRN Constipation Famotidine 10 mg 03/22/22 10:00 03/22/22 22:09 Famotidine 10 Mg Tab FEEDTUBE 10 mg BID SHAHBAZ Administration Fentanyl 50 mcg 03/10/22 10:58 03/14/22 20:48 Fentanyl 100 Mcg/2 Ml Inj IV 50 mcg Q10MIN PRN Administration ANALGESIA Hydrophilic Ointment 1 applic 03/10/22 11:03 Lip Therapy Vaseline TP Q2HR PRN Dry Lips Fentanyl Citrate 2,000 mcg in 100 mls @ 4.16 mls/hr 03/10/22 11:00 03/23/22 02:17 Fentanyl Drip Premix IV 4 mcg/kg/hr TITR SHAHBAZ 16.64 mls/hr Administration Protocol 1 MCG/KG/HR NORepinephrine/NS 8 MG-250 ML 8 mg in 250 mls @ 3.75 mls/hr 03/10/22 11:00 03/22/22 17:15 Norepinephrine/Ns 8 Mg-250 Ml (Double Conc) IV 4 mcg/min TITRATE SHAHBAZ 7.5 mls/hr Titration Protocol 2 MCG/MIN Vasopressin 20 unit/ Sodium 101 mls @ 9.09 mls/hr 03/21/22 15:00 03/23/22 00:03 Chloride IV 0.03 units/min TITR SHAHBAZ 9.09 mls/hr Administration Protocol 0.03 UNITS/MIN Levofloxacin/Dextrose 750 mg in 150 mls @ 100 mls/hr 03/23/22 12:00 Levaquin 750mg/150ml IV 03/27/22 13:29 Q48H SHAHBAZ Protocol Heparin Sodium/Sodium Chloride 25,000 unit in 500 mls @ 24 mls/hr 03/22/22 09:00 03/22/22 23:23 Heparin/ 0.45% Nacl-25,000 Unit/500 Ml IV 1,000 units/hr TITR SHAHBAZ 20 mls/hr Titration Protocol 1,200 UNITS/HR Metronidazole 500 mg in 100 mls @ 100 mls/hr 03/22/22 09:00 03/23/22 01:42 Flagyl 500 Mg/100 Ml IV 100 mls/hr Q8H SHAHBAZ Administration Protocol Levetiracetam 500 mg 03/12/22 10:00 03/22/22 22:09 Levetiracetam 500 Mg/5 Ml Oral Liqd FEEDTUBE 500 mg BID SHAHBAZ Administration Magnesium Hydroxide 30 ml 03/10/22 02:56 Magnesium Hydroxide (Mom) Oral Liqd Udc PO Q4H PRN Constipation Midodrine 15 mg 03/21/22 16:00 03/22/22 16:43 Midodrine 5 Mg Tab PO 15 mg TID@0800,1200,1600 SHAHBAZ Administration Multi-Ingred Cream/Lotion/Oil/Oint 1 applic 03/10/22 11:03 Mineral Oil/Petrolatum, White Ophth Oint 3.5 Gm OU Q4HR PRN Dry Eye(s) Ondansetron HCl 4 mg 03/10/22 02:56 Ondansetron 4 Mg/2 Ml Inj IV Q8H PRN Nausea And Vomiting Scopolamine 1 each 03/21/22 10:00 03/21/22 10:28 Scopolamine Transdermal Patch 72 Hr TD 1 each Q3D SHAHBAZ Administration Sodium Chloride 10 ml 03/10/22 10:00 03/22/22 22:00 Sodium Chloride 0.9% 10 Ml Flush Syringe IV 10 ml BID SHAHBAZ Administration Sodium Chloride 10 ml 03/10/22 02:56 Sodium Chloride 0.9% 10 Ml Flush Syringe IV PRN PRN LINE FLUSH Vancomycin HCl 500 mg 03/22/22 12:00 03/23/22 06:10 Vancomycin 250 Mg/10 Ml Oral Liqd PO 500 mg Q6HR SHAHBAZ Administration Protocol Nutrition/Malnutrition Assess - Dietary Evaluation Nutrition/Malnutrition Findings: Nutrition Notes Start: 03/10/22 12:22 Freq: Status: Active Protocol: Document 03/21/22 15:08 JOSH (Rec: 03/21/22 15:18 JOSH [id number]) Nutrition Notes Initial or Follow up Reassessment Current Diagnosis Hypertension,Respiratory Failure,Malnutrition Other Pertinent Diagnosis MS, CAP, Seizure, Metabolic Encephalopathy, Septic Shock, NSTEMI, UTI ... Current Diet TF-Vital AF 1.2 En @ 60 ml/hr (since D 03/10). Labs/Tests 03/21: Na 135, K 5.7, Cl 97.4, CO2 21, BUN 104, Crea 1.3, Glu 118. Pertinent Medications 03/21: Vasopressin 20U, others nutritionally unremarkable. Height 5 ft 6 in Weight 83.2 kg [place] Body Weight (kg) 59.09 BMI 29.6 Weight change and time frame No body weight change reported in 11 days. Weight Status Overweight Subjective/Other Information RD consult for routine F/U on TF tolerance/continuation. TF continues as prescribed, and well tolerated, according to RN notes. Pt remains on Mechanical Ventilation, O2 saturation @ 96%, according to Physical Assessment History notes. Pt presents bilateral-LE pitting edema 3+, according to Physical Assessment History notes. Pt presents an unspecified area of concern for skin risk at the time, according to Physical Assessment History notes. Percent of energy/protein needs met: Prescribed TF-Vital AF 1.2 En @ 60 ml/hr provides for energy/protein needs (1,728 Kcal/108 g) during LOS, 100% Kcal; 100% AA. Burn Absent Trauma Absent GI Symptoms None Food Allergy No Skin Integrity/Comment Unspecified area of concern. Current % PO Other Minimum of two criteria No Fluid Accumulation Moderate to Severe (severe) Reduced Senior Receptionist Strength N/A (non-severe) Protein-Calorie Malnutrition N\A #1 Nutrition Diagnosis Inadequate oral intake Diagnosis Progress(for reassessment Continues documentation) Is patient on ventilator? Yes Is Patient Ambulatory and/or Out of Bed No [facility] 1713.168 Calculation Used for Recommendations [facility] Additional Notes Protein: 1-1.2 g/Kg ABW; 100- 166 g/day. Fluids: 1 ml/Kcal, or as per MD. Nutrition Intervention Nutrition Support: Continue TF-Vital AF 1.2 En @ 60 ml/hr. Flush: 100 ml water Q 4 hr, or as per MD. Kcal 1,728 Protein (gm) 108 Carbohydrates (gm) 159 Fat (gm) 78 Fluid (mL) 1,168 Fiber (gm) 7 % RDI: 100% Kcal; 100% AA. Goal #1 Provide at least 75% of energy /protein needs through Enteral Feeding during LOS. Follow-Up By: 03/28/22 Additional Comments Continue monitoring TF tolerance, Ventilation Status, Pressor support, and BM.
[2022-03-22 10:58] LABS: INR 1.25 (0.87-1.13)
[2022-03-22 10:59] LABS: Partial Thromboplastin Time 33.4 Sec. (24.2-36.6)
[2022-03-22 11:31] LABS: ABG Base Excess -4.9 mmol/L (-2.0-3.0); ABG HCO3 19.9 mmol/L (20.0-26.0); ABG PCO2 36.5 mm Hg; ABG PH 7.355 pH Units (7.350-7.450)
[2022-03-22] MEDS: VANCOMYCIN 250 MG/10 ML ORAL LIQD PO SCH ×2 (11:47→17:45)
[2022-03-22 12:13] LABS: ABG Oxygen Saturation 96.8 % (95.0-99.0)
[2022-03-22 12:16] LABS: ABG Methemoglobin TNR % (0.0-1.5)
[2022-03-22] MEDS: NORepinephrine/NS 8 MG-250 ML 8 MG/250 ML INFUS..BTL IV SCH (12:56)
--- NOTE | 2022-03-22 12:57 | Progress Note ---
Assessment and Plan Cultures: 03/10/2022 blood culture: No growth 03/10/2022 sputum culture: Usual respiratory shital 03/14/2022 urine culture: No growth 03/18/2022 blood culture: No growth 03/18/2022 tracheal aspirate culture: no growth so far COVID-19 PCR: Negative A/P: 61-year-old female past medical history of multiple sclerosis, seizures now with: #Septic shock, likely secondary to bilateral pneumonia #Acute hypoxic respiratory failure with ARDS: On vent with high requirements. #Diarrhea: Had been on Kayexalate, MiraLAX, senna. #Bilateral pneumonia: Cultures without any particular pathogen isolated. #Multiple sclerosis #Possible UTI: UA did show pyuria on admission, culture without any significant growth Recs: -Completed meropenem -Continue IV levofloxacin, renally adjusted, complete 5 days -Worsening WBC, follow-up C. difficile PCR, if negative, discontinue IV Flagyl and oral vancomycin -poor prognosis Gabrielle Vásquez MD, FACP, [facility] O: [phone] F: [phone] C: [phone] Subjective Date of service: 03/22/22 Principal diagnosis: AHRF; Multifocal Pneumonia; Septic shock; NSTEMI; AMS; Seizures Interval history: Afebrile. Having liquid diarrhea. Had been on Kayexalate, MiraLAX, Senna. Remains on the ventilator, on increasing pressor requirements. Objective - Exam Narrative Exam: Physical Exam: Constitutional: sedated, intubated, on the vent Head, Ears, Nose: Normocephalic, atraumatic. External ears, nose normal Eyes: Conjunctivae/corneas clear. No icterus. No ptosis. Neck: intubated Oral: intubated Cardiovascular: S1, S2 + Respiratory: AE fair bilaterally and equal GI: Soft, bowel sounds + Musculoskeletal: No pedal edema, no cyanosis. Skin: No rash or abscess Hem/Lymphatic: No palpable cervical or supraclavicular nodes. No lymphangitis Psych: no agitation Neurological: sedated, intubated, on the vent, exam limited - Constitutional Vitals: Vital Signs Temp Pulse Resp BP Pulse Ox 99.3 F 88 28 H 93/62 100 03/22/22 06:57 03/22/22 11:00 03/22/22 11:00 03/22/22 11:00 03/22/22 11:00 Temperature -Last 24 Hours Temperature 99.3 F Temperature 99.1 F Temperature 98.1 F Temperature 98.2 F Temperature 98.4 F - Labs CBC & Chem 7: 03/22/22 04:10 03/22/22 04:10 Labs: Abnormal lab results 03/21/22 03/21/22 03/22/22 Range/Units 15:30 21:00 04:10 WBC 32.9 H (4.5-11.0) K/mm3 RBC 2.60 L (3.65-5.03) M/mm3 Hgb 7.4 L (10.1-14.3) gm/dl Hct 22.3 L (30.3-42.9) % RDW 16.8 H (13.2-15.2) % Plt Count 517 H (140-440) K/mm3 PT (12.2-14.9) Sec. INR (0.87-1.13) ABG pH 7.197 L* 7.284 L (7.350-7.450) pH Units ABG pO2 76.6 L 68.6 L (80.0-90.0) mm Hg ABG HCO3 (20.0-26.0) mmol/L ABG O2 Saturation 92.8 L (95.0-99.0) % ABG Base Excess -5.7 L -3.7 L (-2.0-3.0) mmol/L ABG Hemoglobin 10.0 L 7.6 L (12.0-16.0) gm/dl Oxyhemoglobin 94.3 L 90.7 L (95.0-99.0) % Potassium (3.6-5.0) mmol/L Chloride (98-107) mmol/L Carbon Dioxide (22-30) mmol/L BUN (7-17) mg/dL Creatinine (0.6-1.2) mg/dL Glucose (65-100) mg/dL 03/22/22 03/22/22 03/22/22 Range/Units 04:10 09:00 09:30 WBC (4.5-11.0) K/mm3 RBC (3.65-5.03) M/mm3 Hgb (10.1-14.3) gm/dl Hct (30.3-42.9) % RDW (13.2-15.2) % Plt Count (140-440) K/mm3 PT 17.2 H (12.2-14.9) Sec. INR 1.25 H (0.87-1.13) ABG pH (7.350-7.450) pH Units ABG pO2 (80.0-90.0) mm Hg ABG HCO3 19.9 L (20.0-26.0) mmol/L ABG O2 Saturation (95.0-99.0) % ABG Base Excess -4.9 L (-2.0-3.0) mmol/L ABG Hemoglobin 7.5 L (12.0-16.0) gm/dl Oxyhemoglobin (95.0-99.0) % Potassium 5.4 H (3.6-5.0) mmol/L Chloride 97.2 L (98-107) mmol/L Carbon Dioxide 21 L (22-30) mmol/L BUN 116 H (7-17) mg/dL Creatinine 1.6 H (0.6-1.2) mg/dL Glucose 142 H (65-100) mg/dL
[2022-03-23] MEDS: VASOPRESSIN 20 UNIT in SODIUM CHLORIDE 0.9% 100 ML IV SCH (00:03)
[2022-03-23] MEDS: VANCOMYCIN 250 MG/10 ML ORAL LIQD PO SCH ×4 (00:03→18:21)
[2022-03-23] MEDS: metroNIDAZOLE/NS 500 MG/100 ML 500 MG/100 ML BAG IV SCH ×3 (01:42→17:15)
[2022-03-23] MEDS: fentaNYL DRIP Premix 2,000 MCG/100 ML BAG IV SCH ×4 (02:17→18:36)
[2022-03-23 04:29] LABS: Hematocrit 22.3 % (30.3-42.9); Hemoglobin 7.2 gm/dl (10.1-14.3); Mean Corpuscular HGB Conc 32 % (30-34); Mean Corpuscular Volume 87 fl (79-97); Platelet Count 580 K/mm3 (140-440); Red Blood Count 2.57 M/mm3 (3.65-5.03); Red Cell Distribution Width 16.6 % (13.2-15.2)
[2022-03-23 04:47] LABS: ABG HCO3 20.5 mmol/L (20.0-26.0); ABG Methemoglobin 0.4 % (0.0-1.5); ABG Oxygen Saturation 93.3 % (95.0-99.0); ABG PCO2 39.4 mm Hg; ABG PH 7.333 pH Units (7.350-7.450); ABG PO2 70.9 mm Hg (80.0-90.0)
[2022-03-23 04:50] LABS: Calcium 8.2 mg/dL (8.4-10.2)
--- NOTE | 2022-03-23 07:06 | XRay Report ---
XR chest 1V ap INDICATION / CLINICAL INFORMATION: F/U Respiratory failure. COMPARISON: 03/21/2022 FINDINGS: SUPPORT DEVICES: Unchanged. HEART /PULMONARY VASCULATURE: Unchanged. LUNGS / PLEURA: Moderate diffuse interstitial opacities are similar. No sizable pleural effusion. No pneumothorax. IMPRESSION: No significant change. Signer Name: Chaitanya Skaggs MD Signed: 03/23/2022 7:02 AM Workstation Name: [id number]
[2022-03-23] MEDS: MIDODRINE 5 MG TAB PO SCH ×3 (08:06→16:06)
[2022-03-23] MEDS: HEPARIN/ 0.45% NACL DRIP 25,000 UNIT/500 ML BAG IV SCH (08:09)
--- NOTE | 2022-03-23 09:59 | Progress Note ---
Assessment and Plan 1. Acute kidney injury: Vasomotor TANIYA in the setting of shock. ATN. Patient has medina catheter. Monitor renal function. Creatinine level is increasing. UOP is low. Avoid nephrotoxic agents. Meds dosage based on GFR. Monitor for [employer] needs. Patient remain on Levophed and MAP in mid 60s. 2. 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 Associated volume overload. Sodium level is better / fluctuates. 3. FEN: Hyperkalemia, Kayaxalate prn, monitor. Volume overload, diuretics as BP allows. Anion-gap metabolic acdosis, 2/2 lactic acidosis & TANIYA, monitor. Replete lytes as needed. Monitor lytes and volume status. 4. Acute Hypoxemic Respiratory Failure / Multifocal Pneumonia / CAP: Chest X-ray was concerning for multifocal pneumonia. Eleavted D-dimer. Patient intubated on 03/10 due to tachypnea and worsening MS. 5. Hypotension / NSTEMI: Presented with hypotension. on Levophed and Midodrine. Wean as tolerated. Followed Cards. 6. Sepsis: Likley 2/2 Multifocal Pneumonia/CAP. Covid negative. Abx. Monitor. 7. Acute Metabolic Encephalopathy: H/o Seizure Disorder. Now intubated on vent. Keppra. Seizure precautions. 8. MS with paraplegia: Bedbound status. Supportive care. Prognosis sis slim. D/w ICU team. Subjective: Patient was seen and examined at the bedside. Examination: General appearance: well-developed, appears stated age, no distress, intubated, on vent HEENT: ATNC, pupils equal, no icterus Neck: trachea midline Respiratory: decreased breath sounds bilaterally Cardiology: regular, S1S2, no murmur Gastrointestinal: soft, normoactive bowel sounds, not tender Integumentary: no obvious rash Neurologic: not responding Ext: 2+ LE, dependent edema and anasarca noted : medina catheter Subjective Date of service: 03/23/22 Principal diagnosis: AHRF; Multifocal Pneumonia; Septic shock; NSTEMI; AMS; Seizures Objective - Vital Signs Vital signs: Vital Signs - 12hr 03/22/22 03/22/22 03/22/22 22:00 22:15 22:30 Temperature Pulse Rate 87 85 88 Pulse Rate [ From Monitor] Respiratory 28 H 29 H 28 H Rate Blood Pressure 87/55 87/56 90/57 O2 Sat by Pulse Oximetry 03/22/22 03/22/22 03/22/22 22:45 23:00 23:15 Temperature Pulse Rate 85 86 85 Pulse Rate [ From Monitor] Respiratory 30 H 24 28 H Rate Blood Pressure 92/58 88/55 86/55 O2 Sat by Pulse 95 Oximetry 03/22/22 03/22/22 03/22/22 23:19 23:30 23:45 Temperature Pulse Rate 90 87 85 Pulse Rate [ From Monitor] Respiratory 28 H 30 H 28 H Rate Blood Pressure 86/55 102/54 93/55 O2 Sat by Pulse 95 Oximetry 03/22/22 03/23/22 03/23/22 23:51 00:00 00:15 Temperature 99.8 F H Pulse Rate 88 88 Pulse Rate [ 88 From Monitor] Respiratory 22 31 H Rate Blood Pressure 89/57 91/59 O2 Sat by Pulse 96 94 Oximetry 03/23/22 03/23/22 03/23/22 00:30 00:34 00:45 Temperature Pulse Rate 90 91 H 87 Pulse Rate [ From Monitor] Respiratory 28 H 28 H Rate Blood Pressure 91/59 87/56 90/61 O2 Sat by Pulse 95 96 96 Oximetry 03/23/22 03/23/22 03/23/22 01:00 01:15 01:30 Temperature Pulse Rate 90 87 89 Pulse Rate [ From Monitor] Respiratory 28 H 28 H 28 H Rate Blood Pressure 99/60 88/56 88/57 O2 Sat by Pulse 97 96 Oximetry 03/23/22 03/23/22 03/23/22 01:45 02:00 02:15 Temperature Pulse Rate 85 85 85 Pulse Rate [ From Monitor] Respiratory 28 H 21 29 H Rate Blood Pressure 89/62 91/59 88/55 O2 Sat by Pulse 94 94 Oximetry 03/23/22 03/23/22 03/23/22 02:31 02:45 03:00 Temperature Pulse Rate 87 86 86 Pulse Rate [ From Monitor] Respiratory 28 H 28 H 28 H Rate Blood Pressure 90/59 91/59 85/55 O2 Sat by Pulse 95 Oximetry 03/23/22 03/23/22 03/23/22 03:15 03:30 03:45 Temperature Pulse Rate 84 86 84 Pulse Rate [ From Monitor] Respiratory 28 H 28 H 28 H Rate Blood Pressure 83/56 80/56 93/51 O2 Sat by Pulse 90 95 Oximetry 03/23/22 03/23/22 03/23/22 04:00 04:15 04:31 Temperature 99.4 F Pulse Rate 85 84 85 Pulse Rate [ 85 From Monitor] Respiratory 28 H 28 H 28 H Rate Blood Pressure 89/60 92/60 98/55 O2 Sat by Pulse 95 93 75 L Oximetry 03/23/22 03/23/22 03/23/22 04:45 05:01 05:15 Temperature Pulse Rate 85 83 85 Pulse Rate [ From Monitor] Respiratory 28 H 28 H 30 H Rate Blood Pressure 90/56 89/58 91/55 O2 Sat by Pulse 95 100 Oximetry 03/23/22 03/23/22 03/23/22 05:30 05:45 06:01 Temperature Pulse Rate 85 86 88 Pulse Rate [ From Monitor] Respiratory 24 28 H 24 Rate Blood Pressure 88/53 91/59 88/58 O2 Sat by Pulse 93 94 Oximetry 03/23/22 03/23/22 03/23/22 06:15 06:30 06:45 Temperature Pulse Rate 85 86 85 Pulse Rate [ From Monitor] Respiratory 26 H 28 H 25 H Rate Blood Pressure 94/59 91/51 89/58 O2 Sat by Pulse 94 92 Oximetry 03/23/22 03/23/22 03/23/22 07:00 07:09 07:10 Temperature 98.0 F 100.3 F H Pulse Rate 85 Pulse Rate [ From Monitor] Respiratory 25 H Rate Blood Pressure 91/53 O2 Sat by Pulse 90 Oximetry 03/23/22 03/23/22 03/23/22 07:15 07:25 07:30 Temperature Pulse Rate 86 87 85 Pulse Rate [ From Monitor] Respiratory 28 H 26 H Rate Blood Pressure 91/53 90/58 87/60 O2 Sat by Pulse 93 94 Oximetry 03/23/22 03/23/22 03/23/22 07:45 08:00 08:15 Temperature Pulse Rate 85 85 84 Pulse Rate [ From Monitor] Respiratory 29 H 28 H 24 Rate Blood Pressure 87/60 84/57 86/55 O2 Sat by Pulse 94 91 Oximetry 03/23/22 03/23/22 03/23/22 08:30 08:45 09:01 Temperature Pulse Rate 83 83 84 Pulse Rate [ From Monitor] Respiratory 24 28 H 30 H Rate Blood Pressure 89/59 89/59 86/54 O2 Sat by Pulse 94 96 Oximetry 03/23/22 09:15 Temperature Pulse Rate 83 Pulse Rate [ From Monitor] Respiratory 29 H Rate Blood Pressure 87/58 O2 Sat by Pulse 94 Oximetry - Lab 03/23/22 04:20 03/23/22 04:20 Most recent lab results ABG pH 7.333 pH Units (7.350-7.450) L 03/23/22 04:25 ABG pCO2 39.4 mm Hg 03/23/22 04:25 ABG pO2 70.9 mm Hg (80.0-90.0) L 03/23/22 04:25 ABG HCO3 20.5 mmol/L (20.0-26.0) 03/23/22 04:25 ABG O2 Saturation 93.3 % (95.0-99.0) L 03/23/22 04:25 Calcium 8.2 mg/dL (8.4-10.2) L 03/23/22 04:20 Phosphorus 3.70 mg/dL (2.5-4.5) 03/18/22 05:20 Magnesium 2.00 mg/dL (1.7-2.3) 03/18/22 05:20 Urine Creatinine 34.4 mg/dL (0.1-20.0) H 03/19/22 14:40 Urine Sodium 18 mmol/L 03/19/22 14:40 Medications & Allergies - Medications Allergies/Adverse Reactions: Allergies Penicillins Allergy (Mild, Verified 01/11/19 12:20) Rash . Home Medications: Home Medications Medication Instructions Recorded Confirmed Last Taken Type Ciprofloxacin HCl [Ciprofloxacin 500 mg PO Q12H #14 tab 01/11/19 Unknown Rx TAB] levETIRAcetam [Keppra TAB] 500 mg PO BID #60 tablet 01/11/19 Unknown Rx Active Medications: Generic Name Dose Route Start Last Admin Trade Name Freq PRN Reason Stop Dose Admin Acetaminophen 650 mg 03/13/22 05:50 03/19/22 18:38 Acetaminophen 325 Mg/10.15 Ml Oral Liqd Unit Dose FEEDTUBE 650 mg Q6H PRN Administration Non Cardiac Pain or Temp>100.5 Bisacodyl 10 mg 03/15/22 10:00 Bisacodyl 5 Mg Tab PO QDAY PRN Constipation Famotidine 10 mg 03/22/22 10:00 03/22/22 22:09 Famotidine 10 Mg Tab FEEDTUBE 10 mg BID SHAHBAZ Administration Fentanyl 50 mcg 03/10/22 10:58 03/14/22 20:48 Fentanyl 100 Mcg/2 Ml Inj IV 50 mcg Q10MIN PRN Administration ANALGESIA Hydrophilic Ointment 1 applic 03/10/22 11:03 Lip Therapy Vaseline TP Q2HR PRN Dry Lips Fentanyl Citrate 2,000 mcg in 100 mls @ 4.16 mls/hr 03/10/22 11:00 03/23/22 08:07 Fentanyl Drip Premix IV 4 mcg/kg/hr TITR SHAHBAZ 16.64 mls/hr Administration Protocol 1 MCG/KG/HR NORepinephrine/NS 8 MG-250 ML 8 mg in 250 mls @ 3.75 mls/hr 03/10/22 11:00 03/22/22 17:15 Norepinephrine/Ns 8 Mg-250 Ml (Double Conc) IV 4 mcg/min TITRATE SHAHBAZ 7.5 mls/hr Titration Protocol 2 MCG/MIN Vasopressin 20 unit/ Sodium 101 mls @ 9.09 mls/hr 03/21/22 15:00 03/23/22 09:26 Chloride IV 0 units/min TITR SHAHBAZ 0 mls/hr Titration Protocol 0.03 UNITS/MIN Levofloxacin/Dextrose 750 mg in 150 mls @ 100 mls/hr 03/23/22 12:00 Levaquin 750mg/150ml IV 03/27/22 13:29 Q48H SHAHBAZ Protocol Heparin Sodium/Sodium Chloride 25,000 unit in 500 mls @ 24 mls/hr 03/22/22 09:00 03/23/22 08:09 Heparin/ 0.45% Nacl-25,000 Unit/500 Ml IV 1,000 units/hr TITR SHAHBAZ 20 mls/hr Administration Protocol 1,200 UNITS/HR Metronidazole 500 mg in 100 mls @ 100 mls/hr 03/22/22 09:00 03/23/22 08:09 Flagyl 500 Mg/100 Ml IV 100 mls/hr Q8H SHAHBAZ Administration Protocol Levetiracetam 500 mg 03/12/22 10:00 03/22/22 22:09 Levetiracetam 500 Mg/5 Ml Oral Liqd FEEDTUBE 500 mg BID SHAHBAZ Administration Magnesium Hydroxide 30 ml 03/10/22 02:56 Magnesium Hydroxide (Mom) Oral Liqd Udc PO Q4H PRN Constipation Midodrine 15 mg 03/21/22 16:00 03/23/22 08:06 Midodrine 5 Mg Tab PO 15 mg TID@0800,1200,1600 SHAHBAZ Administration Multi-Ingred Cream/Lotion/Oil/Oint 1 applic 03/10/22 11:03 Mineral Oil/Petrolatum, White Ophth Oint 3.5 Gm OU Q4HR PRN Dry Eye(s) Ondansetron HCl 4 mg 03/10/22 02:56 Ondansetron 4 Mg/2 Ml Inj IV Q8H PRN Nausea And Vomiting Scopolamine 1 each 03/21/22 10:00 03/21/22 10:28 Scopolamine Transdermal Patch 72 Hr TD 1 each Q3D SHAHBAZ Administration Sodium Chloride 10 ml 03/10/22 10:00 03/22/22 22:00 Sodium Chloride 0.9% 10 Ml Flush Syringe IV 10 ml BID SHAHBAZ Administration Sodium Chloride 10 ml 03/10/22 02:56 Sodium Chloride 0.9% 10 Ml Flush Syringe IV PRN PRN LINE FLUSH Vancomycin HCl 500 mg 03/22/22 12:00 03/23/22 06:10 Vancomycin 250 Mg/10 Ml Oral Liqd PO 500 mg Q6HR SHAHBAZ Administration Protocol
--- NOTE | 2022-03-23 10:26 | Progress Note ---
<KITTY MICHELLE - Last Filed: 03/23/22 17:26> Assessment and Plan Assessment and plan: This is a 61-year-old female with known past medical history of Multiple Sclerosis and seizure disorder admitted for sepsis, Hyponatremia, and acute hypoxic respiratory failure requiring ventilatory support Hospital Course to Date: 03/10: S/p intubation this am due to tachypnea and worsen mental status. Current sedated and stable on the vent. Patient is now on low dose Levophed gtt due to hypotension. Presented with a Na level of 119, on continuous NS at 125ml, repeat BMP pending. Continue IVF hydration and serial Na Q6hrs. Nephrology is also following. Continue empiric IV Abx for CAP, COVID PCR pending, ID consult pending. D-Dimer also elevated, BLE doppler ordered, therapeutic Lovenox initiated. D/W CCM patient is too unstable for transport at this time, possible CTA chest in the am or once patient is more stable. Cardiology was also consulted for elevated troponin X2, EKG noted with no significant ST changes, 2D echo pending. Resume home AEDs, continue seizure precautions. Monitor and repla ce electrolytes as needed 03/11: Intubated and low dose fentanyl gtt. Open eyes spontaneously but does not track, not following commands. NA level 132 this am, Nabcarb gtt initiated per Nephro. CT head/brain w/o con ordered to r/o intracranial abnormality. Wean off sedation to better assess mental status. Remains on Levophed gtt, afebrile, but with leukocytosis this am. This am CXR and ABG noted, with significant improvement. D/w CCM, PE less likely will hold off on CTA chest for now. Lovenox switched to Qday. Continue empiric IV Abx, ID consult pending. 03/12: Discontinue bicarb gtt, replete phos and potassium, added miralax. Remain on levo and fent gtt 03/13: MRI brain/C-spine completed, EEG completed. Hyponatremia improved, patient remains on Levophed. Had a temperature of 101.3 remains on cefepime. Will defer to ID for abx. Will reculture on next temperature spike. 03/14: Overnight patient had hypoxia issues and FiO2 was increased to 100%, received lasix with repeat dose in AM. Hypotension and increase in levophed. Replete K. 03/15: hypoxia overnight and currently on 100%. RN attempted to lay flat and patient desatted to 88%. Will attempt again later today. Given lasix again. Hopeful to be able to have MRI today. Type and screen today for downtrending h/h, Wean FiO2 as tolerated, repelted phos with sodium phos. 03/16: hypoxic, fio2: 80%, desats on positional movements. Remains on levophed gtt, attempting to wean off. Remains too unstable for MRI brain. May benefit f rom steroids if altered mentation believed to be from MS flare. 03/17: Hypoxic overnight. FIO2 increased to 95%. Continue icu level supportive care with vent, levophed Gtt, merrem. Hgb 6.6 this AM, ordered 1 unit prbc. 03/18: WBC uptrending, persisting fevers. will re-culture with urine cx, sputum cx and bcx. Overall poor prognosis. Will attempt GOK discussion with family. 03/19: With persistent episodes of hypoxia overnight and this am. On 65% Fio2 and peep of 14 this am. Fevers improved, but leukocytosis worsen this am. Repeat cultures pending, continue current IV Abx per ID. Patient remains on Levophed gtt. X1 dose of kayexalate this am for hyperkalemia, worsening azotemia also noted, Nephrology is also following. Overall poor prognosis, possible GOC discussion with patient's son sometimes this week. 03/20: Up to 80% Fio2 and peep of 14 this am, still with periods of hypoxia with mild stimuli/movement. Severe generalized edema today with worsening CXR. Azotemia worsen s/p bcarb gtt. D/w Nephro, X1 dose of IV lasix and 25% Albumin given and Midodrine TID added. Overal poor prognosis. Possible GOC discussion with patient's son sometimes this week. 03/21: Mentation unchanged, remains on high vent settings. Patient did not respond to IV lasix yesterday, only 415ml UOP in the last 24hrs. Renal function worsen this am with hyperkalemia, X1 dose of kayexalate ordered. Nephrology is also following. Continue to monitor renal function and electrolytes. Possible phone conference today with son by the attending. Very poor prognosis. 03/22: Remains on high vent setting, respiratory acidosis noted from recent ABG. Vent settings adjusted by CCM. Repeat ABG pending. With worsening renal function this am, additional Kayexalate given. Sudheer in WBCs this am despite IV Abx, now on 2 pressors, recent cultures with no growth to date. Flagyl and PO Vanco initiated empirically, C.Diff PCR pending. ID is also following. Heparin gtt also initiated per CCM, c/f for possible pulmonary shunting. Thorough discussion with patient's son and the attending yesterday in regards to patient's condition , overall poor prognosis, and goal of care. Patient's son wants all aggressive treatment and measures including trach and PEG at this time. Patient remains a FULL code status. 03/23: Condition is unchanged. Febrile this am with worsen leukocytosis. Back on merem, now on IV and PO vanco, Levaquin, and flagyl per ID. C.Diff PCR pending. ID recommendation noted. D/w CCM, plan for CT chest/Abd/Pelvis today. Assessment and Plan #Acute Hypoxemic Respiratory Failure #ARDS #Multifocal Pneumonia/CAP #C/f Pulmonary Shunting - Brought in from home by EMS due to SOB and difficulty breathing - SPO2 was in the 50s on RA, placed on CPAP. Then Bipap in the ED - Chest x-ray was concerning for multifocal pneumonia. - Patient intubated on 03/10 due to tachypnea and worsen mental - Now in ARDS, frequent desaturations and hypoxia overnight and this am - Vent setting: PRVC-80%,14,28, 400 - This am ABG noted - s/p X1 dose of Iv lasix with 25% Albumin administered - CCM consulted, appreciate recommendations - C/f pulmo shunting, Heparin gtt initiated - Continue empiric IV Abx - VAP bundle addressed - Aspiration precaution HOB above 30 - Daily SBT and SAT trials as tolerated - Daily ABG and CXR - Continue SPO2 monitoring for SPO2 goal above 92% #Hypotension 2/2 #Septic Shock #NSTEMI/Elevated Troponin #Elevated BNP - Presented with hypotension now on low dose pressors-Levophed - Positive troponin X2, EKG noted with no significant ST changed - BNP [id number] on admit - Now on 2 pressors, Levo and Vaso - Midodrine added TID - 2D Echo LVEF 50%, no pulmonary HTN. See report for details - With generalized pitting edema, s/p IV lasix X3days - s/p X1 dose of IV lasix with 25% Albumin given - Cardiology consulted, appreciated recommendations - Continue blood pressure monitor per protocol - Titrate pressor to maintain MAP above 65 - VTE phroph-Heparin gtt per protocol #Acute Kidney Injury(TANIYA) most likely ATN #Azotemia #Severe Hyponatremia- improved #Hypokalemia-resolved - Presented with a Na level of 119, Probably due to dehydration - Renal function continue to worsen, most likely due to hypoperfusion/hypotension - S/p IVF hydrationa and Bicarb gtt - S/p X3 dose of IV lasix, additional Lasix given yesterday- Unresponsive - Now oliguric - Nephrology consulted, appreciate recommendations - Patient is too unstable for iHD at this time due to high pressor requirements - Strict intake and output - Avoid nephrotoxic medications - Monitor and replace electrolytes as needed #Septic Shock #Multifocal Pneumonia/CAP #Leukocytosis #Diarrhea #Lactic Acidosis-resolved - Brought in from home by EMS due to SOB and difficulty breathing, Hypotensive, with elevated lactic acid, WBCs wnr - Chest x-ray was concerning for multifocal pneumonia - COVID PCR negative - UA with elevated Wbcs - urine and blood cultures with NGTD - CRP unremarkable, procal noted - Repeat Cultures with NGTD - ID consulted, appreciate recommendations - Worsening leukocytosis this am, now on 2 pressors - With frequent loose stools, however, patient did received X2 days of kayexalate for hyperkalemia - Completed Meropenem course - Back on merem, now on IV and PO vanco, Levaquin, and flagyl - PO Vanco and flagyl initiated, C.Diff PCR pending - F/U on cultures - Continue to CBC - CT chest/Abd/Pelvis pending #Acute Metabolic Encephalopathy #H/o Multiple Sclerosis and Seizure Disorder - Intubated and sedated, on fentanyl gtt - CT head shows vascular angioplasty without clear evidence of acute intracranial hemorrhage - MRI brain with and without contrast and MRI C-spine with and without contrast pending, patient is too unstable for transportation - EEG considered abnormal and is compatible with diffuse encephalopathy of perhaps significant brain sedation or neuro active medication or daily combination of both. Absence of epileptiform abnormality but would not rule out possibility of epilepsy - UDS (+) for opiates - Resumed home Jae - Neurology consulted, appreciate recommendations - Avoid benzodiazepine to reduce the possibility of delirium - Titrate sedation for RASS goal 0 to -1 - PRN Analgesia for CPOT greater than 3 - Maintenance of sleep-wake cycle - Seizure precaution #Elevated D-Dimer - COVID PCR negative - BLE Doppler negative DVT - on heparin gtt #Moderate Protein Calorie Malnutrition - DHT inserted - Initiated enteral nutrition - Nutrition consulted #GI/DVT Prophylaxis - PPI- Pepcid - Heparin gtt - SCDs to bilateral lower extremities while in bed #Advance Care Planning - Disease education data, care plan, diagnoses, and prognosis discussed with patient's son Homar Bailey #[phone]. All questions and concerns were addressed at this time. Patient's son acknowledged understanding and agreement with current care plan. Patient is a FULL code. - 03/21- Thorough discussion with patient's son and the attending yesterday in regards to patient's condition, overall poor prognosis, and goal of care. Patient's son wants all aggressive treatment and measures including trach and PEG at this time. Patient remains a FULL code status. The high probability of a clinically significant, sudden or life threatening deterioration of the [multiple] system(s) required my full and direct attention, intervention and personal management. The aggregate critical care time was [60] minutes. This time is in addition to time spent performing reported procedures but includes the following: [x] Data Review and interpretation [x] Patient assessment and monitoring of vital signs [x] Documentation [x] Medication orders and management Disposition Plan: ICU Total Time Spent with Patient (Minutes): 60 History Interval history: Patient seen and examined at the bedside. Intubated and sedated. Remain on high vent setting, 2 pressors and heparin gtt per CCM. C.diff PCR pending. Hospitalist Physical - Constitutional Vitals: Temp Pulse Resp BP Pulse Ox 100.3 F H 83 29 H 87/58 94 03/23/22 07:10 03/23/22 09:15 03/23/22 09:15 03/23/22 09:15 03/23/22 09:15 General appearance: Present: no acute distress, other (Intubated and Sedated) - EENT Eyes: Present: PERRL - Respiratory Respiratory effort: normal Respiratory: bilateral: rhonchi, wheezing - Cardiovascular Rhythm: regular Heart Sounds: Present: S1 & S2 - Extremities Extremities: no ischemia, pulses intact, pulses symmetrical Extremity abnormal: edema - Peripheral Assessment Generalized Edema Type: Pitting Edema Degree: 4+ Capillary Refill: < 3 seconds Skin Temperature: Warm Peripheral Pulses: within normal limits - Abdominal General gastrointestinal: soft, non-distended, normal bowel sounds - Integumentary Integumentary: Present: warm, dry - Psychiatric Psychiatric: other (Intubated and Sedated) - Neurologic Neurologic: other (Intubated and Sedated) - Allied Health Allied health notes reviewed: nursing, case management HEART Score - HEART Score Troponin: Troponin T 0.032 ng/mL (0.00-0.029) H D 03/10/22 12:24 Results - Labs CBC & Chem 7: 03/23/22 04:20 03/23/22 04:20 Labs: Laboratory Last Values WBC 37.3 K/mm3 (4.5-11.0) H 03/23/22 04:20 RBC 2.57 M/mm3 (3.65-5.03) L 03/23/22 04:20 Hgb 7.2 gm/dl (10.1-14.3) L 03/23/22 04:20 Hct 22.3 % (30.3-42.9) L 03/23/22 04:20 MCV 87 fl (79-97) 03/23/22 04:20 MCH 28 pg (28-32) 03/23/22 04:20 MCHC 32 % (30-34) 03/23/22 04:20 RDW 16.6 % (13.2-15.2) H 03/23/22 04:20 Plt Count 580 K/mm3 (140-440) H 03/23/22 04:20 Lymph % (Auto) 8.9 % (13.4-35.0) L 03/11/22 05:00 [place] % (Auto) 4.2 % (0.0-7.3) 03/11/22 05:00 Eos % (Auto) 0.1 % (0.0-4.3) 03/11/22 05:00 Baso % (Auto) 0.2 % (0.0-1.8) 03/11/22 05:00 Lymph # (Auto) 1.2 K/mm3 (1.2-5.4) 03/11/22 05:00 [place] # (Auto) 0.6 K/mm3 (0.0-0.8) 03/11/22 05:00 Eos # (Auto) 0.0 K/mm3 (0.0-0.4) 03/11/22 05:00 Baso # (Auto) 0.0 K/mm3 (0.0-0.1) 03/11/22 05:00 Add Manual Diff Complete 03/21/22 04:40 Total Counted 100 03/21/22 04:40 Seg Neutrophils % 86.6 % (40.0-70.0) H 03/11/22 05:00 Seg Neuts % (Manual) 71.0 % (40.0-70.0) H 03/21/22 04:40 Band Neutrophils % 12.0 % 03/21/22 04:40 Lymphocytes % (Manual) 2.0 % (13.4-35.0) L 03/21/22 04:40 Reactive Lymphs % (Man) 0 % 03/21/22 04:40 Monocytes % (Manual) 7.0 % (0.0-7.3) 03/21/22 04:40 Eosinophils % (Manual) 3.0 % (0.0-4.3) 03/21/22 04:40 Basophils % (Manual) 0 % (0.0-1.8) 03/21/22 04:40 Metamyelocytes % 3.0 % 03/21/22 04:40 Myelocytes % 0 % 03/21/22 04:40 Promyelocytes % 2.0 % 03/21/22 04:40 Blast Cells % 0 % 03/21/22 04:40 Nucleated RBC % 1.0 % (0.0-0.9) H 03/21/22 04:40 Seg Neutrophils # 11.8 K/mm3 (1.8-7.7) H 03/11/22 05:00 Seg Neutrophils # Man 18.2 K/mm3 (1.8-7.7) H 03/21/22 04:40 Band Neutrophils # 3.1 K/mm3 03/21/22 04:40 Lymphocytes # (Manual) 0.5 K/mm3 (1.2-5.4) L 03/21/22 04:40 Abs React Lymphs (Man) 0.0 K/mm3 03/21/22 04:40 Monocytes # (Manual) 1.8 K/mm3 (0.0-0.8) H 03/21/22 04:40 Eosinophils # (Manual) 0.8 K/mm3 (0.0-0.4) H 03/21/22 04:40 Basophils # (Manual) 0.0 K/mm3 (0.0-0.1) 03/21/22 04:40 Metamyelocytes # 0.8 K/mm3 03/21/22 04:40 Myelocytes # 0.0 K/mm3 03/21/22 04:40 Promyelocytes # 0.5 K/mm3 03/21/22 04:40 Blast Cells # 0.0 K/mm3 03/21/22 04:40 WBC Morphology Not Reportable 03/21/22 04:40 Hypersegmented Neuts Not Reportable 03/21/22 04:40 Hyposegmented Neuts Not Reportable 03/21/22 04:40 Hypogranular Neuts Not Reportable 03/21/22 04:40 Smudge Cells Not Reportable 03/21/22 04:40 Toxic Granulation Not Reportable 03/21/22 04:40 Toxic Vacuolation Not Reportable 03/21/22 04:40 Dohle Bodies Not Reportable 03/21/22 04:40 Pelger-Huet Anomaly Not Reportable 03/21/22 04:40 Luis Rods Not Reportable 03/21/22 04:40 Platelet Estimate Consistent w auto 03/21/22 04:40 Clumped Platelets Not Reportable 03/21/22 04:40 Plt Clumps, EDTA Not Reportable 03/21/22 04:40 Large Platelets Few 03/21/22 04:40 Giant Platelets Not Reportable 03/21/22 04:40 Platelet Satelliting Not Reportable 03/21/22 04:40 Plt Morphology Comment Not Reportable 03/21/22 04:40 RBC Morphology Not Reportable 03/21/22 04:40 Dimorphic RBCs Not Reportable 03/21/22 04:40 Polychromasia Not Reportable 03/21/22 04:40 Hypochromasia 3+ 03/21/22 04:40 Poikilocytosis Not Reportable 03/21/22 04:40 Anisocytosis 1+ 03/21/22 04:40 Microcytosis 1+ 03/21/22 04:40 Macrocytosis Not Reportable 03/21/22 04:40 Spherocytes Not Reportable 03/21/22 04:40 Pappenheimer Bodies Not Reportable 03/21/22 04:40 Sickle Cells Not Reportable 03/21/22 04:40 Target Cells Rare 03/21/22 04:40 Tear Drop Cells Few 03/21/22 04:40 Ovalocytes 1+ 03/21/22 04:40 Helmet Cells Not Reportable 03/21/22 04:40 [place] Bodies Not Reportable 03/21/22 04:40 [place] Rings Not Reportable 03/21/22 04:40 Rudy Cells Not Reportable 03/21/22 04:40 Bite Cells Not Reportable 03/21/22 04:40 Crenated Cell Not Reportable 03/21/22 04:40 Elliptocytes Few 03/21/22 04:40 Acanthocytes (Spur) Not Reportable 03/21/22 04:40 Rouleaux Not Reportable 03/21/22 04:40 Hemoglobin C Crystals Not Reportable 03/21/22 04:40 Schistocytes Few 03/21/22 04:40 Malaria parasites Not Reportable 03/21/22 04:40 Tani Bodies Not Reportable 03/21/22 04:40 Hem Pathologist Commnt No 03/21/22 04:40 PT 17.2 Sec. (12.2-14.9) H 03/22/22 09:30 INR 1.25 (0.87-1.13) H 03/22/22 09:30 APTT 33.4 Sec. (24.2-36.6) 03/22/22 09:30 D-Dimer 787.78 ng/mlDDU (0-234) H 03/10/22 05:45 Heparin Anti-Xa Level 0.29 U.I./ml (0.3-0.7) L 03/23/22 07:25 ABG pH 7.333 pH Units (7.350-7.450) L 03/23/22 04:25 ABG pCO2 39.4 mm Hg 03/23/22 04:25 ABG pO2 70.9 mm Hg (80.0-90.0) L 03/23/22 04:25 ABG HCO3 20.5 mmol/L (20.0-26.0) 03/23/22 04:25 ABG O2 Saturation 93.3 % (95.0-99.0) L 03/23/22 04:25 ABG O2 Content 9.1 (0.0-44) 03/23/22 04:25 ABG Base Excess -5.0 mmol/L (-2.0-3.0) L 03/23/22 04:25 ABG Hemoglobin 7.0 gm/dl (12.0-16.0) L 03/23/22 04:25 ABG Carboxyhemoglobin 1.8 % (0.0-5.0) 03/23/22 04:25 ABG Methemoglobin 0.4 % (0.0-1.5) 03/23/22 04:25 Oxyhemoglobin 91.2 % (95.0-99.0) L 03/23/22 04:25 FiO2 80 % 03/23/22 04:25 Sodium 139 mmol/L (137-145) 03/23/22 04:20 Potassium 5.0 mmol/L (3.6-5.0) 03/23/22 04:20 Chloride 98.4 mmol/L (98-107) 03/23/22 04:20 Carbon Dioxide 19 mmol/L (22-30) L 03/23/22 04:20 Anion Gap 27 mmol/L 03/23/22 04:20 BUN 125 mg/dL (7-17) H 03/23/22 04:20 Creatinine 1.9 mg/dL (0.6-1.2) H 03/23/22 04:20 Estimated GFR 27 ml/min 03/23/22 04:20 BUN/Creatinine Ratio 66 % 03/23/22 04:20 Glucose 133 mg/dL (65-100) H 03/23/22 04:20 POC Glucose 121 mg/dL (70-105) H 03/23/22 05:40 Osmolality 285 Mosm/kg 03/10/22 12:24 Lactic Acid 0.90 mmol/L (0.7-2.0) 03/18/22 05:20 Uric Acid 1.6 mg/dL (3.5-7.6) L 03/10/22 13:15 Calcium 8.2 mg/dL (8.4-10.2) L 03/23/22 04:20 Phosphorus 3.70 mg/dL (2.5-4.5) 03/18/22 05:20 Magnesium 2.00 mg/dL (1.7-2.3) 03/18/22 05:20 Ferritin 219.2 ng/mL (10.0-200.0) H 03/10/22 05:45 Total Bilirubin 0.30 mg/dL (0.1-1.2) 03/18/22 05:20 AST 39 units/L (5-40) 03/18/22 05:20 ALT 14 units/L (7-56) 03/18/22 05:20 Alkaline Phosphatase 119 units/L (35-129) 03/18/22 05:20 Lactate Dehydrogenase 210 units/L (91-180) H 03/10/22 05:45 Total Creatine Kinase 901 units/L (30-135) H 03/10/22 12:24 CK-MB (CK-2) 15.3 ng/mL (0.0-4.0) H 03/10/22 12:24 CK-MB (CK-2) Rel Index 1.6 (0-4) 03/10/22 12:24 Troponin T 0.032 ng/mL (0.00-0.029) H D 03/10/22 12:24 C-Reactive Protein < 0.03 mg/dL (0.00-1.30) 03/10/22 05:45 NT-Pro-B Natriuret Pep 49794 pg/mL (0-900) H 03/10/22 01:25 Total Protein 5.4 g/dL (6.3-8.2) L 03/18/22 05:20 Albumin 2.0 g/dL (3.9-5) L 03/18/22 05:20 Albumin/Globulin Ratio 0.6 % 03/18/22 05:20 Prealbumin 0.044 g/L (0.200-0.400) L 03/12/22 18:40 Triglycerides 47 mg/dL (2-149) 03/10/22 01:25 Cholesterol 259 mg/dL (50-199) H 03/10/22 01:25 LDL Cholesterol Direct 187 mg/dL (50-130) H 03/10/22 01:25 HDL Cholesterol 63 mg/dL (40-59) H 03/10/22 01:25 Cholesterol/HDL Ratio 4.11 % 03/10/22 01:25 Lipase 15 units/L (13-60) 03/10/22 01:25 Vitamin B1 28 nmol/L (8-30) 03/13/22 08:00 Vitamin B12 1021 pg/mL (211-911) H 03/12/22 18:40 Folate 2.15 ng/mL (7.3-26.0) L 03/12/22 18:40 Procalcitonin 3.92 ng/mL (<0.15) 03/10/22 05:45 TSH 1.290 mlU/mL (0.270-4.200) 03/12/22 18:40 Urine Color Yellow (Yellow) 03/10/22 18:20 Urine Turbidity Clear (Clear) 03/10/22 18:20 Urine pH 6.0 (5.0-7.0) 03/10/22 18:20 Ur Specific [place] 1.010 (1.003-1.030) 03/10/22 18:20 Urine Protein <15 mg/dl mg/dL (Negative) 03/10/22 18:20 Urine Glucose (UA) Neg mg/dL (Negative) 03/10/22 18:20 Urine Ketones Tr mg/dL (Negative) 03/10/22 18:20 Urine Blood Sm (Negative) 03/10/22 18:20 Urine Nitrite Neg (Negative) 03/10/22 18:20 Urine Bilirubin Neg (Negative) 03/10/22 18:20 Urine Urobilinogen < 2.0 mg/dL (<2.0) 03/10/22 18:20 Ur Leukocyte Esterase Lg (Negative) 03/10/22 18:20 Urine WBC (Auto) 105.0 /HPF (0.0-6.0) H 03/10/22 18:20 Urine RBC (Auto) 2.0 /HPF (0.0-6.0) 03/10/22 18:20 U Epithel Cells (Auto) < 1.0 /HPF (0-13.0) 03/10/22 18:20 Urine Bacteria (Auto) 1+ /HPF (Negative) 03/10/22 18:20 Urine Osmolality 368 Mosm/kg 03/10/22 18:20 Urine Creatinine 34.4 mg/dL (0.1-20.0) H 03/19/22 14:40 Urine Sodium 18 mmol/L 03/19/22 14:40 Urine Opiates Screen Presumptive positive 03/10/22 18:20 Urine Methadone Screen Presumptive negative 03/10/22 18:20 Ur Barbiturates Screen Presumptive negative 03/10/22 18:20 Ur Phencyclidine Scrn Presumptive negative 03/10/22 18:20 Ur Amphetamines Screen Presumptive negative 03/10/22 18:20 U Benzodiazepines Scrn Presumptive negative 03/10/22 18:20 Urine Cocaine Screen Presumptive negative 03/10/22 18:20 U Marijuana (THC) Screen Presumptive negative 03/10/22 18:20 Drugs of Abuse Note Disclamer 03/10/22 18:20 Copper 118 mcg/dL (70-175) 03/12/22 18:40 Syphilis IgG/IgM Ab Nonreactive (NonReactive) 03/12/22 18:40 SARS-CoV-2 (PCR) Negative (Negative) 03/10/22 09:50 Blood Type O POSITIVE 03/15/22 09:42 Antibody Screen Negative 03/15/22 09:42 Crossmatch See Detail 03/15/22 09:42 Microbiology: Microbiology 03/18/22 15:12 Peripheral/Venous Blood Culture - Preliminary NO GROWTH AFTER 4 DAYS 03/18/22 15:12 Peripheral/Venous Blood Culture - Preliminary NO GROWTH AFTER 4 DAYS 03/18/22 17:40 Tracheal Aspirate Sputum Culture - Final [place]/IV: Voiding Method Indwelling Catheter Active Medications - Current Medications Current Medications: Generic Name Dose Route Start Last Admin Trade Name Freq PRN Reason Stop Dose Admin Acetaminophen 650 mg 03/13/22 05:50 03/19/22 18:38 Acetaminophen 325 Mg/10.15 Ml Oral Liqd Unit Dose FEEDTUBE 650 mg Q6H PRN Administration Non Cardiac Pain or Temp>100.5 Bisacodyl 10 mg 03/15/22 10:00 Bisacodyl 5 Mg Tab PO QDAY PRN Constipation Famotidine 10 mg 03/22/22 10:00 03/22/22 22:09 Famotidine 10 Mg Tab FEEDTUBE 10 mg BID SHAHBAZ Administration Fentanyl 50 mcg 03/10/22 10:58 03/14/22 20:48 Fentanyl 100 Mcg/2 Ml Inj IV 50 mcg Q10MIN PRN Administration ANALGESIA Hydrophilic Ointment 1 applic 03/10/22 11:03 Lip Therapy Vaseline TP Q2HR PRN Dry Lips Fentanyl Citrate 2,000 mcg in 100 mls @ 4.16 mls/hr 03/10/22 11:00 03/23/22 10:17 Fentanyl Drip Premix IV 3 mcg/kg/hr TITR SHAHBAZ 12.48 mls/hr Titration Protocol 1 MCG/KG/HR NORepinephrine/NS 8 MG-250 ML 8 mg in 250 mls @ 3.75 mls/hr 03/10/22 11:00 03/23/22 10:20 Norepinephrine/Ns 8 Mg-250 Ml (Double Conc) IV 5 mcg/min TITRATE SHAHBAZ 9.375 mls/hr Titration Protocol 2 MCG/MIN Vasopressin 20 unit/ Sodium 101 mls @ 9.09 mls/hr 03/21/22 15:00 03/23/22 09:26 Chloride IV 0 units/min TITR SHAHBAZ 0 mls/hr Titration Protocol 0.03 UNITS/MIN Levofloxacin/Dextrose 750 mg in 150 mls @ 100 mls/hr 03/23/22 12:00 Levaquin 750mg/150ml IV 03/27/22 13:29 Q48H SHAHBAZ Protocol Heparin Sodium/Sodium Chloride 25,000 unit in 500 mls @ 24 mls/hr 03/22/22 09:00 03/23/22 08:09 Heparin/ 0.45% Nacl-25,000 Unit/500 Ml IV 1,000 units/hr TITR SHAHBAZ 20 mls/hr Administration Protocol 1,200 UNITS/HR Metronidazole 500 mg in 100 mls @ 100 mls/hr 03/22/22 09:00 03/23/22 08:09 Flagyl 500 Mg/100 Ml IV 100 mls/hr Q8H SHAHBAZ Administration Protocol Levetiracetam 500 mg 03/12/22 10:00 03/22/22 22:09 Levetiracetam 500 Mg/5 Ml Oral Liqd FEEDTUBE 500 mg BID SHAHBAZ Administration Magnesium Hydroxide 30 ml 03/10/22 02:56 Magnesium Hydroxide (Mom) Oral Liqd Udc PO Q4H PRN Constipation Midodrine 15 mg 03/21/22 16:00 03/23/22 08:06 Midodrine 5 Mg Tab PO 15 mg TID@0800,1200,1600 SHAHBAZ Administration Multi-Ingred Cream/Lotion/Oil/Oint 1 applic 03/10/22 11:03 Mineral Oil/Petrolatum, White Ophth Oint 3.5 Gm OU Q4HR PRN Dry Eye(s) Ondansetron HCl 4 mg 03/10/22 02:56 Ondansetron 4 Mg/2 Ml Inj IV Q8H PRN Nausea And Vomiting Scopolamine 1 each 03/21/22 10:00 03/21/22 10:28 Scopolamine Transdermal Patch 72 Hr TD 1 each Q3D SHAHBAZ Administration Sodium Chloride 10 ml 03/10/22 10:00 03/22/22 22:00 Sodium Chloride 0.9% 10 Ml Flush Syringe IV 10 ml BID SHAHBAZ Administration Sodium Chloride 10 ml 03/10/22 02:56 Sodium Chloride 0.9% 10 Ml Flush Syringe IV PRN PRN LINE FLUSH Vancomycin HCl 500 mg 03/22/22 12:00 03/23/22 06:10 Vancomycin 250 Mg/10 Ml Oral Liqd PO 500 mg Q6HR SHAHBAZ Administration Protocol Nutrition/Malnutrition Assess - Dietary Evaluation Nutrition/Malnutrition Findings: Nutrition Notes Start: 03/10/22 12:22 Freq: Status: Active Protocol: Document 03/21/22 15:08 JOSH (Rec: 03/21/22 15:18 JOSH [email or web address]) Nutrition Notes Initial or Follow up Reassessment Current Diagnosis Hypertension,Respiratory Failure,Malnutrition Other Pertinent Diagnosis MS, CAP, Seizure, Metabolic Encephalopathy, Septic Shock, NSTEMI, UTI ... Current Diet TF-Vital AF 1.2 En @ 60 ml/hr (since D 03/10). Labs/Tests 03/21: Na 135, K 5.7, Cl 97.4, CO2 21, BUN 104, Crea 1.3, Glu 118. Pertinent Medications 03/21: Vasopressin 20U, others nutritionally unremarkable. Height 5 ft 6 in Weight 83.2 kg [place] Body Weight (kg) 59.09 BMI 29.6 Weight change and time frame No body weight change reported in 11 days. Weight Status Overweight Subjective/Other Information RD consult for routine F/U on TF tolerance/continuation. TF continues as prescribed, and well tolerated, according to RN notes. Pt remains on Mechanical Ventilation, O2 saturation @ 96%, according to Physical Assessment History notes. Pt presents bilateral-LE pitting edema 3+, according to Physical Assessment History notes. Pt presents an unspecified area of concern for skin risk at the time, according to Physical Assessment History notes. Percent of energy/protein needs met: Prescribed TF-Vital AF 1.2 En @ 60 ml/hr provides for energy/protein needs (1,728 Kcal/108 g) during LOS, 100% Kcal; 100% AA. Burn Absent Trauma Absent GI Symptoms None Food Allergy No Skin Integrity/Comment Unspecified area of concern. Current % PO Other Minimum of two criteria No Fluid Accumulation Moderate to Severe (severe) Reduced [employer] Strength N/A (non-severe) Protein-Calorie Malnutrition N\A #1 Nutrition Diagnosis Inadequate oral intake Diagnosis Progress(for reassessment Continues documentation) Is patient on ventilator? Yes Is Patient Ambulatory and/or Out of Bed No REE-([facility]-confined to bed) 1713.168 Calculation Used for Recommendations [facility] Additional Notes Protein: 1-1.2 g/Kg ABW; 100- 166 g/day. Fluids: 1 ml/Kcal, or as per MD. Nutrition Intervention Nutrition Support: Continue TF-Vital AF 1.2 En @ 60 ml/hr. Flush: 100 ml water Q 4 hr, or as per MD. Kcal 1,728 Protein (gm) 108 Carbohydrates (gm) 159 Fat (gm) 78 Fluid (mL) 1,168 Fiber (gm) 7 % RDI: 100% Kcal; 100% AA. Goal #1 Provide at least 75% of energy /protein needs through Enteral Feeding during LOS. Follow-Up By: 03/28/22 Additional Comments Continue monitoring TF tolerance, Ventilation Status, Pressor support, and BM. <JESUS ARECHIGA E - Last Filed: 03/27/22 07:20> Assessment and Plan Assessment and plan: I saw and evaluated the patient. I agree with the findings and the plan of care as documented in the Nurse Practitioner's~note, with the following corrections and additions. Hospitalist Physical - Constitutional Vitals: Temp Pulse Resp BP Pulse Ox 97.4 F L 66 30 H 102/64 94 03/27/22 03:39 03/27/22 06:00 03/27/22 06:00 03/27/22 06:00 03/27/22 06:00 HEART Score - HEART Score Troponin: Troponin T 0.032 ng/mL (0.00-0.029) H D 03/10/22 12:24 Results - Labs CBC & Chem 7: 03/27/22 05:17 03/27/22 05:07 Labs: Laboratory Last Values WBC 45.6 K/mm3 (4.5-11.0) H* 03/27/22 05:17 RBC 2.69 M/mm3 (3.65-5.03) L 03/27/22 05:17 Hgb 7.6 gm/dl (10.1-14.3) L 03/27/22 05:17 Hct 24.1 % (30.3-42.9) L 03/27/22 05:17 MCV 90 fl (79-97) 03/27/22 05:17 MCH 28 pg (28-32) 03/27/22 05:17 MCHC 31 % (30-34) 03/27/22 05:17 RDW 17.9 % (13.2-15.2) H 03/27/22 05:17 Plt Count 511 K/mm3 (140-440) H 03/27/22 05:17 Lymph % (Auto) 8.9 % (13.4-35.0) L 03/11/22 05:00 [place] % (Auto) 4.2 % (0.0-7.3) 03/11/22 05:00 Eos % (Auto) 0.1 % (0.0-4.3) 03/11/22 05:00 Baso % (Auto) 0.2 % (0.0-1.8) 03/11/22 05:00 Lymph # (Auto) 1.2 K/mm3 (1.2-5.4) 03/11/22 05:00 [place] # (Auto) 0.6 K/mm3 (0.0-0.8) 03/11/22 05:00 Eos # (Auto) 0.0 K/mm3 (0.0-0.4) 03/11/22 05:00 Baso # (Auto) 0.0 K/mm3 (0.0-0.1) 03/11/22 05:00 Add Manual Diff Complete 03/26/22 03:30 Total Counted 200 03/26/22 03:30 Seg Neutrophils % 86.6 % (40.0-70.0) H 03/11/22 05:00 Seg Neuts % (Manual) 81.0 % (40.0-70.0) H 03/26/22 03:30 Band Neutrophils % 0.5 % 03/26/22 03:30 Lymphocytes % (Manual) 6.5 % (13.4-35.0) L 03/26/22 03:30 Reactive Lymphs % (Man) 1.0 % 03/26/22 03:30 Monocytes % (Manual) 7.0 % (0.0-7.3) 03/26/22 03:30 Eosinophils % (Manual) 3.5 % (0.0-4.3) 03/26/22 03:30 Basophils % (Manual) 0.5 % (0.0-1.8) 03/26/22 03:30 Metamyelocytes % 0 % 03/26/22 03:30 Myelocytes % 0 % 03/26/22 03:30 Promyelocytes % 0 % 03/26/22 03:30 Blast Cells % 0 % 03/26/22 03:30 Nucleated RBC % 11.0 % (0.0-0.9) H 03/26/22 03:30 Seg Neutrophils # 11.8 K/mm3 (1.8-7.7) H 03/11/22 05:00 Seg Neutrophils # Man 32.2 K/mm3 (1.8-7.7) H 03/26/22 03:30 Band Neutrophils # 0.2 K/mm3 03/26/22 03:30 Lymphocytes # (Manual) 2.6 K/mm3 (1.2-5.4) 03/26/22 03:30 Abs React Lymphs (Man) 0.4 K/mm3 03/26/22 03:30 Monocytes # (Manual) 2.8 K/mm3 (0.0-0.8) H 03/26/22 03:30 Eosinophils # (Manual) 1.4 K/mm3 (0.0-0.4) H 03/26/22 03:30 Basophils # (Manual) 0.2 K/mm3 (0.0-0.1) H 03/26/22 03:30 Metamyelocytes # 0.0 K/mm3 03/26/22 03:30 Myelocytes # 0.0 K/mm3 03/26/22 03:30 Promyelocytes # 0.0 K/mm3 03/26/22 03:30 Blast Cells # 0.0 K/mm3 03/26/22 03:30 WBC Morphology Not Reportable 03/26/22 03:30 Hypersegmented Neuts Not Reportable 03/26/22 03:30 Hyposegmented Neuts Not Reportable 03/26/22 03:30 Hypogranular Neuts Not Reportable 03/26/22 03:30 Smudge Cells Not Reportable 03/26/22 03:30 Toxic Granulation Not Reportable 03/26/22 03:30 Toxic Vacuolation Not Reportable 03/26/22 03:30 Dohle Bodies Not Reportable 03/26/22 03:30 Pelger-Huet Anomaly Not Reportable 03/26/22 03:30 Luis Rods Not Reportable 03/26/22 03:30 Platelet Estimate Consistent w auto 03/26/22 03:30 Clumped Platelets Not Reportable 03/26/22 03:30 Plt Clumps, EDTA Not Reportable 03/26/22 03:30 Large Platelets Not Reportable 03/26/22 03:30 Giant Platelets Not Reportable 03/26/22 03:30 Platelet Satelliting Not Reportable 03/26/22 03:30 Plt Morphology Comment Not Reportable 03/26/22 03:30 RBC Morphology Not Reportable 03/26/22 03:30 Dimorphic RBCs Not Reportable 03/26/22 03:30 Polychromasia Not Reportable 03/26/22 03:30 Hypochromasia 1+ 03/26/22 03:30 Poikilocytosis Not Reportable 03/26/22 03:30 Anisocytosis 1+ 03/26/22 03:30 Microcytosis Not Reportable 03/26/22 03:30 Macrocytosis Not Reportable 03/26/22 03:30 Spherocytes Not Reportable 03/26/22 03:30 Pappenheimer Bodies Not Reportable 03/26/22 03:30 Sickle Cells Not Reportable 03/26/22 03:30 Target Cells Not Reportable 03/26/22 03:30 Tear Drop Cells Not Reportable 03/26/22 03:30 Ovalocytes Not Reportable 03/26/22 03:30 Helmet Cells Not Reportable 03/26/22 03:30 [place] Bodies Not Reportable 03/26/22 03:30 [place] Rings Not Reportable 03/26/22 03:30 Rudy Cells Not Reportable 03/26/22 03:30 Bite Cells Not Reportable 03/26/22 03:30 Crenated Cell Not Reportable 03/26/22 03:30 Elliptocytes Not Reportable 03/26/22 03:30 Acanthocytes (Spur) Not Reportable 03/26/22 03:30 Rouleaux Not Reportable 03/26/22 03:30 Hemoglobin C Crystals Not Reportable 03/26/22 03:30 Schistocytes Not Reportable 03/26/22 03:30 Malaria parasites Not Reportable 03/26/22 03:30 Tani Bodies Not Reportable 03/26/22 03:30 Hem Pathologist Commnt No 03/26/22 03:30 PT 17.2 Sec. (12.2-14.9) H 03/22/22 09:30 INR 1.25 (0.87-1.13) H 03/22/22 09:30 APTT 33.4 Sec. (24.2-36.6) 03/22/22 09:30 D-Dimer 787.78 ng/mlDDU (0-234) H 03/10/22 05:45 Heparin Anti-Xa Level 0.25 U.I./ml (0.3-0.7) L 03/27/22 05:17 ABG pH 7.304 pH Units (7.350-7.450) L 03/27/22 02:56 ABG pCO2 35.4 mm Hg 03/27/22 02:56 ABG pO2 93.0 mm Hg (80.0-90.0) H 03/27/22 02:56 ABG HCO3 17.2 mmol/L (20.0-26.0) L 03/27/22 02:56 ABG O2 Saturation 96.7 % (95.0-99.0) 03/27/22 02:56 ABG O2 Content 10.4 (0.0-44) 03/25/22 22:35 ABG Base Excess -8.4 mmol/L (-2.0-3.0) L 03/27/22 02:56 ABG Hemoglobin 8.3 gm/dl (12.0-16.0) L 03/27/22 02:56 ABG Carboxyhemoglobin 1.5 % (0.0-5.0) 03/27/22 02:56 ABG Methemoglobin 0.3 % (0.0-1.5) 03/27/22 02:56 Oxyhemoglobin 95.0 % (95.0-99.0) 03/27/22 02:56 FiO2 90 % 03/27/22 02:56 Sodium 136 mmol/L (137-145) L 03/27/22 05:07 Potassium 4.3 mmol/L (3.6-5.0) 03/27/22 05:07 Chloride 93.8 mmol/L (98-107) L 03/27/22 05:07 Carbon Dioxide 17 mmol/L (22-30) L 03/27/22 05:07 Anion Gap 30 mmol/L 03/27/22 05:07 BUN 141 mg/dL (7-17) H 03/27/22 05:07 Creatinine 2.3 mg/dL (0.6-1.2) H 03/27/22 05:07 Estimated GFR 22 ml/min 03/27/22 05:07 BUN/Creatinine Ratio 61 % 03/27/22 05:07 Glucose 164 mg/dL (65-100) H 03/27/22 05:07 POC Glucose 136 mg/dL (70-105) H 03/26/22 23:39 Osmolality 285 Mosm/kg 03/10/22 12:24 Lactic Acid 0.90 mmol/L (0.7-2.0) 03/18/22 05:20 Uric Acid 1.6 mg/dL (3.5-7.6) L 03/10/22 13:15 Calcium 7.4 mg/dL (8.4-10.2) L 03/27/22 05:07 Phosphorus 12.40 mg/dL (2.5-4.5) H 03/27/22 05:07 Magnesium 1.80 mg/dL (1.7-2.3) 03/27/22 05:07 Ferritin 219.2 ng/mL (10.0-200.0) H 03/10/22 05:45 Total Bilirubin 0.20 mg/dL (0.1-1.2) 03/27/22 05:07 AST 54 units/L (5-40) H 03/27/22 05:07 ALT 14 units/L (7-56) 03/27/22 05:07 Alkaline Phosphatase 175 units/L (35-129) H 03/27/22 05:07 Lactate Dehydrogenase 210 units/L (91-180) H 03/10/22 05:45 Total Creatine Kinase 901 units/L (30-135) H 03/10/22 12:24 CK-MB (CK-2) 15.3 ng/mL (0.0-4.0) H 03/10/22 12:24 CK-MB (CK-2) Rel Index 1.6 (0-4) 03/10/22 12:24 Troponin T 0.032 ng/mL (0.00-0.029) H D 03/10/22 12:24 C-Reactive Protein < 0.03 mg/dL (0.00-1.30) 03/10/22 05:45 NT-Pro-B Natriuret Pep 52207 pg/mL (0-900) H 03/10/22 01:25 Total Protein 4.9 g/dL (6.3-8.2) L 03/27/22 05:07 Albumin 2.1 g/dL (3.9-5) L 03/27/22 05:07 Albumin/Globulin Ratio 0.8 % 03/27/22 05:07 Prealbumin 0.044 g/L (0.200-0.400) L 03/12/22 18:40 Triglycerides 47 mg/dL (2-149) 03/10/22 01:25 Cholesterol 259 mg/dL (50-199) H 03/10/22 01:25 LDL Cholesterol Direct 187 mg/dL (50-130) H 03/10/22 01:25 HDL Cholesterol 63 mg/dL (40-59) H 03/10/22 01:25 Cholesterol/HDL Ratio 4.11 % 03/10/22 01:25 Lipase 15 units/L (13-60) 03/10/22 01:25 Vitamin B1 28 nmol/L (8-30) 03/13/22 08:00 Vitamin B12 1021 pg/mL (211-911) H 03/12/22 18:40 Folate 2.15 ng/mL (7.3-26.0) L 03/12/22 18:40 Procalcitonin 3.92 ng/mL (<0.15) 03/10/22 05:45 TSH 1.290 mlU/mL (0.270-4.200) 03/12/22 18:40 Urine Color Yellow (Yellow) 03/10/22 18:20 Urine Turbidity Clear (Clear) 03/10/22 18:20 Urine pH 6.0 (5.0-7.0) 03/10/22 18:20 Ur Specific [place] 1.010 (1.003-1.030) 03/10/22 18:20 Urine Protein <15 mg/dl mg/dL (Negative) 03/10/22 18:20 Urine Glucose (UA) Neg mg/dL (Negative) 03/10/22 18:20 Urine Ketones Tr mg/dL (Negative) 03/10/22 18:20 Urine Blood Sm (Negative) 03/10/22 18:20 Urine Nitrite Neg (Negative) 03/10/22 18:20 Urine Bilirubin Neg (Negative) 03/10/22 18:20 Urine Urobilinogen < 2.0 mg/dL (<2.0) 03/10/22 18:20 Ur Leukocyte Esterase Lg (Negative) 03/10/22 18:20 Urine WBC (Auto) 105.0 /HPF (0.0-6.0) H 03/10/22 18:20 Urine RBC (Auto) 2.0 /HPF (0.0-6.0) 03/10/22 18:20 U Epithel Cells (Auto) < 1.0 /HPF (0-13.0) 03/10/22 18:20 Urine Bacteria (Auto) 1+ /HPF (Negative) 03/10/22 18:20 Urine Osmolality 368 Mosm/kg 03/10/22 18:20 Urine Creatinine 34.4 mg/dL (0.1-20.0) H 03/19/22 14:40 Urine Sodium 18 mmol/L 03/19/22 14:40 Random Vancomycin 24.4 ug/mL (0-40.0) 03/26/22 03:30 Urine Opiates Screen Presumptive positive 03/10/22 18:20 Urine Methadone Screen Presumptive negative 03/10/22 18:20 Ur Barbiturates Screen Presumptive negative 03/10/22 18:20 Ur Phencyclidine Scrn Presumptive negative 03/10/22 18:20 Ur Amphetamines Screen Presumptive negative 03/10/22 18:20 U Benzodiazepines Scrn Presumptive negative 03/10/22 18:20 Urine Cocaine Screen Presumptive negative 03/10/22 18:20 U Marijuana (THC) Screen Presumptive negative 03/10/22 18:20 Drugs of Abuse Note Disclamer 03/10/22 18:20 Copper 118 mcg/dL (70-175) 03/12/22 18:40 Syphilis IgG/IgM Ab Nonreactive (NonReactive) 03/12/22 18:40 C. difficile Tox (PCR) Positive (Negative) 03/23/22 06:30 SARS-CoV-2 (PCR) Negative (Negative) 03/10/22 09:50 Blood Type O POSITIVE 03/15/22 09:42 Antibody Screen Negative 03/15/22 09:42 Crossmatch See Detail 03/15/22 09:42 [place]/IV: Voiding Method Incontinent Active Medications - Current Medications Current Medications: Generic Name Dose Route Start Last Admin Trade Name Freq PRN Reason Stop Dose Admin Acetaminophen 650 mg 03/13/22 05:50 03/19/22 18:38 Acetaminophen 325 Mg/10.15 Ml Oral Liqd Unit Dose FEEDTUBE 650 mg Q6H PRN Administration Non Cardiac Pain or Temp>100.5 Famotidine 20 mg 03/26/22 10:00 03/26/22 09:59 Famotidine 20 Mg/2 Ml Inj IV 20 mg QDAY SHAHBAZ Administration Fentanyl 50 mcg 03/10/22 10:58 03/14/22 20:48 Fentanyl 100 Mcg/2 Ml Inj IV 50 mcg Q10MIN PRN Administration ANALGESIA Hydrocortisone Sodium Succinate 100 mg 03/26/22 10:00 03/27/22 02:02 Hydrocortisone Sod Succ 100 Mg/2 Ml Vial IV 03/31/22 02:01 100 mg Q8H SHAHBAZ Administration Hydrophilic Ointment 1 applic 03/10/22 11:03 Lip Therapy Vaseline TP Q2HR PRN Dry Lips Fentanyl Citrate 2,000 mcg in 100 mls @ 4.16 mls/hr 03/10/22 11:00 03/26/22 22:54 Fentanyl Drip Premix IV 3 mcg/kg/hr TITR SHAHBAZ 12.48 mls/hr Administration Protocol 1 MCG/KG/HR NORepinephrine/NS 8 MG-250 ML 8 mg in 250 mls @ 3.75 mls/hr 03/10/22 11:00 03/27/22 03:53 Norepinephrine/Ns 8 Mg-250 Ml (Double Conc) IV 6 mcg/min TITRATE SHAHBAZ 11.25 mls/hr Administration Protocol 2 MCG/MIN Vasopressin 20 unit/ Sodium 101 mls @ 9.09 mls/hr 03/21/22 15:00 03/27/22 03:53 Chloride IV 0.03 units/min TITR SHAHBAZ 9.09 mls/hr Administration Protocol 0.03 UNITS/MIN Heparin Sodium/Sodium Chloride 25,000 unit in 500 mls @ 24 mls/hr 03/22/22 09:00 03/26/22 10:40 Heparin/ 0.45% Nacl-25,000 Unit/500 Ml IV 1,000 units/hr TITR SHAHBAZ 20 mls/hr Administration Protocol 1,200 UNITS/HR Metronidazole 500 mg in 100 mls @ 100 mls/hr 03/22/22 09:00 03/27/22 00:45 Flagyl 500 Mg/100 Ml IV 100 mls/hr Q8H SHAHBAZ Administration Protocol Levetiracetam 500 mg 03/12/22 10:00 03/26/22 21:19 Levetiracetam 500 Mg/5 Ml Oral Liqd FEEDTUBE 500 mg BID SHAHBAZ Administration Midodrine 15 mg 03/21/22 16:00 03/26/22 17:08 Midodrine 5 Mg Tab PO 15 mg TID@0800,1200,1600 SHAHBAZ Administration Multi-Ingred Cream/Lotion/Oil/Oint 1 applic 03/10/22 11:03 Mineral Oil/Petrolatum, White Ophth Oint 3.5 Gm OU Q4HR PRN Dry Eye(s) Ondansetron HCl 4 mg 03/10/22 02:56 Ondansetron 4 Mg/2 Ml Inj IV Q8H PRN Nausea And Vomiting Scopolamine 1 each 03/21/22 10:00 03/24/22 11:05 Scopolamine Transdermal Patch 72 Hr TD 1 each Q3D SHAHBAZ Administration Sodium Chloride 10 ml 03/10/22 10:00 03/26/22 21:19 Sodium Chloride 0.9% 10 Ml Flush Syringe IV 10 ml BID SHAHBAZ Administration Sodium Chloride 10 ml 03/10/22 02:56 Sodium Chloride 0.9% 10 Ml Flush Syringe IV PRN PRN LINE FLUSH Vancomycin HCl 500 mg 03/22/22 12:00 07/12/22 06:31 Vancomycin 250 Mg/10 Ml Oral Liqd PO 500 mg Q6HR SHAHBAZ Administration Protocol Nutrition/Malnutrition Assess - Dietary Evaluation Nutrition/Malnutrition Findings: Nutrition Notes Start: 03/10/22 12:22 Freq: Status: Active Protocol: Document 03/21/22 15:08 JOSH (Rec: 03/21/22 15:18 JOSH [id number]) Nutrition Notes Initial or Follow up Reassessment Current Diagnosis Hypertension,Respiratory Failure,Malnutrition Other Pertinent Diagnosis MS, CAP, Seizure, Metabolic Encephalopathy, Septic Shock, NSTEMI, UTI ... Current Diet TF-Vital AF 1.2 En @ 60 ml/hr (since D 03/10). Labs/Tests 03/21: Na 135, K 5.7, Cl 97.4, CO2 21, BUN 104, Crea 1.3, Glu 118. Pertinent Medications 03/21: Vasopressin 20U, others nutritionally unremarkable. Height 5 ft 6 in Weight 83.2 kg [place] Body Weight (kg) 59.09 BMI 29.6 Weight change and time frame No body weight change reported in 11 days. Weight Status Overweight Subjective/Other Information RD consult for routine F/U on TF tolerance/continuation. TF continues as prescribed, and well tolerated, according to RN notes. Pt remains on Mechanical Ventilation, O2 saturation @ 96%, according to Physical Assessment History notes. Pt presents bilateral-LE pitting edema 3+, according to Physical Assessment History notes. Pt presents an unspecified area of concern for skin risk at the time, according to Physical Assessment History notes. Percent of energy/protein needs met: Prescribed TF-Vital AF 1.2 En @ 60 ml/hr provides for energy/protein needs (1,728 Kcal/108 g) during LOS, 100% Kcal; 100% AA. Burn Absent Trauma Absent GI Symptoms None Food Allergy No Skin Integrity/Comment Unspecified area of concern. Current % PO Other Minimum of two criteria No Fluid Accumulation Moderate to Severe (severe) Reduced Television [employer] Strength N/A (non-severe) Protein-Calorie Malnutrition N\A #1 Nutrition Diagnosis Inadequate oral intake Diagnosis Progress(for reassessment Continues documentation) Is patient on ventilator? Yes Is Patient Ambulatory and/or Out of Bed No REE-([place]-confined to bed) 1713.168 Calculation Used for Recommendations Rachel Joshua Additional Notes Protein: 1-1.2 g/Kg ABW; 100- 166 g/day. Fluids: 1 ml/Kcal, or as per MD. Nutrition Intervention Nutrition Support: Continue TF-Vital AF 1.2 En @ 60 ml/hr. Flush: 100 ml water Q 4 hr, or as per MD. Kcal 1,728 Protein (gm) 108 Carbohydrates (gm) 159 Fat (gm) 78 Fluid (mL) 1,168 Fiber (gm) 7 % RDI: 100% Kcal; 100% AA. Goal #1 Provide at least 75% of energy /protein needs through Enteral Feeding during LOS. Follow-Up By: 03/28/22 Additional Comments Continue monitoring TF tolerance, Ventilation Status, Pressor support, and BM.
[2022-03-23] MEDS: FAMOTIDINE 10 MG TAB FEEDTUBE SCH ×2 (10:41→22:15)
[2022-03-23] MEDS: levETIRAcetam 500 MG/5 ML ORAL LIQD FEEDTUBE SCH ×2 (10:41→22:15)
[2022-03-23] MEDS ORDERED: VANCOMYCIN PHARMACY TO DOSE IV SCH (11:00)
--- NOTE | 2022-03-23 11:20 | Progress Note ---
Assessment and Plan Cultures: 03/10/2022 blood culture: No growth 03/10/2022 sputum culture: Usual respiratory shital 03/14/2022 urine culture: No growth 03/18/2022 blood culture: No growth 03/18/2022 tracheal aspirate culture: no growth so far COVID-19 PCR: Negative A/P: 61-year-old female past medical history of multiple sclerosis, seizures now with: #Septic shock, likely secondary to bilateral pneumonia #Acute hypoxic respiratory failure with ARDS: On vent with high requirements. #TANIYA: renally adjust abx. #Diarrhea: Had been on Kayexalate, MiraLAX, senna. #Bilateral pneumonia: Cultures without any particular pathogen isolated. #Multiple sclerosis #Possible UTI: UA did show pyuria on admission, culture without any significant growth Recs: -worsening leucocytosis, restarted IV meropenem and vancomycin, renally adjusted -consider CT chest, abdomen and pelvis without contrast due to renal function -Continue IV levofloxacin, renally adjusted, complete 5 days -follow-up C. difficile PCR, if negative, discontinue IV Flagyl and PO vancomycin -poor prognosis d/w ANI Campbell MD, FACP, DAMEON [facility] O: [phone] F: [phone] C: [phone] Subjective Date of service: 03/23/22 Principal diagnosis: AHRF; Multifocal Pneumonia; Septic shock; NSTEMI; AMS; Seizures Interval history: Low grade temp. Remains on the vent, on pressors. WBC worsening. Diarrhea + Objective - Exam Narrative Exam: Physical Exam: Constitutional: sedated, intubated, on the vent Head, Ears, Nose: Normocephalic, atraumatic. External ears, nose normal Eyes: Conjunctivae/corneas clear. No icterus. No ptosis. Neck: intubated Oral: intubated Cardiovascular: S1, S2 + Respiratory: AE fair bilaterally and equal GI: Soft, bowel sounds + Musculoskeletal: No pedal edema, no cyanosis. Skin: No rash or abscess Hem/Lymphatic: No palpable cervical or supraclavicular nodes. No lymphangitis Psych: no agitation Neurological: sedated, intubated, on the vent, exam limited - Constitutional Vitals: Vital Signs Temp Pulse Resp BP Pulse Ox 100.3 F H 87 27 H 84/48 93 03/23/22 08:00 03/23/22 10:15 03/23/22 10:15 03/23/22 10:15 03/23/22 10:15 Temperature -Last 24 Hours Temperature 100.3 F Temperature 100.3 F Temperature 98.0 F Temperature 99.4 F Temperature 99.8 F Temperature 99.1 F Temperature 99.5 F Temperature 99.2 F - Labs CBC & Chem 7: 03/23/22 04:20 03/23/22 04:20 Labs: Abnormal lab results 03/22/22 03/22/22 03/22/22 Range/Units 09:00 13:02 17:49 WBC (4.5-11.0) K/mm3 RBC (3.65-5.03) M/mm3 Hgb (10.1-14.3) gm/dl Hct (30.3-42.9) % RDW (13.2-15.2) % Plt Count (140-440) K/mm3 Heparin Anti-Xa Level (0.3-0.7) U.I./ml ABG pH (7.350-7.450) pH Units ABG pO2 (80.0-90.0) mm Hg ABG HCO3 19.9 L (20.0-26.0) mmol/L ABG O2 Saturation (95.0-99.0) % ABG Base Excess -4.9 L (-2.0-3.0) mmol/L ABG Hemoglobin 7.5 L (12.0-16.0) gm/dl Oxyhemoglobin (95.0-99.0) % Carbon Dioxide (22-30) mmol/L BUN (7-17) mg/dL Creatinine (0.6-1.2) mg/dL Glucose (65-100) mg/dL POC Glucose 120 H 118 H (70-105) mg/dL Calcium (8.4-10.2) mg/dL 03/23/22 03/23/22 03/23/22 Range/Units 04:20 04:20 04:25 WBC 37.3 H (4.5-11.0) K/mm3 RBC 2.57 L (3.65-5.03) M/mm3 Hgb 7.2 L (10.1-14.3) gm/dl Hct 22.3 L (30.3-42.9) % RDW 16.6 H (13.2-15.2) % Plt Count 580 H (140-440) K/mm3 Heparin Anti-Xa Level (0.3-0.7) U.I./ml ABG pH 7.333 L (7.350-7.450) pH Units ABG pO2 70.9 L (80.0-90.0) mm Hg ABG HCO3 (20.0-26.0) mmol/L ABG O2 Saturation 93.3 L (95.0-99.0) % ABG Base Excess -5.0 L (-2.0-3.0) mmol/L ABG Hemoglobin 7.0 L (12.0-16.0) gm/dl Oxyhemoglobin 91.2 L (95.0-99.0) % Carbon Dioxide 19 L (22-30) mmol/L BUN 125 H (7-17) mg/dL Creatinine 1.9 H (0.6-1.2) mg/dL Glucose 133 H (65-100) mg/dL POC Glucose (70-105) mg/dL Calcium 8.2 L (8.4-10.2) mg/dL 03/23/22 03/23/22 03/23/22 Range/Units 05:40 07:25 11:13 WBC (4.5-11.0) K/mm3 RBC (3.65-5.03) M/mm3 Hgb (10.1-14.3) gm/dl Hct (30.3-42.9) % RDW (13.2-15.2) % Plt Count (140-440) K/mm3 Heparin Anti-Xa Level 0.29 L (0.3-0.7) U.I./ml ABG pH (7.350-7.450) pH Units ABG pO2 (80.0-90.0) mm Hg ABG HCO3 (20.0-26.0) mmol/L ABG O2 Saturation (95.0-99.0) % ABG Base Excess (-2.0-3.0) mmol/L ABG Hemoglobin (12.0-16.0) gm/dl Oxyhemoglobin (95.0-99.0) % Carbon Dioxide (22-30) mmol/L BUN (7-17) mg/dL Creatinine (0.6-1.2) mg/dL Glucose (65-100) mg/dL POC Glucose 121 H 112 H (70-105) mg/dL Calcium (8.4-10.2) mg/dL
[2022-03-23] MEDS ORDERED: VANCOMYCIN 1,250 MG in SODIUM CHLORIDE 0.9% 250ML 250 ML IV SCH (11:45)
[2022-03-23] MEDS ORDERED: MIDAZOLAM 2 MG/2 ML INJ IV ONE ×2 (12:27→14:00)
--- NOTE | 2022-03-23 14:07 | Progress Note ---
Assessment and Plan - Patient Problems (1) Respiratory failure Current Visit: Yes Status: Acute Plan to address problem: Patient has a history of multiple sclerosis, no reported cardiac history, presented to the hospital with respiratory insufficiency and currently on the vent in the ICU. Chest x-ray showed confluent consolidations in both lung fraire consistent with a severe bilateral pneumonia. A COVID-19 test was positive. Cardiac consultation was requested for the finding of a nonspecific, isolated rise in troponin levels. EKG show sinus rhythm with no acute ischemic changes. Echocardiogram done on this presentation shows left ventricular systolic ejection fraction at the lower limits of normal 50%. No acute cardiovascular issues at this time, will continue supportive management of cardiac status, defer treatment of respiratory failure and bilateral pneumonia to internal medicine and pulmonary. Subjective Date of service: 03/23/22 Principal diagnosis: AHRF; Multifocal Pneumonia; Septic shock; NSTEMI; AMS; Seizures Interval history: Patient is on the vent, sedated, no new cardiac events reported. Stable sinus rhythm on art psychotherapist or therapist. Objective Vital Signs Temp Pulse Pulse Resp BP Pulse Ox 03/23/22 12:56 98.0 F 03/23/22 11:45 86 88/45 98 03/23/22 11:30 87 28 H 83/52 94 03/23/22 11:15 87 24 86/55 93 03/23/22 11:00 87 27 H 87/51 94 03/23/22 10:45 89 29 H 88/55 94 03/23/22 10:31 88 29 H 86/58 03/23/22 10:15 87 27 H 84/48 93 03/23/22 10:00 84 28 H 85/47 94 03/23/22 09:45 86 26 H 84/56 93 03/23/22 09:30 82 24 84/52 03/23/22 09:15 83 29 H 87/58 94 03/23/22 09:01 84 30 H 86/54 96 03/23/22 08:45 83 28 H 89/59 94 03/23/22 08:30 83 24 89/59 03/23/22 08:15 84 24 86/55 91 03/23/22 08:00 100.3 F H 85 83 28 H 84/57 95 03/23/22 07:45 85 29 H 87/60 03/23/22 07:30 85 26 H 87/60 03/23/22 07:25 87 90/58 94 03/23/22 07:15 86 28 H 91/53 93 03/23/22 07:10 100.3 F H 03/23/22 07:09 98.0 F 08 07:00 85 25 H 91/53 90 03/23/22 06:45 85 25 H 89/58 92 03/23/22 06:30 86 28 H 91/51 94 03/23/22 06:15 85 26 H 94/59 03/23/22 06:01 88 24 88/58 03/23/22 05:45 86 28 H 91/59 94 03/23/22 05:30 85 24 88/53 93 03/23/22 05:15 85 30 H 91/55 100 03/23/22 05:01 83 28 H 89/58 03/23/22 04:45 85 28 H 90/56 95 03/23/22 04:31 85 28 H 98/55 75 L 03/23/22 04:15 84 28 H 92/60 93 03/23/22 04:00 99.4 F 85 85 28 H 89/60 95 03/23/22 03:45 84 28 H 93/51 95 03/23/22 03:30 86 28 H 80/56 90 03/23/22 03:15 84 28 H 83/56 03/23/22 03:00 86 28 H 85/55 03/23/22 02:45 86 28 H 91/59 95 03/23/22 02:31 87 28 H 90/59 03/23/22 02:15 85 29 H 88/55 94 03/23/22 02:00 85 21 91/59 94 03/23/22 01:45 85 28 H 89/62 03/23/22 01:30 89 28 H 88/57 96 03/23/22 01:15 87 28 H 88/56 03/23/22 01:00 90 28 H 99/60 97 03/23/22 00:45 87 28 H 90/61 96 03/23/22 00:34 91 H 87/56 96 03/23/22 00:30 90 28 H 91/59 95 03/23/22 00:15 88 31 H 91/59 94 03/23/22 00:00 88 88 22 89/57 96 03/22/22 23:51 99.8 F H 03/22/22 23:45 85 28 H 93/55 03/22/22 23:30 87 30 H 102/54 03/22/22 23:19 90 28 H 86/55 95 03/22/22 23:15 85 28 H 86/55 95 03/22/22 23:00 86 24 88/55 03/22/22 22:45 85 30 H 92/58 03/22/22 22:30 88 28 H 90/57 03/22/22 22:15 85 29 H 87/56 03/22/22 22:00 87 28 H 87/55 03/22/22 21:45 89 27 H 88/58 03/22/22 21:30 86 28 H 85/58 98 03/22/22 21:15 90 28 H 84/57 03/22/22 21:00 86 28 H 84/57 98 03/22/22 20:45 88 21 84/57 03/22/22 20:31 89 86/57 96 03/22/22 20:30 86 29 H 86/57 03/22/22 20:15 87 29 H 86/58 94 03/22/22 20:00 99.1 F 89 90 28 H 87/57 94 03/22/22 19:45 87 28 H 94/60 03/22/22 19:30 86 28 H 99/61 95 03/22/22 19:15 87 26 H 89/61 03/22/22 19:00 85 28 H 91/60 03/22/22 18:45 86 28 H 89/57 98 03/22/22 18:30 88 22 89/57 03/22/22 18:15 88 28 H 94/62 03/22/22 18:01 87 29 H 85/58 100 03/22/22 17:45 86 28 H 87/57 03/22/22 17:30 85 28 H 94/57 96 03/22/22 17:15 90 28 H 96/63 97 03/22/22 17:00 89 28 H 94/64 03/22/22 16:45 88 28 H 87/56 03/22/22 16:30 87 28 H 97/61 96 03/22/22 16:17 89 03/22/22 16:15 89 23 94/64 97 03/22/22 16:01 89 28 H 94/57 07/07/22 15:52 92 H 28 H 96 03/22/22 15:47 99.5 F 03/22/22 15:45 90 28 H 90/61 98 03/22/22 15:31 90 28 H 90/61 03/22/22 15:15 90 27 H 91/64 03/22/22 15:00 89 28 H 93/62 03/22/22 14:45 90 28 H 96/62 03/22/22 14:30 90 28 H 92/63 98 03/22/22 14:15 90 28 H 101/62 98 - Physical Examination General: Other (intubated on mechanical ventilator) HEENT: Positive: PERRL Neck: Positive: neck supple, trachea midline. Negative: JVD/HJR Cardiac: Positive: Reg Rate and Rhythm Lungs: Positive: Decreased Breath Sounds Neuro: Positive: Other (Intubated, sedated on the vent) Abdomen: Positive: Soft Skin: Positive: Clear, Other (multiple wounds) Extremities: Absent: edema - Labs and Meds CBC 03/23/22 Range/Units 04:20 WBC 37.3 H (4.5-11.0) K/mm3 RBC 2.57 L (3.65-5.03) M/mm3 Hgb 7.2 L (10.1-14.3) gm/dl Hct 22.3 L (30.3-42.9) % Plt Count 580 H (140-440) K/mm3 Comprehensive Metabolic Panel 03/23/22 Range/Units 04:20 Sodium 139 (137-145) mmol/L Potassium 5.0 (3.6-5.0) mmol/L Chloride 98.4 (98-107) mmol/L Carbon Dioxide 19 L (22-30) mmol/L BUN 125 H (7-17) mg/dL Creatinine 1.9 H (0.6-1.2) mg/dL Glucose 133 H (65-100) mg/dL Calcium 8.2 L (8.4-10.2) mg/dL - Allied health notes Allied health notes reviewed: RT
[2022-03-23] MEDS: MEROPENEM/NS 1 GRAM/100 ML 1 GRAM/100 ML BAG IV SCH (14:49)
[2022-03-23] MEDS ORDERED: VANCOMYCIN 1,750 MG in SODIUM CHLORIDE 0.9% 500 ML 500 ML IV ONE (18:00)
--- NOTE | 2022-03-23 19:08 | Progress Note ---
Assessment and Plan This is a 61-year-old female with known past medical history of Multiple Sclerosis and seizure disorder admitted for sepsis, Hyponatremia, and acute hypoxic respiratory failure requiring ventilatory support Acute Hypoxemic Respiratory Failure, on MVS ARDS Septic shock -2 pressor with MODS Multifocal Pneumonia/CAP- possible aspiration TANIYA C.diff PCR positive Leukemoid reaction with thromocytosis NSTEMI/Elevated Troponin- probable type 2 ischemia Elevated BNP Acute Metabolic Encephalopathy H/o Seizure Disorder Elevated D-Dimer Moderate Protein Calorie Malnutrition will need HD, but deemed unsafe Worsening leukocytosis Updated the son and DIL -continue to titrate supplemental oxygen to keep SpO2 90-92% -VAP bundle addressed, aspiration precautions HOB >40 -continue lung protective strategies; ARDS net protocol -Bicarbonate for pH <7.2 per ARDS net protocol -continue bronchodilators with pulmonary hygiene per RT -Continue Antibiotics per ID- on Vancomyin (po ), Metronidazole IV -Continue to trend temperature curve and WCC -CXR, ABG as clinically indicated - continue accuchecks with glycemic control per SSI (While critically ill target blood glucose of 140-180 mg/dL; avoid hypoglycemia) - avoid nephrotoxins, renally dose all medications - continue to avoid benzodiazepines, reduce the possibility of delirium - Maintenance of sleep-wake cycle, avoid delirium -Continue with enteric nutritional support - VTE prophylaxis- anticoagulation with therapeutic low intensity heparin -Stress ulcer prophylaxis- Famotidine - mobility, off loading and frequent turning per facility protocol to prevent pressure ulcers - Monitor hemodynamics closely - continue other care per attending / other consultants CONDITION: CRITICAL PROGNOSIS: GRAVE CODE STATUS: FULL The high probability of a clinically significant, sudden or life threatening deterioration of the [respiratory, cardiovascular, neurology,renal ] system(s) required my full and direct attention, intervention and personal management. The aggregate critical care time was [35 ] minutes. This time is in addition to time spent performing reported procedures but includes the following: [x] Data Review and interpretation [x] Patient assessment and monitoring of vital signs [x] Documentation [x] Medication orders and management Subjective Date of service: 03/23/22 Principal diagnosis: AHRF; Multifocal Pneumonia; Septic shock; NSTEMI; AMS; Seizures Interval history: follow up fro: Acute hypoxemic resp failure on MVS; Acute encephalopathy; Septic shock; Bilateral pneumonia-aspiration/CAP Severe hyponatremia Seen and examined. Vitals, labs, medications, chart reviewed. Discussed with nursing and respiratory care staff. No fevers, remains on Norepinephrine, on Vasopressin and bicarbonate infusion Vent: ACVC-28/400/+14/100% On going episodes of desaturations overnight, worsening metabolic acidosis- minute ventilation adjusted to improve acid-base remains on Fentanyl-low dose, minimally responsive Objective Vital Signs - 12hr 03/23/22 03/23/22 03/23/22 07:09 07:10 07:15 Temperature 98.0 F 100.3 F H Pulse Rate 86 Pulse Rate [ From Monitor] Respiratory 28 H Rate Blood Pressure 91/53 O2 Sat by Pulse 93 Oximetry 03/23/22 03/23/22 03/23/22 07:25 07:30 07:45 Temperature Pulse Rate 87 85 85 Pulse Rate [ From Monitor] Respiratory 26 H 29 H Rate Blood Pressure 90/58 87/60 87/60 O2 Sat by Pulse 94 Oximetry 03/23/22 03/23/22 03/23/22 08:00 08:15 08:30 Temperature 100.3 F H Pulse Rate 85 84 83 Pulse Rate [ 83 From Monitor] Respiratory 28 H 24 24 Rate Blood Pressure 84/57 86/55 89/59 O2 Sat by Pulse 95 91 Oximetry 03/23/22 03/23/22 03/23/22 08:45 09:01 09:15 Temperature Pulse Rate 83 84 83 Pulse Rate [ From Monitor] Respiratory 28 H 30 H 29 H Rate Blood Pressure 89/59 86/54 87/58 O2 Sat by Pulse 94 96 94 Oximetry 03/23/22 03/23/22 03/23/22 09:30 09:45 10:00 Temperature Pulse Rate 82 86 84 Pulse Rate [ From Monitor] Respiratory 24 26 H 28 H Rate Blood Pressure 84/52 84/56 85/47 O2 Sat by Pulse 93 94 Oximetry 03/23/22 03/23/22 03/23/22 10:15 10:31 10:45 Temperature Pulse Rate 87 88 89 Pulse Rate [ From Monitor] Respiratory 27 H 29 H 29 H Rate Blood Pressure 84/48 86/58 88/55 O2 Sat by Pulse 93 94 Oximetry 03/23/22 03/23/22 03/23/22 11:00 11:15 11:30 Temperature Pulse Rate 87 87 87 Pulse Rate [ From Monitor] Respiratory 27 H 24 28 H Rate Blood Pressure 87/51 86/55 83/52 O2 Sat by Pulse 94 93 94 Oximetry 03/23/22 03/23/22 03/23/22 11:45 12:00 12:15 Temperature Pulse Rate 85 89 87 Pulse Rate [ 85 From Monitor] Respiratory 26 H 28 H 28 H Rate Blood Pressure 88/45 81/49 80/56 O2 Sat by Pulse 98 95 96 Oximetry 03/23/22 03/23/22 03/23/22 12:30 12:45 12:56 Temperature 98.0 F Pulse Rate 81 Pulse Rate [ From Monitor] Respiratory 26 H Rate Blood Pressure 93/56 90/50 O2 Sat by Pulse 86 90 Oximetry 03/23/22 03/23/22 03/23/22 13:01 13:15 13:30 Temperature Pulse Rate 90 87 84 Pulse Rate [ From Monitor] Respiratory 21 27 H 28 H Rate Blood Pressure 90/50 93/55 89/45 O2 Sat by Pulse 93 100 Oximetry 03/23/22 03/23/22 03/23/22 13:45 14:00 14:15 Temperature Pulse Rate 84 82 81 Pulse Rate [ From Monitor] Respiratory 27 H 29 H 28 H Rate Blood Pressure 104/61 102/33 78/42 O2 Sat by Pulse 100 Oximetry 03/23/22 03/23/22 03/23/22 14:30 14:45 15:00 Temperature Pulse Rate 79 88 87 Pulse Rate [ From Monitor] Respiratory 28 H 28 H 28 H Rate Blood Pressure 67/43 101/75 118/79 O2 Sat by Pulse 100 99 Oximetry 03/23/22 03/23/22 03/23/22 15:15 15:30 15:45 Temperature Pulse Rate 88 90 88 Pulse Rate [ From Monitor] Respiratory 27 H 28 H 29 H Rate Blood Pressure 111/72 118/78 113/73 O2 Sat by Pulse 97 Oximetry 03/23/22 03/23/22 03/23/22 16:00 16:06 16:15 Temperature Pulse Rate 84 86 88 Pulse Rate [ 82 From Monitor] Respiratory 28 H 28 H Rate Blood Pressure 106/67 106/67 101/67 O2 Sat by Pulse 95 100 Oximetry 03/23/22 03/23/22 03/23/22 16:30 16:41 16:45 Temperature 97.8 F Pulse Rate 82 83 Pulse Rate [ From Monitor] Respiratory 28 H 28 H Rate Blood Pressure 100/62 93/64 O2 Sat by Pulse 98 98 Oximetry 03/23/22 03/23/22 03/23/22 17:00 17:15 17:30 Temperature Pulse Rate 85 85 83 Pulse Rate [ From Monitor] Respiratory 28 H 28 H 28 H Rate Blood Pressure 93/64 102/63 94/60 O2 Sat by Pulse Oximetry 03/23/22 03/23/22 17:45 18:00 Temperature Pulse Rate 85 84 Pulse Rate [ From Monitor] Respiratory 28 H 28 H Rate Blood Pressure 93/63 94/58 O2 Sat by Pulse 99 Oximetry Constitutional: no acute distress, alert, other (middle aged female with anasarca and mild dyssynchrony on MVS) Eyes: non-icteric ENT: oropharynx moist, other (ETT 24 cm BLANCA) Neck: supple, no lymphadenopathy, no JVD Effort: mildly labored Ascultation: Bilateral: rales Percussion: Bilateral: not dull Cardiovascular: regular rate and rhythm Gastrointestinal: normoactive bowel sounds, soft, non-tender, non-distended Integumentary: normal Extremities: no cyanosis, pulses normal, no ischemia or petechiae, edema (2+ and anasarca ) Neurologic: pupils equal and round, unable to assess, other (weak) Psychiatric: other (unable to assess re: AMS) CBC and BMP: 03/28/22 04:17 03/28/22 04:17 ABG, PT/INR, D-dimer: ABG ABG pH 7.333 pH Units (7.350-7.450) L 03/23/22 04:25 ABG pCO2 39.4 mm Hg 03/23/22 04:25 ABG pO2 70.9 mm Hg (80.0-90.0) L 03/23/22 04:25 ABG O2 Saturation 93.3 % (95.0-99.0) L 03/23/22 04:25 PT/INR, D-dimer PT 17.2 Sec. (12.2-14.9) H 03/22/22 09:30 INR 1.25 (0.87-1.13) H 03/22/22 09:30 D-Dimer 787.78 ng/mlDDU (0-234) H 03/10/22 05:45 Abnormal lab findings: Abnormal Labs 06/25/22 06/25/22 06/25/22 01:19 01:25 01:25 WBC RBC Hgb Hct MCH RDW 15.4 H Plt Count Lymph % (Auto) 12.4 L Lymph # (Auto) 1.1 L Seg Neutrophils % 85.9 H Seg Neuts % (Manual) Lymphocytes % (Manual) Nucleated RBC % Seg Neutrophils # Seg Neutrophils # Man Lymphocytes # (Manual) Monocytes # (Manual) Eosinophils # (Manual) PT INR D-Dimer Heparin Anti-Xa Level ABG pH ABG pO2 59.3 L ABG HCO3 16.7 L ABG O2 Saturation 92.3 L ABG Base Excess -7.8 L ABG Hemoglobin 11.4 L Oxyhemoglobin 90.8 L Sodium 119 L* Potassium 3.1 L Chloride 88.1 L Carbon Dioxide 16 L BUN Creatinine 0.3 L Glucose 146 H POC Glucose Lactic Acid Uric Acid Calcium 8.2 L Phosphorus Magnesium 1.30 L Ferritin ALT 5 L Lactate Dehydrogenase Total Creatine Kinase CK-MB (CK-2) Troponin T NT-Pro-B Natriuret Pep Total Protein 5.4 L Albumin 3.6 L Prealbumin Cholesterol LDL Cholesterol Direct HDL Cholesterol Vitamin B12 Folate Urine WBC (Auto) Urine Creatinine Crossmatch 03/10/22 03/10/22 03/10/22 01:25 01:25 01:25 WBC RBC Hgb Hct MCH RDW Plt Count Lymph % (Auto) Lymph # (Auto) Seg Neutrophils % Seg Neuts % (Manual) Lymphocytes % (Manual) Nucleated RBC % Seg Neutrophils # Seg Neutrophils # Man Lymphocytes # (Manual) Monocytes # (Manual) Eosinophils # (Manual) PT INR D-Dimer Heparin Anti-Xa Level ABG pH ABG pO2 ABG HCO3 ABG O2 Saturation ABG Base Excess ABG Hemoglobin Oxyhemoglobin Sodium Potassium Chloride Carbon Dioxide BUN Creatinine Glucose POC Glucose Lactic Acid 3.60 H* Uric Acid Calcium Phosphorus Magnesium Ferritin ALT Lactate Dehydrogenase Total Creatine Kinase CK-MB (CK-2) 4.6 H Troponin T 0.164 H* NT-Pro-B Natriuret Pep 04154 H Total Protein Albumin Prealbumin Cholesterol 259 H LDL Cholesterol Direct 187 H HDL Cholesterol 63 H Vitamin B12 Folate Urine WBC (Auto) Urine Creatinine Crossmatch 03/10/22 03/10/22 03/10/22 02:43 05:45 05:45 WBC RBC Hgb Hct MCH RDW Plt Count Lymph % (Auto) Lymph # (Auto) Seg Neutrophils % Seg Neuts % (Manual) Lymphocytes % (Manual) Nucleated RBC % Seg Neutrophils # Seg Neutrophils # Man Lymphocytes # (Manual) Monocytes # (Manual) Eosinophils # (Manual) PT INR D-Dimer 787.78 H Heparin Anti-Xa Level ABG pH ABG pO2 ABG HCO3 ABG O2 Saturation ABG Base Excess ABG Hemoglobin Oxyhemoglobin Sodium Potassium Chloride Carbon Dioxide BUN Creatinine Glucose POC Glucose Lactic Acid 3.70 H* 3.10 H* Uric Acid Calcium Phosphorus Magnesium Ferritin ALT Lactate Dehydrogenase Total Creatine Kinase CK-MB (CK-2) Troponin T NT-Pro-B Natriuret Pep Total Protein Albumin Prealbumin Cholesterol LDL Cholesterol Direct HDL Cholesterol Vitamin B12 Folate Urine WBC (Auto) Urine Creatinine Crossmatch 03/10/22 03/10/22 03/10/22 05:45 05:45 12:24 WBC RBC Hgb Hct MCH RDW Plt Count Lymph % (Auto) Lymph # (Auto) Seg Neutrophils % Seg Neuts % (Manual) Lymphocytes % (Manual) Nucleated RBC % Seg Neutrophils # Seg Neutrophils # Man Lymphocytes # (Manual) Monocytes # (Manual) Eosinophils # (Manual) PT INR D-Dimer Heparin Anti-Xa Level ABG pH ABG pO2 ABG HCO3 ABG O2 Saturation ABG Base Excess ABG Hemoglobin Oxyhemoglobin Sodium 124 L Potassium 3.3 L Chloride Carbon Dioxide 11 L BUN Creatinine 0.2 L Glucose POC Glucose Lactic Acid Uric Acid Calcium 6.9 L D Phosphorus Magnesium Ferritin 219.2 H ALT Lactate Dehydrogenase 210 H Total Creatine Kinase CK-MB (CK-2) Troponin T NT-Pro-B Natriuret Pep Total Protein Albumin Prealbumin Cholesterol LDL Cholesterol Direct HDL Cholesterol Vitamin B12 Folate Urine WBC (Auto) Urine Creatinine Crossmatch 03/10/22 03/10/22 03/10/22 12:24 12:24 12:24 WBC RBC Hgb Hct MCH RDW Plt Count Lymph % (Auto) Lymph # (Auto) Seg Neutrophils % Seg Neuts % (Manual) Lymphocytes % (Manual) Nucleated RBC % Seg Neutrophils # Seg Neutrophils # Man Lymphocytes # (Manual) Monocytes # (Manual) Eosinophils # (Manual) PT INR D-Dimer Heparin Anti-Xa Level ABG pH ABG pO2 ABG HCO3 ABG O2 Saturation ABG Base Excess ABG Hemoglobin Oxyhemoglobin Sodium 128 L Potassium Chloride Carbon Dioxide BUN Creatinine Glucose POC Glucose Lactic Acid 2.70 H* Uric Acid Calcium Phosphorus Magnesium Ferritin ALT Lactate Dehydrogenase Total Creatine Kinase 901 H CK-MB (CK-2) 15.3 H Troponin T 0.032 H D NT-Pro-B Natriuret Pep Total Protein Albumin Prealbumin Cholesterol LDL Cholesterol Direct HDL Cholesterol Vitamin B12 Folate Urine WBC (Auto) Urine Creatinine Crossmatch 03/10/22 03/10/22 03/10/22 12:45 13:15 18:00 WBC RBC Hgb Hct MCH RDW Plt Count Lymph % (Auto) Lymph # (Auto) Seg Neutrophils % Seg Neuts % (Manual) Lymphocytes % (Manual) Nucleated RBC % Seg Neutrophils # Seg Neutrophils # Man Lymphocytes # (Manual) Monocytes # (Manual) Eosinophils # (Manual) PT INR D-Dimer Heparin Anti-Xa Level ABG pH 7.315 L ABG pO2 70.1 L ABG HCO3 15.6 L ABG O2 Saturation 93.8 L ABG Base Excess -9.5 L ABG Hemoglobin 11.0 L Oxyhemoglobin 92.4 L Sodium 129 L Potassium Chloride Carbon Dioxide 17 L BUN Creatinine 0.2 L Glucose POC Glucose Lactic Acid Uric Acid 1.6 L Calcium 7.0 L Phosphorus Magnesium Ferritin ALT Lactate Dehydrogenase Total Creatine Kinase CK-MB (CK-2) Troponin T NT-Pro-B Natriuret Pep Total Protein Albumin Prealbumin Cholesterol LDL Cholesterol Direct HDL Cholesterol Vitamin B12 Folate Urine WBC (Auto) Urine Creatinine Crossmatch 03/10/22 03/10/22 03/11/22 18:20 21:05 05:00 WBC 13.7 H RBC 3.44 L Hgb 9.6 L Hct 29.0 L D MCH RDW Plt Count Lymph % (Auto) 8.9 L Lymph # (Auto) Seg Neutrophils % 86.6 H Seg Neuts % (Manual) Lymphocytes % (Manual) Nucleated RBC % Seg Neutrophils # 11.8 H Seg Neutrophils # Man Lymphocytes # (Manual) Monocytes # (Manual) Eosinophils # (Manual) PT INR D-Dimer Heparin Anti-Xa Level ABG pH ABG pO2 116.3 H ABG HCO3 17.2 L ABG O2 Saturation ABG Base Excess -6.4 L ABG Hemoglobin 11.0 L Oxyhemoglobin Sodium Potassium Chloride Carbon Dioxide BUN Creatinine Glucose POC Glucose Lactic Acid Uric Acid Calcium Phosphorus Magnesium Ferritin ALT Lactate Dehydrogenase Total Creatine Kinase CK-MB (CK-2) Troponin T NT-Pro-B Natriuret Pep Total Protein Albumin Prealbumin Cholesterol LDL Cholesterol Direct HDL Cholesterol Vitamin B12 Folate Urine WBC (Auto) 105.0 H Urine Creatinine Crossmatch 03/11/22 03/11/22 03/12/22 05:00 Unknown 04:10 WBC RBC Hgb Hct MCH RDW Plt Count Lymph % (Auto) Lymph # (Auto) Seg Neutrophils % Seg Neuts % (Manual) Lymphocytes % (Manual) Nucleated RBC % Seg Neutrophils # Seg Neutrophils # Man Lymphocytes # (Manual) Monocytes # (Manual) Eosinophils # (Manual) PT INR D-Dimer Heparin Anti-Xa Level ABG pH 7.472 H 7.482 H ABG pO2 65.5 L ABG HCO3 19.8 L ABG O2 Saturation ABG Base Excess -2.9 L ABG Hemoglobin 10.1 L 8.4 L Oxyhemoglobin Sodium 132 L Potassium Chloride Carbon Dioxide 20 L BUN 6 L Creatinine 0.2 L Glucose POC Glucose Lactic Acid Uric Acid Calcium 7.5 L Phosphorus Magnesium Ferritin ALT Lactate Dehydrogenase Total Creatine Kinase CK-MB (CK-2) Troponin T NT-Pro-B Natriuret Pep Total Protein Albumin Prealbumin Cholesterol LDL Cholesterol Direct HDL Cholesterol Vitamin B12 Folate Urine WBC (Auto) Urine Creatinine Crossmatch 03/12/22 03/12/22 03/12/22 04:20 04:20 12:25 WBC 13.6 H RBC 3.11 L Hgb 8.7 L Hct 26.1 L MCH RDW Plt Count Lymph % (Auto) Lymph # (Auto) Seg Neutrophils % Seg Neuts % (Manual) Lymphocytes % (Manual) Nucleated RBC % Seg Neutrophils # Seg Neutrophils # Man Lymphocytes # (Manual) Monocytes # (Manual) Eosinophils # (Manual) PT INR D-Dimer Heparin Anti-Xa Level ABG pH ABG pO2 ABG HCO3 ABG O2 Saturation ABG Base Excess ABG Hemoglobin Oxyhemoglobin Sodium 128 L Potassium 3.2 L Chloride 93.9 L Carbon Dioxide BUN 4 L Creatinine 0.2 L Glucose 103 H POC Glucose 116 H Lactic Acid Uric Acid Calcium 7.4 L Phosphorus 1.10 L Magnesium 2.40 H Ferritin ALT Lactate Dehydrogenase Total Creatine Kinase CK-MB (CK-2) Troponin T NT-Pro-B Natriuret Pep Total Protein Albumin Prealbumin Cholesterol LDL Cholesterol Direct HDL Cholesterol Vitamin B12 Folate Urine WBC (Auto) Urine Creatinine Crossmatch 06/27/22 06/27/22 06/27/22 18:40 18:40 18:40 WBC RBC Hgb Hct MCH RDW Plt Count Lymph % (Auto) Lymph # (Auto) Seg Neutrophils % Seg Neuts % (Manual) Lymphocytes % (Manual) Nucleated RBC % Seg Neutrophils # Seg Neutrophils # Man Lymphocytes # (Manual) Monocytes # (Manual) Eosinophils # (Manual) PT INR D-Dimer Heparin Anti-Xa Level ABG pH ABG pO2 ABG HCO3 ABG O2 Saturation ABG Base Excess ABG Hemoglobin Oxyhemoglobin Sodium Potassium Chloride Carbon Dioxide BUN Creatinine Glucose POC Glucose Lactic Acid Uric Acid Calcium Phosphorus Magnesium Ferritin ALT Lactate Dehydrogenase Total Creatine Kinase CK-MB (CK-2) Troponin T NT-Pro-B Natriuret Pep Total Protein Albumin Prealbumin 0.044 L Cholesterol LDL Cholesterol Direct HDL Cholesterol Vitamin B12 1021 H Folate 2.15 L Urine WBC (Auto) Urine Creatinine Crossmatch 03/13/22 03/13/22 03/13/22 04:10 08:00 09:50 WBC 15.0 H RBC 2.82 L Hgb 8.0 L Hct 23.9 L MCH RDW 15.5 H Plt Count Lymph % (Auto) Lymph # (Auto) Seg Neutrophils % Seg Neuts % (Manual) Lymphocytes % (Manual) Nucleated RBC % Seg Neutrophils # Seg Neutrophils # Man Lymphocytes # (Manual) Monocytes # (Manual) Eosinophils # (Manual) PT INR D-Dimer Heparin Anti-Xa Level ABG pH ABG pO2 98.6 H ABG HCO3 ABG O2 Saturation ABG Base Excess ABG Hemoglobin 8.3 L Oxyhemoglobin Sodium 130 L Potassium Chloride 96.1 L Carbon Dioxide BUN Creatinine 0.4 L D Glucose 148 H POC Glucose Lactic Acid Uric Acid Calcium 7.3 L Phosphorus Magnesium Ferritin ALT Lactate Dehydrogenase Total Creatine Kinase CK-MB (CK-2) Troponin T NT-Pro-B Natriuret Pep Total Protein Albumin Prealbumin Cholesterol LDL Cholesterol Direct HDL Cholesterol Vitamin B12 Folate Urine WBC (Auto) Urine Creatinine Crossmatch 03/13/22 03/13/22 03/14/22 20:15 22:59 04:54 WBC 17.0 H RBC 2.79 L Hgb 7.8 L Hct 23.6 L MCH RDW 15.6 H Plt Count Lymph % (Auto) Lymph # (Auto) Seg Neutrophils % Seg Neuts % (Manual) Lymphocytes % (Manual) Nucleated RBC % Seg Neutrophils # Seg Neutrophils # Man Lymphocytes # (Manual) Monocytes # (Manual) Eosinophils # (Manual) PT INR D-Dimer Heparin Anti-Xa Level ABG pH ABG pO2 ABG HCO3 ABG O2 Saturation ABG Base Excess -2.9 L ABG Hemoglobin 8.0 L Oxyhemoglobin Sodium Potassium Chloride Carbon Dioxide BUN Creatinine Glucose POC Glucose 127 H Lactic Acid Uric Acid Calcium Phosphorus Magnesium Ferritin ALT Lactate Dehydrogenase Total Creatine Kinase CK-MB (CK-2) Troponin T NT-Pro-B Natriuret Pep Total Protein Albumin Prealbumin Cholesterol LDL Cholesterol Direct HDL Cholesterol Vitamin B12 Folate Urine WBC (Auto) Urine Creatinine Crossmatch 03/14/22 03/14/22 03/14/22 04:54 16:15 22:59 WBC RBC Hgb Hct MCH RDW Plt Count Lymph % (Auto) Lymph # (Auto) Seg Neutrophils % Seg Neuts % (Manual) Lymphocytes % (Manual) Nucleated RBC % Seg Neutrophils # Seg Neutrophils # Man Lymphocytes # (Manual) Monocytes # (Manual) Eosinophils # (Manual) PT INR D-Dimer Heparin Anti-Xa Level ABG pH ABG pO2 ABG HCO3 ABG O2 Saturation ABG Base Excess ABG Hemoglobin Oxyhemoglobin Sodium 129 L 128 L Potassium 3.5 L Chloride 97.1 L 97.0 L Carbon Dioxide BUN 24 H 31 H Creatinine 0.5 L Glucose 125 H 114 H POC Glucose 134 H Lactic Acid Uric Acid Calcium 7.0 L 7.0 L Phosphorus Magnesium Ferritin ALT Lactate Dehydrogenase Total Creatine Kinase CK-MB (CK-2) Troponin T NT-Pro-B Natriuret Pep Total Protein Albumin Prealbumin Cholesterol LDL Cholesterol Direct HDL Cholesterol Vitamin B12 Folate Urine WBC (Auto) Urine Creatinine Crossmatch 03/15/22 03/15/22 03/15/22 04:10 04:10 05:02 WBC 12.9 H RBC 2.55 L Hgb 7.1 L Hct 21.5 L MCH RDW 15.8 H Plt Count Lymph % (Auto) Lymph # (Auto) Seg Neutrophils % Seg Neuts % (Manual) 88.0 H Lymphocytes % (Manual) 5.0 L Nucleated RBC % Seg Neutrophils # Seg Neutrophils # Man 11.4 H Lymphocytes # (Manual) 0.6 L Monocytes # (Manual) Eosinophils # (Manual) 0.5 H PT INR D-Dimer Heparin Anti-Xa Level ABG pH ABG pO2 ABG HCO3 ABG O2 Saturation ABG Base Excess ABG Hemoglobin Oxyhemoglobin Sodium 127 L Potassium Chloride 96.3 L Carbon Dioxide 21 L BUN 33 H Creatinine Glucose 126 H POC Glucose 116 H Lactic Acid Uric Acid Calcium 7.4 L Phosphorus 1.20 L Magnesium Ferritin ALT Lactate Dehydrogenase Total Creatine Kinase CK-MB (CK-2) Troponin T NT-Pro-B Natriuret Pep Total Protein 5.3 L Albumin 2.1 L Prealbumin Cholesterol LDL Cholesterol Direct HDL Cholesterol Vitamin B12 Folate Urine WBC (Auto) Urine Creatinine Crossmatch 03/15/22 03/15/22 03/15/22 05:55 09:42 11:34 WBC RBC Hgb Hct MCH RDW Plt Count Lymph % (Auto) Lymph # (Auto) Seg Neutrophils % Seg Neuts % (Manual) Lymphocytes % (Manual) Nucleated RBC % Seg Neutrophils # Seg Neutrophils # Man Lymphocytes # (Manual) Monocytes # (Manual) Eosinophils # (Manual) PT INR D-Dimer Heparin Anti-Xa Level ABG pH ABG pO2 119.0 H ABG HCO3 ABG O2 Saturation ABG Base Excess -3.1 L ABG Hemoglobin 8.2 L Oxyhemoglobin Sodium Potassium Chloride Carbon Dioxide BUN Creatinine Glucose POC Glucose 125 H Lactic Acid Uric Acid Calcium Phosphorus Magnesium Ferritin ALT Lactate Dehydrogenase Total Creatine Kinase CK-MB (CK-2) Troponin T NT-Pro-B Natriuret Pep Total Protein Albumin Prealbumin Cholesterol LDL Cholesterol Direct HDL Cholesterol Vitamin B12 Folate Urine WBC (Auto) Urine Creatinine Crossmatch See Detail 03/15/22 03/16/22 03/16/22 20:55 04:50 04:50 WBC 16.9 H RBC 2.53 L Hgb 7.1 L Hct 21.5 L MCH RDW 16.0 H Plt Count Lymph % (Auto) Lymph # (Auto) Seg Neutrophils % Seg Neuts % (Manual) Lymphocytes % (Manual) Nucleated RBC % Seg Neutrophils # Seg Neutrophils # Man Lymphocytes # (Manual) Monocytes # (Manual) Eosinophils # (Manual) PT INR D-Dimer Heparin Anti-Xa Level ABG pH 7.320 L ABG pO2 122.8 H ABG HCO3 ABG O2 Saturation ABG Base Excess -4.1 L ABG Hemoglobin 7.0 L Oxyhemoglobin Sodium 132 L Potassium Chloride Carbon Dioxide 20 L BUN 44 H Creatinine Glucose 123 H POC Glucose Lactic Acid Uric Acid Calcium 7.6 L Phosphorus Magnesium Ferritin ALT Lactate Dehydrogenase Total Creatine Kinase CK-MB (CK-2) Troponin T NT-Pro-B Natriuret Pep Total Protein Albumin Prealbumin Cholesterol LDL Cholesterol Direct HDL Cholesterol Vitamin B12 Folate Urine WBC (Auto) Urine Creatinine Crossmatch 03/16/22 03/16/22 03/16/22 05:42 11:32 23:05 WBC RBC Hgb Hct MCH RDW Plt Count Lymph % (Auto) Lymph # (Auto) Seg Neutrophils % Seg Neuts % (Manual) Lymphocytes % (Manual) Nucleated RBC % Seg Neutrophils # Seg Neutrophils # Man Lymphocytes # (Manual) Monocytes # (Manual) Eosinophils # (Manual) PT INR D-Dimer Heparin Anti-Xa Level ABG pH ABG pO2 ABG HCO3 ABG O2 Saturation ABG Base Excess ABG Hemoglobin Oxyhemoglobin Sodium Potassium Chloride Carbon Dioxide BUN Creatinine Glucose POC Glucose 113 H 118 H 114 H Lactic Acid Uric Acid Calcium Phosphorus Magnesium Ferritin ALT Lactate Dehydrogenase Total Creatine Kinase CK-MB (CK-2) Troponin T NT-Pro-B Natriuret Pep Total Protein Albumin Prealbumin Cholesterol LDL Cholesterol Direct HDL Cholesterol Vitamin B12 Folate Urine WBC (Auto) Urine Creatinine Crossmatch 03/17/22 03/17/22 03/17/22 04:00 04:00 05:00 WBC 19.1 H RBC 2.44 L Hgb 6.6 L Hct 20.6 L MCH 27 L RDW 16.4 H Plt Count Lymph % (Auto) Lymph # (Auto) Seg Neutrophils % Seg Neuts % (Manual) 78.0 H Lymphocytes % (Manual) 2.0 L Nucleated RBC % Seg Neutrophils # Seg Neutrophils # Man 14.9 H Lymphocytes # (Manual) 0.4 L Monocytes # (Manual) 1.3 H Eosinophils # (Manual) 0.6 H PT INR D-Dimer Heparin Anti-Xa Level ABG pH 7.334 L ABG pO2 132.4 H ABG HCO3 ABG O2 Saturation ABG Base Excess -2.7 L ABG Hemoglobin 9.1 L Oxyhemoglobin Sodium 134 L Potassium Chloride Carbon Dioxide BUN 55 H Creatinine Glucose 125 H POC Glucose Lactic Acid Uric Acid Calcium 8.1 L Phosphorus Magnesium Ferritin ALT Lactate Dehydrogenase Total Creatine Kinase CK-MB (CK-2) Troponin T NT-Pro-B Natriuret Pep Total Protein Albumin Prealbumin Cholesterol LDL Cholesterol Direct HDL Cholesterol Vitamin B12 Folate Urine WBC (Auto) Urine Creatinine Crossmatch 03/17/22 03/17/22 03/17/22 05:40 15:30 17:48 WBC RBC Hgb 8.2 L Hct 24.9 L MCH RDW Plt Count Lymph % (Auto) Lymph # (Auto) Seg Neutrophils % Seg Neuts % (Manual) Lymphocytes % (Manual) Nucleated RBC % Seg Neutrophils # Seg Neutrophils # Man Lymphocytes # (Manual) Monocytes # (Manual) Eosinophils # (Manual) PT INR D-Dimer Heparin Anti-Xa Level ABG pH ABG pO2 ABG HCO3 ABG O2 Saturation ABG Base Excess ABG Hemoglobin Oxyhemoglobin Sodium Potassium Chloride Carbon Dioxide BUN Creatinine Glucose POC Glucose 115 H 117 H Lactic Acid Uric Acid Calcium Phosphorus Magnesium Ferritin ALT Lactate Dehydrogenase Total Creatine Kinase CK-MB (CK-2) Troponin T NT-Pro-B Natriuret Pep Total Protein Albumin Prealbumin Cholesterol LDL Cholesterol Direct HDL Cholesterol Vitamin B12 Folate Urine WBC (Auto) Urine Creatinine Crossmatch 03/17/22 03/18/22 03/18/22 23:54 05:04 05:20 WBC RBC Hgb Hct MCH RDW Plt Count Lymph % (Auto) Lymph # (Auto) Seg Neutrophils % Seg Neuts % (Manual) Lymphocytes % (Manual) Nucleated RBC % Seg Neutrophils # Seg Neutrophils # Man Lymphocytes # (Manual) Monocytes # (Manual) Eosinophils # (Manual) PT INR D-Dimer Heparin Anti-Xa Level ABG pH 7.302 L ABG pO2 71.0 L ABG HCO3 ABG O2 Saturation 94.9 L ABG Base Excess -4.3 L ABG Hemoglobin 9.6 L Oxyhemoglobin 92.9 L Sodium 135 L Potassium Chloride Carbon Dioxide BUN 66 H Creatinine Glucose 122 H POC Glucose 114 H Lactic Acid Uric Acid Calcium 8.2 L Phosphorus Magnesium Ferritin ALT Lactate Dehydrogenase Total Creatine Kinase CK-MB (CK-2) Troponin T NT-Pro-B Natriuret Pep Total Protein 5.4 L Albumin 2.0 L Prealbumin Cholesterol LDL Cholesterol Direct HDL Cholesterol Vitamin B12 Folate Urine WBC (Auto) Urine Creatinine Crossmatch 03/18/22 03/18/22 03/18/22 05:20 06:44 12:04 WBC 23.9 H RBC 2.88 L Hgb 8.1 L Hct 25.1 L MCH RDW 16.0 H Plt Count Lymph % (Auto) Lymph # (Auto) Seg Neutrophils % Seg Neuts % (Manual) 89.0 H Lymphocytes % (Manual) 7.5 L Nucleated RBC % Seg Neutrophils # Seg Neutrophils # Man 21.3 H Lymphocytes # (Manual) Monocytes # (Manual) Eosinophils # (Manual) PT INR D-Dimer Heparin Anti-Xa Level ABG pH ABG pO2 ABG HCO3 ABG O2 Saturation ABG Base Excess ABG Hemoglobin Oxyhemoglobin Sodium Potassium Chloride Carbon Dioxide BUN Creatinine Glucose POC Glucose 107 H 119 H Lactic Acid Uric Acid Calcium Phosphorus Magnesium Ferritin ALT Lactate Dehydrogenase Total Creatine Kinase CK-MB (CK-2) Troponin T NT-Pro-B Natriuret Pep Total Protein Albumin Prealbumin Cholesterol LDL Cholesterol Direct HDL Cholesterol Vitamin B12 Folate Urine WBC (Auto) Urine Creatinine Crossmatch 03/19/22 03/19/22 03/19/22 05:15 08:59 08:59 WBC 30.4 H RBC 2.78 L Hgb 7.7 L Hct 24.2 L MCH RDW 16.4 H Plt Count Lymph % (Auto) Lymph # (Auto) Seg Neutrophils % Seg Neuts % (Manual) Lymphocytes % (Manual) Nucleated RBC % Seg Neutrophils # Seg Neutrophils # Man Lymphocytes # (Manual) Monocytes # (Manual) Eosinophils # (Manual) PT INR D-Dimer Heparin Anti-Xa Level ABG pH 7.341 L ABG pO2 78.1 L ABG HCO3 ABG O2 Saturation ABG Base Excess -4.5 L ABG Hemoglobin 9.5 L Oxyhemoglobin Sodium 132 L Potassium 5.5 H Chloride Carbon Dioxide 19 L BUN 84 H Creatinine Glucose 124 H POC Glucose Lactic Acid Uric Acid Calcium Phosphorus Magnesium Ferritin ALT Lactate Dehydrogenase Total Creatine Kinase CK-MB (CK-2) Troponin T NT-Pro-B Natriuret Pep Total Protein Albumin Prealbumin Cholesterol LDL Cholesterol Direct HDL Cholesterol Vitamin B12 Folate Urine WBC (Auto) Urine Creatinine Crossmatch 03/19/22 03/19/22 03/19/22 14:40 14:40 18:37 WBC RBC Hgb Hct MCH RDW Plt Count Lymph % (Auto) Lymph # (Auto) Seg Neutrophils % Seg Neuts % (Manual) Lymphocytes % (Manual) Nucleated RBC % Seg Neutrophils # Seg Neutrophils # Man Lymphocytes # (Manual) Monocytes # (Manual) Eosinophils # (Manual) PT INR D-Dimer Heparin Anti-Xa Level ABG pH 7.337 L ABG pO2 41.2 L ABG HCO3 ABG O2 Saturation 74.8 L ABG Base Excess -4.5 L ABG Hemoglobin 7.9 L Oxyhemoglobin 72.9 L Sodium Potassium Chloride Carbon Dioxide BUN Creatinine Glucose POC Glucose 120 H Lactic Acid Uric Acid Calcium Phosphorus Magnesium Ferritin ALT Lactate Dehydrogenase Total Creatine Kinase CK-MB (CK-2) Troponin T NT-Pro-B Natriuret Pep Total Protein Albumin Prealbumin Cholesterol LDL Cholesterol Direct HDL Cholesterol Vitamin B12 Folate Urine WBC (Auto) Urine Creatinine 34.4 H Crossmatch 03/19/22 03/20/22 03/20/22 23:15 05:20 05:20 WBC 29.5 H RBC 2.76 L Hgb 7.6 L Hct 23.7 L MCH 27 L RDW 16.6 H Plt Count Lymph % (Auto) Lymph # (Auto) Seg Neutrophils % Seg Neuts % (Manual) Lymphocytes % (Manual) Nucleated RBC % Seg Neutrophils # Seg Neutrophils # Man Lymphocytes # (Manual) Monocytes # (Manual) Eosinophils # (Manual) PT INR D-Dimer Heparin Anti-Xa Level ABG pH ABG pO2 ABG HCO3 ABG O2 Saturation ABG Base Excess ABG Hemoglobin Oxyhemoglobin Sodium Potassium Chloride Carbon Dioxide BUN 96 H Creatinine Glucose 141 H POC Glucose 125 H Lactic Acid Uric Acid Calcium Phosphorus Magnesium Ferritin ALT Lactate Dehydrogenase Total Creatine Kinase CK-MB (CK-2) Troponin T NT-Pro-B Natriuret Pep Total Protein Albumin Prealbumin Cholesterol LDL Cholesterol Direct HDL Cholesterol Vitamin B12 Folate Urine WBC (Auto) Urine Creatinine Crossmatch 03/20/22 03/20/22 03/21/22 06:09 10:05 04:00 WBC RBC Hgb Hct MCH RDW Plt Count Lymph % (Auto) Lymph # (Auto) Seg Neutrophils % Seg Neuts % (Manual) Lymphocytes % (Manual) Nucleated RBC % Seg Neutrophils # Seg Neutrophils # Man Lymphocytes # (Manual) Monocytes # (Manual) Eosinophils # (Manual) PT INR D-Dimer Heparin Anti-Xa Level ABG pH 7.278 L ABG pO2 71.0 L ABG HCO3 ABG O2 Saturation 92.6 L ABG Base Excess ABG Hemoglobin 8.2 L Oxyhemoglobin 90.5 L Sodium 135 L Potassium 5.7 H D Chloride 97.4 L Carbon Dioxide 21 L BUN 104 H Creatinine 1.3 H Glucose 118 H POC Glucose 121 H Lactic Acid Uric Acid Calcium Phosphorus Magnesium Ferritin ALT Lactate Dehydrogenase Total Creatine Kinase CK-MB (CK-2) Troponin T NT-Pro-B Natriuret Pep Total Protein Albumin Prealbumin Cholesterol LDL Cholesterol Direct HDL Cholesterol Vitamin B12 Folate Urine WBC (Auto) Urine Creatinine Crossmatch 03/21/22 03/21/22 03/21/22 04:40 15:30 21:00 WBC 25.6 H RBC 2.61 L Hgb 7.3 L Hct 22.8 L MCH RDW 16.8 H Plt Count 462 H Lymph % (Auto) Lymph # (Auto) Seg Neutrophils % Seg Neuts % (Manual) 71.0 H Lymphocytes % (Manual) 2.0 L Nucleated RBC % 1.0 H Seg Neutrophils # Seg Neutrophils # Man 18.2 H Lymphocytes # (Manual) 0.5 L Monocytes # (Manual) 1.8 H Eosinophils # (Manual) 0.8 H PT INR D-Dimer Heparin Anti-Xa Level ABG pH 7.197 L* 7.284 L ABG pO2 76.6 L 68.6 L ABG HCO3 ABG O2 Saturation 92.8 L ABG Base Excess -5.7 L -3.7 L ABG Hemoglobin 10.0 L 7.6 L Oxyhemoglobin 94.3 L 90.7 L Sodium Potassium Chloride Carbon Dioxide BUN Creatinine Glucose POC Glucose Lactic Acid Uric Acid Calcium Phosphorus Magnesium Ferritin ALT Lactate Dehydrogenase Total Creatine Kinase CK-MB (CK-2) Troponin T NT-Pro-B Natriuret Pep Total Protein Albumin Prealbumin Cholesterol LDL Cholesterol Direct HDL Cholesterol Vitamin B12 Folate Urine WBC (Auto) Urine Creatinine Crossmatch 03/22/22 03/22/22 03/22/22 04:10 04:10 09:00 WBC 32.9 H RBC 2.60 L Hgb 7.4 L Hct 22.3 L MCH RDW 16.8 H Plt Count 517 H Lymph % (Auto) Lymph # (Auto) Seg Neutrophils % Seg Neuts % (Manual) Lymphocytes % (Manual) Nucleated RBC % Seg Neutrophils # Seg Neutrophils # Man Lymphocytes # (Manual) Monocytes # (Manual) Eosinophils # (Manual) PT INR D-Dimer Heparin Anti-Xa Level ABG pH ABG pO2 ABG HCO3 19.9 L ABG O2 Saturation ABG Base Excess -4.9 L ABG Hemoglobin 7.5 L Oxyhemoglobin Sodium Potassium 5.4 H Chloride 97.2 L Carbon Dioxide 21 L BUN 116 H Creatinine 1.6 H Glucose 142 H POC Glucose Lactic Acid Uric Acid Calcium Phosphorus Magnesium Ferritin ALT Lactate Dehydrogenase Total Creatine Kinase CK-MB (CK-2) Troponin T NT-Pro-B Natriuret Pep Total Protein Albumin Prealbumin Cholesterol LDL Cholesterol Direct HDL Cholesterol Vitamin B12 Folate Urine WBC (Auto) Urine Creatinine Crossmatch 03/22/22 03/22/22 03/22/22 09:30 13:02 17:49 WBC RBC Hgb Hct MCH RDW Plt Count Lymph % (Auto) Lymph # (Auto) Seg Neutrophils % Seg Neuts % (Manual) Lymphocytes % (Manual) Nucleated RBC % Seg Neutrophils # Seg Neutrophils # Man Lymphocytes # (Manual) Monocytes # (Manual) Eosinophils # (Manual) PT 17.2 H INR 1.25 H D-Dimer Heparin Anti-Xa Level ABG pH ABG pO2 ABG HCO3 ABG O2 Saturation ABG Base Excess ABG Hemoglobin Oxyhemoglobin Sodium Potassium Chloride Carbon Dioxide BUN Creatinine Glucose POC Glucose 120 H 118 H Lactic Acid Uric Acid Calcium Phosphorus Magnesium Ferritin ALT Lactate Dehydrogenase Total Creatine Kinase CK-MB (CK-2) Troponin T NT-Pro-B Natriuret Pep Total Protein Albumin Prealbumin Cholesterol LDL Cholesterol Direct HDL Cholesterol Vitamin B12 Folate Urine WBC (Auto) Urine Creatinine Crossmatch 03/23/22 03/23/22 03/23/22 04:20 04:20 04:25 WBC 37.3 H RBC 2.57 L Hgb 7.2 L Hct 22.3 L MCH RDW 16.6 H Plt Count 580 H Lymph % (Auto) Lymph # (Auto) Seg Neutrophils % Seg Neuts % (Manual) Lymphocytes % (Manual) Nucleated RBC % Seg Neutrophils # Seg Neutrophils # Man Lymphocytes # (Manual) Monocytes # (Manual) Eosinophils # (Manual) PT INR D-Dimer Heparin Anti-Xa Level ABG pH 7.333 L ABG pO2 70.9 L ABG HCO3 ABG O2 Saturation 93.3 L ABG Base Excess -5.0 L ABG Hemoglobin 7.0 L Oxyhemoglobin 91.2 L Sodium Potassium Chloride Carbon Dioxide 19 L BUN 125 H Creatinine 1.9 H Glucose 133 H POC Glucose Lactic Acid Uric Acid Calcium 8.2 L Phosphorus Magnesium Ferritin ALT Lactate Dehydrogenase Total Creatine Kinase CK-MB (CK-2) Troponin T NT-Pro-B Natriuret Pep Total Protein Albumin Prealbumin Cholesterol LDL Cholesterol Direct HDL Cholesterol Vitamin B12 Folate Urine WBC (Auto) Urine Creatinine Crossmatch 03/23/22 03/23/22 03/23/22 05:40 07:25 11:13 WBC RBC Hgb Hct MCH RDW Plt Count Lymph % (Auto) Lymph # (Auto) Seg Neutrophils % Seg Neuts % (Manual) Lymphocytes % (Manual) Nucleated RBC % Seg Neutrophils # Seg Neutrophils # Man Lymphocytes # (Manual) Monocytes # (Manual) Eosinophils # (Manual) PT INR D-Dimer Heparin Anti-Xa Level 0.29 L ABG pH ABG pO2 ABG HCO3 ABG O2 Saturation ABG Base Excess ABG Hemoglobin Oxyhemoglobin Sodium Potassium Chloride Carbon Dioxide BUN Creatinine Glucose POC Glucose 121 H 112 H Lactic Acid Uric Acid Calcium Phosphorus Magnesium Ferritin ALT Lactate Dehydrogenase Total Creatine Kinase CK-MB (CK-2) Troponin T NT-Pro-B Natriuret Pep Total Protein Albumin Prealbumin Cholesterol LDL Cholesterol Direct HDL Cholesterol Vitamin B12 Folate Urine WBC (Auto) Urine Creatinine Crossmatch Allied health notes reviewed: RT
[2022-03-24] MEDS: MEROPENEM/NS 1 GRAM/100 ML 1 GRAM/100 ML BAG IV SCH ×3 (00:10→22:36)
[2022-03-24] MEDS: metroNIDAZOLE/NS 500 MG/100 ML 500 MG/100 ML BAG IV SCH ×3 (00:11→17:10)
[2022-03-24] MEDS: fentaNYL DRIP Premix 2,000 MCG/100 ML BAG IV SCH ×5 (00:13→19:24)
[2022-03-24] MEDS: VANCOMYCIN 250 MG/10 ML ORAL LIQD PO SCH ×4 (00:16→17:09)
[2022-03-24] MEDS: NORepinephrine/NS 8 MG-250 ML 8 MG/250 ML INFUS..BTL IV SCH ×3 (02:50→21:30)
[2022-03-24 04:54] LABS: ABG Base Excess -8.6 mmol/L (-2.0-3.0); ABG HCO3 18.1 mmol/L (20.0-26.0); ABG Methemoglobin 0.5 % (0.0-1.5); ABG Oxygen Saturation 96.8 % (95.0-99.0); ABG PCO2 43.2 mm Hg; ABG PH 7.24 pH Units (7.350-7.450); ABG PO2 96.8 mm Hg (80.0-90.0)
[2022-03-24 05:00] LABS: Calcium 8.1 mg/dL (8.4-10.2)
[2022-03-24] MEDS ORDERED: SODIUM BICARBONATE 150 MEQ in DEXTROSE 5% IN WATER 1,000 ML IV SCH (05:11)
--- NOTE | 2022-03-24 07:41 | Progress Note ---
Assessment and Plan 1. Acute kidney injury: Vasomotor TANIYA in the setting of shock. ATN. Patient has medina catheter. Monitor renal function. Creatinine level is increasing. UOP is low. Avoid nephrotoxic agents. Meds dosage based on GFR. 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 Patient remain on Levophed and MAP in mid 60s. Also started on additional IV pressor. Patient is not stabel for hemodialysis at this point. 2. 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 Associated volume overload. Sodium level is better / fluctuates. 3. FEN: Hyperkalemia, Kayaxalate prn, monitor. Volume overload, diuretics as BP allows. Anion-gap metabolic acdosis, 2/2 lactic acidosis & TANIYA, on Sod bocarb drip, monitor. Replete lytes as needed. Monitor lytes and volume status. 4. Acute Hypoxemic Respiratory Failure / Multifocal Pneumonia / CAP: Chest X-ray was concerning for multifocal pneumonia. Eleavted D-dimer. Patient intubated on 03/10 due to tachypnea and worsening MS. 5. Hypotension / NSTEMI: Presented with hypotension. on Levophed and Midodrine. Wean as tolerated. Followed Cards. 6. Sepsis: Likley 2/2 Multifocal Pneumonia/CAP. Covid negative. Abx. Monitor. 7. Acute Metabolic Encephalopathy: H/o Seizure Disorder. Now intubated on vent. Keppra. Seizure precautions. 8. MS with paraplegia: Bedbound status. Supportive care. Prognosis is slim. D/w ICU team. Subjective: Patient was seen and examined at the bedside. Examination: General appearance: well-developed, appears stated age, no distress, intubated, on vent HEENT: ATNC, pupils equal, no icterus Neck: trachea midline Respiratory: decreased breath sounds bilaterally Cardiology: regular, S1S2, no murmur Gastrointestinal: soft, normoactive bowel sounds, not tender Integumentary: no obvious rash Neurologic: not responding Ext: 2+ LE, dependent edema and anasarca noted : medina catheter Subjective Date of service: 03/24/22 Principal diagnosis: AHRF; Multifocal Pneumonia; Septic shock; NSTEMI; AMS; Seizures Objective - Vital Signs Vital signs: Vital Signs - 12hr 03/23/22 03/23/22 03/23/22 19:45 20:00 20:15 Temperature Pulse Rate 84 82 81 Respiratory 29 H 28 H 28 H Rate Respiratory Rate [no pain] Blood Pressure 103/61 101/66 97/61 O2 Sat by Pulse 100 Oximetry 03/23/22 03/23/22 03/23/22 20:30 20:31 20:45 Temperature Pulse Rate 82 81 82 Respiratory 29 H 29 H Rate Respiratory Rate [no pain] Blood Pressure 97/61 102/61 96/65 O2 Sat by Pulse 98 100 Oximetry 03/23/22 03/23/22 03/23/22 21:01 21:15 21:31 Temperature Pulse Rate 82 82 82 Respiratory 28 H 27 H 28 H Rate Respiratory Rate [no pain] Blood Pressure 99/65 98/65 101/58 O2 Sat by Pulse 99 100 Oximetry 03/23/22 03/23/22 03/23/22 21:45 21:58 22:00 Temperature Pulse Rate 84 84 84 Respiratory 28 H 28 H 28 H Rate Respiratory 26 H Rate [no pain] Blood Pressure 98/58 101/61 O2 Sat by Pulse 95 Oximetry 03/23/22 03/23/22 03/23/22 22:15 22:30 22:45 Temperature Pulse Rate 84 85 84 Respiratory 28 H 28 H 28 H Rate Respiratory Rate [no pain] Blood Pressure 102/60 100/60 100/60 O2 Sat by Pulse Oximetry 03/23/22 03/23/22 03/23/22 23:00 23:15 23:30 Temperature Pulse Rate 84 83 84 Respiratory 28 H 28 H 28 H Rate Respiratory Rate [no pain] Blood Pressure 102/58 88/59 93/53 O2 Sat by Pulse Oximetry 03/23/22 03/23/22 03/23/22 23:33 23:35 23:45 Temperature Pulse Rate 83 84 83 Respiratory 28 H 28 H 28 H Rate Respiratory Rate [no pain] Blood Pressure 93/53 99/57 O2 Sat by Pulse 100 95 Oximetry 03/24/22 03/24/22 03/24/22 00:00 00:15 00:20 Temperature 98.0 F Pulse Rate 84 82 82 Respiratory 28 H 28 H 28 H Rate Respiratory Rate [no pain] Blood Pressure 96/57 89/55 O2 Sat by Pulse 95 Oximetry 03/24/22 03/24/22 03/24/22 00:30 00:45 00:46 Temperature Pulse Rate 84 80 81 Respiratory 28 H 26 H Rate Respiratory Rate [no pain] Blood Pressure 99/57 99/57 96/62 O2 Sat by Pulse 100 100 Oximetry 03/24/22 03/24/22 03/24/22 01:00 01:15 01:31 Temperature Pulse Rate 83 83 82 Respiratory 28 H 28 H 28 H Rate Respiratory Rate [no pain] Blood Pressure 96/57 99/54 95/58 O2 Sat by Pulse 95 Oximetry 03/24/22 03/24/22 03/24/22 01:45 02:00 02:15 Temperature Pulse Rate 85 84 83 Respiratory 28 H 28 H 28 H Rate Respiratory Rate [no pain] Blood Pressure 102/48 92/60 83/56 O2 Sat by Pulse Oximetry 03/24/22 03/24/22 03/24/22 02:30 02:45 03:00 Temperature Pulse Rate 84 80 88 Respiratory 28 H 28 H 22 Rate Respiratory Rate [no pain] Blood Pressure 83/53 84/41 114/70 O2 Sat by Pulse 97 100 95 Oximetry 03/24/22 03/24/22 03/24/22 03:15 03:30 03:45 Temperature Pulse Rate 85 82 83 Respiratory 29 H 28 H 28 H Rate Respiratory Rate [no pain] Blood Pressure 95/60 92/58 95/56 O2 Sat by Pulse Oximetry 03/24/22 03/24/22 03/24/22 03:58 04:00 04:15 Temperature 97.6 F Pulse Rate 80 83 Respiratory 16 28 H Rate Respiratory Rate [no pain] Blood Pressure 91/55 86/62 O2 Sat by Pulse Oximetry 03/24/22 03/24/22 03/24/22 04:30 04:45 04:58 Temperature Pulse Rate 81 84 81 Respiratory 28 H 28 H 28 H Rate Respiratory Rate [no pain] Blood Pressure 86/48 92/59 O2 Sat by Pulse 97 96 95 Oximetry 03/24/22 03/24/22 03/24/22 05:00 05:15 05:30 Temperature Pulse Rate 80 81 81 Respiratory 30 H 23 15 Rate Respiratory Rate [no pain] Blood Pressure 92/59 83/59 80/59 O2 Sat by Pulse 95 96 Oximetry 03/24/22 03/24/22 03/24/22 05:45 06:00 06:15 Temperature Pulse Rate 84 84 82 Respiratory 24 20 31 H Rate Respiratory Rate [no pain] Blood Pressure 87/57 95/60 99/60 O2 Sat by Pulse Oximetry - Lab 03/24/22 09:23 03/24/22 04:25 Most recent lab results ABG pH 7.240 pH Units (7.350-7.450) L 03/24/22 04:40 ABG pCO2 43.2 mm Hg 03/24/22 04:40 ABG pO2 96.8 mm Hg (80.0-90.0) H 03/24/22 04:40 ABG HCO3 18.1 mmol/L (20.0-26.0) L 03/24/22 04:40 ABG O2 Saturation 96.8 % (95.0-99.0) 03/24/22 04:40 Calcium 8.1 mg/dL (8.4-10.2) L 03/24/22 04:25 Phosphorus 3.70 mg/dL (2.5-4.5) 03/18/22 05:20 Magnesium 2.00 mg/dL (1.7-2.3) 03/18/22 05:20 Urine Creatinine 34.4 mg/dL (0.1-20.0) H 03/19/22 14:40 Urine Sodium 18 mmol/L 03/19/22 14:40 Medications & Allergies - Medications Allergies/Adverse Reactions: Allergies Penicillins Allergy (Mild, Verified 01/11/19 12:20) Rash . Home Medications: Home Medications Medication Instructions Recorded Confirmed Last Taken Type Ciprofloxacin HCl [Ciprofloxacin 500 mg PO Q12H #14 tab 01/11/19 Unknown Rx TAB] levETIRAcetam [Keppra TAB] 500 mg PO BID #60 tablet 01/11/19 Unknown Rx Active Medications: Generic Name Dose Route Start Last Admin Trade Name Freq PRN Reason Stop Dose Admin Acetaminophen 650 mg 03/13/22 05:50 03/19/22 18:38 Acetaminophen 325 Mg/10.15 Ml Oral Liqd Unit Dose FEEDTUBE 650 mg Q6H PRN Administration Non Cardiac Pain or Temp>100.5 Bisacodyl 10 mg 03/15/22 10:00 Bisacodyl 5 Mg Tab PO QDAY PRN Constipation Famotidine 10 mg 03/22/22 10:00 03/23/22 22:15 Famotidine 10 Mg Tab FEEDTUBE 10 mg BID SHAHBAZ Administration Fentanyl 50 mcg 03/10/22 10:58 03/14/22 20:48 Fentanyl 100 Mcg/2 Ml Inj IV 50 mcg Q10MIN PRN Administration ANALGESIA Hydrophilic Ointment 1 applic 03/10/22 11:03 Lip Therapy Vaseline TP Q2HR PRN Dry Lips Fentanyl Citrate 2,000 mcg in 100 mls @ 4.16 mls/hr 03/10/22 11:00 03/24/22 06:01 Fentanyl Drip Premix IV 4 mcg/kg/hr TITR SHAHBAZ 16.64 mls/hr Administration Protocol 1 MCG/KG/HR NORepinephrine/NS 8 MG-250 ML 8 mg in 250 mls @ 3.75 mls/hr 03/10/22 11:00 03/24/22 02:52 Norepinephrine/Ns 8 Mg-250 Ml (Double Conc) IV 10 mcg/min TITRATE SHAHBAZ 18.75 mls/hr Titration Protocol 2 MCG/MIN Vasopressin 20 unit/ Sodium 101 mls @ 9.09 mls/hr 03/21/22 15:00 03/23/22 18:31 Chloride IV Infused TITR SHAHBAZ Titration Protocol 0.03 UNITS/MIN Levofloxacin/Dextrose 750 mg in 150 mls @ 100 mls/hr 03/23/22 12:00 03/23/22 12:32 Levaquin 750mg/150ml IV 03/27/22 13:29 100 mls/hr Q48H SHAHBAZ Administration Protocol Heparin Sodium/Sodium Chloride 25,000 unit in 500 mls @ 24 mls/hr 03/22/22 09:00 03/23/22 08:09 Heparin/ 0.45% Nacl-25,000 Unit/500 Ml IV 1,000 units/hr TITR SHAHBAZ 20 mls/hr Administration Protocol 1,200 UNITS/HR Metronidazole 500 mg in 100 mls @ 100 mls/hr 03/22/22 09:00 03/24/22 00:11 Flagyl 500 Mg/100 Ml IV 100 mls/hr Q8H SHAHBAZ Administration Protocol Meropenem/Sodium Chloride 1 gram in 100 mls @ 100 mls/hr 03/23/22 11:00 03/24/22 00:10 Merrem/Ns 1 Gram/100 Ml IV 100 mls/hr Q12H SHAHBAZ Administration Protocol Vancomycin HCl 1,250 mg/ 275 mls @ 166.667 mls/hr 03/23/22 11:45 03/23/22 12:25 Sodium Chloride IV 166.667 mls/hr Q24H SHAHBAZ Administration Sodium Bicarbonate 150 meq/ 1,150 mls @ 50 mls/hr 03/24/22 05:11 03/24/22 05:30 Dextrose IV 50 mls/hr DIRECT SHAHBAZ Administration Levetiracetam 500 mg 03/12/22 10:00 03/23/22 22:15 Levetiracetam 500 Mg/5 Ml Oral Liqd FEEDTUBE 500 mg BID SHAHBAZ Administration Magnesium Hydroxide 30 ml 03/10/22 02:56 Magnesium Hydroxide (Mom) Oral Liqd Udc PO Q4H PRN Constipation Midodrine 15 mg 03/21/22 16:00 03/23/22 16:06 Midodrine 5 Mg Tab PO 15 mg TID@0800,1200,1600 SHAHBAZ Administration Multi-Ingred Cream/Lotion/Oil/Oint 1 applic 03/10/22 11:03 Mineral Oil/Petrolatum, White Ophth Oint 3.5 Gm OU Q4HR PRN Dry Eye(s) Ondansetron HCl 4 mg 03/10/22 02:56 Ondansetron 4 Mg/2 Ml Inj IV Q8H PRN Nausea And Vomiting Scopolamine 1 each 03/21/22 10:00 03/21/22 10:28 Scopolamine Transdermal Patch 72 Hr TD 1 each Q3D SHAHBAZ Administration Sodium Chloride 10 ml 03/10/22 10:00 03/23/22 22:15 Sodium Chloride 0.9% 10 Ml Flush Syringe IV 10 ml BID SHAHBAZ Administration Sodium Chloride 10 ml 03/10/22 02:56 Sodium Chloride 0.9% 10 Ml Flush Syringe IV PRN PRN LINE FLUSH Vancomycin HCl 500 mg 03/22/22 12:00 03/24/22 05:40 Vancomycin 250 Mg/10 Ml Oral Liqd PO 500 mg Q6HR SHAHBAZ Administration Protocol
[2022-03-24 07:46] LABS: Hematocrit 24.5 % (30.3-42.9); Hemoglobin 7.3 gm/dl (10.1-14.3)
[2022-03-24] MEDS: MIDODRINE 5 MG TAB PO SCH ×3 (08:36→17:09)
[2022-03-24] MEDS: HEPARIN/ 0.45% NACL DRIP 25,000 UNIT/500 ML BAG IV SCH (09:40)
[2022-03-24 09:52] LABS: Hematocrit 24.3 % (30.3-42.9); Hemoglobin 7.5 gm/dl (10.1-14.3); Mean Corpuscular HGB Conc 31 % (30-34); Mean Corpuscular Volume 89 fl (79-97); Platelet Count 667 K/mm3 (140-440); Red Blood Count 2.73 M/mm3 (3.65-5.03)
--- NOTE | 2022-03-24 10:56 | Ultrasound Report ---
ULTRASOUND RENAL INDICATION: Acute renal failure.. COMPARISON: No relevant prior imaging study available. FINDINGS: RIGHT KIDNEY: Size: 9.5 x 3.6 cm. Echogenicity: Increased. Parenchymal thickness: Mild thinning. Hydronephrosis: None. Cyst or mass: None. Stones: None. LEFT KIDNEY: Size: 9.1 x 4.6 cm. Echogenicity: Normal. Parenchymal thickness: Normal. Hydronephrosis: None. Cyst or mass: None. Stones: None. Urinary Bladder: Collapsed and not well evaluated. Free Fluid: A small amount of free fluid is seen along the pelvis. Additional Findings: None. IMPRESSION 1. Increased right renal echotexture is compatible with the provided history of acute renal failure. No other acute sonographic abnormality of the kidneys. 2. Limited evaluation of the bladder due to it being collapsed. 3. Small amount of ascites. Signer Name: Tyrese Oneal MD Signed: 03/24/2022 10:51 AM Workstation Name: [id number]
[2022-03-24] MEDS: SCOPOLAMINE TRANSDERMAL PATCH 72 HR TD SCH (11:05)
[2022-03-24] MEDS: levETIRAcetam 500 MG/5 ML ORAL LIQD FEEDTUBE SCH ×2 (11:05→22:36)
[2022-03-24] MEDS: FAMOTIDINE 10 MG TAB FEEDTUBE SCH ×2 (11:05→22:36)
--- NOTE | 2022-03-24 11:53 | Progress Note ---
Assessment and Plan Assessment and plan: This is a 61-year-old female with known past medical history of Multiple Sclerosis and seizure disorder admitted for sepsis, Hyponatremia, and acute hypoxic respiratory failure requiring ventilatory support Hospital Course to Date: 03/10: S/p intubation this am due to tachypnea and worsen mental status. Current sedated and stable on the vent. Patient is now on low dose Levophed gtt due to hypotension. Presented with a Na level of 119, on continuous NS at 125ml, repeat BMP pending. Continue IVF hydration and serial Na Q6hrs. Nephrology is also following. Continue empiric IV Abx for CAP, COVID PCR pending, ID consult pending. D-Dimer also elevated, BLE doppler ordered, therapeutic Lovenox initiated. D/W CCM patient is too unstable for transport at this time, possible CTA chest in the am or once patient is more stable. Cardiology was also consulted for elevated troponin X2, EKG noted with no significant ST changes, 2D echo pending. Resume home AEDs, continue seizure precautions. Monitor and replace electrolytes as needed 03/11: Intubated and low dose fentanyl gtt. Open eyes spontaneously but does not track, not following commands. NA level 132 this am, Nabcarb gtt initiated per Nephro. CT head/brain w/o con ordered to r/o intracranial abnormality. Wean off sedation to better assess mental status. Remains on Levophed gtt, afebrile, but with leukocytosis this am. This am CXR and ABG noted, with significant improvement. D/w CCM, PE less likely will hold off on CTA chest for now. Lovenox switched to Qday. Continue empiric IV Abx, ID consult pending. 03/12: Discontinue bicarb gtt, replete phos and potassium, added miralax. Remain on levo and fent gtt 03/13: MRI brain/C-spine completed, EEG completed. Hyponatremia improved, patient remains on Levophed. Had a temperature of 101.3 remains on cefepime. Will defer to ID for abx. Will reculture on next temperature spike. 03/14: Overnight patient had hypoxia issues and FiO2 was increased to 100%, received lasix with repeat dose in AM. Hypotension and increase in levophed. Replete K. 03/15: hypoxia overnight and currently on 100%. RN attempted to lay flat and patient desatted to 88%. Will attempt again later today. Given lasix again. Hopeful to be able to have MRI today. Type and screen today for downtrending h/h, Wean FiO2 as tolerated, repelted phos with sodium phos. 03/16: hypoxic, fio2: 80%, desats on positional movements. Remains on levophed gtt, attempting to wean off. Remains too unstable for MRI brain. May benefit from steroids if altered mentation believed to be from MS flare. 03/17: Hypoxic overnight. FIO2 increased to 95%. Continue icu level supportive care with vent, levophed Gtt, merrem. Hgb 6.6 this AM, ordered 1 unit prbc. 03/18: WBC uptrending, persisting fevers. will re-culture with urine cx, sputum cx and bcx. Overall poor prognosis. Will attempt GOK discussion with family. 03/19: With persistent episodes of hypoxia overnight and this am. On 65% Fio2 and peep of 14 this am. Fevers improved, but leukocytosis worsen this am. Repeat cultures pending, continue current IV Abx per ID. Patient remains on Levophed gtt. X1 dose of kayexalate this am for hyperkalemia, worsening azotemia also noted, Nephrology is also following. Overall poor prognosis, possible GOC discussion with patient's son sometimes this week. 03/20: Up to 80% Fio2 and peep of 14 this am, still with periods of hypoxia with mild stimuli/movement. Severe generalized edema today with worsening CXR. Azot emia worsen s/p bcarb gtt. D/w Nephro, X1 dose of IV lasix and 25% Albumin given and Midodrine TID added. Overal poor prognosis. Possible GOC discussion with patient's son sometimes this week. 03/21: Mentation unchanged, remains on high vent settings. Patient did not respond to IV lasix yesterday, only 415ml UOP in the last 24hrs. Renal function worsen this am with hyperkalemia, X1 dose of kayexalate ordered. Nephrology is also following. Continue to monitor renal function and electrolytes. Possible phone conference today with son by the attending. Very poor prognosis. 03/22: Remains on high vent setting, respiratory acidosis noted from recent ABG. Vent settings adjusted by [facility]. Repeat ABG pending. With worsening renal function this am, additional Kayexalate given. Sudheer in WBCs this am despite IV Abx, now on 2 pressors, recent cultures with no growth to date. Flagyl and PO Vanco initiated empirically, C.Diff PCR pending. ID is also following. Heparin gtt also initiated per CCM, c/f for possible pulmonary shunting. Thorough discussion with patient's son and the attending yesterday in regards to patient's condition, overall poor prognosis, and goal of care. Patient's son wants all ag gressive treatment and measures including trach and PEG at this time. Patient remains a FULL code status. 03/23: Condition is unchanged. Febrile this am with worsen leukocytosis. Back on merem, now on IV and PO vanco, Levaquin, and flagyl per ID. C.Diff PCR pending. ID recommendation noted. D/w CCM, plan for CT chest/Abd/Pelvis today. 03/24: Continue to decompensated, at 100% Fio2 and 14 of PEEP this am. Patient too unstable for transport due to worsening hypotension, now on Bicarb gtt. Remain on Levophed gtt and heparin gtts. C.diff PCR came back positive. Leukmoid jaden ction with thromocytosis noted, patient remains on IV Abx & PO vanco per ID. Renal function continue to decline, D/w Nephrology patient is too unstable for HD at this time due to high pressor requirement. Very poor prognosis. Assessment and Plan #Acute Hypoxemic Respiratory Failure #ARDS #Multifocal Pneumonia/CAP #C/f Pulmonary Shunting - Brought in from home by EMS due to SOB and difficulty breathing - SPO2 was in the 50s on RA, placed on CPAP. Then Bipap in the ED - Chest x-ray was concerning for multifocal pneumonia. - Patient intubated on 03/10 due to tachypnea and worsen mental - Now in ARDS, frequent desaturations and hypoxia overnight and this am - Vent setting: PRVC-100%,14,24, 400 - This am ABG noted - s/p X1 dose of Iv lasix with 25% Albumin administered - CCM consulted, appreciate recommendations - C/f pulmo shunting, Heparin gtt initiated - Continue empiric IV Abx - VAP bundle addressed - Aspiration precaution HOB above 30 - Daily SBT and SAT trials as tolerated - Daily ABG and CXR - Continue SPO2 monitoring for SPO2 goal above 92% #Hypotension 2/2 #Septic Shock #NSTEMI/Elevated Troponin #Elevated BNP - Presented with hypotension now on low dose pressors-Levophed - Positive troponin X2, EKG noted with no significant ST changed - BNP [id number] on admit - Remains on pressors, now on Bicarb gtt - Midodrine added TID - 2D Echo LVEF 50%, no pulmonary HTN. See report for details - With generalized pitting edema, s/p IV lasix X3days - s/p X1 dose of IV lasix with 25% Albumin given - Cardiology consulted, appreciated recommendations - Continue blood pressure monitor per protocol - Titrate pressor to maintain MAP above 65 - VTE phroph-Heparin gtt per protocol #Acute Kidney Injury(TANIYA) most likely ATN #Azotemia #Severe Hyponatremia- improved #Hypokalemia-resolved - Presented with a Na level of 119, Probably due to dehydration - Renal function continue to worsen, most likely due to hypoperfusion/hypotension - S/p IVF hydrationa and Bicarb gtt - S/p X3 dose of IV lasix, additional Lasix given yesterday- Unresponsive - Now oliguric - Nephrology consulted, appreciate recommendations - Patient is too unstable for iHD at this time due to high pressor requirements - Strict intake and output - Avoid nephrotoxic medications - Monitor and replace electrolytes as needed #Septic Shock #Multifocal Pneumonia/CAP #Leukocytosis #Diarrhea #Lactic Acidosis-resolved - Brought in from home by EMS due to SOB and difficulty breathing, Hypotensive, with elevated lactic acid, WBCs wnr - Chest x-ray was concerning for multifocal pneumonia - COVID PCR negative - UA with elevated Wbcs - urine and blood cultures with NGTD - CRP unremarkable, procal noted - Repeat Cultures with NGTD - ID consulted, appreciate recommendations - Worsening leukocytosis this am, now on 2 pressors - With frequent loose stools, however, patient did received X2 days of kayexalate for hyperkalemia - Completed Meropenem course - Back on merem, now on IV and PO vanco, Levaquin, and flagyl - PO Vanco and flagyl initiated, C.Diff PCR Positive - F/U on cultures - Continue to CBC - CT chest/Abd/Pelvis unable to obtain, patient too unstable for transport #Acute Metabolic Encephalopathy #H/o Multiple Sclerosis and Seizure Disorder - Intubated and sedated, on fentanyl gtt - CT head shows vascular angioplasty without clear evidence of acute intracranial hemorrhage - MRI brain with and without contrast and MRI C-spine with and without contrast pending, patient is too unstable for transportation - EEG considered abnormal and is compatible with diffuse encephalopathy of perhaps significant brain sedation or neuro active medication or daily combination of both. Absence of epileptiform abnormality but would not rule out possibility of epilepsy - UDS (+) for opiates - Resumed home Keppra - Neurology consulted, appreciate recommendations - Avoid benzodiazepine to reduce the possibility of delirium - Titrate sedation for RASS goal 0 to -1 - PRN Analgesia for CPOT greater than 3 - Maintenance of sleep-wake cycle - Seizure precaution #Elevated D-Dimer - COVID PCR negative - BLE Doppler negative DVT - on heparin gtt #Moderate Protein Calorie Malnutrition - DHT inserted - Initiated enteral nutrition - Nutrition consulted #GI/DVT Prophylaxis - PPI- Pepcid - Heparin gtt - SCDs to bilateral lower extremities while in bed #Advance Care Planning - Disease education data, care plan, diagnoses, and prognosis discussed with patient's son Homar Bailey #[phone]. All questions and concerns were addressed at this time. Patient's son acknowledged understanding and agreement with current care plan. Patient is a FULL code. - 03/21- Thorough discussion with patient's son and the attending yesterday in regards to patient's condition, overall poor prognosis, and goal of care. Patient's son wants all aggressive treatment and measures including trach and PEG at this time. Patient remains a FULL code status. The high probability of a clinically significant, sudden or life threatening deterioration of the [multiple] system(s) required my full and direct attention, intervention and personal management. The aggregate critical care time was [60] minutes. This time is in addition to time spent performing reported procedures but includes the following: [x] Data Review and interpretation [x] Patient assessment and monitoring of vital signs [x] Documentation [x] Medication orders and management Disposition Plan: ICU Total Time Spent with Patient (Minutes): 60 History Interval history: Patient seen and examined at the bedside. Intubated and sedated. Continue to decompensated, at 100% Fio2 and 14 of PEEP this am. Patient too unstable for transport due to worsening hypotension, now on Bicarb gtt. Remain on Levophed gtt and heparin gtts. Hospitalist Physical - Constitutional Vitals: Temp Pulse Resp BP Pulse Ox 97.8 F 82 35 H 86/50 98 03/24/22 08:00 03/24/22 11:30 03/24/22 11:30 03/24/22 11:30 03/24/22 11:30 General appearance: Present: no acute distress, other (Intubated and Sedated) HEART Score - HEART Score Troponin: Troponin T 0.032 ng/mL (0.00-0.029) H D 03/10/22 12:24 Results - Labs CBC & Chem 7: 03/24/22 09:23 03/24/22 04:25 Labs: Laboratory Last Values WBC 47.4 K/mm3 (4.5-11.0) H* 03/24/22 09:23 RBC 2.73 M/mm3 (3.65-5.03) L 03/24/22 09:23 Hgb 7.5 gm/dl (10.1-14.3) L 03/24/22 09:23 Hct 24.3 % (30.3-42.9) L 03/24/22 09:23 MCV 89 fl (79-97) 03/24/22 09:23 MCH 27 pg (28-32) L 03/24/22 09:23 MCHC 31 % (30-34) 03/24/22 09:23 RDW 17.0 % (13.2-15.2) H 03/24/22 09:23 Plt Count 667 K/mm3 (140-440) H 03/24/22 09:23 Lymph % (Auto) 8.9 % (13.4-35.0) L 03/11/22 05:00 [place] % (Auto) 4.2 % (0.0-7.3) 03/11/22 05:00 Eos % (Auto) 0.1 % (0.0-4.3) 03/11/22 05:00 Baso % (Auto) 0.2 % (0.0-1.8) 03/11/22 05:00 Lymph # (Auto) 1.2 K/mm3 (1.2-5.4) 03/11/22 05:00 [place] # (Auto) 0.6 K/mm3 (0.0-0.8) 03/11/22 05:00 Eos # (Auto) 0.0 K/mm3 (0.0-0.4) 03/11/22 05:00 Baso # (Auto) 0.0 K/mm3 (0.0-0.1) 03/11/22 05:00 Add Manual Diff Complete 03/21/22 04:40 Total Counted 100 03/21/22 04:40 Seg Neutrophils % 86.6 % (40.0-70.0) H 03/11/22 05:00 Seg Neuts % (Manual) 71.0 % (40.0-70.0) H 03/21/22 04:40 Band Neutrophils % 12.0 % 03/21/22 04:40 Lymphocytes % (Manual) 2.0 % (13.4-35.0) L 03/21/22 04:40 Reactive Lymphs % (Man) 0 % 03/21/22 04:40 Monocytes % (Manual) 7.0 % (0.0-7.3) 03/21/22 04:40 Eosinophils % (Manual) 3.0 % (0.0-4.3) 03/21/22 04:40 Basophils % (Manual) 0 % (0.0-1.8) 03/21/22 04:40 Metamyelocytes % 3.0 % 03/21/22 04:40 Myelocytes % 0 % 03/21/22 04:40 Promyelocytes % 2.0 % 03/21/22 04:40 Blast Cells % 0 % 03/21/22 04:40 Nucleated RBC % 1.0 % (0.0-0.9) H 03/21/22 04:40 Seg Neutrophils # 11.8 K/mm3 (1.8-7.7) H 03/11/22 05:00 Seg Neutrophils # Man 18.2 K/mm3 (1.8-7.7) H 03/21/22 04:40 Band Neutrophils # 3.1 K/mm3 03/21/22 04:40 Lymphocytes # (Manual) 0.5 K/mm3 (1.2-5.4) L 03/21/22 04:40 Abs React Lymphs (Man) 0.0 K/mm3 03/21/22 04:40 Monocytes # (Manual) 1.8 K/mm3 (0.0-0.8) H 03/21/22 04:40 Eosinophils # (Manual) 0.8 K/mm3 (0.0-0.4) H 03/21/22 04:40 Basophils # (Manual) 0.0 K/mm3 (0.0-0.1) 03/21/22 04:40 Metamyelocytes # 0.8 K/mm3 03/21/22 04:40 Myelocytes # 0.0 K/mm3 03/21/22 04:40 Promyelocytes # 0.5 K/mm3 03/21/22 04:40 Blast Cells # 0.0 K/mm3 03/21/22 04:40 WBC Morphology Not Reportable 03/21/22 04:40 Hypersegmented Neuts Not Reportable 03/21/22 04:40 Hyposegmented Neuts Not Reportable 03/21/22 04:40 Hypogranular Neuts Not Reportable 03/21/22 04:40 Smudge Cells Not Reportable 03/21/22 04:40 Toxic Granulation Not Reportable 03/21/22 04:40 Toxic Vacuolation Not Reportable 03/21/22 04:40 Dohle Bodies Not Reportable 03/21/22 04:40 Pelger-Huet Anomaly Not Reportable 03/21/22 04:40 Luis Rods Not Reportable 03/21/22 04:40 Platelet Estimate Consistent w auto 03/21/22 04:40 Clumped Platelets Not Reportable 03/21/22 04:40 Plt Clumps, EDTA Not Reportable 03/21/22 04:40 Large Platelets Few 03/21/22 04:40 Giant Platelets Not Reportable 03/21/22 04:40 Platelet Satelliting Not Reportable 03/21/22 04:40 Plt Morphology Comment Not Reportable 03/21/22 04:40 RBC Morphology Not Reportable 03/21/22 04:40 Dimorphic RBCs Not Reportable 03/21/22 04:40 Polychromasia Not Reportable 03/21/22 04:40 Hypochromasia 3+ 03/21/22 04:40 Poikilocytosis Not Reportable 03/21/22 04:40 Anisocytosis 1+ 03/21/22 04:40 Microcytosis 1+ 03/21/22 04:40 Macrocytosis Not Reportable 03/21/22 04:40 Spherocytes Not Reportable 03/21/22 04:40 Pappenheimer Bodies Not Reportable 03/21/22 04:40 Sickle Cells Not Reportable 03/21/22 04:40 Target Cells Rare 03/21/22 04:40 Tear Drop Cells Few 03/21/22 04:40 Ovalocytes 1+ 03/21/22 04:40 Helmet Cells Not Reportable 03/21/22 04:40 Nevarez-Badger Bodies Not Reportable 03/21/22 04:40 [place] Rings Not Reportable 03/21/22 04:40 Rudy Cells Not Reportable 03/21/22 04:40 Bite Cells Not Reportable 03/21/22 04:40 Crenated Cell Not Reportable 03/21/22 04:40 Elliptocytes Few 03/21/22 04:40 Acanthocytes (Spur) Not Reportable 03/21/22 04:40 Rouleaux Not Reportable 03/21/22 04:40 Hemoglobin C Crystals Not Reportable 03/21/22 04:40 Schistocytes Few 03/21/22 04:40 Malaria parasites Not Reportable 03/21/22 04:40 Tani Bodies Not Reportable 03/21/22 04:40 Hem Pathologist Commnt No 03/21/22 04:40 PT 17.2 Sec. (12.2-14.9) H 03/22/22 09:30 INR 1.25 (0.87-1.13) H 03/22/22 09:30 APTT 33.4 Sec. (24.2-36.6) 03/22/22 09:30 D-Dimer 787.78 ng/mlDDU (0-234) H 03/10/22 05:45 Heparin Anti-Xa Level 0.18 U.I./ml (0.3-0.7) L 03/24/22 08:40 ABG pH 7.240 pH Units (7.350-7.450) L 03/24/22 04:40 ABG pCO2 43.2 mm Hg 03/24/22 04:40 ABG pO2 96.8 mm Hg (80.0-90.0) H 03/24/22 04:40 ABG HCO3 18.1 mmol/L (20.0-26.0) L 03/24/22 04:40 ABG O2 Saturation 96.8 % (95.0-99.0) 03/24/22 04:40 ABG O2 Content 9.7 (0.0-44) 03/24/22 04:40 ABG Base Excess -8.6 mmol/L (-2.0-3.0) L 03/24/22 04:40 ABG Hemoglobin 7.2 gm/dl (12.0-16.0) L 03/24/22 04:40 ABG Carboxyhemoglobin 1.9 % (0.0-5.0) 03/24/22 04:40 ABG Methemoglobin 0.5 % (0.0-1.5) 03/24/22 04:40 Oxyhemoglobin 94.5 % (95.0-99.0) L 03/24/22 04:40 FiO2 90 % 03/24/22 04:40 Sodium 136 mmol/L (137-145) L 03/24/22 04:25 Potassium 5.1 mmol/L (3.6-5.0) H 03/24/22 04:25 Chloride 98.8 mmol/L (98-107) 03/24/22 04:25 Carbon Dioxide 18 mmol/L (22-30) L 03/24/22 04:25 Anion Gap 24 mmol/L 03/24/22 04:25 BUN 130 mg/dL (7-17) H 03/24/22 04:25 Creatinine 2.1 mg/dL (0.6-1.2) H 03/24/22 04:25 Estimated GFR 24 ml/min 03/24/22 04:25 BUN/Creatinine Ratio 62 % 03/24/22 04:25 Glucose 122 mg/dL (65-100) H 03/24/22 04:25 POC Glucose 114 mg/dL (70-105) H 03/23/22 23:35 Osmolality 285 Mosm/kg 03/10/22 12:24 Lactic Acid 0.90 mmol/L (0.7-2.0) 03/18/22 05:20 Uric Acid 1.6 mg/dL (3.5-7.6) L 03/10/22 13:15 Calcium 8.1 mg/dL (8.4-10.2) L 03/24/22 04:25 Phosphorus 3.70 mg/dL (2.5-4.5) 03/18/22 05:20 Magnesium 2.00 mg/dL (1.7-2.3) 03/18/22 05:20 Ferritin 219.2 ng/mL (10.0-200.0) H 03/10/22 05:45 Total Bilirubin 0.30 mg/dL (0.1-1.2) 03/18/22 05:20 AST 39 units/L (5-40) 03/18/22 05:20 ALT 14 units/L (7-56) 03/18/22 05:20 Alkaline Phosphatase 119 units/L (35-129) 03/18/22 05:20 Lactate Dehydrogenase 210 units/L (91-180) H 03/10/22 05:45 Total Creatine Kinase 901 units/L (30-135) H 03/10/22 12:24 CK-MB (CK-2) 15.3 ng/mL (0.0-4.0) H 03/10/22 12:24 CK-MB (CK-2) Rel Index 1.6 (0-4) 03/10/22 12:24 Troponin T 0.032 ng/mL (0.00-0.029) H D 03/10/22 12:24 C-Reactive Protein < 0.03 mg/dL (0.00-1.30) 03/10/22 05:45 NT-Pro-B Natriuret Pep 78580 pg/mL (0-900) H 03/10/22 01:25 Total Protein 5.4 g/dL (6.3-8.2) L 03/18/22 05:20 Albumin 2.0 g/dL (3.9-5) L 03/18/22 05:20 Albumin/Globulin Ratio 0.6 % 03/18/22 05:20 Prealbumin 0.044 g/L (0.200-0.400) L 03/12/22 18:40 Triglycerides 47 mg/dL (2-149) 03/10/22 01:25 Cholesterol 259 mg/dL (50-199) H 03/10/22 01:25 LDL Cholesterol Direct 187 mg/dL (50-130) H 03/10/22 01:25 HDL Cholesterol 63 mg/dL (40-59) H 03/10/22 01:25 Cholesterol/HDL Ratio 4.11 % 03/10/22 01:25 Lipase 15 units/L (13-60) 03/10/22 01:25 Vitamin B1 28 nmol/L (8-30) 03/13/22 08:00 Vitamin B12 1021 pg/mL (211-911) H 03/12/22 18:40 Folate 2.15 ng/mL (7.3-26.0) L 03/12/22 18:40 Procalcitonin 3.92 ng/mL (<0.15) 03/10/22 05:45 TSH 1.290 mlU/mL (0.270-4.200) 03/12/22 18:40 Urine Color Yellow (Yellow) 03/10/22 18:20 Urine Turbidity Clear (Clear) 03/10/22 18:20 Urine pH 6.0 (5.0-7.0) 03/10/22 18:20 Ur Specific [place] 1.010 (1.003-1.030) 03/10/22 18:20 Urine Protein <15 mg/dl mg/dL (Negative) 03/10/22 18:20 Urine Glucose (UA) Neg mg/dL (Negative) 03/10/22 18:20 Urine Ketones Tr mg/dL (Negative) 03/10/22 18:20 Urine Blood Sm (Negative) 03/10/22 18:20 Urine Nitrite Neg (Negative) 03/10/22 18:20 Urine Bilirubin Neg (Negative) 03/10/22 18:20 Urine Urobilinogen < 2.0 mg/dL (<2.0) 03/10/22 18:20 Ur Leukocyte Esterase Lg (Negative) 03/10/22 18:20 Urine WBC (Auto) 105.0 /HPF (0.0-6.0) H 03/10/22 18:20 Urine RBC (Auto) 2.0 /HPF (0.0-6.0) 03/10/22 18:20 U Epithel Cells (Auto) < 1.0 /HPF (0-13.0) 03/10/22 18:20 Urine Bacteria (Auto) 1+ /HPF (Negative) 03/10/22 18:20 Urine Osmolality 368 Mosm/kg 03/10/22 18:20 Urine Creatinine 34.4 mg/dL (0.1-20.0) H 03/19/22 14:40 Urine Sodium 18 mmol/L 03/19/22 14:40 Urine Opiates Screen Presumptive positive 03/10/22 18:20 Urine Methadone Screen Presumptive negative 03/10/22 18:20 Ur Barbiturates Screen Presumptive negative 03/10/22 18:20 Ur Phencyclidine Scrn Presumptive negative 03/10/22 18:20 Ur Amphetamines Screen Presumptive negative 03/10/22 18:20 U Benzodiazepines Scrn Presumptive negative 03/10/22 18:20 Urine Cocaine Screen Presumptive negative 03/10/22 18:20 U Marijuana (THC) Screen Presumptive negative 03/10/22 18:20 Drugs of Abuse Note Disclamer 03/10/22 18:20 Copper 118 mcg/dL (70-175) 03/12/22 18:40 Syphilis IgG/IgM Ab Nonreactive (NonReactive) 03/12/22 18:40 C. difficile Tox (PCR) Positive (Negative) 03/23/22 06:30 SARS-CoV-2 (PCR) Negative (Negative) 03/10/22 09:50 Blood Type O POSITIVE 03/15/22 09:42 Antibody Screen Negative 03/15/22 09:42 Crossmatch See Detail 03/15/22 09:42 Microbiology: Microbiology 03/18/22 15:12 Peripheral/Venous Blood Culture - Final NO GROWTH AFTER 5 DAYS 03/18/22 15:12 Peripheral/Venous Blood Culture - Final NO GROWTH AFTER 5 DAYS [place]/IV: Voiding Method Indwelling Catheter Active Medications - Current Medications Current Medications: Generic Name Dose Route Start Last Admin Trade Name Freq PRN Reason Stop Dose Admin Acetaminophen 650 mg 03/13/22 05:50 03/19/22 18:38 Acetaminophen 325 Mg/10.15 Ml Oral Liqd Unit Dose FEEDTUBE 650 mg Q6H PRN Administration Non Cardiac Pain or Temp>100.5 Bisacodyl 10 mg 03/15/22 10:00 Bisacodyl 5 Mg Tab PO QDAY PRN Constipation Famotidine 10 mg 03/22/22 10:00 03/24/22 11:05 Famotidine 10 Mg Tab FEEDTUBE 10 mg BID SHAHBAZ Administration Fentanyl 50 mcg 03/10/22 10:58 03/14/22 20:48 Fentanyl 100 Mcg/2 Ml Inj IV 50 mcg Q10MIN PRN Administration ANALGESIA Hydrophilic Ointment 1 applic 03/10/22 11:03 Lip Therapy Vaseline TP Q2HR PRN Dry Lips Fentanyl Citrate 2,000 mcg in 100 mls @ 4.16 mls/hr 03/10/22 11:00 03/24/22 08:35 Fentanyl Drip Premix IV 4 mcg/kg/hr TITR SHAHBAZ 16.64 mls/hr Administration Protocol 1 MCG/KG/HR NORepinephrine/NS 8 MG-250 ML 8 mg in 250 mls @ 3.75 mls/hr 03/10/22 11:00 03/24/22 02:52 Norepinephrine/Ns 8 Mg-250 Ml (Double Conc) IV 10 mcg/min TITRATE SHAHBAZ 18.75 mls/hr Titration Protocol 2 MCG/MIN Vasopressin 20 unit/ Sodium 101 mls @ 9.09 mls/hr 03/21/22 15:00 03/23/22 18:31 Chloride IV Infused TITR SHAHBAZ Titration Protocol 0.03 UNITS/MIN Levofloxacin/Dextrose 750 mg in 150 mls @ 100 mls/hr 03/23/22 12:00 03/23/22 12:32 Levaquin 750mg/150ml IV 03/27/22 13:29 100 mls/hr Q48H SHAHBAZ Administration Protocol Heparin Sodium/Sodium Chloride 25,000 unit in 500 mls @ 24 mls/hr 03/22/22 09: 00 03/24/22 09:40 Heparin/ 0.45% Nacl-25,000 Unit/500 Ml IV 1,000 units/hr TITR SHAHBAZ 20 mls/hr Administration Protocol 1,200 UNITS/HR Metronidazole 500 mg in 100 mls @ 100 mls/hr 03/22/22 09:00 03/24/22 08:36 Flagyl 500 Mg/100 Ml IV 100 mls/hr Q8H SHAHBAZ Administration Protocol Meropenem/Sodium Chloride 1 gram in 100 mls @ 100 mls/hr 03/23/22 11:00 03/24/22 11:04 Merrem/Ns 1 Gram/100 Ml IV 100 mls/hr Q12H SHAHBAZ Administration Protocol Sodium Bicarbonate 150 meq/ 1,150 mls @ 50 mls/hr 03/24/22 05:11 03/24/22 05:30 Dextrose IV 50 mls/hr DIRECT SHAHBAZ Administration Levetiracetam 500 mg 03/12/22 10:00 03/24/22 11:05 Levetiracetam 500 Mg/5 Ml Oral Liqd FEEDTUBE 500 mg BID SHAHBAZ Administration Magnesium Hydroxide 30 ml 03/10/22 02:56 Magnesium Hydroxide (Mom) Oral Liqd Udc PO Q4H PRN Constipation Midodrine 15 mg 03/21/22 16:00 03/24/22 08:36 Midodrine 5 Mg Tab PO 15 mg TID@0800,1200,1600 SHAHBAZ Administration Multi-Ingred Cream/Lotion/Oil/Oint 1 applic 03/10/22 11:03 Mineral Oil/Petrolatum, White Ophth Oint 3.5 Gm OU Q4HR PRN Dry Eye(s) Ondansetron HCl 4 mg 03/10/22 02:56 Ondansetron 4 Mg/2 Ml Inj IV Q8H PRN Nausea And Vomiting Scopolamine 1 each 03/21/22 10:00 03/24/22 11:05 Scopolamine Transdermal Patch 72 Hr TD 1 each Q3D SHAHBAZ Administration Sodium Chloride 10 ml 03/10/22 10:00 03/24/22 11:06 Sodium Chloride 0.9% 10 Ml Flush Syringe IV 10 ml BID SHAHBAZ Administration Sodium Chloride 10 ml 03/10/22 02:56 Sodium Chloride 0.9% 10 Ml Flush Syringe IV PRN PRN LINE FLUSH Vancomycin HCl 500 mg 03/22/22 12:00 03/24/22 05:40 Vancomycin 250 Mg/10 Ml Oral Liqd PO 500 mg Q6HR SHAHBAZ Administration Protocol Nutrition/Malnutrition Assess - Dietary Evaluation Nutrition/Malnutrition Findings: Nutrition Notes Start: 03/10/22 12:22 Freq: Status: Active Protocol: Document 03/21/22 15:08 JOSH (Rec: 03/21/22 15:18 JOSH [id number]) Nutrition Notes Initial or Follow up Reassessment Current Diagnosis Hypertension,Respiratory Failure,Malnutrition Other Pertinent Diagnosis MS, CAP, Seizure, Metabolic Encephalopathy, Septic Shock, NSTEMI, UTI ... Current Diet TF-Vital AF 1.2 En @ 60 ml/hr (since D 03/10). Labs/Tests 03/21: Na 135, K 5.7, Cl 97.4, CO2 21, BUN 104, Crea 1.3, Glu 118. Pertinent Medications 03/21: Vasopressin 20U, others nutritionally unremarkable. Height 5 ft 6 in Weight 83.2 kg [place] Body Weight (kg) 59.09 BMI 29.6 Weight change and time frame No body weight change reported in 11 days. Weight Status Overweight Subjective/Other Information RD consult for routine F/U on TF tolerance/continuation. TF continues as prescribed, and well tolerated, according to RN notes. Pt remains on Mechanical Ventilation, O2 saturation @ 96%, according to Physical Assessment History notes. Pt presents bilateral-LE pitting edema 3+, according to Physical Assessment History notes. Pt presents an unspecified area of concern for skin risk at the time, according to Physical Assessment History notes. Percent of energy/protein needs met: Prescribed TF-Vital AF 1.2 En @ 60 ml/hr provides for energy/protein needs (1,728 Kcal/108 g) during LOS, 100% Kcal; 100% AA. Burn Absent Trauma Absent GI Symptoms None Food Allergy No Skin Integrity/Comment Unspecified area of concern. Current % PO Other Minimum of two criteria No Fluid Accumulation Moderate to Severe (severe) Reduced Director Of Nuclear Medicine Strength N/A (non-severe) Protein-Calorie Malnutrition N\A #1 Nutrition Diagnosis Inadequate oral intake Diagnosis Progress(for reassessment Continues documentation) Is patient on ventilator? Yes Is Patient Ambulatory and/or Out of Bed No REE-([place] Jeor-confined to bed) 1713.168 Calculation Used for Recommendations [facility] Additional Notes Protein: 1-1.2 g/Kg ABW; 100- 166 g/day. Fluids: 1 ml/Kcal, or as per MD. Nutrition Intervention Nutrition Support: Continue TF-Vital AF 1.2 En @ 60 ml/hr. Flush: 100 ml water Q 4 hr, or as per MD. Kcal 1,728 Protein (gm) 108 Carbohydrates (gm) 159 Fat (gm) 78 Fluid (mL) 1,168 Fiber (gm) 7 % RDI: 100% Kcal; 100% AA. Goal #1 Provide at least 75% of energy /protein needs through Enteral Feeding during LOS. Follow-Up By: 03/28/22 Additional Comments Continue monitoring TF tolerance, Ventilation Status, Pressor support, and BM.
[2022-03-24 12:39] LABS: Basophils % (Manual) 0 % (0.0-1.8); Myelocytes # (Manual) 2.4 K/mm3; Ovalocytes Few; Target Cells Few; Tear Drop Cells Few; Total Cells Counted 100
[2022-03-24 12:40] LABS: Burr Cells Few
[2022-03-24 12:41] LABS: Giant Platelets Few; Platelet Estimate Consistent w Auto; Schistocytes Rare
--- NOTE | 2022-03-24 14:49 | Progress Note ---
Assessment and Plan #Non-specific troponin elevation - down-trending trend, not consistent with acute NH #C diff infection #Respiratory failure due to multifocal pneumonia - intubated #Sepsis requiring norepinephrine #Anemia #TANIYA Patient had non-specific troponin elevation in setting of sepsis, respiratory failure, anemia, and TANIYA. Echo shows normal LVEF and no other significant findings. Recommend continued supportive care. No invasive cardiac workup at this time. Will sign off. Please call with questions. Subjective Date of service: 03/24/22 Principal diagnosis: AHRF; Multifocal Pneumonia; Septic shock; NSTEMI; AMS; Seizures Interval history: Remains intubated/sedated. No cardiac events. Tele - SR with PACs Objective Vital Signs Temp Pulse Pulse Resp Resp BP Pulse Ox 03/24/22 14:00 85 26 H 84/54 94 03/24/22 13:45 77 13 75/43 98 03/24/22 13:30 81 21 73/52 95 03/24/22 13:15 81 28 H 80/50 94 03/24/22 13:00 82 26 H 88/46 93 03/24/22 12:45 80 27 H 79/49 97 03/24/22 12:30 81 28 H 84/50 97 03/24/22 12:15 80 24 84/51 97 03/24/22 12:00 98 F 85 26 H 80/48 99 03/24/22 11:50 82 35 H 86/50 98 03/24/22 11:45 81 32 H 85/49 03/24/22 11:30 82 35 H 86/50 98 03/24/22 11:15 85 23 83/52 97 03/24/22 11:00 84 22 95/57 03/24/22 10:45 84 20 94/58 03/24/22 10:30 81 23 102/59 99 03/24/22 10:15 85 23 117/67 03/24/22 10:00 85 28 H 101/53 77 L 03/24/22 09:45 78 15 106/53 91 03/24/22 09:30 80 16 100/56 03/24/22 09:15 83 24 99/57 97 03/24/22 09:00 82 23 99/57 03/24/22 08:45 83 19 97/57 03/24/22 08:38 82 99/60 95 03/24/22 08:30 80 24 95/57 03/24/22 08:15 81 31 H 88/55 96 03/24/22 08:00 97.8 F 81 20 84/54 99 03/24/22 07:45 85 25 H 91/57 03/24/22 07:30 81 31 H 101/59 03/24/22 07:15 84 30 H 107/58 03/24/22 07:00 85 30 H 97/56 03/24/22 06:45 83 29 H 94/62 03/24/22 06:30 84 31 H 98/62 03/24/22 06:15 82 31 H 99/60 03/24/22 06:00 84 20 95/60 03/24/22 05:45 84 24 87/57 03/24/22 05:30 81 15 80/59 03/24/22 05:15 81 23 83/59 96 03/24/22 05:00 80 30 H 92/59 95 03/24/22 04:58 81 28 H 95 03/24/22 04:45 84 28 H 92/59 96 03/24/22 04:30 81 28 H 86/48 97 03/24/22 04:15 83 28 H 86/62 03/24/22 04:00 80 16 91/55 03/24/22 03:58 97.6 F 03/24/22 03:45 83 28 H 95/56 03/24/22 03:30 82 28 H 92/58 03/24/22 03:15 85 29 H 95/60 03/24/22 03:00 88 22 114/70 95 03/24/22 02:45 80 28 H 84/41 100 03/24/22 02:30 84 28 H 83/53 97 03/24/22 02:15 83 28 H 83/56 03/24/22 02:00 84 28 H 92/60 03/24/22 01:45 85 28 H 102/48 03/24/22 01:31 82 28 H 95/58 03/24/22 01:15 83 28 H 99/54 03/24/22 01:00 83 28 H 96/57 95 03/24/22 00:46 81 96/62 100 03/24/22 00:45 80 26 H 99/57 100 03/24/22 00:30 84 28 H 99/57 03/24/22 00:20 82 28 H 95 03/24/22 00:15 82 28 H 89/55 03/24/22 00:00 98.0 F 84 28 H 96/57 03/23/22 23:45 83 28 H 99/57 03/23/22 23:35 84 28 H 95 03/23/22 23:33 83 28 H 93/53 100 03/23/22 23:30 84 28 H 93/53 03/23/22 23:15 83 28 H 88/59 03/23/22 23:00 84 28 H 102/58 03/23/22 22:45 84 28 H 100/60 03/23/22 22:30 85 28 H 100/60 03/23/22 22:15 84 28 H 102/60 03/23/22 22:00 84 28 H 101/61 03/23/22 21:58 84 28 H 26 H 95 03/23/22 21:45 84 28 H 98/58 03/23/22 21:31 82 28 H 101/58 03/23/22 21:15 82 27 H 98/65 100 03/23/22 21:01 82 28 H 99/65 99 03/23/22 20:45 82 29 H 96/65 03/23/22 20:31 81 102/61 100 03/23/22 20:30 82 29 H 97/61 98 03/23/22 20:15 81 28 H 97/61 03/23/22 20:00 82 28 H 101/66 03/23/22 19:45 84 29 H 103/61 100 03/23/22 19:35 82 82 28 H 95 03/23/22 19:31 98 F 03/23/22 19:30 85 28 H 105/57 03/23/22 19:15 84 29 H 91/56 100 03/23/22 19:00 82 28 H 94/58 03/23/22 18:45 80 28 H 92/59 03/23/22 18:30 88 28 H 95/62 03/23/22 18:15 81 28 H 88/40 99 03/23/22 18:00 84 28 H 94/58 03/23/22 17:45 85 28 H 93/63 99 03/23/22 17:30 83 28 H 94/60 03/23/22 17:15 85 28 H 102/63 03/23/22 17:00 85 28 H 93/64 03/23/22 16:45 83 28 H 93/64 98 03/23/22 16:41 97.8 F 03/23/22 16:30 82 28 H 100/62 98 03/23/22 16:15 88 28 H 101/67 03/23/22 16:06 86 106/67 100 03/23/22 16:00 84 82 28 H 106/67 95 03/23/22 15:45 88 29 H 113/73 03/23/22 15:30 90 28 H 118/78 97 03/23/22 15:15 88 27 H 111/72 03/23/22 15:00 87 28 H 118/79 99 - Physical Examination General: Other (intubated on mechanical ventilator) HEENT: Positive: PERRL Neck: Positive: neck supple, trachea midline. Negative: JVD/HJR Cardiac: Positive: Reg Rate and Rhythm Lungs: Positive: Ventilated Respirations Neuro: Positive: Other (Intubated, sedated on the vent) Abdomen: Positive: Soft Skin: Positive: Clear, Other (multiple wounds) Extremities: Present: edema Other: + anasarca - Labs and Meds CBC 03/24/22 03/24/22 Range/Units 04:25 09:23 WBC 47.4 H* (4.5-11.0) K/mm3 RBC 2.73 L (3.65-5.03) M/mm3 Hgb 7.3 L 7.5 L (10.1-14.3) gm/dl Hct 24.5 L 24.3 L (30.3-42.9) % Plt Count 667 H (140-440) K/mm3 Comprehensive Metabolic Panel 03/24/22 Range/Units 04:25 Sodium 136 L (137-145) mmol/L Potassium 5.1 H (3.6-5.0) mmol/L Chloride 98.8 (98-107) mmol/L Carbon Dioxide 18 L (22-30) mmol/L BUN 130 H (7-17) mg/dL Creatinine 2.1 H (0.6-1.2) mg/dL Glucose 122 H (65-100) mg/dL Calcium 8.1 L (8.4-10.2) mg/dL - Allied health notes Allied health notes reviewed: RT
--- NOTE | 2022-03-24 17:41 | Progress Note ---
Assessment and Plan This is a 61-year-old female with known past medical history of Multiple Sclerosis and seizure disorder admitted for sepsis, Hyponatremia, and acute hypoxic respiratory failure requiring ventilatory support Acute Hypoxemic Respiratory Failure, on MVS Multifocal Pneumonia/CAP- possible aspiration TANIYA Hypotension/Sepsis/Lactic Acidosis-Septic shock -2 pressor NSTEMI/Elevated Troponin- probable type 2 ischemia Elevated BNP Hypokalemia Acute Metabolic Encephalopathy H/o Seizure Disorder Elevated D-Dimer Moderate Protein Calorie Malnutrition C.diff PCR positive Leukemoid reaction with thromocytosis continue to titrate supplemental oxygen to keep SpO2 90-92% VAP bundle addressed, aspiration precautions HOB >40 continue lung protective strategies; ARDS net protocol continue bronchodilators with pulmonary hygiene per RT Wean vasopressor support for MAP>65 -Continue to titrate vasopressor support to keep MAP>65 -Continue Antibiotics per ID- on Vancomyin (po and IV), Meropenem, Levofloxacin, Metronidazole -Continue to trend temperature curve and WCC -CXR, ABG in am - continue accuchecks with glycemic control per SSI (While critically ill target blood glucose of 140-180 mg/dL; avoid hypoglycemia) - avoid nephrotoxins, renally dose all medications - continue to avoid benzodiazepines, reduce the possibility of delirium - prn analgesia per CPOT score - Maintenance of sleep-wake cycle, avoid delirium -Continue with enteric nutritional support - VTE prophylaxis- anticoagulation with therapeutic low intensity heparin -Stress ulcer prophylaxis- Famotidine - mobility, off loading and frequent turning per facility protocol to prevent pressure ulcers - Monitor hemodynamics closely - continue other care per attending / other consultants CONDITION: CRITICAL PROGNOSIS: GRAVE CODE STATUS: FULL Extensive discussions with the patient's son Homar Bailey. Homar also had his on the line. I discussed the multi-organ dysfunction, with worsening renal indices. Discussed the need for escalating need for vasopresor support. She remains on full mechanical vent support with minimal room for escalation. I also discussed the need for hemodialysis- but renal physician expresses conc allyssa that the patient hemodynamically unstable and will not tolerated HD We have been unable to get MRI or CTscan of the chest, abdomen and pelvis done because of her high ventilatory needs and her current hemodynamic instability. I asked that the patient be made DNAR in the event of the arrest, but will continue to treat her aggressively. They stated they will think about it, have discussions and then get back with me. The high probability of a clinically significant, sudden or life threatening deterioration of the [respiratory, cardiovascular, neurology,renal ] system(s) required my full and direct attention, intervention and personal management. The aggregate critical care time was [35 ] minutes. This time is in addition to time spent performing reported procedures but includes the following: [x] Data Review and interpretation [x] Patient assessment and monitoring of vital signs [x] Documentation [x] Medication orders and management Subjective Date of service: 03/24/22 Principal diagnosis: AHRF; Multifocal Pneumonia; Septic shock; NSTEMI; AMS; Seizures Interval history: follow up fro: Acute hypoxemic resp failure on MVS; Acute encephalopathy; Septic shock; Bilateral pneumonia-aspiration/CAP Severe hyponatremia Seen and examined. Vitals, labs, medications, chart reviewed. Discussed with nursing and respiratory care staff. Vent: ACVC-20/400/+14/ 100 On going episodes of desaturations overnight with increased FIO2, Worsening hypotension with increase in vasopressor support( currently on Levophed and Vasopressin), Bicarbonate infusion initiated overnight for metabolic acidosis Remains on Fentanyl Empiric heparin- low intensity Renal function continue to decline, anuric( 30ml of urine output in the last 24 hours) [place] catheter RIJ CVL Objective Vital Signs - 12hr 03/24/22 03/24/22 03/24/22 05:45 06:00 06:15 Temperature Pulse Rate 84 84 82 Respiratory 24 20 31 H Rate Blood Pressure 87/57 95/60 99/60 O2 Sat by Pulse Oximetry 03/24/22 03/24/22 03/24/22 06:30 06:45 07:00 Temperature Pulse Rate 84 83 85 Respiratory 31 H 29 H 30 H Rate Blood Pressure 98/62 94/62 97/56 O2 Sat by Pulse Oximetry 03/24/22 03/24/22 03/24/22 07:15 07:30 07:45 Temperature Pulse Rate 84 81 85 Respiratory 30 H 31 H 25 H Rate Blood Pressure 107/58 101/59 91/57 O2 Sat by Pulse Oximetry 03/24/22 03/24/22 03/24/22 08:00 08:15 08:30 Temperature 97.8 F Pulse Rate 81 81 80 Respiratory 20 31 H 24 Rate Blood Pressure 84/54 88/55 95/57 O2 Sat by Pulse 99 96 Oximetry 03/24/22 03/24/22 03/24/22 08:38 08:45 09:00 Temperature Pulse Rate 82 83 82 Respiratory 19 23 Rate Blood Pressure 99/60 97/57 99/57 O2 Sat by Pulse 95 Oximetry 03/24/22 03/24/22 03/24/22 09:15 09:30 09:45 Temperature Pulse Rate 83 80 78 Respiratory 24 16 15 Rate Blood Pressure 99/57 100/56 106/53 O2 Sat by Pulse 97 91 Oximetry 03/24/22 03/24/22 03/24/22 10:00 10:15 10:30 Temperature Pulse Rate 85 85 81 Respiratory 28 H 23 23 Rate Blood Pressure 101/53 117/67 102/59 O2 Sat by Pulse 77 L 99 Oximetry 03/24/22 03/24/22 03/24/22 10:45 11:00 11:15 Temperature Pulse Rate 84 84 85 Respiratory 20 22 23 Rate Blood Pressure 94/58 95/57 83/52 O2 Sat by Pulse 97 Oximetry 03/24/22 03/24/22 03/24/22 11:30 11:45 11:50 Temperature Pulse Rate 82 81 82 Respiratory 35 H 32 H Rate Blood Pressure 86/50 85/49 86/50 O2 Sat by Pulse 98 98 Oximetry 03/24/22 03/24/22 03/24/22 12:00 12:15 12:30 Temperature 98 F Pulse Rate 85 80 81 Respiratory 26 H 24 28 H Rate Blood Pressure 80/48 84/51 84/50 O2 Sat by Pulse 99 97 97 Oximetry 03/24/22 03/24/22 03/24/22 12:45 13:00 13:15 Temperature Pulse Rate 80 82 81 Respiratory 27 H 26 H 28 H Rate Blood Pressure 79/49 88/46 80/50 O2 Sat by Pulse 97 93 94 Oximetry 03/24/22 03/24/22 03/24/22 13:30 13:45 14:00 Temperature Pulse Rate 81 77 85 Respiratory 21 13 26 H Rate Blood Pressure 73/52 75/43 84/54 O2 Sat by Pulse 95 98 94 Oximetry 03/24/22 03/24/22 03/24/22 14:15 14:30 14:45 Temperature Pulse Rate 85 82 81 Respiratory 14 25 H 28 H Rate Blood Pressure 89/62 86/58 83/50 O2 Sat by Pulse 94 Oximetry 03/24/22 03/24/22 03/24/22 15:00 15:15 15:30 Temperature Pulse Rate 84 81 80 Respiratory 29 H 26 H 21 Rate Blood Pressure 101/62 85/54 87/56 O2 Sat by Pulse 96 95 Oximetry 03/24/22 03/24/22 03/24/22 15:45 16:00 16:15 Temperature 98.2 F Pulse Rate 84 82 82 Respiratory 24 29 H 24 Rate Blood Pressure 92/51 89/58 87/54 O2 Sat by Pulse 91 96 95 Oximetry 03/24/22 03/24/22 03/24/22 16:30 16:45 17:00 Temperature Pulse Rate 80 82 84 Respiratory 21 25 H 30 H Rate Blood Pressure 92/61 86/54 85/58 O2 Sat by Pulse 94 Oximetry 03/24/22 03/24/22 17:15 17:30 Temperature Pulse Rate 80 82 Respiratory 24 22 Rate Blood Pressure 77/53 90/51 O2 Sat by Pulse 93 88 Oximetry Constitutional: other (middle aged female with anasarca and mild dyssynchrony on MVS, intuabted) Eyes: non-icteric ENT: oropharynx moist, other (ETT 24 cm BLANCA) Neck: supple, no lymphadenopathy, no JVD Effort: mildly labored Ascultation: Bilateral: rales Percussion: Bilateral: not dull Cardiovascular: regular rate and rhythm, other (S1,S2) Gastrointestinal: normoactive bowel sounds, soft, non-tender Integumentary: other (edema with peeling skin) Extremities: no cyanosis, pulses normal, no ischemia or petechiae, edema (2+ and anasarca ) Neurologic: pupils equal and round, unable to assess Psychiatric: other (unable to assess re: AMS) CBC and BMP: 03/25/22 04:40 03/25/22 04:40 ABG, PT/INR, D-dimer: ABG ABG pH 7.240 pH Units (7.350-7.450) L 03/24/22 04:40 ABG pCO2 43.2 mm Hg 03/24/22 04:40 ABG pO2 96.8 mm Hg (80.0-90.0) H 03/24/22 04:40 ABG O2 Saturation 96.8 % (95.0-99.0) 03/24/22 04:40 PT/INR, D-dimer PT 17.2 Sec. (12.2-14.9) H 03/22/22 09:30 INR 1.25 (0.87-1.13) H 03/22/22 09:30 D-Dimer 787.78 ng/mlDDU (0-234) H 03/10/22 05:45 Abnormal lab findings: Abnormal Labs 03/10/22 03/10/22 03/10/22 01:19 01:25 01:25 WBC RBC Hgb Hct MCH RDW 15.4 H Plt Count Lymph % (Auto) 12.4 L Lymph # (Auto) 1.1 L Seg Neutrophils % 85.9 H Seg Neuts % (Manual) Lymphocytes % (Manual) Nucleated RBC % Seg Neutrophils # Seg Neutrophils # Man Lymphocytes # (Manual) Monocytes # (Manual) Eosinophils # (Manual) PT INR D-Dimer Heparin Anti-Xa Level ABG pH ABG pO2 59.3 L ABG HCO3 16.7 L ABG O2 Saturation 92.3 L ABG Base Excess -7.8 L ABG Hemoglobin 11.4 L Oxyhemoglobin 90.8 L Sodium 119 L* Potassium 3.1 L Chloride 88.1 L Carbon Dioxide 16 L BUN Creatinine 0.3 L Glucose 146 H POC Glucose Lactic Acid Uric Acid Calcium 8.2 L Phosphorus Magnesium 1.30 L Ferritin ALT 5 L Lactate Dehydrogenase Total Creatine Kinase CK-MB (CK-2) Troponin T NT-Pro-B Natriuret Pep Total Protein 5.4 L Albumin 3.6 L Prealbumin Cholesterol LDL Cholesterol Direct HDL Cholesterol Vitamin B12 Folate Urine WBC (Auto) Urine Creatinine Crossmatch 03/10/22 03/10/22 03/10/22 01:25 01:25 01:25 WBC RBC Hgb Hct MCH RDW Plt Count Lymph % (Auto) Lymph # (Auto) Seg Neutrophils % Seg Neuts % (Manual) Lymphocytes % (Manual) Nucleated RBC % Seg Neutrophils # Seg Neutrophils # Man Lymphocytes # (Manual) Monocytes # (Manual) Eosinophils # (Manual) PT INR D-Dimer Heparin Anti-Xa Level ABG pH ABG pO2 ABG HCO3 ABG O2 Saturation ABG Base Excess ABG Hemoglobin Oxyhemoglobin Sodium Potassium Chloride Carbon Dioxide BUN Creatinine Glucose POC Glucose Lactic Acid 3.60 H* Uric Acid Calcium Phosphorus Magnesium Ferritin ALT Lactate Dehydrogenase Total Creatine Kinase CK-MB (CK-2) 4.6 H Troponin T 0.164 H* NT-Pro-B Natriuret Pep 61902 H Total Protein Albumin Prealbumin Cholesterol 259 H LDL Cholesterol Direct 187 H HDL Cholesterol 63 H Vitamin B12 Folate Urine WBC (Auto) Urine Creatinine Crossmatch 03/10/22 03/10/22 03/10/22 02:43 05:45 05:45 WBC RBC Hgb Hct MCH RDW Plt Count Lymph % (Auto) Lymph # (Auto) Seg Neutrophils % Seg Neuts % (Manual) Lymphocytes % (Manual) Nucleated RBC % Seg Neutrophils # Seg Neutrophils # Man Lymphocytes # (Manual) Monocytes # (Manual) Eosinophils # (Manual) PT INR D-Dimer 787.78 H Heparin Anti-Xa Level ABG pH ABG pO2 ABG HCO3 ABG O2 Saturation ABG Base Excess ABG Hemoglobin Oxyhemoglobin Sodium Potassium Chloride Carbon Dioxide BUN Creatinine Glucose POC Glucose Lactic Acid 3.70 H* 3.10 H* Uric Acid Calcium Phosphorus Magnesium Ferritin ALT Lactate Dehydrogenase Total Creatine Kinase CK-MB (CK-2) Troponin T NT-Pro-B Natriuret Pep Total Protein Albumin Prealbumin Cholesterol LDL Cholesterol Direct HDL Cholesterol Vitamin B12 Folate Urine WBC (Auto) Urine Creatinine Crossmatch 03/10/22 03/10/22 03/10/22 05:45 05:45 12:24 WBC RBC Hgb Hct MCH RDW Plt Count Lymph % (Auto) Lymph # (Auto) Seg Neutrophils % Seg Neuts % (Manual) Lymphocytes % (Manual) Nucleated RBC % Seg Neutrophils # Seg Neutrophils # Man Lymphocytes # (Manual) Monocytes # (Manual) Eosinophils # (Manual) PT INR D-Dimer Heparin Anti-Xa Level ABG pH ABG pO2 ABG HCO3 ABG O2 Saturation ABG Base Excess ABG Hemoglobin Oxyhemoglobin Sodium 124 L Potassium 3.3 L Chloride Carbon Dioxide 11 L BUN Creatinine 0.2 L Glucose POC Glucose Lactic Acid Uric Acid Calcium 6.9 L D Phosphorus Magnesium Ferritin 219.2 H ALT Lactate Dehydrogenase 210 H Total Creatine Kinase CK-MB (CK-2) Troponin T NT-Pro-B Natriuret Pep Total Protein Albumin Prealbumin Cholesterol LDL Cholesterol Direct HDL Cholesterol Vitamin B12 Folate Urine WBC (Auto) Urine Creatinine Crossmatch 03/10/22 03/10/22 03/10/22 12:24 12:24 12:24 WBC RBC Hgb Hct MCH RDW Plt Count Lymph % (Auto) Lymph # (Auto) Seg Neutrophils % Seg Neuts % (Manual) Lymphocytes % (Manual) Nucleated RBC % Seg Neutrophils # Seg Neutrophils # Man Lymphocytes # (Manual) Monocytes # (Manual) Eosinophils # (Manual) PT INR D-Dimer Heparin Anti-Xa Level ABG pH ABG pO2 ABG HCO3 ABG O2 Saturation ABG Base Excess ABG Hemoglobin Oxyhemoglobin Sodium 128 L Potassium Chloride Carbon Dioxide BUN Creatinine Glucose POC Glucose Lactic Acid 2.70 H* Uric Acid Calcium Phosphorus Magnesium Ferritin ALT Lactate Dehydrogenase Total Creatine Kinase 901 H CK-MB (CK-2) 15.3 H Troponin T 0.032 H D NT-Pro-B Natriuret Pep Total Protein Albumin Prealbumin Cholesterol LDL Cholesterol Direct HDL Cholesterol Vitamin B12 Folate Urine WBC (Auto) Urine Creatinine Crossmatch 03/10/22 03/10/22 03/10/22 12:45 13:15 18:00 WBC RBC Hgb Hct MCH RDW Plt Count Lymph % (Auto) Lymph # (Auto) Seg Neutrophils % Seg Neuts % (Manual) Lymphocytes % (Manual) Nucleated RBC % Seg Neutrophils # Seg Neutrophils # Man Lymphocytes # (Manual) Monocytes # (Manual) Eosinophils # (Manual) PT INR D-Dimer Heparin Anti-Xa Level ABG pH 7.315 L ABG pO2 70.1 L ABG HCO3 15.6 L ABG O2 Saturation 93.8 L ABG Base Excess -9.5 L ABG Hemoglobin 11.0 L Oxyhemoglobin 92.4 L Sodium 129 L Potassium Chloride Carbon Dioxide 17 L BUN Creatinine 0.2 L Glucose POC Glucose Lactic Acid Uric Acid 1.6 L Calcium 7.0 L Phosphorus Magnesium Ferritin ALT Lactate Dehydrogenase Total Creatine Kinase CK-MB (CK-2) Troponin T NT-Pro-B Natriuret Pep Total Protein Albumin Prealbumin Cholesterol LDL Cholesterol Direct HDL Cholesterol Vitamin B12 Folate Urine WBC (Auto) Urine Creatinine Crossmatch 03/10/22 03/10/22 03/11/22 18:20 21:05 05:00 WBC 13.7 H RBC 3.44 L Hgb 9.6 L Hct 29.0 L D MCH RDW Plt Count Lymph % (Auto) 8.9 L Lymph # (Auto) Seg Neutrophils % 86.6 H Seg Neuts % (Manual) Lymphocytes % (Manual) Nucleated RBC % Seg Neutrophils # 11.8 H Seg Neutrophils # Man Lymphocytes # (Manual) Monocytes # (Manual) Eosinophils # (Manual) PT INR D-Dimer Heparin Anti-Xa Level ABG pH ABG pO2 116.3 H ABG HCO3 17.2 L ABG O2 Saturation ABG Base Excess -6.4 L ABG Hemoglobin 11.0 L Oxyhemoglobin Sodium Potassium Chloride Carbon Dioxide BUN Creatinine Glucose POC Glucose Lactic Acid Uric Acid Calcium Phosphorus Magnesium Ferritin ALT Lactate Dehydrogenase Total Creatine Kinase CK-MB (CK-2) Troponin T NT-Pro-B Natriuret Pep Total Protein Albumin Prealbumin Cholesterol LDL Cholesterol Direct HDL Cholesterol Vitamin B12 Folate Urine WBC (Auto) 105.0 H Urine Creatinine Crossmatch 03/11/22 03/11/22 03/12/22 05:00 Unknown 04:10 WBC RBC Hgb Hct MCH RDW Plt Count Lymph % (Auto) Lymph # (Auto) Seg Neutrophils % Seg Neuts % (Manual) Lymphocytes % (Manual) Nucleated RBC % Seg Neutrophils # Seg Neutrophils # Man Lymphocytes # (Manual) Monocytes # (Manual) Eosinophils # (Manual) PT INR D-Dimer Heparin Anti-Xa Level ABG pH 7.472 H 7.482 H ABG pO2 65.5 L ABG HCO3 19.8 L ABG O2 Saturation ABG Base Excess -2.9 L ABG Hemoglobin 10.1 L 8.4 L Oxyhemoglobin Sodium 132 L Potassium Chloride Carbon Dioxide 20 L BUN 6 L Creatinine 0.2 L Glucose POC Glucose Lactic Acid Uric Acid Calcium 7.5 L Phosphorus Magnesium Ferritin ALT Lactate Dehydrogenase Total Creatine Kinase CK-MB (CK-2) Troponin T NT-Pro-B Natriuret Pep Total Protein Albumin Prealbumin Cholesterol LDL Cholesterol Direct HDL Cholesterol Vitamin B12 Folate Urine WBC (Auto) Urine Creatinine Crossmatch 03/12/22 03/12/22 03/12/22 04:20 04:20 12:25 WBC 13.6 H RBC 3.11 L Hgb 8.7 L Hct 26.1 L MCH RDW Plt Count Lymph % (Auto) Lymph # (Auto) Seg Neutrophils % Seg Neuts % (Manual) Lymphocytes % (Manual) Nucleated RBC % Seg Neutrophils # Seg Neutrophils # Man Lymphocytes # (Manual) Monocytes # (Manual) Eosinophils # (Manual) PT INR D-Dimer Heparin Anti-Xa Level ABG pH ABG pO2 ABG HCO3 ABG O2 Saturation ABG Base Excess ABG Hemoglobin Oxyhemoglobin Sodium 128 L Potassium 3.2 L Chloride 93.9 L Carbon Dioxide BUN 4 L Creatinine 0.2 L Glucose 103 H POC Glucose 116 H Lactic Acid Uric Acid Calcium 7.4 L Phosphorus 1.10 L Magnesium 2.40 H Ferritin ALT Lactate Dehydrogenase Total Creatine Kinase CK-MB (CK-2) Troponin T NT-Pro-B Natriuret Pep Total Protein Albumin Prealbumin Cholesterol LDL Cholesterol Direct HDL Cholesterol Vitamin B12 Folate Urine WBC (Auto) Urine Creatinine Crossmatch 03/12/22 03/12/22 03/12/22 18:40 18:40 18:40 WBC RBC Hgb Hct MCH RDW Plt Count Lymph % (Auto) Lymph # (Auto) Seg Neutrophils % Seg Neuts % (Manual) Lymphocytes % (Manual) Nucleated RBC % Seg Neutrophils # Seg Neutrophils # Man Lymphocytes # (Manual) Monocytes # (Manual) Eosinophils # (Manual) PT INR D-Dimer Heparin Anti-Xa Level ABG pH ABG pO2 ABG HCO3 ABG O2 Saturation ABG Base Excess ABG Hemoglobin Oxyhemoglobin Sodium Potassium Chloride Carbon Dioxide BUN Creatinine Glucose POC Glucose Lactic Acid Uric Acid Calcium Phosphorus Magnesium Ferritin ALT Lactate Dehydrogenase Total Creatine Kinase CK-MB (CK-2) Troponin T NT-Pro-B Natriuret Pep Total Protein Albumin Prealbumin 0.044 L Cholesterol LDL Cholesterol Direct HDL Cholesterol Vitamin B12 1021 H Folate 2.15 L Urine WBC (Auto) Urine Creatinine Crossmatch 03/13/22 03/13/22 03/13/22 04:10 08:00 09:50 WBC 15.0 H RBC 2.82 L Hgb 8.0 L Hct 23.9 L MCH RDW 15.5 H Plt Count Lymph % (Auto) Lymph # (Auto) Seg Neutrophils % Seg Neuts % (Manual) Lymphocytes % (Manual) Nucleated RBC % Seg Neutrophils # Seg Neutrophils # Man Lymphocytes # (Manual) Monocytes # (Manual) Eosinophils # (Manual) PT INR D-Dimer Heparin Anti-Xa Level ABG pH ABG pO2 98.6 H ABG HCO3 ABG O2 Saturation ABG Base Excess ABG Hemoglobin 8.3 L Oxyhemoglobin Sodium 130 L Potassium Chloride 96.1 L Carbon Dioxide BUN Creatinine 0.4 L D Glucose 148 H POC Glucose Lactic Acid Uric Acid Calcium 7.3 L Phosphorus Magnesium Ferritin ALT Lactate Dehydrogenase Total Creatine Kinase CK-MB (CK-2) Troponin T NT-Pro-B Natriuret Pep Total Protein Albumin Prealbumin Cholesterol LDL Cholesterol Direct HDL Cholesterol Vitamin B12 Folate Urine WBC (Auto) Urine Creatinine Crossmatch 03/13/22 03/13/22 03/14/22 20:15 22:59 04:54 WBC 17.0 H RBC 2.79 L Hgb 7.8 L Hct 23.6 L MCH RDW 15.6 H Plt Count Lymph % (Auto) Lymph # (Auto) Seg Neutrophils % Seg Neuts % (Manual) Lymphocytes % (Manual) Nucleated RBC % Seg Neutrophils # Seg Neutrophils # Man Lymphocytes # (Manual) Monocytes # (Manual) Eosinophils # (Manual) PT INR D-Dimer Heparin Anti-Xa Level ABG pH ABG pO2 ABG HCO3 ABG O2 Saturation ABG Base Excess -2.9 L ABG Hemoglobin 8.0 L Oxyhemoglobin Sodium Potassium Chloride Carbon Dioxide BUN Creatinine Glucose POC Glucose 127 H Lactic Acid Uric Acid Calcium Phosphorus Magnesium Ferritin ALT Lactate Dehydrogenase Total Creatine Kinase CK-MB (CK-2) Troponin T NT-Pro-B Natriuret Pep Total Protein Albumin Prealbumin Cholesterol LDL Cholesterol Direct HDL Cholesterol Vitamin B12 Folate Urine WBC (Auto) Urine Creatinine Crossmatch 03/14/22 03/14/22 03/14/22 04:54 16:15 22:59 WBC RBC Hgb Hct MCH RDW Plt Count Lymph % (Auto) Lymph # (Auto) Seg Neutrophils % Seg Neuts % (Manual) Lymphocytes % (Manual) Nucleated RBC % Seg Neutrophils # Seg Neutrophils # Man Lymphocytes # (Manual) Monocytes # (Manual) Eosinophils # (Manual) PT INR D-Dimer Heparin Anti-Xa Level ABG pH ABG pO2 ABG HCO3 ABG O2 Saturation ABG Base Excess ABG Hemoglobin Oxyhemoglobin Sodium 129 L 128 L Potassium 3.5 L Chloride 97.1 L 97.0 L Carbon Dioxide BUN 24 H 31 H Creatinine 0.5 L Glucose 125 H 114 H POC Glucose 134 H Lactic Acid Uric Acid Calcium 7.0 L 7.0 L Phosphorus Magnesium Ferritin ALT Lactate Dehydrogenase Total Creatine Kinase CK-MB (CK-2) Troponin T NT-Pro-B Natriuret Pep Total Protein Albumin Prealbumin Cholesterol LDL Cholesterol Direct HDL Cholesterol Vitamin B12 Folate Urine WBC (Auto) Urine Creatinine Crossmatch 03/15/22 03/15/22 03/15/22 04:10 04:10 05:02 WBC 12.9 H RBC 2.55 L Hgb 7.1 L Hct 21.5 L MCH RDW 15.8 H Plt Count Lymph % (Auto) Lymph # (Auto) Seg Neutrophils % Seg Neuts % (Manual) 88.0 H Lymphocytes % (Manual) 5.0 L Nucleated RBC % Seg Neutrophils # Seg Neutrophils # Man 11.4 H Lymphocytes # (Manual) 0.6 L Monocytes # (Manual) Eosinophils # (Manual) 0.5 H PT INR D-Dimer Heparin Anti-Xa Level ABG pH ABG pO2 ABG HCO3 ABG O2 Saturation ABG Base Excess ABG Hemoglobin Oxyhemoglobin Sodium 127 L Potassium Chloride 96.3 L Carbon Dioxide 21 L BUN 33 H Creatinine Glucose 126 H POC Glucose 116 H Lactic Acid Uric Acid Calcium 7.4 L Phosphorus 1.20 L Magnesium Ferritin ALT Lactate Dehydrogenase Total Creatine Kinase CK-MB (CK-2) Troponin T NT-Pro-B Natriuret Pep Total Protein 5.3 L Albumin 2.1 L Prealbumin Cholesterol LDL Cholesterol Direct HDL Cholesterol Vitamin B12 Folate Urine WBC (Auto) Urine Creatinine Crossmatch 03/15/22 03/15/22 03/15/22 05:55 09:42 11:34 WBC RBC Hgb Hct MCH RDW Plt Count Lymph % (Auto) Lymph # (Auto) Seg Neutrophils % Seg Neuts % (Manual) Lymphocytes % (Manual) Nucleated RBC % Seg Neutrophils # Seg Neutrophils # Man Lymphocytes # (Manual) Monocytes # (Manual) Eosinophils # (Manual) PT INR D-Dimer Heparin Anti-Xa Level ABG pH ABG pO2 119.0 H ABG HCO3 ABG O2 Saturation ABG Base Excess -3.1 L ABG Hemoglobin 8.2 L Oxyhemoglobin Sodium Potassium Chloride Carbon Dioxide BUN Creatinine Glucose POC Glucose 125 H Lactic Acid Uric Acid Calcium Phosphorus Magnesium Ferritin ALT Lactate Dehydrogenase Total Creatine Kinase CK-MB (CK-2) Troponin T NT-Pro-B Natriuret Pep Total Protein Albumin Prealbumin Cholesterol LDL Cholesterol Direct HDL Cholesterol Vitamin B12 Folate Urine WBC (Auto) Urine Creatinine Crossmatch See Detail 03/15/22 03/16/22 03/16/22 20:55 04:50 04:50 WBC 16.9 H RBC 2.53 L Hgb 7.1 L Hct 21.5 L MCH RDW 16.0 H Plt Count Lymph % (Auto) Lymph # (Auto) Seg Neutrophils % Seg Neuts % (Manual) Lymphocytes % (Manual) Nucleated RBC % Seg Neutrophils # Seg Neutrophils # Man Lymphocytes # (Manual) Monocytes # (Manual) Eosinophils # (Manual) PT INR D-Dimer Heparin Anti-Xa Level ABG pH 7.320 L ABG pO2 122.8 H ABG HCO3 ABG O2 Saturation ABG Base Excess -4.1 L ABG Hemoglobin 7.0 L Oxyhemoglobin Sodium 132 L Potassium Chloride Carbon Dioxide 20 L BUN 44 H Creatinine Glucose 123 H POC Glucose Lactic Acid Uric Acid Calcium 7.6 L Phosphorus Magnesium Ferritin ALT Lactate Dehydrogenase Total Creatine Kinase CK-MB (CK-2) Troponin T NT-Pro-B Natriuret Pep Total Protein Albumin Prealbumin Cholesterol LDL Cholesterol Direct HDL Cholesterol Vitamin B12 Folate Urine WBC (Auto) Urine Creatinine Crossmatch 03/16/22 03/16/22 03/16/22 05:42 11:32 23:05 WBC RBC Hgb Hct MCH RDW Plt Count Lymph % (Auto) Lymph # (Auto) Seg Neutrophils % Seg Neuts % (Manual) Lymphocytes % (Manual) Nucleated RBC % Seg Neutrophils # Seg Neutrophils # Man Lymphocytes # (Manual) Monocytes # (Manual) Eosinophils # (Manual) PT INR D-Dimer Heparin Anti-Xa Level ABG pH ABG pO2 ABG HCO3 ABG O2 Saturation ABG Base Excess ABG Hemoglobin Oxyhemoglobin Sodium Potassium Chloride Carbon Dioxide BUN Creatinine Glucose POC Glucose 113 H 118 H 114 H Lactic Acid Uric Acid Calcium Phosphorus Magnesium Ferritin ALT Lactate Dehydrogenase Total Creatine Kinase CK-MB (CK-2) Troponin T NT-Pro-B Natriuret Pep Total Protein Albumin Prealbumin Cholesterol LDL Cholesterol Direct HDL Cholesterol Vitamin B12 Folate Urine WBC (Auto) Urine Creatinine Crossmatch 03/17/22 03/17/22 03/17/22 04:00 04:00 05:00 WBC 19.1 H RBC 2.44 L Hgb 6.6 L Hct 20.6 L MCH 27 L RDW 16.4 H Plt Count Lymph % (Auto) Lymph # (Auto) Seg Neutrophils % Seg Neuts % (Manual) 78.0 H Lymphocytes % (Manual) 2.0 L Nucleated RBC % Seg Neutrophils # Seg Neutrophils # Man 14.9 H Lymphocytes # (Manual) 0.4 L Monocytes # (Manual) 1.3 H Eosinophils # (Manual) 0.6 H PT INR D-Dimer Heparin Anti-Xa Level ABG pH 7.334 L ABG pO2 132.4 H ABG HCO3 ABG O2 Saturation ABG Base Excess -2.7 L ABG Hemoglobin 9.1 L Oxyhemoglobin Sodium 134 L Potassium Chloride Carbon Dioxide BUN 55 H Creatinine Glucose 125 H POC Glucose Lactic Acid Uric Acid Calcium 8.1 L Phosphorus Magnesium Ferritin ALT Lactate Dehydrogenase Total Creatine Kinase CK-MB (CK-2) Troponin T NT-Pro-B Natriuret Pep Total Protein Albumin Prealbumin Cholesterol LDL Cholesterol Direct HDL Cholesterol Vitamin B12 Folate Urine WBC (Auto) Urine Creatinine Crossmatch 03/17/22 03/17/22 03/17/22 05:40 15:30 17:48 WBC RBC Hgb 8.2 L Hct 24.9 L MCH RDW Plt Count Lymph % (Auto) Lymph # (Auto) Seg Neutrophils % Seg Neuts % (Manual) Lymphocytes % (Manual) Nucleated RBC % Seg Neutrophils # Seg Neutrophils # Man Lymphocytes # (Manual) Monocytes # (Manual) Eosinophils # (Manual) PT INR D-Dimer Heparin Anti-Xa Level ABG pH ABG pO2 ABG HCO3 ABG O2 Saturation ABG Base Excess ABG Hemoglobin Oxyhemoglobin Sodium Potassium Chloride Carbon Dioxide BUN Creatinine Glucose POC Glucose 115 H 117 H Lactic Acid Uric Acid Calcium Phosphorus Magnesium Ferritin ALT Lactate Dehydrogenase Total Creatine Kinase CK-MB (CK-2) Troponin T NT-Pro-B Natriuret Pep Total Protein Albumin Prealbumin Cholesterol LDL Cholesterol Direct HDL Cholesterol Vitamin B12 Folate Urine WBC (Auto) Urine Creatinine Crossmatch 03/17/22 03/18/22 03/18/22 23:54 05:04 05:20 WBC RBC Hgb Hct MCH RDW Plt Count Lymph % (Auto) Lymph # (Auto) Seg Neutrophils % Seg Neuts % (Manual) Lymphocytes % (Manual) Nucleated RBC % Seg Neutrophils # Seg Neutrophils # Man Lymphocytes # (Manual) Monocytes # (Manual) Eosinophils # (Manual) PT INR D-Dimer Heparin Anti-Xa Level ABG pH 7.302 L ABG pO2 71.0 L ABG HCO3 ABG O2 Saturation 94.9 L ABG Base Excess -4.3 L ABG Hemoglobin 9.6 L Oxyhemoglobin 92.9 L Sodium 135 L Potassium Chloride Carbon Dioxide BUN 66 H Creatinine Glucose 122 H POC Glucose 114 H Lactic Acid Uric Acid Calcium 8.2 L Phosphorus Magnesium Ferritin ALT Lactate Dehydrogenase Total Creatine Kinase CK-MB (CK-2) Troponin T NT-Pro-B Natriuret Pep Total Protein 5.4 L Albumin 2.0 L Prealbumin Cholesterol LDL Cholesterol Direct HDL Cholesterol Vitamin B12 Folate Urine WBC (Auto) Urine Creatinine Crossmatch 03/18/22 03/18/2203/18/22 05:20 06:44 12:04 WBC 23.9 H RBC 2.88 L Hgb 8.1 L Hct 25.1 L MCH RDW 16.0 H Plt Count Lymph % (Auto) Lymph # (Auto) Seg Neutrophils % Seg Neuts % (Manual) 89.0 H Lymphocytes % (Manual) 7.5 L Nucleated RBC % Seg Neutrophils # Seg Neutrophils # Man 21.3 H Lymphocytes # (Manual) Monocytes # (Manual) Eosinophils # (Manual) PT INR D-Dimer Heparin Anti-Xa Level ABG pH ABG pO2 ABG HCO3 ABG O2 Saturation ABG Base Excess ABG Hemoglobin Oxyhemoglobin Sodium Potassium Chloride Carbon Dioxide BUN Creatinine Glucose POC Glucose 107 H 119 H Lactic Acid Uric Acid Calcium Phosphorus Magnesium Ferritin ALT Lactate Dehydrogenase Total Creatine Kinase CK-MB (CK-2) Troponin T NT-Pro-B Natriuret Pep Total Protein Albumin Prealbumin Cholesterol LDL Cholesterol Direct HDL Cholesterol Vitamin B12 Folate Urine WBC (Auto) Urine Creatinine Crossmatch 03/19/22 03/19/22 03/19/22 05:15 08:59 08:59 WBC 30.4 H RBC 2.78 L Hgb 7.7 L Hct 24.2 L MCH RDW 16.4 H Plt Count Lymph % (Auto) Lymph # (Auto) Seg Neutrophils % Seg Neuts % (Manual) Lymphocytes % (Manual) Nucleated RBC % Seg Neutrophils # Seg Neutrophils # Man Lymphocytes # (Manual) Monocytes # (Manual) Eosinophils # (Manual) PT INR D-Dimer Heparin Anti-Xa Level ABG pH 7.341 L ABG pO2 78.1 L ABG HCO3 ABG O2 Saturation ABG Base Excess -4.5 L ABG Hemoglobin 9.5 L Oxyhemoglobin Sodium 132 L Potassium 5.5 H Chloride Carbon Dioxide 19 L BUN 84 H Creatinine Glucose 124 H POC Glucose Lactic Acid Uric Acid Calcium Phosphorus Magnesium Ferritin ALT Lactate Dehydrogenase Total Creatine Kinase CK-MB (CK-2) Troponin T NT-Pro-B Natriuret Pep Total Protein Albumin Prealbumin Cholesterol LDL Cholesterol Direct HDL Cholesterol Vitamin B12 Folate Urine WBC (Auto) Urine Creatinine Crossmatch 03/19/22 03/19/22 03/19/22 14:40 14:40 18:37 WBC RBC Hgb Hct MCH RDW Plt Count Lymph % (Auto) Lymph # (Auto) Seg Neutrophils % Seg Neuts % (Manual) Lymphocytes % (Manual) Nucleated RBC % Seg Neutrophils # Seg Neutrophils # Man Lymphocytes # (Manual) Monocytes # (Manual) Eosinophils # (Manual) PT INR D-Dimer Heparin Anti-Xa Level ABG pH 7.337 L ABG pO2 41.2 L ABG HCO3 ABG O2 Saturation 74.8 L ABG Base Excess -4.5 L ABG Hemoglobin 7.9 L Oxyhemoglobin 72.9 L Sodium Potassium Chloride Carbon Dioxide BUN Creatinine Glucose POC Glucose 120 H Lactic Acid Uric Acid Calcium Phosphorus Magnesium Ferritin ALT Lactate Dehydrogenase Total Creatine Kinase CK-MB (CK-2) Troponin T NT-Pro-B Natriuret Pep Total Protein Albumin Prealbumin Cholesterol LDL Cholesterol Direct HDL Cholesterol Vitamin B12 Folate Urine WBC (Auto) Urine Creatinine 34.4 H Crossmatch 03/19/22 03/20/22 03/20/22 23:15 05:20 05:20 WBC 29.5 H RBC 2.76 L Hgb 7.6 L Hct 23.7 L MCH 27 L RDW 16.6 H Plt Count Lymph % (Auto) Lymph # (Auto) Seg Neutrophils % Seg Neuts % (Manual) Lymphocytes % (Manual) Nucleated RBC % Seg Neutrophils # Seg Neutrophils # Man Lymphocytes # (Manual) Monocytes # (Manual) Eosinophils # (Manual) PT INR D-Dimer Heparin Anti-Xa Level ABG pH ABG pO2 ABG HCO3 ABG O2 Saturation ABG Base Excess ABG Hemoglobin Oxyhemoglobin Sodium Potassium Chloride Carbon Dioxide BUN 96 H Creatinine Glucose 141 H POC Glucose 125 H Lactic Acid Uric Acid Calcium Phosphorus Magnesium Ferritin ALT Lactate Dehydrogenase Total Creatine Kinase CK-MB (CK-2) Troponin T NT-Pro-B Natriuret Pep Total Protein Albumin Prealbumin Cholesterol LDL Cholesterol Direct HDL Cholesterol Vitamin B12 Folate Urine WBC (Auto) Urine Creatinine Crossmatch 03/20/22 03/20/22 03/21/22 06:09 10:05 04:00 WBC RBC Hgb Hct MCH RDW Plt Count Lymph % (Auto) Lymph # (Auto) Seg Neutrophils % Seg Neuts % (Manual) Lymphocytes % (Manual) Nucleated RBC % Seg Neutrophils # Seg Neutrophils # Man Lymphocytes # (Manual) Monocytes # (Manual) Eosinophils # (Manual) PT INR D-Dimer Heparin Anti-Xa Level ABG pH 7.278 L ABG pO2 71.0 L ABG HCO3 ABG O2 Saturation 92.6 L ABG Base Excess ABG Hemoglobin 8.2 L Oxyhemoglobin 90.5 L Sodium 135 L Potassium 5.7 H D Chloride 97.4 L Carbon Dioxide 21 L BUN 104 H Creatinine 1.3 H Glucose 118 H POC Glucose 121 H Lactic Acid Uric Acid Calcium Phosphorus Magnesium Ferritin ALT Lactate Dehydrogenase Total Creatine Kinase CK-MB (CK-2) Troponin T NT-Pro-B Natriuret Pep Total Protein Albumin Prealbumin Cholesterol LDL Cholesterol Direct HDL Cholesterol Vitamin B12 Folate Urine WBC (Auto) Urine Creatinine Crossmatch 03/21/22 03/21/22 03/21/22 04:40 15:30 21:00 WBC 25.6 H RBC 2.61 L Hgb 7.3 L Hct 22.8 L MCH RDW 16.8 H Plt Count 462 H Lymph % (Auto) Lymph # (Auto) Seg Neutrophils % Seg Neuts % (Manual) 71.0 H Lymphocytes % (Manual) 2.0 L Nucleated RBC % 1.0 H Seg Neutrophils # Seg Neutrophils # Man 18.2 H Lymphocytes # (Manual) 0.5 L Monocytes # (Manual) 1.8 H Eosinophils # (Manual) 0.8 H PT INR D-Dimer Heparin Anti-Xa Level ABG pH 7.197 L* 7.284 L ABG pO2 76.6 L 68.6 L ABG HCO3 ABG O2 Saturation 92.8 L ABG Base Excess -5.7 L -3.7 L ABG Hemoglobin 10.0 L 7.6 L Oxyhemoglobin 94.3 L 90.7 L Sodium Potassium Chloride Carbon Dioxide BUN Creatinine Glucose POC Glucose Lactic Acid Uric Acid Calcium Phosphorus Magnesium Ferritin ALT Lactate Dehydrogenase Total Creatine Kinase CK-MB (CK-2) Troponin T NT-Pro-B Natriuret Pep Total Protein Albumin Prealbumin Cholesterol LDL Cholesterol Direct HDL Cholesterol Vitamin B12 Folate Urine WBC (Auto) Urine Creatinine Crossmatch 03/22/22 03/22/22 03/22/22 04:10 04:10 09:00 WBC 32.9 H RBC 2.60 L Hgb 7.4 L Hct 22.3 L MCH RDW 16.8 H Plt Count 517 H Lymph % (Auto) Lymph # (Auto) Seg Neutrophils % Seg Neuts % (Manual) Lymphocytes % (Manual) Nucleated RBC % Seg Neutrophils # Seg Neutrophils # Man Lymphocytes # (Manual) Monocytes # (Manual) Eosinophils # (Manual) PT INR D-Dimer Heparin Anti-Xa Level ABG pH ABG pO2 ABG HCO3 19.9 L ABG O2 Saturation ABG Base Excess -4.9 L ABG Hemoglobin 7.5 L Oxyhemoglobin Sodium Potassium 5.4 H Chloride 97.2 L Carbon Dioxide 21 L BUN 116 H Creatinine 1.6 H Glucose 142 H POC Glucose Lactic Acid Uric Acid Calcium Phosphorus Magnesium Ferritin ALT Lactate Dehydrogenase Total Creatine Kinase CK-MB (CK-2) Troponin T NT-Pro-B Natriuret Pep Total Protein Albumin Prealbumin Cholesterol LDL Cholesterol Direct HDL Cholesterol Vitamin B12 Folate Urine WBC (Auto) Urine Creatinine Crossmatch 03/22/22 03/22/22 03/22/22 09:30 13:02 17:49 WBC RBC Hgb Hct MCH RDW Plt Count Lymph % (Auto) Lymph # (Auto) Seg Neutrophils % Seg Neuts % (Manual) Lymphocytes % (Manual) Nucleated RBC % Seg Neutrophils # Seg Neutrophils # Man Lymphocytes # (Manual) Monocytes # (Manual) Eosinophils # (Manual) PT 17.2 H INR 1.25 H D-Dimer Heparin Anti-Xa Level ABG pH ABG pO2 ABG HCO3 ABG O2 Saturation ABG Base Excess ABG Hemoglobin Oxyhemoglobin Sodium Potassium Chloride Carbon Dioxide BUN Creatinine Glucose POC Glucose 120 H 118 H Lactic Acid Uric Acid Calcium Phosphorus Magnesium Ferritin ALT Lactate Dehydrogenase Total Creatine Kinase CK-MB (CK-2) Troponin T NT-Pro-B Natriuret Pep Total Protein Albumin Prealbumin Cholesterol LDL Cholesterol Direct HDL Cholesterol Vitamin B12 Folate Urine WBC (Auto) Urine Creatinine Crossmatch 03/23/22 03/23/22 03/23/22 04:20 04:20 04:25 WBC 37.3 H RBC 2.57 L Hgb 7.2 L Hct 22.3 L MCH RDW 16.6 H Plt Count 580 H Lymph % (Auto) Lymph # (Auto) Seg Neutrophils % Seg Neuts % (Manual) Lymphocytes % (Manual) Nucleated RBC % Seg Neutrophils # Seg Neutrophils # Man Lymphocytes # (Manual) Monocytes # (Manual) Eosinophils # (Manual) PT INR D-Dimer Heparin Anti-Xa Level ABG pH 7.333 L ABG pO2 70.9 L ABG HCO3 ABG O2 Saturation 93.3 L ABG Base Excess -5.0 L ABG Hemoglobin 7.0 L Oxyhemoglobin 91.2 L Sodium Potassium Chloride Carbon Dioxide 19 L BUN 125 H Creatinine 1.9 H Glucose 133 H POC Glucose Lactic Acid Uric Acid Calcium 8.2 L Phosphorus Magnesium Ferritin ALT Lactate Dehydrogenase Total Creatine Kinase CK-MB (CK-2) Troponin T NT-Pro-B Natriuret Pep Total Protein Albumin Prealbumin Cholesterol LDL Cholesterol Direct HDL Cholesterol Vitamin B12 Folate Urine WBC (Auto) Urine Creatinine Crossmatch 03/23/22 03/23/22 03/23/22 05:40 07:25 11:13 WBC RBC Hgb Hct MCH RDW Plt Count Lymph % (Auto) Lymph # (Auto) Seg Neutrophils % Seg Neuts % (Manual) Lymphocytes % (Manual) Nucleated RBC % Seg Neutrophils # Seg Neutrophils # Man Lymphocytes # (Manual) Monocytes # (Manual) Eosinophils # (Manual) PT INR D-Dimer Heparin Anti-Xa Level 0.29 L ABG pH ABG pO2 ABG HCO3 ABG O2 Saturation ABG Base Excess ABG Hemoglobin Oxyhemoglobin Sodium Potassium Chloride Carbon Dioxide BUN Creatinine Glucose POC Glucose 121 H 112 H Lactic Acid Uric Acid Calcium Phosphorus Magnesium Ferritin ALT Lactate Dehydrogenase Total Creatine Kinase CK-MB (CK-2) Troponin T NT-Pro-B Natriuret Pep Total Protein Albumin Prealbumin Cholesterol LDL Cholesterol Direct HDL Cholesterol Vitamin B12 Folate Urine WBC (Auto) Urine Creatinine Crossmatch 03/23/22 03/24/22 03/24/22 23:35 04:25 04:25 WBC RBC Hgb 7.3 L Hct 24.5 L MCH RDW Plt Count Lymph % (Auto) Lymph # (Auto) Seg Neutrophils % Seg Neuts % (Manual) Lymphocytes % (Manual) Nucleated RBC % Seg Neutrophils # Seg Neutrophils # Man Lymphocytes # (Manual) Monocytes # (Manual) Eosinophils # (Manual) PT INR D-Dimer Heparin Anti-Xa Level ABG pH ABG pO2 ABG HCO3 ABG O2 Saturation ABG Base Excess ABG Hemoglobin Oxyhemoglobin Sodium 136 L Potassium 5.1 H Chloride Carbon Dioxide 18 L BUN 130 H Creatinine 2.1 H Glucose 122 H POC Glucose 114 H Lactic Acid Uric Acid Calcium 8.1 L Phosphorus Magnesium Ferritin ALT Lactate Dehydrogenase Total Creatine Kinase CK-MB (CK-2) Troponin T NT-Pro-B Natriuret Pep Total Protein Albumin Prealbumin Cholesterol LDL Cholesterol Direct HDL Cholesterol Vitamin B12 Folate Urine WBC (Auto) Urine Creatinine Crossmatch 03/24/22 03/24/22 03/24/22 04:40 08:40 09:23 WBC 47.4 H* RBC 2.73 L Hgb 7.5 L Hct 24.3 L MCH 27 L RDW 17.0 H Plt Count 667 H Lymph % (Auto) Lymph # (Auto) Seg Neutrophils % Seg Neuts % (Manual) 82.0 H Lymphocytes % (Manual) 6.0 L Nucleated RBC % 4.0 H Seg Neutrophils # Seg Neutrophils # Man 38.9 H Lymphocytes # (Manual) Monocytes # (Manual) 1.4 H Eosinophils # (Manual) 0.5 H PT INR D-Dimer Heparin Anti-Xa Level 0.18 L ABG pH 7.240 L ABG pO2 96.8 H ABG HCO3 18.1 L ABG O2 Saturation ABG Base Excess -8.6 L ABG Hemoglobin 7.2 L Oxyhemoglobin 94.5 L Sodium Potassium Chloride Carbon Dioxide BUN Creatinine Glucose POC Glucose Lactic Acid Uric Acid Calcium Phosphorus Magnesium Ferritin ALT Lactate Dehydrogenase Total Creatine Kinase CK-MB (CK-2) Troponin T NT-Pro-B Natriuret Pep Total Protein Albumin Prealbumin Cholesterol LDL Cholesterol Direct HDL Cholesterol Vitamin B12 Folate Urine WBC (Auto) Urine Creatinine Crossmatch 03/24/22 17:12 WBC RBC Hgb Hct MCH RDW Plt Count Lymph % (Auto) Lymph # (Auto) Seg Neutrophils % Seg Neuts % (Manual) Lymphocytes % (Manual) Nucleated RBC % Seg Neutrophils # Seg Neutrophils # Man Lymphocytes # (Manual) Monocytes # (Manual) Eosinophils # (Manual) PT INR D-Dimer Heparin Anti-Xa Level ABG pH ABG pO2 ABG HCO3 ABG O2 Saturation ABG Base Excess ABG Hemoglobin Oxyhemoglobin Sodium Potassium Chloride Carbon Dioxide BUN Creatinine Glucose POC Glucose 126 H Lactic Acid Uric Acid Calcium Phosphorus Magnesium Ferritin ALT Lactate Dehydrogenase Total Creatine Kinase CK-MB (CK-2) Troponin T NT-Pro-B Natriuret Pep Total Protein Albumin Prealbumin Cholesterol LDL Cholesterol Direct HDL Cholesterol Vitamin B12 Folate Urine WBC (Auto) Urine Creatinine Crossmatch Chest x-ray: image reviewed Allied health notes reviewed: RT
[2022-03-25] MEDS: VANCOMYCIN 250 MG/10 ML ORAL LIQD PO SCH ×4 (00:05→17:18)
[2022-03-25] MEDS: metroNIDAZOLE/NS 500 MG/100 ML 500 MG/100 ML BAG IV SCH ×3 (00:09→17:18)
[2022-03-25] MEDS: VASOPRESSIN 20 UNIT in SODIUM CHLORIDE 0.9% 100 ML IV SCH ×3 (01:12→19:31)
[2022-03-25] MEDS: NORepinephrine/NS 8 MG-250 ML 8 MG/250 ML INFUS..BTL IV SCH ×3 (03:35→14:17)
[2022-03-25 04:40] LABS: ABG Base Excess -8.5 mmol/L (-2.0-3.0); ABG Methemoglobin 0.5 % (0.0-1.5); ABG Oxygen Saturation 89.7 % (95.0-99.0); ABG PCO2 41.5 mm Hg; ABG PH 7.255 pH Units (7.350-7.450); ABG PO2 65.1 mm Hg (80.0-90.0)
[2022-03-25 05:18] LABS: Hematocrit 23.1 % (30.3-42.9); Hemoglobin 7.4 gm/dl (10.1-14.3); Mean Corpuscular HGB Conc 32 % (30-34); Mean Corpuscular Volume 89 fl (79-97); Platelet Count 630 K/mm3 (140-440); Red Cell Distribution Width 17.5 % (13.2-15.2)
[2022-03-25 05:19] LABS: Calcium 7.8 mg/dL (8.4-10.2)
[2022-03-25] MEDS: MIDODRINE 5 MG TAB PO SCH ×3 (08:17→15:19)
[2022-03-25] MEDS: HEPARIN/ 0.45% NACL DRIP 25,000 UNIT/500 ML BAG IV SCH (09:35)
[2022-03-25] MEDS: FAMOTIDINE 10 MG TAB FEEDTUBE SCH ×2 (09:37→22:46)
[2022-03-25] MEDS: levETIRAcetam 500 MG/5 ML ORAL LIQD FEEDTUBE SCH ×2 (09:37→22:46)
[2022-03-25] MEDS ORDERED: SODIUM POLYSTYRENE 15 GM/60 ML ORAL LIQD PO ONE (10:53)
--- NOTE | 2022-03-25 10:53 | Progress Note ---
Assessment and Plan 1. Acute kidney injury: Vasomotor TANIYA in the setting of shock. ATN. Renal US negative for hydro. Patient has medina catheter. Monitor renal function. Creatinine level is increasing. UOP is low. Avoid nephrotoxic agents. Meds dosage based on GFR. Monitor for [employer] needs. Patient is on Levophed, Vasopressin and Midodrine. Patient is not stable for hemodialysis at this point. 2. 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 Associated volume overload. Sodium level is better / fluctuates. 3. FEN: Hyperkalemia, Kayaxalate prn, monitor. Volume overload, diuretics as BP allows. Anion-gap metabolic acdosis, 2/2 lactic acidosis & TANIYA, on Sod bicarb drip, monitor. Replete lytes as needed. Monitor lytes and volume status. 4. Acute Hypoxemic Respiratory Failure / Multifocal Pneumonia / CAP: Chest X-ray was concerning for multifocal pneumonia. Eleavted D-dimer. Patient intubated on 03/10 due to tachypnea and worsening MS. 5. Hypotension / NSTEMI: Presented with hypotension. On Levophed, Vasopressin and Midodrine. Wean as tolerated. Followed Cards. 6. Sepsis: Likley 2/2 Multifocal Pneumonia/CAP. Covid negative. Abx. Monitor. 7. Acute Metabolic Encephalopathy: H/o Seizure Disorder. Now intubated on vent. Keppra. Seizure precautions. 8. MS with paraplegia: Bedbound status. Supportive care. Prognosis is slim. D/w ICU team. Subjective: Patient was seen and examined at the bedside. Examination: General appearance: well-developed, appears stated age, no distress, intubated, on vent HEENT: ATNC, no icterus Neck: trachea midline Respiratory: decreased breath sounds bilaterally Cardiology: regular, S1S2, no murmur Gastrointestinal: soft, normoactive bowel sounds, not tender Integumentary: no obvious rash Neurologic: not responding Ext: 2+ LE, dependent edema and anasarca noted : medina catheter Subjective Date of service: 03/25/22 Principal diagnosis: AHRF; Multifocal Pneumonia; Septic shock; NSTEMI; AMS; Seizures Objective - Vital Signs Vital signs: Vital Signs - 12hr 03/24/22 03/24/22 03/24/22 23:00 23:15 23:30 Temperature Pulse Rate 85 84 85 Respiratory 15 25 H 24 Rate Blood Pressure 85/55 90/63 93/56 O2 Sat by Pulse 97 99 96 Oximetry 03/24/22 03/25/22 03/25/22 23:45 00:00 00:15 Temperature 97.4 F L Pulse Rate 86 85 84 Respiratory 22 22 20 Rate Blood Pressure 93/54 89/55 81/47 O2 Sat by Pulse 96 98 Oximetry 03/25/22 03/25/22 03/25/22 00:30 00:45 00:51 Temperature Pulse Rate 87 85 88 Respiratory 20 19 Rate Blood Pressure 85/54 82/51 82/51 O2 Sat by Pulse 100 100 100 Oximetry 03/25/22 03/25/22 03/25/22 01:00 01:15 01:30 Temperature Pulse Rate 84 86 84 Respiratory 24 17 25 H Rate Blood Pressure 78/48 87/57 99/66 O2 Sat by Pulse 100 Oximetry 03/25/22 03/25/22 03/25/22 01:45 02:00 02:15 Temperature Pulse Rate 85 85 85 Respiratory 25 H 22 22 Rate Blood Pressure 107/66 109/69 104/67 O2 Sat by Pulse 100 97 98 Oximetry 03/25/22 03/25/22 03/25/22 02:30 02:45 03:01 Temperature Pulse Rate 83 85 86 Respiratory 26 H 22 24 Rate Blood Pressure 99/69 94/68 105/65 O2 Sat by Pulse 88 93 87 Oximetry 03/25/22 03/25/22 03/25/22 03:15 03:30 03:45 Temperature Pulse Rate 84 81 86 Respiratory 23 24 24 Rate Blood Pressure 85/50 78/49 78/49 O2 Sat by Pulse 95 Oximetry 03/25/22 03/25/22 03/25/22 04:00 04:15 04:30 Temperature 97.4 F L Pulse Rate 89 91 H 92 H Respiratory 26 H 26 H 22 Rate Blood Pressure 105/71 103/71 103/72 O2 Sat by Pulse 98 94 99 Oximetry 03/25/22 03/25/22 03/25/22 04:45 05:00 05:15 Temperature Pulse Rate 92 H 93 H 93 H Respiratory 25 H 25 H 26 H Rate Blood Pressure 108/74 104/72 104/68 O2 Sat by Pulse 94 95 94 Oximetry 03/25/22 03/25/22 03/25/22 05:30 05:45 06:00 Temperature Pulse Rate 90 89 91 H Respiratory 25 H 22 29 H Rate Blood Pressure 102/69 101/69 100/73 O2 Sat by Pulse 94 97 97 Oximetry 03/25/22 03/25/22 03/25/22 06:15 06:30 06:45 Temperature Pulse Rate 89 89 89 Respiratory 23 22 23 Rate Blood Pressure 106/80 98/68 96/68 O2 Sat by Pulse 87 98 Oximetry 03/25/22 03/25/22 03/25/22 07:00 07:08 07:15 Temperature 97.6 F Pulse Rate 90 90 Respiratory 23 22 Rate Blood Pressure 106/68 106/66 O2 Sat by Pulse 97 96 Oximetry 03/25/22 03/25/22 03/25/22 07:30 07:45 07:57 Temperature Pulse Rate 92 H 89 90 Respiratory 26 H 26 H Rate Blood Pressure 108/69 107/70 O2 Sat by Pulse 93 97 Oximetry 03/25/22 03/25/22 03/25/22 07:59 08:00 08:15 Temperature Pulse Rate 91 H 86 Respiratory 29 H 25 H Rate Blood Pressure 106/69 106/35 O2 Sat by Pulse 98 93 100 Oximetry 03/25/22 03/25/22 03/25/22 08:30 08:45 09:00 Temperature Pulse Rate 85 87 86 Respiratory 26 H 28 H 28 H Rate Blood Pressure 98/67 108/72 104/74 O2 Sat by Pulse 97 96 95 Oximetry 03/25/22 03/25/22 03/25/22 09:15 09:30 09:45 Temperature Pulse Rate 91 H 86 84 Respiratory 23 28 H 25 H Rate Blood Pressure 102/73 100/68 101/72 O2 Sat by Pulse 100 94 91 Oximetry 03/25/22 03/25/22 03/25/22 10:00 10:15 10:30 Temperature Pulse Rate 85 83 84 Respiratory 28 H 28 H 21 Rate Blood Pressure 102/70 99/70 109/73 O2 Sat by Pulse 96 69 L 90 Oximetry - Lab 03/25/22 04:40 03/25/22 04:40 Most recent lab results ABG pH 7.255 pH Units (7.350-7.450) L 03/25/22 04:25 ABG pCO2 41.5 mm Hg 03/25/22 04:25 ABG pO2 65.1 mm Hg (80.0-90.0) L 03/25/22 04:25 ABG HCO3 18.0 mmol/L (20.0-26.0) L 03/25/22 04:25 ABG O2 Saturation 89.7 % (95.0-99.0) L 03/25/22 04:25 Calcium 7.8 mg/dL (8.4-10.2) L 03/25/22 04:40 Phosphorus 3.70 mg/dL (2.5-4.5) 03/18/22 05:20 Magnesium 2.00 mg/dL (1.7-2.3) 03/18/22 05:20 Urine Creatinine 34.4 mg/dL (0.1-20.0) H 03/19/22 14:40 Urine Sodium 18 mmol/L 03/19/22 14:40 Medications & Allergies - Medications Allergies/Adverse Reactions: Allergies Penicillins Allergy (Mild, Verified 01/11/19 12:20) Rash . Home Medications: Home Medications Medication Instructions Recorded Confirmed Last Taken Type Ciprofloxacin HCl [Ciprofloxacin 500 mg PO Q12H #14 tab 01/11/19 Unknown Rx TAB] levETIRAcetam [Keppra TAB] 500 mg PO BID #60 tablet 01/11/19 Unknown Rx Active Medications: Generic Name Dose Route Start Last Admin Trade Name Freq PRN Reason Stop Dose Admin Acetaminophen 650 mg 03/13/22 05:50 03/19/22 18:38 Acetaminophen 325 Mg/10.15 Ml Oral Liqd Unit Dose FEEDTUBE 650 mg Q6H PRN Administration Non Cardiac Pain or Temp>100.5 Bisacodyl 10 mg 03/15/22 10:00 Bisacodyl 5 Mg Tab PO QDAY PRN Constipation Famotidine 10 mg 03/22/22 10:00 03/25/22 09:37 Famotidine 10 Mg Tab FEEDTUBE 10 mg BID SHAHBAZ Administration Fentanyl 50 mcg 03/10/22 10:58 03/14/22 20:48 Fentanyl 100 Mcg/2 Ml Inj IV 50 mcg Q10MIN PRN Administration ANALGESIA Hydrophilic Ointment 1 applic 03/10/22 11:03 Lip Therapy Vaseline TP Q2HR PRN Dry Lips Fentanyl Citrate 2,000 mcg in 100 mls @ 4.16 mls/hr 03/10/22 11:00 03/25/22 00:57 Fentanyl Drip Premix IV 3 mcg/kg/hr TITR SHAHBAZ 12.48 mls/hr Titration Protocol 1 MCG/KG/HR NORepinephrine/NS 8 MG-250 ML 8 mg in 250 mls @ 3.75 mls/hr 03/10/22 11:00 03/25/22 10:35 Norepinephrine/Ns 8 Mg-250 Ml (Double Conc) IV 20 mcg/min TITRATE SHAHBAZ 37.5 mls/hr Titration Protocol 2 MCG/MIN Vasopressin 20 unit/ Sodium 101 mls @ 9.09 mls/hr 03/21/22 15:00 03/25/22 09:34 Chloride IV 0.03 units/min TITR SHAHBAZ 9.09 mls/hr Administration Protocol 0.03 UNITS/MIN Levofloxacin/Dextrose 750 mg in 150 mls @ 100 mls/hr 03/23/22 12:00 03/23/22 12:32 Levaquin 750mg/150ml IV 03/27/22 13:29 100 mls/hr Q48H SHAHBAZ Administration Protocol Heparin Sodium/Sodium Chloride 25,000 unit in 500 mls @ 24 mls/hr 03/22/22 09:00 03/25/22 09:35 Heparin/ 0.45% Nacl-25,000 Unit/500 Ml IV 1,000 units/hr TITR SHAHBAZ 20 mls/hr Administration Protocol 1,200 UNITS/HR Metronidazole 500 mg in 100 mls @ 100 mls/hr 03/22/22 09:00 03/25/22 08:17 Flagyl 500 Mg/100 Ml IV 100 mls/hr Q8H SHAHBAZ Administration Protocol Meropenem/Sodium Chloride 1 gram in 100 mls @ 100 mls/hr 03/23/22 11:00 03/24/22 22:36 Merrem/Ns 1 Gram/100 Ml IV 100 mls/hr Q12H SHAHBAZ Administration Protocol Sodium Bicarbonate 150 meq/ 1,150 mls @ 50 mls/hr 03/24/22 05:11 03/24/22 05:30 Dextrose IV 50 mls/hr DIRECT SHAHBAZ Administration Levetiracetam 500 mg 03/12/22 10:00 03/25/22 09:37 Levetiracetam 500 Mg/5 Ml Oral Liqd FEEDTUBE 500 mg BID SHAHBAZ Administration Magnesium Hydroxide 30 ml 03/10/22 02:56 Magnesium Hydroxide (Mom) Oral Liqd Udc PO Q4H PRN Constipation Midodrine 15 mg 03/21/22 16:00 03/25/22 08:17 Midodrine 5 Mg Tab PO 15 mg TID@0800,1200,1600 SHAHBAZ Administration Multi-Ingred Cream/Lotion/Oil/Oint 1 applic 03/10/22 11:03 Mineral Oil/Petrolatum, White Ophth Oint 3.5 Gm OU Q4HR PRN Dry Eye(s) Ondansetron HCl 4 mg 03/10/22 02:56 Ondansetron 4 Mg/2 Ml Inj IV Q8H PRN Nausea And Vomiting Scopolamine 1 each 03/21/22 10:00 03/24/22 11:05 Scopolamine Transdermal Patch 72 Hr TD 1 each Q3D SHAHBAZ Administration Sodium Chloride 10 ml 03/10/22 10:00 03/24/22 22:36 Sodium Chloride 0.9% 10 Ml Flush Syringe IV 10 ml BID SHAHBAZ Administration Sodium Chloride 10 ml 03/10/22 02:56 Sodium Chloride 0.9% 10 Ml Flush Syringe IV PRN PRN LINE FLUSH Vancomycin HCl 500 mg 03/22/22 12:00 03/25/22 05:31 Vancomycin 250 Mg/10 Ml Oral Liqd PO 500 mg Q6HR SHAHBAZ Administration Protocol
[2022-03-25] MEDS: MEROPENEM/NS 1 GRAM/100 ML 1 GRAM/100 ML BAG IV SCH ×2 (11:12→22:46)
--- NOTE | 2022-03-25 11:19 | Progress Note ---
Assessment and Plan Assessment and plan: This is a 61-year-old female with known past medical history of Multiple Sclerosis and seizure disorder admitted for sepsis, Hyponatremia, and acute hypoxic respiratory failure requiring ventilatory support Hospital Course to Date: 03/10: S/p intubation this am due to tachypnea and worsen mental status. Current sedated and stable on the vent. Patient is now on low dose Levophed gtt due to hypotension. Presented with a Na level of 119, on continuous NS at 125ml, repeat BMP pending. Continue IVF hydration and serial Na Q6hrs. Nephrology is also following. Continue empiric IV Abx for CAP, COVID PCR pending, ID consult pending. D-Dimer also elevated, BLE doppler ordered, therapeutic Lovenox initiated. D/W CCM patient is too unstable for transport at this time, possible CTA chest in the am or once patient is more stable. Cardiology was also consulted for elevated troponin X2, EKG noted with no significant ST changes, 2D echo pending. Resume home AEDs, continue seizure precautions. Monitor and replace electrolytes as needed 03/11: Intubated and low dose fentanyl gtt. Open eyes spontaneously but does not track, not following commands. NA level 132 this am, Nabcarb gtt initiated per Nephro. CT head/brain w/o con ordered to r/o intracranial abnormality. Wean off sedation to better assess mental status. Remains on Levophed gtt, afebrile, but with leukocytosis this am. This am CXR and ABG noted, with significant improvement. D/w CCM, PE less likely will hold off on CTA chest for now. Lovenox switched to Qday. Continue empiric IV Abx, ID consult pending. 03/12: Discontinue bicarb gtt, replete phos and potassium, added miralax. Remain on levo and fent gtt 03/13: MRI brain/C-spine completed, EEG completed. Hyponatremia improved, patient remains on Levophed. Had a temperature of 101.3 remains on cefepime. Will defer to ID for abx. Will reculture on next temperature spike. 03/14: Overnight patient had hypoxia issues and FiO2 was increased to 100%, received lasix with repeat dose in AM. Hypotension and increase in levophed. Replete K. 03/15: hypoxia overnight and currently on 100%. RN attempted to lay flat and patient desatted to 88%. Will attempt again later today. Given lasix again. Hopeful to be able to have MRI today. Type and screen today for downtrending h/h, Wean FiO2 as tolerated, repelted phos with sodium phos. 03/16: hypoxic, fio2: 80%, desats on positional movements. Remains on levophed gtt, attempting to wean off. Remains too unstable for MRI brain. May benefit from steroids if altered mentation believed to be from MS flare. 03/17: Hypoxic overnight. FIO2 increased to 95%. Continue icu level supportive care with vent, levophed Gtt, merrem. Hgb 6.6 this AM, ordered 1 unit prbc. 03/18: WBC uptrending, persisting fevers. will re-culture with urine cx, sputum cx and bcx. Overall poor prognosis. Will attempt GOK discussion with family. 03/19: With persistent episodes of hypoxia overnight and this am. On 65% Fio2 and peep of 14 this am. Fevers improved, but leukocytosis worsen this am. Repeat cultures pending, continue current IV Abx per ID. Patient remains on Levophed gtt. X1 dose of kayexalate this am for hyperkalemia, worsening azotemia also noted, Nephrology is also following. Overall poor prognosis, possible GOC discussion with patient's son sometimes this week. 03/20: Up to 80% Fio2 and peep of 14 this am, still with periods of hypoxia with mild stimuli/movement. Severe generalized edema today with worsening CXR. Azot emia worsen s/p bcarb gtt. D/w Nephro, X1 dose of IV lasix and 25% Albumin given and Midodrine TID added. Overal poor prognosis. Possible GOC discussion with patient's son sometimes this week. 03/21: Mentation unchanged, remains on high vent settings. Patient did not respond to IV lasix yesterday, only 415ml UOP in the last 24hrs. Renal function worsen this am with hyperkalemia, X1 dose of kayexalate ordered. Nephrology is also following. Continue to monitor renal function and electrolytes. Possible phone conference today with son by the attending. Very poor prognosis. 03/22: Remains on high vent setting, respiratory acidosis noted from recent ABG. Vent settings adjusted by [facility]. Repeat ABG pending. With worsening renal function this am, additional Kayexalate given. Sudheer in WBCs this am despite IV Abx, now on 2 pressors, recent cultures with no growth to date. Flagyl and PO Vanco initiated empirically, C.Diff PCR pending. ID is also following. Heparin gtt also initiated per CCM, c/f for possible pulmonary shunting. Thorough discussion with patient's son and the attending yesterday in regards to patient's condition, overall poor prognosis, and goal of care. Patient's son wants all ag gressive treatment and measures including trach and PEG at this time. Patient remains a FULL code status. 03/23: Condition is unchanged. Febrile this am with worsen leukocytosis. Back on merem, now on IV and PO vanco, Levaquin, and flagyl per ID. C.Diff PCR pending. ID recommendation noted. D/w CCM, plan for CT chest/Abd/Pelvis today. 03/24: Continue to decompensated, at 100% Fio2 and 14 of PEEP this am. Patient too unstable for transport due to worsening hypotension, now on Bicarb gtt. Remain on Levophed gtt and heparin gtts. C.diff PCR came back positive. Leukmoid jaden ction with thromocytosis noted, patient remains on IV Abx & PO vanco per ID. Renal function continue to decline, D/w Nephrology patient is too unstable for HD at this time due to high pressor requirement. Very poor prognosis. 03/25: Remains on high vent settings with tachypneia and unsynchronized with the vent this morning. Sedation held overnight due to worsen hypotension, now back on 2 pressors and still on a bcarb gtt. Resume sedation for vent synchony and tachypnea. CT scan cancelled patient too unstable for transport. Only 50cc of UOP overnight, renal function is worsening. Patient is too unstable for HD per Nephro. Phone conference with patient's son and daughter-in law and CCM yesterd ay. Thorough discussion in regards to patient's worsening condition and very poor prognosis. GOC discussion was readdressed. They verbalized understanding of the info provided and voiced that the will contact us back with their final decision. Patient remains a FULL code status at this time Assessment and Plan #Acute Hypoxemic Respiratory Failure #ARDS #Multifocal Pneumonia/CAP #C/f Pulmonary Shunting - Brought in from home by EMS due to SOB and difficulty breathing - SPO2 was in the 50s on RA, placed on CPAP. Then Bipap in the ED - Chest x-ray was concerning for multifocal pneumonia. - Patient intubated on 03/10 due to tachypnea and worsen mental - Now in ARDS, frequent desaturations and hypoxia overnight and this am - Vent setting: PRVC-85%,14,30, 400 - This am ABG noted - s/p X1 dose of Iv lasix with 25% Albumin administered - CCM consulted, appreciate recommendations - C/f pulmo shunting, Heparin gtt initiated - Continue empiric IV Abx - VAP bundle addressed - Aspiration precaution HOB above 30 - Daily SBT and SAT trials as tolerated - Daily ABG and CXR - Continue SPO2 monitoring for SPO2 goal above 92% #Hypotension 2/2 #Septic Shock #NSTEMI/Elevated Troponin #Elevated BNP - Presented with hypotension now on low dose pressors-Levophed - Positive troponin X2, EKG noted with no significant ST changed - BNP 27203 on admit - Remains on pressors, now on Bicarb gtt - Midodrine added TID - 2D Echo LVEF 50%, no pulmonary HTN. See report for details - With generalized pitting edema, s/p IV lasix X3days - s/p X1 dose of IV lasix with 25% Albumin given - Cardiology consulted, appreciated recommendations - Continue blood pressure monitor per protocol - Titrate pressor to maintain MAP above 65 - VTE phroph-Heparin gtt per protocol #Acute Kidney Injury(TANIYA) most likely ATN #Azotemia #Severe Hyponatremia- improved #Hypokalemia-resolved - Presented with a Na level of 119, Probably due to dehydration - Renal function continue to worsen, most likely due to hypo perfusion/hypotension - S/p IVF hydrationa and Bicarb gtt - S/p X3 dose of IV lasix, additional Lasix given yesterday- Unresponsive - Now oliguric. Only 50 cc UOP overnight - Nephrology consulted, appreciate recommendations - Patient is too unstable for iHD at this time due to high pressor requirements - Strict intake and output - Avoid nephrotoxic medications - Monitor and replace electrolytes as needed #Septic Shock #Multifocal Pneumonia/CAP #Leukocytosis #Diarrhea #Lactic Acidosis-resolved - Brought in from home by EMS due to SOB and difficulty breathing, Hypotensive, with elevated lactic acid, WBCs wnr - Chest x-ray was concerning for multifocal pneumonia - COVID PCR negative - UA with elevated Wbcs - urine and blood cultures with NGTD - CRP unremarkable, procal noted - Repeat Cultures with NGTD - ID consulted, appreciate recommendations - Worsening leukocytosis this am, now on 2 pressors - With frequent loose stools, however, patient did received X2 days of kayexalate for hyperkalemia - Completed Meropenem course - Back on merem, now on IV and PO vanco, Levaquin, and flagyl - PO Vanco and flagyl initiated, C.Diff PCR Positive - F/U on cultures - Continue to CBC - CT chest/Abd/Pelvis unable to obtain, patient too unstable for transport #Acute Metabolic Encephalopathy #H/o Multiple Sclerosis and Seizure Disorder - Intubated and sedated, on fentanyl gtt - CT head shows vascular angioplasty without clear evidence of acute i ntracranial hemorrhage - MRI brain with and without contrast and MRI C-spine with and without contrast pending, patient is too unstable for transportation - EEG considered abnormal and is compatible with diffuse encephalopathy of perhaps significant brain sedation or neuro active medication or daily combination of both. Absence of epileptiform abnormality but would not rule out possibility of epilepsy - UDS (+) for opiates - Resumed home Keppra - Neurology consulted, appreciate recommendations - Avoid benzodiazepine to reduce the possibility of delirium - Titrate sedation for RASS goal 0 to -1 - PRN Analgesia for CPOT greater than 3 - Maintenance of sleep-wake cycle - Seizure precaution #Elevated D-Dimer - COVID PCR negative - BLE Doppler negative DVT - on heparin gtt #Moderate Protein Calorie Malnutrition - DHT inserted - Initiated enteral nutrition - Nutrition consulted #GI/DVT Prophylaxis - PPI- Pepcid - Heparin gtt - SCDs to bilateral lower extremities while in bed #Advance Care Planning - Disease education data, care plan, diagnoses, and prognosis discussed with patient's son Homar Bailey #[phone]. All questions and concerns were addressed at this time. Patient's son acknowledged understanding and agreement with current care plan. Patient is a FULL code. - 03/21- Thorough discussion with patient's son and the attending yesterday in regards to patient's condition, overall poor prognosis, and goal of care. Patient's son wants all aggressive treatment and measures including trach and PEG at this time. Patient remains a FULL code status. - 03/24- Phone conference with patient's son and daughter-in law and [facility] ye sterday. Thorough discussion in regards to patient's worsening condition and very poor prognosis. C discussion was readdressed. They verbalized understanding of the info provided and voiced that the will contact us back with their final decision. Patient remains a FULL code status The high probability of a clinically significant, sudden or life threatening deterioration of the [multiple] system(s) required my full and direct attention, intervention and personal management. The aggregate critical care time was [60] minutes. This time is in addition to time spent performing reported procedures but includes the following: [x] Data Review and interpretation [x] Patient assessment and monitoring of vital signs [x] Documentation [x] Medication orders and management Disposition Plan: ICU Total Time Spent with Patient (Minutes): 60 History Interval history: Patient seen and examined at the bedside. Remains on the vent, off sedations overnight due to worsening hypotension. Remains on high vent settings with tachypnea and vent unsynchrony. Remains on heparin and Bicarb gtt, now on 2 pressors-Levo and Vaso. Only 50 urine output in last 12hrs, medina is patent. Hospitalist Physical - Constitutional Vitals: Temp Pulse Resp BP Pulse Ox 97.6 F 84 21 109/73 90 03/25/22 07:08 03/25/22 10:30 03/25/22 10:30 03/25/22 10:30 03/25/22 10:30 General appearance: Present: no acute distress, other (Intubated and Sedated) - EENT Eyes: Present: PERRL - Respiratory Respiratory effort: labored, accessory muscle use, other (Tachypnea) Respiratory: bilateral: rales, rhonchi, wheezing - Cardiovascular Rhythm: regular Heart Sounds: Present: S1 & S2 - Extremities Extremities: no ischemia, pulses intact, pulses symmetrical Extremity abnormal: edema - Peripheral Assessment Generalized Edema Type: Pitting Edema Degree: 4+ Capillary Refill: < 3 seconds Skin Temperature: Warm Peripheral Pulses: within normal limits - Abdominal General gastrointestinal: soft, non-distended, normal bowel sounds - Integumentary Integumentary: Present: warm, dry, erythema - Psychiatric Psychiatric: other (Intubated and Sedated) - Neurologic Neurologic: other (Intubated and Sedated) - Allied Health Allied health notes reviewed: nursing, case management HEART Score - HEART Score Troponin: Troponin T 0.032 ng/mL (0.00-0.029) H D 03/10/22 12:24 Results - Labs CBC & Chem 7: 03/25/22 04:40 03/25/22 04:40 Labs: Laboratory Last Values WBC 49.1 K/mm3 (4.5-11.0) H* 03/25/22 04:40 RBC 2.60 M/mm3 (3.65-5.03) L 03/25/22 04:40 Hgb 7.4 gm/dl (10.1-14.3) L 03/25/22 04:40 Hct 23.1 % (30.3-42.9) L 03/25/22 04:40 MCV 89 fl (79-97) 03/25/22 04:40 MCH 28 pg (28-32) 03/25/22 04:40 MCHC 32 % (30-34) 03/25/22 04:40 RDW 17.5 % (13.2-15.2) H 03/25/22 04:40 Plt Count 630 K/mm3 (140-440) H 03/25/22 04:40 Lymph % (Auto) 8.9 % (13.4-35.0) L 03/11/22 05:00 [place] % (Auto) 4.2 % (0.0-7.3) 03/11/22 05:00 Eos % (Auto) 0.1 % (0.0-4.3) 03/11/22 05:00 Baso % (Auto) 0.2 % (0.0-1.8) 03/11/22 05:00 Lymph # (Auto) 1.2 K/mm3 (1.2-5.4) 03/11/22 05:00 [place] # (Auto) 0.6 K/mm3 (0.0-0.8) 03/11/22 05:00 Eos # (Auto) 0.0 K/mm3 (0.0-0.4) 03/11/22 05:00 Baso # (Auto) 0.0 K/mm3 (0.0-0.1) 03/11/22 05:00 Add Manual Diff Complete 03/24/22 09:23 Total Counted 100 03/24/22 09:23 Seg Neutrophils % 86.6 % (40.0-70.0) H 03/11/22 05:00 Seg Neuts % (Manual) 82.0 % (40.0-70.0) H 03/24/22 09:23 Band Neutrophils % 0 % 03/24/22 09:23 Lymphocytes % (Manual) 6.0 % (13.4-35.0) L 03/24/22 09:23 Reactive Lymphs % (Man) 0 % 03/24/22 09:23 Monocytes % (Manual) 3.0 % (0.0-7.3) 03/24/22 09:23 Eosinophils % (Manual) 1.0 % (0.0-4.3) 03/24/22 09: Basophils % (Manual) 0 % (0.0-1.8) 03/24/22 09:23 Metamyelocytes % 3.0 % 03/24/22 09:23 Myelocytes % 5.0 % 03/24/22 09:23 Promyelocytes % 0 % 03/24/22 09:23 Blast Cells % 0 % 03/24/22 09:23 Nucleated RBC % 4.0 % (0.0-0.9) H 03/24/22 09:23 Seg Neutrophils # 11.8 K/mm3 (1.8-7.7) H 03/11/22 05:00 Seg Neutrophils # Man 38.9 K/mm3 (1.8-7.7) H 03/24/22 09:23 Band Neutrophils # 0.0 K/mm3 03/24/22 09:23 Lymphocytes # (Manual) 2.8 K/mm3 (1.2-5.4) 03/24/22 09:23 Abs React Lymphs (Man) 0.0 K/mm3 03/24/22 09:23 Monocytes # (Manual) 1.4 K/mm3 (0.0-0.8) H 03/24/22 09:23 Eosinophils # (Manual) 0.5 K/mm3 (0.0-0.4) H 03/24/22 09:23 Basophils # (Manual) 0.0 K/mm3 (0.0-0.1) 03/24/22 09:23 Metamyelocytes # 1.4 K/mm3 03/24/22 09:23 Myelocytes # 2.4 K/mm3 03/24/22 09:23 Promyelocytes # 0.0 K/mm3 03/24/22 09:23 Blast Cells # 0.0 K/mm3 03/24/22 09:23 WBC Morphology Not Reportable 03/24/22 09:23 WBC Morphology TNR 03/24/22 09:23 Hypersegmented Neuts Not Reportable 03/24/22 09:23 Hyposegmented Neuts Not Reportable 03/24/22 09:23 Hypogranular Neuts Not Reportable 03/24/22 09:23 Smudge Cells Not Reportable 03/24/22 09:23 Toxic Granulation Not Reportable 03/24/22 09:23 Toxic Vacuolation Not Reportable 03/24/22 09:23 Dohle Bodies Not Reportable 03/24/22 09:23 Pelger-Huet Anomaly Not Reportable 03/24/22 09:23 Luis Rods Not Reportable 03/24/22 09:23 Platelet Estimate Consistent w auto 03/24/22 09:23 Clumped Platelets Not Reportable 03/24/22 09:23 Plt Clumps, EDTA Not Reportable 03/24/22 09:23 Large Platelets Not Reportable 03/24/22 09:23 Giant Platelets Few 03/24/22 09:23 Platelet Satelliting Not Reportable 03/24/22 09:23 Plt Morphology Comment Not Reportable 03/24/22 09:23 RBC Morphology Not Reportable 03/24/22 09:23 Dimorphic RBCs Not Reportable 03/24/22 09:23 Polychromasia Few 03/24/22 09:23 Hypochromasia Not Reportable 03/24/22 09:23 Poikilocytosis Not Reportable 03/24/22 09:23 Anisocytosis Not Reportable 03/24/22 09:23 Microcytosis Not Reportable 03/24/22 09:23 Macrocytosis Not Reportable 03/24/22 09:23 Spherocytes Not Reportable 03/24/22 09:23 Pappenheimer Bodies Not Reportable 03/24/22 09:23 Sickle Cells Not Reportable 03/24/22 09:23 Target Cells Few 03/24/22 09:23 Tear Drop Cells Few 03/24/22 09:23 Ovalocytes Few 03/24/22 09:23 Helmet Cells Not Reportable 03/24/22 09:23 Nevarez-Aurora Bodies Not Reportable 03/24/22 09:23 [place] Rings Not Reportable 03/24/22 09:23 Rudy Cells Few 03/24/22 09:23 Bite Cells Not Reportable 03/24/22 09:23 Crenated Cell Not Reportable 03/24/22 09:23 Elliptocytes Not Reportable 03/24/22 09:23 Acanthocytes (Spur) Not Reportable 03/24/22 09:23 Rouleaux Not Reportable 03/24/22 09:23 Hemoglobin C Crystals Not Reportable 03/24/22 09:23 Schistocytes Rare 03/24/22 09:23 Malaria parasites Not Reportable 03/24/22 09:23 Tani Bodies Not Reportable 03/24/22 09:23 Hem Pathologist Commnt No 03/24/22 09:23 PT 17.2 Sec. (12.2-14.9) H 03/22/22 09:30 INR 1.25 (0.87-1.13) H 03/22/22 09:30 APTT 33.4 Sec. (24.2-36.6) 03/22/22 09:30 D-Dimer 787.78 ng/mlDDU (0-234) H 03/10/22 05:45 Heparin Anti-Xa Level 0.22 U.I./ml (0.3-0.7) L 03/25/22 04:40 ABG pH 7.255 pH Units (7.350-7.450) L 03/25/22 04:25 ABG pCO2 41.5 mm Hg 03/25/22 04:25 ABG pO2 65.1 mm Hg (80.0-90.0) L 03/25/22 04:25 ABG HCO3 18.0 mmol/L (20.0-26.0) L 03/25/22 04:25 ABG O2 Saturation 89.7 % (95.0-99.0) L 03/25/22 04:25 ABG O2 Content 8.9 (0.0-44) 03/25/22 04:25 ABG Base Excess -8.5 mmol/L (-2.0-3.0) L 03/25/22 04:25 ABG Hemoglobin 7.2 gm/dl (12.0-16.0) L 03/25/22 04:25 ABG Carboxyhemoglobin 2.1 % (0.0-5.0) 03/25/22 04:25 ABG Methemoglobin 0.5 % (0.0-1.5) 03/25/22 04:25 Oxyhemoglobin 87.4 % (95.0-99.0) L 03/25/22 04:25 FiO2 80 % 03/25/22 04:25 Sodium 136 mmol/L (137-145) L 03/25/22 04:40 Potassium 5.3 mmol/L (3.6-5.0) H 03/25/22 04:40 Chloride 95.7 mmol/L (98-107) L 03/25/22 04:40 Carbon Dioxide 18 mmol/L (22-30) L 03/25/22 04:40 Anion Gap 28 mmol/L 03/25/22 04:40 BUN 135 mg/dL (7-17) H 03/25/22 04:40 Creatinine 2.2 mg/dL (0.6-1.2) H 03/25/22 04:40 Estimated GFR 23 ml/min 03/25/22 04:40 BUN/Creatinine Ratio 61 % 03/25/22 04:40 Glucose 121 mg/dL (65-100) H 03/25/22 04:40 POC Glucose 123 mg/dL (70-105) H 03/25/22 11:12 Osmolality 285 Mosm/kg 03/10/22 12:24 Lactic Acid 0.90 mmol/L (0.7-2.0) 03/18/22 05:20 Uric Acid 1.6 mg/dL (3.5-7.6) L 03/10/22 13:15 Calcium 7.8 mg/dL (8.4-10.2) L 03/25/22 04:40 Phosphorus 3.70 mg/dL (2.5-4.5) 03/18/22 05:20 Magnesium 2.00 mg/dL (1.7-2.3) 03/18/22 05:20 Ferritin 219.2 ng/mL (10.0-200.0) H 03/10/22 05:45 Total Bilirubin 0.30 mg/dL (0.1-1.2) 03/18/22 05:20 AST 39 units/L (5-40) 03/18/22 05:20 ALT 14 units/L (7-56) 03/18/22 05:20 Alkaline Phosphatase 119 units/L (35-129) 03/18/22 05:20 Lactate Dehydrogenase 210 units/L (91-180) H 03/10/22 05:45 Total Creatine Kinase 901 units/L (30-135) H 03/10/22 12:24 CK-MB (CK-2) 15.3 ng/mL (0.0-4.0) H 03/10/22 12:24 CK-MB (CK-2) Rel Index 1.6 (0-4) 03/10/22 12:24 Troponin T 0.032 ng/mL (0.00-0.029) H D 03/10/22 12:24 C-Reactive Protein < 0.03 mg/dL (0.00-1.30) 03/10/22 05:45 NT-Pro-B Natriuret Pep 24231 pg/mL (0-900) H 03/10/22 01:25 Total Protein 5.4 g/dL (6.3-8.2) L 03/18/22 05:20 Albumin 2.0 g/dL (3.9-5) L 03/18/22 05:20 Albumin/Globulin Ratio 0.6 % 03/18/22 05:20 Prealbumin 0.044 g/L (0.200-0.400) L 03/12/22 18:40 Triglycerides 47 mg/dL (2-149) 03/10/22 01:25 Cholesterol 259 mg/dL (50-199) H 03/10/22 01:25 LDL Cholesterol Direct 187 mg/dL (50-130) H 03/10/22 01:25 HDL Cholesterol 63 mg/dL (40-59) H 03/10/22 01:25 Cholesterol/HDL Ratio 4.11 % 03/10/22 01:25 Lipase 15 units/L (13-60) 03/10/22 01:25 Vitamin B1 28 nmol/L (8-30) 03/13/22 08:00 Vitamin B12 1021 pg/mL (211-911) H 03/12/22 18:40 Folate 2.15 ng/mL (7.3-26.0) L 03/12/22 18:40 Procalcitonin 3.92 ng/mL (<0.15) 03/10/22 05:45 TSH 1.290 mlU/mL (0.270-4.200) 03/12/22 18:40 Urine Color Yellow (Yellow) 03/10/22 18:20 Urine Turbidity Clear (Clear) 03/10/22 18:20 Urine pH 6.0 (5.0-7.0) 03/10/22 18:20 Ur Specific [place] 1.010 (1.003-1.030) 03/10/22 18:20 Urine Protein <15 mg/dl mg/dL (Negative) 03/10/22 18:20 Urine Glucose (UA) Neg mg/dL (Negative) 03/10/22 18:20 Urine Ketones Tr mg/dL (Negative) 03/10/22 18:20 Urine Blood Sm (Negative) 03/10/22 18:20 Urine Nitrite Neg (Negative) 03/10/22 18:20 Urine Bilirubin Neg (Negative) 03/10/22 18:20 Urine Urobilinogen < 2.0 mg/dL (<2.0) 03/10/22 18:20 Ur Leukocyte Esterase Lg (Negative) 03/10/22 18:20 Urine WBC (Auto) 105.0 /HPF (0.0-6.0) H 03/10/22 18:20 Urine RBC (Auto) 2.0 /HPF (0.0-6.0) 03/10/22 18:20 U Epithel Cells (Auto) < 1.0 /HPF (0-13.0) 03/10/22 18:20 Urine Bacteria (Auto) 1+ /HPF (Negative) 03/10/22 18:20 Urine Osmolality 368 Mosm/kg 03/10/22 18:20 Urine Creatinine 34.4 mg/dL (0.1-20.0) H 03/19/22 14:40 Urine Sodium 18 mmol/L 03/19/22 14:40 Random Vancomycin 30.1 ug/mL (0-40.0) 03/25/22 04:40 Urine Opiates Screen Presumptive positive 03/10/22 18:20 Urine Methadone Screen Presumptive negative 03/10/22 18:20 Ur Barbiturates Screen Presumptive negative 03/10/22 18:20 Ur Phencyclidine Scrn Presumptive negative 03/10/22 18:20 Ur Amphetamines Screen Presumptive negative 03/10/22 18:20 U Benzodiazepines Scrn Presumptive negative 03/10/22 18:20 Urine Cocaine Screen Presumptive negative 03/10/22 18:20 U Marijuana (THC) Screen Presumptive negative 03/10/22 18:20 Drugs of Abuse Note Disclamer 03/10/22 18:20 Copper 118 mcg/dL (70-175) 03/12/22 18:40 Syphilis IgG/IgM Ab Nonreactive (NonReactive) 03/12/22 18:40 C. difficile Tox (PCR) Positive (Negative) 03/23/22 06:30 SARS-CoV-2 (PCR) Negative (Negative) 03/10/22 09:50 Blood Type O POSITIVE 03/15/22 09:42 Antibody Screen Negative 03/15/22 09:42 Crossmatch See Detail 03/15/22 09:42 Medina/IV: Voiding Method Indwelling Catheter Active Medications - Current Medications Current Medications: Generic Name Dose Route Start Last Admin Trade Name Freq PRN Reason Stop Dose Admin Acetaminophen 650 mg 03/13/22 05:50 03/19/22 18:38 Acetaminophen 325 Mg/10.15 Ml Oral Liqd Unit Dose FEEDTUBE 650 mg Q6H PRN Administration Non Cardiac Pain or Temp>100.5 Bisacodyl 10 mg 03/15/22 10:00 Bisacodyl 5 Mg Tab PO QDAY PRN Constipation Famotidine 10 mg 03/22/22 10:00 03/25/22 09:37 Famotidine 10 Mg Tab FEEDTUBE 10 mg BID SHAHBAZ Administration Fentanyl 50 mcg 03/10/22 10:58 03/14/22 20:48 Fentanyl 100 Mcg/2 Ml Inj IV 50 mcg Q10MIN PRN Administration ANALGESIA Hydrophilic Ointment 1 applic 03/10/22 11:03 Lip Therapy Vaseline TP Q2HR PRN Dry Lips Fentanyl Citrate 2,000 mcg in 100 mls @ 4.16 mls/hr 03/10/22 11:00 03/25/22 00:57 Fentanyl Drip Premix IV 3 mcg/kg/hr TITR SHAHBAZ 12.48 mls/hr Titration Protocol 1 MCG/KG/HR NORepinephrine/NS 8 MG-250 ML 8 mg in 250 mls @ 3.75 mls/hr 03/10/22 11:00 03/25/22 10:35 Norepinephrine/Ns 8 Mg-250 Ml (Double Conc) IV 20 mcg/min TITRATE SHAHBAZ 37.5 mls/hr Titration Protocol 2 MCG/MIN Vasopressin 20 unit/ Sodium 101 mls @ 9.09 mls/hr 03/21/22 15:00 03/25/22 09:34 Chloride IV 0.03 units/min TITR SHAHBAZ 9.09 mls/hr Administration Protocol 0.03 UNITS/MIN Levofloxacin/Dextrose 750 mg in 150 mls @ 100 mls/hr 03/23/22 12:00 03/23/22 12:32 Levaquin 750mg/150ml IV 03/27/22 13:29 100 mls/hr Q48H SHAHBAZ Administration Protocol Heparin Sodium/Sodium Chloride 25,000 unit in 500 mls @ 24 mls/hr 03/22/22 09:00 03/25/22 09:35 Heparin/ 0.45% Nacl-25,000 Unit/500 Ml IV 1,000 units/hr TITR SHAHBAZ 20 mls/hr Administration Protocol 1,200 UNITS/HR Metronidazole 500 mg in 100 mls @ 100 mls/hr 03/22/22 09:00 03/25/22 08:17 Flagyl 500 Mg/100 Ml IV 100 mls/hr Q8H SHAHBAZ Administration Protocol Meropenem/Sodium Chloride 1 gram in 100 mls @ 100 mls/hr 03/23/22 11:00 03/25/22 11:12 Merrem/Ns 1 Gram/100 Ml IV 100 mls/hr Q12H SHAHBZA Administration Protocol Sodium Bicarbonate 150 meq/ 1,150 mls @ 50 mls/hr 03/24/22 05:11 03/24/22 05:30 Dextrose IV 50 mls/hr DIRECT SHAHBAZ Administration Levetiracetam 500 mg 03/12/22 10:00 03/25/22 09:37 Levetiracetam 500 Mg/5 Ml Oral Liqd FEEDTUBE 500 mg BID SHAHBAZ Administration Magnesium Hydroxide 30 ml 03/10/22 02:56 Magnesium Hydroxide (Mom) Oral Liqd Udc PO Q4H PRN Constipation Midodrine 15 mg 03/21/22 16:00 03/25/22 11:10 Midodrine 5 Mg Tab PO 15 mg TID@0800,1200,1600 SHAHBAZ Administration Multi-Ingred Cream/Lotion/Oil/Oint 1 applic 03/10/22 11:03 Mineral Oil/Petrolatum, White Ophth Oint 3.5 Gm OU Q4HR PRN Dry Eye(s) Ondansetron HCl 4 mg 03/10/22 02:56 Ondansetron 4 Mg/2 Ml Inj IV Q8H PRN Nausea And Vomiting Scopolamine 1 each 03/21/22 10:00 03/24/22 11:05 Scopolamine Transdermal Patch 72 Hr TD 1 each Q3D SHAHBAZ Administration Sodium Chloride 10 ml 03/10/22 10:00 03/24/22 22:36 Sodium Chloride 0.9% 10 Ml Flush Syringe IV 10 ml BID SHAHBAZ Administration Sodium Chloride 10 ml 03/10/22 02:56 Sodium Chloride 0.9% 10 Ml Flush Syringe IV PRN PRN LINE FLUSH Vancomycin HCl 500 mg 03/22/22 12:00 03/25/22 11:10 Vancomycin 250 Mg/10 Ml Oral Liqd PO 500 mg Q6HR SHAHBAZ Administration Protocol Nutrition/Malnutrition Assess - Dietary Evaluation Nutrition/Malnutrition Findings: Nutrition Notes Start: 03/10/22 12:22 Freq: Status: Active Protocol: Document 03/21/22 15:08 JOSH (Rec: 03/21/22 15:18 JOSH [id number]) Nutrition Notes Initial or Follow up Reassessment Current Diagnosis Hypertension,Respiratory Failure,Malnutrition Other Pertinent Diagnosis MS, CAP, Seizure, Metabolic Encephalopathy, Septic Shock, NSTEMI, UTI ... Current Diet TF-Vital AF 1.2 En @ 60 ml/hr (since D 03/10). Labs/Tests 03/21: Na 135, K 5.7, Cl 97.4, CO2 21, BUN 104, Crea 1.3, Glu 118. Pertinent Medications 03/21: Vasopressin 20U, others nutritionally unremarkable. Height 5 ft 6 in Weight 83.2 kg [place] Body Weight (kg) 59.09 BMI 29.6 Weight change and time frame No body weight change reported in 11 days. Weight Status Overweight Subjective/Other Information RD consult for routine F/U on TF tolerance/continuation. TF continues as prescribed, and well tolerated, according to RN notes. Pt remains on Mechanical Ventilation, O2 saturation @ 96%, according to Physical Assessment History notes. Pt presents bilateral-LE pitting edema 3+, according to Physical Assessment History notes. Pt presents an unspecified area of concern for skin risk at the time, according to Physical Assessment History notes. Percent of energy/protein needs met: Prescribed TF-Vital AF 1.2 En @ 60 ml/hr provides for energy/protein needs (1,728 Kcal/108 g) during LOS, 100% Kcal; 100% AA. Burn Absent Trauma Absent GI Symptoms None Food Allergy No Skin Integrity/Comment Unspecified area of concern. Current % PO Other Minimum of two criteria No Fluid Accumulation Moderate to Severe (severe) Reduced [employer] Strength N/A (non-severe) Protein-Calorie Malnutrition N\A #1 Nutrition Diagnosis Inadequate oral intake Diagnosis Progress(for reassessment Continues documentation) Is patient on ventilator? Yes Is Patient Ambulatory and/or Out of Bed No REE-([place]-[facility]or-confined to bed) 1713.168 [facility] Additional Notes Protein: 1-1.2 g/Kg ABW; 100- 166 g/day. Fluids: 1 ml/Kcal, or as per MD. Nutrition Intervention Nutrition Support: Continue TF-Vital AF 1.2 En @ 60 ml/hr. Flush: 100 ml water Q 4 hr, or as per MD. Kcal 1,728 Protein (gm) 108 Carbohydrates (gm) 159 Fat (gm) 78 Fluid (mL) 1,168 Fiber (gm) 7 % RDI: 100% Kcal; 100% AA. Goal #1 Provide at least 75% of energy /protein needs through Enteral Feeding during LOS. Follow-Up By: 03/28/22 Additional Comments Continue monitoring TF tolerance, Ventilation Status, Pressor support, and BM.
[2022-03-25] MEDS: fentaNYL DRIP Premix 2,000 MCG/100 ML BAG IV SCH ×2 (11:47→17:50)
--- NOTE | 2022-03-25 17:23 | Progress Note ---
Assessment and Plan This is a 61-year-old female with known past medical history of Multiple Sclerosis and seizure disorder admitted for sepsis, Hyponatremia, and acute hypoxic respiratory failure requiring ventilatory support Acute Hypoxemic Respiratory Failure, on MVS ARDS Septic shock -2 pressor with MODS Multifocal Pneumonia/CAP- possible aspiration TANIYA C.diff PCR positive Leukemoid reaction with thromocytosis NSTEMI/Elevated Troponin- probable type 2 ischemia Elevated BNP Acute Metabolic Encephalopathy H/o Seizure Disorder Elevated D-Dimer Moderate Protein Calorie Malnutrition Discussed with renal service, the option of HD remains too risky He will get in touch with the patient's family to discuss this Continue to monitor for bleeding, monitor hemoglobin closely while on heparin infusion Supportive transfusions as clinically indicated to keep HgB >7g/dL Contact isolation for C.diff -continue to titrate supplemental oxygen to keep SpO2 90-92% -VAP bundle addressed, aspiration precautions HOB >40 -continue lung protective strategies; ARDS net protocol -Bicarbonate fro pH <7.2 per ARDS net protocol -Adjusted minute ventilation, now on RR of 30 -continue bronchodilators with pulmonary hygiene per RT -Continue to titrate vasopressor support to keep MAP>65 -Continue Antibiotics per ID- on Vancomyin (po and IV), Meropenem, Levofloxacin, Metronidazole -Continue to trend temperature curve and WCC -CXR, ABG in am - continue accuchecks with glycemic control per SSI (While critically ill target blood glucose of 140-180 mg/dL; avoid hypoglycemia) - avoid nephrotoxins, renally dose all medications - continue to avoid benzodiazepines, reduce the possibility of delirium - prn analgesia per CPOT score - Maintenance of sleep-wake cycle, avoid delirium -Continue with enteric nutritional support - VTE prophylaxis- anticoagulation with therapeutic low intensity heparin -Stress ulcer prophylaxis- Famotidine - mobility, off loading and frequent turning per facility protocol to prevent pressure ulcers - Monitor hemodynamics closely - continue other care per attending / other consultants CONDITION: CRITICAL PROGNOSIS: GRAVE CODE STATUS: FULL The high probability of a clinically significant, sudden or life threatening deterioration of the [respiratory, cardiovascular, neurology,renal ] system(s) required my full and direct attention, intervention and personal management. The aggregate critical care time was [35 ] minutes. This time is in addition to time spent performing reported procedures but includes the following: [x] Data Review and interpretation [x] Patient assessment and monitoring of vital signs [x] Documentation [x] Medication orders and management Subjective Date of service: 03/25/22 Principal diagnosis: AHRF; Multifocal Pneumonia; Septic shock; NSTEMI; AMS; Seizures Interval history: follow up fro: Acute hypoxemic resp failure on MVS; Acute encephalopathy; Septic shock; Bilateral pneumonia-aspiration/CAP Severe hyponatremia Seen and examined. Vitals, labs, medications, chart reviewed. Discussed with nursing and respiratory care staff. Vent: ACVC-20/400/+14/ 100 On going episodes of desaturations overnight with increased FIO2, Worsening hypotension with increase in vasopressor support( currently on Levophed and Vasopressin), Bicarbonate infusion initiated overnight for metabolic acidosis Remains on Fentanyl Empiric heparin- low intensity Renal function continue to decline, anuric( 30ml of urine output in the last 24 hours) [place] catheter RIJ CVL Objective Vital Signs - 12hr 03/25/22 03/25/22 03/25/22 05:30 05:45 06:00 Temperature Pulse Rate 90 89 91 H Respiratory 25 H 22 29 H Rate Blood Pressure 102/69 101/69 100/73 O2 Sat by Pulse 94 97 97 Oximetry 03/25/22 03/25/22 03/25/22 06:15 06:30 06:45 Temperature Pulse Rate 89 89 89 Respiratory 23 22 23 Rate Blood Pressure 106/80 98/68 96/68 O2 Sat by Pulse 87 98 Oximetry 03/25/22 03/25/22 03/25/22 07:00 07:08 07:15 Temperature 97.6 F Pulse Rate 90 90 Respiratory 23 22 Rate Blood Pressure 106/68 106/66 O2 Sat by Pulse 97 96 Oximetry 03/25/22 03/25/22 03/25/22 07:30 07:45 07:57 Temperature Pulse Rate 92 H 89 90 Respiratory 26 H 26 H Rate Blood Pressure 108/69 107/70 O2 Sat by Pulse 93 97 Oximetry 03/25/22 03/25/22 03/25/22 07:59 08:00 08:15 Temperature Pulse Rate 91 H 86 Respiratory 29 H 25 H Rate Blood Pressure 106/69 106/35 O2 Sat by Pulse 98 93 100 Oximetry 03/25/22 03/25/22 03/25/22 08:30 08:45 09:00 Temperature Pulse Rate 85 87 86 Respiratory 26 H 28 H 28 H Rate Blood Pressure 98/67 108/72 104/74 O2 Sat by Pulse 97 96 95 Oximetry 03/25/22 03/25/22 03/25/22 09:15 09:30 09:45 Temperature Pulse Rate 91 H 86 84 Respiratory 23 28 H 25 H Rate Blood Pressure 102/73 100/68 101/72 O2 Sat by Pulse 100 94 91 Oximetry 03/25/22 03/25/22 03/25/22 10:00 10:15 10:30 Temperature Pulse Rate 85 83 84 Respiratory 28 H 28 H 21 Rate Blood Pressure 102/70 99/70 109/73 O2 Sat by Pulse 96 69 L 90 Oximetry 03/25/22 03/25/22 03/25/22 10:45 11:00 11:15 Temperature Pulse Rate 82 83 82 Respiratory 27 H 28 H 32 H Rate Blood Pressure 101/69 102/66 105/70 O2 Sat by Pulse 97 95 61 L Oximetry 03/25/22 03/25/22 03/25/22 11:30 11:45 12:00 Temperature Pulse Rate 78 81 81 Respiratory 13 19 30 H Rate Blood Pressure 97/60 91/64 91/64 O2 Sat by Pulse 85 98 98 Oximetry 03/25/22 03/25/22 03/25/22 12:15 12:20 12:30 Temperature 97.7 F Pulse Rate 82 83 Respiratory 30 H 31 H Rate Blood Pressure 97/64 90/61 O2 Sat by Pulse 80 L 79 L Oximetry 03/25/22 03/25/22 03/25/22 12:45 13:01 13:15 Temperature Pulse Rate 83 77 89 Respiratory 31 H 25 H 28 H Rate Blood Pressure 90/64 115/71 93/69 O2 Sat by Pulse 92 Oximetry 03/25/22 03/25/22 03/25/22 13:30 13:45 14:00 Temperature Pulse Rate 83 83 87 Respiratory 22 15 16 Rate Blood Pressure 95/61 91/60 82/61 O2 Sat by Pulse 97 97 Oximetry 03/25/22 03/25/22 03/25/22 14:15 14:30 14:45 Temperature Pulse Rate 80 81 81 Respiratory 17 18 17 Rate Blood Pressure 89/62 91/60 99/65 O2 Sat by Pulse 99 Oximetry 03/25/22 03/25/22 03/25/22 15:00 15:15 15:30 Temperature Pulse Rate 81 81 80 Respiratory 17 18 17 Rate Blood Pressure 106/67 100/68 95/60 O2 Sat by Pulse 96 96 Oximetry 03/25/22 03/25/22 03/25/22 15:37 15:45 15:59 Temperature Pulse Rate 77 76 78 Respiratory 15 Rate Blood Pressure 95/60 101/64 O2 Sat by Pulse 96 Oximetry 03/25/22 03/25/22 16:00 17:13 Temperature 98.0 F Pulse Rate 78 Respiratory 18 Rate Blood Pressure 98/64 O2 Sat by Pulse 98 Oximetry Constitutional: other (middle aged female with anasarca and mild dyssynchrony on MVS, intuabted) Eyes: non-icteric ENT: oropharynx moist, other (ETT 24 cm BLANCA) Neck: supple, no lymphadenopathy, no JVD Effort: mildly labored Ascultation: Bilateral: rales Percussion: Bilateral: not dull Cardiovascular: regular rate and rhythm, other (S1,S2) Gastrointestinal: normoactive bowel sounds, soft, non-tender Integumentary: other (edema with peeling skin) Extremities: no cyanosis, pulses normal, no ischemia or petechiae, edema (2+ and anasarca ) Neurologic: pupils equal and round, unable to assess Psychiatric: other (unable to assess re: AMS) CBC and BMP: 03/25/22 04:40 03/25/22 04:40 ABG, PT/INR, D-dimer: ABG ABG pH 7.255 pH Units (7.350-7.450) L 03/25/22 04:25 ABG pCO2 41.5 mm Hg 03/25/22 04:25 ABG pO2 65.1 mm Hg (80.0-90.0) L 03/25/22 04:25 ABG O2 Saturation 89.7 % (95.0-99.0) L 03/25/22 04:25 PT/INR, D-dimer PT 17.2 Sec. (12.2-14.9) H 03/22/22 09:30 INR 1.25 (0.87-1.13) H 03/22/22 09:30 D-Dimer 787.78 ng/mlDDU (0-234) H 03/10/22 05:45 Abnormal lab findings: Abnormal Labs 03/10/22 03/10/22 03/10/22 01:19 01:25 01:25 WBC RBC Hgb Hct MCH RDW 15.4 H Plt Count Lymph % (Auto) 12.4 L Lymph # (Auto) 1.1 L Seg Neutrophils % 85.9 H Seg Neuts % (Manual) Lymphocytes % (Manual) Nucleated RBC % Seg Neutrophils # Seg Neutrophils # Man Lymphocytes # (Manual) Monocytes # (Manual) Eosinophils # (Manual) PT INR D-Dimer Heparin Anti-Xa Level ABG pH ABG pO2 59.3 L ABG HCO3 16.7 L ABG O2 Saturation 92.3 L ABG Base Excess -7.8 L ABG Hemoglobin 11.4 L Oxyhemoglobin 90.8 L Sodium 119 L* Potassium 3.1 L Chloride 88.1 L Carbon Dioxide 16 L BUN Creatinine 0.3 L Glucose 146 H POC Glucose Lactic Acid Uric Acid Calcium 8.2 L Phosphorus Magnesium 1.30 L Ferritin ALT 5 L Lactate Dehydrogenase Total Creatine Kinase CK-MB (CK-2) Troponin T NT-Pro-B Natriuret Pep Total Protein 5.4 L Albumin 3.6 L Prealbumin Cholesterol LDL Cholesterol Direct HDL Cholesterol Vitamin B12 Folate Urine WBC (Auto) Urine Creatinine Crossmatch 03/10/22 03/10/22 03/10/22 01:25 01:25 01:25 WBC RBC Hgb Hct MCH RDW Plt Count Lymph % (Auto) Lymph # (Auto) Seg Neutrophils % Seg Neuts % (Manual) Lymphocytes % (Manual) Nucleated RBC % Seg Neutrophils # Seg Neutrophils # Man Lymphocytes # (Manual) Monocytes # (Manual) Eosinophils # (Manual) PT INR D-Dimer Heparin Anti-Xa Level ABG pH ABG pO2 ABG HCO3 ABG O2 Saturation ABG Base Excess ABG Hemoglobin Oxyhemoglobin Sodium Potassium Chloride Carbon Dioxide BUN Creatinine Glucose POC Glucose Lactic Acid 3.60 H* Uric Acid Calcium Phosphorus Magnesium Ferritin ALT Lactate Dehydrogenase Total Creatine Kinase CK-MB (CK-2) 4.6 H Troponin T 0.164 H* NT-Pro-B Natriuret Pep 18961 H Total Protein Albumin Prealbumin Cholesterol 259 H LDL Cholesterol Direct 187 H HDL Cholesterol 63 H Vitamin B12 Folate Urine WBC (Auto) Urine Creatinine Crossmatch 03/10/22 03/10/22 03/10/22 02:43 05:45 05:45 WBC RBC Hgb Hct MCH RDW Plt Count Lymph % (Auto) Lymph # (Auto) Seg Neutrophils % Seg Neuts % (Manual) Lymphocytes % (Manual) Nucleated RBC % Seg Neutrophils # Seg Neutrophils # Man Lymphocytes # (Manual) Monocytes # (Manual) Eosinophils # (Manual) PT INR D-Dimer 787.78 H Heparin Anti-Xa Level ABG pH ABG pO2 ABG HCO3 ABG O2 Saturation ABG Base Excess ABG Hemoglobin Oxyhemoglobin Sodium Potassium Chloride Carbon Dioxide BUN Creatinine Glucose POC Glucose Lactic Acid 3.70 H* 3.10 H* Uric Acid Calcium Phosphorus Magnesium Ferritin ALT Lactate Dehydrogenase Total Creatine Kinase CK-MB (CK-2) Troponin T NT-Pro-B Natriuret Pep Total Protein Albumin Prealbumin Cholesterol LDL Cholesterol Direct HDL Cholesterol Vitamin B12 Folate Urine WBC (Auto) Urine Creatinine Crossmatch 03/10/22 03/10/22 03/10/22 05:45 05:45 12:24 WBC RBC Hgb Hct MCH RDW Plt Count Lymph % (Auto) Lymph # (Auto) Seg Neutrophils % Seg Neuts % (Manual) Lymphocytes % (Manual) Nucleated RBC % Seg Neutrophils # Seg Neutrophils # Man Lymphocytes # (Manual) Monocytes # (Manual) Eosinophils # (Manual) PT INR D-Dimer Heparin Anti-Xa Level ABG pH ABG pO2 ABG HCO3 ABG O2 Saturation ABG Base Excess ABG Hemoglobin Oxyhemoglobin Sodium 124 L Potassium 3.3 L Chloride Carbon Dioxide 11 L BUN Creatinine 0.2 L Glucose POC Glucose Lactic Acid Uric Acid Calcium 6.9 L D Phosphorus Magnesium Ferritin 219.2 H ALT Lactate Dehydrogenase 210 H Total Creatine Kinase CK-MB (CK-2) Troponin T NT-Pro-B Natriuret Pep Total Protein Albumin Prealbumin Cholesterol LDL Cholesterol Direct HDL Cholesterol Vitamin B12 Folate Urine WBC (Auto) Urine Creatinine Crossmatch 03/10/22 03/10/22 03/10/22 12:24 12:24 12:24 WBC RBC Hgb Hct MCH RDW Plt Count Lymph % (Auto) Lymph # (Auto) Seg Neutrophils % Seg Neuts % (Manual) Lymphocytes % (Manual) Nucleated RBC % Seg Neutrophils # Seg Neutrophils # Man Lymphocytes # (Manual) Monocytes # (Manual) Eosinophils # (Manual) PT INR D-Dimer Heparin Anti-Xa Level ABG pH ABG pO2 ABG HCO3 ABG O2 Saturation ABG Base Excess ABG Hemoglobin Oxyhemoglobin Sodium 128 L Potassium Chloride Carbon Dioxide BUN Creatinine Glucose POC Glucose Lactic Acid 2.70 H* Uric Acid Calcium Phosphorus Magnesium Ferritin ALT Lactate Dehydrogenase Total Creatine Kinase 901 H CK-MB (CK-2) 15.3 H Troponin T 0.032 H D NT-Pro-B Natriuret Pep Total Protein Albumin Prealbumin Cholesterol LDL Cholesterol Direct HDL Cholesterol Vitamin B12 Folate Urine WBC (Auto) Urine Creatinine Crossmatch 03/10/22 03/10/22 03/10/22 12:45 13:15 18:00 WBC RBC Hgb Hct MCH RDW Plt Count Lymph % (Auto) Lymph # (Auto) Seg Neutrophils % Seg Neuts % (Manual) Lymphocytes % (Manual) Nucleated RBC % Seg Neutrophils # Seg Neutrophils # Man Lymphocytes # (Manual) Monocytes # (Manual) Eosinophils # (Manual) PT INR D-Dimer Heparin Anti-Xa Level ABG pH 7.315 L ABG pO2 70.1 L ABG HCO3 15.6 L ABG O2 Saturation 93.8 L ABG Base Excess -9.5 L ABG Hemoglobin 11.0 L Oxyhemoglobin 92.4 L Sodium 129 L Potassium Chloride Carbon Dioxide 17 L BUN Creatinine 0.2 L Glucose POC Glucose Lactic Acid Uric Acid 1.6 L Calcium 7.0 L Phosphorus Magnesium Ferritin ALT Lactate Dehydrogenase Total Creatine Kinase CK-MB (CK-2) Troponin T NT-Pro-B Natriuret Pep Total Protein Albumin Prealbumin Cholesterol LDL Cholesterol Direct HDL Cholesterol Vitamin B12 Folate Urine WBC (Auto) Urine Creatinine Crossmatch 03/10/22 03/10/22 03/11/22 18:20 21:05 05:00 WBC 13.7 H RBC 3.44 L Hgb 9.6 L Hct 29.0 L D MCH RDW Plt Count Lymph % (Auto) 8.9 L Lymph # (Auto) Seg Neutrophils % 86.6 H Seg Neuts % (Manual) Lymphocytes % (Manual) Nucleated RBC % Seg Neutrophils # 11.8 H Seg Neutrophils # Man Lymphocytes # (Manual) Monocytes # (Manual) Eosinophils # (Manual) PT INR D-Dimer Heparin Anti-Xa Level ABG pH ABG pO2 116.3 H ABG HCO3 17.2 L ABG O2 Saturation ABG Base Excess -6.4 L ABG Hemoglobin 11.0 L Oxyhemoglobin Sodium Potassium Chloride Carbon Dioxide BUN Creatinine Glucose POC Glucose Lactic Acid Uric Acid Calcium Phosphorus Magnesium Ferritin ALT Lactate Dehydrogenase Total Creatine Kinase CK-MB (CK-2) Troponin T NT-Pro-B Natriuret Pep Total Protein Albumin Prealbumin Cholesterol LDL Cholesterol Direct HDL Cholesterol Vitamin B12 Folate Urine WBC (Auto) 105.0 H Urine Creatinine Crossmatch 03/11/22 03/11/22 03/12/22 05:00 Unknown 04:10 WBC RBC Hgb Hct MCH RDW Plt Count Lymph % (Auto) Lymph # (Auto) Seg Neutrophils % Seg Neuts % (Manual) Lymphocytes % (Manual) Nucleated RBC % Seg Neutrophils # Seg Neutrophils # Man Lymphocytes # (Manual) Monocytes # (Manual) Eosinophils # (Manual) PT INR D-Dimer Heparin Anti-Xa Level ABG pH 7.472 H 7.482 H ABG pO2 65.5 L ABG HCO3 19.8 L ABG O2 Saturation ABG Base Excess -2.9 L ABG Hemoglobin 10.1 L 8.4 L Oxyhemoglobin Sodium 132 L Potassium Chloride Carbon Dioxide 20 L BUN 6 L Creatinine 0.2 L Glucose POC Glucose Lactic Acid Uric Acid Calcium 7.5 L Phosphorus Magnesium Ferritin ALT Lactate Dehydrogenase Total Creatine Kinase CK-MB (CK-2) Troponin T NT-Pro-B Natriuret Pep Total Protein Albumin Prealbumin Cholesterol LDL Cholesterol Direct HDL Cholesterol Vitamin B12 Folate Urine WBC (Auto) Urine Creatinine Crossmatch 03/12/22 03/12/22 03/12/22 04:20 04:20 12:25 WBC 13.6 H RBC 3.11 L Hgb 8.7 L Hct 26.1 L MCH RDW Plt Count Lymph % (Auto) Lymph # (Auto) Seg Neutrophils % Seg Neuts % (Manual) Lymphocytes % (Manual) Nucleated RBC % Seg Neutrophils # Seg Neutrophils # Man Lymphocytes # (Manual) Monocytes # (Manual) Eosinophils # (Manual) PT INR D-Dimer Heparin Anti-Xa Level ABG pH ABG pO2 ABG HCO3 ABG O2 Saturation ABG Base Excess ABG Hemoglobin Oxyhemoglobin Sodium 128 L Potassium 3.2 L Chloride 93.9 L Carbon Dioxide BUN 4 L Creatinine 0.2 L Glucose 103 H POC Glucose 116 H Lactic Acid Uric Acid Calcium 7.4 L Phosphorus 1.10 L Magnesium 2.40 H Ferritin ALT Lactate Dehydrogenase Total Creatine Kinase CK-MB (CK-2) Troponin T NT-Pro-B Natriuret Pep Total Protein Albumin Prealbumin Cholesterol LDL Cholesterol Direct HDL Cholesterol Vitamin B12 Folate Urine WBC (Auto) Urine Creatinine Crossmatch 03/12/22 03/12/22 03/12/22 18:40 18:40 18:40 WBC RBC Hgb Hct MCH RDW Plt Count Lymph % (Auto) Lymph # (Auto) Seg Neutrophils % Seg Neuts % (Manual) Lymphocytes % (Manual) Nucleated RBC % Seg Neutrophils # Seg Neutrophils # Man Lymphocytes # (Manual) Monocytes # (Manual) Eosinophils # (Manual) PT INR D-Dimer Heparin Anti-Xa Level ABG pH ABG pO2 ABG HCO3 ABG O2 Saturation ABG Base Excess ABG Hemoglobin Oxyhemoglobin Sodium Potassium Chloride Carbon Dioxide BUN Creatinine Glucose POC Glucose Lactic Acid Uric Acid Calcium Phosphorus Magnesium Ferritin ALT Lactate Dehydrogenase Total Creatine Kinase CK-MB (CK-2) Troponin T NT-Pro-B Natriuret Pep Total Protein Albumin Prealbumin 0.044 L Cholesterol LDL Cholesterol Direct HDL Cholesterol Vitamin B12 1021 H Folate 2.15 L Urine WBC (Auto) Urine Creatinine Crossmatch 03/13/22 03/13/22 03/13/22 04:10 08:00 09:50 WBC 15.0 H RBC 2.82 L Hgb 8.0 L Hct 23.9 L MCH RDW 15.5 H Plt Count Lymph % (Auto) Lymph # (Auto) Seg Neutrophils % Seg Neuts % (Manual) Lymphocytes % (Manual) Nucleated RBC % Seg Neutrophils # Seg Neutrophils # Man Lymphocytes # (Manual) Monocytes # (Manual) Eosinophils # (Manual) PT INR D-Dimer Heparin Anti-Xa Level ABG pH ABG pO2 98.6 H ABG HCO3 ABG O2 Saturation ABG Base Excess ABG Hemoglobin 8.3 L Oxyhemoglobin Sodium 130 L Potassium Chloride 96.1 L Carbon Dioxide BUN Creatinine 0.4 L D Glucose 148 H POC Glucose Lactic Acid Uric Acid Calcium 7.3 L Phosphorus Magnesium Ferritin ALT Lactate Dehydrogenase Total Creatine Kinase CK-MB (CK-2) Troponin T NT-Pro-B Natriuret Pep Total Protein Albumin Prealbumin Cholesterol LDL Cholesterol Direct HDL Cholesterol Vitamin B12 Folate Urine WBC (Auto) Urine Creatinine Crossmatch 03/13/22 03/13/22 03/14/22 20:15 22:59 04:54 WBC 17.0 H RBC 2.79 L Hgb 7.8 L Hct 23.6 L MCH RDW 15.6 H Plt Count Lymph % (Auto) Lymph # (Auto) Seg Neutrophils % Seg Neuts % (Manual) Lymphocytes % (Manual) Nucleated RBC % Seg Neutrophils # Seg Neutrophils # Man Lymphocytes # (Manual) Monocytes # (Manual) Eosinophils # (Manual) PT INR D-Dimer Heparin Anti-Xa Level ABG pH ABG pO2 ABG HCO3 ABG O2 Saturation ABG Base Excess -2.9 L ABG Hemoglobin 8.0 L Oxyhemoglobin Sodium Potassium Chloride Carbon Dioxide BUN Creatinine Glucose POC Glucose 127 H Lactic Acid Uric Acid Calcium Phosphorus Magnesium Ferritin ALT Lactate Dehydrogenase Total Creatine Kinase CK-MB (CK-2) Troponin T NT-Pro-B Natriuret Pep Total Protein Albumin Prealbumin Cholesterol LDL Cholesterol Direct HDL Cholesterol Vitamin B12 Folate Urine WBC (Auto) Urine Creatinine Crossmatch 03/14/22 03/14/22 03/14/22 04:54 16:15 22:59 WBC RBC Hgb Hct MCH RDW Plt Count Lymph % (Auto) Lymph # (Auto) Seg Neutrophils % Seg Neuts % (Manual) Lymphocytes % (Manual) Nucleated RBC % Seg Neutrophils # Seg Neutrophils # Man Lymphocytes # (Manual) Monocytes # (Manual) Eosinophils # (Manual) PT INR D-Dimer Heparin Anti-Xa Level ABG pH ABG pO2 ABG HCO3 ABG O2 Saturation ABG Base Excess ABG Hemoglobin Oxyhemoglobin Sodium 129 L 128 L Potassium 3.5 L Chloride 97.1 L 97.0 L Carbon Dioxide BUN 24 H 31 H Creatinine 0.5 L Glucose 125 H 114 H POC Glucose 134 H Lactic Acid Uric Acid Calcium 7.0 L 7.0 L Phosphorus Magnesium Ferritin ALT Lactate Dehydrogenase Total Creatine Kinase CK-MB (CK-2) Troponin T NT-Pro-B Natriuret Pep Total Protein Albumin Prealbumin Cholesterol LDL Cholesterol Direct HDL Cholesterol Vitamin B12 Folate Urine WBC (Auto) Urine Creatinine Crossmatch 03/15/22 03/15/22 03/15/22 04:10 04:10 05:02 WBC 12.9 H RBC 2.55 L Hgb 7.1 L Hct 21.5 L MCH RDW 15.8 H Plt Count Lymph % (Auto) Lymph # (Auto) Seg Neutrophils % Seg Neuts % (Manual) 88.0 H Lymphocytes % (Manual) 5.0 L Nucleated RBC % Seg Neutrophils # Seg Neutrophils # Man 11.4 H Lymphocytes # (Manual) 0.6 L Monocytes # (Manual) Eosinophils # (Manual) 0.5 H PT INR D-Dimer Heparin Anti-Xa Level ABG pH ABG pO2 ABG HCO3 ABG O2 Saturation ABG Base Excess ABG Hemoglobin Oxyhemoglobin Sodium 127 L Potassium Chloride 96.3 L Carbon Dioxide 21 L BUN 33 H Creatinine Glucose 126 H POC Glucose 116 H Lactic Acid Uric Acid Calcium 7.4 L Phosphorus 1.20 L Magnesium Ferritin ALT Lactate Dehydrogenase Total Creatine Kinase CK-MB (CK-2) Troponin T NT-Pro-B Natriuret Pep Total Protein 5.3 L Albumin 2.1 L Prealbumin Cholesterol LDL Cholesterol Direct HDL Cholesterol Vitamin B12 Folate Urine WBC (Auto) Urine Creatinine Crossmatch 03/15/22 03/15/22 03/15/22 05:55 09:42 11:34 WBC RBC Hgb Hct MCH RDW Plt Count Lymph % (Auto) Lymph # (Auto) Seg Neutrophils % Seg Neuts % (Manual) Lymphocytes % (Manual) Nucleated RBC % Seg Neutrophils # Seg Neutrophils # Man Lymphocytes # (Manual) Monocytes # (Manual) Eosinophils # (Manual) PT INR D-Dimer Heparin Anti-Xa Level ABG pH ABG pO2 119.0 H ABG HCO3 ABG O2 Saturation ABG Base Excess -3.1 L ABG Hemoglobin 8.2 L Oxyhemoglobin Sodium Potassium Chloride Carbon Dioxide BUN Creatinine Glucose POC Glucose 125 H Lactic Acid Uric Acid Calcium Phosphorus Magnesium Ferritin ALT Lactate Dehydrogenase Total Creatine Kinase CK-MB (CK-2) Troponin T NT-Pro-B Natriuret Pep Total Protein Albumin Prealbumin Cholesterol LDL Cholesterol Direct HDL Cholesterol Vitamin B12 Folate Urine WBC (Auto) Urine Creatinine Crossmatch See Detail 03/15/22 03/16/22 03/16/22 20:55 04:50 04:50 WBC 16.9 H RBC 2.53 L Hgb 7.1 L Hct 21.5 L MCH RDW 16.0 H Plt Count Lymph % (Auto) Lymph # (Auto) Seg Neutrophils % Seg Neuts % (Manual) Lymphocytes % (Manual) Nucleated RBC % Seg Neutrophils # Seg Neutrophils # Man Lymphocytes # (Manual) Monocytes # (Manual) Eosinophils # (Manual) PT INR D-Dimer Heparin Anti-Xa Level ABG pH 7.320 L ABG pO2 122.8 H ABG HCO3 ABG O2 Saturation ABG Base Excess -4.1 L ABG Hemoglobin 7.0 L Oxyhemoglobin Sodium 132 L Potassium Chloride Carbon Dioxide 20 L BUN 44 H Creatinine Glucose 123 H POC Glucose Lactic Acid Uric Acid Calcium 7.6 L Phosphorus Magnesium Ferritin ALT Lactate Dehydrogenase Total Creatine Kinase CK-MB (CK-2) Troponin T NT-Pro-B Natriuret Pep Total Protein Albumin Prealbumin Cholesterol LDL Cholesterol Direct HDL Cholesterol Vitamin B12 Folate Urine WBC (Auto) Urine Creatinine Crossmatch 03/16/22 03/16/22 03/16/22 05:42 11:32 23:05 WBC RBC Hgb Hct MCH RDW Plt Count Lymph % (Auto) Lymph # (Auto) Seg Neutrophils % Seg Neuts % (Manual) Lymphocytes % (Manual) Nucleated RBC % Seg Neutrophils # Seg Neutrophils # Man Lymphocytes # (Manual) Monocytes # (Manual) Eosinophils # (Manual) PT INR D-Dimer Heparin Anti-Xa Level ABG pH ABG pO2 ABG HCO3 ABG O2 Saturation ABG Base Excess ABG Hemoglobin Oxyhemoglobin Sodium Potassium Chloride Carbon Dioxide BUN Creatinine Glucose POC Glucose 113 H 118 H 114 H Lactic Acid Uric Acid Calcium Phosphorus Magnesium Ferritin ALT Lactate Dehydrogenase Total Creatine Kinase CK-MB (CK-2) Troponin T NT-Pro-B Natriuret Pep Total Protein Albumin Prealbumin Cholesterol LDL Cholesterol Direct HDL Cholesterol Vitamin B12 Folate Urine WBC (Auto) Urine Creatinine Crossmatch 03/17/22 03/17/22 03/17/22 04:00 04:00 05:00 WBC 19.1 H RBC 2.44 L Hgb 6.6 L Hct 20.6 L MCH 27 L RDW 16.4 H Plt Count Lymph % (Auto) Lymph # (Auto) Seg Neutrophils % Seg Neuts % (Manual) 78.0 H Lymphocytes % (Manual) 2.0 L Nucleated RBC % Seg Neutrophils # Seg Neutrophils # Man 14.9 H Lymphocytes # (Manual) 0.4 L Monocytes # (Manual) 1.3 H Eosinophils # (Manual) 0.6 H PT INR D-Dimer Heparin Anti-Xa Level ABG pH 7.334 L ABG pO2 132.4 H ABG HCO3 ABG O2 Saturation ABG Base Excess -2.7 L ABG Hemoglobin 9.1 L Oxyhemoglobin Sodium 134 L Potassium Chloride Carbon Dioxide BUN 55 H Creatinine Glucose 125 H POC Glucose Lactic Acid Uric Acid Calcium 8.1 L Phosphorus Magnesium Ferritin ALT Lactate Dehydrogenase Total Creatine Kinase CK-MB (CK-2) Troponin T NT-Pro-B Natriuret Pep Total Protein Albumin Prealbumin Cholesterol LDL Cholesterol Direct HDL Cholesterol Vitamin B12 Folate Urine WBC (Auto) Urine Creatinine Crossmatch 03/17/22 03/17/22 03/17/22 05:40 15:30 17:48 WBC RBC Hgb 8.2 L Hct 24.9 L MCH RDW Plt Count Lymph % (Auto) Lymph # (Auto) Seg Neutrophils % Seg Neuts % (Manual) Lymphocytes % (Manual) Nucleated RBC % Seg Neutrophils # Seg Neutrophils # Man Lymphocytes # (Manual) Monocytes # (Manual) Eosinophils # (Manual) PT INR D-Dimer Heparin Anti-Xa Level ABG pH ABG pO2 ABG HCO3 ABG O2 Saturation ABG Base Excess ABG Hemoglobin Oxyhemoglobin Sodium Potassium Chloride Carbon Dioxide BUN Creatinine Glucose POC Glucose 115 H 117 H Lactic Acid Uric Acid Calcium Phosphorus Magnesium Ferritin ALT Lactate Dehydrogenase Total Creatine Kinase CK-MB (CK-2) Troponin T NT-Pro-B Natriuret Pep Total Protein Albumin Prealbumin Cholesterol LDL Cholesterol Direct HDL Cholesterol Vitamin B12 Folate Urine WBC (Auto) Urine Creatinine Crossmatch 03/17/22 03/18/22 03/18/22 23:54 05:04 05:20 WBC RBC Hgb Hct MCH RDW Plt Count Lymph % (Auto) Lymph # (Auto) Seg Neutrophils % Seg Neuts % (Manual) Lymphocytes % (Manual) Nucleated RBC % Seg Neutrophils # Seg Neutrophils # Man Lymphocytes # (Manual) Monocytes # (Manual) Eosinophils # (Manual) PT INR D-Dimer Heparin Anti-Xa Level ABG pH 7.302 L ABG pO2 71.0 L ABG HCO3 ABG O2 Saturation 94.9 L ABG Base Excess -4.3 L ABG Hemoglobin 9.6 L Oxyhemoglobin 92.9 L Sodium 135 L Potassium Chloride Carbon Dioxide BUN 66 H Creatinine Glucose 122 H POC Glucose 114 H Lactic Acid Uric Acid Calcium 8.2 L Phosphorus Magnesium Ferritin ALT Lactate Dehydrogenase Total Creatine Kinase CK-MB (CK-2) Troponin T NT-Pro-B Natriuret Pep Total Protein 5.4 L Albumin 2.0 L Prealbumin Cholesterol LDL Cholesterol Direct HDL Cholesterol Vitamin B12 Folate Urine WBC (Auto) Urine Creatinine Crossmatch 03/18/22 03/18/22 03/18/22 05:20 06:44 12:04 WBC 23.9 H RBC 2.88 L Hgb 8.1 L Hct 25.1 L MCH RDW 16.0 H Plt Count Lymph % (Auto) Lymph # (Auto) Seg Neutrophils % Seg Neuts % (Manual) 89.0 H Lymphocytes % (Manual) 7.5 L Nucleated RBC % Seg Neutrophils # Seg Neutrophils # Man 21.3 H Lymphocytes # (Manual) Monocytes # (Manual) Eosinophils # (Manual) PT INR D-Dimer Heparin Anti-Xa Level ABG pH ABG pO2 ABG HCO3 ABG O2 Saturation ABG Base Excess ABG Hemoglobin Oxyhemoglobin Sodium Potassium Chloride Carbon Dioxide BUN Creatinine Glucose POC Glucose 107 H 119 H Lactic Acid Uric Acid Calcium Phosphorus Magnesium Ferritin ALT Lactate Dehydrogenase Total Creatine Kinase CK-MB (CK-2) Troponin T NT-Pro-B Natriuret Pep Total Protein Albumin Prealbumin Cholesterol LDL Cholesterol Direct HDL Cholesterol Vitamin B12 Folate Urine WBC (Auto) Urine Creatinine Crossmatch 03/19/22 03/19/22 03/19/22 05:15 08:59 08:59 WBC 30.4 H RBC 2.78 L Hgb 7.7 L Hct 24.2 L MCH RDW 16.4 H Plt Count Lymph % (Auto) Lymph # (Auto) Seg Neutrophils % Seg Neuts % (Manual) Lymphocytes % (Manual) Nucleated RBC % Seg Neutrophils # Seg Neutrophils # Man Lymphocytes # (Manual) Monocytes # (Manual) Eosinophils # (Manual) PT INR D-Dimer Heparin Anti-Xa Level ABG pH 7.341 L ABG pO2 78.1 L ABG HCO3 ABG O2 Saturation ABG Base Excess -4.5 L ABG Hemoglobin 9.5 L Oxyhemoglobin Sodium 132 L Potassium 5.5 H Chloride Carbon Dioxide 19 L BUN 84 H Creatinine Glucose 124 H POC Glucose Lactic Acid Uric Acid Calcium Phosphorus Magnesium Ferritin ALT Lactate Dehydrogenase Total Creatine Kinase CK-MB (CK-2) Troponin T NT-Pro-B Natriuret Pep Total Protein Albumin Prealbumin Cholesterol LDL Cholesterol Direct HDL Cholesterol Vitamin B12 Folate Urine WBC (Auto) Urine Creatinine Crossmatch 03/19/22 03/19/22 03/19/22 14:40 14:40 18:37 WBC RBC Hgb Hct MCH RDW Plt Count Lymph % (Auto) Lymph # (Auto) Seg Neutrophils % Seg Neuts % (Manual) Lymphocytes % (Manual) Nucleated RBC % Seg Neutrophils # Seg Neutrophils # Man Lymphocytes # (Manual) Monocytes # (Manual) Eosinophils # (Manual) PT INR D-Dimer Heparin Anti-Xa Level ABG pH 7.337 L ABG pO2 41.2 L ABG HCO3 ABG O2 Saturation 74.8 L ABG Base Excess -4.5 L ABG Hemoglobin 7.9 L Oxyhemoglobin 72.9 L Sodium Potassium Chloride Carbon Dioxide BUN Creatinine Glucose POC Glucose 120 H Lactic Acid Uric Acid Calcium Phosphorus Magnesium Ferritin ALT Lactate Dehydrogenase Total Creatine Kinase CK-MB (CK-2) Troponin T NT-Pro-B Natriuret Pep Total Protein Albumin Prealbumin Cholesterol LDL Cholesterol Direct HDL Cholesterol Vitamin B12 Folate Urine WBC (Auto) Urine Creatinine 34.4 H Crossmatch 03/19/22 03/20/22 03/20/22 23:15 05:20 05:20 WBC 29.5 H RBC 2.76 L Hgb 7.6 L Hct 23.7 L MCH 27 L RDW 16.6 H Plt Count Lymph % (Auto) Lymph # (Auto) Seg Neutrophils % Seg Neuts % (Manual) Lymphocytes % (Manual) Nucleated RBC % Seg Neutrophils # Seg Neutrophils # Man Lymphocytes # (Manual) Monocytes # (Manual) Eosinophils # (Manual) PT INR D-Dimer Heparin Anti-Xa Level ABG pH ABG pO2 ABG HCO3 ABG O2 Saturation ABG Base Excess ABG Hemoglobin Oxyhemoglobin Sodium Potassium Chloride Carbon Dioxide BUN 96 H Creatinine Glucose 141 H POC Glucose 125 H Lactic Acid Uric Acid Calcium Phosphorus Magnesium Ferritin ALT Lactate Dehydrogenase Total Creatine Kinase CK-MB (CK-2) Troponin T NT-Pro-B Natriuret Pep Total Protein Albumin Prealbumin Cholesterol LDL Cholesterol Direct HDL Cholesterol Vitamin B12 Folate Urine WBC (Auto) Urine Creatinine Crossmatch 03/20/22 03/20/22 03/21/22 06:09 10:05 04:00 WBC RBC Hgb Hct MCH RDW Plt Count Lymph % (Auto) Lymph # (Auto) Seg Neutrophils % Seg Neuts % (Manual) Lymphocytes % (Manual) Nucleated RBC % Seg Neutrophils # Seg Neutrophils # Man Lymphocytes # (Manual) Monocytes # (Manual) Eosinophils # (Manual) PT INR D-Dimer Heparin Anti-Xa Level ABG pH 7.278 L ABG pO2 71.0 L ABG HCO3 ABG O2 Saturation 92.6 L ABG Base Excess ABG Hemoglobin 8.2 L Oxyhemoglobin 90.5 L Sodium 135 L Potassium 5.7 H D Chloride 97.4 L Carbon Dioxide 21 L BUN 104 H Creatinine 1.3 H Glucose 118 H POC Glucose 121 H Lactic Acid Uric Acid Calcium Phosphorus Magnesium Ferritin ALT Lactate Dehydrogenase Total Creatine Kinase CK-MB (CK-2) Troponin T NT-Pro-B Natriuret Pep Total Protein Albumin Prealbumin Cholesterol LDL Cholesterol Direct HDL Cholesterol Vitamin B12 Folate Urine WBC (Auto) Urine Creatinine Crossmatch 03/21/22 03/21/22 03/21/22 04:40 15:30 21:00 WBC 25.6 H RBC 2.61 L Hgb 7.3 L Hct 22.8 L MCH RDW 16.8 H Plt Count 462 H Lymph % (Auto) Lymph # (Auto) Seg Neutrophils % Seg Neuts % (Manual) 71.0 H Lymphocytes % (Manual) 2.0 L Nucleated RBC % 1.0 H Seg Neutrophils # Seg Neutrophils # Man 18.2 H Lymphocytes # (Manual) 0.5 L Monocytes # (Manual) 1.8 H Eosinophils # (Manual) 0.8 H PT INR D-Dimer Heparin Anti-Xa Level ABG pH 7.197 L* 7.284 L ABG pO2 76.6 L 68.6 L ABG HCO3 ABG O2 Saturation 92.8 L ABG Base Excess -5.7 L -3.7 L ABG Hemoglobin 10.0 L 7.6 L Oxyhemoglobin 94.3 L 90.7 L Sodium Potassium Chloride Carbon Dioxide BUN Creatinine Glucose POC Glucose Lactic Acid Uric Acid Calcium Phosphorus Magnesium Ferritin ALT Lactate Dehydrogenase Total Creatine Kinase CK-MB (CK-2) Troponin T NT-Pro-B Natriuret Pep Total Protein Albumin Prealbumin Cholesterol LDL Cholesterol Direct HDL Cholesterol Vitamin B12 Folate Urine WBC (Auto) Urine Creatinine Crossmatch 03/22/22 03/22/22 03/22/22 04:10 04:10 09:00 WBC 32.9 H RBC 2.60 L Hgb 7.4 L Hct 22.3 L MCH RDW 16.8 H Plt Count 517 H Lymph % (Auto) Lymph # (Auto) Seg Neutrophils % Seg Neuts % (Manual) Lymphocytes % (Manual) Nucleated RBC % Seg Neutrophils # Seg Neutrophils # Man Lymphocytes # (Manual) Monocytes # (Manual) Eosinophils # (Manual) PT INR D-Dimer Heparin Anti-Xa Level ABG pH ABG pO2 ABG HCO3 19.9 L ABG O2 Saturation ABG Base Excess -4.9 L ABG Hemoglobin 7.5 L Oxyhemoglobin Sodium Potassium 5.4 H Chloride 97.2 L Carbon Dioxide 21 L BUN 116 H Creatinine 1.6 H Glucose 142 H POC Glucose Lactic Acid Uric Acid Calcium Phosphorus Magnesium Ferritin ALT Lactate Dehydrogenase Total Creatine Kinase CK-MB (CK-2) Troponin T NT-Pro-B Natriuret Pep Total Protein Albumin Prealbumin Cholesterol LDL Cholesterol Direct HDL Cholesterol Vitamin B12 Folate Urine WBC (Auto) Urine Creatinine Crossmatch 03/22/22 03/22/22 03/22/22 09:30 13:02 17:49 WBC RBC Hgb Hct MCH RDW Plt Count Lymph % (Auto) Lymph # (Auto) Seg Neutrophils % Seg Neuts % (Manual) Lymphocytes % (Manual) Nucleated RBC % Seg Neutrophils # Seg Neutrophils # Man Lymphocytes # (Manual) Monocytes # (Manual) Eosinophils # (Manual) PT 17.2 H INR 1.25 H D-Dimer Heparin Anti-Xa Level ABG pH ABG pO2 ABG HCO3 ABG O2 Saturation ABG Base Excess ABG Hemoglobin Oxyhemoglobin Sodium Potassium Chloride Carbon Dioxide BUN Creatinine Glucose POC Glucose 120 H 118 H Lactic Acid Uric Acid Calcium Phosphorus Magnesium Ferritin ALT Lactate Dehydrogenase Total Creatine Kinase CK-MB (CK-2) Troponin T NT-Pro-B Natriuret Pep Total Protein Albumin Prealbumin Cholesterol LDL Cholesterol Direct HDL Cholesterol Vitamin B12 Folate Urine WBC (Auto) Urine Creatinine Crossmatch 03/23/22 03/23/22 03/23/22 04:20 04:20 04:25 WBC 37.3 H RBC 2.57 L Hgb 7.2 L Hct 22.3 L MCH RDW 16.6 H Plt Count 580 H Lymph % (Auto) Lymph # (Auto) Seg Neutrophils % Seg Neuts % (Manual) Lymphocytes % (Manual) Nucleated RBC % Seg Neutrophils # Seg Neutrophils # Man Lymphocytes # (Manual) Monocytes # (Manual) Eosinophils # (Manual) PT INR D-Dimer Heparin Anti-Xa Level ABG pH 7.333 L ABG pO2 70.9 L ABG HCO3 ABG O2 Saturation 93.3 L ABG Base Excess -5.0 L ABG Hemoglobin 7.0 L Oxyhemoglobin 91.2 L Sodium Potassium Chloride Carbon Dioxide 19 L BUN 125 H Creatinine 1.9 H Glucose 133 H POC Glucose Lactic Acid Uric Acid Calcium 8.2 L Phosphorus Magnesium Ferritin ALT Lactate Dehydrogenase Total Creatine Kinase CK-MB (CK-2) Troponin T NT-Pro-B Natriuret Pep Total Protein Albumin Prealbumin Cholesterol LDL Cholesterol Direct HDL Cholesterol Vitamin B12 Folate Urine WBC (Auto) Urine Creatinine Crossmatch 03/23/22 03/23/22 03/23/22 05:40 07:25 11:13 WBC RBC Hgb Hct MCH RDW Plt Count Lymph % (Auto) Lymph # (Auto) Seg Neutrophils % Seg Neuts % (Manual) Lymphocytes % (Manual) Nucleated RBC % Seg Neutrophils # Seg Neutrophils # Man Lymphocytes # (Manual) Monocytes # (Manual) Eosinophils # (Manual) PT INR D-Dimer Heparin Anti-Xa Level 0.29 L ABG pH ABG pO2 ABG HCO3 ABG O2 Saturation ABG Base Excess ABG Hemoglobin Oxyhemoglobin Sodium Potassium Chloride Carbon Dioxide BUN Creatinine Glucose POC Glucose 121 H 112 H Lactic Acid Uric Acid Calcium Phosphorus Magnesium Ferritin ALT Lactate Dehydrogenase Total Creatine Kinase CK-MB (CK-2) Troponin T NT-Pro-B Natriuret Pep Total Protein Albumin Prealbumin Cholesterol LDL Cholesterol Direct HDL Cholesterol Vitamin B12 Folate Urine WBC (Auto) Urine Creatinine Crossmatch 03/23/22 03/24/22 03/24/22 23:35 04:25 04:25 WBC RBC Hgb 7.3 L Hct 24.5 L MCH RDW Plt Count Lymph % (Auto) Lymph # (Auto) Seg Neutrophils % Seg Neuts % (Manual) Lymphocytes % (Manual) Nucleated RBC % Seg Neutrophils # Seg Neutrophils # Man Lymphocytes # (Manual) Monocytes # (Manual) Eosinophils # (Manual) PT INR D-Dimer Heparin Anti-Xa Level ABG pH ABG pO2 ABG HCO3 ABG O2 Saturation ABG Base Excess ABG Hemoglobin Oxyhemoglobin Sodium 136 L Potassium 5.1 H Chloride Carbon Dioxide 18 L BUN 130 H Creatinine 2.1 H Glucose 122 H POC Glucose 114 H Lactic Acid Uric Acid Calcium 8.1 L Phosphorus Magnesium Ferritin ALT Lactate Dehydrogenase Total Creatine Kinase CK-MB (CK-2) Troponin T NT-Pro-B Natriuret Pep Total Protein Albumin Prealbumin Cholesterol LDL Cholesterol Direct HDL Cholesterol Vitamin B12 Folate Urine WBC (Auto) Urine Creatinine Crossmatch 03/24/22 03/24/22 03/24/22 04:40 08:40 09:23 WBC 47.4 H* RBC 2.73 L Hgb 7.5 L Hct 24.3 L MCH 27 L RDW 17.0 H Plt Count 667 H Lymph % (Auto) Lymph # (Auto) Seg Neutrophils % Seg Neuts % (Manual) 82.0 H Lymphocytes % (Manual) 6.0 L Nucleated RBC % 4.0 H Seg Neutrophils # Seg Neutrophils # Man 38.9 H Lymphocytes # (Manual) Monocytes # (Manual) 1.4 H Eosinophils # (Manual) 0.5 H PT INR D-Dimer Heparin Anti-Xa Level 0.18 L ABG pH 7.240 L ABG pO2 96.8 H ABG HCO3 18.1 L ABG O2 Saturation ABG Base Excess -8.6 L ABG Hemoglobin 7.2 L Oxyhemoglobin 94.5 L Sodium Potassium Chloride Carbon Dioxide BUN Creatinine Glucose POC Glucose Lactic Acid Uric Acid Calcium Phosphorus Magnesium Ferritin ALT Lactate Dehydrogenase Total Creatine Kinase CK-MB (CK-2) Troponin T NT-Pro-B Natriuret Pep Total Protein Albumin Prealbumin Cholesterol LDL Cholesterol Direct HDL Cholesterol Vitamin B12 Folate Urine WBC (Auto) Urine Creatinine Crossmatch 03/24/22 03/25/22 03/25/22 17:12 04:25 04:40 WBC 49.1 H* RBC 2.60 L Hgb 7.4 L Hct 23.1 L MCH RDW 17.5 H Plt Count 630 H Lymph % (Auto) Lymph # (Auto) Seg Neutrophils % Seg Neuts % (Manual) Lymphocytes % (Manual) Nucleated RBC % Seg Neutrophils # Seg Neutrophils # Man Lymphocytes # (Manual) Monocytes # (Manual) Eosinophils # (Manual) PT INR D-Dimer Heparin Anti-Xa Level ABG pH 7.255 L ABG pO2 65.1 L ABG HCO3 18.0 L ABG O2 Saturation 89.7 L ABG Base Excess -8.5 L ABG Hemoglobin 7.2 L Oxyhemoglobin 87.4 L Sodium Potassium Chloride Carbon Dioxide BUN Creatinine Glucose POC Glucose 126 H Lactic Acid Uric Acid Calcium Phosphorus Magnesium Ferritin ALT Lactate Dehydrogenase Total Creatine Kinase CK-MB (CK-2) Troponin T NT-Pro-B Natriuret Pep Total Protein Albumin Prealbumin Cholesterol LDL Cholesterol Direct HDL Cholesterol Vitamin B12 Folate Urine WBC (Auto) Urine Creatinine Crossmatch 03/25/22 03/25/22 03/25/22 04:40 04:40 11:12 WBC RBC Hgb Hct MCH RDW Plt Count Lymph % (Auto) Lymph # (Auto) Seg Neutrophils % Seg Neuts % (Manual) Lymphocytes % (Manual) Nucleated RBC % Seg Neutrophils # Seg Neutrophils # Man Lymphocytes # (Manual) Monocytes # (Manual) Eosinophils # (Manual) PT INR D-Dimer Heparin Anti-Xa Level 0.22 L ABG pH ABG pO2 ABG HCO3 ABG O2 Saturation ABG Base Excess ABG Hemoglobin Oxyhemoglobin Sodium 136 L Potassium 5.3 H Chloride 95.7 L Carbon Dioxide 18 L BUN 135 H Creatinine 2.2 H Glucose 121 H POC Glucose 123 H Lactic Acid Uric Acid Calcium 7.8 L Phosphorus Magnesium Ferritin ALT Lactate Dehydrogenase Total Creatine Kinase CK-MB (CK-2) Troponin T NT-Pro-B Natriuret Pep Total Protein Albumin Prealbumin Cholesterol LDL Cholesterol Direct HDL Cholesterol Vitamin B12 Folate Urine WBC (Auto) Urine Creatinine Crossmatch 03/25/22 16:32 WBC RBC Hgb Hct MCH RDW Plt Count Lymph % (Auto) Lymph # (Auto) Seg Neutrophils % Seg Neuts % (Manual) Lymphocytes % (Manual) Nucleated RBC % Seg Neutrophils # Seg Neutrophils # Man Lymphocytes # (Manual) Monocytes # (Manual) Eosinophils # (Manual) PT INR D-Dimer Heparin Anti-Xa Level ABG pH ABG pO2 ABG HCO3 ABG O2 Saturation ABG Base Excess ABG Hemoglobin Oxyhemoglobin Sodium Potassium Chloride Carbon Dioxide BUN Creatinine Glucose POC Glucose 119 H Lactic Acid Uric Acid Calcium Phosphorus Magnesium Ferritin ALT Lactate Dehydrogenase Total Creatine Kinase CK-MB (CK-2) Troponin T NT-Pro-B Natriuret Pep Total Protein Albumin Prealbumin Cholesterol LDL Cholesterol Direct HDL Cholesterol Vitamin B12 Folate Urine WBC (Auto) Urine Creatinine Crossmatch Allied health notes reviewed: RT
[2022-03-25 22:47] LABS: ABG Base Excess -8.3 mmol/L (-2.0-3.0); ABG HCO3 18.3 mmol/L (20.0-26.0); ABG Methemoglobin 0.4 % (0.0-1.5); ABG PCO2 43.2 mm Hg; ABG PH 7.245 pH Units (7.350-7.450); ABG PO2 176.5 mm Hg (80.0-90.0)
[2022-03-26] MEDS: fentaNYL DRIP Premix 2,000 MCG/100 ML BAG IV SCH ×4 (00:05→22:54)
[2022-03-26] MEDS: NORepinephrine/NS 8 MG-250 ML 8 MG/250 ML INFUS..BTL IV SCH ×2 (00:06→10:40)
[2022-03-26] MEDS: VANCOMYCIN 250 MG/10 ML ORAL LIQD PO SCH ×4 (00:06→17:07)
[2022-03-26] MEDS: metroNIDAZOLE/NS 500 MG/100 ML 500 MG/100 ML BAG IV SCH ×3 (03:00→17:08)
[2022-03-26 03:44] LABS: Hematocrit 23.6 % (30.3-42.9); Hemoglobin 7.3 gm/dl (10.1-14.3); Mean Corpuscular HGB Conc 31 % (30-34); Mean Corpuscular Volume 90 fl (79-97); Platelet Count 600 K/mm3 (140-440); Red Blood Count 2.61 M/mm3 (3.65-5.03); Red Cell Distribution Width 17.4 % (13.2-15.2)
[2022-03-26 04:02] LABS: Albumin 2.1 g/dL (3.9-5); Calcium 7.4 mg/dL (8.4-10.2)
[2022-03-26 05:30] LABS: Anisocytosis 1+; Band Neutrophils # (Manual) 0.2 K/mm3; Basophils % (Manual) 0.5 % (0.0-1.8); Eosinophils % (Manual) 3.5 % (0.0-4.3); Total Cells Counted 200
[2022-03-26 05:31] LABS: Hypochromasia 1+; Platelet Estimate Consistent w Auto
--- NOTE | 2022-03-26 05:49 | XRay Report ---
CHEST 1 VIEW 03/26/2022 4:56 AM INDICATION / CLINICAL INFORMATION: F/U respiratory failure. COMPARISON: 03/23/2022. FINDINGS: SUPPORT DEVICES: Unchanged. HEART / MEDIASTINUM: Stable. LUNGS / PLEURA: Persistent diffuse bilateral opacity with mild improvement greater on the right. No p neumothorax. ADDITIONAL FINDINGS: No significant additional findings. IMPRESSION: Mild interval improvement. Signer Name: Mauricio Montiel MD Signed: 03/26/2022 5:45 AM Workstation Name: [id number]
[2022-03-26] MEDS: VASOPRESSIN 20 UNIT in SODIUM CHLORIDE 0.9% 100 ML IV SCH ×2 (06:40→17:08)
[2022-03-26] MEDS: MIDODRINE 5 MG TAB PO SCH ×3 (08:06→17:08)
--- NOTE | 2022-03-26 08:46 | Progress Note ---
Assessment and Plan This is a 61-year-old female with known past medical history of Multiple Sclerosis and seizure disorder admitted for sepsis, Hyponatremia, and acute hypoxic respiratory failure requiring ventilatory support Acute Hypoxemic Respiratory Failure, on MVS ARDS Septic shock -2 pressor with MODS Multifocal Pneumonia/CAP- possible aspiration TANIYA C.diff PCR positive Leukemoid reaction with thromocytosis NSTEMI/Elevated Troponin- probable type 2 ischemia Elevated BNP Acute Metabolic Encephalopathy H/o Seizure Disorder Elevated D-Dimer Moderate Protein Calorie Malnutrition Discussed with renal service, the option of HD remains too risky Continue to monitor for bleeding, monitor hemoglobin closely while on heparin infusion Supportive transfusions as clinically indicated to keep HgB >7g/dL Contact isolation for C.diff Discussed in [facility] interdisciplinary rounds -continue to titrate supplemental oxygen to keep SpO2 90-92% -VAP bundle addressed, aspiration precautions HOB >40 -continue lung protective strategies; ARDS net protocol -Bicarbonate for pH <7.2 per ARDS net protocol -continue bronchodilators with pulmonary hygiene per RT -Continue to titrate vasopressor support to keep MAP>65 -Continue Antibiotics per ID- de-escalated to Vancomyin (po and IV), Metronidazole -Continue to trend temperature curve and WCC -CXR, ABG in am - continue accuchecks with glycemic control per SSI (While critically ill target blood glucose of 140-180 mg/dL; avoid hypoglycemia) - avoid nephrotoxins, renally dose all medications - continue to avoid benzodiazepines, reduce the possibility of delirium - Maintenance of sleep-wake cycle, avoid delirium -Continue with enteric nutritional support - VTE prophylaxis- anticoagulation with therapeutic low intensity heparin -Stress ulcer prophylaxis- Famotidine - mobility, off loading and frequent turning per facility protocol to prevent pressure ulcers - Monitor hemodynamics closely - continue other care per attending / other consultants CONDITION: CRITICAL PROGNOSIS: GRAVE CODE STATUS: FULL The high probability of a clinically significant, sudden or life threatening deterioration of the [respiratory, cardiovascular, neurology,renal ] system(s) required my full and direct attention, intervention and personal management. The aggregate critical care time was [35 ] minutes. This time is in addition to time spent performing reported procedures but includes the following: [x] Data Review and interpretation [x] Patient assessment and monitoring of vital signs [x] Documentation [x] Medication orders and management Subjective Date of service: 03/26/22 Principal diagnosis: AHRF; Multifocal Pneumonia; Septic shock; NSTEMI; AMS; Seizures Interval history: follow up fro: Acute hypoxemic resp failure on MVS; Acute encephalopathy; Septic shock; Bilateral pneumonia-aspiration/CAP Severe hyponatremia Seen and examined. Vitals, labs, medications, chart reviewed. Discussed with nursing and respiratory care staff. Vent: ACVC-20/400/+14/ 100 On going episodes of desaturations overnight with increased FIO2, Hypotension on vasopressor support( remains on Levophed and Vasopressin), Bicarbonate infusion initiated for metabolic acidosis Remains on Fentanyl Empiric heparin- low intensity Renal function continue to decline, anuric( 30ml of urine output in the last 24 hours) [place] catheter RIJ CVL Objective Vital Signs - 12hr 03/25/22 03/25/22 03/25/22 21:00 21:15 21:30 Temperature Pulse Rate 78 83 77 Respiratory 15 15 17 Rate Blood Pressure 94/57 100/64 96/66 O2 Sat by Pulse 87 91 93 Oximetry 03/25/22 03/25/22 03/25/22 21:45 22:00 22:15 Temperature Pulse Rate 77 78 82 Respiratory 18 23 17 Rate Blood Pressure 92/61 83/55 83/55 O2 Sat by Pulse 83 L Oximetry 03/25/22 03/25/22 03/25/22 22:31 22:45 23:00 Temperature Pulse Rate 81 85 81 Respiratory 16 22 15 Rate Blood Pressure 100/60 102/66 93/56 O2 Sat by Pulse 72 L 76 L Oximetry 03/25/22 03/25/22 03/25/22 23:15 23:29 23:30 Temperature Pulse Rate 82 82 81 Respiratory 13 17 19 Rate Blood Pressure 94/55 94/55 95/60 O2 Sat by Pulse Oximetry 03/25/22 03/25/22 03/26/22 23:44 23:45 00:00 Temperature 98.8 F Pulse Rate 81 83 84 Respiratory 6 L 18 Rate Blood Pressure 86/59 86/59 O2 Sat by Pulse 98 99 Oximetry 03/26/22 03/26/22 03/26/22 00:01 00:15 00:30 Temperature Pulse Rate 81 92 H 84 Respiratory 18 17 17 Rate Blood Pressure 92/68 100/64 98/63 O2 Sat by Pulse Oximetry 03/26/22 03/26/22 03/26/22 00:45 01:01 01:15 Temperature Pulse Rate 84 86 82 Respiratory 18 17 16 Rate Blood Pressure 85/64 94/67 84/60 O2 Sat by Pulse Oximetry 03/26/22 03/26/22 03/26/22 01:30 01:45 02:00 Temperature Pulse Rate 82 85 87 Respiratory 18 16 15 Rate Blood Pressure 89/65 93/60 95/63 O2 Sat by Pulse Oximetry 03/26/22 03/26/22 03/26/22 02:15 02:30 02:45 Temperature Pulse Rate 82 82 90 Respiratory 16 17 17 Rate Blood Pressure 79/61 96/63 91/62 O2 Sat by Pulse Oximetry 03/26/22 03/26/22 03/26/22 03:00 03:15 03:30 Temperature Pulse Rate 80 82 81 Respiratory 16 17 17 Rate Blood Pressure 97/62 94/56 104/48 O2 Sat by Pulse Oximetry 03/26/22 03/26/22 03/26/22 03:45 04:00 04:15 Temperature 99 F Pulse Rate 83 86 78 Respiratory 22 16 18 Rate Blood Pressure 95/57 106/61 95/60 O2 Sat by Pulse 99 Oximetry 03/26/22 03/26/22 03/26/22 04:30 04:45 04:52 Temperature Pulse Rate 90 82 84 Respiratory 17 18 2 L Rate Blood Pressure 91/61 95/68 95/68 O2 Sat by Pulse 95 Oximetry 03/26/22 03/26/22 03/26/22 05:00 05:15 05:30 Temperature Pulse Rate 81 84 84 Respiratory 18 15 18 Rate Blood Pressure 104/68 99/57 97/65 O2 Sat by Pulse Oximetry 03/26/22 03/26/22 03/26/22 05:45 06:00 06:15 Temperature Pulse Rate 81 81 82 Respiratory 18 22 21 Rate Blood Pressure 96/61 94/52 93/54 O2 Sat by Pulse 81 L Oximetry 03/26/22 03/26/22 03/26/22 06:30 06:45 07:01 Temperature Pulse Rate 82 80 85 Respiratory 19 22 18 Rate Blood Pressure 80/59 86/55 89/52 O2 Sat by Pulse Oximetry 03/26/22 03/26/22 03/26/22 07:13 07:15 07:30 Temperature 97.9 F Pulse Rate 83 83 Respiratory 20 19 Rate Blood Pressure 88/58 79/58 O2 Sat by Pulse 0 L Oximetry 0703/26/22 03/26/22 07:45 08:00 08:15 Temperature Pulse Rate 82 84 81 Respiratory 18 16 18 Rate Blood Pressure 101/53 90/58 78/57 O2 Sat by Pulse 99 Oximetry Constitutional: other (middle aged female with anasarca and mild dyssynchrony on MVS, intuabted) Eyes: non-icteric ENT: oropharynx moist, other (ETT 24 cm BLANCA) Neck: supple, no lymphadenopathy, no JVD Effort: mildly labored Ascultation: Bilateral: rales Percussion: Bilateral: not dull Cardiovascular: regular rate and rhythm, other (S1,S2) Gastrointestinal: normoactive bowel sounds, soft, non-tender Integumentary: other (edema with peeling skin) Extremities: no cyanosis, pulses normal, no ischemia or petechiae, edema (2+ and anasarca ) Neurologic: pupils equal and round, unable to assess Psychiatric: other (unable to assess re: AMS) CBC and BMP: 03/27/22 05:17 03/27/22 05:07 ABG, PT/INR, D-dimer: ABG ABG pH 7.245 pH Units (7.350-7.450) L 03/25/22 22:35 ABG pCO2 43.2 mm Hg 03/25/22 22:35 ABG pO2 176.5 mm Hg (80.0-90.0) H 03/25/22 22:35 ABG O2 Saturation 99.0 % (95.0-99.0) 03/25/22 22:35 PT/INR, D-dimer PT 17.2 Sec. (12.2-14.9) H 03/22/22 09:30 INR 1.25 (0.87-1.13) H 03/22/22 09:30 D-Dimer 787.78 ng/mlDDU (0-234) H 03/10/22 05:45 Abnormal lab findings: Abnormal Labs 03/10/22 03/10/22 03/10/22 01:19 01:25 01:25 WBC RBC Hgb Hct MCH RDW 15.4 H Plt Count Lymph % (Auto) 12.4 L Lymph # (Auto) 1.1 L Seg Neutrophils % 85.9 H Seg Neuts % (Manual) Lymphocytes % (Manual) Nucleated RBC % Seg Neutrophils # Seg Neutrophils # Man Lymphocytes # (Manual) Monocytes # (Manual) Eosinophils # (Manual) Basophils # (Manual) PT INR D-Dimer Heparin Anti-Xa Level ABG pH ABG pO2 59.3 L ABG HCO3 16.7 L ABG O2 Saturation 92.3 L ABG Base Excess -7.8 L ABG Hemoglobin 11.4 L Oxyhemoglobin 90.8 L Sodium 119 L* Potassium 3.1 L Chloride 88.1 L Carbon Dioxide 16 L BUN Creatinine 0.3 L Glucose 146 H POC Glucose Lactic Acid Uric Acid Calcium 8.2 L Phosphorus Magnesium 1.30 L Ferritin ALT 5 L Alkaline Phosphatase Lactate Dehydrogenase Total Creatine Kinase CK-MB (CK-2) Troponin T NT-Pro-B Natriuret Pep Total Protein 5.4 L Albumin 3.6 L Prealbumin Cholesterol LDL Cholesterol Direct HDL Cholesterol Vitamin B12 Folate Urine WBC (Auto) Urine Creatinine Crossmatch 03/10/22 03/10/22 03/10/22 01:25 01:25 01:25 WBC RBC Hgb Hct MCH RDW Plt Count Lymph % (Auto) Lymph # (Auto) Seg Neutrophils % Seg Neuts % (Manual) Lymphocytes % (Manual) Nucleated RBC % Seg Neutrophils # Seg Neutrophils # Man Lymphocytes # (Manual) Monocytes # (Manual) Eosinophils # (Manual) Basophils # (Manual) PT INR D-Dimer Heparin Anti-Xa Level ABG pH ABG pO2 ABG HCO3 ABG O2 Saturation ABG Base Excess ABG Hemoglobin Oxyhemoglobin Sodium Potassium Chloride Carbon Dioxide BUN Creatinine Glucose POC Glucose Lactic Acid 3.60 H* Uric Acid Calcium Phosphorus Magnesium Ferritin ALT Alkaline Phosphatase Lactate Dehydrogenase Total Creatine Kinase CK-MB (CK-2) 4.6 H Troponin T 0.164 H* NT-Pro-B Natriuret Pep 60401 H Total Protein Albumin Prealbumin Cholesterol 259 H LDL Cholesterol Direct 187 H HDL Cholesterol 63 H Vitamin B12 Folate Urine WBC (Auto) Urine Creatinine Crossmatch 03/10/22 03/10/22 03/10/22 02:43 05:45 05:45 WBC RBC Hgb Hct MCH RDW Plt Count Lymph % (Auto) Lymph # (Auto) Seg Neutrophils % Seg Neuts % (Manual) Lymphocytes % (Manual) Nucleated RBC % Seg Neutrophils # Seg Neutrophils # Man Lymphocytes # (Manual) Monocytes # (Manual) Eosinophils # (Manual) Basophils # (Manual) PT INR D-Dimer 787.78 H Heparin Anti-Xa Level ABG pH ABG pO2 ABG HCO3 ABG O2 Saturation ABG Base Excess ABG Hemoglobin Oxyhemoglobin Sodium Potassium Chloride Carbon Dioxide BUN Creatinine Glucose POC Glucose Lactic Acid 3.70 H* 3.10 H* Uric Acid Calcium Phosphorus Magnesium Ferritin ALT Alkaline Phosphatase Lactate Dehydrogenase Total Creatine Kinase CK-MB (CK-2) Troponin T NT-Pro-B Natriuret Pep Total Protein Albumin Prealbumin Cholesterol LDL Cholesterol Direct HDL Cholesterol Vitamin B12 Folate Urine WBC (Auto) Urine Creatinine Crossmatch 03/10/22 03/10/22 03/10/22 05:45 05:45 12:24 WBC RBC Hgb Hct MCH RDW Plt Count Lymph % (Auto) Lymph # (Auto) Seg Neutrophils % Seg Neuts % (Manual) Lymphocytes % (Manual) Nucleated RBC % Seg Neutrophils # Seg Neutrophils # Man Lymphocytes # (Manual) Monocytes # (Manual) Eosinophils # (Manual) Basophils # (Manual) PT INR D-Dimer Heparin Anti-Xa Level ABG pH ABG pO2 ABG HCO3 ABG O2 Saturation ABG Base Excess ABG Hemoglobin Oxyhemoglobin Sodium 124 L Potassium 3.3 L Chloride Carbon Dioxide 11 L BUN Creatinine 0.2 L Glucose POC Glucose Lactic Acid Uric Acid Calcium 6.9 L D Phosphorus Magnesium Ferritin 219.2 H ALT Alkaline Phosphatase Lactate Dehydrogenase 210 H Total Creatine Kinase CK-MB (CK-2) Troponin T NT-Pro-B Natriuret Pep Total Protein Albumin Prealbumin Cholesterol LDL Cholesterol Direct HDL Cholesterol Vitamin B12 Folate Urine WBC (Auto) Urine Creatinine Crossmatch 03/10/22 03/10/22 03/10/22 12:24 12:24 12:24 WBC RBC Hgb Hct MCH RDW Plt Count Lymph % (Auto) Lymph # (Auto) Seg Neutrophils % Seg Neuts % (Manual) Lymphocytes % (Manual) Nucleated RBC % Seg Neutrophils # Seg Neutrophils # Man Lymphocytes # (Manual) Monocytes # (Manual) Eosinophils # (Manual) Basophils # (Manual) PT INR D-Dimer Heparin Anti-Xa Level ABG pH ABG pO2 ABG HCO3 ABG O2 Saturation ABG Base Excess ABG Hemoglobin Oxyhemoglobin Sodium 128 L Potassium Chloride Carbon Dioxide BUN Creatinine Glucose POC Glucose Lactic Acid 2.70 H* Uric Acid Calcium Phosphorus Magnesium Ferritin ALT Alkaline Phosphatase Lactate Dehydrogenase Total Creatine Kinase 901 H CK-MB (CK-2) 15.3 H Troponin T 0.032 H D NT-Pro-B Natriuret Pep Total Protein Albumin Prealbumin Cholesterol LDL Cholesterol Direct HDL Cholesterol Vitamin B12 Folate Urine WBC (Auto) Urine Creatinine Crossmatch 03/10/22 03/10/22 03/10/22 12:45 13:15 18:00 WBC RBC Hgb Hct MCH RDW Plt Count Lymph % (Auto) Lymph # (Auto) Seg Neutrophils % Seg Neuts % (Manual) Lymphocytes % (Manual) Nucleated RBC % Seg Neutrophils # Seg Neutrophils # Man Lymphocytes # (Manual) Monocytes # (Manual) Eosinophils # (Manual) Basophils # (Manual) PT INR D-Dimer Heparin Anti-Xa Level ABG pH 7.315 L ABG pO2 70.1 L ABG HCO3 15.6 L ABG O2 Saturation 93.8 L ABG Base Excess -9.5 L ABG Hemoglobin 11.0 L Oxyhemoglobin 92.4 L Sodium 129 L Potassium Chloride Carbon Dioxide 17 L BUN Creatinine 0.2 L Glucose POC Glucose Lactic Acid Uric Acid 1.6 L Calcium 7.0 L Phosphorus Magnesium Ferritin ALT Alkaline Phosphatase Lactate Dehydrogenase Total Creatine Kinase CK-MB (CK-2) Troponin T NT-Pro-B Natriuret Pep Total Protein Albumin Prealbumin Cholesterol LDL Cholesterol Direct HDL Cholesterol Vitamin B12 Folate Urine WBC (Auto) Urine Creatinine Crossmatch 03/10/22 03/10/22 03/11/22 18:20 21:05 05:00 WBC 13.7 H RBC 3.44 L Hgb 9.6 L Hct 29.0 L D MCH RDW Plt Count Lymph % (Auto) 8.9 L Lymph # (Auto) Seg Neutrophils % 86.6 H Seg Neuts % (Manual) Lymphocytes % (Manual) Nucleated RBC % Seg Neutrophils # 11.8 H Seg Neutrophils # Man Lymphocytes # (Manual) Monocytes # (Manual) Eosinophils # (Manual) Basophils # (Manual) PT INR D-Dimer Heparin Anti-Xa Level ABG pH ABG pO2 116.3 H ABG HCO3 17.2 L ABG O2 Saturation ABG Base Excess -6.4 L ABG Hemoglobin 11.0 L Oxyhemoglobin Sodium Potassium Chloride Carbon Dioxide BUN Creatinine Glucose POC Glucose Lactic Acid Uric Acid Calcium Phosphorus Magnesium Ferritin ALT Alkaline Phosphatase Lactate Dehydrogenase Total Creatine Kinase CK-MB (CK-2) Troponin T NT-Pro-B Natriuret Pep Total Protein Albumin Prealbumin Cholesterol LDL Cholesterol Direct HDL Cholesterol Vitamin B12 Folate Urine WBC (Auto) 105.0 H Urine Creatinine Crossmatch 03/11/22 03/11/22 03/12/22 05:00 Unknown 04:10 WBC RBC Hgb Hct MCH RDW Plt Count Lymph % (Auto) Lymph # (Auto) Seg Neutrophils % Seg Neuts % (Manual) Lymphocytes % (Manual) Nucleated RBC % Seg Neutrophils # Seg Neutrophils # Man Lymphocytes # (Manual) Monocytes # (Manual) Eosinophils # (Manual) Basophils # (Manual) PT INR D-Dimer Heparin Anti-Xa Level ABG pH 7.472 H 7.482 H ABG pO2 65.5 L ABG HCO3 19.8 L ABG O2 Saturation ABG Base Excess -2.9 L ABG Hemoglobin 10.1 L 8.4 L Oxyhemoglobin Sodium 132 L Potassium Chloride Carbon Dioxide 20 L BUN 6 L Creatinine 0.2 L Glucose POC Glucose Lactic Acid Uric Acid Calcium 7.5 L Phosphorus Magnesium Ferritin ALT Alkaline Phosphatase Lactate Dehydrogenase Total Creatine Kinase CK-MB (CK-2) Troponin T NT-Pro-B Natriuret Pep Total Protein Albumin Prealbumin Cholesterol LDL Cholesterol Direct HDL Cholesterol Vitamin B12 Folate Urine WBC (Auto) Urine Creatinine Crossmatch 03/12/22 03/12/22 03/12/22 04:20 04:20 12:25 WBC 13.6 H RBC 3.11 L Hgb 8.7 L Hct 26.1 L MCH RDW Plt Count Lymph % (Auto) Lymph # (Auto) Seg Neutrophils % Seg Neuts % (Manual) Lymphocytes % (Manual) Nucleated RBC % Seg Neutrophils # Seg Neutrophils # Man Lymphocytes # (Manual) Monocytes # (Manual) Eosinophils # (Manual) Basophils # (Manual) PT INR D-Dimer Heparin Anti-Xa Level ABG pH ABG pO2 ABG HCO3 ABG O2 Saturation ABG Base Excess ABG Hemoglobin Oxyhemoglobin Sodium 128 L Potassium 3.2 L Chloride 93.9 L Carbon Dioxide BUN 4 L Creatinine 0.2 L Glucose 103 H POC Glucose 116 H Lactic Acid Uric Acid Calcium 7.4 L Phosphorus 1.10 L Magnesium 2.40 H Ferritin ALT Alkaline Phosphatase Lactate Dehydrogenase Total Creatine Kinase CK-MB (CK-2) Troponin T NT-Pro-B Natriuret Pep Total Protein Albumin Prealbumin Cholesterol LDL Cholesterol Direct HDL Cholesterol Vitamin B12 Folate Urine WBC (Auto) Urine Creatinine Crossmatch 03/12/22 03/12/22 03/12/22 18:40 18:40 18:40 WBC RBC Hgb Hct MCH RDW Plt Count Lymph % (Auto) Lymph # (Auto) Seg Neutrophils % Seg Neuts % (Manual) Lymphocytes % (Manual) Nucleated RBC % Seg Neutrophils # Seg Neutrophils # Man Lymphocytes # (Manual) Monocytes # (Manual) Eosinophils # (Manual) Basophils # (Manual) PT INR D-Dimer Heparin Anti-Xa Level ABG pH ABG pO2 ABG HCO3 ABG O2 Saturation ABG Base Excess ABG Hemoglobin Oxyhemoglobin Sodium Potassium Chloride Carbon Dioxide BUN Creatinine Glucose POC Glucose Lactic Acid Uric Acid Calcium Phosphorus Magnesium Ferritin ALT Alkaline Phosphatase Lactate Dehydrogenase Total Creatine Kinase CK-MB (CK-2) Troponin T NT-Pro-B Natriuret Pep Total Protein Albumin Prealbumin 0.044 L Cholesterol LDL Cholesterol Direct HDL Cholesterol Vitamin B12 1021 H Folate 2.15 L Urine WBC (Auto) Urine Creatinine Crossmatch 03/13/22 03/13/22 03/13/22 04:10 08:00 09:50 WBC 15.0 H RBC 2.82 L Hgb 8.0 L Hct 23.9 L MCH RDW 15.5 H Plt Count Lymph % (Auto) Lymph # (Auto) Seg Neutrophils % Seg Neuts % (Manual) Lymphocytes % (Manual) Nucleated RBC % Seg Neutrophils # Seg Neutrophils # Man Lymphocytes # (Manual) Monocytes # (Manual) Eosinophils # (Manual) Basophils # (Manual) PT INR D-Dimer Heparin Anti-Xa Level ABG pH ABG pO2 98.6 H ABG HCO3 ABG O2 Saturation ABG Base Excess ABG Hemoglobin 8.3 L Oxyhemoglobin Sodium 130 L Potassium Chloride 96.1 L Carbon Dioxide BUN Creatinine 0.4 L D Glucose 148 H POC Glucose Lactic Acid Uric Acid Calcium 7.3 L Phosphorus Magnesium Ferritin ALT Alkaline Phosphatase Lactate Dehydrogenase Total Creatine Kinase CK-MB (CK-2) Troponin T NT-Pro-B Natriuret Pep Total Protein Albumin Prealbumin Cholesterol LDL Cholesterol Direct HDL Cholesterol Vitamin B12 Folate Urine WBC (Auto) Urine Creatinine Crossmatch 03/13/22 03/13/22 03/14/22 20:15 22:59 04:54 WBC 17.0 H RBC 2.79 L Hgb 7.8 L Hct 23.6 L MCH RDW 15.6 H Plt Count Lymph % (Auto) Lymph # (Auto) Seg Neutrophils % Seg Neuts % (Manual) Lymphocytes % (Manual) Nucleated RBC % Seg Neutrophils # Seg Neutrophils # Man Lymphocytes # (Manual) Monocytes # (Manual) Eosinophils # (Manual) Basophils # (Manual) PT INR D-Dimer Heparin Anti-Xa Level ABG pH ABG pO2 ABG HCO3 ABG O2 Saturation ABG Base Excess -2.9 L ABG Hemoglobin 8.0 L Oxyhemoglobin Sodium Potassium Chloride Carbon Dioxide BUN Creatinine Glucose POC Glucose 127 H Lactic Acid Uric Acid Calcium Phosphorus Magnesium Ferritin ALT Alkaline Phosphatase Lactate Dehydrogenase Total Creatine Kinase CK-MB (CK-2) Troponin T NT-Pro-B Natriuret Pep Total Protein Albumin Prealbumin Cholesterol LDL Cholesterol Direct HDL Cholesterol Vitamin B12 Folate Urine WBC (Auto) Urine Creatinine Crossmatch 03/14/22 03/14/22 03/14/22 04:54 16:15 22:59 WBC RBC Hgb Hct MCH RDW Plt Count Lymph % (Auto) Lymph # (Auto) Seg Neutrophils % Seg Neuts % (Manual) Lymphocytes % (Manual) Nucleated RBC % Seg Neutrophils # Seg Neutrophils # Man Lymphocytes # (Manual) Monocytes # (Manual) Eosinophils # (Manual) Basophils # (Manual) PT INR D-Dimer Heparin Anti-Xa Level ABG pH ABG pO2 ABG HCO3 ABG O2 Saturation ABG Base Excess ABG Hemoglobin Oxyhemoglobin Sodium 129 L 128 L Potassium 3.5 L Chloride 97.1 L 97.0 L Carbon Dioxide BUN 24 H 31 H Creatinine 0.5 L Glucose 125 H 114 H POC Glucose 134 H Lactic Acid Uric Acid Calcium 7.0 L 7.0 L Phosphorus Magnesium Ferritin ALT Alkaline Phosphatase Lactate Dehydrogenase Total Creatine Kinase CK-MB (CK-2) Troponin T NT-Pro-B Natriuret Pep Total Protein Albumin Prealbumin Cholesterol LDL Cholesterol Direct HDL Cholesterol Vitamin B12 Folate Urine WBC (Auto) Urine Creatinine Crossmatch 03/15/22 03/15/22 03/15/22 04:10 04:10 05:02 WBC 12.9 H RBC 2.55 L Hgb 7.1 L Hct 21.5 L MCH RDW 15.8 H Plt Count Lymph % (Auto) Lymph # (Auto) Seg Neutrophils % Seg Neuts % (Manual) 88.0 H Lymphocytes % (Manual) 5.0 L Nucleated RBC % Seg Neutrophils # Seg Neutrophils # Man 11.4 H Lymphocytes # (Manual) 0.6 L Monocytes # (Manual) Eosinophils # (Manual) 0.5 H Basophils # (Manual) PT INR D-Dimer Heparin Anti-Xa Level ABG pH ABG pO2 ABG HCO3 ABG O2 Saturation ABG Base Excess ABG Hemoglobin Oxyhemoglobin Sodium 127 L Potassium Chloride 96.3 L Carbon Dioxide 21 L BUN 33 H Creatinine Glucose 126 H POC Glucose 116 H Lactic Acid Uric Acid Calcium 7.4 L Phosphorus 1.20 L Magnesium Ferritin ALT Alkaline Phosphatase Lactate Dehydrogenase Total Creatine Kinase CK-MB (CK-2) Troponin T NT-Pro-B Natriuret Pep Total Protein 5.3 L Albumin 2.1 L Prealbumin Cholesterol LDL Cholesterol Direct HDL Cholesterol Vitamin B12 Folate Urine WBC (Auto) Urine Creatinine Crossmatch 03/15/22 03/15/22 03/15/22 05:55 09:42 11:34 WBC RBC Hgb Hct MCH RDW Plt Count Lymph % (Auto) Lymph # (Auto) Seg Neutrophils % Seg Neuts % (Manual) Lymphocytes % (Manual) Nucleated RBC % Seg Neutrophils # Seg Neutrophils # Man Lymphocytes # (Manual) Monocytes # (Manual) Eosinophils # (Manual) Basophils # (Manual) PT INR D-Dimer Heparin Anti-Xa Level ABG pH ABG pO2 119.0 H ABG HCO3 ABG O2 Saturation ABG Base Excess -3.1 L ABG Hemoglobin 8.2 L Oxyhemoglobin Sodium Potassium Chloride Carbon Dioxide BUN Creatinine Glucose POC Glucose 125 H Lactic Acid Uric Acid Calcium Phosphorus Magnesium Ferritin ALT Alkaline Phosphatase Lactate Dehydrogenase Total Creatine Kinase CK-MB (CK-2) Troponin T NT-Pro-B Natriuret Pep Total Protein Albumin Prealbumin Cholesterol LDL Cholesterol Direct HDL Cholesterol Vitamin B12 Folate Urine WBC (Auto) Urine Creatinine Crossmatch See Detail 03/15/22 03/16/22 03/16/22 20:55 04:50 04:50 WBC 16.9 H RBC 2.53 L Hgb 7.1 L Hct 21.5 L MCH RDW 16.0 H Plt Count Lymph % (Auto) Lymph # (Auto) Seg Neutrophils % Seg Neuts % (Manual) Lymphocytes % (Manual) Nucleated RBC % Seg Neutrophils # Seg Neutrophils # Man Lymphocytes # (Manual) Monocytes # (Manual) Eosinophils # (Manual) Basophils # (Manual) PT INR D-Dimer Heparin Anti-Xa Level ABG pH 7.320 L ABG pO2 122.8 H ABG HCO3 ABG O2 Saturation ABG Base Excess -4.1 L ABG Hemoglobin 7.0 L Oxyhemoglobin Sodium 132 L Potassium Chloride Carbon Dioxide 20 L BUN 44 H Creatinine Glucose 123 H POC Glucose Lactic Acid Uric Acid Calcium 7.6 L Phosphorus Magnesium Ferritin ALT Alkaline Phosphatase Lactate Dehydrogenase Total Creatine Kinase CK-MB (CK-2) Troponin T NT-Pro-B Natriuret Pep Total Protein Albumin Prealbumin Cholesterol LDL Cholesterol Direct HDL Cholesterol Vitamin B12 Folate Urine WBC (Auto) Urine Creatinine Crossmatch 03/16/22 03/16/22 03/16/22 05:42 11:32 23:05 WBC RBC Hgb Hct MCH RDW Plt Count Lymph % (Auto) Lymph # (Auto) Seg Neutrophils % Seg Neuts % (Manual) Lymphocytes % (Manual) Nucleated RBC % Seg Neutrophils # Seg Neutrophils # Man Lymphocytes # (Manual) Monocytes # (Manual) Eosinophils # (Manual) Basophils # (Manual) PT INR D-Dimer Heparin Anti-Xa Level ABG pH ABG pO2 ABG HCO3 ABG O2 Saturation ABG Base Excess ABG Hemoglobin Oxyhemoglobin Sodium Potassium Chloride Carbon Dioxide BUN Creatinine Glucose POC Glucose 113 H 118 H 114 H Lactic Acid Uric Acid Calcium Phosphorus Magnesium Ferritin ALT Alkaline Phosphatase Lactate Dehydrogenase Total Creatine Kinase CK-MB (CK-2) Troponin T NT-Pro-B Natriuret Pep Total Protein Albumin Prealbumin Cholesterol LDL Cholesterol Direct HDL Cholesterol Vitamin B12 Folate Urine WBC (Auto) Urine Creatinine Crossmatch 03/17/22 03/17/22 03/17/22 04:00 04:00 05:00 WBC 19.1 H RBC 2.44 L Hgb 6.6 L Hct 20.6 L MCH 27 L RDW 16.4 H Plt Count Lymph % (Auto) Lymph # (Auto) Seg Neutrophils % Seg Neuts % (Manual) 78.0 H Lymphocytes % (Manual) 2.0 L Nucleated RBC % Seg Neutrophils # Seg Neutrophils # Man 14.9 H Lymphocytes # (Manual) 0.4 L Monocytes # (Manual) 1.3 H Eosinophils # (Manual) 0.6 H Basophils # (Manual) PT INR D-Dimer Heparin Anti-Xa Level ABG pH 7.334 L ABG pO2 132.4 H ABG HCO3 ABG O2 Saturation ABG Base Excess -2.7 L ABG Hemoglobin 9.1 L Oxyhemoglobin Sodium 134 L Potassium Chloride Carbon Dioxide BUN 55 H Creatinine Glucose 125 H POC Glucose Lactic Acid Uric Acid Calcium 8.1 L Phosphorus Magnesium Ferritin ALT Alkaline Phosphatase Lactate Dehydrogenase Total Creatine Kinase CK-MB (CK-2) Troponin T NT-Pro-B Natriuret Pep Total Protein Albumin Prealbumin Cholesterol LDL Cholesterol Direct HDL Cholesterol Vitamin B12 Folate Urine WBC (Auto) Urine Creatinine Crossmatch 03/17/22 03/17/22 03/17/22 05:40 15:30 17:48 WBC RBC Hgb 8.2 L Hct 24.9 L MCH RDW Plt Count Lymph % (Auto) Lymph # (Auto) Seg Neutrophils % Seg Neuts % (Manual) Lymphocytes % (Manual) Nucleated RBC % Seg Neutrophils # Seg Neutrophils # Man Lymphocytes # (Manual) Monocytes # (Manual) Eosinophils # (Manual) Basophils # (Manual) PT INR D-Dimer Heparin Anti-Xa Level ABG pH ABG pO2 ABG HCO3 ABG O2 Saturation ABG Base Excess ABG Hemoglobin Oxyhemoglobin Sodium Potassium Chloride Carbon Dioxide BUN Creatinine Glucose POC Glucose 115 H 117 H Lactic Acid Uric Acid Calcium Phosphorus Magnesium Ferritin ALT Alkaline Phosphatase Lactate Dehydrogenase Total Creatine Kinase CK-MB (CK-2) Troponin T NT-Pro-B Natriuret Pep Total Protein Albumin Prealbumin Cholesterol LDL Cholesterol Direct HDL Cholesterol Vitamin B12 Folate Urine WBC (Auto) Urine Creatinine Crossmatch 03/17/22 03/18/22 03/18/22 23:54 05:04 05:20 WBC RBC Hgb Hct MCH RDW Plt Count Lymph % (Auto) Lymph # (Auto) Seg Neutrophils % Seg Neuts % (Manual) Lymphocytes % (Manual) Nucleated RBC % Seg Neutrophils # Seg Neutrophils # Man Lymphocytes # (Manual) Monocytes # (Manual) Eosinophils # (Manual) Basophils # (Manual) PT INR D-Dimer Heparin Anti-Xa Level ABG pH 7.302 L ABG pO2 71.0 L ABG HCO3 ABG O2 Saturation 94.9 L ABG Base Excess -4.3 L ABG Hemoglobin 9.6 L Oxyhemoglobin 92.9 L Sodium 135 L Potassium Chloride Carbon Dioxide BUN 66 H Creatinine Glucose 122 H POC Glucose 114 H Lactic Acid Uric Acid Calcium 8.2 L Phosphorus Magnesium Ferritin ALT Alkaline Phosphatase Lactate Dehydrogenase Total Creatine Kinase CK-MB (CK-2) Troponin T NT-Pro-B Natriuret Pep Total Protein 5.4 L Albumin 2.0 L Prealbumin Cholesterol LDL Cholesterol Direct HDL Cholesterol Vitamin B12 Folate Urine WBC (Auto) Urine Creatinine Crossmatch 03/18/22 03/18/22 03/18/22 05:20 06:44 12:04 WBC 23.9 H RBC 2.88 L Hgb 8.1 L Hct 25.1 L MCH RDW 16.0 H Plt Count Lymph % (Auto) Lymph # (Auto) Seg Neutrophils % Seg Neuts % (Manual) 89.0 H Lymphocytes % (Manual) 7.5 L Nucleated RBC % Seg Neutrophils # Seg Neutrophils # Man 21.3 H Lymphocytes # (Manual) Monocytes # (Manual) Eosinophils # (Manual) Basophils # (Manual) PT INR D-Dimer Heparin Anti-Xa Level ABG pH ABG pO2 ABG HCO3 ABG O2 Saturation ABG Base Excess ABG Hemoglobin Oxyhemoglobin Sodium Potassium Chloride Carbon Dioxide BUN Creatinine Glucose POC Glucose 107 H 119 H Lactic Acid Uric Acid Calcium Phosphorus Magnesium Ferritin ALT Alkaline Phosphatase Lactate Dehydrogenase Total Creatine Kinase CK-MB (CK-2) Troponin T NT-Pro-B Natriuret Pep Total Protein Albumin Prealbumin Cholesterol LDL Cholesterol Direct HDL Cholesterol Vitamin B12 Folate Urine WBC (Auto) Urine Creatinine Crossmatch 03/19/22 03/19/22 03/19/22 05:15 08:59 08:59 WBC 30.4 H RBC 2.78 L Hgb 7.7 L Hct 24.2 L MCH RDW 16.4 H Plt Count Lymph % (Auto) Lymph # (Auto) Seg Neutrophils % Seg Neuts % (Manual) Lymphocytes % (Manual) Nucleated RBC % Seg Neutrophils # Seg Neutrophils # Man Lymphocytes # (Manual) Monocytes # (Manual) Eosinophils # (Manual) Basophils # (Manual) PT INR D-Dimer Heparin Anti-Xa Level ABG pH 7.341 L ABG pO2 78.1 L ABG HCO3 ABG O2 Saturation ABG Base Excess -4.5 L ABG Hemoglobin 9.5 L Oxyhemoglobin Sodium 132 L Potassium 5.5 H Chloride Carbon Dioxide 19 L BUN 84 H Creatinine Glucose 124 H POC Glucose Lactic Acid Uric Acid Calcium Phosphorus Magnesium Ferritin ALT Alkaline Phosphatase Lactate Dehydrogenase Total Creatine Kinase CK-MB (CK-2) Troponin T NT-Pro-B Natriuret Pep Total Protein Albumin Prealbumin Cholesterol LDL Cholesterol Direct HDL Cholesterol Vitamin B12 Folate Urine WBC (Auto) Urine Creatinine Crossmatch 03/19/22 03/19/22 03/19/22 14:40 14:40 18:37 WBC RBC Hgb Hct MCH RDW Plt Count Lymph % (Auto) Lymph # (Auto) Seg Neutrophils % Seg Neuts % (Manual) Lymphocytes % (Manual) Nucleated RBC % Seg Neutrophils # Seg Neutrophils # Man Lymphocytes # (Manual) Monocytes # (Manual) Eosinophils # (Manual) Basophils # (Manual) PT INR D-Dimer Heparin Anti-Xa Level ABG pH 7.337 L ABG pO2 41.2 L ABG HCO3 ABG O2 Saturation 74.8 L ABG Base Excess -4.5 L ABG Hemoglobin 7.9 L Oxyhemoglobin 72.9 L Sodium Potassium Chloride Carbon Dioxide BUN Creatinine Glucose POC Glucose 120 H Lactic Acid Uric Acid Calcium Phosphorus Magnesium Ferritin ALT Alkaline Phosphatase Lactate Dehydrogenase Total Creatine Kinase CK-MB (CK-2) Troponin T NT-Pro-B Natriuret Pep Total Protein Albumin Prealbumin Cholesterol LDL Cholesterol Direct HDL Cholesterol Vitamin B12 Folate Urine WBC (Auto) Urine Creatinine 34.4 H Crossmatch 03/19/22 03/20/22 03/20/22 23:15 05:20 05:20 WBC 29.5 H RBC 2.76 L Hgb 7.6 L Hct 23.7 L MCH 27 L RDW 16.6 H Plt Count Lymph % (Auto) Lymph # (Auto) Seg Neutrophils % Seg Neuts % (Manual) Lymphocytes % (Manual) Nucleated RBC % Seg Neutrophils # Seg Neutrophils # Man Lymphocytes # (Manual) Monocytes # (Manual) Eosinophils # (Manual) Basophils # (Manual) PT INR D-Dimer Heparin Anti-Xa Level ABG pH ABG pO2 ABG HCO3 ABG O2 Saturation ABG Base Excess ABG Hemoglobin Oxyhemoglobin Sodium Potassium Chloride Carbon Dioxide BUN 96 H Creatinine Glucose 141 H POC Glucose 125 H Lactic Acid Uric Acid Calcium Phosphorus Magnesium Ferritin ALT Alkaline Phosphatase Lactate Dehydrogenase Total Creatine Kinase CK-MB (CK-2) Troponin T NT-Pro-B Natriuret Pep Total Protein Albumin Prealbumin Cholesterol LDL Cholesterol Direct HDL Cholesterol Vitamin B12 Folate Urine WBC (Auto) Urine Creatinine Crossmatch 03/20/22 03/20/22 03/21/22 06:09 10:05 04:00 WBC RBC Hgb Hct MCH RDW Plt Count Lymph % (Auto) Lymph # (Auto) Seg Neutrophils % Seg Neuts % (Manual) Lymphocytes % (Manual) Nucleated RBC % Seg Neutrophils # Seg Neutrophils # Man Lymphocytes # (Manual) Monocytes # (Manual) Eosinophils # (Manual) Basophils # (Manual) PT INR D-Dimer Heparin Anti-Xa Level ABG pH 7.278 L ABG pO2 71.0 L ABG HCO3 ABG O2 Saturation 92.6 L ABG Base Excess ABG Hemoglobin 8.2 L Oxyhemoglobin 90.5 L Sodium 135 L Potassium 5.7 H D Chloride 97.4 L Carbon Dioxide 21 L BUN 104 H Creatinine 1.3 H Glucose 118 H POC Glucose 121 H Lactic Acid Uric Acid Calcium Phosphorus Magnesium Ferritin ALT Alkaline Phosphatase Lactate Dehydrogenase Total Creatine Kinase CK-MB (CK-2) Troponin T NT-Pro-B Natriuret Pep Total Protein Albumin Prealbumin Cholesterol LDL Cholesterol Direct HDL Cholesterol Vitamin B12 Folate Urine WBC (Auto) Urine Creatinine Crossmatch 03/21/22 03/21/22 03/21/22 04:40 15:30 21:00 WBC 25.6 H RBC 2.61 L Hgb 7.3 L Hct 22.8 L MCH RDW 16.8 H Plt Count 462 H Lymph % (Auto) Lymph # (Auto) Seg Neutrophils % Seg Neuts % (Manual) 71.0 H Lymphocytes % (Manual) 2.0 L Nucleated RBC % 1.0 H Seg Neutrophils # Seg Neutrophils # Man 18.2 H Lymphocytes # (Manual) 0.5 L Monocytes # (Manual) 1.8 H Eosinophils # (Manual) 0.8 H Basophils # (Manual) PT INR D-Dimer Heparin Anti-Xa Level ABG pH 7.197 L* 7.284 L ABG pO2 76.6 L 68.6 L ABG HCO3 ABG O2 Saturation 92.8 L ABG Base Excess -5.7 L -3.7 L ABG Hemoglobin 10.0 L 7.6 L Oxyhemoglobin 94.3 L 90.7 L Sodium Potassium Chloride Carbon Dioxide BUN Creatinine Glucose POC Glucose Lactic Acid Uric Acid Calcium Phosphorus Magnesium Ferritin ALT Alkaline Phosphatase Lactate Dehydrogenase Total Creatine Kinase CK-MB (CK-2) Troponin T NT-Pro-B Natriuret Pep Total Protein Albumin Prealbumin Cholesterol LDL Cholesterol Direct HDL Cholesterol Vitamin B12 Folate Urine WBC (Auto) Urine Creatinine Crossmatch 03/22/22 03/22/22 03/22/22 04:10 04:10 09:00 WBC 32.9 H RBC 2.60 L Hgb 7.4 L Hct 22.3 L MCH RDW 16.8 H Plt Count 517 H Lymph % (Auto) Lymph # (Auto) Seg Neutrophils % Seg Neuts % (Manual) Lymphocytes % (Manual) Nucleated RBC % Seg Neutrophils # Seg Neutrophils # Man Lymphocytes # (Manual) Monocytes # (Manual) Eosinophils # (Manual) Basophils # (Manual) PT INR D-Dimer Heparin Anti-Xa Level ABG pH ABG pO2 ABG HCO3 19.9 L ABG O2 Saturation ABG Base Excess -4.9 L ABG Hemoglobin 7.5 L Oxyhemoglobin Sodium Potassium 5.4 H Chloride 97.2 L Carbon Dioxide 21 L BUN 116 H Creatinine 1.6 H Glucose 142 H POC Glucose Lactic Acid Uric Acid Calcium Phosphorus Magnesium Ferritin ALT Alkaline Phosphatase Lactate Dehydrogenase Total Creatine Kinase CK-MB (CK-2) Troponin T NT-Pro-B Natriuret Pep Total Protein Albumin Prealbumin Cholesterol LDL Cholesterol Direct HDL Cholesterol Vitamin B12 Folate Urine WBC (Auto) Urine Creatinine Crossmatch 03/22/22 03/22/22 03/22/22 09:30 13:02 17:49 WBC RBC Hgb Hct MCH RDW Plt Count Lymph % (Auto) Lymph # (Auto) Seg Neutrophils % Seg Neuts % (Manual) Lymphocytes % (Manual) Nucleated RBC % Seg Neutrophils # Seg Neutrophils # Man Lymphocytes # (Manual) Monocytes # (Manual) Eosinophils # (Manual) Basophils # (Manual) PT 17.2 H INR 1.25 H D-Dimer Heparin Anti-Xa Level ABG pH ABG pO2 ABG HCO3 ABG O2 Saturation ABG Base Excess ABG Hemoglobin Oxyhemoglobin Sodium Potassium Chloride Carbon Dioxide BUN Creatinine Glucose POC Glucose 120 H 118 H Lactic Acid Uric Acid Calcium Phosphorus Magnesium Ferritin ALT Alkaline Phosphatase Lactate Dehydrogenase Total Creatine Kinase CK-MB (CK-2) Troponin T NT-Pro-B Natriuret Pep Total Protein Albumin Prealbumin Cholesterol LDL Cholesterol Direct HDL Cholesterol Vitamin B12 Folate Urine WBC (Auto) Urine Creatinine Crossmatch 03/23/22 03/23/22 03/23/22 04:20 04:20 04:25 WBC 37.3 H RBC 2.57 L Hgb 7.2 L Hct 22.3 L MCH RDW 16.6 H Plt Count 580 H Lymph % (Auto) Lymph # (Auto) Seg Neutrophils % Seg Neuts % (Manual) Lymphocytes % (Manual) Nucleated RBC % Seg Neutrophils # Seg Neutrophils # Man Lymphocytes # (Manual) Monocytes # (Manual) Eosinophils # (Manual) Basophils # (Manual) PT INR D-Dimer Heparin Anti-Xa Level ABG pH 7.333 L ABG pO2 70.9 L ABG HCO3 ABG O2 Saturation 93.3 L ABG Base Excess -5.0 L ABG Hemoglobin 7.0 L Oxyhemoglobin 91.2 L Sodium Potassium Chloride Carbon Dioxide 19 L BUN 125 H Creatinine 1.9 H Glucose 133 H POC Glucose Lactic Acid Uric Acid Calcium 8.2 L Phosphorus Magnesium Ferritin ALT Alkaline Phosphatase Lactate Dehydrogenase Total Creatine Kinase CK-MB (CK-2) Troponin T NT-Pro-B Natriuret Pep Total Protein Albumin Prealbumin Cholesterol LDL Cholesterol Direct HDL Cholesterol Vitamin B12 Folate Urine WBC (Auto) Urine Creatinine Crossmatch 03/23/22 03/23/22 03/23/22 05:40 07:25 11:13 WBC RBC Hgb Hct MCH RDW Plt Count Lymph % (Auto) Lymph # (Auto) Seg Neutrophils % Seg Neuts % (Manual) Lymphocytes % (Manual) Nucleated RBC % Seg Neutrophils # Seg Neutrophils # Man Lymphocytes # (Manual) Monocytes # (Manual) Eosinophils # (Manual) Basophils # (Manual) PT INR D-Dimer Heparin Anti-Xa Level 0.29 L ABG pH ABG pO2 ABG HCO3 ABG O2 Saturation ABG Base Excess ABG Hemoglobin Oxyhemoglobin Sodium Potassium Chloride Carbon Dioxide BUN Creatinine Glucose POC Glucose 121 H 112 H Lactic Acid Uric Acid Calcium Phosphorus Magnesium Ferritin ALT Alkaline Phosphatase Lactate Dehydrogenase Total Creatine Kinase CK-MB (CK-2) Troponin T NT-Pro-B Natriuret Pep Total Protein Albumin Prealbumin Cholesterol LDL Cholesterol Direct HDL Cholesterol Vitamin B12 Folate Urine WBC (Auto) Urine Creatinine Crossmatch 03/23/22 03/24/22 03/24/22 23:35 04:25 04:25 WBC RBC Hgb 7.3 L Hct 24.5 L MCH RDW Plt Count Lymph % (Auto) Lymph # (Auto) Seg Neutrophils % Seg Neuts % (Manual) Lymphocytes % (Manual) Nucleated RBC % Seg Neutrophils # Seg Neutrophils # Man Lymphocytes # (Manual) Monocytes # (Manual) Eosinophils # (Manual) Basophils # (Manual) PT INR D-Dimer Heparin Anti-Xa Level ABG pH ABG pO2 ABG HCO3 ABG O2 Saturation ABG Base Excess ABG Hemoglobin Oxyhemoglobin Sodium 136 L Potassium 5.1 H Chloride Carbon Dioxide 18 L BUN 130 H Creatinine 2.1 H Glucose 122 H POC Glucose 114 H Lactic Acid Uric Acid Calcium 8.1 L Phosphorus Magnesium Ferritin ALT Alkaline Phosphatase Lactate Dehydrogenase Total Creatine Kinase CK-MB (CK-2) Troponin T NT-Pro-B Natriuret Pep Total Protein Albumin Prealbumin Cholesterol LDL Cholesterol Direct HDL Cholesterol Vitamin B12 Folate Urine WBC (Auto) Urine Creatinine Crossmatch 03/24/22 03/24/22 03/24/22 04:40 08:40 09:23 WBC 47.4 H* RBC 2.73 L Hgb 7.5 L Hct 24.3 L MCH 27 L RDW 17.0 H Plt Count 667 H Lymph % (Auto) Lymph # (Auto) Seg Neutrophils % Seg Neuts % (Manual) 82.0 H Lymphocytes % (Manual) 6.0 L Nucleated RBC % 4.0 H Seg Neutrophils # Seg Neutrophils # Man 38.9 H Lymphocytes # (Manual) Monocytes # (Manual) 1.4 H Eosinophils # (Manual) 0.5 H Basophils # (Manual) PT INR D-Dimer Heparin Anti-Xa Level 0.18 L ABG pH 7.240 L ABG pO2 96.8 H ABG HCO3 18.1 L ABG O2 Saturation ABG Base Excess -8.6 L ABG Hemoglobin 7.2 L Oxyhemoglobin 94.5 L Sodium Potassium Chloride Carbon Dioxide BUN Creatinine Glucose POC Glucose Lactic Acid Uric Acid Calcium Phosphorus Magnesium Ferritin ALT Alkaline Phosphatase Lactate Dehydrogenase Total Creatine Kinase CK-MB (CK-2) Troponin T NT-Pro-B Natriuret Pep Total Protein Albumin Prealbumin Cholesterol LDL Cholesterol Direct HDL Cholesterol Vitamin B12 Folate Urine WBC (Auto) Urine Creatinine Crossmatch 03/24/22 03/25/22 03/25/22 17:12 04:25 04:40 WBC 49.1 H* RBC 2.60 L Hgb 7.4 L Hct 23.1 L MCH RDW 17.5 H Plt Count 630 H Lymph % (Auto) Lymph # (Auto) Seg Neutrophils % Seg Neuts % (Manual) Lymphocytes % (Manual) Nucleated RBC % Seg Neutrophils # Seg Neutrophils # Man Lymphocytes # (Manual) Monocytes # (Manual) Eosinophils # (Manual) Basophils # (Manual) PT INR D-Dimer Heparin Anti-Xa Level ABG pH 7.255 L ABG pO2 65.1 L ABG HCO3 18.0 L ABG O2 Saturation 89.7 L ABG Base Excess -8.5 L ABG Hemoglobin 7.2 L Oxyhemoglobin 87.4 L Sodium Potassium Chloride Carbon Dioxide BUN Creatinine Glucose POC Glucose 126 H Lactic Acid Uric Acid Calcium Phosphorus Magnesium Ferritin ALT Alkaline Phosphatase Lactate Dehydrogenase Total Creatine Kinase CK-MB (CK-2) Troponin T NT-Pro-B Natriuret Pep Total Protein Albumin Prealbumin Cholesterol LDL Cholesterol Direct HDL Cholesterol Vitamin B12 Folate Urine WBC (Auto) Urine Creatinine Crossmatch 03/25/22 03/25/22 03/25/22 04:40 04:40 11:12 WBC RBC Hgb Hct MCH RDW Plt Count Lymph % (Auto) Lymph # (Auto) Seg Neutrophils % Seg Neuts % (Manual) Lymphocytes % (Manual) Nucleated RBC % Seg Neutrophils # Seg Neutrophils # Man Lymphocytes # (Manual) Monocytes # (Manual) Eosinophils # (Manual) Basophils # (Manual) PT INR D-Dimer Heparin Anti-Xa Level 0.22 L ABG pH ABG pO2 ABG HCO3 ABG O2 Saturation ABG Base Excess ABG Hemoglobin Oxyhemoglobin Sodium 136 L Potassium 5.3 H Chloride 95.7 L Carbon Dioxide 18 L BUN 135 H Creatinine 2.2 H Glucose 121 H POC Glucose 123 H Lactic Acid Uric Acid Calcium 7.8 L Phosphorus Magnesium Ferritin ALT Alkaline Phosphatase Lactate Dehydrogenase Total Creatine Kinase CK-MB (CK-2) Troponin T NT-Pro-B Natriuret Pep Total Protein Albumin Prealbumin Cholesterol LDL Cholesterol Direct HDL Cholesterol Vitamin B12 Folate Urine WBC (Auto) Urine Creatinine Crossmatch 03/25/22 03/25/22 03/26/22 16:32 22:35 03:30 WBC 39.8 H RBC 2.61 L Hgb 7.3 L Hct 23.6 L MCH RDW 17.4 H Plt Count 600 H Lymph % (Auto) Lymph # (Auto) Seg Neutrophils % Seg Neuts % (Manual) 81.0 H Lymphocytes % (Manual) 6.5 L Nucleated RBC % 11.0 H Seg Neutrophils # Seg Neutrophils # Man 32.2 H Lymphocytes # (Manual) Monocytes # (Manual) 2.8 H Eosinophils # (Manual) 1.4 H Basophils # (Manual) 0.2 H PT INR D-Dimer Heparin Anti-Xa Level ABG pH 7.245 L ABG pO2 176.5 H ABG HCO3 18.3 L ABG O2 Saturation ABG Base Excess -8.3 L ABG Hemoglobin 7.3 L Oxyhemoglobin Sodium Potassium Chloride Carbon Dioxide BUN Creatinine Glucose POC Glucose 119 H Lactic Acid Uric Acid Calcium Phosphorus Magnesium Ferritin ALT Alkaline Phosphatase Lactate Dehydrogenase Total Creatine Kinase CK-MB (CK-2) Troponin T NT-Pro-B Natriuret Pep Total Protein Albumin Prealbumin Cholesterol LDL Cholesterol Direct HDL Cholesterol Vitamin B12 Folate Urine WBC (Auto) Urine Creatinine Crossmatch 03/26/22 03/26/22 03:30 03:30 WBC RBC Hgb Hct MCH RDW Plt Count Lymph % (Auto) Lymph # (Auto) Seg Neutrophils % Seg Neuts % (Manual) Lymphocytes % (Manual) Nucleated RBC % Seg Neutrophils # Seg Neutrophils # Man Lymphocytes # (Manual) Monocytes # (Manual) Eosinophils # (Manual) Basophils # (Manual) PT INR D-Dimer Heparin Anti-Xa Level 0.15 L ABG pH ABG pO2 ABG HCO3 ABG O2 Saturation ABG Base Excess ABG Hemoglobin Oxyhemoglobin Sodium 134 L Potassium Chloride 93.0 L Carbon Dioxide 19 L BUN 136 H Creatinine 2.3 H Glucose 146 H POC Glucose Lactic Acid Uric Acid Calcium 7.4 L Phosphorus Magnesium Ferritin ALT Alkaline Phosphatase 153 H Lactate Dehydrogenase Total Creatine Kinase CK-MB (CK-2) Troponin T NT-Pro-B Natriuret Pep Total Protein 4.7 L Albumin 2.1 L Prealbumin Cholesterol LDL Cholesterol Direct HDL Cholesterol Vitamin B12 Folate Urine WBC (Auto) Urine Creatinine Crossmatch Allied health notes reviewed: RT
[2022-03-26] MEDS: levETIRAcetam 500 MG/5 ML ORAL LIQD FEEDTUBE SCH ×2 (09:01→21:19)
[2022-03-26] MEDS: FAMOTIDINE 10 MG TAB FEEDTUBE SCH (09:01)
--- NOTE | 2022-03-26 09:06 | Progress Note ---
Assessment and Plan Assessment and plan: neuro-AMS fentanyl for comfort see titration has cough and melba reflexes; no mvvement to noxious stimulin on exam on keppra need goals of care discussions with family/children CV- hypotension /septic shock MAP > 65 vaso and NE see titration also on midodrine TID SR Resp- acute hypoxic unruly failure remains ventilated [facility] 14-400-14-.90 see RT section for weaning sat probe not correlating will wean FiO2 and leave PEEP minimal secretions today with scop. patches am xray noted ABG in AM GI- protien tati malnutrition; cdiff; diarrhea TF per nutrition BMS with 150 ml stool over 24 hours consider d/c if continues to decrease cdiff pos antibiotics narrowed today PPI -ARF; hypoK; volume overload medina to be dc bladder scan QS trend Cr would not tolerated HD nephrology following d/c bicarb after currrent drip pos 1.4L over 24 hours AM labs noted AM labs ordered Heme- nap hep drip- VTE hgb stable ID- cdiff narrowed antibiotics today ID following cdif pos 7-8 flgul and po vanc to continue trend temp and WBC will add stress dose steroids Endo stress hyperglycemia BG control as needed avoid hypoglycemia Disposition Plan: continue critical care Total Time Spent with Patient (Minutes): 60 min critical care History Interval history: forrest overnight Hospitalist Physical - Constitutional Vitals: Temp Pulse Resp BP Pulse Ox 97.9 F 81 18 78/57 99 03/26/22 07:13 03/26/22 08:15 03/26/22 08:15 03/26/22 08:15 03/26/22 08:00 General appearance: Present: no acute distress, other (Intubated and Sedated) - EENT Eyes: Present: PERRL ENT: clear oral mucosa - Neck Neck: Present: supple, normal ROM - Respiratory Respiratory effort: normal, other (vent) - Cardiovascular Rhythm: regular - Extremities Extremity abnormal: edema - Abdominal General gastrointestinal: soft - Integumentary Integumentary: Present: clear, warm, dry - Psychiatric Psychiatric: other - Allied Health Allied health notes reviewed: nursing HEART Score - HEART Score Troponin: Troponin T 0.032 ng/mL (0.00-0.029) H D 03/10/22 12:24 Results - Labs CBC & Chem 7: 03/26/22 03:30 03/26/22 03:30 Labs: Laboratory Last Values WBC 39.8 K/mm3 (4.5-11.0) H 03/26/22 03:30 RBC 2.61 M/mm3 (3.65-5.03) L 03/26/22 03:30 Hgb 7.3 gm/dl (10.1-14.3) L 03/26/22 03:30 Hct 23.6 % (30.3-42.9) L 03/26/22 03:30 MCV 90 fl (79-97) 03/26/22 03:30 MCH 28 pg (28-32) 03/26/22 03:30 MCHC 31 % (30-34) 03/26/22 03:30 RDW 17.4 % (13.2-15.2) H 03/26/22 03:30 Plt Count 600 K/mm3 (140-440) H 03/26/22 03:30 Lymph % (Auto) 8.9 % (13.4-35.0) L 03/11/22 05:00 [place] % (Auto) 4.2 % (0.0-7.3) 03/11/22 05:00 Eos % (Auto) 0.1 % (0.0-4.3) 03/11/22 05:00 Baso % (Auto) 0.2 % (0.0-1.8) 03/11/22 05:00 Lymph # (Auto) 1.2 K/mm3 (1.2-5.4) 03/11/22 05:00 [place] # (Auto) 0.6 K/mm3 (0.0-0.8) 03/11/22 05:00 Eos # (Auto) 0.0 K/mm3 (0.0-0.4) 03/11/22 05:00 Baso # (Auto) 0.0 K/mm3 (0.0-0.1) 03/11/22 05:00 Add Manual Diff Complete 03/26/22 03:30 Total Counted 200 03/26/22 03:30 Seg Neutrophils % 86.6 % (40.0-70.0) H 03/11/22 05:00 Seg Neuts % (Manual) 81.0 % (40.0-70.0) H 03/26/22 03:30 Band Neutrophils % 0.5 % 07/11/22 03:30 Lymphocytes % (Manual) 6.5 % (13.4-35.0) L 03/26/22 03:30 Reactive Lymphs % (Man) 1.0 % 03/26/22 03:30 Monocytes % (Manual) 7.0 % (0.0-7.3) 03/26/22 03:30 Eosinophils % (Manual) 3.5 % (0.0-4.3) 03/26/22 03:30 Basophils % (Manual) 0.5 % (0.0-1.8) 03/26/22 03:30 Metamyelocytes % 0 % 03/26/22 03:30 Myelocytes % 0 % 03/26/22 03:30 Promyelocytes % 0 % 03/26/22 03:30 Blast Cells % 0 % 03/26/22 03:30 Nucleated RBC % 11.0 % (0.0-0.9) H 03/26/22 03:30 Seg Neutrophils # 11.8 K/mm3 (1.8-7.7) H 03/11/22 05:00 Seg Neutrophils # Man 32.2 K/mm3 (1.8-7.7) H 03/26/22 03:30 Band Neutrophils # 0.2 K/mm3 03/26/22 03:30 Lymphocytes # (Manual) 2.6 K/mm3 (1.2-5.4) 03/26/22 03:30 Abs React Lymphs (Man) 0.4 K/mm3 03/26/22 03:30 Monocytes # (Manual) 2.8 K/mm3 (0.0-0.8) H 03/26/22 03:30 Eosinophils # (Manual) 1.4 K/mm3 (0.0-0.4) H 03/26/22 03:30 Basophils # (Manual) 0.2 K/mm3 (0.0-0.1) H 03/26/22 03:30 Metamyelocytes # 0.0 K/mm3 03/26/22 03:30 Myelocytes # 0.0 K/mm3 03/26/22 03:30 Promyelocytes # 0.0 K/mm3 03/26/22 03:30 Blast Cells # 0.0 K/mm3 03/26/22 03:30 WBC Morphology Not Reportable 03/26/22 03:30 Hypersegmented Neuts Not Reportable 03/26/22 03:30 Hyposegmented Neuts Not Reportable 03/26/22 03:30 Hypogranular Neuts Not Reportable 03/26/22 03:30 Smudge Cells Not Reportable 03/26/22 03:30 Toxic Granulation Not Reportable 03/26/22 03:30 Toxic Vacuolation Not Reportable 03/26/22 03:30 Dohle Bodies Not Reportable 03/26/22 03:30 Pelger-Huet Anomaly Not Reportable 03/26/22 03:30 Luis Rods Not Reportable 03/26/22 03:30 Platelet Estimate Consistent w auto 03/26/22 03:30 Clumped Platelets Not Reportable 03/26/22 03:30 Plt Clumps, EDTA Not Reportable 03/26/22 03:30 Large Platelets Not Reportable 03/26/22 03:30 Giant Platelets Not Reportable 03/26/22 03:30 Platelet Satelliting Not Reportable 03/26/22 03:30 Plt Morphology Comment Not Reportable 03/26/22 03:30 RBC Morphology Not Reportable 03/26/22 03:30 Dimorphic RBCs Not Reportable 03/26/22 03:30 Polychromasia Not Reportable 03/26/22 03:30 Hypochromasia 1+ 03/26/22 03:30 Poikilocytosis Not Reportable 03/26/22 03:30 Anisocytosis 1+ 03/26/22 03:30 Microcytosis Not Reportable 03/26/22 03:30 Macrocytosis Not Reportable 03/26/22 03:30 Spherocytes Not Reportable 03/26/22 03:30 Pappenheimer Bodies Not Reportable 03/26/22 03:30 Sickle Cells Not Reportable 03/26/22 03:30 Target Cells Not Reportable 03/26/22 03:30 Tear Drop Cells Not Reportable 03/26/22 03:30 Ovalocytes Not Reportable 03/26/22 03:30 Helmet Cells Not Reportable 03/26/22 03:30 Nevarez-Gaastra Bodies Not Reportable 03/26/22 03:30 Poth Rings Not Reportable 03/26/22 03:30 [place] Cells Not Reportable 03/26/22 03:30 Bite Cells Not Reportable 03/26/22 03:30 Crenated Cell Not Reportable 03/26/22 03:30 Elliptocytes Not Reportable 03/26/22 03:30 Acanthocytes (Spur) Not Reportable 03/26/22 03:30 Rouleaux Not Reportable 03/26/22 03:30 Hemoglobin C Crystals Not Reportable 03/26/22 03:30 Schistocytes Not Reportable 03/26/22 03:30 Malaria parasites Not Reportable 03/26/22 03:30 Tani Bodies Not Reportable 03/26/22 03:30 Hem Pathologist Commnt No 03/26/22 03:30 PT 17.2 Sec. (12.2-14.9) H 03/22/22 09:30 INR 1.25 (0.87-1.13) H 03/22/22 09:30 APTT 33.4 Sec. (24.2-36.6) 03/22/22 09:30 D-Dimer 787.78 ng/mlDDU (0-234) H 03/10/22 05:45 Heparin Anti-Xa Level 0.15 U.I./ml (0.3-0.7) L 03/26/22 03:30 ABG pH 7.245 pH Units (7.350-7.450) L 03/25/22 22:35 ABG pCO2 43.2 mm Hg 03/25/22 22:35 ABG pO2 176.5 mm Hg (80.0-90.0) H 03/25/22 22:35 ABG HCO3 18.3 mmol/L (20.0-26.0) L 03/25/22 22:35 ABG O2 Saturation 99.0 % (95.0-99.0) 03/25/22 22:35 ABG O2 Content 10.4 (0.0-44) 03/25/22 22:35 ABG Base Excess -8.3 mmol/L (-2.0-3.0) L 03/25/22 22:35 ABG Hemoglobin 7.3 gm/dl (12.0-16.0) L 03/25/22 22:35 ABG Carboxyhemoglobin 2.0 % (0.0-5.0) 03/25/22 22:35 ABG Methemoglobin 0.4 % (0.0-1.5) 03/25/22 22:35 Oxyhemoglobin 96.6 % (95.0-99.0) 03/25/22 22:35 FiO2 100 % 03/25/22 22:35 Sodium 134 mmol/L (137-145) L 03/26/22 03:30 Potassium 3.9 mmol/L (3.6-5.0) D 03/26/22 03:30 Chloride 93.0 mmol/L (98-107) L 03/26/22 03:30 Carbon Dioxide 19 mmol/L (22-30) L 03/26/22 03:30 Anion Gap 26 mmol/L 03/26/22 03:30 BUN 136 mg/dL (7-17) H 03/26/22 03:30 Creatinine 2.3 mg/dL (0.6-1.2) H 03/26/22 03:30 Estimated GFR 22 ml/min 03/26/22 03:30 BUN/Creatinine Ratio 59 % 03/26/22 03:30 Glucose 146 mg/dL (65-100) H 03/26/22 03:30 POC Glucose 119 mg/dL (70-105) H 03/25/22 16:32 Osmolality 285 Mosm/kg 03/10/22 12:24 Lactic Acid 0.90 mmol/L (0.7-2.0) 03/18/22 05:20 Uric Acid 1.6 mg/dL (3.5-7.6) L 03/10/22 13:15 Calcium 7.4 mg/dL (8.4-10.2) L 03/26/22 03:30 Phosphorus 3.70 mg/dL (2.5-4.5) 03/18/22 05:20 Magnesium 2.00 mg/dL (1.7-2.3) 03/18/22 05:20 Ferritin 219.2 ng/mL (10.0-200.0) H 03/10/22 05:45 Total Bilirubin 0.20 mg/dL (0.1-1.2) 03/26/22 03:30 AST 40 units/L (5-40) 03/26/22 03:30 ALT 13 units/L (7-56) 03/26/22 03:30 Alkaline Phosphatase 153 units/L (35-129) H 03/26/22 03:30 Lactate Dehydrogenase 210 units/L (91-180) H 03/10/22 05:45 Total Creatine Kinase 901 units/L (30-135) H 03/10/22 12:24 CK-MB (CK-2) 15.3 ng/mL (0.0-4.0) H 03/10/22 12:24 CK-MB (CK-2) Rel Index 1.6 (0-4) 03/10/22 12:24 Troponin T 0.032 ng/mL (0.00-0.029) H D 03/10/22 12:24 C-Reactive Protein < 0.03 mg/dL (0.00-1.30) 03/10/22 05:45 NT-Pro-B Natriuret Pep 11290 pg/mL (0-900) H 03/10/22 01:25 Total Protein 4.7 g/dL (6.3-8.2) L 03/26/22 03:30 Albumin 2.1 g/dL (3.9-5) L 03/26/22 03:30 Albumin/Globulin Ratio 0.8 % 03/26/22 03:30 Prealbumin 0.044 g/L (0.200-0.400) L 03/12/22 18:40 Triglycerides 47 mg/dL (2-149) 03/10/22 01:25 Cholesterol 259 mg/dL (50-199) H 03/10/22 01:25 LDL Cholesterol Direct 187 mg/dL (50-130) H 03/10/22 01:25 HDL Cholesterol 63 mg/dL (40-59) H 03/10/22 01:25 Cholesterol/HDL Ratio 4.11 % 03/10/22 01:25 Lipase 15 units/L (13-60) 03/10/22 01:25 Vitamin B1 28 nmol/L (8-30) 03/13/22 08:00 Vitamin B12 1021 pg/mL (211-911) H 03/12/22 18:40 Folate 2.15 ng/mL (7.3-26.0) L 03/12/22 18:40 Procalcitonin 3.92 ng/mL (<0.15) 03/10/22 05:45 TSH 1.290 mlU/mL (0.270-4.200) 03/12/22 18:40 Urine Color Yellow (Yellow) 03/10/22 18:20 Urine Turbidity Clear (Clear) 03/10/22 18:20 Urine pH 6.0 (5.0-7.0) 03/10/22 18:20 Ur Specific [place] 1.010 (1.003-1.030) 03/10/22 18:20 Urine Protein <15 mg/dl mg/dL (Negative) 03/10/22 18:20 Urine Glucose (UA) Neg mg/dL (Negative) 03/10/22 18:20 Urine Ketones Tr mg/dL (Negative) 03/10/22 18:20 Urine Blood Sm (Negative) 03/10/22 18:20 Urine Nitrite Neg (Negative) 03/10/22 18:20 Urine Bilirubin Neg (Negative) 03/10/22 18:20 Urine Urobilinogen < 2.0 mg/dL (<2.0) 03/10/22 18:20 Ur Leukocyte Esterase Lg (Negative) 03/10/22 18:20 Urine WBC (Auto) 105.0 /HPF (0.0-6.0) H 03/10/22 18:20 Urine RBC (Auto) 2.0 /HPF (0.0-6.0) 03/10/22 18:20 U Epithel Cells (Auto) < 1.0 /HPF (0-13.0) 03/10/22 18:20 Urine Bacteria (Auto) 1+ /HPF (Negative) 03/10/22 18:20 Urine Osmolality 368 Mosm/kg 03/10/22 18:20 Urine Creatinine 34.4 mg/dL (0.1-20.0) H 03/19/22 14:40 Urine Sodium 18 mmol/L 03/19/22 14:40 Random Vancomycin 24.4 ug/mL (0-40.0) 03/26/22 03:30 Urine Opiates Screen Presumptive positive 03/10/22 18:20 Urine Methadone Screen Presumptive negative 03/10/22 18:20 Ur Barbiturates Screen Presumptive negative 03/10/22 18:20 Ur Phencyclidine Scrn Presumptive negative 03/10/22 18:20 Ur Amphetamines Screen Presumptive negative 03/10/22 18:20 U Benzodiazepines Scrn Presumptive negative 03/10/22 18:20 Urine Cocaine Screen Presumptive negative 03/10/22 18:20 U Marijuana (THC) Screen Presumptive negative 03/10/22 18:20 Drugs of Abuse Note Disclamer 03/10/22 18:20 Copper 118 mcg/dL (70-175) 03/12/22 18:40 Syphilis IgG/IgM Ab Nonreactive (NonReactive) 03/12/22 18:40 C. difficile Tox (PCR) Positive (Negative) 03/23/22 06:30 SARS-CoV-2 (PCR) Negative (Negative) 03/10/22 09:50 Blood Type O POSITIVE 03/15/22 09:42 Antibody Screen Negative 03/15/22 09:42 Crossmatch See Detail 03/15/22 09:42 Medina/IV: Voiding Method Indwelling Catheter Active Medications - Current Medications Current Medications: Generic Name Dose Route Start Last Admin Trade Name Freq PRN Reason Stop Dose Admin Acetaminophen 650 mg 03/13/22 05:50 03/19/22 18:38 Acetaminophen 325 Mg/10.15 Ml Oral Liqd Unit Dose FEEDTUBE 650 mg Q6H PRN Administration Non Cardiac Pain or Temp>100.5 Bisacodyl 10 mg 03/15/22 10:00 Bisacodyl 5 Mg Tab PO QDAY PRN Constipation Famotidine 10 mg 03/22/22 10:00 03/26/22 09:01 Famotidine 10 Mg Tab FEEDTUBE 10 mg BID SHAHBAZ Administration Fentanyl 50 mcg 03/10/22 10:58 03/14/22 20:48 Fentanyl 100 Mcg/2 Ml Inj IV 50 mcg Q10MIN PRN Administration ANALGESIA Hydrophilic Ointment 1 applic 03/10/22 11:03 Lip Therapy Vaseline TP Q2HR PRN Dry Lips Fentanyl Citrate 2,000 mcg in 100 mls @ 4.16 mls/hr 03/10/22 11:00 03/26/22 06:40 Fentanyl Drip Premix IV 3 mcg/kg/hr TITR SHAHBAZ 12.48 mls/hr Administration Protocol 1 MCG/KG/HR NORepinephrine/NS 8 MG-250 ML 8 mg in 250 mls @ 3.75 mls/hr 03/10/22 11:00 03/26/22 00:06 Norepinephrine/Ns 8 Mg-250 Ml (Double Conc) IV 12 mcg/min TITRATE SHAHBAZ 22.5 mls/hr Administration Protocol 2 MCG/MIN Vasopressin 20 unit/ Sodium 101 mls @ 9.09 mls/hr 03/21/22 15:00 03/26/22 06:40 Chloride IV 0.03 units/min TITR SHAHBAZ 9.09 mls/hr Administration Protocol 0.03 UNITS/MIN Levofloxacin/Dextrose 750 mg in 150 mls @ 100 mls/hr 03/23/22 12:00 03/25/22 11:46 Levaquin 750mg/150ml IV 03/27/22 13:29 100 mls/hr Q48H SHAHBAZ Administration Protocol Heparin Sodium/Sodium Chloride 25,000 unit in 500 mls @ 24 mls/hr 03/22/22 09:00 03/25/22 09:35 Heparin/ 0.45% Nacl-25,000 Unit/500 Ml IV 1,000 units/hr TITR SHAHBAZ 20 mls/hr Administration Protocol 1,200 UNITS/HR Metronidazole 500 mg in 100 mls @ 100 mls/hr 03/22/22 09:00 03/26/22 08:05 Flagyl 500 Mg/100 Ml IV 100 mls/hr Q8H SHAHBAZ Administration Protocol Sodium Bicarbonate 150 meq/ 1,150 mls @ 50 mls/hr 03/24/22 05:11 03/24/22 05:30 Dextrose IV 50 mls/hr DIRECT SHAHBAZ Administration Meropenem/Sodium Chloride 1 gram in 100 mls @ 100 mls/hr 03/26/22 22:00 Merrem/Ns 1 Gram/100 Ml IV Q24H SHAHBAZ Protocol Levetiracetam 500 mg 03/12/22 10:00 03/26/22 09:01 Levetiracetam 500 Mg/5 Ml Oral Liqd FEEDTUBE 500 mg BID SHAHBAZ Administration Magnesium Hydroxide 30 ml 03/10/22 02:56 Magnesium Hydroxide (Mom) Oral Liqd Udc PO Q4H PRN Constipation Midodrine 15 mg 03/21/22 16:00 03/26/22 08:06 Midodrine 5 Mg Tab PO 15 mg TID@0800,1200,1600 SHAHBAZ Administration Multi-Ingred Cream/Lotion/Oil/Oint 1 applic 03/10/22 11:03 Mineral Oil/Petrolatum, White Ophth Oint 3.5 Gm OU Q4HR PRN Dry Eye(s) Ondansetron HCl 4 mg 03/10/22 02:56 Ondansetron 4 Mg/2 Ml Inj IV Q8H PRN Nausea And Vomiting Scopolamine 1 each 03/21/22 10:00 03/24/22 11:05 Scopolamine Transdermal Patch 72 Hr TD 1 each Q3D SHAHBAZ Administration Sodium Chloride 10 ml 03/10/22 10:00 03/26/22 09:02 Sodium Chloride 0.9% 10 Ml Flush Syringe IV 10 ml BID SHAHBAZ Administration Sodium Chloride 10 ml 03/10/22 02:56 Sodium Chloride 0.9% 10 Ml Flush Syringe IV PRN PRN LINE FLUSH Vancomycin HCl 500 mg 03/22/22 12:00 03/26/22 06:00 Vancomycin 250 Mg/10 Ml Oral Liqd PO 500 mg Q6HR SHAHBAZ Administration Protocol Nutrition/Malnutrition Assess - Dietary Evaluation Nutrition/Malnutrition Findings: Nutrition Notes Start: 03/10/22 12:22 Freq: Status: Active Protocol: Document 03/21/22 15:08 JOSH (Rec: 03/21/22 15:18 JOSH [email or web address]) Nutrition Notes Initial or Follow up Reassessment Current Diagnosis Hypertension,Respiratory Failure,Malnutrition Other Pertinent Diagnosis MS, CAP, Seizure, Metabolic Encephalopathy, Septic Shock, NSTEMI, UTI ... Current Diet TF-Vital AF 1.2 Tati @ 60 ml/hr (since D 03/10). Labs/Tests 03/21: Na 135, K 5.7, Cl 97.4, CO2 21, BUN 104, Crea 1.3, Glu 118. Pertinent Medications 03/21: Vasopressin 20U, others nutritionally unremarkable. Height 5 ft 6 in Weight 83.2 kg [place] Body Weight (kg) 59.09 BMI 29.6 Weight change and time frame No body weight change reported in 11 days. Weight Status Overweight Subjective/Other Information RD consult for routine F/U on TF tolerance/continuation. TF continues as prescribed, and well tolerated, according to RN notes. Pt remains on Mechanical Ventilation, O2 saturation @ 96%, according to Physical Assessment History notes. Pt presents bilateral-LE pitting edema 3+, according to Physical Assessment History notes. Pt presents an unspecified area of concern for skin risk at the time, according to Physical Assessment History notes. Percent of energy/protein needs met: Prescribed TF-Vital AF 1.2 Tati @ 60 ml/hr provides for energy/protein needs (1,728 Kcal/108 g) during LOS, 100% Kcal; 100% AA. Burn Absent Trauma Absent GI Symptoms None Food Allergy No Skin Integrity/Comment Unspecified area of concern. Current % PO Other Minimum of two criteria No Fluid Accumulation Moderate to Severe (severe) Reduced Locom[employer] Cr[employer] Strength N/A (non-severe) Protein-Calorie Malnutrition N\A #1 Nutrition Diagnosis Inadequate oral intake Diagnosis Progress(for reassessment Continues documentation) Is patient on ventilator? Yes Is Patient Ambulatory and/or Out of Bed No REE-([facility]-confined to bed) 1713.168 Calculation Used for Recommendations [facility] Additional Notes Protein: 1-1.2 g/Kg ABW; 100- 166 g/day. Fluids: 1 ml/Kcal, or as per MD. Nutrition Intervention Nutrition Support: Continue TF-Vital AF 1.2 Tati @ 60 ml/hr. Flush: 100 ml water Q 4 hr, or as per MD. Kcal 1,728 Protein (gm) 108 Carbohydrates (gm) 159 Fat (gm) 78 Fluid (mL) 1,168 Fiber (gm) 7 % RDI: 100% Kcal; 100% AA. Goal #1 Provide at least 75% of energy /protein needs through Enteral Feeding during LOS. Follow-Up By: 03/28/22 Additional Comments Continue monitoring TF tolerance, Ventilation Status, Pressor support, and BM. - Malnutrition Assessment Minimum of two criteria: Yes - Attestation Statement I have reviewed and agreed w/ Malnutrition eval & tx plan: Yes
[2022-03-26] MEDS: HYDROCORTISONE SOD SUCC 100 MG/2 ML VIAL IV SCH ×2 (09:59→21:21)
[2022-03-26] MEDS: FAMOTIDINE 20 MG/2 ML INJ IV SCH (09:59)
--- NOTE | 2022-03-26 10:36 | Progress Note ---
Assessment and Plan TANIYA - Worsening mainly BUN with minima increase in Cr still consistent with prerenal state. Suggest to hold Hydrocortisol for now & optimize pressors for better BP Electrolyte Imbalance - F/u mild Acidosis Hypotension - On multiple vasopressors. Titrate as tolerated for better SBP Edema with Volume overload - Plan for diuretics when BP improves Anemia - F/u H/H closely, consider PRBC Pneumonia/Resp Failure - Vent Mx per Pulm Multiple Sclerosis - F/u Mx per Neuro Subjective Date of service: 03/26/22 Principal diagnosis: AHRF; Multifocal Pneumonia; Septic shock; NSTEMI; AMS; Seizures Interval history: Remains on vent & sedated Objective - Vital Signs Vital signs: Vital Signs - 12hr 03/25/22 03/25/22 03/25/22 22:45 23:00 23:15 Temperature Pulse Rate 85 81 82 Respiratory 22 15 13 Rate Blood Pressure 102/66 93/56 94/55 O2 Sat by Pulse 76 L Oximetry 03/25/22 03/25/22 03/25/22 23:29 23:30 23:44 Temperature Pulse Rate 82 81 81 Respiratory 17 19 6 L Rate Blood Pressure 94/55 95/60 86/59 O2 Sat by Pulse 98 Oximetry 03/25/22 03/26/22 03/26/22 23:45 00:00 00:01 Temperature 98.8 F Pulse Rate 83 84 81 Respiratory 18 18 Rate Blood Pressure 86/59 92/68 O2 Sat by Pulse 99 Oximetry 03/26/22 03/26/22 03/26/22 00:15 00:30 00:45 Temperature Pulse Rate 92 H 84 84 Respiratory 17 17 18 Rate Blood Pressure 100/64 98/63 85/64 O2 Sat by Pulse Oximetry 03/26/22 03/26/22 03/26/22 01:01 01:15 01:30 Temperature Pulse Rate 86 82 82 Respiratory 17 16 18 Rate Blood Pressure 94/67 84/60 89/65 O2 Sat by Pulse Oximetry 03/26/22 03/26/22 03/26/22 01:45 02:00 02:15 Temperature Pulse Rate 85 87 82 Respiratory 16 15 16 Rate Blood Pressure 93/60 95/63 79/61 O2 Sat by Pulse Oximetry 03/26/22 03/26/22 03/26/22 02:30 02:45 03:00 Temperature Pulse Rate 82 90 80 Respiratory 17 17 16 Rate Blood Pressure 96/63 91/62 97/62 O2 Sat by Pulse Oximetry 03/26/22 03/26/22 03/26/22 03:15 03:30 03:45 Temperature Pulse Rate 82 81 83 Respiratory 17 17 22 Rate Blood Pressure 94/56 104/48 95/57 O2 Sat by Pulse Oximetry 03/26/22 03/26/22 03/26/22 04:00 04:15 04:30 Temperature 99 F Pulse Rate 86 78 90 Respiratory 16 18 17 Rate Blood Pressure 106/61 95/60 91/61 O2 Sat by Pulse 99 Oximetry 03/26/22 03/26/22 03/26/22 04:45 04:52 05:00 Temperature Pulse Rate 82 84 81 Respiratory 18 2 L 18 Rate Blood Pressure 95/68 95/68 104/68 O2 Sat by Pulse 95 Oximetry 03/26/22 03/26/22 03/26/22 05:15 05:30 05:45 Temperature Pulse Rate 84 84 81 Respiratory 15 18 18 Rate Blood Pressure 99/57 97/65 96/61 O2 Sat by Pulse Oximetry 03/26/22 03/26/22 03/26/22 06:00 06:15 06:30 Temperature Pulse Rate 81 82 82 Respiratory 22 21 19 Rate Blood Pressure 94/52 93/54 80/59 O2 Sat by Pulse 81 L Oximetry 03/26/22 03/26/22 03/26/22 06:45 07:01 07:13 Temperature 97.9 F Pulse Rate 80 85 Respiratory 22 18 Rate Blood Pressure 86/55 89/52 O2 Sat by Pulse Oximetry 03/26/22 03/26/22 03/26/22 07:15 07:30 07:45 Temperature Pulse Rate 83 83 82 Respiratory 20 19 18 Rate Blood Pressure 88/58 79/58 101/53 O2 Sat by Pulse 0 L Oximetry 03/26/22 03/26/22 03/26/22 08:00 08:15 08:31 Temperature Pulse Rate 84 81 83 Respiratory 16 18 18 Rate Blood Pressure 90/58 78/57 82/58 O2 Sat by Pulse 99 Oximetry 03/26/22 03/26/22 03/26/22 08:45 09:00 09:15 Temperature Pulse Rate 82 81 84 Respiratory 19 19 18 Rate Blood Pressure 91/62 89/54 89/54 O2 Sat by Pulse Oximetry 07/08/0703/26/22 03/26/22 09:30 09:45 10:01 Temperature Pulse Rate 80 84 82 Respiratory 17 17 20 Rate Blood Pressure 101/65 103/61 108/72 O2 Sat by Pulse Oximetry - General Appearance General appearance: sedated on ventilator, intubated Neck: supple Respiratory: Present: Other (Air entry per vent) Cardiology: regular, S1S2 Gastrointestinal: other (Subcut edema) Neurologic: other (Sedated) - Lab 03/26/22 03:30 03/26/22 03:30 Most recent lab results ABG pH 7.245 pH Units (7.350-7.450) L 03/25/22 22:35 ABG pCO2 43.2 mm Hg 03/25/22 22:35 ABG pO2 176.5 mm Hg (80.0-90.0) H 03/25/22 22:35 ABG HCO3 18.3 mmol/L (20.0-26.0) L 03/25/22 22:35 ABG O2 Saturation 99.0 % (95.0-99.0) 03/25/22 22:35 Calcium 7.4 mg/dL (8.4-10.2) L 03/26/22 03:30 Phosphorus 3.70 mg/dL (2.5-4.5) 03/18/22 05:20 Magnesium 2.00 mg/dL (1.7-2.3) 03/18/22 05:20 Urine Creatinine 34.4 mg/dL (0.1-20.0) H 03/19/22 14:40 Urine Sodium 18 mmol/L 03/19/22 14:40 Medications & Allergies - Medications Allergies/Adverse Reactions: Allergies Penicillins Allergy (Mild, Verified 01/11/19 12:20) Rash . Home Medications: Home Medications Medication Instructions Recorded Confirmed Last Taken Type Ciprofloxacin HCl [Ciprofloxacin 500 mg PO Q12H #14 tab 01/11/19 Unknown Rx TAB] levETIRAcetam [Keppra TAB] 500 mg PO BID #60 tablet 01/11/19 Unknown Rx Active Medications: Generic Name Dose Route Start Last Admin Trade Name Freq PRN Reason Stop Dose Admin Acetaminophen 650 mg 03/13/22 05:50 03/19/22 18:38 Acetaminophen 325 Mg/10.15 Ml Oral Liqd Unit Dose FEEDTUBE 650 mg Q6H PRN Administration Non Cardiac Pain or Temp>100.5 Famotidine 20 mg 03/26/22 10:00 03/26/22 09:59 Famotidine 20 Mg/2 Ml Inj IV 20 mg QDAY SHAHBAZ Administration Fentanyl 50 mcg 03/10/22 10:58 03/14/22 20:48 Fentanyl 100 Mcg/2 Ml Inj IV 50 mcg Q10MIN PRN Administration ANALGESIA Hydrocortisone Sodium Succinate 100 mg 03/26/22 10:00 03/26/22 09:59 Hydrocortisone Sod Succ 100 Mg/2 Ml Vial IV 03/31/22 02:01 100 mg Q8H SHAHBAZ Administration Hydrophilic Ointment 1 applic 03/10/22 11:03 Lip Therapy Vaseline TP Q2HR PRN Dry Lips Fentanyl Citrate 2,000 mcg in 100 mls @ 4.16 mls/hr 03/10/22 11:00 03/26/22 06:40 Fentanyl Drip Premix IV 3 mcg/kg/hr TITR SHAHBAZ 12.48 mls/hr Administration Protocol 1 MCG/KG/HR NORepinephrine/NS 8 MG-250 ML 8 mg in 250 mls @ 3.75 mls/hr 03/10/22 11:00 03/26/22 10:00 Norepinephrine/Ns 8 Mg-250 Ml (Double Conc) IV 10 mcg/min TITRATE SHAHBAZ 18.75 mls/hr Titration Protocol 2 MCG/MIN Vasopressin 20 unit/ Sodium 101 mls @ 9.09 mls/hr 03/21/22 15:00 03/26/22 06:40 Chloride IV 0.03 units/min TITR SHAHBAZ 9.09 mls/hr Administration Protocol 0.03 UNITS/MIN Heparin Sodium/Sodium Chloride 25,000 unit in 500 mls @ 24 mls/hr 03/22/22 09:00 03/25/22 09:35 Heparin/ 0.45% Nacl-25,000 Unit/500 Ml IV 1,000 units/hr TITR SHAHBAZ 20 mls/hr Administration Protocol 1,200 UNITS/HR Metronidazole 500 mg in 100 mls @ 100 mls/hr 03/22/22 09:00 03/26/22 08:05 Flagyl 500 Mg/100 Ml IV 100 mls/hr Q8H SHAHBAZ Administration Protocol Levetiracetam 500 mg 03/12/22 10:00 03/26/22 09:01 Levetiracetam 500 Mg/5 Ml Oral Liqd FEEDTUBE 500 mg BID SHAHBAZ Administration Midodrine 15 mg 03/21/22 16:00 03/26/22 08:06 Midodrine 5 Mg Tab PO 15 mg TID@0800,1200,1600 SHAHBAZ Administration Multi-Ingred Cream/Lotion/Oil/Oint 1 applic 03/10/22 11:03 Mineral Oil/Petrolatum, White Ophth Oint 3.5 Gm OU Q4HR PRN Dry Eye(s) Ondansetron HCl 4 mg 03/10/22 02:56 Ondansetron 4 Mg/2 Ml Inj IV Q8H PRN Nausea And Vomiting Scopolamine 1 each 03/21/22 10:00 03/24/22 11:05 Scopolamine Transdermal Patch 72 Hr TD 1 each Q3D SHAHBAZ Administration Sodium Chloride 10 ml 03/10/22 10:00 03/26/22 09:02 Sodium Chloride 0.9% 10 Ml Flush Syringe IV 10 ml BID SHAHBAZ Administration Sodium Chloride 10 ml 03/10/22 02:56 Sodium Chloride 0.9% 10 Ml Flush Syringe IV PRN PRN LINE FLUSH Vancomycin HCl 500 mg 03/22/22 12:00 03/26/22 06:00 Vancomycin 250 Mg/10 Ml Oral Liqd PO 500 mg Q6HR SHAHBAZ Administration Protocol
[2022-03-26] MEDS: HEPARIN/ 0.45% NACL DRIP 25,000 UNIT/500 ML BAG IV SCH (10:40)
--- NOTE | 2022-03-26 12:28 | Progress Note ---
Assessment and Plan - Patient Problems (1) Respiratory failure Current Visit: Yes Status: Acute Plan to address problem: Patient has a history of multiple sclerosis, no reported cardiac history, presented to the hospital with respiratory insufficiency and currently on the vent in the ICU. Chest x-ray showed confluent consolidations in both lung fraire consistent with a severe bilateral pneumonia. A COVID-19 test was positive. Cardiac consultation was requested for the finding of a nonspecific, isolated rise in troponin levels. EKG show sinus rhythm with no acute ischemic changes. Echocardiogram done on this presentation shows left ventricular systolic ejection fraction at the lower limits of normal 50%. No acute cardiovascular issues at this time, will continue supportive management of cardiac status, defer treatment of respiratory failure and bilateral pneumonia to internal medicine and pulmonary. Follow intermittently. Subjective Date of service: 03/26/22 Principal diagnosis: AHRF; Multifocal Pneumonia; Septic shock; NSTEMI; AMS; Seizures Interval history: Patient is on the vent, sedated. Stable sinus rhythm on medical supervisor. No new cardiac events reported. Objective Vital Signs Temp Pulse Resp BP Pulse Ox 03/26/22 12:01 98.0 F 03/26/22 11:26 81 101/64 0 L 03/26/22 11:00 81 17 98/65 03/26/22 10:45 81 17 98/62 03/26/22 10:30 82 18 99/68 03/26/22 10:15 81 19 98/63 03/26/22 10:01 82 20 108/72 03/26/22 09:45 84 17 103/61 03/26/22 09:30 80 17 101/65 03/26/22 09:15 84 18 89/54 03/26/22 09:00 81 19 89/54 03/26/22 08:45 82 19 91/62 03/26/22 08:31 83 18 82/58 03/26/22 08:15 81 18 78/57 03/26/22 08:00 84 16 90/58 99 03/26/22 07:45 82 18 101/53 03/26/22 07:30 83 19 79/58 03/26/22 07:15 83 20 88/58 0 L 03/26/22 07:13 97.9 F 03/26/22 07:01 85 18 89/52 03/26/22 06:45 80 22 86/55 03/26/22 06:30 82 19 80/59 03/26/22 06:15 82 21 93/54 81 L 03/26/22 06:00 81 22 94/52 03/26/22 05:45 81 18 96/61 03/26/22 05:30 84 18 97/65 03/26/22 05:15 84 15 99/57 03/26/22 05:00 81 18 104/68 03/26/22 04:52 84 2 L 95/68 95 03/26/22 04:45 82 18 95/68 03/26/22 04:30 90 17 91/61 03/26/22 04:15 78 18 95/60 03/26/22 04:00 99 F 86 16 106/61 99 03/26/22 03:45 83 22 95/57 03/26/22 03:30 81 17 104/48 03/26/22 03:15 82 17 94/56 03/26/22 03:00 80 16 97/62 03/26/22 02:45 90 17 91/62 03/26/22 02:30 82 17 96/63 03/26/22 02:15 82 16 79/61 03/26/22 02:00 87 15 95/63 03/26/22 01:45 85 16 93/60 03/26/22 01:30 82 18 89/65 03/26/22 01:15 82 16 84/60 03/26/22 01:01 86 17 94/67 03/26/22 00:45 84 18 85/64 03/26/22 00:30 84 17 98/63 03/26/22 00:15 92 H 17 100/64 03/26/22 00:01 81 18 92/68 03/26/22 00:00 98.8 F 84 99 03/25/22 23:45 83 18 86/59 03/25/22 23:44 81 6 L 86/59 98 03/25/22 23:30 81 19 95/60 03/25/22 23:29 82 17 94/55 03/25/22 23:15 82 13 94/55 03/25/22 23:00 81 15 93/56 03/25/22 22:45 85 22 102/66 76 L 03/25/22 22:31 81 16 100/60 72 L 03/25/22 22:15 82 17 83/55 03/25/22 22:00 78 23 83/55 83 L 03/25/22 21:45 77 18 92/61 03/25/22 21:30 77 17 96/66 93 03/25/22 21:15 83 15 100/64 91 03/25/22 21:00 78 15 94/57 87 03/25/22 20:45 75 17 103/64 91 03/25/22 20:30 77 15 109/69 03/25/22 20:15 77 17 95/64 92 03/25/22 20:00 97.5 F L 59 L 20 103/65 99 03/25/22 19:45 81 18 98/60 90 03/25/22 19:30 77 21 97/58 92 03/25/22 19:18 76 0 L 93/67 100 03/25/22 19:15 79 30 H 93/67 95 03/25/22 19:00 79 30 H 102/65 95 03/25/22 18:45 77 30 H 105/67 93 03/25/22 18:31 76 15 54/36 100 03/25/22 18:15 78 14 91/62 03/25/22 18:00 75 21 90/61 03/25/22 17:45 76 19 95/60 03/25/22 17:30 76 17 96/57 97 03/25/22 17:15 80 17 99/59 03/25/22 17:13 98.0 F 03/25/22 17:00 78 14 93/58 97 03/25/22 16:45 76 16 95/60 95 03/25/22 16:30 78 18 91/62 03/25/22 16:15 77 23 87/58 97 03/25/22 16:00 78 18 98/64 98 03/25/22 15:59 78 03/25/22 15:45 76 15 101/64 03/25/22 15:37 77 95/60 96 03/25/22 15:30 80 17 95/60 96 03/25/22 15:15 81 18 100/68 96 03/25/22 15:00 81 17 106/67 03/25/22 14:45 81 17 99/65 99 03/25/22 14:30 81 18 91/60 03/25/22 14:15 80 17 89/62 03/25/22 14:00 87 16 82/61 03/25/22 13:45 83 15 91/60 97 03/25/22 13:30 83 22 95/61 97 03/25/22 13:15 89 28 H 93/69 92 03/25/22 13:01 77 25 H 115/71 03/25/22 12:45 83 31 H 90/64 03/25/22 12:30 83 31 H 90/61 79 L - Physical Examination General: Other (intubated on mechanical ventilator) HEENT: Positive: PERRL Neck: Positive: neck supple, trachea midline. Negative: JVD/HJR Cardiac: Positive: Reg Rate and Rhythm Lungs: Positive: Decreased Breath Sounds Neuro: Positive: Other (Intubated, sedated on the vent) Abdomen: Positive: Soft Skin: Positive: Clear, Other (multiple wounds) Extremities: Present: edema - Labs and Meds Cardiac Enzymes 03/26/22 Range/Units 03:30 AST 40 (5-40) units/L CBC 03/26/22 Range/Units 03:30 WBC 39.8 H (4.5-11.0) K/mm3 RBC 2.61 L (3.65-5.03) M/mm3 Hgb 7.3 L (10.1-14.3) gm/dl Hct 23.6 L (30.3-42.9) % Plt Count 600 H (140-440) K/mm3 Comprehensive Metabolic Panel 03/26/22 Range/Units 03:30 Sodium 134 L (137-145) mmol/L Potassium 3.9 D (3.6-5.0) mmol/L Chloride 93.0 L (98-107) mmol/L Carbon Dioxide 19 L (22-30) mmol/L BUN 136 H (7-17) mg/dL Creatinine 2.3 H (0.6-1.2) mg/dL Glucose 146 H (65-100) mg/dL Calcium 7.4 L (8.4-10.2) mg/dL AST 40 (5-40) units/L ALT 13 (7-56) units/L Alkaline Phosphatase 153 H (35-129) units/L Total Protein 4.7 L (6.3-8.2) g/dL Albumin 2.1 L (3.9-5) g/dL - Allied health notes Allied health notes reviewed: RT
--- NOTE | 2022-03-26 13:30 | Progress Note ---
Assessment and Plan Cultures: 03/10/2022 blood culture: No growth 03/10/2022 sputum culture: Usual respiratory shital 03/14/2022 urine culture: No growth 03/18/2022 blood culture: No growth 03/18/2022 tracheal aspirate culture: no growth 03/18/2022 urine culture: No growth COVID-19 PCR: Negative 03/23/2022 C.difficile PCR: positive A/P: 61-year-old female past medical history of multiple sclerosis, seizures now with: #Septic shock, initially secondary to bilateral pneumonia, now with leukemoid reaction, diarrhea, C.difficile positive: ?fulminant C. difficile colitis #Acute hypoxic respiratory failure with ARDS: On vent with high requirements. #TANIYA: renally adjust abx. #Bilateral pneumonia: Cultures without any particular pathogen isolated. #Multiple sclerosis #Possible UTI: UA did show pyuria on admission, culture without any significant growth Recs: -Remains critically ill with multiple pressor requirements, high vent requirements. Too unstable for imaging. Agree with goals of care discussions, recommend comfort care. If family wants to continue to pursue aggressive care, next step would be a general surgery consult due to concerns for fulminant C. difficile colitis -Continue IV Flagyl and high-dose PO vancomycin. Patient has rectal tube, vancomycin retention enemas difficult to do -poor prognosis Gabrielle Vásquez MD, FACP, [facility] O: [phone] F: [phone] C: [phone] Subjective Date of service: 03/26/22 Principal diagnosis: AHRF; Multifocal Pneumonia; Septic shock; NSTEMI; AMS; Seizures Interval history: Remains on the vent with high requirements, on multiple pressors. WBC remains elevated. C.difficile came back positive. Objective - Exam Narrative Exam: Physical Exam: Constitutional: sedated, intubated, on the vent Head, Ears, Nose: Normocephalic, atraumatic. External ears, nose normal Eyes: Conjunctivae/corneas clear. No icterus. No ptosis. Neck: intubated Oral: intubated Cardiovascular: S1, S2 + Respiratory: AE fair bilaterally and equal GI: Soft, bowel sounds hypo Musculoskeletal: No pedal edema, no cyanosis. Skin: No rash or abscess Hem/Lymphatic: No palpable cervical or supraclavicular nodes. No lymphangitis Psych: no agitation Neurological: sedated, intubated, on the vent, exam limited - Constitutional Vitals: Vital Signs Temp Pulse Resp BP Pulse Ox 98.0 F 76 17 87/59 99 03/26/22 12:01 03/26/22 13:15 03/26/22 13:15 03/26/22 13:15 03/26/22 12:00 Temperature -Last 24 Hours Temperature 98.0 F Temperature 97.9 F Temperature 99 F Temperature 98.8 F Temperature 97.5 F Temperature 98.0 F - Labs CBC & Chem 7: 03/26/22 03:30 03/26/22 03:30 Labs: Abnormal lab results 03/25/22 03/25/22 03/26/22 Range/Units 16:32 22:35 03:30 WBC 39.8 H (4.5-11.0) K/mm3 RBC 2.61 L (3.65-5.03) M/mm3 Hgb 7.3 L (10.1-14.3) gm/dl Hct 23.6 L (30.3-42.9) % RDW 17.4 H (13.2-15.2) % Plt Count 600 H (140-440) K/mm3 Seg Neuts % (Manual) 81.0 H (40.0-70.0) % Lymphocytes % (Manual) 6.5 L (13.4-35.0) % Nucleated RBC % 11.0 H (0.0-0.9) % Seg Neutrophils # Man 32.2 H (1.8-7.7) K/mm3 Monocytes # (Manual) 2.8 H (0.0-0.8) K/mm3 Eosinophils # (Manual) 1.4 H (0.0-0.4) K/mm3 Basophils # (Manual) 0.2 H (0.0-0.1) K/mm3 Heparin Anti-Xa Level (0.3-0.7) U.I./ml ABG pH 7.245 L (7.350-7.450) pH Units ABG pO2 176.5 H (80.0-90.0) mm Hg ABG HCO3 18.3 L (20.0-26.0) mmol/L ABG Base Excess -8.3 L (-2.0-3.0) mmol/L ABG Hemoglobin 7.3 L (12.0-16.0) gm/dl Sodium (137-145) mmol/L Chloride (98-107) mmol/L Carbon Dioxide (22-30) mmol/L BUN (7-17) mg/dL Creatinine (0.6-1.2) mg/dL Glucose (65-100) mg/dL POC Glucose 119 H (70-105) mg/dL Calcium (8.4-10.2) mg/dL Alkaline Phosphatase (35-129) units/L Total Protein (6.3-8.2) g/dL Albumin (3.9-5) g/dL 03/26/22 03/26/22 03/26/22 Range/Units 03:30 03:30 11:53 WBC (4.5-11.0) K/mm3 RBC (3.65-5.03) M/mm3 Hgb (10.1-14.3) gm/dl Hct (30.3-42.9) % RDW (13.2-15.2) % Plt Count (140-440) K/mm3 Seg Neuts % (Manual) (40.0-70.0) % Lymphocytes % (Manual) (13.4-35.0) % Nucleated RBC % (0.0-0.9) % Seg Neutrophils # Man (1.8-7.7) K/mm3 Monocytes # (Manual) (0.0-0.8) K/mm3 Eosinophils # (Manual) (0.0-0.4) K/mm3 Basophils # (Manual) (0.0-0.1) K/mm3 Heparin Anti-Xa Level 0.15 L (0.3-0.7) U.I./ml ABG pH (7.350-7.450) pH Units ABG pO2 (80.0-90.0) mm Hg ABG HCO3 (20.0-26.0) mmol/L ABG Base Excess (-2.0-3.0) mmol/L ABG Hemoglobin (12.0-16.0) gm/dl Sodium 134 L (137-145) mmol/L Chloride 93.0 L (98-107) mmol/L Carbon Dioxide 19 L (22-30) mmol/L BUN 136 H (7-17) mg/dL Creatinine 2.3 H (0.6-1.2) mg/dL Glucose 146 H (65-100) mg/dL POC Glucose 118 H (70-105) mg/dL Calcium 7.4 L (8.4-10.2) mg/dL Alkaline Phosphatase 153 H (35-129) units/L Total Protein 4.7 L (6.3-8.2) g/dL Albumin 2.1 L (3.9-5) g/dL
--- NOTE | 2022-03-26 19:42 | XRay Report ---
ABDOMEN 1 VIEW INDICATION / CLINICAL INFORMATION: OGT placement. COMPARISON: 03/10/2022 FINDINGS: Enteric catheter tip and side-port project over the stomach. Otherwise unchanged. Signer Name: Chaitanya Skaggs MD Signed: 03/26/2022 7:38 PM Workstation Name: [id number]
[2022-03-26] MEDS ORDERED: MEROPENEM/NS 1 GRAM/100 ML 1 GRAM/100 ML BAG IV SCH (22:00)
[2022-03-27] MEDS: VANCOMYCIN 250 MG/10 ML ORAL LIQD PO SCH ×3 (00:12→13:55)
[2022-03-27] MEDS: metroNIDAZOLE/NS 500 MG/100 ML 500 MG/100 ML BAG IV SCH ×3 (00:45→17:37)
[2022-03-27] MEDS: HYDROCORTISONE SOD SUCC 100 MG/2 ML VIAL IV SCH ×2 (02:02→09:19)
[2022-03-27] MEDS: VASOPRESSIN 20 UNIT in SODIUM CHLORIDE 0.9% 100 ML IV SCH (03:53)
[2022-03-27] MEDS: NORepinephrine/NS 8 MG-250 ML 8 MG/250 ML INFUS..BTL IV SCH (03:53)
[2022-03-27 04:52] LABS: ABG HCO3 17.2 mmol/L (20.0-26.0); ABG PCO2 35.4 mm Hg; ABG PH 7.304 pH Units (7.350-7.450)
[2022-03-27 04:53] LABS: ABG Base Excess -8.4 mmol/L (-2.0-3.0); ABG Oxygen Saturation 96.7 % (95.0-99.0)
[2022-03-27 04:54] LABS: ABG Methemoglobin 0.3 % (0.0-1.5)
[2022-03-27 05:56] LABS: Hematocrit 24.1 % (30.3-42.9); Hemoglobin 7.6 gm/dl (10.1-14.3); Mean Corpuscular HGB Conc 31 % (30-34); Mean Corpuscular Volume 90 fl (79-97); Platelet Count 511 K/mm3 (140-440); Red Blood Count 2.69 M/mm3 (3.65-5.03); Red Cell Distribution Width 17.9 % (13.2-15.2)
[2022-03-27 06:12] LABS: Albumin 2.1 g/dL (3.9-5); Calcium 7.4 mg/dL (8.4-10.2)
[2022-03-27] MEDS: fentaNYL DRIP Premix 2,000 MCG/100 ML BAG IV SCH ×2 (08:07→16:20)
[2022-03-27] MEDS: MIDODRINE 5 MG TAB PO SCH ×3 (08:08→17:38)
[2022-03-27 08:56] LABS: Band Neutrophils # (Manual) 6.4 K/mm3; Basophils % (Manual) 0 % (0.0-1.8); Eosinophils % (Manual) 0.5 % (0.0-4.3); Nucleated Red Blood Cells 26.5 % (0.0-0.9); Total Cells Counted 200
[2022-03-27 09:08] LABS: Anisocytosis 1+; Poikilocytosis 1+
[2022-03-27 09:09] LABS: Burr Cells Rare; Hypochromasia 1+; Large Platelets Rare; Platelet Estimate Consistent w Auto; Target Cells Rare
[2022-03-27] MEDS: levETIRAcetam 500 MG/5 ML ORAL LIQD FEEDTUBE SCH ×2 (09:19→22:00)
[2022-03-27] MEDS: FAMOTIDINE 20 MG/2 ML INJ IV SCH (09:19)
[2022-03-27] MEDS: SCOPOLAMINE TRANSDERMAL PATCH 72 HR TD SCH (09:19)
[2022-03-27] MEDS: HEPARIN/ 0.45% NACL DRIP 25,000 UNIT/500 ML BAG IV SCH (11:30)
--- NOTE | 2022-03-27 11:53 | Progress Note ---
Assessment and Plan Assessment and plan: 61-year-old -Russian female with known history of multiple sclerosis and seizure disorder presents to the emergency room today via EMS for evaluation of shortness of breath and difficulty breathing. Upon arrival of EMS patient was said to be having oxygen saturation in the 50s and was also hypotensive with blood pressure of 86/50 mmHg. IV fluid was started in route to the hospital. She was subsequently placed on CPAP. Upon arrival in the emergency room patient was placed on BiPAP. Initial information was obtained from the ER staff was family not available. Information later gathered from family indicates that patient did not receive the COVID immunization. There has been no history of fever or chills, no history of recent travel. No history of recent sick contacts. 03/10: S/p intubation this am due to tachypnea and worsen mental status. Current sedated and stable on the vent. Patient is now on low dose Levophed gtt due to hypotension. Presented with a Na level of 119, on continuous NS at 125ml, repeat BMP pending. Continue IVF hydration and serial Na Q6hrs. Nephrology is also following. Continue empiric IV Abx for CAP, COVID PCR pending, ID consult pending. D-Dimer also elevated, BLE doppler ordered, therapeutic Lovenox initiated. D/W CCM patient is too unstable for transport at this time, possible CTA chest in the am or once patient is more stable. Cardiology was also consulted for elevated troponin X2, EKG noted with no significant ST changes, 2D echo pending. Resume home AEDs, continue seizure precautions. Monitor and replace electrolytes as needed 03/11: Intubated and low dose fentanyl gtt. Open eyes spontaneously but does not track, not following commands. NA level 132 this am, Nabcarb gtt initiated per Nephro. CT head/brain w/o con ordered to r/o intracranial abnormality. Wean off sedation to better assess mental status. Remains on Levophed gtt, afebrile, but with leukocytosis this am. This am CXR and ABG noted, with significant improvement. D/w CCM, PE less likely will hold off on CTA chest for now. Lovenox switched to Qday. Continue empiric IV Abx, ID consult pending. 03/12: Discontinue bicarb gtt, replete phos and potassium, added miralax. Remain on levo and fent gtt 03/13: MRI brain/C-spine completed, EEG completed. Hyponatremia improved, patient remains on Levophed. Had a temperature of 101.3 remains on cefepime. Will defer to ID for abx. Will reculture on next temperature spike. 03/14: Overnight patient had hypoxia issues and FiO2 was increased to 100%, received lasix with repeat dose in AM. Hypotension and increase in levophed. Replete K. 03/15: hypoxia overnight and currently on 100%. RN attempted to lay flat and patient desatted to 88%. Will attempt again later today. Given lasix again. Hop eful to be able to have MRI today. Type and screen today for downtrending h/h, Wean FiO2 as tolerated, repelted phos with sodium phos. 03/16: hypoxic, fio2: 80%, desats on positional movements. Remains on levophed gtt, attempting to wean off. Remains too unstable for MRI brain. May benefit from steroids if altered mentation believed to be from MS flare. 03/17: Hypoxic overnight. FIO2 increased to 95%. Continue icu level supportive care with vent, levophed Gtt, merrem. Hgb 6.6 this AM, ordered 1 unit prbc. 03/18: WBC uptrending, persisting fevers. will re-culture with urine cx, sputum cx and bcx. Overall poor prognosis. Will attempt GOK discussion with family. 03/19: With persistent episodes of hypoxia overnight and this am. On 65% Fio2 and peep of 14 this am. Fevers improved, but leukocytosis worsen this am. Repeat cultures pending, continue current IV Abx per ID. Patient remains on Levophed gtt. X1 dose of kayexalate this am for hyperkalemia, worsening azotemia also noted, Nephrology is also following. Overall poor prognosis, possible GOC discussion with patient's son sometimes this week. 03/20: Up to 80% Fio2 and peep of 14 this am, still with periods of hypoxia with mild stimuli/movement. Severe generalized edema today with worsening CXR. Azotemia worsen s/p bcarb gtt. D/w Nephro, X1 dose of IV lasix and 25% Albumin given and Midodrine TID added. Overal poor prognosis. Possible GOC discussion with patient's son sometimes this week. 03/21: Mentation unchanged, remains on high vent settings. Patient did not respond to IV lasix yesterday, only 415ml UOP in the last 24hrs. Renal function worsen this am with hyperkalemia, X1 dose of kayexalate ordered. Nephrology is also following. Continue to monitor renal function and electrolytes. Possible phone conference today with son by the attending. Very poor prognosis. 03/22: Remains on high vent setting, respiratory acidosis noted from recent ABG. Vent settings adjusted by [facility]. Repeat ABG pending. With worsening renal function this am, additional Kayexalate given. Sudheer in WBCs this am despite IV Abx, now on 2 pressors, recent cultures with no growth to date. Flagyl and PO Vanco initiated empirically, C.Diff PCR pending. ID is also following. Heparin gtt also initiated per CCM, c/f for possible pulmonary shunting. Thorough discussion with patient's son and the attending yesterday in regards to patient's condition, overall poor prognosis, and goal of care. Patient's son wants all aggressive treatment and measures including trach and PEG at this time. Patient remains a FULL code status. 03/23: Condition is unchanged. Febrile this am with worsen leukocytosis. Back on merem, now on IV and PO vanco, Levaquin, and flagyl per ID. C.Diff PCR pending. ID recommendation noted. D/w CCM, plan for CT chest/Abd/Pelvis today. 03/24: Continue to decompensated, at 100% Fio2 and 14 of PEEP this am. Patient too unstable for transport due to worsening hypotension, now on Bicarb gtt. Remain on Levophed gtt and heparin gtts. C.diff PCR came back positive. Leukmoid reaction with thromocytosis noted, patient remains on IV Abx & PO vanco per ID. Renal function continue to decline, D/w Nephrology patient is too unstable for HD at this time due to high pressor requirement. Very poor prognosis. 03/25: Remains on high vent settings with tachypneia and unsynchronized with the vent this morning. Sedation held overnight due to worsen hypotension, now back on 2 pressors and still on a bcarb gtt. Resume sedation for vent synchony and tachypnea. CT scan cancelled patient too unstable for transport. Only 50cc of UOP overnight, renal function is worsening. Patient is too unstable for HD per Nephro. Phone conference with patient's son and daughter-in law and [facility] yesterday. Thorough discussion in regards to patient's worsening condition and very poor prognosis. GOC discussion was readdressed. They verbalized understanding of the info provided and voiced that the will contact us back with their final decision. Patient remains a FULL code status at this time 03-26 started stress dose steroids neuro-AMS #Acute Metabolic Encephalopathy #H/o Multiple Sclerosis and Seizure Disorder fentanyl for comfort see titration -- weaning to off as tolerated for neuro exam CT NAP hx MS and sz disorder on home keppra (? sedating) has cough and melba reflexes; no movement to noxious stimuli on exam EEG on 03/13- see report will attempt to wean sedation consider MRI given ongoing AMS need goals of care discussions with family/children advanced care planning need to follow up with son and daughter in law (who is a nurse) regarding code status we had a long discussion today and he is not ready to make her a DNR CV- hypotension /septic shock MAP > 65 vaso and NE see titration also on midodrine TID SR cards following trop elevated on admit echo noted Resp- acute hypoxic resp failure remains ventilated [facility] [id number] see RT section for weaning sat probe not correlating will wean FiO2 and leave PEEP minimal secretions today with scop. patches trend ABG in AM sats are not picking up and not correlating with ABG afternoon ABG ordered AM chest xray ordered GI- protien en malnutrition; cdiff; diarrhea; transaminitis TF per nutrition BMS dc 7- cdiff pos antibiotics per ID PPI minimal stooling at this time continue to monitor ? gen surg consult add bowel reg when appropriate trend LFT #Acute Kidney Injury(TANIYA) most likely ATN #Azotemia #Severe Hyponatremia- improved volume overload medina out 03-26 bladder scan QS remains overall grossly positive on I/O balance; edmea trend Cr would not tolerated HD nephrology following given pressors would not tolerate HD trend cr and BUN Heme- anemia hep drip- VTE hgb stable hgb goal 7 ID- cdiff ID following cdif pos 7-8 flgul and po vanc to continue trend temp and WBC stress dose steroids added 03-26 trend WBC and temp curve not on HCT stress dose hypothermia this AM warming blanket needed to warm her Endo stress hyperglycemia BG control as needed avoid hypoglycemia Disposition Plan: ICU Total Time Spent with Patient (Minutes): 60 min critical care History Interval history: forrest overnight Hospitalist Physical - Constitutional Vitals: Temp Pulse Resp BP Pulse Ox 92.7 F L 67 30 H 95/62 92 03/27/22 11:30 03/27/22 08:44 03/27/22 08:15 03/27/22 08:44 03/27/22 08:44 General appearance: Present: no acute distress, other (Intubated and Sedated) - EENT Eyes: Present: PERRL ENT: clear oral mucosa - Neck Neck: Present: supple, normal ROM - Respiratory Respiratory effort: normal - Cardiovascular Rhythm: regular Heart Sounds: Present: S1 & S2 - Extremities Extremity abnormal: edema Peripheral Pulses: within normal limits - Abdominal General gastrointestinal: soft - Integumentary Integumentary: Present: clear, warm, dry - Psychiatric Psychiatric: other - Neurologic Neurologic: other HEART Score - HEART Score Troponin: Troponin T 0.032 ng/mL (0.00-0.029) H D 03/10/22 12:24 Results - Labs CBC & Chem 7: 03/27/22 05:17 03/27/22 05:07 Labs: Laboratory Last Values WBC 41.8 K/mm3 (4.5-11.0) H* 03/27/22 05:17 RBC 2.69 M/mm3 (3.65-5.03) L 03/27/22 05:17 Hgb 7.6 gm/dl (10.1-14.3) L 03/27/22 05:17 Hct 24.1 % (30.3-42.9) L 03/27/22 05:17 MCV 90 fl (79-97) 03/27/22 05:17 MCH 28 pg (28-32) 03/27/22 05:17 MCHC 31 % (30-34) 03/27/22 05:17 RDW 17.9 % (13.2-15.2) H 03/27/22 05:17 Plt Count 511 K/mm3 (140-440) H 03/27/22 05:17 Lymph % (Auto) 8.9 % (13.4-35.0) L 03/11/22 05:00 Castro % (Auto) 4.2 % (0.0-7.3) 03/11/22 05:00 Eos % (Auto) 0.1 % (0.0-4.3) 03/11/22 05:00 Baso % (Auto) 0.2 % (0.0-1.8) 03/11/22 05:00 Lymph # (Auto) 1.2 K/mm3 (1.2-5.4) 03/11/22 05:00 Castro # (Auto) 0.6 K/mm3 (0.0-0.8) 03/11/22 05:00 Eos # (Auto) 0.0 K/mm3 (0.0-0.4) 03/11/22 05:00 Baso # (Auto) 0.0 K/mm3 (0.0-0.1) 03/11/22 05:00 Add Manual Diff Complete 03/27/22 05:17 Total Counted 200 03/27/22 05:17 Seg Neutrophils % 86.6 % (40.0-70.0) H 03/11/22 05:00 Seg Neuts % (Manual) 69.0 % (40.0-70.0) 03/27/22 05:17 Band Neutrophils % 14.0 % 03/27/22 05:17 Lymphocytes % (Manual) 2.0 % (13.4-35.0) L 03/27/22 05:17 Reactive Lymphs % (Man) 0 % 03/27/22 05:17 Monocytes % (Manual) 3.0 % (0.0-7.3) 03/27/22 05:17 Eosinophils % (Manual) 0.5 % (0.0-4.3) 03/27/22 05:17 Basophils % (Manual) 0 % (0.0-1.8) 03/27/22 05:17 Metamyelocytes % 11.5 % 03/27/22 05:17 Myelocytes % 0 % 03/27/22 05:17 Promyelocytes % 0 % 03/27/22 05:17 Blast Cells % 0 % 03/27/22 05:17 Nucleated RBC % 26.5 % (0.0-0.9) H 03/27/22 05:17 Seg Neutrophils # 11.8 K/mm3 (1.8-7.7) H 03/11/22 05:00 Seg Neutrophils # Man 31.5 K/mm3 (1.8-7.7) H 03/27/22 05:17 Band Neutrophils # 6.4 K/mm3 03/27/22 05:17 Lymphocytes # (Manual) 0.9 K/mm3 (1.2-5.4) L 03/27/22 05:17 Abs React Lymphs (Man) 0.0 K/mm3 03/27/22 05:17 Monocytes # (Manual) 1.4 K/mm3 (0.0-0.8) H 03/27/22 05:17 Eosinophils # (Manual) 0.2 K/mm3 (0.0-0.4) 03/27/22 05:17 Basophils # (Manual) 0.0 K/mm3 (0.0-0.1) 03/27/22 05:17 Metamyelocytes # 5.2 K/mm3 03/27/22 05:17 Myelocytes # 0.0 K/mm3 03/27/22 05:17 Promyelocytes # 0.0 K/mm3 03/27/22 05:17 Blast Cells # 0.0 K/mm3 03/27/22 05:17 WBC Morphology Not Reportable 03/27/22 05:17 Hypersegmented Neuts Not Reportable 03/27/22 05:17 Hyposegmented Neuts Few 03/27/22 05:17 Hypogranular Neuts Not Reportable 03/27/22 05:17 Smudge Cells Not Reportable 03/27/22 05:17 Toxic Granulation Not Reportable 03/27/22 05:17 Toxic Vacuolation Not Reportable 03/27/22 05:17 Dohle Bodies Not Reportable 03/27/22 05:17 Pelger-Huet Anomaly Not Reportable 03/27/22 05:17 Luis Rods Not Reportable 03/27/22 05:17 Platelet Estimate Consistent w auto 03/27/22 05:17 Clumped Platelets Not Reportable 03/27/22 05:17 Plt Clumps, EDTA Not Reportable 03/27/22 05:17 Large Platelets Rare 03/27/22 05:17 Giant Platelets Not Reportable 03/27/22 05:17 Platelet Satelliting Not Reportable 03/27/22 05:17 Plt Morphology Comment Not Reportable 03/27/22 05:17 RBC Morphology Not Reportable 03/27/22 05:17 Dimorphic RBCs Not Reportable 03/27/22 05:17 Polychromasia Few 03/27/22 05:17 Hypochromasia 1+ 03/27/22 05:17 Poikilocytosis 1+ 03/27/22 05:17 Anisocytosis 1+ 03/27/22 05:17 Microcytosis Not Reportable 03/27/22 05:17 Macrocytosis Not Reportable 03/27/22 05:17 Spherocytes Not Reportable 03/27/22 05:17 Pappenheimer Bodies Not Reportable 03/27/22 05:17 Sickle Cells Not Reportable 03/27/22 05:17 Target Cells Rare 03/27/22 05:17 Tear Drop Cells Not Reportable 03/27/22 05:17 Ovalocytes Not Reportable 03/27/22 05:17 Helmet Cells Not Reportable 03/27/22 05:17 [place] Bodies Not Reportable 03/27/22 05:17 [place] Rings Not Reportable 03/27/22 05:17 Rudy Cells Rare 03/27/22 05:17 Bite Cells Not Reportable 03/27/22 05:17 Crenated Cell Not Reportable 03/27/22 05:17 Elliptocytes Not Reportable 03/27/22 05:17 Acanthocytes (Spur) Few 03/27/22 05:17 Rouleaux Not Reportable 03/27/22 05:17 Hemoglobin C Crystals Not Reportable 03/27/22 05:17 Schistocytes Not Reportable 03/27/22 05:17 Malaria parasites Not Reportable 03/27/22 05:17 Tani Bodies Not Reportable 03/27/22 05:17 Hem Pathologist Commnt No 03/27/22 05:17 PT 17.2 Sec. (12.2-14.9) H 03/22/22 09:30 INR 1.25 (0.87-1.13) H 03/22/22 09:30 APTT 33.4 Sec. (24.2-36.6) 03/22/22 09:30 D-Dimer 787.78 ng/mlDDU (0-234) H 03/10/22 05:45 Heparin Anti-Xa Level 0.25 U.I./ml (0.3-0.7) L 03/27/22 05:17 ABG pH 7.304 pH Units (7.350-7.450) L 03/27/22 02:56 ABG pCO2 35.4 mm Hg 03/27/22 02:56 ABG pO2 93.0 mm Hg (80.0-90.0) H 03/27/22 02:56 ABG HCO3 17.2 mmol/L (20.0-26.0) L 03/27/22 02:56 ABG O2 Saturation 96.7 % (95.0-99.0) 03/27/22 02:56 ABG O2 Content 10.4 (0.0-44) 03/25/22 22:35 ABG Base Excess -8.4 mmol/L (-2.0-3.0) L 03/27/22 02:56 ABG Hemoglobin 8.3 gm/dl (12.0-16.0) L 03/27/22 02:56 ABG Carboxyhemoglobin 1.5 % (0.0-5.0) 03/27/22 02:56 ABG Methemoglobin 0.3 % (0.0-1.5) 03/27/22 02:56 Oxyhemoglobin 95.0 % (95.0-99.0) 03/27/22 02:56 FiO2 90 % 03/27/22 02:56 Sodium 136 mmol/L (137-145) L 03/27/22 05:07 Potassium 4.3 mmol/L (3.6-5.0) 03/27/22 05:07 Chloride 93.8 mmol/L (98-107) L 03/27/22 05:07 Carbon Dioxide 17 mmol/L (22-30) L 03/27/22 05:07 Anion Gap 30 mmol/L 03/27/22 05:07 BUN 141 mg/dL (7-17) H 03/27/22 05:07 Creatinine 2.3 mg/dL (0.6-1.2) H 03/27/22 05:07 Estimated GFR 22 ml/min 03/27/22 05:07 BUN/Creatinine Ratio 61 % 03/27/22 05:07 Glucose 164 mg/dL (65-100) H 03/27/22 05:07 POC Glucose 136 mg/dL (70-105) H 03/26/22 23:39 Osmolality 285 Mosm/kg 03/10/22 12:24 Lactic Acid 0.90 mmol/L (0.7-2.0) 03/18/22 05:20 Uric Acid 1.6 mg/dL (3.5-7.6) L 03/10/22 13:15 Calcium 7.4 mg/dL (8.4-10.2) L 03/27/22 05:07 Phosphorus 12.40 mg/dL (2.5-4.5) H 03/27/22 05:07 Magnesium 1.80 mg/dL (1.7-2.3) 03/27/22 05:07 Ferritin 219.2 ng/mL (10.0-200.0) H 03/10/22 05:45 Total Bilirubin 0.20 mg/dL (0.1-1.2) 03/27/22 05:07 AST 54 units/L (5-40) H 03/27/22 05:07 ALT 14 units/L (7-56) 03/27/22 05:07 Alkaline Phosphatase 175 units/L (35-129) H 03/27/22 05:07 Lactate Dehydrogenase 210 units/L (91-180) H 03/10/22 05:45 Total Creatine Kinase 901 units/L (30-135) H 03/10/22 12:24 CK-MB (CK-2) 15.3 ng/mL (0.0-4.0) H 03/10/22 12:24 CK-MB (CK-2) Rel Index 1.6 (0-4) 03/10/22 12:24 Troponin T 0.032 ng/mL (0.00-0.029) H D 03/10/22 12:24 C-Reactive Protein < 0.03 mg/dL (0.00-1.30) 03/10/22 05:45 NT-Pro-B Natriuret Pep 68888 pg/mL (0-900) H 03/10/22 01:25 Total Protein 4.9 g/dL (6.3-8.2) L 03/27/22 05:07 Albumin 2.1 g/dL (3.9-5) L 03/27/22 05:07 Albumin/Globulin Ratio 0.8 % 03/27/22 05:07 Prealbumin 0.044 g/L (0.200-0.400) L 03/12/22 18:40 Triglycerides 47 mg/dL (2-149) 03/10/22 01:25 Cholesterol 259 mg/dL (50-199) H 03/10/22 01:25 LDL Cholesterol Direct 187 mg/dL (50-130) H 03/10/22 01:25 HDL Cholesterol 63 mg/dL (40-59) H 03/10/22 01:25 Cholesterol/HDL Ratio 4.11 % 03/10/22 01:25 Lipase 15 units/L (13-60) 03/10/22 01:25 Vitamin B1 28 nmol/L (8-30) 03/13/22 08:00 Vitamin B12 1021 pg/mL (211-911) H 03/12/22 18:40 Folate 2.15 ng/mL (7.3-26.0) L 03/12/22 18:40 Procalcitonin 3.92 ng/mL (<0.15) 03/10/22 05:45 TSH 1.290 mlU/mL (0.270-4.200) 03/12/22 18:40 Urine Color Yellow (Yellow) 03/10/22 18:20 Urine Turbidity Clear (Clear) 03/10/22 18:20 Urine pH 6.0 (5.0-7.0) 03/10/22 18:20 Ur Specific [place] 1.010 (1.003-1.030) 03/10/22 18:20 Urine Protein <15 mg/dl mg/dL (Negative) 03/10/22 18:20 Urine Glucose (UA) Neg mg/dL (Negative) 03/10/22 18:20 Urine Ketones Tr mg/dL (Negative) 03/10/22 18:20 Urine Blood Sm (Negative) 03/10/22 18:20 Urine Nitrite Neg (Negative) 03/10/22 18:20 Urine Bilirubin Neg (Negative) 03/10/22 18:20 Urine Urobilinogen < 2.0 mg/dL (<2.0) 03/10/22 18:20 Ur Leukocyte Esterase Lg (Negative) 03/10/22 18:20 Urine WBC (Auto) 105.0 /HPF (0.0-6.0) H 03/10/22 18:20 Urine RBC (Auto) 2.0 /HPF (0.0-6.0) 03/10/22 18:20 U Epithel Cells (Auto) < 1.0 /HPF (0-13.0) 03/10/22 18:20 Urine Bacteria (Auto) 1+ /HPF (Negative) 03/10/22 18:20 Urine Osmolality 368 Mosm/kg 03/10/22 18:20 Urine Creatinine 34.4 mg/dL (0.1-20.0) H 03/19/22 14:40 Urine Sodium 18 mmol/L 03/19/22 14:40 Random Vancomycin 24.4 ug/mL (0-40.0) 03/26/22 03:30 Urine Opiates Screen Presumptive positive 03/10/22 18:20 Urine Methadone Screen Presumptive negative 03/10/22 18:20 Ur Barbiturates Screen Presumptive negative 03/10/22 18:20 Ur Phencyclidine Scrn Presumptive negative 03/10/22 18:20 Ur Amphetamines Screen Presumptive negative 03/10/22 18:20 U Benzodiazepines Scrn Presumptive negative 03/10/22 18:20 Urine Cocaine Screen Presumptive negative 03/10/22 18:20 U Marijuana (THC) Screen Presumptive negative 03/10/22 18:20 Drugs of Abuse Note Disclamer 03/10/22 18:20 Copper 118 mcg/dL (70-175) 03/12/22 18:40 Syphilis IgG/IgM Ab Nonreactive (NonReactive) 03/12/22 18:40 C. difficile Tox (PCR) Positive (Negative) 03/23/22 06:30 SARS-CoV-2 (PCR) Negative (Negative) 03/10/22 09:50 Blood Type O POSITIVE 03/15/22 09:42 Antibody Screen Negative 03/15/22 09:42 Crossmatch See Detail 03/15/22 09:42 Medina/IV: Voiding Method Incontinent Active Medications - Current Medications Current Medications: Generic Name Dose Route Start Last Admin Trade Name Freq PRN Reason Stop Dose Admin Acetaminophen 650 mg 03/13/22 05:50 03/19/22 18:38 Acetaminophen 325 Mg/10.15 Ml Oral Liqd Unit Dose FEEDTUBE 650 mg Q6H PRN Administration Non Cardiac Pain or Temp>100.5 Famotidine 20 mg 03/26/22 10:00 03/27/22 09:19 Famotidine 20 Mg/2 Ml Inj IV 20 mg QDAY SHAHBAZ Administration Hydrocortisone Sodium Succinate 100 mg 03/26/22 10:00 03/27/22 09:19 Hydrocortisone Sod Succ 100 Mg/2 Ml Vial IV 03/31/22 02:01 100 mg Q8H SHAHBAZ Administration Hydrophilic Ointment 1 applic 03/10/22 11:03 Lip Therapy Vaseline TP Q2HR PRN Dry Lips Fentanyl Citrate 2,000 mcg in 100 mls @ 4.16 mls/hr 03/10/22 11:00 03/27/22 08:07 Fentanyl Drip Premix IV 3 mcg/kg/hr TITR SHAHBAZ 12.48 mls/hr Administration Protocol 1 MCG/KG/HR NORepinephrine/NS 8 MG-250 ML 8 mg in 250 mls @ 3.75 mls/hr 03/10/22 11:00 03/27/22 07:31 Norepinephrine/Ns 8 Mg-250 Ml (Double Conc) IV 5 mcg/min TITRATE SHAHBAZ 9.375 mls/hr Titration Protocol 2 MCG/MIN Vasopressin 20 unit/ Sodium 101 mls @ 9.09 mls/hr 03/21/22 15:00 03/27/22 03:53 Chloride IV 0.03 units/min TITR SHAHBAZ 9.09 mls/hr Administration Protocol 0.03 UNITS/MIN Heparin Sodium/Sodium Chloride 25,000 unit in 500 mls @ 24 mls/hr 03/22/22 09:00 03/27/22 11:30 Heparin/ 0.45% Nacl-25,000 Unit/500 Ml IV 1,000 units/hr TITR SHAHBAZ 20 mls/hr Administration Protocol 1,200 UNITS/HR Metronidazole 500 mg in 100 mls @ 100 mls/hr 03/22/22 09:00 03/27/22 08:08 Flagyl 500 Mg/100 Ml IV 100 mls/hr Q8H SHAHBAZ Administration Protocol Levetiracetam 500 mg 03/12/22 10:00 03/27/22 09:19 Levetiracetam 500 Mg/5 Ml Oral Liqd FEEDTUBE 500 mg BID SHAHBAZ Administration Midodrine 15 mg 03/21/22 16:00 03/27/22 08:08 Midodrine 5 Mg Tab PO 15 mg TID@0800,1200,1600 SHAHBAZ Administration Multi-Ingred Cream/Lotion/Oil/Oint 1 applic 03/10/22 11:03 Mineral Oil/Petrolatum, White Ophth Oint 3.5 Gm OU Q4HR PRN Dry Eye(s) Ondansetron HCl 4 mg 03/10/22 02:56 Ondansetron 4 Mg/2 Ml Inj IV Q8H PRN Nausea And Vomiting Scopolamine 1 each 03/21/22 10:00 03/27/22 09:19 Scopolamine Transdermal Patch 72 Hr TD 1 each Q3D SHAHBAZ Administration Sodium Chloride 10 ml 03/10/22 10:00 03/27/22 09:20 Sodium Chloride 0.9% 10 Ml Flush Syringe IV 10 ml BID SHAHBAZ Administration Sodium Chloride 10 ml 03/10/22 02:56 Sodium Chloride 0.9% 10 Ml Flush Syringe IV PRN PRN LINE FLUSH Vancomycin HCl 500 mg 03/22/22 12:00 03/27/22 06:31 Vancomycin 250 Mg/10 Ml Oral Liqd PO 500 mg Q6HR SHAHBAZ Administration Protocol Nutrition/Malnutrition Assess - Dietary Evaluation Nutrition/Malnutrition Findings: Nutrition Notes Start: 03/10/22 12:22 Freq: Status: Active Protocol: Document 03/21/22 15:08 JOSH (Rec: 03/21/22 15:18 JOSH [id number]) Nutrition Notes Initial or Follow up Reassessment Current Diagnosis Hypertension,Respiratory Failure,Malnutrition Other Pertinent Diagnosis MS, CAP, Seizure, Metabolic Encephalopathy, Septic Shock, NSTEMI, UTI ... Current Diet TF-Vital AF 1.2 En @ 60 ml/hr (since D 03/10). Labs/Tests 03/21: Na 135, K 5.7, Cl 97.4, CO2 21, BUN 104, Crea 1.3, Glu 118. Pertinent Medications 03/21: Vasopressin 20U, others nutritionally unremarkable. Height 5 ft 6 in Weight 83.2 kg [place] Body Weight (kg) 59.09 BMI 29.6 Weight change and time frame No body weight change reported in 11 days. Weight Status Overweight Subjective/Other Information RD consult for routine F/U on TF tolerance/continuation. TF continues as prescribed, and well tolerated, according to RN notes. Pt remains on Mechanical Ventilation, O2 saturation @ 96%, according to Physical Assessment History notes. Pt presents bilateral-LE pitting edema 3+, according to Physical Assessment History notes. Pt presents an unspecified area of concern for skin risk at the time, according to Physical Assessment History notes. Percent of energy/protein needs met: Prescribed TF-Vital AF 1.2 En @ 60 ml/hr provides for energy/protein needs (1,728 Kcal/108 g) during LOS, 100% Kcal; 100% AA. Burn Absent Trauma Absent GI Symptoms None Food Allergy No Skin Integrity/Comment Unspecified area of concern. Current % PO Other Minimum of two criteria No Fluid Accumulation Moderate to Severe (severe) Reduced Application Processor Strength N/A (non-severe) Protein-Calorie Malnutrition N\A #1 Nutrition Diagnosis Inadequate oral intake Diagnosis Progress(for reassessment Continues documentation) Is patient on ventilator? Yes Is Patient Ambulatory and/or Out of Bed No REE-([facility]-confined to bed) 1713.168 Calculation Used for Recommendations [facility] Additional Notes Protein: 1-1.2 g/Kg ABW; 100- 166 g/day. Fluids: 1 ml/Kcal, or as per MD. Nutrition Intervention Nutrition Support: Continue TF-Vital AF 1.2 En @ 60 ml/hr. Flush: 100 ml water Q 4 hr, or as per MD. Kcal 1,728 Protein (gm) 108 Carbohydrates (gm) 159 Fat (gm) 78 Fluid (mL) 1,168 Fiber (gm) 7 % RDI: 100% Kcal; 100% AA. Goal #1 Provide at least 75% of energy /protein needs through Enteral Feeding during LOS. Follow-Up By: 03/28/22 Additional Comments Continue monitoring TF tolerance, Ventilation Status, Pressor support, and BM. - Malnutrition Assessment Minimum of two criteria: Yes - Attestation Statement I have reviewed and agreed w/ Malnutrition eval & tx plan: Yes
--- NOTE | 2022-03-27 12:24 | Progress Note ---
Assessment and Plan Cultures: 03/10/2022 blood culture: No growth 03/10/2022 sputum culture: Usual respiratory shital 03/14/2022 urine culture: No growth 03/18/2022 blood culture: No growth 03/18/2022 tracheal aspirate culture: no growth 03/18/2022 urine culture: No growth COVID-19 PCR: Negative 03/23/2022 C.difficile PCR: positive A/P: 61-year-old female past medical history of multiple sclerosis, seizures now with: #Septic shock, initially secondary to bilateral pneumonia, now with leukemoid reaction, diarrhea, C.difficile positive: ?fulminant C. difficile colitis #Acute hypoxic respiratory failure with ARDS: On vent with high requirements. #TANIYA: renally adjust abx. #Bilateral pneumonia: Cultures without any particular pathogen isolated. #Multiple sclerosis #Possible UTI: UA did show pyuria on admission, culture without any significant growth Recs: -Remains critically ill with multiple pressor requirements, high vent requirements. Too unstable for imaging. Agree with goals of care discussions, recommend comfort care. If family wants to continue to pursue aggressive care, next step would be a general surgery consult due to concerns for fulminant C. difficile colitis -Continue IV Flagyl and high-dose PO vancomycin -poor prognosis with very high mortality risk Gabrielle Vásquez MD, FACP, [facility] ([facility] O: [phone] F: [phone] C: [phone] Subjective Date of service: 03/27/22 Principal diagnosis: AHRF; Multifocal Pneumonia; Septic shock; NSTEMI; AMS; Seizures Interval history: Remains on the vent with high requirements, on multiple pressors. WBC remains elevated. Objective - Exam Narrative Exam: Physical Exam: Constitutional: sedated, intubated, on the vent Head, Ears, Nose: Normocephalic, atraumatic. External ears, nose normal Eyes: Conjunctivae/corneas clear. No icterus. No ptosis. Neck: intubated Oral: intubated Cardiovascular: S1, S2 + Respiratory: AE fair bilaterally and equal GI: Soft, bowel sounds hypo Musculoskeletal: No pedal edema, no cyanosis. Skin: No rash or abscess Hem/Lymphatic: No palpable cervical or supraclavicular nodes. No lymphangitis Psych: no agitation Neurological: sedated, intubated, on the vent, exam limited - Constitutional Vitals: Vital Signs Temp Pulse Resp BP Pulse Ox 92.7 F L 71 30 H 89/64 85 03/27/22 11:30 03/27/22 11:57 03/27/22 08:15 03/27/22 11:57 03/27/22 11:57 Temperature -Last 24 Hours Temperature 92.7 F Temperature 96.4 F Temperature 97.4 F Temperature 97.4 F Temperature 97.5 F Temperature 97.5 F - Labs CBC & Chem 7: 03/27/22 05:17 03/27/22 05:07 Labs: Abnormal lab results 03/26/22 03/27/22 03/27/22 Range/Units 23:39 02:56 05:07 WBC (4.5-11.0) K/mm3 RBC (3.65-5.03) M/mm3 Hgb (10.1-14.3) gm/dl Hct (30.3-42.9) % RDW (13.2-15.2) % Plt Count (140-440) K/mm3 Lymphocytes % (Manual) (13.4-35.0) % Nucleated RBC % (0.0-0.9) % Seg Neutrophils # Man (1.8-7.7) K/mm3 Lymphocytes # (Manual) (1.2-5.4) K/mm3 Monocytes # (Manual) (0.0-0.8) K/mm3 Heparin Anti-Xa Level (0.3-0.7) U.I./ml ABG pH 7.304 L (7.350-7.450) pH Units ABG pO2 93.0 H (80.0-90.0) mm Hg ABG HCO3 17.2 L (20.0-26.0) mmol/L ABG Base Excess -8.4 L (-2.0-3.0) mmol/L ABG Hemoglobin 8.3 L (12.0-16.0) gm/dl Sodium 136 L (137-145) mmol/L Chloride 93.8 L (98-107) mmol/L Carbon Dioxide 17 L (22-30) mmol/L BUN 141 H (7-17) mg/dL Creatinine 2.3 H (0.6-1.2) mg/dL Glucose 164 H (65-100) mg/dL POC Glucose 136 H (70-105) mg/dL Calcium 7.4 L (8.4-10.2) mg/dL Phosphorus 12.40 H (2.5-4.5) mg/dL AST 54 H (5-40) units/L Alkaline Phosphatase 175 H (35-129) units/L Total Protein 4.9 L (6.3-8.2) g/dL Albumin 2.1 L (3.9-5) g/dL 03/27/22 03/27/22 Range/Units 05:17 05:17 WBC 41.8 H* (4.5-11.0) K/mm3 RBC 2.69 L (3.65-5.03) M/mm3 Hgb 7.6 L (10.1-14.3) gm/dl Hct 24.1 L (30.3-42.9) % RDW 17.9 H (13.2-15.2) % Plt Count 511 H (140-440) K/mm3 Lymphocytes % (Manual) 2.0 L (13.4-35.0) % Nucleated RBC % 26.5 H (0.0-0.9) % Seg Neutrophils # Man 31.5 H (1.8-7.7) K/mm3 Lymphocytes # (Manual) 0.9 L (1.2-5.4) K/mm3 Monocytes # (Manual) 1.4 H (0.0-0.8) K/mm3 Heparin Anti-Xa Level 0.25 L (0.3-0.7) U.I./ml ABG pH (7.350-7.450) pH Units ABG pO2 (80.0-90.0) mm Hg ABG HCO3 (20.0-26.0) mmol/L ABG Base Excess (-2.0-3.0) mmol/L ABG Hemoglobin (12.0-16.0) gm/dl Sodium (137-145) mmol/L Chloride (98-107) mmol/L Carbon Dioxide (22-30) mmol/L BUN (7-17) mg/dL Creatinine (0.6-1.2) mg/dL Glucose (65-100) mg/dL POC Glucose (70-105) mg/dL Calcium (8.4-10.2) mg/dL Phosphorus (2.5-4.5) mg/dL AST (5-40) units/L Alkaline Phosphatase (35-129) units/L Total Protein (6.3-8.2) g/dL Albumin (3.9-5) g/dL
--- NOTE | 2022-03-27 15:41 | Progress Note ---
Assessment and Plan TANIYA - Worsening mainly BUN with minima increase in Cr still consistent with prerenal state. Hold Hydrocortisone for now & optimize pressors for better BP. F/u Urine output Lytes - Add Bicitra & f/u Acidosis. Phos binder Hypotension - On multiple vasopressors. Titrate as tolerated for better SBP Edema with Volume overload - Plan for diuretics when BP improves Anemia - F/u H/H Pneumonia/Resp Failure - Vent Mx per Pulm Multiple Sclerosis - F/u Mx per Neuro Subjective Date of service: 03/27/22 Principal diagnosis: AHRF; Multifocal Pneumonia; Septic shock; NSTEMI; AMS; Seizures Interval history: Remains on vent & sedated, with low BP on pressors Objective - Vital Signs Vital signs: Vital Signs - 12hr 03/27/22 03/27/22 03/27/22 03:39 03:45 04:00 Temperature 97.4 F L Pulse Rate 68 66 Respiratory 15 23 Rate Blood Pressure 107/63 97/62 O2 Sat by Pulse 90 94 Oximetry 03/27/22 03/27/22 03/27/22 04:15 04:30 04:45 Temperature Pulse Rate 67 67 68 Respiratory 22 28 H 17 Rate Blood Pressure 89/62 90/64 90/64 O2 Sat by Pulse 92 94 90 Oximetry 03/27/22 03/27/22 03/27/22 04:59 05:00 05:15 Temperature Pulse Rate 67 68 68 Respiratory 27 H 25 H Rate Blood Pressure 99/66 99/67 O2 Sat by Pulse 92 91 91 Oximetry 03/27/22 03/27/22 03/27/22 05:31 05:45 06:00 Temperature Pulse Rate 67 65 66 Respiratory 29 H 29 H 30 H Rate Blood Pressure 103/69 104/65 102/64 O2 Sat by Pulse 89 96 94 Oximetry 03/27/22 03/27/22 03/27/22 06:15 06:30 06:45 Temperature Pulse Rate 68 67 68 Respiratory 31 H 27 H 30 H Rate Blood Pressure 94/60 91/63 89/64 O2 Sat by Pulse 91 94 93 Oximetry 03/27/22 03/27/22 03/27/22 07:01 07:15 07:30 Temperature Pulse Rate 69 69 70 Respiratory 19 30 H 30 H Rate Blood Pressure 99/60 99/62 90/60 O2 Sat by Pulse 93 95 93 Oximetry 07/09/0603/27/22 03/27/22 07:45 07:58 08:00 Temperature 96.4 F L Pulse Rate 69 69 Respiratory 29 H 30 H Rate Blood Pressure 90/62 88/57 O2 Sat by Pulse 95 93 Oximetry 03/27/22 03/27/22 03/27/22 08:15 08:30 08:44 Temperature Pulse Rate 69 69 67 Respiratory 30 H 30 H Rate Blood Pressure 88/57 95/60 95/62 O2 Sat by Pulse 94 95 92 Oximetry 03/27/22 03/27/22 03/27/22 08:45 09:00 09:15 Temperature Pulse Rate 68 69 70 Respiratory 14 29 H 30 H Rate Blood Pressure 95/62 93/61 87/57 O2 Sat by Pulse 92 91 Oximetry 03/27/22 03/27/22 03/27/22 09:30 09:45 10:00 Temperature Pulse Rate 70 69 71 Respiratory 15 30 H 26 H Rate Blood Pressure 102/60 95/66 92/63 O2 Sat by Pulse 90 95 96 Oximetry 03/27/22 03/27/22 03/27/22 10:15 10:31 10:45 Temperature Pulse Rate 70 70 69 Respiratory 19 25 H 27 H Rate Blood Pressure 94/63 97/66 97/66 O2 Sat by Pulse 89 92 91 Oximetry 03/27/22 03/27/22 03/27/22 11:00 11:15 11:30 Temperature 92.7 F L Pulse Rate 69 70 Respiratory 20 28 H Rate Blood Pressure 89/63 89/63 O2 Sat by Pulse 95 92 Oximetry 03/27/22 03/27/22 03/27/22 11:31 11:45 11:57 Temperature Pulse Rate 70 71 71 Respiratory 15 28 H Rate Blood Pressure 89/61 89/64 89/64 O2 Sat by Pulse 86 88 85 Oximetry 03/27/22 03/27/22 03/27/22 12:00 12:15 12:30 Temperature 97 F L Pulse Rate 72 72 72 Respiratory 23 25 H 18 Rate Blood Pressure 90/63 99/60 98/66 O2 Sat by Pulse 84 86 86 Oximetry - General Appearance General appearance: sedated on ventilator, intubated Neck: supple Respiratory: Present: Other (Air entry per vent) Cardiology: regular, S1S2 Gastrointestinal: other (Soft. Subcut edema) Neurologic: other (Poor response) - Lab 03/27/22 05:17 03/27/22 05:07 Most recent lab results ABG pH 7.304 pH Units (7.350-7.450) L 03/27/22 02:56 ABG pCO2 35.4 mm Hg 03/27/22 02:56 ABG pO2 93.0 mm Hg (80.0-90.0) H 03/27/22 02:56 ABG HCO3 17.2 mmol/L (20.0-26.0) L 03/27/22 02:56 ABG O2 Saturation 96.7 % (95.0-99.0) 03/27/22 02:56 Calcium 7.4 mg/dL (8.4-10.2) L 03/27/22 05:07 Phosphorus 12.40 mg/dL (2.5-4.5) H 03/27/22 05:07 Magnesium 1.80 mg/dL (1.7-2.3) 03/27/22 05:07 Urine Creatinine 34.4 mg/dL (0.1-20.0) H 03/19/22 14:40 Urine Sodium 18 mmol/L 03/19/22 14:40 Medications & Allergies - Medications Allergies/Adverse Reactions: Allergies Penicillins Allergy (Mild, Verified 01/11/19 12:20) Rash . Home Medications: Home Medications Medication Instructions Recorded Confirmed Last Taken Type Ciprofloxacin HCl [Ciprofloxacin 500 mg PO Q12H #14 tab 01/11/19 Unknown Rx TAB] levETIRAcetam [Keppra TAB] 500 mg PO BID #60 tablet 01/11/19 Unknown Rx Active Medications: Generic Name Dose Route Start Last Admin Trade Name Freq PRN Reason Stop Dose Admin Acetaminophen 650 mg 03/13/22 05:50 03/19/22 18:38 Acetaminophen 325 Mg/10.15 Ml Oral Liqd Unit Dose FEEDTUBE 650 mg Q6H PRN Administration Non Cardiac Pain or Temp>100.5 Famotidine 20 mg 03/26/22 10:00 03/27/22 09:19 Famotidine 20 Mg/2 Ml Inj IV 20 mg QDAY SHAHBAZ Administration Hydrocortisone Sodium Succinate 100 mg 03/26/22 10:00 03/27/22 09:19 Hydrocortisone Sod Succ 100 Mg/2 Ml Vial IV 03/31/22 02:01 100 mg Q8H SHAHBAZ Administration Hydrophilic Ointment 1 applic 03/10/22 11:03 Lip Therapy Vaseline TP Q2HR PRN Dry Lips Fentanyl Citrate 2,000 mcg in 100 mls @ 4.16 mls/hr 03/10/22 11:00 03/27/22 08:07 Fentanyl Drip Premix IV 3 mcg/kg/hr TITR SHAHBAZ 12.48 mls/hr Administration Protocol 1 MCG/KG/HR NORepinephrine/NS 8 MG-250 ML 8 mg in 250 mls @ 3.75 mls/hr 03/10/22 11:00 03/27/22 07:31 Norepinephrine/Ns 8 Mg-250 Ml (Double Conc) IV 5 mcg/min TITRATE SHAHBAZ 9.375 mls/hr Titration Protocol 2 MCG/MIN Vasopressin 20 unit/ Sodium 101 mls @ 9.09 mls/hr 03/21/22 15:00 03/27/22 03:53 Chloride IV 0.03 units/min TITR SHAHBAZ 9.09 mls/hr Administration Protocol 0.03 UNITS/MIN Heparin Sodium/Sodium Chloride 25,000 unit in 500 mls @ 24 mls/hr 03/22/22 09:00 03/27/22 11:30 Heparin/ 0.45% Nacl-25,000 Unit/500 Ml IV 1,000 units/hr TITR SHAHBAZ 20 mls/hr Administration Protocol 1,200 UNITS/HR Metronidazole 500 mg in 100 mls @ 100 mls/hr 03/22/22 09:00 03/27/22 08:08 Flagyl 500 Mg/100 Ml IV 100 mls/hr Q8H SHAHBAZ Administration Protocol Levetiracetam 500 mg 03/12/22 10:00 03/27/22 09:19 Levetiracetam 500 Mg/5 Ml Oral Liqd FEEDTUBE 500 mg BID SHAHBAZ Administration Midodrine 15 mg 03/21/22 16:00 03/27/22 12:31 Midodrine 5 Mg Tab PO 15 mg TID@0800,1200,1600 SHAHBAZ Administration Multi-Ingred Cream/Lotion/Oil/Oint 1 applic 03/10/22 11:03 Mineral Oil/Petrolatum, White Ophth Oint 3.5 Gm OU Q4HR PRN Dry Eye(s) Ondansetron HCl 4 mg 03/10/22 02:56 Ondansetron 4 Mg/2 Ml Inj IV Q8H PRN Nausea And Vomiting Scopolamine 1 each 03/21/22 10:00 03/27/22 09:19 Scopolamine Transdermal Patch 72 Hr TD 1 each Q3D SHAHBAZ Administration Sodium Chloride 10 ml 03/10/22 10:00 03/27/22 09:20 Sodium Chloride 0.9% 10 Ml Flush Syringe IV 10 ml BID SHAHBAZ Administration Sodium Chloride 10 ml 03/10/22 02:56 Sodium Chloride 0.9% 10 Ml Flush Syringe IV PRN PRN LINE FLUSH Vancomycin HCl 500 mg 03/27/22 18:00 Vancomycin 250 Mg/10 Ml Oral Liqd FEEDTUBE Q6HR [facility] Protocol
--- NOTE | 2022-03-27 17:05 | Progress Note ---
Assessment and Plan This is a 61-year-old female with known past medical history of Multiple Sclerosis and seizure disorder admitted for sepsis, Hyponatremia, and acute hypoxic respiratory failure requiring ventilatory support Acute Hypoxemic Respiratory Failure, on MVS ARDS Septic shock -2 pressor with MODS Multifocal Pneumonia/CAP- possible aspiration TANIYA C.diff PCR positive Leukemoid reaction with thromocytosis NSTEMI/Elevated Troponin- probable type 2 ischemia Elevated BNP Acute Metabolic Encephalopathy H/o Seizure Disorder Elevated D-Dimer Moderate Protein Calorie Malnutrition Worsening leukocytosis, remains critically ill Wean vasopressor support to keep MAP>65 -continue to titrate supplemental oxygen to keep SpO2 90-92% -VAP bundle addressed, aspiration precautions HOB >40 -continue lung protective strategies; ARDS net protocol -Bicarbonate for pH <7.2 per ARDS net protocol -continue bronchodilators with pulmonary hygiene per RT -Continue Antibiotics per ID- on Vancomyin (po ), Metronidazole IV -Continue to trend temperature curve and WCC -CXR, ABG as clinically indicated - continue accuchecks with glycemic control per SSI (While critically ill target blood glucose of 140-180 mg/dL; avoid hypoglycemia) - avoid nephrotoxins, renally dose all medications - continue to avoid benzodiazepines, reduce the possibility of delirium - Maintenance of sleep-wake cycle, avoid delirium -Continue with enteric nutritional support - VTE prophylaxis- anticoagulation with therapeutic low intensity heparin -Stress ulcer prophylaxis- Famotidine - mobility, off loading and frequent turning per facility protocol to prevent pressure ulcers - Monitor hemodynamics closely - continue other care per attending / other consultants CONDITION: CRITICAL PROGNOSIS: GRAVE CODE STATUS: FULL The high probability of a clinically significant, sudden or life threatening deterioration of the [respiratory, cardiovascular, neurology,renal ] system(s) required my full and direct attention, intervention and personal management. The aggregate critical care time was [35 ] minutes. This time is in addition to time spent performing reported procedures but includes the following: [x] Data Review and interpretation [x] Patient assessment and monitoring of vital signs [x] Documentation [x] Medication orders and management Subjective Date of service: 03/27/22 Principal diagnosis: AHRF; Multifocal Pneumonia; Septic shock; NSTEMI; AMS; Seizures Interval history: follow up fro: Acute hypoxemic resp failure on MVS; Acute encephalopathy; Septic shock; Bilateral pneumonia-aspiration/CAP:Septic shock: TANIYA; C.diff positive Seen and examined. Vitals, labs, medications, chart reviewed. Discussed with nursing and respiratory care staff. Vent: ACVC-20/400/+14/ 100 Remains on Levophed and Vasopressin);low dose Fentanyl Empiric heparin-low intensity Renal function continues to decline [place] catheter; RIJ CVL Worsening leukocytosis Objective Vital Signs - 12hr 03/27/22 03/27/22 03/27/22 05:15 05:31 05:45 Temperature Pulse Rate 68 67 65 Respiratory 25 H 29 H 29 H Rate Blood Pressure 99/67 103/69 104/65 O2 Sat by Pulse 91 89 96 Oximetry 03/27/22 03/27/22 03/27/22 06:00 06:15 06:30 Temperature Pulse Rate 66 68 67 Respiratory 30 H 31 H 27 H Rate Blood Pressure 102/64 94/60 91/63 O2 Sat by Pulse 94 91 94 Oximetry 03/27/22 03/27/22 03/27/22 06:45 07:01 07:15 Temperature Pulse Rate 68 69 69 Respiratory 30 H 19 30 H Rate Blood Pressure 89/64 99/60 99/62 O2 Sat by Pulse 93 93 95 Oximetry 03/27/22 03/27/22 03/27/22 07:30 07:45 07:58 Temperature 96.4 F L Pulse Rate 70 69 Respiratory 30 H 29 H Rate Blood Pressure 90/60 90/62 O2 Sat by Pulse 93 95 Oximetry 03/27/22 03/27/22 03/27/22 08:00 08:15 08:30 Temperature Pulse Rate 69 69 69 Respiratory 30 H 30 H 30 H Rate Blood Pressure 88/57 88/57 95/60 O2 Sat by Pulse 93 94 95 Oximetry 03/27/22 03/27/22 03/27/22 08:44 08:45 09:00 Temperature Pulse Rate 67 68 69 Respiratory 14 29 H Rate Blood Pressure 95/62 95/62 93/61 O2 Sat by Pulse 92 92 Oximetry 03/27/22 03/27/22 03/27/22 09:15 09:30 09:45 Temperature Pulse Rate 70 70 69 Respiratory 30 H 15 30 H Rate Blood Pressure 87/57 102/60 95/66 O2 Sat by Pulse 91 90 95 Oximetry 03/27/22 03/27/22 03/27/22 10:00 10:15 10:31 Temperature Pulse Rate 71 70 70 Respiratory 26 H 19 25 H Rate Blood Pressure 92/63 94/63 97/66 O2 Sat by Pulse 96 89 92 Oximetry 03/27/22 03/27/22 03/27/22 10:45 11:00 11:15 Temperature Pulse Rate 69 69 70 Respiratory 27 H 20 28 H Rate Blood Pressure 97/66 89/63 89/63 O2 Sat by Pulse 91 95 92 Oximetry 03/27/22 03/27/22 03/27/22 11:30 11:31 11:45 Temperature 92.7 F L Pulse Rate 70 71 Respiratory 15 28 H Rate Blood Pressure 89/61 89/64 O2 Sat by Pulse 86 88 Oximetry 03/27/22 03/27/22 03/27/22 11:57 12:00 12:15 Temperature 97 F L Pulse Rate 71 72 72 Respiratory 23 25 H Rate Blood Pressure 89/64 90/63 99/60 O2 Sat by Pulse 85 84 86 Oximetry 03/27/22 03/27/22 12:30 15:31 Temperature Pulse Rate 72 74 Respiratory 18 Rate Blood Pressure 98/66 95/57 O2 Sat by Pulse 86 95 Oximetry Constitutional: other (middle aged female with anasarca and mild dyssynchrony on MVS, intubated) Eyes: non-icteric ENT: oropharynx moist, other (ETT 24 cm BLANCA) Neck: supple, no lymphadenopathy, no JVD Effort: mildly labored Ascultation: Bilateral: rales Percussion: Bilateral: not dull Cardiovascular: regular rate and rhythm, other (S1,S2) Gastrointestinal: normoactive bowel sounds, soft, non-tender, other (distended) Integumentary: other (edema with peeling skin) Extremities: no cyanosis, pulses normal, no ischemia or petechiae, anasarca Neurologic: pupils equal and round, unable to assess Psychiatric: other (unable to assess re: AMS) CBC and BMP: 03/28/22 04:17 03/28/22 04:17 ABG, PT/INR, D-dimer: ABG ABG pH 7.304 pH Units (7.350-7.450) L 03/27/22 02:56 ABG pCO2 35.4 mm Hg 03/27/22 02:56 ABG pO2 93.0 mm Hg (80.0-90.0) H 03/27/22 02:56 ABG O2 Saturation 96.7 % (95.0-99.0) 03/27/22 02:56 PT/INR, D-dimer PT 17.2 Sec. (12.2-14.9) H 03/22/22 09:30 INR 1.25 (0.87-1.13) H 03/22/22 09:30 D-Dimer 787.78 ng/mlDDU (0-234) H 03/10/22 05:45 Abnormal lab findings: Abnormal Labs 03/10/22 03/10/22 03/10/22 01:19 01:25 01:25 WBC RBC Hgb Hct MCH RDW 15.4 H Plt Count Lymph % (Auto) 12.4 L Lymph # (Auto) 1.1 L Seg Neutrophils % 85.9 H Seg Neuts % (Manual) Lymphocytes % (Manual) Nucleated RBC % Seg Neutrophils # Seg Neutrophils # Man Lymphocytes # (Manual) Monocytes # (Manual) Eosinophils # (Manual) Basophils # (Manual) PT INR D-Dimer Heparin Anti-Xa Level ABG pH ABG pO2 59.3 L ABG HCO3 16.7 L ABG O2 Saturation 92.3 L ABG Base Excess -7.8 L ABG Hemoglobin 11.4 L Oxyhemoglobin 90.8 L Sodium 119 L* Potassium 3.1 L Chloride 88.1 L Carbon Dioxide 16 L BUN Creatinine 0.3 L Glucose 146 H POC Glucose Lactic Acid Uric Acid Calcium 8.2 L Phosphorus Magnesium 1.30 L Ferritin AST ALT 5 L Alkaline Phosphatase Lactate Dehydrogenase Total Creatine Kinase CK-MB (CK-2) Troponin T NT-Pro-B Natriuret Pep Total Protein 5.4 L Albumin 3.6 L Prealbumin Cholesterol LDL Cholesterol Direct HDL Cholesterol Vitamin B12 Folate Urine WBC (Auto) Urine Creatinine Crossmatch 03/10/22 03/10/22 03/10/22 01:25 01:25 01:25 WBC RBC Hgb Hct MCH RDW Plt Count Lymph % (Auto) Lymph # (Auto) Seg Neutrophils % Seg Neuts % (Manual) Lymphocytes % (Manual) Nucleated RBC % Seg Neutrophils # Seg Neutrophils # Man Lymphocytes # (Manual) Monocytes # (Manual) Eosinophils # (Manual) Basophils # (Manual) PT INR D-Dimer Heparin Anti-Xa Level ABG pH ABG pO2 ABG HCO3 ABG O2 Saturation ABG Base Excess ABG Hemoglobin Oxyhemoglobin Sodium Potassium Chloride Carbon Dioxide BUN Creatinine Glucose POC Glucose Lactic Acid 3.60 H* Uric Acid Calcium Phosphorus Magnesium Ferritin AST ALT Alkaline Phosphatase Lactate Dehydrogenase Total Creatine Kinase CK-MB (CK-2) 4.6 H Troponin T 0.164 H* NT-Pro-B Natriuret Pep 75032 H Total Protein Albumin Prealbumin Cholesterol 259 H LDL Cholesterol Direct 187 H HDL Cholesterol 63 H Vitamin B12 Folate Urine WBC (Auto) Urine Creatinine Crossmatch 03/10/22 03/10/22 03/10/22 02:43 05:45 05:45 WBC RBC Hgb Hct MCH RDW Plt Count Lymph % (Auto) Lymph # (Auto) Seg Neutrophils % Seg Neuts % (Manual) Lymphocytes % (Manual) Nucleated RBC % Seg Neutrophils # Seg Neutrophils # Man Lymphocytes # (Manual) Monocytes # (Manual) Eosinophils # (Manual) Basophils # (Manual) PT INR D-Dimer 787.78 H Heparin Anti-Xa Level ABG pH ABG pO2 ABG HCO3 ABG O2 Saturation ABG Base Excess ABG Hemoglobin Oxyhemoglobin Sodium Potassium Chloride Carbon Dioxide BUN Creatinine Glucose POC Glucose Lactic Acid 3.70 H* 3.10 H* Uric Acid Calcium Phosphorus Magnesium Ferritin AST ALT Alkaline Phosphatase Lactate Dehydrogenase Total Creatine Kinase CK-MB (CK-2) Troponin T NT-Pro-B Natriuret Pep Total Protein Albumin Prealbumin Cholesterol LDL Cholesterol Direct HDL Cholesterol Vitamin B12 Folate Urine WBC (Auto) Urine Creatinine Crossmatch 03/10/22 03/10/22 03/10/22 05:45 05:45 12:24 WBC RBC Hgb Hct MCH RDW Plt Count Lymph % (Auto) Lymph # (Auto) Seg Neutrophils % Seg Neuts % (Manual) Lymphocytes % (Manual) Nucleated RBC % Seg Neutrophils # Seg Neutrophils # Man Lymphocytes # (Manual) Monocytes # (Manual) Eosinophils # (Manual) Basophils # (Manual) PT INR D-Dimer Heparin Anti-Xa Level ABG pH ABG pO2 ABG HCO3 ABG O2 Saturation ABG Base Excess ABG Hemoglobin Oxyhemoglobin Sodium 124 L Potassium 3.3 L Chloride Carbon Dioxide 11 L BUN Creatinine 0.2 L Glucose POC Glucose Lactic Acid Uric Acid Calcium 6.9 L D Phosphorus Magnesium Ferritin 219.2 H AST ALT Alkaline Phosphatase Lactate Dehydrogenase 210 H Total Creatine Kinase CK-MB (CK-2) Troponin T NT-Pro-B Natriuret Pep Total Protein Albumin Prealbumin Cholesterol LDL Cholesterol Direct HDL Cholesterol Vitamin B12 Folate Urine WBC (Auto) Urine Creatinine Crossmatch 03/10/22 03/10/22 03/10/22 12:24 12:24 12:24 WBC RBC Hgb Hct MCH RDW Plt Count Lymph % (Auto) Lymph # (Auto) Seg Neutrophils % Seg Neuts % (Manual) Lymphocytes % (Manual) Nucleated RBC % Seg Neutrophils # Seg Neutrophils # Man Lymphocytes # (Manual) Monocytes # (Manual) Eosinophils # (Manual) Basophils # (Manual) PT INR D-Dimer Heparin Anti-Xa Level ABG pH ABG pO2 ABG HCO3 ABG O2 Saturation ABG Base Excess ABG Hemoglobin Oxyhemoglobin Sodium 128 L Potassium Chloride Carbon Dioxide BUN Creatinine Glucose POC Glucose Lactic Acid 2.70 H* Uric Acid Calcium Phosphorus Magnesium Ferritin AST ALT Alkaline Phosphatase Lactate Dehydrogenase Total Creatine Kinase 901 H CK-MB (CK-2) 15.3 H Troponin T 0.032 H D NT-Pro-B Natriuret Pep Total Protein Albumin Prealbumin Cholesterol LDL Cholesterol Direct HDL Cholesterol Vitamin B12 Folate Urine WBC (Auto) Urine Creatinine Crossmatch 03/10/22 03/10/22 03/10/22 12:45 13:15 18:00 WBC RBC Hgb Hct MCH RDW Plt Count Lymph % (Auto) Lymph # (Auto) Seg Neutrophils % Seg Neuts % (Manual) Lymphocytes % (Manual) Nucleated RBC % Seg Neutrophils # Seg Neutrophils # Man Lymphocytes # (Manual) Monocytes # (Manual) Eosinophils # (Manual) Basophils # (Manual) PT INR D-Dimer Heparin Anti-Xa Level ABG pH 7.315 L ABG pO2 70.1 L ABG HCO3 15.6 L ABG O2 Saturation 93.8 L ABG Base Excess -9.5 L ABG Hemoglobin 11.0 L Oxyhemoglobin 92.4 L Sodium 129 L Potassium Chloride Carbon Dioxide 17 L BUN Creatinine 0.2 L Glucose POC Glucose Lactic Acid Uric Acid 1.6 L Calcium 7.0 L Phosphorus Magnesium Ferritin AST ALT Alkaline Phosphatase Lactate Dehydrogenase Total Creatine Kinase CK-MB (CK-2) Troponin T NT-Pro-B Natriuret Pep Total Protein Albumin Prealbumin Cholesterol LDL Cholesterol Direct HDL Cholesterol Vitamin B12 Folate Urine WBC (Auto) Urine Creatinine Crossmatch 03/10/22 03/10/22 03/11/22 18:20 21:05 05:00 WBC 13.7 H RBC 3.44 L Hgb 9.6 L Hct 29.0 L D MCH RDW Plt Count Lymph % (Auto) 8.9 L Lymph # (Auto) Seg Neutrophils % 86.6 H Seg Neuts % (Manual) Lymphocytes % (Manual) Nucleated RBC % Seg Neutrophils # 11.8 H Seg Neutrophils # Man Lymphocytes # (Manual) Monocytes # (Manual) Eosinophils # (Manual) Basophils # (Manual) PT INR D-Dimer Heparin Anti-Xa Level ABG pH ABG pO2 116.3 H ABG HCO3 17.2 L ABG O2 Saturation ABG Base Excess -6.4 L ABG Hemoglobin 11.0 L Oxyhemoglobin Sodium Potassium Chloride Carbon Dioxide BUN Creatinine Glucose POC Glucose Lactic Acid Uric Acid Calcium Phosphorus Magnesium Ferritin AST ALT Alkaline Phosphatase Lactate Dehydrogenase Total Creatine Kinase CK-MB (CK-2) Troponin T NT-Pro-B Natriuret Pep Total Protein Albumin Prealbumin Cholesterol LDL Cholesterol Direct HDL Cholesterol Vitamin B12 Folate Urine WBC (Auto) 105.0 H Urine Creatinine Crossmatch 03/11/22 03/11/22 03/12/22 05:00 Unknown 04:10 WBC RBC Hgb Hct MCH RDW Plt Count Lymph % (Auto) Lymph # (Auto) Seg Neutrophils % Seg Neuts % (Manual) Lymphocytes % (Manual) Nucleated RBC % Seg Neutrophils # Seg Neutrophils # Man Lymphocytes # (Manual) Monocytes # (Manual) Eosinophils # (Manual) Basophils # (Manual) PT INR D-Dimer Heparin Anti-Xa Level ABG pH 7.472 H 7.482 H ABG pO2 65.5 L ABG HCO3 19.8 L ABG O2 Saturation ABG Base Excess -2.9 L ABG Hemoglobin 10.1 L 8.4 L Oxyhemoglobin Sodium 132 L Potassium Chloride Carbon Dioxide 20 L BUN 6 L Creatinine 0.2 L Glucose POC Glucose Lactic Acid Uric Acid Calcium 7.5 L Phosphorus Magnesium Ferritin AST ALT Alkaline Phosphatase Lactate Dehydrogenase Total Creatine Kinase CK-MB (CK-2) Troponin T NT-Pro-B Natriuret Pep Total Protein Albumin Prealbumin Cholesterol LDL Cholesterol Direct HDL Cholesterol Vitamin B12 Folate Urine WBC (Auto) Urine Creatinine Crossmatch 03/12/22 03/12/22 03/12/22 04:20 04:20 12:25 WBC 13.6 H RBC 3.11 L Hgb 8.7 L Hct 26.1 L MCH RDW Plt Count Lymph % (Auto) Lymph # (Auto) Seg Neutrophils % Seg Neuts % (Manual) Lymphocytes % (Manual) Nucleated RBC % Seg Neutrophils # Seg Neutrophils # Man Lymphocytes # (Manual) Monocytes # (Manual) Eosinophils # (Manual) Basophils # (Manual) PT INR D-Dimer Heparin Anti-Xa Level ABG pH ABG pO2 ABG HCO3 ABG O2 Saturation ABG Base Excess ABG Hemoglobin Oxyhemoglobin Sodium 128 L Potassium 3.2 L Chloride 93.9 L Carbon Dioxide BUN 4 L Creatinine 0.2 L Glucose 103 H POC Glucose 116 H Lactic Acid Uric Acid Calcium 7.4 L Phosphorus 1.10 L Magnesium 2.40 H Ferritin AST ALT Alkaline Phosphatase Lactate Dehydrogenase Total Creatine Kinase CK-MB (CK-2) Troponin T NT-Pro-B Natriuret Pep Total Protein Albumin Prealbumin Cholesterol LDL Cholesterol Direct HDL Cholesterol Vitamin B12 Folate Urine WBC (Auto) Urine Creatinine Crossmatch 03/12/22 03/12/22 03/12/22 18:40 18:40 18:40 WBC RBC Hgb Hct MCH RDW Plt Count Lymph % (Auto) Lymph # (Auto) Seg Neutrophils % Seg Neuts % (Manual) Lymphocytes % (Manual) Nucleated RBC % Seg Neutrophils # Seg Neutrophils # Man Lymphocytes # (Manual) Monocytes # (Manual) Eosinophils # (Manual) Basophils # (Manual) PT INR D-Dimer Heparin Anti-Xa Level ABG pH ABG pO2 ABG HCO3 ABG O2 Saturation ABG Base Excess ABG Hemoglobin Oxyhemoglobin Sodium Potassium Chloride Carbon Dioxide BUN Creatinine Glucose POC Glucose Lactic Acid Uric Acid Calcium Phosphorus Magnesium Ferritin AST ALT Alkaline Phosphatase Lactate Dehydrogenase Total Creatine Kinase CK-MB (CK-2) Troponin T NT-Pro-B Natriuret Pep Total Protein Albumin Prealbumin 0.044 L Cholesterol LDL Cholesterol Direct HDL Cholesterol Vitamin B12 1021 H Folate 2.15 L Urine WBC (Auto) Urine Creatinine Crossmatch 03/13/22 03/13/22 03/13/22 04:10 08:00 09:50 WBC 15.0 H RBC 2.82 L Hgb 8.0 L Hct 23.9 L MCH RDW 15.5 H Plt Count Lymph % (Auto) Lymph # (Auto) Seg Neutrophils % Seg Neuts % (Manual) Lymphocytes % (Manual) Nucleated RBC % Seg Neutrophils # Seg Neutrophils # Man Lymphocytes # (Manual) Monocytes # (Manual) Eosinophils # (Manual) Basophils # (Manual) PT INR D-Dimer Heparin Anti-Xa Level ABG pH ABG pO2 98.6 H ABG HCO3 ABG O2 Saturation ABG Base Excess ABG Hemoglobin 8.3 L Oxyhemoglobin Sodium 130 L Potassium Chloride 96.1 L Carbon Dioxide BUN Creatinine 0.4 L D Glucose 148 H POC Glucose Lactic Acid Uric Acid Calcium 7.3 L Phosphorus Magnesium Ferritin AST ALT Alkaline Phosphatase Lactate Dehydrogenase Total Creatine Kinase CK-MB (CK-2) Troponin T NT-Pro-B Natriuret Pep Total Protein Albumin Prealbumin Cholesterol LDL Cholesterol Direct HDL Cholesterol Vitamin B12 Folate Urine WBC (Auto) Urine Creatinine Crossmatch 03/13/22 03/13/22 03/14/22 20:15 22:59 04:54 WBC 17.0 H RBC 2.79 L Hgb 7.8 L Hct 23.6 L MCH RDW 15.6 H Plt Count Lymph % (Auto) Lymph # (Auto) Seg Neutrophils % Seg Neuts % (Manual) Lymphocytes % (Manual) Nucleated RBC % Seg Neutrophils # Seg Neutrophils # Man Lymphocytes # (Manual) Monocytes # (Manual) Eosinophils # (Manual) Basophils # (Manual) PT INR D-Dimer Heparin Anti-Xa Level ABG pH ABG pO2 ABG HCO3 ABG O2 Saturation ABG Base Excess -2.9 L ABG Hemoglobin 8.0 L Oxyhemoglobin Sodium Potassium Chloride Carbon Dioxide BUN Creatinine Glucose POC Glucose 127 H Lactic Acid Uric Acid Calcium Phosphorus Magnesium Ferritin AST ALT Alkaline Phosphatase Lactate Dehydrogenase Total Creatine Kinase CK-MB (CK-2) Troponin T NT-Pro-B Natriuret Pep Total Protein Albumin Prealbumin Cholesterol LDL Cholesterol Direct HDL Cholesterol Vitamin B12 Folate Urine WBC (Auto) Urine Creatinine Crossmatch 03/14/22 03/14/22 03/14/22 04:54 16:15 22:59 WBC RBC Hgb Hct MCH RDW Plt Count Lymph % (Auto) Lymph # (Auto) Seg Neutrophils % Seg Neuts % (Manual) Lymphocytes % (Manual) Nucleated RBC % Seg Neutrophils # Seg Neutrophils # Man Lymphocytes # (Manual) Monocytes # (Manual) Eosinophils # (Manual) Basophils # (Manual) PT INR D-Dimer Heparin Anti-Xa Level ABG pH ABG pO2 ABG HCO3 ABG O2 Saturation ABG Base Excess ABG Hemoglobin Oxyhemoglobin Sodium 129 L 128 L Potassium 3.5 L Chloride 97.1 L 97.0 L Carbon Dioxide BUN 24 H 31 H Creatinine 0.5 L Glucose 125 H 114 H POC Glucose 134 H Lactic Acid Uric Acid Calcium 7.0 L 7.0 L Phosphorus Magnesium Ferritin AST ALT Alkaline Phosphatase Lactate Dehydrogenase Total Creatine Kinase CK-MB (CK-2) Troponin T NT-Pro-B Natriuret Pep Total Protein Albumin Prealbumin Cholesterol LDL Cholesterol Direct HDL Cholesterol Vitamin B12 Folate Urine WBC (Auto) Urine Creatinine Crossmatch 03/15/22 03/15/22 03/15/22 04:10 04:10 05:02 WBC 12.9 H RBC 2.55 L Hgb 7.1 L Hct 21.5 L MCH RDW 15.8 H Plt Count Lymph % (Auto) Lymph # (Auto) Seg Neutrophils % Seg Neuts % (Manual) 88.0 H Lymphocytes % (Manual) 5.0 L Nucleated RBC % Seg Neutrophils # Seg Neutrophils # Man 11.4 H Lymphocytes # (Manual) 0.6 L Monocytes # (Manual) Eosinophils # (Manual) 0.5 H Basophils # (Manual) PT INR D-Dimer Heparin Anti-Xa Level ABG pH ABG pO2 ABG HCO3 ABG O2 Saturation ABG Base Excess ABG Hemoglobin Oxyhemoglobin Sodium 127 L Potassium Chloride 96.3 L Carbon Dioxide 21 L BUN 33 H Creatinine Glucose 126 H POC Glucose 116 H Lactic Acid Uric Acid Calcium 7.4 L Phosphorus 1.20 L Magnesium Ferritin AST ALT Alkaline Phosphatase Lactate Dehydrogenase Total Creatine Kinase CK-MB (CK-2) Troponin T NT-Pro-B Natriuret Pep Total Protein 5.3 L Albumin 2.1 L Prealbumin Cholesterol LDL Cholesterol Direct HDL Cholesterol Vitamin B12 Folate Urine WBC (Auto) Urine Creatinine Crossmatch 03/15/22 03/15/22 03/15/22 05:55 09:42 11:34 WBC RBC Hgb Hct MCH RDW Plt Count Lymph % (Auto) Lymph # (Auto) Seg Neutrophils % Seg Neuts % (Manual) Lymphocytes % (Manual) Nucleated RBC % Seg Neutrophils # Seg Neutrophils # Man Lymphocytes # (Manual) Monocytes # (Manual) Eosinophils # (Manual) Basophils # (Manual) PT INR D-Dimer Heparin Anti-Xa Level ABG pH ABG pO2 119.0 H ABG HCO3 ABG O2 Saturation ABG Base Excess -3.1 L ABG Hemoglobin 8.2 L Oxyhemoglobin Sodium Potassium Chloride Carbon Dioxide BUN Creatinine Glucose POC Glucose 125 H Lactic Acid Uric Acid Calcium Phosphorus Magnesium Ferritin AST ALT Alkaline Phosphatase Lactate Dehydrogenase Total Creatine Kinase CK-MB (CK-2) Troponin T NT-Pro-B Natriuret Pep Total Protein Albumin Prealbumin Cholesterol LDL Cholesterol Direct HDL Cholesterol Vitamin B12 Folate Urine WBC (Auto) Urine Creatinine Crossmatch See Detail 03/15/22 03/16/22 03/16/22 20:55 04:50 04:50 WBC 16.9 H RBC 2.53 L Hgb 7.1 L Hct 21.5 L MCH RDW 16.0 H Plt Count Lymph % (Auto) Lymph # (Auto) Seg Neutrophils % Seg Neuts % (Manual) Lymphocytes % (Manual) Nucleated RBC % Seg Neutrophils # Seg Neutrophils # Man Lymphocytes # (Manual) Monocytes # (Manual) Eosinophils # (Manual) Basophils # (Manual) PT INR D-Dimer Heparin Anti-Xa Level ABG pH 7.320 L ABG pO2 122.8 H ABG HCO3 ABG O2 Saturation ABG Base Excess -4.1 L ABG Hemoglobin 7.0 L Oxyhemoglobin Sodium 132 L Potassium Chloride Carbon Dioxide 20 L BUN 44 H Creatinine Glucose 123 H POC Glucose Lactic Acid Uric Acid Calcium 7.6 L Phosphorus Magnesium Ferritin AST ALT Alkaline Phosphatase Lactate Dehydrogenase Total Creatine Kinase CK-MB (CK-2) Troponin T NT-Pro-B Natriuret Pep Total Protein Albumin Prealbumin Cholesterol LDL Cholesterol Direct HDL Cholesterol Vitamin B12 Folate Urine WBC (Auto) Urine Creatinine Crossmatch 03/16/22 03/16/22 03/16/22 05:42 11:32 23:05 WBC RBC Hgb Hct MCH RDW Plt Count Lymph % (Auto) Lymph # (Auto) Seg Neutrophils % Seg Neuts % (Manual) Lymphocytes % (Manual) Nucleated RBC % Seg Neutrophils # Seg Neutrophils # Man Lymphocytes # (Manual) Monocytes # (Manual) Eosinophils # (Manual) Basophils # (Manual) PT INR D-Dimer Heparin Anti-Xa Level ABG pH ABG pO2 ABG HCO3 ABG O2 Saturation ABG Base Excess ABG Hemoglobin Oxyhemoglobin Sodium Potassium Chloride Carbon Dioxide BUN Creatinine Glucose POC Glucose 113 H 118 H 114 H Lactic Acid Uric Acid Calcium Phosphorus Magnesium Ferritin AST ALT Alkaline Phosphatase Lactate Dehydrogenase Total Creatine Kinase CK-MB (CK-2) Troponin T NT-Pro-B Natriuret Pep Total Protein Albumin Prealbumin Cholesterol LDL Cholesterol Direct HDL Cholesterol Vitamin B12 Folate Urine WBC (Auto) Urine Creatinine Crossmatch 03/17/22 03/17/22 03/17/22 04:00 04:00 05:00 WBC 19.1 H RBC 2.44 L Hgb 6.6 L Hct 20.6 L MCH 27 L RDW 16.4 H Plt Count Lymph % (Auto) Lymph # (Auto) Seg Neutrophils % Seg Neuts % (Manual) 78.0 H Lymphocytes % (Manual) 2.0 L Nucleated RBC % Seg Neutrophils # Seg Neutrophils # Man 14.9 H Lymphocytes # (Manual) 0.4 L Monocytes # (Manual) 1.3 H Eosinophils # (Manual) 0.6 H Basophils # (Manual) PT INR D-Dimer Heparin Anti-Xa Level ABG pH 7.334 L ABG pO2 132.4 H ABG HCO3 ABG O2 Saturation ABG Base Excess -2.7 L ABG Hemoglobin 9.1 L Oxyhemoglobin Sodium 134 L Potassium Chloride Carbon Dioxide BUN 55 H Creatinine Glucose 125 H POC Glucose Lactic Acid Uric Acid Calcium 8.1 L Phosphorus Magnesium Ferritin AST ALT Alkaline Phosphatase Lactate Dehydrogenase Total Creatine Kinase CK-MB (CK-2) Troponin T NT-Pro-B Natriuret Pep Total Protein Albumin Prealbumin Cholesterol LDL Cholesterol Direct HDL Cholesterol Vitamin B12 Folate Urine WBC (Auto) Urine Creatinine Crossmatch 03/17/22 03/17/22 03/17/22 05:40 15:30 17:48 WBC RBC Hgb 8.2 L Hct 24.9 L MCH RDW Plt Count Lymph % (Auto) Lymph # (Auto) Seg Neutrophils % Seg Neuts % (Manual) Lymphocytes % (Manual) Nucleated RBC % Seg Neutrophils # Seg Neutrophils # Man Lymphocytes # (Manual) Monocytes # (Manual) Eosinophils # (Manual) Basophils # (Manual) PT INR D-Dimer Heparin Anti-Xa Level ABG pH ABG pO2 ABG HCO3 ABG O2 Saturation ABG Base Excess ABG Hemoglobin Oxyhemoglobin Sodium Potassium Chloride Carbon Dioxide BUN Creatinine Glucose POC Glucose 115 H 117 H Lactic Acid Uric Acid Calcium Phosphorus Magnesium Ferritin AST ALT Alkaline Phosphatase Lactate Dehydrogenase Total Creatine Kinase CK-MB (CK-2) Troponin T NT-Pro-B Natriuret Pep Total Protein Albumin Prealbumin Cholesterol LDL Cholesterol Direct HDL Cholesterol Vitamin B12 Folate Urine WBC (Auto) Urine Creatinine Crossmatch 03/17/22 03/18/22 03/18/22 23:54 05:04 05:20 WBC RBC Hgb Hct MCH RDW Plt Count Lymph % (Auto) Lymph # (Auto) Seg Neutrophils % Seg Neuts % (Manual) Lymphocytes % (Manual) Nucleated RBC % Seg Neutrophils # Seg Neutrophils # Man Lymphocytes # (Manual) Monocytes # (Manual) Eosinophils # (Manual) Basophils # (Manual) PT INR D-Dimer Heparin Anti-Xa Level ABG pH 7.302 L ABG pO2 71.0 L ABG HCO3 ABG O2 Saturation 94.9 L ABG Base Excess -4.3 L ABG Hemoglobin 9.6 L Oxyhemoglobin 92.9 L Sodium 135 L Potassium Chloride Carbon Dioxide BUN 66 H Creatinine Glucose 122 H POC Glucose 114 H Lactic Acid Uric Acid Calcium 8.2 L Phosphorus Magnesium Ferritin AST ALT Alkaline Phosphatase Lactate Dehydrogenase Total Creatine Kinase CK-MB (CK-2) Troponin T NT-Pro-B Natriuret Pep Total Protein 5.4 L Albumin 2.0 L Prealbumin Cholesterol LDL Cholesterol Direct HDL Cholesterol Vitamin B12 Folate Urine WBC (Auto) Urine Creatinine Crossmatch 03/18/22 03/18/22 03/18/22 05:20 06:44 12:04 WBC 23.9 H RBC 2.88 L Hgb 8.1 L Hct 25.1 L MCH RDW 16.0 H Plt Count Lymph % (Auto) Lymph # (Auto) Seg Neutrophils % Seg Neuts % (Manual) 89.0 H Lymphocytes % (Manual) 7.5 L Nucleated RBC % Seg Neutrophils # Seg Neutrophils # Man 21.3 H Lymphocytes # (Manual) Monocytes # (Manual) Eosinophils # (Manual) Basophils # (Manual) PT INR D-Dimer Heparin Anti-Xa Level ABG pH ABG pO2 ABG HCO3 ABG O2 Saturation ABG Base Excess ABG Hemoglobin Oxyhemoglobin Sodium Potassium Chloride Carbon Dioxide BUN Creatinine Glucose POC Glucose 107 H 119 H Lactic Acid Uric Acid Calcium Phosphorus Magnesium Ferritin AST ALT Alkaline Phosphatase Lactate Dehydrogenase Total Creatine Kinase CK-MB (CK-2) Troponin T NT-Pro-B Natriuret Pep Total Protein Albumin Prealbumin Cholesterol LDL Cholesterol Direct HDL Cholesterol Vitamin B12 Folate Urine WBC (Auto) Urine Creatinine Crossmatch 03/19/22 03/19/22 03/19/22 05:15 08:59 08:59 WBC 30.4 H RBC 2.78 L Hgb 7.7 L Hct 24.2 L MCH RDW 16.4 H Plt Count Lymph % (Auto) Lymph # (Auto) Seg Neutrophils % Seg Neuts % (Manual) Lymphocytes % (Manual) Nucleated RBC % Seg Neutrophils # Seg Neutrophils # Man Lymphocytes # (Manual) Monocytes # (Manual) Eosinophils # (Manual) Basophils # (Manual) PT INR D-Dimer Heparin Anti-Xa Level ABG pH 7.341 L ABG pO2 78.1 L ABG HCO3 ABG O2 Saturation ABG Base Excess -4.5 L ABG Hemoglobin 9.5 L Oxyhemoglobin Sodium 132 L Potassium 5.5 H Chloride Carbon Dioxide 19 L BUN 84 H Creatinine Glucose 124 H POC Glucose Lactic Acid Uric Acid Calcium Phosphorus Magnesium Ferritin AST ALT Alkaline Phosphatase Lactate Dehydrogenase Total Creatine Kinase CK-MB (CK-2) Troponin T NT-Pro-B Natriuret Pep Total Protein Albumin Prealbumin Cholesterol LDL Cholesterol Direct HDL Cholesterol Vitamin B12 Folate Urine WBC (Auto) Urine Creatinine Crossmatch 03/19/22 03/19/22 03/19/22 14:40 14:40 18:37 WBC RBC Hgb Hct MCH RDW Plt Count Lymph % (Auto) Lymph # (Auto) Seg Neutrophils % Seg Neuts % (Manual) Lymphocytes % (Manual) Nucleated RBC % Seg Neutrophils # Seg Neutrophils # Man Lymphocytes # (Manual) Monocytes # (Manual) Eosinophils # (Manual) Basophils # (Manual) PT INR D-Dimer Heparin Anti-Xa Level ABG pH 7.337 L ABG pO2 41.2 L ABG HCO3 ABG O2 Saturation 74.8 L ABG Base Excess -4.5 L ABG Hemoglobin 7.9 L Oxyhemoglobin 72.9 L Sodium Potassium Chloride Carbon Dioxide BUN Creatinine Glucose POC Glucose 120 H Lactic Acid Uric Acid Calcium Phosphorus Magnesium Ferritin AST ALT Alkaline Phosphatase Lactate Dehydrogenase Total Creatine Kinase CK-MB (CK-2) Troponin T NT-Pro-B Natriuret Pep Total Protein Albumin Prealbumin Cholesterol LDL Cholesterol Direct HDL Cholesterol Vitamin B12 Folate Urine WBC (Auto) Urine Creatinine 34.4 H Crossmatch 03/19/22 03/20/22 03/20/22 23:15 05:20 05:20 WBC 29.5 H RBC 2.76 L Hgb 7.6 L Hct 23.7 L MCH 27 L RDW 16.6 H Plt Count Lymph % (Auto) Lymph # (Auto) Seg Neutrophils % Seg Neuts % (Manual) Lymphocytes % (Manual) Nucleated RBC % Seg Neutrophils # Seg Neutrophils # Man Lymphocytes # (Manual) Monocytes # (Manual) Eosinophils # (Manual) Basophils # (Manual) PT INR D-Dimer Heparin Anti-Xa Level ABG pH ABG pO2 ABG HCO3 ABG O2 Saturation ABG Base Excess ABG Hemoglobin Oxyhemoglobin Sodium Potassium Chloride Carbon Dioxide BUN 96 H Creatinine Glucose 141 H POC Glucose 125 H Lactic Acid Uric Acid Calcium Phosphorus Magnesium Ferritin AST ALT Alkaline Phosphatase Lactate Dehydrogenase Total Creatine Kinase CK-MB (CK-2) Troponin T NT-Pro-B Natriuret Pep Total Protein Albumin Prealbumin Cholesterol LDL Cholesterol Direct HDL Cholesterol Vitamin B12 Folate Urine WBC (Auto) Urine Creatinine Crossmatch 03/20/22 03/20/22 03/21/22 06:09 10:05 04:00 WBC RBC Hgb Hct MCH RDW Plt Count Lymph % (Auto) Lymph # (Auto) Seg Neutrophils % Seg Neuts % (Manual) Lymphocytes % (Manual) Nucleated RBC % Seg Neutrophils # Seg Neutrophils # Man Lymphocytes # (Manual) Monocytes # (Manual) Eosinophils # (Manual) Basophils # (Manual) PT INR D-Dimer Heparin Anti-Xa Level ABG pH 7.278 L ABG pO2 71.0 L ABG HCO3 ABG O2 Saturation 92.6 L ABG Base Excess ABG Hemoglobin 8.2 L Oxyhemoglobin 90.5 L Sodium 135 L Potassium 5.7 H D Chloride 97.4 L Carbon Dioxide 21 L BUN 104 H Creatinine 1.3 H Glucose 118 H POC Glucose 121 H Lactic Acid Uric Acid Calcium Phosphorus Magnesium Ferritin AST ALT Alkaline Phosphatase Lactate Dehydrogenase Total Creatine Kinase CK-MB (CK-2) Troponin T NT-Pro-B Natriuret Pep Total Protein Albumin Prealbumin Cholesterol LDL Cholesterol Direct HDL Cholesterol Vitamin B12 Folate Urine WBC (Auto) Urine Creatinine Crossmatch 03/21/22 03/21/22 03/21/22 04:40 15:30 21:00 WBC 25.6 H RBC 2.61 L Hgb 7.3 L Hct 22.8 L MCH RDW 16.8 H Plt Count 462 H Lymph % (Auto) Lymph # (Auto) Seg Neutrophils % Seg Neuts % (Manual) 71.0 H Lymphocytes % (Manual) 2.0 L Nucleated RBC % 1.0 H Seg Neutrophils # Seg Neutrophils # Man 18.2 H Lymphocytes # (Manual) 0.5 L Monocytes # (Manual) 1.8 H Eosinophils # (Manual) 0.8 H Basophils # (Manual) PT INR D-Dimer Heparin Anti-Xa Level ABG pH 7.197 L* 7.284 L ABG pO2 76.6 L 68.6 L ABG HCO3 ABG O2 Saturation 92.8 L ABG Base Excess -5.7 L -3.7 L ABG Hemoglobin 10.0 L 7.6 L Oxyhemoglobin 94.3 L 90.7 L Sodium Potassium Chloride Carbon Dioxide BUN Creatinine Glucose POC Glucose Lactic Acid Uric Acid Calcium Phosphorus Magnesium Ferritin AST ALT Alkaline Phosphatase Lactate Dehydrogenase Total Creatine Kinase CK-MB (CK-2) Troponin T NT-Pro-B Natriuret Pep Total Protein Albumin Prealbumin Cholesterol LDL Cholesterol Direct HDL Cholesterol Vitamin B12 Folate Urine WBC (Auto) Urine Creatinine Crossmatch 03/22/22 03/22/22 03/22/22 04:10 04:10 09:00 WBC 32.9 H RBC 2.60 L Hgb 7.4 L Hct 22.3 L MCH RDW 16.8 H Plt Count 517 H Lymph % (Auto) Lymph # (Auto) Seg Neutrophils % Seg Neuts % (Manual) Lymphocytes % (Manual) Nucleated RBC % Seg Neutrophils # Seg Neutrophils # Man Lymphocytes # (Manual) Monocytes # (Manual) Eosinophils # (Manual) Basophils # (Manual) PT INR D-Dimer Heparin Anti-Xa Level ABG pH ABG pO2 ABG HCO3 19.9 L ABG O2 Saturation ABG Base Excess -4.9 L ABG Hemoglobin 7.5 L Oxyhemoglobin Sodium Potassium 5.4 H Chloride 97.2 L Carbon Dioxide 21 L BUN 116 H Creatinine 1.6 H Glucose 142 H POC Glucose Lactic Acid Uric Acid Calcium Phosphorus Magnesium Ferritin AST ALT Alkaline Phosphatase Lactate Dehydrogenase Total Creatine Kinase CK-MB (CK-2) Troponin T NT-Pro-B Natriuret Pep Total Protein Albumin Prealbumin Cholesterol LDL Cholesterol Direct HDL Cholesterol Vitamin B12 Folate Urine WBC (Auto) Urine Creatinine Crossmatch 03/22/22 03/22/22 03/22/22 09:30 13:02 17:49 WBC RBC Hgb Hct MCH RDW Plt Count Lymph % (Auto) Lymph # (Auto) Seg Neutrophils % Seg Neuts % (Manual) Lymphocytes % (Manual) Nucleated RBC % Seg Neutrophils # Seg Neutrophils # Man Lymphocytes # (Manual) Monocytes # (Manual) Eosinophils # (Manual) Basophils # (Manual) PT 17.2 H INR 1.25 H D-Dimer Heparin Anti-Xa Level ABG pH ABG pO2 ABG HCO3 ABG O2 Saturation ABG Base Excess ABG Hemoglobin Oxyhemoglobin Sodium Potassium Chloride Carbon Dioxide BUN Creatinine Glucose POC Glucose 120 H 118 H Lactic Acid Uric Acid Calcium Phosphorus Magnesium Ferritin AST ALT Alkaline Phosphatase Lactate Dehydrogenase Total Creatine Kinase CK-MB (CK-2) Troponin T NT-Pro-B Natriuret Pep Total Protein Albumin Prealbumin Cholesterol LDL Cholesterol Direct HDL Cholesterol Vitamin B12 Folate Urine WBC (Auto) Urine Creatinine Crossmatch 03/23/22 03/23/22 03/23/22 04:20 04:20 04:25 WBC 37.3 H RBC 2.57 L Hgb 7.2 L Hct 22.3 L MCH RDW 16.6 H Plt Count 580 H Lymph % (Auto) Lymph # (Auto) Seg Neutrophils % Seg Neuts % (Manual) Lymphocytes % (Manual) Nucleated RBC % Seg Neutrophils # Seg Neutrophils # Man Lymphocytes # (Manual) Monocytes # (Manual) Eosinophils # (Manual) Basophils # (Manual) PT INR D-Dimer Heparin Anti-Xa Level ABG pH 7.333 L ABG pO2 70.9 L ABG HCO3 ABG O2 Saturation 93.3 L ABG Base Excess -5.0 L ABG Hemoglobin 7.0 L Oxyhemoglobin 91.2 L Sodium Potassium Chloride Carbon Dioxide 19 L BUN 125 H Creatinine 1.9 H Glucose 133 H POC Glucose Lactic Acid Uric Acid Calcium 8.2 L Phosphorus Magnesium Ferritin AST ALT Alkaline Phosphatase Lactate Dehydrogenase Total Creatine Kinase CK-MB (CK-2) Troponin T NT-Pro-B Natriuret Pep Total Protein Albumin Prealbumin Cholesterol LDL Cholesterol Direct HDL Cholesterol Vitamin B12 Folate Urine WBC (Auto) Urine Creatinine Crossmatch 03/23/22 03/23/22 03/23/22 05:40 07:25 11:13 WBC RBC Hgb Hct MCH RDW Plt Count Lymph % (Auto) Lymph # (Auto) Seg Neutrophils % Seg Neuts % (Manual) Lymphocytes % (Manual) Nucleated RBC % Seg Neutrophils # Seg Neutrophils # Man Lymphocytes # (Manual) Monocytes # (Manual) Eosinophils # (Manual) Basophils # (Manual) PT INR D-Dimer Heparin Anti-Xa Level 0.29 L ABG pH ABG pO2 ABG HCO3 ABG O2 Saturation ABG Base Excess ABG Hemoglobin Oxyhemoglobin Sodium Potassium Chloride Carbon Dioxide BUN Creatinine Glucose POC Glucose 121 H 112 H Lactic Acid Uric Acid Calcium Phosphorus Magnesium Ferritin AST ALT Alkaline Phosphatase Lactate Dehydrogenase Total Creatine Kinase CK-MB (CK-2) Troponin T NT-Pro-B Natriuret Pep Total Protein Albumin Prealbumin Cholesterol LDL Cholesterol Direct HDL Cholesterol Vitamin B12 Folate Urine WBC (Auto) Urine Creatinine Crossmatch 03/23/22 03/24/22 03/24/22 23:35 04:25 04:25 WBC RBC Hgb 7.3 L Hct 24.5 L MCH RDW Plt Count Lymph % (Auto) Lymph # (Auto) Seg Neutrophils % Seg Neuts % (Manual) Lymphocytes % (Manual) Nucleated RBC % Seg Neutrophils # Seg Neutrophils # Man Lymphocytes # (Manual) Monocytes # (Manual) Eosinophils # (Manual) Basophils # (Manual) PT INR D-Dimer Heparin Anti-Xa Level ABG pH ABG pO2 ABG HCO3 ABG O2 Saturation ABG Base Excess ABG Hemoglobin Oxyhemoglobin Sodium 136 L Potassium 5.1 H Chloride Carbon Dioxide 18 L BUN 130 H Creatinine 2.1 H Glucose 122 H POC Glucose 114 H Lactic Acid Uric Acid Calcium 8.1 L Phosphorus Magnesium Ferritin AST ALT Alkaline Phosphatase Lactate Dehydrogenase Total Creatine Kinase CK-MB (CK-2) Troponin T NT-Pro-B Natriuret Pep Total Protein Albumin Prealbumin Cholesterol LDL Cholesterol Direct HDL Cholesterol Vitamin B12 Folate Urine WBC (Auto) Urine Creatinine Crossmatch 03/24/22 03/24/22 03/24/22 04:40 08:40 09:23 WBC 47.4 H* RBC 2.73 L Hgb 7.5 L Hct 24.3 L MCH 27 L RDW 17.0 H Plt Count 667 H Lymph % (Auto) Lymph # (Auto) Seg Neutrophils % Seg Neuts % (Manual) 82.0 H Lymphocytes % (Manual) 6.0 L Nucleated RBC % 4.0 H Seg Neutrophils # Seg Neutrophils # Man 38.9 H Lymphocytes # (Manual) Monocytes # (Manual) 1.4 H Eosinophils # (Manual) 0.5 H Basophils # (Manual) PT INR D-Dimer Heparin Anti-Xa Level 0.18 L ABG pH 7.240 L ABG pO2 96.8 H ABG HCO3 18.1 L ABG O2 Saturation ABG Base Excess -8.6 L ABG Hemoglobin 7.2 L Oxyhemoglobin 94.5 L Sodium Potassium Chloride Carbon Dioxide BUN Creatinine Glucose POC Glucose Lactic Acid Uric Acid Calcium Phosphorus Magnesium Ferritin AST ALT Alkaline Phosphatase Lactate Dehydrogenase Total Creatine Kinase CK-MB (CK-2) Troponin T NT-Pro-B Natriuret Pep Total Protein Albumin Prealbumin Cholesterol LDL Cholesterol Direct HDL Cholesterol Vitamin B12 Folate Urine WBC (Auto) Urine Creatinine Crossmatch 03/24/22 03/25/22 03/25/22 17:12 04:25 04:40 WBC 49.1 H* RBC 2.60 L Hgb 7.4 L Hct 23.1 L MCH RDW 17.5 H Plt Count 630 H Lymph % (Auto) Lymph # (Auto) Seg Neutrophils % Seg Neuts % (Manual) Lymphocytes % (Manual) Nucleated RBC % Seg Neutrophils # Seg Neutrophils # Man Lymphocytes # (Manual) Monocytes # (Manual) Eosinophils # (Manual) Basophils # (Manual) PT INR D-Dimer Heparin Anti-Xa Level ABG pH 7.255 L ABG pO2 65.1 L ABG HCO3 18.0 L ABG O2 Saturation 89.7 L ABG Base Excess -8.5 L ABG Hemoglobin 7.2 L Oxyhemoglobin 87.4 L Sodium Potassium Chloride Carbon Dioxide BUN Creatinine Glucose POC Glucose 126 H Lactic Acid Uric Acid Calcium Phosphorus Magnesium Ferritin AST ALT Alkaline Phosphatase Lactate Dehydrogenase Total Creatine Kinase CK-MB (CK-2) Troponin T NT-Pro-B Natriuret Pep Total Protein Albumin Prealbumin Cholesterol LDL Cholesterol Direct HDL Cholesterol Vitamin B12 Folate Urine WBC (Auto) Urine Creatinine Crossmatch 03/25/22 03/25/22 03/25/22 04:40 04:40 11:12 WBC RBC Hgb Hct MCH RDW Plt Count Lymph % (Auto) Lymph # (Auto) Seg Neutrophils % Seg Neuts % (Manual) Lymphocytes % (Manual) Nucleated RBC % Seg Neutrophils # Seg Neutrophils # Man Lymphocytes # (Manual) Monocytes # (Manual) Eosinophils # (Manual) Basophils # (Manual) PT INR D-Dimer Heparin Anti-Xa Level 0.22 L ABG pH ABG pO2 ABG HCO3 ABG O2 Saturation ABG Base Excess ABG Hemoglobin Oxyhemoglobin Sodium 136 L Potassium 5.3 H Chloride 95.7 L Carbon Dioxide 18 L BUN 135 H Creatinine 2.2 H Glucose 121 H POC Glucose 123 H Lactic Acid Uric Acid Calcium 7.8 L Phosphorus Magnesium Ferritin AST ALT Alkaline Phosphatase Lactate Dehydrogenase Total Creatine Kinase CK-MB (CK-2) Troponin T NT-Pro-B Natriuret Pep Total Protein Albumin Prealbumin Cholesterol LDL Cholesterol Direct HDL Cholesterol Vitamin B12 Folate Urine WBC (Auto) Urine Creatinine Crossmatch 03/25/22 03/25/22 03/26/22 16:32 22:35 03:30 WBC 39.8 H RBC 2.61 L Hgb 7.3 L Hct 23.6 L MCH RDW 17.4 H Plt Count 600 H Lymph % (Auto) Lymph # (Auto) Seg Neutrophils % Seg Neuts % (Manual) 81.0 H Lymphocytes % (Manual) 6.5 L Nucleated RBC % 11.0 H Seg Neutrophils # Seg Neutrophils # Man 32.2 H Lymphocytes # (Manual) Monocytes # (Manual) 2.8 H Eosinophils # (Manual) 1.4 H Basophils # (Manual) 0.2 H PT INR D-Dimer Heparin Anti-Xa Level ABG pH 7.245 L ABG pO2 176.5 H ABG HCO3 18.3 L ABG O2 Saturation ABG Base Excess -8.3 L ABG Hemoglobin 7.3 L Oxyhemoglobin Sodium Potassium Chloride Carbon Dioxide BUN Creatinine Glucose POC Glucose 119 H Lactic Acid Uric Acid Calcium Phosphorus Magnesium Ferritin AST ALT Alkaline Phosphatase Lactate Dehydrogenase Total Creatine Kinase CK-MB (CK-2) Troponin T NT-Pro-B Natriuret Pep Total Protein Albumin Prealbumin Cholesterol LDL Cholesterol Direct HDL Cholesterol Vitamin B12 Folate Urine WBC (Auto) Urine Creatinine Crossmatch 03/26/22 03/26/22 03/26/22 03:30 03:30 11:53 WBC RBC Hgb Hct MCH RDW Plt Count Lymph % (Auto) Lymph # (Auto) Seg Neutrophils % Seg Neuts % (Manual) Lymphocytes % (Manual) Nucleated RBC % Seg Neutrophils # Seg Neutrophils # Man Lymphocytes # (Manual) Monocytes # (Manual) Eosinophils # (Manual) Basophils # (Manual) PT INR D-Dimer Heparin Anti-Xa Level 0.15 L ABG pH ABG pO2 ABG HCO3 ABG O2 Saturation ABG Base Excess ABG Hemoglobin Oxyhemoglobin Sodium 134 L Potassium Chloride 93.0 L Carbon Dioxide 19 L BUN 136 H Creatinine 2.3 H Glucose 146 H POC Glucose 118 H Lactic Acid Uric Acid Calcium 7.4 L Phosphorus Magnesium Ferritin AST ALT Alkaline Phosphatase 153 H Lactate Dehydrogenase Total Creatine Kinase CK-MB (CK-2) Troponin T NT-Pro-B Natriuret Pep Total Protein 4.7 L Albumin 2.1 L Prealbumin Cholesterol LDL Cholesterol Direct HDL Cholesterol Vitamin B12 Folate Urine WBC (Auto) Urine Creatinine Crossmatch 03/26/22 03/27/22 03/27/22 23:39 02:56 05:07 WBC RBC Hgb Hct MCH RDW Plt Count Lymph % (Auto) Lymph # (Auto) Seg Neutrophils % Seg Neuts % (Manual) Lymphocytes % (Manual) Nucleated RBC % Seg Neutrophils # Seg Neutrophils # Man Lymphocytes # (Manual) Monocytes # (Manual) Eosinophils # (Manual) Basophils # (Manual) PT INR D-Dimer Heparin Anti-Xa Level ABG pH 7.304 L ABG pO2 93.0 H ABG HCO3 17.2 L ABG O2 Saturation ABG Base Excess -8.4 L ABG Hemoglobin 8.3 L Oxyhemoglobin Sodium 136 L Potassium Chloride 93.8 L Carbon Dioxide 17 L BUN 141 H Creatinine 2.3 H Glucose 164 H POC Glucose 136 H Lactic Acid Uric Acid Calcium 7.4 L Phosphorus 12.40 H Magnesium Ferritin AST 54 H ALT Alkaline Phosphatase 175 H Lactate Dehydrogenase Total Creatine Kinase CK-MB (CK-2) Troponin T NT-Pro-B Natriuret Pep Total Protein 4.9 L Albumin 2.1 L Prealbumin Cholesterol LDL Cholesterol Direct HDL Cholesterol Vitamin B12 Folate Urine WBC (Auto) Urine Creatinine Crossmatch 03/27/22 03/27/22 05:17 05:17 WBC 41.8 H* RBC 2.69 L Hgb 7.6 L Hct 24.1 L MCH RDW 17.9 H Plt Count 511 H Lymph % (Auto) Lymph # (Auto) Seg Neutrophils % Seg Neuts % (Manual) Lymphocytes % (Manual) 2.0 L Nucleated RBC % 26.5 H Seg Neutrophils # Seg Neutrophils # Man 31.5 H Lymphocytes # (Manual) 0.9 L Monocytes # (Manual) 1.4 H Eosinophils # (Manual) Basophils # (Manual) PT INR D-Dimer Heparin Anti-Xa Level 0.25 L ABG pH ABG pO2 ABG HCO3 ABG O2 Saturation ABG Base Excess ABG Hemoglobin Oxyhemoglobin Sodium Potassium Chloride Carbon Dioxide BUN Creatinine Glucose POC Glucose Lactic Acid Uric Acid Calcium Phosphorus Magnesium Ferritin AST ALT Alkaline Phosphatase Lactate Dehydrogenase Total Creatine Kinase CK-MB (CK-2) Troponin T NT-Pro-B Natriuret Pep Total Protein Albumin Prealbumin Cholesterol LDL Cholesterol Direct HDL Cholesterol Vitamin B12 Folate Urine WBC (Auto) Urine Creatinine Crossmatch Chest x-ray: image reviewed Allied health notes reviewed: RT
[2022-03-27] MEDS: VANCOMYCIN 250 MG/10 ML ORAL LIQD FEEDTUBE SCH ×2 (17:38→23:53)
[2022-03-27] MEDS: BICITRA ORAL LIQD 30ML PO SCH (20:24)
[2022-03-27] MEDS: CALCIUM ACETATE 667 MG CAP FEEDTUBE SCH (20:25)
[2022-03-28] MEDS: metroNIDAZOLE/NS 500 MG/100 ML 500 MG/100 ML BAG IV SCH ×3 (00:36→17:58)
[2022-03-28] MEDS: NORepinephrine/NS 8 MG-250 ML 8 MG/250 ML INFUS..BTL IV SCH (00:36)
[2022-03-28] MEDS: VASOPRESSIN 20 UNIT in SODIUM CHLORIDE 0.9% 100 ML IV SCH (00:36)
[2022-03-28 04:17] LABS: ABG Base Excess -9.7 mmol/L (-2.0-3.0); ABG HCO3 17.3 mmol/L (20.0-26.0); ABG Methemoglobin 0.8 % (0.0-1.5); ABG Oxygen Saturation 66.5 % (95.0-99.0); ABG PCO2 43.2 mm Hg; ABG PH 7.22 pH Units (7.350-7.450); ABG PO2 44.8 mm Hg (80.0-90.0)
[2022-03-28 04:39] LABS: Hemoglobin 7.6 gm/dl (10.1-14.3)
[2022-03-28 05:01] LABS: Calcium 7.3 mg/dL (8.4-10.2)
[2022-03-28] MEDS: fentaNYL DRIP Premix 2,000 MCG/100 ML BAG IV SCH (05:31)
[2022-03-28] MEDS: VANCOMYCIN 250 MG/10 ML ORAL LIQD FEEDTUBE SCH ×3 (05:32→18:28)
[2022-03-28 06:44] LABS: ABG Base Excess -10.3 mmol/L (-2.0-3.0); ABG HCO3 16.2 mmol/L (20.0-26.0); ABG Methemoglobin 0.5 % (0.0-1.5); ABG Oxygen Saturation 97.4 % (95.0-99.0); ABG PCO2 38.6 mm Hg; ABG PH 7.241 pH Units (7.350-7.450); ABG PO2 106.1 mm Hg (80.0-90.0)
[2022-03-28] MEDS: levETIRAcetam 500 MG/5 ML ORAL LIQD FEEDTUBE SCH ×2 (09:09→22:37)
[2022-03-28] MEDS: MIDODRINE 5 MG TAB PO SCH ×3 (09:09→17:56)
[2022-03-28] MEDS: CALCIUM ACETATE 667 MG CAP FEEDTUBE SCH ×3 (09:10→22:37)
[2022-03-28] MEDS: HEPARIN/ 0.45% NACL DRIP 25,000 UNIT/500 ML BAG IV SCH (09:26)
[2022-03-28] MEDS: BICITRA ORAL LIQD 30ML PO SCH ×2 (09:26→14:15)
[2022-03-28] MEDS: FAMOTIDINE 20 MG/2 ML INJ IV SCH (09:26)
--- NOTE | 2022-03-28 11:10 | Progress Note ---
Assessment and Plan Cultures: 03/10/2022 blood culture: No growth 03/10/2022 sputum culture: Usual respiratory shital 03/14/2022 urine culture: No growth 03/18/2022 blood culture: No growth 03/18/2022 tracheal aspirate culture: no growth 03/18/2022 urine culture: No growth COVID-19 PCR: Negative 03/23/2022 C.difficile PCR: positive A/P: 61-year-old female past medical history of multiple sclerosis, seizures now with: #Septic shock, initially secondary to bilateral pneumonia, now with leukemoid reaction, diarrhea, C.difficile positive: ?fulminant C. difficile colitis #Acute hypoxic respiratory failure with ARDS: On vent with high requirements. #TANIYA: renally adjust abx. #Bilateral pneumonia: Cultures without any particular pathogen isolated. #Multiple sclerosis #Possible UTI: UA did show pyuria on admission, culture without any significant growth Recs: -Continue IV Flagyl and high dose PO vancomycin -Remains critically ill with multiple pressor requirements, high vent requireme nts. Too unstable for imaging, if possible would like to get a CT abdomen and pelvis to eval for megacolon/perforation, etc. Agree with goals of care discussions, recommend comfort care. If family wants to continue to pursue aggressive care, next step would be a general surgery consult due to concerns for fulminant C. difficile colitis, although the prognosis remains extremely poor with very high mortality risk Gabrielle Vásquez MD, FACP, [facility] O: [phone] F: [phone] C: [phone] Subjective Date of service: 03/28/22 Principal diagnosis: AHRF; Multifocal Pneumonia; Septic shock; NSTEMI; AMS; Seizures Interval history: Remains on the vent with high requirements, on pressors. Critically ill. Objective - Exam Narrative Exam: Physical Exam: Constitutional: intubated, on the vent Head, Ears, Nose: Normocephalic, atraumatic. External ears, nose normal Eyes: Conjunctivae/corneas clear. No icterus. No ptosis. Neck: intubated Oral: intubated Cardiovascular: S1, S2 + Respiratory: AE fair bilaterally and equal GI: Soft, bowel sounds hypo Musculoskeletal: No pedal edema, no cyanosis. Skin: No rash or abscess Hem/Lymphatic: No palpable cervical or supraclavicular nodes. No lymphangitis Psych: no agitation Neurological: intubated, on the vent, exam limited - Constitutional Vitals: Vital Signs Temp Pulse Resp BP Pulse Ox 98.4 F 66 29 H 103/68 96 03/28/22 03:55 03/28/22 08:25 03/28/22 08:16 03/28/22 08:25 03/28/22 08:25 Temperature -Last 24 Hours Temperature 98.4 F Temperature 99.7 F Temperature 98.1 F Temperature 97.5 F Temperature 97 F Temperature 92.7 F - Labs CBC & Chem 7: 03/28/22 04:17 03/28/22 04:17 Labs: Abnormal lab results 03/28/22 03/28/22 03/28/22 Range/Units 03:55 04:17 04:17 Hgb 7.6 L (10.1-14.3) gm/dl Hct 24.0 L (30.3-42.9) % Plt Count 491 H (140-440) K/mm3 Heparin Anti-Xa Level 0.26 L (0.3-0.7) U.I./ml ABG pH 7.220 L (7.350-7.450) pH Units ABG pO2 44.8 L (80.0-90.0) mm Hg ABG HCO3 17.3 L (20.0-26.0) mmol/L ABG O2 Saturation 66.5 L (95.0-99.0) % ABG Base Excess -9.7 L (-2.0-3.0) mmol/L ABG Hemoglobin 7.5 L (12.0-16.0) gm/dl Oxyhemoglobin 64.7 L (95.0-99.0) % Sodium (137-145) mmol/L Chloride (98-107) mmol/L Carbon Dioxide (22-30) mmol/L BUN (7-17) mg/dL Creatinine (0.6-1.2) mg/dL Glucose (65-100) mg/dL Calcium (8.4-10.2) mg/dL 03/28/22 03/28/22 Range/Units 04:17 06:20 Hgb (10.1-14.3) gm/dl Hct (30.3-42.9) % Plt Count (140-440) K/mm3 Heparin Anti-Xa Level (0.3-0.7) U.I./ml ABG pH 7.241 L (7.350-7.450) pH Units ABG pO2 106.1 H (80.0-90.0) mm Hg ABG HCO3 16.2 L (20.0-26.0) mmol/L ABG O2 Saturation (95.0-99.0) % ABG Base Excess -10.3 L (-2.0-3.0) mmol/L ABG Hemoglobin 7.8 L (12.0-16.0) gm/dl Oxyhemoglobin 94.8 L (95.0-99.0) % Sodium 134 L (137-145) mmol/L Chloride 91.9 L (98-107) mmol/L Carbon Dioxide 16 L (22-30) mmol/L BUN 151 H (7-17) mg/dL Creatinine 2.6 H (0.6-1.2) mg/dL Glucose 143 H (65-100) mg/dL Calcium 7.3 L (8.4-10.2) mg/dL
--- NOTE | 2022-03-28 11:45 | Progress Note ---
Assessment and Plan TANIYA - Still worsening BUN/Cr with volume overload. 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 CRRT would be prefered in this setting but not offered at this facility. May consider transfer to [facility] or [facility] [place] if possible. Discuss with Hospitalist Basilio - F/u Acidosis on Bicitra. F/u Phos on binder Hypotension - On multiple vasopressors. Titrate as tolerated for better SBP Edema with Volume overload - Would not advise diuretics until BP improves Anemia - F/u H/H Pneumonia/Resp Failure - Vent Mx per Pulm Multiple Sclerosis - F/u Mx per Neuro >36mins Subjective Date of service: 03/28/22 Principal diagnosis: AHRF; Multifocal Pneumonia; Septic shock; NSTEMI; AMS; Seizures Interval history: No change Objective - Vital Signs Vital signs: Vital Signs - 12hr 03/27/22 03/28/22 03/28/22 23:45 00:00 00:15 Temperature Pulse Rate 75 75 75 Respiratory 19 18 25 H Rate Blood Pressure 96/56 86/62 86/62 O2 Sat by Pulse 96 93 94 Oximetry 03/28/22 03/28/22 03/28/22 00:30 00:45 00:52 Temperature 99.7 F H Pulse Rate 75 76 Respiratory 20 18 Rate Blood Pressure 99/62 O2 Sat by Pulse 95 90 Oximetry 03/28/22 03/28/22 03/28/22 01:00 01:15 01:30 Temperature Pulse Rate 75 75 75 Respiratory 20 19 18 Rate Blood Pressure 92/61 102/66 93/66 O2 Sat by Pulse 94 95 97 Oximetry 03/28/22 03/28/22 03/28/22 01:45 02:00 02:15 Temperature Pulse Rate 74 76 74 Respiratory 20 18 19 Rate Blood Pressure 87/60 90/63 90/66 O2 Sat by Pulse 95 95 95 Oximetry 03/28/22 03/28/22 03/28/22 02:30 02:45 03:00 Temperature Pulse Rate 74 74 74 Respiratory 20 19 21 Rate Blood Pressure 93/62 91/55 94/61 O2 Sat by Pulse 93 95 96 Oximetry 03/28/22 03/28/22 03/28/22 03:15 03:30 03:46 Temperature Pulse Rate 73 73 73 Respiratory 14 16 18 Rate Blood Pressure 97/64 89/65 95/62 O2 Sat by Pulse 99 96 99 Oximetry 03/28/22 03/28/22 03/28/22 03:55 04:00 04:15 Temperature 98.4 F Pulse Rate 73 72 Respiratory 30 H 14 Rate Blood Pressure 96/64 96/57 O2 Sat by Pulse 98 99 Oximetry 03/28/22 03/28/22 03/28/22 04:30 04:46 05:00 Temperature Pulse Rate 72 71 70 Respiratory 18 20 20 Rate Blood Pressure 96/57 96/57 99/64 O2 Sat by Pulse 99 98 Oximetry 03/28/22 03/28/22 03/28/22 05:15 05:30 05:45 Temperature Pulse Rate 68 69 70 Respiratory 19 14 15 Rate Blood Pressure 103/64 95/64 96/65 O2 Sat by Pulse 97 98 99 Oximetry 03/28/22 03/28/22 03/28/22 06:00 06:16 06:30 Temperature Pulse Rate 70 70 70 Respiratory 22 30 H 30 H Rate Blood Pressure 93/64 94/70 94/65 O2 Sat by Pulse 99 96 99 Oximetry 03/28/22 03/28/22 03/28/22 06:45 07:00 07:15 Temperature Pulse Rate 69 69 68 Respiratory 30 H 22 27 H Rate Blood Pressure 104/64 92/62 101/67 O2 Sat by Pulse 99 99 99 Oximetry 03/28/22 03/28/22 03/28/22 07:30 07:45 08:00 Temperature 98.9 F Pulse Rate 68 67 68 Respiratory 15 23 26 H Rate Blood Pressure 97/66 106/65 99/63 O2 Sat by Pulse 99 99 99 Oximetry 03/28/22 03/28/22 03/28/22 08:15 08:16 08:25 Temperature Pulse Rate 67 66 Respiratory 29 H Rate Blood Pressure 103/68 103/68 O2 Sat by Pulse 96 100 96 Oximetry 03/28/22 03/28/22 03/28/22 08:30 08:45 09:00 Temperature Pulse Rate 66 66 66 Respiratory 30 H 27 H 30 H Rate Blood Pressure 108/66 105/63 98/62 O2 Sat by Pulse 99 99 98 Oximetry 03/28/22 03/28/22 03/28/22 09:15 09:30 09:45 Temperature Pulse Rate 65 64 63 Respiratory 30 H 18 20 Rate Blood Pressure 96/67 98/62 103/66 O2 Sat by Pulse 99 67 L Oximetry 03/28/22 03/28/22 03/28/22 10:00 10:15 10:30 Temperature Pulse Rate 65 66 66 Respiratory 29 H 30 H 30 H Rate Blood Pressure 99/66 97/66 99/66 O2 Sat by Pulse 97 92 91 Oximetry 03/28/22 03/28/22 03/28/22 10:45 11:00 11:15 Temperature Pulse Rate 66 65 65 Respiratory 21 18 18 Rate Blood Pressure 102/68 110/65 102/63 O2 Sat by Pulse 94 92 91 Oximetry - General Appearance General appearance: sedated on ventilator, intubated Respiratory: Present: Other (Air entry per vent) Cardiology: regular, S1S2 Gastrointestinal: other (Subcut edema) Neurologic: other (Sedated) - Lab 03/28/22 04:17 03/28/22 04:17 Most recent lab results ABG pH 7.241 pH Units (7.350-7.450) L 03/28/22 06:20 ABG pCO2 38.6 mm Hg 03/28/22 06:20 ABG pO2 106.1 mm Hg (80.0-90.0) H 03/28/22 06:20 ABG HCO3 16.2 mmol/L (20.0-26.0) L 03/28/22 06:20 ABG O2 Saturation 97.4 % (95.0-99.0) 03/28/22 06:20 Calcium 7.3 mg/dL (8.4-10.2) L 03/28/22 04:17 Phosphorus 12.40 mg/dL (2.5-4.5) H 03/27/22 05:07 Magnesium 1.80 mg/dL (1.7-2.3) 03/27/22 05:07 Urine Creatinine 34.4 mg/dL (0.1-20.0) H 03/19/22 14:40 Urine Sodium 18 mmol/L 03/19/22 14:40 Medications & Allergies - Medications Allergies/Adverse Reactions: Allergies Penicillins Allergy (Mild, Verified 01/11/19 12:20) Rash . Home Medications: Home Medications Medication Instructions Recorded Confirmed Last Taken Type Ciprofloxacin HCl [Ciprofloxacin 500 mg PO Q12H #14 tab 01/11/19 Unknown Rx TAB] levETIRAcetam [Keppra TAB] 500 mg PO BID #60 tablet 01/11/19 Unknown Rx Active Medications: Generic Name Dose Route Start Last Admin Trade Name Freq PRN Reason Stop Dose Admin Acetaminophen 650 mg 03/13/22 05:50 03/19/22 18:38 Acetaminophen 325 Mg/10.15 Ml Oral Liqd Unit Dose FEEDTUBE 650 mg Q6H PRN Administration Non Cardiac Pain or Temp>100.5 Calcium Acetate 2,001 mg 03/27/22 20:00 03/28/22 09:10 Calcium Acetate 667 Mg Cap FEEDTUBE 2,001 mg TID SHAHBAZ Administration Citric Acid/Sodium Citrate 30 ml 03/27/22 20:00 03/27/22 20:24 Bicitra Oral Liqd 30ml PO 30 ml TID SHAHBAZ Administration Famotidine 20 mg 03/26/22 10:00 03/27/22 09:19 Famotidine 20 Mg/2 Ml Inj IV 20 mg QDAY SHAHBAZ Administration Hydrophilic Ointment 1 applic 03/10/22 11:03 Lip Therapy Vaseline TP Q2HR PRN Dry Lips Fentanyl Citrate 2,000 mcg in 100 mls @ 4.16 mls/hr 03/10/22 11:00 03/28/22 05:31 Fentanyl Drip Premix IV 1 mcg/kg/hr TITR SHAHBAZ 4.16 mls/hr Administration Protocol 1 MCG/KG/HR NORepinephrine/NS 8 MG-250 ML 8 mg in 250 mls @ 3.75 mls/hr 03/10/22 11:00 03/28/22 00:36 Norepinephrine/Ns 8 Mg-250 Ml (Double Conc) IV 5 mcg/min TITRATE SHAHBAZ 9.375 mls/hr Administration Protocol 2 MCG/MIN Vasopressin 20 unit/ Sodium 101 mls @ 9.09 mls/hr 03/21/22 15:00 03/28/22 00:36 Chloride IV 0.03 units/min TITR SHAHBAZ 9.09 mls/hr Administration Protocol 0.03 UNITS/MIN Heparin Sodium/Sodium Chloride 25,000 unit in 500 mls @ 24 mls/hr 03/22/22 09:00 03/28/22 09:26 Heparin/ 0.45% Nacl-25,000 Unit/500 Ml IV 1,000 units/hr TITR SHAHBAZ 20 mls/hr Administration Protocol 1,200 UNITS/HR Metronidazole 500 mg in 100 mls @ 100 mls/hr 03/22/22 09:00 03/28/22 09:15 Flagyl 500 Mg/100 Ml IV 100 mls/hr Q8H SHAHBAZ Administration Protocol Levetiracetam 500 mg 03/12/22 10:00 03/28/22 09:09 Levetiracetam 500 Mg/5 Ml Oral Liqd FEEDTUBE 500 mg BID SHAHBAZ Administration Midodrine 15 mg 03/21/22 16:00 03/28/22 09:09 Midodrine 5 Mg Tab PO 15 mg TID@0800,1200,1600 SHAHBAZ Administration Multi-Ingred Cream/Lotion/Oil/Oint 1 applic 03/10/22 11:03 Mineral Oil/Petrolatum, White Ophth Oint 3.5 Gm OU Q4HR PRN Dry Eye(s) Ondansetron HCl 4 mg 03/10/22 02:56 Ondansetron 4 Mg/2 Ml Inj IV Q8H PRN Nausea And Vomiting Scopolamine 1 each 03/21/22 10:00 03/27/22 09:19 Scopolamine Transdermal Patch 72 Hr TD 1 each Q3D SHAHBAZ Administration Sodium Chloride 10 ml 03/10/22 10:00 03/28/22 09:12 Sodium Chloride 0.9% 10 Ml Flush Syringe IV 10 ml BID SHAHBAZ Administration Sodium Chloride 10 ml 03/10/22 02:56 Sodium Chloride 0.9% 10 Ml Flush Syringe IV PRN PRN LINE FLUSH Vancomycin HCl 500 mg 03/27/22 18:00 03/28/22 05:32 Vancomycin 250 Mg/10 Ml Oral Liqd FEEDTUBE 500 mg Q6HR SHAHBAZ Administration Protocol
[2022-03-28 12:19] LABS: Hematocrit 25.4 % (30.3-42.9); Hemoglobin 7.7 gm/dl (10.1-14.3); Mean Corpuscular HGB Conc 31 % (30-34); Mean Corpuscular Volume 92 fl (79-97); Platelet Count 510 K/mm3 (140-440); Red Blood Count 2.76 M/mm3 (3.65-5.03); Red Cell Distribution Width 18.4 % (13.2-15.2)
--- NOTE | 2022-03-28 15:14 | Progress Note ---
Assessment and Plan Assessment and plan: This is a 61-year-old female with MS and seizure disorder admitted with sepsis, hyponatremia, hypokalemia, elevated troponins and acute hypoxic respiratory failure Neuro: Acute metabolic encephalopathy, h/o Multiple Sclerosis, Seizure disorder -Neurology consulted, appreciate recommendations -Sedated with Fentanyl gtt -RASS goal 0 to -1 -Keppra -Reorientation as needed -Maintain sleep-wake cycle -Seizure precautions -As needed analgesia -CT head shows vascular angioplasty without clear evidence of acute intracranial hemorrhage -MRI brain with and without contrast and MRI C-spine with and without contrast pending -> remains too unstable for exam -EEG considered abnormal and is compatible with diffuse encephalopathy of perhaps significant brain sedation or neuro active medication or daily combination of both. Absence of epileptiform abnormality but would not rule out possibility of epilepsy -UDS (+) for opiates -Prealbumin 0.044, vitamin B 12 1021, folate 2.15, syphilis nonreactive Cardiac: Hypotension, Elevated troponin, Septic Shock -Cardiology consulted, appreciate recommendations -BNP 04677 -Blood pressure monitoring per protocol -Vasopressor support with Levophed gtt and midodrine tID -MAP goal greater than 65 -Echocardiogram LVEF 50%, no pulmonary HTN Respiratory: ARDS, Acute hypoxic respiratory failure -CCM consulted, appreciate recommendations -Intubated on 03/10 with 7.5 OETT at 23 cm at the lips in the ED -A.m. vent settings: AC TV 400, Rate 30, PEEP 14, FiO2 @ 100% -See RT notes for titration -s/p lasix x 2 03/14 and 03/15 -A.m. ABG and CXR noted -VAP bundle -SPO2 monitoring GI: Moderate Protein Calorie Malnutrition, Transaminitis -24 hours + 1832 mL -PPI -NTR consulted for tube feedings -BR and BMS stopped d/t diarrhea -Trend LFTs : Acute Kidney Injury likely secondary to acute tubular necrosis, azotemia, severe hyponatremia (improved) -Nephrology consulted, appreciate recommendations -Record intake and output -s/p Sodium Bicarb gtt -Bladder scan qHS -Renally dose medications -Avoid nephrotoxic medications -Replete phosphate -Trend BMP ID: Septic Shock, CAP, C Diff Diarrhea -Covid 19 PCR (-) -Infectious disease consulted, appreciate recommendation -Antibiotic therapy: IV Flagyl and high dose PO vancomycin -f/u blood culture -Monitor WBC and temperature curve Endo: NAD -Avoid hypoglycemia -SSI -Accu-Cheks q. 6hr Heme: Anemia,Leukocytosis -Trend CBC -Transfuse hemoglobin less than 7 -SCDs to BLE while in bed The high probability of a clinically significant, sudden or life threatening deterioration of the [multiple] system(s) required my full and direct attention, intervention and personal management. The aggregate critical care time was [60] minutes. This time is in addition to time spent performing reported procedures but includes the following: [x] Data Review and interpretation [x] Patient assessment and monitoring of vital signs [x] Documentation [x] Medication orders and management Disposition Plan: icu Total Time Spent with Patient (Minutes): 60 History Interval history: This is a 61-year-old female with multiple sclerosis and seizure disorder who presented to emergency department on 03/10 via EMS for evaluation of shortness of breath and difficulty breathing. Upon arrival of EMS patient's SPO2 was in the 50s and she was hypotensive to 80s over 50s and was started on IV fluids in route and placed on CPAP. Upon arrival to the emergency department patient was placed on BiPAP and work-up in the emergency department included a CXR which showed multifocal pneumonia, lab work revealed hyponatremia, hypokalemia, lactic acidosis, metabolic acidosis and elevated troponins. Patient was started on empiric antibiotics and admitted to the hospital service with Sepsis, acute hypoxic respiratory failure, electrolyte imbalances and elevated troponins with consults to cardiology, pulmonology and nephrology. Hospital Course to Date: 03/10: S/p intubation this am due to tachypnea and worsen mental status. Current sedated and stable on the vent. Patient is now on low dose Levophed gtt due to h ypotension. Presented with a Na level of 119, on continuous NS at 125ml, repeat BMP pending. Continue IVF hydration and serial Na Q6hrs. Nephrology is also following. Continue empiric IV Abx for CAP, COVID PCR pending, ID consult pending. D-Dimer also elevated, BLE doppler ordered, therapeutic Lovenox initiated. D/W CCM patient is too unstable for transport at this time, possible CTA chest in the am or once patient is more stable. Cardiology was also consulted for elevated troponin X2, EKG noted with no significant ST changes, 2D echo pending. Resume home AEDs, continue seizure precautions. Monitor and replace electrolytes as needed 03/11: Intubated and low dose fentanyl gtt. Open eyes spontaneously but does not track, not following commands. NA level 132 this am, Nabcarb gtt initiated per Nephro. CT head/brain w/o con ordered to r/o intracranial abnormality. Wean off sedation to better assess mental status. Remains on Levophed gtt, afebrile, but with leukocytosis this am. This am CXR and ABG noted, with significant improvement. D/w CCM, PE less likely will hold off on CTA chest for now. Lovenox switched to Qday. Continue empiric IV Abx, ID consult pending. 03/12: Discontinue bicarb gtt, replete phos and potassium, added miralax. Remain on levo and fent gtt 03/13: MRI brain/C-spine completed, EEG completed. Hyponatremia improved, patient remains on Levophed. Had a temperature of 101.3 remains on cefepime. Will defer to ID for abx. Will reculture on next temperature spike. 03/14: Overnight patient had hypoxia issues and FiO2 was increased to 100%, received lasix with repeat dose in AM. Hypotension and increase in levophed. Replete K. 03/15: hypoxia overnight and currently on 100%. RN attempted to lay flat and patient desatted to 88%. Will attempt again later today. Given lasix again. Hopeful to be able to have MRI today. Type and screen today for downtrending h/h , Wean FiO2 as tolerated, repleated phos with sodium phos. 03/16: hypoxic, fio2: 80%, desats on positional movements. Remains on levophed gtt, attempting to wean off. Remains too unstable for MRI brain. May benefit from steroids if altered mentation believed to be from MS flare. 03/17: Hypoxic overnight. FIO2 increased to 95%. Continue icu level supportive care with vent, levophed Gtt, merrem. Hgb 6.6 this AM, ordered 1 unit prbc. 03/18: WBC uptrending, persisting fevers. will re-culture with urine cx, sputum cx and bcx. Overall poor prognosis. Will attempt GOK discussion with family. 03/19: With persistent episodes of hypoxia overnight and this am. On 65% Fio2 and peep of 14 this am. Fevers improved, but leukocytosis worsen this am. Repeat cultures pending, continue current IV Abx per ID. Patient remains on Levophed gtt. X1 dose of kayexalate this am for hyperkalemia, worsening azotemia also noted, Nephrology is also following. Overall poor prognosis, possible GOC discussion with patient's son sometimes this week. 03/20: Up to 80% Fio2 and peep of 14 this am, still with periods of hypoxia with mild stimuli/movement. Severe generalized edema today with worsening CXR. Azotemia worsen s/p bcarb gtt. D/w Nephro, X1 dose of IV lasix and 25% Albumin given and Midodrine TID added. Overal poor prognosis. Possible GOC discussion with patient's son sometimes this week. 03/21: Mentation unchanged, remains on high vent settings. Patient did not respond to IV lasix yesterday, only 415ml UOP in the last 24hrs. Renal function worsen this am with hyperkalemia, X1 dose of kayexalate ordered. Nephrology is also following. Continue to monitor renal function and electrolytes. Possible phone conference today with son by the attending. Very poor prognosis. 03/22: Remains on high vent setting, respiratory acidosis noted from recent ABG. Vent settings adjusted by [facility]. Repeat ABG pending. With worsening renal function this am, additional Kayexalate given. Sudheer in WBCs this am despite IV Abx, now on 2 pressors, recent cultures with no growth to date. Flagyl and PO Vanco initiated empirically, C.Diff PCR pending. ID is also following. Heparin gtt also initiated per [facility], c/f for possible pulmonary shunting. Thorough discussion with patient's son and the attending yesterday in regards to patient's condition, overall poor prognosis, and goal of care. Patient's son wants all aggressive treatment and measures including trach and PEG at this time. Patient remains a FULL code status. 03/23: Condition is unchanged. Febrile this am with worsen leukocytosis. Back on merem, now on IV and PO vanco, Levaquin, and flagyl per ID. C.Diff PCR pending. ID recommendation noted. D/w CCM, plan for CT chest/Abd/Pelvis today. 03/24: Continue to decompensated, at 100% Fio2 and 14 of PEEP this am. Patient too unstable for transport due to worsening hypotension, now on Bicarb gtt. Remain on Levophed gtt and heparin gtts. C.diff PCR came back positive. Leukmoid reaction with thromocytosis noted, patient remains on IV Abx & PO vanco per ID. Renal function continue to decline, D/w Nephrology patient is too unstable for HD at this time due to high pressor requirement. Very poor prognosis. 03/25: Remains on high vent settings with tachypneia and unsynchronized with the vent this morning. Sedation held overnight due to worsen hypotension, now back on 2 pressors and still on a bcarb gtt. Resume sedation for vent synchony and tachypnea. CT scan cancelled patient too unstable for transport. Only 50cc of UOP overnight, renal function is worsening. Patient is too unstable for HD per Nephro. Phone conference with patient's son and daughter-in law and CCM yesterday. Thorough discussion in regards to patient's worsening condition and very poor prognosis. GOC discussion was readdressed. They verbalized understanding of the info provided and voiced that the will contact us back with their final decision. Patient remains a FULL code status at this time 03/26 started stress dose steroids 03/27: forrest overnight 03/28: Patient has worsening renal function this morning. Dr. Becerril will discuss goals of care with family. Patient still remains on Levophed. Hospitalist Physical - Constitutional Vitals: Temp Pulse Resp BP Pulse Ox 98.9 F 65 15 101/70 91 03/28/22 08:00 03/28/22 12:25 03/28/22 12:00 03/28/22 12:25 03/28/22 12:25 General appearance: Present: no acute distress, other (Intubated and Sedated) - EENT Eyes: Present: PERRL - Neck Neck: Absent: masses or JVD, cervical LAD - Respiratory Respiratory effort: normal Respiratory: bilateral: diminished - Cardiovascular Rhythm: regular Heart Sounds: Present: S1 & S2. Absent: systolic murmur, diastolic murmur - Extremities Extremities: no ischemia, pulses intact, pulses symmetrical, normal temperature, normal color Extremity abnormal: edema Peripheral Pulses: within normal limits - Abdominal General gastrointestinal: soft, non-tender, non-distended, hypoactive bowel sounds - Integumentary Integumentary: Present: dry - Psychiatric Psychiatric: other - Neurologic Neurologic: other (intact cough/gag, PERRL) - Allied Health Allied health notes reviewed: nursing, RT, social work HEART Score - HEART Score Troponin: Troponin T 0.032 ng/mL (0.00-0.029) H D 03/10/22 12:24 Results - Labs CBC & Chem 7: 03/28/22 04:17 03/28/22 04:17 Labs: Laboratory Last Values WBC 52.7 K/mm3 (4.5-11.0) H* 03/28/22 04:17 RBC 2.76 M/mm3 (3.65-5.03) L 03/28/22 04:17 Hgb 7.6 gm/dl (10.1-14.3) L 03/28/22 04:17 Hgb 7.7 gm/dl (10.1-14.3) L 03/28/22 04:17 Hct 24.0 % (30.3-42.9) L 03/28/22 04:17 Hct 25.4 % (30.3-42.9) L 03/28/22 04:17 MCV 92 fl (79-97) 03/28/22 04:17 MCH 28 pg (28-32) 03/28/22 04:17 MCHC 31 % (30-34) 03/28/22 04:17 RDW 18.4 % (13.2-15.2) H 03/28/22 04:17 Plt Count 491 K/mm3 (140-440) H 03/28/22 04:17 Plt Count 510 K/mm3 (140-440) H 03/28/22 04:17 Lymph % (Auto) 8.9 % (13.4-35.0) L 03/11/22 05:00 [place] % (Auto) 4.2 % (0.0-7.3) 03/11/22 05:00 Eos % (Auto) 0.1 % (0.0-4.3) 03/11/22 05:00 Baso % (Auto) 0.2 % (0.0-1.8) 03/11/22 05:00 Lymph # (Auto) 1.2 K/mm3 (1.2-5.4) 03/11/22 05:00 [place] # (Auto) 0.6 K/mm3 (0.0-0.8) 03/11/22 05:00 Eos # (Auto) 0.0 K/mm3 (0.0-0.4) 03/11/22 05:00 Baso # (Auto) 0.0 K/mm3 (0.0-0.1) 03/11/22 05:00 Add Manual Diff Complete 03/27/22 05:17 Total Counted 200 03/27/22 05:17 Seg Neutrophils % 86.6 % (40.0-70.0) H 03/11/22 05:00 Seg Neuts % (Manual) 69.0 % (40.0-70.0) 03/27/22 05:17 Band Neutrophils % 14.0 % 03/27/22 05:17 Lymphocytes % (Manual) 2.0 % (13.4-35.0) L 03/27/22 05:17 Reactive Lymphs % (Man) 0 % 03/27/22 05:17 Monocytes % (Manual) 3.0 % (0.0-7.3) 03/27/22 05:17 Eosinophils % (Manual) 0.5 % (0.0-4.3) 03/27/22 05:17 Basophils % (Manual) 0 % (0.0-1.8) 03/27/22 05:17 Metamyelocytes % 11.5 % 03/27/22 05:17 Myelocytes % 0 % 03/27/22 05:17 Promyelocytes % 0 % 03/27/22 05:17 Blast Cells % 0 % 03/27/22 05:17 Nucleated RBC % 26.5 % (0.0-0.9) H 03/27/22 05:17 Seg Neutrophils # 11.8 K/mm3 (1.8-7.7) H 03/11/22 05:00 Seg Neutrophils # Man 31.5 K/mm3 (1.8-7.7) H 03/27/22 05:17 Band Neutrophils # 6.4 K/mm3 03/27/22 05:17 Lymphocytes # (Manual) 0.9 K/mm3 (1.2-5.4) L 03/27/22 05:17 Abs React Lymphs (Man) 0.0 K/mm3 03/27/22 05:17 Monocytes # (Manual) 1.4 K/mm3 (0.0-0.8) H 03/27/22 05:17 Eosinophils # (Manual) 0.2 K/mm3 (0.0-0.4) 03/27/22 05:17 Basophils # (Manual) 0.0 K/mm3 (0.0-0.1) 03/27/22 05:17 Metamyelocytes # 5.2 K/mm3 03/27/22 05:17 Myelocytes # 0.0 K/mm3 03/27/22 05:17 Promyelocytes # 0.0 K/mm3 03/27/22 05:17 Blast Cells # 0.0 K/mm3 03/27/22 05:17 WBC Morphology Not Reportable 03/27/22 05:17 Hypersegmented Neuts Not Reportable 03/27/22 05:17 Hyposegmented Neuts Few 03/27/22 05:17 Hypogranular Neuts Not Reportable 03/27/22 05:17 Smudge Cells Not Reportable 03/27/22 05:17 Toxic Granulation Not Reportable 03/27/22 05:17 Toxic Vacuolation Not Reportable 03/27/22 05:17 Dohle Bodies Not Reportable 03/27/22 05:17 Pelger-Huet Anomaly Not Reportable 03/27/22 05:17 Luis Rods Not Reportable 03/27/22 05:17 Platelet Estimate Consistent w auto 03/27/22 05:17 Clumped Platelets Not Reportable 03/27/22 05:17 Plt Clumps, EDTA Not Reportable 03/27/22 05:17 Large Platelets Rare 03/27/22 05:17 Giant Platelets Not Reportable 03/27/22 05:17 Platelet Satelliting Not Reportable 03/27/22 05:17 Plt Morphology Comment Not Reportable 03/27/22 05:17 RBC Morphology Not Reportable 03/27/22 05:17 Dimorphic RBCs Not Reportable 03/27/22 05:17 Polychromasia Few 03/27/22 05:17 Hypochromasia 1+ 03/27/22 05:17 Poikilocytosis 1+ 03/27/22 05:17 Anisocytosis 1+ 03/27/22 05:17 Microcytosis Not Reportable 03/27/22 05:17 Macrocytosis Not Reportable 03/27/22 05:17 Spherocytes Not Reportable 03/27/22 05:17 Pappenheimer Bodies Not Reportable 03/27/22 05:17 Sickle Cells Not Reportable 03/27/22 05:17 Target Cells Rare 03/27/22 05:17 Tear Drop Cells Not Reportable 03/27/22 05:17 Ovalocytes Not Reportable 03/27/22 05:17 Helmet Cells Not Reportable 03/27/22 05:17 [place] Bodies Not Reportable 03/27/22 05:17 [place] Rings Not Reportable 03/27/22 05:17 Rudy Cells Rare 03/27/22 05:17 Bite Cells Not Reportable 03/27/22 05:17 Crenated Cell Not Reportable 03/27/22 05:17 Elliptocytes Not Reportable 03/27/22 05:17 Acanthocytes (Spur) Few 03/27/22 05:17 Rouleaux Not Reportable 03/27/22 05:17 Hemoglobin C Crystals Not Reportable 03/27/22 05:17 Schistocytes Not Reportable 03/27/22 05:17 Malaria parasites Not Reportable 03/27/22 05:17 Tani Bodies Not Reportable 03/27/22 05:17 Hem Pathologist Commnt No 03/27/22 05:17 PT 17.2 Sec. (12.2-14.9) H 03/22/22 09:30 INR 1.25 (0.87-1.13) H 03/22/22 09:30 APTT 33.4 Sec. (24.2-36.6) 03/22/22 09:30 D-Dimer 787.78 ng/mlDDU (0-234) H 03/10/22 05:45 Heparin Anti-Xa Level 0.26 U.I./ml (0.3-0.7) L 03/28/22 04:17 ABG pH 7.241 pH Units (7.350-7.450) L 03/28/22 06:20 ABG pCO2 38.6 mm Hg 03/28/22 06:20 ABG pO2 106.1 mm Hg (80.0-90.0) H 03/28/22 06:20 ABG HCO3 16.2 mmol/L (20.0-26.0) L 03/28/22 06:20 ABG O2 Saturation 97.4 % (95.0-99.0) 03/28/22 06:20 ABG O2 Content 10.6 (0.0-44) 03/28/22 06:20 ABG Base Excess -10.3 mmol/L (-2.0-3.0) L 03/28/22 06:20 ABG Hemoglobin 7.8 gm/dl (12.0-16.0) L 03/28/22 06:20 ABG Carboxyhemoglobin 2.1 % (0.0-5.0) 03/28/22 06:20 ABG Methemoglobin 0.5 % (0.0-1.5) 03/28/22 06:20 Oxyhemoglobin 94.8 % (95.0-99.0) L 03/28/22 06:20 FiO2 100 % 03/28/22 06:20 Sodium 134 mmol/L (137-145) L 03/28/22 04:17 Potassium 4.1 mmol/L (3.6-5.0) 03/28/22 04:17 Chloride 91.9 mmol/L (98-107) L 03/28/22 04:17 Carbon Dioxide 16 mmol/L (22-30) L 03/28/22 04:17 Anion Gap 30 mmol/L 03/28/22 04:17 BUN 151 mg/dL (7-17) H 03/28/22 04:17 Creatinine 2.6 mg/dL (0.6-1.2) H 03/28/22 04:17 Estimated GFR 19 ml/min 03/28/22 04:17 BUN/Creatinine Ratio 58 % 03/28/22 04:17 Glucose 143 mg/dL (65-100) H 03/28/22 04:17 POC Glucose 136 mg/dL (70-105) H 03/26/22 23:39 Osmolality 285 Mosm/kg 03/10/22 12:24 Lactic Acid 0.90 mmol/L (0.7-2.0) 03/18/22 05:20 Uric Acid 1.6 mg/dL (3.5-7.6) L 03/10/22 13:15 Calcium 7.3 mg/dL (8.4-10.2) L 03/28/22 04:17 Phosphorus 12.40 mg/dL (2.5-4.5) H 03/27/22 05:07 Magnesium 1.80 mg/dL (1.7-2.3) 03/27/22 05:07 Ferritin 219.2 ng/mL (10.0-200.0) H 03/10/22 05:45 Total Bilirubin 0.20 mg/dL (0.1-1.2) 03/27/22 05:07 AST 54 units/L (5-40) H 03/27/22 05:07 ALT 14 units/L (7-56) 03/27/22 05:07 Alkaline Phosphatase 175 units/L (35-129) H 03/27/22 05:07 Lactate Dehydrogenase 210 units/L (91-180) H 03/10/22 05:45 Total Creatine Kinase 901 units/L (30-135) H 03/10/22 12:24 CK-MB (CK-2) 15.3 ng/mL (0.0-4.0) H 03/10/22 12:24 CK-MB (CK-2) Rel Index 1.6 (0-4) 03/10/22 12:24 Troponin T 0.032 ng/mL (0.00-0.029) H D 03/10/22 12:24 C-Reactive Protein < 0.03 mg/dL (0.00-1.30) 03/10/22 05:45 NT-Pro-B Natriuret Pep 10054 pg/mL (0-900) H 03/10/22 01:25 Total Protein 4.9 g/dL (6.3-8.2) L 03/27/22 05:07 Albumin 2.1 g/dL (3.9-5) L 03/27/22 05:07 Albumin/Globulin Ratio 0.8 % 03/27/22 05:07 Prealbumin 0.044 g/L (0.200-0.400) L 03/12/22 18:40 Triglycerides 47 mg/dL (2-149) 03/10/22 01:25 Cholesterol 259 mg/dL (50-199) H 03/10/22 01:25 LDL Cholesterol Direct 187 mg/dL (50-130) H 03/10/22 01:25 HDL Cholesterol 63 mg/dL (40-59) H 03/10/22 01:25 Cholesterol/HDL Ratio 4.11 % 03/10/22 01:25 Lipase 15 units/L (13-60) 03/10/22 01:25 Vitamin B1 28 nmol/L (8-30) 03/13/22 08:00 Vitamin B12 1021 pg/mL (211-911) H 03/12/22 18:40 Folate 2.15 ng/mL (7.3-26.0) L 03/12/22 18:40 Procalcitonin 3.92 ng/mL (<0.15) 03/10/22 05:45 TSH 1.290 mlU/mL (0.270-4.200) 03/12/22 18:40 Urine Color Yellow (Yellow) 03/10/22 18:20 Urine Turbidity Clear (Clear) 03/10/22 18:20 Urine pH 6.0 (5.0-7.0) 03/10/22 18:20 Ur Specific [place] 1.010 (1.003-1.030) 03/10/22 18:20 Urine Protein <15 mg/dl mg/dL (Negative) 03/10/22 18:20 Urine Glucose (UA) Neg mg/dL (Negative) 03/10/22 18:20 Urine Ketones Tr mg/dL (Negative) 03/10/22 18:20 Urine Blood Sm (Negative) 03/10/22 18:20 Urine Nitrite Neg (Negative) 03/10/22 18:20 Urine Bilirubin Neg (Negative) 03/10/22 18:20 Urine Urobilinogen < 2.0 mg/dL (<2.0) 03/10/22 18:20 Ur Leukocyte Esterase Lg (Negative) 03/10/22 18:20 Urine WBC (Auto) 105.0 /HPF (0.0-6.0) H 03/10/22 18:20 Urine RBC (Auto) 2.0 /HPF (0.0-6.0) 03/10/22 18:20 U Epithel Cells (Auto) < 1.0 /HPF (0-13.0) 03/10/22 18:20 Urine Bacteria (Auto) 1+ /HPF (Negative) 03/10/22 18:20 Urine Osmolality 368 Mosm/kg 03/10/22 18:20 Urine Creatinine 34.4 mg/dL (0.1-20.0) H 03/19/22 14:40 Urine Sodium 18 mmol/L 03/19/22 14:40 Random Vancomycin 24.4 ug/mL (0-40.0) 03/26/22 03:30 Urine Opiates Screen Presumptive positive 03/10/22 18:20 Urine Methadone Screen Presumptive negative 03/10/22 18:20 Ur Barbiturates Screen Presumptive negative 03/10/22 18:20 Ur Phencyclidine Scrn Presumptive negative 03/10/22 18:20 Ur Amphetamines Screen Presumptive negative 03/10/22 18:20 U Benzodiazepines Scrn Presumptive negative 03/10/22 18:20 Urine Cocaine Screen Presumptive negative 03/10/22 18:20 U Marijuana (THC) Screen Presumptive negative 03/10/22 18:20 Drugs of Abuse Note Disclamer 03/10/22 18:20 Copper 118 mcg/dL (70-175) 03/12/22 18:40 Syphilis IgG/IgM Ab Nonreactive (NonReactive) 03/12/22 18:40 C. difficile Tox (PCR) Positive (Negative) 03/23/22 06:30 SARS-CoV-2 (PCR) Negative (Negative) 03/10/22 09:50 Blood Type O POSITIVE 03/15/22 09:42 Antibody Screen Negative 03/15/22 09:42 Crossmatch See Detail 03/15/22 09:42 [place]/IV: Voiding Method Incontinent Active Medications - Current Medications Current Medications: Generic Name Dose Route Start Last Admin Trade Name Freq PRN Reason Stop Dose Admin Acetaminophen 650 mg 03/13/22 05:50 03/19/22 18:38 Acetaminophen 325 Mg/10.15 Ml Oral Liqd Unit Dose FEEDTUBE 650 mg Q6H PRN Administration Non Cardiac Pain or Temp>100.5 Calcium Acetate 2,001 mg 03/27/22 20:00 03/28/22 14:15 Calcium Acetate 667 Mg Cap FEEDTUBE 2,001 mg TID SHAHBAZ Administration Citric Acid/Sodium Citrate 30 ml 03/27/22 20:00 03/28/22 14:15 Bicitra Oral Liqd 30ml PO 30 ml TID SHAHBAZ Administration Famotidine 20 mg 03/26/22 10:00 03/28/22 09:26 Famotidine 20 Mg/2 Ml Inj IV 20 mg QDAY SHAHBAZ Administration Hydrophilic Ointment 1 applic 03/10/22 11:03 Lip Therapy Vaseline TP Q2HR PRN Dry Lips Fentanyl Citrate 2,000 mcg in 100 mls @ 4.16 mls/hr 03/10/22 11:00 03/28/22 05:31 Fentanyl Drip Premix IV 1 mcg/kg/hr TITR SHAHBAZ 4.16 mls/hr Administration Protocol 1 MCG/KG/HR NORepinephrine/NS 8 MG-250 ML 8 mg in 250 mls @ 3.75 mls/hr 03/10/22 11:00 03/28/22 14:19 Norepinephrine/Ns 8 Mg-250 Ml (Double Conc) IV 2 mcg/min TITRATE SHAHBAZ 3.75 mls/hr Titration Protocol 2 MCG/MIN Vasopressin 20 unit/ Sodium 101 mls @ 9.09 mls/hr 03/21/22 15:00 03/28/22 11:45 Chloride IV Infused TITR SHAHBAZ Titration Protocol 0.03 UNITS/MIN Heparin Sodium/Sodium Chloride 25,000 unit in 500 mls @ 24 mls/hr 03/22/22 09:00 03/28/22 09:26 Heparin/ 0.45% Nacl-25,000 Unit/500 Ml IV 1,000 units/hr TITR SHAHBAZ 20 mls/hr Administration Protocol 1,200 UNITS/HR Metronidazole 500 mg in 100 mls @ 100 mls/hr 03/22/22 09:00 03/28/22 09:15 Flagyl 500 Mg/100 Ml IV 100 mls/hr Q8H SHAHBAZ Administration Protocol Levetiracetam 500 mg 03/12/22 10:00 03/28/22 09:09 Levetiracetam 500 Mg/5 Ml Oral Liqd FEEDTUBE 500 mg BID SHAHBAZ Administration Midodrine 15 mg 03/21/22 16:00 03/28/22 13:35 Midodrine 5 Mg Tab PO 15 mg TID@0800,1200,1600 SHAHBAZ Administration Multi-Ingred Cream/Lotion/Oil/Oint 1 applic 03/10/22 11:03 Mineral Oil/Petrolatum, White Ophth Oint 3.5 Gm OU Q4HR PRN Dry Eye(s) Ondansetron HCl 4 mg 03/10/22 02:56 Ondansetron 4 Mg/2 Ml Inj IV Q8H PRN Nausea And Vomiting Scopolamine 1 each 03/21/22 10:00 03/27/22 09:19 Scopolamine Transdermal Patch 72 Hr TD 1 each Q3D SHAHBAZ Administration Sodium Chloride 10 ml 03/10/22 10:00 03/28/22 09:12 Sodium Chloride 0.9% 10 Ml Flush Syringe IV 10 ml BID SHAHBAZ Administration Sodium Chloride 10 ml 03/10/22 02:56 Sodium Chloride 0.9% 10 Ml Flush Syringe IV PRN PRN LINE FLUSH Vancomycin HCl 500 mg 03/27/22 18:00 03/28/22 14:16 Vancomycin 250 Mg/10 Ml Oral Liqd FEEDTUBE 500 mg Q6HR SHAHBAZ Administration Protocol Nutrition/Malnutrition Assess - Dietary Evaluation Nutrition/Malnutrition Findings: Nutrition Notes Start: 03/10/22 12:22 Freq: Status: Active Protocol: Document 03/28/22 13:45 JOSH (Rec: 03/28/22 14:14 JOSH [id number]) Nutrition Notes Initial or Follow up Reassessment Current Diagnosis Hypertension,Respiratory Failure,Malnutrition Other Pertinent Diagnosis MS, CAP, Seizure, Metabolic Encephalopathy, Septic Shock, NSTEMI, UTI ... Current Diet TF-Vital AF 1.2 En @ 60 ml/hr (since D 03/10). Labs/Tests 03/28: Na 134, Cl 91.9, CO2 16 , BUN 151, Crea 2.6, Glu 143, Ca 7.3. Pertinent Medications 03/28: Phoslo, Bicitra, Vasoppresin 20U, others nutritionally unremarkable. Height 5 ft 6 in Weight 83.2 kg [place] Body Weight (kg) 59.09 BMI 29.6 Weight change and time frame No body weight change reported in 3 weeks Weight Status Overweight Subjective/Other Information RD consult for routine F/U on TF tolerance/continuation. TF continues as prescribed, and well tolerated, according to RN notes. Pt remains on Mechanical Ventilation, O2 saturation @ 96%, according to Physical Assessment History notes. Pt presents generalized pitting edema 4+, according to Physical Assessment History notes. Pt presents an unspecified area of concern for skin risk at the time, according to Physical Assessment History notes. Percent of energy/protein needs met: Prescribed TF-Vital AF 1.2 En @ 60 ml/hr provides for energy/protein needs (1,728 Kcal/108 g) during LOS, 100% Kcal; 100% AA. Burn Absent Trauma Absent GI Symptoms Diarrhea Food Allergy No Skin Integrity/Comment Unspecified area of concern. Current % PO Other Minimum of two criteria No Fluid Accumulation Moderate to Severe (severe) [employer] Strength N/A (non-severe) Protein-Calorie Malnutrition N\A #1 Nutrition Diagnosis Inadequate oral intake Diagnosis Progress(for reassessment Continues documentation) Is patient on ventilator? Yes Is Patient Ambulatory and/or Out of Bed No REE-([facility]-confined to bed) 1713.168 Calculation Used for Recommendations [facility] Additional Notes Protein: 1-1.2 g/Kg ABW; 100- 166 g/day. Fluids: 1 ml/Kcal, or as per MD. Nutrition Intervention Nutrition Support: Continue TF-Vital AF 1.2 En @ 60 ml/hr. Flush: 100 ml water Q 4 hr, or as per MD. Kcal 1,728 Protein (gm) 108 Carbohydrates (gm) 159 Fat (gm) 78 Fluid (mL) 1,168 Fiber (gm) 7 % RDI: 100% Kcal; 100% AA. Goal #1 Provide at least 75% of energy /protein needs through Enteral Feeding during LOS. Follow-Up By: 04/04/22 Additional Comments Continue monitoring TF tolerance, Ventilation Status, Pressor support, and BM.
--- NOTE | 2022-03-28 15:56 | XRay Report ---
CHEST 1 VIEW 03/28/2022 2:58 AM INDICATION / CLINICAL INFORMATION: sob. COMPARISON: 03/26/2022 FINDINGS: SUPPORT DEVICES: Unchanged. HEART / MEDIASTINUM: No significant abnormality. LUNGS / PLEURA: Persistent bilateral infiltrates left greater than right with mild improvement on the right and mild worsening on the left. Probable layering left pleural effusion. No pneumothorax. ADDITIONAL FINDINGS: No significant additional findings. IMPRESSION: Overall, no significant change accounting for differences in technique. Signer Name: Mauricio Montiel MD Signed: 03/28/2022 4:39 AM Workstation Name: [id number]
--- NOTE | 2022-03-28 18:28 | Progress Note ---
Assessment and Plan This is a 61-year-old female with known past medical history of Multiple Sclerosis and seizure disorder admitted for sepsis, Hyponatremia, and acute hypoxic respiratory failure requiring ventilatory support Acute Hypoxemic Respiratory Failure, on MVS ARDS Septic shock -2 pressor with MODS Multifocal Pneumonia/CAP- possible aspiration TANIYA C.diff PCR positive Leukemoid reaction with thromocytosis NSTEMI/Elevated Troponin- probable type 2 ischemia Elevated BNP Acute Metabolic Encephalopathy H/o Seizure Disorder Elevated D-Dimer Moderate Protein Calorie Malnutrition Will need HD, but deemed unsafe Worsening leukocytosis Supportive transfusions as clinically indicated to keep MAP>65 Updated the son and DIL- they continue to want full care at this time -continue to titrate supplemental oxygen to keep SpO2 90-92% -VAP bundle addressed, aspiration precautions HOB >40 -continue lung protective strategies; ARDS net protocol -Bicarbonate for pH <7.2 per ARDS net protocol -continue bronchodilators with pulmonary hygiene per RT -Continue Antibiotics per ID- on Vancomyin (po ), Metronidazole IV -Continue to trend temperature curve and WCC -CXR, ABG as clinically indicated - continue accuchecks with glycemic control per SSI (While critically ill target blood glucose of 140-180 mg/dL; avoid hypoglycemia) - avoid nephrotoxins, renally dose all medications - continue to avoid benzodiazepines, reduce the possibility of delirium - Maintenance of sleep-wake cycle, avoid delirium -Continue with enteric nutritional support - VTE prophylaxis- anticoagulation with therapeutic low intensity heparin -Stress ulcer prophylaxis- Famotidine - mobility, off loading and frequent turning per facility protocol to prevent pressure ulcers - Monitor hemodynamics closely - continue other care per attending / other consultants CONDITION: CRITICAL PROGNOSIS: GRAVE CODE STATUS: FULL The high probability of a clinically significant, sudden or life threatening deterioration of the [respiratory, cardiovascular, neurology,renal ] system(s) required my full and direct attention, intervention and personal management. The aggregate critical care time was [35 ] minutes. This time is in addition to time spent performing reported procedures but includes the following: [x] Data Review and interpretation [x] Patient assessment and monitoring of vital signs [x] Documentation [x] Medication orders and management Subjective Date of service: 03/28/22 Principal diagnosis: AHRF; Multifocal Pneumonia; Septic shock; NSTEMI; AMS; Seizures Interval history: follow up fro: Acute hypoxemic resp failure on MVS; Acute encephalopathy; Septic shock; Bilateral pneumonia-aspiration/CAP:Septic shock: TANIYA; C.diff positive Seen and examined. Vitals, labs, medications, chart reviewed. Discussed with nursing and respiratory care staff. Vent: ACVC-20/400/+14/ 100 Remains on Levophed , off Vasopressin;low dose Fentanyl Empiric heparin-low intensity Renal function continues to decline Richmond catheter; RIJ CVL Worsening leukocytosis Objective Vital Signs - 12hr 03/28/22 03/28/22 03/28/22 06:30 06:45 07:00 Temperature Pulse Rate 70 69 69 Respiratory 30 H 30 H 22 Rate Blood Pressure 94/65 104/64 92/62 O2 Sat by Pulse 99 99 99 Oximetry 03/28/22 03/28/22 03/28/22 07:15 07:30 07:45 Temperature Pulse Rate 68 68 67 Respiratory 27 H 15 23 Rate Blood Pressure 101/67 97/66 106/65 O2 Sat by Pulse 99 99 99 Oximetry 03/28/22 03/28/22 03/28/22 08:00 08:15 08:16 Temperature 98.9 F Pulse Rate 68 67 Respiratory 26 H 29 H Rate Blood Pressure 99/63 103/68 O2 Sat by Pulse 99 96 100 Oximetry 03/28/22 03/28/22 03/28/22 08:25 08:30 08:45 Temperature Pulse Rate 66 66 66 Respiratory 30 H 27 H Rate Blood Pressure 103/68 108/66 105/63 O2 Sat by Pulse 96 99 99 Oximetry 03/28/22 03/28/22 03/28/22 09:00 09:15 09:30 Temperature Pulse Rate 66 65 64 Respiratory 30 H 30 H 18 Rate Blood Pressure 98/62 96/67 98/62 O2 Sat by Pulse 98 99 67 L Oximetry 03/28/22 03/28/22 03/28/22 09:45 10:00 10:15 Temperature Pulse Rate 63 65 66 Respiratory 20 29 H 30 H Rate Blood Pressure 103/66 99/66 97/66 O2 Sat by Pulse 97 92 Oximetry 03/28/22 03/28/22 03/28/22 10:30 10:45 11:00 Temperature Pulse Rate 66 66 65 Respiratory 30 H 21 18 Rate Blood Pressure 99/66 102/68 110/65 O2 Sat by Pulse 91 94 92 Oximetry 03/28/22 03/28/22 03/28/22 11:15 11:30 11:45 Temperature Pulse Rate 65 66 66 Respiratory 18 19 14 Rate Blood Pressure 102/63 98/69 99/72 O2 Sat by Pulse 91 93 89 Oximetry 03/28/22 03/28/22 03/28/22 12:00 12:16 12:25 Temperature Pulse Rate 89 65 65 Respiratory 15 20 Rate Blood Pressure 101/70 100/67 101/70 O2 Sat by Pulse 91 88 91 Oximetry 03/28/22 03/28/22 03/28/22 12:30 12:45 13:00 Temperature Pulse Rate 65 65 63 Respiratory 15 15 16 Rate Blood Pressure 103/65 104/67 99/61 O2 Sat by Pulse 90 91 87 Oximetry 03/28/22 03/28/22 03/28/22 13:15 13:30 13:45 Temperature Pulse Rate 66 66 67 Respiratory 15 15 15 Rate Blood Pressure 100/60 101/58 97/60 O2 Sat by Pulse 87 93 95 Oximetry 03/28/22 03/28/22 03/28/22 14:00 14:15 14:30 Temperature Pulse Rate 66 67 66 Respiratory 15 17 17 Rate Blood Pressure 101/59 103/56 95/56 O2 Sat by Pulse 98 94 89 Oximetry 03/28/22 03/28/22 03/28/22 14:45 15:00 15:16 Temperature Pulse Rate 67 67 67 Respiratory 16 19 16 Rate Blood Pressure 88/57 93/57 102/56 O2 Sat by Pulse 98 98 98 Oximetry 03/28/22 03/28/22 03/28/22 15:30 15:45 16:00 Temperature 98 F Pulse Rate 67 67 68 Respiratory 14 16 15 Rate Blood Pressure 104/53 102/57 94/52 O2 Sat by Pulse 97 96 95 Oximetry 03/28/22 03/28/22 03/28/22 16:15 16:30 16:45 Temperature Pulse Rate 68 69 71 Respiratory 14 17 28 H Rate Blood Pressure 95/54 84/54 76/53 O2 Sat by Pulse 94 98 99 Oximetry 03/28/22 03/28/22 03/28/22 17:00 17:15 17:30 Temperature Pulse Rate 71 74 73 Respiratory 18 22 16 Rate Blood Pressure 90/54 100/54 100/55 O2 Sat by Pulse 99 98 98 Oximetry Constitutional: comatose, other (middle aged female with anasarca and mild dyssynchrony on MVS, intubated) Eyes: non-icteric ENT: oropharynx moist, other (ETT 24 cm BLANCA) Neck: supple, no lymphadenopathy, no JVD Effort: mildly labored Ascultation: Bilateral: rales Percussion: Bilateral: not dull Cardiovascular: regular rate and rhythm, other (S1,S2) Gastrointestinal: normoactive bowel sounds, soft, non-tender, other (distended) Integumentary: other (edema with peeling skin-anarsaca) Extremities: no cyanosis, pulses normal, no ischemia or petechiae, anasarca Neurologic: pupils equal and round, unable to assess Psychiatric: other (unable to assess re: AMS) CBC and BMP: 03/28/22 04:17 03/28/22 04:17 ABG, PT/INR, D-dimer: ABG ABG pH 7.241 pH Units (7.350-7.450) L 03/28/22 06:20 ABG pCO2 38.6 mm Hg 03/28/22 06:20 ABG pO2 106.1 mm Hg (80.0-90.0) H 03/28/22 06:20 ABG O2 Saturation 97.4 % (95.0-99.0) 03/28/22 06:20 PT/INR, D-dimer PT 17.2 Sec. (12.2-14.9) H 03/22/22 09:30 INR 1.25 (0.87-1.13) H 03/22/22 09:30 D-Dimer 787.78 ng/mlDDU (0-234) H 03/10/22 05:45 Abnormal lab findings: Abnormal Labs 03/10/22 03/10/22 03/10/22 01:19 01:25 01:25 WBC RBC Hgb Hct MCH RDW 15.4 H Plt Count Lymph % (Auto) 12.4 L Lymph # (Auto) 1.1 L Seg Neutrophils % 85.9 H Seg Neuts % (Manual) Lymphocytes % (Manual) Nucleated RBC % Seg Neutrophils # Seg Neutrophils # Man Lymphocytes # (Manual) Monocytes # (Manual) Eosinophils # (Manual) Basophils # (Manual) PT INR D-Dimer Heparin Anti-Xa Level ABG pH ABG pO2 59.3 L ABG HCO3 16.7 L ABG O2 Saturation 92.3 L ABG Base Excess -7.8 L ABG Hemoglobin 11.4 L Oxyhemoglobin 90.8 L Sodium 119 L* Potassium 3.1 L Chloride 88.1 L Carbon Dioxide 16 L BUN Creatinine 0.3 L Glucose 146 H POC Glucose Lactic Acid Uric Acid Calcium 8.2 L Phosphorus Magnesium 1.30 L Ferritin AST ALT 5 L Alkaline Phosphatase Lactate Dehydrogenase Total Creatine Kinase CK-MB (CK-2) Troponin T NT-Pro-B Natriuret Pep Total Protein 5.4 L Albumin 3.6 L Prealbumin Cholesterol LDL Cholesterol Direct HDL Cholesterol Vitamin B12 Folate Urine WBC (Auto) Urine Creatinine Crossmatch 03/10/22 03/10/22 03/10/22 01:25 01:25 01:25 WBC RBC Hgb Hct MCH RDW Plt Count Lymph % (Auto) Lymph # (Auto) Seg Neutrophils % Seg Neuts % (Manual) Lymphocytes % (Manual) Nucleated RBC % Seg Neutrophils # Seg Neutrophils # Man Lymphocytes # (Manual) Monocytes # (Manual) Eosinophils # (Manual) Basophils # (Manual) PT INR D-Dimer Heparin Anti-Xa Level ABG pH ABG pO2 ABG HCO3 ABG O2 Saturation ABG Base Excess ABG Hemoglobin Oxyhemoglobin Sodium Potassium Chloride Carbon Dioxide BUN Creatinine Glucose POC Glucose Lactic Acid 3.60 H* Uric Acid Calcium Phosphorus Magnesium Ferritin AST ALT Alkaline Phosphatase Lactate Dehydrogenase Total Creatine Kinase CK-MB (CK-2) 4.6 H Troponin T 0.164 H* NT-Pro-B Natriuret Pep 59457 H Total Protein Albumin Prealbumin Cholesterol 259 H LDL Cholesterol Direct 187 H HDL Cholesterol 63 H Vitamin B12 Folate Urine WBC (Auto) Urine Creatinine Crossmatch 03/10/22 03/10/22 03/10/22 02:43 05:45 05:45 WBC RBC Hgb Hct MCH RDW Plt Count Lymph % (Auto) Lymph # (Auto) Seg Neutrophils % Seg Neuts % (Manual) Lymphocytes % (Manual) Nucleated RBC % Seg Neutrophils # Seg Neutrophils # Man Lymphocytes # (Manual) Monocytes # (Manual) Eosinophils # (Manual) Basophils # (Manual) PT INR D-Dimer 787.78 H Heparin Anti-Xa Level ABG pH ABG pO2 ABG HCO3 ABG O2 Saturation ABG Base Excess ABG Hemoglobin Oxyhemoglobin Sodium Potassium Chloride Carbon Dioxide BUN Creatinine Glucose POC Glucose Lactic Acid 3.70 H* 3.10 H* Uric Acid Calcium Phosphorus Magnesium Ferritin AST ALT Alkaline Phosphatase Lactate Dehydrogenase Total Creatine Kinase CK-MB (CK-2) Troponin T NT-Pro-B Natriuret Pep Total Protein Albumin Prealbumin Cholesterol LDL Cholesterol Direct HDL Cholesterol Vitamin B12 Folate Urine WBC (Auto) Urine Creatinine Crossmatch 03/10/22 03/10/22 03/10/22 05:45 05:45 12:24 WBC RBC Hgb Hct MCH RDW Plt Count Lymph % (Auto) Lymph # (Auto) Seg Neutrophils % Seg Neuts % (Manual) Lymphocytes % (Manual) Nucleated RBC % Seg Neutrophils # Seg Neutrophils # Man Lymphocytes # (Manual) Monocytes # (Manual) Eosinophils # (Manual) Basophils # (Manual) PT INR D-Dimer Heparin Anti-Xa Level ABG pH ABG pO2 ABG HCO3 ABG O2 Saturation ABG Base Excess ABG Hemoglobin Oxyhemoglobin Sodium 124 L Potassium 3.3 L Chloride Carbon Dioxide 11 L BUN Creatinine 0.2 L Glucose POC Glucose Lactic Acid Uric Acid Calcium 6.9 L D Phosphorus Magnesium Ferritin 219.2 H AST ALT Alkaline Phosphatase Lactate Dehydrogenase 210 H Total Creatine Kinase CK-MB (CK-2) Troponin T NT-Pro-B Natriuret Pep Total Protein Albumin Prealbumin Cholesterol LDL Cholesterol Direct HDL Cholesterol Vitamin B12 Folate Urine WBC (Auto) Urine Creatinine Crossmatch 03/10/22 03/10/22 03/10/22 12:24 12:24 12:24 WBC RBC Hgb Hct MCH RDW Plt Count Lymph % (Auto) Lymph # (Auto) Seg Neutrophils % Seg Neuts % (Manual) Lymphocytes % (Manual) Nucleated RBC % Seg Neutrophils # Seg Neutrophils # Man Lymphocytes # (Manual) Monocytes # (Manual) Eosinophils # (Manual) Basophils # (Manual) PT INR D-Dimer Heparin Anti-Xa Level ABG pH ABG pO2 ABG HCO3 ABG O2 Saturation ABG Base Excess ABG Hemoglobin Oxyhemoglobin Sodium 128 L Potassium Chloride Carbon Dioxide BUN Creatinine Glucose POC Glucose Lactic Acid 2.70 H* Uric Acid Calcium Phosphorus Magnesium Ferritin AST ALT Alkaline Phosphatase Lactate Dehydrogenase Total Creatine Kinase 901 H CK-MB (CK-2) 15.3 H Troponin T 0.032 H D NT-Pro-B Natriuret Pep Total Protein Albumin Prealbumin Cholesterol LDL Cholesterol Direct HDL Cholesterol Vitamin B12 Folate Urine WBC (Auto) Urine Creatinine Crossmatch 03/10/22 03/10/22 03/10/22 12:45 13:15 18:00 WBC RBC Hgb Hct MCH RDW Plt Count Lymph % (Auto) Lymph # (Auto) Seg Neutrophils % Seg Neuts % (Manual) Lymphocytes % (Manual) Nucleated RBC % Seg Neutrophils # Seg Neutrophils # Man Lymphocytes # (Manual) Monocytes # (Manual) Eosinophils # (Manual) Basophils # (Manual) PT INR D-Dimer Heparin Anti-Xa Level ABG pH 7.315 L ABG pO2 70.1 L ABG HCO3 15.6 L ABG O2 Saturation 93.8 L ABG Base Excess -9.5 L ABG Hemoglobin 11.0 L Oxyhemoglobin 92.4 L Sodium 129 L Potassium Chloride Carbon Dioxide 17 L BUN Creatinine 0.2 L Glucose POC Glucose Lactic Acid Uric Acid 1.6 L Calcium 7.0 L Phosphorus Magnesium Ferritin AST ALT Alkaline Phosphatase Lactate Dehydrogenase Total Creatine Kinase CK-MB (CK-2) Troponin T NT-Pro-B Natriuret Pep Total Protein Albumin Prealbumin Cholesterol LDL Cholesterol Direct HDL Cholesterol Vitamin B12 Folate Urine WBC (Auto) Urine Creatinine Crossmatch 03/10/22 03/10/22 03/11/22 18:20 21:05 05:00 WBC 13.7 H RBC 3.44 L Hgb 9.6 L Hct 29.0 L D MCH RDW Plt Count Lymph % (Auto) 8.9 L Lymph # (Auto) Seg Neutrophils % 86.6 H Seg Neuts % (Manual) Lymphocytes % (Manual) Nucleated RBC % Seg Neutrophils # 11.8 H Seg Neutrophils # Man Lymphocytes # (Manual) Monocytes # (Manual) Eosinophils # (Manual) Basophils # (Manual) PT INR D-Dimer Heparin Anti-Xa Level ABG pH ABG pO2 116.3 H ABG HCO3 17.2 L ABG O2 Saturation ABG Base Excess -6.4 L ABG Hemoglobin 11.0 L Oxyhemoglobin Sodium Potassium Chloride Carbon Dioxide BUN Creatinine Glucose POC Glucose Lactic Acid Uric Acid Calcium Phosphorus Magnesium Ferritin AST ALT Alkaline Phosphatase Lactate Dehydrogenase Total Creatine Kinase CK-MB (CK-2) Troponin T NT-Pro-B Natriuret Pep Total Protein Albumin Prealbumin Cholesterol LDL Cholesterol Direct HDL Cholesterol Vitamin B12 Folate Urine WBC (Auto) 105.0 H Urine Creatinine Crossmatch 03/11/22 03/11/22 03/12/22 05:00 Unknown 04:10 WBC RBC Hgb Hct MCH RDW Plt Count Lymph % (Auto) Lymph # (Auto) Seg Neutrophils % Seg Neuts % (Manual) Lymphocytes % (Manual) Nucleated RBC % Seg Neutrophils # Seg Neutrophils # Man Lymphocytes # (Manual) Monocytes # (Manual) Eosinophils # (Manual) Basophils # (Manual) PT INR D-Dimer Heparin Anti-Xa Level ABG pH 7.472 H 7.482 H ABG pO2 65.5 L ABG HCO3 19.8 L ABG O2 Saturation ABG Base Excess -2.9 L ABG Hemoglobin 10.1 L 8.4 L Oxyhemoglobin Sodium 132 L Potassium Chloride Carbon Dioxide 20 L BUN 6 L Creatinine 0.2 L Glucose POC Glucose Lactic Acid Uric Acid Calcium 7.5 L Phosphorus Magnesium Ferritin AST ALT Alkaline Phosphatase Lactate Dehydrogenase Total Creatine Kinase CK-MB (CK-2) Troponin T NT-Pro-B Natriuret Pep Total Protein Albumin Prealbumin Cholesterol LDL Cholesterol Direct HDL Cholesterol Vitamin B12 Folate Urine WBC (Auto) Urine Creatinine Crossmatch 03/12/22 03/12/22 03/12/22 04:20 04:20 12:25 WBC 13.6 H RBC 3.11 L Hgb 8.7 L Hct 26.1 L MCH RDW Plt Count Lymph % (Auto) Lymph # (Auto) Seg Neutrophils % Seg Neuts % (Manual) Lymphocytes % (Manual) Nucleated RBC % Seg Neutrophils # Seg Neutrophils # Man Lymphocytes # (Manual) Monocytes # (Manual) Eosinophils # (Manual) Basophils # (Manual) PT INR D-Dimer Heparin Anti-Xa Level ABG pH ABG pO2 ABG HCO3 ABG O2 Saturation ABG Base Excess ABG Hemoglobin Oxyhemoglobin Sodium 128 L Potassium 3.2 L Chloride 93.9 L Carbon Dioxide BUN 4 L Creatinine 0.2 L Glucose 103 H POC Glucose 116 H Lactic Acid Uric Acid Calcium 7.4 L Phosphorus 1.10 L Magnesium 2.40 H Ferritin AST ALT Alkaline Phosphatase Lactate Dehydrogenase Total Creatine Kinase CK-MB (CK-2) Troponin T NT-Pro-B Natriuret Pep Total Protein Albumin Prealbumin Cholesterol LDL Cholesterol Direct HDL Cholesterol Vitamin B12 Folate Urine WBC (Auto) Urine Creatinine Crossmatch 03/12/22 03/12/22 03/12/22 18:40 18:40 18:40 WBC RBC Hgb Hct MCH RDW Plt Count Lymph % (Auto) Lymph # (Auto) Seg Neutrophils % Seg Neuts % (Manual) Lymphocytes % (Manual) Nucleated RBC % Seg Neutrophils # Seg Neutrophils # Man Lymphocytes # (Manual) Monocytes # (Manual) Eosinophils # (Manual) Basophils # (Manual) PT INR D-Dimer Heparin Anti-Xa Level ABG pH ABG pO2 ABG HCO3 ABG O2 Saturation ABG Base Excess ABG Hemoglobin Oxyhemoglobin Sodium Potassium Chloride Carbon Dioxide BUN Creatinine Glucose POC Glucose Lactic Acid Uric Acid Calcium Phosphorus Magnesium Ferritin AST ALT Alkaline Phosphatase Lactate Dehydrogenase Total Creatine Kinase CK-MB (CK-2) Troponin T NT-Pro-B Natriuret Pep Total Protein Albumin Prealbumin 0.044 L Cholesterol LDL Cholesterol Direct HDL Cholesterol Vitamin B12 1021 H Folate 2.15 L Urine WBC (Auto) Urine Creatinine Crossmatch 03/13/22 03/13/22 03/13/22 04:10 08:00 09:50 WBC 15.0 H RBC 2.82 L Hgb 8.0 L Hct 23.9 L MCH RDW 15.5 H Plt Count Lymph % (Auto) Lymph # (Auto) Seg Neutrophils % Seg Neuts % (Manual) Lymphocytes % (Manual) Nucleated RBC % Seg Neutrophils # Seg Neutrophils # Man Lymphocytes # (Manual) Monocytes # (Manual) Eosinophils # (Manual) Basophils # (Manual) PT INR D-Dimer Heparin Anti-Xa Level ABG pH ABG pO2 98.6 H ABG HCO3 ABG O2 Saturation ABG Base Excess ABG Hemoglobin 8.3 L Oxyhemoglobin Sodium 130 L Potassium Chloride 96.1 L Carbon Dioxide BUN Creatinine 0.4 L D Glucose 148 H POC Glucose Lactic Acid Uric Acid Calcium 7.3 L Phosphorus Magnesium Ferritin AST ALT Alkaline Phosphatase Lactate Dehydrogenase Total Creatine Kinase CK-MB (CK-2) Troponin T NT-Pro-B Natriuret Pep Total Protein Albumin Prealbumin Cholesterol LDL Cholesterol Direct HDL Cholesterol Vitamin B12 Folate Urine WBC (Auto) Urine Creatinine Crossmatch 03/13/22 03/13/22 03/14/22 20:15 22:59 04:54 WBC 17.0 H RBC 2.79 L Hgb 7.8 L Hct 23.6 L MCH RDW 15.6 H Plt Count Lymph % (Auto) Lymph # (Auto) Seg Neutrophils % Seg Neuts % (Manual) Lymphocytes % (Manual) Nucleated RBC % Seg Neutrophils # Seg Neutrophils # Man Lymphocytes # (Manual) Monocytes # (Manual) Eosinophils # (Manual) Basophils # (Manual) PT INR D-Dimer Heparin Anti-Xa Level ABG pH ABG pO2 ABG HCO3 ABG O2 Saturation ABG Base Excess -2.9 L ABG Hemoglobin 8.0 L Oxyhemoglobin Sodium Potassium Chloride Carbon Dioxide BUN Creatinine Glucose POC Glucose 127 H Lactic Acid Uric Acid Calcium Phosphorus Magnesium Ferritin AST ALT Alkaline Phosphatase Lactate Dehydrogenase Total Creatine Kinase CK-MB (CK-2) Troponin T NT-Pro-B Natriuret Pep Total Protein Albumin Prealbumin Cholesterol LDL Cholesterol Direct HDL Cholesterol Vitamin B12 Folate Urine WBC (Auto) Urine Creatinine Crossmatch 03/14/22 03/14/22 03/14/22 04:54 16:15 22:59 WBC RBC Hgb Hct MCH RDW Plt Count Lymph % (Auto) Lymph # (Auto) Seg Neutrophils % Seg Neuts % (Manual) Lymphocytes % (Manual) Nucleated RBC % Seg Neutrophils # Seg Neutrophils # Man Lymphocytes # (Manual) Monocytes # (Manual) Eosinophils # (Manual) Basophils # (Manual) PT INR D-Dimer Heparin Anti-Xa Level ABG pH ABG pO2 ABG HCO3 ABG O2 Saturation ABG Base Excess ABG Hemoglobin Oxyhemoglobin Sodium 129 L 128 L Potassium 3.5 L Chloride 97.1 L 97.0 L Carbon Dioxide BUN 24 H 31 H Creatinine 0.5 L Glucose 125 H 114 H POC Glucose 134 H Lactic Acid Uric Acid Calcium 7.0 L 7.0 L Phosphorus Magnesium Ferritin AST ALT Alkaline Phosphatase Lactate Dehydrogenase Total Creatine Kinase CK-MB (CK-2) Troponin T NT-Pro-B Natriuret Pep Total Protein Albumin Prealbumin Cholesterol LDL Cholesterol Direct HDL Cholesterol Vitamin B12 Folate Urine WBC (Auto) Urine Creatinine Crossmatch 03/15/22 03/15/22 03/15/22 04:10 04:10 05:02 WBC 12.9 H RBC 2.55 L Hgb 7.1 L Hct 21.5 L MCH RDW 15.8 H Plt Count Lymph % (Auto) Lymph # (Auto) Seg Neutrophils % Seg Neuts % (Manual) 88.0 H Lymphocytes % (Manual) 5.0 L Nucleated RBC % Seg Neutrophils # Seg Neutrophils # Man 11.4 H Lymphocytes # (Manual) 0.6 L Monocytes # (Manual) Eosinophils # (Manual) 0.5 H Basophils # (Manual) PT INR D-Dimer Heparin Anti-Xa Level ABG pH ABG pO2 ABG HCO3 ABG O2 Saturation ABG Base Excess ABG Hemoglobin Oxyhemoglobin Sodium 127 L Potassium Chloride 96.3 L Carbon Dioxide 21 L BUN 33 H Creatinine Glucose 126 H POC Glucose 116 H Lactic Acid Uric Acid Calcium 7.4 L Phosphorus 1.20 L Magnesium Ferritin AST ALT Alkaline Phosphatase Lactate Dehydrogenase Total Creatine Kinase CK-MB (CK-2) Troponin T NT-Pro-B Natriuret Pep Total Protein 5.3 L Albumin 2.1 L Prealbumin Cholesterol LDL Cholesterol Direct HDL Cholesterol Vitamin B12 Folate Urine WBC (Auto) Urine Creatinine Crossmatch 03/15/22 03/15/22 03/15/22 05:55 09:42 11:34 WBC RBC Hgb Hct MCH RDW Plt Count Lymph % (Auto) Lymph # (Auto) Seg Neutrophils % Seg Neuts % (Manual) Lymphocytes % (Manual) Nucleated RBC % Seg Neutrophils # Seg Neutrophils # Man Lymphocytes # (Manual) Monocytes # (Manual) Eosinophils # (Manual) Basophils # (Manual) PT INR D-Dimer Heparin Anti-Xa Level ABG pH ABG pO2 119.0 H ABG HCO3 ABG O2 Saturation ABG Base Excess -3.1 L ABG Hemoglobin 8.2 L Oxyhemoglobin Sodium Potassium Chloride Carbon Dioxide BUN Creatinine Glucose POC Glucose 125 H Lactic Acid Uric Acid Calcium Phosphorus Magnesium Ferritin AST ALT Alkaline Phosphatase Lactate Dehydrogenase Total Creatine Kinase CK-MB (CK-2) Troponin T NT-Pro-B Natriuret Pep Total Protein Albumin Prealbumin Cholesterol LDL Cholesterol Direct HDL Cholesterol Vitamin B12 Folate Urine WBC (Auto) Urine Creatinine Crossmatch See Detail 03/15/22 03/16/22 03/16/22 20:55 04:50 04:50 WBC 16.9 H RBC 2.53 L Hgb 7.1 L Hct 21.5 L MCH RDW 16.0 H Plt Count Lymph % (Auto) Lymph # (Auto) Seg Neutrophils % Seg Neuts % (Manual) Lymphocytes % (Manual) Nucleated RBC % Seg Neutrophils # Seg Neutrophils # Man Lymphocytes # (Manual) Monocytes # (Manual) Eosinophils # (Manual) Basophils # (Manual) PT INR D-Dimer Heparin Anti-Xa Level ABG pH 7.320 L ABG pO2 122.8 H ABG HCO3 ABG O2 Saturation ABG Base Excess -4.1 L ABG Hemoglobin 7.0 L Oxyhemoglobin Sodium 132 L Potassium Chloride Carbon Dioxide 20 L BUN 44 H Creatinine Glucose 123 H POC Glucose Lactic Acid Uric Acid Calcium 7.6 L Phosphorus Magnesium Ferritin AST ALT Alkaline Phosphatase Lactate Dehydrogenase Total Creatine Kinase CK-MB (CK-2) Troponin T NT-Pro-B Natriuret Pep Total Protein Albumin Prealbumin Cholesterol LDL Cholesterol Direct HDL Cholesterol Vitamin B12 Folate Urine WBC (Auto) Urine Creatinine Crossmatch 03/16/22 03/16/22 03/16/22 05:42 11:32 23:05 WBC RBC Hgb Hct MCH RDW Plt Count Lymph % (Auto) Lymph # (Auto) Seg Neutrophils % Seg Neuts % (Manual) Lymphocytes % (Manual) Nucleated RBC % Seg Neutrophils # Seg Neutrophils # Man Lymphocytes # (Manual) Monocytes # (Manual) Eosinophils # (Manual) Basophils # (Manual) PT INR D-Dimer Heparin Anti-Xa Level ABG pH ABG pO2 ABG HCO3 ABG O2 Saturation ABG Base Excess ABG Hemoglobin Oxyhemoglobin Sodium Potassium Chloride Carbon Dioxide BUN Creatinine Glucose POC Glucose 113 H 118 H 114 H Lactic Acid Uric Acid Calcium Phosphorus Magnesium Ferritin AST ALT Alkaline Phosphatase Lactate Dehydrogenase Total Creatine Kinase CK-MB (CK-2) Troponin T NT-Pro-B Natriuret Pep Total Protein Albumin Prealbumin Cholesterol LDL Cholesterol Direct HDL Cholesterol Vitamin B12 Folate Urine WBC (Auto) Urine Creatinine Crossmatch 03/17/22 03/17/22 03/17/22 04:00 04:00 05:00 WBC 19.1 H RBC 2.44 L Hgb 6.6 L Hct 20.6 L MCH 27 L RDW 16.4 H Plt Count Lymph % (Auto) Lymph # (Auto) Seg Neutrophils % Seg Neuts % (Manual) 78.0 H Lymphocytes % (Manual) 2.0 L Nucleated RBC % Seg Neutrophils # Seg Neutrophils # Man 14.9 H Lymphocytes # (Manual) 0.4 L Monocytes # (Manual) 1.3 H Eosinophils # (Manual) 0.6 H Basophils # (Manual) PT INR D-Dimer Heparin Anti-Xa Level ABG pH 7.334 L ABG pO2 132.4 H ABG HCO3 ABG O2 Saturation ABG Base Excess -2.7 L ABG Hemoglobin 9.1 L Oxyhemoglobin Sodium 134 L Potassium Chloride Carbon Dioxide BUN 55 H Creatinine Glucose 125 H POC Glucose Lactic Acid Uric Acid Calcium 8.1 L Phosphorus Magnesium Ferritin AST ALT Alkaline Phosphatase Lactate Dehydrogenase Total Creatine Kinase CK-MB (CK-2) Troponin T NT-Pro-B Natriuret Pep Total Protein Albumin Prealbumin Cholesterol LDL Cholesterol Direct HDL Cholesterol Vitamin B12 Folate Urine WBC (Auto) Urine Creatinine Crossmatch 03/17/22 03/17/22 03/17/22 05:40 15:30 17:48 WBC RBC Hgb 8.2 L Hct 24.9 L MCH RDW Plt Count Lymph % (Auto) Lymph # (Auto) Seg Neutrophils % Seg Neuts % (Manual) Lymphocytes % (Manual) Nucleated RBC % Seg Neutrophils # Seg Neutrophils # Man Lymphocytes # (Manual) Monocytes # (Manual) Eosinophils # (Manual) Basophils # (Manual) PT INR D-Dimer Heparin Anti-Xa Level ABG pH ABG pO2 ABG HCO3 ABG O2 Saturation ABG Base Excess ABG Hemoglobin Oxyhemoglobin Sodium Potassium Chloride Carbon Dioxide BUN Creatinine Glucose POC Glucose 115 H 117 H Lactic Acid Uric Acid Calcium Phosphorus Magnesium Ferritin AST ALT Alkaline Phosphatase Lactate Dehydrogenase Total Creatine Kinase CK-MB (CK-2) Troponin T NT-Pro-B Natriuret Pep Total Protein Albumin Prealbumin Cholesterol LDL Cholesterol Direct HDL Cholesterol Vitamin B12 Folate Urine WBC (Auto) Urine Creatinine Crossmatch 03/17/22 03/18/22 03/18/22 23:54 05:04 05:20 WBC RBC Hgb Hct MCH RDW Plt Count Lymph % (Auto) Lymph # (Auto) Seg Neutrophils % Seg Neuts % (Manual) Lymphocytes % (Manual) Nucleated RBC % Seg Neutrophils # Seg Neutrophils # Man Lymphocytes # (Manual) Monocytes # (Manual) Eosinophils # (Manual) Basophils # (Manual) PT INR D-Dimer Heparin Anti-Xa Level ABG pH 7.302 L ABG pO2 71.0 L ABG HCO3 ABG O2 Saturation 94.9 L ABG Base Excess -4.3 L ABG Hemoglobin 9.6 L Oxyhemoglobin 92.9 L Sodium 135 L Potassium Chloride Carbon Dioxide BUN 66 H Creatinine Glucose 122 H POC Glucose 114 H Lactic Acid Uric Acid Calcium 8.2 L Phosphorus Magnesium Ferritin AST ALT Alkaline Phosphatase Lactate Dehydrogenase Total Creatine Kinase CK-MB (CK-2) Troponin T NT-Pro-B Natriuret Pep Total Protein 5.4 L Albumin 2.0 L Prealbumin Cholesterol LDL Cholesterol Direct HDL Cholesterol Vitamin B12 Folate Urine WBC (Auto) Urine Creatinine Crossmatch 03/18/22 03/18/22 03/18/22 05:20 06:44 12:04 WBC 23.9 H RBC 2.88 L Hgb 8.1 L Hct 25.1 L MCH RDW 16.0 H Plt Count Lymph % (Auto) Lymph # (Auto) Seg Neutrophils % Seg Neuts % (Manual) 89.0 H Lymphocytes % (Manual) 7.5 L Nucleated RBC % Seg Neutrophils # Seg Neutrophils # Man 21.3 H Lymphocytes # (Manual) Monocytes # (Manual) Eosinophils # (Manual) Basophils # (Manual) PT INR D-Dimer Heparin Anti-Xa Level ABG pH ABG pO2 ABG HCO3 ABG O2 Saturation ABG Base Excess ABG Hemoglobin Oxyhemoglobin Sodium Potassium Chloride Carbon Dioxide BUN Creatinine Glucose POC Glucose 107 H 119 H Lactic Acid Uric Acid Calcium Phosphorus Magnesium Ferritin AST ALT Alkaline Phosphatase Lactate Dehydrogenase Total Creatine Kinase CK-MB (CK-2) Troponin T NT-Pro-B Natriuret Pep Total Protein Albumin Prealbumin Cholesterol LDL Cholesterol Direct HDL Cholesterol Vitamin B12 Folate Urine WBC (Auto) Urine Creatinine Crossmatch 03/19/22 03/19/22 03/19/22 05:15 08:59 08:59 WBC 30.4 H RBC 2.78 L Hgb 7.7 L Hct 24.2 L MCH RDW 16.4 H Plt Count Lymph % (Auto) Lymph # (Auto) Seg Neutrophils % Seg Neuts % (Manual) Lymphocytes % (Manual) Nucleated RBC % Seg Neutrophils # Seg Neutrophils # Man Lymphocytes # (Manual) Monocytes # (Manual) Eosinophils # (Manual) Basophils # (Manual) PT INR D-Dimer Heparin Anti-Xa Level ABG pH 7.341 L ABG pO2 78.1 L ABG HCO3 ABG O2 Saturation ABG Base Excess -4.5 L ABG Hemoglobin 9.5 L Oxyhemoglobin Sodium 132 L Potassium 5.5 H Chloride Carbon Dioxide 19 L BUN 84 H Creatinine Glucose 124 H POC Glucose Lactic Acid Uric Acid Calcium Phosphorus Magnesium Ferritin AST ALT Alkaline Phosphatase Lactate Dehydrogenase Total Creatine Kinase CK-MB (CK-2) Troponin T NT-Pro-B Natriuret Pep Total Protein Albumin Prealbumin Cholesterol LDL Cholesterol Direct HDL Cholesterol Vitamin B12 Folate Urine WBC (Auto) Urine Creatinine Crossmatch 03/19/22 03/19/22 03/19/22 14:40 14:40 18:37 WBC RBC Hgb Hct MCH RDW Plt Count Lymph % (Auto) Lymph # (Auto) Seg Neutrophils % Seg Neuts % (Manual) Lymphocytes % (Manual) Nucleated RBC % Seg Neutrophils # Seg Neutrophils # Man Lymphocytes # (Manual) Monocytes # (Manual) Eosinophils # (Manual) Basophils # (Manual) PT INR D-Dimer Heparin Anti-Xa Level ABG pH 7.337 L ABG pO2 41.2 L ABG HCO3 ABG O2 Saturation 74.8 L ABG Base Excess -4.5 L ABG Hemoglobin 7.9 L Oxyhemoglobin 72.9 L Sodium Potassium Chloride Carbon Dioxide BUN Creatinine Glucose POC Glucose 120 H Lactic Acid Uric Acid Calcium Phosphorus Magnesium Ferritin AST ALT Alkaline Phosphatase Lactate Dehydrogenase Total Creatine Kinase CK-MB (CK-2) Troponin T NT-Pro-B Natriuret Pep Total Protein Albumin Prealbumin Cholesterol LDL Cholesterol Direct HDL Cholesterol Vitamin B12 Folate Urine WBC (Auto) Urine Creatinine 34.4 H Crossmatch 03/19/22 03/20/22 03/20/22 23:15 05:20 05:20 WBC 29.5 H RBC 2.76 L Hgb 7.6 L Hct 23.7 L MCH 27 L RDW 16.6 H Plt Count Lymph % (Auto) Lymph # (Auto) Seg Neutrophils % Seg Neuts % (Manual) Lymphocytes % (Manual) Nucleated RBC % Seg Neutrophils # Seg Neutrophils # Man Lymphocytes # (Manual) Monocytes # (Manual) Eosinophils # (Manual) Basophils # (Manual) PT INR D-Dimer Heparin Anti-Xa Level ABG pH ABG pO2 ABG HCO3 ABG O2 Saturation ABG Base Excess ABG Hemoglobin Oxyhemoglobin Sodium Potassium Chloride Carbon Dioxide BUN 96 H Creatinine Glucose 141 H POC Glucose 125 H Lactic Acid Uric Acid Calcium Phosphorus Magnesium Ferritin AST ALT Alkaline Phosphatase Lactate Dehydrogenase Total Creatine Kinase CK-MB (CK-2) Troponin T NT-Pro-B Natriuret Pep Total Protein Albumin Prealbumin Cholesterol LDL Cholesterol Direct HDL Cholesterol Vitamin B12 Folate Urine WBC (Auto) Urine Creatinine Crossmatch 03/20/22 03/20/22 03/21/22 06:09 10:05 04:00 WBC RBC Hgb Hct MCH RDW Plt Count Lymph % (Auto) Lymph # (Auto) Seg Neutrophils % Seg Neuts % (Manual) Lymphocytes % (Manual) Nucleated RBC % Seg Neutrophils # Seg Neutrophils # Man Lymphocytes # (Manual) Monocytes # (Manual) Eosinophils # (Manual) Basophils # (Manual) PT INR D-Dimer Heparin Anti-Xa Level ABG pH 7.278 L ABG pO2 71.0 L ABG HCO3 ABG O2 Saturation 92.6 L ABG Base Excess ABG Hemoglobin 8.2 L Oxyhemoglobin 90.5 L Sodium 135 L Potassium 5.7 H D Chloride 97.4 L Carbon Dioxide 21 L BUN 104 H Creatinine 1.3 H Glucose 118 H POC Glucose 121 H Lactic Acid Uric Acid Calcium Phosphorus Magnesium Ferritin AST ALT Alkaline Phosphatase Lactate Dehydrogenase Total Creatine Kinase CK-MB (CK-2) Troponin T NT-Pro-B Natriuret Pep Total Protein Albumin Prealbumin Cholesterol LDL Cholesterol Direct HDL Cholesterol Vitamin B12 Folate Urine WBC (Auto) Urine Creatinine Crossmatch 03/21/22 03/21/22 03/21/22 04:40 15:30 21:00 WBC 25.6 H RBC 2.61 L Hgb 7.3 L Hct 22.8 L MCH RDW 16.8 H Plt Count 462 H Lymph % (Auto) Lymph # (Auto) Seg Neutrophils % Seg Neuts % (Manual) 71.0 H Lymphocytes % (Manual) 2.0 L Nucleated RBC % 1.0 H Seg Neutrophils # Seg Neutrophils # Man 18.2 H Lymphocytes # (Manual) 0.5 L Monocytes # (Manual) 1.8 H Eosinophils # (Manual) 0.8 H Basophils # (Manual) PT INR D-Dimer Heparin Anti-Xa Level ABG pH 7.197 L* 7.284 L ABG pO2 76.6 L 68.6 L ABG HCO3 ABG O2 Saturation 92.8 L ABG Base Excess -5.7 L -3.7 L ABG Hemoglobin 10.0 L 7.6 L Oxyhemoglobin 94.3 L 90.7 L Sodium Potassium Chloride Carbon Dioxide BUN Creatinine Glucose POC Glucose Lactic Acid Uric Acid Calcium Phosphorus Magnesium Ferritin AST ALT Alkaline Phosphatase Lactate Dehydrogenase Total Creatine Kinase CK-MB (CK-2) Troponin T NT-Pro-B Natriuret Pep Total Protein Albumin Prealbumin Cholesterol LDL Cholesterol Direct HDL Cholesterol Vitamin B12 Folate Urine WBC (Auto) Urine Creatinine Crossmatch 03/22/22 03/22/22 03/22/22 04:10 04:10 09:00 WBC 32.9 H RBC 2.60 L Hgb 7.4 L Hct 22.3 L MCH RDW 16.8 H Plt Count 517 H Lymph % (Auto) Lymph # (Auto) Seg Neutrophils % Seg Neuts % (Manual) Lymphocytes % (Manual) Nucleated RBC % Seg Neutrophils # Seg Neutrophils # Man Lymphocytes # (Manual) Monocytes # (Manual) Eosinophils # (Manual) Basophils # (Manual) PT INR D-Dimer Heparin Anti-Xa Level ABG pH ABG pO2 ABG HCO3 19.9 L ABG O2 Saturation ABG Base Excess -4.9 L ABG Hemoglobin 7.5 L Oxyhemoglobin Sodium Potassium 5.4 H Chloride 97.2 L Carbon Dioxide 21 L BUN 116 H Creatinine 1.6 H Glucose 142 H POC Glucose Lactic Acid Uric Acid Calcium Phosphorus Magnesium Ferritin AST ALT Alkaline Phosphatase Lactate Dehydrogenase Total Creatine Kinase CK-MB (CK-2) Troponin T NT-Pro-B Natriuret Pep Total Protein Albumin Prealbumin Cholesterol LDL Cholesterol Direct HDL Cholesterol Vitamin B12 Folate Urine WBC (Auto) Urine Creatinine Crossmatch 03/22/22 03/22/22 03/22/22 09:30 13:02 17:49 WBC RBC Hgb Hct MCH RDW Plt Count Lymph % (Auto) Lymph # (Auto) Seg Neutrophils % Seg Neuts % (Manual) Lymphocytes % (Manual) Nucleated RBC % Seg Neutrophils # Seg Neutrophils # Man Lymphocytes # (Manual) Monocytes # (Manual) Eosinophils # (Manual) Basophils # (Manual) PT 17.2 H INR 1.25 H D-Dimer Heparin Anti-Xa Level ABG pH ABG pO2 ABG HCO3 ABG O2 Saturation ABG Base Excess ABG Hemoglobin Oxyhemoglobin Sodium Potassium Chloride Carbon Dioxide BUN Creatinine Glucose POC Glucose 120 H 118 H Lactic Acid Uric Acid Calcium Phosphorus Magnesium Ferritin AST ALT Alkaline Phosphatase Lactate Dehydrogenase Total Creatine Kinase CK-MB (CK-2) Troponin T NT-Pro-B Natriuret Pep Total Protein Albumin Prealbumin Cholesterol LDL Cholesterol Direct HDL Cholesterol Vitamin B12 Folate Urine WBC (Auto) Urine Creatinine Crossmatch 03/23/22 03/23/22 03/23/22 04:20 04:20 04:25 WBC 37.3 H RBC 2.57 L Hgb 7.2 L Hct 22.3 L MCH RDW 16.6 H Plt Count 580 H Lymph % (Auto) Lymph # (Auto) Seg Neutrophils % Seg Neuts % (Manual) Lymphocytes % (Manual) Nucleated RBC % Seg Neutrophils # Seg Neutrophils # Man Lymphocytes # (Manual) Monocytes # (Manual) Eosinophils # (Manual) Basophils # (Manual) PT INR D-Dimer Heparin Anti-Xa Level ABG pH 7.333 L ABG pO2 70.9 L ABG HCO3 ABG O2 Saturation 93.3 L ABG Base Excess -5.0 L ABG Hemoglobin 7.0 L Oxyhemoglobin 91.2 L Sodium Potassium Chloride Carbon Dioxide 19 L BUN 125 H Creatinine 1.9 H Glucose 133 H POC Glucose Lactic Acid Uric Acid Calcium 8.2 L Phosphorus Magnesium Ferritin AST ALT Alkaline Phosphatase Lactate Dehydrogenase Total Creatine Kinase CK-MB (CK-2) Troponin T NT-Pro-B Natriuret Pep Total Protein Albumin Prealbumin Cholesterol LDL Cholesterol Direct HDL Cholesterol Vitamin B12 Folate Urine WBC (Auto) Urine Creatinine Crossmatch 03/23/22 03/23/22 03/23/22 05:40 07:25 11:13 WBC RBC Hgb Hct MCH RDW Plt Count Lymph % (Auto) Lymph # (Auto) Seg Neutrophils % Seg Neuts % (Manual) Lymphocytes % (Manual) Nucleated RBC % Seg Neutrophils # Seg Neutrophils # Man Lymphocytes # (Manual) Monocytes # (Manual) Eosinophils # (Manual) Basophils # (Manual) PT INR D-Dimer Heparin Anti-Xa Level 0.29 L ABG pH ABG pO2 ABG HCO3 ABG O2 Saturation ABG Base Excess ABG Hemoglobin Oxyhemoglobin Sodium Potassium Chloride Carbon Dioxide BUN Creatinine Glucose POC Glucose 121 H 112 H Lactic Acid Uric Acid Calcium Phosphorus Magnesium Ferritin AST ALT Alkaline Phosphatase Lactate Dehydrogenase Total Creatine Kinase CK-MB (CK-2) Troponin T NT-Pro-B Natriuret Pep Total Protein Albumin Prealbumin Cholesterol LDL Cholesterol Direct HDL Cholesterol Vitamin B12 Folate Urine WBC (Auto) Urine Creatinine Crossmatch 03/23/22 03/24/22 03/24/22 23:35 04:25 04:25 WBC RBC Hgb 7.3 L Hct 24.5 L MCH RDW Plt Count Lymph % (Auto) Lymph # (Auto) Seg Neutrophils % Seg Neuts % (Manual) Lymphocytes % (Manual) Nucleated RBC % Seg Neutrophils # Seg Neutrophils # Man Lymphocytes # (Manual) Monocytes # (Manual) Eosinophils # (Manual) Basophils # (Manual) PT INR D-Dimer Heparin Anti-Xa Level ABG pH ABG pO2 ABG HCO3 ABG O2 Saturation ABG Base Excess ABG Hemoglobin Oxyhemoglobin Sodium 136 L Potassium 5.1 H Chloride Carbon Dioxide 18 L BUN 130 H Creatinine 2.1 H Glucose 122 H POC Glucose 114 H Lactic Acid Uric Acid Calcium 8.1 L Phosphorus Magnesium Ferritin AST ALT Alkaline Phosphatase Lactate Dehydrogenase Total Creatine Kinase CK-MB (CK-2) Troponin T NT-Pro-B Natriuret Pep Total Protein Albumin Prealbumin Cholesterol LDL Cholesterol Direct HDL Cholesterol Vitamin B12 Folate Urine WBC (Auto) Urine Creatinine Crossmatch 03/24/22 03/24/22 03/24/22 04:40 08:40 09:23 WBC 47.4 H* RBC 2.73 L Hgb 7.5 L Hct 24.3 L MCH 27 L RDW 17.0 H Plt Count 667 H Lymph % (Auto) Lymph # (Auto) Seg Neutrophils % Seg Neuts % (Manual) 82.0 H Lymphocytes % (Manual) 6.0 L Nucleated RBC % 4.0 H Seg Neutrophils # Seg Neutrophils # Man 38.9 H Lymphocytes # (Manual) Monocytes # (Manual) 1.4 H Eosinophils # (Manual) 0.5 H Basophils # (Manual) PT INR D-Dimer Heparin Anti-Xa Level 0.18 L ABG pH 7.240 L ABG pO2 96.8 H ABG HCO3 18.1 L ABG O2 Saturation ABG Base Excess -8.6 L ABG Hemoglobin 7.2 L Oxyhemoglobin 94.5 L Sodium Potassium Chloride Carbon Dioxide BUN Creatinine Glucose POC Glucose Lactic Acid Uric Acid Calcium Phosphorus Magnesium Ferritin AST ALT Alkaline Phosphatase Lactate Dehydrogenase Total Creatine Kinase CK-MB (CK-2) Troponin T NT-Pro-B Natriuret Pep Total Protein Albumin Prealbumin Cholesterol LDL Cholesterol Direct HDL Cholesterol Vitamin B12 Folate Urine WBC (Auto) Urine Creatinine Crossmatch 03/24/22 03/25/22 03/25/22 17:12 04:25 04:40 WBC 49.1 H* RBC 2.60 L Hgb 7.4 L Hct 23.1 L MCH RDW 17.5 H Plt Count 630 H Lymph % (Auto) Lymph # (Auto) Seg Neutrophils % Seg Neuts % (Manual) Lymphocytes % (Manual) Nucleated RBC % Seg Neutrophils # Seg Neutrophils # Man Lymphocytes # (Manual) Monocytes # (Manual) Eosinophils # (Manual) Basophils # (Manual) PT INR D-Dimer Heparin Anti-Xa Level ABG pH 7.255 L ABG pO2 65.1 L ABG HCO3 18.0 L ABG O2 Saturation 89.7 L ABG Base Excess -8.5 L ABG Hemoglobin 7.2 L Oxyhemoglobin 87.4 L Sodium Potassium Chloride Carbon Dioxide BUN Creatinine Glucose POC Glucose 126 H Lactic Acid Uric Acid Calcium Phosphorus Magnesium Ferritin AST ALT Alkaline Phosphatase Lactate Dehydrogenase Total Creatine Kinase CK-MB (CK-2) Troponin T NT-Pro-B Natriuret Pep Total Protein Albumin Prealbumin Cholesterol LDL Cholesterol Direct HDL Cholesterol Vitamin B12 Folate Urine WBC (Auto) Urine Creatinine Crossmatch 03/25/22 03/25/22 03/25/22 04:40 04:40 11:12 WBC RBC Hgb Hct MCH RDW Plt Count Lymph % (Auto) Lymph # (Auto) Seg Neutrophils % Seg Neuts % (Manual) Lymphocytes % (Manual) Nucleated RBC % Seg Neutrophils # Seg Neutrophils # Man Lymphocytes # (Manual) Monocytes # (Manual) Eosinophils # (Manual) Basophils # (Manual) PT INR D-Dimer Heparin Anti-Xa Level 0.22 L ABG pH ABG pO2 ABG HCO3 ABG O2 Saturation ABG Base Excess ABG Hemoglobin Oxyhemoglobin Sodium 136 L Potassium 5.3 H Chloride 95.7 L Carbon Dioxide 18 L BUN 135 H Creatinine 2.2 H Glucose 121 H POC Glucose 123 H Lactic Acid Uric Acid Calcium 7.8 L Phosphorus Magnesium Ferritin AST ALT Alkaline Phosphatase Lactate Dehydrogenase Total Creatine Kinase CK-MB (CK-2) Troponin T NT-Pro-B Natriuret Pep Total Protein Albumin Prealbumin Cholesterol LDL Cholesterol Direct HDL Cholesterol Vitamin B12 Folate Urine WBC (Auto) Urine Creatinine Crossmatch 03/25/22 03/25/22 03/26/22 16:32 22:35 03:30 WBC 39.8 H RBC 2.61 L Hgb 7.3 L Hct 23.6 L MCH RDW 17.4 H Plt Count 600 H Lymph % (Auto) Lymph # (Auto) Seg Neutrophils % Seg Neuts % (Manual) 81.0 H Lymphocytes % (Manual) 6.5 L Nucleated RBC % 11.0 H Seg Neutrophils # Seg Neutrophils # Man 32.2 H Lymphocytes # (Manual) Monocytes # (Manual) 2.8 H Eosinophils # (Manual) 1.4 H Basophils # (Manual) 0.2 H PT INR D-Dimer Heparin Anti-Xa Level ABG pH 7.245 L ABG pO2 176.5 H ABG HCO3 18.3 L ABG O2 Saturation ABG Base Excess -8.3 L ABG Hemoglobin 7.3 L Oxyhemoglobin Sodium Potassium Chloride Carbon Dioxide BUN Creatinine Glucose POC Glucose 119 H Lactic Acid Uric Acid Calcium Phosphorus Magnesium Ferritin AST ALT Alkaline Phosphatase Lactate Dehydrogenase Total Creatine Kinase CK-MB (CK-2) Troponin T NT-Pro-B Natriuret Pep Total Protein Albumin Prealbumin Cholesterol LDL Cholesterol Direct HDL Cholesterol Vitamin B12 Folate Urine WBC (Auto) Urine Creatinine Crossmatch 03/26/22 03/26/22 03/26/22 03:30 03:30 11:53 WBC RBC Hgb Hct MCH RDW Plt Count Lymph % (Auto) Lymph # (Auto) Seg Neutrophils % Seg Neuts % (Manual) Lymphocytes % (Manual) Nucleated RBC % Seg Neutrophils # Seg Neutrophils # Man Lymphocytes # (Manual) Monocytes # (Manual) Eosinophils # (Manual) Basophils # (Manual) PT INR D-Dimer Heparin Anti-Xa Level 0.15 L ABG pH ABG pO2 ABG HCO3 ABG O2 Saturation ABG Base Excess ABG Hemoglobin Oxyhemoglobin Sodium 134 L Potassium Chloride 93.0 L Carbon Dioxide 19 L BUN 136 H Creatinine 2.3 H Glucose 146 H POC Glucose 118 H Lactic Acid Uric Acid Calcium 7.4 L Phosphorus Magnesium Ferritin AST ALT Alkaline Phosphatase 153 H Lactate Dehydrogenase Total Creatine Kinase CK-MB (CK-2) Troponin T NT-Pro-B Natriuret Pep Total Protein 4.7 L Albumin 2.1 L Prealbumin Cholesterol LDL Cholesterol Direct HDL Cholesterol Vitamin B12 Folate Urine WBC (Auto) Urine Creatinine Crossmatch 03/26/22 03/27/22 03/27/22 23:39 02:56 05:07 WBC RBC Hgb Hct MCH RDW Plt Count Lymph % (Auto) Lymph # (Auto) Seg Neutrophils % Seg Neuts % (Manual) Lymphocytes % (Manual) Nucleated RBC % Seg Neutrophils # Seg Neutrophils # Man Lymphocytes # (Manual) Monocytes # (Manual) Eosinophils # (Manual) Basophils # (Manual) PT INR D-Dimer Heparin Anti-Xa Level ABG pH 7.304 L ABG pO2 93.0 H ABG HCO3 17.2 L ABG O2 Saturation ABG Base Excess -8.4 L ABG Hemoglobin 8.3 L Oxyhemoglobin Sodium 136 L Potassium Chloride 93.8 L Carbon Dioxide 17 L BUN 141 H Creatinine 2.3 H Glucose 164 H POC Glucose 136 H Lactic Acid Uric Acid Calcium 7.4 L Phosphorus 12.40 H Magnesium Ferritin AST 54 H ALT Alkaline Phosphatase 175 H Lactate Dehydrogenase Total Creatine Kinase CK-MB (CK-2) Troponin T NT-Pro-B Natriuret Pep Total Protein 4.9 L Albumin 2.1 L Prealbumin Cholesterol LDL Cholesterol Direct HDL Cholesterol Vitamin B12 Folate Urine WBC (Auto) Urine Creatinine Crossmatch 03/27/22 03/27/22 03/28/22 05:17 05:17 03:55 WBC 41.8 H* RBC 2.69 L Hgb 7.6 L Hct 24.1 L MCH RDW 17.9 H Plt Count 511 H Lymph % (Auto) Lymph # (Auto) Seg Neutrophils % Seg Neuts % (Manual) Lymphocytes % (Manual) 2.0 L Nucleated RBC % 26.5 H Seg Neutrophils # Seg Neutrophils # Man 31.5 H Lymphocytes # (Manual) 0.9 L Monocytes # (Manual) 1.4 H Eosinophils # (Manual) Basophils # (Manual) PT INR D-Dimer Heparin Anti-Xa Level 0.25 L ABG pH 7.220 L ABG pO2 44.8 L ABG HCO3 17.3 L ABG O2 Saturation 66.5 L ABG Base Excess -9.7 L ABG Hemoglobin 7.5 L Oxyhemoglobin 64.7 L Sodium Potassium Chloride Carbon Dioxide BUN Creatinine Glucose POC Glucose Lactic Acid Uric Acid Calcium Phosphorus Magnesium Ferritin AST ALT Alkaline Phosphatase Lactate Dehydrogenase Total Creatine Kinase CK-MB (CK-2) Troponin T NT-Pro-B Natriuret Pep Total Protein Albumin Prealbumin Cholesterol LDL Cholesterol Direct HDL Cholesterol Vitamin B12 Folate Urine WBC (Auto) Urine Creatinine Crossmatch 03/28/22 03/28/22 03/28/22 04:17 04:17 04:17 WBC RBC Hgb 7.6 L Hct 24.0 L MCH RDW Plt Count 491 H Lymph % (Auto) Lymph # (Auto) Seg Neutrophils % Seg Neuts % (Manual) Lymphocytes % (Manual) Nucleated RBC % Seg Neutrophils # Seg Neutrophils # Man Lymphocytes # (Manual) Monocytes # (Manual) Eosinophils # (Manual) Basophils # (Manual) PT INR D-Dimer Heparin Anti-Xa Level 0.26 L ABG pH ABG pO2 ABG HCO3 ABG O2 Saturation ABG Base Excess ABG Hemoglobin Oxyhemoglobin Sodium 134 L Potassium Chloride 91.9 L Carbon Dioxide 16 L BUN 151 H Creatinine 2.6 H Glucose 143 H POC Glucose Lactic Acid Uric Acid Calcium 7.3 L Phosphorus Magnesium Ferritin AST ALT Alkaline Phosphatase Lactate Dehydrogenase Total Creatine Kinase CK-MB (CK-2) Troponin T NT-Pro-B Natriuret Pep Total Protein Albumin Prealbumin Cholesterol LDL Cholesterol Direct HDL Cholesterol Vitamin B12 Folate Urine WBC (Auto) Urine Creatinine Crossmatch 03/28/22 03/28/22 04:17 06:20 WBC 52.7 H* RBC 2.76 L Hgb 7.7 L Hct 25.4 L MCH RDW 18.4 H Plt Count 510 H Lymph % (Auto) Lymph # (Auto) Seg Neutrophils % Seg Neuts % (Manual) Lymphocytes % (Manual) Nucleated RBC % Seg Neutrophils # Seg Neutrophils # Man Lymphocytes # (Manual) Monocytes # (Manual) Eosinophils # (Manual) Basophils # (Manual) PT INR D-Dimer Heparin Anti-Xa Level ABG pH 7.241 L ABG pO2 106.1 H ABG HCO3 16.2 L ABG O2 Saturation ABG Base Excess -10.3 L ABG Hemoglobin 7.8 L Oxyhemoglobin 94.8 L Sodium Potassium Chloride Carbon Dioxide BUN Creatinine Glucose POC Glucose Lactic Acid Uric Acid Calcium Phosphorus Magnesium Ferritin AST ALT Alkaline Phosphatase Lactate Dehydrogenase Total Creatine Kinase CK-MB (CK-2) Troponin T NT-Pro-B Natriuret Pep Total Protein Albumin Prealbumin Cholesterol LDL Cholesterol Direct HDL Cholesterol Vitamin B12 Folate Urine WBC (Auto) Urine Creatinine Crossmatch Chest x-ray: image reviewed Allied health notes reviewed: RT
[2022-03-29] MEDS: VANCOMYCIN 250 MG/10 ML ORAL LIQD FEEDTUBE SCH (00:07)
[2022-03-29] MEDS: BICITRA ORAL LIQD 30ML PO SCH (00:08)
[2022-03-29] MEDS: metroNIDAZOLE/NS 500 MG/100 ML 500 MG/100 ML BAG IV SCH (02:26)
[2022-03-29] MEDS: NORepinephrine/NS 8 MG-250 ML 8 MG/250 ML INFUS..BTL IV SCH (02:27)
[2022-03-29 03:56] LABS: ABG Base Excess -10.7 mmol/L (-2.0-3.0); ABG HCO3 16.4 mmol/L (20.0-26.0); ABG Methemoglobin 0.5 % (0.0-1.5); ABG Oxygen Saturation 97.3 % (95.0-99.0); ABG PCO2 42.2 mm Hg; ABG PH 7.207 pH Units (7.350-7.450); ABG PO2 105.3 mm Hg (80.0-90.0)
[2022-03-29] MEDS ORDERED: ATROPINE 0.1% (1 MG/10 ML) CARDIAC SYRINGE ONE ×2 (04:37→04:40)
[2022-03-29] MEDS ORDERED: SODIUM BICARB 8.4% 50 MEQ/50 ML SYRINGE IV ONE (04:40)
[2022-03-29] MEDS ORDERED: EPINEPHrine 1 MG/10 ML SYRINGE ONE (04:40)
[2022-03-29] MEDS ORDERED: CALCIUM GLUCONATE 1000 MG/10 ML INJ ONE (04:40)
[2022-03-29] MEDS ORDERED: EPINEPHrine 1 MG/1 ML 8 MG in SODIUM CHLORIDE 0.9% 250ML 242 ML IV SCH (05:00)
[2022-03-29 05:18] VITALS: BP 60/35
--- NOTE | 2022-03-29 05:21 | Death Note ---
Note Date of : 03/29/22 Time of : 04:59 Time Pronounced: 04:59 - Preliminary Cause of (problem) (1) Sepsis Preliminary cause of CODE BLUE was called. Patient was found asystole. CPR was given as per ACLS protocol. For epinephrine, 2 bicarb, 2 atropine and 1 calcium was given. Patient failed to regain ROSC. Patient has no pulse no blood pressure. Patient at 4:59 AM on March 29, 2022 due to cardiopulmonary arrest, sepsis, respiratory failure, elevated troponin. Prognosis was poor. Family is notified (2) CHF (congestive heart failure) Preliminary cause of (3) Elevated troponin Preliminary cause of (4) Hyponatremia Preliminary cause of (5) Hypoxia Preliminary cause of (6) Pneumonia Preliminary cause of (7) Respiratory failure Preliminary cause of
[2022-03-29] MEDS ORDERED: ATROPINE 0.1% (1 MG/10 ML) CARDIAC SYRINGE IV ONE (05:45)
--- NOTE | 2022-03-29 07:30 | Death Summary ---
Summary - Providers Consults: 03/10/22 02:57 Consult to Dietitian/Nutrition [CONS] Routine Physician Instructions: Reason For Exam: Reason for Consult: Diet education Consult to Physician [CONS] Routine Comment: Consulting Provider: THOMAS TAYLOR Physician Instructions: Reason For Exam: Pneumonia,Sepsis 03/10/22 03:41 Consult to Physician [CONS] Stat Comment: Consulting Provider: J LUIS ROLDAN Physician Instructions: Reason For Exam: hyponatremia 03/10/22 04:40 Consult to Physician [CONS] Routine Comment: Consulting Provider: NEHA MENDOZA Physician Instructions: Reason For Exam: Pneumonia, sepsis, PUI 03/10/22 08:07 Consult to Physician [CONS] Routine Comment: Consulting Provider: RUT RICHARD Physician Instructions: Reason For Exam: Elevated troponin and BMP, possible CHF 03/10/22 11:03 Consult to Dietitian/Nutrition [CONS] Routine Physician Instructions: Reason For Exam: Reason for Consult: Evaluate nutritional intake 03/10/22 12:50 Consult to Dietitian/Nutrition [CONS] Routine Physician Instructions: Reason For Exam: Reason for Consult: Write/Manage Tube Feeding 03/12/22 10:05 Consult to Physician [CONS] Routine Comment: Consulting Provider: GOOD SIFUENTES Physician Instructions: Reason For Exam: AMS, h/o MS Attending: IRWIN BECERRIL MD - summary Date of admission: 03/10/22 02:57 Date of : 03/29/22 Reason for admission: Cardiac arrest, Septic Shock, CAP, Fulminant C Diff , ARDS, TANIYA Significant findings: This is a 61-year-old female with multiple sclerosis and seizure disorder who presented to emergency department on 03/10 via EMS for evaluation of shortness of breath and difficulty breathing. Upon arrival of EMS patient's SPO2 was in the 50s and she was hypotensive to 80s over 50s and was started on IV fluids in route and placed on CPAP. Upon arrival to the emergency department patient was placed on BiPAP and work-up in the emergency department included a CXR which showed multifocal pneumonia, lab work revealed hyponatremia, hypokalemia, lactic acidosis, metabolic acidosis and elevated troponins. Patient was started on empiric antibiotics and admitted to the hospital service with Sepsis, acute hypoxic respiratory failure, electrolyte imbalances and elevated troponins with consults to cardiology, pulmonology and nephrology. On 03/10 late in the evening, patient was intubated for hypoxia, Na 132 and on 03/11 she was started on Sodium bicarb gtt, remained on levophed and on antibiotics.On 03/14 she had issues with hypoxia and FiO2 was increased to 100% and she received lasix but levophed was increased in response. She responded slightly to lasix and repeated on 03/15. MRI brain and Cspine were on hold due to desaturation issues and neurology suggested use of steroids if altered mental status was believed to be an MS flare. Patient was is ARDs and FiO2 and PEEP was being titrated to hypoxic episodes. She remained on levophed and was given lasix, albumin and started on midodrine for worsening azotemia and hypotension. Son was kept informed during stay. Unfortunatly maxine later developed c diff infection and was treated with vancomycin, levaquin, flagyl, merrem by ID and she was started on heparin drip for possible pulmonary shunting. Patient required levophed and vasopression during stay and remained on high ventilatory support. Attempts were made to update family yesterday but unable to be reached via phone by Dr. Becerril to discuss goals of care. Unfortunatly patient suffered a cariac arrest and was able to achieve ROSC and time of was ultimately pronounced by night hospitalist. Family was informed. Cardiac arrest Septic Shock Community acquired pneumonia Fulminant C Diff ARDS Acute Kidney Injury likely secondary to acute tubular necrosis Azotemia Acute metabolic encephalopathy Multiple Sclerosis Seizure disorder Hypotension Elevated troponin Moderate Protein Calorie Malnutrition Transaminitis Severe hyponatremia (improved) Anemia Leukocytosis
--- NOTE | 2022-03-29 09:20 | Electrocardiograph Report ---
[facility], [place] Test Date: 2022-03-29 Test Time: 04:25:07 Pat Name: GARCÍA SIFUENTES Department: Room: A254 1 Gender: F Heart Nurse: [id number] : 1960 Requested By: LAURA VALLE Order Number: [id number] Reading MD: Kt Good Measurements Intervals [place] Rate: 59 P: VT: QRS: 3 QRSD: 92 T: 31 QT: 467 QTc: 463 Interpretive Statements SINUS BRADYCARDIA with prolonged 1st degree Low voltage, extremity and precordial leads Nonspecific T abnormalities, anterior leads Partial missing lead(s): V4 Compared to ECG 03/10/2022 01:08:15 Junctional rhythm now present Low QRS voltage now present Sinus rhythm no longer present Prolonged QT interval no longer present T-wave abnormality still present Electronically Signed On 03-29-2022 9:20:35 EDT by Kt Good
== END 2022-03-29 05:15 | DRG 870 ==
LOC: ED 00:53 → CC1 02:57
PROVIDERS: ADMIT Internal Medicine Geriatric Medicine; ATTEND Internal Medicine
PROC: 5A1955Z Respiratory Ventilation, Greater than 96 Consecutive Hours (ICD-10-PCS; principal; 2022-03-10)
PROC: 0BH17EZ Insertion of Endotracheal Airway into Trachea, Via Natural or Artificial Opening (ICD-10-PCS; 2022-03-10)
PROC: 05HM33Z Insertion of Infusion Device into Right Internal Jugular Vein, Percutaneous Approach (ICD-10-PCS; 2022-03-10)
PROC: B543ZZA Ultrasonography of Right Jugular Veins, Guidance (ICD-10-PCS; 2022-03-10)
PROC: 4A033R1 Measurement of Arterial Saturation, Peripheral, Percutaneous Approach (ICD-10-PCS; 2022-03-10)
PROC: 5A09357 Assistance with Respiratory Ventilation, Less than 24 Consecutive Hours, Continuous Positive Airway Pressure (ICD-10-PCS; 2022-03-10)
PROC: 30233N1 Transfusion of Nonautologous Red Blood Cells into Peripheral Vein, Percutaneous Approach (ICD-10-PCS; 2022-03-17)
PROC: 5A12012 Performance of Cardiac Output, Single, Manual (ICD-10-PCS; 2022-03-29)
DX: A41.9 Sepsis, unspecified organism (principal); J96.01 Acute respiratory failure with hypoxia; R65.21 Severe sepsis with septic shock; J18.9 Pneumonia, unspecified organism; I21.4 Non-ST elevation (NSTEMI) myocardial infarction; G93.41 Metabolic encephalopathy; N17.0 Acute kidney failure with tubular necrosis; E87.1 Hypo-osmolality and hyponatremia; E87.2 Acidosis; E44.0 Moderate protein-calorie malnutrition; G82.20 Paraplegia, unspecified; Z20.822 Contact with and (suspected) exposure to COVID-19; E87.6 Hypokalemia; E78.5 Hyperlipidemia, unspecified; G40.909 Epilepsy, unspecified, not intractable, without status epilepticus; G35 Multiple sclerosis; E83.39 Other disorders of phosphorus metabolism; I50.9 Heart failure, unspecified; I46.9 Cardiac arrest, cause unspecified; Z68.29 Body mass index [BMI] 29.0-29.9, adult; Z88.0 Allergy status to penicillin
CPT/HCPCS: 36415; 36600; 70450; 71045; 74018; 76770; 80048; 80053; 80061; 80202; 80307; 81001; 82140; 82306; 82525; 82550; 82553; 82570; 82607; 82728; 82747; 82803; 82947; 82962; 83615; 83690; 83735; 83880; 83930; 83935; 84100; 84134; 84145; 84295; 84300; 84425; 84443; 84484; 84550; 85007; 85014; 85018; 85025; 85027; 85049; 85379; 85520; 85610; 85730; 86140; 86592; 86850; 86900; 86901; 86920; 87040; 87070; 87086; 87205; 87493; 93005; 93306; 93970; 94002; 94003; 95819; G0378; J2354; J3490; J7517; C8929; J0171; J0456; J0461; J0610; J0692; J0696; J1644; J1650; J1720; J1940; J1953; J1956; J2185; J2250; J3010; J3370; J3475; J3480; J7030; J7040; J7050; J7070; P9016; P9047; U0003